=== PATIENT | male | born 1950 | race Caucasian/White ===

== ENCOUNTER → 2018-12-05 | Outpatient (CLI) | payer MEDICARE ==
--- NOTE | 2018-12-06 02:15 | MR ---
EXAMINATION TYPE: MR brain wo con DATE OF EXAM: 12/05/2018 COMPARISON: HISTORY: Memory Loss Standard multiplanar, multisequence MRI departmental protocol Multiplanar, multisequence images of the brain were acquired. Diffusion weighted imaging was performe d. FINDINGS: There is cerebral cortical atrophy. There is no mass effect nor midline shift. There is no sign of intracranial hemorrhage. Brainstem appears intact. There is no evidence of cortical infarct. There are scattered foci of abnormal increased signal in the white matter in both cerebral hemisphere s. Number is approximately 10. The largest measures 8 mm in the left posterior temporal lobe and 10 mm i n the right posterior frontal lobe. Most of the foci are less than 5 mm. There is no evidence of post erior fossa mass. There is mild mucosal thickening in the ethmoid sinus. IMPRESSION: Mild atrophy. Scattered white matter high signal foci are nonspecific and could relate to areas of mi crovascular ischemia or demyelinating disease. No evidence of cortical infarct.
== END | disposition home or self-care (01) ==
LOC: RADMRIMAIN 14:59
PROVIDERS: ATTEND Psychiatry & Neurology Neurology
DX: G31.9 Degenerative disease of nervous system, unspecified (principal); R90.89 Other abnormal findings on diagnostic imaging of central nervous system
CPT/HCPCS: 70551

== ENCOUNTER 2019-06-18 15:24 | Inpatient (IN) | payer MEDICARE ==
[2019-06-18] MEDS ORDERED: MORPHINE SULFATE 4 MG/ML SYRINGE IV STA (16:11)
[2019-06-18] MEDS ORDERED: SODIUM CHLORIDE 0.9% 1,000 ML IV STA (16:11)
[2019-06-18] MEDS ORDERED: ONDANSETRON 4 MG/2 ML VIAL IVP STA (16:11)
--- NOTE | 2019-06-18 16:20 | ED ---
General Adult HPI - General Chief complaint: Recheck/Abnormal Lab/Rx Stated complaint: Weakness Time Seen by Provider: 06/18/19 15:57 Source: patient, RN notes reviewed Mode of arrival: EMS Limitations: no limitations - History of Present Illness Initial comments: This a 68-year-old male presents emergency Department with chief complaint of inability to ambulate. Patient states around 6 PM last night he had this sensation that he describes as going from his head to his feet as a warm tingling feeling. Patient states that she was sitting in his chair when this happened. Patient states he was unable to get up out of his chair after he states from his knee to his feet have this tingling sensation in the patient's pain. Patient states that his been sitting in his recliner for the last 18 hours. Patient was visited by family who provided him Gatorade bottle see urinating. Patient states never any issues like this in the past. He states he normally can ambulate without assistance. He does admit that he cannot ambulate for long periods of time. Patient states the has had multiple back surgeries. Denies any bowel bladder incontinence or retention. He has no complaint abdominal pain, chest pain or palpitations. Patient has not seen a primary care physician in several years. He does not take any current medications. - Related Data Home Medications Medication Instructions Recorded Confirmed Hydrocodone/Acetaminophen [[place] 1 tab PO Q6H PRN 06/19/16 06/19/16 10-325] Previous Rx's Medication Instructions Recorded HYDROcodone/APAP 10-325MG [[place] 1 tab PO Q6H PRN #20 tab 06/19/16 10-325] Allergies Allergy/AdvReac Type Severity Reaction Status Date / Time No Known Allergies Allergy Verified 06/19/16 15:01 Review of Systems ROS Statement: Those systems with pertinent positive or pertinent negative responses have been documented in the HPI. ROS Other: All systems not noted in ROS Statement are negative. Past Medical History Additional Past Medical History / Comment(s): chronic back pain History of Any Multi-Drug Resistant Organisms: None Reported Past Surgical History: Back Surgery, Orthopedic Surgery Past Psychological History: No Psychological Hx Reported Smoking Status: Former smoker Past Alcohol Use History: Occasional Past Drug Use History: None Reported General Exam Limitations: no limitations General appearance: alert, in no apparent distress, obese Head exam: Present: atraumatic, normocephalic, normal inspection Eye exam: Present: normal appearance, PERRL, EOMI. Absent: scleral icterus, conjunctival injection, periorbital swelling ENT exam: Present: normal exam, normal oropharynx, mucous membranes moist Neck exam: Present: normal inspection, full ROM. Absent: tenderness, meningismus, lymphadenopathy Respiratory exam: Present: normal lung sounds bilaterally. Absent: respiratory distress, wheezes, rales, rhonchi, stridor Cardiovascular Exam: Present: regular rate, normal rhythm, normal heart sounds. Absent: systolic murmur, diastolic murmur, rubs, gallop, clicks GI/Abdominal exam: Present: soft, distended, normal bowel sounds, hernia (Reducible umbilical hernia). Absent: tenderness, guarding, rebound, rigid Extremities exam: Present: other (Lower extremities are noted have mild swelling pupils equal bilaterally, equal color equal warmth patient is able to have full range of motion strength 4/5) Neurological exam: Present: alert, oriented X3, CN II-XII intact, reflexes normal. Absent: motor sensory deficit Skin exam: Present: warm, dry, intact, normal color. Absent: rash Course Vital Signs 06/18/19 06/18/19 06/18/19 15:29 17:28 18:29 Temperature 98.3 F Pulse Rate 78 72 78 Respiratory 18 20 18 Rate Blood Pressure 162/85 162/85 158/77 O2 Sat by Pulse 97 Oximetry 06/18/19 19:25 Temperature 99.3 F Pulse Rate 82 Respiratory 17 Rate Blood Pressure 155/78 O2 Sat by Pulse 97 Oximetry Medical Decision Making - Medical Decision Making 68-year-old presented for inability family, has been sitting is sure for greater than 16 hours. After extensive workup patient decided to inform that he is a daily drinker and he stopped drinking yesterday and this is causing his uncontrolled shaking at this time. At this time patient is unsteady is unable to ambulate even with assistance. 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 Patient will be placed on seawall and Ativan along with thiamine replacement - Lab Data Result diagrams: 06/18/19 16:50 06/18/19 16:50 Lab Results 06/18/19 06/18/19 06/18/19 Range/Units 16:50 16:50 16:50 WBC 9.1 (3.8-10.6) k/uL RBC 4.04 L (4.30-5.90) m/uL Hgb 13.7 (13.0-17.5) gm/dL Hct 40.2 (39.0-53.0) % MCV 99.4 (80.0-100.0) fL MCH 33.9 (25.0-35.0) pg MCHC 34.1 (31.0-37.0) g/dL RDW 13.5 (11.5-15.5) % Plt Count (150-450) k/uL Neutrophils % 82 % Lymphocytes % 9 % Monocytes % 7 % Eosinophils % 1 % Basophils % 0 % Neutrophils # 7.4 (1.3-7.7) k/uL Lymphocytes # 0.8 L (1.0-4.8) k/uL Monocytes # 0.7 (0-1.0) k/uL Eosinophils # 0.1 (0-0.7) k/uL Basophils # 0.0 (0-0.2) k/uL PT (9.0-12.0) sec INR (<1.2) APTT (22.0-30.0) sec Sodium 138 (137-145) mmol/L Potassium 3.4 L (3.5-5.1) mmol/L Chloride 100 (98-107) mmol/L Carbon Dioxide 26 (22-30) mmol/L Anion Gap 12 mmol/L BUN 14 (9-20) mg/dL Creatinine 1.10 (0.66-1.25) mg/dL Est GFR (CKD-EPI)AfAm 81 (>60 ml/min/1.73 sqM) Est GFR (CKD-EPI)NonAf 70 (>60 ml/min/1.73 sqM) Glucose 100 H (74-99) mg/dL Plasma Lactic Acid Gerardo 1.0 (0.7-2.0) mmol/L Calcium 9.1 (8.4-10.2) mg/dL Total Bilirubin 2.2 H (0.2-1.3) mg/dL AST 75 H (17-59) U/L ALT 42 (21-72) U/L Alkaline Phosphatase 73 (38-126) U/L Creatine Kinase 616 H (55-170) U/L Total Protein 6.8 (6.3-8.2) g/dL Albumin 4.0 (3.5-5.0) g/dL Amylase 31 (30-110) U/L Lipase 163 (23-300) U/L Urine Color Urine Appearance (Clear) Urine pH (5.0-8.0) Ur Specific [place] (1.001-1.035) Urine Protein (Negative) Urine Glucose (UA) (Negative) Urine Ketones (Negative) Urine Blood (Negative) Urine Nitrite (Negative) Urine Bilirubin (Negative) Urine Urobilinogen (<2.0) mg/dL Ur Leukocyte Esterase (Negative) Urine RBC (0-5) /hpf Urine WBC (0-5) /hpf Ur Squamous Epith Cells (0-4) /hpf Amorphous Sediment (None) /hpf Urine Bacteria (None) /hpf Hyaline Casts (0-2) /lpf Urine Mucus (None) /hpf 06/18/19 06/18/19 Range/Units 16:50 19:25 WBC (3.8-10.6) k/uL RBC (4.30-5.90) m/uL Hgb (13.0-17.5) gm/dL Hct (39.0-53.0) % MCV (80.0-100.0) fL MCH (25.0-35.0) pg MCHC (31.0-37.0) g/dL RDW (11.5-15.5) % Plt Count (150-450) k/uL Neutrophils % % Lymphocytes % % Monocytes % % Eosinophils % % Basophils % % Neutrophils # (1.3-7.7) k/uL Lymphocytes # (1.0-4.8) k/uL Monocytes # (0-1.0) k/uL Eosinophils # (0-0.7) k/uL Basophils # (0-0.2) k/uL PT 10.7 (9.0-12.0) sec INR 1.0 (<1.2) APTT 24.9 (22.0-30.0) sec Sodium (137-145) mmol/L Potassium (3.5-5.1) mmol/L Chloride (98-107) mmol/L Carbon Dioxide (22-30) mmol/L Anion Gap mmol/L BUN (9-20) mg/dL Creatinine (0.66-1.25) mg/dL Est GFR (CKD-EPI)AfAm (>60 ml/min/1.73 sqM) Est GFR (CKD-EPI)NonAf (>60 ml/min/1.73 sqM) Glucose (74-99) mg/dL Plasma Lactic Acid Gerardo (0.7-2.0) mmol/L Calcium (8.4-10.2) mg/dL Total Bilirubin (0.2-1.3) mg/dL AST (17-59) U/L ALT (21-72) U/L Alkaline Phosphatase (38-126) U/L Creatine Kinase (55-170) U/L Total Protein (6.3-8.2) g/dL Albumin (3.5-5.0) g/dL Amylase (30-110) U/L Lipase (23-300) U/L Urine Color Yellow Urine Appearance Clear (Clear) Urine pH 5.5 (5.0-8.0) Ur Specific [place] 1.015 (1.001-1.035) Urine Protein 1+ H (Negative) Urine Glucose (UA) Negative (Negative) Urine Ketones 2+ H (Negative) Urine Blood Large H (Negative) Urine Nitrite Negative (Negative) Urine Bilirubin Negative (Negative) Urine Urobilinogen <2.0 (<2.0) mg/dL Ur Leukocyte Esterase Negative (Negative) Urine RBC 95 H (0-5) /hpf Urine WBC 2 (0-5) /hpf Ur Squamous Epith Cells <1 (0-4) /hpf Amorphous Sediment Occasional H (None) /hpf Urine Bacteria Occasional H (None) /hpf Hyaline Casts 4 H (0-2) /lpf Urine Mucus Rare H (None) /hpf Disposition Clinical Impression: Alcohol withdrawal, Elevated creatine kinase, Dehydration, Unable to ambulate Disposition: ADMITTED IP TO THIS [facility] Condition: Fair Referrals: None,Stated [Primary Care Provider] - 1-2 days
[2019-06-18 17:05] LABS: Basophils % (A) 0 %; Eosinophils # (A) 0.1 k/uL (0-0.7); Eosinophils % (A) 1 %; HCT 40.2 % (39.0-53.0); HGB 13.7 gm/dL (13.0-17.5); Lymphocytes # (A) 0.8 k/uL (1.0-4.8); Lymphocytes % (A) 9 %; MCH 33.9 pg (25.0-35.0); MCHC 34.1 g/dL (31.0-37.0); MCV 99.4 fL (80.0-100.0); Mean Platelet Volume 10.4; Monocytes # (A) 0.7 k/uL (0-1.0); Monocytes % (A) 7 %; Neutrophils # (A) 7.4 k/uL (1.3-7.7); Neutrophils % (A) 82 %; RBC 4.04 m/uL (4.30-5.90); RDW 13.5 % (11.5-15.5); WBC 9.1 k/uL (3.8-10.6)
[2019-06-18 17:12] LABS: Calcium 9.1 mg/dL (8.4-10.2); Potassium 3.4 mmol/L (3.5-5.1); Total Bilirubin 2.2 mg/dL (0.2-1.3); Total Protein 6.8 g/dL (6.3-8.2)
[2019-06-18 17:16] LABS: Partial Thromboplastin Time 24.9 sec (22.0-30.0); Prothrombin Time 10.7 sec (9.0-12.0)
--- NOTE | 2019-06-18 18:36 | XR ---
EXAMINATION TYPE: XR lumbar spine 2 or 3V DATE OF EXAM: 06/18/2019 COMPARISON: NONE HISTORY: Leg weakness TECHNIQUE: 3 views FINDINGS: Vertebra have normal alignment. Disc spaces are narrowed. There is degenerative spurring of the endplates. Posterior elements are intact. There is no compression fracture. Sacroiliac joints ap pear intact. IMPRESSION: Moderate multilevel spondylotic changes. No fracture seen.
[2019-06-18 19:40] LABS: Amorphous Sediment,Urine Occasional /hpf; Appearance,Urine Clear (Clear); Bacteria,Urine Occasional /hpf; Bilirubin,Urine Negative (Negative); Blood,Urine Large (Negative); Color,Urine Yellow; Glucose,Urine (UA) Negative (Negative); Hyaline Casts,Urine 4 /lpf (0-2); Ketones,Urine 2+ (Negative); Leukocyte Esterase,Urine Negative (Negative); Mucus,Urine Rare /hpf; Nitrite,Urine Negative (Negative); PH, Urine 5.5 (5.0-8.0); Protein,Urine 1+ (Negative); RBC,Urine 95 /hpf (0-5); Specific Gravity,Urine 1.015 (1.001-1.035); Squamous Epithelial Cell,Urine <1 /hpf (0-4); Urobilinogen,Urine <2.0 mg/dL (<2.0)
[2019-06-18] MEDS ORDERED: THIAMINE 100 MG/ML 2 ML VIAL IM STA (19:58)
[2019-06-18] MEDS ORDERED: LORazepam 2 MG/ML INJ IV PRN (19:58)
[2019-06-18] MEDS ORDERED: NALOXONE 0.4 MG/ML 1 ML VIAL IV PRN (20:02)
[2019-06-18] MEDS ORDERED: ONDANSETRON 4 MG/2 ML VIAL IVP PRN (20:02)
[2019-06-18] MEDS ORDERED: MORPHINE SULFATE 4 MG/ML SYRINGE IV PRN (20:02)
[2019-06-18] MEDS: LORazepam 2 MG/ML INJ IV PRN (20:20)
[2019-06-18] MEDS ORDERED: SODIUM CHLORIDE 0.9% 1,000 ML with MVI, ADULT NO.4 WITH VIT K 10 ML, THIAMINE 100 MG, F... IV ONE ×4 (20:30)
[2019-06-19] MEDS: SODIUM CHLORIDE 0.9% 1,000 ML IV SCH ×4 (00:10→20:21)
[2019-06-19] MEDS: THIAMINE 100 MG TAB PO SCH ×3 (00:17→17:25)
[2019-06-19] MEDS: LORazepam 2 MG/ML INJ IV PRN ×6 (00:18→17:26)
[2019-06-19] MEDS ORDERED: POTASSIUM CHLORIDE ER 20 MEQ TAB.ER PO STA (09:21)
[2019-06-19] MEDS: FOLIC ACID 1 MG TAB PO SCH (09:28)
[2019-06-19] MEDS: NON FORMULARY DRUG (Vitamin B Complex [Vitamin B Complex] 1 CAP) PO SCH (09:29)
[2019-06-19] MEDS: amLODIPine 5 MG TAB PO SCH ×2 (09:29→09:39)
[2019-06-19] MEDS: CHOLECALCIFEROL 1,000 UNIT TAB PO SCH (09:29)
[2019-06-19] MEDS ORDERED: RX INFO: IV CONTRAST WAS GIVEN 1 EACH MISC MISCELLANE PRN (10:29)
[2019-06-19] MEDS ORDERED: TEMAZEPAM 15 MG CAP PO PRN (12:31)
[2019-06-19] MEDS: HYDROcodone/APAP 5-325MG 1 EACH TAB PO PRN ×2 (12:37→20:20)
--- NOTE | 2019-06-19 13:46 | US ---
EXAMINATION TYPE: US carotid duplex BILAT DATE OF EXAM: 06/19/2019 COMPARISON: NONE CLINICAL HISTORY: stroke. TIA EXAM MEASUREMENTS: RIGHT: Peak Systolic Velocity (PSV) cm/sec ----- Right CCA: 41.6 ----- Right ICA: 160.8 ----- Right ECA: 70.7 ICA/CCA ratio: 3.9 RIGHT: End Diastole cm/sec ----- Right CCA: 0 ----- Right ICA: 30.7 ----- Right ECA: 11.1 LEFT: Peak Systolic Velocity (PSV) cm/sec ----- Left CCA: 64.2 ----- Left ICA: 82.3 ----- Left ECA: 78.4 ICA/CCA ratio: 1.3 LEFT: End Diastole cm/sec ----- Left CCA: 17.6 ----- Left ICA: 21.5 ----- Left ECA: 12.4 VERTEBRALS (direction of flow): Right Vertebral: Antegrade Left Vertebral: Antegrade Rhythm: Normal Right ICA vessels drive deep. No significant stenosis seen IMPRESSION: 1. There is a 50-70% stenosis involving the proximal right ICA. Abnormal waveforms noted. Recommend c orrelation with CTA or MRA of the carotid arteries. Criteria for Assigning % of Stenosis / Diameter reduction (Estimation based on the indirect measurements of the internal carotid artery velocities (ICA PSV). 1. Normal (no stenosis)=ICA PSV < 125 cm/s: ratio < 2.0: ICA EDV<40 cm/s. 2. Less than 50% stenosis=ICA PSV < 125 cm/s: ratio < 2.0: ICA EDV<40 cm/s. 3. 50 to 69% stenosis=ICA PSV of 125 to 230 cm/s: ration 2.0 ? 4.0: ICA EDV 40-100 cm/s. 4. Greater than 70% stenosis to near occlusion= ICA PSV > 230 cm/s: ratio > 4.0: ICA EDV > 100 cm/s. 5. Near occlusion= ICA PSV velocities may be low or undetectable: variable ratio and ICA EDV. 6. Total occlusion=unable to detect flow.
--- NOTE | 2019-06-19 14:42 | CT ---
EXAMINATION TYPE: CT brain w con DATE OF EXAM: 06/19/2019 COMPARISON: None HISTORY: Neuro Defects CT DLP: 1227 mGycm Automated exposure control for dose reduction was used. CONTRAST: CT scan of the head is performed with IV Contrast, patient injected with 100 mL of Isovue 300. Helica l through the brain FINDINGS: There is no abnormal enhancing mass or midline shift identified. The ventricles and sulci are within normal limits in size. The globes are intact and the visualized sinuses are clear. Mild cortical at rophy is likely age-related. Periventricular white matter low-attenuation is noted. IMPRESSION: Negative contrast enhanced head CT exam. Age-related atrophy and probable chronic small vessel ischem ia.
--- NOTE | 2019-06-19 15:22 | HP ---
HISTORY AND PHYSICAL DATE OF SERVICE: 06/19/2019. CHIEF COMPLAINTS: Weakness. HISTORY OF PRESENT ILLNESS: This is a 68-year-old gentleman with a past medical history of multiple medical problems including history of hypertension, history of EtOH abuse, back surgery, DJD, not being followed by any primary physician in the outpatient setting, was drinking heavily, but the patient stopped alcohol about 3 - 4 days ago. Patient is complaining of weak and the patient also tingling feeling in the feet, and the patient came to [facility], admitted for evaluation and treatment. Patient is slightly tremulous. There is no history of fever or rigors. There is no history of headache, loss or consciousness or seizures at this time. The initial evaluation including CAT scan of the spine is pending at this time. There is no history of fever. PAST MEDICAL HISTORY: History of EtOH, hypertension, chronic back pain, DJD. MEDICATIONS: Prior to admission home medications are: 1. Vitamin B complex 1 p.o. daily. 2. Vitamin D3 one thousand daily. ALLERGIES: None. FAMILY HISTORY: No history of heart disease or strokes in the family. SOCIAL HISTORY: No history of smoking, alcohol as mentioned. REVIEW OF SYSTEMS: ENT: Diminished hearing, diminished vision. CARDIOVASCULAR: No angina or palpitations. RESPIRATORY: As mentioned earlier. GI: No nausea. : No dysuria. NERVOUS SYSTEMS: No numbness or weakness. ALLERGY/IMMUNOLOGY: No asthma or hayfever. MUSCULOSKELETAL: As mentioned earlier. HEMATOLOGY: No history of anemia. ENDOCRINE: No history of diabetes or hypothyroidism. CONSTITUTIONAL: As mentioned earlier. DERMATOLOGY: Negative. RHEUMATOLOGY: Negative. PSYCHIATRY: As mentioned earlier. PHYSICAL EXAMINATION: Alert and oriented x3, pulse 77, blood pressure 188/78, respiration 20, temp 98.2, pulse ox 98% on room air. HEENT: Conjunctivae normal. NECK: No jugular venous distension. CARDIOVASCULAR SYSTEM: S1, S2, muffled. RESPIRATION: Breath sounds diminished on the bases, no rhonchi, no crackles. ABDOMEN: Soft, nontender. No mass palpable, obese. LEGS: No edema, no swelling. NERVOUS SYSTEM: Mild diffuse weakness. LYMPHATICS: No lymph node enlargement in the neck or axillae. SKIN: No ulcer, rash or bleeding. JOINTS: No active deforming arthropathy. LABS: WBC is 9.2, hemoglobin is 13.7 sodium 130, potassium 3.4. Bilirubin is 2.2, AST is 75. ASSESSMENT: 1. Acute delirium tremens, possibly secondary to alcohol withdrawal. 2. Weakness, rule out transient ischemic attack. 3. Alcoholic hepatitis with elevated bilirubin and as well as AST. 4. Mild rhabdomyolysis, the creatinine kinase is 16. 5. Mild hypokalemia. 6. Hypertension. 7. Obesity, body mass index 42. 8. History of chronic back pain. 9. Degenerative joint disease. 10.History of laminectomy. RECOMMENDATION: In this 68-year-old gentleman who presented with multiple complex medical issues, will monitor the patient closely. Continue with the current medications, symptomatic management and CIWA protocol. Otherwise, alcohol withdrawal precaution, DT precautions. Neurology evaluation, neurovascular workup. Prognosis guarded because of multiple complex medical issues. Further recommendations to follow. Also recommend the patient to alcohol cessation and follow with primary physician in the outpatient setting. Also further recommendations to follow. See orders for details. MMODL / IJN: [id number] /
[2019-06-19] MEDS ORDERED: cloNIDine HCL 0.1 MG TAB PO PRN (16:56)
[2019-06-19] MEDS: cloNIDine HCL 0.1 MG TAB PO SCH ×2 (17:25→22:24)
[2019-06-19] MEDS: HEPARIN SODIUM,PORCINE 5,000 UNIT/ML 1 ML VIAL SQ SCH (20:20)
--- NOTE | 2019-06-19 22:55 | P.CNNES ---
History of Present Illness Consult date: 06/19/19 Reason for Consult: Change in neurologic status Chief complaint: b/l LE weakness History of Present Illness: HISTORY OF PRESENT ILLNESS: Thank you for allowing me to evaluate Mr. Milton Navarro. Mr. Navarro is a 68-year-old male with past medical history of chronic back pain, presenting to [facility] with chief complaint of inability to ambulate and warm/tingling feeling from his head down to his feet, consulted neurology for LE weakness. Patient states that last night, he was about to sit on a chair when he suddenly had a sensation of "veil coming over me" from head down to the toes. This sensation went away within seconds, but when he tried to stand to walk it off, he realized that he couldn't stand up. Patient has never had similar symptoms in the past. Did not lose consciousness, had any urinary/bowel incontinence, headache, double/blurry vision, no abnormal movement of his extremities. Patient reports that he's been having numbness in his b/l LE, up to the mid-hanks area since about 1.5 years ago. He had looked it up online and thought maybe it was alcoholic neuropathy. PAST MEDICAL HISTORY: chronic back pain PAST SURGICAL HISTORY: Back surgery HOME MEDICATIONS: Vitamin D3, vitamin B complex ALLERGIES: NKDA SOCIAL HISTORY: Former smoker. Endorses EtOH abuse history and current EtOH abuse. Last EtOH intake about 1 week ago on 06/12/19. Drank 5 bottles of 24-oz 8% beer everyday. Denies any history of seizures or being intubated with EtOH withdrawal. Denies any drug abuse history. PHYSICAL EXAMINATION: VITAL SIGNS: T 98.6 HR 79 RR 20 BP 151/82 O2 sat 99% on RA GEN.: NAD, pleasant and cooperative but anxious HEENT: NCAT, sclera without icterus NECK: Supple SKIN AND EXTREMITIES: Warm to touch, no edema NEURO: MENTAL STATUS: Patient alert and oriented to self, place, time. Able to name the current president. Speech fluent, able to name and repeat, following all commands readily. No right and left disorientation, neglect. CRANIAL NERVES II THROUGH XII: II: Pupils are equal and reactive to light sy mmetrically. No afferent pupillary defect. Visual dooley are intact. III, IV, : No ptosis. Extraocular movements full. No nystagmus. V: Facial sensation intact from V1-3. VII. No clear facial asymmetry. VIII: Hearing intact to finger rub bilaterally. IX, X: Symmetric palate elevation. XI: Shoulder shrug intact. XII: Tongue midline without fasciculation or atrophy. MOTOR: Normal bulk/tone. No pronator drift. Tremor present in b/l UE. Able to lift b/l proximal and distal LE against gravity but difficulty standing up or taking any steps forward. SENSORY: Decreased to light touch in b/l LE below the mid hanks. REFLEXES: 1+ throughout. Toes are downgoing. COORDINATION: Finger to nose intact. No dysmetria. GAIT: Able to stand while using walker as support but still with significant difficulty. DIAGNOSTIC TESTING: LABORATORY: WBC 9.1 hemoglobin 13.7 PT 10.7 INR 1.0 sodium 138 potassium 3.4 chloride 100 bicarb 26 BUN 14 creatinine 1.10 glucose 100 AST 75 ALT 42 alk phos 73 CK 616 urinalysis large blood, 2+ ketones IMAGING: CT head with contrast 06/19/2019: Negative study. Age-related atrophy and small vessle disease. MRI brain without contrast 12/06/2018: Mild atrophy. Scattered white matter high signal foci are nonspecific and could relate areas of microvascular ischemia or demyelinating disease. No evidence of cortical infarct. ASSESSMENT: Mr. Navarro is a 68-year-old male with past medical history of chronic back pain, presenting to [facility] with chief complaint of inability to ambulate and warm/tingling feeling from his head down to his feet, consulted neurology for LE weakness. Difficult to come up with an assessment for patient's report of "veil coming down." Patient did not have any seizure-like symptoms and no LOC. Patient with more proximal than distal LE weakness. High on the differential at this time is myopathy, and differential for myopathy include inflammatory (such as polymyositis, dermatomyositis, inclusion body myositis), infection, toxic (such as steroids, statins, EtOH, amiodarone, etc) and systemic (such as thyroid disorder, autoimmune, amyloid). highest on my differential at this time is toxic myopathy from EtOH abuse. RECOMMENDATIONS: 1. Will order ESR, CRP, CK, KASIE, RF, TSH, LFT, parathyroid hormone 2. Patient will need follow up with neurology within 1-2 weeks of discharge, especially for EMG/NCS and muscle biopsy 3. Neurology will continue to follow. Past Medical History Past Medical History: Hypertension Additional Past Medical History / Comment(s): EtOH abuse, chronic back pain History of Any Multi-Drug Resistant Organisms: None Reported Past Surgical History: Back Surgery, Orthopedic Surgery, Tonsillectomy Additional Past Surgical History / Comment(s): 3 back laminectomies, hand surgery s/p trauma to reattatch tendons Past Anesthesia/Blood Transfusion Reactions: No Reported Reaction Past Psychological History: No Psychological Hx Reported Smoking Status: Never smoker Past Alcohol Use History: Occasional Past Drug Use History: None Reported Medications and Allergies Home Medications Medication Instructions Recorded Confirmed Type Cholecalciferol [Vitamin D3 (25 1,000 unit PO DAILY 06/18/19 06/18/19 History Mcg = 1000 Iu)] Vitamin B Complex 1 cap PO DAILY 06/18/19 06/18/19 History Allergies Allergy/AdvReac Type Severity Reaction Status Date / Time No Known Allergies Allergy Verified 06/18/19 21:29 Physical Examination - Vital Signs Vital Signs: Vital Signs Temp Pulse Pulse Resp BP BP Pulse Ox 06/19/19 12:46 98.6 F 79 20 151/82 99 06/19/19 05:00 98.2 F 77 20 188/78 98 06/19/19 00:10 75 16 06/18/19 23:42 98.4 F 75 16 161/93 97 06/18/19 22:49 97.6 F 83 19 167/82 98 06/18/19 21:10 80 19 156/84 97 06/18/19 20:12 77 20 140/79 97 06/18/19 19:25 99.3 F 82 17 155/78 97 06/18/19 18:29 78 18 158/77 06/18/19 17:28 72 20 162/85 06/18/19 15:29 98.3 F 78 18 162/85 97 Intake and Output 06/18/19 06/19/19 06/19/19 22:59 06:59 14:59 Intake Total 500 Balance 500 Intake: Intake, IV Titration 500 Amount Sodium Chloride 0.9% 1, 500 000 ml @ 100 mls/hr IV . Q10H7M ONE with Mvi, Adult No.4 with Vit K 10 ml with Thiamine 100 mg with Folic Acid 1 mg Rx#: [id number] Other: Voiding Method Urinal Urinal # Voids 2 Weight 140.614 kg Results - Laboratory Findings CBC and BMP: 06/18/19 16:50 06/18/19 16:50 Abnormal Lab Findings: Abnormal Labs 06/18/19 06/18/19 06/18/19 16:50 16:50 19:25 RBC 4.04 L Lymphocytes # 0.8 L Potassium 3.4 L Glucose 100 H Total Bilirubin 2.2 H AST 75 H Creatine Kinase 616 H Urine Protein 1+ H Urine Ketones 2+ H Urine Blood Large H Urine RBC 95 H Amorphous Sediment Occasional H Urine Bacteria Occasional H Hyaline Casts 4 H Urine Mucus Rare H
[2019-06-20] MEDS: HYDROcodone/APAP 5-325MG 1 EACH TAB PO PRN ×2 (05:28→11:54)
[2019-06-20 07:53] LABS: Basophils % (A) 0 %; Eosinophils # (A) 0.1 k/uL (0-0.7); Eosinophils % (A) 1 %; HGB 12.7 gm/dL (13.0-17.5); Lymphocytes # (A) 0.8 k/uL (1.0-4.8); Lymphocytes % (A) 9 %; MCH 33.6 pg (25.0-35.0); MCHC 32.6 g/dL (31.0-37.0); Macrocytosis Slight; Mean Platelet Volume 9.7; Monocytes # (A) 0.7 k/uL (0-1.0); Monocytes % (A) 8 %; Neutrophils # (A) 6.2 k/uL (1.3-7.7); Neutrophils % (A) 79 %; Platelet Count 54 k/uL (150-450); RBC 3.79 m/uL (4.30-5.90); RDW 13.8 % (11.5-15.5)
[2019-06-20 08:29] LABS: African American GFR (CKD) >90 (>60 ml/min/1.73 sqM); Anion Gap 4 mmol/L; Blood Urea Nitrogen 15 mg/dL (9-20); Calcium 8.3 mg/dL (8.4-10.2); Carbon Dioxide 29 mmol/L (22-30); Chloride 104 mmol/L (98-107); Glucose 126 mg/dL (74-99); Potassium 3.3 mmol/L (3.5-5.1); Sodium 137 mmol/L (137-145)
[2019-06-20] MEDS: amLODIPine 5 MG TAB PO SCH (08:37)
[2019-06-20] MEDS: cloNIDine HCL 0.1 MG TAB PO SCH ×3 (08:37→21:55)
[2019-06-20] MEDS: PANTOPRAZOLE 40 MG TABLET PO SCH (08:37)
[2019-06-20] MEDS: HEPARIN SODIUM,PORCINE 5,000 UNIT/ML 1 ML VIAL SQ SCH ×2 (08:38→21:56)
[2019-06-20] MEDS: FOLIC ACID 1 MG TAB PO SCH (08:38)
[2019-06-20] MEDS: SODIUM CHLORIDE 0.9% 1,000 ML IV SCH ×2 (08:38→11:54)
[2019-06-20] MEDS: THIAMINE 100 MG TAB PO SCH ×2 (08:38→16:17)
[2019-06-20] MEDS: CHOLECALCIFEROL 1,000 UNIT TAB PO SCH (08:38)
[2019-06-20] MEDS: NON FORMULARY DRUG (Vitamin B Complex [Vitamin B Complex] 1 CAP) PO SCH (08:39)
[2019-06-20 09:17] LABS: C Reactive Protein 36.6 mg/L (<10.0)
[2019-06-20 10:13] VITALS: BMI 42.0
[2019-06-20 10:53] LABS: T4, Free (Free Thyroxine) 1.01 ng/dL (0.78-2.19)
--- NOTE | 2019-06-20 12:01 | ECHOF ---
Referral Reason:Stroke MEASUREMENTS -------- HEIGHT: 180.3 cm WEIGHT: 140.6 kg BP: Ao Diam: 3.7 cm (2.0 - 3.7) AV Cusp: 2.3 cm (1.5 - 2.6) LA Diam: 3.6 cm (2.7 - 3.8) MV EXCURSION: 20.304 mm (> 18.000) MV EF SLOPE: 179 mm/s (70 - 150) EPSS: 0.9 cm MV E Malachi: 0.63 m/s MV DecT: 226 ms MV A Malachi: 0.66 m/s MV E/A Ratio: 0.95 RAP: 5.00 mmHg RVSP: 11.24 mmHg FINDINGS -------- Sinus rhythm. This was a technically difficult study with suboptimal views. Grossly normal LV size and systolic function. Unable to comment on regional wall motion. The RV was not well visualized. The left atrium was not well visualized. The right atrium was not well visualized. Lumason used The aortic valve was not well visualized. The mitral valve was not well visualized. The tricuspid valve was not well visualized. The pulmonic valve was not well visualized. CONCLUSIONS -------- 1. Sinus rhythm. 2. This was a technically difficult study with suboptimal views. 3. Grossly normal LV size and systolic function. Unable to comment on regional wall motion. 4. The RV was not well visualized. 5. The left atrium was not well visualized. 6. The right atrium was not well visualized. 7. Lumason used 8. The aortic valve was not well visualized. 9. The mitral valve was not well visualized. 10. The tricuspid valve was not well visualized. 11. The pulmonic valve was not well visualized. FLAVORING MACHINE OPERATOR: Angelita Grimaldo RDCS
[2019-06-20] MEDS ORDERED: POTASSIUM CHLORIDE ER 20 MEQ TAB.ER PO STA (12:27)
[2019-06-20] MEDS: MULTIVITAMINS, THERA 1 EACH TAB PO SCH (12:28)
[2019-06-20] MEDS: LORazepam 1 MG TAB PO PRN (13:13)
[2019-06-20] MEDS: LORazepam 2 MG/ML INJ IV PRN ×2 (13:41→16:17)
[2019-06-20] MEDS: 0.9% NACL WITH KCL 40 MEQ/L 1,000 ML IV SCH (14:58)
--- NOTE | 2019-06-20 16:52 | PN ---
PROGRESS NOTE DATE OF SERVICE: 06/20/2019 This 68-year-old gentleman who was admitted with acute alcohol withdrawal symptoms and delirium tremens is going through active DTs. Patient is confused, combative and restless. CIWA protocol has been given at this time. A 2D echo with Doppler was done which showed grossly normal LV. The details could not be estimated because of an incomplete study. Otherwise the patient is being closely monitored at this time. Hemoglobin is 12.7, potassium 3.3. UA has some hematuria. Past medical history reviewed. Review of systems could not be taken; the patient is confused at this time. CURRENT MEDICATIONS: Reviewed. They include: 1. [employer] 5 mg q.6 p.r.n. 2. Norvasc 5 mg p.o. daily. 3. Vitamin D3 1000 daily. 4. Catapres 0.1 p.r.n. and 0.1 p.o. t.i.d. 5. Folic acid 1 mg p.o. daily. 6. Heparin 5000 units subcutaneously b.i.d. 7. Ativan p.r.n. per [facility] protocols. 8. Narcan p.r.n. 9. Zofran. 10.Protonix. 11.Restoril. 12.Vitamin B1. PHYSICAL EXAMINATION: Patient is conscious but confused. The patient is hallucinating actively. Pulse 66, blood pressure 167/72, respiration 22, temperature 98.8, pulse ox 98% on room air. HEENT: Conjunctivae normal. NECK: No jugular venous distention. CARDIOVASCULAR SYSTEM: S1, S2 muffled. RESPIRATORY SYSTEM: Breath sounds diminished at the bases. No rhonchi. No crackles. ABDOMEN: Soft, non-tender. No mass palpable. LEGS: No edema. No swelling. NERVOUS SYSTEM: Higher functions as mentioned earlier. Moves all 4 limbs. No focal motor or sensory deficit. LYMPHATICS: No lymph node palpable in neck, axillae or groin. SKIN: No ulcer, rash, bleeding. JOINTS: No active deforming arthropathy. LABS: WBC 8, hemoglobin 12.7. Sodium 137, potassium 3.3. ASSESSMENT: 1. Acute delirium tremens, possibly secondary to alcohol withdrawal. 2. Weakness; possible transient ischemic attack. 3. Alcoholic hepatitis with elevated bilirubin as well as AST. 4. Mild rhabdomyolysis with creatine kinase mildly elevated. 5. Mild hypokalemia. 6. Hypertension. 7. Obesity with body mass index of 42. 8. History of chronic back pain. 9. Degenerative joint disease. 10.History of laminectomy. RECOMMENDATIONS AND DISCUSSION: In this 68-year-old gentleman who presented with multiple complex medical issues, we will monitor the patient closely, continue the current medications, continue with symptomatic treatment. Potassium supplementation. Otherwise, follow closely with Neurology. DVT prophylaxis. Supplement potassium. Otherwise, continue with CIWA protocol. Multivitamins and supplements to be continued. 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 Guarded prognosis because of multiple complex medical issues. Further recommendations to follow. MMODL / IJN: [id number] /
[2019-06-20 17:43] LABS: Rheumatoid Factor 4 IU/mL (0-15)
--- NOTE | 2019-06-20 21:13 | P.PN ---
Progress Note - Text Progress Note Date: 06/20/19 SUBJECTIVE/INTERVAL EVENTS: Patient found with blood all over his body (patient had pulled his IV). He states that he cut himself, and he was thinking that someone was trying to hurt/steal from him (patient's bed was just changed). Patient slightly confused compared to yesterday where he thought he was home tonight. Patient is still following all commands. PHYSICAL EXAMINATION: VITAL SIGNS: T 98.8 HR 66 RR 22 BP 167/72 O2 sat 98% on RA GEN.: NAD, pleasant and cooperative but anxious HEENT: NCAT, sclera without icterus NECK: Supple SKIN AND EXTREMITIES: Warm to touch, no edema NEURO: MENTAL STATUS: Patient alert and oriented to self and time. Confused about where he is. Able to name the current president. Speech fluent, able to name and repeat, following all commands readily. No right and left disorientation, neglect. CRANIAL NERVES II THROUGH XII: III, IV, : No ptosis. Extraocular movements full. VII. No clear facial asymmetry. XI: Shoulder shrug intact. XII: Tongue midline without fasciculation or atrophy. MOTOR: Normal bulk/tone. No pronator drift. Tremor present in b/l UE. Moving all 4 extremities, able to move b/l LE against gravity DIAGNOSTIC TESTING: LABORATORY: WBC 9.1 hemoglobin 13.7 PT 10.7 INR 1.0 sodium 138 potassium 3.4 chloride 100 bicarb 26 BUN 14 creatinine 1.10 glucose 100 AST 75 ALT 42 alk phos 73 CK 616 urinalysis large blood, 2+ ketones CK 616 CRP 36.6 ESR 10 TSH 5.410 fT4 1.01 PTH 39.5 KASIE negative RF 4 IMAGING: CT head with contrast 06/19/2019: Negative study. Age-related atrophy and small vessel disease. MRI brain without contrast 12/06/2018: Mild atrophy. Scattered white matter high signal foci are nonspecific and could relate areas of microvascular ischemia or demyelinating disease. No evidence of cortical infarct. ASSESSMENT: Mr. Navarro is a 68-year-old male with past medical history of chronic back pain, presenting to [facility] with chief complaint of inability to ambulate and warm/tingling feeling from his head down to his feet, consulted neurology for LE weakness. Difficult to come up with an assessment for patient's report of "veil coming down." Patient did not have any seizure-like symptoms and no LOC. Patient with more proximal than distal LE weakness. High on the differential at this time is myopathy, and differential for myopathy include inflammatory (such as polymyositis, dermatomyositis, inclusion body myositis), infection, toxic (such as steroids, statins, EtOH, amiodarone, etc) and systemic (such as thyroid disorder, autoimmune, amyloid). highest on my differential at this time is toxic myopathy from EtOH abuse. With an acute episode following a binge, the symptoms usually resolve within a week or two. Chronic myopathy, where damage is more severe, can take much longer to resolve, requiring weeks or even months for the muscles to recover function. RECOMMENDATIONS: 1. EtOH withdrawal management by primary team including seizure precaution 2. Delirium precaution with sleep hygiene, frequent orientation 3. Patient will need follow up with neurology within 1-2 weeks of discharge, for consideration of EMG/NCS and muscle biopsy 4. Neurology will sign off at this time. Please feel free to contact Neurology again if with additional questions or concerns.
[2019-06-21] MEDS: LORazepam 1 MG TAB PO PRN ×2 (02:29→08:14)
[2019-06-21] MEDS: 0.9% NACL WITH KCL 40 MEQ/L 1,000 ML IV SCH ×3 (03:47→19:41)
[2019-06-21] MEDS: LORazepam 2 MG/ML INJ IV PRN ×3 (04:00→19:40)
[2019-06-21] MEDS: PANTOPRAZOLE 40 MG TABLET PO SCH (08:14)
[2019-06-21] MEDS: THIAMINE 100 MG TAB PO SCH ×2 (08:14→17:24)
[2019-06-21] MEDS: CHOLECALCIFEROL 1,000 UNIT TAB PO SCH (08:14)
[2019-06-21] MEDS: amLODIPine 5 MG TAB PO SCH (08:14)
[2019-06-21] MEDS: cloNIDine HCL 0.1 MG TAB PO SCH ×3 (08:14→20:44)
[2019-06-21] MEDS: FOLIC ACID 1 MG TAB PO SCH (08:14)
[2019-06-21] MEDS: HEPARIN SODIUM,PORCINE 5,000 UNIT/ML 1 ML VIAL SQ SCH ×2 (08:15→20:44)
[2019-06-21] MEDS: NON FORMULARY DRUG (Vitamin B Complex [Vitamin B Complex] 1 CAP) PO SCH (08:15)
[2019-06-21 08:42] LABS: Basophils % (A) 1 %; Eosinophils # (A) 0.1 k/uL (0-0.7); Eosinophils % (A) 1 %; HCT 37.5 % (39.0-53.0); HGB 12.5 gm/dL (13.0-17.5); Lymphocytes # (A) 0.7 k/uL (1.0-4.8); Lymphocytes % (A) 10 %; MCH 34.1 pg (25.0-35.0); MCHC 33.4 g/dL (31.0-37.0); MCV 102.1 fL (80.0-100.0); Macrocytosis Slight; Mean Platelet Volume 7.3; Monocytes # (A) 0.6 k/uL (0-1.0); Monocytes % (A) 8 %; Neutrophils % (A) 78 %; RBC 3.67 m/uL (4.30-5.90); RDW 13.7 % (11.5-15.5); WBC 7.7 k/uL (3.8-10.6)
[2019-06-21 08:49] LABS: Platelet Count 102 k/uL (150-450)
[2019-06-21 08:54] LABS: African American GFR (CKD) >90 (>60 ml/min/1.73 sqM); Anion Gap 4 mmol/L; Blood Urea Nitrogen 11 mg/dL (9-20); Calcium 8.4 mg/dL (8.4-10.2); Carbon Dioxide 28 mmol/L (22-30); Chloride 105 mmol/L (98-107); Glucose 116 mg/dL (74-99); Potassium 3.2 mmol/L (3.5-5.1); Sodium 137 mmol/L (137-145)
[2019-06-21] MEDS: MULTIVITAMINS, THERA 1 EACH TAB PO SCH (12:11)
[2019-06-21] MEDS ORDERED: Potassium Replacement Protocol 1 EACH MISC MISCELLANE PRN (13:58)
[2019-06-21] MEDS: POTASSIUM CHLORIDE ER 20 MEQ TAB.ER PO SCH ×4 (14:28→21:58)
[2019-06-21] MEDS: HYDROcodone/APAP 5-325MG 1 EACH TAB PO PRN (14:30)
--- NOTE | 2019-06-21 17:27 | XR ---
EXAMINATION TYPE: XR abdomen 2V DATE OF EXAM: 06/21/2019 COMPARISON: NONE HISTORY: Abdominal pain TECHNIQUE: 2 views supine and upright FINDINGS: There are multiple dilated gas-filled loops of bowel involving large and small bowel. There is no sign of free air. Lung bases are clear of consolidation. IMPRESSION: Dilated bowel consistent with generalized ileus. There appears to be gas down to the rect um. Mechanical obstruction not entirely excluded. No free air.
--- NOTE | 2019-06-21 21:10 | P.PN ---
Subjective Progress Note Date: 06/21/19 Principal diagnosis: Acute alcohol withdrawal symptoms Delirium Patient is a 68-year-old male admitted with acute alcohol withdrawal symptoms and DTs. Patient is combative and restless. Currently being continued alcohol withdrawal protocol. Patient was seen by neurology for possible seizures likely due to withdrawal symptoms. Patient had 2-D echocardiogram and EEG was done. No antiepileptic medication recommended at this time. 06 21 2019 Patient is still confused and wants to be discharged home. Patient is not able to walk by by himself. PTOT has seen the patient. Otherwise patient is complaining of abdominal pain. Abdominal x-ray showed possible ileus and obstruction cannot be excluded. Patient does have hypokalemia with potassium level III.2 today. Denied any fever or chills. No cough or sputum production. No nausea vomiting or diarrhea. Active Medications Hydrocodone Bitart/Acetaminophen ([place] 5-325) 1 each PO Q6HR PRN PRN Reason: Pain Last Admin: 06/21/19 14:30 Dose: 1 each Documented by: Amlodipine Besylate (Norvasc) 5 mg PO DAILY [facility] Last Admin: 06/21/19 08:14 Dose: 5 mg Documented by: Chlordiazepoxide HCl (Librium) 10 mg PO QID PRN PRN Reason: Alcohol Withdrawal Last Admin: 06/21/19 20:44 Dose: 10 mg Documented by: Cholecalciferol (Vitamin D3 (25 Mcg = 1000 Iu)) 1,000 unit PO DAILY [facility] Last Admin: 06/21/19 08:14 Dose: 1,000 unit Documented by: Clonidine (Catapres) 0.1 mg PO Q4HR PRN PRN Reason: Hypertension Clonidine (Catapres) 0.1 mg PO TID [facility] Last Admin: 06/21/19 20:44 Dose: 0.1 mg Documented by: Folic Acid (Folic Acid) 1 mg PO DAILY [facility] Last Admin: 06/21/19 08:14 Dose: 1 mg Documented by: Heparin Sodium (Porcine) (Heparin) 5,000 unit SQ Q12HR [facility] Last Admin: 06/21/19 20:44 Dose: 5,000 unit Documented by: Potassium Chloride/Sodium Chloride (Ns-Kcl 40 Meq/L Iv Solution) 1,000 mls @ 75 mls/hr IV .[id number] [facility] Last Admin: 06/21/19 19:41 Dose: 75 mls/hr Documented by: Lorazepam (Ativan) 1 mg IV Q2HR PRN PRN Reason: CIWA 8 or 9 Last Admin: 06/21/19 09:56 Dose: 1 mg Documented by: Lorazepam (Ativan) 1 mg IV Q1HR PRN PRN Reason: CIWA 10 to 15 Last Admin: 06/21/19 19:40 Dose: 1 mg Documented by: Lorazepam (Ativan) 1 mg PO Q4H PRN PRN Reason: Agitation or Acute Anxiety Last Admin: 06/21/19 08:14 Dose: 1 mg Documented by: Miscellaneous Information (Potassium Per Protocol) 1 each MISCELLANE DAILY PRN; Protocol PRN Reason: Per Protocol Morphine Sulfate (Morphine Sulfate (Inj)) 4 mg IV Q4HR PRN PRN Reason: Severe Pain Multivitamins (Theragran) 1 each PO DAILY@1200 [facility] Last Admin: 06/21/19 12:11 Dose: Not Given Documented by: Naloxone HCl (Narcan) 0.2 mg IV Q2M PRN PRN Reason: Opioid Reversal Non-Formulary Medication (Vitamin B Complex [Vitamin B Complex]) 1 cap PO DAILY [facility] Last Admin: 06/21/19 08:15 Dose: Not Given Documented by: Ondansetron HCl (Zofran) 4 mg IVP Q8HR PRN PRN Reason: Nausea And Vomiting Pantoprazole Sodium (Protonix) 40 mg PO AC-BRKFST [facility] Last Admin: 06/21/19 08:14 Dose: 40 mg Documented by: Potassium Chloride (K-Dur 20) 20 meq PO Q1HR [facility] Stop: 06/21/19 22:01 Last Admin: 06/21/19 20:44 Dose: 20 meq Documented by: Temazepam (Restoril) 15 mg PO HS PRN PRN Reason: Insomnia Thiamine HCl (Vitamin B-1) 100 mg PO BID-W/MEALS [facility] Last Admin: 06/21/19 17:24 Dose: 100 mg Documented by: Objective - Vital Signs Vital signs: Vital Signs Temp 98.2 F 06/21/19 11:48 Pulse 78 06/21/19 11:48 Resp 16 06/21/19 11:48 BP 144/75 06/21/19 11:48 Pulse Ox 97 06/21/19 11:48 Intake & Output 06/21/19 06/21/19 06/22/19 06:59 18:59 06:59 Intake Total 965 Output Total 100 Balance 865 Intake: Intake, IV Titration 375 Amount 0.9% NaCl with KCl 40 Meq 375 /l 1,000 ml @ 75 mls/hr IV .[id number] [facility] Rx#: [id number] Oral 590 Output: Urine 100 Other: Voiding Method Bedside Commode Bedside Commode Urinal Urinal Diaper Diaper Incontinent Incontinent # Voids 2 3 - Exam PHYSICAL EXAMINATION: Patient is lying in the bed comfortably, no acute distress, awake alert and oriented. Confused and lethargic.. HEENT: Normocephalic. Neck is supple. Pupils reactive. Nostrils clear. Oral cavity is moist. Ears reveal no drainage. Neck reveals no JVD, carotid bruits, or thyromegaly. CHEST EXAMINATION: Trachea is central. Symmetrical expansion. Bibasilar diminished air entry. Lung dooley clear to auscultation and percussion. CARDIAC: Normal S1, S2 with no gallops. No murmurs ABDOMEN: Soft. Generalized tenderness. No guarding no rigidity. Bowel sounds normal. No organomegaly. No abdominal bruits. Extremities: reveal no edema. No clubbing or cyanosis Neurologically awake, alert, oriented x3 with well-coordinated movements. No focal deficits noted Skin: No rash or skin lesions. Psychiatric: nonCoperative. Could not be assessed completely Musculoskeletal: No joint swelling or deformity. Normal range of motion. - Labs CBC & Chem 7: 06/21/19 08:13 06/21/19 19:49 Labs: Abnormal Lab Results - Last 24 Hours (Table) 06/21/19 06/21/19 Range/Units 08:13 08:13 RBC 3.67 L (4.30-5.90) m/uL Hgb 12.5 L (13.0-17.5) gm/dL Hct 37.5 L (39.0-53.0) % MCV 102.1 H (80.0-100.0) fL Plt Count 102 L D (150-450) k/uL Lymphocytes # 0.7 L (1.0-4.8) k/uL Potassium 3.2 L (3.5-5.1) mmol/L Glucose 116 H (74-99) mg/dL Assessment and Plan Assessment: Acute DTs secondary to alcohol withdrawal symptoms Ileus Hypokalemia Mild rhabdomyolysis with elevated CK level Hypertension Obesity morbid and BMI 42.0 Chronic back pain DJD Severe alcohol abuse DVT prophylaxis Plan: Patient will be continued on IV hydration and replace potassium level. Continue to monitor for DTs. Neurology has seen the patient. Workup has been negative for seizures. Diabetes will change to liquid diet. Follow up closely. Further recommendations based on the clinical course. Social work is following for possible alcohol rehab program transferred. Prognosis is guarded with multiple medical problems and comorbid conditions. Time with Patient: Greater than 30
[2019-06-21] MEDS ORDERED: POTASSIUM CHLORIDE 2 MEQ/ML 20 ML VIAL IVPB SCH (22:02)
[2019-06-21] MEDS: POTASSIUM CHLORIDE 10 MEQ in WATER FOR INJECTION 1 100ML.BAG IVPB SCH ×2 (22:27→23:47)
[2019-06-22] MEDS: HYDROcodone/APAP 5-325MG 1 EACH TAB PO PRN ×3 (06:27→18:13)
[2019-06-22 07:21] LABS: African American GFR (CKD) >90 (>60 ml/min/1.73 sqM); Anion Gap 6 mmol/L; Blood Urea Nitrogen 15 mg/dL (9-20); Calcium 9.1 mg/dL (8.4-10.2); Carbon Dioxide 26 mmol/L (22-30); Chloride 106 mmol/L (98-107); Glucose 103 mg/dL (74-99); Sodium 138 mmol/L (137-145)
[2019-06-22] MEDS: HEPARIN SODIUM,PORCINE 5,000 UNIT/ML 1 ML VIAL SQ SCH ×2 (07:37→20:38)
[2019-06-22] MEDS: amLODIPine 5 MG TAB PO SCH (07:38)
[2019-06-22] MEDS: PANTOPRAZOLE 40 MG TABLET PO SCH (07:38)
[2019-06-22] MEDS: FOLIC ACID 1 MG TAB PO SCH (07:38)
[2019-06-22] MEDS: CHOLECALCIFEROL 1,000 UNIT TAB PO SCH (07:38)
[2019-06-22] MEDS: cloNIDine HCL 0.1 MG TAB PO SCH ×3 (07:38→21:56)
[2019-06-22 07:43] LABS: Basophils # (A) 0.1 k/uL (0-0.2); Basophils % (A) 1 %; Eosinophils # (A) 0.1 k/uL (0-0.7); Eosinophils % (A) 1 %; HCT 38.8 % (39.0-53.0); HGB 12.9 gm/dL (13.0-17.5); Lymphocytes # (A) 0.8 k/uL (1.0-4.8); Lymphocytes % (A) 13 %; MCH 33.8 pg (25.0-35.0); MCHC 33.2 g/dL (31.0-37.0); MCV 101.8 fL (80.0-100.0); Macrocytosis Slight; Mean Platelet Volume 6.7; Monocytes # (A) 0.9 k/uL (0-1.0); Monocytes % (A) 14 %; Neutrophils # (A) 4.3 k/uL (1.3-7.7); Neutrophils % (A) 68 %; RBC 3.81 m/uL (4.30-5.90); RDW 13.6 % (11.5-15.5); WBC 6.4 k/uL (3.8-10.6)
[2019-06-22] MEDS: THIAMINE 100 MG TAB PO SCH ×2 (07:43→16:07)
[2019-06-22] MEDS: NON FORMULARY DRUG (Vitamin B Complex [Vitamin B Complex] 1 CAP) PO SCH (07:43)
[2019-06-22 07:45] LABS: Platelet Count 174 k/uL (150-450)
[2019-06-22] MEDS: 0.9% NACL WITH KCL 40 MEQ/L 1,000 ML IV SCH (10:54)
[2019-06-22] MEDS: MULTIVITAMINS, THERA 1 EACH TAB PO SCH (12:10)
[2019-06-22 14:14] LABS: Appearance,Urine Clear (Clear); Bacteria,Urine Rare /hpf; Bilirubin,Urine 1+ (Negative); Blood,Urine Moderate (Negative); Budding Yeast,Urine Rare /hpf; Color,Urine Dark Yellow; Glucose,Urine (UA) Negative (Negative); Ketones,Urine 2+ (Negative); Leukocyte Esterase,Urine Negative (Negative); Mucus,Urine Moderate /hpf; Nitrite,Urine Negative (Negative); Protein,Urine 1+ (Negative); RBC,Urine 49 /hpf (0-5); Specific Gravity,Urine 1.025 (1.001-1.035); WBC,Urine 3 /hpf (0-5)
[2019-06-23] MEDS: HYDROcodone/APAP 5-325MG 1 EACH TAB PO PRN ×2 (05:08→13:35)
[2019-06-23] MEDS: THIAMINE 100 MG TAB PO SCH ×2 (07:46→15:55)
[2019-06-23] MEDS: CHOLECALCIFEROL 1,000 UNIT TAB PO SCH (07:46)
[2019-06-23] MEDS: amLODIPine 5 MG TAB PO SCH (07:46)
[2019-06-23] MEDS: cloNIDine HCL 0.1 MG TAB PO SCH ×3 (07:47→20:59)
[2019-06-23] MEDS: HEPARIN SODIUM,PORCINE 5,000 UNIT/ML 1 ML VIAL SQ SCH ×2 (07:47→20:58)
[2019-06-23] MEDS: PANTOPRAZOLE 40 MG TABLET PO SCH (07:47)
[2019-06-23] MEDS: 0.9% NACL WITH KCL 40 MEQ/L 1,000 ML IV SCH (07:47)
[2019-06-23] MEDS: FOLIC ACID 1 MG TAB PO SCH (07:47)
[2019-06-23] MEDS: MULTIVITAMINS, THERA 1 EACH TAB PO SCH (07:47)
[2019-06-23] MEDS: NON FORMULARY DRUG (Vitamin B Complex [Vitamin B Complex] 1 CAP) PO SCH (07:48)
[2019-06-23] MEDS ORDERED: DOCUSATE 100 MG CAP PO PRN (16:22)
[2019-06-23] MEDS: GABAPENTIN 100 MG CAP PO SCH ×2 (16:53→20:59)
[2019-06-23] MEDS: LORazepam 2 MG/ML INJ IV PRN (22:29)
--- NOTE | 2019-06-23 22:29 | P.PN ---
Subjective Progress Note Date: 06/22/19 Principal diagnosis: Acute alcohol withdrawal symptoms Delirium Patient is a 68-year-old male admitted with acute alcohol withdrawal symptoms and DTs. Patient is combative and restless. Currently being continued alcohol withdrawal protocol. Patient was seen by neurology for possible seizures likely due to withdrawal symptoms. Patient had 2-D echocardiogram and EEG was done. No antiepileptic medication recommended at this time. 06 21 2019 Patient is still confused and wants to be discharged home. Patient is not able to walk by by himself. PTOT has seen the patient. Otherwise patient is complaining of abdominal pain. Abdominal x-ray showed possible ileus and obstruction cannot be excluded. Patient does have hypokalemia with potassium level III.2 today. Denied any fever or chills. No cough or sputum production. No nausea vomiting or diarrhea. 06/22/2019 Patient denied any complaints of abdominal pain today. Patient is able to pass flatus. No complaints of nausea and vomiting. patient is able to sit in a chair . No complaints of chest pain. No shortness of breath. Potassium level is almost normalized. Encourage ambulation and anticipate Discharge to rehab. Does not want any IV fluids. Tolerating oral diet. Active Medications Hydrocodone Bitart/Acetaminophen ([place] 5-325) 1 each PO Q6HR PRN PRN Reason: Pain Last Admin: 06/21/19 14:30 Dose: 1 each Documented by: Amlodipine Besylate (Norvasc) 5 mg PO DAILY [facility] Last Admin: 06/21/19 08:14 Dose: 5 mg Documented by: Chlordiazepoxide HCl (Librium) 10 mg PO QID PRN PRN Reason: Alcohol Withdrawal Last Admin: 06/21/19 20:44 Dose: 10 mg Documented by: Cholecalciferol (Vitamin D3 (25 Mcg = 1000 Iu)) 1,000 unit PO DAILY [facility] Last Admin: 06/21/19 08:14 Dose: 1,000 unit Documented by: Clonidine (Catapres) 0.1 mg PO Q4HR PRN PRN Reason: Hypertension Clonidine (Catapres) 0.1 mg PO TID [facility] Last Admin: 06/21/19 20:44 Dose: 0.1 mg Documented by: Folic Acid (Folic Acid) 1 mg PO DAILY [facility] Last Admin: 06/21/19 08:14 Dose: 1 mg Documented by: Heparin Sodium (Porcine) (Heparin) 5,000 unit SQ Q12HR [facility] Last Admin: 06/21/19 20:44 Dose: 5,000 unit Documented by: Potassium Chloride/Sodium Chloride (Ns-Kcl 40 Meq/L Iv Solution) 1,000 mls @ 75 mls/hr IV .[id number] [facility] Last Admin: 06/21/19 19:41 Dose: 75 mls/hr Documented by: Lorazepam (Ativan) 1 mg IV Q2HR PRN PRN Reason: CIWA 8 or 9 Last Admin: 06/21/19 09:56 Dose: 1 mg Documented by: Lorazepam (Ativan) 1 mg IV Q1HR PRN PRN Reason: CIWA 10 to 15 Last Admin: 06/21/19 19:40 Dose: 1 mg Documented by: Lorazepam (Ativan) 1 mg PO Q4H PRN PRN Reason: Agitation or Acute Anxiety Last Admin: 06/21/19 08:14 Dose: 1 mg Documented by: Miscellaneous Information (Potassium Per Protocol) 1 each MISCELLANE DAILY PRN; Protocol PRN Reason: Per Protocol Morphine Sulfate (Morphine Sulfate (Inj)) 4 mg IV Q4HR PRN PRN Reason: Severe Pain Multivitamins (Theragran) 1 each PO DAILY@1200 [facility] Last Admin: 06/21/19 12:11 Dose: Not Given Documented by: Naloxone HCl (Narcan) 0.2 mg IV Q2M PRN PRN Reason: Opioid Reversal Non-Formulary Medication (Vitamin B Complex [Vitamin B Complex]) 1 cap PO DAILY [facility] Last Admin: 06/21/19 08:15 Dose: Not Given Documented by: Ondansetron HCl (Zofran) 4 mg IVP Q8HR PRN PRN Reason: Nausea And Vomiting Pantoprazole Sodium (Protonix) 40 mg PO AC-BRKFST [facility] Last Admin: 06/21/19 08:14 Dose: 40 mg Documented by: Potassium Chloride (K-Dur 20) 20 meq PO Q1HR [facility] Stop: 06/21/19 22:01 Last Admin: 06/21/19 20:44 Dose: 20 meq Documented by: Temazepam (Restoril) 15 mg PO HS PRN PRN Reason: Insomnia Thiamine HCl (Vitamin B-1) 100 mg PO BID-W/MEALS [facility] Last Admin: 06/21/19 17:24 Dose: 100 mg Documented by: Objective - Vital Signs Vital signs: Vital Signs Temp 99.2 F 06/22/19 05:00 Pulse 80 06/22/19 12:42 Resp 16 06/22/19 12:42 BP 151/78 06/22/19 12:42 Pulse Ox 99 06/22/19 12:42 Intake & Output 06/21/19 06/22/19 06/22/19 18:59 06:59 18:59 Intake Total 1929 Balance 1929 Intake: Intake, IV Titration 1100 Amount 0.9% NaCl with KCl 40 Meq 900 /l 1,000 ml @ 75 mls/hr IV .[id number] [facility] Rx#: [id number] Potassium Chloride 10 meq 200 In Water For Injection 1 100ml.bag @ 100 mls/hr IVPB Q1H [facility] Rx#: [id number] Oral 830 Other: Voiding Method Bedside Commode Bedside Commode Bedside Commode Urinal Urinal Urinal Diaper Diaper Diaper Incontinent Incontinent Incontinent # Voids 3 4 # Bowel Movements 3 - Exam PHYSICAL EXAMINATION: Patient is lying in the bed comfortably, no acute distress, awake alert and oriented. . HEENT: Normocephalic. Neck is supple. Pupils reactive. Nostrils clear. Oral cavity is moist. Ears reveal no drainage. Neck reveals no JVD, carotid bruits, or thyromegaly. CHEST EXAMINATION: Trachea is central. Symmetrical expansion. Bibasilar diminished air entry. Lung dooley clear to auscultation and percussion. CARDIAC: Normal S1, S2 with no gallops. No murmurs ABDOMEN: Soft. Generalized tenderness. No guarding no rigidity. Bowel sounds normal. No organomegaly. No abdominal bruits. Extremities: reveal no edema. No clubbing or cyanosis Neurologically awake, alert, oriented x3 with well-coordinated movements. No focal deficits noted Skin: No rash or skin lesions. Psychiatric: nonCoperative. Could not be assessed completely Musculoskeletal: No joint swelling or deformity. Normal range of motion. - Labs CBC & Chem 7: 06/22/19 06:27 06/22/19 06:27 Labs: Abnormal Lab Results - Last 24 Hours (Table) 06/21/19 06/22/19 06/22/19 Range/Units 19:49 06:27 06:27 RBC 3.81 L (4.30-5.90) m/uL Hgb 12.9 L (13.0-17.5) gm/dL Hct 38.8 L (39.0-53.0) % MCV 101.8 H (80.0-100.0) fL Lymphocytes # 0.8 L (1.0-4.8) k/uL Potassium 3.3 L (3.5-5.1) mmol/L Glucose 103 H (74-99) mg/dL Urine Protein (Negative) Urine Ketones (Negative) Urine Blood (Negative) Urine Bilirubin (Negative) Urine RBC (0-5) /hpf Urine Bacteria (None) /hpf Urine Mucus (None) /hpf Urine Yeast (Budding) (None) /hpf 06/22/19 Range/Units 13:55 RBC (4.30-5.90) m/uL Hgb (13.0-17.5) gm/dL Hct (39.0-53.0) % MCV (80.0-100.0) fL Lymphocytes # (1.0-4.8) k/uL Potassium (3.5-5.1) mmol/L Glucose (74-99) mg/dL Urine Protein 1+ H (Negative) Urine Ketones 2+ H (Negative) Urine Blood Moderate H (Negative) Urine Bilirubin 1+ H (Negative) Urine RBC 49 H (0-5) /hpf Urine Bacteria Rare H (None) /hpf Urine Mucus Moderate H (None) /hpf Urine Yeast (Budding) Rare H (None) /hpf Assessment and Plan Assessment: Acute DTs secondary to alcohol withdrawal symptoms Ileus. Improved Hypokalemia. Replaced Mild rhabdomyolysis with elevated CK level Hypertension Obesity morbid and BMI 42.0 Chronic back pain DJD Severe alcohol abuse DVT prophylaxis Plan: Patient was continued on IV hydration and replaced potassium level. Patient is tolerating oral diet. Continue to monitor for DTs. Neurology has seen the patient. Workup has been negative for seizures. Diabetes will change to liquid diet. Follow up closely. Further recommendations based on the clinical course. Social work is following for possible alcohol rehab program transferred. Prognosis is guarded with multiple medical problems and comorbid conditions. Time with Patient: Greater than 30
--- NOTE | 2019-06-23 22:32 | P.PN ---
Subjective Progress Note Date: 06/23/19 Principal diagnosis: Acute alcohol withdrawal symptoms Delirium Patient is a 68-year-old male admitted with acute alcohol withdrawal symptoms and DTs. Patient is combative and restless. Currently being continued alcohol withdrawal protocol. Patient was seen by neurology for possible seizures likely due to withdrawal symptoms. Patient had 2-D echocardiogram and EEG was done. No antiepileptic medication recommended at this time. 06 21 2019 Patient is still confused and wants to be discharged home. Patient is not able to walk by by himself. PTOT has seen the patient. Otherwise patient is complaining of abdominal pain. Abdominal x-ray showed possible ileus and obstruction cannot be excluded. Patient does have hypokalemia with potassium level III.2 today. Denied any fever or chills. No cough or sputum production. No nausea vomiting or diarrhea. 06/22/2019 Patient denied any complaints of abdominal pain today. Patient is able to pass flatus. No complaints of nausea and vomiting. patient is able to sit in a chair . No complaints of chest pain. No shortness of breath. Potassium level is almost normalized. Encourage ambulation and anticipate Discharge to rehab. Does not want any IV fluids. Tolerating oral diet. 06/23/2019 Patient denied any complaints of chest pain or shortness of breath. Able to pass flatus. Patient wants to have stools soft. Otherwise tolerating clear liquids and will be advanced to soft diet. No nausea vomiting or abdominal pain. Patient says that he has peripheral neuropathy and requesting pain medications. Patient was started on Neurontin 100 mg 3 times a day. No fever no chills. No other acute overnight issues. Anticipate discharged to rehab tomorrow. Active Medications Hydrocodone Bitart/Acetaminophen ([place] 5-325) 1 each PO Q6HR PRN PRN Reason: Pain Last Admin: 06/23/19 13:35 Dose: 1 each Documented by: Amlodipine Besylate (Norvasc) 5 mg PO DAILY [facility] Last Admin: 06/23/19 07:46 Dose: 5 mg Documented by: Chlordiazepoxide HCl (Librium) 10 mg PO QID PRN PRN Reason: Alcohol Withdrawal Last Admin: 06/23/19 13:36 Dose: 10 mg Documented by: Cholecalciferol (Vitamin D3 (25 Mcg = 1000 Iu)) 1,000 unit PO DAILY [facility] Last Admin: 06/23/19 07:46 Dose: 1,000 unit Documented by: Clonidine (Catapres) 0.1 mg PO Q4HR PRN PRN Reason: Hypertension Clonidine (Catapres) 0.1 mg PO TID [facility] Last Admin: 06/23/19 20:59 Dose: 0.1 mg Documented by: Docusate Sodium (Colace) 100 mg PO BID PRN PRN Reason: Constipation Folic Acid (Folic Acid) 1 mg PO DAILY [facility] Last Admin: 06/23/19 07:47 Dose: 1 mg Documented by: Gabapentin (Neurontin) 100 mg PO TID [facility] Last Admin: 06/23/19 20:59 Dose: 100 mg Documented by: Heparin Sodium (Porcine) (Heparin) 5,000 unit SQ Q12HR [facility] Last Admin: 06/23/19 20:58 Dose: 5,000 unit Documented by: Ceftriaxone Sodium 1 gm/ (Sodium Chloride) 50 mls @ 100 mls/hr IVPB Q24HR [facility] Last Admin: 06/23/19 07:48 Dose: 100 mls/hr Documented by: Lorazepam (Ativan) 1 mg IV Q2HR PRN PRN Reason: CIWA 8 or 9 Last Admin: 06/21/19 09:56 Dose: 1 mg Documented by: Lorazepam (Ativan) 1 mg IV Q1HR PRN PRN Reason: CIWA 10 to 15 Last Admin: 06/23/19 22:29 Dose: 1 mg Documented by: Lorazepam (Ativan) 1 mg PO Q4H PRN PRN Reason: Agitation or Acute Anxiety Last Admin: 06/21/19 08:14 Dose: 1 mg Documented by: Miscellaneous Information (Potassium Per Protocol) 1 each MISCELLANE DAILY PRN; Protocol PRN Reason: Per Protocol Morphine Sulfate (Morphine Sulfate (Inj)) 4 mg IV Q4HR PRN PRN Reason: Severe Pain Last Admin: 06/23/19 20:59 Dose: 4 mg Documented by: Multivitamins (Theragran) 1 each PO DAILY@1200 [facility] Last Admin: 06/23/19 07:47 Dose: 1 each Documented by: Naloxone HCl (Narcan) 0.2 mg IV Q2M PRN PRN Reason: Opioid Reversal Non-Formulary Medication (Vitamin B Complex [Vitamin B Complex]) 1 cap PO DAILY [facility] Last Admin: 06/23/19 07:48 Dose: Not Given Documented by: Ondansetron HCl (Zofran) 4 mg IVP Q8HR PRN PRN Reason: Nausea And Vomiting Pantoprazole Sodium (Protonix) 40 mg PO AC-BRKFST [facility] Last Admin: 06/23/19 07:47 Dose: 40 mg Documented by: Temazepam (Restoril) 15 mg PO HS PRN PRN Reason: Insomnia Thiamine HCl (Vitamin B-1) 100 mg PO BID-W/MEALS [facility] Last Admin: 06/23/19 15:55 Dose: 100 mg Documented by: Objective - Vital Signs Vital signs: Vital Signs Temp 97.8 F 06/23/19 21:00 Pulse 79 06/23/19 21:00 Resp 16 06/23/19 21:00 BP 125/79 06/23/19 21:00 Pulse Ox 98 06/23/19 21:00 Intake & Output 06/23/19 06/23/19 06/24/19 06:59 18:59 06:59 Intake Total 1190 2280 Output Total 100 Balance 1190 2180 Intake: Oral 1190 2280 Output: Urine 100 Other: Voiding Method Toilet Toilet Urinal Urinal # Voids 3 3 # Bowel Movements 1 - Exam PHYSICAL EXAMINATION: Patient is lying in the bed comfortably, no acute distress, awake alert and oriented. . HEENT: Normocephalic. Neck is supple. Pupils reactive. Nostrils clear. Oral cavity is moist. Ears reveal no drainage. Neck reveals no JVD, carotid bruits, or thyromegaly. CHEST EXAMINATION: Trachea is central. Symmetrical expansion. Bibasilar diminished air entry. Lung dooley clear to auscultation and percussion. CARDIAC: Normal S1, S2 with no gallops. No murmurs ABDOMEN: Soft. Generalized tenderness. No guarding no rigidity. Bowel sounds normal. No organomegaly. No abdominal bruits. Extremities: reveal no edema. No clubbing or cyanosis Neurologically awake, alert, oriented x3 with well-coordinated movements. No focal deficits noted Skin: No rash or skin lesions. Psychiatric: nonCoperative. Could not be assessed completely Musculoskeletal: No joint swelling or deformity. Normal range of motion. - Labs CBC & Chem 7: 06/22/19 06:27 06/22/19 06:27 Labs: Microbiology - Last 24 Hours (Table) 06/22/19 13:55 Urine Culture - Final Urine,Voided Assessment and Plan Assessment: Acute DTs secondary to alcohol withdrawal symptoms Ileus. Improved Hypokalemia. Replaced Mild rhabdomyolysis with elevated CK level Peripheral neuropathy. Nondiabetic. Hypertension Obesity morbid and BMI 42.0 Chronic back pain DJD Severe alcohol abuse DVT prophylaxis Plan: Patient was continued on IV hydration and replaced potassium level. Patient is tolerating oral diet. Continue to monitor for DTs. Neurology has seen the patient. Workup has been negative for seizures. Diabetes will change to liquid diet. Follow up closely. Further recommendations based on the clinical course. Social work is following for possible alcohol rehab program transferred. Prognosis is guarded with multiple medical problems and comorbid conditions. Time with Patient: Greater than 30
[2019-06-24] MEDS: cloNIDine HCL 0.1 MG TAB PO SCH ×3 (08:15→21:14)
[2019-06-24] MEDS: HEPARIN SODIUM,PORCINE 5,000 UNIT/ML 1 ML VIAL SQ SCH ×2 (08:15→21:14)
[2019-06-24] MEDS: amLODIPine 5 MG TAB PO SCH (08:16)
[2019-06-24] MEDS: FOLIC ACID 1 MG TAB PO SCH (08:16)
[2019-06-24] MEDS: PANTOPRAZOLE 40 MG TABLET PO SCH (08:16)
[2019-06-24] MEDS: THIAMINE 100 MG TAB PO SCH ×2 (08:16→15:08)
[2019-06-24] MEDS: GABAPENTIN 100 MG CAP PO SCH ×3 (08:16→21:14)
[2019-06-24] MEDS: CHOLECALCIFEROL 1,000 UNIT TAB PO SCH (08:16)
[2019-06-24] MEDS: MULTIVITAMINS, THERA 1 EACH TAB PO SCH (08:16)
[2019-06-24 08:17] LABS: Basophils % (A) 1 %; Eosinophils # (A) 0.2 k/uL (0-0.7); Eosinophils % (A) 3 %; HCT 40.2 % (39.0-53.0); HGB 13.5 gm/dL (13.0-17.5); Lymphocytes # (A) 1.1 k/uL (1.0-4.8); Lymphocytes % (A) 18 %; MCH 34.2 pg (25.0-35.0); MCHC 33.6 g/dL (31.0-37.0); MCV 101.6 fL (80.0-100.0); Macrocytosis Slight; Mean Platelet Volume 6.7; Monocytes # (A) 0.8 k/uL (0-1.0); Monocytes % (A) 13 %; Neutrophils # (A) 3.9 k/uL (1.3-7.7); Neutrophils % (A) 63 %; Platelet Count 319 k/uL (150-450); RBC 3.96 m/uL (4.30-5.90); RDW 13.6 % (11.5-15.5); WBC 6.2 k/uL (3.8-10.6)
[2019-06-24 08:24] LABS: African American GFR (CKD) >90 (>60 ml/min/1.73 sqM); Anion Gap 5 mmol/L; Blood Urea Nitrogen 7 mg/dL (9-20); Calcium 9.3 mg/dL (8.4-10.2); Carbon Dioxide 32 mmol/L (22-30); Chloride 103 mmol/L (98-107); Glucose 116 mg/dL (74-99); Potassium 3.4 mmol/L (3.5-5.1); Sodium 140 mmol/L (137-145)
[2019-06-24] MEDS: NON FORMULARY DRUG (Vitamin B Complex [Vitamin B Complex] 1 CAP) PO SCH (09:29)
[2019-06-24] MEDS ORDERED: POTASSIUM CHLORIDE ER 20 MEQ TAB.ER PO STA (14:40)
--- NOTE | 2019-06-24 14:53 | P.PN ---
Subjective Progress Note Date: 06/24/19 Principal diagnosis: Acute alcohol withdrawal symptoms Delirium Patient is a 68-year-old male admitted with acute alcohol withdrawal symptoms and DTs. Patient is combative and restless. Currently being continued alcohol withdrawal protocol. Patient was seen by neurology for possible seizures likely due to withdrawal symptoms. Patient had 2-D echocardiogram and EEG was done. No antiepileptic medication recommended at this time. 06 21 2019 Patient is still confused and wants to be discharged home. Patient is not able to walk by by himself. PTOT has seen the patient. Otherwise patient is complaining of abdominal pain. Abdominal x-ray showed possible ileus and obstruction cannot be excluded. Patient does have hypokalemia with potassium level III.2 today. Denied any fever or chills. No cough or sputum production. No nausea vomiting or diarrhea. 06/22/2019 Patient denied any complaints of abdominal pain today. Patient is able to pass flatus. No complaints of nausea and vomiting. patient is able to sit in a chair . No complaints of chest pain. No shortness of breath. Potassium level is almost normalized. Encourage ambulation and anticipate Discharge to rehab. Does not want any IV fluids. Tolerating oral diet. 06/23/2019 Patient denied any complaints of chest pain or shortness of breath. Able to pass flatus. Patient wants to have stools soft. Otherwise tolerating clear liquids and will be advanced to soft diet. No nausea vomiting or abdominal pain. Patient says that he has peripheral neuropathy and requesting pain medications. Patient was started on Neurontin 100 mg 3 times a day. No fever no chills. No other acute overnight issues. Anticipate discharged to rehab tomorrow. 06/24/2019 Patient sitting up at the side of the bed in no acute distress. PT/OT following and awaiting updated report. Per nursing staff patient was up walking with a walker and still somewhat unsteady and apprehensive about following. Patient states that he does live at home alone. Case management and social work are following and working on placement at [facility]. Discussed with the patient at length about alcohol use and about possible rehab for this upon discharge from [facility]. Patient denies any chest pain, shortness of breath, or palpitations at this time. Patient is afebrile. Patient denies any nausea or vomiting and is tolerating diet. Potassium was 3.4 today and will be replaced. Will repeat a.m. labs. No acute overnight issues. Guarded prognosis. Objective - Vital Signs Vital signs: Vital Signs Temp 98.4 F 06/24/19 11:43 Pulse 74 06/24/19 11:43 Resp 19 06/24/19 11:43 BP 125/69 06/24/19 11:43 Pulse Ox 99 06/24/19 11:43 Intake & Output 06/23/19 06/24/19 06/24/19 18:59 06:59 18:59 Intake Total 2280 590 Output Total 100 250 Balance 2180 340 Weight 140.614 kg Intake: Oral 2280 590 Output: Urine 100 250 Other: Voiding Method Toilet Toilet Urinal Urinal # Voids 3 1 # Bowel Movements 1 - Exam PHYSICAL EXAMINATION: Patient is sitting up at the side of the bed comfortably, no acute distress, awake alert and oriented. Vital signs are stable. HEENT: Normocephalic. Neck is supple. Pupils reactive. Nostrils clear. Oral cavity is moist. Ears reveal no drainage. Neck reveals no JVD, carotid bruits, or thyromegaly. CHEST EXAMINATION: Trachea is central. Symmetrical expansion. Bibasilar diminished air entry. Lung dooley clear to auscultation and percussion. CARDIAC: Normal S1, S2 with no gallops. No murmurs ABDOMEN: Soft. Obese. No tenderness noted on exam. No guarding no rigidity. Bowel sounds normal. No organomegaly. No abdominal bruits. Extremities: reveal no edema. No clubbing or cyanosis Neurologically awake, alert, oriented x3 with well-coordinated movements. No focal deficits noted Skin: No rash or skin lesions. Dry, flaking skin noted from scalp Psychiatric: Alert and oriented 3, flat affect. Musculoskeletal: No joint swelling or deformity. Normal range of motion. - Labs CBC & Chem 7: 06/24/19 08:02 06/24/19 08:02 Labs: Abnormal Lab Results - Last 24 Hours (Table) 06/24/19 06/24/19 Range/Units 08:02 08:02 RBC 3.96 L (4.30-5.90) m/uL MCV 101.6 H (80.0-100.0) fL Potassium 3.4 L (3.5-5.1) mmol/L Carbon Dioxide 32 H (22-30) mmol/L BUN 7 L (9-20) mg/dL Glucose 116 H (74-99) mg/dL Microbiology - Last 24 Hours (Table) 06/22/19 13:55 Urine Culture - Final Urine,Voided Assessment and Plan Assessment: Acute DTs secondary to alcohol withdrawal symptoms Ileus. Improved Hypokalemia. Replaced Mild rhabdomyolysis with elevated CK level Peripheral neuropathy. Nondiabetic. Hypertension Obesity morbid and BMI 42.0 Chronic back pain DJD Severe alcohol abuse DVT prophylaxis Recommendations and discussion: Recommend to continue current medications, management, and symptomatic treatm ent. Patient is tolerating oral diet. Current potassium is 3.4 and will be replaced and recheck labs in the morning. Continue to monitor for DTs. Will continue to monitor closely. Further recommendations based on the clinical course. Social work is following for subacute rehab program. Discussed with the patient at length about refraining from any alcohol use and that he may benefit from possible rehab at [place] upon discharge. Prognosis is guarded with multiple medical problems and comorbid conditions. Possible discharge in 24 hours.
[2019-06-24] MEDS: HYDROcodone/APAP 5-325MG 1 EACH TAB PO PRN ×2 (17:32→23:43)
[2019-06-25 08:01] LABS: African American GFR (CKD) >90 (>60 ml/min/1.73 sqM); Anion Gap 6 mmol/L; Blood Urea Nitrogen 7 mg/dL (9-20); Calcium 8.9 mg/dL (8.4-10.2); Carbon Dioxide 29 mmol/L (22-30); Chloride 106 mmol/L (98-107); Glucose 110 mg/dL (74-99); Potassium 3.2 mmol/L (3.5-5.1); Sodium 141 mmol/L (137-145)
[2019-06-25] MEDS: HEPARIN SODIUM,PORCINE 5,000 UNIT/ML 1 ML VIAL SQ SCH (08:52)
[2019-06-25] MEDS: amLODIPine 5 MG TAB PO SCH (08:52)
[2019-06-25] MEDS: GABAPENTIN 100 MG CAP PO SCH ×2 (08:52→17:15)
[2019-06-25] MEDS: FOLIC ACID 1 MG TAB PO SCH (08:52)
[2019-06-25] MEDS: MULTIVITAMINS, THERA 1 EACH TAB PO SCH (08:53)
[2019-06-25] MEDS: THIAMINE 100 MG TAB PO SCH ×2 (08:53→17:15)
[2019-06-25] MEDS: cloNIDine HCL 0.1 MG TAB PO SCH ×2 (08:53→17:15)
[2019-06-25] MEDS: CHOLECALCIFEROL 1,000 UNIT TAB PO SCH (08:53)
[2019-06-25] MEDS: PANTOPRAZOLE 40 MG TABLET PO SCH (08:53)
[2019-06-25] MEDS: NON FORMULARY DRUG (Vitamin B Complex [Vitamin B Complex] 1 CAP) PO SCH (08:54)
--- NOTE | 2019-06-25 09:33 | CDI ---
Documentation Clarification Form Date: 06/25/2019 9:05:13 AM From: Ann Roe RN CCDS Admit Date: 06/18/2019 7:55:00 PM Patient Name: Milton Navarro Visit Number: [id number] Discharge Date: ATTENTION: The Clinical Documentation Specialists (CDI) and [facility] Coding Staff appreciate your assistance in clarifying documentation. Please respond to the clarification below the line at the bottom and electronically sign. The CDI & [facility] Coding staff will review the response and follow-up if needed. Please note: Queries are made part of the Legal Health Record. If you have any questions, please contact the author of this message via ITS. Dr. Kaylin Muñoz Review of systems could not be taken; the patient is confused at this time Is documented in your progress note dated 06/20/2019 History/Risk Factors: 68-year-old male presented to the Ed with tingling sensation from knees to feet and was sitting in his recliner for 8 hours. The patient is admitted with acute alcohol withdrawal symptoms and delirium tremens is going through active DTs Medical history HTN, ETOH Abuse Clinical Indicators: Also documented in progress note dated 06/20/2019 Patient is confused, combative and restless. Labs: Creatinine Kinase 616; Brain CT:06/19/2019 Age related atrophy and probable chronic small vessel ischemia. Treatment: 0.9ns 1L bolus IV then at 125cchr, Ativan for CIWA protocol , seizure precautions In your professional opinion, please clarify the etiology of the confusion, if known. * Toxic Metabolic Encephalopathy due to Alcohol withdrawal * Metabolic Encephalopathy due to * Other condition (please specify) * Unable to determine (Last Revision: December 2017) Metabolic Encephalopathy due to multifactorial; MTDD
[2019-06-25 12:23] VITALS: BP 169/74; PULSE 75; RESP 17; TEMP 98.3
--- NOTE | 2019-06-25 15:42 | P.DS ---
Providers Date of admission: 06/18/19 19:55 Expected date of discharge: 06/25/19 Attending physician: Kaylin Muñoz Consults: 06/19/19 10:30 Consult Physician Routine Consulting Provider: Deedee Tomlinson Consult Reason/Comments: Change in neurologic status Do you want consulting provider notified?: Yes Primary care physician: Stated None Hospital Course: Final diagnosis Acute delirium tremens secondary to alcohol withdrawal symptoms Ileus Possible acute urinary tract infection, hematuria Possible metabolic or toxic encephalopathy due to acute alcohol withdrawal symptoms Hypokalemia Mild rhabdomyolysis with elevated CK level Peripheral neuropathy, nondiabetic Hypertension Morbid Obesity with a BMI of 42.0 Chronic back pain Degenerative joint disease Severe alcohol abuse DVT prophylaxis Discharge disposition Patient is being discharged in a stable condition with guarded prognosis to [facility] where he will continue with PT/OT therapy. Patient will follow-up with primary care provider and resources were provided for Dr. Hinojosa upon discharge. Patient will follow up with neurology in 1-2 weeks upon discharge as well. Total time taken is 35 minutes. History of present illness This is a 68-year-old male who was recently admitted for acute alcohol withdrawal symptoms and DTs and was being closely monitored. Patient was found to have mild rhabdomyolysis with an elevated CK level and was being closely monitored. During hospitalization patient was quite confused and disoriented and has had improvement. Patient continue to work with PT/OT for unsteady gait and gait dysfunction as he continues to have weakness of his bilateral lower extremities. Patient would benefit from subacute rehab for strength and mobility. Patient will need repeat labs in 2-3 days. Currently patient denies any chest pain, shortness of breath, or palpitations at this time. Patient has been afebrile. Patient denies any nausea or vomiting and is tolerating diet. During hospitalization patient had a urinalysis done which showed some hematuria and patient was treated with IV Rocephin. Patient denies any dysuria or pain with urination. Patient denies any blood in his urine. Currently patient's condition is stable and is ready for discharge today to subacute rehab. When speaking with the family they feel the patient is unsafe to return home due to his weakness in his extremities and his recent alcohol use. Discussed with patient at length about possibly looking into [place] rehab facility for alcohol abuse. Guarded prognosis. On exam vital signs are stable. Temp is 98.3F, pulse is 75, respirations are 17, blood pressure is 169/74, oxygen saturation is 98% on room air. Cardio S1 and S2 are present. Respiratory system shows diminished breath sounds at the bases otherwise clear to auscultation. Abdomen is soft, obese, non-tender. Nervous system shows no focal deficits with mild diffuse weakness. Please refer to medication reconciliation sheet for a list of medications. Patient Condition at Discharge: Fair Plan - Discharge Summary Discharge Rx Participant: No New Discharge Prescriptions: New Folic Acid 1 mg PO DAILY 30 Days #30 tab chlordiazePOXIDE HCl [Librium] 10 mg PO QID PRN 4 Days #12 cap PRN Reason: Alcohol Withdrawal Multivitamins, Thera [Multivitamin (formulary)] 1 each PO DAILY@1200 30 Days #30 tab Gabapentin [Neurontin] 100 mg PO TID #12 cap HYDROcodone/APAP 5-325MG [[place] 5-325] 1 each PO Q6HR PRN #12 tab PRN Reason: Pain amLODIPine [Norvasc] 5 mg PO DAILY 30 Days #30 tab Pantoprazole [Protonix] 40 mg PO AC-BRKFST 30 Days #30 tablet. Thiamine [Vitamin B-1] 100 mg PO BID-W/MEALS 30 Days #30 tab Continue Cholecalciferol [Vitamin D3 (25 Mcg = 1000 Iu)] 1,000 unit PO DAILY Vitamin B Complex 1 cap PO DAILY Discharge Medication List Cholecalciferol [Vitamin D3 (25 Mcg = 1000 Iu)] 1,000 unit PO DAILY 06/18/19 [History] Vitamin B Complex 1 cap PO DAILY 06/18/19 [History] Folic Acid 1 mg PO DAILY 30 Days #30 tab 06/25/19 [Rx] Gabapentin [Neurontin] 100 mg PO TID #12 cap 06/25/19 [Rx] HYDROcodone/APAP 5-325MG [[place] 5-325] 1 each PO Q6HR PRN #12 tab 06/25/19 [Rx] Multivitamins, Thera [Multivitamin (formulary)] 1 each PO DAILY@1200 30 Days #30 tab 06/25/19 [Rx] Pantoprazole [Protonix] 40 mg PO AC-BRKFST 30 Days #30 tablet. 06/25/19 [Rx] Thiamine [Vitamin B-1] 100 mg PO BID-W/MEALS 30 Days #30 tab 06/25/19 [Rx] amLODIPine [Norvasc] 5 mg PO DAILY 30 Days #30 tab 06/25/19 [Rx] chlordiazePOXIDE HCl [Librium] 10 mg PO QID PRN 4 Days #12 cap 06/25/19 [Rx] Follow up Appointment(s)/Referral(s): Johann Hinojosa MD [REFERRING] - 1-2 Days (patient will be a new patient,office would like to speak with him for information before appt is made) Lou Walden MD [Medical Doctor] - 2 Weeks (patient needs a referral from primary care doctor to be seen.patient hasnt been there since 2014) Ambulatory/Diagnostic Orders: Basic Metabolic Panel [LAB.AMB] Time Frame: 3 Days, Location: None Selected Activity/Diet/Wound Care/Special Instructions: Patient is going to [facility] Activity as tolerated follow up with primary care provider upon discharge repeat labs in 2-3 days continue current diet avoid all alcohol intake follow up with neurology in 1-2 weeks Discharge Disposition: TRANSFER TO SNF/ECF
[2019-06-25] MEDS: HYDROcodone/APAP 5-325MG 1 EACH TAB PO PRN (17:15)
== END 2019-06-25 18:40 | DRG 896 ==
LOC: EC 15:24 → 3NMEDONC 19:55
PROVIDERS: ADMIT Hospitalist; ATTEND Hospitalist
DX: F10.231 Alcohol dependence with withdrawal delirium (principal); G92 Toxic encephalopathy; K56.7 Ileus, unspecified; M62.82 Rhabdomyolysis; Z68.41 Body mass index [BMI] 40.0-44.9, adult; N39.0 Urinary tract infection, site not specified; E66.01 Morbid (severe) obesity due to excess calories; Z71.41 Alcohol abuse counseling and surveillance of alcoholic; E86.0 Dehydration; E87.6 Hypokalemia; F41.9 Anxiety disorder, unspecified; G47.00 Insomnia, unspecified; G62.9 Polyneuropathy, unspecified; G89.29 Other chronic pain; M54.9 Dorsalgia, unspecified; I10 Essential (primary) hypertension; K70.10 Alcoholic hepatitis without ascites; M19.90 Unspecified osteoarthritis, unspecified site; Z79.899 Other long term (current) drug therapy; Z87.891 Personal history of nicotine dependence; R26.81 Unsteadiness on feet; R31.9 Hematuria, unspecified
CPT/HCPCS: 36415; 70460; 72100; 74019; 80048; 80053; 81001; 82150; 82550; 82553; 83605; 83690; 83970; 84132; 84439; 84443; 85025; 85610; 85652; 85730; 86038; 86140; 86431; 87086; 93306; 93880; 96361; 96365; 96366; 96372; 96375; 99285

== ENCOUNTER 2019-11-07 14:53 | Inpatient (IN) | payer MEDICARE ==
--- NOTE | 2019-11-07 15:12 | ED ---
Weakness HPI - General Chief complaint: Weakness Stated complaint: weakness Time Seen by Provider: 11/07/19 14:55 Source: patient, RN notes reviewed Mode of arrival: wheelchair Limitations: no limitations - History of Present Illness Initial comments: Is a 69-year-old male with a history of alcoholism also peripheral neuropathy history of rhabdomyolysis dehydration in the past who states over last several days she's been falling a lot. He denies any head or neck injury but states he quit drinking beer about 3 days ago he's having chills and generalized weakness he states his neuropathy is getting worse in his ascending since shakes left hand clenching up vision decrease no focal deficits however. No overt cough he states his urine is darker than normal however. No other modifying factors at this time he states this is very similar to what he had last time he was here MD Complaint: generalized weakness, numbness, difficulty walking - Related Data Home Medications Medication Instructions Recorded Confirmed Cholecalciferol [Vitamin D3 (25 1,000 unit PO DAILY 06/18/19 06/18/19 Mcg = 1000 Iu)] Vitamin B Complex 1 cap PO DAILY 06/18/19 06/18/19 Previous Rx's Medication Instructions Recorded Folic Acid 1 mg PO DAILY 30 Days #30 tab 06/25/19 Gabapentin [Neurontin] 100 mg PO TID #12 cap 06/25/19 HYDROcodone/APAP 5-325MG [[place] 1 each PO Q6HR PRN #12 tab 06/25/19 5-325] Multivitamins, Thera [Multivitamin 1 each PO DAILY@1200 30 Days #30 06/25/19 (formulary)] tab Pantoprazole [Protonix] 40 mg PO AC-BRKFST 30 Days #30 06/25/19 tablet. Thiamine [Vitamin B-1] 100 mg PO BID-W/MEALS 30 Days #30 06/25/19 tab amLODIPine [Norvasc] 5 mg PO DAILY 30 Days #30 tab 06/25/19 chlordiazePOXIDE HCl [Librium] 10 mg PO QID PRN 4 Days #12 cap 06/25/19 Allergies Allergy/AdvReac Type Severity Reaction Status Date / Time No Known Allergies Allergy Verified 06/18/19 21:29 Review of Systems ROS Statement: Those systems with pertinent positive or pertinent negative responses have been documented in the HPI. ROS Other: All systems not noted in ROS Statement are negative. Past Medical History Past Medical History: Hypertension Additional Past Medical History / Comment(s): EtOH abuse, chronic back pain History of Any Multi-Drug Resistant Organisms: None Reported Past Surgical History: Back Surgery, Orthopedic Surgery, Tonsillectomy Additional Past Surgical History / Comment(s): 3 back laminectomies, hand surgery s/p trauma to reattatch tendons Past Anesthesia/Blood Transfusion Reactions: No Reported Reaction Past Psychological History: No Psychological Hx Reported Smoking Status: Never smoker Past Alcohol Use History: Occasional Past Drug Use History: None Reported General Exam - General Exam Comments Initial Comments: This is a well-developed well-nourished awake alert oriented 3 male Limitations: no limitations General appearance: alert Head exam: Present: atraumatic, normocephalic, normal inspection Eye exam: Present: normal appearance, PERRL, EOMI. Absent: scleral icterus, conjunctival injection, periorbital swelling ENT exam: Present: mucous membranes dry Neck exam: Present: normal inspection, full ROM, other (No stridor JVD or bruits) Respiratory exam: Present: decreased breath sounds. Absent: respiratory distress, wheezes, rales, rhonchi, stridor Cardiovascular Exam: Present: regular rate, normal rhythm, normal heart sounds. Absent: systolic murmur, diastolic murmur, rubs, gallop, clicks GI/Abdominal exam: Present: soft, normal bowel sounds. Absent: distended, tenderness, guarding, rebound, rigid Rectal exam: Present: deferred Extremities exam: Present: full ROM, normal capillary refill, other (This is changes). Absent: tenderness, joint swelling, calf tenderness Back exam: Present: normal inspection Neurological exam: Present: alert, oriented X3, CN II-XII intact, other (He does demonstrate tremors as well as diminished sensation or lower extremities) Psychiatric exam: Present: normal affect, anxious Skin exam: Present: warm, dry, intact. Absent: normal color, rash Course Vital Signs 11/07/19 14:55 Temperature 97.7 F Pulse Rate 83 Respiratory 20 Rate Blood Pressure 207/89 O2 Sat by Pulse 97 Oximetry EKG Findings - EKG Results: EKG: interpreted by ERMD, sinus rhythm (Sinus rhythm a 76 VT interval 200 QRS duration 78. QT/ QTC 386/434ms, no acute ST-T wave changes) Medical Decision Making - Medical Decision Making I did discuss findings with the patient and with Dr. Mathis. The patient will be admitted patient's presentation consistent with alcohol withdrawal as well as the peripheral neuropathy patient is demonstrated - Lab Data Result diagrams: 11/07/19 15:35 Lab Results 11/07/19 11/07/19 11/07/19 Range/Units 15:10 15:35 15:35 Sodium 128 L (137-145) mmol/L Potassium 4.2 (3.5-5.1) mmol/L Chloride 93 L (98-107) mmol/L Carbon Dioxide 27 (22-30) mmol/L Anion Gap 8 mmol/L BUN 12 (9-20) mg/dL Creatinine 0.67 (0.66-1.25) mg/dL Est GFR (CKD-EPI)AfAm >90 (>60 ml/min/1.73 sqM) Est GFR (CKD-EPI)NonAf >90 (>60 ml/min/1.73 sqM) Glucose 115 H (74-99) mg/dL POC Glucose (mg/dL) (75-99) mg/dL POC Glu [place] ID Calcium 9.4 (8.4-10.2) mg/dL Magnesium 2.0 (1.6-2.3) mg/dL Total Bilirubin 2.1 H (0.2-1.3) mg/dL AST 51 (17-59) U/L ALT 31 (4-49) U/L Alkaline Phosphatase 89 (38-126) U/L Creatine Kinase 225 H (55-170) U/L Troponin I <0.012 (0.000-0.034) ng/mL Total Protein 6.8 (6.3-8.2) g/dL Albumin 4.1 (3.5-5.0) g/dL Lipase 116 (23-300) U/L Serum Alcohol <10 mg/dL Influenza Type A RNA Not Detected (Not Detectd) Influenza Type B (PCR) Not Detected (Not Detectd) 11/07/19 Range/Units 16:16 Sodium (137-145) mmol/L Potassium (3.5-5.1) mmol/L Chloride (98-107) mmol/L Carbon Dioxide (22-30) mmol/L Anion Gap mmol/L BUN (9-20) mg/dL Creatinine (0.66-1.25) mg/dL Est GFR (CKD-EPI)AfAm (>60 ml/min/1.73 sqM) Est GFR (CKD-EPI)NonAf (>60 ml/min/1.73 sqM) Glucose (74-99) mg/dL POC Glucose (mg/dL) 111 H (75-99) mg/dL POC Glu [place] ID [place] Calcium (8.4-10.2) mg/dL Magnesium (1.6-2.3) mg/dL Total Bilirubin (0.2-1.3) mg/dL AST (17-59) U/L ALT (4-49) U/L Alkaline Phosphatase (38-126) U/L Creatine Kinase (55-170) U/L Troponin I (0.000-0.034) ng/mL Total Protein (6.3-8.2) g/dL Albumin (3.5-5.0) g/dL Lipase (23-300) U/L Serum Alcohol mg/dL Influenza Type A RNA (Not Detectd) Influenza Type B (PCR) (Not Detectd) - Radiology Data Radiology results: report reviewed (I did review the imaging and report no acute findings.), image reviewed Disposition Clinical Impression: Alcohol withdrawal, Peripheral neuropathy Disposition: ADMITTED IP TO THIS HOSP Condition: Fair Referrals: None,Stated [Primary Care Provider] - 1-2 days
[2019-11-07] MEDS ORDERED: LORazepam 2 MG/ML INJ IV PRN ×3 (15:13)
[2019-11-07] MEDS ORDERED: THIAMINE 100 MG/ML 2 ML VIAL IM STA (15:13)
[2019-11-07 15:57] LABS: ALT 31 U/L (4-49); AST 51 U/L (17-59); African American GFR (CKD) >90 (>60 ml/min/1.73 sqM); Albumin 4.1 g/dL (3.5-5.0); Alcohol <10 mg/dL; Alkaline Phosphatase 89 U/L (38-126); Anion Gap 8 mmol/L; Blood Urea Nitrogen 12 mg/dL (9-20); Calcium 9.4 mg/dL (8.4-10.2); Carbon Dioxide 27 mmol/L (22-30); Chloride 93 mmol/L (98-107); Creatine Kinase 225 U/L (55-170); Glucose 115 mg/dL (74-99); Non-African American GFR(CKD) >90 (>60 ml/min/1.73 sqM); Potassium 4.2 mmol/L (3.5-5.1); Sodium 128 mmol/L (137-145); Total Bilirubin 2.1 mg/dL (0.2-1.3); Total Protein 6.8 g/dL (6.3-8.2)
--- NOTE | 2019-11-07 15:58 | XR ---
EXAMINATION TYPE: XR chest 2V DATE OF EXAM: 11/07/2019 COMPARISON: NONE HISTORY: Chills and fever. TECHNIQUE: Frontal and lateral views of the chest are obtained. FINDINGS: There is no focal air space opacity, pleural effusion, or pneumothorax seen. The cardiac silhouette size is upper limits of normal. Multilevel spurring and disc space narrowing in the spine is present. IMPRESSION: No suspicious acute infiltrate.
[2019-11-07 16:18] LABS: Glucose,Whole Blood 111 mg/dL (75-99)
[2019-11-07 16:38] LABS: Appearance,Urine Clear (Clear); Bilirubin,Urine 1+ (Negative); Blood,Urine Moderate (Negative); Color,Urine Light Brown; Glucose,Urine (UA) Negative (Negative); Ketones,Urine 2+ (Negative); Leukocyte Esterase,Urine Negative (Negative); Mucus,Urine Few /hpf; Nitrite,Urine Negative (Negative); Protein,Urine 1+ (Negative); RBC,Urine 15 /hpf (0-5); Specific Gravity,Urine 1.037 (1.001-1.035); WBC,Urine 2 /hpf (0-5)
[2019-11-07] MEDS ORDERED: NALOXONE 0.4 MG/ML 1 ML VIAL IV PRN (16:39)
[2019-11-07] MEDS ORDERED: HYDROmorphone 1 MG/ML 1 ML SYRINGE IVP PRN (16:39)
[2019-11-07 16:46] LABS: Basophils % (A) 0 %; Eosinophils # (A) 0.1 k/uL (0-0.7); Eosinophils % (A) 2 %; HCT 43.1 % (39.0-53.0); HGB 14.4 gm/dL (13.0-17.5); Lymphocytes # (A) 0.9 k/uL (1.0-4.8); Lymphocytes % (A) 13 %; MCH 33.3 pg (25.0-35.0); MCHC 33.4 g/dL (31.0-37.0); MCV 99.8 fL (80.0-100.0); Mean Platelet Volume 7.5; Monocytes # (A) 0.5 k/uL (0-1.0); Monocytes % (A) 6 %; Neutrophils # (A) 5.6 k/uL (1.3-7.7); Neutrophils % (A) 77 %; Platelet Count 154 k/uL (150-450); RBC 4.32 m/uL (4.30-5.90); RDW 12.6 % (11.5-15.5); WBC 7.3 k/uL (3.8-10.6)
[2019-11-07] MEDS: HYDROcodone/APAP 5-325MG 1 EACH TAB PO PRN ×2 (17:08→22:47)
[2019-11-07] MEDS: SODIUM CHLORIDE 0.9% 1,000 ML IV SCH (17:10)
[2019-11-07] MEDS: GABAPENTIN 100 MG CAP PO SCH (20:16)
[2019-11-07] MEDS: HEPARIN SODIUM,PORCINE 5,000 UNIT/ML 1 ML VIAL SQ SCH (22:51)
[2019-11-08] MEDS: SODIUM CHLORIDE 0.9% 1,000 ML IV SCH ×3 (04:41→23:00)
[2019-11-08] MEDS ORDERED: THIAMINE 100 MG TAB PO SCH (07:30)
[2019-11-08] MEDS: THIAMINE 100 MG TAB PO SCH ×2 (07:47→15:51)
[2019-11-08] MEDS: HYDROcodone/APAP 5-325MG 1 EACH TAB PO PRN ×3 (07:47→20:57)
[2019-11-08] MEDS: PANTOPRAZOLE 40 MG TABLET PO SCH (07:47)
[2019-11-08] MEDS: HEPARIN SODIUM,PORCINE 5,000 UNIT/ML 1 ML VIAL SQ SCH ×2 (07:55→15:51)
[2019-11-08] MEDS: MULTIVITAMINS, THERA 1 EACH TAB PO SCH (07:56)
[2019-11-08] MEDS: amLODIPine 5 MG TAB PO SCH (07:56)
[2019-11-08] MEDS: CHOLECALCIFEROL 1,000 UNIT TAB PO SCH (07:56)
[2019-11-08] MEDS: GABAPENTIN 100 MG CAP PO SCH ×3 (07:56→20:57)
[2019-11-08] MEDS ORDERED: NON FORMULARY DRUG (Vitamin B Complex [Vitamin B Complex] 1 CAP) PO SCH (09:00)
[2019-11-08 11:06] LABS: African American GFR (CKD) >90 (>60 ml/min/1.73 sqM); Anion Gap 8 mmol/L; Blood Urea Nitrogen 15 mg/dL (9-20); Calcium 9.1 mg/dL (8.4-10.2); Carbon Dioxide 24 mmol/L (22-30); Chloride 99 mmol/L (98-107); Glucose 102 mg/dL (74-99); Non-African American GFR(CKD) >90 (>60 ml/min/1.73 sqM); Potassium 4.3 mmol/L (3.5-5.1); Sodium 131 mmol/L (137-145)
--- NOTE | 2019-11-08 12:41 | P.HPIM ---
History of Present Illness 69-year-old male with history of chronic alcoholism last drink was about 4 days ago came in with compensative generalized weakness and peripheral neuropathy. Patient has been falling and the kids multiple times. Patient is bit hypo natremic patient was started on IV fluids with improvement in sodium to 131 physical therapy evaluated the patient is recommending subacute rehabilitation patient was comparing of memory issues and he is requesting a scan as he believes he has dementia. If he has multiple complaints and the multiple questions he has questions about ventral hernia and umbilicus hernia which he wants to be fixed, patient says his are peripheral neuropathy has been worsening. Patient wants hemoglobin A1c to be ordered. Patient denied any fever chills dysuria. Patient does have bilateral lower nonpitting pedal edema Review of Systems REVIEW OF SYSTEMS: CONSTITUTIONAL: As mentioned in HPI HEENT: No recent visual problems or hearing problems. Denied any sore throat. CARDIOVASCULAR: No chest pain, orthopnea, PND, no palpitations, no syncope. PULMONARY: No shortness of breath, no cough, no hemoptysis. GASTROINTESTINAL: No diarrhea, no nausea, no vomiting, no abdominal pain. NEUROLOGICAL: No headaches, no weakness, no numbness. HEMATOLOGICAL: Denies any bleeding or petechiae. GENITOURINARY: Denies any burning micturition, frequency, or urgency. MUSCULOSKELETAL/RHEUMATOLOGICAL: Denies any joint pain, swelling, or any muscle pain. ENDOCRINE: Denies any polyuria or polydipsia. The rest of the 14-point review of systems is negative. Past Medical History Past Medical History: Hypertension Additional Past Medical History / Comment(s): ETOH abuse, chronic back pain, BLE neuropathy, lymphedema History of Any Multi-Drug Resistant Organisms: None Reported Past Surgical History: Back Surgery, Orthopedic Surgery, Tonsillectomy Additional Past Surgical History / Comment(s): 3 back laminectomies, hand surgery s/p trauma to reattatch tendons Past Anesthesia/Blood Transfusion Reactions: No Reported Reaction Past Psychological History: No Psychological Hx Reported Additional Psychological History / Comment(s): Patient has fear that he has onset dementia. Smoking Status: Never smoker Past Alcohol Use History: Occasional Additional Past Alcohol Use History / Comment(s): Patient has been clean of alcohol use for x3 days. Past Drug Use History: None Reported - Past Family History Father Family Medical History: Hypertension Mother Family Medical History: Cancer Additional Family Medical History / Comment(s): Lung cancer Medications and Allergies Home Medications Medication Instructions Recorded Confirmed Type Ginkgo Biloba 500 mg PO DAILY 11/07/19 11/07/19 History Multivit-Min/FA/Lycopen/Lutein 1 tab PO DAILY 11/07/19 11/07/19 History [Centrum Silver Men Tablet] [place]-3 Fatty Acids/Fish Oil [Fish 1 cap PO DAILY 11/07/19 11/07/19 History Oil 1,000 mg Softgel] Thiamine HCl [Vitamin B-1] 100 mg PO DAILY 11/07/19 11/07/19 History Allergies Allergy/AdvReac Type Severity Reaction Status Date / Time No Known Allergies Allergy Verified 11/07/19 18:33 Physical Exam Vitals: Vital Signs Temp Pulse Pulse Resp BP BP Pulse Ox 11/08/19 09:15 74 17 11/08/19 07:57 97.9 F 74 17 150/79 98 11/08/19 03:34 16 11/08/19 02:17 98.3 F 17 140/63 96 11/08/19 00:00 18 11/07/19 19:10 98.7 F 72 18 147/60 96 11/07/19 17:00 98.3 F 74 18 150/67 11/07/19 16:50 150/67 11/07/19 16:30 79 18 129/78 11/07/19 16:00 72 21 141/75 98 11/07/19 15:40 11 L 141/75 99 11/07/19 15:30 74 14 147/68 99 11/07/19 14:55 97.7 F 83 20 207/89 97 Intake and Output 11/07/19 11/08/19 11/08/19 22:59 06:59 14:59 Output Total 450 Balance -450 Output: Urine 450 Other: Voiding Method Urinal Bedside Commode # Voids 2 Weight 140.614 kg PHYSICAL EXAMINATION: GENERAL: The patient is alert and oriented x3, not in any acute distress. Obese HEENT: Pupils are round and equally reacting to light. EOMI. No scleral icterus. No conjunctival pallor. Normocephalic, atraumatic. No pharyngeal erythema. No thyromegaly. CARDIOVASCULAR: S1 and S2 present. No murmurs, rubs, or gallops. PULMONARY: Chest is clear to auscultation, no wheezing or crackles. ABDOMEN: Soft, nontender, nondistended, normoactive bowel sounds. No palpable organomegaly patient does have underlying hernia as well as a mechanical hernia none of them are incarcerated or strangulated. MUSCULOSKELETAL: No joint swelling or deformity. EXTREMITIES: No cyanosis, clubbing, or pedal edema. NEUROLOGICAL: Gross neurological examination did not reveal any focal deficits. SKIN: No rashes. Results CBC & Chem 7: 11/07/19 15:35 11/08/19 09:57 Labs: Abnormal Lab Results - Last 24 Hours (Table) 11/07/19 11/07/19 11/07/19 Range/Units 15:35 15:35 16:16 Lymphocytes # 0.9 L (1.0-4.8) k/uL Sodium 128 L (137-145) mmol/L Chloride 93 L (98-107) mmol/L Glucose 115 H (74-99) mg/dL POC Glucose (mg/dL) 111 H (75-99) mg/dL Total Bilirubin 2.1 H (0.2-1.3) mg/dL Creatine Kinase 225 H (55-170) U/L Ur Specific [place] (1.001-1.035) Urine Protein (Negative) Urine Ketones (Negative) Urine Blood (Negative) Urine Bilirubin (Negative) Urine RBC (0-5) /hpf Urine Mucus (None) /hpf 11/07/19 11/08/19 Range/Units 16:20 09:57 Lymphocytes # (1.0-4.8) k/uL Sodium 131 L (137-145) mmol/L Chloride (98-107) mmol/L Glucose 102 H (74-99) mg/dL POC Glucose (mg/dL) (75-99) mg/dL Total Bilirubin (0.2-1.3) mg/dL Creatine Kinase (55-170) U/L Ur Specific [place] 1.037 H (1.001-1.035) Urine Protein 1+ H (Negative) Urine Ketones 2+ H (Negative) Urine Blood Moderate H (Negative) Urine Bilirubin 1+ H (Negative) Urine RBC 15 H (0-5) /hpf Urine Mucus Few H (None) /hpf Thrombosis Risk Factor Assmnt - Choose All That Apply Any of the Below Risk Factors Present?: Yes Each Factor Represents 1 point: Medical pt on bed rest, Obesity (BMI >25) Other Risk Factors: Yes Each Risk Factor Represents 2 Points: Age 61-74 years Other congenital or acquired thrombophilia - If yes, enter type in comment: No Thrombosis Risk Factor Assessment Total Risk Factor Score: 4 Thrombosis Risk Factor Assessment Level: Moderate Risk Assessment and Plan Plan: -Hyponatremia hypovolemic hyponatremia because of poor by mouth intake and patient was started on IV fluids which will be continued for today we'll repeat basic metabolic profile tomorrow -Bilateral pedal edema secondary to chronic venous stasis without any evidence of a CHF, mildly suspicion is low for cirrhosis as well but patient does have bilirubin urea and total bilirubin is 2.1 -Generalized weakness secondary to deconditioning -Obesity and chronic venous stasis without any dermatosis -Mildly elevated CK no evidence of rhabdomyolysis -Mild hematuria urinary to be repeated in about a month Alcohol abuse and patient is trying to quit and patient last drink was 4 days ago patient doesn't have any withdrawals at this time -Peripheral neuropathy as requested by the patient hemoglobin A1c will be obtained -Chronic memory loss 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
[2019-11-08 16:47] LABS: Hemoglobin A1C 5.3 % (4.0-6.0)
[2019-11-09] MEDS: HEPARIN SODIUM,PORCINE 5,000 UNIT/ML 1 ML VIAL SQ SCH ×4 (00:44→23:23)
[2019-11-09] MEDS: THIAMINE 100 MG TAB PO SCH ×2 (07:42→15:51)
[2019-11-09] MEDS: MULTIVITAMINS, THERA 1 EACH TAB PO SCH (07:42)
[2019-11-09] MEDS: PANTOPRAZOLE 40 MG TABLET PO SCH (07:42)
[2019-11-09] MEDS: CHOLECALCIFEROL 1,000 UNIT TAB PO SCH (07:42)
[2019-11-09] MEDS: GABAPENTIN 100 MG CAP PO SCH ×3 (07:42→21:18)
[2019-11-09] MEDS: amLODIPine 5 MG TAB PO SCH (07:45)
[2019-11-09] MEDS: SODIUM CHLORIDE 0.9% 1,000 ML IV SCH ×2 (07:46→20:12)
[2019-11-09] MEDS ORDERED: POLYETHYLENE GLYCOL 3350 17 GM POWD.PACK PO PRN (11:11)
[2019-11-09 12:01] LABS: African American GFR (CKD) >90 (>60 ml/min/1.73 sqM); Anion Gap 5 mmol/L; Blood Urea Nitrogen 16 mg/dL (9-20); Calcium 9.2 mg/dL (8.4-10.2); Carbon Dioxide 29 mmol/L (22-30); Chloride 100 mmol/L (98-107); Glucose 111 mg/dL (74-99); Non-African American GFR(CKD) >90 (>60 ml/min/1.73 sqM); Potassium 4.5 mmol/L (3.5-5.1); Sodium 134 mmol/L (137-145)
--- NOTE | 2019-11-09 12:06 | P.PN ---
Subjective 69-year-old male with history of chronic alcoholism last drink was about 4 days ago came in with compensative generalized weakness and peripheral neuropathy. Patient has been falling and the kids multiple times. Patient is bit hyponatremic patient was started on IV fluids with improvement in sodium to 131 physical therapy evaluated the patient is recommending subacute rehabilitation patient was comparing of memory issues and he is requesting a scan as he believes he has dementia. If he has multiple complaints and the multiple questions he has questions about ventral hernia and umbilicus hernia which he wants to be fixed, patient says his are peripheral neuropathy has been worsening. Patient wants hemoglobin A1c to be ordered. Patient denied any fever chills dysuria. Patient does have bilateral lower nonpitting pedal edema 11/09/2019 Patient's symptoms were continued to improve patient is feeling much better today hemoglobin A1c is pending patient scored 29/30 in mini cognitive testing. They have mild dementia secondary to probably chronic alcoholism. Patient is awaiting disposition to subacute rehabilitation on Monday Constitutional: Denied any fatigue denied any fever. Cardio vascular: denied any chest pain, palpitations Gastrointestinal denied any nausea vomiting Pulmonary: Denied any shortness of breath cough Neurologic denied any new focal deficits All inpatient medications were reviewed and appropriate changes in these medications as dictated in the interval history and assessment and plan. Objective - Vital Signs Vital signs: Vital Signs Temp 98.3 F 11/09/19 07:00 Pulse 85 11/09/19 07:00 Resp 17 11/09/19 07:00 BP 136/79 11/09/19 07:00 Pulse Ox 97 11/09/19 07:00 Intake & Output 11/08/19 11/09/19 11/09/19 18:59 06:59 18:59 Output Total 100 250 Balance -100 -250 Output: Urine 100 250 Other: Voiding Method Bedside Commode # Voids 1 2 # Bowel Movements 1 - Exam PHYSICAL EXAMINATION: GENERAL: The patient is alert and oriented x3, not in any acute distress. Obese HEENT: Pupils are round and equally reacting to light. EOMI. No scleral icterus. No conjunctival pallor. Normocephalic, atraumatic. No pharyngeal erythema. No thyromegaly. CARDIOVASCULAR: S1 and S2 present. No murmurs, rubs, or gallops. PULMONARY: Chest is clear to auscultation, no wheezing or crackles. ABDOMEN: Soft, nontender, nondistended, normoactive bowel sounds. No palpable organomegaly patient does have underlying hernia as well as a mechanical hernia none of them are incarcerated or strangulated. MUSCULOSKELETAL: No joint swelling or deformity. EXTREMITIES: No cyanosis, clubbing, or pedal edema. NEUROLOGICAL: Gross neurological examination did not reveal any focal deficits. SKIN: No rashes. - Labs CBC & Chem 7: 11/07/19 15:35 11/09/19 11:32 Labs: Abnormal Lab Results - Last 24 Hours (Table) 11/09/19 Range/Units 11:32 Sodium 134 L (137-145) mmol/L Glucose 111 H (74-99) mg/dL Microbiology - Last 24 Hours (Table) 11/07/19 15:35 Blood Culture - Preliminary Blood No Growth after 24 hours Assessment and Plan Plan: -Hyponatremia hypovolemic hyponatremia because of poor by mouth intake and patient was started on IV fluids which will be continued for today we'll repeat basic metabolic profile tomorrowimproving serum sodium -Bilateral pedal edema secondary to chronic venous stasis without any evidence of a CHF, mildly suspicion is low for cirrhosis as well but patient does have bilirubin urea and total bilirubin is 2.1 -Generalized weakness secondary to deconditioning -Obesity and chronic venous stasis without any dermatosis -Mildly elevated CK no evidence of rhabdomyolysis -Mild hematuria urinary to be repeated in about a month Alcohol abuse and patient is trying to quit and patient last drink was 4 days ago patient doesn't have any withdrawals at this time -Peripheral neuropathy as requested by the patient hemoglobin A1c will be obtained -Chronic memory loss 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
[2019-11-09] MEDS: HYDROcodone/APAP 5-325MG 1 EACH TAB PO PRN ×2 (15:53→21:18)
[2019-11-09] MEDS: KETOROLAC 30 MG/ML 1 ML VIAL IVP PRN (15:54)
[2019-11-10] MEDS: SODIUM CHLORIDE 0.9% 1,000 ML IV SCH (04:27)
[2019-11-10] MEDS: amLODIPine 5 MG TAB PO SCH (08:02)
[2019-11-10] MEDS: HYDROcodone/APAP 5-325MG 1 EACH TAB PO PRN ×2 (08:03→17:01)
[2019-11-10] MEDS: CHOLECALCIFEROL 1,000 UNIT TAB PO SCH (08:03)
[2019-11-10] MEDS: GABAPENTIN 100 MG CAP PO SCH ×3 (08:03→21:59)
[2019-11-10] MEDS: PANTOPRAZOLE 40 MG TABLET PO SCH (08:03)
[2019-11-10] MEDS: THIAMINE 100 MG TAB PO SCH ×2 (08:03→17:01)
[2019-11-10] MEDS: MULTIVITAMINS, THERA 1 EACH TAB PO SCH (08:03)
[2019-11-10] MEDS: HEPARIN SODIUM,PORCINE 5,000 UNIT/ML 1 ML VIAL SQ SCH ×2 (08:03→17:01)
[2019-11-10] MEDS: KETOROLAC 30 MG/ML 1 ML VIAL IVP PRN ×2 (08:09→17:01)
--- NOTE | 2019-11-10 10:13 | P.PN ---
Subjective 69-year-old male with history of chronic alcoholism last drink was about 4 days ago came in with compensative generalized weakness and peripheral neuropathy. Patient has been falling and the kids multiple times. Patient is bit hyponatremic patient was started on IV fluids with improvement in sodium to 131 physical therapy evaluated the patient is recommending subacute rehabilitation patient was comparing of memory issues and he is requesting a scan as he believes he has dementia. If he has multiple complaints and the multiple questions he has questions about ventral hernia and umbilicus hernia which he wants to be fixed, patient says his are peripheral neuropathy has been worsening. Patient wants hemoglobin A1c to be ordered. Patient denied any fever chills dysuria. Patient does have bilateral lower nonpitting pedal edema 11/09/2019 Patient's symptoms were continued to improve patient is feeling much better today hemoglobin A1c is pending patient scored 29/30 in mini cognitive testing. They have mild dementia secondary to probably chronic alcoholism. Patient is awaiting disposition to subacute rehabilitation on Monday11/10/2019 Patient's hemoglobin A1c is 5.5 patient is not diabetic serum sodium continue to improve IV fluids and discontinued Constitutional: Denied any fatigue denied any fever. Cardio vascular: denied any chest pain, palpitations Gastrointestinal denied any nausea vomiting Pulmonary: Denied any shortness of breath cough Neurologic denied any new focal deficits All inpatient medications were reviewed and appropriate changes in these medications as dictated in the interval history and assessment and plan. Objective - Vital Signs Vital signs: Vital Signs Temp 98.4 F 11/10/19 07:00 Pulse 76 11/10/19 07:00 Resp 17 11/10/19 07:00 BP 117/71 11/10/19 07:00 Pulse Ox 96 11/10/19 07:00 Intake & Output 11/09/19 11/10/19 11/10/19 18:59 06:59 18:59 Output Total 500 200 Balance -500 -200 Output: Urine 500 200 - Exam PHYSICAL EXAMINATION: GENERAL: The patient is alert and oriented x3, not in any acute distress. Obese HEENT: Pupils are round and equally reacting to light. EOMI. No scleral icterus. No conjunctival pallor. Normocephalic, atraumatic. No pharyngeal erythema. No thyromegaly. CARDIOVASCULAR: S1 and S2 present. No murmurs, rubs, or gallops. PULMONARY: Chest is clear to auscultation, no wheezing or crackles. ABDOMEN: Soft, nontender, nondistended, normoactive bowel sounds. No palpable organomegaly patient does have underlying hernia as well as a mechanical hernia none of them are incarcerated or strangulated. MUSCULOSKELETAL: No joint swelling or deformity. EXTREMITIES: No cyanosis, clubbing, or pedal edema. NEUROLOGICAL: Gross neurological examination did not reveal any focal deficits. SKIN: No rashes. - Labs CBC & Chem 7: 11/07/19 15:35 11/09/19 11:32 Labs: Abnormal Lab Results - Last 24 Hours (Table) 11/09/19 Range/Units 11:32 Sodium 134 L (137-145) mmol/L Glucose 111 H (74-99) mg/dL Microbiology - Last 24 Hours (Table) 11/07/19 15:35 Blood Culture - Preliminary Blood No Growth after 48 hours Assessment and Plan Plan: -Hyponatremia hypovolemic hyponatremia because of poor by mouth intake, serum sodium improved patient's IV fluids were discontinued -Bilateral pedal edema secondary to chronic venous stasis without any evidence of a CHF, mildly suspicion is low for cirrhosis as well but patient does have bilirubin urea and total bilirubin is 2.1 -Generalized weakness secondary to deconditioning -Obesity and chronic venous stasis without any dermatosis -Mildly elevated CK no evidence of rhabdomyolysis -Mild hematuria urinary to be repeated in about a month Alcohol abuse and patient is trying to quit and patient last drink was 4 days ago patient doesn't have any withdrawals at this time -Peripheral neuropathy as requested by the patient hemoglobin A1c will be obtained -Chronic memory loss 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
[2019-11-11] MEDS: HEPARIN SODIUM,PORCINE 5,000 UNIT/ML 1 ML VIAL SQ SCH ×2 (00:32→07:39)
[2019-11-11 07:21] VITALS: BP 148/76; PULSE 71; RESP 18; TEMP 98.6
[2019-11-11 07:21] LABS: African American GFR (CKD) >90 (>60 ml/min/1.73 sqM); Anion Gap 5 mmol/L; Blood Urea Nitrogen 18 mg/dL (9-20); Calcium 9.2 mg/dL (8.4-10.2); Carbon Dioxide 25 mmol/L (22-30); Chloride 104 mmol/L (98-107); Glucose 105 mg/dL (74-99); Non-African American GFR(CKD) >90 (>60 ml/min/1.73 sqM); Potassium 4.2 mmol/L (3.5-5.1); Sodium 134 mmol/L (137-145)
[2019-11-11] MEDS: CHOLECALCIFEROL 1,000 UNIT TAB PO SCH (07:36)
[2019-11-11] MEDS: THIAMINE 100 MG TAB PO SCH (07:36)
[2019-11-11] MEDS: amLODIPine 5 MG TAB PO SCH (07:36)
[2019-11-11] MEDS: PANTOPRAZOLE 40 MG TABLET PO SCH (07:36)
[2019-11-11] MEDS: MULTIVITAMINS, THERA 1 EACH TAB PO SCH (07:36)
[2019-11-11] MEDS: HYDROcodone/APAP 5-325MG 1 EACH TAB PO PRN ×2 (07:36→15:12)
[2019-11-11] MEDS: GABAPENTIN 100 MG CAP PO SCH (07:36)
[2019-11-11] MEDS ORDERED: SODIUM CHLORIDE 0.9% 1,000 ML IV SCH (09:00)
--- NOTE | 2019-11-11 12:01 | P.DS ---
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 Total time taken is 35 minutes. History of present illness 69-year-old male with history of chronic alcoholism last drink was about 4 days ago came in with compensative generalized weakness and peripheral neuropathy. Patient has been falling and the kids multiple times. Patient is bit hyponatremic patient was started on IV fluids with improvement in sodium to 131 physical therapy evaluated the patient is recommending subacute rehabilitation patient was comparing of memory issues and he is requesting a scan as he believes he has dementia. If he has multiple complaints and the multiple questions he has questions about ventral hernia and umbilicus hernia which he wants to be fixed, patient says his are peripheral neuropathy has been worsening. Patient wants hemoglobin A1c to be ordered. Patient denied any fever chills dysuria. Patient does have bilateral lower nonpitting pedal edema 11/09/2019 Patient's symptoms were continued to improve patient is feeling much better today hemoglobin A1c is pending patient scored 29/30 in mini cognitive testing. They have mild dementia secondary to probably chronic alcoholism. Patient is awaiting disposition to subacute rehabilitation on Monday11/10/2019 Patient's hemoglobin A1c is 5.5 patient is not diabetic serum sodium continue to improve IV fluids and discontinued Constitutional: Denied any fatigue denied any fever. Cardio vascular: denied any chest pain, palpitations Gastrointestinal denied any nausea vomiting Pulmonary: Denied any shortness of breath cough Neurologic denied any new focal deficits 11/11/2019 Patient has received authorization to [facility] for continued PT/OT therapy. Patient has been working with physical therapy and has been walking the halls. Patient continues to have some mild weakness and will likely benefit from continued PT/OT therapy. Discussed with the patient at length about refraining from any alcohol intake. Patient verbalized understanding. Patient continues to have mild memory loss which is probably most likely due to chronic alcoholism. Patient will need to follow-up with primary care provider upon discharge. Currently no reports of chest pain, shortness of breath, or palpitations. Patient is afebrile. No reports of nausea or vomiting and patient is tolerating diet. Patient sodium slightly low at 134 although has improved since admission. On exam vital signs are stable. Temp is 98.6F, pulse is 71, respirations are 18, blood pressure is 148/76, oxygen saturation is 97% on room air. Cardio S1, S2 are present. Respiratory shows clear to auscultation. Abdomen is soft, obese, nontender. Nervous system shows mild diffuse weakness. Please refer to medication reconciliation sheet for a list of medications. Patient Condition at Discharge: Stable Plan - Discharge Summary New Discharge Prescriptions: New Gabapentin [Neurontin] 200 mg PO TID #6 cap HYDROcodone/APAP 5-325MG [[place] 5-325] 1 each PO Q6HR PRN #4 tab PRN Reason: Moderate Pain amLODIPine [Norvasc] 5 mg PO DAILY tab Polyethylene Glycol 3350 [Miralax] 17 gm PO DAILY PRN powd.pack PRN Reason: Constipation Pantoprazole [Protonix] 40 mg PO AC-BRKFST tablet. Thiamine [Vitamin B-1] 100 mg PO BID-W/MEALS tab Continue [place]-3 Fatty Acids/Fish Oil [Fish Oil 1,000 mg Softgel] 1 cap PO DAILY Ginkgo Biloba 500 mg PO DAILY Multivit-Min/FA/Lycopen/Lutein [Centrum Silver Men Tablet] 1 tab PO DAILY Discontinued Thiamine HCl [Vitamin B-1] 100 mg PO DAILY Discharge Medication List Ginkgo Biloba 500 mg PO DAILY 11/07/19 [History] Multivit-Min/FA/Lycopen/Lutein [Centrum Silver Men Tablet] 1 tab PO DAILY 11/07/19 [History] [place]-3 Fatty Acids/Fish Oil [Fish Oil 1,000 mg Softgel] 1 cap PO DAILY 11/07/19 [History] Gabapentin [Neurontin] 200 mg PO TID #6 cap 11/11/19 [Rx] HYDROcodone/APAP 5-325MG [[place] 5-325] 1 each PO Q6HR PRN #4 tab 11/11/19 [Rx] Pantoprazole [Protonix] 40 mg PO AC-BRKFST tablet. 11/11/19 [Rx] Polyethylene Glycol 3350 [Miralax] 17 gm PO DAILY PRN powd.pack 11/11/19 [Rx] Thiamine [Vitamin B-1] 100 mg PO BID-W/MEALS tab 11/11/19 [Rx] amLODIPine [Norvasc] 5 mg PO DAILY tab 11/11/19 [Rx] Follow up Appointment(s)/Referral(s): None,Stated [Primary Care Provider] - 1-2 days Activity/Diet/Wound Care/Special Instructions: Patient is going to [facility] Activity as tolerated Continue current diet Follow-up with primary care provider upon discharge Continue to refrain from any alcohol intake Discharge Disposition: TRANSFER TO SNF/ECF
== END 2019-11-11 15:25 | DRG 641 ==
LOC: EC 14:53 → 4SSUR 16:39
PROVIDERS: ADMIT Internal Medicine; ATTEND Internal Medicine
DX: E87.1 Hypo-osmolality and hyponatremia (principal); Z68.41 Body mass index [BMI] 40.0-44.9, adult; F10.27 Alcohol dependence with alcohol-induced persisting dementia; E86.1 Hypovolemia; E66.9 Obesity, unspecified; G62.9 Polyneuropathy, unspecified; I10 Essential (primary) hypertension; I87.8 Other specified disorders of veins; Z80.1 Family history of malignant neoplasm of trachea, bronchus and lung; Z82.49 Family history of ischemic heart disease and other diseases of the circulatory system; K42.9 Umbilical hernia without obstruction or gangrene; K43.9 Ventral hernia without obstruction or gangrene; G89.29 Other chronic pain; M54.9 Dorsalgia, unspecified; R79.89 Other specified abnormal findings of blood chemistry; R31.9 Hematuria, unspecified; R29.6 Repeated falls; Z91.81 History of falling
CPT/HCPCS: 36415; 71046; 80048; 80053; 80320; 81001; 82140; 82550; 83036; 83690; 83735; 84484; 85025; 87040; 87502; 93005; 96372; 96374; 99285

== ENCOUNTER 2019-12-02 14:47 | Inpatient (IN) | payer MEDICARE ==
[2019-12-02] MEDS ORDERED: SODIUM CHLORIDE 0.9% 500 ML 500 ML IV STA (15:14)
[2019-12-02 15:26] LABS: Basophils # (A) 0.1 k/uL (0-0.2); Basophils % (A) 1 %; Eosinophils # (A) 0.5 k/uL (0-0.7); Eosinophils % (A) 6 %; HCT 41.2 % (39.0-53.0); HGB 13.8 gm/dL (13.0-17.5); Lymphocytes # (A) 1.7 k/uL (1.0-4.8); Lymphocytes % (A) 22 %; MCH 33.3 pg (25.0-35.0); MCHC 33.4 g/dL (31.0-37.0); MCV 99.5 fL (80.0-100.0); Mean Platelet Volume 7.1; Monocytes # (A) 0.7 k/uL (0-1.0); Monocytes % (A) 9 %; Neutrophils # (A) 4.6 k/uL (1.3-7.7); Neutrophils % (A) 58 %; Platelet Count 307 k/uL (150-450); RBC 4.14 m/uL (4.30-5.90); RDW 11.9 % (11.5-15.5); WBC 7.8 k/uL (3.8-10.6)
--- NOTE | 2019-12-02 15:32 | ED ---
General Adult HPI - General Chief complaint: Neck Pain/Injury Stated complaint: Fever/Cough/SOB/Fall Time Seen by Provider: 12/02/19 14:50 Source: EMS, RN notes reviewed Mode of arrival: EMS Limitations: no limitations - History of Present Illness Initial comments: 69-year-old male with a past medical history of alcoholic abuse, chronic back pain, lymphedema, hypertension presents to the emergency department for a chief complaint of weakness. Patient was released from a long-term care facility 2 days ago for which she was receiving rehab for weakness. Patient has apparently fallen more than 3 times since being home. Patient again fell today. Fire rescue was called. Patient was brought in for neck pain, low back pain, and weakness. Patient unsure if he hit his head. He does not have loss of consciousness. No chest pain or shortness of breath associated with this. Patient also has apparently had a cough for the past couple days. He apparently had a fever in the ambulance. Patient is denying any abdominal pain or any other injuries.Patient has no other complaints at this time including shortness of breath, chest pain, abdominal pain, nausea or vomiting, headache, or visual changes. - Related Data Home Medications Medication Instructions Recorded Confirmed Ginkgo Biloba 500 mg PO DAILY 11/07/19 11/07/19 Multivit-Min/FA/Lycopen/Lutein 1 tab PO DAILY 11/07/19 11/07/19 [Centrum Silver Men Tablet] [place]-3 Fatty Acids/Fish Oil [Fish 1 cap PO DAILY 11/07/19 11/07/19 Oil 1,000 mg Softgel] Previous Rx's Medication Instructions Recorded Gabapentin [Neurontin] 200 mg PO TID #6 cap 11/11/19 HYDROcodone/APAP 5-325MG [[place] 1 each PO Q6HR PRN #4 tab 11/11/19 5-325] Pantoprazole [Protonix] 40 mg PO AC-BRKFST tablet. 11/11/19 Polyethylene Glycol 3350 [Miralax] 17 gm PO DAILY PRN powd.pack 11/11/19 Thiamine [Vitamin B-1] 100 mg PO BID-W/MEALS tab 11/11/19 amLODIPine [Norvasc] 5 mg PO DAILY tab 11/11/19 Allergies Allergy/AdvReac Type Severity Reaction Status Date / Time No Known Allergies Allergy Verified 12/02/19 14:54 Review of Systems ROS Statement: Those systems with pertinent positive or pertinent negative responses have been documented in the HPI. ROS Other: All systems not noted in ROS Statement are negative. Past Medical History Past Medical History: Hypertension Additional Past Medical History / Comment(s): ETOH abuse, chronic back pain, BLE neuropathy, lymphedema History of Any Multi-Drug Resistant Organisms: None Reported Past Surgical History: Back Surgery, Orthopedic Surgery, Tonsillectomy Additional Past Surgical History / Comment(s): 3 back laminectomies, hand surgery s/p trauma to reattatch tendons Past Anesthesia/Blood Transfusion Reactions: No Reported Reaction Past Psychological History: No Psychological Hx Reported Smoking Status: Never smoker Past Alcohol Use History: Occasional Past Drug Use History: None Reported - Past Family History Father Family Medical History: Hypertension Mother Family Medical History: Cancer Additional Family Medical History / Comment(s): Lung cancer General Exam Limitations: no limitations General appearance: alert, in no apparent distress Head exam: Present: atraumatic, normocephalic, normal inspection Eye exam: Present: normal appearance, PERRL, EOMI. Absent: scleral icterus, conjunctival injection, periorbital swelling ENT exam: Present: normal exam, mucous membranes moist, TM's normal bilaterally Neck exam: Present: other (C-collar in place). Absent: tenderness, meningismus, lymphadenopathy Respiratory exam: Present: normal lung sounds bilaterally. Absent: respiratory distress, wheezes, rales, rhonchi, stridor Cardiovascular Exam: Present: regular rate, normal rhythm, normal heart sounds. Absent: systolic murmur, diastolic murmur, rubs, gallop, clicks GI/Abdominal exam: Present: soft, normal bowel sounds. Absent: distended, tenderness, guarding, rebound, rigid, other (No evidence of ecchymosis or trauma) Back exam: Present: other (Patient has generalized lumbar tenderness. Sensation intact in lower extremities. No ecchymosis, skin exam normal) Neurological exam: Present: alert, oriented X3 Course Vital Signs 12/02/19 12/02/19 12/02/19 14:51 16:54 17:12 Temperature 98.1 F 97.1 F L Pulse Rate 63 61 Respiratory 18 18 Rate Blood Pressure 152/75 151/7 O2 Sat by Pulse 98 98 Oximetry EKG Findings - EKG Comments: EKG Findings:: Sinus bradycardia, ventricular rate 59, AK interval 214, QTc 435 Medical Decision Making - Medical Decision Making Vitals are stable. HPI and physical exam as documented. Of note, patient was recently discharged from an extended care facility which she was at for rehabilitation for his weakness. Over the past 2 days patient has had multiple falls. According to fire rescue physical therapist was at the house and was unable to get patient up off the floor after his fall. Fire states the house is not conducive to patient's physical ability. CBC CMP unremarkable. Urinalysis is negative. Alcohol is negative. Patient was recently admitted for alcohol intoxication and withdrawal but states he has not had a drink since that time. Trauma workup was negative. At this time patient is unable to get out of bed without significant assistance. Patient will be admitted and will likely require long-term care placement. Dr. Eckert discussed this case with Dr. Farah - Lab Data Result diagrams: 12/02/19 15:16 12/02/19 15:16 Lab Results 12/02/19 12/02/19 12/02/19 Range/Units 15:16 15:16 15:16 WBC 7.8 (3.8-10.6) k/uL RBC 4.14 L (4.30-5.90) m/uL Hgb 13.8 (13.0-17.5) gm/dL Hct 41.2 (39.0-53.0) % MCV 99.5 (80.0-100.0) fL MCH 33.3 (25.0-35.0) pg MCHC 33.4 (31.0-37.0) g/dL RDW 11.9 (11.5-15.5) % Plt Count 307 (150-450) k/uL Neutrophils % 58 % Lymphocytes % 22 % Monocytes % 9 % Eosinophils % 6 % Basophils % 1 % Neutrophils # 4.6 (1.3-7.7) k/uL Lymphocytes # 1.7 (1.0-4.8) k/uL Monocytes # 0.7 (0-1.0) k/uL Eosinophils # 0.5 (0-0.7) k/uL Basophils # 0.1 (0-0.2) k/uL PT 10.3 (9.0-12.0) sec INR 1.0 (<1.2) APTT 22.9 (22.0-30.0) sec Sodium 135 L (137-145) mmol/L Potassium 4.9 (3.5-5.1) mmol/L Chloride 99 (98-107) mmol/L Carbon Dioxide 32 H (22-30) mmol/L Anion Gap 4 mmol/L BUN 22 H (9-20) mg/dL Creatinine 0.79 (0.66-1.25) mg/dL Est GFR (CKD-EPI)AfAm >90 (>60 ml/min/1.73 sqM) Est GFR (CKD-EPI)NonAf >90 (>60 ml/min/1.73 sqM) Glucose 130 H (74-99) mg/dL Calcium 9.8 (8.4-10.2) mg/dL Magnesium 2.0 (1.6-2.3) mg/dL Total Bilirubin 0.5 (0.2-1.3) mg/dL AST 42 (17-59) U/L ALT 25 (4-49) U/L Alkaline Phosphatase 72 (38-126) U/L Total Protein 6.8 (6.3-8.2) g/dL Albumin 4.0 (3.5-5.0) g/dL Urine Color Urine Appearance (Clear) Urine pH (5.0-8.0) Ur Specific [place] (1.001-1.035) Urine Protein (Negative) Urine Glucose (UA) (Negative) Urine Ketones (Negative) Urine Blood (Negative) Urine Nitrite (Negative) Urine Bilirubin (Negative) Urine Urobilinogen (<2.0) mg/dL Ur Leukocyte Esterase (Negative) Serum Alcohol mg/dL 12/02/19 12/02/19 Range/Units 15:25 15:30 WBC (3.8-10.6) k/uL RBC (4.30-5.90) m/uL Hgb (13.0-17.5) gm/dL Hct (39.0-53.0) % MCV (80.0-100.0) fL MCH (25.0-35.0) pg MCHC (31.0-37.0) g/dL RDW (11.5-15.5) % Plt Count (150-450) k/uL Neutrophils % % Lymphocytes % % Monocytes % % Eosinophils % % Basophils % % Neutrophils # (1.3-7.7) k/uL Lymphocytes # (1.0-4.8) k/uL Monocytes # (0-1.0) k/uL Eosinophils # (0-0.7) k/uL Basophils # (0-0.2) k/uL PT (9.0-12.0) sec INR (<1.2) APTT (22.0-30.0) sec Sodium (137-145) mmol/L Potassium (3.5-5.1) mmol/L Chloride (98-107) mmol/L Carbon Dioxide (22-30) mmol/L Anion Gap mmol/L BUN (9-20) mg/dL Creatinine (0.66-1.25) mg/dL Est GFR (CKD-EPI)AfAm (>60 ml/min/1.73 sqM) Est GFR (CKD-EPI)NonAf (>60 ml/min/1.73 sqM) Glucose (74-99) mg/dL Calcium (8.4-10.2) mg/dL Magnesium (1.6-2.3) mg/dL Total Bilirubin (0.2-1.3) mg/dL AST (17-59) U/L ALT (4-49) U/L Alkaline Phosphatase (38-126) U/L Total Protein (6.3-8.2) g/dL Albumin (3.5-5.0) g/dL Urine Color Yellow Urine Appearance Clear (Clear) Urine pH 6.5 (5.0-8.0) Ur Specific [place] 1.018 (1.001-1.035) Urine Protein Trace H (Negative) Urine Glucose (UA) Negative (Negative) Urine Ketones Negative (Negative) Urine Blood Negative (Negative) Urine Nitrite Negative (Negative) Urine Bilirubin Negative (Negative) Urine Urobilinogen <2.0 (<2.0) mg/dL Ur Leukocyte Esterase Negative (Negative) Serum Alcohol <10 mg/dL Disposition Clinical Impression: Weakness, Fall, Neck pain Disposition: ADMITTED IP TO THIS [facility] Condition: Fair Is patient prescribed a controlled substance at d/c from ED?: No Referrals: None,Stated [Primary Care Provider] - 1-2 days Time of Disposition: 17:25
[2019-12-02 15:35] LABS: ALT 25 U/L (4-49); AST 42 U/L (17-59); African American GFR (CKD) >90 (>60 ml/min/1.73 sqM); Alkaline Phosphatase 72 U/L (38-126); Anion Gap 4 mmol/L; Blood Urea Nitrogen 22 mg/dL (9-20); Calcium 9.8 mg/dL (8.4-10.2); Carbon Dioxide 32 mmol/L (22-30); Chloride 99 mmol/L (98-107); Glucose 130 mg/dL (74-99); Non-African American GFR(CKD) >90 (>60 ml/min/1.73 sqM); Potassium 4.9 mmol/L (3.5-5.1); Sodium 135 mmol/L (137-145); Total Bilirubin 0.5 mg/dL (0.2-1.3); Total Protein 6.8 g/dL (6.3-8.2)
[2019-12-02 15:39] LABS: Partial Thromboplastin Time 22.9 sec (22.0-30.0); Prothrombin Time 10.3 sec (9.0-12.0)
[2019-12-02 15:58] LABS: Appearance,Urine Clear (Clear); Bilirubin,Urine Negative (Negative); Blood,Urine Negative (Negative); Color,Urine Yellow; Glucose,Urine (UA) Negative (Negative); Ketones,Urine Negative (Negative); Leukocyte Esterase,Urine Negative (Negative); Nitrite,Urine Negative (Negative); PH, Urine 6.5 (5.0-8.0); Protein,Urine Trace (Negative); Specific Gravity,Urine 1.018 (1.001-1.035); Urobilinogen,Urine <2.0 mg/dL (<2.0)
--- NOTE | 2019-12-02 16:04 | CT ---
EXAMINATION TYPE: CT brain cspine wo con DATE OF EXAM: 12/02/2019 COMPARISON: CT brain dated 06/19/2019 HISTORY: Fall injury. Head and neck pain. CT DLP: 1913.5 mGycm. Automated Exposure Control for Dose Reduction was Utilized. TECHNIQUE: CT scan of the head and cervical spine are performed without contrast. FINDINGS: Motion artifact limits the examination, particularly of the cervical spine. There is no acute intracranial hemorrhage, mass effect, or midline shift identified. Few areas of per iventricular hypoattenuation are again seen most commonly related to sequela of microangiopathy. The ventricles and sulci are within normal limits in size. The globes are intact and the visualized sinu ses are clear other than very scant mucosal thickening in the left maxillary sinus. Cervical spine is visualized in its entirety from C1 through upper thoracic levels and demonstrates s atisfactory alignment vertebral body heights without acute fracture. Minimal grade 1 anterolisthesis of C2 on C3 is likely on a degenerative basis. Overall mild to moderate degenerative changes of the c ervical spine with multilevel intervertebral disc space narrowing, anterior osteophytes, uncovertebra l hypertrophy and facet arthropathy. Reversal of the usual cervical lordosis is seen. Prevertebral so ft tissue appears within normal limits. The C1-C2 articulation is unremarkable. Incidentally noted medialization of the course of the common carotid arteries. Minimal biapical pleural thickening. IMPRESSION: 1. Slight limitation in evaluation given patient motion. There is no gross evidence of acute fracture evident in the cervical spine. Very minimal grade 1 anterolisthesis of C2 on C3 is likely on a degen erative basis. 2. No acute intracranial hemorrhage, mass effect, or midline shift is seen. Similar mild burden nonsp ecific white matter change in comparison to the prior. 3. Reversal of the usual cervical lordosis may be on the basis of muscular strain/spasm or patient p ositioning.
--- NOTE | 2019-12-02 16:13 | CT ---
EXAMINATION TYPE: CT pelvis wo con DATE OF EXAM: 12/02/2019 COMPARISON: None HISTORY: Fall injury. Pelvic pain. CT DLP: 1267.1 mGycm Automated exposure control for dose reduction was used. TECHNIQUE: Contiguous axial CT slices were obtained of the pelvis without the utilization of intraven ous or oral contrast limiting evaluation of the visualized solid and hollow viscera. FINDINGS: Probable renal sinus cysts are seen bilaterally, left greater than right. Punctate 2 mm non obstructing left lower pole renal calculus is seen. Only the most inferior aspect of the liver is marcel ged in its unenhanced, limiting evaluation. Questionable subtle hepatic lesion measures 3 mm on image 2. Visualized portions of the gallbladder are unremarkable. Periumbilical fat filled small hernia is seen. Appendix is within normal limits size and without periappendiceal fat stranding however append icoliths are noted. Urinary bladder is decompressed and suboptimally evaluated. Sigmoid colonic diver ticula are seen without pericolonic fat stranding. No greater than 1 cm short axis lymph node in the abdomen or pelvis. Moderate degenerative changes of the lumbosacral spine are seen with opposing surface endplate sclero sis, intervertebral disc phenomenon, posterior projecting osteophytes, facet arthropathy, and anterio r osteophytes. Sacroiliac joints are symmetric without widening. No acute displaced pelvic fracture i s seen. Moderate arthropathy of the hips. Few scattered punctate sclerotic foci of the pelvis, most c ommonly small bone islands. IMPRESSION: 1. NO ACUTE DISPLACED PELVIC FRACTURE SEEN. 2. MODERATE DEGENERATIVE DISC DISEASE OF THE VISUALIZED LUMBOSACRAL JUNCTION. 3. QUESTIONABLE PUNCTATE HEPATIC LESION ALTHOUGH UNENHANCED IMAGES OF THE VERY INFERIOR MARGIN THE LI JOSSY ARE ONLY OBTAINED. NONEMERGENT FOLLOW-UP CT ABDOMEN COULD FURTHER ASSESS THIS FINDING. 4. NONOBSTRUCTING PUNCTATE LEFT LOWER POLE RENAL CALCULUS AND PROBABLE BILATERAL RENAL SINUS CYSTS, L EFT GREATER THAN RIGHT. 5. SCATTERED FEW PUNCTATE SCLEROTIC FOCI IN THE PELVIS, MOST COMMONLY SMALL BONE ISLANDS.
--- NOTE | 2019-12-02 16:19 | CT ---
EXAMINATION TYPE: CT lumbar spine wo con DATE OF EXAM: 12/02/2019 3:59 PM COMPARISON: None HISTORY: Fall injury. Back pain. CT DLP: 2133 mGycm Automated exposure control for dose reduction was used. TECHNIQUE: Unenhanced CT of the lumbar spine was performed. Bone and soft tissue window settings are submitted as well as coronal and sagittal reconstructions. FINDINGS: Minimal right basilar subsegmental atelectasis is partially visualized. Probable left renal sinus cysts are seen on the limited without intravenous contrast. Vertebral body heights are maintai demetria. Multilevel Schmorl's nodes are seen with intervertebral disc space narrowing, vacuum disc phenom enon, anterior and posterior osteophytes, facet arthropathy, and endplate sclerosis. The patient is n ot centered in the gantry on coronal imaging. Punctate nonobstructing left lower pole renal calculus is partially visualized on coronal imaging. Spinal canal is limited on CT. Evaluation for disc hernia tion is also limited on CT. L1-L2: There is a left eccentric broad-based disc bulge and facet arthropathy resulting in moderate b ilateral neural foraminal narrowing. No discrete spinal canal stenosis. L2-L3: There is a broad-based disc bulge and facet arthropathy with ligamentum flavum buckling result ing in moderate bilateral neural foraminal narrowing and mild to moderate spinal canal stenosis. L3-L4: There is a questioned right paracentral disc herniation, broad-based disc bulge, ligamentum fl avum buckling and facet arthropathy resulting in moderate to severe bilateral neural foraminal narrow ing and severe spinal canal stenosis. There appears to be a right laminectomy defect at this level. L4-L5: There is a central disc herniation, broad-based disc bulge, facet arthropathy, and ligamentum flavum buckling creating moderate to severe left and severe right neural foraminal narrowing and guerda re spinal canal stenosis. L5-S1: There is a right eccentric disc bulge, facet arthropathy, and ligamentum flavum hypertrophy cr eating severe bilateral neural foraminal narrowing and mild spinal canal stenosis. Central disc herni ation is questioned. Paraspinal musculature atrophy is seen throughout. IMPRESSION: 1. No acute compression deformity or malalignment of the lumbar spine. 2. Moderate to severe multilevel degenerative disc disease of the lumbar spine with multilevel spinal canal stenosis and probable multilevel disc herniations at would be better evaluated with MRI. Spina l canal stenosis ranges from mild to severe and is detailed age level above. Variable degree neural f oraminal narrowing is also detailed age level above. Spinal canal is limited on CT.
[2019-12-02] MEDS ORDERED: MORPHINE SULFATE 4 MG/ML SYRINGE IVP STA (16:20)
--- NOTE | 2019-12-02 16:31 | XR ---
EXAMINATION TYPE: XR chest 2V DATE OF EXAM: 12/02/2019 COMPARISON: 11/07/2019 HISTORY: Weakness, fever, cough, and shortness of breath TECHNIQUE: Frontal and lateral views of the chest are obtained. FINDINGS: There is no focal air space opacity, pleural effusion, or pneumothorax seen. The cardiac silhouette size is mildly enlarged. The osseous structures are intact. Moderate multilevel degenera tive change of the spine. IMPRESSION: No acute cardiopulmonary process.
[2019-12-02] MEDS: SODIUM CHLORIDE 0.9% 1,000 ML IV SCH (17:13)
[2019-12-02] MEDS ORDERED: ONDANSETRON 4 MG/2 ML VIAL IVP PRN (17:17)
[2019-12-02] MEDS ORDERED: NALOXONE 0.4 MG/ML 1 ML VIAL IV PRN (17:17)
[2019-12-02] MEDS: HYDROcodone/APAP 5-325MG 1 EACH TAB PO PRN (19:49)
[2019-12-02] MEDS: GABAPENTIN 100 MG CAP PO SCH (22:11)
[2019-12-02] MEDS: SENNOSIDES 8.6 MG TAB PO SCH (22:11)
[2019-12-02] MEDS: THIAMINE 100 MG TAB PO SCH (22:11)
[2019-12-03] MEDS: HYDROcodone/APAP 5-325MG 1 EACH TAB PO PRN ×4 (07:19→20:19)
[2019-12-03] MEDS: SODIUM CHLORIDE 0.9% 1,000 ML IV SCH (07:19)
[2019-12-03] MEDS: THIAMINE 100 MG TAB PO SCH ×2 (07:20→20:19)
[2019-12-03] MEDS: SENNOSIDES 8.6 MG TAB PO SCH ×2 (07:20→20:19)
[2019-12-03] MEDS: GABAPENTIN 100 MG CAP PO SCH ×3 (07:20→20:20)
[2019-12-03] MEDS ORDERED: POLYETHYLENE GLYCOL 3350 17 GM POWD.PACK PO PRN (11:22)
--- NOTE | 2019-12-03 12:11 | P.HPIM ---
History of Present Illness 69-year-old male that was discharged from a subacute rehab facility 2 days ago came back with the falls and weakness denied any syncopal episode patient was comparing of generalized weakness use to drink alcohol on daily basis quit about 2 months ago. Patient was admitted for the placement in to subacute rehabilitation patient denied any fever chills. Patient does have chronic lymphedema now complaining of increased pain in both legs. Patient appears to have some redness with some local raise of temperature. Review of Systems REVIEW OF SYSTEMS: CONSTITUTIONAL: No fever, no malaise, no fatigue. HEENT: No recent visual problems or hearing problems. Denied any sore throat. CARDIOVASCULAR: No chest pain, orthopnea, PND, no palpitations, no syncope. PULMONARY: No shortness of breath, no cough, no hemoptysis. GASTROINTESTINAL: No diarrhea, no nausea, no vomiting, no abdominal pain. NEUROLOGICAL: No headaches, no weakness, no numbness. HEMATOLOGICAL: Denies any bleeding or petechiae. GENITOURINARY: Denies any burning micturition, frequency, or urgency. MUSCULOSKELETAL/RHEUMATOLOGICAL: Denies any joint pain, swelling, or any muscle pain. ENDOCRINE: Denies any polyuria or polydipsia. The rest of the 14-point review of systems is negative. Past Medical History Past Medical History: Hypertension Additional Past Medical History / Comment(s): ETOH abuse, chronic back pain, BLE neuropathy, lymphedema, multiple falls History of Any Multi-Drug Resistant Organisms: None Reported Past Surgical History: Back Surgery, Orthopedic Surgery, Tonsillectomy Additional Past Surgical History / Comment(s): 3 back laminectomies, hand surgery s/p trauma to reattatch tendons Past Anesthesia/Blood Transfusion Reactions: No Reported Reaction Past Psychological History: No Psychological Hx Reported Additional Psychological History / Comment(s): Patient has fear that he has o nset dementia. Smoking Status: Never smoker Past Alcohol Use History: None Reported Additional Past Alcohol Use History / Comment(s): Patient has been clean of alcohol use for x6 weeks. Past Drug Use History: None Reported - Past Family History Father Family Medical History: Hypertension Mother Family Medical History: Cancer Additional Family Medical History / Comment(s): Lung cancer Medications and Allergies Home Medications Medication Instructions Recorded Confirmed Type Multivit-Min/FA/Lycopen/Lutein 1 tab PO DAILY 11/07/19 12/02/19 History [Centrum Silver Men Tablet] [place]-3 Fatty Acids/Fish Oil [Fish 1 cap PO DAILY 11/07/19 12/02/19 History Oil 1,000 mg Softgel] Gabapentin [Neurontin] 200 mg PO TID #6 cap 11/11/19 12/02/19 Rx Polyethylene Glycol 3350 [Miralax] 17 gm PO DAILY PRN powd.pack 11/11/19 Rx amLODIPine [Norvasc] 5 mg PO DAILY tab 11/11/19 12/02/19 Rx Clotrimazole/Betamethasone Dip 1 applic TOPICAL BID 12/02/19 12/02/19 History [Lotrisone Cream] Cyanocobalamin (Vitamin B-12) 1,000 mcg PO DAILY 12/02/19 12/02/19 History [Vitamin B-12] DULoxetine HCL [Cymbalta] 30 mg PO DAILY 12/02/19 12/02/19 History Folic Acid 1 mg PO DAILY 12/02/19 12/02/19 History Furosemide [Lasix] 40 mg PO DAILY 12/02/19 12/02/19 History HYDROcodone/APAP 10-325MG [[place] 1 tab PO Q6H PRN 12/02/19 12/02/19 History 10-325] Hydrocortisone Cream 1 applic TOPICAL BID 12/02/19 12/02/19 History [Hydrocortisone 2.5% Cream] Losartan [Cozaar] 50 mg PO DAILY 12/02/19 12/02/19 History Omeprazole 20 mg PO DAILY 12/02/19 12/02/19 History Potassium Chloride [Klor-Con 20] 20 meq PO DAILY 12/02/19 12/02/19 History Sennosides [Senna] 8.6 mg PO BID 12/02/19 12/02/19 History Thiamine [Vitamin B-1] 100 mg PO BID 12/02/19 12/02/19 History Allergies Allergy/AdvReac Type Severity Reaction Status Date / Time No Known Allergies Allergy Verified 12/02/19 17:34 Physical Exam Vitals: Vital Signs Temp Pulse Pulse Pulse Resp BP BP 12/03/19 07:45 18 12/03/19 07:00 98.5 F 65 18 144/72 12/03/19 02:52 98.1 F 61 17 167/79 12/02/19 19:17 98.1 F 61 17 167/79 12/02/19 18:38 97.2 F L 69 18 146/75 12/02/19 17:12 97.1 F L 12/02/19 16:54 61 18 151/7 12/02/19 14:51 98.1 F 63 18 152/75 Pulse Ox 12/03/19 07:45 12/03/19 07:00 96 12/03/19 02:52 100 12/02/19 19:17 100 12/02/19 18:38 100 12/02/19 17:12 12/02/19 16:54 98 12/02/19 14:51 98 Intake and Output 12/02/19 12/03/19 12/03/19 22:59 06:59 14:59 Output Total 250 475 Balance -250 -475 Output: Urine 250 475 Other: # Voids 1 Weight 145.15 kg PHYSICAL EXAMINATION: GENERAL: The patient is alert and oriented x3, not in any acute distress. Well developed, well nourished. HEENT: Pupils are round and equally reacting to light. EOMI. No scleral icterus. No conjunctival pallor. Normocephalic, atraumatic. No pharyngeal erythema. No thyromegaly. CARDIOVASCULAR: S1 and S2 present. No murmurs, rubs, or gallops. PULMONARY: Chest is clear to auscultation, no wheezing or crackles. ABDOMEN: Soft, nontender, nondistended, normoactive bowel sounds. No palpable or ganomegaly. MUSCULOSKELETAL: No joint swelling or deformity. EXTREMITIES: No cyanosis, clubbing, patient has both the extremities that are swollen there is probably minimally increasing redness in the right leg although there is redness in both legs can be related to venous stasis. May be increased local is of temperature in the right side cannot completely rule out cellulitis NEUROLOGICAL: Gross neurological examination did not reveal any focal deficits. SKIN: No rashes. Results CBC & Chem 7: 12/02/19 15:16 12/02/19 15:16 Labs: Abnormal Lab Results - Last 24 Hours (Table) 12/02/19 12/02/19 12/02/19 Range/Units 15:16 15:16 15:30 RBC 4.14 L (4.30-5.90) m/uL Sodium 135 L (137-145) mmol/L Carbon Dioxide 32 H (22-30) mmol/L BUN 22 H (9-20) mg/dL Glucose 130 H (74-99) mg/dL Urine Protein Trace H (Negative) Thrombosis Risk Factor Assmnt - Choose All That Apply Any of the Below Risk Factors Present?: Yes Each Factor Represents 1 point: Obesity (BMI >25), Swollen legs (current) Other Risk Factors: Yes Each Risk Factor Represents 2 Points: Age 61-74 years Other congenital or acquired thrombophilia - If yes, enter type in comment: No Thrombosis Risk Factor Assessment Total Risk Factor Score: 4 Thrombosis Risk Factor Assessment Level: Moderate Risk Assessment and Plan Plan: -fall: Secondary to generalized weakness patient does have degenerative disease in the back patient may need to go back to rehabilitation again PT and OT consultation will be ordered. -Bilateral venous stasis, continue with the Lasix is no evidence of CHF IV fluids will be discontinued patient does have lymphedema I cannot completely rule out cellulitis will get the opinion of infectious disease patient will not been started on any antibiotics at this time -Obesity thechronic venous stasis without any significant dermatitis -peripheral neuropathy from chronic low back degenerative disease -hypertension -DVT prophylaxis with subcutaneous heparin
[2019-12-03] MEDS: DULoxetine HCL 30 MG CAPSULE.DR PO SCH (15:00)
[2019-12-03] MEDS ORDERED: GABAPENTIN 100 MG CAP PO SCH (16:00)
[2019-12-03] MEDS: HEPARIN SODIUM,PORCINE 5,000 UNIT/ML 1 ML VIAL SQ SCH ×2 (16:29→23:43)
[2019-12-03] MEDS: HYDROCORTISONE 1% CREAM 30 GM TUBE TOPICAL SCH (20:23)
[2019-12-03] MEDS: CLOTRIMAZOLE/BETAMETH 1-0.05% CREAM 45 GM TUBE TOPICAL SCH (20:23)
--- NOTE | 2019-12-03 21:28 | P.CONS ---
History of Present Illness - Reason for Consult Consult date: 12/03/19 leg pain ?cellulitis Requesting physician: Mary Ellen Waddell - Chief Complaint weakness , fall and leg pain x 2 days - History of Present Illness Patient is a 69-year male presenting to the ER yesterday with chief complaints of weakness and multiple falls apparently the patient just got released from a inpatient rehab physical about 2 days ago and the patient has fallen 3 times since at home patient did fell again today fire rescue was called in and the patient was brought into the ER as the patient complaining of pain in the neck low back area and weakness patient also been complaining of pain with bilateral extremity with some swelling described the pain to be more of a dull aching times to be sharp intensity good 5-6 return patient denies any recent events 5-6 out of 10 patient mentioning the legs get weak and gave out leading to the fall but no bowel or bladder problems patient did have a CT of the pelvis area which did not show any fractures CT of the lumbar sacral spine did shows severe multilevel degenerative disc disease with herniation patient has been afebrile and his white count has been normal infectious was consulted for possible lower extremity cellulitis this patient currently do have swelling in the leg but no redness and blisters or any wound. Review of Systems Positive point has been mentioned in HPI rest of the systems are negative Past Medical History Past Medical History: Hypertension Additional Past Medical History / Comment(s): ETOH abuse, chronic back pain, BLE neuropathy, lymphedema, multiple falls History of Any Multi-Drug Resistant Organisms: None Reported Past Surgical History: Back Surgery, Orthopedic Surgery, Tonsillectomy Additional Past Surgical History / Comment(s): 3 back laminectomies, hand surgery s/p trauma to reattatch tendons Past Anesthesia/Blood Transfusion Reactions: No Reported Reaction Past Psychological History: No Psychological Hx Reported Additional Psychological History / Comment(s): Patient has fear that he has onset dementia. Smoking Status: Never smoker Past Alcohol Use History: None Reported Additional Past Alcohol Use History / Comment(s): Patient has been clean of alcohol use for x6 weeks. Past Drug Use History: None Reported - Past Family History Father Family Medical History: Hypertension Mother Family Medical History: Cancer Additional Family Medical History / Comment(s): Lung cancer Medications and Allergies Home Medications Medication Instructions Recorded Confirmed Type Multivit-Min/FA/Lycopen/Lutein 1 tab PO DAILY 11/07/19 12/02/19 History [Centrum Silver Men Tablet] [place]-3 Fatty Acids/Fish Oil [Fish 1 cap PO DAILY 11/07/19 12/02/19 History Oil 1,000 mg Softgel] Gabapentin [Neurontin] 200 mg PO TID #6 cap 11/11/19 12/02/19 Rx Polyethylene Glycol 3350 [Miralax] 17 gm PO DAILY PRN powd.pack 11/11/19 12/02/19 Rx amLODIPine [Norvasc] 5 mg PO DAILY tab 11/11/19 12/02/19 Rx Clotrimazole/Betamethasone Dip 1 applic TOPICAL BID 12/02/19 12/02/19 History [Lotrisone Cream] Cyanocobalamin (Vitamin B-12) 1,000 mcg PO DAILY 12/02/19 12/02/19 History [Vitamin B-12] DULoxetine HCL [Cymbalta] 30 mg PO DAILY 12/02/19 12/02/19 History Folic Acid 1 mg PO DAILY 12/02/19 12/02/19 History Furosemide [Lasix] 40 mg PO DAILY 12/02/19 12/02/19 History HYDROcodone/APAP 10-325MG [[place] 1 tab PO Q6H PRN 12/02/19 12/02/19 History 10-325] Hydrocortisone Cream 1 applic TOPICAL BID 12/02/19 12/02/19 History [Hydrocortisone 2.5% Cream] Losartan [Cozaar] 50 mg PO DAILY 12/02/19 12/02/19 History Omeprazole 20 mg PO DAILY 12/02/19 12/02/19 History Potassium Chloride [Klor-Con 20] 20 meq PO DAILY 12/02/19 12/02/19 History Sennosides [Senna] 8.6 mg PO BID 12/02/19 12/02/19 History Thiamine [Vitamin B-1] 100 mg PO BID 12/02/19 12/02/19 History Allergies Allergy/AdvReac Type Severity Reaction Status Date / Time No Known Allergies Allergy Verified 12/02/19 17:34 Physical Exam Vitals: Vital Signs Temp Pulse Pulse Pulse Resp BP BP 12/03/19 07:45 18 12/03/19 07:00 98.5 F 65 18 144/72 12/03/19 02:52 98.1 F 61 17 167/79 12/02/19 19:17 98.1 F 61 17 167/79 12/02/19 18:38 97.2 F L 69 18 146/75 12/02/19 17:12 97.1 F L 12/02/19 16:54 61 18 151/7 12/02/19 14:51 98.1 F 63 18 152/75 Pulse Ox 12/03/19 07:45 12/03/19 07:00 96 12/03/19 02:52 100 12/02/19 19:17 100 12/02/19 18:38 100 12/02/19 17:12 12/02/19 16:54 98 12/02/19 14:51 98 Intake and Output 12/02/19 12/03/19 12/03/19 22:59 06:59 14:59 Output Total 250 475 Balance -250 -475 Output: Urine 250 475 Other: # Voids 1 Weight 145.15 kg GENERAL DESCRIPTION: Elderly male lying in bed, no distress. No tachypnea or accessory muscle of respiration use. HEENT: Shows Pallor , no scleral icterus. Oral mucous membrane is dry. NECK: Trachea central, no thyromegaly. LUNGS: Unlabored breathing. Clear to auscultation anteriorly. No wheeze or crackle. HEART: S1, S2, regular rate and rhythm. ABDOMEN: Soft, no tenderness , guarding or rigidity EXTREMITIES: Minimal swelling of the leg but there is no redness no warmth no wounds or blisters. SKIN: No rash, no masses palpable. NEUROLOGICAL: The patient is awake, alert, oriented x3, mood and affect normal Results CBC & Chem 7: 12/02/19 15:16 12/02/19 15:16 Labs: Abnormal Lab Results - Last 24 Hours (Table) 12/02/19 12/02/19 12/02/19 Range/Units 15:16 15:16 15:30 RBC 4.14 L (4.30-5.90) m/uL Sodium 135 L (137-145) mmol/L Carbon Dioxide 32 H (22-30) mmol/L BUN 22 H (9-20) mg/dL Glucose 130 H (74-99) mg/dL Urine Protein Trace H (Negative) Assessment and Plan Assessment: patient has been admitted to hospital with generalized weakness and multiple falls in this patient who did have a severe degenerative disc disease of the lumbosacral spine area all likely responsible for his pain to lower extremity currently patient with evidence of any cellulitis patient with no white count or fever (1) Leg pain Current Visit: Yes Status: Acute Code(s): M79.606 - PAIN IN LEG, UNSPECIFIED SNOMED Code(s): 23476830 Plan: 1-no need for systemic antibiotic therapy at this point 2- patient may benefit from physical therapy and pain management ID will sign off please call back if any question regarding an infectious disease question about this patient Time with Patient: Greater than 30
[2019-12-04] MEDS: HYDROcodone/APAP 5-325MG 1 EACH TAB PO PRN ×3 (07:09→15:14)
[2019-12-04] MEDS: GABAPENTIN 100 MG CAP PO SCH (07:10)
[2019-12-04] MEDS: DULoxetine HCL 30 MG CAPSULE.DR PO SCH (07:11)
[2019-12-04] MEDS: HYDROCORTISONE 1% CREAM 30 GM TUBE TOPICAL SCH (07:11)
[2019-12-04] MEDS: SENNOSIDES 8.6 MG TAB PO SCH (07:12)
[2019-12-04] MEDS: THIAMINE 100 MG TAB PO SCH (07:12)
[2019-12-04] MEDS: HEPARIN SODIUM,PORCINE 5,000 UNIT/ML 1 ML VIAL SQ SCH (07:13)
[2019-12-04] MEDS: CLOTRIMAZOLE/BETAMETH 1-0.05% CREAM 45 GM TUBE TOPICAL SCH (07:15)
[2019-12-04] MEDS ORDERED: PANTOPRAZOLE 40 MG TABLET PO SCH (07:30)
[2019-12-04] MEDS ORDERED: amLODIPine 5 MG TAB PO SCH (09:00)
[2019-12-04] MEDS ORDERED: DULoxetine HCL 30 MG CAPSULE.DR PO SCH (09:00)
[2019-12-04] MEDS ORDERED: POTASSIUM CHLORIDE ER 20 MEQ TAB.ER PO SCH (09:00)
[2019-12-04] MEDS ORDERED: LOSARTAN 50 MG TAB PO SCH (09:00)
[2019-12-04] MEDS ORDERED: FUROSEMIDE 40 MG TAB PO SCH (09:00)
[2019-12-04] MEDS ORDERED: FOLIC ACID 1 MG TAB PO SCH (09:00)
--- NOTE | 2019-12-04 12:21 | P.DS ---
Providers Date of admission: 12/03/19 13:14 Expected date of discharge: 12/04/19 Attending physician: Maggi Farah Consults: 12/03/19 11:25 Consult Physician Routine Consulting Provider: Matteo Medina Consult Reason/Comments: ? cellulitis Do you want consulting provider notified?: Yes Primary care physician: Stated None Hospital Course: Final diagnosis -fall: Secondary to generalized weakness patient does have degenerative disease in the back -Bilateral venous stasis, chronic without evidence of cellulitis -Obesity -peripheral neuropathy from chronic low back degenerative disease -hypertension -DVT prophylaxis Discharge disposition Patient is being discharged in a stable condition with guarded prognosis to [facility] for continued PT/OT therapy. Patient will follow-up with primary care provider upon discharge. Total time taken is 35 minutes. History of present illness 69-year-old male that was discharged from a subacute rehab facility 2 days ago came back with the falls and weakness denied any syncopal episode patient was comparing of generalized weakness use to drink alcohol on daily basis quit about 2 months ago. Patient was admitted for the placement in to subacute rehabilitation patient denied any fever chills. Patient does have chronic lymphedema now complaining of increased pain in both legs. Patient appears to have some redness with some local raise of temperature. 12/04/2019 Patient is seen and evaluated and follow-up continues to be weak and having significant leg discomfort. Patient was seen and evaluated by infectious disease recommending no further antibiotic coverage at this time the bilateral venous stasis is chronic and is not showing any signs of cellulitis. Patient continues to have lower extremity pain and discomfort and will add Lyrica to medication regimen. Discussed with the patient about continuing physical therapy for strength and mobility and patient will be going to [facility] for continued physical therapy at this time. Currently no reports of chest pain, shortness of breath, or palpitations. Patient is afebrile. No reports of nausea or vomiting and patient is tolerating diet. On exam vital signs are stable. Temp is 97.9F, pulse is 71, respirations are 16, blood pressure is 161/74, oxygen saturation is 94% on room air. Cardio S1, S2 are present. Respiratory system shows clear to auscultation. Abdomen is soft, obese, nontender. Nervous system shows mild diffuse weakness. Please refer to medication reconciliation sheet for a list of medications. Patient Condition at Discharge: Stable Plan - Discharge Summary Discharge Rx Participant: Yes New Discharge Prescriptions: New Pregabalin [Lyrica] 150 mg PO BID 3 Days #6 cap HYDROcodone/APAP 5-325MG [[place] 5-325] 1 each PO Q4HR PRN #4 tab PRN Reason: Moderate Pain Continue [place]-3 Fatty Acids/Fish Oil [Fish Oil 1,000 mg Softgel] 1 cap PO DAILY Multivit-Min/FA/Lycopen/Lutein [Centrum Silver Men Tablet] 1 tab PO DAILY amLODIPine [Norvasc] 5 mg PO DAILY tab Polyethylene Glycol 3350 [Miralax] 17 gm PO DAILY PRN powd.pack PRN Reason: Constipation Thiamine [Vitamin B-1] 100 mg PO BID Sennosides [Senna] 8.6 mg PO BID Omeprazole 20 mg PO DAILY Potassium Chloride [Klor-Con 20] 20 meq PO DAILY Losartan [Cozaar] 50 mg PO DAILY Clotrimazole/Betamethasone Dip [Lotrisone Cream] 1 applic TOPICAL BID Hydrocortisone Cream [Hydrocortisone 2.5% Cream] 1 applic TOPICAL BID Furosemide [Lasix] 40 mg PO DAILY Folic Acid 1 mg PO DAILY DULoxetine HCL [Cymbalta] 30 mg PO DAILY Cyanocobalamin (Vitamin B-12) [Vitamin B-12] 1,000 mcg PO DAILY Gabapentin [Neurontin] 200 mg PO TID #6 cap Discontinued HYDROcodone/APAP 10-325MG [[place] 10-325] 1 tab PO Q6H PRN PRN Reason: Pain Discharge Medication List Multivit-Min/FA/Lycopen/Lutein [Centrum Silver Men Tablet] 1 tab PO DAILY 11/07/19 [History] [place]-3 Fatty Acids/Fish Oil [Fish Oil 1,000 mg Softgel] 1 cap PO DAILY 11/07/19 [History] Polyethylene Glycol 3350 [Miralax] 17 gm PO DAILY PRN powd.pack 11/11/19 [Rx] amLODIPine [Norvasc] 5 mg PO DAILY tab 11/11/19 [Rx] Clotrimazole/Betamethasone Dip [Lotrisone Cream] 1 applic TOPICAL BID 12/02/19 [History] Cyanocobalamin (Vitamin B-12) [Vitamin B-12] 1,000 mcg PO DAILY 12/02/19 [History] DULoxetine HCL [Cymbalta] 30 mg PO DAILY 12/02/19 [History] Folic Acid 1 mg PO DAILY 12/02/19 [History] Furosemide [Lasix] 40 mg PO DAILY 12/02/19 [History] Hydrocortisone Cream [Hydrocortisone 2.5% Cream] 1 applic TOPICAL BID 12/02/19 [History] Losartan [Cozaar] 50 mg PO DAILY 12/02/19 [History] Omeprazole 20 mg PO DAILY 12/02/19 [History] Potassium Chloride [Klor-Con 20] 20 meq PO DAILY 12/02/19 [History] Sennosides [Senna] 8.6 mg PO BID 12/02/19 [History] Thiamine [Vitamin B-1] 100 mg PO BID 12/02/19 [History] Gabapentin [Neurontin] 200 mg PO TID #6 cap 12/04/19 [Rx] HYDROcodone/APAP 5-325MG [[place] 5-325] 1 each PO Q4HR PRN #4 tab 12/04/19 [Rx] Pregabalin [Lyrica] 150 mg PO BID 3 Days #6 cap 12/04/19 [Rx] Follow up Appointment(s)/Referral(s): None,Stated [Primary Care Provider] - 1-2 days Activity/Diet/Wound Care/Special Instructions: Patient is going to [facility] Activity as tolerated Continue current diet Continue working with PT/OT Discharge Disposition: TRANSFER TO SNF/ECF
[2019-12-04 15:07] VITALS: BP 151/77; PULSE 66; RESP 17; TEMP 97.6
== END 2019-12-04 15:45 | DRG 552 ==
LOC: EC 14:47 → 4SSUR 16:58 → OBSVTOIN 12-03 13:14 → 4SSUR 12-03 21:34
PROVIDERS: ADMIT Internal Medicine; ATTEND Internal Medicine
DX: M51.37 Other intervertebral disc degeneration, lumbosacral region (principal); E66.9 Obesity, unspecified; Z68.34 Body mass index [BMI] 34.0-34.9, adult; F03.90 Unspecified dementia, unspecified severity, without behavioral disturbance, psychotic disturbance, mood disturbance, and anxiety; G62.9 Polyneuropathy, unspecified; I10 Essential (primary) hypertension; I87.8 Other specified disorders of veins; I89.0 Lymphedema, not elsewhere classified; R29.6 Repeated falls; W19.XXXA Unspecified fall, initial encounter; Z79.899 Other long term (current) drug therapy; Z80.1 Family history of malignant neoplasm of trachea, bronchus and lung; Z82.49 Family history of ischemic heart disease and other diseases of the circulatory system; L30.9 Dermatitis, unspecified; F10.11 Alcohol abuse, in remission; G89.29 Other chronic pain
CPT/HCPCS: 36415; 70450; 71046; 72125; 72131; 72192; 80053; 80320; 81003; 83735; 85025; 85610; 85730; 93005; 96361; 96374; 99285

== ENCOUNTER 2020-03-06 16:49 | Inpatient (IN) | payer MEDICARE, OTHER ==
[2020-03-06] MEDS ORDERED: SODIUM CHLORIDE 0.9% 1,000 ML IV STA (17:46)
[2020-03-06] MEDS ORDERED: LORazepam 2 MG/ML INJ IV STA (17:47)
--- NOTE | 2020-03-06 17:50 | ED ---
General Adult HPI - General Chief complaint: Weakness Stated complaint: weakness Time Seen by Provider: 03/06/20 17:12 Source: patient, RN notes reviewed Mode of arrival: wheelchair Limitations: no limitations - History of Present Illness Initial comments: Patient is a pleasant 69-year-old male presenting to the emergency Department with general weakness. Symptoms have progressively the past couple of weeks. Patient feels weak all over. Patient feels lightheaded. Patient stopped drinking 3 days ago. Patient feels shaky. Patient occasionally sees the carpet move otherwise no hallucinations. Patient does have chronic leg pain. Patient is very fatigued with exertion. - Related Data Home Medications Medication Instructions Recorded Confirmed Multivit-Min/FA/Lycopen/Lutein 1 tab PO DAILY 11/07/19 12/02/19 [Centrum Silver Men Tablet] [place]-3 Fatty Acids/Fish Oil [Fish 1 cap PO DAILY 11/07/19 12/02/19 Oil 1,000 mg Softgel] Clotrimazole/Betamethasone Dip 1 applic TOPICAL BID 12/02/19 12/02/19 [Lotrisone Cream] Cyanocobalamin (Vitamin B-12) 1,000 mcg PO DAILY 12/02/19 12/02/19 [Vitamin B-12] DULoxetine HCL [Cymbalta] 30 mg PO DAILY 12/02/19 12/02/19 Folic Acid 1 mg PO DAILY 12/02/19 12/02/19 Furosemide [Lasix] 40 mg PO DAILY 12/02/19 12/02/19 Hydrocortisone Cream 1 applic TOPICAL BID 12/02/19 12/02/19 [Hydrocortisone 2.5% Cream] Losartan [Cozaar] 50 mg PO DAILY 12/02/19 12/02/19 Omeprazole 20 mg PO DAILY 12/02/19 12/02/19 Potassium Chloride [Klor-Con 20] 20 meq PO DAILY 12/02/19 12/02/19 Sennosides [Senna] 8.6 mg PO BID 12/02/19 12/02/19 Thiamine [Vitamin B-1] 100 mg PO BID 12/02/19 12/02/19 Previous Rx's Medication Instructions Recorded Polyethylene Glycol 3350 [Miralax] 17 gm PO DAILY PRN powd.pack 11/11/19 amLODIPine [Norvasc] 5 mg PO DAILY tab 11/11/19 Gabapentin [Neurontin] 200 mg PO TID #6 cap 12/04/19 HYDROcodone/APAP 5-325MG [[place] 1 each PO Q4HR PRN #4 tab 12/04/19 5-325] Pregabalin [Lyrica] 150 mg PO BID 3 Days #6 cap 12/04/19 Allergies Allergy/AdvReac Type Severity Reaction Status Date / Time No Known Allergies Allergy Verified 03/06/20 17:11 Review of Systems ROS Statement: Those systems with pertinent positive or pertinent negative responses have been documented in the HPI. ROS Other: All systems not noted in ROS Statement are negative. Constitutional: Denies: fever Eyes: Denies: eye pain ENT: Denies: ear pain Respiratory: Denies: cough Cardiovascular: Denies: chest pain, palpitations Endocrine: Reports: fatigue Gastrointestinal: Denies: abdominal pain Genitourinary: Denies: dysuria Musculoskeletal: Denies: back pain Skin: Denies: rash Neurological: Reports: weakness. Denies: headache Past Medical History Past Medical History: Hypertension Additional Past Medical History / Comment(s): ETOH abuse, chronic back pain, BLE neuropathy, lymphedema, multiple falls History of Any Multi-Drug Resistant Organisms: None Reported Past Surgical History: Back Surgery, Orthopedic Surgery, Tonsillectomy Additional Past Surgical History / Comment(s): 3 back laminectomies, hand surgery s/p trauma to reattatch tendons Past Anesthesia/Blood Transfusion Reactions: No Reported Reaction Past Psychological History: No Psychological Hx Reported Smoking Status: Never smoker Past Alcohol Use History: None Reported Past Drug Use History: None Reported - Past Family History Father Family Medical History: Hypertension Mother Family Medical History: Cancer Additional Family Medical History / Comment(s): Lung cancer General Exam Limitations: no limitations General appearance: alert, in no apparent distress Head exam: Present: normocephalic Eye exam: Present: normal appearance, PERRL, EOMI. Absent: nystagmus ENT exam: Present: normal oropharynx Neck exam: Present: normal inspection Respiratory exam: Present: normal lung sounds bilaterally Cardiovascular Exam: Present: regular rate, normal rhythm GI/Abdominal exam: Present: soft. Absent: distended, tenderness Extremities exam: Present: pedal edema (+3 bilateral which patient states is chronic and actually is doing well at this time). Absent: calf tenderness Neurological exam: Present: alert, oriented X3, CN II-XII intact Expanded Neurological exam: Present: protecting the airway Speech: Present: fluid speech Cranial nerves: EOM's Intact: Normal Motor strength exam: RUE: 5, LUE: 5, RLE: 3, LLE: 3 Eye Response: (4) open spontaneously Motor Response: (6) obeys commands Verbal Response: (5) oriented Psychiatric exam: Present: normal affect, normal mood Skin exam: Present: normal color Course Vital Signs 03/06/20 03/06/20 17:09 17:11 Temperature 98.3 F Pulse Rate 86 Respiratory 16 18 Rate Blood Pressure 135/66 O2 Sat by Pulse 98 Oximetry EKG Findings - EKG Comments: EKG Findings:: Sinus rhythm at 72. For screening AV block IA of 220. QRS 86. QT 402. QTC 440. Normal axis. Normal QRS. No acute ST change Medical Decision Making - Medical Decision Making Patient reevaluated. Case discussed in detail with Dr. Lane, who will admit his patient with [place] protocol and IV fluids. Patient updated. - Lab Data Result diagrams: 03/06/20 18:05 03/06/20 18:08 Lab Results 03/06/20 03/06/20 03/06/20 Range/Units 18:05 18:08 18:08 WBC 6.7 (3.8-10.6) k/uL RBC 4.44 (4.30-5.90) m/uL Hgb 14.1 (13.0-17.5) gm/dL Hct 43.6 (39.0-53.0) % MCV 98.3 (80.0-100.0) fL MCH 31.8 (25.0-35.0) pg MCHC 32.4 (31.0-37.0) g/dL RDW 14.8 (11.5-15.5) % Plt Count 52 L (150-450) k/uL PT 10.4 (9.0-12.0) sec INR 1.0 (<1.2) APTT 25.7 (22.0-30.0) sec Sodium (137-145) mmol/L Potassium (3.5-5.1) mmol/L Chloride (98-107) mmol/L Carbon Dioxide (22-30) mmol/L Anion Gap mmol/L BUN (9-20) mg/dL Creatinine (0.66-1.25) mg/dL Est GFR (CKD-EPI)AfAm (>60 ml/min/1.73 sqM) Est GFR (CKD-EPI)NonAf (>60 ml/min/1.73 sqM) Glucose (74-99) mg/dL Plasma Lactic Acid Gerardo (0.7-2.0) mmol/L Calcium (8.4-10.2) mg/dL Phosphorus (2.5-4.5) mg/dL Magnesium (1.6-2.3) mg/dL Total Bilirubin (0.2-1.3) mg/dL AST (17-59) U/L ALT (4-49) U/L Alkaline Phosphatase (38-126) U/L Creatine Kinase (55-170) U/L Troponin I (0.000-0.034) ng/mL Total Protein (6.3-8.2) g/dL Albumin (3.5-5.0) g/dL TSH (0.465-4.680) mIU/L Free T4 (0.78-2.19) ng/dL Free T3 pg/mL (2.8-5.3) pg/ml Urine Color Yellow Urine Appearance Cloudy (Clear) Urine pH 5.5 (5.0-8.0) Ur Specific [place] 1.020 (1.001-1.035) Urine Protein 1+ H (Negative) Urine Glucose (UA) Negative (Negative) Urine Ketones Trace H (Negative) Urine Blood Moderate H (Negative) Urine Nitrite Negative (Negative) Urine Bilirubin Negative (Negative) Urine Urobilinogen 2.0 (<2.0) mg/dL Ur Leukocyte Esterase Negative (Negative) Urine RBC 48 H (0-5) /hpf Urine WBC 3 (0-5) /hpf Ur Squamous Epith Cells <1 (0-4) /hpf Urine Bacteria Rare H (None) /hpf Hyaline Casts 40 H (0-2) /lpf Urine Mucus Rare H (None) /hpf 03/06/20 03/06/20 03/06/20 Range/Units 18:08 18:08 18:08 WBC (3.8-10.6) k/uL RBC (4.30-5.90) m/uL Hgb (13.0-17.5) gm/dL Hct (39.0-53.0) % MCV (80.0-100.0) fL MCH (25.0-35.0) pg MCHC (31.0-37.0) g/dL RDW (11.5-15.5) % Plt Count (150-450) k/uL PT (9.0-12.0) sec INR (<1.2) APTT (22.0-30.0) sec Sodium 129 L (137-145) mmol/L Potassium 4.3 (3.5-5.1) mmol/L Chloride 92 L (98-107) mmol/L Carbon Dioxide 30 (22-30) mmol/L Anion Gap 7 mmol/L BUN 17 (9-20) mg/dL Creatinine 0.73 (0.66-1.25) mg/dL Est GFR (CKD-EPI)AfAm >90 (>60 ml/min/1.73 sqM) Est GFR (CKD-EPI)NonAf >90 (>60 ml/min/1.73 sqM) Glucose 110 H (74-99) mg/dL Plasma Lactic Acid Gerardo 1.3 (0.7-2.0) mmol/L Calcium 9.4 (8.4-10.2) mg/dL Phosphorus 2.8 (2.5-4.5) mg/dL Magnesium 1.7 (1.6-2.3) mg/dL Total Bilirubin 1.6 H (0.2-1.3) mg/dL AST 48 (17-59) U/L ALT 23 (4-49) U/L Alkaline Phosphatase 84 (38-126) U/L Creatine Kinase 253 H (55-170) U/L Troponin I <0.012 (0.000-0.034) ng/mL Total Protein 7.0 (6.3-8.2) g/dL Albumin 4.2 (3.5-5.0) g/dL TSH 3.310 (0.465-4.680) mIU/L Free T4 1.05 (0.78-2.19) ng/dL Free T3 pg/mL 4.6 (2.8-5.3) pg/ml Urine Color Urine Appearance (Clear) Urine pH (5.0-8.0) Ur Specific [place] (1.001-1.035) Urine Protein (Negative) Urine Glucose (UA) (Negative) Urine Ketones (Negative) Urine Blood (Negative) Urine Nitrite (Negative) Urine Bilirubin (Negative) Urine Urobilinogen (<2.0) mg/dL Ur Leukocyte Esterase (Negative) Urine RBC (0-5) /hpf Urine WBC (0-5) /hpf Ur Squamous Epith Cells (0-4) /hpf Urine Bacteria (None) /hpf Hyaline Casts (0-2) /lpf Urine Mucus (None) /hpf - Radiology Data Radiology results: image reviewed Disposition Clinical Impression: Dehydration, Alcohol withdrawal Disposition: ADMITTED IP TO THIS HOSP Is patient prescribed a controlled substance at d/c from ED?: No Referrals: Johnny Lane MD [Primary Care Provider] - 1-2 days Decision Time: 19:27
[2020-03-06 18:27] LABS: Basophils % (A) 0 %; Eosinophils # (A) 0.1 k/uL (0-0.7); Eosinophils % (A) 2 %; HCT 43.6 % (39.0-53.0); HGB 14.1 gm/dL (13.0-17.5); Lymphocytes # (A) 0.8 k/uL (1.0-4.8); Lymphocytes % (A) 12 %; MCH 31.8 pg (25.0-35.0); MCHC 32.4 g/dL (31.0-37.0); MCV 98.3 fL (80.0-100.0); Mean Platelet Volume 9.2; Monocytes # (A) 0.6 k/uL (0-1.0); Monocytes % (A) 10 %; Neutrophils % (A) 74 %; RBC 4.44 m/uL (4.30-5.90); RDW 14.8 % (11.5-15.5); WBC 6.7 k/uL (3.8-10.6)
[2020-03-06 18:32] LABS: ALT 23 U/L (4-49); AST 48 U/L (17-59); African American GFR (CKD) >90 (>60 ml/min/1.73 sqM); Albumin 4.2 g/dL (3.5-5.0); Alkaline Phosphatase 84 U/L (38-126); Anion Gap 7 mmol/L; Blood Urea Nitrogen 17 mg/dL (9-20); Calcium 9.4 mg/dL (8.4-10.2); Carbon Dioxide 30 mmol/L (22-30); Chloride 92 mmol/L (98-107); Creatine Kinase 253 U/L (55-170); Glucose 110 mg/dL (74-99); Magnesium 1.7 mg/dL (1.6-2.3); Non-African American GFR(CKD) >90 (>60 ml/min/1.73 sqM); Phosphorus 2.8 mg/dL (2.5-4.5); Potassium 4.3 mmol/L (3.5-5.1); Sodium 129 mmol/L (137-145); Total Bilirubin 1.6 mg/dL (0.2-1.3)
[2020-03-06 18:48] LABS: T4, Free (Free Thyroxine) 1.05 ng/dL (0.78-2.19)
[2020-03-06 18:50] LABS: Platelet Count 52 k/uL (150-450)
[2020-03-06 18:56] LABS: Appearance,Urine Cloudy (Clear); Bacteria,Urine Rare /hpf; Bilirubin,Urine Negative (Negative); Blood,Urine Moderate (Negative); Color,Urine Yellow; Glucose,Urine (UA) Negative (Negative); Hyaline Casts,Urine 40 /lpf (0-2); Ketones,Urine Trace (Negative); Leukocyte Esterase,Urine Negative (Negative); Mucus,Urine Rare /hpf; Nitrite,Urine Negative (Negative); PH, Urine 5.5 (5.0-8.0); Protein,Urine 1+ (Negative); RBC,Urine 48 /hpf (0-5); Squamous Epithelial Cell,Urine <1 /hpf (0-4); WBC,Urine 3 /hpf (0-5)
[2020-03-06 18:57] LABS: Partial Thromboplastin Time 25.7 sec (22.0-30.0); Prothrombin Time 10.4 sec (9.0-12.0)
[2020-03-06] MEDS ORDERED: NALOXONE 0.4 MG/ML 1 ML VIAL IV PRN (19:28)
--- NOTE | 2020-03-06 19:28 | XR ---
EXAMINATION TYPE: XR chest 2V DATE OF EXAM: 03/06/2020 COMPARISON: 12/02/2019 HISTORY: Weakness TECHNIQUE: FINDINGS: Heart and mediastinum are normal. Lungs are clear. Diaphragm is normal. Bony thorax appears normal. IMPRESSION: Normal chest.
[2020-03-06] MEDS ORDERED: LORazepam 2 MG/ML INJ IV PRN ×2 (19:29)
[2020-03-06] MEDS: LORazepam 2 MG/ML INJ IV PRN (21:29)
[2020-03-06] MEDS: SODIUM CHLORIDE 0.9% 1,000 ML IV SCH (21:29)
[2020-03-06] MEDS: FAMOTIDINE 20 MG TAB PO SCH (21:51)
[2020-03-07] MEDS: LORazepam 2 MG/ML INJ IV PRN ×4 (00:19→21:44)
[2020-03-07] MEDS: SODIUM CHLORIDE 0.9% 1,000 ML IV SCH ×2 (04:29→15:34)
[2020-03-07] MEDS ORDERED: THIAMINE 100 MG TAB PO SCH (07:30)
--- NOTE | 2020-03-07 09:42 | P.HPIM ---
History of Present Illness H&P Date: 03/07/20 Chief Complaint: Alcohol withdrawal This is a 69-year-old male one of my patient with a previous medical history significant for hypertension and hypertensive cardio vascular disease, hyperlipidemia, obesity with obstructive sleep apnea, history of chronic alcohol use and dependence with the peripheral neuropathy, significant spondylosis of the lumbar spine with spinal stenosis and significant chronic low back pain, patient presented to the emergency department at [facility] yesterday after his brother brought him in because his DANIEL unit was not working and the patient passed out from heat he stated that he has been drinking beer on Monday and Monday and that was last time he had to drink, patient became quite obtunded and he was hallucinating, his initial evaluation in the emergency department did not show any evidence of acute of normalities except for slight elevation CPK as well as hyponatremia with the microscopic hematuria patient was started on IV fluid resuscitation he was placed on thiamine 100 mg IV push every 24 hours folic acid and B12, and he was admitted to the hospital for impending alcohol withdrawal he was started on CIWA protocol. Review of Systems Constitutional: Reports chronic pain, Reports weakness, Denies chronic headaches, Denies lethargy, Denies malaise Eyes: denies blurred vision, denies bulging eye, denies decreased vision, denies diplopia Ears: deny: decreased hearing Ears, nose, mouth and throat: Denies dysphagia, Denies neck lump, Denies sore throat Cardiovascular: Reports decreased exercise tolerance, Reports dyspnea on exertion, Denies chest pain, Denies lightheadedness, Denies shortness of breath, Denies syncope Respiratory: Reports sleep apnea, Denies congestion, Denies cough with sputum, Denies home oxygen, Denies snoring, Denies wheezing Gastrointestinal: Denies abdominal pain, Denies bloating, Denies BRBPR, Denies heartburn, Denies melena, Denies nausea, Denies vomiting Genitourinary: Reports incontinence, Reports urinary frequency, Denies dysuria Musculoskeletal: Reports frequent falls, Reports gait dysfunction, Reports muscl e weakness, Reports shooting leg pain Musculoskeletal: absent: ankle pain, ankle stiffness, ankle swelling, elbow pain, elbow stiffness, elbow swelling, foot pain, foot stiffness, foot swelling, hand pain, hand stiffness, hand swelling, hip pain, hip stiffness, hip swelling, knee pain, knee stiffness, knee swelling, shoulder pain, shoulder stiffness, shoulder swelling, wrist pain, wrist stiffness, wrist swelling Integumentary: Denies pruritus, Denies rash Neurological: Reports confusion, Reports gait dysfunction, Reports memory loss, Reports sensory deficit, Reports weakness, Denies ataxia, Denies headaches, Denies loss of vision, Denies tingling, Denies transient paralysis, Denies tremors, Denies vertigo, Denies visual changes Endocrine: Denies fatigue, Denies weight change Past Medical History Past Medical History: Hyperlipidemia, Hypertension, Osteoarthritis (OA) Additional Past Medical History / Comment(s): ETOH abuse, chronic back pain, BLE neuropathy, lymphedema, multiple falls History of Any Multi-Drug Resistant Organisms: None Reported Past Surgical History: Back Surgery, Orthopedic Surgery, Tonsillectomy Additional Past Surgical History / Comment(s): 3 back laminectomies, hand surgery s/p trauma to reattatch tendons Past Anesthesia/Blood Transfusion Reactions: No Reported Reaction Past Psychological History: No Psychological Hx Reported Additional Psychological History / Comment(s): Patient has fear that he has onset dementia. Smoking Status: Never smoker Past Alcohol Use History: None Reported Additional Past Alcohol Use History / Comment(s): Patient has been clean of alcohol use for 3 days. Past Drug Use History: None Reported - Past Family History Father Family Medical History: Hypertension (Father at age 94 from the old age had a history of hypertension.) Mother Family Medical History: Cancer (Mother at age of 84 from lung cancer) Additional Family Medical History / Comment(s): Lung cancer Brother(s) Family Medical History: No Reported History (Patient has 2 brothers one is 86-year-old male one 79-year-old no major medical problems.) Sister(s) Family Medical History: Hypertension (Patient has one sister 67-year-old with history of hypertension.) Daughter(s) Family Medical History: No Reported History (Patient has one daughter no major medical problems.) Medications and Allergies Home Medications Medication Instructions Recorded Confirmed Type Multivit-Min/FA/Lycopen/Lutein 1 tab PO DAILY 11/07/19 03/06/20 History [Centrum Silver Men Tablet] amLODIPine [Norvasc] 5 mg PO DAILY tab 11/11/19 03/06/20 Rx Cyanocobalamin (Vitamin B-12) 1,000 mcg PO DAILY 12/02/19 03/06/20 History [Vitamin B-12] DULoxetine HCL [Cymbalta] 30 mg PO DAILY 12/02/19 03/07/20 History Furosemide [Lasix] 40 mg PO DAILY 12/02/19 03/07/20 History Losartan [Cozaar] 50 mg PO DAILY 12/02/19 03/07/20 History Potassium Chloride [Klor-Con 20] 20 meq PO DAILY 12/02/19 03/06/20 History Pregabalin [Lyrica] 150 mg PO BID 3 Days #6 cap 12/04/19 03/06/20 Rx Folic Acid 0.8 mg PO DAILY 03/06/20 03/06/20 History HYDROcodone/APAP 10-325MG [[place] 1 tab PO QID PRN 03/06/20 03/06/20 History 10-325] Allergies Allergy/AdvReac Type Severity Reaction Status Date / Time No Known Allergies Allergy Verified 03/06/20 21:54 Physical Exam Vitals: Vital Signs Temp Pulse Pulse Resp BP BP Pulse Ox 03/07/20 06:19 79 18 95/61 96 03/07/20 05:00 98.2 F 67 18 171/65 96 03/06/20 22:00 88 20 03/06/20 20:59 98.1 F 88 20 107/66 95 03/06/20 20:13 98.0 F 70 17 130/79 99 03/06/20 17:11 18 03/06/20 17:09 98.3 F 86 16 135/66 98 Intake and Output 03/06/20 03/07/20 03/07/20 22:59 06:59 14:59 Intake Total 480 Balance 480 Intake: Oral 480 Other: Voiding Method Incontinent # Voids 2 2 Weight 137.892 kg HEENT: Head is atraumatic, normocephalic, pupils were equal round reactive to light and accommodation, extraocular muscle movement were intact, mucous m embranes of the mouth are moist. Neck: Supple, no JVD, decreased carotid upstroke bilaterally. Chest: Decreased breath sound at bases, few rhonchi, no expiratory wheezes, no chest wall tenderness, no intercostal retractions. Heart: First heart sound is depressed, second heart sounds normal, there is systolic ejection murmur 2/6 located in left sternal border. Abdomen: Soft, nontender, nondistended, positive bowel sounds Extremities: Trace edema, no calf tenderness, dorsalis pedis +1 bilaterally. Neurologic examination: Patient is awake alert and oriented 2. Nerves III-12 appear grossly intact. Muscle power 4 out of 5 in upper and lower extremities bilaterally. Results CBC & Chem 7: 03/06/20 18:05 03/06/20 18:08 Labs: Abnormal Lab Results - Last 24 Hours (Table) 03/06/20 03/06/20 03/06/20 Range/Units 18:05 18:08 18:08 Plt Count 52 L (150-450) k/uL Lymphocytes # 0.8 L (1.0-4.8) k/uL Sodium 129 L (137-145) mmol/L Chloride 92 L (98-107) mmol/L Glucose 110 H (74-99) mg/dL Total Bilirubin 1.6 H (0.2-1.3) mg/dL Creatine Kinase 253 H (55-170) U/L Urine Protein 1+ H (Negative) Urine Ketones Trace H (Negative) Urine Blood Moderate H (Negative) Urine RBC 48 H (0-5) /hpf Urine Bacteria Rare H (None) /hpf Hyaline Casts 40 H (0-2) /lpf Urine Mucus Rare H (None) /hpf Thrombosis Risk Factor Assmnt - DVT/VTE Prophylaxis DVT/VTE Prophylaxis: Pharmacologic Prophylaxis ordered, Mechanical Prophylaxis ordered - Choose All That Apply Each Risk Factor Represents 2 Points: Age 61-74 years Thrombosis Risk Factor Assessment Total Risk Factor Score: 2 Thrombosis Risk Factor Assessment Level: Low Risk Assessment and Plan Assessment: Assessment and plan: 1. Hypovolemic hyponatremia. Continue IV fluid resuscitation the form of normal saline at 100 mL an hour repeat CMP in the next 24 hours. 2. Chronic alcohol use and dependence with impending alcohol withdrawal. Continue patient on CIWA protocol, continue IV fluid, continue thiamine 100 mg IV push every 24 hours, continue folic acid, continue vitamin B12, we will monitor patient heart rhythm blood pressure very closely. 3. Hypertension and hypertensive cardiovascular disease. Continue losartan 50 mg orally once every day as well as amlodipine 5 mg orally once every day. 4. Peripheral neuropathy. Continue Lyrica 150 mg orally twice every day. 5. Chronic low back pain with spinal stenosis and spondylosis. We'll hold off [place] for now. 6. Depression. Continue Cymbalta 60 mg orally once every day. 7. GI prophylaxis. Continue Pepcid 20 mg orally once every day as well as Protonix 40 mg orally once every day. 8. Mild elevation of the CPK. Monitor the patient's CPK the next 24 hours, continue with IV fluid resuscitation, 9. DVT prophylaxis. Continue heparin 5000 units subcutaneous every 8 hours. 10. Generalized weakness with gait dysfunction and recurrent falls. Physical therapy evaluation. 11. child welfare caseworker consultation for discharge planning. 12. Admit to inpatient. Estimated length of stay 2 midnights. 13. Patient is full code.
[2020-03-07] MEDS: CYANOCOBALAMIN 500 MCG TAB PO SCH (11:33)
[2020-03-07] MEDS: FOLIC ACID 1 MG TAB PO SCH (11:33)
[2020-03-07] MEDS: LOSARTAN 50 MG TAB PO SCH (11:33)
[2020-03-07] MEDS: DULoxetine HCL 30 MG CAPSULE.DR PO SCH (11:33)
[2020-03-07] MEDS: amLODIPine 5 MG TAB PO SCH (11:33)
[2020-03-07] MEDS: PREGABALIN 75 MG CAP PO SCH ×2 (11:33→21:33)
[2020-03-07] MEDS: FAMOTIDINE 20 MG TAB PO SCH ×2 (11:34→21:33)
[2020-03-07] MEDS: THIAMINE 100 MG/ML 2 ML VIAL IVP SCH (11:34)
[2020-03-07] MEDS: MULTIVITAMINS, THERA 1 EACH TAB PO SCH (11:36)
[2020-03-07] MEDS: HEPARIN SODIUM,PORCINE 5,000 UNIT/ML 1 ML VIAL SQ SCH (17:17)
[2020-03-08] MEDS: HEPARIN SODIUM,PORCINE 5,000 UNIT/ML 1 ML VIAL SQ SCH ×3 (00:23→16:54)
[2020-03-08] MEDS: LORazepam 2 MG/ML INJ IV PRN (03:40)
[2020-03-08] MEDS: SODIUM CHLORIDE 0.9% 1,000 ML IV SCH ×2 (07:13→09:04)
[2020-03-08 07:28] LABS: ALT 21 U/L (4-49); AST 43 U/L (17-59); African American GFR (CKD) >90 (>60 ml/min/1.73 sqM); Albumin 3.2 g/dL (3.5-5.0); Alkaline Phosphatase 73 U/L (38-126); Anion Gap 4 mmol/L; Basophils % (A) 0 %; Blood Urea Nitrogen 13 mg/dL (9-20); Calcium 8.8 mg/dL (8.4-10.2); Carbon Dioxide 28 mmol/L (22-30); Chloride 103 mmol/L (98-107); Creatine Kinase 96 U/L (55-170); Eosinophils # (A) 0.2 k/uL (0-0.7); Eosinophils % (A) 4 %; Glucose 104 mg/dL (74-99); HCT 41.4 % (39.0-53.0); HGB 13.6 gm/dL (13.0-17.5); Lymphocytes # (A) 1.3 k/uL (1.0-4.8); Lymphocytes % (A) 25 %; MCH 33.6 pg (25.0-35.0); MCV 101.9 fL (80.0-100.0); Macrocytosis Slight; Magnesium 2.1 mg/dL (1.6-2.3); Mean Platelet Volume 7.8; Monocytes # (A) 0.4 k/uL (0-1.0); Monocytes % (A) 8 %; Neutrophils # (A) 3.1 k/uL (1.3-7.7); Neutrophils % (A) 60 %; Non-African American GFR(CKD) >90 (>60 ml/min/1.73 sqM); Potassium 4.2 mmol/L (3.5-5.1); RBC 4.06 m/uL (4.30-5.90); RDW 15.1 % (11.5-15.5); Sodium 135 mmol/L (137-145); Total Bilirubin 0.8 mg/dL (0.2-1.3); WBC 5.2 k/uL (3.8-10.6)
[2020-03-08 07:37] LABS: Platelet Count 66 k/uL (150-450)
[2020-03-08] MEDS: PREGABALIN 75 MG CAP PO SCH ×2 (08:53→19:58)
[2020-03-08] MEDS: DULoxetine HCL 30 MG CAPSULE.DR PO SCH (08:53)
[2020-03-08] MEDS: LOSARTAN 50 MG TAB PO SCH (08:53)
[2020-03-08] MEDS: THIAMINE 100 MG/ML 2 ML VIAL IVP SCH (08:54)
[2020-03-08] MEDS: MULTIVITAMINS, THERA 1 EACH TAB PO SCH (08:54)
[2020-03-08] MEDS: amLODIPine 5 MG TAB PO SCH (08:54)
[2020-03-08] MEDS: CYANOCOBALAMIN 500 MCG TAB PO SCH (08:54)
[2020-03-08] MEDS: PANTOPRAZOLE 40 MG TABLET PO SCH (08:54)
[2020-03-08] MEDS: FOLIC ACID 1 MG TAB PO SCH (08:54)
[2020-03-08] MEDS: FAMOTIDINE 20 MG TAB PO SCH ×2 (08:54→19:58)
--- NOTE | 2020-03-08 09:59 | P.PN ---
Subjective Progress Note Date: 03/08/20 This is a 69-year-old male one of my patient with a previous medical history significant for hypertension and hypertensive cardio vascular disease, hyperlipidemia, obesity with obstructive sleep apnea, history of chronic alcohol use and dependence with the peripheral neuropathy, significant spondylosis of the lumbar spine with spinal stenosis and significant chronic low back pain, patient presented to the emergency department at [facility] yesterday after his brother brought him in because his DANIEL unit was not working and the patient passed out from heat he stated that he has been drinking beer on Monday and Monday and that was last time he had to drink, patient became quite obtunded and he was hallucinating, his initial evaluation in the emergency department did not show any evidence of acute of normalities except for slight elevation CPK as well as hyponatremia with the microscopic hematuria patient was started on IV fluid resuscitation he was placed on thiamine 100 mg IV push every 24 hours folic acid and B12, and he was admitted to the hospital for impending alcohol withdrawal he was started on CIWA protocol. 03/08: Patient is sitting up in the chair his feeling better today he denies any chest pain or shortness breath. Complains of increased in the lower back, he continues to the urine incontinent, he denies any tremors, he has no headache, he has no myalgias, patient will be taken off his IV fluid, physical therapy and occupational therapy evaluation for possible subacute rehabilitation the next 24 hours. Objective - Vital Signs Vital signs: Vital Signs Temp 97.0 F L 03/08/20 05:00 Pulse 68 03/08/20 05:00 Resp 20 03/08/20 05:00 BP 144/71 03/08/20 05:00 Pulse Ox 96 03/08/20 05:00 Intake & Output 03/07/20 03/08/20 03/08/20 18:59 06:59 18:59 Intake Total 800 700 Balance 800 700 Intake: Intake, IV Titration 800 Amount Sodium Chloride 0.9% 1, 800 000 ml @ 100 mls/hr IV . Q10H [facility] Rx#:[id number] Oral 700 Other: Voiding Method Incontinent Incontinent # Voids 4 3 # Bowel Movements 0 - Exam Review of Systems Constitutional: Reports chronic pain, Reports weakness, Denies chronic headaches, Denies lethargy, Denies malaise Eyes: denies blurred vision, denies bulging eye, denies decreased vision, denies diplopia Ears: deny: decreased hearing Ears, nose, mouth and throat: Denies dysphagia, Denies neck lump, Denies sore throat Cardiovascular: Reports decreased exercise tolerance, Reports dyspnea on exertion, Denies chest pain, Denies lightheadedness, Denies shortness of breath, Denies syncope Respiratory: Reports sleep apnea, Denies congestion, Denies cough with sputum, Denies home oxygen, Denies snoring, Denies wheezing Gastrointestinal: Denies abdominal pain, Denies bloating, Denies BRBPR, Denies heartburn, Denies melena, Denies nausea, Denies vomiting Genitourinary: Reports incontinence, Reports urinary frequency, Denies dysuria Musculoskeletal: Reports frequent falls, Reports gait dysfunction, Reports muscle weakness, Reports shooting leg pain Musculoskeletal: absent: ankle pain, ankle stiffness, ankle swelling, elbow pain, elbow stiffness, elbow swelling, foot pain, foot stiffness, foot swelling, hand pain, hand stiffness, hand swelling, hip pain, hip stiffness, hip swelling, knee pain, knee stiffness, knee swelling, shoulder pain, shoulder stiffness, shoulder swelling, wrist pain, wrist stiffness, wrist swelling Integumentary: Denies pruritus, Denies rash Neurological: Reports confusion, Reports gait dysfunction, Reports memory loss, Reports sensory deficit, Reports weakness, Denies ataxia, Denies headaches, Denies loss of vision, Denies tingling, Denies transient paralysis, Denies t remors, Denies vertigo, Denies visual changes Endocrine: Denies fatigue, Denies weight change Physical examination: HEENT: Head is atraumatic, normocephalic, pupils were equal round reactive to light and accommodation, extraocular muscle movement were intact, mucous membr anes of the mouth are moist. Neck: Supple, no JVD, decreased carotid upstroke bilaterally. Chest: Decreased breath sound at bases, few rhonchi, no expiratory wheezes, no chest wall tenderness, no intercostal retractions. Heart: First heart sound is depressed, second heart sounds normal, there is systolic ejection murmur 2/6 located in left sternal border. Abdomen: Soft, nontender, nondistended, positive bowel sounds Extremities: Trace edema, no calf tenderness, dorsalis pedis +1 bilaterally. Neurologic examination: Patient is awake alert and oriented 2. Nerves III-12 appear grossly intact. Muscle power 4 out of 5 in upper and lower extremities bilaterally. - Labs CBC & Chem 7: 03/08/20 06:26 03/08/20 06:26 Labs: Abnormal Lab Results - Last 24 Hours (Table) 03/08/20 03/08/20 Range/Units 06:26 06:26 RBC 4.06 L (4.30-5.90) m/uL MCV 101.9 H (80.0-100.0) fL Plt Count 66 L (150-450) k/uL Sodium 135 L (137-145) mmol/L Creatinine 0.60 L (0.66-1.25) mg/dL Glucose 104 H (74-99) mg/dL Total Protein 6.0 L (6.3-8.2) g/dL Albumin 3.2 L (3.5-5.0) g/dL Assessment and Plan Assessment: 1. Hypovolemic hyponatremia. Resolved, increase oral intake of fluid, discontinue IV fluid. 2. Chronic alcohol use and dependence with impending alcohol withdrawal. Continue patient on CIWA protocol, continue thiamine 100 mg orally once every day, B12 1000 mg orally once every day and folic acid 1 mg orally once every day. Patient was counseled about abstinence from alcohol for 3. Hypertension and hypertensive cardiovascular disease. Continue losartan 50 mg orally once every day as well as amlodipine 5 mg orally once every day. 4. Peripheral neuropathy. Continue Lyrica 150 mg orally twice every day. 5. Chronic low back pain with spinal stenosis and spondylosis. We'll start [place] twice a day as needed. 6. Depression. Continue Cymbalta 60 mg orally once every day. 7. GI prophylaxis. Continue Pepcid 20 mg orally once every day as well as Protonix 40 mg orally once every day. 8. Mild elevation of the CPK. Monitor the patient's CPK the next 24 hours, continue with IV fluid resuscitation, 9. DVT prophylaxis. Continue heparin 5000 units subcutaneous every 8 hours. 10. Generalized weakness with gait dysfunction and recurrent falls. Physical therapy evaluation. 11. tie worker consultation for discharge planning. 12. Discharge planning is [place] tomorrow morning.
[2020-03-08] MEDS: HYDROcodone/APAP 5-325MG 1 EACH TAB PO PRN (13:03)
[2020-03-09] MEDS: LORazepam 2 MG/ML INJ IV PRN ×2 (02:45→21:53)
[2020-03-09] MEDS: HYDROcodone/APAP 5-325MG 1 EACH TAB PO PRN ×2 (05:59→18:24)
[2020-03-09] MEDS: HEPARIN SODIUM,PORCINE 5,000 UNIT/ML 1 ML VIAL SQ SCH ×4 (08:17→23:44)
[2020-03-09] MEDS: PANTOPRAZOLE 40 MG TABLET PO SCH (08:17)
[2020-03-09] MEDS: amLODIPine 5 MG TAB PO SCH (08:18)
[2020-03-09] MEDS: THIAMINE 100 MG TAB PO SCH (08:18)
[2020-03-09] MEDS: CYANOCOBALAMIN 500 MCG TAB PO SCH (08:18)
[2020-03-09] MEDS: FAMOTIDINE 20 MG TAB PO SCH (08:19)
[2020-03-09] MEDS: FOLIC ACID 1 MG TAB PO SCH (08:19)
[2020-03-09] MEDS: MULTIVITAMINS, THERA 1 EACH TAB PO SCH (08:19)
[2020-03-09] MEDS: LOSARTAN 50 MG TAB PO SCH (08:19)
[2020-03-09] MEDS: PREGABALIN 75 MG CAP PO SCH ×2 (08:19→20:08)
[2020-03-09] MEDS: DULoxetine HCL 30 MG CAPSULE.DR PO SCH (08:19)
[2020-03-10 05:52] VITALS: BP 150/71; PULSE 62; RESP 14; TEMP 98
[2020-03-10] MEDS: FOLIC ACID 1 MG TAB PO SCH (08:07)
[2020-03-10] MEDS: PANTOPRAZOLE 40 MG TABLET PO SCH (08:07)
[2020-03-10] MEDS: CYANOCOBALAMIN 500 MCG TAB PO SCH (08:08)
[2020-03-10] MEDS: PREGABALIN 75 MG CAP PO SCH (08:08)
[2020-03-10] MEDS: LOSARTAN 50 MG TAB PO SCH (08:08)
[2020-03-10] MEDS: MULTIVITAMINS, THERA 1 EACH TAB PO SCH (08:08)
[2020-03-10] MEDS: amLODIPine 5 MG TAB PO SCH (08:08)
[2020-03-10] MEDS: DULoxetine HCL 30 MG CAPSULE.DR PO SCH (08:09)
[2020-03-10] MEDS: THIAMINE 100 MG TAB PO SCH (08:09)
[2020-03-10] MEDS: HEPARIN SODIUM,PORCINE 5,000 UNIT/ML 1 ML VIAL SQ SCH (08:09)
--- NOTE | 2020-03-10 08:26 | P.PN ---
Subjective Progress Note Date: 03/09/20 This is a 69-year-old male one of my patient with a previous medical history significant for hypertension and hypertensive cardio vascular disease, hyperlipidemia, obesity with obstructive sleep apnea, history of chronic alcohol use and dependence with the peripheral neuropathy, significant spondylosis of the lumbar spine with spinal stenosis and significant chronic low back pain, patient presented to the emergency department at [facility] yesterday after his brother brought him in because his DANIEL unit was not working and the patient passed out from heat he stated that he has been drinking beer on Monday and Monday and that was last time he had to drink, patient became quite obtunded and he was hallucinating, his initial evaluation in the emergency department did not show any evidence of acute of normalities except for slight elevation CPK as well as hyponatremia with the microscopic hematuria patient was started on IV fluid resuscitation he was placed on thiamine 100 mg IV push every 24 hours folic acid and B12, and he was admitted to the hospital for impending alcohol withdrawal he was started on CIWA protocol. 03/08: Patient is sitting up in the chair his feeling better today he denies any chest pain or shortness breath. Complains of increased in the lower back, he continues to the urine incontinent, he denies any tremors, he has no headache, he has no myalgias, patient will be taken off his IV fluid, physical therapy and occupational therapy evaluation for possible subacute rehabilitation the next 24 hours. 03/09: patient sitting up in the edge of the bed he continues to be a bit weak in both lower extremity is, he is taking his medication, he is tolerating his diet very well, he will be seen again with physical therapy, we are planning to discharge the patient to extended care facility. Qualifies by physical therapy and occupational therapy at this point in time, otherwise she will need to be discharged home with home PT and OT. Objective - Vital Signs Vital signs: Vital Signs Temp 98.0 F 03/10/20 05:15 Pulse 62 03/10/20 05:15 Resp 14 03/10/20 05:15 BP 150/71 03/10/20 05:15 Pulse Ox 98 03/10/20 05:15 Intake & Output 03/09/20 03/10/20 03/10/20 18:59 06:59 18:59 Intake Total 1440 1440 Output Total 200 200 Balance 1240 1240 Intake: Oral 1440 1440 Output: Urine 200 200 Other: Voiding Method Urinal Urinal # Voids 4 2 - Exam Review of Systems Constitutional: Reports chronic pain, Reports weakness, Denies chronic headaches, Denies lethargy, Denies malaise Eyes: denies blurred vision, denies bulging eye, denies decreased vision, denies diplopia Ears: deny: decreased hearing Ears, nose, mouth and throat: Denies dysphagia, Denies neck lump, Denies sore throat Cardiovascular: Reports decreased exercise tolerance, Reports dyspnea on exertion, Denies chest pain, Denies lightheadedness, Denies shortness of breath, Denies syncope Respiratory: Reports sleep apnea, Denies congestion, Denies cough with sputum, Denies home oxygen, Denies snoring, Denies wheezing Gastrointestinal: Denies abdominal pain, Denies bloating, Denies BRBPR, Denies heartburn, Denies melena, Denies nausea, Denies vomiting Genitourinary: Reports incontinence, Reports urinary frequency, Denies dysuria Musculoskeletal: Reports frequent falls, Reports gait dysfunction, Reports muscle weakness, Reports shooting leg pain Musculoskeletal: absent: ankle pain, ankle stiffness, ankle swelling, elbow pain, elbow stiffness, elbow swelling, foot pain, foot stiffness, foot swelling, hand pain, hand stiffness, hand swelling, hip pain, hip stiffness, hip swelling, knee pain, knee stiffness, knee swelling, shoulder pain, shoulder stiffness, shoulder swelling, wrist pain, wrist stiffness, wrist swelling Integumentary: Denies pruritus, Denies rash Neurological: Reports confusion, Reports gait dysfunction, Reports memory loss, Reports sensory deficit, Reports weakness, Denies ataxia, Denies headaches, Denies loss of vision, Denies tingling, Denies transient paralysis, Denies tremors, Denies vertigo, Denies visual changes Endocrine: Denies fatigue, Denies weight change Physical examination: HEENT: Head is atraumatic, normocephalic, pupils were equal round reactive to light and accommodation, extraocular muscle movement were intact, mucous membranes of the mouth are moist. Neck: Supple, no JVD, decreased carotid upstroke bilaterally. Chest: Decreased breath sound at bases, few rhonchi, no expiratory wheezes, no chest wall tenderness, no intercostal retractions. Heart: First heart sound is depressed, second heart sounds normal, there is systolic ejection murmur 2/6 located in left sternal border. Abdomen: Soft, nontender, nondistended, positive bowel sounds Extremities: Trace edema, no calf tenderness, dorsalis pedis +1 bilaterally. Neurologic examination: Patient is awake alert and oriented 2. Nerves III-12 appear grossly intact. Muscle power 4 out of 5 in upper and lower extremities bilaterally. - Labs CBC & Chem 7: 03/08/20 06:26 03/08/20 06:26 Assessment and Plan Assessment: 1. Hypovolemic hyponatremia. Resolved, increase oral intake of fluid, discontinue IV fluid. 2. Chronic alcohol use and dependence with impending alcohol withdrawal. Continue patient on CIWA protocol, continue thiamine 100 mg orally once every day, B12 1000 mg orally once every day and folic acid 1 mg orally once every day. Patient was counseled about abstinence from alcohol for 3. Hypertension and hypertensive cardiovascular disease. Continue losartan 50 mg orally once every day as well as amlodipine 5 mg orally once every day. 4. Peripheral neuropathy. Continue Lyrica 150 mg orally twice every day. 5. Chronic low back pain with spinal stenosis and spondylosis. We'll start [place] twice a day as needed. 6. Depression. Continue Cymbalta 60 mg orally once every day. 7. GI prophylaxis. Continue Pepcid 20 mg orally once every day as well as Protonix 40 mg orally once every day. 8. Mild elevation of the CPK. Monitor the patient's CPK the next 24 hours, continue with IV fluid resuscitation, 9. DVT prophylaxis. Continue heparin 5000 units subcutaneous every 8 hours. 10. Generalized weakness with gait dysfunction and recurrent falls. Physical therapy evaluation. 11. farmworker consultation for discharge planning. 12. Discharge planning is [place] today or tomorrow and if he is not qualified he can go to home with physical therapy at home.
[2020-03-10] MEDS: HYDROcodone/APAP 5-325MG 1 EACH TAB PO PRN (08:27)
--- NOTE | 2020-03-10 08:27 | P.DS ---
Providers Date of admission: 03/06/20 19:28 Expected date of discharge: 03/10/20 Attending physician: Johnny Lane Primary care physician: Johnny Lane [facility] Hospital Course: This is a 69-year-old male one of my patient with a previous medical history significant for hypertension and hypertensive cardio vascular disease, hyperlipidemia, obesity with obstructive sleep apnea, history of chronic alcohol use and dependence with the peripheral neuropathy, significant spondylosis of the lumbar spine with spinal stenosis and significant chronic low back pain, patient presented to the emergency department at [facility] yesterday a fter his brother brought him in because his DANIEL unit was not working and the patient passed out from heat he stated that he has been drinking beer on Monday and Monday and that was last time he had to drink, patient became quite obtunded and he was hallucinating, his initial evaluation in the emergency department did not show any evidence of acute of normalities except for slight elevation CPK as well as hyponatremia with the microscopic hematuria patient was started on IV fluid resuscitation he was placed on thiamine 100 mg IV push every 24 hours folic acid and B12, and he was admitted to the hospital for impending alcohol withdrawal he was started on CIWA protocol. 03/08: Patient is sitting up in the chair his feeling better today he denies any chest pain or shortness breath. Complains of increased in the lower back, he continues to the urine incontinent, he denies any tremors, he has no headache, he has no myalgias, patient will be taken off his IV fluid, physical therapy and occupational therapy evaluation for possible subacute rehabilitation the next 24 hours. 03/09: patient was sitting up in the chair in no apparent distress he denies any chest pain, no shortness breath, he denies any abdominal pain, no nausea or vomiting or diarrhea, he would be seen later on by physical therapy as well as by the psych social worker to make a final decision on the disposition of the patient with her home with home PT for subacute rehabilitation if he qualifies for that and he wanted to go to [facility] at that point, his pain prescription was left at the desk with the unit tech, await a call back from the psych social worker and or bilingual patient support caseworker, nurse was notified about the plan of care and asked her to give me a call back when the final decision is reached. 03/10: patient is sitting up at the edge of the bed he is feeling upset because he spend all day long in the hospital, I did not get any Medication from either the psych social worker or the nursing staff taking care of the patient yesterday, despite my instruction forcing the morning, patient at this point in time I don't think he is qualified to go for extended care facility subsequently we will send him home with physical therapy patient option is to go to [facility] based on the family ability and financial situation to do so, otherwise she will be released home to follow-up with me as an outpatient in about one week from now he already has an appointment for next week. discharge diagnosis: 1. Hypovolemic hyponatremia. 2. Chronic alcohol use and dependence with impending alcohol withdrawal. 3. Hypertension and hypertensive cardiovascular disease. 4. Peripheral neuropathy. 5. Chronic low back pain with spinal stenosis and spondylosis. 6. Depression. 7. GI prophylaxis. 8. Mild elevation of the CPK, 9. DVT prophylaxis. 10. Generalized weakness with gait dysfunction and recurrent falls. Patient Condition at Discharge: Fair Plan - Discharge Summary Discharge Rx Participant: No New Discharge Prescriptions: New HYDROcodone/APAP 5-325MG [[place] 5-325] 1 each PO Q12H PRN 3 Days #6 tab PRN Reason: Pain Famotidine [Pepcid] 20 mg PO BID tab Thiamine [Vitamin B-1] 100 mg PO DAILY tab HYDROcodone/APAP 5-325MG [[place] 5-325] 1 tab PO Q12H PRN 3 Days #6 tab PRN Reason: Pain Continue Multivit-Min/FA/Lycopen/Lutein [Centrum Silver Men Tablet] 1 tab PO DAILY amLODIPine [Norvasc] 5 mg PO DAILY tab Potassium Chloride [Klor-Con 20] 20 meq PO DAILY Losartan [Cozaar] 50 mg PO DAILY Furosemide [Lasix] 40 mg PO DAILY DULoxetine HCL [Cymbalta] 30 mg PO DAILY Cyanocobalamin (Vitamin B-12) [Vitamin B-12] 1,000 mcg PO DAILY Folic Acid 0.8 mg PO DAILY Pregabalin [Lyrica] 150 mg PO BID 3 Days #6 cap Discontinued HYDROcodone/APAP 10-325MG [[place] 10-325] 1 tab PO QID PRN PRN Reason: Pain Discharge Medication List Multivit-Min/FA/Lycopen/Lutein [Centrum Silver Men Tablet] 1 tab PO DAILY 11/07/19 [History] amLODIPine [Norvasc] 5 mg PO DAILY tab 11/11/19 [Rx] Cyanocobalamin (Vitamin B-12) [Vitamin B-12] 1,000 mcg PO DAILY 12/02/19 [History] DULoxetine HCL [Cymbalta] 30 mg PO DAILY 12/02/19 [History] Furosemide [Lasix] 40 mg PO DAILY 12/02/19 [History] Losartan [Cozaar] 50 mg PO DAILY 12/02/19 [History] Potassium Chloride [Klor-Con 20] 20 meq PO DAILY 12/02/19 [History] Folic Acid 0.8 mg PO DAILY 03/06/20 [History] Famotidine [Pepcid] 20 mg PO BID tab 03/09/20 [Rx] HYDROcodone/APAP 5-325MG [[place] 5-325] 1 each PO Q12H PRN 3 Days #6 tab 03/09/20 [Rx] HYDROcodone/APAP 5-325MG [[place] 5-325] 1 tab PO Q12H PRN 3 Days #6 tab 03/09/20 [Rx] Pregabalin [Lyrica] 150 mg PO BID 3 Days #6 cap 03/09/20 [Rx] Thiamine [Vitamin B-1] 100 mg PO DAILY tab 03/09/20 [Rx] Follow up Appointment(s)/Referral(s): Johnny Lane MD [Primary Care Provider] - 03/11/20 11:30 am Patient Instructions/Handouts: Alcohol Withdrawal (DC) Discharge Disposition: TRANSFER TO SNF/ECF
== END 2020-03-10 12:41 | disposition home health service (06) | DRG 897 ==
LOC: EC 16:49 → 5NMEDONC 19:28
PROVIDERS: ADMIT Internal Medicine; ATTEND Internal Medicine
DX: F10.239 Alcohol dependence with withdrawal, unspecified (principal); E87.1 Hypo-osmolality and hyponatremia; Z68.41 Body mass index [BMI] 40.0-44.9, adult; I11.9 Hypertensive heart disease without heart failure; E78.5 Hyperlipidemia, unspecified; E86.0 Dehydration; E86.1 Hypovolemia; F32.9 Major depressive disorder, single episode, unspecified; G62.9 Polyneuropathy, unspecified; G89.29 Other chronic pain; R29.6 Repeated falls; R32 Unspecified urinary incontinence; M48.061 Spinal stenosis, lumbar region without neurogenic claudication; M47.816 Spondylosis without myelopathy or radiculopathy, lumbar region; E66.9 Obesity, unspecified; G47.33 Obstructive sleep apnea (adult) (pediatric); R26.9 Unspecified abnormalities of gait and mobility; M79.606 Pain in leg, unspecified; Z11.59 Encounter for screening for other viral diseases; Z79.899 Other long term (current) drug therapy; Z80.1 Family history of malignant neoplasm of trachea, bronchus and lung; Z82.49 Family history of ischemic heart disease and other diseases of the circulatory system
CPT/HCPCS: 36415; 71046; 80053; 81001; 82550; 83605; 83735; 84100; 84439; 84443; 84481; 84484; 85025; 85610; 85730; 93005; 96361; 96374; 99285

== ENCOUNTER 2020-07-17 12:31 | Emergency (ER) | payer MEDICARE, OTHER ==
[2020-07-17 12:47] VITALS: TEMP 99.1
[2020-07-17] MEDS ORDERED: MORPHINE SULFATE 4 MG/ML SYRINGE IM STA (14:16)
[2020-07-17] MEDS ORDERED: KETOROLAC 15 MG/ML 1 ML VIAL IM STA (14:16)
--- NOTE | 2020-07-17 14:24 | ED ---
General Adult HPI - General Chief complaint: Neck Pain/Injury Stated complaint: neck pain Time Seen by Provider: 07/17/20 13:55 Source: patient, RN notes reviewed, old records reviewed Mode of arrival: wheelchair Limitations: no limitations - History of Present Illness Initial comments: 70-year-old male presents emergency department today for evaluation chief complaint of left-sided neck pain. He reports that he's had neck pain off-and-on for the past 8 days but for the past 4 days been more severe. He reports it feels like a deep muscle spasm. Patient states that he has had some frequent falls over the past 2 weeks. patient attributes his falls to bilateral lower extremity neuropathy. Patient denies any direct trauma to the neck that he is aware. Patient reports that she has had no chest pain shortness of breath nausea or vomiting. He also complains of chronic left knee pain that he wants to be evaluated as well. Patient reports that he called his primary care doctor stating that his at home [place] and Flexeril were not helpful at this pain and he was encouraged to come to the ER for evaluation today. Patient did drive here. - Related Data Home Medications Medication Instructions Recorded Confirmed Multivit-Min/FA/Lycopen/Lutein 1 tab PO DAILY 11/07/19 03/06/20 [Centrum Silver Men Tablet] Cyanocobalamin (Vitamin B-12) 1,000 mcg PO DAILY 12/02/19 03/06/20 [Vitamin B-12] DULoxetine HCL [Cymbalta] 30 mg PO DAILY 12/02/19 03/07/20 Furosemide [Lasix] 40 mg PO DAILY 12/02/19 03/07/20 Losartan [Cozaar] 50 mg PO DAILY 12/02/19 03/07/20 Potassium Chloride [Klor-Con 20] 20 meq PO DAILY 12/02/19 03/06/20 Folic Acid 0.8 mg PO DAILY 03/06/20 03/06/20 Previous Rx's Medication Instructions Recorded amLODIPine [Norvasc] 5 mg PO DAILY tab 11/11/19 Famotidine [Pepcid] 20 mg PO BID tab 03/09/20 HYDROcodone/APAP 5-325MG [[place] 1 each PO Q12H PRN 3 Days #6 tab 03/09/20 5-325] HYDROcodone/APAP 5-325MG [[place] 1 tab PO Q12H PRN 3 Days #6 tab 03/09/20 5-325] Pregabalin [Lyrica] 150 mg PO BID 3 Days #6 cap 03/09/20 Thiamine [Vitamin B-1] 100 mg PO DAILY tab 03/09/20 Allergies Allergy/AdvReac Type Severity Reaction Status Date / Time No Known Allergies Allergy Verified 07/17/20 12:48 Review of Systems ROS Statement: Those systems with pertinent positive or pertinent negative responses have been documented in the HPI. ROS Other: All systems not noted in ROS Statement are negative. Past Medical History Past Medical History: Dementia, Hyperlipidemia, Hypertension, Osteoarthritis (OA) Additional Past Medical History / Comment(s): ETOH abuse, chronic back pain, BLE neuropathy, lymphedema, multiple falls History of Any Multi-Drug Resistant Organisms: None Reported Past Surgical History: Back Surgery, Orthopedic Surgery, Tonsillectomy Additional Past Surgical History / Comment(s): 3 back laminectomies, hand surgery s/p trauma to reattatch tendons Past Anesthesia/Blood Transfusion Reactions: No Reported Reaction Past Psychological History: No Psychological Hx Reported Smoking Status: Never smoker Past Alcohol Use History: None Reported Past Drug Use History: None Reported - Past Family History Father Family Medical History: Hypertension (Father at age 94 from the old age had a history of hypertension.) Mother Family Medical History: Cancer (Mother at age of 84 from lung cancer) Additional Family Medical History / Comment(s): Lung cancer Brother(s) Family Medical History: No Reported History (Patient has 2 brothers one is 86-year-old male one 79-year-old no major medical problems.) Sister(s) Family Medical History: Hypertension (Patient has one sister 67-year-old with history of hypertension.) Daughter(s) Family Medical History: No Reported History (Patient has one daughter no major medical problems.) General Exam - General Exam Comments Initial Comments: 70-year-old male. Alert and oriented 3. Limitations: no limitations General appearance: alert, in no apparent distress Head exam: Present: atraumatic, normocephalic, normal inspection Eye exam: Present: normal appearance ENT exam: Present: normal exam, mucous membranes moist Neck exam: Present: normal inspection, tenderness (over right paraspinal crvical muscles) Respiratory exam: Present: normal lung sounds bilaterally. Absent: respiratory distress, wheezes, rales, rhonchi, stridor Cardiovascular Exam: Present: regular rate, normal rhythm, normal heart sounds. Absent: systolic murmur, diastolic murmur, rubs, gallop, clicks Extremities exam: Present: normal inspection, full ROM, normal capillary refill. Absent: tenderness, pedal edema, joint swelling, calf tenderness Back exam: Present: normal inspection Neurological exam: Present: alert, oriented X3, CN II-XII intact Psychiatric exam: Present: normal affect, normal mood Skin exam: Present: warm, dry, intact, normal color. Absent: rash Course Vital Signs 07/17/20 07/17/20 12:42 15:02 Temperature 99.1 F Pulse Rate 76 65 Respiratory 20 18 Rate Blood Pressure 122/71 131/60 O2 Sat by Pulse 99 98 Oximetry Medical Decision Making - Medical Decision Making 70 year oldmale with neck pain for 4 days and tenderness over paraspinal muscles and complains of muscle spasm.CT is negative for fracture. He also complained of chronic L knee pain, and xray is negative for fracture. He has full ROM of knee. Discussed arthritis presents in CT and xr. PT has home medications for pain. Discussed pt to use theseand follow up with ortho and PCP. - Radiology Data Radiology results: report reviewed Knee xray is negative for acute process. CT brain and cspine show no fracture or intracranial hemorrhage. Evidence of DDD on cervical spine. Disposition Clinical Impression: Neck muscle spasm Disposition: HOME SELF-CARE Condition: Good Instructions (If sedation given, give patient instructions): Cervical Sprain (ED) Additional Instructions: Patient has a follow-up with primary care doctor and possible chiropractor for therapeutic massage. If symptoms continue to persist or any worsening signs or symptoms he can always return to the emergency department and also orthopedic follow-up as well. Patient should take at home pain medicine muscle relaxers. Return to the ED if any alarming signs or symptoms occur. Is patient prescribed a controlled substance at d/c from ED?: No Referrals: Johnny Lane MD [Primary Care Provider] - 1-2 days Radha Reyes DO [Doctor of Osteopathic Medicine] - 1-2 days Time of Disposition: 15:49
--- NOTE | 2020-07-17 15:03 | XR ---
EXAMINATION TYPE: XR knee complete LT DATE OF EXAM: 07/17/2020 COMPARISON: None HISTORY: Pain TECHNIQUE: Three-view left knee FINDINGS: There is narrowing of the medial compartment joint space. Medial tibial plateau and medial femoral condylar spurring is present. Some minimal spurring from the lateral tibial plateau may be pr esent. Tiny ossifications over the lateral tibial spine in the frontal projection. Tiny avulsion is n ot excluded. No significant joint effusion is evident. IMPRESSION: 1. Moderate degenerative changes medial compartment left knee. 2. Tiny avulsion from the lateral tibial spine is not excluded. Consider MRI if additional evaluation would be of benefit
[2020-07-17 15:06] VITALS: BP 131/60; PULSE 65; RESP 18
--- NOTE | 2020-07-17 15:24 | CT ---
EXAMINATION TYPE: CT brain cspine wo con DATE OF EXAM: 07/17/2020 COMPARISON: CT brain and cervical spine 12/02/2019 HISTORY: Fall CT DLP: 1636.8 mGycm Automated exposure control for dose reduction was used. TECHNIQUE: CT scan of the head and cervical spine are performed without contrast. FINDINGS: There is no acute intracranial hemorrhage, mass effect, or midline shift identified. No extra-axial fluid collection. The ventricles and sulci are within normal limits in size. Right matte r hypodensities likely sequela of chronic microvascular ischemic change. No calvarial depressed fract ure. The globes are grossly symmetric. The mastoid air cells and sinuses are clear. Cervical spine is visualized in its entirety from C1 through upper thoracic levels with reversal of t he cervical lordosis. No evidence of acute fracture or dislocation. Grade 1 anterolisthesis of C2 on C3. Diffuse degenerative changes with varying degrees of neural foramina narrowing and canal stenosi s. Prevertebral soft tissue appears within normal limits. The C1-C2 articulation is unremarkable. Old right rib 3 healed fracture deformity. Redemonstrated pleural thickening of the lung apices. IMPRESSION: 1. Degenerative changes of the cervical spine, with no acute fracture or dislocation. 2. No acute intracranial hemorrhage, mass effect, or midline shift is seen.
== END 2020-07-17 16:00 | disposition home or self-care (01) ==
LOC: EC 12:31
DX: M62.830 Muscle spasm of back (principal); F03.90 Unspecified dementia, unspecified severity, without behavioral disturbance, psychotic disturbance, mood disturbance, and anxiety; I10 Essential (primary) hypertension; M19.90 Unspecified osteoarthritis, unspecified site; G89.29 Other chronic pain; M54.9 Dorsalgia, unspecified; G62.9 Polyneuropathy, unspecified; Z79.899 Other long term (current) drug therapy; Z98.890 Other specified postprocedural states
CPT/HCPCS: 73562; 72125; 70450; 99284; 96372 ×2; J2270; J1885

== ENCOUNTER 2021-01-08 21:19 | Inpatient (IN) | payer MEDICARE, OTHER ==
[2021-01-08 22:07] LABS: Appearance,Urine Clear (Clear); Bacteria,Urine Rare /hpf; Bilirubin,Urine Negative (Negative); Blood,Urine Small (Negative); Color,Urine Yellow; Glucose,Urine (UA) Negative (Negative); Ketones,Urine Negative (Negative); Leukocyte Esterase,Urine Negative (Negative); Mucus,Urine Rare /hpf; Nitrite,Urine Negative (Negative); Protein,Urine Negative (Negative); RBC,Urine 1 /hpf (0-5); Specific Gravity,Urine 1.007 (1.001-1.035); Urobilinogen,Urine <2.0 mg/dL (<2.0); WBC,Urine 1 /hpf (0-5)
[2021-01-08] MEDS ORDERED: PRAMIPEXOLE 0.125 MG TAB PO STA (22:07)
[2021-01-08 22:12] LABS: Basophils # (A) 0.1 k/uL (0-0.2); Basophils % (A) 1 %; Eosinophils # (A) 0.5 k/uL (0-0.7); Eosinophils % (A) 5 %; HCT 35.2 % (39.0-53.0); HGB 11.6 gm/dL (13.0-17.5); INR 0.9 (<1.2); Lymphocytes # (A) 1.1 k/uL (1.0-4.8); Lymphocytes % (A) 11 %; MCH 32.9 pg (25.0-35.0); MCHC 32.9 g/dL (31.0-37.0); MCV 99.8 fL (80.0-100.0); Mean Platelet Volume 7.2; Monocytes # (A) 0.9 k/uL (0-1.0); Monocytes % (A) 9 %; Neutrophils # (A) 7.2 k/uL (1.3-7.7); Neutrophils % (A) 73 %; Partial Thromboplastin Time 23.3 sec (22.0-30.0); Platelet Count 193 k/uL (150-450); RBC 3.53 m/uL (4.30-5.90)
--- NOTE | 2021-01-08 22:28 | XR ---
EXAMINATION TYPE: XR chest 2V DATE OF EXAM: 01/08/2021 COMPARISON: 03/06/2020 HISTORY: Weakness TECHNIQUE: FINDINGS: There is no heart failure nor confluent pneumonic infiltrate. Heart size is normal. There a re no hilar masses. Costophrenic angles are clear. Bony thorax appears intact. IMPRESSION: No active cardiopulmonary disease. No change.
--- NOTE | 2021-01-08 23:06 | ED ---
Weakness HPI - General Chief complaint: Weakness Stated complaint: Weakness Time Seen by Provider: 01/08/21 21:22 Source: patient, EMS Mode of arrival: EMS Limitations: physical limitation - History of Present Illness MD Complaint: generalized weakness, lack of energy, difficulty walking -: days(s) Location: generalized Severity: moderate Severity scale (1-10): 0 Consistency: constant Improves with: none Worsens with: none Associated Symptoms: other (Twitching) - Related Data Home Medications Medication Instructions Recorded Confirmed Multivit-Min/FA/Lycopen/Lutein 1 tab PO DAILY 11/07/19 01/08/21 [Centrum Silver Men Tablet] Cyanocobalamin (Vitamin B-12) 1,000 mcg PO DAILY 12/02/19 01/08/21 [Vitamin B-12] DULoxetine HCL [Cymbalta] 30 mg PO DAILY 12/02/19 01/08/21 Furosemide [Lasix] 40 mg PO DAILY 12/02/19 01/08/21 Losartan [Cozaar] 50 mg PO DAILY 12/02/19 01/08/21 Potassium Chloride [Klor-Con 20] 20 meq PO DAILY 12/02/19 01/08/21 Folic Acid 0.8 mg PO DAILY 03/06/20 01/08/21 Cyclobenzaprine [Flexeril] 5 mg PO HS PRN 01/08/21 01/08/21 Memantine HCl [Namenda] 5 mg PO DAILY 01/08/21 01/08/21 Previous Rx's Medication Instructions Recorded amLODIPine [Norvasc] 5 mg PO DAILY tab 11/11/19 Pregabalin [Lyrica] 150 mg PO BID 3 Days #6 cap 03/09/20 Allergies Allergy/AdvReac Type Severity Reaction Status Date / Time No Known Allergies Allergy Verified 01/08/21 21:30 Review of Systems ROS Statement: Those systems with pertinent positive or pertinent negative responses have been documented in the HPI. ROS Other: All systems not noted in ROS Statement are negative. Constitutional: Reports: weakness. Denies: fever, chills Respiratory: Denies: cough, dyspnea Cardiovascular: Denies: chest pain, palpitations, edema Gastrointestinal: Denies: abdominal pain, nausea, vomiting, diarrhea Genitourinary: Denies: dysuria, hematuria Musculoskeletal: Denies: back pain Skin: Denies: rash Neurological: Reports: paresthesias. Denies: headache, weakness, numbness Past Medical History Past Medical History: Dementia, Hyperlipidemia, Hypertension, Osteoarthritis (OA) Additional Past Medical History / Comment(s): ETOH abuse, chronic back pain, BLE neuropathy, lymphedema, multiple falls History of Any Multi-Drug Resistant Organisms: None Reported Past Surgical History: Back Surgery, Orthopedic Surgery, Tonsillectomy Additional Past Surgical History / Comment(s): 3 back laminectomies, hand surgery s/p trauma to reattatch tendons Past Anesthesia/Blood Transfusion Reactions: No Reported Reaction Past Psychological History: No Psychological Hx Reported Smoking Status: Never smoker Past Alcohol Use History: Daily Past Drug Use History: None Reported - Past Family History Father Family Medical History: Hypertension (Father at age 94 from the old age had a history of hypertension.) Mother Family Medical History: Cancer (Mother at age of 84 from lung cancer) Additional Family Medical History / Comment(s): Lung cancer Brother(s) Family Medical History: No Reported History (Patient has 2 brothers one is 86-year-old male one 79-year-old no major medical problems.) Sister(s) Family Medical History: Hypertension (Patient has one sister 67-year-old with history of hypertension.) Daughter(s) Family Medical History: No Reported History (Patient has one daughter no major medical problems.) General Exam Limitations: physical limitation General appearance: alert, in no apparent distress, obese Head exam: Present: atraumatic, normocephalic Eye exam: Present: normal appearance. Absent: scleral icterus, conjunctival injection ENT exam: Present: normal oropharynx Neck exam: Present: normal inspection, full ROM Respiratory exam: Present: normal lung sounds bilaterally. Absent: respiratory distress, wheezes, rales, rhonchi, stridor Cardiovascular Exam: Present: regular rate, normal rhythm, normal heart sounds. Absent: systolic murmur, diastolic murmur, rubs, gallop GI/Abdominal exam: Present: soft. Absent: distended, tenderness, guarding, rebound, rigid Extremities exam: Present: normal capillary refill, pedal edema, other (Chronic venous stasis changes with a number of ulcerations and weeping). Absent: tenderness Back exam: Present: normal inspection. Absent: vertebral tenderness Neurological exam: Present: alert, oriented X3. Absent: motor sensory deficit Skin exam: Present: warm, dry, intact, other (As above). Absent: rash Course Vital Signs 01/08/21 01/08/21 01/08/21 21:24 22:00 22:42 Temperature 99.0 F Pulse Rate 85 88 Respiratory 20 20 20 Rate Blood Pressure 102/89 O2 Sat by Pulse 99 99 Oximetry 01/08/21 01/09/21 01/09/21 23:00 00:00 03:33 Temperature 97.7 F Pulse Rate 80 84 80 Respiratory 18 18 18 Rate Blood Pressure 136/81 124/54 O2 Sat by Pulse 99 99 99 Oximetry EKG Findings - EKG Results: EKG: interpreted by ERMD, sinus rhythm (Rate 75 bpm), normal axis, normal QRS, normal ST/T - Blocks, [place], Hypertrophy, ST Abn: AV and intraventricular conduction: 1 AV block Medical Decision Making - Lab Data Result diagrams: 01/10/21 05:52 01/10/21 05:52 Lab Results 01/08/21 01/08/21 01/08/21 Range/Units 21:34 21:34 21:34 WBC 10.0 (3.8-10.6) k/uL RBC 3.53 L (4.30-5.90) m/uL Hgb 11.6 L (13.0-17.5) gm/dL Hct 35.2 L (39.0-53.0) % MCV 99.8 (80.0-100.0) fL MCH 32.9 (25.0-35.0) pg MCHC 32.9 (31.0-37.0) g/dL RDW 13.0 (11.5-15.5) % Plt Count 193 (150-450) k/uL MPV 7.2 Neutrophils % 73 % Lymphocytes % 11 % Monocytes % 9 % Eosinophils % 5 % Basophils % 1 % Neutrophils # 7.2 (1.3-7.7) k/uL Lymphocytes # 1.1 (1.0-4.8) k/uL Monocytes # 0.9 (0-1.0) k/uL Eosinophils # 0.5 (0-0.7) k/uL Basophils # 0.1 (0-0.2) k/uL PT 10.0 (9.0-12.0) sec INR 0.9 (<1.2) APTT 23.3 (22.0-30.0) sec Sodium (137-145) mmol/L Potassium (3.5-5.1) mmol/L Chloride (98-107) mmol/L Carbon Dioxide (22-30) mmol/L Anion Gap mmol/L BUN (9-20) mg/dL Creatinine (0.66-1.25) mg/dL Est GFR (CKD-EPI)AfAm (>60 ml/min/1.73 sqM) Est GFR (CKD-EPI)NonAf (>60 ml/min/1.73 sqM) Glucose (74-99) mg/dL Osmolality (280-301) mosm/kg Plasma Lactic Acid Gerardo 1.2 (0.7-2.0) mmol/L Calcium (8.4-10.2) mg/dL Total Bilirubin (0.2-1.3) mg/dL AST (17-59) U/L ALT (4-49) U/L Alkaline Phosphatase (38-126) U/L Troponin I (0.000-0.034) ng/mL Total Protein (6.3-8.2) g/dL Albumin (3.5-5.0) g/dL Urine Color Urine Appearance (Clear) Urine pH (5.0-8.0) Ur Specific [place] (1.001-1.035) Urine Protein (Negative) Urine Glucose (UA) (Negative) Urine Ketones (Negative) Urine Blood (Negative) Urine Nitrite (Negative) Urine Bilirubin (Negative) Urine Urobilinogen (<2.0) mg/dL Ur Leukocyte Esterase (Negative) Urine RBC (0-5) /hpf Urine WBC (0-5) /hpf Urine Bacteria (None) /hpf Urine Mucus (None) /hpf Urine Osmolality (50-1400) mosm/kg Ur Random Creatinine mg/dL Ur Random Sodium mmol/L Ur Random Potassium mmol/L Urine Opiates Screen (NotDetected) Ur Oxycodone Screen (NotDetected) Urine Methadone Screen (NotDetected) Ur Propoxyphene Screen (NotDetected) Ur Barbiturates Screen (NotDetected) U Tricyclic Antidepress (NotDetected) Ur Phencyclidine Scrn (NotDetected) Ur Amphetamines Screen (NotDetected) U Methamphetamines Scrn (NotDetected) U Benzodiazepines Scrn (NotDetected) Urine Cocaine Screen (NotDetected) U Marijuana (THC) Screen (NotDetected) 01/08/21 01/08/21 01/08/21 Range/Units 21:34 21:34 21:34 WBC (3.8-10.6) k/uL RBC (4.30-5.90) m/uL Hgb (13.0-17.5) gm/dL Hct (39.0-53.0) % MCV (80.0-100.0) fL MCH (25.0-35.0) pg MCHC (31.0-37.0) g/dL RDW (11.5-15.5) % Plt Count (150-450) k/uL MPV Neutrophils % % Lymphocytes % % Monocytes % % Eosinophils % % Basophils % % Neutrophils # (1.3-7.7) k/uL Lymphocytes # (1.0-4.8) k/uL Monocytes # (0-1.0) k/uL Eosinophils # (0-0.7) k/uL Basophils # (0-0.2) k/uL PT (9.0-12.0) sec INR (<1.2) APTT (22.0-30.0) sec Sodium (137-145) mmol/L Potassium (3.5-5.1) mmol/L Chloride (98-107) mmol/L Carbon Dioxide (22-30) mmol/L Anion Gap mmol/L BUN (9-20) mg/dL Creatinine (0.66-1.25) mg/dL Est GFR (CKD-EPI)AfAm (>60 ml/min/1.73 sqM) Est GFR (CKD-EPI)NonAf (>60 ml/min/1.73 sqM) Glucose (74-99) mg/dL Osmolality (280-301) mosm/kg Plasma Lactic Acid Gerardo (0.7-2.0) mmol/L Calcium (8.4-10.2) mg/dL Total Bilirubin (0.2-1.3) mg/dL AST (17-59) U/L ALT (4-49) U/L Alkaline Phosphatase (38-126) U/L Troponin I <0.012 (0.000-0.034) ng/mL Total Protein (6.3-8.2) g/dL Albumin (3.5-5.0) g/dL Urine Color Yellow Urine Appearance Clear (Clear) Urine pH 5.0 (5.0-8.0) Ur Specific [place] 1.007 (1.001-1.035) Urine Protein Negative (Negative) Urine Glucose (UA) Negative (Negative) Urine Ketones Negative (Negative) Urine Blood Small H (Negative) Urine Nitrite Negative (Negative) Urine Bilirubin Negative (Negative) Urine Urobilinogen <2.0 (<2.0) mg/dL Ur Leukocyte Esterase Negative (Negative) Urine RBC 1 (0-5) /hpf Urine WBC 1 (0-5) /hpf Urine Bacteria Rare H (None) /hpf Urine Mucus Rare H (None) /hpf Urine Osmolality 217 (50-1400) mosm/kg Ur Random Creatinine 86.8 mg/dL Ur Random Sodium mmol/L Ur Random Potassium mmol/L Urine Opiates Screen (NotDetected) Ur Oxycodone Screen (NotDetected) Urine Methadone Screen (NotDetected) Ur Propoxyphene Screen (NotDetected) Ur Barbiturates Screen (NotDetected) U Tricyclic Antidepress (NotDetected) Ur Phencyclidine Scrn (NotDetected) Ur Amphetamines Screen (NotDetected) U Methamphetamines Scrn (NotDetected) U Benzodiazepines Scrn (NotDetected) Urine Cocaine Screen (NotDetected) U Marijuana (THC) Screen (NotDetected) 01/08/21 01/08/21 01/08/21 Range/Units 21:34 21:34 21:34 WBC (3.8-10.6) k/uL RBC (4.30-5.90) m/uL Hgb (13.0-17.5) gm/dL Hct (39.0-53.0) % MCV (80.0-100.0) fL MCH (25.0-35.0) pg MCHC (31.0-37.0) g/dL RDW (11.5-15.5) % Plt Count (150-450) k/uL MPV Neutrophils % % Lymphocytes % % Monocytes % % Eosinophils % % Basophils % % Neutrophils # (1.3-7.7) k/uL Lymphocytes # (1.0-4.8) k/uL Monocytes # (0-1.0) k/uL Eosinophils # (0-0.7) k/uL Basophils # (0-0.2) k/uL PT (9.0-12.0) sec INR (<1.2) APTT (22.0-30.0) sec Sodium (137-145) mmol/L Potassium (3.5-5.1) mmol/L Chloride (98-107) mmol/L Carbon Dioxide (22-30) mmol/L Anion Gap mmol/L BUN (9-20) mg/dL Creatinine (0.66-1.25) mg/dL Est GFR (CKD-EPI)AfAm (>60 ml/min/1.73 sqM) Est GFR (CKD-EPI)NonAf (>60 ml/min/1.73 sqM) Glucose (74-99) mg/dL Osmolality 261 L (280-301) mosm/kg Plasma Lactic Acid Gerardo (0.7-2.0) mmol/L Calcium (8.4-10.2) mg/dL Total Bilirubin (0.2-1.3) mg/dL AST (17-59) U/L ALT (4-49) U/L Alkaline Phosphatase (38-126) U/L Troponin I (0.000-0.034) ng/mL Total Protein (6.3-8.2) g/dL Albumin (3.5-5.0) g/dL Urine Color Urine Appearance (Clear) Urine pH (5.0-8.0) Ur Specific [place] (1.001-1.035) Urine Protein (Negative) Urine Glucose (UA) (Negative) Urine Ketones (Negative) Urine Blood (Negative) Urine Nitrite (Negative) Urine Bilirubin (Negative) Urine Urobilinogen (<2.0) mg/dL Ur Leukocyte Esterase (Negative) Urine RBC (0-5) /hpf Urine WBC (0-5) /hpf Urine Bacteria (None) /hpf Urine Mucus (None) /hpf Urine Osmolality (50-1400) mosm/kg Ur Random Creatinine mg/dL Ur Random Sodium <10 mmol/L Ur Random Potassium 28.0 mmol/L Urine Opiates Screen Detected H (NotDetected) Ur Oxycodone Screen Not Detected (NotDetected) Urine Methadone Screen Not Detected (NotDetected) Ur Propoxyphene Screen Not Detected (NotDetected) Ur Barbiturates Screen Not Detected (NotDetected) U Tricyclic Antidepress Not Detected (NotDetected) Ur Phencyclidine Scrn Not Detected (NotDetected) Ur Amphetamines Screen Not Detected (NotDetected) U Methamphetamines Scrn Not Detected (NotDetected) U Benzodiazepines Scrn Not Detected (NotDetected) Urine Cocaine Screen Not Detected (NotDetected) U Marijuana (THC) Screen Not Detected (NotDetected) 01/08/21 Range/Units 23:02 WBC (3.8-10.6) k/uL RBC (4.30-5.90) m/uL Hgb (13.0-17.5) gm/dL Hct (39.0-53.0) % MCV (80.0-100.0) fL MCH (25.0-35.0) pg MCHC (31.0-37.0) g/dL RDW (11.5-15.5) % Plt Count (150-450) k/uL MPV Neutrophils % % Lymphocytes % % Monocytes % % Eosinophils % % Basophils % % Neutrophils # (1.3-7.7) k/uL Lymphocytes # (1.0-4.8) k/uL Monocytes # (0-1.0) k/uL Eosinophils # (0-0.7) k/uL Basophils # (0-0.2) k/uL PT (9.0-12.0) sec INR (<1.2) APTT (22.0-30.0) sec Sodium 120 L (137-145) mmol/L Potassium 7.5 H* (3.5-5.1) mmol/L Chloride 90 L (98-107) mmol/L Carbon Dioxide 22 (22-30) mmol/L Anion Gap 8 mmol/L BUN 26 H (9-20) mg/dL Creatinine 2.02 H (0.66-1.25) mg/dL Est GFR (CKD-EPI)AfAm 38 (>60 ml/min/1.73 sqM) Est GFR (CKD-EPI)NonAf 33 (>60 ml/min/1.73 sqM) Glucose 109 H (74-99) mg/dL Osmolality (280-301) mosm/kg Plasma Lactic Acid Gerardo (0.7-2.0) mmol/L Calcium 9.4 (8.4-10.2) mg/dL Total Bilirubin 1.2 (0.2-1.3) mg/dL AST 69 H (17-59) U/L ALT 38 (4-49) U/L Alkaline Phosphatase 108 (38-126) U/L Troponin I (0.000-0.034) ng/mL Total Protein 7.3 (6.3-8.2) g/dL Albumin 4.3 (3.5-5.0) g/dL Urine Color Urine Appearance (Clear) Urine pH (5.0-8.0) Ur Specific [place] (1.001-1.035) Urine Protein (Negative) Urine Glucose (UA) (Negative) Urine Ketones (Negative) Urine Blood (Negative) Urine Nitrite (Negative) Urine Bilirubin (Negative) Urine Urobilinogen (<2.0) mg/dL Ur Leukocyte Esterase (Negative) Urine RBC (0-5) /hpf Urine WBC (0-5) /hpf Urine Bacteria (None) /hpf Urine Mucus (None) /hpf Urine Osmolality (50-1400) mosm/kg Ur Random Creatinine mg/dL Ur Random Sodium mmol/L Ur Random Potassium mmol/L Urine Opiates Screen (NotDetected) Ur Oxycodone Screen (NotDetected) Urine Methadone Screen (NotDetected) Ur Propoxyphene Screen (NotDetected) Ur Barbiturates Screen (NotDetected) U Tricyclic Antidepress (NotDetected) Ur Phencyclidine Scrn (NotDetected) Ur Amphetamines Screen (NotDetected) U Methamphetamines Scrn (NotDetected) U Benzodiazepines Scrn (NotDetected) Urine Cocaine Screen (NotDetected) U Marijuana (THC) Screen (NotDetected) Disposition Clinical Impression: Hyponatremia, Hyperkalemia, Dehydration, Acute kidney injury Disposition: ADMITTED IP TO THIS [facility] Condition: Undetermined Is patient prescribed a controlled substance at d/c from ED?: No
[2021-01-08 23:20] LABS: Albumin 4.3 g/dL (3.5-5.0); Calcium 9.4 mg/dL (8.4-10.2); Total Bilirubin 1.2 mg/dL (0.2-1.3); Total Protein 7.3 g/dL (6.3-8.2)
[2021-01-08 23:34] LABS: Potassium 7.5 mmol/L (3.5-5.1)
[2021-01-08] MEDS ORDERED: INSULIN REGULAR 100 UNIT/ML VIAL IV STA (23:39)
[2021-01-08] MEDS ORDERED: DEXTROSE 50% SYRINGE 50 ML IVP STA (23:39)
[2021-01-08] MEDS ORDERED: SODIUM BICARB 8.4% 50 ML SYR (1 MEQ/ML) IV STA (23:39)
[2021-01-08] MEDS ORDERED: SODIUM CHLORIDE 0.9% 1,000 ML IV ONE (23:40)
[2021-01-08] MEDS ORDERED: CALCIUM GLUCONATE 1 GM in SODIUM CHLORIDE 0.9% 100 ML IVPB ONE (23:45)
[2021-01-08] MEDS ORDERED: NALOXONE 0.4 MG/ML 1 ML VIAL IV PRN (23:59)
[2021-01-08] MEDS ORDERED: ACETAMINOPHEN TAB 325 MG TAB PO PRN (23:59)
[2021-01-09] MEDS: SODIUM CHLORIDE 0.9% 1,000 ML IV SCH ×3 (01:32→23:11)
[2021-01-09] MEDS: HEPARIN SODIUM,PORCINE/PF 5,000 UNIT/0.5 ML SYRINGE SQ SCH ×4 (01:32→23:08)
[2021-01-09 01:45] LABS: Creatinine,Urine Random 86.8 mg/dL
[2021-01-09 03:06] LABS: Calcium 10.9 mg/dL (8.4-10.2)
[2021-01-09 03:26] LABS: Glucose,Whole Blood 121 mg/dL (75-99)
[2021-01-09 07:32] LABS: Glucose 104 mg/dL (74-99)
[2021-01-09] MEDS: FOLIC ACID 1 MG TAB PO SCH (08:49)
[2021-01-09] MEDS: PREGABALIN 75 MG CAP PO SCH ×2 (08:49→19:44)
[2021-01-09] MEDS: CYANOCOBALAMIN 500 MCG TAB PO SCH (08:49)
[2021-01-09] MEDS: FAMOTIDINE 20 MG TAB PO SCH (08:49)
[2021-01-09] MEDS: MULTIVITAMINS, THERA 1 EACH TAB PO SCH (08:49)
[2021-01-09] MEDS: DULoxetine HCL 30 MG CAPSULE.DR PO SCH (08:50)
[2021-01-09] MEDS: amLODIPine 5 MG TAB PO SCH (08:50)
[2021-01-09] MEDS ORDERED: MEMANTINE 5 MG TAB PO SCH (09:00)
[2021-01-09 09:08] LABS: Basophils % (A) 0 %; Eosinophils # (A) 0.3 k/uL (0-0.7); Eosinophils % (A) 4 %; HCT 31.9 % (39.0-53.0); HGB 11.1 gm/dL (13.0-17.5); Lymphocytes # (A) 0.8 k/uL (1.0-4.8); Lymphocytes % (A) 12 %; MCH 34.9 pg (25.0-35.0); MCHC 34.9 g/dL (31.0-37.0); MCV 99.9 fL (80.0-100.0); Mean Platelet Volume 7.3; Monocytes # (A) 0.8 k/uL (0-1.0); Monocytes % (A) 11 %; Neutrophils # (A) 5.1 k/uL (1.3-7.7); Neutrophils % (A) 72 %; Platelet Count 168 k/uL (150-450); RDW 12.3 % (11.5-15.5); WBC 7.1 k/uL (3.8-10.6)
[2021-01-09] MEDS ORDERED: LORazepam 2 MG/ML INJ IV PRN ×3 (09:28)
[2021-01-09] MEDS ORDERED: THIAMINE 100 MG/ML 2 ML VIAL IM STA (09:28)
[2021-01-09 09:47] LABS: Alcohol <10 mg/dL; Magnesium 2.3 mg/dL (1.6-2.3)
[2021-01-09 09:52] LABS: Cocaine Screen,Urine Not Detected (NotDetected); Opiate Screen,Urine Detected (NotDetected); Phencyclidine Screen,Urine Not Detected (NotDetected); Urn Cannabinoid Scrn Not Detected (NotDetected)
[2021-01-09 09:53] LABS: Amphetamine Screen,Urine Not Detected (NotDetected); Barbiturate Screen,Urine Not Detected (NotDetected); Benzodiazepines Screen,Urine Not Detected (NotDetected); Methadone Screen, Urine Not Detected (NotDetected); Oxycodone Screen, Urine Not Detected (NotDetected); Tricyclic Antidepressant,Urine Not Detected (NotDetected)
[2021-01-09 10:07] LABS: ALT 30 U/L (4-49); AST 53 U/L (17-59); African American GFR (CKD) 61 (>60 ml/min/1.73 sqM); Albumin 3.3 g/dL (3.5-5.0); Albumin/Globulin Ratio 1.3; Alkaline Phosphatase 92 U/L (38-126); Anion Gap 2 mmol/L; Blood Urea Nitrogen 25 mg/dL (9-20); Carbon Dioxide 26 mmol/L (22-30); Chloride 96 mmol/L (98-107); Globulin 2.6 g/dL; Non-African American GFR(CKD) 53 (>60 ml/min/1.73 sqM); Sodium 124 mmol/L (137-145); Total Bilirubin 0.9 mg/dL (0.2-1.3); Total Protein 5.9 g/dL (6.3-8.2)
--- NOTE | 2021-01-09 10:26 | P.HPIM ---
History of Present Illness H&P Date: 01/09/21 HISTORY OF PRESENT ILLNESS: This is a 70-year-old male one of my patient with a previous medical history significant for hypertension and hypertensive cardiovascular disease, hyperlipidemia, obesity with obstructive sleep apnea, history of chronic alcohol use and dependence with the peripheral neuropathy, significant spondylosis of the lumbar spine with spinal stenosis and significant chronic low back pain, patient presented to the emergency department at [facility] yesterday after he had called 911 because he was not feeling well, he didn't know what to do, patient denies any chest pain at that time, he has no shortness breath, he had no abdominal pain, he had no previous episode of vomiting or diarrhea, patient stated that he has been drinking alcohol about 3 beer over the last 3 days, unfortunately the patient has been having a chronic issues with alcohol, with significant issue with memory loss and chronic pain syndrome, he has not been seen in the office in quite some time, patient does appear to be with very poor hygiene he has not had shower in about a week. Does appear to have a significant erythema in both lower extremities with significant venous ulce rations, patient does complain of increased pain in both lower extremities we will obtain venous Doppler of both lower extremities to rule out any DVT, we'll start the patient on IV antibiotic in the form of Kefzol 1 g IV piggyback every 8 hours, apply Silvadene cream 1% cover with Kerlix and apply Rocky wrap bilaterally, patient also was found to have a significant hyperkalemia with a potassium of 7.5 and hyponatremia with hypochloremia patient was given IV fluid, he was given D50, he was given 10 units of regular insulin he was given Paxil 8, he was given albuterol, repeated potassium at midnight was about 6 his potassium in the morning still pending, nephrology consultation, social work therapist c onsultation and physical therapy consultation as well. REVIEW OF SYSTEMS: Constitutional: No documented fever, no chills, no night sweats. No weight change. positive for weakness weakness, fatigue or lethargy. Positive for daytime sleepiness. HEENT: No headache. No blurred vision or double vision, no loss of vision. No loss of Hearing, no ringing in the ears, no dizziness. No nasal drainage or congestion. No epistaxis. No sore throat. Lungs: No shortness of breath, no cough, no sputum production. No wheezing. Reports dyspnea with activity. Cardiovascular: No chest pain, positive for lower extremity edema. No palpitations. No paroxysmal nocturnal dyspnea. No orthopnea. No lightheadedness or dizziness. No syncopal episodes.Positive for nocturia. Abdominal: No abdominal pain. No nausea, vomiting. No diarrhea. No constipation. No bloody or tarry stools . No loss of appetite. Genitourinary: No dysuria, increased frequency, urgency. No urinary retention. Musculoskeletal: positive for neck pain, positive for chronic low back pain, positive for significant pain in both lower extremities with significant neuropathy, positive for gait dysfunction. Integumentary: Positive for venous ulcerations of both lower extremities , no lesions. No rash or pruritus. No unusual bruising. Does appear to have seborrheic dermatitis Neurologic: No aphasia. No facial droop. Memory loss. No head injury. No headache, positive for paresthesia in both lower x-rays. Psychiatric: Patient does appear to be somewhat depressed, appears to be a bit anxious, no suicidal thoughts or ideation. Endocrine: No abnormal blood sugars, increased weight. PAST MEDICAL HISTORY: 1. Hypertension and hypertensive cardiovascular disease. 2. Hyperlipidemia. 3. Hypothyroidism. 4. Chronic venous stasis with stasis dermatitis. 5. Chronic alcohol use and dependence. 6. Obstructive sleep apnea. 7. Peripheral neuropathy. 8. Vascular dementia. 9. Enlarged prostate. 10. 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 11. Restless leg syndrome. PAST SURGICAL HISTORY: 1. Laminectomies in the lumbar spine 3. 2. Tonsillectomy. 3. Hand surgery with tendon repair. SOCIAL HISTORY: Patient denies a history of smoking, he drinks about 3 beers every other day, he used to drink a lot heavier than that, he denies any drug use or abuse, he denie s any marijuana use and lives along, he has a daughter who comes a check on him, only on the weekend. FAMILY HISTORY: Father at age 93 from old age. History of hypertension and myocardial in [place] emergency department, mother at age of 84 from lung cancer and she was heavy smoker, patient has 2 brothers one of them is super morbid obesity and other one is okay, patient has 2 sisters one of them is 63-year-old with history of venous stasis, the other one is fine, patient has a daughter with no major medical problems 35-year-old. PHYSICAL EXAMINATION: General: this is a 70-year-old male who is laying down in bed does not appear to be in acute distress. HEENT: Head is atraumatic, normocephalic, pupils were equal round reactive to light and recommendation, extraocular muscle movement were intact, sclera nonicteric, conjunctivae were pale, mucous membranes of the mouth are somewhat d ry. Neck: Supple, no JVP, normal carotid upstroke bilaterally, no lymphadenopathy. Chest: Decreased breath sounds at the bases, few rhonchi, no extremity wheezes, no chest wall tenderness, no intercostal retractions. Heart: First heart sound is normal, second heart sound is normal there is systolic ejection murmur 2/6 located in the left sternal border. Abdomen: Soft, nontender, nondistended, positive bowel sounds. Extremities: There is significant venous stasis of both lower extremity is with increased erythema and venous ulceration with significant tenderness to palpation, with a chronic skin changes dorsalis pedis +1 bilaterally poor foot hygiene. Neurologic examination: Patient is awake alert and oriented X 3, cranial nerves II-12 appear grossly intact, muscle power were 4 out of 5 in upper extremities and 3out of 5 in bilateral lower extremities, deep tendon reflexes were depres sed bilaterally. ASSESSMENT AND PLAN: 1. acute hyperkalemia due to acute kidney injury and poor oral intake of fluid. Status post D 50, 10 units of insulin, albuterol nebulizer, and Kayexalate, c alcium gluconate, repeated potassium still pending place the patient on telemetry, nephrology consultation, monitor the patient very closely. 2. Hyponatremia secondary to hypovolemia in view of hyperkalemia rule out adrenal insufficiency his cortisol level is appropriate, continue patient on IV fluid in the form of normal saline decrease the rate to 75 mL an hour. 3. Bilateral lower extremity venous stasis with venous ulceration and superimposed cellulitis. Check venous Doppler of both lower extremity is, start the patient on Ancef 1 g IV piggyback every 8 hours, apply Silvadene cream 1% to both lower extremities wrapped with Kerlix wrap and apply Rocky wraps daily . 4. Hypertension and hypertensive cardiovascular disease. Discontinue losartan, resume amlodipine 5 mg orally once every day. 5. Hyperlipidemia. 6. Vascular dementia. Increase Namenda to 10 mg orally once every day. 7. Chronic alcohol use and dependence. Patient was advised to be abstinent from alcohol, apply CIWA protocol. 8. 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 Continue [place] 10/325 mg 1 tablet every 6 hours as needed. 9. Bilateral lower extremity neuropathy continue patient on Lyrica 150 mg orally twice every day. 10. Depression. Continue patient on Cymbalta 30 mg orally once every day. 11. DVT prophylaxis. Continue heparin 5000 units subcutaneously every 8 hours. 12. GI prophylaxis. Continue Pepcid 20 mg orally once every day. 13. Admit to inpatient. Estimate a length of stay 2 midnights. 14. Patient is full code. Past Medical History Past Medical History: Dementia, Hyperlipidemia, Hypertension, Osteoarthritis (OA) Additional Past Medical History / Comment(s): ETOH abuse, chronic back pain, BLE neuropathy, lymphedema, multiple falls History of Any Multi-Drug Resistant Organisms: None Reported Past Surgical History: Back Surgery, Orthopedic Surgery, Tonsillectomy Additional Past Surgical History / Comment(s): 3 back laminectomies, hand surgery s/p trauma to reattatch tendons Past Anesthesia/Blood Transfusion Reactions: No Reported Reaction Smoking Status: Never smoker - Past Family History Father Family Medical History: Hypertension Mother Family Medical History: Cancer Additional Family Medical History / Comment(s): Lung cancer Brother(s) Family Medical History: No Reported History Sister(s) Family Medical History: Hypertension Daughter(s) Family Medical History: No Reported History Medications and Allergies Home Medications Medication Instructions Recorded Confirmed Type Multivit-Min/FA/Lycopen/Lutein 1 tab PO DAILY 11/07/19 01/08/21 History [Centrum Silver Men Tablet] amLODIPine [Norvasc] 5 mg PO DAILY tab 11/11/19 01/08/21 Rx Cyanocobalamin (Vitamin B-12) 1,000 mcg PO DAILY 12/02/19 01/08/21 History [Vitamin B-12] DULoxetine HCL [Cymbalta] 30 mg PO DAILY 12/02/19 01/08/21 History Furosemide [Lasix] 40 mg PO DAILY 12/02/19 01/08/21 History Losartan [Cozaar] 50 mg PO DAILY 12/02/19 01/08/21 History Potassium Chloride [Klor-Con 20] 20 meq PO DAILY 12/02/19 01/08/21 History Folic Acid 0.8 mg PO DAILY 03/06/20 01/08/21 History Pregabalin [Lyrica] 150 mg PO BID 3 Days #6 cap 03/09/20 01/08/21 Rx Cyclobenzaprine [Flexeril] 5 mg PO HS PRN 01/08/21 01/08/21 History Memantine HCl [Namenda] 5 mg PO DAILY 01/08/21 01/08/21 History Allergies Allergy/AdvReac Type Severity Reaction Status Date / Time No Known Allergies Allergy Verified 01/08/21 21:30 Physical Exam Vitals: Vital Signs Temp Pulse Pulse Resp BP BP Pulse Ox 01/09/21 04:20 98.1 F 86 20 118/54 99 01/09/21 03:33 97.7 F 80 18 124/54 99 01/09/21 00:00 84 18 136/81 99 01/08/21 23:00 80 18 99 01/08/21 22:42 20 01/08/21 22:00 88 20 99 01/08/21 21:24 99.0 F 85 20 102/89 99 Intake and Output 01/08/21 01/09/21 01/09/21 22:59 06:59 14:59 Intake Total 490 Balance 490 Intake: Intake, IV Titration 250 Amount Sodium Chloride 0.9% 1, 250 000 ml @ 125 mls/hr IV . Q8H [facility] Rx#:[id number] Oral 240 Other: # Voids 1 Weight 151.953 kg 151.953 kg Results CBC & Chem 7: 01/09/21 06:49 01/09/21 06:49 Labs: Abnormal Lab Results - Last 24 Hours (Table) 01/08/21 01/08/21 01/08/21 Range/Units 21:34 21:34 21:34 RBC 3.53 L (4.30-5.90) m/uL Hgb 11.6 L (13.0-17.5) gm/dL Hct 35.2 L (39.0-53.0) % Sodium (137-145) mmol/L Potassium (3.5-5.1) mmol/L Chloride (98-107) mmol/L BUN (9-20) mg/dL Creatinine (0.66-1.25) mg/dL Glucose (74-99) mg/dL POC Glucose (mg/dL) (75-99) mg/dL Osmolality 261 L (280-301) mosm/kg Calcium (8.4-10.2) mg/dL AST (17-59) U/L Urine Blood Small H (Negative) Urine Bacteria Rare H (None) /hpf Urine Mucus Rare H (None) /hpf 01/08/21 01/09/21 01/09/21 Range/Units 23:02 00:50 03:24 RBC (4.30-5.90) m/uL Hgb (13.0-17.5) gm/dL Hct (39.0-53.0) % Sodium 120 L 120 L (137-145) mmol/L Potassium 7.5 H* 6.0 H (3.5-5.1) mmol/L Chloride 90 L 92 L (98-107) mmol/L BUN 26 H 25 H (9-20) mg/dL Creatinine 2.02 H 1.67 H (0.66-1.25) mg/dL Glucose 109 H 39 L* (74-99) mg/dL POC Glucose (mg/dL) 121 H (75-99) mg/dL Osmolality (280-301) mosm/kg Calcium 10.9 H (8.4-10.2) mg/dL AST 69 H (17-59) U/L Urine Blood (Negative) Urine Bacteria (None) /hpf Urine Mucus (None) /hpf 01/09/21 Range/Units 06:49 RBC (4.30-5.90) m/uL Hgb (13.0-17.5) gm/dL Hct (39.0-53.0) % Sodium (137-145) mmol/L Potassium (3.5-5.1) mmol/L Chloride (98-107) mmol/L BUN (9-20) mg/dL Creatinine (0.66-1.25) mg/dL Glucose 104 H (74-99) mg/dL POC Glucose (mg/dL) (75-99) mg/dL Osmolality (280-301) mosm/kg Calcium (8.4-10.2) mg/dL AST (17-59) U/L Urine Blood (Negative) Urine Bacteria (None) /hpf Urine Mucus (None) /hpf Thrombosis Risk Factor Assmnt - Choose All That Apply Each Factor Represents 1 point: Obesity (BMI >25), Swollen legs (current) Thrombosis Risk Factor Assessment Total Risk Factor Score: 2 Thrombosis Risk Factor Assessment Level: Low Risk
[2021-01-09] MEDS ORDERED: MEMANTINE 5 MG TAB PO ONE (10:30)
[2021-01-09 10:57] LABS: Potassium 6.2 mmol/L (3.5-5.1)
--- NOTE | 2021-01-09 11:10 | US ---
EXAMINATION TYPE: US venous doppler duplex LE DATE OF EXAM: 01/09/2021 10:56 AM COMPARISON: NONE CLINICAL HISTORY: Pain and edema. Edema. Exam limitations due to body habitus. SIDE PERFORMED: Bilateral TECHNIQUE: The lower extremity deep venous system is examined utilizing real time linear array sonog swapnil with graded compression, doppler sonography and color-flow sonography. VESSELS IMAGED: Common Femoral Vein Deep Femoral Vein Greater Saphenous Vein * Femoral Vein Popliteal Vein Small Saphenous Vein * Proximal Calf Veins (* superficial vessels) Right Leg: Negative for DVT Left Leg: Negative for DVT IMPRESSION: Grayscale, color doppler, spectral doppler imaging performed of the deep veins of the lo wer extremities. There is normal flow, compressibility, vascular waveforms. No evidence of lower ex tremity DVT.
--- NOTE | 2021-01-09 14:24 | P.NPCON ---
History of Present Illness - Reason for Consult Consult date: 01/09/21 acute renal failure, hyperkalemia - Chief Complaint Weakness - History of Present Illness 70-year-old gentleman coming to the hospital with generalized weakness. He has history of peripheral neuropathy, alcohol abuse. Baseline creatinine 1.0 MG per DL. On admission serum creatinine 2.2 with a potassium of 7.5. He was treated medically serum potassium improved to 6.0. He denies any nausea vomiting diarrhea. Denies any NSAID use or recent contrast studies. He denies incomplete emptying of the bladder. He does take potassium supplements and Cozaar at home. He does have lower extremity edema. On admission blood pressures were low normal was given IV fluids. Currently making good urine. Serum creatinine improved to 1.3 MG per DL. Review of Systems Constitutional: Reports as per HPI Past Medical History Past Medical History: Dementia, Hyperlipidemia, Hypertension, Osteoarthritis (OA) Additional Past Medical History / Comment(s): ETOH abuse, chronic back pain, BLE neuropathy, lymphedema, multiple falls History of Any Multi-Drug Resistant Organisms: None Reported Past Surgical History: Back Surgery, Orthopedic Surgery, Tonsillectomy Additional Past Surgical History / Comment(s): 3 back laminectomies, hand surgery s/p trauma to reattatch tendons Past Anesthesia/Blood Transfusion Reactions: No Reported Reaction Smoking Status: Never smoker - Past Family History Father Family Medical History: Hypertension Mother Family Medical History: Cancer Additional Family Medical History / Comment(s): Lung cancer Brother(s) Family Medical History: No Reported History Sister(s) Family Medical History: Hypertension Daughter(s) Family Medical History: No Reported History Medications and Allergies Home Medications Medication Instructions Recorded Confirmed Type Multivit-Min/FA/Lycopen/Lutein 1 tab PO DAILY 11/07/19 01/08/21 History [Centrum Silver Men Tablet] amLODIPine [Norvasc] 5 mg PO DAILY tab 11/11/19 01/08/21 Rx Cyanocobalamin (Vitamin B-12) 1,000 mcg PO DAILY 12/02/19 01/08/21 History [Vitamin B-12] DULoxetine HCL [Cymbalta] 30 mg PO DAILY 12/02/19 01/08/21 History Furosemide [Lasix] 40 mg PO DAILY 12/02/19 01/08/21 History Losartan [Cozaar] 50 mg PO DAILY 12/02/19 01/08/21 History Potassium Chloride [Klor-Con 20] 20 meq PO DAILY 12/02/19 01/08/21 History Folic Acid 0.8 mg PO DAILY 03/06/20 01/08/21 History Pregabalin [Lyrica] 150 mg PO BID 3 Days #6 cap 03/09/20 01/08/21 Rx Cyclobenzaprine [Flexeril] 5 mg PO HS PRN 01/08/21 01/08/21 History Memantine HCl [Namenda] 5 mg PO DAILY 01/08/21 01/08/21 History Allergies Allergy/AdvReac Type Severity Reaction Status Date / Time No Known Allergies Allergy Verified 01/08/21 21:30 Physical Exam Vitals: Vital Signs Temp Pulse Pulse Resp BP BP Pulse Ox 01/09/21 04:20 98.1 F 86 20 118/54 99 01/09/21 03:33 97.7 F 80 18 124/54 99 01/09/21 00:00 84 18 136/81 99 01/08/21 23:00 80 18 99 01/08/21 22:42 20 01/08/21 22:00 88 20 99 01/08/21 21:24 99.0 F 85 20 102/89 99 Intake and Output 01/08/21 01/09/21 01/09/21 22:59 06:59 14:59 Intake Total 490 Balance 490 Intake: Intake, IV Titration 250 Amount Sodium Chloride 0.9% 1, 250 000 ml @ 125 mls/hr IV . Q8H [facility] Rx#:[id number] Oral 240 Other: Voiding Method Urinal # Voids 1 Weight 151.953 kg 151.953 kg No acute distress S1-S2 heard Decreased breath sounds Abdomen distended Edema with lower extremity ulcers Results - Lab Results Most recent lab results Calcium 9.0 mg/dL (8.4-10.2) 01/09/21 06:49 Magnesium 2.3 mg/dL (1.6-2.3) 01/09/21 06:49 01/09/21 06:49 01/09/21 06:49 Assessment and Plan Assessment: #1 acute kidney injury suspect hemodynamic ATN. Baseline creatinine 1.0 MG per DL #2 hyperkalemia secondary to acute kidney injury/acidosis/potassium supple ments/Cozaar. #3 lower extremity edema with ulcers #4 metabolic acidosis secondary to acute kidney injury #5 low normal blood pressures. #6 hyponatremia suspect hypovolemic. Rule out adrenal insufficiency with concomitant hyperkalemia Plan: #1 status post medical management for hyperkalemia. Agree with stopping IV fluids. #2 add Lasix 40 mg IV twice a day #3 bladder scan to rule out urinary retention #4 avoid nephrotoxic agents and hypotensive episodes #5 low potassium diet
[2021-01-09] MEDS ORDERED: FUROSEMIDE 10 MG/ML 10 ML VIAL IV SCH ×2 (14:30→15:00)
[2021-01-09] MEDS: FUROSEMIDE 10 MG/ML 4 ML VIAL IV SCH ×2 (16:09→20:47)
--- NOTE | 2021-01-09 16:34 | US ---
EXAMINATION TYPE: US renals and bladder DATE OF EXAM: 01/09/2021 COMPARISON: US 2016 CLINICAL HISTORY: obstruction. EXAM MEASUREMENTS: Right Kidney: 10.9 X 5.8 X 5.6 cm Left Kidney: 11.8 X 5.6 X 5.4 cm Left renal imaged first due to patient position. Left renal not well visualized due to bowel gas and patient body habitus. Right Kidney: No hydronephrosis or masses seen Left Kidney: No hydronephrosis or masses seen Bladder: wnl Bilateral Jets seen: No IMPRESSION: There is no evidence of renal mass or obstruction. There is bilateral renal sinus lipomatosis. There is mild bilateral renal cortical thinning. This appears increased compared to old exam.
[2021-01-10] MEDS: SODIUM CHLORIDE 0.9% 1,000 ML IV SCH ×2 (06:22→15:07)
[2021-01-10 06:35] LABS: Basophils # (A) 0.1 k/uL (0-0.2); Basophils % (A) 1 %; Eosinophils # (A) 0.2 k/uL (0-0.7); Eosinophils % (A) 3 %; HGB 11.3 gm/dL (13.0-17.5); Lymphocytes # (A) 1.1 k/uL (1.0-4.8); Lymphocytes % (A) 14 %; MCH 36.2 pg (25.0-35.0); MCHC 36.5 g/dL (31.0-37.0); MCV 99.2 fL (80.0-100.0); Monocytes # (A) 0.8 k/uL (0-1.0); Monocytes % (A) 10 %; Neutrophils # (A) 5.4 k/uL (1.3-7.7); Neutrophils % (A) 70 %; Platelet Count 170 k/uL (150-450); RBC 3.13 m/uL (4.30-5.90); RDW 12.1 % (11.5-15.5); WBC 7.7 k/uL (3.8-10.6)
[2021-01-10 06:47] LABS: ALT 26 U/L (4-49); AST 43 U/L (17-59); African American GFR (CKD) >90 (>60 ml/min/1.73 sqM); Albumin 3.5 g/dL (3.5-5.0); Albumin/Globulin Ratio 1.3; Alkaline Phosphatase 97 U/L (38-126); Anion Gap 6 mmol/L; Blood Urea Nitrogen 22 mg/dL (9-20); Calcium 9.1 mg/dL (8.4-10.2); Carbon Dioxide 30 mmol/L (22-30); Chloride 91 mmol/L (98-107); Globulin 2.7 g/dL; Glucose 113 mg/dL (74-99); Non-African American GFR(CKD) >90 (>60 ml/min/1.73 sqM); Sodium 127 mmol/L (137-145); Total Bilirubin 0.7 mg/dL (0.2-1.3); Total Protein 6.2 g/dL (6.3-8.2); Uric Acid 7.7 mg/dL (3.5-8.5)
[2021-01-10 06:52] LABS: Potassium 4.2 mmol/L (3.5-5.1)
[2021-01-10] MEDS: HEPARIN SODIUM,PORCINE/PF 5,000 UNIT/0.5 ML SYRINGE SQ SCH ×3 (08:40→23:55)
[2021-01-10] MEDS: FUROSEMIDE 10 MG/ML 4 ML VIAL IV SCH ×2 (08:40→21:43)
[2021-01-10] MEDS: CYANOCOBALAMIN 500 MCG TAB PO SCH (08:41)
[2021-01-10] MEDS: MULTIVITAMINS, THERA 1 EACH TAB PO SCH (08:41)
[2021-01-10] MEDS: PREGABALIN 75 MG CAP PO SCH ×2 (08:41→21:41)
[2021-01-10] MEDS: FAMOTIDINE 20 MG TAB PO SCH (08:41)
[2021-01-10] MEDS: FOLIC ACID 1 MG TAB PO SCH (08:41)
[2021-01-10] MEDS: DULoxetine HCL 30 MG CAPSULE.DR PO SCH (08:41)
[2021-01-10] MEDS: amLODIPine 5 MG TAB PO SCH (08:41)
[2021-01-10] MEDS ORDERED: MEMANTINE 10 MG TAB PO SCH (09:00)
--- NOTE | 2021-01-10 09:53 | P.PN ---
Subjective Progress Note Date: 01/10/21 HISTORY OF PRESENT ILLNESS: This is a 70-year-old male one of my patient with a previous medical history significant for hypertension and hypertensive cardiovascular disease, hyperlipidemia, obesity with obstructive sleep apnea, history of chronic alcohol use and dependence with the peripheral neuropathy, significant spondylosis of the lumbar spine with spinal stenosis and significant chronic low back pain, patient presented to the emergency department at [facility] yesterday after he had called 911 because he was not feeling well, he didn't know what to do, patient denies any chest pain at that time, he has no shortness breath, he had no abdominal pain, he had no previous episode of vomiting or diarrhea, patient stated that he has been drinking alcohol about 3 beer over the last 3 days, unfortunately the patient has been having a chronic issues with alcohol, with significant issue with memory loss and chronic pain syndrome, he has not been seen in the office in quite some time, patient does appear to be with very poor hygiene he has not had shower in about a week. Does appear to have a significant erythema in both lower extremities with significant venous ulcerations, patient does complain of increased pain in both lower extremities we will obtain venous Doppler of both lower extremities to rule out any DVT, we'll start the patient on IV antibiotic in the form of Kefzol 1 g IV piggyback every 8 hours, apply Silvadene cream 1% cover with Kerlix and apply Rocky wrap bilaterally, patient also was found to have a significant hyperkalemia with a potassium of 7.5 and hyponatremia with hypochloremia patient was given IV fluid, he was given D50, he was given 10 units of regular insulin he was given , he was given albuterol, repeated potassium at midnight was about 6 his potassium in the morning still pending, nephrology consultation, oncology social work consultation and physical therapy consultation as well. 01/10: Patient sitting up in bed in no apparent distress, his IV fluid was o'clock yesterday, his sodium is better today 127, his serum osmolality is 271, patient was seen in consultation by nephrology we'll continue with the current treatment plan, avoid potassium supplement, his potassium is 4.2 today, I had a long conversation with the patient and his daughter on the phone today and I told her that the patient may need to go for subacute rehabilitation however the patient wanted to go home today his daughter and I decided to give the hospital and to the oncology social work, seemed tomorrow morning as well as physical therapy he definitely need to have a structured discharge planning tomorrow morning whether he goes home with home health care or he goes to subacute rehabilitation, patient underwent venous Doppler of both lower x-rays that was negative for deep venous thrombosis, he also had ultrasound of the kidney that showed minimal thinning of the cortex that appears to be little worse from the last time no evidence of hydronephrosis, no evidence of obstruction or renal masses. REVIEW OF SYSTEMS: Constitutional: No documented fever, no chills, no night sweats. No weight change. positive for weakness weakness, fatigue or lethargy. Positive for daytime sleepiness. HEENT: No headache. No blurred vision or double vision, no loss of vision. No loss of Hearing, no ringing in the ears, no dizziness. No nasal drainage or congestion. No epistaxis. No sore throat. Lungs: No shortness of breath, no cough, no sputum production. No wheezing. Reports dyspnea with activity. Cardiovascular: No chest pain, positive for lower extremity edema. No palpitations. No paroxysmal nocturnal dyspnea. No orthopnea. No lightheadedness or dizziness. No syncopal episodes.Positive for nocturia. Abdominal: No abdominal pain. No nausea, vomiting. No diarrhea. No constipation. No bloody or tarry stools . No loss of appetite. Genitourinary: No dysuria, increased frequency, urgency. No urinary retention. Musculoskeletal: positive for neck pain, positive for chronic low back pain, positive for significant pain in both lower extremities with significant neuropathy, positive for gait dysfunction. Integumentary: Positive for venous ulcerations of both lower extremities , no lesions. No rash or pruritus. No unusual bruising. Does appear to have seborrheic dermatitis Neurologic: No aphasia. No facial droop. Memory loss. No head injury. No headache, positive for paresthesia in both lower x-rays. Psychiatric: Patient does appear to be somewhat depressed, appears to be a bit anxious, no suicidal thoughts or ideation. Endocrine: No abnormal blood sugars, increased weight. PHYSICAL EXAMINATION: General: this is a 70-year-old male who is laying down in bed does not appear to be in acute distress. HEENT: Head is atraumatic, normocephalic, pupils were equal round reactive to light and recommendation, extraocular muscle movement were intact, sclera nonicteric, conjunctivae were pale, mucous membranes of the mouth are somewhat dry. Neck: Supple, no JVP, normal carotid upstroke bilaterally, no lymphadenopathy. Chest: Decreased breath sounds at the bases, few rhonchi, no extremity wheezes, no chest wall tenderness, no intercostal retractions. Heart: First heart sound is normal, second heart sound is normal there is systolic ejection murmur 2/6 located in the left sternal border. Abdomen: Soft, nontender, nondistended, positive bowel sounds. Extremities: There is significant venous stasis of both lower extremity is with increased erythema and venous ulceration with significant tenderness to palpation, with a chronic skin changes dorsalis pedis +1 bilaterally poor foot hygiene. Neurologic examination: Patient is awake alert and oriented X 3, cranial nerves II-12 appear grossly intact, muscle power were 4 out of 5 in upper extremities and 3out of 5 in bilateral lower extremities, deep tendon reflexes were depressed bilaterally. ASSESSMENT AND PLAN: 1. acute hyperkalemia due to acute kidney injury and poor oral intake of fluid. Status post D 50, 10 units of insulin, albuterol nebulizer, and Kayexalate, calcium gluconate, repeated potassium still pending place the patient on t elemetry, nephrology consultation, monitor the patient very closely. 2. Hyponatremia secondary to hypovolemia in view of hyperkalemia rule out adrenal insufficiency his cortisol level is appropriate. I believe the patient is currently euvolemic continue Hep-Lock his IV at this time, monitor the p atient sodium on a daily basis. 3. Bilateral lower extremity venous stasis with venous ulceration and superimposed cellulitis.continue patient on Ancef 1 g IV piggyback every 8 hours, apply Silvadene cream 1% to both lower extremities wrapped with Kerlix wrap and apply Rocky wraps daily . 4. Hypertension and hypertensive cardiovascular disease. Discontinue losartan, resume amlodipine 5 mg orally once every day. 5. Hyperlipidemia.Stable at this time. 6. Vascular dementia. Increase Namenda to 10 mg orally once every day. 7. Chronic alcohol use and dependence. Patient was advised to be abstinent from alcohol, apply CIWA protocol. 8. 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 Continue Bird In [place] 10/325 mg 1 tablet every 6 hours as needed. 9. Bilateral lower extremity neuropathy continue patient on Lyrica 150 mg orally twice every day. 10. Depression. Continue patient on Cymbalta 30 mg orally once every day. 11. DVT prophylaxis. Continue heparin 5000 units subcutaneously every 8 hours. 12. GI prophylaxis. Continue Pepcid 20 mg orally once every day. 13. jordan worker consultation as well as physical therapy ventilation for pos sible subacute rehab rotation or home with home health care. Objective - Vital Signs Vital signs: Vital Signs Temp 98.3 F 01/10/21 05:00 Pulse 72 01/10/21 05:00 Resp 20 01/10/21 05:00 BP 141/57 01/10/21 05:00 Pulse Ox 97 01/10/21 05:00 Intake & Output 01/09/21 01/10/21 01/10/21 18:59 06:59 18:59 Intake Total 50 1000 Output Total 440 500 Balance -390 500 Intake: Intake, IV Titration 50 Amount ceFAZolin 1,000 mg In 50 Sodium Chloride 0.9% 50 ml @ 100 mls/hr IVPB Q8HR [facility] Rx#:[id number] Oral 1000 Output: Urine 500 Post Void Residual 440 Other: Voiding Method Urinal Urinal Urinal # Voids 5 4 # Bowel Movements 2 1 - Labs CBC & Chem 7: 01/10/21 05:52 01/10/21 05:52 Labs: Abnormal Lab Results - Last 24 Hours (Table) 01/08/21 01/09/21 01/10/21 Range/Units 21:34 06:49 05:52 RBC (4.30-5.90) m/uL Hgb (13.0-17.5) gm/dL Hct (39.0-53.0) % MCH (25.0-35.0) pg Sodium 124 L 127 L (137-145) mmol/L Potassium 6.2 H* (3.5-5.1) mmol/L Chloride 96 L 91 L (98-107) mmol/L BUN 25 H 22 H (9-20) mg/dL Creatinine 1.37 H (0.66-1.25) mg/dL Glucose 113 H (74-99) mg/dL Osmolality 270 L (280-301) mosm/kg Total Protein 5.9 L 6.2 L (6.3-8.2) g/dL Albumin 3.3 L (3.5-5.0) g/dL Urine Opiates Screen Detected H (NotDetected) 01/10/21 Range/Units 05:52 RBC 3.13 L (4.30-5.90) m/uL Hgb 11.3 L (13.0-17.5) gm/dL Hct 31.0 L (39.0-53.0) % MCH 36.2 H (25.0-35.0) pg Sodium (137-145) mmol/L Potassium (3.5-5.1) mmol/L Chloride (98-107) mmol/L BUN (9-20) mg/dL Creatinine (0.66-1.25) mg/dL Glucose (74-99) mg/dL Osmolality (280-301) mosm/kg Total Protein (6.3-8.2) g/dL Albumin (3.5-5.0) g/dL Urine Opiates Screen (NotDetected)
--- NOTE | 2021-01-10 15:12 | P.PN ---
Subjective Progress Note Date: 01/10/21 Follow-up for acute kidney injury and hyperkalemia. Objective - Vital Signs Vital signs: Vital Signs Temp 98.3 F 01/10/21 05:00 Pulse 72 01/10/21 05:00 Resp 20 01/10/21 05:00 BP 141/57 01/10/21 05:00 Pulse Ox 97 01/10/21 05:00 Intake & Output 01/09/21 01/10/21 01/10/21 18:59 06:59 18:59 Intake Total 50 1000 650 Output Total 145 729 [id number] Balance -390 500 -400 Intake: Intake, IV Titration 50 650 Amount Sodium Chloride 0.9% 1, 600 000 ml @ 75 mls/hr IV . [id number] [facility] Rx#:[id number] ceFAZolin 1,000 mg In 50 50 Sodium Chloride 0.9% 50 ml @ 100 mls/hr IVPB Q8HR [facility] Rx#:[id number] Oral 1000 Output: Urine 500 1050 Post Void Residual 440 Other: Voiding Method Urinal Urinal Urinal # Voids 5 4 # Bowel Movements 2 1 - Exam No acute distress Lying comfortable in the bed S1-S2 heard Edema - Labs CBC & Chem 7: 01/10/21 05:52 01/10/21 05:52 Labs: Abnormal Lab Results - Last 24 Hours (Table) 01/10/21 01/10/21 Range/Units 05:52 05:52 RBC 3.13 L (4.30-5.90) m/uL Hgb 11.3 L (13.0-17.5) gm/dL Hct 31.0 L (39.0-53.0) % MCH 36.2 H (25.0-35.0) pg Sodium 127 L (137-145) mmol/L Chloride 91 L (98-107) mmol/L BUN 22 H (9-20) mg/dL Glucose 113 H (74-99) mg/dL Osmolality 270 L (280-301) mosm/kg Total Protein 6.2 L (6.3-8.2) g/dL Assessment and Plan Assessment: #1 acute kidney injury suspect hemodynamic ATN. Baseline creatinine 1.0 MG per DL #2 hyperkalemia secondary to acute kidney injury/acidosis/potassium supplements/Cozaar. #3 lower extremity edema with ulcers #4 metabolic acidosis secondary to acute kidney injury #5 low normal blood pressures. #6 hyponatremia suspect hypervolemic. Rule out adrenal insufficiency with concomitant hyperkalemia Plan: #1 status post medical management for hyperkalemia. Resolved. #2 continue with Lasix 40 mg IV twice a day #3 avoid nephrotoxic agents and hypotensive episodes #4 low potassium diet
[2021-01-10 19:16] VITALS: RESP 14
[2021-01-11 04:28] VITALS: BP 170/80; PULSE 80; TEMP 98.4
--- NOTE | 2021-01-11 08:23 | P.DS ---
Providers Date of admission: 01/08/21 23:59 Expected date of discharge: 01/11/21 Attending physician: Johnny Lane Consults: 01/09/21 08:37 Consult Physician Urgent Consulting Provider: Giovana Thomas Consult Reason/Comments: HYperkalemia Do you want consulting provider notified?: Yes Primary care physician: Johnny Lane Hospital Course: HISTORY OF PRESENT ILLNESS: This is a 70-year-old male one of my patient with a previous medical history significant for hypertension and hypertensive cardiovascular disease, hyperlipidemia, obesity with obstructive sleep apnea, history of chronic alcohol use and dependence with the peripheral neuropathy, significant spondylosis of the lumbar spine with spinal stenosis and significant chronic low back pain, patient presented to the emergency department at [facility] yesterday after he had called 911 because he was not feeling well, he didn't know what to do, patient denies any chest pain at that time, he has no shortness breath, he had no abdominal pain, he had no previous episode of vomiting or diarrhea, patient stated that he has been drinking alcohol about 3 beer over the last 3 days, unfortunately the patient has been having a chronic issues with alcohol, with significant issue with memory loss and chronic pain syndrome, he has not been seen in the office in quite some time, patient does appear to be with very poor hygiene he has not had shower in about a week. Does appear to have a significant erythema in both lower extremities with significant venous ulcerations, patient does complain of increased pain in both lower extremities we will obtain venous Doppler of both lower extremities to rule out any DVT, we'll start the patient on IV antibiotic in the form of Kefzol 1 g IV piggyback every 8 hours, apply Silvadene cream 1% cover with Kerlix and apply Rocky wrap bilaterally, patient also was found to have a significant hyperkalemia with a potassium of 7.5 and hyponatremia with hypochloremia patient was given IV fluid, he was given D50, he was given 10 units of regular insulin he was given , he was given albuterol, repeated potassium at midnight was about 6 his potassium in the morning still pending, nephrology consultation, high school social studies tutor consultation and physical therapy consultation as well. 01/10: Patient sitting up in bed in no apparent distress, his IV fluid was o'clock yesterday, his sodium is better today 127, his serum osmolality is 271, patient was seen in consultation by nephrology we'll continue with the current treatment plan, avoid potassium supplement, his potassium is 4.2 today, I had a long conversation with the patient and his daughter on the phone today and I told her that the patient may need to go for subacute rehabilitation however the patient wanted to go home today his daughter and I decided to give the hospital and to the high school social studies tutor, seemed tomorrow morning as well as physical therapy he definitely need to have a structured discharge planning tomorrow morning whether he goes home with home health care or he goes to subacute rehabilitation, patient underwent venous Doppler of both lower x-rays that was negative for deep venous thrombosis, he also had ultrasound of the kidney that showed minimal thinning of the cortex that appears to be little worse from the last time no evidence of hydronephrosis, no evidence of obstruction or renal masses. 01/11: Patient left hospital AMA. ASSESSMENT AND PLAN: 1. acute hyperkalemia due to acute kidney injury and poor oral intake of fluid. 2. Hyponatremia secondary to hypovolemia in view of hyperkalemia rule out adrenal insufficiency his cortisol level is appropriate. 3. Bilateral lower extremity venous stasis with venous ulceration and superimposed cellulitis. 4. Hypertension and hypertensive cardiovascular disease. 5. Hyperlipidemia. 6. Vascular dementia. 7. Chronic alcohol use and dependence. 8. 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 9. Bilateral lower extremity neuropathy. 10. Recurrent depression. Impression and plan of care have been directed as dictated by the signing physician. Suzan Willingham nurse practitioner acting as scribe for signing physician. Patient Condition at Discharge: Undetermined Plan - Discharge Summary Discharge Rx Participant: No New Discharge Prescriptions: No Action Multivit-Min/FA/Lycopen/Lutein [Centrum Silver Men Tablet] 1 tab PO DAILY amLODIPine [Norvasc] 5 mg PO DAILY tab Potassium Chloride [Klor-Con 20] 20 meq PO DAILY Losartan [Cozaar] 50 mg PO DAILY Furosemide [Lasix] 40 mg PO DAILY DULoxetine HCL [Cymbalta] 30 mg PO DAILY Cyanocobalamin (Vitamin B-12) [Vitamin B-12] 1,000 mcg PO DAILY Folic Acid 0.8 mg PO DAILY Pregabalin [Lyrica] 150 mg PO BID 3 Days #6 cap Memantine HCl [Namenda] 5 mg PO DAILY Cyclobenzaprine [Flexeril] 5 mg PO HS PRN PRN Reason: Muscle Spasm Discharge Medication List Multivit-Min/FA/Lycopen/Lutein [Centrum Silver Men Tablet] 1 tab PO DAILY 11/07/19 [History] amLODIPine [Norvasc] 5 mg PO DAILY tab 11/11/19 [Rx] Cyanocobalamin (Vitamin B-12) [Vitamin B-12] 1,000 mcg PO DAILY 12/02/19 [History] DULoxetine HCL [Cymbalta] 30 mg PO DAILY 12/02/19 [History] Furosemide [Lasix] 40 mg PO DAILY 12/02/19 [History] Losartan [Cozaar] 50 mg PO DAILY 12/02/19 [History] Potassium Chloride [Klor-Con 20] 20 meq PO DAILY 12/02/19 [History] Folic Acid 0.8 mg PO DAILY 03/06/20 [History] Pregabalin [Lyrica] 150 mg PO BID 3 Days #6 cap 03/09/20 [Rx] Cyclobenzaprine [Flexeril] 5 mg PO HS PRN 01/08/21 [History] Memantine HCl [Namenda] 5 mg PO DAILY 01/08/21 [History] Follow up Appointment(s)/Referral(s): Johnny Lane MD [Primary Care Provider] - 1-2 days Discharge Disposition: Left Against Medical Advice
--- NOTE | 2021-01-11 14:55 | PN ---
PROGRESS NOTE The patient is seen for followup for acute kidney injury and hyperkalemia. Patient's renal function has improved. Serum creatinine was down to 0.84 yesterday. His potassium has improved as well and is down to 4.2. PHYSICAL EXAMINATION: Patient is comfortable. Blood pressure was elevated 170/80, heart rate 80 per minute. He is afebrile. EXAMINATION OF THE HEART: S1, S2. EXAMINATION OF LUNGS: Decreased breath sounds at bases. Abdomen is soft, nontender. Examination of lower extremities shows edema 1+ bilaterally. LABS: Labs show sodium 127, potassium 4.2, BUN 22, creatinine 0.84. ASSESSMENT: 1. Acute kidney injury, acute tubular necrosis, currently improved. 2. Hyperkalemia associated with acute kidney injury, acidosis, potassium supplementation, angiotensin receptor blockers, also improved. 3. Hyponatremia appears to be hypervolemic, currently improving with diuresis. PLAN: Continue with diuresis. Monitor labs as outpatient if patient is discharged. May resume Cozaar if blood pressure is elevated with close monitoring of labs. MMODL / IJN: [id number] /
== END 2021-01-11 06:09 | disposition left against medical advice (07) | DRG 683 ==
LOC: EC 21:19 → 5NMEDONC 23:59
PROVIDERS: ADMIT Internal Medicine; ATTEND Internal Medicine
DX: N17.0 Acute kidney failure with tubular necrosis (principal); E87.1 Hypo-osmolality and hyponatremia; F33.9 Major depressive disorder, recurrent, unspecified; L97.819 Non-pressure chronic ulcer of other part of right lower leg with unspecified severity; L97.829 Non-pressure chronic ulcer of other part of left lower leg with unspecified severity; Z68.42 Body mass index [BMI] 45.0-49.9, adult; I83.218 Varicose veins of right lower extremity with both ulcer of other part of lower extremity and inflammation; I83.228 Varicose veins of left lower extremity with both ulcer of other part of lower extremity and inflammation; L03.116 Cellulitis of left lower limb; L03.115 Cellulitis of right lower limb; E87.2 Acidosis; E87.8 Other disorders of electrolyte and fluid balance, not elsewhere classified; F01.50 Vascular dementia, unspecified severity, without behavioral disturbance, psychotic disturbance, mood disturbance, and anxiety; I11.9 Hypertensive heart disease without heart failure; E66.01 Morbid (severe) obesity due to excess calories; F10.20 Alcohol dependence, uncomplicated; Z20.822 Contact with and (suspected) exposure to COVID-19; E86.0 Dehydration; E87.5 Hyperkalemia; E86.1 Hypovolemia; M19.90 Unspecified osteoarthritis, unspecified site; G89.4 Chronic pain syndrome; M47.816 Spondylosis without myelopathy or radiculopathy, lumbar region; M48.061 Spinal stenosis, lumbar region without neurogenic claudication; M47.812 Spondylosis without myelopathy or radiculopathy, cervical region; E03.9 Hypothyroidism, unspecified; E78.5 Hyperlipidemia, unspecified; G47.33 Obstructive sleep apnea (adult) (pediatric); G62.9 Polyneuropathy, unspecified; N40.0 Benign prostatic hyperplasia without lower urinary tract symptoms; Y90.0 Blood alcohol level of less than 20 mg/100 ml; G25.81 Restless legs syndrome; R29.6 Repeated falls; I89.0 Lymphedema, not elsewhere classified; Z79.899 Other long term (current) drug therapy; Z87.39 Personal history of other diseases of the musculoskeletal system and connective tissue; Z98.890 Other specified postprocedural states; Z90.89 Acquired absence of other organs; Z82.49 Family history of ischemic heart disease and other diseases of the circulatory system; Z80.1 Family history of malignant neoplasm of trachea, bronchus and lung; Z81.2 Family history of tobacco abuse and dependence; Z83.49 Family history of other endocrine, nutritional and metabolic diseases
CPT/HCPCS: 36415; 71046; 76770; 80048; 80053; 80306; 80320; 81001; 82024; 82533; 82570; 83605; 83735; 83930; 83935; 84133; 84300; 84443; 84484; 84550; 85025; 85610; 85730; 87636; 93005; 93970; 96374; 96375; 99285

== ENCOUNTER 2021-05-01 18:15 | Inpatient (IN) | payer MEDICARE ==
--- NOTE | 2021-05-01 19:13 | XR ---
EXAMINATION TYPE: XR chest 2V DATE OF EXAM: 05/01/2021 COMPARISON: 03/06/2020. HISTORY: Cough. TECHNIQUE: Frontal and lateral views of the chest are obtained. FINDINGS: There is no focal air space opacity, pleural effusion, or pneumothorax seen. The cardiac silhouette size is within normal limits. The osseous structures are intact. IMPRESSION: No acute cardiopulmonary process.
[2021-05-01] MEDS ORDERED: ASPIRIN 81 MG PO STA (19:32)
[2021-05-01 20:04] LABS: Basophils # (A) 0.1 k/uL (0-0.2); Basophils % (A) 1 %; Eosinophils # (A) 0.3 k/uL (0-0.7); Eosinophils % (A) 3 %; Lymphocytes # (A) 1.1 k/uL (1.0-4.8); Lymphocytes % (A) 11 %; MCH 34.6 pg (25.0-35.0); MCHC 34.9 g/dL (31.0-37.0); MCV 99.2 fL (80.0-100.0); Mean Platelet Volume 7.4; Monocytes # (A) 0.7 k/uL (0-1.0); Monocytes % (A) 6 %; Neutrophils % (A) 78 %; Platelet Count 207 k/uL (150-450); RBC 4.33 m/uL (4.30-5.90); RDW 13.4 % (11.5-15.5); WBC 10.3 k/uL (3.8-10.6)
[2021-05-01 20:18] LABS: ALT 41 U/L (4-49); AST 74 U/L (17-59); African American GFR (CKD) >90 (>60 ml/min/1.73 sqM); Albumin 3.9 g/dL (3.5-5.0); Alkaline Phosphatase 130 U/L (38-126); Anion Gap 10 mmol/L; Blood Urea Nitrogen <2 mg/dL (9-20); Carbon Dioxide 22 mmol/L (22-30); Chloride 87 mmol/L (98-107); Glucose 121 mg/dL (74-99); Non-African American GFR(CKD) >90 (>60 ml/min/1.73 sqM); Potassium 4.3 mmol/L (3.5-5.1); Total Bilirubin 1.5 mg/dL (0.2-1.3); Total Protein 6.9 g/dL (6.3-8.2)
[2021-05-01 20:24] LABS: INR 1.1 (<1.2)
[2021-05-01 20:25] LABS: Partial Thromboplastin Time 24.8 sec (22.0-30.0); Prothrombin Time 11.3 sec (9.0-12.0)
[2021-05-01 20:30] LABS: Sodium 119 mmol/L (137-145)
--- NOTE | 2021-05-01 20:41 | US ---
EXAMINATION TYPE: US venous doppler duplex LE BI DATE OF EXAM: 05/01/2021 7:33 PM COMPARISON: US CLINICAL HISTORY: LE edema, rule out dvt. right worse than left. Swelling bilat legs SIDE PERFORMED: Bilateral TECHNIQUE: The lower extremity deep venous system is examined utilizing real time linear array sonog swapnil with graded compression, doppler sonography and color-flow sonography. VESSELS IMAGED: Common Femoral Vein Deep Femoral Vein Greater Saphenous Vein * Femoral Vein Popliteal Vein Small Saphenous Vein * Proximal Calf Veins (* superficial vessels) Right Leg: Negative for DVT Left Leg: Negative for DVT IMPRESSION: No evidence of bilateral lower extremity DVT.
[2021-05-01] MEDS: SODIUM CHLORIDE 0.9% 1,000 ML IV SCH (21:41)
[2021-05-01] MEDS ORDERED: KETOROLAC 15 MG/ML 1 ML VIAL IVP STA (21:59)
--- NOTE | 2021-05-01 22:09 | ED ---
General Adult HPI - General Chief complaint: Extremity Problem,Nontraumatic Stated complaint: leg swelling, pain Time Seen by Provider: 05/01/21 19:10 Source: patient, RN notes reviewed, old records reviewed Mode of arrival: wheelchair Limitations: no limitations - History of Present Illness Initial comments: Patient is a 70-year-old male with past medical history remarkable for dementia, hypertension, hyperlipidemia, prior hypo nature anemia was noncompliant with medications presents emergency department for any of lower extremity edema. This is chronic he states is been more irritating lately. He states this is been ongoing for multiple months. His has bilateral equal edema. Has been going on for some months. It is painful. He denies any orthopnea, paroxysmal nocturnal dyspnea, worsening exertional dyspnea. He denies any chest pain, a bdominal pain, nausea, vomiting. Denies any headaches. Patient lives by himself, and he and family are concerned regarding the edema. He has not been with any of his medications since his last stay here. His no other acute complaints at this time. He is concerned about his legs. He denies blood clots in himself or family members. States his sensation is intact in both legs. - Related Data Home Medications Medication Instructions Recorded Confirmed No Known Home Medications 05/01/21 05/01/21 Allergies Allergy/AdvReac Type Severity Reaction Status Date / Time No Known Allergies Allergy Verified 05/01/21 20:33 Review of Systems ROS Statement: Those systems with pertinent positive or pertinent negative responses have been documented in the HPI. Review of Systems: CONST: Denies fever EYES: Denies blurry vision ENT: Denies nasal congestion C/V: Denies Chest pain RESP: Denies shortness of breath GI: Denies abdominal pain : Denies dysuria SKIN: Denies rash. MSK: Endorses lower extremity edema. NEURO: Denies headache ROS Other: All systems not noted in ROS Statement are negative. Past Medical History Past Medical History: Dementia, Hyperlipidemia, Hypertension, Osteoarthritis ( OA) Additional Past Medical History / Comment(s): ETOH abuse, chronic back pain, BLE neuropathy, lymphedema, multiple falls History of Any Multi-Drug Resistant Organisms: None Reported Past Surgical History: Back Surgery, Orthopedic Surgery, Tonsillectomy Additional Past Surgical History / Comment(s): 3 back laminectomies, hand surgery s/p trauma to reattatch tendons Past Anesthesia/Blood Transfusion Reactions: No Reported Reaction Past Psychological History: No Psychological Hx Reported Smoking Status: Never smoker Past Alcohol Use History: Daily Past Drug Use History: None Reported - Past Family History Father Family Medical History: Hypertension (Father at age 94 from the old age had a history of hypertension.) Mother Family Medical History: Cancer (Mother at age of 84 from lung cancer) Additional Family Medical History / Comment(s): Lung cancer Brother(s) Family Medical History: No Reported History (Patient has 2 brothers one is 86-year-old male one 79-year-old no major medical problems.) Sister(s) Family Medical History: Hypertension (Patient has one sister 67-year-old with history of hypertension.) Daughter(s) Family Medical History: No Reported History (Patient has one daughter no major medical problems.) General Exam - General Exam Comments Initial Comments: General: Appears in no acute distress. Patient is obese. HEAD: Normal with no signs of head trauma. EYES: PERRLA, EOMI, conjunctiva normal, no discharge. ENT: Hearing grossly intact, normal oropharynx. RESPIRATORY: Clear breath sounds bilaterally. No wheezes, rales, or rhonchi. C/V: Regular rate and rhythm. S1 and S2 auscultated. Patient has 2+ pitting edema bilateral lower extremities at the level of the knees. This is chronic. Peripheral pulses are 2+ and intact throughout. ABD: Abd is soft, nontender, nondistended EXT: Normal range of motion, no obvious deformity SKIN: BL venous stasis dermatitis. NEURO: Alert and oriented 4. Limitations: no limitations Course Vital Signs 05/01/21 05/01/21 05/01/21 18:25 20:41 21:14 Temperature 99.1 F Pulse Rate 90 92 92 Respiratory 20 18 16 Rate Blood Pressure 144/75 152/67 141/67 O2 Sat by Pulse 96 97 96 Oximetry Medical Decision Making - Medical Decision Making Based on the patient's presentation and physical exam, I cannot rule out cardiac etiology for his lower extremity edema. I have Lower suspicion for possible DVT but due to the chronicity and pain, but we will obtain bilateral ultrasounds of the lower extremities to rule it out. We'll also obtain a cardiac work up included BNP, troponin, EKG, chest x-ray. Patient was in agreement this plan. He will be connected to continuous cardiac monitoring while is here in the department. He'll be given an aspirin. Patient's EKG shows no signs of ischemia. Chest x-ray reveals no acute cardiopulmonary process. Venous Doppler of bilateral lower extremity shows no signs or symptoms of DVT. Laboratory studies are remarkable for a negative troponin, normal BNP and patient is mildly elevated bilirubin of 1.5. AST is mildly elevated at 74. Patient has acute hyponatremia at 119 and hypochloremia of 87. Remainder of his labs are unremarkable. Reevaluation, I did discuss with the patient that due to his hyponatremia would like to admitted to the hospital. He has a history of hyponatremia upon e valuation of the EMR, however it has not been this low previously. Therefore patient will be started on normal saline drip, 100 mL an hour. Patient was in agreement this plan. I spoke with the admitting physician, Dr. Lane, who accepted the patient. Patient was therefore admitted in serious condition. - Lab Data Result diagrams: 05/01/21 19:45 05/01/21 19:45 Lab Results 05/01/21 05/01/21 05/01/21 Range/Units 19:45 19:45 19:45 WBC 10.3 (3.8-10.6) k/uL RBC 4.33 (4.30-5.90) m/uL Hgb 15.0 (13.0-17.5) gm/dL Hct 43.0 (39.0-53.0) % MCV 99.2 (80.0-100.0) fL MCH 34.6 (25.0-35.0) pg MCHC 34.9 (31.0-37.0) g/dL RDW 13.4 (11.5-15.5) % Plt Count 207 (150-450) k/uL MPV 7.4 Neutrophils % 78 % Lymphocytes % 11 % Monocytes % 6 % Eosinophils % 3 % Basophils % 1 % Neutrophils # 8.0 H (1.3-7.7) k/uL Lymphocytes # 1.1 (1.0-4.8) k/uL Monocytes # 0.7 (0-1.0) k/uL Eosinophils # 0.3 (0-0.7) k/uL Basophils # 0.1 (0-0.2) k/uL PT 11.3 (9.0-12.0) sec INR 1.1 (<1.2) APTT 24.8 (22.0-30.0) sec Sodium 119 L* (137-145) mmol/L Potassium 4.3 (3.5-5.1) mmol/L Chloride 87 L (98-107) mmol/L Carbon Dioxide 22 (22-30) mmol/L Anion Gap 10 mmol/L BUN <2 L (9-20) mg/dL Creatinine 0.58 L (0.66-1.25) mg/dL Est GFR (CKD-EPI)AfAm >90 (>60 ml/min/1.73 sqM) Est GFR (CKD-EPI)NonAf >90 (>60 ml/min/1.73 sqM) Glucose 121 H (74-99) mg/dL Calcium 9.0 (8.4-10.2) mg/dL Magnesium 2.0 (1.6-2.3) mg/dL Total Bilirubin 1.5 H (0.2-1.3) mg/dL AST 74 H (17-59) U/L ALT 41 (4-49) U/L Alkaline Phosphatase 130 H (38-126) U/L Troponin I (0.000-0.034) ng/mL NT-Pro-B Natriuret Pep pg/mL Total Protein 6.9 (6.3-8.2) g/dL Albumin 3.9 (3.5-5.0) g/dL 05/01/21 05/01/21 Range/Units 19:45 19:45 WBC (3.8-10.6) k/uL RBC (4.30-5.90) m/uL Hgb (13.0-17.5) gm/dL Hct (39.0-53.0) % MCV (80.0-100.0) fL MCH (25.0-35.0) pg MCHC (31.0-37.0) g/dL RDW (11.5-15.5) % Plt Count (150-450) k/uL MPV Neutrophils % % Lymphocytes % % Monocytes % % Eosinophils % % Basophils % % Neutrophils # (1.3-7.7) k/uL Lymphocytes # (1.0-4.8) k/uL Monocytes # (0-1.0) k/uL Eosinophils # (0-0.7) k/uL Basophils # (0-0.2) k/uL PT (9.0-12.0) sec INR (<1.2) APTT (22.0-30.0) sec Sodium (137-145) mmol/L Potassium (3.5-5.1) mmol/L Chloride (98-107) mmol/L Carbon Dioxide (22-30) mmol/L Anion Gap mmol/L BUN (9-20) mg/dL Creatinine (0.66-1.25) mg/dL Est GFR (CKD-EPI)AfAm (>60 ml/min/1.73 sqM) Est GFR (CKD-EPI)NonAf (>60 ml/min/1.73 sqM) Glucose (74-99) mg/dL Calcium (8.4-10.2) mg/dL Magnesium (1.6-2.3) mg/dL Total Bilirubin (0.2-1.3) mg/dL AST (17-59) U/L ALT (4-49) U/L Alkaline Phosphatase (38-126) U/L Troponin I <0.012 (0.000-0.034) ng/mL NT-Pro-B Natriuret Pep 176 pg/mL Total Protein (6.3-8.2) g/dL Albumin (3.5-5.0) g/dL - EKG Data -: EKG Interpreted by Me EKG Comments: 12-lead Electrocardiogram Interpretation Note EKG was reviewed and interpreted by myself. 12-lead ECG performed at 1927 is interpreted by me as revealing normal sinus rhythm at a rate of 85 beats per minute. [place] is normal. CO interval is 202 ms, QRS duration 78 ms, QTc is 454 ms.. There were no ST or T wave abnormalities to suggest myocardial ischemia or injury. R wave progression across the precordium was satisfactory. By my interpretation this EKG is non-diagnostic for acute ischemia. Disposition Clinical Impression: Hyponatremia, Venous hypertension of both lower extremities, Venous stasis dermatitis of both lower extremities, Hypochloremia Disposition: ADMITTED IP TO THIS [facility] Condition: Serious
[2021-05-02] MEDS: HEPARIN SODIUM,PORCINE/PF 5,000 UNIT/0.5 ML SYRINGE SQ SCH ×3 (01:25→17:41)
[2021-05-02 04:18] LABS: Basophils # (A) 0.1 k/uL (0-0.2); Basophils % (A) 1 %; Eosinophils # (A) 0.3 k/uL (0-0.7); Eosinophils % (A) 3 %; HGB 12.7 gm/dL (13.0-17.5); Lymphocytes % (A) 11 %; MCH 33.7 pg (25.0-35.0); MCHC 33.5 g/dL (31.0-37.0); MCV 100.4 fL (80.0-100.0); Mean Platelet Volume 7.4; Monocytes % (A) 10 %; Neutrophils % (A) 73 %; Platelet Count 173 k/uL (150-450); RBC 3.79 m/uL (4.30-5.90); WBC 9.5 k/uL (3.8-10.6)
[2021-05-02 04:37] LABS: African American GFR (CKD) >90 (>60 ml/min/1.73 sqM); Anion Gap 8 mmol/L; Blood Urea Nitrogen 6 mg/dL (9-20); Calcium 8.3 mg/dL (8.4-10.2); Carbon Dioxide 24 mmol/L (22-30); Chloride 86 mmol/L (98-107); Glucose 114 mg/dL (74-99); Non-African American GFR(CKD) >90 (>60 ml/min/1.73 sqM); Potassium 4.1 mmol/L (3.5-5.1)
[2021-05-02 05:13] LABS: Sodium 118 mmol/L (137-145)
[2021-05-02] MEDS: SODIUM CHLORIDE 0.9% 1,000 ML IV SCH (08:55)
--- NOTE | 2021-05-02 11:16 | P.HPIM ---
History of Present Illness H&P Date: 05/02/21 Chief Complaint: Hyponatremia. HISTORY OF PRESENT ILLNESS: This is a 70-year-old male one of my patient with a previous medical history significant for hypertension and hypertensive cardiovascular disease, hyperlipidemia, obesity with obstructive sleep apnea, history of chronic alcohol use and dependence with the peripheral neuropathy, significant spondylosis of the lumbar spine with spinal stenosis and significant chronic low back pain, patient presented to the emergency department at [facility] yesterday because of increased swelling in both lower extremities and increased pain in both of them that has been going on for quite some time, patient was hospitalized last at [facility] back in January 2021 and he signed himself AGAINST MEDICAL ADVICE at that time, he has not been following up with me in the office at this time he has not been taking his medication, he showed up to the ER with increased swelling in both lower extremities and he was found to have a significant hyponatremia initially it appears to be related to hypovolemia and patient was placed on IV fluid resuscitation but today his sodium is lower at 118 and his chloride is low as well, we will check serum osmolarity, urine osmolarity, urine sodium, cortisol level, TSH and free T4 as well as uric acid level, we'll place nephrology consultation to assist in the treatment of hyponatremia, we will start the patient on Lasix 40 mg IV push every 12 hours, and Hep-Lock his IV REVIEW OF SYSTEMS: Constitutional: No documented fever, no chills, no night sweats. No weight change. positive for weakness weakness, fatigue or lethargy. Positive for daytime sleepiness. HEENT: No headache. No blurred vision or double vision, no loss of vision. No loss of Hearing, no ringing in the ears, no dizziness. No nasal drainage or congestion. No epistaxis. No sore throat. Lungs: No shortness of breath, no cough, no sputum production. No wheezing. Reports dyspnea with activity. Cardiovascular: No chest pain, positive for lower extremity edema. No palpitations. No paroxysmal nocturnal dyspnea. No orthopnea. No lightheadedness or dizziness. No syncopal episodes.Positive for nocturia. Abdominal: No abdominal pain. No nausea, vomiting. No diarrhea. No co nstipation. No bloody or tarry stools . No loss of appetite. Genitourinary: No dysuria, increased frequency, urgency. No urinary retention. Musculoskeletal: positive for neck pain, positive for chronic low back pain, positive for significant pain in both lower extremities with significant neurop athy, positive for gait dysfunction. Integumentary: Positive for venous ulcerations of both lower extremities , no lesions. No rash or pruritus. No unusual bruising. Does appear to have seborrheic dermatitis Neurologic: No aphasia. No facial droop. Memory loss. No head injury. No headache, positive for paresthesia in both lower x-rays. Psychiatric: Patient does appear to be somewhat depressed, appears to be a bit anxious, no suicidal thoughts or ideation. Endocrine: No abnormal blood sugars, increased weight. PAST MEDICAL HISTORY: 1. Hypertension and hypertensive cardiovascular disease. 2. Hyperlipidemia. 3. Hypothyroidism. 4. Chronic venous stasis with stasis dermatitis. 5. Chronic alcohol use and dependence. 6. Obstructive sleep apnea. 7. Peripheral neuropathy. 8. Vascular dementia. 9. Enlarged prostate. 10. 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 11. Restless leg syndrome. PAST SURGICAL HISTORY: 1. Laminectomies in the lumbar spine 3. 2. Tonsillectomy. 3. Hand surgery with tendon repair. SOCIAL HISTORY: Patient denies a history of smoking, he drinks about 3 beers every other day, he used to drink a lot heavier than that, he denies any drug use or abuse, he denies any marijuana use and lives along, he has a daughter who comes a check on him, only on the weekend. FAMILY HISTORY: Father at age 93 from old age. History of hypertension and myocardial infarction, mother at age of 84 from lung cancer and she was heavy smoker, patient has 2 brothers one of them is super morbid obesity and other one is okay, patient has 2 sisters one of them is 63-year-old with history of venous stasis, the other one is fine, patient has a daughter with no major medical problems 35-year-old. PHYSICAL EXAMINATION: General: this is a 70-year-old male who is laying down in bed does not appear to be in acute distress. HEENT: Head is atraumatic, normocephalic, pupils were equal round reactive to light and recommendation, extraocular muscle movement were intact, sclera nonicteric, conjunctivae were pale, mucous membranes of the mouth are somewhat dry. Neck: Supple, no JVP, normal carotid upstroke bilaterally, no lymphadenopathy. Chest: Decreased breath sounds at the bases, few rhonchi, no expiratory wheezes, no chest wall tenderness, no intercostal retractions. Heart: First heart sound is normal, second heart sound is normal there is systolic ejection murmur 2/6 located in the left sternal border. Abdomen: Soft, nontender, nondistended, positive bowel sounds. Extremities: There is significant venous stasis of both lower extremity is with increased erythema and venous ulceration with significant tenderness to palpation, with a chronic skin changes dorsalis pedis +1 bilaterally poor foot hygiene. Neurologic examination: Patient is awake alert and oriented X 3, cranial nerves II-12 appear grossly intact, muscle power were 4 out of 5 in upper extremities and 3out of 5 in bilateral lower extremities, deep tendon reflexes were depressed bilaterally. ASSESSMENT AND PLAN: 1. Hyponatremia secondary to hypovolemia initially and now hypervolemia. Hep- Lock his IV start the patient on IV Lasix 40 mg IV push every 12 hours, monitor the patient's serum osmolality, urine as well as to, urine sodium, cortisol level, TSH with free T4, also uric acid level. Nephrology consultation with fluid resection. 2. Bilateral lower extremity venous stasis with venous ulceration . venous Do ppler was negative for DVT, continue with local care patient will need bilateral Rocky wrap to both lower extremities along with Silvadene cream 1%. 3. Hypertension and hypertensive cardiovascular disease. restart the patient on losartan 50 mg orally once every day. 4. Hyperlipidemia. with that, monitor lipid panel, keep LDL 55-70. 5. Vascular dementia. We will continue Namenda 5 mg po bid 6. Chronic alcohol use and dependence. Patient was advised to be abstinent from alcohol. 7. 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 Continue [place] 10/325 mg 1 tablet every 6 hours as needed. 8. Bilateral lower extremity neuropathy continue patient on Lyrica 150 mg orally twice every day. 9. Depression. Continue patient on Cymbalta 30 mg orally once every day. 10. DVT prophylaxis. Continue heparin 5000 units subcutaneously every 8 hours. 11. GI prophylaxis. Continue Pepcid 20 mg orally once every day. 12. Admit to inpatient. Estimate a length of stay 2 midnights. 13. Patient is full code. Past Medical History Past Medical History: Dementia, Hyperlipidemia, Hypertension, Osteoarthritis (OA) Additional Past Medical History / Comment(s): ETOH abuse, chronic back pain, BLE neuropathy, lymphedema, multiple falls History of Any Multi-Drug Resistant Organisms: None Reported Past Surgical History: Back Surgery, Orthopedic Surgery, Tonsillectomy Additional Past Surgical History / Comment(s): 3 back laminectomies, hand surgery s/p trauma to reattatch tendons Past Anesthesia/Blood Transfusion Reactions: No Reported Reaction Past Psychological History: No Psychological Hx Reported Smoking Status: Never smoker Past Alcohol Use History: Daily Past Drug Use History: None Reported - Past Family History Father Family Medical History: Hypertension (Father at age 94 from the old age had a history of hypertension.) Mother Family Medical History: Cancer (Mother at age of 84 from lung cancer) Additional Family Medical History / Comment(s): Lung cancer Brother(s) Family Medical History: No Reported History (Patient has 2 brothers one is 86-year-old male one 79-year-old no major medical problems.) Sister(s) Family Medical History: Hypertension (Patient has one sister 67-year-old with history of hypertension.) Daughter(s) Family Medical History: No Reported History (Patient has one daughter no major medical problems.) Medications and Allergies Home Medications Medication Instructions Recorded Confirmed Type No Known Home Medications 05/01/21 05/01/21 History Allergies Allergy/AdvReac Type Severity Reaction Status Date / Time No Known Allergies Allergy Verified 05/01/21 20:33 Physical Exam Vitals: Vital Signs Temp Pulse Resp BP Pulse Ox 05/02/21 09:00 18 05/02/21 08:00 16 05/02/21 06:53 92 16 134/69 98 05/02/21 03:33 77 18 150/78 99 05/01/21 22:56 88 18 130/61 96 05/01/21 21:14 92 16 141/67 96 05/01/21 20:41 92 18 152/67 97 05/01/21 18:25 99.1 F 90 20 144/75 96 Intake and Output 05/01/21 05/02/21 05/02/21 22:59 06:59 14:59 Other: Weight 154.221 kg Results CBC & Chem 7: 05/02/21 03:20 05/02/21 03:20 Labs: Abnormal Lab Results - Last 24 Hours (Table) 05/01/21 05/01/21 05/02/21 Range/Units 19:45 19:45 03:20 RBC (4.30-5.90) m/uL Hgb (13.0-17.5) gm/dL Hct (39.0-53.0) % MCV (80.0-100.0) fL Neutrophils # 8.0 H (1.3-7.7) k/uL Sodium 119 L* 118 L* (137-145) mmol/L Chloride 87 L 86 L (98-107) mmol/L BUN <2 L 6 L (9-20) mg/dL Creatinine 0.58 L 0.65 L (0.66-1.25) mg/dL Glucose 121 H 114 H (74-99) mg/dL Calcium 8.3 L (8.4-10.2) mg/dL Total Bilirubin 1.5 H (0.2-1.3) mg/dL AST 74 H (17-59) U/L Alkaline Phosphatase 130 H (38-126) U/L 05/02/21 Range/Units 03:20 RBC 3.79 L (4.30-5.90) m/uL Hgb 12.7 L (13.0-17.5) gm/dL Hct 38.0 L (39.0-53.0) % MCV 100.4 H (80.0-100.0) fL Neutrophils # (1.3-7.7) k/uL Sodium (137-145) mmol/L Chloride (98-107) mmol/L BUN (9-20) mg/dL Creatinine (0.66-1.25) mg/dL Glucose (74-99) mg/dL Calcium (8.4-10.2) mg/dL Total Bilirubin (0.2-1.3) mg/dL AST (17-59) U/L Alkaline Phosphatase (38-126) U/L
[2021-05-02 11:28] LABS: Uric Acid 4.6 mg/dL (3.5-8.5)
--- NOTE | 2021-05-02 13:10 | P.NPCON ---
History of Present Illness - Reason for Consult Consult date: 05/02/21 hyponatremia - Chief Complaint Hyponatremia - History of Present Illness This is a 70-year-old male seen in consultation because of hyponatremia. He came in with a sodium of 119. He was given IV fluids normal saline and probably within 4-5 hours a repeat sodium was 118. Urine osmolality is 243 at 9:45 AM today. This was after getting normal saline. He is a poor historian and most recently as I can't remember. He seems to be somewhat unkempt. He admits to drinking large amounts of water as well as an occasional beer or beverages otherwise. His past history significant for history of hypertension, alcohol intake, back pain with significant spinal stenosis and has had surgery in the past hypertension BPH restless leg syndrome and hypothyroidism. Although he is not on any medications medications, his TSH is normal at 3.6 this morning. Denies any nausea vomiting diarrhea. Denies any headache confusion which is new. He does have edema but is unable to recall for how long but he says this is a chronic problem and not new. Past Medical History Past Medical History: Dementia, Hyperlipidemia, Hypertension, Osteoarthritis (OA) Additional Past Medical History / Comment(s): ETOH abuse, chronic back pain, BLE neuropathy, lymphedema, multiple falls History of Any Multi-Drug Resistant Organisms: None Reported Past Surgical History: Back Surgery, Orthopedic Surgery, Tonsillectomy Additional Past Surgical History / Comment(s): 3 back laminectomies, hand surgery s/p trauma to reattatch tendons Past Anesthesia/Blood Transfusion Reactions: No Reported Reaction Past Psychological History: No Psychological Hx Reported Smoking Status: Never smoker Past Alcohol Use History: Daily Past Drug Use History: None Reported - Past Family History Father Family Medical History: Hypertension (Father at age 94 from the old age had a history of hypertension.) Mother Family Medical History: Cancer (Mother at age of 84 from lung cancer) Additional Family Medical History / Comment(s): Lung cancer Brother(s) Family Medical History: No Reported History (Patient has 2 brothers one is 86-year-old male one 79-year-old no major medical problems.) Sister(s) Family Medical History: Hypertension (Patient has one sister 67-year-old with history of hypertension.) Daughter(s) Family Medical History: No Reported History (Patient has one daughter no major medical problems.) Medications and Allergies Home Medications Medication Instructions Recorded Confirmed Type No Known Home Medications 05/01/21 05/01/21 History Allergies Allergy/AdvReac Type Severity Reaction Status Date / Time No Known Allergies Allergy Verified 05/01/21 20:33 Physical Exam Vitals: Vital Signs Temp Pulse Resp BP Pulse Ox 05/02/21 11:00 96.8 F L 85 18 139/78 95 05/02/21 10:00 18 05/02/21 09:00 18 05/02/21 08:00 16 05/02/21 06:53 92 16 134/69 98 05/02/21 03:33 77 18 150/78 99 05/01/21 22:56 88 18 130/61 96 05/01/21 21:14 92 16 141/67 96 05/01/21 20:41 92 18 152/67 97 05/01/21 18:25 99.1 F 90 20 144/75 96 Intake and Output 05/01/21 05/02/21 05/02/21 22:59 06:59 14:59 Other: Weight 154.221 kg On examination he is awake alert seems to be oriented but has poor memory off his own medical conditions and mostly sees a can't remember. HEENT exam no JVP neck is supple no facial asymmetry Lungs are clear to auscultation good air entry bilaterally Heart sounds unremarkable for any murmur rub gallop Abdomen soft nontender obese Extremity exam was mild edema Neurologically awake alert oriented but poor memory no focal motor deficit Results - Lab Results Most recent lab results Calcium 8.3 mg/dL (8.4-10.2) L 05/02/21 03:20 Magnesium 2.0 mg/dL (1.6-2.3) 05/01/21 19:45 05/02/21 03:20 05/02/21 03:20 Assessment and Plan Assessment: Impression 1. Hyponatremia sodium was 119 worsened with few hours of normal saline at 100 mL an hour for maybe 3-4 hours sodium and on 218. Urine osmolality is 243. Blood sugar is 114 TSH is 3.6. Cortisol pending. Creatinine is 0.58 and BUN is less than 2 uric acid is 4.6 The cause of this hyponatremia likely is ATN to syndrome. The presence of edema it is difficult to make a diagnosis of SIADH. The atypical features for the diagnosis of tea and toast syndrome is that with normal saline serum sodium should have gotten better 2. Abnormal liver function tests likely from alcohol use 3. History of spinal stenosis and back surgeries. 4. Edema, bilateral. Likely from pulmonary hypertension and or obstructive sleep apnea. Dopplers of the leg veins negative for DVT, albumin is 3.9. Rule out proteinuria, Recommendation 1. Restrict fluid intake to 800 mL per day 2. High protein diet, to improve slowly with diuresis of free water. 3. Pending urine sodium and creatinine. 4. Labs really done every 4 hours and 8 hours and to be called to me. 5. He is on Lasix, we will continue it and see if his response with diuresis improves his sodium. 6. Aim is to improve his sodium at about 8 mEq for the next 24 hours Thank you for this consultation and we'll continue to follow
[2021-05-02 13:21] LABS: Urine Alcohol Negative (Negative); Urine Barbiturate Negative (Negative); Urine Cocaine Negative (Negative); Urine Methadone Negative (Negative); Urine Opiates Negative (Negative); Urine Phencyclidine Negative (Negative)
[2021-05-02 17:07] LABS: African American GFR (CKD) >90 (>60 ml/min/1.73 sqM); Anion Gap 6 mmol/L; Blood Urea Nitrogen 8 mg/dL (9-20); Calcium 8.4 mg/dL (8.4-10.2); Carbon Dioxide 25 mmol/L (22-30); Chloride 87 mmol/L (98-107); Glucose 124 mg/dL (74-99); Non-African American GFR(CKD) >90 (>60 ml/min/1.73 sqM); Potassium 4.3 mmol/L (3.5-5.1)
[2021-05-02 17:14] LABS: Sodium 118 mmol/L (137-145)
[2021-05-02 19:48] LABS: Appearance,Urine Clear (Clear); Bilirubin,Urine Negative (Negative); Blood,Urine Moderate (Negative); Color,Urine Yellow; Glucose,Urine (UA) Negative (Negative); Ketones,Urine Trace (Negative); Leukocyte Esterase,Urine Negative (Negative); Nitrite,Urine Negative (Negative); Protein,Urine Negative (Negative); RBC,Urine 4 /hpf (0-5); WBC,Urine 1 /hpf (0-5)
[2021-05-02] MEDS: MEMANTINE 5 MG TAB PO SCH (20:08)
[2021-05-02] MEDS: PREGABALIN 75 MG CAP PO SCH (20:08)
[2021-05-02] MEDS: FAMOTIDINE 20 MG TAB PO SCH (20:08)
[2021-05-02] MEDS: FUROSEMIDE 10 MG/ML 4 ML VIAL IV SCH (20:08)
[2021-05-02 20:20] LABS: Creatinine,Urine Random 103.7 mg/dL; Protein/Creatinine Ratio,Urine 0.106
[2021-05-02 21:09] LABS: African American GFR (CKD) >90 (>60 ml/min/1.73 sqM); Anion Gap 7 mmol/L; Blood Urea Nitrogen 8 mg/dL (9-20); Calcium 8.5 mg/dL (8.4-10.2); Carbon Dioxide 24 mmol/L (22-30); Chloride 87 mmol/L (98-107); Glucose 115 mg/dL (74-99); Non-African American GFR(CKD) >90 (>60 ml/min/1.73 sqM); Potassium 4.2 mmol/L (3.5-5.1)
[2021-05-02 21:29] LABS: Sodium 118 mmol/L (137-145)
[2021-05-02] MEDS ORDERED: TOLVAPTAN 15 MG 1/2 TABLET PO ONE ×2 (22:00→23:30)
[2021-05-02 23:37] LABS: Hemoglobin A1C 5.8 % (4.0-6.0)
[2021-05-03] MEDS: HEPARIN SODIUM,PORCINE/PF 5,000 UNIT/0.5 ML SYRINGE SQ SCH ×3 (00:21→15:14)
[2021-05-03 07:38] LABS: Basophils # (A) 0.1 k/uL (0-0.2); Basophils % (A) 1 %; Eosinophils # (A) 0.3 k/uL (0-0.7); Eosinophils % (A) 4 %; HCT 42.8 % (39.0-53.0); HGB 14.4 gm/dL (13.0-17.5); Lymphocytes # (A) 0.8 k/uL (1.0-4.8); Lymphocytes % (A) 10 %; MCH 34.1 pg (25.0-35.0); MCHC 33.6 g/dL (31.0-37.0); MCV 101.5 fL (80.0-100.0); Macrocytosis Slight; Mean Platelet Volume 7.1; Monocytes # (A) 0.7 k/uL (0-1.0); Monocytes % (A) 9 %; Neutrophils % (A) 75 %; Platelet Count 209 k/uL (150-450); RBC 4.21 m/uL (4.30-5.90); RDW 13.3 % (11.5-15.5)
[2021-05-03 07:56] LABS: ALT 29 U/L (4-49); AST 53 U/L (17-59); African American GFR (CKD) >90 (>60 ml/min/1.73 sqM); Albumin 3.2 g/dL (3.5-5.0); Alkaline Phosphatase 94 U/L (38-126); Anion Gap 8 mmol/L; Blood Urea Nitrogen 6 mg/dL (9-20); Calcium 8.6 mg/dL (8.4-10.2); Carbon Dioxide 28 mmol/L (22-30); Chloride 93 mmol/L (98-107); Glucose 129 mg/dL (74-99); Magnesium 2.1 mg/dL (1.6-2.3); Non-African American GFR(CKD) >90 (>60 ml/min/1.73 sqM); Sodium 129 mmol/L (137-145); Total Bilirubin 1.3 mg/dL (0.2-1.3); Total Protein 5.8 g/dL (6.3-8.2)
--- NOTE | 2021-05-03 08:18 | P.PN ---
Subjective Progress Note Date: 05/03/21 HISTORY OF PRESENT ILLNESS: This is a 70-year-old male one of my patient with a previous medical history significant for hypertension and hypertensive cardiovascular disease, hyperlipidemia, obesity with obstructive sleep apnea, history of chronic alcohol use and dependence with the peripheral neuropathy, significant spondylosis of the lumbar spine with spinal stenosis and significant chronic low back pain, patient presented to the emergency department at [facility] yesterday because of increased swelling in both lower extremities and increased pain in both of them that has been going on for quite some time, patient was hospitalized last at [facility] back in January 2021 and he signed himself AGAINST MEDICAL ADVICE at that time, he has not been following up with me in the office at this time he has not been taking his medication, he showed up to the ER with increased swelling in both lower extremities and he was found to have a significant hyponatremia initially it appears to be related to hypovolemia and patient was placed on IV fluid resuscitation but today his sodium is lower at 118 and his chloride is low as well, we will check serum osmolarity, urine osmolarity, urine sodium, cortisol level, TSH and free T4 as well as uric acid level, we'll place nephrology consultation to assist in the treatment of hyponatremia, we will start the patient on Lasix 40 mg IV push every 12 hours, and Hep-Lock his IV 05/03: Patient is laying down in bed in no current distress, he was seen yesterday in consultation by nephrology, I reviewed his labs and his serum osmolarity was 250, he was placed on fluid restriction to 800 mL every 24 hours, continue Lasix 40 mg IV push every 12 hours, his sodium is much better today at 129, we'll continue current treatment plan, follow-up with the patient in the next 24 hours. Physical therapy evaluation for possible subacute rehabilitation as well as family welfare social work professor consultation REVIEW OF SYSTEMS: Constitutional: No documented fever, no chills, no night sweats. No weight change. positive for weakness weakness, fatigue or lethargy. Positive for daytime sleepiness. HEENT: No headache. No blurred vision or double vision, no loss of vision. No loss of Hearing, no ringing in the ears, no dizziness. No nasal drainage or congestion. No epistaxis. No sore throat. Lungs: No shortness of breath, no cough, no sputum production. No wheezing. Reports dyspnea with activity. Cardiovascular: No chest pain, positive for lower extremity edema. No palpitations. No paroxysmal nocturnal dyspnea. No orthopnea. No lighth eadedness or dizziness. No syncopal episodes.Positive for nocturia. Abdominal: No abdominal pain. No nausea, vomiting. No diarrhea. No constipation. No bloody or tarry stools . No loss of appetite. Genitourinary: No dysuria, increased frequency, urgency. No urinary retention. Musculoskeletal: positive for neck pain, positive for chronic low back pain, positive for significant pain in both lower extremities with significant neuropathy, positive for gait dysfunction. Integumentary: Positive for venous ulcerations of both lower extremities , no lesions. No rash or pruritus. No unusual bruising. Does appear to have seborrheic dermatitis Neurologic: No aphasia. No facial droop. Memory loss. No head injury. No headache, positive for paresthesia in both lower x-rays. Psychiatric: Patient does appear to be somewhat depressed, appears to be a bit anxious, no suicidal thoughts or ideation. Endocrine: No abnormal blood sugars, increased weight. PHYSICAL EXAMINATION: General: this is a 70-year-old male who is laying down in bed does not appear to be in acute distress. HEENT: Head is atraumatic, normocephalic, pupils were equal round reactive to light and recommendation, extraocular muscle movement were intact, sclera nonicteric, conjunctivae were pale, mucous membranes of the mouth are somewhat dry. Neck: Supple, no JVP, normal carotid upstroke bilaterally, no lymphadenopathy. Chest: Decreased breath sounds at the bases, few rhonchi, no expiratory wheezes, no chest wall tenderness, no intercostal retractions. Heart: First heart sound is normal, second heart sound is normal there is systolic ejection murmur 2/6 located in the left sternal border. Abdomen: Soft, nontender, nondistended, positive bowel sounds. Extremities: There is significant venous stasis of both lower extremity is with increased erythema and venous ulceration with significant tenderness to palpation, with a chronic skin changes dorsalis pedis +1 bilaterally poor foot hygiene. Neurologic examination: Patient is awake alert and oriented X 3, cranial nerves II-12 appear grossly intact, muscle power were 4 out of 5 in upper extremities and 3out of 5 in bilateral lower extremities, deep tendon reflexes were depressed bilaterally. ASSESSMENT AND PLAN: 1. Hyponatremia secondary to hypervolemia. Hep-Lock his IV [place] continuesix 40 mg IV push every 12 hours, monitor the patient serum sodium level continue fluid resection at 800 mL every 24 hours. 2. Bilateral lower extremity venous stasis with venous ulceration . venous Doppler was negative for DVT, continue with local care patient will need bilateral Rocky wrap to both lower extremities along with Silvadene cream 1%. 3. Hypertension and hypertensive cardiovascular disease. restart the patient on losartan 50 mg orally once every day. 4. Hyperlipidemia. with that, monitor lipid panel, keep LDL 55-70. 5. Vascular dementia. We will continue Namenda 5 mg po bid 6. Chronic alcohol use and dependence. Patient was advised to be abstinent from alcohol. 7. 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 Continue [place] 10/325 mg 1 tablet every 6 hours as needed. 8. Bilateral lower extremity neuropathy continue patient on Lyrica 150 mg orally twice every day. 9. Depression. Continue patient on Cymbalta 30 mg orally once every day. 10. DVT prophylaxis. Continue heparin 5000 units subcutaneously every 8 hours. 11. GI prophylaxis. Continue Pepcid 20 mg orally once every day. 12. Physical therapy evaluation. 13. community service worker consultation for discharge planning. Objective - Vital Signs Vital signs: Vital Signs Temp 98.9 F 05/03/21 03:57 Pulse 90 05/03/21 00:00 Resp 20 05/03/21 03:57 BP 150/70 05/03/21 03:57 Pulse Ox 95 05/03/21 03:57 Intake & Output 05/02/21 05/03/21 05/03/21 18:59 06:59 18:59 Intake Total 120 400 Output Total 4950 Balance 120 -4550 Weight 157 kg 151.7 kg Intake: Oral 120 400 Output: Urine 4950 Other: Voiding Method Urinal Toilet Urinal - Labs CBC & Chem 7: 05/03/21 07:21 05/03/21 07:21 Labs: Abnormal Lab Results - Last 24 Hours (Table) 05/02/21 05/02/21 05/02/21 Range/Units 03:20 09:45 16:00 RBC (4.30-5.90) m/uL MCV (80.0-100.0) fL Lymphocytes # (1.0-4.8) k/uL Sodium 118 L* (137-145) mmol/L Chloride 87 L (98-107) mmol/L BUN 8 L (9-20) mg/dL Creatinine 0.62 L (0.66-1.25) mg/dL Glucose 124 H (74-99) mg/dL Osmolality 250 L (280-301) mosm/kg Total Protein (6.3-8.2) g/dL Albumin (3.5-5.0) g/dL Urine Ketones Trace H (Negative) Urine Blood Moderate H (Negative) 05/02/21 05/03/21 05/03/21 Range/Units 20:07 07:21 07:21 RBC 4.21 L (4.30-5.90) m/uL MCV 101.5 H (80.0-100.0) fL Lymphocytes # 0.8 L (1.0-4.8) k/uL Sodium 118 L* 129 L (137-145) mmol/L Chloride 87 L 93 L (98-107) mmol/L BUN 8 L 6 L (9-20) mg/dL Creatinine 0.54 L 0.57 L (0.66-1.25) mg/dL Glucose 115 H 129 H (74-99) mg/dL Osmolality (280-301) mosm/kg Total Protein 5.8 L (6.3-8.2) g/dL Albumin 3.2 L (3.5-5.0) g/dL Urine Ketones (Negative) Urine Blood (Negative)
[2021-05-03] MEDS: DULoxetine HCL 30 MG CAPSULE.DR PO SCH (09:28)
[2021-05-03] MEDS: FUROSEMIDE 10 MG/ML 4 ML VIAL IV SCH (09:28)
[2021-05-03] MEDS: LOSARTAN 50 MG TAB PO SCH (09:28)
[2021-05-03] MEDS: PREGABALIN 75 MG CAP PO SCH ×2 (09:29→20:19)
[2021-05-03] MEDS: MEMANTINE 5 MG TAB PO SCH ×2 (09:29→20:19)
[2021-05-03] MEDS ORDERED: DEXTROSE 5% IN WATER 1,000 ML IV ONE (09:40)
[2021-05-03] MEDS: ACETAMINOPHEN TAB 325 MG TAB PO PRN ×2 (09:42→17:22)
--- NOTE | 2021-05-03 09:42 | P.PN ---
Subjective Patient is seen in follow-up for hyponatremia. Patient received dose of Samsca last night. Sodium level up to 129 this morning. Denies chest pain or shortness of breath. Also on IV Lasix. Edema improving. Vital signs are stable. General: The patient appeared well nourished and normally developed. HEENT: Head exam is unremarkable. Neck is without jugular venous distension. LUNGS: Breath sounds decreased. HEART: Rate and Rhythm are regular. ABDOMEN: Soft, obese. EXTREMITITES: 1+ edema. Chronic changes noted. Objective - Vital Signs Vital signs: Vital Signs Temp 98.9 F 05/03/21 03:57 Pulse 90 05/03/21 00:00 Resp 20 05/03/21 03:57 BP 150/70 05/03/21 03:57 Pulse Ox 95 05/03/21 03:57 Intake & Output 05/02/21 05/03/21 05/03/21 18:59 06:59 18:59 Intake Total 120 400 Output Total 4950 Balance 120 -4550 Weight 157 kg 151.7 kg Intake: Oral 120 400 Output: Urine 4950 Other: Voiding Method Urinal Toilet Urinal - Labs CBC & Chem 7: 05/03/21 07:21 05/03/21 07:21 Labs: Abnormal Lab Results - Last 24 Hours (Table) 05/02/21 05/02/21 05/02/21 Range/Units 03:20 09:45 16:00 RBC (4.30-5.90) m/uL MCV (80.0-100.0) fL Lymphocytes # (1.0-4.8) k/uL Sodium 118 L* (137-145) mmol/L Chloride 87 L (98-107) mmol/L BUN 8 L (9-20) mg/dL Creatinine 0.62 L (0.66-1.25) mg/dL Glucose 124 H (74-99) mg/dL Osmolality 250 L (280-301) mosm/kg Total Protein (6.3-8.2) g/dL Albumin (3.5-5.0) g/dL Urine Ketones Trace H (Negative) Urine Blood Moderate H (Negative) 05/02/21 05/03/21 05/03/21 Range/Units 20:07 07:21 07:21 RBC 4.21 L (4.30-5.90) m/uL MCV 101.5 H (80.0-100.0) fL Lymphocytes # 0.8 L (1.0-4.8) k/uL Sodium 118 L* 129 L (137-145) mmol/L Chloride 87 L 93 L (98-107) mmol/L BUN 8 L 6 L (9-20) mg/dL Creatinine 0.54 L 0.57 L (0.66-1.25) mg/dL Glucose 115 H 129 H (74-99) mg/dL Osmolality (280-301) mosm/kg Total Protein 5.8 L (6.3-8.2) g/dL Albumin 3.2 L (3.5-5.0) g/dL Urine Ketones (Negative) Urine Blood (Negative) Assessment and Plan Plan: Assessment: 1. Hypervolemic hyponatremia maintained on IV Lasix. Also received Samsca last night. Sodium level up to 129 this morning. Urine osmolality 243 and urine sodium less than 10. TSH and cortisol normal. 2. Benign hypertension. Stable. 3. Lower extremity edema. 4. Chronic alcohol abuse. Plan: Stop IV Lasix. Remove fluid restriction. Start D5W at 75 mL an hour to reverse the rapid correction. Recheck sodium level in 3 hours.
[2021-05-03 12:48] VITALS: BMI 44.1
[2021-05-03] MEDS ORDERED: DEXTROSE 5% IN WATER 1,000 ML IV SCH (17:30)
[2021-05-03] MEDS: FAMOTIDINE 20 MG TAB PO SCH (20:19)
[2021-05-04] MEDS: HEPARIN SODIUM,PORCINE/PF 5,000 UNIT/0.5 ML SYRINGE SQ SCH ×4 (01:04→23:28)
[2021-05-04 08:46] LABS: Basophils # (A) 0.1 k/uL (0-0.2); Basophils % (A) 1 %; Eosinophils # (A) 0.4 k/uL (0-0.7); Eosinophils % (A) 4 %; HCT 39.2 % (39.0-53.0); HGB 13.8 gm/dL (13.0-17.5); Lymphocytes # (A) 1.2 k/uL (1.0-4.8); Lymphocytes % (A) 13 %; MCH 35.2 pg (25.0-35.0); MCHC 35.1 g/dL (31.0-37.0); MCV 100.1 fL (80.0-100.0); Mean Platelet Volume 7.7; Monocytes % (A) 11 %; Neutrophils # (A) 6.2 k/uL (1.3-7.7); Neutrophils % (A) 68 %; Platelet Count 212 k/uL (150-450); RBC 3.92 m/uL (4.30-5.90); RDW 13.5 % (11.5-15.5)
--- NOTE | 2021-05-04 09:32 | P.PN ---
Subjective Patient is seen in follow-up for hyponatremia. He received D5W for a few hours yesterday to reverse the rapid correction of hyponatremia. Sodium level 126 as of last night. Currently off IV fluids and diuretics. Denies chest pain or shortness of breath. Also on IV Lasix. Edema improving. Vital signs are stable. General: The patient appeared well nourished and normally developed. HEENT: Head exam is unremarkable. Neck is without jugular venous distension. LUNGS: Breath sounds decreased. HEART: Rate and Rhythm are regular. ABDOMEN: Soft, obese. EXTREMITITES: 1+ edema. Chronic changes noted. Objective - Vital Signs Vital signs: Vital Signs Temp 98 F 05/03/21 19:45 Pulse 83 05/04/21 04:00 Resp 20 05/04/21 04:00 BP 126/73 05/04/21 04:00 Pulse Ox 95 05/04/21 04:00 Intake & Output 05/03/21 05/04/21 05/04/21 18:59 06:59 18:59 Intake Total 1170 Output Total 2100 1550 Balance -930 -1550 Weight 151.7 kg 150.5 kg Intake: Oral 1170 Output: Urine 2100 1550 Other: Voiding Method Toilet Toilet Urinal Urinal # Voids 1 - Labs CBC & Chem 7: 05/04/21 07:30 05/03/21 20:07 Labs: Abnormal Lab Results - Last 24 Hours (Table) 05/03/21 05/03/21 05/03/21 Range/Units 13:05 16:34 20:07 RBC (4.30-5.90) m/uL MCV (80.0-100.0) fL MCH (25.0-35.0) pg Sodium 128 L 129 L 126 L (137-145) mmol/L 05/04/21 Range/Units 07:30 RBC 3.92 L (4.30-5.90) m/uL MCV 100.1 H (80.0-100.0) fL MCH 35.2 H (25.0-35.0) pg Sodium (137-145) mmol/L Assessment and Plan Plan: Assessment: 1. Hypervolemic hyponatremia. Status post [facility] May 02. Sodium level 126 as of last night. Urine osmolality 243 and urine sodium less than 10. TSH and cortisol normal. 2. Benign hypertension. Stable. 3. Lower extremity edema. 4. Chronic alcohol abuse. Plan: Add Lasix 40 mg orally once daily starting tomorrow. Encouraged oral intake. Advised patient to maintain 40-45 ounce fluid restriction per day upon discharge. Follow-up outpatient in 1 week. Morning labs pending.
[2021-05-04 09:34] LABS: ALT 30 U/L (4-49); Alkaline Phosphatase 102 U/L (38-126)
[2021-05-04] MEDS: PREGABALIN 75 MG CAP PO SCH ×2 (10:15→20:15)
[2021-05-04] MEDS: LOSARTAN 50 MG TAB PO SCH (10:15)
[2021-05-04] MEDS: DULoxetine HCL 30 MG CAPSULE.DR PO SCH (10:15)
[2021-05-04] MEDS: MEMANTINE 5 MG TAB PO SCH ×2 (10:15→20:15)
[2021-05-04 11:51] LABS: ALT 30 U/L (4-49); AST 74 U/L (17-59); African American GFR (CKD) >90 (>60 ml/min/1.73 sqM); Alkaline Phosphatase 98 U/L (38-126); Anion Gap 5 mmol/L; Blood Urea Nitrogen 9 mg/dL (9-20); Calcium 8.8 mg/dL (8.4-10.2); Carbon Dioxide 30 mmol/L (22-30); Chloride 94 mmol/L (98-107); Glucose 130 mg/dL (74-99); Non-African American GFR(CKD) >90 (>60 ml/min/1.73 sqM); Potassium 3.8 mmol/L (3.5-5.1); Sodium 129 mmol/L (137-145); Total Bilirubin 0.6 mg/dL (0.2-1.3); Total Protein 5.7 g/dL (6.3-8.2)
[2021-05-04] MEDS: ACETAMINOPHEN TAB 325 MG TAB PO PRN (16:43)
[2021-05-04] MEDS: FAMOTIDINE 20 MG TAB PO SCH (20:15)
[2021-05-05 08:16] LABS: African American GFR (CKD) >90 (>60 ml/min/1.73 sqM); Anion Gap 8 mmol/L; Blood Urea Nitrogen 11 mg/dL (9-20); Calcium 9.2 mg/dL (8.4-10.2); Carbon Dioxide 25 mmol/L (22-30); Chloride 96 mmol/L (98-107); Glucose 137 mg/dL (74-99); Magnesium 2.1 mg/dL (1.6-2.3); Non-African American GFR(CKD) >90 (>60 ml/min/1.73 sqM); Potassium 3.9 mmol/L (3.5-5.1); Sodium 129 mmol/L (137-145)
[2021-05-05] MEDS: HEPARIN SODIUM,PORCINE/PF 5,000 UNIT/0.5 ML SYRINGE SQ SCH ×2 (09:02→17:10)
[2021-05-05] MEDS: MEMANTINE 5 MG TAB PO SCH ×2 (09:03→20:28)
[2021-05-05] MEDS: FUROSEMIDE 40 MG TAB PO SCH (09:03)
[2021-05-05] MEDS: LOSARTAN 50 MG TAB PO SCH (09:03)
[2021-05-05] MEDS: DULoxetine HCL 30 MG CAPSULE.DR PO SCH (09:03)
[2021-05-05] MEDS: PREGABALIN 75 MG CAP PO SCH ×2 (09:11→20:28)
--- NOTE | 2021-05-05 09:17 | P.PN ---
Subjective Patient is seen in follow-up for hyponatremia. Sodium level stable at 129 today. On oral Lasix. Denies chest pain or shortness of breath. Edema improving. Vital signs are stable. General: The patient appeared well nourished and normally developed. HEENT: Head exam is unremarkable. Neck is without jugular venous distension. LUNGS: Breath sounds decreased. HEART: Rate and Rhythm are regular. ABDOMEN: Soft, obese. EXTREMITITES: 1+ edema. Chronic changes noted. Objective - Vital Signs Vital signs: Vital Signs Temp 97.9 F 05/05/21 04:00 Pulse 73 05/05/21 04:00 Resp 18 05/05/21 04:00 BP 111/73 05/05/21 04:00 Pulse Ox 95 05/05/21 04:00 Intake & Output 05/04/21 05/05/21 05/05/21 18:59 06:59 18:59 Intake Total 1200 10 Output Total 1050 300 Balance 150 -290 Weight 151.1 kg Intake: IV 10 Invasive Line 2 10 Oral 1200 Output: Urine 1050 300 Other: Voiding Method Toilet Toilet # Voids 2 # Bowel Movements 1 - Labs CBC & Chem 7: 05/04/21 07:30 05/05/21 07:33 Labs: Abnormal Lab Results - Last 24 Hours (Table) 05/04/21 05/05/21 Range/Units 11:25 07:33 Sodium 129 L 129 L (137-145) mmol/L Chloride 94 L 96 L (98-107) mmol/L Glucose 130 H 137 H (74-99) mg/dL AST 74 H (17-59) U/L Total Protein 5.7 L (6.3-8.2) g/dL Albumin 3.0 L (3.5-5.0) g/dL Assessment and Plan Plan: Assessment: 1. Hypervolemic hyponatremia. Status post [facility] May 02. Sodium level 129. Urine osmolality 243 and urine sodium less than 10. TSH and cortisol normal. 2. Benign hypertension. Stable. 3. Lower extremity edema. Improving with diuresis. 4. Chronic alcohol abuse. Plan: Maintain oral Lasix. Encouraged oral intake. Advised patient to maintain 40-45 ounce fluid restriction per day upon discharge. Follow-up outpatient in 1 week.
[2021-05-05] MEDS: HYDROcodone/APAP 7.5-325MG 1 EACH TAB PO PRN ×2 (14:39→21:15)
--- NOTE | 2021-05-05 15:25 | P.PN ---
Subjective Progress Note Date: 05/04/21 HISTORY OF PRESENT ILLNESS: This is a 70-year-old male one of my patient with a previous medical history significant for hypertension and hypertensive cardiovascular disease, hyperlipidemia, obesity with obstructive sleep apnea, history of chronic alcohol use and dependence with the peripheral neuropathy, significant spondylosis of the lumbar spine with spinal stenosis and significant chronic low back pain, patient presented to the emergency department at [facility] yesterday because of increased swelling in both lower extremities and increased pain in both of them that has been going on for quite some time, patient was hospitalized last at [facility] back in January 2021 and he signed himself AGAINST MEDICAL ADVICE at that time, he has not been following up with me in the office at this time he has not been taking his medication, he showed up to the ER with increased swelling in both lower extremities and he was found to have a significant hyponatremia initially it appears to be related to hypovolemia and patient was placed on IV fluid resuscitation but today his sodium is lower at 118 and his chloride is low as well, we will check serum osmolarity, urine osmolarity, urine sodium, cortisol level, TSH and free T4 as well as uric acid level, we'll place nephrology consultation to assist in the treatment of hyponatremia, we will start the patient on Lasix 40 mg IV push every 12 hours, and Hep-Lock his IV 05/03: Patient is laying down in bed in no current distress, he was seen yesterday in consultation by nephrology, I reviewed his labs and his serum osmolarity was 250, he was placed on fluid restriction to 800 mL every 24 hours, continue Lasix 40 mg IV push every 12 hours, his sodium is much better today at 129, we'll continue current treatment plan, follow-up with the patient in the next 24 hours. Physical therapy evaluation for possible subacute rehabilitation as well as geriatric social work professor consultation 05/04: Patient is sitting up at the edge of the bed, he continues to have some headache, he continues to have a bit dizzy spell today, he did receive D5 W by nephrology because of a fast correction of his sodium and he did drop down 26, and now he is back up to 129, patient is feeling a lot better he would be started back on Lasix 40 mg orally twice every day and the next 24 hours. Continue fluid resection, continue to follow the patient very closely, physical therapy evaluation for possible subacute rehabilitation per REVIEW OF SYSTEMS: Constitutional: No documented fever, no chills, no night sweats. No weight change. positive for weakness weakness, fatigue or lethargy. Positive for daytime sleepiness. HEENT: No headache. No blurred vision or double vision, no loss of vision. No loss of Hearing, no ringing in the ears, no dizziness. No nasal drainage or congestion. No epistaxis. No sore throat. Lungs: No shortness of breath, no cough, no sputum production. No wheezing. Reports dyspnea with activity. Cardiovascular: No chest pain, positive for lower extremity edema. No palpitations. No paroxysmal nocturnal dyspnea. No orthopnea. No lightheadedness or dizziness. No syncopal episodes.Positive for nocturia. Abdominal: No abdominal pain. No nausea, vomiting. No diarrhea. No constipation. No bloody or tarry stools . No loss of appetite. Genitourinary: No dysuria, increased frequency, urgency. No urinary retention. Musculoskeletal: positive for neck pain, positive for chronic low back pain, positive for significant pain in both lower extremities with significant neuropathy, positive for gait dysfunction. Integumentary: Positive for venous ulcerations of both lower extremities , no lesions. No rash or pruritus. No unusual bruising. Does appear to have seborrheic dermatitis Neurologic: No aphasia. No facial droop. Memory loss. No head injury. No headache, positive for paresthesia in both lower x-rays. Psychiatric: Patient does appear to be somewhat depressed, appears to be a bit anxious, no suicidal thoughts or ideation. Endocrine: No abnormal blood sugars, increased weight. PHYSICAL EXAMINATION: General: this is a 70-year-old male who is laying down in bed does not appear to be in acute distress. HEENT: Head is atraumatic, normocephalic, pupils were equal round reactive to light and recommendation, extraocular muscle movement were intact, sclera nonicteric, conjunctivae were pale, mucous membranes of the mouth are somewhat dry. Neck: Supple, no JVP, normal carotid upstroke bilaterally, no lymphadenopathy. Chest: Decreased breath sounds at the bases, few rhonchi, no expiratory wheezes, no chest wall tenderness, no intercostal retractions. Heart: First heart sound is normal, second heart sound is normal there is systolic ejection murmur 2/6 located in the left sternal border. Abdomen: Soft, nontender, nondistended, positive bowel sounds. Extremities: There is significant venous stasis of both lower extremity is with increased erythema and venous ulceration with significant tenderness to palpation, with a chronic skin changes dorsalis pedis +1 bilaterally poor foot hygiene. Neurologic examination: Patient is awake alert and oriented X 3, cranial nerves II-12 appear grossly intact, muscle power were 4 out of 5 in upper extremities and 3out of 5 in bilateral lower extremities, deep tendon reflexes were depressed bilaterally. ASSESSMENT AND PLAN: 1. Hyponatremia secondary to hypervolemia. Hep-Lock his IV continue Lasix 40 mg orally every 24 hours, monitor the patient serum sodium level continue fluid resection at 800 mL every 24 hours. 2. Bilateral lower extremity venous stasis with venous ulceration . venous Doppler was negative for DVT, continue with local care patient will need bilateral Rocky wrap to both lower extremities along with Silvadene cream 1%. 3. Hypertension and hypertensive cardiovascular disease. restart the patient on losartan 50 mg orally once every day. 4. Hyperlipidemia. with that, monitor lipid panel, keep LDL 55-70. 5. Vascular dementia. We will continue Namenda 5 mg po bid 6. Chronic alcohol use and dependence. Patient was advised to be abstinent from alcohol. 7. 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 Continue [place] 10/325 mg 1 tablet every 6 hours as needed. 8. Bilateral lower extremity neuropathy continue patient on Lyrica 150 mg oral ly twice every day. 9. Depression. Continue patient on Cymbalta 30 mg orally once every day. 10. DVT prophylaxis. Continue heparin 5000 units subcutaneously every 8 hours. 11. GI prophylaxis. Continue Pepcid 20 mg orally once every day. 12. Physical therapy evaluation. For possible subacute rehabilitation. 13. painting and coating worker consultation for discharge planning. Objective - Vital Signs Vital signs: Vital Signs Temp 97.4 F L 05/04/21 11:42 Pulse 81 05/04/21 11:42 Resp 18 05/04/21 11:42 BP 131/56 05/04/21 11:42 Pulse Ox 97 05/04/21 11:42 Intake & Output 05/03/21 05/04/21 05/04/21 18:59 06:59 18:59 Intake Total 1170 480 Output Total 2100 1550 675 Balance -930 -1550 -195 Weight 151.7 kg 150.5 kg Intake: Oral 1170 480 Output: Urine 2100 1550 675 Other: Voiding Method Toilet Toilet Toilet Urinal Urinal # Voids 1 # Bowel Movements 1 - Labs CBC & Chem 7: 05/04/21 07:30 05/05/21 07:33 Labs: Abnormal Lab Results - Last 24 Hours (Table) 05/03/21 05/03/21 05/03/21 Range/Units 13:05 16:34 20:07 RBC (4.30-5.90) m/uL MCV (80.0-100.0) fL MCH (25.0-35.0) pg Sodium 128 L 129 L 126 L (137-145) mmol/L Chloride (98-107) mmol/L Glucose (74-99) mg/dL AST (17-59) U/L Total Protein (6.3-8.2) g/dL Albumin (3.5-5.0) g/dL 05/04/21 05/04/21 Range/Units 07:30 11:25 RBC 3.92 L (4.30-5.90) m/uL MCV 100.1 H (80.0-100.0) fL MCH 35.2 H (25.0-35.0) pg Sodium 129 L (137-145) mmol/L Chloride 94 L (98-107) mmol/L Glucose 130 H (74-99) mg/dL AST 74 H (17-59) U/L Total Protein 5.7 L (6.3-8.2) g/dL Albumin 3.0 L (3.5-5.0) g/dL
--- NOTE | 2021-05-05 15:27 | P.PN ---
Subjective Progress Note Date: 05/05/21 HISTORY OF PRESENT ILLNESS: This is a 70-year-old male one of my patient with a previous medical history significant for hypertension and hypertensive cardiovascular disease, hyperlipidemia, obesity with obstructive sleep apnea, history of chronic alcohol use and dependence with the peripheral neuropathy, significant spondylosis of the lumbar spine with spinal stenosis and significant chronic low back pain, patient presented to the emergency department at [facility] yesterday because of increased swelling in both lower extremities and increased pain in both of them that has been going on for quite some time, patient was hospitalized last at [facility] back in January 2021 and he signed himself AGAINST MEDICAL ADVICE at that time, he has not been following up with me in the office at this time he has not been taking his medication, he showed up to the ER with increased swelling in both lower extremities and he was found to have a significant hyponatremia initially it appears to be related to hypovolemia and patient was placed on IV fluid resuscitation but today his sodium is lower at 118 and his chloride is low as well, we will check serum osmolarity, urine osmolarity, urine sodium, cortisol level, TSH and free T4 as well as uric acid level, we'll place nephrology consultation to assist in the treatment of hyponatremia, we will start the patient on Lasix 40 mg IV push every 12 hours, and Hep-Lock his IV 05/03: Patient is laying down in bed in no current distress, he was seen yesterday in consultation by nephrology, I reviewed his labs and his serum osmolarity was 250, he was placed on fluid restriction to 800 mL every 24 hours, continue Lasix 40 mg IV push every 12 hours, his sodium is much better today at 129, we'll continue current treatment plan, follow-up with the patient in the next 24 hours. Physical therapy evaluation for possible subacute rehabilitation as well as socially responsible investment adviser consultation 05/04: Patient is sitting up at the edge of the bed, he continues to have some headache, he continues to have a bit dizzy spell today, he did receive D5 W by nephrology because of a fast correction of his sodium and he did drop down 26, and now he is back up to 129, patient is feeling a lot better he would be started back on Lasix 40 mg orally twice every day and the next 24 hours. Continue fluid resection, continue to follow the patient very closely, physical therapy evaluation for possible subacute rehabilitation per 05/05: Patient sitting on the edge of the bed, his feeling a bit better today, he slept better last night, he continues to have some pain in the lower back, Tylenol was not getting it, he would be started on [place] 7.5/325 one tablet orally every 8 hours as needed, physical therapy to reevaluate the patient today, his sodium today is 129, monitor the patient elect right for a closely, continue fluid restriction, continue Lasix 40 mg once every day, monitor the patient for another 24 hours hopefully will be discharged to subacute rehabilitation tomorrow morning. REVIEW OF SYSTEMS: Constitutional: No documented fever, no chills, no night sweats. No weight change. positive for weakness weakness, fatigue or lethargy. Positive for daytime sleepiness. HEENT: No headache. No blurred vision or double vision, no loss of vision. No loss of Hearing, no ringing in the ears, no dizziness. No nasal drainage or congestion. No epistaxis. No sore throat. Lungs: No shortness of breath, no cough, no sputum production. No wheezing. Reports dyspnea with activity. Cardiovascular: No chest pain, positive for lower extremity edema. No palpitations. No paroxysmal nocturnal dyspnea. No orthopnea. No lightheadedne ss or dizziness. No syncopal episodes.Positive for nocturia. Abdominal: No abdominal pain. No nausea, vomiting. No diarrhea. No constipation. No bloody or tarry stools . No loss of appetite. Genitourinary: No dysuria, increased frequency, urgency. No urinary retention. Musculoskeletal: positive for neck pain, positive for chronic low back pain, positive for significant pain in both lower extremities with significant neuropathy, positive for gait dysfunction. Integumentary: Positive for venous ulcerations of both lower extremities , no lesions. No rash or pruritus. No unusual bruising. Does appear to have seborrheic dermatitis Neurologic: No aphasia. No facial droop. Memory loss. No head injury. No headache, positive for paresthesia in both lower x-rays. Psychiatric: Patient does appear to be somewhat depressed, appears to be a bit anxious, no suicidal thoughts or ideation. Endocrine: No abnormal blood sugars, increased weight. PHYSICAL EXAMINATION: General: this is a 70-year-old male who is laying down in bed does not appear to be in acute distress. HEENT: Head is atraumatic, normocephalic, pupils were equal round reactive to light and recommendation, extraocular muscle movement were intact, sclera nonicteric, conjunctivae were pale, mucous membranes of the mouth are somewhat dry. Neck: Supple, no JVP, normal carotid upstroke bilaterally, no lymphadenopathy. Chest: Decreased breath sounds at the bases, few rhonchi, no expiratory wheezes, no chest wall tenderness, no intercostal retractions. Heart: First heart sound is normal, second heart sound is normal there is systolic ejection murmur 2/6 located in the left sternal border. Abdomen: Soft, nontender, nondistended, positive bowel sounds. Extremities: There is significant venous stasis of both lower extremity is with increased erythema and venous ulceration with significant tenderness to palpation, with a chronic skin changes dorsalis pedis +1 bilaterally poor foot hygiene. Neurologic examination: Patient is awake alert and oriented X 3, cranial nerves II-12 appear grossly intact, muscle power were 4 out of 5 in upper extremities and 3out of 5 in bilateral lower extremities, deep tendon reflexes were depressed bilaterally. ASSESSMENT AND PLAN: 1. Hyponatremia secondary to hypervolemia. m continue Lasix 40 mg orally once every day,onitor the patient serum sodium level continue fluid restrictions. 2 . Bilateral lower extremity venous stasis with venous ulceration . venous Doppler was negative for DVT, continue with local care patient will need bilateral Rocky wrap to both lower extremities along with Silvadene cream 1%. 3. Hypertension and hypertensive cardiovascular disease. restart the patient on losartan 50 mg orally once every day. 4. Hyperlipidemia. with that, monitor lipid panel, keep LDL 55-70. 5. Vascular dementia. We will continue Namenda 5 mg po bid 6. Chronic alcohol use and dependence. Patient was advised to be abstinent from alcohol. 7. 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 Continue Roma 10/325 mg 1 tablet every 6 hours as needed. 8. Bilateral lower extremity neuropathy continue patient on Lyrica 150 mg orally twice every day. 9. Depression. Continue patient on Cymbalta 30 mg orally once every day. 10. DVT prophylaxis. Continue heparin 5000 units subcutaneously every 8 hours. 11. GI prophylaxis. Continue Pepcid 20 mg orally once every day. 12. Physical therapy evaluation. for subacute rehabilitation 13. novelty worker consultation for discharge planning. 14. Discharge home tomorrow morning. Objective - Vital Signs Vital signs: Vital Signs Temp 97.9 F 05/05/21 04:00 Pulse 73 05/05/21 04:00 Resp 18 05/05/21 04:00 BP 111/73 05/05/21 04:00 Pulse Ox 95 05/05/21 04:00 Intake & Output 05/04/21 05/05/21 05/05/21 18:59 06:59 18:59 Intake Total 1200 10 Output Total 1050 300 Balance 150 -290 Weight 151.1 kg Intake: IV 10 Invasive Line 2 10 Oral 1200 Output: Urine 1050 300 Other: Voiding Method Toilet Toilet # Voids 2 # Bowel Movements 1 - Labs CBC & Chem 7: 05/04/21 07:30 05/05/21 07:33 Labs: Abnormal Lab Results - Last 24 Hours (Table) 05/04/21 05/04/21 Range/Units 07:30 11:25 RBC 3.92 L (4.30-5.90) m/uL MCV 100.1 H (80.0-100.0) fL MCH 35.2 H (25.0-35.0) pg Sodium 129 L (137-145) mmol/L Chloride 94 L (98-107) mmol/L Glucose 130 H (74-99) mg/dL AST 74 H (17-59) U/L Total Protein 5.7 L (6.3-8.2) g/dL Albumin 3.0 L (3.5-5.0) g/dL
[2021-05-05] MEDS: FAMOTIDINE 20 MG TAB PO SCH (20:28)
[2021-05-06] MEDS: HEPARIN SODIUM,PORCINE/PF 5,000 UNIT/0.5 ML SYRINGE SQ SCH ×4 (00:06→23:56)
[2021-05-06 07:34] LABS: Basophils # (A) 0.1 k/uL (0-0.2); Basophils % (A) 1 %; Eosinophils # (A) 0.4 k/uL (0-0.7); Eosinophils % (A) 5 %; Lymphocytes # (A) 1.7 k/uL (1.0-4.8); Lymphocytes % (A) 22 %; MCH 33.9 pg (25.0-35.0); MCHC 33.3 g/dL (31.0-37.0); MCV 101.7 fL (80.0-100.0); Macrocytosis Slight; Mean Platelet Volume 6.5; Monocytes # (A) 0.6 k/uL (0-1.0); Monocytes % (A) 7 %; Neutrophils % (A) 63 %; Platelet Count 295 k/uL (150-450); RBC 4.13 m/uL (4.30-5.90); RDW 13.8 % (11.5-15.5)
[2021-05-06 07:50] LABS: ALT 38 U/L (4-49); AST 90 U/L (17-59); African American GFR (CKD) >90 (>60 ml/min/1.73 sqM); Albumin 3.4 g/dL (3.5-5.0); Alkaline Phosphatase 107 U/L (38-126); Anion Gap 5 mmol/L; Blood Urea Nitrogen 12 mg/dL (9-20); Calcium 9.2 mg/dL (8.4-10.2); Carbon Dioxide 30 mmol/L (22-30); Chloride 94 mmol/L (98-107); Glucose 113 mg/dL (74-99); Non-African American GFR(CKD) >90 (>60 ml/min/1.73 sqM); Potassium 4.1 mmol/L (3.5-5.1); Sodium 129 mmol/L (137-145); Total Bilirubin 0.8 mg/dL (0.2-1.3); Total Protein 6.1 g/dL (6.3-8.2)
--- NOTE | 2021-05-06 08:02 | P.DS ---
Providers Date of admission: 05/01/21 21:14 Expected date of discharge: 05/07/21 Attending physician: Johnny Lane Consults: 05/02/21 10:41 Consult Physician Routine Consulting Provider: Giovana Thomas Consult Reason/Comments: Hyponatremia Do you want consulting provider notified?: Yes Primary care physician: Johnny Lane Hospital Course: HISTORY OF PRESENT ILLNESS: This is a 70-year-old male one of my patient with a previous medical history significant for hypertension and hypertensive cardiovascular disease, hyperlipidemia, obesity with obstructive sleep apnea, history of chronic alcohol use and dependence with the peripheral neuropathy, significant spondylosis of the lumbar spine with spinal stenosis and significant chronic low back pain, patient presented to the emergency department at [facility] yesterday because of increased swelling in both lower extremities and increased pain in both of them that has been going on for quite some time, patient was hospitalized last at [facility] back in January 2021 and he signed himself AGAINST MEDICAL ADVICE at that time, he has not been following up with me in the office at this time he has not been taking his medication, he showed up to the ER with increased swelling in both lower extremities and he was found to have a significant hyponatremia initially it appears to be related to hypovolemia and patient was placed on IV fluid resuscitation but today his sodium is lower at 118 and his chloride is low as well, we will check serum osmolarity, urine osmolarity, urine sodium, cortisol level, TSH and free T4 as well as uric acid level, we'll place nephrology consultation to assist in the treatment of hyponatremia, we will start the patient on Lasix 40 mg IV push every 12 hours, and Hep-Lock his IV 05/03: Patient is laying down in bed in no current distress, he was seen yesterday in consultation by nephrology, I reviewed his labs and his serum osmolarity was 250, he was placed on fluid restriction to 800 mL every 24 hours, continue Lasix 40 mg IV push every 12 hours, his sodium is much better today at 129, we'll continue current treatment plan, follow-up with the patient in the next 24 hours. Physical therapy evaluation for possible subacute rehabilitation as well as social service liaison consultation 05/04: Patient is sitting up at the edge of the bed, he continues to have some headache, he continues to have a bit dizzy spell today, he did receive D5 W by nephrology because of a fast correction of his sodium and he did drop down 26, and now he is back up to 129, patient is feeling a lot better he would be started back on Lasix 40 mg orally twice every day and the next 24 hours. Continue fluid resection, continue to follow the patient very closely, physical therapy evaluation for possible subacute rehabilitation per 05/05: Patient sitting on the edge of the bed, his feeling a bit better today, he slept better last night, he continues to have some pain in the lower back, Tyl enol was not getting it, he would be started on [place] 7.5/325 one tablet orally every 8 hours as needed, physical therapy to reevaluate the patient today, his sodium today is 129, monitor the patient elect right for a closely, continue fluid restriction, continue Lasix 40 mg once every day, monitor the patient for another 24 hours hopefully will be discharged to subacute rehabilitation tomorrow morning. Discharge diagnoses: 1. Hyponatremia secondary to hypervolemia. 2 . Bilateral lower extremity venous stasis with venous ulceration . 3. Hypertension and hypertensive cardiovascular disease. 4. Hyperlipidemia. 5. Vascular dementia. 6. Chronic alcohol use and dependence. 7. 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 8. Bilateral lower extremity neuropathy 9. Depression. Patient Condition at Discharge: Fair Plan - Discharge Summary Discharge Rx Participant: Yes New Discharge Prescriptions: No Action Pregabalin [Lyrica] 150 mg PO BID Memantine [Namenda] 5 mg PO DAILY amLODIPine [Norvasc] 5 mg PO DAILY Furosemide [Lasix] 40 mg PO DAILY No Known Home Medications Potassium Chloride [Klor-Con 20] 20 meq PO DAILY Losartan Potassium 50 mg PO DAILY Discharge Medication List No Known Home Medications 05/01/21 [History] Furosemide [Lasix] 40 mg PO DAILY 05/06/21 [History] Losartan Potassium 50 mg PO DAILY 05/06/21 [History] Memantine [Namenda] 5 mg PO DAILY 05/06/21 [History] Potassium Chloride [Klor-Con 20] 20 meq PO DAILY 05/06/21 [History] Pregabalin [Lyrica] 150 mg PO BID 05/06/21 [History] amLODIPine [Norvasc] 5 mg PO DAILY 05/06/21 [History] Follow up Appointment(s)/Referral(s): Johnny Lane MD [Primary Care Provider] - 1 Week
[2021-05-06] MEDS: HYDROcodone/APAP 7.5-325MG 1 EACH TAB PO PRN ×2 (09:10→20:38)
[2021-05-06] MEDS: PREGABALIN 75 MG CAP PO SCH ×2 (09:11→20:40)
[2021-05-06] MEDS: LOSARTAN 50 MG TAB PO SCH (09:11)
[2021-05-06] MEDS: FUROSEMIDE 40 MG TAB PO SCH (09:11)
[2021-05-06] MEDS: MEMANTINE 5 MG TAB PO SCH ×2 (09:11→20:58)
[2021-05-06] MEDS: DULoxetine HCL 30 MG CAPSULE.DR PO SCH (09:11)
--- NOTE | 2021-05-06 10:00 | P.PN ---
Subjective Patient is seen in follow-up for hyponatremia. Sodium level stable at 129 today. On oral Lasix. Denies chest pain or shortness of breath. Edema improving. Vital signs are stable. General: The patient appeared well nourished and normally developed. HEENT: Head exam is unremarkable. Neck is without jugular venous distension. LUNGS: Breath sounds decreased. HEART: Rate and Rhythm are regular. ABDOMEN: Soft, obese. EXTREMITITES: 1+ edema. Chronic changes noted. Objective - Vital Signs Vital signs: Vital Signs Temp 97.8 F 05/06/21 04:00 Pulse 70 05/06/21 08:00 Resp 16 05/06/21 08:00 BP 135/60 05/06/21 08:00 Pulse Ox 95 05/06/21 08:00 Intake & Output 05/05/21 05/06/21 05/06/21 18:59 06:59 18:59 Intake Total 720 240 Output Total 400 760 Balance 320 -760 240 Weight 156 kg Intake: Oral 720 240 Output: Urine 400 760 Other: Voiding Method Toilet Toilet # Voids 2 # Bowel Movements 1 - Labs CBC & Chem 7: 05/06/21 06:55 05/06/21 06:55 Labs: Abnormal Lab Results - Last 24 Hours (Table) 05/06/21 05/06/21 Range/Units 06:55 06:55 RBC 4.13 L (4.30-5.90) m/uL MCV 101.7 H (80.0-100.0) fL Sodium 129 L (137-145) mmol/L Chloride 94 L (98-107) mmol/L Glucose 113 H (74-99) mg/dL AST 90 H (17-59) U/L Total Protein 6.1 L (6.3-8.2) g/dL Albumin 3.4 L (3.5-5.0) g/dL Assessment and Plan Plan: Assessment: 1. Hypervolemic hyponatremia. Status post [facility] May 02. Sodium level 129. Urine osmolality 243 and urine sodium less than 10. TSH and cortisol normal. 2. Benign hypertension. Stable. 3. Lower extremity edema. Improving with diuresis. 4. Chronic alcohol abuse. Plan: Maintain oral Lasix. Encouraged oral intake. Maintain 1500 mL fluid restriction. Per the nurse, he is not abiding by this. Advised patient to maintain 40-45 ounce fluid restriction per day upon discharge. Follow-up outpatient in 1 week.
--- NOTE | 2021-05-06 17:30 | P.PN ---
Subjective Progress Note Date: 05/06/21 HISTORY OF PRESENT ILLNESS: This is a 70-year-old male one of my patient with a previous medical history significant for hypertension and hypertensive cardiovascular disease, hyperlipidemia, obesity with obstructive sleep apnea, history of chronic alcohol use and dependence with the peripheral neuropathy, significant spondylosis of the lumbar spine with spinal stenosis and significant chronic low back pain, patient presented to the emergency department at [facility] yesterday because of increased swelling in both lower extremities and increased pain in both of them that has been going on for quite some time, patient was hospitalized last at [facility] back in January 2021 and he signed himself AGAINST MEDICAL ADVICE at that time, he has not been following up with me in the office at this time he has not been taking his medication, he showed up to the ER with increased swelling in both lower extremities and he was found to have a significant hyponatremia initially it appears to be related to hypovolemia and patient was placed on IV fluid resuscitation but today his sodium is lower at 118 and his chloride is low as well, we will check serum osmolarity, urine osmolarity, urine sodium, cortisol level, TSH and free T4 as well as uric acid level, we'll place nephrology consultation to assist in the treatment of hyponatremia, we will start the patient on Lasix 40 mg IV push every 12 hours, and Hep-Lock his IV 05/03: Patient is laying down in bed in no current distress, he was seen yesterday in consultation by nephrology, I reviewed his labs and his serum osmolarity was 250, he was placed on fluid restriction to 800 mL every 24 hours, continue Lasix 40 mg IV push every 12 hours, his sodium is much better today at 129, we'll continue current treatment plan, follow-up with the patient in the next 24 hours. Physical therapy evaluation for possible subacute rehabilitation as well as social studies teacher consultation 05/04: Patient is sitting up at the edge of the bed, he continues to have some headache, he continues to have a bit dizzy spell today, he did receive D5 W by nephrology because of a fast correction of his sodium and he did drop down 26, and now he is back up to 129, patient is feeling a lot better he would be started back on Lasix 40 mg orally twice every day and the next 24 hours. Continue fluid resection, continue to follow the patient very closely, physical therapy evaluation for possible subacute rehabilitation per 05/05: Patient sitting on the edge of the bed, his feeling a bit better today, he slept better last night, he continues to have some pain in the lower back, Tylenol was not getting it, he would be started on [place] 7.5/325 one tablet orally every 8 hours as needed, physical therapy to reevaluate the patient today, his sodium today is 129, monitor the patient elect right for a closely, continue fluid restriction, continue Lasix 40 mg once every day, monitor the patient for another 24 hours hopefully will be discharged to subacute rehabilitation tomorrow morning. 05/06: patient is sitting up in bed is feeling a bit better, he denies any chest pain, shortness breath, he continues to have some swelling in both lower ex tremity is, he was seen by physical therapy recommended for the patient to go for physical therapy for 2 weeks, patient was okay to be discharged home however he stated that he could not have a ride and he would be getting out of hospital tomorrow morning REVIEW OF SYSTEMS: Constitutional: No documented fever, no chills, no night sweats. No weight change. positive for weakness weakness, fatigue or lethargy. Positive for daytime sleepiness. HEENT: No headache. No blurred vision or double vision, no loss of vision. No loss of Hearing, no ringing in the ears, no dizziness. No nasal drainage or congestion. No epistaxis. No sore throat. Lungs: No shortness of breath, no cough, no sputum production. No wheezing. Reports dyspnea with activity. Cardiovascular: No chest pain, positive for lower extremity edema. No palpitations. No paroxysmal nocturnal dyspnea. No orthopnea. No l ightheadedness or dizziness. No syncopal episodes.Positive for nocturia. Abdominal: No abdominal pain. No nausea, vomiting. No diarrhea. No constipation. No bloody or tarry stools . No loss of appetite. Genitourinary: No dysuria, increased frequency, urgency. No urinary retention. Musculoskeletal: positive for neck pain, positive for chronic low back pain, positive for significant pain in both lower extremities with significant neuropathy, positive for gait dysfunction. Integumentary: Positive for venous ulcerations of both lower extremities , no lesions. No rash or pruritus. No unusual bruising. Does appear to have seborrheic dermatitis Neurologic: No aphasia. No facial droop. Memory loss. No head injury. No headache, positive for paresthesia in both lower x-rays. Psychiatric: Patient does appear to be somewhat depressed, appears to be a bit anxious, no suicidal thoughts or ideation. Endocrine: No abnormal blood sugars, increased weight. PHYSICAL EXAMINATION: General: this is a 70-year-old male who is laying down in bed does not appear to be in acute distress. HEENT: Head is atraumatic, normocephalic, pupils were equal round reactive to light and recommendation, extraocular muscle movement were intact, sclera nonicteric, conjunctivae were pale, mucous membranes of the mouth are somewhat dry. Neck: Supple, no JVP, normal carotid upstroke bilaterally, no lymphadenopathy. Chest: Decreased breath sounds at the bases, few rhonchi, no expiratory wheezes, no chest wall tenderness, no intercostal retractions. Heart: First heart sound is normal, second heart sound is normal there is systolic ejection murmur 2/6 located in the left sternal border. Abdomen: Soft, nontender, nondistended, positive bowel sounds. Extremities: There is significant venous stasis of both lower extremity is with increased erythema and venous ulceration with significant tenderness to palpation, with a chronic skin changes dorsalis pedis +1 bilaterally poor foot hygiene. Neurologic examination: Patient is awake alert and oriented X 3, cranial nerves II-12 appear grossly intact, muscle power were 4 out of 5 in upper extremities and 3out of 5 in bilateral lower extremities, deep tendon reflexes were depressed bilaterally. ASSESSMENT AND PLAN: 1. Hyponatremia secondary to hypervolemia. m continue Lasix 40 mg orally once every day,onitor the patient serum sodium level continue fluid restrictions. 2 . Bilateral lower extremity venous stasis with venous ulceration . venous Doppler was negative for DVT, continue with local care patient will need dilip ateral Rocky wrap to both lower extremities along with Silvadene cream 1%. 3. Hypertension and hypertensive cardiovascular disease. restart the patient on losartan 50 mg orally once every day. 4. Hyperlipidemia. with that, monitor lipid panel, keep LDL 55-70. 5. Vascular dementia. We will continue Namenda 5 mg po bid 6. Chronic alcohol use and dependence. Patient was advised to be abstinent from alcohol. 7. 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 Continue [place] 10/325 mg 1 tablet every 6 hours as needed. 8. Bilateral lower extremity neuropathy continue patient on Lyrica 150 mg orally twice every day. 9. Depression. Continue patient on Cymbalta 30 mg orally once every day. 10. DVT prophylaxis. Continue heparin 5000 units subcutaneously every 8 hours. 11. GI prophylaxis. Continue Pepcid 20 mg orally once every day. 12. Physical therapy evaluation. for subacute rehabilitation 13. feed elevator worker consultation for discharge planning. 14. Discharge to [facility] tomorrow morning. Objective - Vital Signs Vital signs: Vital Signs Temp 97.8 F 05/06/21 04:00 Pulse 68 05/06/21 16:00 Resp 16 05/06/21 16:00 BP 145/68 05/06/21 16:00 Pulse Ox 97 05/06/21 16:00 Intake & Output 05/05/21 05/06/21 05/06/21 18:59 06:59 18:59 Intake Total 720 480 Output Total 400 760 Balance 320 -760 480 Weight 156 kg Intake: Oral 720 480 Output: Urine 400 760 Other: Voiding Method Toilet Toilet Toilet # Voids 2 # Bowel Movements 1 - Labs CBC & Chem 7: 05/06/21 06:55 05/06/21 06:55 Labs: Abnormal Lab Results - Last 24 Hours (Table) 05/06/21 05/06/21 Range/Units 06:55 06:55 RBC 4.13 L (4.30-5.90) m/uL MCV 101.7 H (80.0-100.0) fL Sodium 129 L (137-145) mmol/L Chloride 94 L (98-107) mmol/L Glucose 113 H (74-99) mg/dL AST 90 H (17-59) U/L Total Protein 6.1 L (6.3-8.2) g/dL Albumin 3.4 L (3.5-5.0) g/dL
[2021-05-06] MEDS: FAMOTIDINE 20 MG TAB PO SCH (20:58)
[2021-05-07 05:37] VITALS: RESP 18
[2021-05-07] MEDS: HYDROcodone/APAP 7.5-325MG 1 EACH TAB PO PRN (06:54)
[2021-05-07] MEDS: HEPARIN SODIUM,PORCINE/PF 5,000 UNIT/0.5 ML SYRINGE SQ SCH (06:55)
[2021-05-07] MEDS: MEMANTINE 5 MG TAB PO SCH (07:56)
[2021-05-07] MEDS: LOSARTAN 50 MG TAB PO SCH (07:56)
[2021-05-07] MEDS: FUROSEMIDE 40 MG TAB PO SCH (07:56)
[2021-05-07] MEDS: PREGABALIN 75 MG CAP PO SCH (07:56)
[2021-05-07] MEDS: DULoxetine HCL 30 MG CAPSULE.DR PO SCH (07:56)
--- NOTE | 2021-05-07 09:36 | P.PN ---
Subjective Patient is seen in follow-up for hyponatremia. Sodium level stable at 129 yesterday. On oral Lasix. Denies chest pain or shortness of breath. Edema improving. No changes overnight. Vital signs are stable. General: The patient appeared well nourished and normally developed. HEENT: Head exam is unremarkable. Neck is without jugular venous distension. LUNGS: Breath sounds decreased. HEART: Rate and Rhythm are regular. ABDOMEN: Soft, obese. EXTREMITITES: 1+ edema. Chronic changes noted. Objective - Vital Signs Vital signs: Vital Signs Temp 97.6 F 05/07/21 06:50 Pulse 81 05/07/21 06:50 Resp 18 05/07/21 06:50 BP 142/68 05/07/21 06:50 Pulse Ox 98 05/07/21 06:50 Intake & Output 05/06/21 05/07/21 05/07/21 18:59 06:59 18:59 Intake Total 720 360 Output Total 580 Balance 720 -580 360 Weight 152.4 kg Intake: Oral 720 360 Output: Urine 580 Other: Voiding Method Toilet Toilet Urinal # Voids 2 1 - Labs CBC & Chem 7: 05/06/21 06:55 05/06/21 06:55 Assessment and Plan Plan: Assessment: 1. Hypervolemic hyponatremia. Status post [facility] May 02. Sodium level 129. Urine osmolality 243 and urine sodium less than 10. TSH and cortisol normal. 2. Benign hypertension. Stable. 3. Lower extremity edema. Improving with diuresis. 4. Chronic alcohol abuse. Plan: Maintain oral Lasix. Encouraged oral intake. Maintain 1500 mL fluid restriction. Per the nurse, he is not abiding by this. Advised patient to maintain 40-45 ounce fluid restriction per day upon discharge. Follow-up outpatient in 1 week. No changes from nephrology standpoint today.
[2021-05-07 10:33] VITALS: BP 139/68; PULSE 80; TEMP 98
--- NOTE | 2021-05-14 09:14 | CDI ---
Documentation Clarification Form Date: 05/14/2021 08:46:44 AM From: Patricia Loyola RN, CCDS Admit Date: 05/01/2021 09:14:00 PM Patient Name: Milton Navarro Visit Number: [id number] Discharge Date: 05/07/2021 02:07:00 PM ATTENTION: The Clinical Documentation Specialists (CDI) and [facility] Coding Staff appreciate your assistance in clarifying documentation. Please respond to the clarification below the line at the bottom and electronically sign. The CDI & [facility] Coding staff will review the response and follow-up if needed. Please note: Queries are made part of the Legal Health Record. If you have any questions, please contact the author of this message via ITS. Dr. Xavi GORDON is documented in the nephrology consult on 05/02/2021 which may lack sufficient clinical evidence/support in the medical record and was not continued in your subsequent progress notes. Additional clarification is requested. History/Risk Factors: Hyponatremia, Hypertension Clinical Indicators: 70-year-old male present to ED on 05/01/21, with leg swelling, pain. Laboratory studies finding acute hyponatremia at 119 and hypochloremia of 87, BUN <2, Creatinine 0.58, GFR .90. 05/02: Sodium 118, BUN 6 Creatinine 0.65, GFR>90 Treatment: Monitor Daily CBC, Electrolytes, BUN, and CR (and per orders) .9NS IV @100 mls/hr (821-05/02) Remove fluid restrictions (05/03) D5W 1,000 ml at 75 ml/hr x 1 Please clarify if ATN is a valid diagnosis? [ ] Yes, ATN is present as evidence by (additional clinical support): [ X] No, ATN is ruled out [ ] Other (please specify diagnosis) [ ] Unable to determine (Template Last Revised: November 2020) MTDD
== END 2021-05-07 14:07 | DRG 641 ==
LOC: EC 18:15 → 3SCARD 21:14 → 3NCARDOBS 05-02 14:36 → 3SCARD 05-02 14:47
PROVIDERS: ADMIT Internal Medicine; ATTEND Internal Medicine
DX: E86.1 Hypovolemia (principal); R17 Unspecified jaundice; Z68.41 Body mass index [BMI] 40.0-44.9, adult; E03.9 Hypothyroidism, unspecified; E66.9 Obesity, unspecified; E78.5 Hyperlipidemia, unspecified; E87.70 Fluid overload, unspecified; E87.8 Other disorders of electrolyte and fluid balance, not elsewhere classified; F01.50 Vascular dementia, unspecified severity, without behavioral disturbance, psychotic disturbance, mood disturbance, and anxiety; F10.10 Alcohol abuse, uncomplicated; F32.9 Major depressive disorder, single episode, unspecified; G25.81 Restless legs syndrome; G47.33 Obstructive sleep apnea (adult) (pediatric); G57.93 Unspecified mononeuropathy of bilateral lower limbs; G89.4 Chronic pain syndrome; I27.20 Pulmonary hypertension, unspecified; I11.9 Hypertensive heart disease without heart failure; I87.2 Venous insufficiency (chronic) (peripheral); I87.8 Other specified disorders of veins; M47.812 Spondylosis without myelopathy or radiculopathy, cervical region; M47.896 Other spondylosis, lumbar region; N40.0 Benign prostatic hyperplasia without lower urinary tract symptoms; Z79.899 Other long term (current) drug therapy; Z91.14 Patient's other noncompliance with medication regimen
CPT/HCPCS: 36415; 71046; 80048; 80053; 80306; 80320; 81001; 82533; 82570; 83036; 83735; 83880; 83930; 83935; 84156; 84295; 84300; 84443; 84484; 84550; 85025; 85610; 85730; 93005; 93970; 99285

== ENCOUNTER 2021-05-22 05:59 | Emergency (ER) | payer MEDICARE ==
[2021-05-22 06:10] VITALS: RESP 20; TEMP 98.7
[2021-05-22 06:45] LABS: Basophils # (A) 0.1 k/uL (0-0.2); Basophils % (A) 1 %; Eosinophils # (A) 0.6 k/uL (0-0.7); Eosinophils % (A) 6 %; HCT 44.4 % (39.0-53.0); Lymphocytes # (A) 1.9 k/uL (1.0-4.8); Lymphocytes % (A) 18 %; MCHC 33.8 g/dL (31.0-37.0); MCV 100.7 fL (80.0-100.0); Mean Platelet Volume 7.1; Monocytes # (A) 0.6 k/uL (0-1.0); Monocytes % (A) 5 %; Neutrophils # (A) 7.3 k/uL (1.3-7.7); Neutrophils % (A) 69 %; Platelet Count 368 k/uL (150-450); RBC 4.41 m/uL (4.30-5.90); RDW 12.5 % (11.5-15.5); WBC 10.6 k/uL (3.8-10.6)
[2021-05-22 06:52] LABS: Appearance,Urine Clear (Clear); Bilirubin,Urine Negative (Negative); Blood,Urine Trace (Negative); Color,Urine Yellow; Glucose,Urine (UA) Negative (Negative); Hyaline Casts,Urine 3 /lpf (0-2); Ketones,Urine Negative (Negative); Leukocyte Esterase,Urine Negative (Negative); Mucus,Urine Occasional /hpf; Nitrite,Urine Negative (Negative); Protein,Urine Negative (Negative); RBC,Urine 5 /hpf (0-5); Specific Gravity,Urine 1.014 (1.001-1.035); Urobilinogen,Urine <2.0 mg/dL (<2.0); WBC,Urine 1 /hpf (0-5)
[2021-05-22] MEDS ORDERED: DIAZEPAM 5 MG/ML 2 ML INJ IVP STA (06:55)
[2021-05-22 06:56] LABS: ALT 32 U/L (4-49); AST 52 U/L (17-59); African American GFR (CKD) >90 (>60 ml/min/1.73 sqM); Albumin 3.8 g/dL (3.5-5.0); Alkaline Phosphatase 85 U/L (38-126); Anion Gap 10 mmol/L; Blood Urea Nitrogen 15 mg/dL (9-20); Calcium 9.6 mg/dL (8.4-10.2); Carbon Dioxide 24 mmol/L (22-30); Chloride 100 mmol/L (98-107); Glucose 100 mg/dL (74-99); Magnesium 2.1 mg/dL (1.6-2.3); Non-African American GFR(CKD) >90 (>60 ml/min/1.73 sqM); Potassium 4.1 mmol/L (3.5-5.1); Sodium 134 mmol/L (137-145); Total Bilirubin 0.5 mg/dL (0.2-1.3); Total Protein 6.9 g/dL (6.3-8.2)
--- NOTE | 2021-05-22 07:00 | ED ---
General Adult HPI - General Chief complaint: Skin/Abscess/Foreign Body Stated complaint: swelling of the legs Time Seen by Provider: 05/22/21 06:01 Source: patient, EMS, RN notes reviewed Mode of arrival: EMS Limitations: no limitations - History of Present Illness Initial comments: This a 70-year-old male presents emergency Department chief complaint of leg pain, swelling. Patient states his bilateral leg swelling in which he states he believes it started overnight. Patient denies any chest pain or shortness of breath denies any. Chills patient has no history of congestive heart failure he states he always has large her legs but states that he is having some cramping. - Related Data Home Medications Medication Instructions Recorded Confirmed Furosemide [Lasix] 40 mg PO DAILY 05/06/21 05/06/21 Losartan Potassium 50 mg PO DAILY 05/06/21 05/06/21 Memantine [Namenda] 5 mg PO DAILY 05/06/21 05/06/21 Potassium Chloride [Klor-Con 20] 20 meq PO DAILY 05/06/21 05/06/21 Pregabalin [Lyrica] 150 mg PO BID 05/06/21 05/06/21 amLODIPine [Norvasc] 5 mg PO DAILY 05/06/21 05/06/21 Previous Rx's Medication Instructions Recorded DULoxetine HCL [Cymbalta] 30 mg PO DAILY capsule 05/07/21 Famotidine [Pepcid] 20 mg PO HS tab 05/07/21 HYDROcodone/APAP 7.5-325MG [[place] 1 each PO Q8HR PRN #9 tab 05/07/21 7.5-325] Pregabalin [Lyrica] 150 mg PO BID #60 cap 05/07/21 SILVER sulfADIAZINE CREAM 1 applic TOPICAL DAILY applic 05/07/21 [Silvadene Cream] Allergies Allergy/AdvReac Type Severity Reaction Status Date / Time No Known Allergies Allergy Verified 05/01/21 20:33 Review of Systems ROS Statement: Those systems with pertinent positive or pertinent negative responses have been documented in the HPI. ROS Other: All systems not noted in ROS Statement are negative. Past Medical History Past Medical History: Hyperlipidemia, Hypertension, Osteoarthritis (OA) Additional Past Medical History / Comment(s): ETOH abuse, chronic back pain, BLE neuropathy, lymphedema, multiple falls History of Any Multi-Drug Resistant Organisms: None Reported Past Surgical History: Back Surgery, Orthopedic Surgery, Tonsillectomy Additional Past Surgical History / Comment(s): 3 back laminectomies, hand surgery s/p trauma to reattatch tendons Past Anesthesia/Blood Transfusion Reactions: No Reported Reaction Past Psychological History: No Psychological Hx Reported Smoking Status: Never smoker Past Alcohol Use History: Daily Past Drug Use History: None Reported - Past Family History Father Family Medical History: Hypertension Mother Family Medical History: Cancer Additional Family Medical History / Comment(s): Lung cancer Brother(s) Family Medical History: No Reported History Sister(s) Family Medical History: Hypertension Daughter(s) Family Medical History: No Reported History General Exam General appearance: alert, in no apparent distress, obese Head exam: Present: atraumatic, normocephalic, normal inspection Respiratory exam: Present: normal lung sounds bilaterally. Absent: respiratory distress, wheezes, rales, rhonchi, stridor Cardiovascular Exam: Present: regular rate, normal rhythm, normal heart sounds. Absent: systolic murmur, diastolic murmur, rubs, gallop, clicks GI/Abdominal exam: Present: soft, normal bowel sounds. Absent: distended, tenderness, guarding, rebound, rigid Extremities exam: Present: pedal edema Neurological exam: Present: alert Skin exam: Present: warm, dry, intact, normal color. Absent: rash Course Vital Signs 05/22/21 06:00 Temperature 98.7 F Pulse Rate 72 Respiratory 20 Rate Blood Pressure 135/73 O2 Sat by Pulse 99 Oximetry Medical Decision Making - Medical Decision Making 70-year-old male presented for her leg swelling. There is no obvious significant swelling patient's labs are unremarkable. Patient has no evidence of congestive heart failure. Patient we discharged stable condition advised to elevate, work compression wraps and return for worsening change in symptoms. - Lab Data Result diagrams: 05/22/21 06:33 05/22/21 06:33 Lab Results 05/22/21 05/22/21 05/22/21 Range/Units 06:33 06:33 06:33 WBC 10.6 (3.8-10.6) k/uL RBC 4.41 (4.30-5.90) m/uL Hgb 15.0 (13.0-17.5) gm/dL Hct 44.4 (39.0-53.0) % MCV 100.7 H (80.0-100.0) fL MCH 34.0 (25.0-35.0) pg MCHC 33.8 (31.0-37.0) g/dL RDW 12.5 (11.5-15.5) % Plt Count 368 (150-450) k/uL MPV 7.1 Neutrophils % 69 % Lymphocytes % 18 % Monocytes % 5 % Eosinophils % 6 % Basophils % 1 % Neutrophils # 7.3 (1.3-7.7) k/uL Lymphocytes # 1.9 (1.0-4.8) k/uL Monocytes # 0.6 (0-1.0) k/uL Eosinophils # 0.6 (0-0.7) k/uL Basophils # 0.1 (0-0.2) k/uL Sodium 134 L (137-145) mmol/L Potassium 4.1 (3.5-5.1) mmol/L Chloride 100 (98-107) mmol/L Carbon Dioxide 24 (22-30) mmol/L Anion Gap 10 mmol/L BUN 15 (9-20) mg/dL Creatinine 0.77 (0.66-1.25) mg/dL Est GFR (CKD-EPI)AfAm >90 (>60 ml/min/1.73 sqM) Est GFR (CKD-EPI)NonAf >90 (>60 ml/min/1.73 sqM) Glucose 100 H (74-99) mg/dL Calcium 9.6 (8.4-10.2) mg/dL Magnesium 2.1 (1.6-2.3) mg/dL Total Bilirubin 0.5 (0.2-1.3) mg/dL AST 52 (17-59) U/L ALT 32 (4-49) U/L Alkaline Phosphatase 85 (38-126) U/L NT-Pro-B Natriuret Pep pg/mL Total Protein 6.9 (6.3-8.2) g/dL Albumin 3.8 (3.5-5.0) g/dL Urine Color Yellow Urine Appearance Clear (Clear) Urine pH 5.0 (5.0-8.0) Ur Specific [place] 1.014 (1.001-1.035) Urine Protein Negative (Negative) Urine Glucose (UA) Negative (Negative) Urine Ketones Negative (Negative) Urine Blood Trace H (Negative) Urine Nitrite Negative (Negative) Urine Bilirubin Negative (Negative) Urine Urobilinogen <2.0 (<2.0) mg/dL Ur Leukocyte Esterase Negative (Negative) Urine RBC 5 (0-5) /hpf Urine WBC 1 (0-5) /hpf Hyaline Casts 3 H (0-2) /lpf Urine Mucus Occasional H (None) /hpf 05/22/21 Range/Units 06:33 WBC (3.8-10.6) k/uL RBC (4.30-5.90) m/uL Hgb (13.0-17.5) gm/dL Hct (39.0-53.0) % MCV (80.0-100.0) fL MCH (25.0-35.0) pg MCHC (31.0-37.0) g/dL RDW (11.5-15.5) % Plt Count (150-450) k/uL MPV Neutrophils % % Lymphocytes % % Monocytes % % Eosinophils % % Basophils % % Neutrophils # (1.3-7.7) k/uL Lymphocytes # (1.0-4.8) k/uL Monocytes # (0-1.0) k/uL Eosinophils # (0-0.7) k/uL Basophils # (0-0.2) k/uL Sodium (137-145) mmol/L Potassium (3.5-5.1) mmol/L Chloride (98-107) mmol/L Carbon Dioxide (22-30) mmol/L Anion Gap mmol/L BUN (9-20) mg/dL Creatinine (0.66-1.25) mg/dL Est GFR (CKD-EPI)AfAm (>60 ml/min/1.73 sqM) Est GFR (CKD-EPI)NonAf (>60 ml/min/1.73 sqM) Glucose (74-99) mg/dL Calcium (8.4-10.2) mg/dL Magnesium (1.6-2.3) mg/dL Total Bilirubin (0.2-1.3) mg/dL AST (17-59) U/L ALT (4-49) U/L Alkaline Phosphatase (38-126) U/L NT-Pro-B Natriuret Pep 56 pg/mL Total Protein (6.3-8.2) g/dL Albumin (3.5-5.0) g/dL Urine Color Urine Appearance (Clear) Urine pH (5.0-8.0) Ur Specific [place] (1.001-1.035) Urine Protein (Negative) Urine Glucose (UA) (Negative) Urine Ketones (Negative) Urine Blood (Negative) Urine Nitrite (Negative) Urine Bilirubin (Negative) Urine Urobilinogen (<2.0) mg/dL Ur Leukocyte Esterase (Negative) Urine RBC (0-5) /hpf Urine WBC (0-5) /hpf Hyaline Casts (0-2) /lpf Urine Mucus (None) /hpf Disposition Clinical Impression: Leg pain Disposition: HOME SELF-CARE Condition: Stable Instructions (If sedation given, give patient instructions): Leg Pain (ED), Leg Edema (ED) Additional Instructions: Please return to the Emergency Department if symptoms worsen or any other con cerns. Is patient prescribed a controlled substance at d/c from ED?: No Referrals: Johnny Lane MD [Primary Care Provider] - 1-2 days Time of Disposition: 07:36
[2021-05-22] MEDS ORDERED: FUROSEMIDE 10 MG/ML 4 ML VIAL IV STA (07:33)
[2021-05-22] MEDS ORDERED: ACET/COD 300 MG/30 MG STARTER PACK 6 TAB BTL PO STA (07:34)
[2021-05-22] MEDS ORDERED: HYDROcodone/APAP 7.5-325MG 1 EACH TAB PO ONE (07:39)
[2021-05-22 08:02] VITALS: BP 123/62; PULSE 73
== END 2021-05-22 08:02 | disposition home or self-care (01) ==
LOC: EC 05:59
DX: M79.604 Pain in right leg (principal); M79.605 Pain in left leg; I10 Essential (primary) hypertension; E78.5 Hyperlipidemia, unspecified; M19.90 Unspecified osteoarthritis, unspecified site; Z79.899 Other long term (current) drug therapy; Z80.1 Family history of malignant neoplasm of trachea, bronchus and lung; Z82.49 Family history of ischemic heart disease and other diseases of the circulatory system
CPT/HCPCS: 36415; 83880; 80053; 83735; 85025; 81001; 96374; 96375; 99284; J1940; J3360

== ENCOUNTER 2021-06-25 09:52 | Inpatient (IN) | payer MEDICARE ==
[2021-06-25] MEDS ORDERED: LORazepam 2 MG/ML INJ IV STA (10:34)
--- NOTE | 2021-06-25 10:38 | ED ---
General Adult HPI - General Chief complaint: Recheck/Abnormal Lab/Rx Stated complaint: Weakness Time Seen by Provider: 06/25/21 10:00 Source: patient, EMS, RN notes reviewed, old records reviewed Mode of arrival: EMS Limitations: no limitations - History of Present Illness Initial comments: This is a 70-year-old male who has a past medical history significant for high blood pressure and neuropathy. Patient comes in today because yesterday afternoon he was having a difficult time getting around in the almost fell down. Patient states he is so weak in the legs that he is having a hard time standing or walking and he doesn't want to get hurt. Patient states he also fell off the wagon recently started drinking again a few months ago patient states he only drinks beer and he typically drinks about 3-4 24 ounce beers. Patient states last time he drank was yesterday. Patient denies any recent fever chills per patient denies any recent trauma. Patient denies any areas of erythema or swelling. Patient states she has chronic back pain but that something different than normal. Patient denies abdominal pain patient is chest pain difficulty b reathing first breath. - Related Data Home Medications Medication Instructions Recorded Confirmed Furosemide [Lasix] 40 mg PO DAILY 05/06/21 05/06/21 Losartan Potassium 50 mg PO DAILY 05/06/21 05/06/21 Memantine [Namenda] 5 mg PO DAILY 05/06/21 05/06/21 Potassium Chloride [Klor-Con 20] 20 meq PO DAILY 05/06/21 05/06/21 Pregabalin [Lyrica] 150 mg PO BID 05/06/21 05/06/21 amLODIPine [Norvasc] 5 mg PO DAILY 05/06/21 05/06/21 Previous Rx's Medication Instructions Recorded DULoxetine HCL [Cymbalta] 30 mg PO DAILY capsule 05/07/21 Famotidine [Pepcid] 20 mg PO HS tab 05/07/21 HYDROcodone/APAP 7.5-325MG [[place] 1 each PO Q8HR PRN #9 tab 05/07/21 7.5-325] Pregabalin [Lyrica] 150 mg PO BID #60 cap 05/07/21 SILVER sulfADIAZINE CREAM 1 applic TOPICAL DAILY applic 05/07/21 [Silvadene Cream] Allergies Allergy/AdvReac Type Severity Reaction Status Date / Time No Known Allergies Allergy Verified 06/25/21 10:06 Review of Systems ROS Statement: Those systems with pertinent positive or pertinent negative responses have been documented in the HPI. ROS Other: All systems not noted in ROS Statement are negative. Past Medical History Past Medical History: Hyperlipidemia, Hypertension, Osteoarthritis (OA) Additional Past Medical History / Comment(s): ETOH abuse, chronic back pain, BLE neuropathy, lymphedema, multiple falls History of Any Multi-Drug Resistant Organisms: None Reported Past Surgical History: Back Surgery, Orthopedic Surgery, Tonsillectomy Additional Past Surgical History / Comment(s): 3 back laminectomies, hand surgery s/p trauma to reattatch tendons Past Anesthesia/Blood Transfusion Reactions: No Reported Reaction Past Psychological History: No Psychological Hx Reported Smoking Status: Never smoker Past Alcohol Use History: Daily Past Drug Use History: None Reported - Past Family History Father Family Medical History: Hypertension Mother Family Medical History: Cancer Additional Family Medical History / Comment(s): Lung cancer Brother(s) Family Medical History: No Reported History Sister(s) Family Medical History: Hypertension Daughter(s) Family Medical History: No Reported History General Exam - General Exam Comments Initial Comments: GENERAL: Patient is well-developed and well-nourished. Patient is nontoxic and well-hydrated and is in no acute distress. ENT: Neck is soft and supple. No significant lymphadenopathy is noted. Oropharynx is clear. Moist mucous membranes. Neck has full range of motion without eliciting any pain. EYES: The sclera were anicteric and conjunctiva were pink and moist. Extraocular movements were intact and pupils were equal round and reactive to light. Eyelids were unremarkable. PULMONARY: Unlabored respirations. Good breath sounds bilaterally. No audible rales rhonchi or wheezing was noted. CARDIOVASCULAR: There is a regular rate and rhythm without any murmurs gallops or rubs. ABDOMEN: Soft and nontender with normal bowel sounds. SKIN: Skin is clear with no lesions or rashes and otherwise unremarkable. NEUROLOGIC: Patient is alert and oriented x3. Cranial nerves II through XII are grossly intact. Motor and sensory are also intact. Normal speech, volume and content. Symmetrical smile. MUSCULOSKELETAL: Normal extremities with adequate strength and full range of motion. No lower extremity swelling or edema. No calf tenderness. LYMPHATICS: No significant lymphadenopathy is noted PSYCHIATRIC: Normal psychiatric evaluation. Limitations: no limitations Course Vital Signs 06/25/21 06/25/21 06/25/21 09:58 12:13 13:24 Temperature 97.9 F Pulse Rate 77 80 79 Respiratory 20 18 18 Rate Blood Pressure 134/77 128/59 115/71 O2 Sat by Pulse 98 96 96 Oximetry Medical Decision Making - Medical Decision Making EKG shows normal sinus rhythm at 75 bpm AL interval 206 dresses 78 QT interval 418 QTC is 466 per patient's EKG shows no ST segment elevation or depression. Patient was unable to ambulate so I spoke with Dr. Lane we admitted the patient consult to social work - Lab Data Result diagrams: 06/25/21 10:46 06/25/21 10:46 Lab Results 06/25/21 06/25/21 06/25/21 Range/Units 10:46 10:46 10:46 WBC 6.1 (3.8-10.6) k/uL RBC 4.72 (4.30-5.90) m/uL Hgb 15.7 (13.0-17.5) gm/dL Hct 45.1 (39.0-53.0) % MCV 95.6 D (80.0-100.0) fL MCH 33.2 (25.0-35.0) pg MCHC 34.8 (31.0-37.0) g/dL RDW 14.5 (11.5-15.5) % Plt Count 98 L D (150-450) k/uL MPV 7.9 Neutrophils % 76 % Lymphocytes % 12 % Monocytes % 8 % Eosinophils % 1 % Basophils % 0 % Neutrophils # 4.7 (1.3-7.7) k/uL Lymphocytes # 0.7 L (1.0-4.8) k/uL Monocytes # 0.5 (0-1.0) k/uL Eosinophils # 0.1 (0-0.7) k/uL Basophils # 0.0 (0-0.2) k/uL Manual Slide Review Performed RBC Morphology Normal Sodium 127 L (137-145) mmol/L Potassium 4.4 (3.5-5.1) mmol/L Chloride 93 L (98-107) mmol/L Carbon Dioxide 23 (22-30) mmol/L Anion Gap 11 mmol/L BUN 7 L (9-20) mg/dL Creatinine 0.69 (0.66-1.25) mg/dL Est GFR (CKD-EPI)AfAm >90 (>60 ml/min/1.73 sqM) Est GFR (CKD-EPI)NonAf >90 (>60 ml/min/1.73 sqM) Glucose 135 H (74-99) mg/dL Plasma Lactic Acid Gerardo (0.7-2.0) mmol/L Calcium 9.1 (8.4-10.2) mg/dL Magnesium 2.0 (1.6-2.3) mg/dL Total Bilirubin 2.0 H (0.2-1.3) mg/dL AST 103 H (17-59) U/L ALT 48 (4-49) U/L Alkaline Phosphatase 101 (38-126) U/L Troponin I (0.000-0.034) ng/mL Total Protein 7.0 (6.3-8.2) g/dL Albumin 3.8 (3.5-5.0) g/dL Urine Color Yellow Urine Appearance Clear (Clear) Urine pH 6.5 (5.0-8.0) Ur Specific [place] 1.008 (1.001-1.035) Urine Protein Negative (Negative) Urine Glucose (UA) Negative (Negative) Urine Ketones 1+ H (Negative) Urine Blood Small H (Negative) Urine Nitrite Negative (Negative) Urine Bilirubin Negative (Negative) Urine Urobilinogen 3.0 (<2.0) mg/dL Ur Leukocyte Esterase Negative (Negative) Urine RBC 2 (0-5) /hpf Urine WBC <1 (0-5) /hpf Hyaline Casts 1 (0-2) /lpf Urine Mucus Rare H (None) /hpf Serum Alcohol <10 mg/dL 06/25/21 06/25/21 Range/Units 10:46 10:46 WBC (3.8-10.6) k/uL RBC (4.30-5.90) m/uL Hgb (13.0-17.5) gm/dL Hct (39.0-53.0) % MCV (80.0-100.0) fL MCH (25.0-35.0) pg MCHC (31.0-37.0) g/dL RDW (11.5-15.5) % Plt Count (150-450) k/uL MPV Neutrophils % % Lymphocytes % % Monocytes % % Eosinophils % % Basophils % % Neutrophils # (1.3-7.7) k/uL Lymphocytes # (1.0-4.8) k/uL Monocytes # (0-1.0) k/uL Eosinophils # (0-0.7) k/uL Basophils # (0-0.2) k/uL Manual Slide Review RBC Morphology Sodium (137-145) mmol/L Potassium (3.5-5.1) mmol/L Chloride (98-107) mmol/L Carbon Dioxide (22-30) mmol/L Anion Gap mmol/L BUN (9-20) mg/dL Creatinine (0.66-1.25) mg/dL Est GFR (CKD-EPI)AfAm (>60 ml/min/1.73 sqM) Est GFR (CKD-EPI)NonAf (>60 ml/min/1.73 sqM) Glucose (74-99) mg/dL Plasma Lactic Acid Gerardo 1.7 (0.7-2.0) mmol/L Calcium (8.4-10.2) mg/dL Magnesium (1.6-2.3) mg/dL Total Bilirubin (0.2-1.3) mg/dL AST (17-59) U/L ALT (4-49) U/L Alkaline Phosphatase (38-126) U/L Troponin I <0.012 (0.000-0.034) ng/mL Total Protein (6.3-8.2) g/dL Albumin (3.5-5.0) g/dL Urine Color Urine Appearance (Clear) Urine pH (5.0-8.0) Ur Specific [place] (1.001-1.035) Urine Protein (Negative) Urine Glucose (UA) (Negative) Urine Ketones (Negative) Urine Blood (Negative) Urine Nitrite (Negative) Urine Bilirubin (Negative) Urine Urobilinogen (<2.0) mg/dL Ur Leukocyte Esterase (Negative) Urine RBC (0-5) /hpf Urine WBC (0-5) /hpf Hyaline Casts (0-2) /lpf Urine Mucus (None) /hpf Serum Alcohol mg/dL Disposition Clinical Impression: Hyponatremia, Inability to walk, Alcohol abuse, Noncompliance with medications Disposition: ADMITTED IP TO THIS HOSP Referrals: Johnny Lane MD [Primary Care Provider] - 1-2 days Time of Disposition: 13:31
[2021-06-25 11:35] LABS: Appearance,Urine Clear (Clear); Bilirubin,Urine Negative (Negative); Blood,Urine Small (Negative); Color,Urine Yellow; Glucose,Urine (UA) Negative (Negative); Hyaline Casts,Urine 1 /lpf (0-2); Ketones,Urine 1+ (Negative); Leukocyte Esterase,Urine Negative (Negative); Mucus,Urine Rare /hpf; Nitrite,Urine Negative (Negative); PH, Urine 6.5 (5.0-8.0); Protein,Urine Negative (Negative); RBC,Urine 2 /hpf (0-5); Specific Gravity,Urine 1.008 (1.001-1.035); WBC,Urine <1 /hpf (0-5)
--- NOTE | 2021-06-25 11:43 | XR ---
EXAMINATION TYPE: XR chest 2V DATE OF EXAM: 06/25/2021 COMPARISON: Chest x-ray May 01, 2021 HISTORY: Weakness. TECHNIQUE: Frontal and lateral views of the chest are obtained. FINDINGS: There is mild chronic parenchymal changes without suspicious focal air space opacity, pleu ral effusion, or pneumothorax seen. The cardiac silhouette size is stable and upper limits of normal . The osseous structures are intact. IMPRESSION: No acute process. No significant change from prior.
[2021-06-25 11:56] LABS: Basophils % (A) 0 %; Eosinophils # (A) 0.1 k/uL (0-0.7); Eosinophils % (A) 1 %; HCT 45.1 % (39.0-53.0); HGB 15.7 gm/dL (13.0-17.5); Lymphocytes # (A) 0.7 k/uL (1.0-4.8); Lymphocytes % (A) 12 %; MCH 33.2 pg (25.0-35.0); MCHC 34.8 g/dL (31.0-37.0); Mean Platelet Volume 7.9; Monocytes # (A) 0.5 k/uL (0-1.0); Monocytes % (A) 8 %; Neutrophils # (A) 4.7 k/uL (1.3-7.7); Neutrophils % (A) 76 %; RBC 4.72 m/uL (4.30-5.90); RDW 14.5 % (11.5-15.5); WBC 6.1 k/uL (3.8-10.6)
[2021-06-25 12:01] LABS: ALT 48 U/L (4-49); AST 103 U/L (17-59); African American GFR (CKD) >90 (>60 ml/min/1.73 sqM); Albumin 3.8 g/dL (3.5-5.0); Alcohol <10 mg/dL; Alkaline Phosphatase 101 U/L (38-126); Anion Gap 11 mmol/L; Blood Urea Nitrogen 7 mg/dL (9-20); Calcium 9.1 mg/dL (8.4-10.2); Carbon Dioxide 23 mmol/L (22-30); Chloride 93 mmol/L (98-107); Glucose 135 mg/dL (74-99); Non-African American GFR(CKD) >90 (>60 ml/min/1.73 sqM); Potassium 4.4 mmol/L (3.5-5.1); Sodium 127 mmol/L (137-145)
[2021-06-25 12:06] LABS: MCV 95.6 fL (80.0-100.0)
[2021-06-25] MEDS ORDERED: KETOROLAC 15 MG/ML 1 ML VIAL IVP STA (12:06)
[2021-06-25 12:22] LABS: Platelet Count 98 k/uL (150-450)
[2021-06-25] MEDS: HYDROcodone/APAP 10-325MG 1 EACH TAB PO PRN ×2 (15:19→21:36)
--- NOTE | 2021-06-25 15:26 | P.HPIM ---
History of Present Illness H&P Date: 06/25/21 Chief Complaint: Hyponatremia/weakness HISTORY OF PRESENT ILLNESS: This is a 70-year-old male one of my patient with a previous medical history significant for hypertension and hypertensive cardiovascular disease, hyperlipidemia, obesity with obstructive sleep apnea, history of chronic alcohol use and dependence with the peripheral neuropathy, significant spondylosis of the lumbar spine with spinal stenosis and significant chronic low back pain, patient presented to the emergency department at [facility] after he called 911 today in the morning after he had trouble walking in his trailer and he fell backward on his bed with significant weakness in both lower extremities, patient stated that he went yesterday to the [place] and he was watching the boat he drank 40 ounces of beer and after that he went back to his trailer he had the hard time getting into the trailer because of the weakness of both lower extremities and a neuropathy he was waiting for his daughter Delma to come and see him she spent some time with him and she left him and he went to bed where he fell , patient was hospitalized last at [facility] back in May 01 to 05/07/2021 after he was admitted for hyponatremia as well as generalized weakness and he ended up getting discharged to [facility] [place] where he did well with physical therapy and he was discharged home was supposed to follow-up with me as an outpatient in the office which he never did, patient ran out of his medication about 3 days ago, and he was seen in the ER and he will be hospitalized and evaluated by physical therapy as well as medical social consultant patient will require to have some sort of assisted living versus extended care facility placement and his daughter has to be assigned as a DURABLE POWER OF PARTS PROFESSIONAL for his care. REVIEW OF SYSTEMS: Constitutional: No documented fever, no chills, no night sweats. No weight change. positive for weakness weakness, fatigue or lethargy. Positive for daytime sleepiness. HEENT: No headache. No blurred vision or double vision, no loss of vision. No loss of Hearing, no ringing in the ears, no dizziness. No nasal drainage or congestion. No epistaxis. No sore throat. Lungs: No shortness of breath, no cough, no sputum production. No wheezing. Reports dyspnea with activity. Cardiovascular: No chest pain, positive for lower extremity edema. No palpitations. No paroxysmal nocturnal dyspnea. No orthopnea. No lightheadedness or dizziness. No syncopal episodes.Positive for nocturia. Abdominal: No abdominal pain. No nausea, vomiting. No diarrhea. No constipation. No bloody or tarry stools . No loss of appetite. Genitourinary: No dysuria, increased frequency, urgency. No urinary retention. Musculoskeletal: positive for neck pain, positive for chronic low back pain, positive for significant pain in both lower extremities with significant neuropathy, positive for gait dysfunction. Integumentary: Positive for venous ulcerations of right lower extremity , no lesions. No rash or pruritus. No unusual bruising. Does appear to have seborrheic dermatitis Neurologic: No aphasia. No facial droop. Memory loss. No head injury. No headache, positive for paresthesia in both lower extremities Psychiatric: Patient does appear to be somewhat depressed, appears to be a bit anxious, no suicidal thoughts or ideation. Endocrine: No abnormal blood sugars, increased weight. PAST MEDICAL HISTORY: 1. Hypertension and hypertensive cardiovascular disease. 2. Hyperlipidemia. 3. Hypothyroidism. 4. Chronic venous stasis with stasis dermatitis. 5. Chronic alcohol use and dependence. 6. Obstructive sleep apnea. 7. Peripheral neuropathy. 8. Vascular dementia. 9. Enlarged prostate. 10. 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 11. Restless leg syndrome. PAST SURGICAL HISTORY: 1. Laminectomies in the lumbar spine 3. 2. Tonsillectomy. 3. Hand surgery with tendon repair. SOCIAL HISTORY: Patient denies a history of smoking, he drinks about 3 beers every other day, he used to drink a lot heavier than that, he denies any drug use or abuse, he denies any marijuana use and lives along, he has a daughter who comes a check on him, only on the weekend. FAMILY HISTORY: Father at age 93 from old age. History of hypertension and myocardial infarction, mother at age of 84 from lung cancer and she was heavy smoker, patient has 2 brothers one of them is super morbid obesity and other one is okay, patient has 2 sisters one of them is 63-year-old with history of venous stasis, the other one is fine, patient has a daughter with no major medical problems 35-year-old. PHYSICAL EXAMINATION: General: this is a 70-year-old male who is laying down in bed does not appear to be in acute distress. HEENT: Head is atraumatic, normocephalic, pupils were equal round reactive to light and recommendation, extraocular muscle movement were intact, sclera nonicteric, conjunctivae were pale, mucous membranes of the mouth are somewhat dry. Neck: Supple, no JVP, normal carotid upstroke bilaterally, no lymphadenopathy. Chest: Decreased breath sounds at the bases, few rhonchi, no expiratory wheezes, no chest wall tenderness, no intercostal retractions. Heart: First heart sound is normal, second heart sound is normal there is systolic ejection murmur 2/6 located in the left sternal border. Abdomen: Soft, nontender, nondistended, positive bowel sounds. Extremities: There is significant venous stasis of both lower extremity with mild edema, with a chronic skin changes dorsalis pedis +1 bilaterally poor foot hygiene. Neurologic examination: Patient is awake alert and oriented X 3, cranial nerves II-12 appear grossly intact, muscle power were 4 out of 5 in upper extremities and 3out of 5 in bilateral lower extremities, deep tendon reflexes were depressed bilaterally. ASSESSMENT AND PLAN: 1. Hyponatremia secondary to to hypervolemia. Hep-Lock his IV start the patient on Lasix 40 mg orally twice every day,, monitor the patient's serum osmolality, urine osmolality urine sodium, cortisol level, TSH with free T4, also uric acid level. Fluid restriction. 2. Bilateral lower extremity venous stasis with venous ulceration . bilateral lower extremities Rocky wrap. 3. Hypertension and hypertensive cardiovascular disease. restart the patient on losartan 50 mg orally once every day. 4. Hyperlipidemia. with that, monitor lipid panel, keep LDL 55-70. 5. Vascular dementia. We will continue Namenda 5 mg po bid 6. Chronic alcohol use and dependence. Patient was advised to be abstinent from alcohol. Apply CIWA protocol. 7. 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 Continue [place] 10/325 mg 1 tablet every 6 hours as needed. 8. Bilateral lower extremity neuropathy continue patient on Lyrica 150 mg orally twice every day. 9. Depression. Continue patient on Cymbalta 30 mg orally once every day. 10. DVT prophylaxis. Continue Lovenox 40 mg subcutaneously every 24 hours. 11. GI prophylaxis. Continue Pepcid 20 mg orally once every day. 12. Admit to inpatient. Estimate a length of stay 2 midnights. 13. Patient is full code. Past Medical History Past Medical History: Hyperlipidemia, Hypertension, Osteoarthritis (OA) Additional Past Medical History / Comment(s): ETOH abuse, chronic back pain, BLE neuropathy, lymphedema, multiple falls History of Any Multi-Drug Resistant Organisms: None Reported Past Surgical History: Back Surgery, Orthopedic Surgery, Tonsillectomy Additional Past Surgical History / Comment(s): 3 back laminectomies, hand surgery s/p trauma to reattatch tendons Past Anesthesia/Blood Transfusion Reactions: No Reported Reaction Past Psychological History: No Psychological Hx Reported Smoking Status: Never smoker Past Alcohol Use History: Daily Past Drug Use History: None Reported - Past Family History Father Family Medical History: Hypertension Mother Family Medical History: Cancer Additional Family Medical History / Comment(s): Lung cancer Brother(s) Family Medical History: No Reported History Sister(s) Family Medical History: Hypertension Daughter(s) Family Medical History: No Reported History Medications and Allergies Home Medications Medication Instructions Recorded Confirmed Type Furosemide [Lasix] 40 mg PO DAILY 05/06/21 06/25/21 History Losartan Potassium 50 mg PO DAILY 05/06/21 06/25/21 History Memantine [Namenda] 5 mg PO DAILY 05/06/21 06/25/21 History Potassium Chloride [Klor-Con 20] 20 meq PO DAILY 05/06/21 06/25/21 History Pregabalin [Lyrica] 150 mg PO BID 05/06/21 06/25/21 History amLODIPine [Norvasc] 5 mg PO DAILY 05/06/21 06/25/21 History DULoxetine HCL [Cymbalta] 30 mg PO DAILY capsule 05/07/21 06/25/21 Rx Clotrimazole/Betamethasone Dip 1 applic TOPICAL BID 06/25/21 06/25/21 History [Lotrisone Cream] Cyanocobalamin (Vitamin B-12) 500 mcg PO DAILY 06/25/21 06/25/21 History [Vitamin B-12] Cyclobenzaprine [Flexeril] 10 mg PO HS PRN 06/25/21 06/25/21 History Folic Acid 1 mg PO DAILY 06/25/21 06/25/21 History HYDROcodone/APAP 10-325MG [[place] 1 tab PO QID PRN 06/25/21 06/25/21 History 10-325] Multivitamins, Thera [Multivitamin 1 tab PO DAILY 06/25/21 06/25/21 History (formulary)] Thiamine [Vitamin B-1] 100 mg PO DAILY 06/25/21 06/25/21 History Allergies Allergy/AdvReac Type Severity Reaction Status Date / Time No Known Allergies Allergy Verified 06/25/21 10:06 Physical Exam Vitals: Vital Signs Temp Pulse Resp BP Pulse Ox 06/25/21 13:52 78 18 143/95 97 06/25/21 13:24 79 18 115/71 96 06/25/21 12:13 80 18 128/59 96 06/25/21 09:58 97.9 F 77 20 134/77 98 Intake and Output 06/24/21 06/25/21 06/25/21 22:59 06:59 14:59 Other: Weight 151.953 kg Results CBC & Chem 7: 06/25/21 10:46 06/25/21 10:46 Labs: Abnormal Lab Results - Last 24 Hours (Table) 06/25/21 06/25/21 06/25/21 Range/Units 10:46 10:46 10:46 Plt Count 98 L D (150-450) k/uL Lymphocytes # 0.7 L (1.0-4.8) k/uL Sodium 127 L (137-145) mmol/L Chloride 93 L (98-107) mmol/L BUN 7 L (9-20) mg/dL Glucose 135 H (74-99) mg/dL Total Bilirubin 2.0 H (0.2-1.3) mg/dL AST 103 H (17-59) U/L Urine Ketones 1+ H (Negative) Urine Blood Small H (Negative) Urine Mucus Rare H (None) /hpf
[2021-06-25] MEDS ORDERED: THIAMINE 100 MG/ML 2 ML VIAL IM STA (15:35)
[2021-06-25] MEDS ORDERED: LORazepam 2 MG/ML INJ IV PRN (15:35)
[2021-06-25] MEDS: LORazepam 2 MG/ML INJ IV PRN ×2 (15:41→21:38)
[2021-06-25 15:46] LABS: Uric Acid 6.2 mg/dL (3.5-8.5)
[2021-06-25 15:48] LABS: Creatinine,Urine Random 85.7 mg/dL; Protein/Creatinine Ratio,Urine 0.222
[2021-06-25] MEDS: THIAMINE 100 MG TAB PO SCH (17:44)
[2021-06-25] MEDS: CYCLOBENZAPRINE 10 MG TAB PO PRN (21:36)
[2021-06-25] MEDS: PREGABALIN 75 MG CAP PO SCH (21:36)
[2021-06-25] MEDS: CLOTRIMAZOLE/BETAMETH 1-0.05% CREAM 45 GM TUBE TOPICAL SCH (21:51)
[2021-06-26 06:33] LABS: Basophils % (A) 0 %; Eosinophils # (A) 0.1 k/uL (0-0.7); Eosinophils % (A) 3 %; Lymphocytes # (A) 0.9 k/uL (1.0-4.8); Lymphocytes % (A) 19 %; MCHC 33.3 g/dL (31.0-37.0); Macrocytosis Slight; Mean Platelet Volume 8.8; Monocytes # (A) 0.6 k/uL (0-1.0); Monocytes % (A) 11 %; Neutrophils # (A) 3.2 k/uL (1.3-7.7); Neutrophils % (A) 64 %; RBC 4.24 m/uL (4.30-5.90); RDW 14.6 % (11.5-15.5); WBC 4.9 k/uL (3.8-10.6)
[2021-06-26 06:54] LABS: Platelet Count 84 k/uL (150-450)
[2021-06-26] MEDS: CYANOCOBALAMIN 500 MCG TAB PO SCH (08:01)
[2021-06-26] MEDS: CLOTRIMAZOLE/BETAMETH 1-0.05% CREAM 45 GM TUBE TOPICAL SCH ×2 (08:01→23:59)
[2021-06-26] MEDS: THIAMINE 100 MG TAB PO SCH ×2 (08:01→17:25)
[2021-06-26] MEDS: ENOXAPARIN 40 MG/0.4 ML SYRINGE SQ SCH (08:02)
[2021-06-26] MEDS: LOSARTAN 50 MG TAB PO SCH (08:02)
[2021-06-26] MEDS: MULTIVITAMINS, THERA 1 EACH TAB PO SCH (08:02)
[2021-06-26] MEDS: PREGABALIN 75 MG CAP PO SCH ×2 (08:02→20:49)
[2021-06-26] MEDS: FUROSEMIDE 40 MG TAB PO SCH (08:02)
[2021-06-26] MEDS: FOLIC ACID 1 MG TAB PO SCH (08:02)
[2021-06-26] MEDS: DULoxetine HCL 30 MG CAPSULE.DR PO SCH (08:02)
[2021-06-26] MEDS: POTASSIUM CHLORIDE ER 20 MEQ TAB.ER PO SCH (08:04)
[2021-06-26] MEDS: MEMANTINE 5 MG TAB PO SCH (08:12)
[2021-06-26] MEDS ORDERED: THIAMINE 100 MG TAB PO SCH (09:00)
[2021-06-26] MEDS ORDERED: amLODIPine 5 MG TAB PO SCH (09:00)
[2021-06-26 09:49] LABS: African American GFR (CKD) 101.4 (60.0-200.0); Albumin 3.4 g/dL (3.8-4.9); Albumin/Globulin Ratio 1.55 (1.60-3.17); Anion Gap 12.2 mmol/L (4.00-12.00); BUN/Creat Ratio 13.44 Ratio (12.00-20.00); Blood Urea Nitrogen 12.1 mg/dL (9.0-27.0); Carbon Dioxide 24.8 mmol/L (21.6-31.8); Globulin 2.2 g/dL (1.6-3.3); Non-African American GFR(CKD) 87.5 (60.0-200.0); Total Bilirubin 1.3 mg/dL (0.30-1.20); Total Protein 5.6 g/dL (6.2-8.2)
[2021-06-26] MEDS: HYDROcodone/APAP 10-325MG 1 EACH TAB PO PRN ×2 (13:52→20:48)
--- NOTE | 2021-06-26 15:03 | PN ---
PROGRESS NOTE DATE OF SERVICE: 06/26/2021 I am covering for Dr. Lane. HISTORY OF PRESENT ILLNESS: This 70-year-old gentleman who was admitted with hypovolemic hyponatremia is being closely monitored at this time. The patient continues to be mildly confused. Patient complains of generalized weakness also. The sodium is 129 from 127. The patient is off IV fluids at this time. PAST MEDICAL HISTORY: Reviewed. REVIEW OF SYSTEMS: Cardiovascular: No angina or palpitations. Respiration: As mentioned earlier. GI as mentioned earlier. : No dysuria. Nervous system: No numbness or weakness. CURRENT MEDICATIONS: Reviewed and include: [place], vitamin B12, Flexeril, Cymbalta, Lovenox, folic acid, Lasix. Doses reviewed. PHYSICAL EXAMINATION: Patient is alert, oriented times two. Pulse 78, blood pressure 130/70, respiration 20, temperature 98.8, pulse ox 94% on room air. HEENT: Conjunctivae normal. NECK: No JVD. CARDIOVASCULAR: S1, S2 muffled. RESPIRATORY: Breath sounds diminished in the bases. ABDOMEN: Soft. NERVOUS SYSTEM: Diffusely weak. LAB STUDIES: WBC 4.1, hemoglobin is 14, sodium 129, potassium 4 and anion gap is 12. Bilirubin is 1.3, albumin 3.4. UA noted. ASSESSMENT: 1. Hypovolemic hyponatremia status post IV fluids. 2. Bilateral lower extremity venous stasis edema. 3. Change in mental status, acute metabolic encephalopathy. 4. Hypertension. 5. Hyperlipidemia. 6. Vascular dementia. 7. Chronic alcohol dependence. 8. Thrombocytopenia. 9. History of back surgery, degenerative joint disease. 10.Obesity body mass of 45.4. 11.FULL CODE. RECOMMENDATIONS AND DISCUSSION: This 70-year-old gentleman who presented with multiple complex medical issues, we will monitor the patient closely, continue the current medications, management and symptomatic treatment. Otherwise, repeat labs. DVT prophylaxis. Continue rest of medications. Guarded prognosis. Further recommendations to follow. Dr. Lane will follow the patient on Monday. We will also obtain a PT/OT evaluation. MMODL / DAVIDN: [id number] / MTDD
[2021-06-26] MEDS: LORazepam 2 MG/ML INJ IV PRN (16:25)
[2021-06-26] MEDS: CYCLOBENZAPRINE 10 MG TAB PO PRN (20:48)
[2021-06-27 05:29] LABS: HCT 40.9 % (39.0-53.0); HGB 13.4 gm/dL (13.0-17.5); MCH 32.8 pg (25.0-35.0); MCHC 32.7 g/dL (31.0-37.0); MCV 100.3 fL (80.0-100.0); Macrocytosis Slight; Mean Platelet Volume 8.5; Platelet Count 101 k/uL (150-450); RBC 4.08 m/uL (4.30-5.90); RDW 14.6 % (11.5-15.5); WBC 5.1 k/uL (3.8-10.6)
[2021-06-27] MEDS: HYDROcodone/APAP 10-325MG 1 EACH TAB PO PRN ×3 (05:33→19:57)
[2021-06-27] MEDS: LORazepam 2 MG/ML INJ IV PRN ×4 (05:39→23:05)
[2021-06-27] MEDS: CLOTRIMAZOLE/BETAMETH 1-0.05% CREAM 45 GM TUBE TOPICAL SCH ×2 (07:47→20:01)
[2021-06-27] MEDS: CYANOCOBALAMIN 500 MCG TAB PO SCH (07:48)
[2021-06-27] MEDS: THIAMINE 100 MG TAB PO SCH ×2 (07:48→16:44)
[2021-06-27] MEDS: ENOXAPARIN 40 MG/0.4 ML SYRINGE SQ SCH (07:50)
[2021-06-27] MEDS: DULoxetine HCL 30 MG CAPSULE.DR PO SCH (07:50)
[2021-06-27] MEDS: LOSARTAN 50 MG TAB PO SCH (07:51)
[2021-06-27] MEDS: FUROSEMIDE 40 MG TAB PO SCH (07:51)
[2021-06-27] MEDS: MEMANTINE 5 MG TAB PO SCH (07:51)
[2021-06-27] MEDS: PREGABALIN 75 MG CAP PO SCH ×2 (07:51→20:00)
[2021-06-27] MEDS: POTASSIUM CHLORIDE ER 20 MEQ TAB.ER PO SCH (07:51)
[2021-06-27] MEDS: MULTIVITAMINS, THERA 1 EACH TAB PO SCH (07:52)
[2021-06-27 08:54] LABS: Eosinophils # (M) 0.31 k/uL (0-0.7); Lymphocytes # (M) 1.38 k/uL (1.0-4.8); Monocytes # (M) 0.87 k/uL (0-1.0); Neutrophils # (M) 2.55 k/uL (1.3-7.7); Neutrophils % (M) 50 %; Nucleated Red Blood Cells 0 /100 WBC (0-0); Total Cells Counted 100
[2021-06-27] MEDS: FOLIC ACID 1 MG TAB PO SCH (09:40)
[2021-06-27 11:00] LABS: African American GFR (CKD) 78.7 (60.0-200.0); Anion Gap 10.2 mmol/L (4.00-12.00); BUN/Creat Ratio 17.93 Ratio (12.00-20.00); Blood Urea Nitrogen 19.9 mg/dL (9.0-27.0); Calcium 8.8 mg/dL (8.7-10.3); Carbon Dioxide 26.7 mmol/L (21.6-31.8); Non-African American GFR(CKD) 67.9 (60.0-200.0); Potassium 4.2 mmol/L (3.5-5.5)
--- NOTE | 2021-06-27 19:03 | PN ---
PROGRESS NOTE DATE OF SERVICE: 06/27/2021 I am covering for Dr. Lane. HISTORY OF PRESENT ILLNESS: This 70-year-old gentleman who was admitted with weakness and hyponatremia was developed hypervolemic hyponatremia. Sodium is improving at this time. The patient also had weakness. The patient apparently had a fall also today. No chest pain. No palpitations. No fever. ECF rehab is also being planned. PHYSICAL EXAMINATION: Alert and oriented x3. Pulse 95, blood pressure 100/72, respiration 20, temperature 97.2, pulse ox 94% on room air. HEENT: Conjunctivae normal. Oral mucosa moist. NECK: No jugular venous distention. No lymph node enlargement. CARDIOVASCULAR: S1, S2, muffled. No S3, no S4, RESPIRATORY: Diminished breath sounds at the bases. ABDOMEN: Soft, obese. LEGS: No edema, no swelling. NERVOUS SYSTEM: Mild diffuse weakness. LABS: Hemoglobin 13.1, sodium 129. ASSESSMENT: 1. Hypervolemic hyponatremia. 2. Bilateral lower extremity venous statis edema. 3. Generalized weakness and gait dysfunction. 4. Change in mental status, acute metabolic encephalopathy. 5. Hypertension. 6. Hyperlipidemia. 7. Vascular dementia. 8. Chronic alcohol dependence. 9. Thrombocytopenia. 10.History of back injury, DJD. 11.Obesity with body mass index of 45.5. 12.FULL CODE. RECOMMENDATIONS AND DISCUSSION: I recommend to continue current management, continue symptomatic treatment, PT OT evaluation, possible ECF rehab. Will monitor sodium closely. Hyponatremia seems to be stabilized at this time. Dr. Lane will follow tomorrow. MMLINDSEYL / IJN: [id number] /
[2021-06-27] MEDS: CYCLOBENZAPRINE 10 MG TAB PO PRN (23:15)
[2021-06-28] MEDS: HYDROcodone/APAP 10-325MG 1 EACH TAB PO PRN (04:32)
[2021-06-28] MEDS: LORazepam 2 MG/ML INJ IV PRN ×2 (05:31→09:47)
[2021-06-28 08:15] LABS: Basophils % (A) 1 %; Eosinophils # (A) 0.1 k/uL (0-0.7); Eosinophils % (A) 3 %; HCT 40.9 % (39.0-53.0); HGB 13.2 gm/dL (13.0-17.5); Lymphocytes # (A) 0.5 k/uL (1.0-4.8); Lymphocytes % (A) 11 %; MCH 33.1 pg (25.0-35.0); MCHC 32.3 g/dL (31.0-37.0); MCV 102.5 fL (80.0-100.0); Macrocytosis Slight; Mean Platelet Volume 7.8; Monocytes # (A) 0.4 k/uL (0-1.0); Monocytes % (A) 9 %; Neutrophils # (A) 3.4 k/uL (1.3-7.7); Neutrophils % (A) 73 %; Platelet Count 123 k/uL (150-450); RBC 3.98 m/uL (4.30-5.90); RDW 14.8 % (11.5-15.5); WBC 4.6 k/uL (3.8-10.6)
--- NOTE | 2021-06-28 08:25 | P.DS ---
Providers Date of admission: 06/25/21 13:33 Expected date of discharge: 06/28/21 Attending physician: Johnny Lane Primary care physician: Johnny Lane [facility] Course: HISTORY OF PRESENT ILLNESS: This is a 70-year-old male one of my patient with a previous medical history significant for hypertension and hypertensive cardiovascular disease, hyperlipidemia, obesity with obstructive sleep apnea, history of chronic alcohol use and dependence with the peripheral neuropathy, significant spondylosis of the lumbar spine with spinal stenosis and significant chronic low back pain, patient presented to the emergency department at [facility] after he called 911 today in the morning after he had trouble walking in his trailer and he fell backward on his bed with significant weakness in both lower extremities, patient stated that he went yesterday to the [place] and he was watching the boat he drank 40 ounces of beer and after that he went back to his trailer he had the hard time getting into the trailer because of the weakness of both lower extremities and a neuropathy he was waiting for his daughter Delma to come and see him she spent some time with him and she left him and he went to bed where he fell , patient was hospitalized last at [facility] back in May 01 to 05/07/2021 after he was admitted for hyponatremia as well as generalized weakness and he ended up getting discharged to [facility] [place] where he did well with physical therapy and he was discharged home was supposed to follow-up with me as an outpatient in the office which he never did, patient ran out of his medication about 3 days ago, and he was seen in the ER and he will be hospitalized and evaluated by physical therapy as well as social secretary patient will require to have some sort of assisted living versus extended care facility placement and his daughter has to be assigned as a DURABLE POWER OF GUM MACHINE FILLER for his care. 06/28: Patient had a fall yesterday in the afternoon and patient is complaining of right hip pain for which x-rays will be ordered. Right hip x-ray reveals severe right hip arthropathy. Lab work reveals platelet count of 123, WBC 4.6, hemoglobin 13.2. Sodium 131, potassium 5.1, chloride 95, CO2 27, BUN 23 creatinine 1.0. Consult for PT, OT and social work for discharge planning to [facility]. Patient will be discharged today once arrangements are completed. DISCHARGE DIAGNOSES: 1. Hyponatremia secondary to to hypervolemia. 2. Bilateral lower extremity venous stasis with venous ulceration. bilateral lower extremities Rocky wrap. 3. Hypertension and hypertensive cardiovascular disease. 4. Hyperlipidemia. 5. Vascular dementia. 6. Chronic alcohol use and dependence. 7. 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 8. Bilateral lower extremity neuropathy. 9. Recurrent dpression. DISCHARGE PLAN: [facility] Greater than 35 minutes utilized in discharge process for this patient. Impression and plan of care have been directed as dictated by the signing physician. Suzan Willingham nurse practitioner acting as scribe for signing physician. Patient Condition at Discharge: Stable Plan - Discharge Summary Discharge Rx Participant: No New Discharge Prescriptions: New Lactulose 20 gm PO DAILY #100 ml Sennosides-Docusate Sodium [Senokot-S] 2 tab PO HS #60 tablet Continue Memantine [Namenda] 5 mg PO DAILY Furosemide [Lasix] 40 mg PO DAILY Cyanocobalamin (Vitamin B-12) [Vitamin B-12] 500 mcg PO DAILY Thiamine [Vitamin B-1] 100 mg PO DAILY Cyclobenzaprine [Flexeril] 10 mg PO HS PRN PRN Reason: Muscle Spasm HYDROcodone/APAP 10-325MG [[place] 10-325] 1 tab PO QID PRN #12 tab PRN Reason: Pain Potassium Chloride [Klor-Con 20] 20 meq PO DAILY Losartan Potassium 50 mg PO DAILY DULoxetine HCL [Cymbalta] 30 mg PO DAILY capsule Multivitamins, Thera [Multivitamin (formulary)] 1 tab PO DAILY Folic Acid 1 mg PO DAILY Clotrimazole/Betamethasone Dip [Lotrisone Cream] 1 applic TOPICAL BID Pregabalin [Lyrica] 150 mg PO BID #6 cap Discontinued amLODIPine [Norvasc] 5 mg PO DAILY Discharge Medication List Furosemide [Lasix] 40 mg PO DAILY 05/06/21 [History] Losartan Potassium 50 mg PO DAILY 05/06/21 [History] Memantine [Namenda] 5 mg PO DAILY 05/06/21 [History] Potassium Chloride [Klor-Con 20] 20 meq PO DAILY 05/06/21 [History] DULoxetine HCL [Cymbalta] 30 mg PO DAILY capsule 05/07/21 [Rx] Clotrimazole/Betamethasone Dip [Lotrisone Cream] 1 applic TOPICAL BID 06/25/21 [History] Cyanocobalamin (Vitamin B-12) [Vitamin B-12] 500 mcg PO DAILY 06/25/21 [History] Cyclobenzaprine [Flexeril] 10 mg PO HS PRN 06/25/21 [History] Folic Acid 1 mg PO DAILY 06/25/21 [History] Multivitamins, Thera [Multivitamin (formulary)] 1 tab PO DAILY 06/25/21 [History] Thiamine [Vitamin B-1] 100 mg PO DAILY 06/25/21 [History] HYDROcodone/APAP 10-325MG [[place] 10-325] 1 tab PO QID PRN #12 tab 06/28/21 [Rx] Lactulose 20 gm PO DAILY #100 ml 06/28/21 [Rx] Pregabalin [Lyrica] 150 mg PO BID #6 cap 06/28/21 [Rx] Sennosides-Docusate Sodium [Senokot-S] 2 tab PO HS #60 tablet 06/28/21 [Rx] Follow up Appointment(s)/Referral(s): Johnny Lane MD [Primary Care Provider] - 1 Week ([facility]) Discharge Disposition: TRANSFER TO SNF/[facility]
[2021-06-28] MEDS: THIAMINE 100 MG TAB PO SCH (09:03)
[2021-06-28] MEDS: CYANOCOBALAMIN 500 MCG TAB PO SCH (09:03)
[2021-06-28] MEDS: ENOXAPARIN 40 MG/0.4 ML SYRINGE SQ SCH (09:04)
[2021-06-28] MEDS: FUROSEMIDE 40 MG TAB PO SCH (09:04)
[2021-06-28] MEDS: LOSARTAN 50 MG TAB PO SCH (09:04)
[2021-06-28] MEDS: MEMANTINE 5 MG TAB PO SCH (09:04)
[2021-06-28] MEDS: FOLIC ACID 1 MG TAB PO SCH (09:04)
[2021-06-28] MEDS: DULoxetine HCL 30 MG CAPSULE.DR PO SCH (09:04)
[2021-06-28] MEDS: POTASSIUM CHLORIDE ER 20 MEQ TAB.ER PO SCH (09:05)
[2021-06-28] MEDS: MULTIVITAMINS, THERA 1 EACH TAB PO SCH (09:05)
[2021-06-28] MEDS: PREGABALIN 75 MG CAP PO SCH (09:05)
[2021-06-28] MEDS ORDERED: LACTULOSE 20 GM/30 ML CUP PO SCH (09:45)
[2021-06-28] MEDS: CLOTRIMAZOLE/BETAMETH 1-0.05% CREAM 45 GM TUBE TOPICAL SCH (09:51)
[2021-06-28 11:33] LABS: African American GFR (CKD) 89.2 (60.0-200.0); Anion Gap 8.4 mmol/L (4.00-12.00); BUN/Creat Ratio 23.5 Ratio (12.00-20.00); Blood Urea Nitrogen 23.5 mg/dL (9.0-27.0); Carbon Dioxide 27.6 mmol/L (21.6-31.8); Potassium 5.1 mmol/L (3.5-5.5)
--- NOTE | 2021-06-28 11:53 | XR ---
EXAMINATION TYPE: XR Hip Complete RT DATE OF EXAM: 06/28/2021 COMPARISON: NONE HISTORY: Pain TECHNIQUE: 2 views submitted FINDINGS: There is no evidence of erosive change or acute fracture. Severe arthropathy of the right hip. IMPRESSION: 1. Severe right hip arthropathy.
[2021-06-28 12:53] VITALS: BP 134/74; PULSE 97; RESP 20; TEMP 99
[2021-06-28] MEDS ORDERED: SENNOSIDES-DOCUSATE SODIUM 1 EACH TAB PO SCH (21:00)
== END 2021-06-28 13:19 | DRG 640 ==
LOC: EC 09:52 → 5NMEDONC 13:33
PROVIDERS: ADMIT Internal Medicine; ATTEND Internal Medicine
DX: E87.1 Hypo-osmolality and hyponatremia (principal); G93.41 Metabolic encephalopathy; Z68.42 Body mass index [BMI] 45.0-49.9, adult; F33.9 Major depressive disorder, recurrent, unspecified; F10.20 Alcohol dependence, uncomplicated; Z91.14 Patient's other noncompliance with medication regimen; R26.2 Difficulty in walking, not elsewhere classified; E86.1 Hypovolemia; D69.6 Thrombocytopenia, unspecified; M48.061 Spinal stenosis, lumbar region without neurogenic claudication; E03.9 Hypothyroidism, unspecified; E66.9 Obesity, unspecified; I11.9 Hypertensive heart disease without heart failure; G89.4 Chronic pain syndrome; M16.11 Unilateral primary osteoarthritis, right hip; Z20.822 Contact with and (suspected) exposure to COVID-19; M47.812 Spondylosis without myelopathy or radiculopathy, cervical region; M47.816 Spondylosis without myelopathy or radiculopathy, lumbar region; F01.50 Vascular dementia, unspecified severity, without behavioral disturbance, psychotic disturbance, mood disturbance, and anxiety; E78.5 Hyperlipidemia, unspecified; G62.9 Polyneuropathy, unspecified; G25.81 Restless legs syndrome; I87.8 Other specified disorders of veins; E87.70 Fluid overload, unspecified; N40.0 Benign prostatic hyperplasia without lower urinary tract symptoms; W19.XXXA Unspecified fall, initial encounter; Z79.899 Other long term (current) drug therapy; Z87.828 Personal history of other (healed) physical injury and trauma
CPT/HCPCS: 36415; 71046; 73502; 80048; 80053; 80320; 81001; 82533; 82570; 83605; 83735; 83880; 83930; 83935; 84156; 84300; 84443; 84484; 84550; 85025; 87635; 93005; 96374; 96375; 99285

== ENCOUNTER 2022-01-30 19:31 | Inpatient (IN) | payer MEDICARE, OTHER ==
[2022-01-30 20:28] LABS: Amorphous Sediment,Urine Rare /hpf; Appearance,Urine Clear (Clear); Bilirubin,Urine Negative (Negative); Blood,Urine Small (Negative); Color,Urine Yellow; Glucose,Urine (UA) Negative (Negative); Hyaline Casts,Urine 5 /lpf (0-2); Ketones,Urine 2+ (Negative); Leukocyte Esterase,Urine Negative (Negative); Mucus,Urine Rare /hpf; Nitrite,Urine Negative (Negative); PH, Urine 6.5 (5.0-8.0); Protein,Urine Negative (Negative); RBC,Urine 2 /hpf (0-5); Specific Gravity,Urine 1.007 (1.001-1.035); Squamous Epithelial Cell,Urine <1 /hpf (0-4); Urobilinogen,Urine <2.0 mg/dL (<2.0); WBC,Urine 2 /hpf (0-5)
--- NOTE | 2022-01-30 20:51 | XR ---
EXAMINATION TYPE: XR chest 2V DATE OF EXAM: 01/30/2022 COMPARISON: 06/25/2021 HISTORY: Weakness TECHNIQUE: Frontal and lateral views of the chest are obtained. FINDINGS: There is no focal air space opacity, pleural effusion, or pneumothorax seen. The cardiac silhouette size is within normal limits. The osseous structures are intact. IMPRESSION: No acute cardiopulmonary process.
[2022-01-30 20:59] LABS: Basophils # (A) 0.1 k/uL (0-0.2); Basophils % (A) 1 %; Eosinophils # (A) 0.1 k/uL (0-0.7); Eosinophils % (A) 1 %; HCT 49.4 % (39.0-53.0); HGB 16.9 gm/dL (13.0-17.5); Lymphocytes # (A) 1.3 k/uL (1.0-4.8); Lymphocytes % (A) 9 %; MCH 33.1 pg (25.0-35.0); MCHC 34.2 g/dL (31.0-37.0); MCV 96.9 fL (80.0-100.0); Mean Platelet Volume 6.7; Monocytes # (A) 0.8 k/uL (0-1.0); Monocytes % (A) 5 %; Neutrophils # (A) 12.2 k/uL (1.3-7.7); Neutrophils % (A) 83 %; Platelet Count 318 k/uL (150-450); RDW 13.8 % (11.5-15.5); WBC 14.7 k/uL (3.8-10.6)
[2022-01-30 21:03] LABS: Partial Thromboplastin Time 24.8 sec (22.0-30.0)
[2022-01-30 21:05] LABS: ALT 22 U/L (4-49); AST 36 U/L (17-59); African American GFR (CKD) >90 (>60 ml/min/1.73 sqM); Albumin 4.1 g/dL (3.5-5.0); Alkaline Phosphatase 88 U/L (38-126); Anion Gap 13 mmol/L; Blood Urea Nitrogen 7 mg/dL (9-20); Calcium 9.2 mg/dL (8.4-10.2); Carbon Dioxide 20 mmol/L (22-30); Chloride 88 mmol/L (98-107); Glucose 92 mg/dL (74-99); Non-African American GFR(CKD) >90 (>60 ml/min/1.73 sqM); Potassium 4.3 mmol/L (3.5-5.1); Sodium 121 mmol/L (137-145); Total Bilirubin 1.7 mg/dL (0.2-1.3); Total Protein 6.8 g/dL (6.3-8.2)
[2022-01-30] MEDS ORDERED: SODIUM CHLORIDE 0.9% 1,000 ML IV ONE (22:53)
--- NOTE | 2022-01-30 22:53 | ED ---
General Adult HPI - General Chief complaint: Weakness Stated complaint: Back pain Time Seen by Provider: 01/30/22 19:42 Source: patient, EMS Mode of arrival: EMS - History of Present Illness Initial comments: Milton is a 71-year-old male who presents the ER today via ambulance. Per the patient he called the ambulance because he is just too weak to get out of his chair. EMS reported to me that the patient's house condition was nearly unlivable, it was filthy, the patient does not confirm self, [employer] provides his meals during the week but there is no food for him on the weekends. Patient doesn't believe he's eaten since Monday. Patient doesn't believe his taken any medications in the past year. Uncertain of his medical history. - Related Data Home Medications Medication Instructions Recorded Confirmed Furosemide [Lasix] 40 mg PO DAILY 05/06/21 06/25/21 Losartan Potassium 50 mg PO DAILY 05/06/21 06/25/21 Memantine [Namenda] 5 mg PO DAILY 05/06/21 06/25/21 Potassium Chloride [Klor-Con 20] 20 meq PO DAILY 05/06/21 06/25/21 Clotrimazole/Betamethasone Dip 1 applic TOPICAL BID 06/25/21 06/25/21 [Lotrisone Cream] Cyanocobalamin (Vitamin B-12) 500 mcg PO DAILY 06/25/21 06/25/21 [Vitamin B-12] Cyclobenzaprine [Flexeril] 10 mg PO HS PRN 06/25/21 06/25/21 Folic Acid 1 mg PO DAILY 06/25/21 06/25/21 Multivitamins, Thera [Multivitamin 1 tab PO DAILY 06/25/21 06/25/21 (formulary)] Thiamine [Vitamin B-1] 100 mg PO DAILY 06/25/21 06/25/21 Previous Rx's Medication Instructions Recorded DULoxetine HCL [Cymbalta] 30 mg PO DAILY capsule 05/07/21 HYDROcodone/APAP 10-325MG [Pool 1 tab PO QID PRN #12 tab 06/28/21 10-325] Lactulose 20 gm PO DAILY #100 ml 06/28/21 Pregabalin [Lyrica] 150 mg PO BID #6 cap 06/28/21 Sennosides-Docusate Sodium 2 tab PO HS #60 tablet 06/28/21 [Senokot-S] Allergies Allergy/AdvReac Type Severity Reaction Status Date / Time No Known Allergies Allergy Verified 01/30/22 20:07 Review of Systems ROS Statement: Those systems with pertinent positive or pertinent negative responses have been documented in the HPI. ROS Other: All systems not noted in ROS Statement are negative. Past Medical History Past Medical History: Hypertension, Osteoarthritis (OA) Additional Past Medical History / Comment(s): ETOH abuse, chronic back pain, BLE neuropathy, lymphedema, multiple falls History of Any Multi-Drug Resistant Organisms: None Reported Past Surgical History: Back Surgery, Orthopedic Surgery, Tonsillectomy Additional Past Surgical History / Comment(s): 3 back laminectomies, hand surgery s/p trauma to reattatch tendons Past Anesthesia/Blood Transfusion Reactions: No Reported Reaction Past Psychological History: No Psychological Hx Reported Smoking Status: Never smoker Past Alcohol Use History: Daily Past Drug Use History: None Reported - Past Family History Father Family Medical History: Hypertension Mother Family Medical History: Cancer Additional Family Medical History / Comment(s): Lung cancer Brother(s) Family Medical History: No Reported History Sister(s) Family Medical History: Hypertension Daughter(s) Family Medical History: No Reported History General Exam - General Exam Comments Initial Comments: Physical Exam GENERAL: Patient is well-developed and well-nourished. Patient is nontoxic and well-hydrated and is in no distress. Obese HENT: Normocephalic, Atraumatic. EYES: PERRL, EOMI PULMONARY: Unlabored respirations. CARDIOVASCULAR: RRR ABDOMEN: Soft and nontender with normal bowel sounds. SKIN: Skin is clear with no lesions or rashes and otherwise unremarkable. : Deferred NEUROLOGIC: Patient is alert and oriented x3 but poor historian Moving all extremities spontaneously MUSCULOSKELETAL: No obvious injury PSYCHIATRIC: Normal psychiatric evaluation. Course Vital Signs 01/30/22 19:59 Temperature 98.3 F Pulse Rate 80 Respiratory 18 Rate Blood Pressure 138/73 O2 Sat by Pulse 98 Oximetry EKG Findings - EKG Comments: EKG Findings:: EKG was obtained at 2011, rate is 74 rhythm is sinus [place] prolonged at 203, QRS 97 QTC 427 acute abscess elevations or depressions no evidence of ischemia or infarction. Medical Decision Making - Medical Decision Making The patient was seen and evaluated, history was obtained from patient and EMS. EMS expressed concern about the patient's living conditions the intent on filing a 3200 or report to Adult Protective Services as they don't feel the patient is to call caring for himself or living independently. Labs are obtained patient is hyponatremic, mild leukocytosis, urine does have ketones I suspect he has a component of starvation ketosis. Patient will be admitted for hyponatremia, IV fluids were ordered patient refused the bolus was agreeable to IV fluids. Patient eating and drinking in the ER. Dr Lane accepts admission - Lab Data Result diagrams: 01/30/22 20:08 01/30/22 20:08 Lab Results 01/30/22 01/30/22 01/30/22 Range/Units 20:08 20:08 20:08 WBC 14.7 H (3.8-10.6) k/uL RBC 5.10 (4.30-5.90) m/uL Hgb 16.9 (13.0-17.5) gm/dL Hct 49.4 (39.0-53.0) % MCV 96.9 (80.0-100.0) fL MCH 33.1 (25.0-35.0) pg MCHC 34.2 (31.0-37.0) g/dL RDW 13.8 (11.5-15.5) % Plt Count 318 (150-450) k/uL MPV 6.7 Neutrophils % 83 % Lymphocytes % 9 % Monocytes % 5 % Eosinophils % 1 % Basophils % 1 % Neutrophils # 12.2 H (1.3-7.7) k/uL Lymphocytes # 1.3 (1.0-4.8) k/uL Monocytes # 0.8 (0-1.0) k/uL Eosinophils # 0.1 (0-0.7) k/uL Basophils # 0.1 (0-0.2) k/uL PT 11.0 (9.0-12.0) sec INR 1.0 (<1.2) APTT 24.8 (22.0-30.0) sec Sodium 121 L (137-145) mmol/L Potassium 4.3 (3.5-5.1) mmol/L Chloride 88 L (98-107) mmol/L Carbon Dioxide 20 L (22-30) mmol/L Anion Gap 13 mmol/L BUN 7 L (9-20) mg/dL Creatinine 0.70 (0.66-1.25) mg/dL Est GFR (CKD-EPI)AfAm >90 (>60 ml/min/1.73 sqM) Est GFR (CKD-EPI)NonAf >90 (>60 ml/min/1.73 sqM) Glucose 92 (74-99) mg/dL Lactic Ac Sepsis Rflx Plasma Lactic Acid Gerardo (0.7-2.0) mmol/L Calcium 9.2 (8.4-10.2) mg/dL Total Bilirubin 1.7 H (0.2-1.3) mg/dL AST 36 (17-59) U/L ALT 22 (4-49) U/L Alkaline Phosphatase 88 (38-126) U/L Troponin I (0.000-0.034) ng/mL Total Protein 6.8 (6.3-8.2) g/dL Albumin 4.1 (3.5-5.0) g/dL Urine Color Urine Appearance (Clear) Urine pH (5.0-8.0) Ur Specific [place] (1.001-1.035) Urine Protein (Negative) Urine Glucose (UA) (Negative) Urine Ketones (Negative) Urine Blood (Negative) Urine Nitrite (Negative) Urine Bilirubin (Negative) Urine Urobilinogen (<2.0) mg/dL Ur Leukocyte Esterase (Negative) Urine RBC (0-5) /hpf Urine WBC (0-5) /hpf Ur Squamous Epith Cells (0-4) /hpf Amorphous Sediment (None) /hpf Hyaline Casts (0-2) /lpf Urine Mucus (None) /hpf 01/30/22 01/30/22 01/30/22 Range/Units 20:08 20:10 20:26 WBC (3.8-10.6) k/uL RBC (4.30-5.90) m/uL Hgb (13.0-17.5) gm/dL Hct (39.0-53.0) % MCV (80.0-100.0) fL MCH (25.0-35.0) pg MCHC (31.0-37.0) g/dL RDW (11.5-15.5) % Plt Count (150-450) k/uL MPV Neutrophils % % Lymphocytes % % Monocytes % % Eosinophils % % Basophils % % Neutrophils # (1.3-7.7) k/uL Lymphocytes # (1.0-4.8) k/uL Monocytes # (0-1.0) k/uL Eosinophils # (0-0.7) k/uL Basophils # (0-0.2) k/uL PT (9.0-12.0) sec INR (<1.2) APTT (22.0-30.0) sec Sodium (137-145) mmol/L Potassium (3.5-5.1) mmol/L Chloride (98-107) mmol/L Carbon Dioxide (22-30) mmol/L Anion Gap mmol/L BUN (9-20) mg/dL Creatinine (0.66-1.25) mg/dL Est GFR (CKD-EPI)AfAm (>60 ml/min/1.73 sqM) Est GFR (CKD-EPI)NonAf (>60 ml/min/1.73 sqM) Glucose (74-99) mg/dL Lactic Ac Sepsis Rflx Plasma Lactic Acid Gerardo 2.4 H* (0.7-2.0) mmol/L Calcium (8.4-10.2) mg/dL Total Bilirubin (0.2-1.3) mg/dL AST (17-59) U/L ALT (4-49) U/L Alkaline Phosphatase (38-126) U/L Troponin I <0.012 (0.000-0.034) ng/mL Total Protein (6.3-8.2) g/dL Albumin (3.5-5.0) g/dL Urine Color Yellow Urine Appearance Clear (Clear) Urine pH 6.5 (5.0-8.0) Ur Specific [place] 1.007 (1.001-1.035) Urine Protein Negative (Negative) Urine Glucose (UA) Negative (Negative) Urine Ketones 2+ H (Negative) Urine Blood Small H (Negative) Urine Nitrite Negative (Negative) Urine Bilirubin Negative (Negative) Urine Urobilinogen <2.0 (<2.0) mg/dL Ur Leukocyte Esterase Negative (Negative) Urine RBC 2 (0-5) /hpf Urine WBC 2 (0-5) /hpf Ur Squamous Epith Cells <1 (0-4) /hpf Amorphous Sediment Rare H (None) /hpf Hyaline Casts 5 H (0-2) /lpf Urine Mucus Rare H (None) /hpf 01/30/22 Range/Units 21:07 WBC (3.8-10.6) k/uL RBC (4.30-5.90) m/uL Hgb (13.0-17.5) gm/dL Hct (39.0-53.0) % MCV (80.0-100.0) fL MCH (25.0-35.0) pg MCHC (31.0-37.0) g/dL RDW (11.5-15.5) % Plt Count (150-450) k/uL MPV Neutrophils % % Lymphocytes % % Monocytes % % Eosinophils % % Basophils % % Neutrophils # (1.3-7.7) k/uL Lymphocytes # (1.0-4.8) k/uL Monocytes # (0-1.0) k/uL Eosinophils # (0-0.7) k/uL Basophils # (0-0.2) k/uL PT (9.0-12.0) sec INR (<1.2) APTT (22.0-30.0) sec Sodium (137-145) mmol/L Potassium (3.5-5.1) mmol/L Chloride (98-107) mmol/L Carbon Dioxide (22-30) mmol/L Anion Gap mmol/L BUN (9-20) mg/dL Creatinine (0.66-1.25) mg/dL Est GFR (CKD-EPI)AfAm (>60 ml/min/1.73 sqM) Est GFR (CKD-EPI)NonAf (>60 ml/min/1.73 sqM) Glucose (74-99) mg/dL Lactic Ac Sepsis Rflx Y Plasma Lactic Acid Gerardo (0.7-2.0) mmol/L Calcium (8.4-10.2) mg/dL Total Bilirubin (0.2-1.3) mg/dL AST (17-59) U/L ALT (4-49) U/L Alkaline Phosphatase (38-126) U/L Troponin I (0.000-0.034) ng/mL Total Protein (6.3-8.2) g/dL Albumin (3.5-5.0) g/dL Urine Color Urine Appearance (Clear) Urine pH (5.0-8.0) Ur Specific [place] (1.001-1.035) Urine Protein (Negative) Urine Glucose (UA) (Negative) Urine Ketones (Negative) Urine Blood (Negative) Urine Nitrite (Negative) Urine Bilirubin (Negative) Urine Urobilinogen (<2.0) mg/dL Ur Leukocyte Esterase (Negative) Urine RBC (0-5) /hpf Urine WBC (0-5) /hpf Ur Squamous Epith Cells (0-4) /hpf Amorphous Sediment (None) /hpf Hyaline Casts (0-2) /lpf Urine Mucus (None) /hpf Disposition Clinical Impression: Hyponatremia Disposition: ADMITTED IP TO THIS HOSP Condition: Serious Is patient prescribed a controlled substance at d/c from ED?: No Referrals: Johnny Lane MD [Primary Care Provider] - 1-2 days
[2022-01-30] MEDS ORDERED: ONDANSETRON 4 MG/2 ML VIAL IVP PRN (23:07)
[2022-01-30] MEDS ORDERED: NALOXONE 0.4 MG/ML 1 ML VIAL IV PRN (23:07)
[2022-01-30] MEDS: SODIUM CHLORIDE 0.9% 1,000 ML IV SCH (23:11)
[2022-01-30] MEDS ORDERED: diphenhydrAMINE 50 MG/ML 1 ML VIAL IVP STA (23:11)
[2022-01-31] MEDS: KETOROLAC 15 MG/ML 1 ML VIAL IVP PRN ×3 (00:43→13:27)
[2022-01-31 05:59] LABS: Basophils # (A) 0.1 k/uL (0-0.2); Basophils % (A) 1 %; Eosinophils # (A) 0.1 k/uL (0-0.7); Eosinophils % (A) 1 %; HCT 43.8 % (39.0-53.0); HGB 14.3 gm/dL (13.0-17.5); Lymphocytes # (A) 1.6 k/uL (1.0-4.8); Lymphocytes % (A) 12 %; MCH 32.3 pg (25.0-35.0); MCHC 32.7 g/dL (31.0-37.0); MCV 98.6 fL (80.0-100.0); Monocytes # (A) 1.1 k/uL (0-1.0); Monocytes % (A) 8 %; Neutrophils % (A) 77 %; Platelet Count 245 k/uL (150-450); RBC 4.44 m/uL (4.30-5.90); RDW 13.1 % (11.5-15.5)
[2022-01-31 06:07] LABS: ALT 19 U/L (4-49); AST 34 U/L (17-59); African American GFR (CKD) >90 (>60 ml/min/1.73 sqM); Albumin 3.4 g/dL (3.5-5.0); Alkaline Phosphatase 70 U/L (38-126); Anion Gap 8 mmol/L; Blood Urea Nitrogen 16 mg/dL (9-20); Calcium 8.6 mg/dL (8.4-10.2); Carbon Dioxide 25 mmol/L (22-30); Chloride 88 mmol/L (98-107); Glucose 94 mg/dL (74-99); Non-African American GFR(CKD) 83 (>60 ml/min/1.73 sqM); Potassium 4.4 mmol/L (3.5-5.1); Sodium 121 mmol/L (137-145); Total Bilirubin 1.4 mg/dL (0.2-1.3); Total Protein 5.9 g/dL (6.3-8.2)
[2022-01-31] MEDS: SODIUM CHLORIDE 0.9% 1,000 ML IV SCH ×2 (11:18→20:58)
[2022-01-31] MEDS ORDERED: LIDOCAINE 4% TOPICAL PRN (12:15)
[2022-01-31] MEDS: ASPIRIN 81 MG PO SCH (13:27)
--- NOTE | 2022-01-31 13:54 | P.HPIM ---
History of Present Illness H&P Date: 01/31/22 HISTORY OF PRESENT ILLNESS: This is a 71-year-old male one of my patient with a previous medical history significant for hypertension and hypertensive cardiovascular disease, hyperlipidemia, obesity with obstructive sleep apnea, history of chronic alcohol use and dependence with the peripheral neuropathy, significant spondylosis of the lumbar spine with spinal stenosis and significant chronic low back pain. Patient states that 2 days ago he was sitting in a chair and he went to get up and his legs wouldn't move. He states he was unable to move for 2 days. No diarrhea. No alcohol intake. He states he has been urinating adequately. His daughter last visited him 2 days ago. Patient was brought into [facility] by EMS. Apparently was Adult Protective Services report done by EMS regarding cleanliness and safety at home. Patient was found to be afebrile, heart rate 80, blood pressure 138/73, pulse ox 90% on room air. WBC 14.7, hemoglobin 16.9, platelet count 318. Sodium 121, potassium 4.3, chloride 88, CO2 20, BUN 17 creatinine 0.7. Lactic acid 2.4 and repeat 1.8. Total bilirubin 1.7 otherwise liver function tests are normal. Troponin negative. Urinalysis 2+ ketones and small blood. Repeat sodium this morning is 121 and white count is down to 13. Chest x-ray reveals no acute cardio pulmonary process. Patient admitted to the [facility] floor, consult requested with nephrology. REVIEW OF SYSTEMS: Constitutional: No documented fever, no chills, no night sweats. No weight change. positive for weakness , reports fatigue reports lethargy. Positive for daytime sleepiness. HEENT: No headache. No blurred vision or double vision, no loss of vision. No loss of Hearing, no ringing in the ears, no dizziness. No nasal drainage or congestion. No epistaxis. No sore throat. Lungs: No shortness of breath, no cough, no sputum production. No wheezing. Reports dyspnea with activity. Cardiovascular: No chest pain, positive for lower extremity edema. No palpitations. No paroxysmal nocturnal dyspnea. No orthopnea. No lightheadedness or dizziness. No syncopal episodes.Positive for nocturia. Abdominal: No abdominal pain. No nausea, vomiting. No diarrhea. No constipation. No bloody or tarry stools . No loss of appetite. Genitourinary: No dysuria, increased frequency, urgency. No urinary retention. Musculoskeletal: positive for neck pain, positive for chronic low back pain, positive for significant pain in both lower extremities with significant neuropathy, positive for gait dysfunction, positive for lower extremity weak ness. Integumentary: Positive for venous ulcerations of right lower extremity , no lesions. No rash or pruritus. No unusual bruising. Does appear to have seborrheic dermatitis Neurologic: No aphasia. No facial droop. Memory loss. No head injury. No headache, positive for paresthesia in both lower extremities Psychiatric: Patient does appear to be somewhat depressed, appears to be a bit anxious, no suicidal thoughts or ideation. Endocrine: No abnormal blood sugars, increased weight. PAST MEDICAL HISTORY: 1. Hypertension and hypertensive cardiovascular disease. 2. Hyperlipidemia. 3. Hypothyroidism. 4. Chronic venous stasis with stasis dermatitis. 5. Chronic alcohol use and dependence. 6. Obstructive sleep apnea. 7. Peripheral neuropathy. 8. Vascular dementia. 9. Enlarged prostate. 10. 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 11. Restless leg syndrome. PAST SURGICAL HISTORY: 1. Laminectomies in the lumbar spine 3. 2. Tonsillectomy. 3. Hand surgery with tendon repair. SOCIAL HISTORY: Patient denies a history of smoking, he drinks about 3 beers every other day, he used to drink a lot heavier than that, he denies any drug use or abuse, he denies any marijuana use and lives along, he has a daughter who comes a check on him, only on the weekend. FAMILY HISTORY: Father at age 93 from old age. History of hypertension and myocardial infarction, mother at age of 84 from lung cancer and she was heavy smoker, patient has 2 brothers one of them is super morbid obesity and other one is okay, patient has 2 sisters one of them is 63-year-old with history of venous stasis, the other one is fine, patient has a daughter with no major medical problems 35-year-old. PHYSICAL EXAMINATION: General: This is a 71-year-old male who is resting in bed and does not appear to be in acute distress. HEENT: Head is atraumatic, normocephalic, pupils were equal round reactive to light and recommendation, extraocular muscle movement were intact, sclera nonicteric, conjunctivae were pale, mucous membranes of the mouth are somewhat dry. Neck: Supple, no JVP, normal carotid upstroke bilaterally, no lymphadenopathy. Chest: Decreased breath sounds at the bases, few rhonchi, no expiratory wheezes, no chest wall tenderness, no intercostal retractions. Heart: First heart sound is normal, second heart sound is normal there is systolic ejection murmur 2/6 located in the left sternal border. Abdomen: Soft, nontender, nondistended, positive bowel sounds. Extremities: There is chronic significant venous stasis of both lower extremity with a chronic skin changes dorsalis pedis +1 bilaterally poor foot hygiene. Neurologic examination: Patient is awake alert and oriented X 3, cranial nerves II-12 appear grossly intact, muscle power were 4 out of 5 in upper extremities and 3out of 5 in bilateral lower extremities, deep tendon reflexes were depressed bilaterally. ASSESSMENT AND PLAN: 1. Hyponatremia secondary to to hypervolemia. Continue IV fluids 0.9 normal saline at 75 mL per hour, monitor the patient's serum osmolality, urine osmolality, urine sodium, cortisol level, TSH with free T4, uric acid level. Nephrology consult. 2. Lactic acidosis, resolved. Continue IV fluids. 3. Hypertension and hypertensive cardiovascular disease. restart the patient on losartan 50 mg orally once every day. 4. Hyperlipidemia. Continue atorvastatin 40 mg daily. 5. Vascular dementia. We will continue Namenda 5 mg po bid 6. Chronic alcohol use and dependence. Patient states he has been abstaining from alcohol. No need for [facility] protocol. 7. 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 Continue [place] 10/325 mg 1 tablet every 6 hours as needed. 8. Bilateral lower extremity neuropathy continue patient on Lyrica 200 mg orally twice every day. 9. Depression. Continue patient on Cymbalta 60 mg orally once every day. 10. DVT prophylaxis. Continue Lovenox 40 mg subcutaneously every 24 hours. 11. GI prophylaxis. Continue Protonix 40 mg orally once every day. 12. Admit to inpatient. Estimate a length of stay 2 midnights. 13. Patient is full code. DISCHARGE PLAN TBD, possible subacute rehab. Impression and plan of care have been directed as dictated by the signing physician. Suzan Willingham nurse practitioner acting as scribe for signing physician. Past Medical History Past Medical History: Hypertension, Osteoarthritis (OA) Additional Past Medical History / Comment(s): ETOH abuse, chronic back pain, BLE neuropathy, lymphedema, multiple falls History of Any Multi-Drug Resistant Organisms: None Reported Past Surgical History: Back Surgery, Orthopedic Surgery, Tonsillectomy Additional Past Surgical History / Comment(s): 3 back laminectomies, hand surgery s/p trauma to reattatch tendons Past Anesthesia/Blood Transfusion Reactions: No Reported Reaction Past Psychological History: No Psychological Hx Reported Additional Psychological History / Comment(s): Patient has fear that he has onset dementia. Smoking Status: Never smoker Past Alcohol Use History: Daily Additional Past Alcohol Use History / Comment(s): Patient has been clean of alcohol use for 3 days. Past Drug Use History: None Reported - Past Family History Father Family Medical History: Hypertension Mother Family Medical History: Cancer Additional Family Medical History / Comment(s): Lung cancer Brother(s) Family Medical History: No Reported History Sister(s) Family Medical History: Hypertension Daughter(s) Family Medical History: No Reported History Medications and Allergies Home Medications Medication Instructions Recorded Confirmed Type Furosemide [Lasix] 40 mg PO DAILY 05/06/21 01/31/22 History Losartan Potassium 50 mg PO DAILY 05/06/21 01/31/22 History Memantine [Namenda] 5 mg PO BID 05/06/21 01/31/22 History Potassium Chloride [Klor-Con 20] 20 meq PO DAILY 05/06/21 01/31/22 History Clotrimazole/Betamethasone Dip 1 applic TOPICAL BID 06/25/21 01/31/22 History [Lotrisone Cream] Cyanocobalamin (Vitamin B-12) 500 mcg PO DAILY 06/25/21 01/31/22 History [Vitamin B-12] Cyclobenzaprine [Flexeril] 10 mg PO HS PRN 06/25/21 01/31/22 History Multivitamins, Thera [Multivitamin 1 tab PO DAILY 06/25/21 01/31/22 History (formulary)] Thiamine [Vitamin B-1] 100 mg PO DAILY 06/25/21 01/31/22 History HYDROcodone/APAP 10-325MG [[place] 1 tab PO QID PRN #12 tab 06/28/21 01/31/22 Rx 10-325] Sennosides-Docusate Sodium 2 tab PO HS #60 tablet 06/28/21 01/31/22 Rx [Senokot-S] Ammonium Lactate Lotion 1 applic TOPICAL BID 01/31/22 01/31/22 History [Lac-Hydrin 12% Lotion] Aspirin EC [Ecotrin Low Dose] 81 mg PO DAILY 01/31/22 01/31/22 History Atorvastatin [Lipitor] 40 mg PO DAILY 01/31/22 01/31/22 History DULoxetine HCL [Cymbalta] 60 mg PO DAILY 01/31/22 01/31/22 History Lactulose 10 gm PO BID 01/31/22 01/31/22 History Lidocaine 4% Patch 1 patch TOPICAL Q12H PRN 01/31/22 01/31/22 History Pregabalin [Lyrica] 200 mg PO BID 01/31/22 01/31/22 History Allergies Allergy/AdvReac Type Severity Reaction Status Date / Time No Known Allergies Allergy Verified 01/31/22 10:03 Physical Exam Vitals: Vital Signs Temp Pulse Pulse Resp BP BP Pulse Ox 01/31/22 08:41 98 01/31/22 08:00 69 18 01/31/22 07:28 97.5 F L 69 18 169/69 98 01/31/22 01:15 98.5 F 82 16 118/62 96 01/30/22 19:59 98.3 F 80 18 138/73 98 Intake and Output 01/30/22 01/31/22 01/31/22 22:59 06:59 14:59 Output Total 300 Balance -300 Output: Urine 300 Other: Weight 136.078 kg 136.078 kg Results CBC & Chem 7: 01/31/22 04:49 01/31/22 04:49 Labs: Abnormal Lab Results - Last 24 Hours (Table) 01/30/22 01/30/22 01/30/22 Range/Units 20:08 20:08 20:10 WBC 14.7 H (3.8-10.6) k/uL Neutrophils # 12.2 H (1.3-7.7) k/uL Monocytes # (0-1.0) k/uL Sodium 121 L (137-145) mmol/L Chloride 88 L (98-107) mmol/L Carbon Dioxide 20 L (22-30) mmol/L BUN 7 L (9-20) mg/dL Plasma Lactic Acid Gerardo (0.7-2.0) mmol/L Total Bilirubin 1.7 H (0.2-1.3) mg/dL Total Protein (6.3-8.2) g/dL Albumin (3.5-5.0) g/dL Urine Ketones 2+ H (Negative) Urine Blood Small H (Negative) Amorphous Sediment Rare H (None) /hpf Hyaline Casts 5 H (0-2) /lpf Urine Mucus Rare H (None) /hpf 01/30/22 01/31/22 01/31/22 Range/Units 20:26 04:49 04:49 WBC 13.0 H (3.8-10.6) k/uL Neutrophils # 10.0 H (1.3-7.7) k/uL Monocytes # 1.1 H (0-1.0) k/uL Sodium 121 L (137-145) mmol/L Chloride 88 L (98-107) mmol/L Carbon Dioxide (22-30) mmol/L BUN (9-20) mg/dL Plasma Lactic Acid Gerardo 2.4 H* (0.7-2.0) mmol/L Total Bilirubin 1.4 H (0.2-1.3) mg/dL Total Protein 5.9 L (6.3-8.2) g/dL Albumin 3.4 L (3.5-5.0) g/dL Urine Ketones (Negative) Urine Blood (Negative) Amorphous Sediment (None) /hpf Hyaline Casts (0-2) /lpf Urine Mucus (None) /hpf Thrombosis Risk Factor Assmnt - Choose All That Apply Any of the Below Risk Factors Present?: No Each Risk Factor Represents 2 Points: Age 61-74 years Other congenital or acquired thrombophilia - If yes, enter type in comment: No Thrombosis Risk Factor Assessment Total Risk Factor Score: 2 Thrombosis Risk Factor Assessment Level: Low Risk
[2022-01-31] MEDS: HEPARIN SODIUM,PORCINE/PF 5,000 UNIT/0.5 ML SYRINGE SQ SCH ×2 (15:31→23:40)
[2022-01-31] MEDS: PREGABALIN 100 MG CAP PO SCH (20:58)
[2022-01-31] MEDS: MEMANTINE 5 MG TAB PO SCH (20:58)
[2022-01-31] MEDS: LACTULOSE 20 GM/30 ML CUP PO SCH (20:59)
[2022-01-31] MEDS: AMMONIUM LACTATE 12% LOTION 225 GM BTL TOPICAL SCH (20:59)
[2022-01-31] MEDS: SENNOSIDES-DOCUSATE SODIUM 1 EACH TAB PO SCH (20:59)
[2022-02-01 05:52] LABS: African American GFR (CKD) >90 (>60 ml/min/1.73 sqM); Anion Gap 4 mmol/L; Blood Urea Nitrogen 13 mg/dL (9-20); Calcium 8.2 mg/dL (8.4-10.2); Carbon Dioxide 20 mmol/L (22-30); Chloride 102 mmol/L (98-107); Glucose 99 mg/dL (74-99); Non-African American GFR(CKD) >90 (>60 ml/min/1.73 sqM); Potassium 4.5 mmol/L (3.5-5.1); Sodium 126 mmol/L (137-145)
[2022-02-01] MEDS: ATORVASTATIN 40 MG TAB PO SCH (07:45)
[2022-02-01] MEDS: ASPIRIN 81 MG PO SCH (07:46)
[2022-02-01] MEDS: THIAMINE 100 MG TAB PO SCH (07:46)
[2022-02-01] MEDS: MULTIVITAMINS, THERA 1 EACH TAB PO SCH (07:46)
[2022-02-01] MEDS: MEMANTINE 5 MG TAB PO SCH ×2 (07:47→20:12)
[2022-02-01] MEDS: DULoxetine HCL 60 MG CAPSULE.DR PO SCH (07:47)
[2022-02-01] MEDS: LOSARTAN 50 MG TAB PO SCH (07:47)
[2022-02-01] MEDS: PANTOPRAZOLE 40 MG TABLET PO SCH (07:47)
[2022-02-01] MEDS: CYANOCOBALAMIN 500 MCG TAB PO SCH (07:47)
[2022-02-01] MEDS: PREGABALIN 100 MG CAP PO SCH ×2 (07:48→20:12)
[2022-02-01] MEDS: LACTULOSE 20 GM/30 ML CUP PO SCH ×2 (07:49→20:12)
[2022-02-01] MEDS: ENOXAPARIN 40 MG/0.4 ML SYRINGE SQ SCH (07:50)
[2022-02-01] MEDS: HYDROcodone/APAP 10-325MG 1 EACH TAB PO PRN ×2 (07:54→20:11)
[2022-02-01] MEDS: SODIUM CHLORIDE 0.9% 1,000 ML IV SCH ×2 (08:46→20:16)
[2022-02-01] MEDS: AMMONIUM LACTATE 12% LOTION 225 GM BTL TOPICAL SCH ×2 (08:47→20:12)
[2022-02-01 10:23] LABS: Magnesium 2.1 mg/dL (1.5-2.4)
--- NOTE | 2022-02-01 12:04 | P.NPCON ---
History of Present Illness - Reason for Consult hyponatremia - History of Present Illness Reason for consultation: Hyponatremia History of present illness: This time patient is a 71-year-old male seen in re nal consultation for hyponatremia. Patient presented to the hospital due to weakness. Patient states he tried to get off the bed to use the bathroom but was unable to do so. He denies any vomiting or diarrhea. Oral intake has been fair. He denies excessive fluid intake. Sodium level was 121 on admission and he is receiving normal saline. Is up to 126 today. He admits to good urine output. No hematuria or dysuria. No history of diabetes. Denies any history of kidney disease. No history of malignancy. Blood pressure stable. He was taking diuretics at home which are currently held. No edema at this time. He's currently on room air. He is ambulating and feels better. He does not wish to go to rehab facility. He is receiving Toradol for pain. Vital signs are stable. General: Awake and alert. No acute distress. HEENT: Head exam is unremarkable. LUNGS: Breath sounds decreased. HEART: Rate and Rhythm are regular. ABDOMEN: Soft, obese. EXTREMITITES: No edema. Past Medical History Past Medical History: Hypertension, Osteoarthritis (OA) Additional Past Medical History / Comment(s): ETOH abuse, chronic back pain, BLE neuropathy, lymphedema, multiple falls History of Any Multi-Drug Resistant Organisms: None Reported Past Surgical History: Back Surgery, Orthopedic Surgery, Tonsillectomy Additional Past Surgical History / Comment(s): 3 back laminectomies, hand surgery s/p trauma to reattatch tendons Past Anesthesia/Blood Transfusion Reactions: No Reported Reaction Past Psychological History: No Psychological Hx Reported Additional Psychological History / Comment(s): Patient has fear that he has onset dementia. Smoking Status: Never smoker Past Alcohol Use History: Daily Additional Past Alcohol Use History / Comment(s): Patient has been clean of alcohol use for 3 days. Past Drug Use History: None Reported - Past Family History Father Family Medical History: Hypertension Mother Family Medical History: Cancer Additional Family Medical History / Comment(s): Lung cancer Brother(s) Family Medical History: No Reported History Sister(s) Family Medical History: Hypertension Daughter(s) Family Medical History: No Reported History Medications and Allergies Home Medications Medication Instructions Recorded Confirmed Type Furosemide [Lasix] 40 mg PO DAILY 08/26/21 05/23/22 History Losartan Potassium 50 mg PO DAILY 05/06/21 01/31/22 History Memantine [Namenda] 5 mg PO BID 05/06/21 01/31/22 History Potassium Chloride [Klor-Con 20] 20 meq PO DAILY 05/06/21 01/31/22 History Clotrimazole/Betamethasone Dip 1 applic TOPICAL BID 06/25/21 01/31/22 History [Lotrisone Cream] Cyanocobalamin (Vitamin B-12) 500 mcg PO DAILY 06/25/21 01/31/22 History [Vitamin B-12] Cyclobenzaprine [Flexeril] 10 mg PO HS PRN 06/25/21 01/31/22 History Multivitamins, Thera [Multivitamin 1 tab PO DAILY 06/25/21 01/31/22 History (formulary)] Thiamine [Vitamin B-1] 100 mg PO DAILY 06/25/21 01/31/22 History HYDROcodone/APAP 10-325MG [[place] 1 tab PO QID PRN #12 tab 06/28/21 01/31/22 Rx 10-325] Sennosides-Docusate Sodium 2 tab PO HS #60 tablet 06/28/21 01/31/22 Rx [Senokot-S] Ammonium Lactate Lotion 1 applic TOPICAL BID 01/31/22 01/31/22 History [Lac-Hydrin 12% Lotion] Aspirin EC [Ecotrin Low Dose] 81 mg PO DAILY 01/31/22 01/31/22 History Atorvastatin [Lipitor] 40 mg PO DAILY 01/31/22 01/31/22 History DULoxetine HCL [Cymbalta] 60 mg PO DAILY 01/31/22 01/31/22 History Lactulose 10 gm PO BID 01/31/22 01/31/22 History Lidocaine 4% Patch 1 patch TOPICAL Q12H PRN 01/31/22 01/31/22 History Pregabalin [Lyrica] 200 mg PO BID 01/31/22 01/31/22 History Allergies Allergy/AdvReac Type Severity Reaction Status Date / Time No Known Allergies Allergy Verified 01/31/22 10:03 Physical Exam Vitals: Vital Signs Temp Pulse Resp BP Pulse Ox 02/01/22 07:49 98.9 F 76 20 143/78 97 05/24/22 07:10 68 20 02/01/22 01:42 97.7 F 68 20 125/72 97 01/31/22 19:57 98.3 F 68 17 145/78 99 01/31/22 14:00 98.2 F 69 18 162/76 99 Intake and Output 01/31/22 02/01/22 02/01/22 22:59 06:59 14:59 Intake Total 720 1540 Output Total 550 1700 Balance 170 -160 Intake: Intake, IV Titration 900 Amount Sodium Chloride 0.9% 1, 900 000 ml @ 75 mls/hr IV . [id number] [facility] Rx#:[id number] Oral 720 640 Output: Urine 550 1700 Other: Voiding Method Urinal Urinal # Voids 5 Results - Lab Results Most recent lab results Calcium 8.2 mg/dL (8.4-10.2) L 02/01/22 04:47 Magnesium 2.1 mg/dL (1.5-2.4) 02/01/22 04:47 01/31/22 04:49 02/01/22 04:47 Assessment and Plan Plan: Assessment: 1. Hypovolemic hyponatremia improved with IV hydration. Sodium level 121 on admission and is 126 today. Urine sodium 29 and urine osmolality 347. TSH and cortisol levels normal. 2. Benign hypertension. Stable. 3. Chronic alcohol abuse. Plan: Maintain IV fluids - decrease rate to 50 mL an hour. Continue to hold Lasix. 1200 mL fluid restriction. Encourage oral intake. Stop Toradol. Okay to use Tylenol for pain if needed. Repeat labs in the morning. Thank you for the consultation. I will continue to follow patient with you during his hospital stay.
--- NOTE | 2022-02-01 13:15 | P.PN ---
Subjective Progress Note Date: 02/01/22 HISTORY OF PRESENT ILLNESS: This is a 71-year-old male one of my patient with a previous medical history significant for hypertension and hypertensive cardiovascular disease, hyperlipidemia, obesity with obstructive sleep apnea, history of chronic alcohol use and dependence with the peripheral neuropathy, significant spondylosis of the lumbar spine with spinal stenosis and significant chronic low back pain. Patient states that 2 days ago he was sitting in a chair and he went to get up and his legs wouldn't move. He states he was unable to move for 2 days. No diarrhea. No alcohol intake. He states he has been urinating adequately. His daughter last visited him 2 days ago. Patient was brought into [facility] by EMS. Apparently was Adult Protective Services report done by EMS regarding cleanliness and safety at home. Patient was found to be afebrile, heart rate 80, blood pressure 138/73, pulse ox 90% on room air. WBC 14.7, hemoglobin 16.9, platelet count 318. Sodium 121, potassium 4.3, chloride 88, CO2 20, BUN 17 creatinine 0.7. Lactic acid 2.4 and repeat 1.8. Total bilirubin 1.7 otherwise liver function tests are normal. Troponin negative. Urinalysis 2+ ketones and small blood. Repeat sodium this morning is 121 and white count is down to 13. Chest x-ray reveals no acute cardio pulmonary process. Patient admitted to the MedSurg floor, consult requested with nephrology. 02/01: Patient complains of weakness in his legs, tender throat and cough. He has been seen by nephrology with recommendations for decreased IV fluids to 50 mL per hour, continue to hold Lasix, a 1200 mL fluid restriction and discontinue Toradol. Patient has been afebrile, heart rate 76, blood pressure 143/78, pulse ox 97% on room air. Cortisol level VII. ProBNP 191. TSH 2.4. Repeat sodium 126, potassium 4.5, chloride 102, CO2 20, BUN 13 and creatinine 0.71. Blood sugar 99. Patient is been seen by physical therapy with recommendations for subacute rehab but patient may be leaning towards going home instead. Social work is following. REVIEW OF SYSTEMS: Constitutional: No documented fever, no chills, no night sweats. No weight change. positive for weakness , reports fatigue reports lethargy. Positive for daytime sleepiness. HEENT: No headache. No blurred vision or double vision, no loss of vision. No loss of Hearing, no ringing in the ears, no dizziness. No nasal drainage or congestion. No epistaxis. No sore throat. Lungs: No shortness of breath, no cough, no sputum production. No wheezing. Reports dyspnea with activity. Cardiovascular: No chest pain, positive for lower extremity edema. No palpitations. No paroxysmal nocturnal dyspnea. No orthopnea. No lightheadedness or dizziness. No syncopal episodes.Positive for nocturia. Abdominal: No abdominal pain. No nausea, vomiting. No diarrhea. No constipation. No bloody or tarry stools . No loss of appetite. Genitourinary: No dysuria, increased frequency, urgency. No urinary retention. Musculoskeletal: positive for neck pain, positive for chronic low back pain, positive for significant pain in both lower extremities with significant neuropathy, positive for gait dysfunction, positive for lower extremity weakness. Integumentary: No wounds, no lesions. No rash or pruritus. No unusual bruising. Does appear to have seborrheic dermatitis Neurologic: No aphasia. No facial droop. Memory loss. No head injury. No headache, positive for paresthesia in both lower extremities Psychiatric: Patient does appear to be somewhat depressed, appears to be a bit anxious, no suicidal thoughts or ideation. Endocrine: No abnormal blood sugars. PHYSICAL EXAMINATION: General: This is a 71-year-old male who is resting in bed and does not appear to be in acute distress. HEENT: Head is atraumatic, normocephalic, pupils were equal round reactive to light and recommendation, extraocular muscle movement were intact, sclera nonicteric, conjunctivae were pale, mucous membranes of the mouth are somewhat dry. Neck: Supple, no JVP, normal carotid upstroke bilaterally, no lymphadenopathy. Chest: Decreased breath sounds at the bases, few rhonchi, no expiratory wheezes, no chest wall tenderness, no intercostal retractions. Heart: First heart sound is normal, second heart sound is normal there is systolic ejection murmur 2/6 located in the left sternal border. Abdomen: Soft, nontender, nondistended, positive bowel sounds. Extremities: There is chronic significant venous stasis of both lower extremity with a chronic skin changes dorsalis pedis +1 bilaterally poor foot hygiene. Neurologic examination: Patient is awake alert and oriented X 3, cranial nerves II-12 appear grossly intact, muscle power were 4 out of 5 in upper extremities and 3out of 5 in bilateral lower extremities, deep tendon reflexes were depressed bilaterally. ASSESSMENT AND PLAN: 1. Hyponatremia secondary to to hypervolemia. Continue IV fluids 0.9 normal saline at 50 mL per hour, monitor sodium closely, fluid restriction of 1200 mL, continue to hold Lasix, discontinue Toradol. Nephrology consult appreciated. 2. Lactic acidosis, resolved. Continue IV fluids. 3. Hypertension and hypertensive cardiovascular disease. restart the patient on losartan 50 mg orally once every day. 4. Hyperlipidemia. Continue atorvastatin 40 mg daily. 5. Vascular dementia. We will continue Namenda 5 mg po bid 6. Chronic alcohol use and dependence. Patient states he has been abstaining from alcohol. No need for CIWA protocol. 7. 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 Continue [place] 10/325 mg 1 tablet every 6 hours as needed. 8. Bilateral lower extremity neuropathy continue patient on Lyrica 200 mg orally twice every day. 9. Depression. Continue patient on Cymbalta 60 mg orally once every day. 10. DVT prophylaxis. Continue Lovenox 40 mg subcutaneously every 24 hours. 11. GI prophylaxis. Continue Protonix 40 mg orally once every day. Patient is full code. DISCHARGE PLAN TBD, possible subacute rehab. Impression and plan of care have been directed as dictated by the signing physician. Suzan Willingham nurse practitioner acting as scribe for signing physician. Objective - Vital Signs Vital signs: Vital Signs Temp 98.9 F 02/01/22 07:49 Pulse 76 02/01/22 07:49 Resp 20 02/01/22 07:49 BP 143/78 02/01/22 07:49 Pulse Ox 97 02/01/22 07:49 FiO2 Intake & Output 01/31/22 02/01/22 02/01/22 18:59 06:59 18:59 Intake Total 720 1540 Output Total 2250 Balance 720 -710 Intake: Intake, IV Titration 900 Amount Sodium Chloride 0.9% 1, 900 000 ml @ 75 mls/hr IV . [id number] [facility] Rx#:[id number] Oral 720 640 Output: Urine 2250 Other: Voiding Method Urinal Urinal # Voids 5 - Labs CBC & Chem 7: 01/31/22 04:49 02/01/22 04:47 Labs: Abnormal Lab Results - Last 24 Hours (Table) 01/31/22 01/31/22 01/31/22 Range/Units 12:35 13:15 17:03 Sodium 122 L (137-145) mmol/L Carbon Dioxide (22-30) mmol/L Osmolality 264 L (280-301) mosm/kg Calcium (8.4-10.2) mg/dL Ur Random Sodium 29 L (40-220) mmol/L 01/31/22 02/01/22 Range/Units 20:01 04:47 Sodium 122 L 126 L (137-145) mmol/L Carbon Dioxide 20 L (22-30) mmol/L Osmolality (280-301) mosm/kg Calcium 8.2 L (8.4-10.2) mg/dL Ur Random Sodium (40-220) mmol/L
[2022-02-01] MEDS: CYCLOBENZAPRINE 10 MG TAB PO PRN (20:11)
[2022-02-01] MEDS: SENNOSIDES-DOCUSATE SODIUM 1 EACH TAB PO SCH (20:13)
[2022-02-02] MEDS: MEMANTINE 5 MG TAB PO SCH ×2 (08:15→22:14)
[2022-02-02] MEDS: PREGABALIN 100 MG CAP PO SCH ×2 (08:15→22:14)
[2022-02-02] MEDS: CYANOCOBALAMIN 500 MCG TAB PO SCH (08:15)
[2022-02-02] MEDS: MULTIVITAMINS, THERA 1 EACH TAB PO SCH (08:15)
[2022-02-02] MEDS: LOSARTAN 50 MG TAB PO SCH (08:15)
[2022-02-02] MEDS: ASPIRIN 81 MG PO SCH (08:15)
[2022-02-02] MEDS: DULoxetine HCL 60 MG CAPSULE.DR PO SCH (08:15)
[2022-02-02] MEDS: PANTOPRAZOLE 40 MG TABLET PO SCH (08:16)
[2022-02-02] MEDS: THIAMINE 100 MG TAB PO SCH (08:16)
[2022-02-02] MEDS: LACTULOSE 20 GM/30 ML CUP PO SCH ×2 (08:16→22:14)
[2022-02-02] MEDS: AMMONIUM LACTATE 12% LOTION 225 GM BTL TOPICAL SCH ×2 (08:16→22:16)
[2022-02-02] MEDS: ATORVASTATIN 40 MG TAB PO SCH (08:16)
[2022-02-02] MEDS: HYDROcodone/APAP 10-325MG 1 EACH TAB PO PRN ×3 (08:18→21:59)
[2022-02-02] MEDS: ENOXAPARIN 40 MG/0.4 ML SYRINGE SQ SCH (08:23)
--- NOTE | 2022-02-02 10:37 | P.PN ---
Subjective Patient is seen in follow-up for hyponatremia. Morning labs pending. Receiving normal saline. Good urine output. No vomiting or diarrhea. Oral intake is good. Vital signs are stable. General: The patient appeared well nourished and normally developed. HEENT: Head exam is unremarkable. LUNGS: Breath sounds decreased. HEART: Rate and Rhythm are regular. ABDOMEN: Soft, no distention. EXTREMITITES: No edema. Objective - Vital Signs Vital signs: Vital Signs Temp 98.7 F 02/02/22 08:00 Pulse 86 02/02/22 08:00 Resp 18 02/02/22 08:00 BP 134/79 02/02/22 08:00 Pulse Ox 96 02/02/22 08:00 FiO2 Intake & Output 02/01/22 02/02/22 02/02/22 18:59 06:59 18:59 Intake Total 300 Output Total 1150 500 Balance 300 -1150 -500 Intake: Intake, IV Titration 300 Amount Sodium Chloride 0.9% 1, 300 000 ml @ 50 mls/hr IV . Q20H [facility] Rx#:[id number] Output: Urine 1150 500 Other: Voiding Method Urinal Urinal Urinal # Voids 4 # Bowel Movements 1 - Labs CBC & Chem 7: 01/31/22 04:49 02/01/22 04:47 Assessment and Plan Plan: Assessment: 1. Hypovolemic hyponatremia improved with IV hydration. Sodium level 121 on admission - 126 yesterday. Urine sodium 29 and urine osmolality 347. TSH and cortisol levels normal. 2. Benign hypertension. Stable. 3. Chronic alcohol abuse. Plan: Hep-Lock IV fluids. Continue to hold Lasix. 1200 mL fluid restriction. Encourage oral intake. Stop Toradol. Okay to use Tylenol for pain if needed. Morning labs pending. Repeat BMP and magnesium level 2-3 days postdischarge. Follow up outpatient in 1 week.
[2022-02-02 10:59] LABS: African American GFR (CKD) 105.6 (60.0-200.0); Anion Gap 9.9 mmol/L (10.00-18.00); BUN/Creat Ratio 13.13 Ratio (12.00-20.00); Blood Urea Nitrogen 10.5 mg/dL (9.0-27.0); Calcium 8.8 mg/dL (8.7-10.3); Carbon Dioxide 22.1 mmol/L (20.0-27.5); Magnesium 2.3 mg/dL (1.5-2.4); Non-African American GFR(CKD) 91.1 (60.0-200.0); Potassium 4.4 mmol/L (3.5-5.5)
--- NOTE | 2022-02-02 12:42 | P.PN ---
Subjective Progress Note Date: 02/02/22 HISTORY OF PRESENT ILLNESS: This is a 71-year-old male one of my patient with a previous medical history significant for hypertension and hypertensive cardiovascular disease, hyperlipidemia, obesity with obstructive sleep apnea, history of chronic alcohol use and dependence with the peripheral neuropathy, significant spondylosis of the lumbar spine with spinal stenosis and significant chronic low back pain. Patient states that 2 days ago he was sitting in a chair and he went to get up and his legs wouldn't move. He states he was unable to move for 2 days. No diarrhea. No alcohol intake. He states he has been urinating adequately. His daughter last visited him 2 days ago. Patient was brought into [facility] by EMS. Apparently was Adult Protective Services report done by EMS regarding cleanliness and safety at home. Patient was found to be afebrile, heart rate 80, blood pressure 138/73, pulse ox 90% on room air. WBC 14.7, hemoglobin 16.9, platelet count 318. Sodium 121, potassium 4.3, chloride 88, CO2 20, BUN 17 creatinine 0.7. Lactic acid 2.4 and repeat 1.8. Total bilirubin 1.7 otherwise liver function tests are normal. Troponin negative. Urinalysis 2+ ketones and small blood. Repeat sodium this morning is 121 and white count is down to 13. Chest x-ray reveals no acute cardio pulmonary process. Patient admitted to the MedSurg floor, consult requested with nephrology. 02/01: Patient complains of weakness in his legs, tender throat and cough. He has been seen by nephrology with recommendations for decreased IV fluids to 50 mL per hour, continue to hold Lasix, a 1200 mL fluid restriction and discontinue Toradol. Patient has been afebrile, heart rate 76, blood pressure 143/78, pulse ox 97% on room air. Cortisol level VII. ProBNP 191. TSH 2.4. Repeat sodium 126, potassium 4.5, chloride 102, CO2 20, BUN 13 and creatinine 0.71. Blood sugar 99. Patient is been seen by physical therapy with recommendations for subacute rehab but patient may be leaning towards going home instead. Social work is following. 02/02: Patient remains afebrile, heart rate 86, blood pressure 1 3479, pulse ox 96% on room air. Repeat blood work reveals sodium 131, potassium 4.4, chloride 99, CO2 22, BUN 10 and creatinine 0.8. Blood sugars 122. Nephrology has discontinue IV fluids, continue to hold Lasix, continue 1200 mL fluid restriction, encourage oral intake and repeat BMP and magnesium in 2-3 days post discharge and follow-up in one week. Patient has been cleared for discharge by nephrology with plan for repeat labs in 2-3 days and follow-up in one week. Patient continues to complain of cough and will be started on Claritin also states that he will not be able to go home until Monday due to the fact that he needs help set up at home. telephonic case manager has been updated. REVIEW OF SYSTEMS: Constitutional: No documented fever, no chills, no night sweats. No weight change. positive for weakness , reports fatigue reports lethargy. Positive for daytime sleepiness. HEENT: No headache. No blurred vision or double vision, no loss of vision. No loss of Hearing, no ringing in the ears, no dizziness. No nasal drainage or congestion. No epistaxis. No sore throat. Lungs: No shortness of breath, reports cough, no sputum production. No wheezing. Reports dyspnea with activity. Cardiovascular: No chest pain, positive for lower extremity edema. No palpitations. No paroxysmal nocturnal dyspnea. No orthopnea. No lightheadedn ess or dizziness. No syncopal episodes.Positive for nocturia. Abdominal: No abdominal pain. No nausea, vomiting. No diarrhea. No constipation. No bloody or tarry stools . No loss of appetite. Genitourinary: No dysuria, increased frequency, urgency. No urinary retention. Musculoskeletal: positive for neck pain, positive for chronic low back pain, positive for significant pain in both lower extremities with significant neuropathy, positive for gait dysfunction, positive for lower extremity weakness. Integumentary: No wounds, no lesions. No rash or pruritus. No unusual bruising. Does appear to have seborrheic dermatitis Neurologic: No aphasia. No facial droop. Memory loss. No head injury. No headache, positive for paresthesia in both lower extremities Psychiatric: Patient does appear to be somewhat depressed, appears to be a bit anxious, no suicidal thoughts or ideation. Endocrine: No abnormal blood sugars. PHYSICAL EXAMINATION: General: This is a 71-year-old male who is resting in bed and does not appear to be in acute distress. HEENT: Head is atraumatic, normocephalic, pupils were equal round reactive to light and recommendation, extraocular muscle movement were intact, sclera nonicteric, conjunctivae were pale, mucous membranes of the mouth are somewhat dry. Neck: Supple, no JVP, normal carotid upstroke bilaterally, no lymphadenopathy. Chest: Decreased breath sounds at the bases, few rhonchi, no expiratory wheezes, no chest wall tenderness, no intercostal retractions. Heart: First heart sound is normal, second heart sound is normal there is sy stolic ejection murmur 2/6 located in the left sternal border. Abdomen: Soft, nontender, nondistended, positive bowel sounds. Extremities: There is chronic significant venous stasis of both lower extremity with a chronic skin changes dorsalis pedis +1 bilaterally poor foot hygiene. Neurologic examination: Patient is awake alert and oriented X 3, cranial nerves II-12 appear grossly intact, muscle power were 4 out of 5 in upper extremities and 3out of 5 in bilateral lower extremities, deep tendon reflexes were depressed bilaterally. ASSESSMENT AND PLAN: 1. Hyponatremia secondary to to hypervolemia. Discontinue IV fluids, fluid restriction of 1200 mL, continue to hold Lasix, discontinue Toradol. Nephrology consult appreciated. 2. Lactic acidosis, resolved. 3. Hypertension and hypertensive cardiovascular disease. restart the patient on losartan 50 mg orally once every day. 4. Hyperlipidemia. Continue atorvastatin 40 mg daily. 5. Vascular dementia. We will continue Namenda 5 mg po bid 6. Chronic alcohol use and dependence. Patient states he has been abstaining from alcohol. No need for [facility] protocol. 7. 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 Continue [place] 10/325 mg 1 tablet every 6 hours as needed. 8. Bilateral lower extremity neuropathy continue patient on Lyrica 200 mg orally twice every day. 9. Depression. Continue patient on Cymbalta 60 mg orally once every day. 10. DVT prophylaxis. Continue Lovenox 40 mg subcutaneously every 24 hours. 11. GI prophylaxis. Continue Protonix 40 mg orally once every day. Patient is full code. DISCHARGE PLAN TBD, possible subacute rehab. Impression and plan of care have been directed as dictated by the signing physician. Suzan Willingham nurse practitioner acting as scribe for signing physician. Objective - Vital Signs Vital signs: Vital Signs Temp 98.7 F 05/25/22 08:00 Pulse 86 02/02/22 08:00 Resp 18 02/02/22 08:00 BP 134/79 02/02/22 08:00 Pulse Ox 96 02/02/22 08:00 FiO2 Intake & Output 02/01/22 02/02/22 02/02/22 18:59 06:59 18:59 Intake Total 300 Output Total 1150 500 Balance 300 -1150 -500 Intake: Intake, IV Titration 300 Amount Sodium Chloride 0.9% 1, 300 000 ml @ 50 mls/hr IV . Q20H [facility] Rx#:[id number] Output: Urine 1150 500 Other: Voiding Method Urinal Urinal Urinal # Voids 4 # Bowel Movements 1 - Labs CBC & Chem 7: 01/31/22 04:49 02/02/22 04:06
[2022-02-02] MEDS: LORATADINE 10 MG TAB PO SCH (13:50)
[2022-02-02] MEDS: FLUTICASONE 50MCG/SPRAY NASAL 16GM EA NOSTRIL SCH (17:45)
[2022-02-02] MEDS: SENNOSIDES-DOCUSATE SODIUM 1 EACH TAB PO SCH (22:14)
[2022-02-03] MEDS: HYDROcodone/APAP 10-325MG 1 EACH TAB PO PRN ×4 (02:49→20:15)
[2022-02-03] MEDS ORDERED: ACETAMINOPHEN TAB 325 MG TAB PO PRN (03:33)
--- NOTE | 2022-02-03 04:00 | XR ---
EXAMINATION TYPE: XR chest 1V portable DATE OF EXAM: 02/03/2022 COMPARISON: 01/30/2022 HISTORY: Fever and cough TECHNIQUE: FINDINGS: Heart is normal. Lungs are clear of consolidation. There are no hilar masses. Costophrenic angles are clear. IMPRESSION: No active cardiopulmonary disease. No change.
[2022-02-03 04:34] LABS: Appearance,Urine Clear (Clear); Bilirubin,Urine Negative (Negative); Blood,Urine Large (Negative); Color,Urine Yellow; Glucose,Urine (UA) Negative (Negative); Ketones,Urine Negative (Negative); Leukocyte Esterase,Urine Trace (Negative); Mucus,Urine Rare /hpf; Nitrite,Urine Negative (Negative); Protein,Urine Negative (Negative); RBC,Urine 42 /hpf (0-5); Specific Gravity,Urine 1.015 (1.001-1.035); Urobilinogen,Urine <2.0 mg/dL (<2.0); WBC,Urine 3 /hpf (0-5)
[2022-02-03] MEDS: PANTOPRAZOLE 40 MG TABLET PO SCH (07:57)
[2022-02-03] MEDS: LORATADINE 10 MG TAB PO SCH (07:57)
[2022-02-03] MEDS: THIAMINE 100 MG TAB PO SCH (07:58)
[2022-02-03] MEDS: ASPIRIN 81 MG PO SCH (07:58)
[2022-02-03] MEDS: ATORVASTATIN 40 MG TAB PO SCH (07:58)
[2022-02-03] MEDS: MULTIVITAMINS, THERA 1 EACH TAB PO SCH (07:58)
[2022-02-03] MEDS: PREGABALIN 100 MG CAP PO SCH ×2 (07:59→21:27)
[2022-02-03] MEDS: CYANOCOBALAMIN 500 MCG TAB PO SCH (08:00)
[2022-02-03] MEDS: DULoxetine HCL 60 MG CAPSULE.DR PO SCH (08:00)
[2022-02-03] MEDS: LACTULOSE 20 GM/30 ML CUP PO SCH ×2 (08:00→21:26)
[2022-02-03] MEDS: LOSARTAN 50 MG TAB PO SCH (08:00)
[2022-02-03] MEDS: MEMANTINE 5 MG TAB PO SCH ×2 (08:00→21:27)
[2022-02-03] MEDS: ENOXAPARIN 40 MG/0.4 ML SYRINGE SQ SCH (08:01)
[2022-02-03] MEDS: FLUTICASONE 50MCG/SPRAY NASAL 16GM EA NOSTRIL SCH (08:03)
[2022-02-03] MEDS: AMMONIUM LACTATE 12% LOTION 225 GM BTL TOPICAL SCH ×2 (08:03→21:28)
[2022-02-03 09:25] LABS: African American GFR (CKD) 111.6 (60.0-200.0); BUN/Creat Ratio 12.43 Ratio (12.00-20.00); Blood Urea Nitrogen 8.7 mg/dL (9.0-27.0); Calcium 8.5 mg/dL (8.7-10.3); Non-African American GFR(CKD) 96.3 (60.0-200.0); Potassium 4.2 mmol/L (3.5-5.5)
--- NOTE | 2022-02-03 10:33 | P.PN ---
Subjective Patient is seen in follow-up for hyponatremia. Sodium level 126 today. Off IV fluids. Good urine output. No vomiting or diarrhea. Oral intake is good. Vital signs are stable. General: Awake. No acute distress. HEENT: Head exam is unremarkable. LUNGS: Breath sounds decreased. HEART: Rate and Rhythm are regular. ABDOMEN: Soft, no distention. EXTREMITITES: No edema. Objective - Vital Signs Vital signs: Vital Signs Temp 99.0 F 02/03/22 08:00 Pulse 83 02/03/22 08:00 Resp 18 02/03/22 08:00 BP 123/79 02/03/22 08:00 Pulse Ox 93 L 02/03/22 08:00 FiO2 Intake & Output 02/02/22 02/03/22 02/03/22 18:59 06:59 18:59 Intake Total 500 Output Total 500 1100 Balance -500 -600 Intake: Oral 500 Output: Urine 500 1100 Other: Voiding Method Urinal Urinal Urinal # Voids 3 # Bowel Movements 1 - Labs CBC & Chem 7: 01/31/22 04:49 02/03/22 04:22 Labs: Abnormal Lab Results - Last 24 Hours (Table) 02/02/22 02/03/22 02/03/22 Range/Units 04:06 04:00 04:22 Sodium 131 L 126 L (135-145) mmol/L Chloride 92 L (96-109) mmol/L Anion Gap 9.90 L (10.00-18.00) mmol/L BUN 8.7 L (9.0-27.0) mg/dL Glucose 122 H (70-110) mg/dL Calcium 8.5 L (8.7-10.3) mg/dL Urine Blood Large H (Negative) Ur Leukocyte Esterase Trace H (Negative) Urine RBC 42 H (0-5) /hpf Urine Mucus Rare H (None) /hpf Assessment and Plan Plan: Assessment: 1. Hypovolemic hyponatremia improved with IV hydration. Sodium level 121 on admission - 131 yesterday - 126 today. Urine sodium 29 - repeat 141; and urine osmolality 347. TSH and cortisol levels normal. 2. Benign hypertension. Stable. 3. Chronic alcohol abuse. Plan: Continue to hold Lasix. 1200 mL fluid restriction. Encourage oral intake. Check PTH related peptide. [place] 7.5 mg once today. Repeat BMP and magnesium level 2-3 days postdischarge. Follow up outpatient in 1 week.
[2022-02-03] MEDS ORDERED: HYDROcodone/APAP 10-325MG 1 EACH TAB ONE (11:57)
[2022-02-03] MEDS ORDERED: LEVOFLOXACIN 750MG-D5W PMX 750 MG in DEXTROSE/WATER 1 150ML.BAG IVPB SCH (13:00)
--- NOTE | 2022-02-03 14:56 | P.PN ---
Subjective Progress Note Date: 02/03/22 HISTORY OF PRESENT ILLNESS: This is a 71-year-old male one of my patient with a previous medical history significant for hypertension and hypertensive cardiovascular disease, hyperlipidemia, obesity with obstructive sleep apnea, history of chronic alcohol use and dependence with the peripheral neuropathy, significant spondylosis of the lumbar spine with spinal stenosis and significant chronic low back pain. Patient states that 2 days ago he was sitting in a chair and he went to get up and his legs wouldn't move. He states he was unable to move for 2 days. No diarrhea. No alcohol intake. He states he has been urinating adequately. His daughter last visited him 2 days ago. Patient was brought into [facility] by EMS. Apparently was Adult Protective Services report done by EMS regarding cleanliness and safety at home. Patient was found to be afebrile, heart rate 80, blood pressure 138/73, pulse ox 90% on room air. WBC 14.7, hemoglobin 16.9, platelet count 318. Sodium 121, potassium 4.3, chloride 88, CO2 20, BUN 17 creatinine 0.7. Lactic acid 2.4 and repeat 1.8. Total bilirubin 1.7 otherwise liver function tests are normal. Troponin negative. Urinalysis 2+ ketones and small blood. Repeat sodium this morning is 121 and white count is down to 13. Chest x-ray reveals no acute cardio pulmonary process. Patient admitted to the MedSurg floor, consult requested with nephrology. 02/01: Patient complains of weakness in his legs, tender throat and cough. He has been seen by nephrology with recommendations for decreased IV fluids to 50 mL per hour, continue to hold Lasix, a 1200 mL fluid restriction and discontinue Toradol. Patient has been afebrile, heart rate 76, blood pressure 143/78, pulse ox 97% on room air. Cortisol level VII. ProBNP 191. TSH 2.4. Repeat sodium 126, potassium 4.5, chloride 102, CO2 20, BUN 13 and creatinine 0.71. Blood sugar 99. Patient is been seen by physical therapy with recommendations for subacute rehab but patient may be leaning towards going home instead. Social work is following. 02/02: Patient remains afebrile, heart rate 86, blood pressure 1 3479, pulse ox 96% on room air. Repeat blood work reveals sodium 131, potassium 4.4, chloride 99, CO2 22, BUN 10 and creatinine 0.8. Blood sugars 122. Nephrology has discontinue IV fluids, continue to hold Lasix, continue 1200 mL fluid restriction, encourage oral intake and repeat BMP and magnesium in 2-3 days post discharge and follow-up in one week. Patient has been cleared for discharge by nephrology with plan for repeat labs in 2-3 days and follow-up in one week. Patient continues to complain of cough and will be started on Claritin also states that he will not be able to go home until Monday due to the fact that he needs help set up at home. 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 02/03: Patient had temperature of 101.2 this morning at 2 AM. Heart rate 92, blood pressure 174/84, pulse ox 93% on room air. Urinalysis revealed blood large, leukoesterase trace, RBCs 42, diabetes 3. Repeat blood work today reveals sodium of 126, potassium 4.2, chloride 92, CO2 24, BUN 8.7, creatinine 0.7. Nephrology has ordered Samsca 7.5 mg once today. Chest x-ray completed but unable to open report due to system down time. Patient continues to complain of cough with sputum production. Patient started on Zosyn and Levaquin and consult added for Dr. Pete REVIEW OF SYSTEMS: Constitutional: +Documented fever, no chills, no night sweats. No weight change. positive for weakness , reports fatigue reports lethargy. Positive for daytime sleepiness. HEENT: No headache. No blurred vision or double vision, no loss of vision. No loss of Hearing, no ringing in the ears, no dizziness. No nasal drainage or congestion. No epistaxis. No sore throat. Lungs: No shortness of breath, reports cough, reports sputum production. No wheezing. Reports dyspnea with activity. Cardiovascular: No chest pain, positive for lower extremity edema. No pal pitations. No paroxysmal nocturnal dyspnea. No orthopnea. No lightheadedness or dizziness. No syncopal episodes.Positive for nocturia. Abdominal: No abdominal pain. No nausea, vomiting. No diarrhea. No constipation. No bloody or tarry stools . No loss of appetite. Genitourinary: No dysuria, increased frequency, urgency. No urinary retention. Musculoskeletal: positive for neck pain, positive for chronic low back pain, positive for significant pain in both lower extremities with significant neuropathy, positive for gait dysfunction, positive for lower extremity weakness. Integumentary: No wounds, no lesions. No rash or pruritus. No unusual bruising. Does appear to have seborrheic dermatitis Neurologic: No aphasia. No facial droop. Memory loss. No head injury. No headache, positive for paresthesia in both lower extremities Psychiatric: Patient does appear to be somewhat depressed, appears to be a bit anxious, no suicidal thoughts or ideation. Endocrine: No abnormal blood sugars. PHYSICAL EXAMINATION: General: This is a 71-year-old male who is resting in bed and does not appear to be in acute distress. Occasional cough noted. HEENT: Head is atraumatic, normocephalic, pupils were equal round reactive to light and recommendation, extraocular muscle movement were intact, sclera nonicteric, conjunctivae were pale, mucous membranes of the mouth are somewhat dry. Neck: Supple, no JVP, normal carotid upstroke bilaterally, no lymphadenopathy. Chest: Decreased breath sounds at the bases, few rhonchi, no expiratory wheezes, no chest wall tenderness, no intercostal retractions. Heart: First heart sound is normal, second heart sound is normal there is s ystolic ejection murmur 2/6 located in the left sternal border. Abdomen: Soft, nontender, nondistended, positive bowel sounds. Extremities: There is chronic significant venous stasis of both lower extremity with a chronic skin changes dorsalis pedis +1 bilaterally poor foot hygiene. Neurologic examination: Patient is awake alert and oriented X 3, cranial nerves II-12 appear grossly intact, muscle power were 4 out of 5 in upper extremities and 3out of 5 in bilateral lower extremities, deep tendon reflexes were depressed bilaterally. ASSESSMENT AND PLAN: 1. Hyponatremia secondary to to hypervolemia. Samsca 7.5 mg 1, fluid restriction of 1200 mL, continue to hold Lasix, discontinue Toradol. Nephrology consult appreciated. 2. Lactic acidosis, resolved. 3. Possible aspiration pneumonia. Chest x-ray has been completed, patient started on Zosyn 3.375 g IV piggyback every 8 hours, Levaquin 750 mg IV piggyback daily, DuoNeb treatments scheduled 4 times daily, consult with [facility] medicine. 4. Hypertension and hypertensive cardiovascular disease. restart the patient on losartan 50 mg orally once every day. 5. Hyperlipidemia. Continue atorvastatin 40 mg daily. 6. Vascular dementia. We will continue Namenda 5 mg po bid 7. Chronic alcohol use and dependence. Patient states he has been abstaining from alcohol. No need for [employer] protocol. 8. 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 Continue Convent 10/325 mg 1 tablet every 6 hours as needed. 9. Bilateral lower extremity neuropathy continue patient on Lyrica 200 mg orally twice every day. 10. Depression. Continue patient on Cymbalta 60 mg orally once every day. 11. DVT prophylaxis. Continue Lovenox 40 mg subcutaneously every 24 hours. 12. GI prophylaxis. Continue Protonix 40 mg orally once every day. Patient is full code. DISCHARGE PLAN Subacute rehab at [facility]. Impression and plan of care have been directed as dictated by the signing physician. Suzan Willingham nurse practitioner acting as scribe for signing physician. Objective - Vital Signs Vital signs: Vital Signs Temp 99.0 F 02/03/22 08:00 Pulse 83 02/03/22 08:00 Resp 18 02/03/22 08:00 BP 123/79 02/03/22 08:00 Pulse Ox 93 L 02/03/22 08:00 FiO2 Intake & Output 02/02/22 02/03/22 02/03/22 18:59 06:59 18:59 Intake Total 500 Output Total 500 1100 Balance -500 -600 Intake: Oral 500 Output: Urine 500 1100 Other: Voiding Method Urinal Urinal Urinal # Voids 3 # Bowel Movements 1 - Labs CBC & Chem 7: 01/31/22 04:49 02/03/22 04:22 Labs: Abnormal Lab Results - Last 24 Hours (Table) 02/02/22 02/03/22 02/03/22 Range/Units 04:06 04:00 04:22 Sodium 131 L 126 L (135-145) mmol/L Chloride 92 L (96-109) mmol/L Anion Gap 9.90 L (10.00-18.00) mmol/L BUN 8.7 L (9.0-27.0) mg/dL Glucose 122 H (70-110) mg/dL Calcium 8.5 L (8.7-10.3) mg/dL Urine Blood Large H (Negative) Ur Leukocyte Esterase Trace H (Negative) Urine RBC 42 H (0-5) /hpf Urine Mucus Rare H (None) /hpf
[2022-02-03] MEDS ORDERED: TOLVAPTAN 15 MG 1/2 TABLET PO ONE (16:00)
[2022-02-03] MEDS: IPRATROPIUM-ALBUTEROL 3 ML NEB INHALATION SCH ×2 (16:31→19:59)
[2022-02-03] MEDS: PIPERACILLIN-TAZOBACTAM 3.375 GM in SODIUM CHLORIDE 0.9% 100 ML IVPB SCH ×2 (17:35→21:28)
[2022-02-03] MEDS: SENNOSIDES-DOCUSATE SODIUM 1 EACH TAB PO SCH (21:27)
[2022-02-03] MEDS: CYCLOBENZAPRINE 10 MG TAB PO PRN (21:44)
[2022-02-04] MEDS: HYDROcodone/APAP 10-325MG 1 EACH TAB PO PRN ×6 (00:23→23:33)
[2022-02-04] MEDS: MEMANTINE 5 MG TAB PO SCH ×2 (07:30→20:08)
[2022-02-04] MEDS: MULTIVITAMINS, THERA 1 EACH TAB PO SCH (07:30)
[2022-02-04] MEDS: PANTOPRAZOLE 40 MG TABLET PO SCH (07:30)
[2022-02-04] MEDS: ASPIRIN 81 MG PO SCH (07:31)
[2022-02-04] MEDS: PREGABALIN 100 MG CAP PO SCH ×2 (07:31→20:08)
[2022-02-04] MEDS: ATORVASTATIN 40 MG TAB PO SCH (07:31)
[2022-02-04] MEDS: CYANOCOBALAMIN 500 MCG TAB PO SCH (07:31)
[2022-02-04] MEDS: DULoxetine HCL 60 MG CAPSULE.DR PO SCH (07:31)
[2022-02-04] MEDS: LORATADINE 10 MG TAB PO SCH (07:31)
[2022-02-04] MEDS: THIAMINE 100 MG TAB PO SCH (07:31)
[2022-02-04] MEDS: LOSARTAN 50 MG TAB PO SCH (07:31)
[2022-02-04] MEDS: LEVOFLOXACIN 750 MG TAB PO SCH (07:32)
[2022-02-04] MEDS: AMMONIUM LACTATE 12% LOTION 225 GM BTL TOPICAL SCH ×2 (07:33→20:08)
[2022-02-04] MEDS: LACTULOSE 20 GM/30 ML CUP PO SCH ×2 (07:33→20:08)
[2022-02-04] MEDS: ENOXAPARIN 40 MG/0.4 ML SYRINGE SQ SCH (07:33)
[2022-02-04] MEDS: FLUTICASONE 50MCG/SPRAY NASAL 16GM EA NOSTRIL SCH (07:34)
[2022-02-04] MEDS: IPRATROPIUM-ALBUTEROL 3 ML NEB INHALATION SCH ×4 (08:45→21:12)
[2022-02-04 08:53] LABS: African American GFR (CKD) >90 (>60 ml/min/1.73 sqM); Anion Gap 7 mmol/L; Blood Urea Nitrogen 14 mg/dL (9-20); Calcium 8.4 mg/dL (8.4-10.2); Carbon Dioxide 29 mmol/L (22-30); Chloride 95 mmol/L (98-107); Glucose 124 mg/dL (74-99); Non-African American GFR(CKD) >90 (>60 ml/min/1.73 sqM); Potassium 4.5 mmol/L (3.5-5.1); Sodium 131 mmol/L (137-145)
--- NOTE | 2022-02-04 10:41 | P.PN ---
Subjective Patient is seen in follow-up for hyponatremia. Sodium level 131 today. Off IV fluids. Good urine output. No vomiting or diarrhea. Oral intake is good. No changes overnight. Vital signs are stable. General: Awake. No acute distress. HEENT: Head exam is unremarkable. LUNGS: Breath sounds decreased. HEART: Rate and Rhythm are regular. ABDOMEN: Soft, no distention. EXTREMITITES: No edema. Objective - Vital Signs Vital signs: Vital Signs Temp 99.3 F 02/04/22 07:26 Pulse 82 02/04/22 07:26 Resp 16 02/04/22 07:30 BP 154/78 02/04/22 07:26 Pulse Ox 93 L 02/04/22 07:26 FiO2 Intake & Output 02/03/22 02/04/22 02/04/22 18:59 06:59 18:59 Intake Total 1220 2140 296 Output Total 1900 Balance -680 2140 296 Intake: Intake, IV Titration 1900 Amount Levofloxacin 750Mg-D5w 1800 Pmx 750 mg In Dextrose/ Water 1 150ml.bag @ 100 mls/hr IVPB Q24H [facility] Rx#: [id number] Piperacillin-Tazobactam 3 100 .375 gm In Sodium Chloride 0.9% 100 ml @ 25 mls/hr IVPB Q8H [facility] Rx#: [id number] Oral 1220 240 296 Output: Urine 1900 Other: Voiding Method Urinal Urinal Urinal # Voids 3 # Bowel Movements 1 - Labs CBC & Chem 7: 01/31/22 04:49 02/04/22 08:14 Labs: Abnormal Lab Results - Last 24 Hours (Table) 02/04/22 Range/Units 08:14 Sodium 131 L (137-145) mmol/L Chloride 95 L (98-107) mmol/L Glucose 124 H (74-99) mg/dL Microbiology - Last 24 Hours (Table) 02/03/22 04:22 Blood Culture - Preliminary Blood No Growth after 24 hours 02/03/22 04:00 Blood Culture - Preliminary Blood No Growth after 24 hours Assessment and Plan Plan: Assessment: 1. Hypovolemic hyponatremia improved with IV hydration. Sodium level 131 today. Urine sodium 29 - repeat 141; and urine osmolality 347. TSH and cortisol levels normal. 2. Benign hypertension. Stable. 3. Chronic alcohol abuse. Plan: Continue to hold Lasix. 1200 mL fluid restriction. Encourage oral intake. Follow-up PTH related peptide. Status post Samsca 7.5 mg 02/03/2022. Repeat BMP and magnesium level 2-3 days postdischarge. Follow up outpatient in 1 week.
--- NOTE | 2022-02-04 11:08 | P.PN ---
Subjective Progress Note Date: 02/04/22 HISTORY OF PRESENT ILLNESS: This is a 71-year-old male one of my patient with a previous medical history significant for hypertension and hypertensive cardiovascular disease, hyperlipidemia, obesity with obstructive sleep apnea, history of chronic alcohol use and dependence with the peripheral neuropathy, significant spondylosis of the lumbar spine with spinal stenosis and significant chronic low back pain. Patient states that 2 days ago he was sitting in a chair and he went to get up and his legs wouldn't move. He states he was unable to move for 2 days. No diarrhea. No alcohol intake. He states he has been urinating adequately. His daughter last visited him 2 days ago. Patient was brought into [facility] by EMS. Apparently was Adult Protective Services report done by EMS regarding cleanliness and safety at home. Patient was found to be afebrile, heart rate 80, blood pressure 138/73, pulse ox 90% on room air. WBC 14.7, hemoglobin 16.9, platelet count 318. Sodium 121, potassium 4.3, chloride 88, CO2 20, BUN 17 creatinine 0.7. Lactic acid 2.4 and repeat 1.8. Total bilirubin 1.7 otherwise liver function tests are normal. Troponin negative. Urinalysis 2+ ketones and small blood. Repeat sodium this morning is 121 and white count is down to 13. Chest x-ray reveals no acute cardio pulmonary process. Patient admitted to the MedSurg floor, consult requested with nephrology. 02/01: Patient complains of weakness in his legs, tender throat and cough. He has been seen by nephrology with recommendations for decreased IV fluids to 50 mL per hour, continue to hold Lasix, a 1200 mL fluid restriction and discontinue Toradol. Patient has been afebrile, heart rate 76, blood pressure 143/78, pulse ox 97% on room air. Cortisol level VII. ProBNP 191. TSH 2.4. Repeat sodium 126, potassium 4.5, chloride 102, CO2 20, BUN 13 and creatinine 0.71. Blood sugar 99. Patient is been seen by physical therapy with recommendations for subacute rehab but patient may be leaning towards going home instead. Social work is following. 02/02: Patient remains afebrile, heart rate 86, blood pressure 1 3479, pulse ox 96% on room air. Repeat blood work reveals sodium 131, potassium 4.4, chloride 99, CO2 22, BUN 10 and creatinine 0.8. Blood sugars 122. Nephrology has discontinue IV fluids, continue to hold Lasix, continue 1200 mL fluid restriction, encourage oral intake and repeat BMP and magnesium in 2-3 days post discharge and follow-up in one week. Patient has been cleared for discharge by nephrology with plan for repeat labs in 2-3 days and follow-up in one week. Patient continues to complain of cough and will be started on Claritin also states that he will not be able to go home until Monday due to the fact that he needs help set up at home. 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 02/03: Patient had temperature of 101.2 this morning at 2 AM. Heart rate 92, blood pressure 174/84, pulse ox 93% on room air. Urinalysis revealed blood large, leukoesterase trace, RBCs 42, diabetes 3. Repeat blood work today reveals sodium of 126, potassium 4.2, chloride 92, CO2 24, BUN 8.7, creatinine 0.7. Nephrology has ordered Samsca 7.5 mg once today. Chest x-ray completed but unable to open report due to system down time. Patient continues to complain of cough with sputum production. Patient started on Zosyn and Levaquin and consult added for Dr. Pete 02/04: patient is laying down in bed in no apparent distress, he continues to have some coughing, minimal from production, he denies any chest pain and some he continues to be little bit short of breath, he has no abdominal pain, nausea or vomiting, he continues to complain of pain in both lower extremities, he does not want to go to the extended care facility today, he would be seen in co nsultation by pulmonary medicine, his chest x-ray did not show any evidence of acute pneumonia, he was started on Levaquin 750 mg orally once every day, discontinue Zosyn, continue oral antibiotic for 5 days for possible acute bronchitis REVIEW OF SYSTEMS: Constitutional: +Documented fever, no chills, no night sweats. No weight change. positive for weakness , reports fatigue reports lethargy. Positive for daytime sleepiness. HEENT: No headache. No blurred vision or double vision, no loss of vision. No loss of Hearing, no ringing in the ears, no dizziness. No nasal drainage or congestion. No epistaxis. No sore throat. Lungs: No shortness of breath, reports cough, reports sputum production. No wheezing. Reports dyspnea with activity. Cardiovascular: No chest pain, positive for lower extremity edema. No palpitations. No paroxysmal nocturnal dyspnea. No orthopnea. No lighth eadedness or dizziness. No syncopal episodes.Positive for nocturia. Abdominal: No abdominal pain. No nausea, vomiting. No diarrhea. No constipation. No bloody or tarry stools . No loss of appetite. Genitourinary: No dysuria, increased frequency, urgency. No urinary retention. Musculoskeletal: positive for neck pain, positive for chronic low back pain, positive for significant pain in both lower extremities with significant neuropathy, positive for gait dysfunction, positive for lower extremity weakness. Integumentary: No wounds, no lesions. No rash or pruritus. No unusual bruisin g. Does appear to have seborrheic dermatitis Neurologic: No aphasia. No facial droop. Memory loss. No head injury. No headache, positive for paresthesia in both lower extremities Psychiatric: Patient does appear to be somewhat depressed, appears to be a bit anxious, no suicidal thoughts or ideation. Endocrine: No abnormal blood sugars. PHYSICAL EXAMINATION: General: This is a 71-year-old male who is resting in bed and does not appear to be in acute distress. Occasional cough noted. HEENT: Head is atraumatic, normocephalic, pupils were equal round reactive to light and recommendation, extraocular muscle movement were intact, sclera nonicteric, conjunctivae were pale, mucous membranes of the mouth are somewhat dry. Neck: Supple, no JVP, normal carotid upstroke bilaterally, no lymphadenopathy. Chest: Decreased breath sounds at the bases, few rhonchi, no expiratory wheezes, no chest wall tenderness, no intercostal retractions. Heart: First heart sound is normal, second heart sound is normal there is systolic ejection murmur 2/6 located in the left sternal border. Abdomen: Soft, nontender, nondistended, positive bowel sounds. Extremities: There is chronic significant venous stasis of both lower extremity with a chronic skin changes dorsalis pedis +1 bilaterally poor foot hygiene. Neurologic examination: Patient is awake alert and oriented X 3, cranial nerves II-12 appear grossly intact, muscle power were 4 out of 5 in upper extremities and 3out of 5 in bilateral lower extremities, deep tendon reflexes were depressed bilaterally. ASSESSMENT AND PLAN: 1. Hyponatremia secondary to to hypovolemia . Samsca 7.5 mg 1, fluid restriction of 1200 mL, continue to hold Lasix, discontinue Toradol. Nephrology consult appreciated. sodium level was 131 today. 2. Lactic acidosis, resolved. 3. Possible acute bronchitis. Chest x-ray has been completed,no evidence of pulmonary infiltrate, continue Levaquin 750 mg orally once every day, discontinue Zosyn. 4. Hypertension and hypertensive cardiovascular disease. restart the patient on losartan 50 mg orally once every day. 5. Hyperlipidemia. Continue atorvastatin 40 mg daily. 6. Vascular dementia. We will continue Namenda 5 mg po bid 7. Chronic alcohol use and dependence. Patient states he has been abstaining from alcohol. No need for [employer] protocol. 8. 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 Continue [place] 10/325 mg 1 tablet every 6 hours as needed. 9. Bilateral lower extremity neuropathy continue patient on Lyrica 200 mg orally twice every day. 10. Depression. Continue patient on Cymbalta 60 mg orally once every day. 11. DVT prophylaxis. Continue Lovenox 40 mg subcutaneously every 24 hours. 12. GI prophylaxis. Continue Protonix 40 mg orally once every day. Patient is full code. DISCHARGE PLAN Subacute rehab at [facility] tomorrow morning. Objective - Vital Signs Vital signs: Vital Signs Temp 99.3 F 02/04/22 07:26 Pulse 82 02/04/22 07:26 Resp 16 02/04/22 07:30 BP 154/78 02/04/22 07:26 Pulse Ox 93 L 02/04/22 07:26 FiO2 Intake & Output 02/03/22 02/04/22 02/04/22 18:59 06:59 18:59 Intake Total 1220 2140 296 Output Total 1900 Balance -680 2140 296 Intake: Intake, IV Titration 1900 Amount Levofloxacin 750Mg-D5w 1800 Pmx 750 mg In Dextrose/ Water 1 150ml.bag @ 100 mls/hr IVPB Q24H [facility] Rx#: [id number] Piperacillin-Tazobactam 3 100 .375 gm In Sodium Chloride 0.9% 100 ml @ 25 mls/hr IVPB Q8H [facility] Rx#: [id number] Oral 1220 240 296 Output: Urine 1900 Other: Voiding Method Urinal Urinal Urinal # Voids 3 # Bowel Movements 1 - Labs CBC & Chem 7: 01/31/22 04:49 02/04/22 08:14 Labs: Abnormal Lab Results - Last 24 Hours (Table) 02/04/22 Range/Units 08:14 Sodium 131 L (137-145) mmol/L Chloride 95 L (98-107) mmol/L Glucose 124 H (74-99) mg/dL Microbiology - Last 24 Hours (Table) 02/03/22 04:22 Blood Culture - Preliminary Blood No Growth after 24 hours 02/03/22 04:00 Blood Culture - Preliminary Blood No Growth after 24 hours
[2022-02-04 11:51] VITALS: BMI 39.5
[2022-02-04] MEDS: SENNOSIDES-DOCUSATE SODIUM 1 EACH TAB PO SCH (20:08)
[2022-02-04] MEDS: CYCLOBENZAPRINE 10 MG TAB PO PRN (20:08)
[2022-02-05] MEDS: HYDROcodone/APAP 10-325MG 1 EACH TAB PO PRN ×3 (03:33→19:41)
[2022-02-05] MEDS: AMMONIUM LACTATE 12% LOTION 225 GM BTL TOPICAL SCH ×2 (07:43→20:07)
[2022-02-05] MEDS: IPRATROPIUM-ALBUTEROL 3 ML NEB INHALATION SCH ×4 (07:51→19:26)
[2022-02-05] MEDS: LACTULOSE 20 GM/30 ML CUP PO SCH ×2 (08:13→19:42)
[2022-02-05] MEDS: CYANOCOBALAMIN 500 MCG TAB PO SCH (08:13)
[2022-02-05] MEDS: DULoxetine HCL 60 MG CAPSULE.DR PO SCH (08:13)
[2022-02-05] MEDS: PANTOPRAZOLE 40 MG TABLET PO SCH (08:13)
[2022-02-05] MEDS: LOSARTAN 50 MG TAB PO SCH (08:13)
[2022-02-05] MEDS: PREGABALIN 100 MG CAP PO SCH ×2 (08:13→19:41)
[2022-02-05] MEDS: LORATADINE 10 MG TAB PO SCH (08:13)
[2022-02-05] MEDS: MULTIVITAMINS, THERA 1 EACH TAB PO SCH (08:13)
[2022-02-05] MEDS: LEVOFLOXACIN 750 MG TAB PO SCH (08:13)
[2022-02-05] MEDS: THIAMINE 100 MG TAB PO SCH (08:13)
[2022-02-05] MEDS: ENOXAPARIN 40 MG/0.4 ML SYRINGE SQ SCH (08:13)
[2022-02-05] MEDS: ATORVASTATIN 40 MG TAB PO SCH (08:13)
[2022-02-05] MEDS: ASPIRIN 81 MG PO SCH (08:13)
[2022-02-05] MEDS: MEMANTINE 5 MG TAB PO SCH ×2 (08:13→19:41)
[2022-02-05] MEDS: FLUTICASONE 50MCG/SPRAY NASAL 16GM EA NOSTRIL SCH (08:18)
[2022-02-05 09:03] LABS: Basophils # (A) 0.04 X 10*3/uL (0.00-0.10); Basophils % (A) 0.9 %; Eosinophils # (A) 0.23 X 10*3/uL (0.04-0.35); Eosinophils % (A) 5.1 %; HCT 45.3 % (39.6-50.0); HGB 14.5 g/dL (13.0-17.0); Immature Grans, Automated 0.7 %; Lymphocytes # (A) 1.11 X 10*3/uL (0.90-5.00); Lymphocytes % (A) 24.6 %; MCH 31.9 pg (27.0-32.0); MCV 99.6 fL (80.0-97.0); Mean Platelet Volume 10.5 fL (9.5-12.2); Monocytes # (A) 1.03 X 10*3/uL (0.20-1.00); Monocytes % (A) 22.8 %; NRBC Per 100 WBC 0 /100 WBCS (0.0-0.0); Neutrophils # (A) 2.08 X 10*3/uL (1.80-7.70); Neutrophils % (A) 45.9 %; Platelet Count 126 X 10*3/uL (140-440); RBC 4.55 X 10*6/uL (4.40-5.60); RDW 13.3 % (11.5-14.5); WBC 4.52 X 10*3/uL (4.50-10.00)
[2022-02-05 09:10] LABS: African American GFR (CKD) 100.6 (60.0-200.0); Albumin 3.4 g/dL (3.8-4.9); Albumin/Globulin Ratio 1.55 (1.60-3.17); Anion Gap 8.1 mmol/L (10.00-18.00); BUN/Creat Ratio 14.67 Ratio (12.00-20.00); Blood Urea Nitrogen 13.2 mg/dL (9.0-27.0); Calcium 8.6 mg/dL (8.7-10.3); Carbon Dioxide 30.9 mmol/L (20.0-27.5); Globulin 2.2 g/dL (1.6-3.3); Magnesium 2.1 mg/dL (1.5-2.4); Non-African American GFR(CKD) 86.8 (60.0-200.0); Potassium 4.8 mmol/L (3.5-5.5); Total Bilirubin 0.3 mg/dL (0.30-1.20); Total Protein 5.6 g/dL (6.2-8.2)
--- NOTE | 2022-02-05 09:56 | P.PN ---
Subjective Patient is seen for follow-up for hyponatremia which is hypovolemic initially. Status post IV fluids initially but he did receive her dose of Samsca on 02/03/2022. Serum sodium was 134 yesterday. Labs are pending from today. TSH and cortisol levels were within normal range No significant complaints today. Diuretics currently on hold. Patient did receive a dose of Samsca on 02/03/2022 Objective - Vital Signs Vital signs: Vital Signs Temp 98.1 F 02/05/22 07:33 Pulse 76 02/05/22 07:33 Resp 18 02/05/22 07:33 BP 106/45 02/05/22 07:33 Pulse Ox 96 02/05/22 07:33 FiO2 Intake & Output 02/04/22 02/05/22 02/05/22 18:59 06:59 18:59 Intake Total 828 Balance 828 Weight 136.078 kg Intake: Oral 828 Other: Voiding Method Urinal Toilet # Voids 2 5 - Exam Awake, comfortable, not in any acute distress Examination of the heart S1 and S2 Examination lungs bilateral breath sounds are heard Abdomen is soft obese nontender Examination of lower extremity shows chronic skin changes. No significant edema noted. COLLISION REPAIR TECHNICIAN exam grossly intact - Labs CBC & Chem 7: 02/05/22 06:30 02/05/22 06:30 Labs: Abnormal Lab Results - Last 24 Hours (Table) 02/05/22 02/05/22 Range/Units 06:30 06:30 MCV 99.6 H (80.0-97.0) fL Plt Count 126 L (140-440) X 10*3/uL Monocytes # 1.03 H (0.20-1.00) X 10*3/uL Sodium 134 L (135-145) mmol/L Chloride 95 L (96-109) mmol/L Carbon Dioxide 30.9 H (20.0-27.5) mmol/L Anion Gap 8.10 L (10.00-18.00) mmol/L Calcium 8.6 L (8.7-10.3) mg/dL AST 46 H (14-35) U/L Total Protein 5.6 L (6.2-8.2) g/dL Albumin 3.4 L (3.8-4.9) g/dL Albumin/Globulin Ratio 1.55 L (1.60-3.17) g/dL Microbiology - Last 24 Hours (Table) 02/03/22 04:00 Blood Culture - Preliminary Blood No Growth after 48 hours 02/03/22 04:22 Blood Culture - Preliminary Blood No Growth after 48 hours Assessment and Plan Assessment: 1. Hyponatremia initially hypovolemic however it appears that patient did receive a dose of Samsca on 02/03/2022. He is maintained on fluid restriction Labs are pending from today Diuretics currently on hold 2. Benign hypertension currently stable 3. History of EtOH abuse Plan: Follow-up on labs from today. Continue with some degree of free water restriction Encourage increased oral intake particularly protein.
--- NOTE | 2022-02-05 11:51 | P.DS ---
Providers Date of admission: 01/30/22 23:24 Expected date of discharge: 02/05/22 Attending physician: Johnny Lane Consults: 01/31/22 12:13 Consult Physician Routine Consulting Provider: Giovana Thomas Consult Reason/Comments: hyponatremia Do you want consulting provider notified?: Yes Primary care physician: Johnny Lane [facility] Course: HISTORY OF PRESENT ILLNESS: This is a 71-year-old male one of my patient with a previous medical history significant for hypertension and hypertensive cardiovascular disease, hyperlipidemia, obesity with obstructive sleep apnea, history of chronic alcohol use and dependence with the peripheral neuropathy, significant spondylosis of the lumbar spine with spinal stenosis and significant chronic low back pain. Patient states that 2 days ago he was sitting in a chair and he went to get up and his legs wouldn't move. He states he was unable to move for 2 days. No diarrhea. No alcohol intake. He states he has been urinating adequately. His daughter last visited him 2 days ago. Patient was brought into [facility] by EMS. Apparently was Adult Protective Services report done by EMS regarding cleanliness and safety at home. Patient was found to be afebrile, heart rate 80, blood pressure 138/73, pulse ox 90% on room air. WBC 14.7, hemoglobin 16.9, platelet count 318. Sodium 121, potassium 4.3, chloride 88, CO2 20, BUN 17 creatinine 0.7. Lactic acid 2.4 and repeat 1.8. Total bilirubin 1.7 otherwise liver function tests are normal. Troponin negative. Urinalysis 2+ ketones and small blood. Repeat sodium this morning is 121 and white count is down to 13. Chest x-ray reveals no acute cardio pulmonary process. Patient admitted to the MedSur floor, consult requested with nephrology. 02/01: Patient complains of weakness in his legs, tender throat and cough. He has been seen by nephrology with recommendations for decreased IV fluids to 50 mL per hour, continue to hold Lasix, a 1200 mL fluid restriction and discontinue Toradol. Patient has been afebrile, heart rate 76, blood pressure 143/78, pulse ox 97% on room air. Cortisol level VII. ProBNP 191. TSH 2.4. Repeat sodium 126, potassium 4.5, chloride 102, CO2 20, BUN 13 and creatinine 0.71. Blood sugar 99. Patient is been seen by physical therapy with recommendations for subacute rehab but patient may be leaning towards going home instead. Social work is following. 02/02: Patient remains afebrile, heart rate 86, blood pressure 1 3479, pulse ox 96% on room air. Repeat blood work reveals sodium 131, potassium 4.4, chloride 99, CO2 22, BUN 10 and creatinine 0.8. Blood sugars 122. Nephrology has discontinue IV fluids, continue to hold Lasix, continue 1200 mL fluid restriction, encourage oral intake and repeat BMP and magnesium in 2-3 days post discharge and follow-up in one week. Patient has been cleared for discharge by nephrology with plan for repeat labs in 2-3 days and follow-up in one week. Patient continues to complain of cough and will be started on Claritin also states that he will not be able to go home until Monday due to the fact that he needs help set up at home. rehabilitation center manager has been updated. 02/03: Patient had temperature of 101.2 this morning at 2 AM. Heart rate 92, blood pressure 174/84, pulse ox 93% on room air. Urinalysis revealed blood large, leukoesterase trace, RBCs 42, diabetes 3. Repeat blood work today reveals sodium of 126, potassium 4.2, chloride 92, CO2 24, BUN 8.7, creatinine 0.7. Nephrology has ordered Samsca 7.5 mg once today. Chest x-ray completed but unable to open report due to system down time. Patient continues to complain of cough with sputum production. Patient started on Zosyn and Levaquin and consult added for Dr. Pete 02/04: patient is laying down in bed in no apparent distress, he continues to have some coughing, minimal from production, he denies any chest pain and some he continues to be little bit short of breath, he has no abdominal pain, nausea or vomiting, he continues to complain of pain in both lower extremities, he does not want to go to the extended care facility today, he would be seen in consultation by pulmonary medicine, his chest x-ray did not show any evidence of acute pneumonia, he was started on Levaquin 750 mg orally once every day, discontinue Zosyn, continue oral antibiotic for 5 days for possible acute bronchitis discharge Diagnoses: 1. Hyponatremia secondary to to hypovolemia . 2. Lactic acidosis, resolved. 3. Possible acute bronchitis. 4. Hypertension and hypertensive cardiovascular disease. 5. Hyperlipidemia. 6. Vascular dementia. 7. Chronic alcohol use and dependence. 8. 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 9. Bilateral lower extremity neuropathy 10. Depression Patient Condition at Discharge: Fair Plan - Discharge Summary Discharge Rx Participant: No New Discharge Prescriptions: No Action Memantine [Namenda] 5 mg PO BID Furosemide [Lasix] 40 mg PO DAILY Cyanocobalamin (Vitamin B-12) [Vitamin B-12] 500 mcg PO DAILY Thiamine [Vitamin B-1] 100 mg PO DAILY Cyclobenzaprine [Flexeril] 10 mg PO HS PRN PRN Reason: Muscle Spasm HYDROcodone/APAP 10-325MG [[place] 10-325] 1 tab PO QID PRN #12 tab PRN Reason: Pain Lidocaine 4% Patch 1 patch TOPICAL Q12H PRN PRN Reason: pain Ammonium Lactate Lotion [Lac-Hydrin 12% Lotion] 1 applic TOPICAL BID Lactulose 10 gm PO BID Potassium Chloride [Klor-Con 20] 20 meq PO DAILY Losartan Potassium 50 mg PO DAILY Multivitamins, Thera [Multivitamin (formulary)] 1 tab PO DAILY Clotrimazole/Betamethasone Dip [Lotrisone Cream] 1 applic TOPICAL BID Sennosides-Docusate Sodium [Senokot-S] 2 tab PO HS #60 tablet Aspirin EC [Ecotrin Low Dose] 81 mg PO DAILY Atorvastatin [Lipitor] 40 mg PO DAILY DULoxetine HCL [Cymbalta] 60 mg PO DAILY Pregabalin [Lyrica] 200 mg PO BID Discharge Medication List Furosemide [Lasix] 40 mg PO DAILY 05/06/21 [History] Losartan Potassium 50 mg PO DAILY 05/06/21 [History] Memantine [Namenda] 5 mg PO BID 05/06/21 [History] Potassium Chloride [Klor-Con 20] 20 meq PO DAILY 05/06/21 [History] Clotrimazole/Betamethasone Dip [Lotrisone Cream] 1 applic TOPICAL BID 06/25/21 [History] Cyanocobalamin (Vitamin B-12) [Vitamin B-12] 500 mcg PO DAILY 06/25/21 [History] Cyclobenzaprine [Flexeril] 10 mg PO HS PRN 06/25/21 [History] Multivitamins, Thera [Multivitamin (formulary)] 1 tab PO DAILY 06/25/21 [History] Thiamine [Vitamin B-1] 100 mg PO DAILY 06/25/21 [History] HYDROcodone/APAP 10-325MG [[place] 10-325] 1 tab PO QID PRN #12 tab 06/28/21 [Rx] Sennosides-Docusate Sodium [Senokot-S] 2 tab PO HS #60 tablet 06/28/21 [Rx] Ammonium Lactate Lotion [Lac-Hydrin 12% Lotion] 1 applic TOPICAL BID 01/31/22 [History] Aspirin EC [Ecotrin Low Dose] 81 mg PO DAILY 01/31/22 [History] Atorvastatin [Lipitor] 40 mg PO DAILY 01/31/22 [History] DULoxetine HCL [Cymbalta] 60 mg PO DAILY 01/31/22 [History] Lactulose 10 gm PO BID 01/31/22 [History] Lidocaine 4% Patch 1 patch TOPICAL Q12H PRN 01/31/22 [History] Pregabalin [Lyrica] 200 mg PO BID 01/31/22 [History] Follow up Appointment(s)/Referral(s): Johnny Lane MD [Primary Care Provider] - 02/11/22 10:30 am [facility], [NON-STAFF] - 1 Week Discharge Disposition: HOME WITH HOME HEALTH SERVICES
--- NOTE | 2022-02-05 13:34 | P.PN ---
Subjective Progress Note Date: 02/05/22 HISTORY OF PRESENT ILLNESS: This is a 71-year-old male one of my patient with a previous medical history significant for hypertension and hypertensive cardiovascular disease, hyperlipidemia, obesity with obstructive sleep apnea, history of chronic alcohol use and dependence with the peripheral neuropathy, significant spondylosis of the lumbar spine with spinal stenosis and significant chronic low back pain. Patient states that 2 days ago he was sitting in a chair and he went to get up and his legs wouldn't move. He states he was unable to move for 2 days. No diarrhea. No alcohol intake. He states he has been urinating adequately. His daughter last visited him 2 days ago. Patient was brought into [facility] by EMS. Apparently was Adult Protective Services report done by EMS regarding cleanliness and safety at home. Patient was found to be afebrile, heart rate 80, blood pressure 138/73, pulse ox 90% on room air. WBC 14.7, hemoglobin 16.9, platelet count 318. Sodium 121, potassium 4.3, chloride 88, CO2 20, BUN 17 creatinine 0.7. Lactic acid 2.4 and repeat 1.8. Total bilirubin 1.7 otherwise liver function tests are normal. Troponin negative. Urinalysis 2+ ketones and small blood. Repeat sodium this morning is 121 and white count is down to 13. Chest x-ray reveals no acute cardio pulmonary process. Patient admitted to the MedSurg floor, consult requested with nephrology. 02/01: Patient complains of weakness in his legs, tender throat and cough. He has been seen by nephrology with recommendations for decreased IV fluids to 50 mL per hour, continue to hold Lasix, a 1200 mL fluid restriction and discontinue Toradol. Patient has been afebrile, heart rate 76, blood pressure 143/78, pulse ox 97% on room air. Cortisol level VII. ProBNP 191. TSH 2.4. Repeat sodium 126, potassium 4.5, chloride 102, CO2 20, BUN 13 and creatinine 0.71. Blood sugar 99. Patient is been seen by physical therapy with recommendations for subacute rehab but patient may be leaning towards going home instead. Social work is following. 02/02: Patient remains afebrile, heart rate 86, blood pressure 1 3479, pulse ox 96% on room air. Repeat blood work reveals sodium 131, potassium 4.4, chloride 99, CO2 22, BUN 10 and creatinine 0.8. Blood sugars 122. Nephrology has discontinue IV fluids, continue to hold Lasix, continue 1200 mL fluid restriction, encourage oral intake and repeat BMP and magnesium in 2-3 days post discharge and follow-up in one week. Patient has been cleared for discharge by nephrology with plan for repeat labs in 2-3 days and follow-up in one week. Patient continues to complain of cough and will be started on Claritin also states that he will not be able to go home until Monday due to the fact that he needs help set up at home. manager pathology has been updated. 02/03: Patient had temperature of 101.2 this morning at 2 AM. Heart rate 92, blood pressure 174/84, pulse ox 93% on room air. Urinalysis revealed blood large, leukoesterase trace, RBCs 42, diabetes 3. Repeat blood work today reveals sodium of 126, potassium 4.2, chloride 92, CO2 24, BUN 8.7, creatinine 0.7. Nephrology has ordered Samsca 7.5 mg once today. Chest x-ray completed but unable to open report due to system down time. Patient continues to complain of cough with sputum production. Patient started on Zosyn and Levaquin and consult added for Dr. Pete 02/04: patient is laying down in bed in no apparent distress, he continues to have some coughing, minimal from production, he denies any chest pain and some he continues to be little bit short of breath, he has no abdominal pain, nausea or vomiting, he continues to complain of pain in both lower extremities, he does not want to go to the extended care facility today, he would be seen in co nsultation by pulmonary medicine, his chest x-ray did not show any evidence of acute pneumonia, he was started on Levaquin 750 mg orally once every day, discontinue Zosyn, continue oral antibiotic for 5 days for possible acute bronchitis 02/05: Patient is laying down in bed in no apparent distress at this time, there is no prior authorization for the patient to be transferred to [facility], therefore patient will have to see over the weekend I spoke with project safety manager the orders that the patient can get out of the hospital is on Monday, maintain the patient on oral Levaquin 750 mg once every day, monitor the patient vital signs very closely, his sodium is up to 134, patient did receive only 1 dose of Samsca, nephrology is following continue the patient fluid restriction 1200 mL in 24 hours, continue and increase oral intake of protein discussed with the nurse to provide him with ensure Vanilla- flavored twice every day. REVIEW OF SYSTEMS: Constitutional: +Documented fever, no chills, no night sweats. No weight change. positive for weakness , reports fatigue reports lethargy. Positive for daytime sleepiness. HEENT: No headache. No blurred vision or double vision, no loss of vision. No loss of Hearing, no ringing in the ears, no dizziness. No nasal drainage or congestion. No epistaxis. No sore throat. Lungs: No shortness of breath, reports cough, reports sputum production. No wheezing. Reports dyspnea with activity. Cardiovascular: No chest pain, positive for lower extremity edema. No palpitations. No paroxysmal nocturnal dyspnea. No orthopnea. No lightheadedness or dizziness. No syncopal episodes.Positive for nocturia. Abdominal: No abdominal pain. No nausea, vomiting. No diarrhea. No constipation. No bloody or tarry stools . No loss of appetite. Genitourinary: No dysuria, increased frequency, urgency. No urinary retention. Musculoskeletal: positive for neck pain, positive for chronic low back pain, positive for significant pain in both lower extremities with significant neuropathy, positive for gait dysfunction, positive for lower extremity weakness. Integumentary: No wounds, no lesions. No rash or pruritus. No unusual bruising. Does appear to have seborrheic dermatitis Neurologic: No aphasia. No facial droop. Memory loss. No head injury. No headache, positive for paresthesia in both lower extremities Psychiatric: Patient does appear to be somewhat depressed, appears to be a bit anxious, no suicidal thoughts or ideation. Endocrine: No abnormal blood sugars. PHYSICAL EXAMINATION: General: This is a 71-year-old male who is resting in bed and does not appear to be in acute distress. Occasional cough noted. HEENT: Head is atraumatic, normocephalic, pupils were equal round reactive to light and recommendation, extraocular muscle movement were intact, sclera nonicteric, conjunctivae were pale, mucous membranes of the mouth are somewhat dry. Neck: Supple, no JVP, normal carotid upstroke bilaterally, no lymphadenopathy. Chest: Decreased breath sounds at the bases, few rhonchi, no expiratory wheezes, no chest wall tenderness, no intercostal retractions. Heart: First heart sound is normal, second heart sound is normal there is systolic ejection murmur 2/6 located in the left sternal border. Abdomen: Soft, nontender, nondistended, positive bowel sounds. Extremities: There is chronic significant venous stasis of both lower extremity with a chronic skin changes dorsalis pedis +1 bilaterally poor foot hygiene. Neurologic examination: Patient is awake alert and oriented X 3, cranial nerves II-12 appear grossly intact, muscle power were 4 out of 5 in upper extremities and 3out of 5 in bilateral lower extremities, deep tendon reflexes were depressed bilaterally. ASSESSMENT AND PLAN: 1. Hyponatremia secondary to to hypovolemia . Samsca 7.5 mg 1, fluid restriction of 1200 mL, continue to hold Lasix, discontinue Toradol. Nephrology consult appreciated. sodium level was 134, increase protein intake 2. Lactic acidosis, resolved. 3. acute bronchitis. Chest x-ray has been completed,no evidence of pulmonary infiltrate, continue Levaquin 750 mg orally once every day. 4. Hypertension and hypertensive cardiovascular disease. restart the patient on losartan 50 mg orally once every day. 5. Hyperlipidemia. Continue atorvastatin 40 mg daily. 6. Vascular dementia. We will continue Namenda 5 mg po bid 7. Chronic alcohol use and dependence. Patient states he has been abstaining from alcohol. No need for [facility] protocol. 8. 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 Continue [place] 10/325 mg 1 tablet every 6 hours as needed. 9. Bilateral lower extremity neuropathy continue patient on Lyrica 200 mg orally twice every day. 10. Depression. Continue patient on Cymbalta 60 mg orally once every day. 11. DVT prophylaxis. Continue Lovenox 40 mg subcutaneously every 24 hours. 12. GI prophylaxis. Continue Protonix 40 mg orally once every day. Patient is full code. DISCHARGE PLAN Subacute rehab at [facility] on Monday. Objective - Vital Signs Vital signs: Vital Signs Temp 98.1 F 02/05/22 07:33 Pulse 76 02/05/22 07:33 Resp 18 02/05/22 07:33 BP 106/45 02/05/22 07:33 Pulse Ox 96 02/05/22 07:33 FiO2 Intake & Output 02/04/22 02/05/22 02/05/22 18:59 06:59 18:59 Intake Total 828 Balance 828 Weight 136.078 kg Intake: Oral 828 Other: Voiding Method Urinal Toilet # Voids 2 5 - Labs CBC & Chem 7: 02/05/22 06:30 02/05/22 06:30 Labs: Abnormal Lab Results - Last 24 Hours (Table) 02/05/22 02/05/22 Range/Units 06:30 06:30 MCV 99.6 H (80.0-97.0) fL Plt Count 126 L (140-440) X 10*3/uL Monocytes # 1.03 H (0.20-1.00) X 10*3/uL Sodium 134 L (135-145) mmol/L Chloride 95 L (96-109) mmol/L Carbon Dioxide 30.9 H (20.0-27.5) mmol/L Anion Gap 8.10 L (10.00-18.00) mmol/L Calcium 8.6 L (8.7-10.3) mg/dL AST 46 H (14-35) U/L Total Protein 5.6 L (6.2-8.2) g/dL Albumin 3.4 L (3.8-4.9) g/dL Albumin/Globulin Ratio 1.55 L (1.60-3.17) g/dL Microbiology - Last 24 Hours (Table) 02/03/22 04:00 Blood Culture - Preliminary Blood No Growth after 48 hours 02/03/22 04:22 Blood Culture - Preliminary Blood No Growth after 48 hours
[2022-02-05] MEDS: CYCLOBENZAPRINE 10 MG TAB PO PRN (19:41)
[2022-02-05] MEDS: SENNOSIDES-DOCUSATE SODIUM 1 EACH TAB PO SCH (19:42)
[2022-02-06] MEDS: CYANOCOBALAMIN 500 MCG TAB PO SCH (07:41)
[2022-02-06] MEDS: THIAMINE 100 MG TAB PO SCH (07:41)
[2022-02-06] MEDS: MEMANTINE 5 MG TAB PO SCH ×2 (07:41→20:12)
[2022-02-06] MEDS: PREGABALIN 100 MG CAP PO SCH ×2 (07:41→20:12)
[2022-02-06] MEDS: LOSARTAN 50 MG TAB PO SCH (07:42)
[2022-02-06] MEDS: PANTOPRAZOLE 40 MG TABLET PO SCH (07:42)
[2022-02-06] MEDS: ENOXAPARIN 40 MG/0.4 ML SYRINGE SQ SCH (07:42)
[2022-02-06] MEDS: MULTIVITAMINS, THERA 1 EACH TAB PO SCH (07:42)
[2022-02-06] MEDS: ASPIRIN 81 MG PO SCH (07:42)
[2022-02-06] MEDS: LORATADINE 10 MG TAB PO SCH (07:42)
[2022-02-06] MEDS: DULoxetine HCL 60 MG CAPSULE.DR PO SCH (07:42)
[2022-02-06] MEDS: ATORVASTATIN 40 MG TAB PO SCH (07:42)
[2022-02-06] MEDS: HYDROcodone/APAP 10-325MG 1 EACH TAB PO PRN ×3 (07:42→20:13)
[2022-02-06] MEDS: LACTULOSE 20 GM/30 ML CUP PO SCH ×2 (07:43→20:13)
[2022-02-06] MEDS: LEVOFLOXACIN 750 MG TAB PO SCH (07:44)
[2022-02-06] MEDS: AMMONIUM LACTATE 12% LOTION 225 GM BTL TOPICAL SCH ×2 (07:45→20:13)
[2022-02-06] MEDS: FLUTICASONE 50MCG/SPRAY NASAL 16GM EA NOSTRIL SCH (07:45)
[2022-02-06] MEDS: IPRATROPIUM-ALBUTEROL 3 ML NEB INHALATION SCH ×4 (08:39→19:36)
--- NOTE | 2022-02-06 11:22 | P.PN ---
Subjective Patient is seen for follow-up for hyponatremia which is hypovolemic initially. Status post IV fluids initially but he did receive her dose of Samsca on 02/03/2022. Serum sodium was 134 yesterday. TSH and cortisol levels were within normal range No significant complaints today. Diuretics currently on hold. Patient did receive a dose of Samsca on 02/03/2022 Patient is sleeping comfortably. Objective - Vital Signs Vital signs: Vital Signs Temp 98.4 F 02/06/22 07:48 Pulse 71 02/06/22 07:48 Resp 16 02/06/22 07:48 BP 120/68 02/06/22 07:48 Pulse Ox 95 02/06/22 02:00 FiO2 Intake & Output 02/05/22 02/06/22 02/06/22 18:59 06:59 18:59 Intake Total 800 240 Output Total 800 1500 Balance 0 -1500 240 Intake: Oral 800 240 Output: Urine 800 1500 Other: Voiding Method Urinal - Exam Patient is sleeping. Arousable Appears euvolemic - Labs CBC & Chem 7: 02/05/22 06:30 02/05/22 06:30 Labs: Microbiology - Last 24 Hours (Table) 02/03/22 04:00 Blood Culture - Preliminary Blood No Growth after 72 hours 02/03/22 04:22 Blood Culture - Preliminary Blood No Growth after 72 hours Assessment and Plan Assessment: 1. Hyponatremia initially hypovolemic however it appears that patient did receive a dose of Samsca on 02/03/2022. He is maintained on fluid restriction. Sodium 134 yesterday Diuretics currently on hold 2. Benign hypertension currently stable 3. History of EtOH abuse Plan: Recheck labs in a.m.
--- NOTE | 2022-02-06 14:30 | P.PN ---
Subjective Progress Note Date: 02/06/22 HISTORY OF PRESENT ILLNESS: This is a 71-year-old male one of my patient with a previous medical history significant for hypertension and hypertensive cardiovascular disease, hyperlipidemia, obesity with obstructive sleep apnea, history of chronic alcohol use and dependence with the peripheral neuropathy, significant spondylosis of the lumbar spine with spinal stenosis and significant chronic low back pain. Patient states that 2 days ago he was sitting in a chair and he went to get up and his legs wouldn't move. He states he was unable to move for 2 days. No diarrhea. No alcohol intake. He states he has been urinating adequately. His daughter last visited him 2 days ago. Patient was brought into [facility] by EMS. Apparently was Adult Protective Services report done by EMS regarding cleanliness and safety at home. Patient was found to be afebrile, heart rate 80, blood pressure 138/73, pulse ox 90% on room air. WBC 14.7, hemoglobin 16.9, platelet count 318. Sodium 121, potassium 4.3, chloride 88, CO2 20, BUN 17 creatinine 0.7. Lactic acid 2.4 and repeat 1.8. Total bilirubin 1.7 otherwise liver function tests are normal. Troponin negative. Urinalysis 2+ ketones and small blood. Repeat sodium this morning is 121 and white count is down to 13. Chest x-ray reveals no acute cardio pulmonary process. Patient admitted to the MedSurg floor, consult requested with nephrology. 02/01: Patient complains of weakness in his legs, tender throat and cough. He has been seen by nephrology with recommendations for decreased IV fluids to 50 mL per hour, continue to hold Lasix, a 1200 mL fluid restriction and discontinue Toradol. Patient has been afebrile, heart rate 76, blood pressure 143/78, pulse ox 97% on room air. Cortisol level VII. ProBNP 191. TSH 2.4. Repeat sodium 126, potassium 4.5, chloride 102, CO2 20, BUN 13 and creatinine 0.71. Blood sugar 99. Patient is been seen by physical therapy with recommendations for subacute rehab but patient may be leaning towards going home instead. Social work is following. 02/02: Patient remains afebrile, heart rate 86, blood pressure 1 3479, pulse ox 96% on room air. Repeat blood work reveals sodium 131, potassium 4.4, chloride 99, CO2 22, BUN 10 and creatinine 0.8. Blood sugars 122. Nephrology has discontinue IV fluids, continue to hold Lasix, continue 1200 mL fluid restriction, encourage oral intake and repeat BMP and magnesium in 2-3 days post discharge and follow-up in one week. Patient has been cleared for discharge by nephrology with plan for repeat labs in 2-3 days and follow-up in one week. Patient continues to complain of cough and will be started on Claritin also states that he will not be able to go home until Monday due to the fact that he needs help set up at home. manager marketing communication has been updated. 02/03: Patient had temperature of 101.2 this morning at 2 AM. Heart rate 92, blood pressure 174/84, pulse ox 93% on room air. Urinalysis revealed blood large, leukoesterase trace, RBCs 42, diabetes 3. Repeat blood work today reveals sodium of 126, potassium 4.2, chloride 92, CO2 24, BUN 8.7, creatinine 0.7. Nephrology has ordered Samsca 7.5 mg once today. Chest x-ray completed but unable to open report due to system down time. Patient continues to complain of cough with sputum production. Patient started on Zosyn and Levaquin and consult added for Dr. Pete 02/04: patient is laying down in bed in no apparent distress, he continues to have some coughing, minimal from production, he denies any chest pain and some he continues to be little bit short of breath, he has no abdominal pain, nausea or vomiting, he continues to complain of pain in both lower extremities, he does not want to go to the extended care facility today, he would be seen in co nsultation by pulmonary medicine, his chest x-ray did not show any evidence of acute pneumonia, he was started on Levaquin 750 mg orally once every day, discontinue Zosyn, continue oral antibiotic for 5 days for possible acute bronchitis 02/05: Patient is laying down in bed in no apparent distress at this time, there is no prior authorization for the patient to be transferred to [facility], therefore patient will have to see over the weekend I spoke with case operator the orders that the patient can get out of the hospital is on Monday, maintain the patient on oral Levaquin 750 mg once every day, monitor the patient vital signs very closely, his sodium is up to 134, patient did receive only 1 dose of Samsca, nephrology is following continue the patient fluid restriction 1200 mL in 24 hours, continue and increase oral intake of protein discussed with the nurse to provide him with ensure Vanilla- flavored twice every day. 02/06: Patient is laying down in bed he continues to complain of increased dry cough, minimal from production, he continues to be on fluid restriction 1200 mL per 24 hours, he has been getting antibiotic, we'll start him on Tessalon Perles 100 mg orally 3 times every day, chest x-ray was clear, patient has been maintained on loratadine 10 mg orally once every day as well as Flonase as a spray for postnasal drip, we will add montelukast 10 mg at bedtime. Still awaiting prior authorization from [facility] [place] [facility] [place] REVIEW OF SYSTEMS: Constitutional: +Documented fever, no chills, no night sweats. No weight c hange. positive for weakness , reports fatigue reports lethargy. Positive for daytime sleepiness. HEENT: No headache. No blurred vision or double vision, no loss of vision. No loss of Hearing, no ringing in the ears, no dizziness. No nasal drainage or congestion. No epistaxis. No sore throat. Lungs: No shortness of breath, reports cough, reports sputum production. No wheezing. Reports dyspnea with activity. Cardiovascular: No chest pain, positive for lower extremity edema. No palpita tions. No paroxysmal nocturnal dyspnea. No orthopnea. No lightheadedness or dizziness. No syncopal episodes.Positive for nocturia. Abdominal: No abdominal pain. No nausea, vomiting. No diarrhea. No constipation. No bloody or tarry stools . No loss of appetite. Genitourinary: No dysuria, increased frequency, urgency. No urinary retention. Musculoskeletal: positive for neck pain, positive for chronic low back pain, positive for significant pain in both lower extremities with significant neuropathy, positive for gait dysfunction, positive for lower extremity weakness. Integumentary: No wounds, no lesions. No rash or pruritus. No unusual bruising. Does appear to have seborrheic dermatitis Neurologic: No aphasia. No facial droop. Memory loss. No head injury. No headache, positive for paresthesia in both lower extremities Psychiatric: Patient does appear to be somewhat depressed, appears to be a bit anxious, no suicidal thoughts or ideation. Endocrine: No abnormal blood sugars. PHYSICAL EXAMINATION: General: This is a 71-year-old male who is resting in bed and does not appear to be in acute distress. Occasional cough noted. HEENT: Head is atraumatic, normocephalic, pupils were equal round reactive to light and recommendation, extraocular muscle movement were intact, sclera nonicteric, conjunctivae were pale, mucous membranes of the mouth are somewhat dry. Neck: Supple, no JVP, normal carotid upstroke bilaterally, no lymphadenopathy. Chest: Decreased breath sounds at the bases, few rhonchi, no expiratory wheezes, no chest wall tenderness, no intercostal retractions. Heart: First heart sound is normal, second heart sound is normal there is systo lic ejection murmur 2/6 located in the left sternal border. Abdomen: Soft, nontender, nondistended, positive bowel sounds. Extremities: There is chronic significant venous stasis of both lower extremity with a chronic skin changes dorsalis pedis +1 bilaterally poor foot hygiene. Neurologic examination: Patient is awake alert and oriented X 3, cranial nerves II-12 appear grossly intact, muscle power were 4 out of 5 in upper extremities and 3out of 5 in bilateral lower extremities, deep tendon reflexes were depressed bilaterally. ASSESSMENT AND PLAN: 1. Hyponatremia secondary to to hypovolemia . Samsca 7.5 mg 1, fluid restriction of 1200 mL, continue to hold Lasix, Nephrology consult appreciated. sodium level was 134, increase protein intake 2. Lactic acidosis, resolved. 3. acute bronchitis. Chest x-ray has been completed,no evidence of pulmonary infiltrate, continue Levaquin 750 mg orally once every day, add Tessalon Perles 100 mg orally 2 times every day and montelukast 10 mg of the time. 4. Hypertension and hypertensive cardiovascular disease. on losartan 50 mg orally once every day. 5. Hyperlipidemia. Continue atorvastatin 40 mg daily. 6. Vascular dementia. We will continue Namenda 5 mg po bid 7. Chronic alcohol use and dependence. Patient states he has been abstaining from alcohol. No need for CIWA protocol. 8. 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 Continue [place] 10/325 mg 1 tablet every 6 hours as needed. 9. Bilateral lower extremity neuropathy continue patient on Lyrica 200 mg orally twice every day. 10. Depression. Continue patient on Cymbalta 60 mg orally once every day. 11. DVT prophylaxis. Continue Lovenox 40 mg subcutaneously every 24 hours. 12. GI prophylaxis. Continue Protonix 40 mg orally once every day. Patient is full code. DISCHARGE PLAN Subacute rehab at [facility] on Monday. Objective - Vital Signs Vital signs: Vital Signs Temp 98.4 F 02/06/22 07:48 Pulse 71 02/06/22 07:48 Resp 16 02/06/22 07:48 BP 120/68 02/06/22 07:48 Pulse Ox 95 02/06/22 02:00 FiO2 Intake & Output 02/05/22 02/06/22 02/06/22 18:59 06:59 18:59 Intake Total 800 240 Output Total 800 1500 Balance 0 -1500 240 Intake: Oral 800 240 Output: Urine 800 1500 Other: Voiding Method Urinal - Labs CBC & Chem 7: 02/05/22 06:30 02/05/22 06:30 Labs: Microbiology - Last 24 Hours (Table) 02/03/22 04:00 Blood Culture - Preliminary Blood No Growth after 72 hours 02/03/22 04:22 Blood Culture - Preliminary Blood No Growth after 72 hours
[2022-02-06] MEDS: BENZONATATE 100 MG CAP PO SCH ×2 (15:36→20:12)
[2022-02-06] MEDS: MONTELUKAST 10 MG TAB PO SCH (20:12)
[2022-02-06] MEDS: SENNOSIDES-DOCUSATE SODIUM 1 EACH TAB PO SCH (20:12)
[2022-02-06] MEDS: CYCLOBENZAPRINE 10 MG TAB PO PRN (20:13)
[2022-02-07] MEDS: HYDROcodone/APAP 10-325MG 1 EACH TAB PO PRN ×5 (00:43→19:53)
[2022-02-07] MEDS: IPRATROPIUM-ALBUTEROL 3 ML NEB INHALATION SCH ×4 (07:37→19:21)
[2022-02-07] MEDS: ENOXAPARIN 40 MG/0.4 ML SYRINGE SQ SCH (07:45)
[2022-02-07] MEDS: MULTIVITAMINS, THERA 1 EACH TAB PO SCH (07:46)
[2022-02-07] MEDS: LOSARTAN 50 MG TAB PO SCH (07:46)
[2022-02-07] MEDS: BENZONATATE 100 MG CAP PO SCH ×3 (07:46→19:53)
[2022-02-07] MEDS: PREGABALIN 100 MG CAP PO SCH ×2 (07:46→19:53)
[2022-02-07] MEDS: DULoxetine HCL 60 MG CAPSULE.DR PO SCH (07:46)
[2022-02-07] MEDS: LORATADINE 10 MG TAB PO SCH (07:46)
[2022-02-07] MEDS: ASPIRIN 81 MG PO SCH (07:47)
[2022-02-07] MEDS: ATORVASTATIN 40 MG TAB PO SCH (07:47)
[2022-02-07] MEDS: MEMANTINE 5 MG TAB PO SCH ×2 (07:47→19:53)
[2022-02-07] MEDS: LEVOFLOXACIN 750 MG TAB PO SCH (07:47)
[2022-02-07] MEDS: PANTOPRAZOLE 40 MG TABLET PO SCH (07:47)
[2022-02-07] MEDS: THIAMINE 100 MG TAB PO SCH (07:47)
[2022-02-07] MEDS: LACTULOSE 20 GM/30 ML CUP PO SCH ×2 (07:47→19:54)
[2022-02-07] MEDS: CYANOCOBALAMIN 500 MCG TAB PO SCH (07:47)
[2022-02-07] MEDS: AMMONIUM LACTATE 12% LOTION 225 GM BTL TOPICAL SCH ×2 (07:52→19:59)
[2022-02-07] MEDS: FLUTICASONE 50MCG/SPRAY NASAL 16GM EA NOSTRIL SCH (07:53)
--- NOTE | 2022-02-07 09:58 | P.PN ---
Subjective Progress Note Date: 02/07/22 HISTORY OF PRESENT ILLNESS: This is a 71-year-old male one of my patient with a previous medical history significant for hypertension and hypertensive cardiovascular disease, hyperlipidemia, obesity with obstructive sleep apnea, history of chronic alcohol use and dependence with the peripheral neuropathy, significant spondylosis of the lumbar spine with spinal stenosis and significant chronic low back pain. Patient states that 2 days ago he was sitting in a chair and he went to get up and his legs wouldn't move. He states he was unable to move for 2 days. No diarrhea. No alcohol intake. He states he has been urinating adequately. His daughter last visited him 2 days ago. Patient was brought into [facility] by EMS. Apparently was Adult Protective Services report done by EMS regarding cleanliness and safety at home. Patient was found to be afebrile, heart rate 80, blood pressure 138/73, pulse ox 90% on room air. WBC 14.7, hemoglobin 16.9, platelet count 318. Sodium 121, potassium 4.3, chloride 88, CO2 20, BUN 17 creatinine 0.7. Lactic acid 2.4 and repeat 1.8. Total bilirubin 1.7 otherwise liver function tests are normal. Troponin negative. Urinalysis 2+ ketones and small blood. Repeat sodium this morning is 121 and white count is down to 13. Chest x-ray reveals no acute cardio pulmonary process. Patient admitted to the MedSurg floor, consult requested with nephrology. 02/01: Patient complains of weakness in his legs, tender throat and cough. He has been seen by nephrology with recommendations for decreased IV fluids to 50 mL per hour, continue to hold Lasix, a 1200 mL fluid restriction and discontinue Toradol. Patient has been afebrile, heart rate 76, blood pressure 143/78, pulse ox 97% on room air. Cortisol level VII. ProBNP 191. TSH 2.4. Repeat sodium 126, potassium 4.5, chloride 102, CO2 20, BUN 13 and creatinine 0.71. Blood sugar 99. Patient is been seen by physical therapy with recommendations for subacute rehab but patient may be leaning towards going home instead. Social work is following. 02/02: Patient remains afebrile, heart rate 86, blood pressure 1 3479, pulse ox 96% on room air. Repeat blood work reveals sodium 131, potassium 4.4, chloride 99, CO2 22, BUN 10 and creatinine 0.8. Blood sugars 122. Nephrology has discontinue IV fluids, continue to hold Lasix, continue 1200 mL fluid restriction, encourage oral intake and repeat BMP and magnesium in 2-3 days post discharge and follow-up in one week. Patient has been cleared for discharge by nephrology with plan for repeat labs in 2-3 days and follow-up in one week. Patient continues to complain of cough and will be started on Claritin also states that he will not be able to go home until Monday due to the fact that he needs help set up at home. oracle manager has been updated. 02/03: Patient had temperature of 101.2 this morning at 2 AM. Heart rate 92, blood pressure 174/84, pulse ox 93% on room air. Urinalysis revealed blood large, leukoesterase trace, RBCs 42, diabetes 3. Repeat blood work today reveals sodium of 126, potassium 4.2, chloride 92, CO2 24, BUN 8.7, creatinine 0.7. Nephrology has ordered Samsca 7.5 mg once today. Chest x-ray completed but unable to open report due to system down time. Patient continues to complain of cough with sputum production. Patient started on Zosyn and Levaquin and consult added for Dr. Pete 02/04: patient is laying down in bed in no apparent distress, he continues to have some coughing, minimal from production, he denies any chest pain and some he continues to be little bit short of breath, he has no abdominal pain, nausea or vomiting, he continues to complain of pain in both lower extremities, he does not want to go to the extended care facility today, he would be seen in co nsultation by pulmonary medicine, his chest x-ray did not show any evidence of acute pneumonia, he was started on Levaquin 750 mg orally once every day, discontinue Zosyn, continue oral antibiotic for 5 days for possible acute bronchitis 02/05: Patient is laying down in bed in no apparent distress at this time, there is no prior authorization for the patient to be transferred to [facility], therefore patient will have to see over the weekend I spoke with nurse case manager the orders that the patient can get out of the hospital is on Monday, maintain the patient on oral Levaquin 750 mg once every day, monitor the patient vital signs very closely, his sodium is up to 134, patient did receive only 1 dose of Samsca, nephrology is following continue the patient fluid restriction 1200 mL in 24 hours, continue and increase oral intake of protein discussed with the nurse to provide him with ensure Vanilla- flavored twice every day. 02/06: Patient is laying down in bed he continues to complain of increased dry cough, minimal from production, he continues to be on fluid restriction 1200 mL per 24 hours, he has been getting antibiotic, we'll start him on Tessalon Perles 100 mg orally 3 times every day, chest x-ray was clear, patient has been maintained on loratadine 10 mg orally once every day as well as Flonase as a spray for postnasal drip, we will add montelukast 10 mg at bedtime. Still [facility] [place] 02/07: Patient is laying down in bed in no apparent distress, he continues to have a minimal dry cough but he stated that it's better than yesterday, he was started yesterday on Tessalon Perles 100 mg orally 3 times every day, also started him on montelukast 10 mg at bedtime, follow-up with the patient in the next 24 hours, patient had refused fluid restriction I explained to the patient the importance of fluid restriction at this time otherwise his sodium will continue to drift down and that we'll delay his discharge. REVIEW OF SYSTEMS: Constitutional: +Documented fever, no chills, no night sweats. No weight change. positive for weakness , reports fatigue reports lethargy. Positive for daytime sleepiness. HEENT: No headache. No blurred vision or double vision, no loss of vision. No loss of Hearing, no ringing in the ears, no dizziness. No nasal drainage or congestion. No epistaxis. No sore throat. Lungs: No shortness of breath, reports cough, reports sputum production. No wheezing. Reports dyspnea with activity. Cardiovascular: No chest pain, positive for lower extremity edema. No palpitations. No paroxysmal nocturnal dyspnea. No orthopnea. No lightheadedness or dizziness. No syncopal episodes.Positive for nocturia. Abdominal: No abdominal pain. No nausea, vomiting. No diarrhea. No constipation. No bloody or tarry stools . No loss of appetite. Genitourinary: No dysuria, increased frequency, urgency. No urinary retention. Musculoskeletal: positive for neck pain, positive for chronic low back pain, positive for significant pain in both lower extremities with significant neuropathy, positive for gait dysfunction, positive for lower extremity weakness. Integumentary: No wounds, no lesions. No rash or pruritus. No unusual bruising. Does appear to have seborrheic dermatitis Neurologic: No aphasia. No facial droop. Memory loss. No head injury. No headache, positive for paresthesia in both lower extremities Psychiatric: Patient does appear to be somewhat depressed, appears to be a bit anxious, no suicidal thoughts or ideation. Endocrine: No abnormal blood sugars. PHYSICAL EXAMINATION: General: This is a 71-year-old male who is resting in bed and does not appear to be in acute distress. Occasional cough noted. HEENT: Head is atraumatic, normocephalic, pupils were equal round reactive to light and recommendation, extraocular muscle movement were intact, sclera nonicteric, conjunctivae were pale, mucous membranes of the mouth are somewhat dry. Neck: Supple, no JVP, normal carotid upstroke bilaterally, no lymphadenopathy. Chest: Decreased breath sounds at the bases, few rhonchi, no expiratory wheezes, no chest wall tenderness, no intercostal retractions. Heart: First heart sound is normal, second heart sound is normal there is systolic ejection murmur 2/6 located in the left sternal border. Abdomen: Soft, nontender, nondistended, positive bowel sounds. Extremities: There is chronic significant venous stasis of both lower extremity with a chronic skin changes dorsalis pedis +1 bilaterally poor foot hygiene. Neurologic examination: Patient is awake alert and oriented X 3, cranial nerves II-12 appear grossly intact, muscle power were 4 out of 5 in upper extremities and 3out of 5 in bilateral lower extremities, deep tendon reflexes were depressed bilaterally. ASSESSMENT AND PLAN: 1. Hyponatremia secondary to to hypovolemia . Samsca 7.5 mg 1, fluid restriction of 1200 mL, continue to hold Lasix, Nephrology consult appreciated. sodium level was 134, increase protein intake 2. Lactic acidosis, resolved. 3. acute bronchitis. Chest x-ray has been completed,no evidence of pulmonary infiltrate, continue Levaquin 750 mg orally once every day, add Tessalon Perles 100 mg orally 2 times every day and montelukast 10 mg of the time. 4. Hypertension and hypertensive cardiovascular disease. on losartan 50 mg orally once every day. 5. Hyperlipidemia. Continue atorvastatin 40 mg daily. 6. Vascular dementia. We will continue Namenda 5 mg po bid 7. Chronic alcohol use and dependence. Patient states he has been abstaining from alcohol. No need for CINC protocol. 8. 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 Continue [place] 10/325 mg 1 tablet every 6 hours as needed. 9. Bilateral lower extremity neuropathy continue patient on Lyrica 200 mg orally twice every day. 10. Depression. Continue patient on Cymbalta 60 mg orally once every day. 11. DVT prophylaxis. Continue Lovenox 40 mg subcutaneously every 24 hours. 12. GI prophylaxis. Continue Protonix 40 mg orally once every day. Patient is full code. DISCHARGE PLAN Subacute rehab at [facility] on Monday. Objective - Vital Signs Vital signs: Vital Signs Temp 98.4 F 02/07/22 07:33 Pulse 76 02/07/22 07:33 Resp 20 02/07/22 07:33 BP 115/65 02/07/22 07:33 Pulse Ox 96 02/07/22 07:33 FiO2 Intake & Output 02/06/22 02/07/22 02/07/22 18:59 06:59 18:59 Intake Total 1920 Output Total 400 1900 Balance 1520 -1900 Intake: Oral 1920 Output: Urine 400 1900 Other: Voiding Method Urinal Urinal # Voids 4 - Labs CBC & Chem 7: 02/05/22 06:30 02/05/22 06:30 Labs: Microbiology - Last 24 Hours (Table) 02/03/22 04:00 Blood Culture - Preliminary Blood No Growth after 96 hours 02/03/22 04:22 Blood Culture - Preliminary Blood No Growth after 96 hours
[2022-02-07 10:52] LABS: Basophils # (A) 0.02 X 10*3/uL (0.00-0.10); Basophils % (A) 0.4 %; Eosinophils # (A) 0.24 X 10*3/uL (0.04-0.35); Eosinophils % (A) 4.8 %; HCT 44.3 % (39.6-50.0); HGB 14.2 g/dL (13.0-17.0); Immature Grans, Automated 0.6 %; Lymphocytes # (A) 1.78 X 10*3/uL (0.90-5.00); Lymphocytes % (A) 35.2 %; MCH 32.1 pg (27.0-32.0); MCHC 32.1 g/dL (32.0-37.0); MCV 100.2 fL (80.0-97.0); Mean Platelet Volume 10.5 fL (9.5-12.2); Monocytes % (A) 15.8 %; NRBC Per 100 WBC 0 /100 WBCS (0.0-0.0); Neutrophils # (A) 2.18 X 10*3/uL (1.80-7.70); Neutrophils % (A) 43.2 %; Platelet Count 159 X 10*3/uL (140-440); RBC 4.42 X 10*6/uL (4.40-5.60); RDW 13.2 % (11.5-14.5); WBC 5.05 X 10*3/uL (4.50-10.00)
[2022-02-07 11:06] LABS: African American GFR (CKD) 100.6 (60.0-200.0); Albumin 3.3 g/dL (3.8-4.9); Albumin/Globulin Ratio 1.57 (1.60-3.17); BUN/Creat Ratio 22.33 Ratio (12.00-20.00); Blood Urea Nitrogen 20.1 mg/dL (9.0-27.0); Calcium 8.6 mg/dL (8.7-10.3); Globulin 2.1 g/dL (1.6-3.3); Magnesium 2.3 mg/dL (1.5-2.4); Non-African American GFR(CKD) 86.8 (60.0-200.0); Potassium 4.4 mmol/L (3.5-5.5); Total Bilirubin 0.3 mg/dL (0.30-1.20); Total Protein 5.4 g/dL (6.2-8.2)
[2022-02-07] MEDS: SENNOSIDES-DOCUSATE SODIUM 1 EACH TAB PO SCH (19:53)
[2022-02-07] MEDS: MONTELUKAST 10 MG TAB PO SCH (19:53)
[2022-02-07] MEDS: CYCLOBENZAPRINE 10 MG TAB PO PRN (19:54)
[2022-02-08] MEDS: HYDROcodone/APAP 10-325MG 1 EACH TAB PO PRN ×4 (05:26→19:26)
[2022-02-08] MEDS: ENOXAPARIN 40 MG/0.4 ML SYRINGE SQ SCH (07:47)
[2022-02-08] MEDS: DULoxetine HCL 60 MG CAPSULE.DR PO SCH (07:47)
[2022-02-08] MEDS: LEVOFLOXACIN 750 MG TAB PO SCH (07:47)
[2022-02-08] MEDS: MEMANTINE 5 MG TAB PO SCH ×2 (07:47→20:24)
[2022-02-08] MEDS: CYANOCOBALAMIN 500 MCG TAB PO SCH (07:47)
[2022-02-08] MEDS: LORATADINE 10 MG TAB PO SCH (07:47)
[2022-02-08] MEDS: ATORVASTATIN 40 MG TAB PO SCH (07:48)
[2022-02-08] MEDS: PREGABALIN 100 MG CAP PO SCH ×2 (07:48→20:24)
[2022-02-08] MEDS: LOSARTAN 50 MG TAB PO SCH (07:48)
[2022-02-08] MEDS: BENZONATATE 100 MG CAP PO SCH ×3 (07:48→20:24)
[2022-02-08] MEDS: ASPIRIN 81 MG PO SCH (07:48)
[2022-02-08] MEDS: PANTOPRAZOLE 40 MG TABLET PO SCH (07:48)
[2022-02-08] MEDS: MULTIVITAMINS, THERA 1 EACH TAB PO SCH (07:48)
[2022-02-08] MEDS: THIAMINE 100 MG TAB PO SCH (07:48)
[2022-02-08] MEDS: LACTULOSE 20 GM/30 ML CUP PO SCH ×2 (07:48→20:24)
[2022-02-08] MEDS: FLUTICASONE 50MCG/SPRAY NASAL 16GM EA NOSTRIL SCH (07:53)
[2022-02-08] MEDS: IPRATROPIUM-ALBUTEROL 3 ML NEB INHALATION SCH ×4 (08:03→19:39)
[2022-02-08 08:58] LABS: Basophils # (A) 0.02 X 10*3/uL (0.00-0.10); Basophils % (A) 0.4 %; Eosinophils # (A) 0.22 X 10*3/uL (0.04-0.35); Eosinophils % (A) 4.6 %; HCT 44.1 % (39.6-50.0); HGB 14.6 g/dL (13.0-17.0); Immature Grans, Automated 0.4 %; Lymphocytes # (A) 2.04 X 10*3/uL (0.90-5.00); Lymphocytes % (A) 42.8 %; MCH 32.4 pg (27.0-32.0); MCHC 33.1 g/dL (32.0-37.0); Mean Platelet Volume 10.2 fL (9.5-12.2); Monocytes # (A) 0.69 X 10*3/uL (0.20-1.00); Monocytes % (A) 14.5 %; NRBC Per 100 WBC 0 /100 WBCS (0.0-0.0); Neutrophils # (A) 1.78 X 10*3/uL (1.80-7.70); Neutrophils % (A) 37.3 %; Platelet Count 169 X 10*3/uL (140-440); RDW 13.1 % (11.5-14.5); WBC 4.77 X 10*3/uL (4.50-10.00)
[2022-02-08 09:31] LABS: African American GFR (CKD) 105.7 (60.0-200.0); Anion Gap 7.4 mmol/L (10.00-18.00); BUN/Creat Ratio 23.53 Ratio (12.00-20.00); Blood Urea Nitrogen 18.8 mg/dL (9.0-27.0); Calcium 8.6 mg/dL (8.7-10.3); Carbon Dioxide 26.3 mmol/L (20.0-27.5); Magnesium 2.1 mg/dL (1.5-2.4); Non-African American GFR(CKD) 91.2 (60.0-200.0); Potassium 4.6 mmol/L (3.5-5.5)
[2022-02-08] MEDS: AMMONIUM LACTATE 12% LOTION 225 GM BTL TOPICAL SCH ×2 (09:57→20:25)
--- NOTE | 2022-02-08 12:06 | P.PN ---
Subjective Patient is seen for follow-up for hyponatremia which is hypovolemic initially. Status post IV fluids initially but he did receive her dose of Samsca on 02/03/2022. Serum sodium was 134 yesterday. TSH and cortisol levels were within normal range No significant complaints today. Diuretics currently on hold. Patient did receive a dose of Samsca on 02/03/2022 Patient is sleeping comfortably. Arousable. Complaining of pain in the legs Serum sodium has been staying at 134. Objective - Vital Signs Vital signs: Vital Signs Temp 97.8 F 02/08/22 07:19 Pulse 76 02/08/22 07:19 Resp 18 02/08/22 07:19 BP 113/79 02/08/22 07:19 Pulse Ox 96 02/08/22 07:19 FiO2 Intake & Output 02/07/22 02/08/22 02/08/22 18:59 06:59 18:59 Intake Total 600 Output Total 500 350 Balance 600 -500 -350 Weight 136.078 kg Intake: Oral 600 Output: Urine 500 350 Other: Voiding Method Urinal Urinal Urinal - Exam Patient is sleeping. Arousable Appears euvolemic Chronic skin changes lower extremities - Labs CBC & Chem 7: 02/08/22 05:41 02/08/22 05:41 Labs: Abnormal Lab Results - Last 24 Hours (Table) 02/08/22 02/08/22 Range/Units 05:41 05:41 MCV 98.0 H (80.0-97.0) fL MCH 32.4 H (27.0-32.0) pg Neutrophils # 1.78 L (1.80-7.70) X 10*3/uL Sodium 134 L (135-145) mmol/L Anion Gap 7.40 L (10.00-18.00) mmol/L BUN/Creatinine Ratio 23.53 H (12.00-20.00) Ratio Calcium 8.6 L (8.7-10.3) mg/dL Microbiology - Last 24 Hours (Table) 02/03/22 04:00 Blood Culture - Preliminary Blood No Growth after 120 hours 02/03/22 04:22 Blood Culture - Preliminary Blood No Growth after 120 hours Assessment and Plan Assessment: 1. Hyponatremia initially hypovolemic however it appears that patient did receive a dose of Samsca on 02/03/2022. He is maintained on fluid restriction. Sodium staying at 134. Diuretics currently on hold 2. Benign hypertension currently stable 3. History of EtOH abuse Plan: Will sign off
--- NOTE | 2022-02-08 12:56 | P.DS ---
Providers Date of admission: 01/30/22 23:24 Expected date of discharge: 02/09/22 Attending physician: Johnny Lane Consults: 01/31/22 12:13 Consult Physician Routine Consulting Provider: Giovana Thomas Consult Reason/Comments: hyponatremia Do you want consulting provider notified?: Yes Primary care physician: Johnny Lane [facility] Course: HISTORY OF PRESENT ILLNESS: This is a 71-year-old male one of my patient with a previous medical history significant for hypertension and hypertensive cardiovascular disease, hyperlipidemia, obesity with obstructive sleep apnea, history of chronic alcohol use and dependence with the peripheral neuropathy, significant spondylosis of the lumbar spine with spinal stenosis and significant chronic low back pain. Patient states that 2 days ago he was sitting in a chair and he went to get up and his legs wouldn't move. He states he was unable to move for 2 days. No diarrhea. No alcohol intake. He states he has been urinating adequately. His daughter last visited him 2 days ago. Patient was brought into [facility] by EMS. Apparently was Adult Protective Services report done by EMS regarding cleanliness and safety at home. Patient was found to be afebrile, heart rate 80, blood pressure 138/73, pulse ox 90% on room air. WBC 14.7, hemoglobin 16.9, platelet count 318. Sodium 121, potassium 4.3, chloride 88, CO2 20, BUN 17 creatinine 0.7. Lactic acid 2.4 and repeat 1.8. Total bilirubin 1.7 otherwise liver function tests are normal. Troponin negative. Urinalysis 2+ ketones and small blood. Repeat sodium this morning is 121 and white count is down to 13. Chest x-ray reveals no acute cardio pulmonary process. Patient admitted to the MedSur floor, consult requested with nephrology. 02/01: Patient complains of weakness in his legs, tender throat and cough. He has been seen by nephrology with recommendations for decreased IV fluids to 50 mL per hour, continue to hold Lasix, a 1200 mL fluid restriction and discontinue Toradol. Patient has been afebrile, heart rate 76, blood pressure 143/78, pulse ox 97% on room air. Cortisol level VII. ProBNP 191. TSH 2.4. Repeat sodium 126, potassium 4.5, chloride 102, CO2 20, BUN 13 and creatinine 0.71. Blood sugar 99. Patient is been seen by physical therapy with recommendations for subacute rehab but patient may be leaning towards going home instead. Social work is following. 02/02: Patient remains afebrile, heart rate 86, blood pressure 1 3479, pulse ox 96% on room air. Repeat blood work reveals sodium 131, potassium 4.4, chloride 99, CO2 22, BUN 10 and creatinine 0.8. Blood sugars 122. Nephrology has discontinue IV fluids, continue to hold Lasix, continue 1200 mL fluid restriction, encourage oral intake and repeat BMP and magnesium in 2-3 days post discharge and follow-up in one week. Patient has been cleared for discharge by nephrology with plan for repeat labs in 2-3 days and follow-up in one week. Patient continues to complain of cough and will be started on Claritin also states that he will not be able to go home until Monday due to the fact that he needs help set up at home. 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 02/03: Patient had temperature of 101.2 this morning at 2 AM. Heart rate 92, blood pressure 174/84, pulse ox 93% on room air. Urinalysis revealed blood large, leukoesterase trace, RBCs 42, diabetes 3. Repeat blood work today reveals sodium of 126, potassium 4.2, chloride 92, CO2 24, BUN 8.7, creatinine 0.7. Nephrology has ordered Samsca 7.5 mg once today. Chest x-ray completed but unable to open report due to system down time. Patient continues to complain of cough with sputum production. Patient started on Zosyn and Levaquin and consult added for Dr. Pete 02/04: patient is laying down in bed in no apparent distress, he continues to have some coughing, minimal from production, he denies any chest pain and some he continues to be little bit short of breath, he has no abdominal pain, nausea or vomiting, he continues to complain of pain in both lower extremities, he does not want to go to the extended care facility today, he would be seen in consultation by pulmonary medicine, his chest x-ray did not show any evidence of acute pneumonia, he was started on Levaquin 750 mg orally once every day, discontinue Zosyn, continue oral antibiotic for 5 days for possible acute bronchitis 02/05: Patient is laying down in bed in no apparent distress at this time, there is no prior authorization for the patient to be transferred to [facility], therefore patient will have to see over the weekend I spoke with case operator the orders that the patient can get out of the hospital is on Monday, maintain the patient on oral Levaquin 750 mg once every day, monitor the patient vital signs very closely, his sodium is up to 134, patient did receive only 1 dose of Samsca, nephrology is following continue the patient fluid restriction 1200 mL in 24 hours, continue and increase oral intake of protein discussed with the nurse to provide him with ensure Vanilla- flavored twice every day. 02/06: Patient is laying down in bed he continues to complain of increased dry cough, minimal from production, he continues to be on fluid restriction 1200 mL per 24 hours, he has been getting antibiotic, we'll start him on Tessalon Perles 100 mg orally 3 times every day, chest x-ray was clear, patient has been maintained on loratadine 10 mg orally once every day as well as Flonase as a spray for postnasal drip, we will add montelukast 10 mg at bedtime. Still awaiting [facility] 02[facility]07: Patient is laying down in bed in no apparent distress, he continues to have a minimal dry cough but he stated that it's better than yesterday, he was started yesterday on Tessalon Perles 100 mg orally 3 times every day, also started him on montelukast 10 mg at bedtime, follow-up with the patient in the next 24 hours, patient had refused fluid restriction I explained to the patient the importance of fluid restriction at this time otherwise his sodium will continue to drift down and that we'll delay his discharge. 02/08: Patient complains of pain in his legs which is chronic. He continues to have cough that seems to be improving. Patient has been afebrile, heart rate 76, blood pressure 113/79, pulse ox 96% on room air. Repeat CBC is unremarkable. Sodium is 134. Patient is waiting for insurance authorization for subacute rehab and discharge plan is to go to medical [facility] [place]. Patient will be discharged once all arrangements are completed. 02/09: Insurance company denied patient's authorization for subacute rehab and this includes a peer to peer eval with Dr. Darryl Rucker. Social work has arranged for home care. No new concerns from the patient. Patient will be discharged home today in stable condition. DISCHARGE DIAGNOSES: 1. Hyponatremia secondary to to hypovolemia . 2. Lactic acidosis, resolved. 3. Possible acute bronchitis. 4. Hypertension and hypertensive cardiovascular disease. 5. Hyperlipidemia. 6. Vascular dementia. 7. Chronic alcohol use and dependence. 8. 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 9. Bilateral lower extremity neuropathy 10. Depression DISCHARGE PLAN Home with [facility] Greater than 35 minutes was utilized and coordinating patient's discharge. Impression and plan of care have been directed as dictated by the signing physician. Suzan Willingham nurse practitioner acting as scribe for signing physician. Patient Condition at Discharge: Stable Plan - Discharge Summary Discharge Rx Participant: No New Discharge Prescriptions: New Ipratropium-Albuterol Nebulize [Duoneb 0.5 mg-3 mg/3 ml Soln] 3 ml INHALATION RT-QID each Fluticasone Nasal [place] [Flonase Nasal [place]] 2 spray EA NOSTRIL DAILY ml Loratadine [Claritin] 10 mg PO DAILY tab Pantoprazole [Protonix] 40 mg PO DAILY #30 tab Montelukast [Singulair] 10 mg PO HS #30 tab Benzonatate [Tessalon Perles] 100 mg PO TID PRN #15 capsule PRN Reason: Cough Continue Memantine [Namenda] 5 mg PO BID Cyanocobalamin (Vitamin B-12) [Vitamin B-12] 500 mcg PO DAILY Thiamine [Vitamin B-1] 100 mg PO DAILY Cyclobenzaprine [Flexeril] 10 mg PO HS PRN PRN Reason: Muscle Spasm Lidocaine 4% Patch 1 patch TOPICAL Q12H PRN PRN Reason: pain Ammonium Lactate Lotion [Lac-Hydrin 12% Lotion] 1 applic TOPICAL BID Lactulose 10 gm PO BID Pregabalin [Lyrica] 200 mg PO BID #6 cap HYDROcodone/APAP 10-325MG [[place] 10-325] 1 tab PO QID PRN #12 tab PRN Reason: Pain Losartan Potassium 50 mg PO DAILY Multivitamins, Thera [Multivitamin (formulary)] 1 tab PO DAILY Clotrimazole/Betamethasone Dip [Lotrisone Cream] 1 applic TOPICAL BID Sennosides-Docusate Sodium [Senokot-S] 2 tab PO HS #60 tablet Aspirin EC [Ecotrin Low Dose] 81 mg PO DAILY Atorvastatin [Lipitor] 40 mg PO DAILY DULoxetine HCL [Cymbalta] 60 mg PO DAILY Discontinued Furosemide [Lasix] 40 mg PO DAILY Potassium Chloride [Klor-Con 20] 20 meq PO DAILY Discharge Medication List Losartan Potassium 50 mg PO DAILY 05/06/21 [History] Memantine [Namenda] 5 mg PO BID 05/06/21 [History] Clotrimazole/Betamethasone Dip [Lotrisone Cream] 1 applic TOPICAL BID 06/25/21 [History] Cyanocobalamin (Vitamin B-12) [Vitamin B-12] 500 mcg PO DAILY 06/25/21 [History] Cyclobenzaprine [Flexeril] 10 mg PO HS PRN 06/25/21 [History] Multivitamins, Thera [Multivitamin (formulary)] 1 tab PO DAILY 06/25/21 [History] Thiamine [Vitamin B-1] 100 mg PO DAILY 06/25/21 [History] Sennosides-Docusate Sodium [Senokot-S] 2 tab PO HS #60 tablet 06/28/21 [Rx] Ammonium Lactate Lotion [Lac-Hydrin 12% Lotion] 1 applic TOPICAL BID 01/31/22 [History] Aspirin EC [Ecotrin Low Dose] 81 mg PO DAILY 01/31/22 [History] Atorvastatin [Lipitor] 40 mg PO DAILY 01/31/22 [History] DULoxetine HCL [Cymbalta] 60 mg PO DAILY 01/31/22 [History] Lactulose 10 gm PO BID 01/31/22 [History] Lidocaine 4% Patch 1 patch TOPICAL Q12H PRN 01/31/22 [History] Fluticasone Nasal [place] [Flonase Nasal [place]] 2 spray EA NOSTRIL DAILY ml 02/05/22 [Rx] HYDROcodone/APAP 10-325MG [[place] 10-325] 1 tab PO QID PRN #12 tab 02/05/22 [Rx] Ipratropium-Albuterol Nebulize [Duoneb 0.5 mg-3 mg/3 ml Soln] 3 ml INHALATION RT-QID each 02/05/22 [Rx] Loratadine [Claritin] 10 mg PO DAILY tab 02/05/22 [Rx] Pregabalin [Lyrica] 200 mg PO BID #6 cap 02/05/22 [Rx] Benzonatate [Tessalon Perles] 100 mg PO TID PRN #15 capsule 02/09/22 [Rx] Montelukast [Singulair] 10 mg PO HS #30 tab 02/09/22 [Rx] Pantoprazole [Protonix] 40 mg PO DAILY #30 tab 02/09/22 [Rx] Follow up Appointment(s)/Referral(s): Johnny Lane MD [Primary Care Provider] - 02/11/22 10:30 am (at [facility]) [facility], [NON-STAFF] - As Needed Patient Instructions/Handouts: Hyponatremia (DC) Discharge Disposition: HOME WITH HOME HEALTH SERVICES
[2022-02-08] MEDS: SENNOSIDES-DOCUSATE SODIUM 1 EACH TAB PO SCH (20:24)
[2022-02-08] MEDS: MONTELUKAST 10 MG TAB PO SCH (20:24)
[2022-02-09] MEDS: HYDROcodone/APAP 10-325MG 1 EACH TAB PO PRN ×2 (01:00→08:35)
[2022-02-09 07:44] VITALS: RESP 18
[2022-02-09] MEDS: IPRATROPIUM-ALBUTEROL 3 ML NEB INHALATION SCH ×2 (08:23→11:22)
[2022-02-09] MEDS: MEMANTINE 5 MG TAB PO SCH (08:35)
[2022-02-09] MEDS: THIAMINE 100 MG TAB PO SCH (08:35)
[2022-02-09] MEDS: PREGABALIN 100 MG CAP PO SCH (08:35)
[2022-02-09] MEDS: LOSARTAN 50 MG TAB PO SCH (08:35)
[2022-02-09] MEDS: ASPIRIN 81 MG PO SCH (08:35)
[2022-02-09] MEDS: ATORVASTATIN 40 MG TAB PO SCH (08:35)
[2022-02-09] MEDS: LEVOFLOXACIN 750 MG TAB PO SCH (08:35)
[2022-02-09] MEDS: CYANOCOBALAMIN 500 MCG TAB PO SCH (08:35)
[2022-02-09] MEDS: DULoxetine HCL 60 MG CAPSULE.DR PO SCH (08:35)
[2022-02-09] MEDS: LORATADINE 10 MG TAB PO SCH (08:35)
[2022-02-09] MEDS: MULTIVITAMINS, THERA 1 EACH TAB PO SCH (08:35)
[2022-02-09] MEDS: BENZONATATE 100 MG CAP PO SCH (08:36)
[2022-02-09] MEDS: LACTULOSE 20 GM/30 ML CUP PO SCH (08:36)
[2022-02-09] MEDS: ENOXAPARIN 40 MG/0.4 ML SYRINGE SQ SCH (08:36)
[2022-02-09] MEDS: AMMONIUM LACTATE 12% LOTION 225 GM BTL TOPICAL SCH (08:40)
[2022-02-09] MEDS: FLUTICASONE 50MCG/SPRAY NASAL 16GM EA NOSTRIL SCH (08:40)
[2022-02-09] MEDS: PANTOPRAZOLE 40 MG TABLET PO SCH (09:04)
--- NOTE | 2022-02-09 11:27 | P.PN ---
Subjective Progress Note Date: 02/08/22 HISTORY OF PRESENT ILLNESS: This is a 71-year-old male one of my patient with a previous medical history significant for hypertension and hypertensive cardiovascular disease, hyperlipidemia, obesity with obstructive sleep apnea, history of chronic alcohol use and dependence with the peripheral neuropathy, significant spondylosis of the lumbar spine with spinal stenosis and significant chronic low back pain. Patient states that 2 days ago he was sitting in a chair and he went to get up and his legs wouldn't move. He states he was unable to move for 2 days. No diarrhea. No alcohol intake. He states he has been urinating adequately. His daughter last visited him 2 days ago. Patient was brought into [facility] by EMS. Apparently was Adult Protective Services report done by EMS regarding cleanliness and safety at home. Patient was found to be afebrile, heart rate 80, blood pressure 138/73, pulse ox 90% on room air. WBC 14.7, hemoglobin 16.9, platelet count 318. Sodium 121, potassium 4.3, chloride 88, CO2 20, BUN 17 creatinine 0.7. Lactic acid 2.4 and repeat 1.8. Total bilirubin 1.7 otherwise liver function tests are normal. Troponin negative. Urinalysis 2+ ketones and small blood. Repeat sodium this morning is 121 and white count is down to 13. Chest x-ray reveals no acute cardio pulmonary process. Patient admitted to the MedSurg floor, consult requested with nephrology. 02/01: Patient complains of weakness in his legs, tender throat and cough. He has been seen by nephrology with recommendations for decreased IV fluids to 50 mL per hour, continue to hold Lasix, a 1200 mL fluid restriction and discontinue Toradol. Patient has been afebrile, heart rate 76, blood pressure 143/78, pulse ox 97% on room air. Cortisol level VII. ProBNP 191. TSH 2.4. Repeat sodium 126, potassium 4.5, chloride 102, CO2 20, BUN 13 and creatinine 0.71. Blood sugar 99. Patient is been seen by physical therapy with recommendations for subacute rehab but patient may be leaning towards going home instead. Social work is following. 02/02: Patient remains afebrile, heart rate 86, blood pressure 1 3479, pulse ox 96% on room air. Repeat blood work reveals sodium 131, potassium 4.4, chloride 99, CO2 22, BUN 10 and creatinine 0.8. Blood sugars 122. Nephrology has discontinue IV fluids, continue to hold Lasix, continue 1200 mL fluid restriction, encourage oral intake and repeat BMP and magnesium in 2-3 days post discharge and follow-up in one week. Patient has been cleared for discharge by nephrology with plan for repeat labs in 2-3 days and follow-up in one week. Patient continues to complain of cough and will be started on Claritin also states that he will not be able to go home until Monday due to the fact that he needs help set up at home. 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 02/03: Patient had temperature of 101.2 this morning at 2 AM. Heart rate 92, blood pressure 174/84, pulse ox 93% on room air. Urinalysis revealed blood large, leukoesterase trace, RBCs 42, diabetes 3. Repeat blood work today reveals sodium of 126, potassium 4.2, chloride 92, CO2 24, BUN 8.7, creatinine 0.7. Nephrology has ordered Samsca 7.5 mg once today. Chest x-ray completed but unable to open report due to system down time. Patient continues to complain of cough with sputum production. Patient started on Zosyn and Levaquin and consult added for Dr. Pete 02/04: patient is laying down in bed in no apparent distress, he continues to have some coughing, minimal from production, he denies any chest pain and some he continues to be little bit short of breath, he has no abdominal pain, nausea or vomiting, he continues to complain of pain in both lower extremities, he does not want to go to the extended care facility today, he would be seen in co nsultation by pulmonary medicine, his chest x-ray did not show any evidence of acute pneumonia, he was started on Levaquin 750 mg orally once every day, discontinue Zosyn, continue oral antibiotic for 5 days for possible acute bronchitis 02/05: Patient is laying down in bed in no apparent distress at this time, there is no prior authorization for the patient to be transferred to [facility], therefore patient will have to see over the weekend I spoke with porter sample case the orders that the patient can get out of the hospital is on Monday, maintain the patient on oral Levaquin 750 mg once every day, monitor the patient vital signs very closely, his sodium is up to 134, patient did receive only 1 dose of Samsca, nephrology is following continue the patient fluid restriction 1200 mL in 24 hours, continue and increase oral intake of protein discussed with the nurse to provide him with ensure Vanilla- flavored twice every day. 02/06: Patient is laying down in bed he continues to complain of increased dry cough, minimal from production, he continues to be on fluid restriction 1200 mL per 24 hours, he has been getting antibiotic, we'll start him on Tessalon Perles 100 mg orally 3 times every day, chest x-ray was clear, patient has been maintained on loratadine 10 mg orally once every day as well as Flonase as a spray for postnasal drip, we will add montelukast 10 mg at bedtime. Still awaiting [facility] 02[facility]07: Patient is laying down in bed in no apparent distress, he continues to have a minimal dry cough but he stated that it's better than yesterday, he was started yesterday on Tessalon Perles 100 mg orally 3 times every day, also started him on montelukast 10 mg at bedtime, follow-up with the patient in the next 24 hours, patient had refused fluid restriction I explained to the patient the importance of fluid restriction at this time otherwise his sodium will continue to drift down and that we'll delay his discharge. 02/08: Patient complains of pain in his legs which is chronic. He continues to have cough that seems to be improving. Patient has been afebrile, heart rate 76, blood pressure 113/79, pulse ox 96% on room air. Repeat CBC is unremarkable. Sodium is 134. Patient is waiting for insurance authorization for subacute rehab and discharge plan is to go to medical [facility] [place]. Patient will be discharged once all arrangements are completed. REVIEW OF SYSTEMS: Constitutional: +Documented fever, no chills, no night sweats. No weight change. positive for weakness , reports fatigue reports lethargy. Positive for daytime sleepiness. HEENT: No headache. No blurred vision or double vision, no loss of vision. No loss of Hearing, no ringing in the ears, no dizziness. No nasal drainage or congestion. No epistaxis. No sore throat. Lungs: No shortness of breath, reports cough, reports sputum production. No wheezing. Reports dyspnea with activity. Cardiovascular: No chest pain, positive for lower extremity edema. No palpitations. No paroxysmal nocturnal dyspnea. No orthopnea. No lightheadedness or dizziness. No syncopal episodes.Positive for nocturia. Abdominal: No abdominal pain. No nausea, vomiting. No diarrhea. No constipation. No bloody or tarry stools . No loss of appetite. Genitourinary: No dysuria, increased frequency, urgency. No urinary retention. Musculoskeletal: positive for neck pain, positive for chronic low back pain, positive for significant pain in both lower extremities with significant neuropathy, positive for gait dysfunction, positive for lower extremity weakness. Integumentary: No wounds, no lesions. No rash or pruritus. No unusual bruising. Does appear to have seborrheic dermatitis Neurologic: No aphasia. No facial droop. Memory loss. No head injury. No headache, positive for paresthesia in both lower extremities Psychiatric: Patient does appear to be somewhat depressed, appears to be a bit anxious, no suicidal thoughts or ideation. Endocrine: No abnormal blood sugars. PHYSICAL EXAMINATION: General: This is a 71-year-old male who is resting in bed and does not appear to be in acute distress. Occasional cough noted. HEENT: Head is atraumatic, normocephalic, pupils were equal round reactive to light and recommendation, extraocular muscle movement were intact, sclera non icteric, conjunctivae were pale, mucous membranes of the mouth are somewhat dry. Neck: Supple, no JVP, normal carotid upstroke bilaterally, no lymphadenopathy. Chest: Decreased breath sounds at the bases, few rhonchi, no expiratory wheezes, no chest wall tenderness, no intercostal retractions. Heart: First heart sound is normal, second heart sound is normal there is systolic ejection murmur 2/6 located in the left sternal border. Abdomen: Soft, nontender, nondistended, positive bowel sounds. Extremities: There is chronic significant venous stasis of both lower extremity with a chronic skin changes dorsalis pedis +1 bilaterally poor foot hygiene. Neurologic examination: Patient is awake alert and oriented X 3, cranial nerves II-12 appear grossly intact, muscle power were 4 out of 5 in upper extremities and 3out of 5 in bilateral lower extremities. ASSESSMENT AND PLAN: 1. Hyponatremia secondary to to hypovolemia . Samsca 7.5 mg 1, fluid restriction of 1200 mL, continue to hold Lasix, Nephrology consult appreciated. sodium level 134, increase protein intake 2. Lactic acidosis, resolved. 3. acute bronchitis. Chest x-ray has been completed,no evidence of pulmonary infiltrate, continue Levaquin 750 mg orally once every day, add Tessalon Perles 100 mg orally 2 times every day and montelukast 10 mg of the time. 4. Hypertension and hypertensive cardiovascular disease. on losartan 50 mg orally once every day. 5. Hyperlipidemia. Continue atorvastatin 40 mg daily. 6. Vascular dementia. We will continue Namenda 5 mg po bid 7. Chronic alcohol use and dependence. Patient states he has been abstaining from alcohol. No need for CIWA protocol. 8. 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 Continue [place] 10/325 mg 1 tablet every 6 hours as needed. 9. Bilateral lower extremity neuropathy continue patient on Lyrica 200 mg orally twice every day. 10. Depression. Continue patient on Cymbalta 60 mg orally once every day. 11. DVT prophylaxis. Continue Lovenox 40 mg subcutaneously every 24 hours. 12. GI prophylaxis. Continue Protonix 40 mg orally once every day. Patient is full code. DISCHARGE PLAN Subacute rehab at [facility] on Monday. Impression and plan of care have been directed as dictated by the signing physician. Suzan Willingham nurse practitioner acting as scribe for signing physician. Objective - Vital Signs Vital signs: Vital Signs Temp 98.1 F 02/09/22 07:44 Pulse 74 02/09/22 07:44 Resp 18 02/09/22 07:44 BP 138/89 02/09/22 07:44 Pulse Ox 96 02/09/22 07:44 FiO2 Intake & Output 02/08/22 02/09/22 02/09/22 18:59 06:59 18:59 Intake Total 615 Output Total 350 Balance 265 Weight 136.078 kg Intake: Oral 615 Output: Urine 350 Other: Voiding Method Urinal Urinal Urinal # Voids 3 1 - Labs CBC & Chem 7: 02/08/22 05:41 02/08/22 05:41 Labs: Microbiology - Last 24 Hours (Table) 02/03/22 04:22 Blood Culture - Final Blood No Growth after 144 hours 02/03/22 04:00 Blood Culture - Final Blood No Growth after 144 hours
[2022-02-09 13:58] VITALS: BP 161/82; PULSE 68; TEMP 98.4
== END 2022-02-09 16:21 | disposition home health service (06) | DRG 641 ==
LOC: EC 19:31 → 4SSUR 23:24
PROVIDERS: ADMIT Internal Medicine; ATTEND Internal Medicine
DX: E87.1 Hypo-osmolality and hyponatremia (principal); E86.1 Hypovolemia; E03.9 Hypothyroidism, unspecified; E78.5 Hyperlipidemia, unspecified; E87.2 Acidosis; E87.70 Fluid overload, unspecified; F01.50 Vascular dementia, unspecified severity, without behavioral disturbance, psychotic disturbance, mood disturbance, and anxiety; F10.20 Alcohol dependence, uncomplicated; F32.A Depression, unspecified; E66.9 Obesity, unspecified; Z68.39 Body mass index [BMI] 39.0-39.9, adult; M48.02 Spinal stenosis, cervical region; G47.33 Obstructive sleep apnea (adult) (pediatric); M47.816 Spondylosis without myelopathy or radiculopathy, lumbar region; G25.81 Restless legs syndrome; G62.9 Polyneuropathy, unspecified; G89.4 Chronic pain syndrome; I89.0 Lymphedema, not elsewhere classified; I11.9 Hypertensive heart disease without heart failure; I87.8 Other specified disorders of veins; J20.9 Acute bronchitis, unspecified; M47.812 Spondylosis without myelopathy or radiculopathy, cervical region; N40.0 Benign prostatic hyperplasia without lower urinary tract symptoms; T73.0XXA Starvation, initial encounter; Z79.82 Long term (current) use of aspirin; Z79.899 Other long term (current) drug therapy; Z80.1 Family history of malignant neoplasm of trachea, bronchus and lung; Z82.49 Family history of ischemic heart disease and other diseases of the circulatory system; Z90.89 Acquired absence of other organs; Z98.890 Other specified postprocedural states; Z91.81 History of falling; Z87.828 Personal history of other (healed) physical injury and trauma; Z84.89 Family history of other specified conditions; Z83.49 Family history of other endocrine, nutritional and metabolic diseases; Z60.2 Problems related to living alone; Z79.891 Long term (current) use of opiate analgesic
CPT/HCPCS: 36415; 71045; 71046; 80048; 80053; 81001; 82533; 83519; 83605; 83735; 83880; 83930; 83935; 84295; 84300; 84443; 84484; 84550; 85025; 85610; 85730; 87040; 93005

== ENCOUNTER 2023-04-24 18:13 | Inpatient (IN) | payer MEDICARE, OTHER ==
--- NOTE | 2023-04-24 19:15 | ED ---
Lower Extremity Injury HPI - General Chief Complaint: Extremity Injury, Lower Stated Complaint: Fall, Wound on R Leg,Pain in Both Legs Time Seen by Provider: 04/24/23 18:56 Source: patient, RN notes reviewed, old records reviewed Mode of arrival: ambulatory Limitations: no limitations - History of Present Illness Initial Comments: This is a 72-year-old male here today. Presents today for evaluation of injury injury to lower extremity right lower extremity with recent vomitus surrounding redness and erythema swelling and cellulitis, recent developing a fever. Patient currently does not feel well, weak lightheaded and dizzy at times with significant pain in the legs. Increased cough and congestion wound on right hanks from significant fall MD Complaint: leg injury -: days(s) Type of Injury: blunt Place: home Severity: moderate Severity scale (1-10): 4 Worsens With: nothing Context: direct blow Associated Symptoms: swelling Treatments Prior to Arrival: other (0) - Related Data Home Medications Medication Instructions Recorded Confirmed Losartan Potassium 50 mg PO DAILY 05/06/21 04/24/23 Atorvastatin [Lipitor] 40 mg PO DAILY 01/31/22 04/24/23 DULoxetine HCL [Cymbalta] 60 mg PO DAILY 01/31/22 04/24/23 Baclofen 10 mg PO BID PRN 04/24/23 04/24/23 Cholecalciferol [Vitamin D3 (25 50 mcg PO DAILY 04/24/23 04/24/23 Mcg = 1000 Iu)] Furosemide [Lasix] 40 mg PO DAILY 04/24/23 04/24/23 Memantine [Namenda] 10 mg PO BID 04/24/23 04/24/23 amLODIPine [Norvasc] 5 mg PO DAILY 04/24/23 04/24/23 Previous Rx's Medication Instructions Recorded HYDROcodone/APAP 10-325MG [[place] 1 tab PO Q4H PRN #18 tab 04/28/23 10-325] Nystatin 100,000 Unit/gm Oint 1 applic TOPICAL BID each 04/28/23 [Mycostatin Oint] Nystatin 100,000 Unit/gm Powd 1 applic TOPICAL BID each 04/28/23 [Mycostatin Powder] Pantoprazole [Protonix] 40 mg PO AC-BRKFST tab 04/28/23 Pregabalin [Lyrica] 200 mg PO BID #6 cap 04/28/23 Thiamine [Vitamin B-1] 100 mg PO DAILY tab 04/28/23 Triamcinolone 0.1% Ointment 1 applic TOPICAL BID each 04/28/23 [Kenalog 0.1% Ointment] fentaNYL 12MCG/HR PATCH [Duragesic 1 patch TRANSDERM Q72H #1 patch 04/28/23 12MCG/HR] Allergies Allergy/AdvReac Type Severity Reaction Status Date / Time No Known Allergies Allergy Verified 04/24/23 22:18 Review of Systems ROS Statement: Those systems with pertinent positive or pertinent negative responses have been documented in the HPI. ROS Other: All systems not noted in ROS Statement are negative. Past Medical History Past Medical History: Hypertension, Osteoarthritis (OA) Additional Past Medical History / Comment(s): ETOH abuse, chronic back pain, BLE neuropathy, lymphedema, multiple falls History of Any Multi-Drug Resistant Organisms: None Reported Past Surgical History: Back Surgery, Orthopedic Surgery, Tonsillectomy Additional Past Surgical History / Comment(s): 3 back laminectomies, hand surgery s/p trauma to reattatch tendons Past Anesthesia/Blood Transfusion Reactions: No Reported Reaction Past Psychological History: No Psychological Hx Reported Smoking Status: Never smoker Past Alcohol Use History: Daily Past Drug Use History: None Reported - Past Family History Father Family Medical History: Hypertension Mother Family Medical History: Cancer Additional Family Medical History / Comment(s): Lung cancer Brother(s) Family Medical History: No Reported History Sister(s) Family Medical History: Hypertension Daughter(s) Family Medical History: No Reported History General Exam Limitations: no limitations General appearance: alert, in no apparent distress Head exam: Present: atraumatic, normocephalic, normal inspection Eye exam: Present: normal appearance, PERRL, EOMI. Absent: scleral icterus, conjunctival injection, periorbital swelling ENT exam: Present: normal exam, mucous membranes moist Neck exam: Present: normal inspection. Absent: tenderness, meningismus, lymphad enopathy Respiratory exam: Present: normal lung sounds bilaterally. Absent: respiratory distress, wheezes, rales, rhonchi, stridor Cardiovascular Exam: Present: regular rate, normal rhythm, normal heart sounds. Absent: systolic murmur, diastolic murmur, rubs, gallop, clicks GI/Abdominal exam: Present: soft, normal bowel sounds. Absent: distended, tenderness, guarding, rebound, rigid Extremities exam: Present: normal inspection, full ROM, tenderness, normal capillary refill, other (Lower Extremity swelling redness and erythema). Absent: pedal edema, joint swelling, calf tenderness Back exam: Present: normal inspection Neurological exam: Present: alert, oriented X3, CN II-XII intact Psychiatric exam: Present: normal affect, normal mood Skin exam: Present: warm, dry, intact, normal color. Absent: rash Course Vital Signs 04/24/23 04/24/23 04/24/23 18:33 22:00 22:01 Temperature 98.8 F Pulse Rate 93 80 Pulse Rate [ Pulse Oximetery ] Respiratory 18 20 22 Rate Blood Pressure 137/76 129/73 129/73 Blood Pressure [Right Arm] O2 Sat by Pulse 100 97 93 L Oximetry 04/24/23 04/25/23 04/25/23 23:00 00:00 01:00 Temperature Pulse Rate 94 91 87 Pulse Rate [ Pulse Oximetery ] Respiratory 16 14 22 Rate Blood Pressure 137/106 126/56 127/73 Blood Pressure [Right Arm] O2 Sat by Pulse Oximetry 04/25/23 04/25/23 04/25/23 02:00 03:00 04:00 Temperature Pulse Rate 83 114 H 99 Pulse Rate [ Pulse Oximetery ] Respiratory 18 18 18 Rate Blood Pressure 121/66 124/73 101/82 Blood Pressure [Right Arm] O2 Sat by Pulse 95 94 L 95 Oximetry 04/25/23 04/25/23 04/25/23 06:00 09:04 13:32 Temperature Pulse Rate 98 77 85 Pulse Rate [ Pulse Oximetery ] Respiratory 18 20 20 Rate Blood Pressure 155/70 145/69 116/85 Blood Pressure [Right Arm] O2 Sat by Pulse 94 L 100 99 Oximetry 04/25/23 04/25/23 15:06 15:13 Temperature 98.0 F 98.8 F Pulse Rate 66 Pulse Rate [ 83 Pulse Oximetery ] Respiratory 17 20 Rate Blood Pressure 111/67 Blood Pressure 112/62 [Right Arm] O2 Sat by Pulse 99 99 Oximetry - Reevaluation(s) Reevaluation #1: 04/24/23 19:14 Medical record is reviewed Reevaluation #2: 04/24/23 22:11 Patient symptoms unchanged here in the ER Reevaluation #3: 04/24/23 22:11 Patient informed of results questions answered Reevaluation #4: 04/24/23 19:14 Was pt. sent in by a medical professional or institution ([facility], [facility], urgent care, hospital, or snf...) When possible be specific @ -no Did you speak to anyone other than the patient for history (EMS, parent, family, police, friend...)? What history was obtained from this source @ -no Did you review nursing and triage notes (agree or disagree)? Why? @ -agree Are old charts reviewed (outside hosp., previous admission, EMS record, old EKG, old radiological studies, urgent care reports/EKG's, snf records)? Report findings @ -yes Differential Diagnosis (chest pain, altered mental status, abdominal pain women, abdominal pain men, vaginal bleeding, weakness, fever, dyspnea, syncope, headache, dizziness, GI bleed, back pain, seizure, CVA, palpatations, mental health, musculoskeletal)? @ -prior EKG interpreted by me (3pts min.). @ -yes X-rays interpreted by me (1pt min.). @ -yes CT interpreted by me (1pt min.). @ -no U/S interpreted by me (1pt. min.). @ -no What testing was considered but not performed or refused? (CT, X-rays, U/S, labs)? Why? @ -none What meds were considered but not given or refused? Why? @ -none Did you discuss the management of the patient with other professionals (professionals i.e. [facility], [employer], lab, RT, psych nurse, social worker aide, data coder operator, teacher, chief quality officer, insurance case manager)? Give summary @ -no Was smoking cessation discussed for >3mins.? @ -no Was critical care preformed (if so, how long)? @ -no Were there social determinants of health that impacted care today? How? (Homelessness, low income, unemployed, alcoholism, drug addiction, transportation, low edu. Level, literacy, decrease access to med. care, care home, rehab)? @ -none Was there de-escalation of care discussed even if they declined (Discuss DNR or withdrawal of care, Hospice)? DNR status @ -no What co-morbidities impacted this encounter? (DM, HTN, Smoking, COPD, CAD, Cancer, CVA, ARF, Chemo, Hep., AIDS, mental health diagnosis, sleep apnea, morbid obesity)? @ -none Was patient admitted / discharged? Hospital course, mention meds given and route, prescriptions, significant lab abnormalities, going to OR and other pertinent info. @ - 72 male to the emergency department today for evaluation of some shortness of breath, patient is a shaking in the ER not complaining of pain back pain bilateral lower extremity pain severe some mild cellulitis the right lower extremity. Elevated white count patient be admitted for IV antibiotics and pain control Discharged Undiagnosed new problem with uncertain prognosis? @ -no Drug Therapy requiring intensive monitoring for toxicity (Heparin, Nitro, Insulin, Cardizem)? @ -no Were any procedures done? @ -no Diagnosis/symptom? @ -Bilateral lower extremity cellulitis, weakness Acute, or Chronic, or Acute on Chronic? @ -Acute Uncomplicated (without systemic symptoms) or Complicated (systemic symptoms)? @ -Complicated Side effects of treatment? @ -no Exacerbation, Progression, or Severe Exacerbation? @ -exacerbation Poses a threat to life or bodily function? How? (Chest pain, [place], [place], pneumonia, PE, COPD, DKA, ARF, appy, cholecystitis, CVA, Diverticulitis, Homicidal, Suicidal, threat to staff... and all critical care pts) @ -yes if progression to sepsis Reevaluation #5: 04/24/23 19:15 Differential Fever: Pneumonia, viral URI, endocarditis, myocarditis, pericarditis, otitis, sinusitis, peritonsillar Abscess, retropharyngeal Abscess, epiglottitis, peritonitis, appendicitis, Leslie cystitis, diverticulitis, hepatitis, colitis, UTI, PID, TOA, pyelonephritis, prostatitis, epididymitis, meningitis, encephalitis, pulmonary embolism, CVA, thyroid storm, pancreatitis, adrenal crisis, cavernous sinus thrombosis, this is not meant to be an all-inclusive list. - Consultations Consultation #1: Spoke with Dr. Lane who agrees to admit the patient Medical Decision Making - Medical Decision Making 72 male to the emergency department today for evaluation of some shortness of breath, patient is a shaking in the ER not complaining of pain back pain bilateral lower extremity pain severe some mild cellulitis the right lower extremity. Elevated white count patient be admitted for IV antibiotics and pain control - Lab Data Result diagrams: 04/29/23 04:25 04/28/23 14:15 Lab Results 04/24/23 04/24/23 04/24/23 Range/Units 20:41 20:41 20:41 WBC 14.2 H (3.8-10.6) k/uL RBC 4.30 (4.30-5.90) m/uL Hgb 13.8 (13.0-17.5) gm/dL Hct 40.3 (39.0-53.0) % MCV 93.6 (80.0-100.0) fL MCH 32.2 (25.0-35.0) pg MCHC 34.4 (31.0-37.0) g/dL RDW 14.9 (11.5-15.5) % Plt Count 244 (150-450) k/uL MPV 7.4 Neutrophils % 84 % Lymphocytes % 9 % Monocytes % 5 % Eosinophils % 0 % Basophils % 1 % Neutrophils # 11.9 H (1.3-7.7) k/uL Lymphocytes # 1.3 (1.0-4.8) k/uL Monocytes # 0.8 (0-1.0) k/uL Eosinophils # 0.0 (0-0.7) k/uL Basophils # 0.1 (0-0.2) k/uL PT 10.1 (9.0-12.0) sec INR 1.0 (<1.2) APTT 23.0 (22.0-30.0) sec Sodium 127 L (137-145) mmol/L Potassium 3.7 (3.5-5.1) mmol/L Chloride 95 L (98-107) mmol/L Carbon Dioxide 23 (22-30) mmol/L Anion Gap 9 mmol/L BUN 8 L (9-20) mg/dL Creatinine 0.59 L (0.66-1.25) mg/dL Est GFR (CKD-EPI)AfAm >90 (>60 ml/min/1.73 sqM) Est GFR (CKD-EPI)NonAf >90 (>60 ml/min/1.73 sqM) Glucose 133 H (74-99) mg/dL Lactic Ac Sepsis Rflx Plasma Lactic Acid Gerardo (0.7-2.0) mmol/L Calcium 8.6 (8.4-10.2) mg/dL Phosphorus 2.2 L (2.5-4.5) mg/dL Magnesium 1.9 (1.6-2.3) mg/dL Total Bilirubin 0.9 (0.2-1.3) mg/dL AST 29 (17-59) U/L ALT 18 (4-49) U/L Alkaline Phosphatase 70 (38-126) U/L Troponin I (0.000-0.034) ng/mL Total Protein 5.9 L (6.3-8.2) g/dL Albumin 3.2 L (3.5-5.0) g/dL Urine Color Urine Appearance (Clear) Urine pH (5.0-8.0) Ur Specific [place] (1.001-1.035) Urine Protein (Negative) Urine Glucose (UA) (Negative) Urine Ketones (Negative) Urine Blood (Negative) Urine Nitrite (Negative) Urine Bilirubin (Negative) Urine Urobilinogen (<2.0) mg/dL Ur Leukocyte Esterase (Negative) 04/24/23 04/24/23 04/24/23 Range/Units 20:41 20:41 21:32 WBC (3.8-10.6) k/uL RBC (4.30-5.90) m/uL Hgb (13.0-17.5) gm/dL Hct (39.0-53.0) % MCV (80.0-100.0) fL MCH (25.0-35.0) pg MCHC (31.0-37.0) g/dL RDW (11.5-15.5) % Plt Count (150-450) k/uL MPV Neutrophils % % Lymphocytes % % Monocytes % % Eosinophils % % Basophils % % Neutrophils # (1.3-7.7) k/uL Lymphocytes # (1.0-4.8) k/uL Monocytes # (0-1.0) k/uL Eosinophils # (0-0.7) k/uL Basophils # (0-0.2) k/uL PT (9.0-12.0) sec INR (<1.2) APTT (22.0-30.0) sec Sodium (137-145) mmol/L Potassium (3.5-5.1) mmol/L Chloride (98-107) mmol/L Carbon Dioxide (22-30) mmol/L Anion Gap mmol/L BUN (9-20) mg/dL Creatinine (0.66-1.25) mg/dL Est GFR (CKD-EPI)AfAm (>60 ml/min/1.73 sqM) Est GFR (CKD-EPI)NonAf (>60 ml/min/1.73 sqM) Glucose (74-99) mg/dL Lactic Ac Sepsis Rflx Plasma Lactic Acid Gerardo 3.2 H* (0.7-2.0) mmol/L Calcium (8.4-10.2) mg/dL Phosphorus (2.5-4.5) mg/dL Magnesium (1.6-2.3) mg/dL Total Bilirubin (0.2-1.3) mg/dL AST (17-59) U/L ALT (4-49) U/L Alkaline Phosphatase (38-126) U/L Troponin I 0.024 (0.000-0.034) ng/mL Total Protein (6.3-8.2) g/dL Albumin (3.5-5.0) g/dL Urine Color Yellow Urine Appearance Clear (Clear) Urine pH 6.5 (5.0-8.0) Ur Specific [place] 1.010 (1.001-1.035) Urine Protein Negative (Negative) Urine Glucose (UA) Negative (Negative) Urine Ketones Negative (Negative) Urine Blood Negative (Negative) Urine Nitrite Negative (Negative) Urine Bilirubin Negative (Negative) Urine Urobilinogen 2.0 (<2.0) mg/dL Ur Leukocyte Esterase Negative (Negative) 04/24/23 Range/Units 21:33 WBC (3.8-10.6) k/uL RBC (4.30-5.90) m/uL Hgb (13.0-17.5) gm/dL Hct (39.0-53.0) % MCV (80.0-100.0) fL MCH (25.0-35.0) pg MCHC (31.0-37.0) g/dL RDW (11.5-15.5) % Plt Count (150-450) k/uL MPV Neutrophils % % Lymphocytes % % Monocytes % % Eosinophils % % Basophils % % Neutrophils # (1.3-7.7) k/uL Lymphocytes # (1.0-4.8) k/uL Monocytes # (0-1.0) k/uL Eosinophils # (0-0.7) k/uL Basophils # (0-0.2) k/uL PT (9.0-12.0) sec INR (<1.2) APTT (22.0-30.0) sec Sodium (137-145) mmol/L Potassium (3.5-5.1) mmol/L Chloride (98-107) mmol/L Carbon Dioxide (22-30) mmol/L Anion Gap mmol/L BUN (9-20) mg/dL Creatinine (0.66-1.25) mg/dL Est GFR (CKD-EPI)AfAm (>60 ml/min/1.73 sqM) Est GFR (CKD-EPI)NonAf (>60 ml/min/1.73 sqM) Glucose (74-99) mg/dL Lactic Ac Sepsis Rflx Y Plasma Lactic Acid Ger[place] (0.7-2.0) mmol/L Calcium (8.4-10.2) mg/dL Phosphorus (2.5-4.5) mg/dL Magnesium (1.6-2.3) mg/dL Total Bilirubin (0.2-1.3) mg/dL AST (17-59) U/L ALT (4-49) U/L Alkaline Phosphatase (38-126) U/L Troponin I (0.000-0.034) ng/mL Total Protein (6.3-8.2) g/dL Albumin (3.5-5.0) g/dL Urine Color Urine Appearance (Clear) Urine pH (5.0-8.0) Ur Specific [place] (1.001-1.035) Urine Protein (Negative) Urine Glucose (UA) (Negative) Urine Ketones (Negative) Urine Blood (Negative) Urine Nitrite (Negative) Urine Bilirubin (Negative) Urine Urobilinogen (<2.0) mg/dL Ur Leukocyte Esterase (Negative) - EKG Data -: EKG Interpreted by Me (EKG is sinus 84 PA 188 QRS 95 QTc 413) - Radiology Data Radiology results: report reviewed (Chest x-ray), image reviewed Disposition Clinical Impression: Hyponatremia, Acute kidney injury, Venous stasis dermatitis of both lower extremities, Weakness, Venous hypertension of both lower extremities, Leg pain, Cellulitis of right leg Disposition: ADMITTED IP TO THIS HOSP Condition: Fair Is patient prescribed a controlled substance at d/c from ED?: No Time of Disposition: 22:10
[2023-04-24] MEDS ORDERED: HYDROmorphone 1 MG/ML 1 ML SYRINGE IVP STA (20:21)
[2023-04-24] MEDS ORDERED: SODIUM CHLORIDE 0.9% 1,000 ML IV STA (20:21)
[2023-04-24 21:02] LABS: Basophils # (A) 0.1 k/uL (0-0.2); Basophils % (A) 1 %; Eosinophils % (A) 0 %; HCT 40.3 % (39.0-53.0); HGB 13.8 gm/dL (13.0-17.5); Lymphocytes # (A) 1.3 k/uL (1.0-4.8); Lymphocytes % (A) 9 %; MCH 32.2 pg (25.0-35.0); MCHC 34.4 g/dL (31.0-37.0); MCV 93.6 fL (80.0-100.0); Mean Platelet Volume 7.4; Monocytes # (A) 0.8 k/uL (0-1.0); Monocytes % (A) 5 %; Neutrophils # (A) 11.9 k/uL (1.3-7.7); Neutrophils % (A) 84 %; Platelet Count 244 k/uL (150-450); RDW 14.9 % (11.5-15.5); WBC 14.2 k/uL (3.8-10.6)
[2023-04-24 21:12] LABS: Prothrombin Time 10.1 sec (9.0-12.0)
[2023-04-24 21:21] LABS: ALT 18 U/L (4-49); AST 29 U/L (17-59); African American GFR (CKD) >90 (>60 ml/min/1.73 sqM); Albumin 3.2 g/dL (3.5-5.0); Alkaline Phosphatase 70 U/L (38-126); Anion Gap 9 mmol/L; Blood Urea Nitrogen 8 mg/dL (9-20); Calcium 8.6 mg/dL (8.4-10.2); Carbon Dioxide 23 mmol/L (22-30); Chloride 95 mmol/L (98-107); Glucose 133 mg/dL (74-99); Magnesium 1.9 mg/dL (1.6-2.3); Non-African American GFR(CKD) >90 (>60 ml/min/1.73 sqM); Phosphorus 2.2 mg/dL (2.5-4.5); Potassium 3.7 mmol/L (3.5-5.1); Sodium 127 mmol/L (137-145); Total Bilirubin 0.9 mg/dL (0.2-1.3); Total Protein 5.9 g/dL (6.3-8.2)
[2023-04-24 21:58] LABS: Appearance,Urine Clear (Clear); Bilirubin,Urine Negative (Negative); Blood,Urine Negative (Negative); Color,Urine Yellow; Glucose,Urine (UA) Negative (Negative); Ketones,Urine Negative (Negative); Leukocyte Esterase,Urine Negative (Negative); Nitrite,Urine Negative (Negative); PH, Urine 6.5 (5.0-8.0); Protein,Urine Negative (Negative)
[2023-04-24] MEDS ORDERED: ONDANSETRON 4 MG/2 ML VIAL IVP PRN (22:10)
[2023-04-24] MEDS ORDERED: NALOXONE 0.4 MG/ML 1 ML VIAL IV PRN (22:10)
[2023-04-24] MEDS ORDERED: LORazepam 2 MG/ML INJ IV PRN ×3 (22:14)
[2023-04-24] MEDS ORDERED: THIAMINE 100 MG/ML 2 ML VIAL IM STA (22:14)
[2023-04-24] MEDS: HYDROmorphone 1 MG/ML 1 ML SYRINGE IVP PRN (22:23)
--- NOTE | 2023-04-24 23:11 | XR ---
EXAM: XR Chest, 1 View CLINICAL HISTORY: ITS.REASON XR Reason: sob TECHNIQUE: Frontal view of the chest. COMPARISON: 02/03/2022. FINDINGS: Lungs: Unremarkable. No consolidative changes. Pleural space: Unremarkable. No pneumothorax. No pleural effusions. Heart: Unremarkable. No cardiomegaly. Mediastinum: Cardiomediastinal silhouette unremarkable. 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 IMPRESSION: No active disease.
[2023-04-25] MEDS ORDERED: HYDROmorphone 1 MG/ML 1 ML SYRINGE IVP STA (00:49)
[2023-04-25] MEDS ORDERED: diphenhydrAMINE 50 MG/ML 1 ML VIAL IVP STA (00:50)
[2023-04-25] MEDS ORDERED: HYDROcodone/APAP 10-325MG 1 EACH TAB PO ONE (01:17)
[2023-04-25] MEDS: NYSTATIN 100,000 UNIT/GM POWD 15 GM TOPICAL SCH ×3 (02:27→21:05)
[2023-04-25 03:46] LABS: Basophils % (A) 0 %; Eosinophils # (A) 0.1 k/uL (0-0.7); Eosinophils % (A) 1 %; HCT 40.3 % (39.0-53.0); HGB 13.6 gm/dL (13.0-17.5); Lymphocytes # (A) 1.5 k/uL (1.0-4.8); Lymphocytes % (A) 11 %; MCH 31.9 pg (25.0-35.0); MCHC 33.8 g/dL (31.0-37.0); MCV 94.2 fL (80.0-100.0); Monocytes # (A) 0.8 k/uL (0-1.0); Monocytes % (A) 6 %; Neutrophils # (A) 10.5 k/uL (1.3-7.7); Neutrophils % (A) 81 %; Platelet Count 244 k/uL (150-450); RBC 4.28 m/uL (4.30-5.90); RDW 14.9 % (11.5-15.5); WBC 13.1 k/uL (3.8-10.6)
[2023-04-25 04:09] LABS: ALT 17 U/L (4-49); AST 27 U/L (17-59); African American GFR (CKD) >90 (>60 ml/min/1.73 sqM); Albumin 3.3 g/dL (3.5-5.0); Alkaline Phosphatase 91 U/L (38-126); Anion Gap 7 mmol/L; Blood Urea Nitrogen 11 mg/dL (9-20); Calcium 8.7 mg/dL (8.4-10.2); Carbon Dioxide 24 mmol/L (22-30); Chloride 96 mmol/L (98-107); Glucose 143 mg/dL (74-99); Magnesium 1.9 mg/dL (1.6-2.3); Non-African American GFR(CKD) >90 (>60 ml/min/1.73 sqM); Potassium 3.8 mmol/L (3.5-5.1); Sodium 127 mmol/L (137-145); Total Bilirubin 1.1 mg/dL (0.2-1.3)
[2023-04-25] MEDS: HYDROcodone/APAP 10-325MG 1 EACH TAB PO PRN ×4 (05:09→20:03)
[2023-04-25] MEDS ORDERED: BACLOFEN 10 MG TAB PO PRN (09:00)
[2023-04-25] MEDS ORDERED: NYSTATIN 100,000 UNIT/GM POWD 15 GM TOPICAL SCH (09:00)
[2023-04-25] MEDS: THIAMINE 100 MG TAB PO SCH (09:05)
[2023-04-25] MEDS: amLODIPine 5 MG TAB PO SCH (09:05)
[2023-04-25] MEDS: MEMANTINE 10 MG TAB PO SCH ×2 (09:06→20:04)
[2023-04-25] MEDS: LOSARTAN 50 MG TAB PO SCH (09:06)
[2023-04-25] MEDS: DULoxetine HCL 60 MG CAPSULE.DR PO SCH (09:06)
[2023-04-25] MEDS: PREGABALIN 100 MG CAP PO SCH ×2 (09:06→20:03)
[2023-04-25] MEDS: CHOLECALCIFEROL 25 MCG (1000 IU) TABLET PO SCH (09:06)
[2023-04-25] MEDS: ATORVASTATIN 40 MG TAB PO SCH (09:06)
[2023-04-25] MEDS: ENOXAPARIN 40 MG/0.4 ML SYRINGE SQ SCH (13:34)
[2023-04-25] MEDS ORDERED: SODIUM CHLORIDE 0.9% 1,000 ML IV SCH (14:30)
--- NOTE | 2023-04-25 14:32 | P.HPIM ---
History of Present Illness H&P Date: 04/25/23 HISTORY OF PRESENT ILLNESS: This is a 72-year-old male one of my patient with a previous medical history significant for hypertension and hypertensive cardiovascular disease, hyperlipidemia, obesity with obstructive sleep apnea, history of chronic alcohol use and dependence with the peripheral neuropathy, significant spondylosis of the lumbar spine with spinal stenosis and significant chronic low back pain. Patient's last hospitalization was for hyponatremia, lactic acidosis, bronchi tis. Patient was discharged home with home care. Patient presented to the emergency center due to right lower extremity wound with redness, swelling, fever and concern for cellulitis. Patient was found to be afebrile with stable vital signs. WBC was 14.2. Sodium 127, BUN 8 and creatinine 0.59. Blood sugar was 133. Troponin was negative 1 urinalysis was negative for infection. BUN was 8 and creatinine 0.59. Magnesium 1.9. Phosphorus 2.2. Chest x-ray reveals no active disease. Patient admitted to the [facility] floor, consult requested withinfectious disease, wound center, started on IV ceftriaxone. Blood cultures are status received.. REVIEW OF SYSTEMS: Constitutional: No documented fever, no chills, no night sweats. No weight change. positive for weakness , reports fatigue reports lethargy. Positive for daytime sleepiness. HEENT: No headache. No blurred vision or double vision, no loss of vision. No loss of Hearing, no ringing in the ears, no dizziness. No nasal drainage or congestion. No epistaxis. No sore throat. Lungs: No shortness of breath, no cough, no sputum production. No wheezing. Reports dyspnea with activity. Cardiovascular: No chest pain, positive for lower extremity edema. No palpitations. No paroxysmal nocturnal dyspnea. No orthopnea. No lightheadedness or dizziness. No syncopal episodes.Positive for nocturia. Abdominal: No abdominal pain. No nausea, vomiting. No diarrhea. No constipation. No bloody or tarry stools . No loss of appetite. Genitourinary: No dysuria, increased frequency, urgency. No urinary retention. Musculoskeletal: positive for neck pain, positive for chronic low back pain, positive for significant pain in both lower extremities with significant neuropathy, positive for gait dysfunction, positive for lower extremity weakness. Integumentary: Positive for venous ulcerations of right lower extremity , no lesions. No rash or pruritus. No unusual bruising. Does appear to have seborrheic dermatitis Neurologic: No aphasia. No facial droop. Memory loss. No head injury. No headache, positive for paresthesia in both lower extremities Psychiatric: Patient does appear to be somewhat depressed, appears to be a bit anxious, no suicidal thoughts or ideation. Endocrine: No abnormal blood sugars, increased weight. PAST MEDICAL HISTORY: 1. Hypertension and hypertensive cardiovascular disease. 2. Hyperlipidemia. 3. Hypothyroidism. 4. Chronic venous stasis with stasis dermatitis. 5. Chronic alcohol use and dependence. 6. Obstructive sleep apnea. 7. Peripheral neuropathy. 8. Vascular dementia. 9. Enlarged prostate. 10. 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 11. Restless leg syndrome. PAST SURGICAL HISTORY: 1. Laminectomies in the lumbar spine 3. 2. Tonsillectomy. 3. Hand surgery with tendon repair. SOCIAL HISTORY: Patient denies a history of smoking, he drinks about 3 beers every other day, he used to drink a lot heavier than that, he denies any drug use or abuse, he denies any marijuana use and lives along, he has a daughter who comes a check on him, only on the weekend. FAMILY HISTORY: Father at age 93 from old age. History of hypertension and myocardial infarction, mother at age of 84 from lung cancer and she was heavy smoker, patient has 2 brothers one of them is super morbid obesity and other one is oka y, patient has 2 sisters one of them is 63-year-old with history of venous stasis, the other one is fine, patient has a daughter with no major medical problems 35-year-old. PHYSICAL EXAMINATION: General: This is a 72-year-old male who is resting in bed and does not appear to be in acute distress. HEENT: Head is atraumatic, normocephalic, pupils were equal round reactive to light and recommendation, extraocular muscle movement were intact, sclera nonicteric, conjunctivae were pale, mucous membranes of the mouth are somewhat dry. Neck: Supple, no JVP, normal carotid upstroke bilaterally, no lymphadenopathy. Chest: Decreased breath sounds at the bases, few rhonchi, no expiratory wheezes, no chest wall tenderness, no intercostal retractions. Heart: First heart sound is normal, second heart sound is normal there is systolic ejection murmur 2/6 located in the left sternal border. Abdomen: Soft, nontender, nondistended, positive bowel sounds. Extremities: There is chronic significant venous stasis of both lower extremity with a chronic skin changes dorsalis pedis +1 bilaterally, right lower extremity with open wound and fat exposure with cellulitis Neurologic examination: Patient is awake alert and oriented X 3, cranial nerves II-12 appear grossly intact, muscle power were 4 out of 5 in upper extremities and 3out of 5 in bilateral lower extremities, deep tendon reflexes were depressed bilaterally. ASSESSMENT AND PLAN: 1. 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 Nephrology consult. 2. Right lower extremity wound with fat exposure and Cellulitis. we will start Vancomycin Pharmacy to dose and we will continue with Ceftriaxone 1 gr IVPB daily. 3. Hypertension and hypertensive cardiovascular disease. Continue patient on amlodipine 5 mg daily, losartan 50 mg orally once every day. 4. Hyperlipidemia. Continue atorvastatin 40 mg daily. 5. Vascular dementia. We will continue Namenda 10 mg po bid 6. Chronic alcohol use and dependence. we will continue with thiamine 100 mg po daily 7. 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 Continue [place] 10/325 mg 1 tablet every 4 hours as needed, Baclofen 10 mg twice daily as needed. 8. Bilateral lower extremity neuropathy continue patient on Lyrica 200 mg orally twice every day. 9. Depression. Continue patient on Cymbalta 60 mg orally once every day. 10. DVT prophylaxis. Continue Lovenox 40 mg subcutaneously every 24 hours. 11. GI prophylaxis. Continue Protonix 40 mg orally once every day. 12. Admit to inpatient. Estimate a length of stay 2 midnights. 13. Patient is full code. DISCHARGE PLAN TBD, possible subacute rehab. Impression and plan of care have been directed as dictated by the signing physician. Suzan Willingham nurse practitioner acting as scribe for signing physician. Past Medical History Past Medical History: Hypertension, Osteoarthritis (OA) Additional Past Medical History / Comment(s): ETOH abuse, chronic back pain, BLE neuropathy, lymphedema, multiple falls History of Any Multi-Drug Resistant Organisms: None Reported Past Surgical History: Back Surgery, Orthopedic Surgery, Tonsillectomy Additional Past Surgical History / Comment(s): 3 back laminectomies, hand surgery s/p trauma to reattatch tendons Past Anesthesia/Blood Transfusion Reactions: No Reported Reaction Past Psychological History: No Psychological Hx Reported Smoking Status: Never smoker Past Alcohol Use History: Daily Past Drug Use History: None Reported - Past Family History Father Family Medical History: Hypertension Mother Family Medical History: Cancer Additional Family Medical History / Comment(s): Lung cancer Brother(s) Family Medical History: No Reported History Sister(s) Family Medical History: Hypertension Daughter(s) Family Medical History: No Reported History Medications and Allergies Home Medications Medication Instructions Recorded Confirmed Type Losartan Potassium 50 mg PO DAILY 05/06/21 04/24/23 History Atorvastatin [Lipitor] 40 mg PO DAILY 01/31/22 04/24/23 History DULoxetine HCL [Cymbalta] 60 mg PO DAILY 01/31/22 04/24/23 History Pregabalin [Lyrica] 200 mg PO BID #6 cap 02/05/22 04/24/23 Rx Baclofen 10 mg PO BID PRN 04/24/23 04/24/23 History Cholecalciferol [Vitamin D3 (25 50 mcg PO DAILY 04/24/23 04/24/23 History Mcg = 1000 Iu)] Furosemide [Lasix] 40 mg PO DAILY 04/24/23 04/24/23 History HYDROcodone/APAP 10-325MG [[place] 1 tab PO Q4H PRN 04/24/23 04/24/23 History 10-325] Memantine [Namenda] 10 mg PO BID 04/24/23 04/24/23 History amLODIPine [Norvasc] 5 mg PO DAILY 04/24/23 04/24/23 History fentaNYL 12MCG/HR PATCH [Duragesic 1 patch TRANSDERM Q72H 04/24/23 04/24/23 History 12MCG/HR] Allergies Allergy/AdvReac Type Severity Reaction Status Date / Time No Known Allergies Allergy Verified 04/24/23 22:18 Physical Exam Vitals: Vital Signs Temp Pulse Resp BP Pulse Ox 04/25/23 09:04 77 20 145/69 100 04/25/23 06:00 98 18 155/70 94 L 04/25/23 04:00 99 18 101/82 95 04/25/23 03:00 114 H 18 124/73 94 L 04/25/23 02:00 83 18 121/66 95 04/25/23 01:00 87 22 127/73 04/25/23 00:00 91 14 126/56 04/24/23 23:00 94 16 137/106 04/24/23 22:01 22 129/73 93 L 04/24/23 22:00 80 20 129/73 97 04/24/23 18:33 98.8 F 93 18 137/76 100 Intake and Output 04/24/23 04/25/23 04/25/23 22:59 06:59 14:59 Other: Weight 140.614 kg Results CBC & Chem 7: 04/25/23 03:19 04/25/23 03:19 Labs: Abnormal Lab Results - Last 24 Hours (Table) 04/24/23 04/24/23 04/24/23 Range/Units 20:41 20:41 20:41 WBC 14.2 H (3.8-10.6) k/uL RBC (4.30-5.90) m/uL Neutrophils # 11.9 H (1.3-7.7) k/uL Sodium 127 L (137-145) mmol/L Chloride 95 L (98-107) mmol/L BUN 8 L (9-20) mg/dL Creatinine 0.59 L (0.66-1.25) mg/dL Glucose 133 H (74-99) mg/dL Plasma Lactic Acid Gerardo 3.2 H* (0.7-2.0) mmol/L Phosphorus 2.2 L (2.5-4.5) mg/dL Total Protein 5.9 L (6.3-8.2) g/dL Albumin 3.2 L (3.5-5.0) g/dL 04/24/23 04/25/23 04/25/23 Range/Units 23:59 03:19 03:19 WBC 13.1 H (3.8-10.6) k/uL RBC 4.28 L (4.30-5.90) m/uL Neutrophils # 10.5 H (1.3-7.7) k/uL Sodium 127 L (137-145) mmol/L Chloride 96 L (98-107) mmol/L BUN (9-20) mg/dL Creatinine (0.66-1.25) mg/dL Glucose 143 H (74-99) mg/dL Plasma Lactic Acid Gerardo 4.0 H* (0.7-2.0) mmol/L Phosphorus (2.5-4.5) mg/dL Total Protein 6.0 L (6.3-8.2) g/dL Albumin 3.3 L (3.5-5.0) g/dL
--- NOTE | 2023-04-25 15:20 | P.GSCN ---
History of Present Illness Consult date: 04/25/23 Reason for Consult: Traumatic ulcer right lower leg Requesting physician: Suzan Willingham History of present illness: About a week ago the patient fell and injured his right leg. He developed more swelling and redness in the area. He states he's had a fever. Past Medical History Past Medical History: Hypertension, Osteoarthritis (OA) Additional Past Medical History / Comment(s): ETOH abuse, chronic back pain, BLE neuropathy, lymphedema, multiple falls History of Any Multi-Drug Resistant Organisms: None Reported Past Surgical History: Back Surgery, Orthopedic Surgery, Tonsillectomy Additional Past Surgical History / Comment(s): 3 back laminectomies, hand surgery s/p trauma to reattatch tendons Past Anesthesia/Blood Transfusion Reactions: No Reported Reaction Past Psychological History: No Psychological Hx Reported Smoking Status: Never smoker Past Alcohol Use History: Daily Past Drug Use History: None Reported - Past Family History Father Family Medical History: Hypertension Mother Family Medical History: Cancer Additional Family Medical History / Comment(s): Lung cancer Brother(s) Family Medical History: No Reported History Sister(s) Family Medical History: Hypertension Daughter(s) Family Medical History: No Reported History Medications and Allergies Home Medications Medication Instructions Recorded Confirmed Type Losartan Potassium 50 mg PO DAILY 05/06/21 04/24/23 History Atorvastatin [Lipitor] 40 mg PO DAILY 01/31/22 04/24/23 History DULoxetine HCL [Cymbalta] 60 mg PO DAILY 01/31/22 04/24/23 History Pregabalin [Lyrica] 200 mg PO BID #6 cap 02/05/22 04/24/23 Rx Baclofen 10 mg PO BID PRN 04/24/23 04/24/23 History Cholecalciferol [Vitamin D3 (25 50 mcg PO DAILY 04/24/23 04/24/23 History Mcg = 1000 Iu)] Furosemide [Lasix] 40 mg PO DAILY 04/24/23 04/24/23 History HYDROcodone/APAP 10-325MG [[place] 1 tab PO Q4H PRN 04/24/23 04/24/23 History 10-325] Memantine [Namenda] 10 mg PO BID 04/24/23 04/24/23 History amLODIPine [Norvasc] 5 mg PO DAILY 04/24/23 04/24/23 History fentaNYL 12MCG/HR PATCH [Duragesic 1 patch TRANSDERM Q72H 04/24/23 04/24/23 History 12MCG/HR] Allergies Allergy/AdvReac Type Severity Reaction Status Date / Time No Known Allergies Allergy Verified 04/24/23 22:18 Surgical - Exam Osteopathic Statement: *. No significant issues noted on an osteopathic structural exam other than those noted in the History and Physical/Consult. Vital Signs Temp Pulse Resp BP Pulse Ox 98.8 F 93 18 137/76 100 04/24/23 18:33 04/24/23 18:33 04/24/23 18:33 04/24/23 18:33 04/24/23 18:33 - General well developed, well nourished, no distress - Eyes normal ocular movement, no icteric - ENT no hearing loss, no congestion - Neck no masses, trachea midline - Respiratory normal respiratory effort, clear to auscultation - Abdomen Abdomen: soft, non tender, no guarding, no rigid, no rebound - Integumentary no rash, no abnormal pigmentation - Neurologic no disoriented, no combative - Musculoskeletal Gait limitations secondary to issues - Psychiatric oriented to time, oriented to person, oriented to place, speech is normal, memory intact There is a irregular 5 x 5 cm ulceration with some necrosis skin at the edges. There is a mild amount of slough on its surface. It is quite tender. Results - Labs 04/25/23 03:19 04/25/23 03:19 Abnormal Lab Results - Last 24 Hours (Table) 04/24/23 04/24/23 04/24/23 Range/Units 20:41 20:41 20:41 WBC 14.2 H (3.8-10.6) k/uL RBC (4.30-5.90) m/uL Neutrophils # 11.9 H (1.3-7.7) k/uL Sodium 127 L (137-145) mmol/L Chloride 95 L (98-107) mmol/L BUN 8 L (9-20) mg/dL Creatinine 0.59 L (0.66-1.25) mg/dL Glucose 133 H (74-99) mg/dL Plasma Lactic Acid Gerardo 3.2 H* (0.7-2.0) mmol/L Phosphorus 2.2 L (2.5-4.5) mg/dL Total Protein 5.9 L (6.3-8.2) g/dL Albumin 3.2 L (3.5-5.0) g/dL 04/24/23 04/25/23 04/25/23 Range/Units 23:59 03:19 03:19 WBC 13.1 H (3.8-10.6) k/uL RBC 4.28 L (4.30-5.90) m/uL Neutrophils # 10.5 H (1.3-7.7) k/uL Sodium 127 L (137-145) mmol/L Chloride 96 L (98-107) mmol/L BUN (9-20) mg/dL Creatinine (0.66-1.25) mg/dL Glucose 143 H (74-99) mg/dL Plasma Lactic Acid Gerardo 4.0 H* (0.7-2.0) mmol/L Phosphorus (2.5-4.5) mg/dL Total Protein 6.0 L (6.3-8.2) g/dL Albumin 3.3 L (3.5-5.0) g/dL Diabetes panel 04/24/23 04/25/23 Range/Units 20:41 03:19 Sodium 127 L 127 L (137-145) mmol/L Potassium 3.7 3.8 (3.5-5.1) mmol/L Chloride 95 L 96 L (98-107) mmol/L Carbon Dioxide 23 24 (22-30) mmol/L BUN 8 L 11 (9-20) mg/dL Creatinine 0.59 L 0.73 (0.66-1.25) mg/dL Glucose 133 H 143 H (74-99) mg/dL Calcium 8.6 8.7 (8.4-10.2) mg/dL AST 29 27 (17-59) U/L ALT 18 17 (4-49) U/L Alkaline Phosphatase 70 91 (38-126) U/L Total Protein 5.9 L 6.0 L (6.3-8.2) g/dL Albumin 3.2 L 3.3 L (3.5-5.0) g/dL Calcium panel 04/24/23 04/25/23 Range/Units 20:41 03:19 Calcium 8.6 8.7 (8.4-10.2) mg/dL Phosphorus 2.2 L 3.0 (2.5-4.5) mg/dL Albumin 3.2 L 3.3 L (3.5-5.0) g/dL Pituitary panel 04/24/23 04/25/23 Range/Units 20:41 03:19 Sodium 127 L 127 L (137-145) mmol/L Potassium 3.7 3.8 (3.5-5.1) mmol/L Chloride 95 L 96 L (98-107) mmol/L Carbon Dioxide 23 24 (22-30) mmol/L BUN 8 L 11 (9-20) mg/dL Creatinine 0.59 L 0.73 (0.66-1.25) mg/dL Glucose 133 H 143 H (74-99) mg/dL Calcium 8.6 8.7 (8.4-10.2) mg/dL Adrenal panel 04/24/23 04/25/23 Range/Units 20:41 03:19 Sodium 127 L 127 L (137-145) mmol/L Potassium 3.7 3.8 (3.5-5.1) mmol/L Chloride 95 L 96 L (98-107) mmol/L Carbon Dioxide 23 24 (22-30) mmol/L BUN 8 L 11 (9-20) mg/dL Creatinine 0.59 L 0.73 (0.66-1.25) mg/dL Glucose 133 H 143 H (74-99) mg/dL Calcium 8.6 8.7 (8.4-10.2) mg/dL Total Bilirubin 0.9 1.1 (0.2-1.3) mg/dL AST 29 27 (17-59) U/L ALT 18 17 (4-49) U/L Alkaline Phosphatase 70 91 (38-126) U/L Total Protein 5.9 L 6.0 L (6.3-8.2) g/dL Albumin 3.2 L 3.3 L (3.5-5.0) g/dL Assessment and Plan (1) Laceration of right lower leg without complication Current Visit: Yes Status: Acute Code(s): S81.811A - LACERATION W/O FOREIGN BODY, RIGHT LOWER LEG, INIT ENCNTR SNOMED Code(s): 69221926125933806 (2) Ulcer of right lower extremity with fat layer exposed Current Visit: Yes Status: Acute Code(s): L97.912 - NON-PRS CHR UL UNSP PRT OF R LOW LEG W FAT LAYER EXPOSED SNOMED Code(s): 28130214 Plan: I would recommend at this time to simply use Opticel silver as a topical with standard cover dressings. I would also use Rocky wraps to maintain diminished swelling in the right lower extremity. Patient has concerns about his ability to care for his wounds at home. Consider social service consult for possible rehab referral. I would recommend he be followed in the wound care center weekly following his discharge
[2023-04-25] MEDS: HYDROmorphone 1 MG/ML 1 ML SYRINGE IVP PRN ×2 (16:32→22:43)
[2023-04-25] MEDS ORDERED: VANCOMYCIN 1,000 MG in SODIUM CHLORIDE 0.9% 250 ML IVPB ONE (21:30)
--- NOTE | 2023-04-25 21:53 | XR ---
EXAMINATION TYPE: XR tibia fibula RT DATE OF EXAM: 04/25/2023 9:47 PM INDICATION: Patient age:Male; 72 years old; Reason for study: wound R/O Osteomyelitis; PHH. COMPARISON: None TECHNIQUE: The right tibia/fibula was examined in AP and lateral projections. FINDINGS: No evidence of any acute osseous pathology, joint dislocation, or soft tissue swelling is n oted. No fracture of the distal fibula. No osseous erosions. There is joint space narrowing with shima inal spurring of the lateral tibiofemoral joint space. Vascular sclerosis. IMPRESSION: 1. No evidence of acute fracture. No osseous erosions. 2. Osteoarthritic changes of the lateral tibiofemoral joint space. 3. Remote distal fibular fracture.
--- NOTE | 2023-04-25 22:54 | P.CONS ---
History of Present Illness - Reason for Consult Consult date: 04/25/23 - History of Present Illness Patient is a 72-year-old male with a past medical history pertinent for hypertension osteoarthritis history of alcohol abuse chronic back pain bilateral lower extremity neuropathy presenting to the hospital secondary to right lower extremity wound patient apparently did have a fall with laceration to the right lower extremity patient mention over the last day or 2 noticed having increasing swelling and redness and fever to the right lower extremity concerning for cellulitis, patient was complaining of pain to the right leg wound area to be more of a throbbing 6-7 out of 10 no radiation, did have some associated swelling redness but no foul-smelling drainage, the patient prese nted to hospital on arrival to the ER patient was afebrile and no fever has been recorded subsequently patient did have a white count of 14.2 with a left shift creatinine has been normal lactic acid was elevated liver exams are normal urine has been negative chest x-ray no active disease patient was started on Rocephin and vancomycin infectious disease was consulted for further management of antib iotic therapy Past Medical History Past Medical History: Hypertension, Osteoarthritis (OA) Additional Past Medical History / Comment(s): ETOH abuse, chronic back pain, BLE neuropathy, lymphedema, multiple falls History of Any Multi-Drug Resistant Organisms: None Reported Past Surgical History: Back Surgery, Orthopedic Surgery, Tonsillectomy Additional Past Surgical History / Comment(s): 3 back laminectomies, hand surgery s/p trauma to reattatch tendons Past Anesthesia/Blood Transfusion Reactions: No Reported Reaction Past Psychological History: No Psychological Hx Reported Smoking Status: Never smoker Past Alcohol Use History: Daily Past Drug Use History: None Reported - Past Family History Father Family Medical History: Hypertension Mother Family Medical History: Cancer Additional Family Medical History / Comment(s): Lung cancer Brother(s) Family Medical History: No Reported History Sister(s) Family Medical History: Hypertension Daughter(s) Family Medical History: No Reported History Medications and Allergies Home Medications Medication Instructions Recorded Confirmed Type Losartan Potassium 50 mg PO DAILY 05/06/21 04/24/23 History Atorvastatin [Lipitor] 40 mg PO DAILY 01/31/22 04/24/23 History DULoxetine HCL [Cymbalta] 60 mg PO DAILY 01/31/22 04/24/23 History Pregabalin [Lyrica] 200 mg PO BID #6 cap 02/05/22 04/24/23 Rx Baclofen 10 mg PO BID PRN 04/24/23 04/24/23 History Cholecalciferol [Vitamin D3 (25 50 mcg PO DAILY 04/24/23 04/24/23 History Mcg = 1000 Iu)] Furosemide [Lasix] 40 mg PO DAILY 04/24/23 04/24/23 History HYDROcodone/APAP 10-325MG [[place] 1 tab PO Q4H PRN 04/24/23 04/24/23 History 10-325] Memantine [Namenda] 10 mg PO BID 04/24/23 04/24/23 History amLODIPine [Norvasc] 5 mg PO DAILY 04/24/23 04/24/23 History fentaNYL 12MCG/HR PATCH [Duragesic 1 patch TRANSDERM Q72H 04/24/23 04/24/23 History 12MCG/HR] Allergies Allergy/AdvReac Type Severity Reaction Status Date / Time No Known Allergies Allergy Verified 04/24/23 22:18 Physical Exam Vitals: Vital Signs Temp Pulse Resp BP Pulse Ox 04/25/23 13:32 85 20 116/85 99 04/25/23 09:04 77 20 145/69 100 04/25/23 06:00 98 18 155/70 94 L 04/25/23 04:00 99 18 101/82 95 04/25/23 03:00 114 H 18 124/73 94 L 04/25/23 02:00 83 18 121/66 95 04/25/23 01:00 87 22 127/73 04/25/23 00:00 91 14 126/56 04/24/23 23:00 94 16 137/106 04/24/23 22:01 22 129/73 93 L 04/24/23 22:00 80 20 129/73 97 04/24/23 18:33 98.8 F 93 18 137/76 100 Intake and Output 04/24/23 04/25/23 04/25/23 22:59 06:59 14:59 Other: Weight 140.614 kg Results CBC & Chem 7: 04/25/23 03:19 04/25/23 03:19 Labs: Abnormal Lab Results - Last 24 Hours (Table) 04/24/23 04/24/23 04/24/23 Range/Units 20:41 20:41 20:41 WBC 14.2 H (3.8-10.6) k/uL RBC (4.30-5.90) m/uL Neutrophils # 11.9 H (1.3-7.7) k/uL Sodium 127 L (137-145) mmol/L Chloride 95 L (98-107) mmol/L BUN 8 L (9-20) mg/dL Creatinine 0.59 L (0.66-1.25) mg/dL Glucose 133 H (74-99) mg/dL Plasma Lactic Acid Gerardo 3.2 H* (0.7-2.0) mmol/L Phosphorus 2.2 L (2.5-4.5) mg/dL Total Protein 5.9 L (6.3-8.2) g/dL Albumin 3.2 L (3.5-5.0) g/dL 04/24/23 04/25/23 04/25/23 Range/Units 23:59 03:19 03:19 WBC 13.1 H (3.8-10.6) k/uL RBC 4.28 L (4.30-5.90) m/uL Neutrophils # 10.5 H (1.3-7.7) k/uL Sodium 127 L (137-145) mmol/L Chloride 96 L (98-107) mmol/L BUN (9-20) mg/dL Creatinine (0.66-1.25) mg/dL Glucose 143 H (74-99) mg/dL Plasma Lactic Acid Gerardo 4.0 H* (0.7-2.0) mmol/L Phosphorus (2.5-4.5) mg/dL Total Protein 6.0 L (6.3-8.2) g/dL Albumin 3.3 L (3.5-5.0) g/dL Assessment and Plan Plan: 1patient with right lower extremity traumatic wound and now concerning for secondary cellulitis likely from gram-positive skin rupali gram-negative infection less likely but not entirely excluded 2-we will wait for the local and the blood cultures to be finalized 3-local wound care per the wound care team 4-vancomycin pharmacy to dose with a target trough of 15 while watching kidney function and Vanco trough closely. Should provide adequate antibiotic coverage while waiting for the culture to finalize We will follow on clinical condition and cultures to further adjust medication if needed Thank you for this consultation we will follow the patient along with you Dictation was produced using [employer] dictation software. please excuse any grammatical, word or spelling errors. Time with Patient: Greater than 30
[2023-04-26] MEDS: HYDROcodone/APAP 10-325MG 1 EACH TAB PO PRN ×5 (00:26→20:42)
[2023-04-26] MEDS ORDERED: VANCOMYCIN IV PER PHARMACY 1 EACH MISC MISCELLANE PRN (01:47)
[2023-04-26] MEDS: VANCOMYCIN 2,000 MG in SODIUM CHLORIDE 0.9% 500 ML 500 ML IVPB SCH ×2 (04:25→16:17)
[2023-04-26] MEDS: HYDROmorphone 1 MG/ML 1 ML SYRINGE IVP PRN (07:02)
[2023-04-26] MEDS: PANTOPRAZOLE 40 MG TABLET PO SCH (07:03)
[2023-04-26 07:36] LABS: HCT 39.9 % (39.0-53.0); HGB 13.2 gm/dL (13.0-17.5); MCH 32.2 pg (25.0-35.0); MCHC 33.1 g/dL (31.0-37.0); MCV 97.1 fL (80.0-100.0); Mean Platelet Volume 6.8; Platelet Count 222 k/uL (150-450); RBC 4.11 m/uL (4.30-5.90); RDW 15.2 % (11.5-15.5); WBC 7.5 k/uL (3.8-10.6)
[2023-04-26 07:50] LABS: ALT 16 U/L (4-49); AST 27 U/L (17-59); African American GFR (CKD) >90 (>60 ml/min/1.73 sqM); Alkaline Phosphatase 78 U/L (38-126); Anion Gap 5 mmol/L; Blood Urea Nitrogen 8 mg/dL (9-20); Calcium 8.4 mg/dL (8.4-10.2); Carbon Dioxide 30 mmol/L (22-30); Chloride 98 mmol/L (98-107); Glucose 104 mg/dL (74-99); Non-African American GFR(CKD) >90 (>60 ml/min/1.73 sqM); Sodium 133 mmol/L (137-145); Total Bilirubin 0.4 mg/dL (0.2-1.3); Total Protein 5.5 g/dL (6.3-8.2)
[2023-04-26] MEDS: ENOXAPARIN 40 MG/0.4 ML SYRINGE SQ SCH (10:30)
[2023-04-26] MEDS: amLODIPine 5 MG TAB PO SCH (10:31)
[2023-04-26] MEDS: ATORVASTATIN 40 MG TAB PO SCH (10:31)
[2023-04-26] MEDS: CHOLECALCIFEROL 25 MCG (1000 IU) TABLET PO SCH (10:31)
[2023-04-26] MEDS: THIAMINE 100 MG TAB PO SCH (10:31)
[2023-04-26] MEDS: MEMANTINE 10 MG TAB PO SCH ×2 (10:36→20:42)
[2023-04-26] MEDS: DULoxetine HCL 60 MG CAPSULE.DR PO SCH (10:36)
[2023-04-26] MEDS: PREGABALIN 100 MG CAP PO SCH ×2 (10:36→20:42)
[2023-04-26] MEDS: LOSARTAN 50 MG TAB PO SCH (10:36)
[2023-04-26] MEDS: NYSTATIN 100,000 UNIT/GM POWD 15 GM TOPICAL SCH ×2 (10:44→21:21)
[2023-04-26] MEDS ORDERED: MAG HYDROX/AL HYDROX/SIMETH 30 ML CUP PO PRN (12:22)
--- NOTE | 2023-04-26 15:44 | P.PN ---
Subjective Progress Note Date: 04/26/23 HISTORY OF PRESENT ILLNESS: This is a 72-year-old male one of my patient with a previous medical history significant for hypertension and hypertensive cardiovascular disease, hyperlipidemia, obesity with obstructive sleep apnea, history of chronic alcohol use and dependence with the peripheral neuropathy, significant spondylosis of the lumbar spine with spinal stenosis and significant chronic low back pain. Patient's last hospitalization was for hyponatremia, lactic acidosis, bronchitis. Patient was discharged home with home care. Patient presented to the emergency center due to right lower extremity wound with redness, swelling, fever and concern for cellulitis. Patient was found to be afebrile with stable vital signs. WBC was 14.2. Sodium 127, BUN 8 and creatinine 0.59. Blood sugar was 133. Troponin was negative 1 urinalysis was negative for infection. BUN was 8 and creatinine 0.59. Magnesium 1.9. Phosphorus 2.2. Chest x-ray reveals no active disease. Patient admitted to the [facility] floor, consult requested withinfectious disease, wound center, started on IV ceftriaxone. Blood cultures are status received. 04/26: Patient is seen today on the observation unit. Patient has been seen by infectious disease and vancomycin has been added. Wound care team as added local wound care with Opticel Ag, dressing material followed by Rocky wrap. Tib- fib x-ray showed no acute fracture, osteoarthritis. Remote distal to reveal a fracture. Patient is worked with therapies with recommendations for subacute rehab. Social work is following for discharge to subacute rehab for [facility], [facility] or [facility]. REVIEW OF SYSTEMS: Constitutional: No documented fever, no chills, no night sweats. No weight change. positive for weakness , reports fatigue reports lethargy. Positive for daytime sleepiness. HEENT: No headache. No blurred vision or double vision, no loss of vision. No loss of Hearing, no ringing in the ears, no dizziness. No nasal drainage or congestion. No epistaxis. No sore throat. Lungs: No shortness of breath, no cough, no sputum production. No wheezing. Reports dyspnea with activity. Cardiovascular: No chest pain, positive for lower extremity edema. No palpitations. No paroxysmal nocturnal dyspnea. No orthopnea. No lightheadedness or dizziness. No syncopal episodes.Positive for nocturia. Abdominal: No abdominal pain. No nausea, vomiting. No diarrhea. No constipation. No bloody or tarry stools . No loss of appetite. Genitourinary: No dysuria, increased frequency, urgency. No urinary retention. Musculoskeletal: positive for neck pain, positive for chronic low back pain, positive for significant pain in both lower extremities with significant neuropathy, positive for gait dysfunction, positive for lower extremity weakness. Integumentary: Positive for venous ulcerations of right lower extremity , no lesions. No rash or pruritus. No unusual bruising. Does appear to have seborrheic dermatitis Neurologic: No aphasia. No facial droop. Memory loss. No head injury. No headache, positive for paresthesia in both lower extremities Psychiatric: Patient does appear to be somewhat depressed, appears to be a bit anxious, no suicidal thoughts or ideation. Endocrine: No abnormal blood sugars, increased weight. PHYSICAL EXAMINATION: General: This is a 72-year-old male who is resting in bed and does not appear to be in acute distress. HEENT: Head is atraumatic, normocephalic, pupils were equal round reactive to light and recommendation, extraocular muscle movement were intact, sclera nonicteric, conjunctivae were pale, mucous membranes of the mouth are somewhat dry. Neck: Supple, no JVP, normal carotid upstroke bilaterally, no lymphadenopathy. Chest: Decreased breath sounds at the bases, few rhonchi, no expiratory wheezes, no chest wall tenderness, no intercostal retractions. Heart: First heart sound is normal, second heart sound is normal there is systolic ejection murmur 2/6 located in the left sternal border. Abdomen: Soft, nontender, nondistended, positive bowel sounds. Extremities: There is chronic significant venous stasis of both lower extremity with a chronic skin changes dorsalis pedis +1 bilaterally, right lower extremity with open wound and fat exposure with cellulitis Neurologic examination: Patient is awake alert and oriented X 3, cranial nerves II-12 appear grossly intact, muscle power were 4 out of 5 in upper extremities and 3out of 5 in bilateral lower extremities, deep tendon reflexes were depressed bilaterally. ASSESSMENT AND PLAN: 1. 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 Nephrology consult. 2. Right lower extremity wound with fat exposure and Cellulitis. we will start Vancomycin Pharmacy to dose and we will continue with Ceftriaxone 1 gr IVPB daily. ID consult appreciated. 3. Hypertension and hypertensive cardiovascular disease. Continue patient on amlodipine 5 mg daily, losartan 50 mg orally once every day. 4. Hyperlipidemia. Continue atorvastatin 40 mg daily. 5. Vascular dementia. We will continue Namenda 10 mg po bid 6. Chronic alcohol use and dependence. we will continue with thiamine 100 mg po daily 7. 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 Continue [place] 10/325 mg 1 tablet every 4 hours as needed, Baclofen 10 mg twice daily as needed. 8. Bilateral lower extremity neuropathy continue patient on Lyrica 200 mg orally twice every day. 9. Depression. Continue patient on Cymbalta 60 mg orally once every day. 10. DVT prophylaxis. Continue Lovenox 40 mg subcutaneously every 24 hours. 11. GI prophylaxis. Continue Protonix 40 mg orally once every day. 12. Patient is full code. DISCHARGE PLAN Subacute rehab. Impression and plan of care have been directed as dictated by the signing physician. Suzan Willingham nurse practitioner acting as scribe for signing physician. Objective - Vital Signs Vital signs: Vital Signs Temp 97.7 F 04/26/23 01:18 Pulse 73 04/26/23 10:30 Resp 18 04/26/23 10:30 BP 120/73 04/26/23 01:18 Pulse Ox 96 04/26/23 01:18 FiO2 Intake & Output 04/25/23 04/26/23 04/26/23 18:59 06:59 18:59 Intake Total 10 20 Output Total 200 1200 400 Balance -200 -1190 -380 Weight 140.614 kg Intake: IV 10 20 Invasive Line 1 10 Invasive Line 2 20 Output: Urine 200 1200 400 Other: Voiding Method Urinal Urinal # Voids 1 - Labs CBC & Chem 7: 04/26/23 06:30 04/26/23 06:30 Labs: Abnormal Lab Results - Last 24 Hours (Table) 04/25/23 04/25/23 04/26/23 Range/Units 14:24 14:52 06:30 RBC 4.11 L (4.30-5.90) m/uL Sodium (137-145) mmol/L BUN (9-20) mg/dL Creatinine (0.66-1.25) mg/dL Glucose (74-99) mg/dL Osmolality 275 L (280-301) mosm/kg Total Protein (6.3-8.2) g/dL Albumin (3.5-5.0) g/dL Ur Random Sodium <20 L (40-220) mmol/L 04/26/23 Range/Units 06:30 RBC (4.30-5.90) m/uL Sodium 133 L (137-145) mmol/L BUN 8 L (9-20) mg/dL Creatinine 0.65 L (0.66-1.25) mg/dL Glucose 104 H (74-99) mg/dL Osmolality (280-301) mosm/kg Total Protein 5.5 L (6.3-8.2) g/dL Albumin 3.0 L (3.5-5.0) g/dL Ur Random Sodium (40-220) mmol/L Microbiology - Last 24 Hours (Table) 04/24/23 20:45 Blood Culture - Preliminary Blood 04/24/23 20:41 Blood Culture - Preliminary Blood
[2023-04-26] MEDS: NYSTATIN 100,000 UNIT/GM OINT 30 GM TUBE TOPICAL SCH (21:21)
[2023-04-26] MEDS: TRIAMCINOLONE ACET 0.1% OINTMENT 80 GM TUBE TOPICAL SCH (21:21)
[2023-04-27] MEDS: HYDROcodone/APAP 10-325MG 1 EACH TAB PO PRN ×6 (00:41→20:38)
[2023-04-27 04:49] LABS: African American GFR (CKD) >90 (>60 ml/min/1.73 sqM); Non-African American GFR(CKD) >90 (>60 ml/min/1.73 sqM)
[2023-04-27] MEDS: VANCOMYCIN 2,000 MG in SODIUM CHLORIDE 0.9% 500 ML 500 ML IVPB SCH (05:18)
[2023-04-27] MEDS: PANTOPRAZOLE 40 MG TABLET PO SCH (06:31)
[2023-04-27] MEDS: DULoxetine HCL 60 MG CAPSULE.DR PO SCH (07:46)
[2023-04-27] MEDS: PREGABALIN 100 MG CAP PO SCH ×2 (07:46→20:38)
[2023-04-27] MEDS: MEMANTINE 10 MG TAB PO SCH ×2 (07:46→20:38)
[2023-04-27] MEDS: amLODIPine 5 MG TAB PO SCH (07:46)
[2023-04-27] MEDS: ATORVASTATIN 40 MG TAB PO SCH (07:46)
[2023-04-27] MEDS: THIAMINE 100 MG TAB PO SCH (07:46)
[2023-04-27] MEDS: CHOLECALCIFEROL 25 MCG (1000 IU) TABLET PO SCH (07:46)
[2023-04-27] MEDS: LOSARTAN 50 MG TAB PO SCH (07:46)
[2023-04-27] MEDS: ENOXAPARIN 40 MG/0.4 ML SYRINGE SQ SCH (07:47)
--- NOTE | 2023-04-27 09:13 | P.PN ---
Subjective Progress Note Date: 04/27/23 HISTORY OF PRESENT ILLNESS: This is a 72-year-old male one of my patient with a previous medical history significant for hypertension and hypertensive cardiovascular disease, hyperlipidemia, obesity with obstructive sleep apnea, history of chronic alcohol use and dependence with the peripheral neuropathy, significant spondylosis of the lumbar spine with spinal stenosis and significant chronic low back pain. Patient's last hospitalization was for hyponatremia, lactic acidosis, bronchitis. Patient was discharged home with home care. Patient presented to the emergency center due to right lower extremity wound with redness, swelling, fever and concern for cellulitis. Patient was found to be afebrile with stable vital signs. WBC was 14.2. Sodium 127, BUN 8 and creatinine 0.59. Blood sugar was 133. Troponin was negative 1 urinalysis was negative for infection. BUN was 8 and creatinine 0.59. Magnesium 1.9. Phosphorus 2.2. Chest x-ray reveals no active disease. Patient admitted to the [facility] floor, consult requested withinfectious disease, wound center, started on IV ceftriaxone. Blood cultures are status received. 04/26: Patient is seen today on the observation unit. Patient has been seen by infectious disease and vancomycin has been added. Wound care team as added local wound care with Opticel Ag, dressing material followed by Rocky wrap. Tib- fib x-ray showed no acute fracture, osteoarthritis. Remote distal to reveal a fracture. Patient is worked with therapies with recommendations for subacute rehab. Social work is following for discharge to subacute rehab for [facility] or [facility]. 04/27: Patient is seen today on the [facility] floor. He has been afebrile, heart rate in the 70s, blood pressure 117/69, pulse ox 97% on room air. Repeat creatinine 0.61. Patient is continued on vancomycin and Rocephin. Local wound care is in place. Patient is on a fluid restriction of 1000 ML's. Blood work for this morning is not available at the time of this dictation. REVIEW OF SYSTEMS: Constitutional: No documented fever, no chills, no night sweats. No weight change. positive for weakness , reports fatigue reports lethargy. Positive for daytime sleepiness. HEENT: No headache. No blurred vision or double vision, no loss of vision. No loss of Hearing, no ringing in the ears, no dizziness. No nasal drainage or congestion. No epistaxis. No sore throat. Lungs: No shortness of breath, no cough, no sputum production. No wheezing. Reports dyspnea with activity. Cardiovascular: No chest pain, positive for lower extremity edema. No palpitations. No paroxysmal nocturnal dyspnea. No orthopnea. No lightheadedness or dizziness. No syncopal episodes.Positive for nocturia. Abdominal: No abdominal pain. No nausea, vomiting. No diarrhea. No constipation. No bloody or tarry stools . No loss of appetite. Genitourinary: No dysuria, increased frequency, urgency. No urinary retention. Musculoskeletal: positive for neck pain, positive for chronic low back pain, positive for significant pain in both lower extremities with significant neuropathy, positive for gait dysfunction, positive for lower extremity weak ness. Integumentary: Positive for venous ulcerations of right lower extremity , no lesions. No rash or pruritus. No unusual bruising. Does appear to have seborrheic dermatitis Neurologic: No aphasia. No facial droop. Memory loss. No head injury. No headache, positive for paresthesia in both lower extremities Psychiatric: Patient does appear to be somewhat depressed, appears to be a bit anxious, no suicidal thoughts or ideation. Endocrine: No abnormal blood sugars, increased weight. PHYSICAL EXAMINATION: General: This is a 72-year-old male who is resting in bed and does not appear to be in acute distress. HEENT: Head is atraumatic, normocephalic, pupils were equal round reactive to light and recommendation, extraocular muscle movement were intact, sclera nonicteric, conjunctivae were pale, mucous membranes of the mouth are somewhat dry. Neck: Supple, no JVP, normal carotid upstroke bilaterally, no lymphadenopathy. Chest: Decreased breath sounds at the bases, few rhonchi, no expiratory wheezes, no chest wall tenderness, no intercostal retractions. Heart: First heart sound is normal, second heart sound is normal there is systolic ejection murmur 2/6 located in the left sternal border. Abdomen: Soft, nontender, nondistended, positive bowel sounds. Extremities: There is chronic significant venous stasis of both lower extremity with a chronic skin changes dorsalis pedis +1 bilaterally, right lower extremity with open wound and fat exposure with cellulitis Neurologic examination: Patient is awake alert and oriented X 3, cranial nerves II-12 appear grossly intact, muscle power were 4 out of 5 in upper extremities and 3out of 5 in bilateral lower extremities, deep tendon reflexes were depressed bilaterally. ASSESSMENT AND PLAN: 1. 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 2. Right lower extremity wound with fat exposure and Cellulitis. we will start Vancomycin Pharmacy to dose and we will continue with Ceftriaxone 1 gr IVPB daily. ID consult appreciated. 3. Hypertension and hypertensive cardiovascular disease. Continue patient on amlodipine 5 mg daily, losartan 50 mg orally once every day. 4. Hyperlipidemia. Continue atorvastatin 40 mg daily. 5. Vascular dementia. We will continue Namenda 10 mg po bid 6. Chronic alcohol use and dependence. we will continue with thiamine 100 mg po daily 7. 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 Continue [place] 10/325 mg 1 tablet every 4 hours as needed, Baclofen 10 mg twice daily as needed. 8. Bilateral lower extremity neuropathy continue patient on Lyrica 200 mg orally twice every day. 9. Depression. Continue patient on Cymbalta 60 mg orally once every day. 10. DVT prophylaxis. Continue Lovenox 40 mg subcutaneously every 24 hours. 11. GI prophylaxis. Continue Protonix 40 mg orally once every day. 12. Patient is full code. DISCHARGE PLAN Subacute rehab on Monday. Impression and plan of care have been directed as dictated by the signing physician. Suzan Willingham nurse practitioner acting as scribe for signing physician. Objective - Vital Signs Vital signs: Vital Signs Temp 98.4 F 04/27/23 07:00 Pulse 71 04/27/23 07:00 Resp 18 04/27/23 07:00 BP 117/69 04/27/23 07:00 Pulse Ox 97 04/27/23 07:00 FiO2 Intake & Output 04/26/23 04/27/23 04/27/23 18:59 06:59 18:59 Intake Total 480 236 Output Total 400 400 Balance 80 -164 Intake: IV 30 Invasive Line 2 30 Oral 450 236 Output: Urine 400 400 Other: Voiding Method Urinal # Voids 1 - Labs CBC & Chem 7: 04/26/23 06:30 04/27/23 04:13 Labs: Abnormal Lab Results - Last 24 Hours (Table) 04/27/23 Range/Units 04:13 Creatinine 0.61 L (0.66-1.25) mg/dL Microbiology - Last 24 Hours (Table) 04/24/23 20:45 Blood Culture - Preliminary Blood 04/24/23 20:41 Blood Culture - Preliminary Blood 04/26/23 06:00 Gram Stain - Preliminary Leg - Right
[2023-04-27 11:23] LABS: Glucose,Whole Blood 120 mg/dL (70-110)
[2023-04-27] MEDS: TRIAMCINOLONE ACET 0.1% OINTMENT 80 GM TUBE TOPICAL SCH ×2 (11:53→20:38)
[2023-04-27] MEDS: NYSTATIN 100,000 UNIT/GM OINT 30 GM TUBE TOPICAL SCH ×2 (11:53→20:38)
[2023-04-27] MEDS: NYSTATIN 100,000 UNIT/GM POWD 15 GM TOPICAL SCH ×2 (11:53→20:38)
[2023-04-27] MEDS: CEFEPIME 2 GM in SODIUM CHLORIDE 0.9% 100 ML IVPB SCH ×2 (15:58→23:14)
[2023-04-27] MEDS ORDERED: VANCOMYCIN TROUGH DUE 1 EACH MISC MISCELLANE ONE (16:00)
[2023-04-27] MEDS: DOCUSATE 100 MG CAP PO SCH (23:14)
[2023-04-28] MEDS: HYDROcodone/APAP 10-325MG 1 EACH TAB PO PRN ×5 (04:30→22:59)
[2023-04-28] MEDS: PANTOPRAZOLE 40 MG TABLET PO SCH ×2 (06:35)
--- NOTE | 2023-04-28 07:59 | P.PN ---
Subjective Progress Note Date: 04/26/23 Principal diagnosis: Right leg wound and cellulitis Patient is a 72-year-old male with a past medical history pertinent for hypertension osteoarthritis history of alcohol abuse chronic back pain bilateral lower extremity neuropathy presenting to the hospital secondary to right lower extremity wound patient apparently did have a fall with laceration to the right lower extremity and concerning for cellulitis. On today's evaluation that is 04/26/2023 the patient is afebrile the patient is breathing comfortably on room air denies any chest pain shortness of breath or c ough no abdominal pain still complaining of pain to the right lower extremity wound area but no foul-smelling drainage. Patient white count is 7.5 creatinine 0.65 local cultures currently pending Objective - Vital Signs Vital signs: Vital Signs Temp 97.7 F 04/26/23 01:18 Pulse 73 04/26/23 10:30 Resp 18 04/26/23 10:30 BP 120/73 04/26/23 01:18 Pulse Ox 96 04/26/23 01:18 FiO2 Intake & Output 04/25/23 04/26/23 04/26/23 18:59 06:59 18:59 Intake Total 10 20 Output Total 200 1200 250 Balance -200 -1190 -230 Weight 140.614 kg Intake: IV 10 20 Invasive Line 1 10 Invasive Line 2 20 Output: Urine 200 1200 250 Other: Voiding Method Urinal Urinal # Voids 1 - Exam GENERAL DESCRIPTION: Elderly male lying in bed in no distress RESPIRATORY SYSTEM: Unlabored breathing , decreased breath sounds at bases HEART: S1 S2 regular rate and rhythm ,no loud murmurs ABDOMEN: Soft , no tenderness EXTREMITIES: Right leg wound is currently dressed no drainage on the dressing - Labs CBC & Chem 7: 04/26/23 06:30 04/27/23 04:13 Labs: Abnormal Lab Results - Last 24 Hours (Table) 04/25/23 04/25/23 04/26/23 Range/Units 14:24 14:52 06:30 RBC 4.11 L (4.30-5.90) m/uL Sodium (137-145) mmol/L BUN (9-20) mg/dL Creatinine (0.66-1.25) mg/dL Glucose (74-99) mg/dL Osmolality 275 L (280-301) mosm/kg Total Protein (6.3-8.2) g/dL Albumin (3.5-5.0) g/dL Ur Random Sodium <20 L (40-220) mmol/L 04/26/23 Range/Units 06:30 RBC (4.30-5.90) m/uL Sodium 133 L (137-145) mmol/L BUN 8 L (9-20) mg/dL Creatinine 0.65 L (0.66-1.25) mg/dL Glucose 104 H (74-99) mg/dL Osmolality (280-301) mosm/kg Total Protein 5.5 L (6.3-8.2) g/dL Albumin 3.0 L (3.5-5.0) g/dL Ur Random Sodium (40-220) mmol/L Microbiology - Last 24 Hours (Table) 04/24/23 20:45 Blood Culture - Preliminary Blood 04/24/23 20:41 Blood Culture - Preliminary Blood Assessment and Plan (1) Cellulitis of right leg Current Visit: Yes Status: Acute Code(s): L03.115 - CELLULITIS OF RIGHT LOWER LIMB SNOMED Code(s): 698311618 (2) Ulcer of right lower extremity with fat layer exposed Current Visit: Yes Status: Acute Code(s): L97.912 - NON-PRS CHR ULC UNSP PRT OF R LOW LEG W FAT LAYER EXPOSED SNOMED Code(s): 38469391 Plan: 1patient with right lower extremity traumatic wound and now concerning for secondary cellulitis likely from gram-positive skin rupali gram-negative infection less likely but not entirely excluded 2-we will wait for the local and the blood cultures to be finalized 3-local wound care per the wound care team 4-Pt to continue with vancomycin pharmacy to dose with a target trough of 15 and rocephin while waiting for the culture to finalize Dictation was produced using [employer] dictation software. please excuse any gramma tical, word or spelling errors. Time with Patient: Less than 30
--- NOTE | 2023-04-28 08:01 | P.PN ---
Subjective Progress Note Date: 04/27/23 Principal diagnosis: Right leg wound and cellulitis Patient is a 72-year-old male with a past medical history pertinent for hypertension osteoarthritis history of alcohol abuse chronic back pain bilateral lower extremity neuropathy presenting to the hospital secondary to right lower extremity wound patient apparently did have a fall with laceration to the right lower extremity and concerning for cellulitis. On today's evaluation that is 04/27/2023 the patient remains to be afebrile the patient is breathing comfortably on room air denies any chest pain shortness of the cough no abdominal pain or worsening pain to the right lower extremity wound area. Patient did have a creatinine 0.61 and no CBC was done today local cultures growing gram-negative bacilli blood culture has been negative Objective - Vital Signs Vital signs: Vital Signs Temp 98.4 F 04/27/23 07:00 Pulse 71 04/27/23 07:00 Resp 18 04/27/23 07:00 BP 117/69 04/27/23 07:00 Pulse Ox 97 04/27/23 09:05 FiO2 21 04/27/23 09:05 Intake & Output 04/26/23 04/27/23 04/27/23 18:59 06:59 18:59 Intake Total 480 236 Output Total 400 400 Balance 80 -164 Intake: IV 30 Invasive Line 2 30 Oral 450 236 Output: Urine 400 400 Other: Voiding Method Urinal # Voids 1 - Exam GENERAL DESCRIPTION: Elderly male lying in bed in no distress RESPIRATORY SYSTEM: Unlabored breathing , decreased breath sounds at bases HEART: S1 S2 regular rate and rhythm ,no loud murmurs ABDOMEN: Soft , no tenderness EXTREMITIES: This is right lower extremity wound base with minimal slough tissue minimal surrounding redness no foul-smelling drainage - Labs CBC & Chem 7: 04/26/23 06:30 04/27/23 04:13 Labs: Abnormal Lab Results - Last 24 Hours (Table) 04/27/23 04/27/23 Range/Units 04:13 11:22 Creatinine 0.61 L (0.66-1.25) mg/dL POC Glucose (mg/dL) 120 H (70-110) mg/dL Microbiology - Last 24 Hours (Table) 04/26/23 06:00 Gram Stain - Preliminary Leg - Right Wound Culture - Preliminary Gram Neg Bacilli 04/24/23 20:45 Blood Culture - Preliminary Blood 04/24/23 20:41 Blood Culture - Preliminary Blood Assessment and Plan (1) Cellulitis of right leg Current Visit: Yes Status: Acute Code(s): L03.115 - CELLULITIS OF RIGHT LOWER LIMB SNOMED Code(s): 461346197 (2) Ulcer of right lower extremity with fat layer exposed Current Visit: Yes Status: Acute Code(s): L97.912 - NON-PRS CHR ULC UNSP PRT OF R LOW LEG W FAT LAYER EXPOSED SNOMED Code(s): 14569650 Plan: 1patient with right lower extremity traumatic wound and now concerning for secondary cellulitis likely from gram-positive skin rupali gram-negative infection less likely but not entirely excluded 2-Blood culture has been negative so far local culture growing gram-negative bacilli. 3we will discontinue vancomycin Rocephin start the patient on cefepime while waiting for the culture to finalize to determine his discharge antibiotics Dictation was produced using [employer] dictation software. please excuse any grammatical, word or spelling errors. Time with Patient: Less than 30
[2023-04-28 08:24] LABS: African American GFR (CKD) >90 (>60 ml/min/1.73 sqM); Non-African American GFR(CKD) >90 (>60 ml/min/1.73 sqM)
[2023-04-28] MEDS: PREGABALIN 100 MG CAP PO SCH ×2 (08:56→20:27)
[2023-04-28] MEDS: CHOLECALCIFEROL 25 MCG (1000 IU) TABLET PO SCH (08:56)
[2023-04-28] MEDS: ATORVASTATIN 40 MG TAB PO SCH (08:56)
[2023-04-28] MEDS: THIAMINE 100 MG TAB PO SCH (08:56)
[2023-04-28] MEDS: MEMANTINE 10 MG TAB PO SCH ×2 (08:56→20:27)
[2023-04-28] MEDS: amLODIPine 5 MG TAB PO SCH (08:56)
[2023-04-28] MEDS: DOCUSATE 100 MG CAP PO SCH ×2 (08:56→20:27)
[2023-04-28] MEDS: LOSARTAN 50 MG TAB PO SCH (08:56)
[2023-04-28] MEDS: CEFEPIME 2 GM in SODIUM CHLORIDE 0.9% 100 ML IVPB SCH (08:57)
[2023-04-28] MEDS: ENOXAPARIN 40 MG/0.4 ML SYRINGE SQ SCH (08:57)
[2023-04-28 09:19] LABS: Basophils % (A) 0 %; Eosinophils # (A) 0.3 k/uL (0-0.7); Eosinophils % (A) 4 %; HCT 39.1 % (39.0-53.0); HGB 12.9 gm/dL (13.0-17.5); Lymphocytes # (A) 1.4 k/uL (1.0-4.8); Lymphocytes % (A) 15 %; MCH 32.4 pg (25.0-35.0); MCHC 32.9 g/dL (31.0-37.0); MCV 98.6 fL (80.0-100.0); Macrocytosis Slight; Mean Platelet Volume 8.8; Monocytes # (A) 0.6 k/uL (0-1.0); Monocytes % (A) 6 %; Neutrophils # (A) 7.1 k/uL (1.3-7.7); Neutrophils % (A) 74 %; Platelet Count 194 k/uL (150-450); RBC 3.96 m/uL (4.30-5.90); RDW 15.3 % (11.5-15.5); WBC 9.6 k/uL (3.8-10.6)
[2023-04-28] MEDS: DULoxetine HCL 60 MG CAPSULE.DR PO SCH (13:31)
[2023-04-28] MEDS: AMPICILLIN-SULBACTAM 3 GM in SODIUM CHLORIDE 0.9% 100 ML IVPB SCH ×3 (13:31→23:00)
[2023-04-28] MEDS: NYSTATIN 100,000 UNIT/GM POWD 15 GM TOPICAL SCH ×2 (13:37→20:27)
[2023-04-28] MEDS: NYSTATIN 100,000 UNIT/GM OINT 30 GM TUBE TOPICAL SCH ×2 (13:38→20:27)
[2023-04-28] MEDS: TRIAMCINOLONE ACET 0.1% OINTMENT 80 GM TUBE TOPICAL SCH ×2 (13:39→20:27)
[2023-04-28 14:53] LABS: African American GFR (CKD) >90 (>60 ml/min/1.73 sqM); Anion Gap 3 mmol/L; Blood Urea Nitrogen 17 mg/dL (9-20); Calcium 8.5 mg/dL (8.4-10.2); Carbon Dioxide 30 mmol/L (22-30); Chloride 99 mmol/L (98-107); Glucose 92 mg/dL (74-99); Non-African American GFR(CKD) >90 (>60 ml/min/1.73 sqM); Potassium 4.2 mmol/L (3.5-5.1); Sodium 132 mmol/L (137-145)
--- NOTE | 2023-04-28 15:16 | P.PN ---
Subjective Progress Note Date: 04/28/23 HISTORY OF PRESENT ILLNESS: This is a 72-year-old male one of my patient with a previous medical history significant for hypertension and hypertensive cardiovascular disease, hyperlipidemia, obesity with obstructive sleep apnea, history of chronic alcohol use and dependence with the peripheral neuropathy, significant spondylosis of the lumbar spine with spinal stenosis and significant chronic low back pain. Patient's last hospitalization was for hyponatremia, lactic acidosis, bronchitis. Patient was discharged home with home care. Patient presented to the emergency center due to right lower extremity wound with redness, swelling, fever and concern for cellulitis. Patient was found to be afebrile with stable vital signs. WBC was 14.2. Sodium 127, BUN 8 and creatinine 0.59. Blood sugar was 133. Troponin was negative 1 urinalysis was negative for infection. BUN was 8 and creatinine 0.59. Magnesium 1.9. Phosphorus 2.2. Chest x-ray reveals no active disease. Patient admitted to the [facility] floor, consult requested withinfectious disease, wound center, started on IV ceftriaxone. Blood cultures are status received. 04/26: Patient is seen today on the observation unit. Patient has been seen by infectious disease and vancomycin has been added. Wound care team as added local wound care with Opticel Ag, dressing material followed by Rocky wrap. Tib- fib x-ray showed no acute fracture, osteoarthritis. Remote distal to reveal a fracture. Patient is worked with therapies with recommendations for subacute rehab. Social work is following for discharge to subacute rehab for [facility] or [facility]. 04/27: Patient is seen today on the MedSur floor. He has been afebrile, heart rate in the 70s, blood pressure 117/69, pulse ox 97% on room air. Repeat creatinine 0.61. Patient is continued on vancomycin and Rocephin. Local wound care is in place. Patient is on a fluid restriction of 1000 ML's. Blood work for this morning is not available at the time of this dictation. 04/28: Patient remains afebrile, heart rate in the 60s and 70s, blood pressure 111/68, pulse ox 96% on room air. Wound culture is gram-negative bacilli. CBG running between 120 and an 150. A1c in December was 6.1. Patient is currently on cefepime and vancomycin per Dr. Medina. Repeat sodium is 132 and patient is requesting that fluid restriction be discontinued which we will do today. Patient states he still has pain in the legs and he is taking Artie one every 4 hours. Adnexa pain down a little bit but is having difficulty sleeping due to pain. Discharge plan is for medical [place] [facility] [place]. REVIEW OF SYSTEMS: Constitutional: No documented fever, no chills, no night sweats. No weight change. positive for weakness , reports fatigue reports lethargy. Positive for daytime sleepiness. HEENT: No headache. No blurred vision or double vision, no loss of vision. No loss of Hearing, no ringing in the ears, no dizziness. No nasal drainage or congestion. No epistaxis. No sore throat. Lungs: No shortness of breath, no cough, no sputum production. No wheezing. Reports dyspnea with activity. Cardiovascular: No chest pain, positive for lower extremity edema. No palpitations. No paroxysmal nocturnal dyspnea. No orthopnea. No lightheadedness or dizziness. No syncopal episodes.Positive for nocturia. Abdominal: No abdominal pain. No nausea, vomiting. No diarrhea. No constipation. No bloody or tarry stools . No loss of appetite. Genitourinary: No dysuria, increased frequency, urgency. No urinary retention. Musculoskeletal: positive for neck pain, positive for chronic low back pain, positive for significant pain in both lower extremities with significant neuropathy, positive for gait dysfunction, positive for lower extremity weakness. Integumentary: Positive for venous ulcerations of right lower extremity , no lesions. No rash or pruritus. No unusual bruising. Does appear to have seborrheic dermatitis Neurologic: No aphasia. No facial droop. Memory loss. No head injury. No headache, positive for paresthesia in both lower extremities Psychiatric: Patient does appear to be somewhat depressed, appears to be a bit a nxious, no suicidal thoughts or ideation. Endocrine: No abnormal blood sugars, increased weight. PHYSICAL EXAMINATION: General: This is a 72-year-old male who is resting in bed and does not appear to be in acute distress. HEENT: Head is atraumatic, normocephalic, pupils were equal round reactive to light and recommendation, extraocular muscle movement were intact, sclera nonicteric, conjunctivae were pale, mucous membranes of the mouth are somewhat dry. Neck: Supple, no JVP, normal carotid upstroke bilaterally, no lymphadenopathy. Chest: Decreased breath sounds at the bases, few rhonchi, no expiratory wheezes, no chest wall tenderness, no intercostal retractions. Heart: First heart sound is normal, second heart sound is normal there is systolic ejection murmur 2/6 located in the left sternal border. Abdomen: Soft, nontender, nondistended, positive bowel sounds. Extremities: There is chronic significant venous stasis of both lower extremity with a chronic skin changes dorsalis pedis +1 bilaterally, right lower extremity with open wound and fat exposure with cellulitis Neurologic examination: Patient is awake alert and oriented X 3, cranial nerves II-12 appear grossly intact, muscle power were 4 out of 5 in upper extremities and 3out of 5 in bilateral lower extremities, deep tendon reflexes were depressed bilaterally. ASSESSMENT AND PLAN: 1. 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 2. Right lower extremity wound with fat exposure and Cellulitis. we will start Vancomycin Pharmacy to dose and we will continue with Ceftriaxone 1 gr IVPB daily. ID consult appreciated. 3. Hypertension and hypertensive cardiovascular disease. Continue patient on amlodipine 5 mg daily, losartan 50 mg orally once every day. 4. Hyperlipidemia. Continue atorvastatin 40 mg daily. 5. Vascular dementia. We will continue Namenda 10 mg po bid 6. Chronic alcohol use and dependence. we will continue with thiamine 100 mg po daily 7. 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 Continue Artie 10/325 mg 1 tablet every 4 hours as needed, Baclofen 10 mg twice daily as needed. 8. Bilateral lower extremity neuropathy continue patient on Lyrica 200 mg orally twice every day. 9. Depression. Continue patient on Cymbalta 60 mg orally once every day. 10. DVT prophylaxis. Continue Lovenox 40 mg subcutaneously every 24 hours. 11. GI prophylaxis. Continue Protonix 40 mg orally once every day. 12. Patient is full code. DISCHARGE PLAN Subacute rehab on Monday to [facility]. Impression and plan of care have been directed as dictated by the signing physician. Suzan Willingham nurse practitioner acting as scribe for signing physician. Objective - Vital Signs Vital signs: Vital Signs Temp 97.6 F 04/28/23 06:50 Pulse 61 04/28/23 06:50 Resp 18 04/28/23 06:50 BP 111/68 04/28/23 06:50 Pulse Ox 96 04/28/23 06:50 FiO2 21 04/27/23 09:05 Intake & Output 04/27/23 04/28/23 04/28/23 18:59 06:59 18:59 Intake Total 720 420 Output Total 3100 Balance 720 -2680 Intake: Oral 720 420 Output: Urine 3100 Other: # Voids 3 - Labs CBC & Chem 7: 04/28/23 07:51 04/28/23 14:15 Labs: Abnormal Lab Results - Last 24 Hours (Table) 04/27/23 Range/Units 11:22 POC Glucose (mg/dL) 120 H (70-110) mg/dL Microbiology - Last 24 Hours (Table) 04/24/23 20:45 Blood Culture - Preliminary Blood 04/24/23 20:41 Blood Culture - Preliminary Blood 04/26/23 06:00 Gram Stain - Preliminary Leg - Right Wound Culture - Preliminary Gram Neg Bacilli
--- NOTE | 2023-04-28 15:23 | P.DS ---
Providers Date of admission: 04/24/23 22:11 Expected date of discharge: 05/01/23 Attending physician: Johnny Lane Consults: 04/25/23 12:34 Consult Physician Routine Consulting Provider: Matteo Medina Consult Reason/Comments: cellulitis Do you want consulting provider notified?: Yes Primary care physician: Johnny Lane Hospital Course: HISTORY OF PRESENT ILLNESS: This is a 72-year-old male one of my patient with a previous medical history significant for hypertension and hypertensive cardiovascular disease, hyperlipidemia, obesity with obstructive sleep apnea, history of chronic alcohol use and dependence with the peripheral neuropathy, significant spondylosis of the lumbar spine with spinal stenosis and significant chronic low back pain. Patient's last hospitalization was for hyponatremia, lactic acidosis, bronchitis. Patient was discharged home with home care. Patient presented to the emergency center due to right lower extremity wound with redness, swelling, fever and concern for cellulitis. Patient was found to be afebrile with stable vital signs. WBC was 14.2. Sodium 127, BUN 8 and creatinine 0.59. Blood sugar was 133. Troponin was negative 1 urinalysis was negative for infection. BUN was 8 and creatinine 0.59. Magnesium 1.9. Phosphorus 2.2. Chest x-ray reveals no active disease. Patient admitted to the MedSurg floor, consult requested withinfectious disease, wound center, started on IV ceftriaxone. Blood cultures are status received. 04/26: Patient is seen today on the observation unit. Patient has been seen by infectious disease and vancomycin has been added. Wound care team as added local wound care with Opticel Ag, dressing material followed by Rocky wrap. Tib- fib x-ray showed no acute fracture, osteoarthritis. Remote distal to reveal a fracture. Patient is worked with therapies with recommendations for subacute rehab. Social work is following for discharge to subacute rehab for [facility], [facility] or [facility]. 04/27: Patient is seen today on the MedSurg floor. He has been afebrile, heart rate in the 70s, blood pressure 117/69, pulse ox 97% on room air. Repeat creatinine 0.61. Patient is continued on vancomycin and Rocephin. Local wound care is in place. Patient is on a fluid restriction of 1000 ML's. Blood work for this morning is not available at the time of this dictation. 04/28: Patient remains afebrile, heart rate in the 60s and 70s, blood pressure 111/68, pulse ox 96% on room air. Wound culture is gram-negative bacilli. CBG running between 120 and an 150. A1c in December was 6.1. Patient is currently on cefepime and vancomycin per Dr. Medina. Repeat sodium is 132 and patient is requesting that fluid restriction be discontinued which we will do today. Patient states he still has pain in the legs and he is taking Pers[place] one every 4 hours. Adnexa pain down a little bit but is having difficulty sleeping due to pain. Discharge plan is for [facility]. 04/29: Patient is sitting up in a chair distress, he denies any chest ache, shortness breath, he has no abdominal pain, he continues to have some pain in the right lower extremity, with culture showed e. coli that is sensitive to penicillin, but enterococcus d organism still pending at the time of dictation, therefore the patient was in the hospital and unasyn until monday and then he can be discharged to [facility] on monday morning 05/01: Wound cultures have finalized with E. coli Enterococcus faecalis sensitive to penicillin. Dr. Medina has recommended Augmentin along with local wound care with Aquacel Ag dressing and Rocky wrap. Patient remains afebrile, heart rate controlled in the 60s and 70s, blood pressure 116/63, pulse ox 97% on room air. Patient will be discharged today in stable condition. DISCHARGE DIAGNOSES: 1. Euvolemic Hyponatremia likely SIADH 2. Right lower extremity wound with fat exposure and Cellulitis. 3. Hypertension and hypertensive cardiovascular disease. 4. Hyperlipidemia. 5. Vascular dementia. 6. Chronic alcohol use and dependence. 7. 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 8. Bilateral lower extremity neuropathy 9. Depression. DISCHARGE PLAN Acute rehab at [facility] Greater than 35 minutes was utilized and coordinating patient's discharge. Impression and plan of care have been directed as dictated by the signing physician. Suzan Willingham nurse practitioner acting as scribe for signing physician. Patient Condition at Discharge: Fair Plan - Discharge Summary Discharge Rx Participant: No New Discharge Prescriptions: New Nystatin 100,000 Unit/gm Oint [Mycostatin Oint] 1 applic TOPICAL BID each Pantoprazole [Protonix] 40 mg PO AC-BRKFST tab Thiamine [Vitamin B-1] 100 mg PO DAILY tab polyethylene glycoL 3350 [Miralax] 17 gm PO DAILY packet Triamcinolone 0.1% Ointment [Kenalog 0.1% Ointment] 1 applic TOPICAL BID each Nystatin 100,000 Unit/gm Powd [Mycostatin Powder] 1 applic TOPICAL BID each Amoxic-Pot Clav 875-125Mg [Augmentin 875-125] 1 tab PO BID 7 Days #14 tab Continue Cholecalciferol [Vitamin D3 (25 Mcg = 1000 Iu)] 50 mcg PO DAILY Furosemide [Lasix] 40 mg PO DAILY Losartan Potassium 50 mg PO DAILY Atorvastatin [Lipitor] 40 mg PO DAILY DULoxetine HCL [Cymbalta] 60 mg PO DAILY amLODIPine [Norvasc] 5 mg PO DAILY Baclofen 10 mg PO BID PRN PRN Reason: Muscle Spasm Memantine [Namenda] 10 mg PO BID fentaNYL 12MCG/HR PATCH [Duragesic 12MCG/HR] 1 patch TRANSDERM Q72H #1 patch Pregabalin [Lyrica] 200 mg PO BID #6 cap Changed HYDROcodone/APAP 10-325MG [Persia 10-325] 1 tab PO Q4H PRN #18 tab PRN Reason: Pain Discharge Medication List Losartan Potassium 50 mg PO DAILY 05/06/21 [History] Atorvastatin [Lipitor] 40 mg PO DAILY 01/31/22 [History] DULoxetine HCL [Cymbalta] 60 mg PO DAILY 01/31/22 [History] Baclofen 10 mg PO BID PRN 04/24/23 [History] Cholecalciferol [Vitamin D3 (25 Mcg = 1000 Iu)] 50 mcg PO DAILY 04/24/23 [History] Furosemide [Lasix] 40 mg PO DAILY 04/24/23 [History] Memantine [Namenda] 10 mg PO BID 04/24/23 [History] amLODIPine [Norvasc] 5 mg PO DAILY 04/24/23 [History] HYDROcodone/APAP 10-325MG [Persia 10-325] 1 tab PO Q4H PRN #18 tab 04/28/23 [Rx] Nystatin 100,000 Unit/gm Oint [Mycostatin Oint] 1 applic TOPICAL BID each 04/28/23 [Rx] Nystatin 100,000 Unit/gm Powd [Mycostatin Powder] 1 applic TOPICAL BID each 04/28/23 [Rx] Pantoprazole [Protonix] 40 mg PO AC-BRKFST tab 04/28/23 [Rx] Pregabalin [Lyrica] 200 mg PO BID #6 cap 04/28/23 [Rx] Thiamine [Vitamin B-1] 100 mg PO DAILY tab 04/28/23 [Rx] Triamcinolone 0.1% Ointment [Kenalog 0.1% Ointment] 1 applic TOPICAL BID each 04/28/23 [Rx] fentaNYL 12MCG/HR PATCH [Duragesic 12MCG/HR] 1 patch TRANSDERM Q72H #1 patch 04/28/23 [Rx] Amoxic-Pot Clav 875-125Mg [Augmentin 875-125] 1 tab PO BID 7 Days #14 tab 05/01/23 [Rx] polyethylene glycoL 3350 [Miralax] 17 gm PO DAILY packet 05/01/23 [Rx] Follow up Appointment(s)/Referral(s): Johnny Lane MD [Primary Care Provider] - 1 Week (after discharge from [facility]) Discharge Disposition: TRANSFER TO SNF/ECF
--- NOTE | 2023-04-28 16:02 | XR ---
EXAMINATION TYPE: XR elbow complete LT DATE OF EXAM: 04/28/2023 COMPARISON: NONE HISTORY: Pain FINDINGS: Three views of the elbow demonstrate pathologic joint effusion. The osseous structures are intact. There is no acute fracture or dislocation. There is adjacent soft tissue ossifications are seen francisca g the lateral compartment of the elbow joint. IMPRESSION: 1. Pathologic joint effusion. Correlate for occult fracture. Otherwise consider inflammatory arthropa thy or infectious etiology.
--- NOTE | 2023-04-28 16:11 | P.PN ---
Subjective Progress Note Date: 04/28/23 Principal diagnosis: Right leg wound and cellulitis Patient is a 72-year-old male with a past medical history pertinent for hypertension osteoarthritis history of alcohol abuse chronic back pain bilateral lower extremity neuropathy presenting to the hospital secondary to right lower extremity wound patient apparently did have a fall with laceration to the right lower extremity and concerning for cellulitis. On today's evaluation that is 04/28/2023, the patient denies having any fever or any chills, the patient is breathing comfortably on room air no chest pain or shortness of occasional cough no abdominal pain and no worsening pain to the right lower extremity. The patient white count is 9.6 creatinine 0.68 local cultures growing E. coli and enterococcus Objective - Vital Signs Vital signs: Vital Signs Temp 97.6 F 04/28/23 06:50 Pulse 61 04/28/23 06:50 Resp 18 04/28/23 06:50 BP 111/68 04/28/23 06:50 Pulse Ox 96 04/28/23 06:50 FiO2 21 04/27/23 09:05 Intake & Output 04/27/23 04/28/23 04/28/23 18:59 06:59 18:59 Intake Total 720 420 Output Total 3100 Balance 720 -2680 Intake: Oral 720 420 Output: Urine 3100 Other: # Voids 3 - Exam GENERAL DESCRIPTION: Elderly male lying in bed in no distress RESPIRATORY SYSTEM: Unlabored breathing , decreased breath sounds at bases HEART: S1 S2 regular rate and rhythm ,no loud murmurs ABDOMEN: Soft , no tenderness EXTREMITIES: This is right lower extremity wound base with minimal slough tissue minimal surrounding redness no foul-smelling drainage - Labs CBC & Chem 7: 04/28/23 07:51 04/28/23 14:15 Labs: Abnormal Lab Results - Last 24 Hours (Table) 04/28/23 Range/Units 07:51 RBC 3.96 L (4.30-5.90) m/uL Hgb 12.9 L (13.0-17.5) gm/dL Microbiology - Last 24 Hours (Table) 04/26/23 06:00 Gram Stain - Preliminary Leg - Right Wound Culture - Preliminary Escherichia coli Group D Enterococcus 04/24/23 20:45 Blood Culture - Preliminary Blood 04/24/23 20:41 Blood Culture - Preliminary Blood Assessment and Plan (1) Cellulitis of right leg Current Visit: Yes Status: Acute Code(s): L03.115 - CELLULITIS OF RIGHT LOWER LIMB SNOMED Code(s): 778954750 (2) Ulcer of right lower extremity with fat layer exposed Current Visit: Yes Status: Acute Code(s): L97.912 - NON-PRS CHR ULC UNSP PRT OF R LOW LEG W FAT LAYER EXPOSED SNOMED Code(s): 44298706 Plan: 1patient with right lower extremity traumatic wound and now concerning for secondary cellulitis likely from gram-positive skin rupali gram-negative infect ion less likely but not entirely excluded 2-Blood culture has been negative so far local culture growing gram-negative bacilli which has been finalized as E. coli that is a sensitive pathogen also growing enterococcus sensitivities pending 3we will discontinue cefepime . Start The patient on Unasyn while waiting for sensitivity on enterococcus to finalize to determine his discharge antibiotics Dictation was produced using [employer] dictation software. please excuse any grammatical, word or spelling errors. Time with Patient: Less than 30
[2023-04-29] MEDS: AMPICILLIN-SULBACTAM 3 GM in SODIUM CHLORIDE 0.9% 100 ML IVPB SCH ×3 (06:09→17:17)
[2023-04-29] MEDS: HYDROcodone/APAP 10-325MG 1 EACH TAB PO PRN ×4 (06:09→19:23)
[2023-04-29] MEDS: PANTOPRAZOLE 40 MG TABLET PO SCH (06:10)
[2023-04-29] MEDS: DULoxetine HCL 60 MG CAPSULE.DR PO SCH (09:07)
[2023-04-29] MEDS: PREGABALIN 100 MG CAP PO SCH ×2 (09:07→20:33)
[2023-04-29] MEDS: LOSARTAN 50 MG TAB PO SCH (09:07)
[2023-04-29] MEDS: THIAMINE 100 MG TAB PO SCH (09:07)
[2023-04-29] MEDS: MEMANTINE 10 MG TAB PO SCH ×2 (09:07→20:33)
[2023-04-29] MEDS: ATORVASTATIN 40 MG TAB PO SCH (09:08)
[2023-04-29] MEDS: amLODIPine 5 MG TAB PO SCH (09:08)
[2023-04-29] MEDS: ENOXAPARIN 40 MG/0.4 ML SYRINGE SQ SCH (09:08)
[2023-04-29] MEDS: DOCUSATE 100 MG CAP PO SCH ×2 (09:08→20:33)
[2023-04-29] MEDS: NYSTATIN 100,000 UNIT/GM POWD 15 GM TOPICAL SCH ×2 (09:08→20:33)
[2023-04-29] MEDS: CHOLECALCIFEROL 25 MCG (1000 IU) TABLET PO SCH (09:08)
[2023-04-29 09:23] LABS: Basophils # (A) 0.06 X 10*3/uL (0.00-0.10); Basophils % (A) 0.6 %; Eosinophils % (A) 3.1 %; HCT 36.5 % (39.6-50.0); HGB 11.7 d/dL (13.0-17.0); Lymphocytes # (A) 1.81 X 10*3/uL (0.90-5.00); Lymphocytes % (A) 18.9 %; MCH 31.4 pg (27.0-32.0); MCHC 32.1 d/dL (32.0-37.0); MCV 97.9 FL (80.0-97.0); Monocytes % (A) 10.4 %; NRBC Per 100 WBC 0 X 10*3/uL (0.00-0.01); Neutrophils # (A) 6.38 X 10*3/uL (1.80-7.70); Neutrophils % (A) 66.5 %; Platelet Count 122 X 10*3/uL (140-440); RBC 3.73 X 10*6/uL (4.40-5.60); RDW 15.8 % (11.5-14.5)
[2023-04-29] MEDS: NYSTATIN 100,000 UNIT/GM OINT 30 GM TUBE TOPICAL SCH ×2 (10:52→20:33)
[2023-04-29] MEDS: TRIAMCINOLONE ACET 0.1% OINTMENT 80 GM TUBE TOPICAL SCH ×2 (10:52→20:33)
--- NOTE | 2023-04-29 13:12 | P.PN ---
Subjective Progress Note Date: 04/29/23 HISTORY OF PRESENT ILLNESS: This is a 72-year-old male one of my patient with a previous medical history significant for hypertension and hypertensive cardiovascular disease, hyperlipidemia, obesity with obstructive sleep apnea, history of chronic alcohol use and dependence with the peripheral neuropathy, significant spondylosis of the lumbar spine with spinal stenosis and significant chronic low back pain. Patient's last hospitalization was for hyponatremia, lactic acidosis, bronchitis. Patient was discharged home with home care. Patient presented to the emergency center due to right lower extremity wound with redness, swelling, fever and concern for cellulitis. Patient was found to be afebrile with stable vital signs. WBC was 14.2. Sodium 127, BUN 8 and creatinine 0.59. Blood sugar was 133. Troponin was negative 1 urinalysis was negative for infection. BUN was 8 and creatinine 0.59. Magnesium 1.9. Phosphorus 2.2. Chest x-ray reveals no active disease. Patient admitted to the [facility] floor, consult requested withinfectious disease, wound center, started on IV ceftriaxone. Blood cultures are status received. 04/26: Patient is seen today on the observation unit. Patient has been seen by infectious disease and vancomycin has been added. Wound care team as added local wound care with Opticel Ag, dressing material followed by Rocky wrap. Tib- fib x-ray showed no acute fracture, osteoarthritis. Remote distal to reveal a fracture. Patient is worked with therapies with recommendations for subacute rehab. Social work is following for discharge to subacute rehab for [facility] or [facility]. 04/27: Patient is seen today on the [facility] floor. He has been afebrile, heart rate in the 70s, blood pressure 117/69, pulse ox 97% on room air. Repeat creatinine 0.61. Patient is continued on vancomycin and Rocephin. Local wound care is in place. Patient is on a fluid restriction of 1000 ML's. Blood work for this morning is not available at the time of this dictation. 04/28: Patient remains afebrile, heart rate in the 60s and 70s, blood pressure 111/68, pulse ox 96% on room air. Wound culture is gram-negative bacilli. CBG running between 120 and an 150. A1c in December was 6.1. Patient is currently on cefepime and vancomycin per Dr. Medina. Repeat sodium is 132 and patient is requesting that fluid restriction be discontinued which we will do today. Patient states he still has pain in the legs and he is taking Denver one every 4 hours. Adnexa pain down a little bit but is having difficulty sleeping due to pain. Discharge plan is for [facility]. 04/29: Patient is sitting up in a chair distress, he denies any chest ache, shortness breath, he has no abdominal pain, he continues to have some pain in the right lower extremity, with culture showed e. coli that is sensitive to penicillin, but enterococcus d organism still pending at the time of dictation, therefore the patient was in the hospital and unasyn until monday and then he can be discharged to [facility] on monday morning REVIEW OF SYSTEMS: Constitutional: No documented fever, no chills, no night sweats. No weight change. positive for weakness , reports fatigue reports lethargy. Positive for daytime sleepiness. HEENT: No headache. No blurred vision or double vision, no loss of vision. No loss of Hearing, no ringing in the ears, no dizziness. No nasal drainage or congestion. No epistaxis. No sore throat. Lungs: No shortness of breath, no cough, no sputum production. No wheezing. Reports dyspnea with activity. Cardiovascular: No chest pain, positive for lower extremity edema. No palpitations. No paroxysmal nocturnal dyspnea. No orthopnea. No lightheadedness or dizziness. No syncopal episodes.Positive for nocturia. Abdominal: No abdominal pain. No nausea, vomiting. No diarrhea. No constipation. No bloody or tarry stools . No loss of appetite. Genitourinary: No dysuria, increased frequency, urgency. No urinary retention. Musculoskeletal: positive for neck pain, positive for chronic low back pain, positive for significant pain in both lower extremities with significant neuropathy, positive for gait dysfunction, positive for lower extremity weakness. Integumentary: Positive for venous ulcerations of right lower extremity , no lesions. No rash or pruritus. No unusual bruising. Does appear to have seborrheic dermatitis Neurologic: No aphasia. No facial droop. Memory loss. No head injury. No headache, positive for paresthesia in both lower extremities Psychiatric: Patient does appear to be somewhat depressed, appears to be a bit anxious, no suicidal thoughts or ideation. Endocrine: No abnormal blood sugars, increased weight. PHYSICAL EXAMINATION: General: This is a 72-year-old male who is resting in bed and does not appear to be in acute distress. HEENT: Head is atraumatic, normocephalic, pupils were equal round reactive to light and recommendation, extraocular muscle movement were intact, sclera nonicteric, conjunctivae were pale, mucous membranes of the mouth are somewhat dry. Neck: Supple, no JVP, normal carotid upstroke bilaterally, no lymphadenopathy. Chest: Decreased breath sounds at the bases, few rhonchi, no expiratory wheezes, no chest wall tenderness, no intercostal retractions. Heart: First heart sound is normal, second heart sound is normal there is systolic ejection murmur 2/6 located in the left sternal border. Abdomen: Soft, nontender, nondistended, positive bowel sounds. Extremities: There is chronic significant venous stasis of both lower extremity with a chronic skin changes dorsalis pedis +1 bilaterally, right lower extremity with open wound and fat exposure with cellulitis Neurologic examination: Patient is awake alert and oriented X 3, cranial nerves II-12 appear grossly intact, muscle power were 4 out of 5 in upper extremities and 3out of 5 in bilateral lower extremities, deep tendon reflexes were depressed bilaterally. ASSESSMENT AND PLAN: 1. 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 2. Right lower extremity wound with fat exposure and Cellulitis. we will continue patient on Unasyn infectious disease is following. 3. Hypertension and hypertensive cardiovascular disease. Continue patient on amlodipine 5 mg daily, losartan 50 mg orally once every day. 4. Hyperlipidemia. Continue atorvastatin 40 mg daily. 5. Vascular dementia. We will continue Namenda 10 mg po bid 6. Chronic alcohol use and dependence. we will continue with thiamine 100 mg po daily 7. 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 Continue Denver 10/325 mg 1 tablet every 4 hours as needed, Baclofen 10 mg twice daily as needed.Continue fentanyl patch 12 g every 72 hours 8. Bilateral lower extremity neuropathy continue patient on Lyrica 200 mg o rally twice every day. 9. Depression. Continue patient on Cymbalta 60 mg orally once every day. 10. DVT prophylaxis. Continue Lovenox 40 mg subcutaneously every 24 hours. 11. GI prophylaxis. Continue Protonix 40 mg orally once every day. 12. Patient is full code. 13. Await the result of the cultures 14. Likely ECF on Monday Objective - Vital Signs Vital signs: Vital Signs Temp 97.8 F 04/29/23 07:26 Pulse 70 04/29/23 07:26 Resp 17 04/29/23 07:26 BP 124/65 04/29/23 07:26 Pulse Ox 95 04/29/23 08:37 FiO2 21 04/27/23 09:05 Intake & Output 04/28/23 04/29/23 04/29/23 18:59 06:59 18:59 Intake Total 100 Output Total 650 900 Balance -550 -900 Intake: Intake, IV Titration 100 Amount Ampicillin-Sulbactam 3 gm 100 In Sodium Chloride 0.9% 100 ml @ 200 mls/hr IVPB Q6HR [facility] Rx#:[id number] Output: Urine 650 900 Other: Voiding Method Urinal # Voids 3 - Labs CBC & Chem 7: 04/29/23 04:25 04/28/23 14:15 Labs: Abnormal Lab Results - Last 24 Hours (Table) 04/28/23 04/29/23 Range/Units 14:15 04:25 RBC 3.73 L (4.40-5.60) X 10*6/uL Hgb 11.7 L (13.0-17.0) d/dL Hct 36.5 L (39.6-50.0) % MCV 97.9 H (80.0-97.0) FL RDW 15.8 H (11.5-14.5) % Plt Count 122 L (140-440) X 10*3/uL Sodium 132 L (137-145) mmol/L Microbiology - Last 24 Hours (Table) 04/26/23 06:00 Anaerobic Culture - Preliminary Leg - Right 04/26/23 06:00 Gram Stain - Preliminary Leg - Right Wound Culture - Preliminary Escherichia coli Group D Enterococcus
[2023-04-29 13:28] VITALS: BMI 42.0
--- NOTE | 2023-04-29 15:00 | P.PN ---
Subjective Progress Note Date: 04/29/23 Principal diagnosis: Right leg wound and cellulitis Patient is a 72-year-old male with a past medical history pertinent for hypertension osteoarthritis history of alcohol abuse chronic back pain bilateral lower extremity neuropathy presenting to the hospital secondary to right lower extremity wound patient apparently did have a fall with laceration to the right lower extremity and concerning for cellulitis. On today's evaluation that is 04/29/2023, patient remains to be afebrile, the patient is breathing comfortably on room air denies any chest pain shortness with cough no abdominal pain swelling or pain to the right lower extremity wound area however no foul-smelling drainage. Patient did have vitamin of 9.60 creatinine 0.60 leg wound culture growing E. coli and Enterococcus faecalis that is sensitive to penicillin. Objective - Vital Signs Vital signs: Vital Signs Temp 97.8 F 04/29/23 07:26 Pulse 70 04/29/23 07:26 Resp 17 04/29/23 07:26 BP 124/65 04/29/23 07:26 Pulse Ox 95 04/29/23 08:37 FiO2 21 04/27/23 09:05 Intake & Output 04/28/23 04/29/23 04/29/23 18:59 06:59 18:59 Intake Total 100 Output Total 650 900 Balance -550 -900 Intake: Intake, IV Titration 100 Amount Ampicillin-Sulbactam 3 gm 100 In Sodium Chloride 0.9% 100 ml @ 200 mls/hr IVPB Q6HR [facility] Rx#:[id number] Output: Urine 650 900 Other: Voiding Method Urinal # Voids 3 - Exam GENERAL DESCRIPTION: Elderly male lying in bed in no distress RESPIRATORY SYSTEM: Unlabored breathing , decreased breath sounds at bases HEART: S1 S2 regular rate and rhythm ,no loud murmurs ABDOMEN: Soft , no tenderness EXTREMITIES: Patient right lower extremity wound base with left slough tissue in the surrounding redness and no foul-smelling drainage. - Labs CBC & Chem 7: 04/29/23 04:25 04/28/23 14:15 Labs: Abnormal Lab Results - Last 24 Hours (Table) 04/28/23 04/29/23 Range/Units 14:15 04:25 RBC 3.73 L (4.40-5.60) X 10*6/uL Hgb 11.7 L (13.0-17.0) d/dL Hct 36.5 L (39.6-50.0) % MCV 97.9 H (80.0-97.0) FL RDW 15.8 H (11.5-14.5) % Plt Count 122 L (140-440) X 10*3/uL Sodium 132 L (137-145) mmol/L Microbiology - Last 24 Hours (Table) 04/26/23 06:00 Anaerobic Culture - Preliminary Leg - Right 04/26/23 06:00 Gram Stain - Preliminary Leg - Right Wound Culture - Preliminary Escherichia coli Group D Enterococcus Assessment and Plan (1) Cellulitis of right leg Current Visit: Yes Status: Acute Code(s): L03.115 - CELLULITIS OF RIGHT LOWER LIMB SNOMED Code(s): 986130884 (2) Ulcer of right lower extremity with fat layer exposed Current Visit: Yes Status: Acute Code(s): L97.912 - NON-PRS CHR ULC UNSP PRT OF R LOW LEG W FAT LAYER EXPOSED SNOMED Code(s): 11680360 Plan: 1patient with right lower extremity traumatic wound and now concerning for secondary cellulitis likely from gram-positive skin rupali gram-negative inf ection less likely but not entirely excluded 2-Blood culture has been negative so far local culture growing gram-negative bacilli which has been finalized as E. coli that is a sensitive pathogen also growing enterococcus sensitivities Has been finalized Enterococcus sensitive to penicillin. 3patient to continue with the Unasyn however the patient will be due for therapy with oral Augmentin local wound care to continue with Aquacel silver dressing followed by Rocky wrap discussed with the nursing staff Dictation was produced using [email or web address] dictation software. please excuse any grammatical, word or spelling errors.
[2023-04-30] MEDS: AMPICILLIN-SULBACTAM 3 GM in SODIUM CHLORIDE 0.9% 100 ML IVPB SCH ×4 (00:57→17:43)
[2023-04-30] MEDS: PANTOPRAZOLE 40 MG TABLET PO SCH (06:30)
[2023-04-30] MEDS: DOCUSATE 100 MG CAP PO SCH ×2 (08:31→20:54)
[2023-04-30] MEDS: CHOLECALCIFEROL 25 MCG (1000 IU) TABLET PO SCH (08:31)
[2023-04-30] MEDS: amLODIPine 5 MG TAB PO SCH (08:32)
[2023-04-30] MEDS: ATORVASTATIN 40 MG TAB PO SCH (08:32)
[2023-04-30] MEDS: THIAMINE 100 MG TAB PO SCH (08:32)
[2023-04-30] MEDS: LOSARTAN 50 MG TAB PO SCH (08:32)
[2023-04-30] MEDS: HYDROcodone/APAP 10-325MG 1 EACH TAB PO PRN ×4 (08:32→20:54)
[2023-04-30] MEDS: PREGABALIN 100 MG CAP PO SCH ×2 (08:32→20:50)
[2023-04-30] MEDS: DULoxetine HCL 60 MG CAPSULE.DR PO SCH (08:32)
[2023-04-30] MEDS: MEMANTINE 10 MG TAB PO SCH ×2 (08:32→20:54)
[2023-04-30] MEDS: ENOXAPARIN 40 MG/0.4 ML SYRINGE SQ SCH (08:32)
[2023-04-30] MEDS: NYSTATIN 100,000 UNIT/GM POWD 15 GM TOPICAL SCH ×2 (08:42→20:57)
[2023-04-30] MEDS: NYSTATIN 100,000 UNIT/GM OINT 30 GM TUBE TOPICAL SCH (08:42)
[2023-04-30] MEDS: TRIAMCINOLONE ACET 0.1% OINTMENT 80 GM TUBE TOPICAL SCH ×2 (08:42→20:57)
[2023-04-30] MEDS: polyethylene glycoL 3350 17 GM POWD.PACK PO SCH (10:24)
[2023-04-30 20:42] VITALS: RESP 17
[2023-05-01] MEDS: AMPICILLIN-SULBACTAM 3 GM in SODIUM CHLORIDE 0.9% 100 ML IVPB SCH ×2 (00:04→06:15)
[2023-05-01] MEDS: HYDROcodone/APAP 10-325MG 1 EACH TAB PO PRN ×3 (00:04→10:19)
[2023-05-01 07:27] VITALS: BP 115/66; PULSE 64; TEMP 98
[2023-05-01] MEDS ORDERED: PANTOPRAZOLE 40 MG TABLET PO SCH (07:30)
--- NOTE | 2023-05-01 08:02 | P.PN ---
Subjective Progress Note Date: 04/30/23 Principal diagnosis: Right leg wound and cellulitis Patient is a 72-year-old male with a past medical history pertinent for hypertension osteoarthritis history of alcohol abuse chronic back pain bilateral lower extremity neuropathy presenting to the hospital secondary to right lower extremity wound patient apparently did have a fall with laceration to the right lower extremity and concerning for cellulitis. On today's evaluation that is 04/30/2023, patient remains to be afebrile, the patient is breathing comfortably on room air no chest pain no shortness of breath or cough no abdominal pain still complaining some pain to the right lower extremity wound area but no worsening. No blood work was done today patient right leg wound finalized with Enterococcus and E. coli sensitive to Unasyn anaerobe culture were negative Objective - Vital Signs Vital signs: Vital Signs Temp 98.4 F 04/30/23 07:09 Pulse 68 04/30/23 07:09 Resp 16 04/30/23 07:09 BP 123/67 04/30/23 07:09 Pulse Ox 100 04/30/23 07:09 FiO2 21 04/27/23 09:05 Intake & Output 04/29/23 04/30/23 04/30/23 18:59 06:59 18:59 Intake Total 1620 Output Total 1390 Balance 1620 -1390 Weight 140.614 kg Intake: Oral 1620 Output: Urine 1390 Other: Voiding Method Urinal - Exam GENERAL DESCRIPTION: Elderly male lying in bed in no distress RESPIRATORY SYSTEM: Unlabored breathing , decreased breath sounds at bases HEART: S1 S2 regular rate and rhythm ,no loud murmurs ABDOMEN: Soft , no tenderness EXTREMITIES: Patient right lower extremity wound base with left slough tissue in the surrounding redness and no foul-smelling drainage. - Labs CBC & Chem 7: 04/29/23 04:25 04/28/23 14:15 Labs: Microbiology - Last 24 Hours (Table) 04/24/23 20:45 Blood Culture - Final Blood 04/24/23 20:41 Blood Culture - Final Blood 04/26/23 06:00 Anaerobic Culture - Final Leg - Right 04/26/23 06:00 Gram Stain - Final Leg - Right Wound Culture - Final Enterococcus faecalis Escherichia coli Assessment and Plan (1) Cellulitis of right leg Current Visit: Yes Status: Acute Code(s): L03.115 - CELLULITIS OF RIGHT LOWER LIMB SNOMED Code(s): 150811342 (2) Ulcer of right lower extremity with fat layer exposed Current Visit: Yes Status: Acute Code(s): L97.912 - NON-PRS CHR ULC UNSP PRT OF R LOW LEG W FAT LAYER EXPOSED SNOMED Code(s): 61558395 Plan: 1patient with right lower extremity traumatic wound and now concerning for secondary cellulitis likely from gram-positive skin rupali gram-negative infection less likely but not entirely excluded 2-Blood culture has been negative so far local culture growing gram-negative bacilli which has been finalized as E. coli that is a sensitive pathogen also growing enterococcus sensitivities Has been finalized Enterococcus sensitive to penicillin. 3patient has shown some clinical improvement as far as cellulitis of the right lower extremity currently being treated with Unasyn, plan to finish therapy with Augmentin x7 days local wound care with Aquacel silver dressing and Rocky wrap Dictation was produced using [employer] dictation software. please excuse any grammatical, word or spelling errors.
[2023-05-01] MEDS: THIAMINE 100 MG TAB PO SCH (09:48)
[2023-05-01] MEDS: amLODIPine 5 MG TAB PO SCH (09:48)
[2023-05-01] MEDS: DOCUSATE 100 MG CAP PO SCH (09:48)
[2023-05-01] MEDS: ATORVASTATIN 40 MG TAB PO SCH (09:48)
[2023-05-01] MEDS: ENOXAPARIN 40 MG/0.4 ML SYRINGE SQ SCH (09:48)
[2023-05-01] MEDS: PREGABALIN 100 MG CAP PO SCH (09:48)
[2023-05-01] MEDS: DULoxetine HCL 60 MG CAPSULE.DR PO SCH (09:48)
[2023-05-01] MEDS: LOSARTAN 50 MG TAB PO SCH (09:48)
[2023-05-01] MEDS: MEMANTINE 10 MG TAB PO SCH (09:48)
[2023-05-01] MEDS: polyethylene glycoL 3350 17 GM POWD.PACK PO SCH (09:48)
[2023-05-01] MEDS: CHOLECALCIFEROL 25 MCG (1000 IU) TABLET PO SCH (09:48)
--- NOTE | 2023-05-01 12:21 | P.PN ---
Subjective Progress Note Date: 05/01/23 Principal diagnosis: Right leg wound and cellulitis Patient is a 72-year-old male with a past medical history pertinent for hypertension osteoarthritis history of alcohol abuse chronic back pain bilateral lower extremity neuropathy presenting to the hospital secondary to right lower extremity wound patient apparently did have a fall with laceration to the right lower extremity and concerning for cellulitis. On today's evaluation that is 05/01/2023, the patient remains to be afebrile, breathing comfortable improvement no chest pain or shortness of breath or cough no abdominal pains, no pain in the right lower leg wound. However has decreased in intensity also complain of pain to the left knee no nausea no vomiting and abdominal pain no diarrhea. No blood work was done today like culture finalized with E. coli and enterococcus sensitive to Augmentin Objective - Vital Signs Vital signs: Vital Signs Temp 98.0 F 05/01/23 07:00 Pulse 64 05/01/23 07:00 Resp 17 05/01/23 07:00 BP 115/66 05/01/23 07:00 Pulse Ox 96 05/01/23 07:00 FiO2 04/27/23 09:05 Intake & Output 04/30/23 05/01/23 05/01/23 18:59 06:59 18:59 Output Total 1190 400 Balance -1190 -400 Output: Urine 1190 400 Other: Voiding Method Urinal # Voids 300 - Exam GENERAL DESCRIPTION: Elderly male lying in bed in no distress RESPIRATORY SYSTEM: Unlabored breathing , decreased breath sounds at bases HEART: S1 S2 regular rate and rhythm ,no loud murmurs ABDOMEN: Soft , no tenderness EXTREMITIES: Patient right lower extremity wound base with left slough tissue in the surrounding redness and no foul-smelling drainage. - Labs CBC & Chem 7: 04/29/23 04:25 04/28/23 14:15 Assessment and Plan (1) Cellulitis of right leg Status: Acute Code(s): L03.115 - CELLULITIS OF RIGHT LOWER LIMB SNOMED Code(s): 324281448 (2) Ulcer of right lower extremity with fat layer exposed Status: Acute Code(s): L97.912 - NON-PRS CHR ULC UNSP PRT OF R LOW LEG W FAT LAYER EXPOSED SNOMED Code(s): 17707846 Plan: 1patient with right lower extremity traumatic wound and now concerning for secondary cellulitis likely from gram-positive skin rupali gram-negative infection less likely but not entirely excluded 2-Blood culture has been negative so far local culture growing gram-negative bacilli which has been finalized as E. coli that is a sensitive pathogen also growing enterococcus sensitivities Has been finalized Enterococcus sensitive to penicillin. 3patient has shown clinical improvement as far as cellulitis of the right lower extremity patient will finish therapy with Augmentin x7 days on discharge local wound care with Aquacel silver dressing and Rocky wrap changed every 48 hour and a close outpatient follow-up Dictation was produced using [employer] software. please excuse any grammatical, word or spelling errors. Time with Patient: Less than 30
== END 2023-05-01 12:10 | DRG 644 ==
LOC: EC 18:13 → OBSVTOIN 22:11 → 6NMEDSUR 22:11 → 1SOBS 04-25 14:49 → 4SSUR 04-26 18:05
PROVIDERS: ADMIT Internal Medicine; ATTEND Internal Medicine
DX: E22.2 Syndrome of inappropriate secretion of antidiuretic hormone (principal); E87.20 Acidosis, unspecified; L03.115 Cellulitis of right lower limb; F01.53 Vascular dementia, unspecified severity, with mood disturbance; L97.912 Non-pressure chronic ulcer of unspecified part of right lower leg with fat layer exposed; N17.9 Acute kidney failure, unspecified; Z68.41 Body mass index [BMI] 40.0-44.9, adult; G89.4 Chronic pain syndrome; F10.20 Alcohol dependence, uncomplicated; E03.9 Hypothyroidism, unspecified; R29.6 Repeated falls; E66.9 Obesity, unspecified; I11.9 Hypertensive heart disease without heart failure; B96.20 Unspecified Escherichia coli [E. coli] as the cause of diseases classified elsewhere; E78.5 Hyperlipidemia, unspecified; G25.81 Restless legs syndrome; S81.811A Laceration without foreign body, right lower leg, initial encounter; B95.2 Enterococcus as the cause of diseases classified elsewhere; G57.93 Unspecified mononeuropathy of bilateral lower limbs; I87.2 Venous insufficiency (chronic) (peripheral); M47.812 Spondylosis without myelopathy or radiculopathy, cervical region; M47.816 Spondylosis without myelopathy or radiculopathy, lumbar region; M48.061 Spinal stenosis, lumbar region without neurogenic claudication; I87.8 Other specified disorders of veins; N40.0 Benign prostatic hyperplasia without lower urinary tract symptoms; Z79.899 Other long term (current) drug therapy; Z82.49 Family history of ischemic heart disease and other diseases of the circulatory system; Z71.3 Dietary counseling and surveillance
CPT/HCPCS: 36415; 71045; 80048; 80053; 81003; 82565; 83605; 83735; 83930; 83935; 84100; 84300; 84484; 85025; 85027; 85610; 85730; 87040; 87070; 87075; 87077; 87186; 87205; 93005; 94760; 96361; 96365; 96375; 96376; 99284

== ENCOUNTER 2023-07-10 13:38 | Emergency (ER) | payer MEDICARE, OTHER ==
--- NOTE | 2023-07-10 14:07 | ED ---
Extremity Problem HPI - General Source: patient, RN notes reviewed Mode of arrival: wheelchair Limitations: no limitations <John Jauregui - Last Filed: 07/10/23 14:06> <Hien Epstein - Last Filed: 07/10/23 19:03> - General Chief complaint: Extremity Problem,Nontraumatic Stated complaint: [id number] Time Seen by Provider: 07/10/23 14:06 - History of Present Illness Initial comments: 73-year-old male presents emergency from via EMS with chief complaint of leg pain. He is a chronic pain condition. He states that he does not have his current pain meds. He was at another ER facility in which she received Dilaudid for. He states he is normally on OxyContin but does not have any currently Patient denies any trauma. (John Jauregui) The patient is a 73-year-old child with a history of chronic neuropathy and chronic leg pain presents emergency room requesting for pain medication. The patient has been to multiple hospitals looking for chronic pain medication. He was at a facility last received dilaudid but did not get a prescription. He was given referrals for pain management but could not get an appointment set up this morning. Patient denies any pain. Denies any falls or injuries. The patient states he was seen at rn pain management however she discharged him from her services because he was being nasty to her. the patinet has not followed up to retain another pain management physician. he comes in to the ER looking for a specific physician wrote him the " correct medication" at the end of May. patient stats he is not doctor shopping and that we are required to treat his chronic pain and that it is not illegal to doctor shop and try to get pain me dication from different places. (Hein Epstein) - Related Data Home Medications Medication Instructions Recorded Confirmed Losartan Potassium 50 mg PO DAILY 05/06/21 04/24/23 Atorvastatin [Lipitor] 40 mg PO DAILY 01/31/22 04/24/23 DULoxetine HCL [Cymbalta] 60 mg PO DAILY 01/31/22 04/24/23 Baclofen 10 mg PO BID PRN 04/24/23 04/24/23 Cholecalciferol [Vitamin D3 (25 50 mcg PO DAILY 04/24/23 04/24/23 Mcg = 1000 Iu)] Furosemide [Lasix] 40 mg PO DAILY 04/24/23 04/24/23 Memantine [Namenda] 10 mg PO BID 04/24/23 04/24/23 amLODIPine [Norvasc] 5 mg PO DAILY 04/24/23 04/24/23 Previous Rx's Medication Instructions Recorded HYDROcodone/APAP 10-325MG [[place] 1 tab PO Q4H PRN #18 tab 04/28/23 10-325] Nystatin 100,000 Unit/gm Oint 1 applic TOPICAL BID each 04/28/23 [Mycostatin Oint] Nystatin 100,000 Unit/gm Powd 1 applic TOPICAL BID each 04/28/23 [Mycostatin Powder] Pantoprazole [Protonix] 40 mg PO AC-BRKFST tab 04/28/23 Pregabalin [Lyrica] 200 mg PO BID #6 cap 04/28/23 Thiamine [Vitamin B-1] 100 mg PO DAILY tab 04/28/23 Triamcinolone 0.1% Ointment 1 applic TOPICAL BID each 04/28/23 [Kenalog 0.1% Ointment] fentaNYL 12MCG/HR PATCH [Duragesic 1 patch TRANSDERM Q72H #1 patch 04/28/23 12MCG/HR] Amoxic-Pot Clav 875-125Mg 1 tab PO BID 7 Days #14 tab 05/01/23 [Augmentin 875-125] polyethylene glycoL 3350 [Miralax] 17 gm PO DAILY packet 05/01/23 Ketorolac [Toradol] 10 mg PO Q8HR #15 tab 07/10/23 Lidocaine 5% Patch [Lidoderm] 1 patch TOPICAL DAILY #20 patch 07/10/23 Allergies Allergy/AdvReac Type Severity Reaction Status Date / Time No Known Allergies Allergy Verified 07/10/23 14:05 Review of Systems ROS Other: All systems not noted in ROS Statement are negative. <John Jauregui - Last Filed: 07/10/23 14:06> ROS Other: All systems not noted in ROS Statement are negative. <Hien Epstein - Last Filed: 07/10/23 19:03> ROS Statement: Those systems with pertinent positive or pertinent negative responses have been documented in the HPI. Past Medical History Past Medical History: Hypertension, Osteoarthritis (OA) Additional Past Medical History / Comment(s): ETOH abuse, chronic back pain, BLE neuropathy, lymphedema, multiple falls History of Any Multi-Drug Resistant Organisms: None Reported Past Surgical History: Back Surgery, Orthopedic Surgery, Tonsillectomy Additional Past Surgical History / Comment(s): 3 back laminectomies, hand surgery s/p trauma to reattatch tendons Past Anesthesia/Blood Transfusion Reactions: No Reported Reaction Past Psychological History: No Psychological Hx Reported Smoking Status: Never smoker Past Alcohol Use History: Daily, Heavy Past Drug Use History: None Reported - Past Family History Father Family Medical History: Hypertension Mother Family Medical History: Cancer Additional Family Medical History / Comment(s): Lung cancer Brother(s) Family Medical History: No Reported History Sister(s) Family Medical History: Hypertension Daughter(s) Family Medical History: No Reported History <John Jauregui - Last Filed: 07/10/23 14:06> General Exam Limitations: no limitations <John Jauregui - Last Filed: 07/10/23 14:06> General appearance: alert, in no apparent distress Head exam: Present: atraumatic Eye exam: Present: PERRL Neck exam: Present: normal inspection Respiratory exam: Present: normal lung sounds bilaterally Cardiovascular Exam: Present: regular rate Extremities exam: Present: full ROM Back exam: Present: full ROM Neurological exam: Present: alert, oriented X3, CN II-XII intact Psychiatric exam: Present: normal affect, normal mood Skin exam: Present: warm <Hien Epstein - Last Filed: 07/10/23 19:03> - General Exam Comments Initial Comments: Visual Physical Exam Vital signs reviewed General: Well-appearing, nontoxic, no acute distress. Head: Normocephalic, atraumatic Eyes: PERRLA, EOMI ENT: Airway patent Chest: Nonlabored breathing Skin: No visual rash, normal skin tone Neuro: Alert and oriented 3 Musculoskeletal: No gross abnormalities (John Jauregui) Course <Hien Epstein - Last Filed: 07/10/23 19:03> Vital Signs 07/10/23 07/10/23 14:02 17:18 Temperature 97.8 F 98.7 F Pulse Rate 70 72 Respiratory 18 18 Rate Blood Pressure 128/66 150/71 O2 Sat by Pulse 99 97 Oximetry - Reevaluation(s) Reevaluation #1: 07/10/23 18:57 1545 I discussed patient's management and pain request with Dr. Eckert, attending ED physician today. He said to discharge the patient and not write any further pain medication. I gave the patient a dose of Percocet prior to discharge. Again we got into an argument regarding chronic pain medication and having a rn pain management write the prescriptions. He told me that it was not illegal for him to Dr. engel and tried to get pain medication. He told me I had to treat his pain and it became to get upset and aggressive with me. (Hien Epstein) Medical Decision Making <John Jauregui - Last Filed: 07/10/23 14:06> <Hien Epstein - Last Filed: 07/10/23 19:03> - Medical Decision Making I performed a quick note portion of this chart signed John Jauregui PA-C (John Jauregui) Was pt. sent in by a medical professional or institution (, PA, SENIOR COPYWRITER, urgent care, hospital, or residential...) When possible be specific @ -[No] Did you speak to anyone other than the patient for history (EMS, parent, family, police, friend...)? What history was obtained from this source @ -[No] Did you review nursing and triage notes (agree or disagree)? Why? @ -[I reviewed and agree with nursing and triage notes] Were old charts reviewed (outside hosp., previous admission, EMS record, old EKG, old radiological studies, urgent care reports/EKG's, residential records)? Report findings @ -yes old charts were reviewed] Differential Diagnosis (chest pain, altered mental status, abdominal pain women, abdominal pain men, vaginal bleeding, weakness, fever, dyspnea, syncope, headache, dizziness, GI bleed, back pain, seizure, CVA, palpatations, mental health, musculoskeletal)? @ -[Chronic pain EKG interpreted by me (3pts min.). @ -[As above] X-rays interpreted by me (1pt min.). @ -[None done] CT interpreted by me (1pt min.). @ -[None done] U/S interpreted by me (1pt. min.). @ -[None done] What testing was considered but not performed or refused? (CT, X-rays, U/S, labs)? Why? @ -[None] What meds were considered but not given or refused? Why? @ -Counter pain medication. We will not be writing for chronic pain medication as patient is going around to different facilities looking for prescriptions. He understands he needs to follow up with pain management for further prescriptions. Did you discuss the management of the patient with other professionals (professionals i.e. DrAmerico, PA, SENIOR COPYWRITER, lab, RT, psych nurse, social work lecturer, telephonic rn, teacher, giving officer, pillowcase cutter)? Give summary @ -[No] Was smoking cessation discussed for >3mins.? @ -[No] Was critical care preformed (if so, how long)? @ -[No] Were there social determinants of health that impacted care today? How? (Homelessness, low income, unemployed, alcoholism, drug addiction, transportation, low edu. Level, literacy, decrease access to med. care, long-term, rehab)? @ -[No] Was there de-escalation of care discussed even if they declined (Discuss DNR or withdrawal of care, Hospice)? DNR status @ -[No] What co-morbidities impacted this encounter? (DM, HTN, Smoking, COPD, CAD, Cancer, CVA, ARF, Chemo, Hep., AIDS, mental health diagnosis, sleep apnea, morbid obesity)? @ -[None] Was patient admitted / discharged? Hospital course, mention meds given and route, prescriptions, significant lab abnormalities, going to OR and other pertinent info. @ -[This is a chronic pain issue and pain will have to follow up as an outpatient. he does not meet requirement for hospitalization as this is an ongoing issue. Undiagnosed new problem with uncertain prognosis? @ -[No] Drug Therapy requiring intensive monitoring for toxicity (Heparin, Nitro, Insulin, Cardizem)? @ -[No] Were any procedures done? @ -[No] Diagnosis/symptom? @ -Chronic Pain Acute, or Chronic, or Acute on Chronic? @ -[chronic pain Uncomplicated (without systemic symptoms) or Complicated (systemic symptoms)? @ -[default] Side effects of treatment? @ -[No] Exacerbation, Progression, or Severe Exacerbation? @ -[No] Poses a threat to life or bodily function? How? (Chest pain, [place], [place], pneumonia, PE, COPD, DKA, ARF, appy, cholecystitis, CVA, Diverticulitis, Homicidal, Suicidal, threat to staff... and all critical care pts) @ -[No] (Hien Epstein) Disposition <John Jauregui - Last Filed: 07/10/23 14:06> Is patient prescribed a controlled substance at d/c from ED?: No If prescribed controlled substance>3 days was MAPS reviewed?: No Time of Disposition: 16:16 <Hien Epstein - Last Filed: 07/10/23 19:03> Clinical Impression: Chronic pain Disposition: HOME SELF-CARE Condition: Fair Prescriptions: Lidocaine 5% Patch [Lidoderm] 1 patch TOPICAL DAILY #20 patch Ketorolac [Toradol] 10 mg PO Q8HR #15 tab Referrals: None,Stated [REFERRING] - 1-2 days [facility] [NON-STAFF] - 1-2 days
[2023-07-10 14:24] VITALS: RESP 18
[2023-07-10] MEDS ORDERED: oxyCODONE-APAP 10-325MG 1 EACH TAB PO STA (15:22)
[2023-07-10 17:22] VITALS: BP 150/71; PULSE 72; TEMP 98.7
== END 2023-07-10 17:19 | disposition home or self-care (01) ==
LOC: EC 13:38
DX: G89.29 Other chronic pain (principal); M79.606 Pain in leg, unspecified; I10 Essential (primary) hypertension; M19.90 Unspecified osteoarthritis, unspecified site; Z79.899 Other long term (current) drug therapy
CPT/HCPCS: 99284

== ENCOUNTER 2023-07-13 12:20 | Emergency (ER) | payer MEDICARE, OTHER ==
[2023-07-13] MEDS ORDERED: KETOROLAC 15 MG/ML 1 ML VIAL IM STA (15:47)
--- NOTE | 2023-07-13 15:47 | ED ---
General Adult HPI - General Chief complaint: Extremity Problem,Nontraumatic Stated complaint: leg pain Time Seen by Provider: 07/13/23 14:42 Source: patient, RN notes reviewed Mode of arrival: ambulatory Limitations: no limitations - History of Present Illness Initial comments: 73-year-old male presents to the emergency department with chief complaint of bilateral leg pain. He states that he was here the other day for the same symptoms. He does report a history of chronic pain and states that this is the same in nature as it typically is. He recently ran out of his pain medications and has not followed up with his doctor for refills. He does state that he is supposed to be on gabapentin and [place] 10 he does not have these medications. He does not follow with the pain clinic. He denies fever, chills, nausea, vomiting, chest pain, shortness of breath. - Related Data Home Medications Medication Instructions Recorded Confirmed Losartan Potassium 50 mg PO DAILY 05/06/21 04/24/23 Atorvastatin [Lipitor] 40 mg PO DAILY 01/31/22 04/24/23 DULoxetine HCL [Cymbalta] 60 mg PO DAILY 01/31/22 04/24/23 Baclofen 10 mg PO BID PRN 04/24/23 04/24/23 Cholecalciferol [Vitamin D3 (25 50 mcg PO DAILY 04/24/23 04/24/23 Mcg = 1000 Iu)] Furosemide [Lasix] 40 mg PO DAILY 04/24/23 04/24/23 Memantine [Namenda] 10 mg PO BID 04/24/23 04/24/23 amLODIPine [Norvasc] 5 mg PO DAILY 04/24/23 04/24/23 Previous Rx's Medication Instructions Recorded HYDROcodone/APAP 10-325MG [[place] 1 tab PO Q4H PRN #18 tab 04/28/23 10-325] Nystatin 100,000 Unit/gm Oint 1 applic TOPICAL BID each 04/28/23 [Mycostatin Oint] Nystatin 100,000 Unit/gm Powd 1 applic TOPICAL BID each 04/28/23 [Mycostatin Powder] Pantoprazole [Protonix] 40 mg PO AC-BRKFST tab 04/28/23 Pregabalin [Lyrica] 200 mg PO BID #6 cap 04/28/23 Thiamine [Vitamin B-1] 100 mg PO DAILY tab 04/28/23 Triamcinolone 0.1% Ointment 1 applic TOPICAL BID each 04/28/23 [Kenalog 0.1% Ointment] fentaNYL 12MCG/HR PATCH [Duragesic 1 patch TRANSDERM Q72H #1 patch 04/28/23 12MCG/HR] Amoxic-Pot Clav 875-125Mg 1 tab PO BID 7 Days #14 tab 05/01/23 [Augmentin 875-125] polyethylene glycoL 3350 [Miralax] 17 gm PO DAILY packet 05/01/23 Ketorolac [Toradol] 10 mg PO Q8HR #15 tab 07/10/23 Lidocaine 5% Patch [Lidoderm] 1 patch TOPICAL DAILY #20 patch 07/10/23 Allergies Allergy/AdvReac Type Severity Reaction Status Date / Time No Known Allergies Allergy Verified 07/13/23 12:50 Review of Systems ROS Statement: Those systems with pertinent positive or pertinent negative responses have been documented in the HPI. ROS Other: All systems not noted in ROS Statement are negative. Past Medical History Past Medical History: Hypertension, Osteoarthritis (OA) Additional Past Medical History / Comment(s): ETOH abuse, chronic back pain, BLE neuropathy, lymphedema, multiple falls History of Any Multi-Drug Resistant Organisms: None Reported Past Surgical History: Back Surgery, Orthopedic Surgery, Tonsillectomy Additional Past Surgical History / Comment(s): 3 back laminectomies, hand surgery s/p trauma to reattatch tendons Past Anesthesia/Blood Transfusion Reactions: No Reported Reaction Past Psychological History: No Psychological Hx Reported Smoking Status: Never smoker Past Alcohol Use History: Daily, Heavy Past Drug Use History: None Reported - Past Family History Father Family Medical History: Hypertension Mother Family Medical History: Cancer Additional Family Medical History / Comment(s): Lung cancer Brother(s) Family Medical History: No Reported History Sister(s) Family Medical History: Hypertension Daughter(s) Family Medical History: No Reported History General Exam Limitations: no limitations General appearance: alert, in no apparent distress Head exam: Present: atraumatic, normocephalic, normal inspection Eye exam: Present: normal appearance, PERRL, EOMI. Absent: scleral icterus, conjunctival injection, periorbital swelling ENT exam: Present: normal exam, mucous membranes moist Neck exam: Present: normal inspection. Absent: tenderness, meningismus, lymphadenopathy Respiratory exam: Present: normal lung sounds bilaterally. Absent: respiratory distress, wheezes, rales, rhonchi, stridor Cardiovascular Exam: Present: regular rate, normal rhythm, normal heart sounds. Absent: systolic murmur, diastolic murmur, rubs, gallop, clicks Extremities exam: Present: normal inspection, full ROM, normal capillary refill, other (DP, PT pulses 2+, nonerythematous, no warmth). Absent: pedal edema, joint swelling, calf tenderness Neurological exam: Present: alert, oriented X3 Psychiatric exam: Present: normal affect, normal mood Skin exam: Present: warm, dry, intact, normal color. Absent: rash Course Vital Signs 07/13/23 07/13/23 07/13/23 12:47 15:50 17:03 Temperature 98.5 F 98.4 F 98.1 F Pulse Rate 70 75 72 Respiratory 18 16 18 Rate Blood Pressure 146/64 147/80 140/78 O2 Sat by Pulse 99 98 98 Oximetry Medical Decision Making - Medical Decision Making Was pt. sent in by a medical professional or institution (, PA, VALVE AND REGULATOR REPAIRER, urgent c are, hospital, or custodial...) When possible be specific @ -No Did you speak to anyone other than the patient for history (EMS, parent, family, police, friend...)? What history was obtained from this source @ -No Did you review nursing and triage notes (agree or disagree)? Why? @ -I reviewed and agree with nursing and triage notes Were old charts reviewed (outside hosp., previous admission, EMS record, old EKG, old radiological studies, urgent care reports/EKG's, custodial records)? Report findings @ -No old charts were reviewed Differential Diagnosis (chest pain, altered mental status, abdominal pain women, abdominal pain men, vaginal bleeding, weakness, fever, dyspnea, syncope, headache, dizziness, GI bleed, back pain, seizure, CVA, palpatations, mental health, musculoskeletal)? @ -Differential Musculoskeletal Muscular strain, contusion, ligament sprain, fracture, arthritis, septic arthritis, bursitis, cellulitis, muscle spasm, nerve compression, DVT, arterial occlusion, herpes zoster, electrolyte abnormality, tumor.... This is not meant to be in all inclusive list EKG interpreted by me (3pts min.). @ -None X-rays interpreted by me (1pt min.). @ -None done CT interpreted by me (1pt min.). @ -None done U/S interpreted by me (1pt. min.). @ -None done What testing was considered but not performed or refused? (CT, X-rays, U/S, labs)? Why? @ -Imaging considered this is a chronic ongoing issue and he has not had any change in the character of this pain. What meds were considered but not given or refused? Why? @ -None Did you discuss the management of the patient with other professionals (professionals i.e. DrAmerico, PA, VALVE AND REGULATOR REPAIRER, lab, RT, psych nurse, social studies department chair, pump installation and servicer, teacher, engineering officer, case checker)? Give summary @ -No Was smoking cessation discussed for >3mins.? @ -No Was critical care preformed (if so, how long)? @ -No Were there social determinants of health that impacted care today? How? (Homelessness, low income, unemployed, alcoholism, drug addiction, transportation, low edu. Level, literacy, decrease access to med. care, retirement, rehab)? @ -No Was there de-escalation of care discussed even if they declined (Discuss DNR or withdrawal of care, Hospice)? DNR status @ -No What co-morbidities impacted this encounter? (DM, HTN, Smoking, COPD, CAD, Cancer, CVA, ARF, Chemo, Hep., AIDS, mental health diagnosis, sleep apnea, morbid obesity)? @ -None Was patient admitted / discharged? Hospital course, mention meds given and route, prescriptions, significant lab abnormalities, going to OR and other pertinent info. @ -Discharged. Patient presented emergency department chief complaint of bilateral leg pain which is chronic for him. He states that this is not having any change but he has ran out of his pain medications. Patient given medication for pain control in the ED. Patient given information for pain clinic. Advised to follow-up with his PCP in the pain clinic. Patient stable at time of discharge. Case discussed with Dr. Floyd. Undiagnosed new problem with uncertain prognosis? @ -No Drug Therapy requiring intensive monitoring for toxicity (Heparin, Nitro, Insulin, Cardizem)? @ -No Were any procedures done? @ -No Diagnosis/symptom? @ -Chronic leg pain Acute, or Chronic, or Acute on Chronic? @ -Acute Uncomplicated (without systemic symptoms) or Complicated (systemic symptoms)? @ -uncomplicated Side effects of treatment? @ -No Exacerbation, Progression, or Severe Exacerbation? @ -No Poses a threat to life or bodily function? How? (Chest pain, [place], [place], pneumonia, PE, COPD, DKA, ARF, appy, cholecystitis, CVA, Diverticulitis, Homicidal, [place], threat to staff... and all critical care pts) @ -No Disposition Clinical Impression: Chronic leg pain Disposition: HOME SELF-CARE Condition: Stable Instructions (If sedation given, give patient instructions): Pain Management (ED) Additional Instructions: Please follow up with the pain management clinic and your primary care provider. Return to the emergency department for new or worsening symptoms. Is patient prescribed a controlled substance at d/c from ED?: No Referrals: Johnny Lane MD [Primary Care Provider] - 1-2 days [facility] [NON-STAFF] - 1-2 days
[2023-07-13] MEDS ORDERED: LIDOCAINE 5% PATCH TOPICAL STA (15:48)
[2023-07-13] MEDS ORDERED: HYDROmorphone 1 MG/ML 1 ML SYRINGE IM STA (15:48)
[2023-07-13 17:09] VITALS: BP 140/78; PULSE 72; RESP 18; TEMP 98.1
== END 2023-07-13 17:06 | disposition home or self-care (01) ==
LOC: EC 12:20
DX: G89.29 Other chronic pain (principal); M79.605 Pain in left leg; M79.604 Pain in right leg; I10 Essential (primary) hypertension; M19.90 Unspecified osteoarthritis, unspecified site; Z79.899 Other long term (current) drug therapy
CPT/HCPCS: 99283; 96372 ×2; J1170; J1885

== ENCOUNTER 2023-07-14 02:02 | Emergency (ER) | payer MEDICARE, OTHER ==
[2023-07-14 02:16] VITALS: TEMP 97.8
[2023-07-14] MEDS ORDERED: ASPIRIN 81 MG PO STA (02:37)
[2023-07-14 03:28] LABS: Basophils % (A) 0 %; Eosinophils # (A) 0.3 k/uL (0-0.7); Eosinophils % (A) 2 %; HCT 37.8 % (39.0-53.0); HGB 12.4 gm/dL (13.0-17.5); Lymphocytes # (A) 1.9 k/uL (1.0-4.8); Lymphocytes % (A) 16 %; MCH 31.3 pg (25.0-35.0); MCHC 32.8 g/dL (31.0-37.0); MCV 95.6 fL (80.0-100.0); Mean Platelet Volume 8.1; Monocytes # (A) 0.8 k/uL (0-1.0); Monocytes % (A) 6 %; Neutrophils # (A) 8.5 k/uL (1.3-7.7); Neutrophils % (A) 72 %; Platelet Count 291 k/uL (150-450); RBC 3.95 m/uL (4.30-5.90); RDW 13.4 % (11.5-15.5); WBC 11.8 k/uL (3.8-10.6)
[2023-07-14 03:39] LABS: ALT 17 U/L (4-49); AST 23 U/L (17-59); African American GFR (CKD) >90 (>60 ml/min/1.73 sqM); Albumin 3.7 g/dL (3.5-5.0); Alkaline Phosphatase 65 U/L (38-126); Anion Gap 8 mmol/L; Blood Urea Nitrogen 19 mg/dL (9-20); Calcium 9.4 mg/dL (8.4-10.2); Carbon Dioxide 25 mmol/L (22-30); Chloride 106 mmol/L (98-107); Glucose 112 mg/dL (74-99); Non-African American GFR(CKD) >90 (>60 ml/min/1.73 sqM); Potassium 4.1 mmol/L (3.5-5.1); Sodium 139 mmol/L (137-145); Total Bilirubin 0.5 mg/dL (0.2-1.3); Total Protein 6.1 g/dL (6.3-8.2)
[2023-07-14] MEDS ORDERED: KETOROLAC 15 MG/ML 1 ML VIAL IM STA (04:52)
--- NOTE | 2023-07-14 04:59 | ED ---
Extremity Problem HPI - General Chief complaint: Extremity Problem,Nontraumatic Stated complaint: Left Arm Pain Time Seen by Provider: 07/14/23 02:17 Source: patient, EMS Mode of arrival: EMS - History of Present Illness Initial comments: 73-year-old male history of chronic pain and drug-seeking behavior presenting with chief complaint of left arm pain. Patient states that he has had this pain in the left arm before. Located primarily in the upper arm. No injury or tr auma. No radiculopathy. No neck pain. No numbness or tingling. No weakness. Patient was seen at [facility] earlier today for his bilateral chronic leg pain and states that he forgot to mention his arm. He denies chest pain, difficulty breathing, palpitations, nausea, vomiting, abdominal pain, dizziness. - Related Data Home Medications Medication Instructions Recorded Confirmed Losartan Potassium 50 mg PO DAILY 05/06/21 04/24/23 Atorvastatin [Lipitor] 40 mg PO DAILY 01/31/22 04/24/23 DULoxetine HCL [Cymbalta] 60 mg PO DAILY 01/31/22 04/24/23 Baclofen 10 mg PO BID PRN 04/24/23 04/24/23 Cholecalciferol [Vitamin D3 (25 50 mcg PO DAILY 04/24/23 04/24/23 Mcg = 1000 Iu)] Furosemide [Lasix] 40 mg PO DAILY 04/24/23 04/24/23 Memantine [Namenda] 10 mg PO BID 04/24/23 04/24/23 amLODIPine [Norvasc] 5 mg PO DAILY 04/24/23 04/24/23 Previous Rx's Medication Instructions Recorded HYDROcodone/APAP 10-325MG [[place] 1 tab PO Q4H PRN #18 tab 04/28/23 10-325] Nystatin 100,000 Unit/gm Oint 1 applic TOPICAL BID each 04/28/23 [Mycostatin Oint] Nystatin 100,000 Unit/gm Powd 1 applic TOPICAL BID each 04/28/23 [Mycostatin Powder] Pantoprazole [Protonix] 40 mg PO AC-BRKFST tab 04/28/23 Pregabalin [Lyrica] 200 mg PO BID #6 cap 04/28/23 Thiamine [Vitamin B-1] 100 mg PO DAILY tab 04/28/23 Triamcinolone 0.1% Ointment 1 applic TOPICAL BID each 04/28/23 [Kenalog 0.1% Ointment] fentaNYL 12MCG/HR PATCH [Duragesic 1 patch TRANSDERM Q72H #1 patch 04/28/23 12MCG/HR] Amoxic-Pot Clav 875-125Mg 1 tab PO BID 7 Days #14 tab 05/01/23 [Augmentin 875-125] polyethylene glycoL 3350 [Miralax] 17 gm PO DAILY packet 05/01/23 Ketorolac [Toradol] 10 mg PO Q8HR #15 tab 07/10/23 Lidocaine 5% Patch [Lidoderm] 1 patch TOPICAL DAILY #20 patch 07/10/23 oxyCODONE-APAP 10-325MG [Percocet 1 tab PO Q6HR PRN 3 Days #12 tab 07/14/23 10-325 mg] Allergies Allergy/AdvReac Type Severity Reaction Status Date / Time No Known Allergies Allergy Verified 07/14/23 18:33 Review of Systems ROS Statement: Those systems with pertinent positive or pertinent negative responses have been documented in the HPI. ROS Other: All systems not noted in ROS Statement are negative. Past Medical History Past Medical History: Hypertension, Osteoarthritis (OA) Additional Past Medical History / Comment(s): ETOH abuse, chronic back pain, BLE neuropathy, lymphedema, multiple falls History of Any Multi-Drug Resistant Organisms: None Reported Past Surgical History: Back Surgery, Orthopedic Surgery, Tonsillectomy Additional Past Surgical History / Comment(s): 3 back laminectomies, hand surgery s/p trauma to reattatch tendons Past Anesthesia/Blood Transfusion Reactions: No Reported Reaction Past Psychological History: No Psychological Hx Reported Smoking Status: Never smoker Past Alcohol Use History: Daily, Heavy Past Drug Use History: None Reported - Past Family History Father Family Medical History: Hypertension Mother Family Medical History: Cancer Additional Family Medical History / Comment(s): Lung cancer Brother(s) Family Medical History: No Reported History Sister(s) Family Medical History: Hypertension Daughter(s) Family Medical History: No Reported History General Exam Limitations: no limitations General appearance: alert, in no apparent distress Head exam: Present: atraumatic, normocephalic, normal inspection Eye exam: Present: normal appearance, EOMI Neck exam: Present: normal inspection, full ROM Respiratory exam: Present: normal lung sounds bilaterally. Absent: respiratory distress, wheezes, rales, rhonchi, stridor Cardiovascular Exam: Present: regular rate, normal rhythm, normal heart sounds. Absent: systolic murmur, diastolic murmur, rubs, gallop, clicks Left Shoulder Exam: Present: normal inspection, full ROM. Absent: tenderness, swelling, ecchymosis, deformity, erythema Upper Arm exam: Present: normal inspection, full ROM, tenderness. Absent: swelling, ecchymosis, deformity, erythema Elbow exam: Present: normal inspection, full ROM. Absent: tenderness, swelling, ecchymosis, deformity, erythema Forearm Wrist exam: Present: normal inspection, full ROM. Absent: tenderness, swelling, ecchymosis, deformity, erythema Vascular: Absent: vascular compromise Neurological exam: Present: alert, oriented X3 Psychiatric exam: Present: normal affect, normal mood Skin exam: Present: warm, dry, intact, normal color. Absent: rash Course Vital Signs 07/14/23 07/14/23 07/14/23 02:06 04:00 05:13 Temperature 97.8 F Pulse Rate 74 71 69 Respiratory 19 18 17 Rate Blood Pressure 150/60 164/69 155/77 O2 Sat by Pulse 98 100 100 Oximetry Medical Decision Making - Medical Decision Making Was pt. sent in by a medical professional or institution (NICHOLE Lange, PRINCIPAL SECRETARY, urgent care, hospital, or detention...) When possible be specific @ -No Did you speak to anyone other than the patient for history (EMS, parent, family, police, friend...)? What history was obtained from this source @ -No Did you review nursing and triage notes (agree or disagree)? Why? @ -I reviewed and agree with nursing and triage notes Were old charts reviewed (outside hosp., previous admission, EMS record, old EKG, old radiological studies, urgent care reports/EKG's, detention records)? Report findings @ -No old charts were reviewed Differential Diagnosis (chest pain, altered mental status, abdominal pain women, abdominal pain men, vaginal bleeding, weakness, fever, dyspnea, syncope, headache, dizziness, GI bleed, back pain, seizure, CVA, palpatations, mental health, musculoskeletal)? @ -Differential Musculoskeletal Muscular strain, contusion, ligament sprain, fracture, arthritis, septic arth ritis, bursitis, cellulitis, muscle spasm, nerve compression, DVT, arterial occlusion, herpes zoster, electrolyte abnormality, tumor.... This is not meant to be in all inclusive list EKG interpreted by me (3pts min.). @ -As above X-rays interpreted by me (1pt min.). @ -Negative humerus x-ray CT interpreted by me (1pt min.). @ -None done U/S interpreted by me (1pt. min.). @ -None done What testing was considered but not performed or refused? (CT, X-rays, U/S, labs)? Why? @ -None What meds were considered but not given or refused? Why? @ -None Did you discuss the management of the patient with other professionals (professionals i.e. , PA, PRINCIPAL SECRETARY, lab, RT, psych nurse, social work instructor, pocket operator, teacher, patrol community service officer, manager case)? Give summary @ -No Was smoking cessation discussed for >3mins.? @ -No Was critical care preformed (if so, how long)? @ -No Were there social determinants of health that impacted care today? How? (Homeles sness, low income, unemployed, alcoholism, drug addiction, transportation, low edu. Level, literacy, decrease access to med. care, retirement, rehab)? @ -No Was there de-escalation of care discussed even if they declined (Discuss DNR or withdrawal of care, Hospice)? DNR status @ -No What co-morbidities impacted this encounter? (DM, HTN, Smoking, COPD, CAD, Cancer, CVA, ARF, Chemo, Hep., AIDS, mental health diagnosis, sleep apnea, morbid obesity)? @ -None Was patient admitted / discharged? Hospital course, mention meds given and route, prescriptions, significant lab abnormalities, going to OR and other pertinent info. @ -73-year-old male presenting with chief complaint of left arm pain. Patient has history of chronic pain and states that he has had this pain before. No chest pain or difficulty breathing. No injury or trauma. Physical exam was conducted, he is neurovascularly intact. EKG shows no ischemic changes and lab work is essentially unremarkable. Negative x-ray. Patient states "I'm going to need a couple of [place] 10's" I declined his request. He is given Toradol instructed to follow-up with his PCP. Follow-up with PCP. Report back to ER with any new or worsening symptoms. Discussed return parameters and answered all questions. Patient conveyed verbal understanding and agreed to the plan. I discussed this case in detail with my attending Dr. Eckert Undiagnosed new problem with uncertain prognosis? @ -No Drug Therapy requiring intensive monitoring for toxicity (Heparin, Nitro, Insulin, Cardizem)? @ -No Were any procedures done? @ -No Diagnosis/symptom? @ -Chronic pain Acute, or Chronic, or Acute on Chronic? @ -Acute Uncomplicated (without systemic symptoms) or Complicated (systemic symptoms)? @ -Uncomplicated Side effects of treatment? @ -No Exacerbation, Progression, or Severe Exacerbation? @ -No Poses a threat to life or bodily function? How? (Chest pain, [place], [place], pneumonia, PE, COPD, DKA, ARF, appy, cholecystitis, CVA, Diverticulitis, Homicidal, Suicidal, threat to staff... and all critical care pts) @ -No - Lab Data Result diagrams: 07/14/23 02:50 07/14/23 02:50 Lab Results 07/14/23 07/14/23 07/14/23 Range/Units 02:50 02:50 02:50 WBC 11.8 H (3.8-10.6) k/uL RBC 3.95 L (4.30-5.90) m/uL Hgb 12.4 L (13.0-17.5) gm/dL Hct 37.8 L (39.0-53.0) % MCV 95.6 (80.0-100.0) fL MCH 31.3 (25.0-35.0) pg MCHC 32.8 (31.0-37.0) g/dL RDW 13.4 (11.5-15.5) % Plt Count 291 (150-450) k/uL MPV 8.1 Neutrophils % 72 % Lymphocytes % 16 % Monocytes % 6 % Eosinophils % 2 % Basophils % 0 % Neutrophils # 8.5 H (1.3-7.7) k/uL Lymphocytes # 1.9 (1.0-4.8) k/uL Monocytes # 0.8 (0-1.0) k/uL Eosinophils # 0.3 (0-0.7) k/uL Basophils # 0.0 (0-0.2) k/uL Sodium 139 (137-145) mmol/L Potassium 4.1 (3.5-5.1) mmol/L Chloride 106 (98-107) mmol/L Carbon Dioxide 25 (22-30) mmol/L Anion Gap 8 mmol/L BUN 19 (9-20) mg/dL Creatinine 0.62 L (0.66-1.25) mg/dL Est GFR (CKD-EPI)AfAm >90 (>60 ml/min/1.73 sqM) Est GFR (CKD-EPI)NonAf >90 (>60 ml/min/1.73 sqM) Glucose 112 H (74-99) mg/dL Calcium 9.4 (8.4-10.2) mg/dL Total Bilirubin 0.5 (0.2-1.3) mg/dL AST 23 (17-59) U/L ALT 17 (4-49) U/L Alkaline Phosphatase 65 (38-126) U/L Troponin I <0.012 (0.000-0.034) ng/mL Total Protein 6.1 L (6.3-8.2) g/dL Albumin 3.7 (3.5-5.0) g/dL Disposition Clinical Impression: Arm pain, Chronic pain Disposition: HOME SELF-CARE Condition: Good Instructions (If sedation given, give patient instructions): Pain Management in Older Adults (DC), Arm Pain (ED) Additional Instructions: Follow-up with PCP. Report back to ER with any new or worsening symptoms. Is patient prescribed a controlled substance at d/c from ED?: No Referrals: Johnny Lane MD [Primary Care Provider] - 1-2 days Time of Disposition: 04:59
[2023-07-14 05:23] VITALS: BP 155/77; PULSE 69; RESP 17
--- NOTE | 2023-07-14 06:34 | XR ---
EXAM: XR Left Humerus, 2 or More Views CLINICAL HISTORY: ITS.REASON XR Reason: pain, atraumatic TECHNIQUE: Frontal and lateral views of the left humerus. COMPARISON: No relevant prior studies available. FINDINGS: Bones/joints: Unremarkable. No acute fracture. No dislocation. Soft tissues: Unremarkable. IMPRESSION: Normal left humerus x-rays.
== END 2023-07-14 05:14 | disposition home or self-care (01) ==
LOC: EC 02:02
DX: G89.29 Other chronic pain (principal); M79.602 Pain in left arm; I10 Essential (primary) hypertension; M19.90 Unspecified osteoarthritis, unspecified site; Z79.1 Long term (current) use of non-steroidal anti-inflammatories (NSAID); Z79.899 Other long term (current) drug therapy
CPT/HCPCS: 36415; 93005; 80053; 84484; 85025; 73060; 99285; 96372; J1885

== ENCOUNTER 2023-07-14 17:24 | Emergency (ER) | payer MEDICARE, OTHER ==
[2023-07-14 18:44] VITALS: TEMP 98.5
[2023-07-14] MEDS ORDERED: KETOROLAC 15 MG/ML 1 ML VIAL IM STA (19:35)
--- NOTE | 2023-07-14 19:57 | ED ---
Extremity Problem HPI - General Chief complaint: Extremity Problem,Nontraumatic Stated complaint: pain Time Seen by Provider: 07/14/23 19:02 Source: patient Mode of arrival: ambulatory Limitations: no limitations - History of Present Illness Initial comments: A 73-year-old male presenting to the ED with a chief complaint of bilateral leg pain. Patient states that he has a history of neuropathy and has been unable to follow with his primary care provider to get refills on his medications. States he is normally prescribed oxycodone and gabapentin. Records reviewed show patient was here 2 days ago and yesterday for the same complaint. At these times, patient was not provided any medications at discharge. Review of MAPS shows 120 oxycodone 10 prescribed on 06/10/23 and 9 oxycodone 10 prescribed on 07/10/23. Denies leg swelling. Denies chest pain or shortness of breath. No other complaints. - Related Data Home Medications Medication Instructions Recorded Confirmed Losartan Potassium 50 mg PO DAILY 05/06/21 04/24/23 Atorvastatin [Lipitor] 40 mg PO DAILY 01/31/22 04/24/23 DULoxetine HCL [Cymbalta] 60 mg PO DAILY 01/31/22 04/24/23 Baclofen 10 mg PO BID PRN 04/24/23 04/24/23 Cholecalciferol [Vitamin D3 (25 50 mcg PO DAILY 04/24/23 04/24/23 Mcg = 1000 Iu)] Furosemide [Lasix] 40 mg PO DAILY 04/24/23 04/24/23 Memantine [Namenda] 10 mg PO BID 04/24/23 04/24/23 amLODIPine [Norvasc] 5 mg PO DAILY 04/24/23 04/24/23 Previous Rx's Medication Instructions Recorded HYDROcodone/APAP 10-325MG [[place] 1 tab PO Q4H PRN #18 tab 04/28/23 10-325] Nystatin 100,000 Unit/gm Oint 1 applic TOPICAL BID each 04/28/23 [Mycostatin Oint] Nystatin 100,000 Unit/gm Powd 1 applic TOPICAL BID each 04/28/23 [Mycostatin Powder] Pantoprazole [Protonix] 40 mg PO AC-BRKFST tab 04/28/23 Pregabalin [Lyrica] 200 mg PO BID #6 cap 04/28/23 Thiamine [Vitamin B-1] 100 mg PO DAILY tab 04/28/23 Triamcinolone 0.1% Ointment 1 applic TOPICAL BID each 04/28/23 [Kenalog 0.1% Ointment] fentaNYL 12MCG/HR PATCH [Duragesic 1 patch TRANSDERM Q72H #1 patch 04/28/23 12MCG/HR] Amoxic-Pot Clav 875-125Mg 1 tab PO BID 7 Days #14 tab 05/01/23 [Augmentin 875-125] polyethylene glycoL 3350 [Miralax] 17 gm PO DAILY packet 05/01/23 Ketorolac [Toradol] 10 mg PO Q8HR #15 tab 07/10/23 Lidocaine 5% Patch [Lidoderm] 1 patch TOPICAL DAILY #20 patch 07/10/23 oxyCODONE-APAP 10-325MG [Percocet 1 tab PO Q6HR PRN 3 Days #12 tab 07/14/23 10-325 mg] Allergies Allergy/AdvReac Type Severity Reaction Status Date / Time No Known Allergies Allergy Verified 07/14/23 18:33 Review of Systems ROS Statement: Those systems with pertinent positive or pertinent negative responses have been documented in the HPI. ROS Other: All systems not noted in ROS Statement are negative. Past Medical History Past Medical History: Hypertension, Osteoarthritis (OA) Additional Past Medical History / Comment(s): ETOH abuse, chronic back pain, BLE neuropathy, lymphedema, multiple falls History of Any Multi-Drug Resistant Organisms: None Reported Past Surgical History: Back Surgery, Orthopedic Surgery, Tonsillectomy Additional Past Surgical History / Comment(s): 3 back laminectomies, hand surgery s/p trauma to reattatch tendons Past Anesthesia/Blood Transfusion Reactions: No Reported Reaction Past Psychological History: No Psychological Hx Reported Smoking Status: Never smoker Past Alcohol Use History: Daily, Heavy Past Drug Use History: None Reported - Past Family History Father Family Medical History: Hypertension Mother Family Medical History: Cancer Additional Family Medical History / Comment(s): Lung cancer Brother(s) Family Medical History: No Reported History Sister(s) Family Medical History: Hypertension Daughter(s) Family Medical History: No Reported History General Exam Limitations: no limitations General appearance: alert, in no apparent distress Neck exam: Present: normal inspection Respiratory exam: Present: normal lung sounds bilaterally Cardiovascular Exam: Present: regular rate, normal rhythm GI/Abdominal exam: Present: soft Extremities exam: Present: other (Strength and sensation equal and intact in bilateral lower extremities. DP/PT pulses 2+.) Neurological exam: Present: alert, oriented X3 Skin exam: Present: warm, dry Course Vital Signs 07/14/23 18:30 Temperature 98.5 F Pulse Rate 88 Respiratory 18 Rate Blood Pressure 125/65 O2 Sat by Pulse 99 Oximetry Medical Decision Making - Medical Decision Making Was pt. sent in by a medical professional or institution (, PA, [employer]SE [employer], urgent care, hospital, or snf...) When possible be specific @ -No Did you speak to anyone other than the patient for history (EMS, parent, family, police, friend...)? What history was obtained from this source @ -No Did you review nursing and triage notes (agree or disagree)? Why? @ -I reviewed and agree with nursing and triage notes Were old charts reviewed (outside hosp., previous admission, EMS record, old EKG, old radiological studies, urgent care reports/EKG's, snf records)? Report findings @ -Prior records reviewed. For further details please see HPI. Differential Diagnosis (chest pain, altered mental status, abdominal pain women, abdominal pain men, vaginal bleeding, weakness, fever, dyspnea, syncope, headache, dizziness, GI bleed, back pain, seizure, CVA, palpatations, mental health, musculoskeletal)? @ -Differential Musculoskeletal Muscular strain, contusion, ligament sprain, fracture, arthritis, septic arthritis, bursitis, cellulitis, muscle spasm, nerve compression, DVT, arterial occlusion, herpes zoster, electrolyte abnormality, tumor.... This is not meant to be in all inclusive list EKG interpreted by me (3pts min.). @ -As above X-rays interpreted by me (1pt min.). @ -None done CT interpreted by me (1pt min.). @ -None done U/S interpreted by me (1pt. min.). @ -None done What testing was considered but not performed or refused? (CT, X-rays, U/S, labs)? Why? @ -None What meds were considered but not given or refused? Why? @ -None Did you discuss the management of the patient with other professionals (professionals i.e. , PA, [employer], lab, RT, psych nurse, social science teacher, prototype model maker, teacher, medical officer psychiatry, correctional counselor/case manager)? Give summary @ -No Was smoking cessation discussed for >3mins.? @ -No Was critical care preformed (if so, how long)? @ -No Were there social determinants of health that impacted care today? How? (Homeles sness, low income, unemployed, alcoholism, drug addiction, transportation, low edu. Level, literacy, decrease access to med. care, half-way, rehab)? @ -No Was there de-escalation of care discussed even if they declined (Discuss DNR or withdrawal of care, Hospice)? DNR status @ -No What co-morbidities impacted this encounter? (DM, HTN, Smoking, COPD, CAD, Cancer, CVA, ARF, Chemo, Hep., AIDS, mental health diagnosis, sleep apnea, morbid obesity)? @ -None Was patient admitted / discharged? Hospital course, mention meds given and route, prescriptions, significant lab abnormalities, going to OR and other pertinent info. @ -Discharged A 73-year-old male presenting the ED with chief complaint of bilateral lower leg pain. Review shows patient here for the last 2 days with the same complaints. Patient ports no new symptoms and reports pain is consistent with history of neuropathy. Exam shows no pitting edema with good DP/PT pulses and good strength and sensation bilaterally. Provided short course of oxycodone and referral to see Dr. Milligan of pain management. Discharged home in stable condition. Discussed return precautions patient verbalizes agreement. Undiagnosed new problem with uncertain prognosis? @ -No Drug Therapy requiring intensive monitoring for toxicity (Heparin, Nitro, Insulin, Cardizem)? @ -No Were any procedures done? @ -No Diagnosis/symptom? @ -Bilateral lower extremity pain Acute, or Chronic, or Acute on Chronic? @ -Acute On chronic Uncomplicated (without systemic symptoms) or Complicated (systemic symptoms)? @ -Uncomplicated Side effects of treatment? @ -No Exacerbation, Progression, or Severe Exacerbation? @ -No Poses a threat to life or bodily function? How? (Chest pain, [place], [place], pneumonia, PE, COPD, DKA, ARF, appy, cholecystitis, CVA, Diverticulitis, Homicidal, Suicidal, threat to staff... and all critical care pts) @ -No Disposition Clinical Impression: Bilateral lower extremity pain Disposition: HOME SELF-CARE Condition: Good Additional Instructions: Please return to the Emergency Department if symptoms worsen or any other concerns. Please follow up with your primary care provider/pain management. Prescriptions: oxyCODONE-APAP 10-325MG [Percocet 10-325 mg] 1 tab PO Q6HR PRN 3 Days #12 tab PRN Reason: Pain Is patient prescribed a controlled substance at d/c from ED?: Yes When asked, does pt state using other controlled substances?: Yes If prescribed controlled substance>3 days was MAPS reviewed?: Prescribed <3 Days If opioid is for acute pain is fill amount 7 days or less?: Yes If Rx opioid, was Start Talking consent form obtained?: Yes Referrals: None,Stated [Primary Care Provider] - 1-2 days Bryan Milligan MD [STAFF PHYSICIAN] - 1-2 days Time of Disposition: 20:00
[2023-07-14 20:43] VITALS: BP 118/73; PULSE 76; RESP 20
== END 2023-07-14 20:32 | disposition home or self-care (01) ==
LOC: EC 17:24
DX: M79.605 Pain in left leg (principal); M79.604 Pain in right leg; I10 Essential (primary) hypertension; M19.90 Unspecified osteoarthritis, unspecified site; Z79.1 Long term (current) use of non-steroidal anti-inflammatories (NSAID); Z79.899 Other long term (current) drug therapy
CPT/HCPCS: 99284; 96372; J1885

== ENCOUNTER 2024-01-05 11:43 | Observation (INO) | payer MEDICARE, OTHER ==
--- NOTE | 2024-01-05 12:04 | ED ---
Extremity Problem HPI - General Source: patient, family, RN notes reviewed Mode of arrival: wheelchair Limitations: no limitations <Tasha Meade - Last Filed: 01/05/24 12:02> - General Source: patient, family, RN notes reviewed Limitations: no limitations <Evin Fischer - Last Filed: 01/05/24 14:35> - General Chief complaint: Recheck/Abnormal Lab/Rx Stated complaint: wounds Time Seen by Provider: 01/05/24 12:02 - History of Present Illness Initial comments: Quick Note: This is a 73-year-old male who presents to the emergency department for wounds to the right leg. States that these have been there for several weeks. The wounds are getting increasingly painful. Not currently taking any antibiotics. He followed up with Dr. Lane, who advised he come to the emergency department due to concern for infection. Additionally, patient has been dealing with right sided jaw pain since yesterday. Also has pain in the ri ght shoulder and neck. His daughter does note problems with dental infections, which she believes to be contributing to the jaw pain. Denies any chest pain or shortness of breath. (Tasha Meade) Patient is a 73-year-old male presenting to the emergency department for wounds to the right leg. Daughter is present and provides majority of history. Wounds have been present for several months now. Patient did see his doctor today and was advised to come to the emergency department for admission. Patient has had some right arm weakness waxing and waning over the past 2 weeks. Symptoms seem somewhat improved today per daughter. Patient denies confusion or speech p roblems. No chest pain. Patient does have some discomfort of his right jaw that extends to the left forehead. (Evin Fischer) - Related Data Home Medications Medication Instructions Recorded Confirmed Baclofen 10 mg PO BID PRN 04/24/23 01/05/24 Furosemide [Lasix] 40 mg PO DAILY 04/24/23 01/05/24 amLODIPine [Norvasc] 5 mg PO DAILY 04/24/23 01/05/24 Previous Rx's Medication Instructions Recorded oxyCODONE-APAP 10-325MG [Percocet 1 tab PO Q6HR PRN 3 Days #12 tab 07/14/23 10-325 mg] Allergies Allergy/AdvReac Type Severity Reaction Status Date / Time No Known Allergies Allergy Verified 01/05/24 11:54 Review of Systems ROS Other: All systems not noted in ROS Statement are negative. <Tasha Meade - Last Filed: 01/05/24 12:02> ROS Other: All systems not noted in ROS Statement are negative. Constitutional: Denies: fever Eyes: Denies: eye pain ENT: Reports: as per HPI. Denies: ear pain Respiratory: Denies: cough, dyspnea Cardiovascular: Denies: chest pain Endocrine: Denies: fatigue Gastrointestinal: Denies: abdominal pain Musculoskeletal: Denies: back pain Skin: Reports: as per HPI, lesions <Evin Fischer - Last Filed: 01/05/24 14:35> ROS Statement: Those systems with pertinent positive or pertinent negative responses have been documented in the HPI. Past Medical History Past Medical History: Hypertension, Osteoarthritis (OA) Additional Past Medical History / Comment(s): ETOH abuse, chronic back pain, BLE neuropathy, lymphedema, multiple falls History of Any Multi-Drug Resistant Organisms: None Reported Past Surgical History: Back Surgery, Orthopedic Surgery, Tonsillectomy Additional Past Surgical History / Comment(s): 3 back laminectomies, hand surgery s/p trauma to reattatch tendons Past Anesthesia/Blood Transfusion Reactions: No Reported Reaction Past Psychological History: No Psychological Hx Reported Smoking Status: Never smoker Past Alcohol Use History: Daily, Heavy Past Drug Use History: None Reported - Past Family History Father Family Medical History: Hypertension Mother Family Medical History: Cancer Additional Family Medical History / Comment(s): Lung cancer Brother(s) Family Medical History: No Reported History Sister(s) Family Medical History: Hypertension Daughter(s) Family Medical History: No Reported History <Tasha Meade - Last Filed: 01/05/24 12:02> General Exam Limitations: no limitations <Tasha Meade - Last Filed: 01/05/24 12:02> Limitations: no limitations General appearance: alert, in no apparent distress Head exam: Present: atraumatic, normocephalic, other (No temporal artery tenderness) Eye exam: Present: normal appearance, PERRL, EOMI ENT exam: Present: normal oropharynx Neck exam: Present: normal inspection. Absent: tenderness Respiratory exam: Present: normal lung sounds bilaterally Cardiovascular Exam: Present: regular rate, normal rhythm Expanded Peripheral pulses: 2+: Radial (R), Radial (L), Dorsalis Pedis (R) GI/Abdominal exam: Present: soft. Absent: tenderness Extremities exam: Present: normal inspection Neurological exam: Present: alert, oriented X3, CN II-XII intact. Absent: motor sensory deficit Expanded Neurological exam: Present: protecting the airway Patient oriented to: Present: person, place, time Speech: Present: fluid speech Cranial nerves: EOM's Intact: Normal, Facial Sensation: Normal Sensory exam: Lower Extremity Light Touch: Abnormal Right, Abnormal Left (States chronic from neuropathy) Motor strength exam: RUE: 5, LUE: 5, RLE: 5, LLE: 5 Eye Response: (4) open spontaneously Motor Response: (6) obeys commands Verbal Response: (5) oriented Psychiatric exam: Present: normal affect, normal mood Skin exam: Present: other (Several stage II/III ulcers right lower leg) <Evin Fischer - Last Filed: 01/05/24 14:35> - General Exam Comments Initial Comments: Visual Physical Exam Vital signs reviewed General: Well-appearing, nontoxic, no acute distress. Head: Normocephalic, atraumatic Eyes: PERRLA, EOMI ENT: Airway patent Chest: Nonlabored breathing Skin: No visual rash, normal skin tone Neuro: Alert and oriented 3 Musculoskeletal: No gross abnormalities (Tasha Meade) Course Vital Signs 01/05/24 01/05/24 11:50 14:32 Temperature 97.8 F Pulse Rate 72 71 Respiratory 18 18 Rate Blood Pressure 149/76 121/63 O2 Sat by Pulse 98 98 Oximetry Medical Decision Making <Tasha Meade - Last Filed: 01/05/24 12:02> - Lab Data Result diagrams: 01/05/24 11:55 01/05/24 11:55 <Evin Fischer - Last Filed: 01/05/24 14:35> - Medical Decision Making I performed the QuickNote portion of this chart. Signed Tasha Meade PA-C. (Tasha Meade) EKG interpreted by myself shows sinus rhythm with a rate of 76. First-degree AV block CO 221. Normal axis. Normal QRS. Borderline ST change in lead II. Previous EKG reviewed dated 07/14/2023 with somewhat similar less pronounced changes in lead II Was pt. sent in by a medical professional or institution (NICHOLE Lange, [employer], urgent care, hospital, or senior care...) When possible be specific @ -Patient was sent in by Dr. Calvert's office Did you speak to anyone other than the patient for history (EMS, parent, family, police, friend...)? What history was obtained from this source @ -Family helps provide history in its entirety as patient is somewhat a poor historian Did you review nursing and triage notes (agree or disagree)? Why? @ -I reviewed and agree with nursing and triage notes Were old charts reviewed (outside hosp., previous admission, EMS record, old EKG, old radiological studies, urgent care reports/EKG's, senior care records)? Report findings @ -No old charts were reviewed Differential Diagnosis (chest pain, altered mental status, abdominal pain women, abdominal pain men, vaginal bleeding, weakness, fever, dyspnea, syncope, headache, dizziness, GI bleed, back pain, seizure, CVA, palpatations, mental health, musculoskeletal)? @ -Differential Weakness: Hypoglycemia, shock, sepsis, hyponatremia, anemia, infection, WI, ETOH, adverse medicine reaction, overdose, stroke, this is not meant to be an all-inclusive list. EKG interpreted by me (3pts min.). @ -As above X-rays interpreted by me (1pt min.). @ -Right shoulder and right tib-fib without acute osseous abnormality CT interpreted by me (1pt min.). @ -CT brain without acute abnormality U/S interpreted by me (1pt. min.). @ -None done What testing was considered but not performed or refused? (CT, X-rays, U/S, labs)? Why? @ -None What meds were considered but not given or refused? Why? @ -Patient not felt to be a candidate for tPA secondary to risks outweighing the benefit. Patient has questionable TIA symptoms and currently symptom-free with NIH of 0. Did you discuss the management of the patient with other professionals (professionals i.e. NICHOLE Lange, [employer], lab, RT, psych nurse, high school social science teacher, personal banking assistant, teacher, protective services officer, complex case manager)? Give summary @ -Case was discussed in detail with Dr. Lane who is familiar with this patient and will admit. He does request consult with Dr. Medina as well as cefepime and vancomycin. Was smoking cessation discussed for >3mins.? @ -No Was critical care preformed (if so, how long)? @ -No Were there social determinants of health that impacted care today? How? (Homele ssness, low income, unemployed, alcoholism, drug addiction, transportation, low edu. Level, literacy, decrease access to med. care, fpc, rehab)? @ -No Was there de-escalation of care discussed even if they declined (Discuss DNR or withdrawal of care, Hospice)? DNR status @ -No What co-morbidities impacted this encounter? (DM, HTN, Smoking, COPD, CAD, Cancer, CVA, ARF, Chemo, Hep., AIDS, mental health diagnosis, sleep apnea, morbid obesity)? @ -None Was patient admitted / discharged? Hospital course, mention meds given and route, prescriptions, significant lab abnormalities, going to OR and other pertinent info. @ -Patient and family are made aware of diagnosis and plan. Patient will be admitted with consultations. Admission orders written. Undiagnosed new problem with uncertain prognosis? @ -No Drug Therapy requiring intensive monitoring for toxicity (Heparin, Nitro, Insulin, Cardizem)? @ -No Were any procedures done? @ -No Diagnosis/symptom? @ -TIA. Right leg ulcers Acute, or Chronic, or Acute on Chronic? @ -Acute, acute Uncomplicated (without systemic symptoms) or Complicated (systemic symptoms)? @ -Default Side effects of treatment? @ -No Exacerbation, Progression, or Severe Exacerbation? @ -No Poses a threat to life or bodily function? How? (Chest pain, [place], WI, pneumonia, PE, COPD, DKA, ARF, appy, cholecystitis, CVA, Diverticulitis, Homicidal, Suicidal, threat to staff... and all critical care pts) @ -Potential threat to neurological function (Evin Fischer) - Lab Data Lab Results 01/05/24 01/05/24 01/05/24 Range/Units 11:55 11:55 13:21 WBC 8.1 (3.8-10.6) k/uL RBC 3.95 L (4.30-5.90) m/uL Hgb 11.6 L (13.0-17.5) gm/dL Hct 36.7 L (39.0-53.0) % MCV 92.9 (80.0-100.0) fL MCH 29.3 (25.0-35.0) pg MCHC 31.6 (31.0-37.0) g/dL RDW 15.3 (11.5-15.5) % Plt Count 392 (150-450) k/uL MPV 7.7 Neutrophils % 61 % Lymphocytes % 27 % Monocytes % 6 % Eosinophils % 4 % Basophils % 1 % Neutrophils # 5.0 (1.3-7.7) k/uL Lymphocytes # 2.2 (1.0-4.8) k/uL Monocytes # 0.5 (0-1.0) k/uL Eosinophils # 0.3 (0-0.7) k/uL Basophils # 0.1 (0-0.2) k/uL Hypochromasia Slight Sodium 138 (137-145) mmol/L Potassium 4.0 (3.5-5.1) mmol/L Chloride 107 (98-107) mmol/L Carbon Dioxide 27 (22-30) mmol/L Anion Gap 4 mmol/L BUN 19 (9-20) mg/dL Creatinine 0.62 L (0.66-1.25) mg/dL Est GFR (CKD-EPI)AfAm >90 (>60 ml/min/1.73 sqM) Est GFR (CKD-EPI)NonAf >90 (>60 ml/min/1.73 sqM) Glucose 107 H (74-99) mg/dL Plasma Lactic Acid Gerardo 0.7 (0.7-2.0) mmol/L Calcium 9.0 (8.4-10.2) mg/dL Total Bilirubin 0.3 (0.2-1.3) mg/dL AST 17 (17-59) U/L ALT 9 (4-49) U/L Alkaline Phosphatase 75 (38-126) U/L C-Reactive Protein <0.5 (<1.0) mg/dL Total Protein 6.1 L (6.3-8.2) g/dL Albumin 3.5 (3.5-5.0) g/dL Disposition <Tasha Meade - Last Filed: 01/05/24 12:02> Is patient prescribed a controlled substance at d/c from ED?: No Time of Disposition: 14:10 <Evin Fischer - Last Filed: 01/05/24 14:35> Clinical Impression: TIA (transient ischemic attack), Leg ulcer Disposition: ADMITTED IP TO THIS HOSP Referrals: Johnny Lane MD [Primary Care Provider] - 1-2 days
[2024-01-05 13:01] LABS: Basophils # (A) 0.1 k/uL (0-0.2); Basophils % (A) 1 %; Eosinophils # (A) 0.3 k/uL (0-0.7); Eosinophils % (A) 4 %; HCT 36.7 % (39.0-53.0); HGB 11.6 gm/dL (13.0-17.5); Hypochromasia Slight; Lymphocytes # (A) 2.2 k/uL (1.0-4.8); Lymphocytes % (A) 27 %; MCH 29.3 pg (25.0-35.0); MCHC 31.6 g/dL (31.0-37.0); MCV 92.9 fL (80.0-100.0); Mean Platelet Volume 7.7; Monocytes # (A) 0.5 k/uL (0-1.0); Monocytes % (A) 6 %; Neutrophils % (A) 61 %; Platelet Count 392 k/uL (150-450); RBC 3.95 m/uL (4.30-5.90); RDW 15.3 % (11.5-15.5); WBC 8.1 k/uL (3.8-10.6)
[2024-01-05 13:08] LABS: ALT 9 U/L (4-49); AST 17 U/L (17-59); African American GFR (CKD) >90 (>60 ml/min/1.73 sqM); Albumin 3.5 g/dL (3.5-5.0); Alkaline Phosphatase 75 U/L (38-126); Anion Gap 4 mmol/L; Blood Urea Nitrogen 19 mg/dL (9-20); Carbon Dioxide 27 mmol/L (22-30); Chloride 107 mmol/L (98-107); Glucose 107 mg/dL (74-99); Non-African American GFR(CKD) >90 (>60 ml/min/1.73 sqM); Sodium 138 mmol/L (137-145); Total Bilirubin 0.3 mg/dL (0.2-1.3); Total Protein 6.1 g/dL (6.3-8.2)
[2024-01-05 13:20] LABS: C Reactive Protein <0.5 mg/dL (<1.0)
--- NOTE | 2024-01-05 13:26 | XR ---
EXAMINATION TYPE: XR shoulder complete 3 views RT, XR tibia fibula 2 views RT DATE OF EXAM: 01/05/2024 Comparison: None Clinical History: 73-year-old male Pain Findings: Right shoulder: There is some irregularity and sclerosis of the greater tuberosity. Osteopenia. Mild capsular hypertr ophy AC joint with mild degenerative spurring. No acute fracture, subluxation, dislocation. Right tibia/fibula: Vascular calcifications. Old healed fracture deformity distal fibular shaft. There is degenerative ch jyoti of the knee with small joint effusion. Subchondral sclerosis at the lateral compartment may refl ect significant joint space loss. No acute fracture seen. Impression: 1. Right shoulder: Mild AC joint OA. Bony changes suggesting chronic rotator cuff tendinopathy. No ac sophia osseous abnormality seen. 2. Right tibia/fibula: Moderate degenerative change at the knee, greatest in the lateral compartment. Moderate joint effusion probably reactive. Old healed fracture deformity distal fibular shaft. Osteo penia without acute osseous abnormality seen.
--- NOTE | 2024-01-05 14:01 | CT ---
EXAMINATION TYPE: CT brain wo con CT DLP: 1168.4 mGycm, Automated exposure control for dose reduction was used. DATE OF EXAM: 01/05/2024 1:56 PM COMPARISON: 07/17/2020. 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 TECHNIQUE: Brain: Axial CT images of the brain were obtained with coronal and sagittal reformats created and rev iewed. Contrast used: None. Oral contrast used: None. FINDINGS: Brain: Extra-axial spaces: No abnormal extra-axial fluid collections. Ventricular system: Within normal limits Cerebral parenchyma: No acute intraparenchymal hemorrhage or mass effect. The dubon-white junction is well differentiated. Cerebellum: Unremarkable. Mass effect: No evidence of midline shift. Intracranial vasculature: unremarkable Soft tissues: Normal. Calvarium/osseous structures: No depressed skull fracture. Paranasal sinuses and mastoid air cells: Mild scattered paranasal sinus disease. Visualized orbits: Orbital contents are intact. IMPRESSION: No acute intracranial process.
[2024-01-05] MEDS ORDERED: traMADol 50 MG TAB PO PRN (14:10)
[2024-01-05] MEDS ORDERED: NALOXONE 0.4 MG/ML 1 ML VIAL IV PRN (14:10)
[2024-01-05] MEDS: SODIUM CHLORIDE 0.9% 1,000 ML IV SCH (14:30)
[2024-01-05] MEDS: ASPIRIN 325 MG TAB PO STA (14:32)
[2024-01-05] MEDS ORDERED: VANCOMYCIN IV PER PHARMACY 1 EACH MISC MISCELLANE PRN (14:34)
[2024-01-05] MEDS: oxyCODONE-APAP 10-325MG 1 EACH TAB PO PRN (14:54)
[2024-01-05 15:16] LABS: Appearance,Urine Clear (Clear); Bilirubin,Urine Negative (Negative); Blood,Urine Negative (Negative); Color,Urine Colorless; Glucose,Urine (UA) Negative (Negative); Ketones,Urine Negative (Negative); Leukocyte Esterase,Urine Negative (Negative); Nitrite,Urine Negative (Negative); Protein,Urine Negative (Negative); Specific Gravity,Urine 1.018 (1.001-1.035); Urobilinogen,Urine <2.0 mg/dL (<2.0)
--- NOTE | 2024-01-05 15:20 | US ---
EXAMINATION TYPE: US carotid duplex BILAT DATE OF EXAM: 01/05/2024 COMPARISON: US 2019 CLINICAL INDICATION: Male, 73 years old with history of Stenosis; TECHNIQUE: Carotid duplex ultrasound examination. Indirect Doppler criteria was utilized. FINDINGS: EXAM MEASUREMENTS: RIGHT: Peak Systolic Velocity (PSV) cm/sec ----- Right CCA: 66.7 ----- Right ICA: 137.0 ----- Right ECA: 45.3 ICA/CCA ratio: 2.1 RIGHT: End Diastole cm/sec ----- Right CCA: 12.6 ----- Right ICA: 33.6 ----- Right ECA: 0.0 LEFT: Peak Systolic Velocity (PSV) cm/sec ----- Left CCA: 65.0 ----- Left ICA: 95.2 ----- Left ECA: 87.0 ICA/CCA ratio: 1.5 LEFT: End Diastole cm/sec ----- Left CCA: 11.7 ----- Left ICA: 16.7 ----- Left ECA: 8.2 VERTEBRALS (direction of flow): Right Vertebral: Antegrade Left Vertebral: Antegrade Rhythm: Normal Ramp Service Agent notes: Right ICA/CCA ratio 2.1 IMPRESSION: Mildly elevated velocities within the right ICA may reflect a mild (50-69%) ICA stenosis. Criteria for Assigning % of Stenosis / Diameter reduction (Estimation based on the indirect measurements of the internal carotid artery velocities (ICA PSV). 1. Normal (no stenosis)=ICA PSV < 125 cm/s: ratio < 2.0: ICA EDV<40 cm/s. 2. Less than 50% stenosis=ICA PSV < 125 cm/s: ratio < 2.0: ICA EDV<40 cm/s. 3. 50 to 69% stenosis=ICA PSV of 125 to 230 cm/s: ration 2.0 ? 4.0: ICA EDV 40-100 cm/s. 4. Greater than 70% stenosis to near occlusion= ICA PSV > 230 cm/s: ratio > 4.0: ICA EDV > 100 cm/s. 5. Near occlusion= ICA PSV velocities may be low or undetectable: variable ratio and ICA EDV. 6. Total occlusion=unable to detect flow.
[2024-01-05] MEDS: CEFEPIME 1 GM in SODIUM CHLORIDE 0.9% 50 ML IVPB SCH (15:23)
[2024-01-05] MEDS: VANCOMYCIN 2,000 MG in SODIUM CHLORIDE 0.9% 500 ML 500 ML IVPB STA (15:47)
--- NOTE | 2024-01-05 16:28 | P.HPIM ---
History of Present Illness H&P Date: 01/05/24 Chief Complaint: Bilateral lower extremity venous ulceration with cellulitis. HISTORY OF PRESENT ILLNESS: This is a 73-year-old male one of my patient with a previous medical history significant for hypertension and hypertensive cardiovascular disease, hyperlipidemia, obesity with obstructive sleep apnea, history of chronic alcohol use and dependence with the peripheral neuropathy, significant spondylosis of the lumbar spine with spinal stenosis and significant chronic low back pain. Patient was seen in my office about a month ago and he was complaining of significant venous ulcerations of the right lower extremity that he was treated for by cephalexin 500 mg orally 3 times every day for 10 days this was followed by another course of oral antibiotic as well as Silvadene to be applied to both lower extremities with Rocky wrap's, I have received a call from his daughter few days ago and stated that his wound ulcers are getting worse and the patient has not followed up with me in the office as he was supposed to I asked her to take him to the emergency department for evaluation, there was some concern about the patient not able to take care of himself at this point in time, he does appear to have a significant venous ulcerations of right leg , he also continues to have significant issues with venous stasis, he does have significant neuropathy as well, patient was seen in the emergency department, there was concern of minimal weakness in the right upper extremity, had a CT scan of the brain did not show evidence of acute abnormalities, but because of the presentation and because of the venous wounds that he has in the right lower extremity he was admitted to the hospital he was started on IV antibiotic in the form of vancomycin and cefepime, infectious disease consultation was obtained from Dr. Medina, blood cultures and wound cultures will be obtained as well. boat worker consultation for discharge planning along with physical therapy evaluation. REVIEW OF SYSTEMS: Constitutional: No documented fever, no chills, no night sweats. No weight change. positive for weakness , reports fatigue reports lethargy. Positive for daytime sleepiness. HEENT: No headache. No blurred vision or double vision, no loss of vision. No loss of Hearing, no ringing in the ears, no dizziness. No nasal drainage or congestion. No epistaxis. No sore throat. Lungs: No shortness of breath, no cough, no sputum production. No wheezing. Reports dyspnea with activity. Cardiovascular: No chest pain, positive for lower extremity edema. No pal pitations. No paroxysmal nocturnal dyspnea. No orthopnea. No lightheadedness or dizziness. No syncopal episodes.Positive for nocturia. Abdominal: No abdominal pain. No nausea, vomiting. No diarrhea. No constipation. No bloody or tarry stools . No loss of appetite. Genitourinary: No dysuria, increased frequency, urgency. No urinary retention. Musculoskeletal: positive for neck pain, positive for chronic low back pain, positive for significant pain in both lower extremities with significant neuropathy, positive for gait dysfunction, positive for lower extremity weakness. Integumentary: Positive for venous ulcerations of right lower extremity with cellulitis, no lesions. No rash or pruritus. No unusual bruising. Does appear to have seborrheic dermatitis Neurologic: No aphasia. No facial droop. Memory loss. No head injury. No headache, positive for paresthesia in both lower extremities Psychiatric: Patient does appear to be somewhat depressed, appears to be a bit anxious, no suicidal thoughts or ideation. Endocrine: No abnormal blood sugars, increased weight. PAST MEDICAL HISTORY: 1. Hypertension and hypertensive cardiovascular disease. 2. Hyperlipidemia. 3. Hypothyroidism. 4. Chronic venous stasis with stasis dermatitis. 5. Chronic alcohol use and dependence. 6. Obstructive sleep apnea. 7. Peripheral neuropathy. 8. Vascular dementia. 9. Enlarged prostate. 10. 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 11. Restless leg syndrome. PAST SURGICAL HISTORY: 1. Laminectomies in the lumbar spine 3. 2. Tonsillectomy. 3. Hand surgery with tendon repair. SOCIAL HISTORY: Patient denies a history of smoking, he drinks about 3 beers every other day, he used to drink a lot heavier than that, he denies any drug use or abuse, he denies any marijuana use and lives along, he has a daughter who comes a check on him, only on the weekend. FAMILY HISTORY: Father at age 93 from old age. History of hypertension and myocardial infarction, mother at age of 84 from lung cancer and she was heavy smoker, patient has 2 brothers one of them is super morbid obesity and other one is okay, patient has 2 sisters one of them is 63-year-old with history of venous stasis, the other one is fine, patient has a daughter with no major medical problems 35-year-old. PHYSICAL EXAMINATION: General: This is a 73-year-old male who is resting in bed and does not appear to be in acute distress. HEENT: Head is atraumatic, normocephalic, pupils were equal round reactive to light and recommendation, extraocular muscle movement were intact, sclera nonicteric, conjunctivae were pale, mucous membranes of the mouth are somewhat dry. Neck: Supple, no JVP, normal carotid upstroke bilaterally, no lymphadenopathy. Chest: Decreased breath sounds at the bases, few rhonchi, no expiratory wheezes, no chest wall tenderness, no intercostal retractions. Heart: First heart sound is normal, second heart sound is normal there is systolic ejection murmur 2/6 located in the left sternal border. Abdomen: Soft, nontender, nondistended, positive bowel sounds. Extremities: There is chronic significant venous stasis of right lower extremity with a chronic skin changes dorsalis pedis +1 bilaterally, right lower extremity with open wound and fat exposure with cellulitis Neurologic examination: Patient is awake alert and oriented X 3, cranial nerves II-12 appear grossly intact, muscle power were 4 out of 5 in upper extremities and 3out of 5 in bilateral lower extremities, deep tendon reflexes were depressed bilaterally. ASSESSMENT AND PLAN: 1. Subjective weakness of the right upper extremity, patient does not have any neurological deficit on physical examination, CT scan of the brain did not show evidence of acute abnormalities, will continue to monitor the patient very closely. 2. Right lower extremity cellulitis with wounds due to venous ulceration continue patient on vancomycin pharmacy to dose its peak and trough, continue cefepime 2 g IV piggyback every 12 hours, wound cultures aerobic and anaerobic, blood cultures as well, apply Silvadene cream 1% once a day keep the leg elevated with an Rocky wrap, infectious disease consultation. 3. Hypertension and hypertensive cardiovascular disease. Continue patient on amlodipine 5 mg daily, losartan 50 mg orally once every day. Will continue to monitor the patient very closely. 4. Hyperlipidemia. Continue atorvastatin 40 mg daily. Keep LDL 55-70. 5. Vascular dementia. We will continue Namenda 10 mg po bid 6. Chronic alcohol use and dependence. patient has quit 7. 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 Patient on oxycodone 10/325 mg 1 tablet every 6 hours as needed, continue baclofen 10 mg orally twice every day as needed. 8. Bilateral lower extremity neuropathy continue patient on Lyrica 200 mg orally twice every day. 9. Depression. Continue patient on Cymbalta 60 mg orally once every day. 10. DVT prophylaxis. Continue Lovenox 40 mg subcutaneously every 24 hours. 11. GI prophylaxis. Continue Protonix 40 mg orally once every day. 12. Admit to inpatient. Estimate a length of stay 2 midnights. 13. Patient is full code. Past Medical History Past Medical History: Hypertension, Osteoarthritis (OA) Additional Past Medical History / Comment(s): ETOH abuse, chronic back pain, BLE neuropathy, lymphedema, multiple falls History of Any Multi-Drug Resistant Organisms: None Reported Past Surgical History: Back Surgery, Orthopedic Surgery, Tonsillectomy Additional Past Surgical History / Comment(s): 3 back laminectomies, hand surgery s/p trauma to reattatch tendons Past Anesthesia/Blood Transfusion Reactions: No Reported Reaction Past Psychological History: No Psychological Hx Reported Smoking Status: Never smoker Past Alcohol Use History: Daily, Heavy Past Drug Use History: None Reported - Past Family History Father Family Medical History: Hypertension Mother Family Medical History: Cancer Additional Family Medical History / Comment(s): Lung cancer Brother(s) Family Medical History: No Reported History Sister(s) Family Medical History: Hypertension Daughter(s) Family Medical History: No Reported History Medications and Allergies Home Medications Medication Instructions Recorded Confirmed Type Baclofen 10 mg PO BID PRN 04/24/23 01/05/24 History Furosemide [Lasix] 40 mg PO DAILY 04/24/23 01/05/24 History amLODIPine [Norvasc] 5 mg PO DAILY 04/24/23 01/05/24 History oxyCODONE-APAP 10-325MG [Percocet 1 tab PO Q6HR PRN 3 Days #12 tab 07/14/23 01/05/24 Rx 10-325 mg] Allergies Allergy/AdvReac Type Severity Reaction Status Date / Time No Known Allergies Allergy Verified 01/05/24 11:54 Physical Exam Vitals: Vital Signs Temp Pulse Resp BP Pulse Ox 01/05/24 14:32 71 18 121/63 98 01/05/24 11:50 97.8 F 72 18 149/76 98 Intake and Output 01/05/24 01/05/24 01/05/24 06:59 14:59 22:59 Other: Weight 136.078 kg Results CBC & Chem 7: 01/05/24 11:55 01/05/24 11:55 Labs: Abnormal Lab Results - Last 24 Hours (Table) 01/05/24 01/05/24 Range/Units 11:55 11:55 RBC 3.95 L (4.30-5.90) m/uL Hgb 11.6 L (13.0-17.5) gm/dL Hct 36.7 L (39.0-53.0) % Creatinine 0.62 L (0.66-1.25) mg/dL Glucose 107 H (74-99) mg/dL Total Protein 6.1 L (6.3-8.2) g/dL
[2024-01-05 19:30] LABS: Erythrocyte Sedimentation Rate 39 mm/Hr (0-20)
[2024-01-05] MEDS: PREGABALIN 100 MG CAP PO SCH (23:13)
[2024-01-05] MEDS: MEMANTINE 10 MG TAB PO SCH (23:16)
[2024-01-06] MEDS ORDERED: VANCOMYCIN 2,000 MG in SODIUM CHLORIDE 0.9% 500 ML 500 ML IVPB SCH (05:00)
[2024-01-06] MEDS: PANTOPRAZOLE 40 MG TABLET PO SCH (06:51)
--- NOTE | 2024-01-06 07:46 | P.CONS ---
History of Present Illness - Reason for Consult Consult date: 01/05/24 - History of Present Illness Patient is a 73-year-old male with a past medical history significant for hypertension osteoarthritis chronic back pain bilateral lower extremity neuropathy and lymphedema presenting to the hospital for evaluation of right lower extremity swelling and wounds that apparently has been going on for about the last few weeks. Did have increasing swelling to the leg with some blisters that have ruptured leading to superficial ulceration that has become more painful patient describes the pain to be sharp moderate intensity without radiation with associated swelling redness but no foul-smelling drainage patient denies high-grade fever and no fever have recorded on presentation to the hospital patient was not tachycardic hypotensive or hypoxic did have a white count of 8.1 creatinine 0.62 electrolytes are normal liver enzymes are normal urine has been negative x-ray of the tibia-fibula did not show any bony changes patient was started on vancomycin and cefepime infectious disease was consulted for further management of antibiotic therapy Past Medical History Past Medical History: Hypertension, Osteoarthritis (OA) Additional Past Medical History / Comment(s): ETOH abuse, chronic back pain, BLE neuropathy, lymphedema, multiple falls History of Any Multi-Drug Resistant Organisms: None Reported Past Surgical History: Back Surgery, Orthopedic Surgery, Tonsillectomy Additional Past Surgical History / Comment(s): 3 back laminectomies, hand surgery s/p trauma to reattatch tendons Past Anesthesia/Blood Transfusion Reactions: No Reported Reaction Past Psychological History: No Psychological Hx Reported Smoking Status: Never smoker Past Alcohol Use History: Daily, Heavy Past Drug Use History: None Reported - Past Family History Father Family Medical History: Hypertension Mother Family Medical History: Cancer Additional Family Medical History / Comment(s): Lung cancer Brother(s) Family Medical History: No Reported History Sister(s) Family Medical History: Hypertension Daughter(s) Family Medical History: No Reported History Medications and Allergies Home Medications Medication Instructions Recorded Confirmed Type Baclofen 10 mg PO BID PRN 04/24/23 01/05/24 History Furosemide [Lasix] 40 mg PO DAILY 04/24/23 01/05/24 History amLODIPine [Norvasc] 5 mg PO DAILY 04/24/23 01/05/24 History oxyCODONE-APAP 10-325MG [Percocet 1 tab PO Q6HR PRN 3 Days #12 tab 07/14/23 01/05/24 Rx 10-325 mg] Allergies Allergy/AdvReac Type Severity Reaction Status Date / Time No Known Allergies Allergy Verified 01/05/24 11:54 Physical Exam Vitals: Vital Signs Temp Pulse Resp BP Pulse Ox 01/05/24 14:32 71 18 121/63 98 01/05/24 11:50 97.8 F 72 18 149/76 98 Intake and Output 01/05/24 01/05/24 01/05/24 06:59 14:59 22:59 Other: Weight 136.078 kg Results CBC & Chem 7: 01/05/24 11:55 01/05/24 11:55 Labs: Abnormal Lab Results - Last 24 Hours (Table) 01/05/24 01/05/24 Range/Units 11:55 11:55 RBC 3.95 L (4.30-5.90) m/uL Hgb 11.6 L (13.0-17.5) gm/dL Hct 36.7 L (39.0-53.0) % Creatinine 0.62 L (0.66-1.25) mg/dL Glucose 107 H (74-99) mg/dL Total Protein 6.1 L (6.3-8.2) g/dL Assessment and Plan Plan: 1patient presented to hospital with right lower extremity pain swelling redness and some superficial ulceration likely venous stasis ulcer with secondary cellulitis likely from gram-positive skin rupali. 2discontinue vancomycin and cefepime. 3start the patient cefazolin 2 g every 8 hours. 3local wound care with a dry Aquacel silver dressing and Rocky wrap to keep the swelling down. We will follow on clinical condition and cultures to further adjust medication if needed Thank you for this consultation we will follow the patient along with you Dictation was produced using [employer] dictation software. please excuse any grammatical, word or spelling errors. Time with Patient: Greater than 30
[2024-01-06 09:21] LABS: Basophils # (A) 0.06 X 10*3/uL (0.00-0.10); Basophils % (A) 0.7 %; Eosinophils # (A) 0.32 X 10*3/uL (0.04-0.35); Eosinophils % (A) 3.6 %; HGB 10.1 g/dL (13.0-17.0); Lymphocytes # (A) 2.72 X 10*3/uL (0.90-5.00); Lymphocytes % (A) 30.8 %; MCH 29.1 pg (27.0-32.0); MCHC 31.6 g/dL (32.0-37.0); MCV 92.2 FL (80.0-97.0); Mean Platelet Volume 11.5 FL (9.5-12.2); Monocytes # (A) 0.86 X 10*3/uL (0.20-1.00); Monocytes % (A) 9.7 %; NRBC Per 100 WBC 0 X 10*3/uL (0.00-0.01); Neutrophils % (A) 54.3 %; Platelet Count 228 X 10*3/uL (140-440); RBC 3.47 X 10*6/uL (4.40-5.60); RDW 16.1 % (11.5-14.5); WBC 8.84 X 10*3/uL (4.50-10.00)
[2024-01-06 10:21] LABS: ALT 7 U/L (10-49); AST 14 U/L (14-35); Albumin 3.4 g/dL (3.8-4.9); Alkaline Phosphatase 76 U/L (41-126); BUN/Creat Ratio 28.11 Ratio (12.00-20.00); Blood Urea Nitrogen 25.3 mg/dL (9.0-27.0); Calcium 8.7 mg/dL (8.7-10.3); Carbon Dioxide 26.5 mmol/L (21.6-31.8); Chloride 105 mmol/L (96-109); Chol/HDL Ratio 3.08 Ratio; Globulin 1.7 g/dL (1.6-3.3); Glucose 106 mg/dL (70-110); LDL Cholesterol,Calculated 68.6 mg/dL (0.0-131.0); Potassium 4.6 mmol/L (3.5-5.5); Sodium 140 mmol/L (135-145); Total Bilirubin <0.2 mg/dL (0.3-1.2); Total Protein 5.1 g/dL (6.2-8.2); VLDL Calculation 16.52 mg/dL (5.00-40.00)
[2024-01-06] MEDS: FUROSEMIDE 40 MG TAB PO SCH (10:49)
[2024-01-06] MEDS: ATORVASTATIN 40 MG TAB PO SCH (10:49)
[2024-01-06] MEDS: FOLIC ACID 1 MG TAB PO SCH (10:49)
[2024-01-06] MEDS: LOSARTAN 50 MG TAB PO SCH (10:49)
[2024-01-06] MEDS: ASPIRIN 325 MG TAB PO SCH (10:49)
[2024-01-06] MEDS: amLODIPine 5 MG TAB PO SCH (10:49)
[2024-01-06] MEDS: ENOXAPARIN 40 MG/0.4 ML SYRINGE SQ SCH (10:50)
[2024-01-06] MEDS: oxyCODONE-APAP 10-325MG 1 EACH TAB PO PRN (10:53)
--- NOTE | 2024-01-06 12:29 | P.PN ---
Subjective Progress Note Date: 01/06/24 HISTORY OF PRESENT ILLNESS: This is a 73-year-old male one of my patient with a previous medical history significant for hypertension and hypertensive cardiovascular disease, hyperlipidemia, obesity with obstructive sleep apnea, history of chronic alcohol use and dependence with the peripheral neuropathy, significant spondylosis of the lumbar spine with spinal stenosis and significant chronic low back pain. Patient was seen in my office about a month ago and he was complaining of significant venous ulcerations of the right lower extremity that he was treated for by cephalexin 500 mg orally 3 times every day for 10 days this was followed by another course of oral antibiotic as well as Silvadene to be applied to both lower extremities with Rocky wrap's, I have received a call from his daughter few days ago and stated that his wound ulcers are getting worse and the patient has not followed up with me in the office as he was supposed to I asked her to take him to the emergency department for evaluation, there was some concern about the patient not able to take care of himself at this point in time, he does appear to have a significant venous ulcerations of right leg , he also continues to have significant issues with venous stasis, he does have significant neuropathy as well, patient was seen in the emergency department, there was concern of minimal weakness in the right upper extremity, had a CT scan of the brain did not show evidence of acute abnormalities, but because of the presentation and because of the venous wounds that he has in the right lower extremity he was ad mitted to the hospital he was started on IV antibiotic in the form of vancomycin and cefepime, infectious disease consultation was obtained from Dr. Medina, blood cultures and wound cultures will be obtained as well. relief worker consultation for discharge planning along with physical therapy evaluation. 01/05: Patient is sitting at the edge of the bed he is feeling better today, he denies any fever or chills, he has not had a bowel movement yet, he will be started on MiraLAX 17 g orally once every day, Senokot 1 tablet orally twice every day, he will be seen in consultation by physical therapy, social science analyst consultation, patient was seen already by infectious disease, he was switched to cefazolin 2 g IV piggyback every 8 hours, Aquacel silver to the ulceration in the leg, keep the Rocky wrap, keep the leg elevated, continue diuretics for the venous stasis, we will continue to follow the patient very closely, reviewed laboratory evaluation, and will recheck the patient again tomorrow morning. REVIEW OF SYSTEMS: Constitutional: No documented fever, no chills, no night sweats. No weight change. positive for weakness , reports fatigue reports lethargy. Positive for daytime sleepiness. HEENT: No headache. No blurred vision or double vision, no loss of vision. No loss of Hearing, no ringing in the ears, no dizziness. No nasal drainage or congestion. No epistaxis. No sore throat. Lungs: No shortness of breath, no cough, no sputum production. No wheezing. Reports dyspnea with activity. Cardiovascular: No chest pain, positive for lower extremity edema. No palpitations. No paroxysmal nocturnal dyspnea. No orthopnea. No lightheadedness or dizziness. No syncopal episodes.Positive for nocturia. Abdominal: No abdominal pain. No nausea, vomiting. No diarrhea. No constipation. No bloody or tarry stools . No loss of appetite. Genitourinary: No dysuria, increased frequency, urgency. No urinary retention. Musculoskeletal: positive for neck pain, positive for chronic low back pain, positive for significant pain in both lower extremities with significant neuropathy, positive for gait dysfunction, positive for lower extremity weakness. Integumentary: Positive for venous ulcerations of right lower extremity with cellulitis, no lesions. No rash or pruritus. No unusual bruising. Does appear to have seborrheic dermatitis Neurologic: No aphasia. No facial droop. Memory loss. No head injury. No headache, positive for paresthesia in both lower extremities Psychiatric: Patient does appear to be somewhat depressed, appears to be a bit anxious, no suicidal thoughts or ideation. Endocrine: No abnormal blood sugars, increased weight. PHYSICAL EXAMINATION: General: This is a 73-year-old male who is resting in bed and does not appear to be in acute distress. HEENT: Head is atraumatic, normocephalic, pupils were equal round reactive to light and recommendation, extraocular muscle movement were intact, sclera nonicteric, conjunctivae were pale, mucous membranes of the mouth are somewhat dry. Neck: Supple, no JVP, normal carotid upstroke bilaterally, no lymphadenopathy. Chest: Decreased breath sounds at the bases, few rhonchi, no expiratory wheezes, no chest wall tenderness, no intercostal retractions. Heart: First heart sound is normal, second heart sound is normal there is systolic ejection murmur 2/6 located in the left sternal border. Abdomen: Soft, nontender, nondistended, positive bowel sounds. Extremities: There is chronic significant venous stasis of right lower extremity with a chronic skin changes dorsalis pedis +1 bilaterally, right lower extremity with open wound and fat exposure with cellulitis Neurologic examination: Patient is awake alert and oriented X 3, cranial nerves II-12 appear grossly intact, muscle power were 4 out of 5 in upper extremities and 3out of 5 in bilateral lower extremities, deep tendon reflexes were depressed bilaterally. ASSESSMENT AND PLAN: 1. Subjective weakness of the right upper extremity, patient does not have any neurological deficit on physical examination, CT scan of the brain did not show evidence of acute abnormalities, will continue to monitor the patient very closely. 2. Right lower extremity cellulitis with wounds due to venous ulceration continue patient on cefazolin 2 g IV piggyback every 8 hours, continue with Aquacel silver, continue with Rocky wrap to the right lower extremity. Keep the leg elevated, continue diuretics. Infectious disease consultation appreciated. 3. Hypertension and hypertensive cardiovascular disease. Continue patient on amlodipine 5 mg daily, losartan 50 mg orally once every day. Will continue to monitor the patient very closely. 4. Hyperlipidemia. Continue atorvastatin 40 mg daily. Keep LDL 55-70. 5. Vascular dementia. We will continue Namenda 10 mg po bid 6. Chronic alcohol use and dependence. patient has quit 7. 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 Patient on oxycodone 10/325 mg 1 tablet every 6 hours as needed, continue baclofen 10 mg orally twice every day as needed. 8. Bilateral lower extremity neuropathy continue patient on Lyrica 200 mg o rally twice every day. 9. Depression. Continue patient on Cymbalta 60 mg orally once every day. 10. DVT prophylaxis. Continue Lovenox 40 mg subcutaneously every 24 hours. 11. GI prophylaxis. Continue Protonix 40 mg orally once every day. 12. Hopefully on Monday. Objective - Vital Signs Vital signs: Vital Signs Temp 97.7 F 01/06/24 07:00 Pulse 69 01/06/24 07:00 Resp 14 01/06/24 07:00 BP 114/63 01/06/24 07:00 Pulse Ox 99 01/06/24 07:00 FiO2 Intake & Output 01/05/24 01/06/24 01/06/24 18:59 06:59 18:59 Output Total 600 Balance -600 Weight 136.078 kg 136.078 kg Output: Urine 600 Other: Voiding Method Urinal - Labs CBC & Chem 7: 01/06/24 04:48 01/06/24 04:48 Labs: Abnormal Lab Results - Last 24 Hours (Table) 01/05/24 01/05/24 01/06/24 Range/Units 11:55 11:55 04:48 RBC 3.95 L 3.47 L (4.30-5.90) m/uL Hgb 11.6 L 10.1 L (13.0-17.5) gm/dL Hct 36.7 L 32.0 L (39.0-53.0) % MCHC 31.6 L (32.0-37.0) g/dL RDW 16.1 H (11.5-14.5) % Immature Gran # 0.08 H (0.00-0.04) X 10*3/uL ESR 39 H (0-20) mm/Hr Creatinine 0.62 L (0.66-1.25) mg/dL BUN/Creatinine Ratio (12.00-20.00) Ratio Glucose 107 H (74-99) mg/dL Total Bilirubin (0.3-1.2) mg/dL ALT (10-49) U/L Total Protein 6.1 L (6.3-8.2) g/dL Albumin (3.8-4.9) g/dL 01/06/24 Range/Units 04:48 RBC (4.30-5.90) m/uL Hgb (13.0-17.5) gm/dL Hct (39.0-53.0) % MCHC (32.0-37.0) g/dL RDW (11.5-14.5) % Immature Gran # (0.00-0.04) X 10*3/uL ESR (0-20) mm/Hr Creatinine (0.66-1.25) mg/dL BUN/Creatinine Ratio 28.11 H (12.00-20.00) Ratio Glucose (74-99) mg/dL Total Bilirubin <0.2 L (0.3-1.2) mg/dL ALT 7 L (10-49) U/L Total Protein 5.1 L (6.3-8.2) g/dL Albumin 3.4 L (3.8-4.9) g/dL
--- NOTE | 2024-01-06 13:41 | P.CNNES ---
History of Present Illness Consult date: 01/06/24 Requesting physician: Evin Fischer Reason for Consult: evaluate for TIA, right arm weakness History of Present Illness: this is a 73-year-old gentleman who presents because of leg wound. Neurology is consulted for right upper extremity weakness. Patient states that he's been having right upper extremity weakness for the last 1 month. He also feels the right upper extremity is numb. Denies any visual disturbance, difficulty getting his words out. He does have neck pain for the last 1 month but denies any radiation to the pain. He has chronic lower back pain and had 3 surgeries. He denies any history of stroke or any A. fib. He states he has borderline hypertension. Seems the patient has right lower extremity cellulitis. As well as has vascular dementia. He has history of chronic alcohol use and has lower extremity neuropathy. I personally reviewed the primary team's note and he reported that the right upper extremity seems subjective and on his examination there is no deficits of the upper extremity. Some of the workup during his hospital visit consisted of: lipid panel is a triglyceride of 82, cholesterol is 126, LDL 68 and HDL is 40 CT of the head is reported as no acute intracranial process. I personally reviewed the CT and I agree with the report. carotid duplex is reported as mildly elevated velocity within the right ICA may reflect mild 50-69 ICA stenosis. Review of Systems The positive and negative as per HPI. Past Medical History Past Medical History: Hypertension, Osteoarthritis (OA) Additional Past Medical History / Comment(s): ETOH abuse, chronic back pain, BLE neuropathy, lymphedema, multiple falls History of Any Multi-Drug Resistant Organisms: None Reported Past Surgical History: Back Surgery, Orthopedic Surgery, Tonsillectomy Additional Past Surgical History / Comment(s): 3 back laminectomies, hand surgery s/p trauma to reattatch tendons Past Anesthesia/Blood Transfusion Reactions: No Reported Reaction Past Psychological History: No Psychological Hx Reported Smoking Status: Never smoker Past Alcohol Use History: Daily, Heavy Past Drug Use History: None Reported - Past Family History Father Family Medical History: Hypertension Mother Family Medical History: Cancer Additional Family Medical History / Comment(s): Lung cancer Brother(s) Family Medical History: No Reported History Sister(s) Family Medical History: Hypertension Daughter(s) Family Medical History: No Reported History Medications and Allergies Home Medications Medication Instructions Recorded Confirmed Type Baclofen 10 mg PO BID PRN 04/24/23 01/05/24 History Furosemide [Lasix] 40 mg PO DAILY 04/24/23 01/05/24 History amLODIPine [Norvasc] 5 mg PO DAILY 04/24/23 01/05/24 History oxyCODONE-APAP 10-325MG [Percocet 1 tab PO Q6HR PRN 3 Days #12 tab 07/14/23 01/05/24 Rx 10-325 mg] Allergies Allergy/AdvReac Type Severity Reaction Status Date / Time No Known Allergies Allergy Verified 01/05/24 11:54 Physical Examination - Vital Signs Vital Signs: Vital Signs Temp Pulse Pulse Resp BP BP Pulse Ox 01/06/24 07:00 97.7 F 69 14 114/63 99 01/06/24 02:00 73 01/06/24 00:38 97.5 F L 73 18 105/50 98 01/05/24 23:28 98.8 F 77 16 118/49 99 01/05/24 18:01 71 18 122/88 97 01/05/24 15:49 72 18 129/96 100 01/05/24 14:32 71 18 121/63 98 Intake and Output 01/05/24 01/06/24 01/06/24 22:59 06:59 14:59 Output Total 600 620 Balance -600 -620 Output: Urine 600 620 Other: Voiding Method Urinal Weight 136.078 kg GENERAL: The patient is lying in bed and is not in acute distress. Extremities: Has erythema, edema in right lower in calf and below. NEUROLOGICAL: Higher mental function: The patient is awake, alert, oriented to self, place and time. Patient is following commands. No aphasia and no neglect. Cranial nerves: The pupils are round, equal and reactive to light. Visual dooley are full to confrontation throughout. Extraocular movement is intact no nystagmus is noted. Facial sensation is normal to touch throughout. The facial strength is normal throughout. Hearing is normal bilaterally to hand rub. Tongue is midline and moved [id number] without any difficulty. No dysarthria is noted. Shoulder shrug is normal bilaterally. Motor: The strength is right lower is limited because of pain (has cellulitis). Uppers are 5/5 bilaterally. Left lower lift above gravity. Cerebellum: Normal finger to nose bilaterally. Sensation: Sensation is normal to touch uppers but decreased in right lower and stated old. Reflexes (right/left): 1+. Results - Laboratory Findings CBC and BMP: 01/06/24 04:48 01/06/24 04:48 Abnormal Lab Findings: Abnormal Labs 01/05/24 01/05/24 01/06/24 11:55 11:55 04:48 RBC 3.95 L 3.47 L Hgb 11.6 L 10.1 L Hct 36.7 L 32.0 L MCHC 31.6 L RDW 16.1 H Immature Gran # 0.08 H ESR 39 H Creatinine 0.62 L BUN/Creatinine Ratio Glucose 107 H Total Bilirubin ALT Total Protein 6.1 L Albumin 01/06/24 04:48 RBC Hgb Hct MCHC RDW Immature Gran # ESR Creatinine BUN/Creatinine Ratio 28.11 H Glucose Total Bilirubin <0.2 L ALT 7 L Total Protein 5.1 L Albumin 3.4 L Assessment and Plan Assessment: this is a 73-year-old gentleman who presents because of right lower extremity wound. He states that he is having right upper extremity weakness and numbness for the last 1 month. On my examination as well as the primary there is no focal deficit in the upper. She states she's been having also neck pain but denies any radiation. Subjective right upper extremity weakness and numbness. CT of the head is unremarkable Right lower extremity cellulitis hypertension History of underlying vascular dementia chronic lower back pain and had 3 surgeries with residual numbness in the right lower bilateral lower extremity neuropathy Hyperlipidemia Chronic alcohol use Plan: I ordered MRI of the brain and cervical spine. The meantime I ordered the CT cervical spine since unlikely patient will obtain the MRI today. If patient does have a stroke we'll get the rest of the stroke workup carotid duplex was reported as mildly elevated velocity within the right ICA may reflect mild 50-69 ICA stenosis. Recommend follow-up with vascular surgery team as an outpatient. patient is on aspirin 325 daily and Lipitor 40 mg daily IDs on board PT, OT and MANAGER DIESEL are consulted We'll defer the rest of the medical measure the primary team and other specialist upon discharge recommend the patient to follow-up with a neurologist as an outpatient within 2 weeks. the plan was discussed with the patient and the his nurse Thank for the consultation Time with Patient: Greater than 30
[2024-01-06] MEDS: polyethylene glycoL 3350 17 GM POWD.PACK PO SCH (14:18)
--- NOTE | 2024-01-06 16:09 | CT ---
EXAMINATION TYPE: CT cervical spine wo con DATE OF EXAM: 01/06/2024 COMPARISON: 07/17/2020 HISTORY: 73-year-old male right arm weakness with neck pain TECHNIQUE: Contiguous axial scanning of the cervical spine without IV contrast. Coronal and sagittal reconstructions performed. CT DLP: 801.2 mGycm Automated exposure control for dose reduction was used. FINDINGS: No craniocervical junction abnormality, predental space widening, or prevertebral soft tissue swellin g. There is moderate to severe distention plate degenerative change throughout the cervical spine. Multilevel facet and uncovertebral joint arthropathy is also present. Straightening of the normal cervical lordosis. Trace grade 1 anterolisthesis C2-C3. Remaining alignment is maintained. Disc ossified complexes contribute to mild spinal canal stenosis throughout the cervical spine but mo re moderate at C3-C4 and C4-C5 with AP canal dimensions of 6 mm. MRI could provide more accurate asse ssment. No acute fracture seen of the cervical spine. At C2-C3, mild left neuroforaminal stenosis. At C3-C4, there is severe right and moderate to severe left neuroforaminal stenosis. At C4-C5, there is severe left and moderate right neural foraminal stenosis. At C5-C6, moderate to severe right and moderate left neuroforaminal stenosis. At C6-C7, mild to moderate left and mild right neuroforaminal stenosis. At C7-T1, mild right neural foraminal stenosis. IMPRESSION: 1. MODERATE TO ADVANCED SPONDYLOTIC CHANGE THROUGHOUT THE CERVICAL SPINE. DEGENERATIVE GRADE 1 CORRIE LISTHESIS C2-C3. 2. SUSPECT AT LEAST MODERATE SPINAL CANAL STENOSES AT C3-C4 AND C4-C5 WITH THE AP CANAL DIMENSION MAITE ROWED DOWN TO 6 MM OR LESS. MRI COULD PROVIDE MORE ACCURATE ASSESSMENT. 3. VARIABLE NEURAL FORAMINAL STENOSIS OUTLINED ABOVE.
[2024-01-06] MEDS: SENNOSIDES-DOCUSATE SODIUM 1 EACH TAB PO SCH (20:22)
[2024-01-07 04:34] LABS: ALT 8 U/L (4-49); AST 17 U/L (17-59); African American GFR (CKD) >90 (>60 ml/min/1.73 sqM); Albumin/Globulin Ratio 1.3; Alkaline Phosphatase 82 U/L (38-126); Anion Gap 2 mmol/L; Blood Urea Nitrogen 31 mg/dL (9-20); Calcium 8.6 mg/dL (8.4-10.2); Carbon Dioxide 30 mmol/L (22-30); Chloride 105 mmol/L (98-107); Globulin 2.4 g/dL; Glucose 91 mg/dL (74-99); Non-African American GFR(CKD) >90 (>60 ml/min/1.73 sqM); Potassium 4.4 mmol/L (3.5-5.1); Sodium 137 mmol/L (137-145); Total Bilirubin 0.3 mg/dL (0.2-1.3); Total Protein 5.4 g/dL (6.3-8.2)
[2024-01-07 09:54] LABS: Basophils # (A) 0.05 X 10*3/uL (0.00-0.10); Basophils % (A) 0.7 %; Eosinophils # (A) 0.34 X 10*3/uL (0.04-0.35); Eosinophils % (A) 4.6 %; HCT 32.4 % (39.6-50.0); HGB 10.2 g/dL (13.0-17.0); Lymphocytes # (A) 2.77 X 10*3/uL (0.90-5.00); Lymphocytes % (A) 37.2 %; MCH 28.6 pg (27.0-32.0); MCHC 31.5 g/dL (32.0-37.0); MCV 90.8 FL (80.0-97.0); Mean Platelet Volume 11.4 FL (9.5-12.2); Monocytes # (A) 0.98 X 10*3/uL (0.20-1.00); Monocytes % (A) 13.2 %; NRBC Per 100 WBC 0 X 10*3/uL (0.00-0.01); Neutrophils # (A) 3.26 X 10*3/uL (1.80-7.70); Neutrophils % (A) 43.8 %; Platelet Count 218 X 10*3/uL (140-440); RBC 3.57 X 10*6/uL (4.40-5.60); RDW 16.2 % (11.5-14.5); WBC 7.44 X 10*3/uL (4.50-10.00)
--- NOTE | 2024-01-07 09:54 | CA ---
Transthoracic Echo Report Name: Milton Navarro Age: 73 Gender: M : 1950 Exam Date: 01/06/2024 19:18 Exam Location: [facility] Ht (in): 72 Wt (lb): 300 Ordering Physician: Evin Fischer DO Attending/Referring Phys: Tele Grout Sewer Line Repairer Tresa Hawkins RDCS Procedure CPT: Indications: Thrombus Cardiac Hx: Technical Quality: Technically difficult study Contrast 1: Definity Total Dose (mL): 2 Contrast 2: Total Dose (mL): MEASUREMENTS (Male / Female) Normal Values 2D ECHO LV Diastolic Diameter PLAX 4.3 cm 4.2 - 5.9 / 3.9 - 5.3 cm LV Systolic Diameter PLAX 3.2 cm IVS Diastolic Thickness 1.1 cm 0.6 - 1.0 / 0.6 - 0.9 cm LVPW Diastolic Thickness 1.7 cm 0.6 - 1.0 / 0.6 - 0.9 cm LV Relative Wall Thickness 0.6 M-MODE Aortic Root Diameter MM 3.4 cm LA Systolic Diameter MM 3.1 cm LA Ao Ratio MM 0.9 AV Cusp Separation MM 1.8 cm DOPPLER AV Peak Velocity 102.7 cm/s AV Peak Gradient 4.2 mmHg LVOT Peak Velocity 90.3 cm/s LVOT Peak Gradient 3.3 mmHg Mitral E Point Velocity 64.2 cm/s Mitral A Point Velocity 47.3 cm/s Mitral E to A Ratio 1.4 MV Deceleration Time 199.1 ms MV E' Velocity 8.1 cm/s Mitral E to MV E' Ratio 8.0 TR Peak Velocity 124.4 cm/s TR Peak Gradient 6.2 mmHg Right Ventricular Systolic Press 11.2 mmHg FINDINGS Left Ventricle Mildly increased left ventricular wall thickness. Left ventricular cavity size normal. No obvious regional wall motion abnormalities. Left ventricular ejection fraction is estimated at 50-55 %. Right Ventricle Right ventricle not well visualized. Right ventricular systolic pressure within normal limits. Right Atrium Right atrium not well visualized. Left Atrium Normal left atrial size. Mitral Valve No mitral stenosis, regurgitation or prolapse. Aortic Valve No aortic valve stenosis or regurgitation. Tricuspid Valve Structurally normal tricuspid valve. Mild tricuspid regurgitation. Pulmonic Valve Pulmonic valve not well visualized. Pericardium Small pericardial effusion. Aorta Normal size aortic root and proximal ascending aorta. CONCLUSIONS Normal LV function Small pericardial effusion Previewed by: Dr. Panchito Devine MD (Electronically Signed) Final Date: 07 January 2024 09:53
--- NOTE | 2024-01-07 10:41 | P.PN ---
Subjective Progress Note Date: 01/06/24 Principal diagnosis: Reason for follow-up is a right lower extremity ulcer and cellulitis Patient is a 73-year-old male with a past medical history significant for hypertension osteoarthritis chronic back pain bilateral lower extremity neuropathy and lymphedema presenting to the hospital for evaluation of right lower extremity swelling and wounds, patient be diagnosed with a likely venous stasis ulcer and secondary cellulitis and admit to the hospital. On today's evaluation that is 01/06/2024, Patient is afebrile patient is currently on room air and denies having any shortness of breath, the patient denies any chest pain or cough, the patient denies any nausea vomiting did not have any abdominal pain and no diarrhea, pain and swelling to the right leg slightly decreased in intensity. Patient white count is 8.84 creatinine 0.9 blood cultures pending Objective - Vital Signs Vital signs: Vital Signs Temp 97.7 F 01/06/24 07:00 Pulse 69 01/06/24 07:00 Resp 14 01/06/24 07:00 BP 114/63 01/06/24 07:00 Pulse Ox 99 01/06/24 07:00 FiO2 Intake & Output 01/05/24 01/06/24 01/06/24 18:59 06:59 18:59 Output Total 600 620 Balance -600 -620 Weight 136.078 kg 136.078 kg Output: Urine 600 620 Other: Voiding Method Urinal # Voids 5 - Exam GENERAL DESCRIPTION: An elderly male lying in bed in no distress RESPIRATORY SYSTEM: Unlabored breathing , decreased breath sounds at bases HEART: S1 S2 regular rate and rhythm , ABDOMEN: Soft , no tenderness EXTREMITIES: Right lower extremity swelling redness slightly decreased - Labs CBC & Chem 7: 01/07/24 03:55 01/07/24 03:55 Labs: Abnormal Lab Results - Last 24 Hours (Table) 01/05/24 01/06/24 01/06/24 Range/Units 11:55 04:48 04:48 RBC 3.47 L (4.40-5.60) X 10*6/uL Hgb 10.1 L (13.0-17.0) g/dL Hct 32.0 L (39.6-50.0) % MCHC 31.6 L (32.0-37.0) g/dL RDW 16.1 H (11.5-14.5) % Immature Gran # 0.08 H (0.00-0.04) X 10*3/uL ESR 39 H (0-20) mm/Hr BUN/Creatinine Ratio 28.11 H (12.00-20.00) Ratio Total Bilirubin <0.2 L (0.3-1.2) mg/dL ALT 7 L (10-49) U/L Total Protein 5.1 L (6.2-8.2) g/dL Albumin 3.4 L (3.8-4.9) g/dL Assessment and Plan (1) Leg ulcer Current Visit: Yes Status: Acute Code(s): L97.909 - NON-PRS CHRONIC ULC UNSP PRT OF UNSP LOW LEG W UNSP SEVERITY SNOMED Code(s): 83655641 (2) Cellulitis of right leg Current Visit: No Status: Acute Code(s): L03.115 - CELLULITIS OF RIGHT LOWER LIMB SNOMED Code(s): 29437490008528418 Plan: 1patient presented to hospital with right lower extremity pain swelling redness and some superficial ulceration likely venous stasis ulcer with secondary cellulitis likely from gram-positive skin rupali. 2patient currently being treated with cefazolin 2 g every 8 hours. 3local wound care with a dry Aquacel silver dressing and Rocky wrap to keep the swelling down. Care discussed with admitting physician Dictation was produced using [employer] dictation software. please excuse any grammatical, word or spelling errors. Time with Patient: Less than 30
--- NOTE | 2024-01-07 11:58 | P.PN ---
Subjective Progress Note Date: 01/07/24 I am following-up with patient and states he has been having ongoing neck pain and Knee pain. Objective - Vital Signs Vital signs: Vital Signs Temp 97.8 F 01/07/24 07:00 Pulse 75 01/07/24 07:00 Resp 15 01/07/24 07:00 BP 137/74 01/07/24 07:00 Pulse Ox 99 01/07/24 07:00 FiO2 Intake & Output 01/06/24 01/07/24 01/07/24 18:59 06:59 18:59 Output Total 620 2225 Balance -620 -2225 Output: Urine 620 2225 Other: # Voids 5 # Bowel Movements 1 - Exam GENERAL: The patient is sitting in a recliner chair and is not in acute distress. Extremities: Has erythema, edema in right lower in calf and below. NEUROLOGICAL: Higher mental function: The patient is awake, alert, oriented to self, place and time. Patient is following commands. No aphasia and no neglect. Cranial nerves: The pupils are round, equal and reactive to light. Visual dooley are full to confrontation throughout. Extraocular movement is intact no nystagmus is noted. Facial sensation is normal to touch throughout. The facial strength is normal throughout. Hearing is normal bilaterally to hand rub. Tongue is midline and moved [id number] without any difficulty. No dysarthria is noted. Shoulder shrug is normal bilaterally. Motor: The strength is right lower is limited because of pain (has cellulitis). Uppers are 5/5 bilaterally. Left lower lift above gravity. Cerebellum: Normal finger to nose bilaterally. Sensation: Sensation is normal to touch uppers but decreased in right lower and stated old. Reflexes (right/left): 1+. Some of the workup during his hospital visit consisted of: lipid panel is a triglyceride of 82, cholesterol is 126, LDL 68 and HDL is 40 CT of the head is reported as no acute intracranial process. I personally reviewed the CT and I agree with the report. carotid duplex is reported as mildly elevated velocity within the right ICA may reflect mild 50-69 ICA stenosis. 2D echo: it is reported as normal left ventricle function. Small pericardial effusion. CT cervical spine was reported as moderate to advanced spondylitic changes throughout the cervical spine. Degenerative grade 1 anterolisthesis C2-C3. Suspected at least moderate spinal canal stenosis at C3-C4 and C4-C5 with the AP canal diminished narrowed down to 6 mm or less. - Labs CBC & Chem 7: 01/07/24 03:55 01/07/24 03:55 Labs: Abnormal Lab Results - Last 24 Hours (Table) 01/07/24 01/07/24 Range/Units 03:55 03:55 RBC 3.57 L (4.40-5.60) X 10*6/uL Hgb 10.2 L (13.0-17.0) g/dL Hct 32.4 L (39.6-50.0) % MCHC 31.5 L (32.0-37.0) g/dL RDW 16.2 H (11.5-14.5) % BUN 31 H (9-20) mg/dL Total Protein 5.4 L (6.3-8.2) g/dL Albumin 3.0 L (3.5-5.0) g/dL Microbiology - Last 24 Hours (Table) 01/05/24 14:17 Blood Culture - Preliminary Blood 01/05/24 14:07 Blood Culture - Preliminary Blood Assessment and Plan Assessment: this is a 73-year-old gentleman who presents because of right lower extremity wound. He states that he is having right upper extremity weakness and numbness for the last 1 month. On my examination as well as the primary there is no focal deficit in the upper. She states she's been having also neck pain but denies any radiation. Subjective right upper extremity weakness and numbness. CT of the head is unremarkable. Has cervical stenosis/spodylosis on CT. Right lower extremity cellulitis hypertension History of underlying vascular dementia chronic lower back pain and had 3 surgeries with residual numbness in the right lower bilateral lower extremity neuropathy Hyperlipidemia Chronic alcohol use Plan: I ordered MRI of the brain and cervical spine. I spoke with primary team and recommend patient having him seen orthopedic surgery team as outpatient especially with acute wound infection and his neck pain and knee pain is no acute. If patient does have a stroke we'll get the rest of the stroke workup carotid duplex was reported as mildly elevated velocity within the right ICA may reflect mild 50-69 ICA stenosis. Recommend follow-up with vascular surgery team as an outpatient. patient is on aspirin 325 daily and Lipitor 40 mg daily IDs on board PT, OT and BIZTALK CONSULTANT are consulted We'll defer the rest of the medical measure the primary team and other specialist upon discharge recommend the patient to follow-up with a neurologist as an outpatient within 2 weeks. The plan was discussed with the patient and the his nurse Dr. Hughes will resume neurology service tomorrow A.M. Time with Patient: Less than 30
--- NOTE | 2024-01-07 12:18 | P.PN ---
Subjective Progress Note Date: 01/07/24 HISTORY OF PRESENT ILLNESS: This is a 73-year-old male one of my patient with a previous medical history significant for hypertension and hypertensive cardiovascular disease, hyperlipidemia, obesity with obstructive sleep apnea, history of chronic alcohol use and dependence with the peripheral neuropathy, significant spondylosis of the lumbar spine with spinal stenosis and significant chronic low back pain. Patient was seen in my office about a month ago and he was complaining of significant venous ulcerations of the right lower extremity that he was treated for by cephalexin 500 mg orally 3 times every day for 10 days this was followed by another course of oral antibiotic as well as Silvadene to be applied to both lower extremities with Rocky wrap's, I have received a call from his daughter few days ago and stated that his wound ulcers are getting worse and the patient has not followed up with me in the office as he was supposed to I asked her to take him to the emergency department for evaluation, there was some concern about the patient not able to take care of himself at this point in time, he does appear to have a significant venous ulcerations of right leg , he also continues to have significant issues with venous stasis, he does have significant neuropathy as well, patient was seen in the emergency department, there was concern of minimal weakness in the right upper extremity, had a CT scan of the brain did not show evidence of acute abnormalities, but because of the presentation and because of the venous wounds that he has in the right lower extremity he was ad mitted to the hospital he was started on IV antibiotic in the form of vancomycin and cefepime, infectious disease consultation was obtained from Dr. Medina, blood cultures and wound cultures will be obtained as well. plant and equipment worker consultation for discharge planning along with physical therapy evaluation. 01/05: Patient is sitting at the edge of the bed he is feeling better today, he denies any fever or chills, he has not had a bowel movement yet, he will be started on MiraLAX 17 g orally once every day, Senokot 1 tablet orally twice every day, he will be seen in consultation by physical therapy, licensed social worker consultation, patient was seen already by infectious disease, he was switched to cefazolin 2 g IV piggyback every 8 hours, Aquacel silver to the ulceration in the leg, keep the Rocky wrap, keep the leg elevated, continue diuretics for the venous stasis, we will continue to follow the patient very closely, reviewed laboratory evaluation, and will recheck the patient again tomorrow morning. 01/06: Patient was seen by neurology, had CT scan of the cervical spine that showed significant spondylosis with spinal stenosis, continue current treatment plan, his right lower extremity appears better, no fever no chills, he has been tolerating treatment very well, continue Ancef 2 g IV piggyback every 8 hours, continue Aquacel silver for the venous ulcers, patient will likely be transf erred to [facility] tomorrow morning. Patient was seen earlier by neurology and they ordered MRI of the cervical spine as well as the brain patient does not appear to have any acute stroke at this time, his CT scan of the brain is negative, I reviewed his ultrasound of the carotid that showed moderate stenosis of the right internal carotid artery for which the patient has been on aspirin as well as Lipitor 40 mg once every day, patient also does appear to have a significant spondylosis of the cervical spine with spinal stenosis that at this point in time were negative be able to deal with because of his infected venous ulceration in the right lower extremity therefore we are going to cancel or thopedic/spine surgery consult for now. Definitely can be revisited as an outpatient. REVIEW OF SYSTEMS: Constitutional: No documented fever, no chills, no night sweats. No weight change. positive for weakness , reports fatigue reports lethargy. Positive for daytime sleepiness. HEENT: No headache. No blurred vision or double vision, no loss of vision. No loss of Hearing, no ringing in the ears, no dizziness. No nasal drainage or congestion. No epistaxis. No sore throat. Lungs: No shortness of breath, no cough, no sputum production. No wheezing. Reports dyspnea with activity. Cardiovascular: No chest pain, positive for lower extremity edema. No palpitations. No paroxysmal nocturnal dyspnea. No orthopnea. No lightheadedness or dizziness. No syncopal episodes.Positive for nocturia. Abdominal: No abdominal pain. No nausea, vomiting. No diarrhea. No constipation. No bloody or tarry stools . No loss of appetite. Genitourinary: No dysuria, increased frequency, urgency. No urinary retention. Musculoskeletal: positive for neck pain, positive for chronic low back pain, positive for significant pain in both lower extremities with significant neuropathy, positive for gait dysfunction, positive for lower extremity weakness. Integumentary: Positive for venous ulcerations of right lower extremity with cellulitis, no lesions. No rash or pruritus. No unusual bruising. Does appear to have seborrheic dermatitis Neurologic: No aphasia. No facial droop. Memory loss. No head injury. No headache, positive for paresthesia in both lower extremities Psychiatric: Patient does appear to be somewhat depressed, appears to be a bit anxious, no suicidal thoughts or ideation. Endocrine: No abnormal blood sugars, increased weight. PHYSICAL EXAMINATION: General: This is a 73-year-old male who is resting in bed and does not appear to be in acute distress. HEENT: Head is atraumatic, normocephalic, pupils were equal round reactive to light and recommendation, extraocular muscle movement were intact, sclera nonicteric, conjunctivae were pale, mucous membranes of the mouth are somewhat dry. Neck: Supple, no JVP, normal carotid upstroke bilaterally, no lymphadenopathy. Chest: Decreased breath sounds at the bases, few rhonchi, no expiratory wheezes, no chest wall tenderness, no intercostal retractions. Heart: First heart sound is normal, second heart sound is normal there is systolic ejection murmur 2/6 located in the left sternal border. Abdomen: Soft, nontender, nondistended, positive bowel sounds. Extremities: There is chronic significant venous stasis of right lower extremity with a chronic skin changes dorsalis pedis +1 bilaterally, right lower extremity with open wound and fat exposure with cellulitis Neurologic examination: Patient is awake alert and oriented X 3, cranial nerves II-12 appear grossly intact, muscle power were 4 out of 5 in upper extremities and 3out of 5 in bilateral lower extremities, deep tendon reflexes were depressed bilaterally. ASSESSMENT AND PLAN: 1. Subjective weakness of the right upper extremity, patient does not have any neurological deficit on physical examination, CT scan of the brain did not show evidence of acute abnormalities, CT scan of the cervical spine did show evidence of spondylosis with spinal stenosis likely the reason for the right upper extremity symptoms. Cancel spine surgery/orthopedic consult for now as the patient does have an infection with infected venous ulcer. This can be revisited as an outpatient I spoke with the patient about that 2. Right lower extremity cellulitis with wounds due to venous ulceration continue patient on cefazolin 2 g IV piggyback every 8 hours, continue with Aquacel silver, continue with Rocky wrap to the right lower extremity. Keep the leg elevated, continue diuretics. Infectious disease consultation appreciated. 3. Hypertension and hypertensive cardiovascular disease. Continue patient on amlodipine 5 mg daily, losartan 50 mg orally once every day. Will continue to monitor the patient very closely. 4. Hyperlipidemia. Continue atorvastatin 40 mg daily. Keep LDL 55-70. 5. Vascular dementia. We will continue Namenda 10 mg po bid 6. Chronic alcohol use and dependence. patient has quit 7. 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 Patient on oxycodone 10/325 mg 1 tablet every 6 hours as needed, continue baclofen 10 mg orally twice every day as needed. MRI of the cervical spine was ordered by neurology. 8. Bilateral lower extremity neuropathy continue patient on Lyrica 200 mg orally twice every day. MRI of the cervical spine was ordered by neurology to healthcare receptionist the amount of cervical spine stenosis 9. Depression. Continue patient on Cymbalta 60 mg orally once every day. 10. DVT prophylaxis. Continue Lovenox 40 mg subcutaneously every 24 hours. 11. GI prophylaxis. Continue Protonix 40 mg orally once every day. 12. Seborrheic dermatitis start the patient on hydrocortisone cream 2.5% to be applied twice every day 13. plan for the patient to be discharged to [facility] tomorrow afternoon. Objective - Vital Signs Vital signs: Vital Signs Temp 97.8 F 01/07/24 07:00 Pulse 75 01/07/24 07:00 Resp 15 01/07/24 07:00 BP 137/74 01/07/24 07:00 Pulse Ox 99 01/07/24 07:00 FiO2 Intake & Output 01/06/24 01/07/24 01/07/24 18:59 06:59 18:59 Output Total 620 2225 Balance -620 -2225 Output: Urine 620 2225 Other: # Voids 5 # Bowel Movements 1 - Labs CBC & Chem 7: 01/07/24 03:55 01/07/24 03:55 Labs: Abnormal Lab Results - Last 24 Hours (Table) 01/07/24 01/07/24 Range/Units 03:55 03:55 RBC 3.57 L (4.40-5.60) X 10*6/uL Hgb 10.2 L (13.0-17.0) g/dL Hct 32.4 L (39.6-50.0) % MCHC 31.5 L (32.0-37.0) g/dL RDW 16.2 H (11.5-14.5) % BUN 31 H (9-20) mg/dL Total Protein 5.4 L (6.3-8.2) g/dL Albumin 3.0 L (3.5-5.0) g/dL Microbiology - Last 24 Hours (Table) 01/05/24 14:17 Blood Culture - Preliminary Blood 01/05/24 14:07 Blood Culture - Preliminary Blood
--- NOTE | 2024-01-07 17:00 | P.PN ---
Subjective Progress Note Date: 01/07/24 Principal diagnosis: Reason for follow-up is a right lower extremity ulcer and cellulitis Patient is a 73-year-old male with a past medical history significant for hypertension osteoarthritis chronic back pain bilateral lower extremity neuropathy and lymphedema presenting to the hospital for evaluation of right lower extremity swelling and wounds, patient be diagnosed with a likely venous stasis ulcer and secondary cellulitis and admit to the hospital. On today's evaluation that is 01/07/2024, patient has been afebrile, patient is breathing comfortably and is currently on room air, patient denies having any significant cough no chest pain shortness of breath, patient denies nausea vomiting or diarrhea and no abdominal pain, still complaining of swelling to lo wer extremity but denies any worsening pain or drainage. Patient white count is 7.44, creatinine 0.71 Objective - Vital Signs Vital signs: Vital Signs Temp 98.1 F 01/07/24 14:45 Pulse 72 01/07/24 14:45 Resp 15 01/07/24 14:45 BP 135/57 01/07/24 14:45 Pulse Ox 100 01/07/24 14:45 FiO2 Intake & Output 01/06/24 01/07/24 01/07/24 18:59 06:59 18:59 Output Total 620 2225 500 Balance -620 -2225 -500 Output: Urine 620 2225 500 Other: # Voids 5 # Bowel Movements 1 - Exam GENERAL DESCRIPTION: An elderly male lying in bed in no distress RESPIRATORY SYSTEM: Unlabored breathing , decreased breath sounds at bases HEART: S1 S2 regular rate and rhythm , ABDOMEN: Soft , no tenderness EXTREMITIES: Right lower extremity currently covered with a Rocky wrap - Labs CBC & Chem 7: 01/07/24 03:55 01/07/24 03:55 Labs: Abnormal Lab Results - Last 24 Hours (Table) 01/07/24 01/07/24 Range/Units 03:55 03:55 RBC 3.57 L (4.40-5.60) X 10*6/uL Hgb 10.2 L (13.0-17.0) g/dL Hct 32.4 L (39.6-50.0) % MCHC 31.5 L (32.0-37.0) g/dL RDW 16.2 H (11.5-14.5) % BUN 31 H (9-20) mg/dL Total Protein 5.4 L (6.3-8.2) g/dL Albumin 3.0 L (3.5-5.0) g/dL Microbiology - Last 24 Hours (Table) 01/05/24 14:17 Blood Culture - Preliminary Blood 01/05/24 14:07 Blood Culture - Preliminary Blood Assessment and Plan (1) Leg ulcer Current Visit: Yes Status: Acute Code(s): L97.909 - NON-PRS CHRONIC ULC UNSP PRT OF UNSP LOW LEG W UNSP SEVERITY SNOMED Code(s): 78999030 (2) Cellulitis of right leg Current Visit: No Status: Acute Code(s): L03.115 - CELLULITIS OF RIGHT LOWER LIMB SNOMED Code(s): 37310933862312504 Plan: 1patient presented to hospital with right lower extremity pain swelling redness and some superficial ulceration likely venous stasis ulcer with secondary cellulitis likely from gram-positive skin rupali. 2patient currently being treated with cefazolin 2 g every 8 hours with a plan to finish therapy with oral Keflex x 7 days on discharge. 3local wound care with a dry Aquacel silver dressing and Rocky wrap to keep the swelling down, nursing staff has been advised to apply compression stocking to the left leg. Dictation was produced using [employer] dictation software. please excuse any grammatical, word or spelling errors. Time with Patient: Less than 30
[2024-01-07] MEDS: HYDROCORTISONE 1% CREAM 30 GM TUBE TOPICAL SCH (20:54)
[2024-01-07] MEDS: SENNOSIDES-DOCUSATE SODIUM 1 EACH TAB PO STA (22:30)
[2024-01-08 10:49] LABS: ALT 7 U/L (10-49); AST 21 U/L (14-35); Albumin/Globulin Ratio 1.74 Ratio (1.60-3.17); Alkaline Phosphatase 100 U/L (41-126); BUN/Creat Ratio 34.62 Ratio (12.00-20.00); Blood Urea Nitrogen 27.7 mg/dL (9.0-27.0); Calcium 9.4 mg/dL (8.7-10.3); Carbon Dioxide 27.8 mmol/L (21.6-31.8); Chloride 102 mmol/L (96-109); Globulin 2.3 g/dL (1.6-3.3); Glucose 107 mg/dL (70-110); Potassium 4.5 mmol/L (3.5-5.5); Sodium 140 mmol/L (135-145); Total Bilirubin 0.2 mg/dL (0.3-1.2); Total Protein 6.3 g/dL (6.2-8.2)
[2024-01-08 11:13] LABS: Basophils # (A) 0.07 X 10*3/uL (0.00-0.10); Basophils % (A) 0.8 %; Eosinophils # (A) 0.36 X 10*3/uL (0.04-0.35); Eosinophils % (A) 4.3 %; HCT 35.1 % (39.6-50.0); Lymphocytes # (A) 2.83 X 10*3/uL (0.90-5.00); Lymphocytes % (A) 33.6 %; MCH 29.3 pg (27.0-32.0); MCHC 31.3 g/dL (32.0-37.0); MCV 93.4 FL (80.0-97.0); Mean Platelet Volume 10.1 FL (9.5-12.2); Monocytes # (A) 0.95 X 10*3/uL (0.20-1.00); Monocytes % (A) 11.3 %; NRBC Per 100 WBC 0 X 10*3/uL (0.00-0.01); Neutrophils # (A) 4.16 X 10*3/uL (1.80-7.70); Neutrophils % (A) 49.3 %; Platelet Count 324 X 10*3/uL (140-440); RBC 3.76 X 10*6/uL (4.40-5.60); RBC Morphology Normal (Normal); RDW 16.1 % (11.5-14.5); WBC 8.43 X 10*3/uL (4.50-10.00)
--- NOTE | 2024-01-08 12:51 | P.PN ---
Subjective Progress Note Date: 01/08/24 Principal diagnosis: Reason for follow-up is a right lower extremity ulcer and cellulitis Patient is a 73-year-old male with a past medical history significant for hypertension osteoarthritis chronic back pain bilateral lower extremity neuropathy and lymphedema presenting to the hospital for evaluation of right lower extremity swelling and wounds, patient be diagnosed with a likely venous stasis ulcer and secondary cellulitis and admit to the hospital. On today's evaluation that is 01/08/2024,the patient denies any fever or any chills, patient is breathing comfortably on room air, the patient denies chest pain shortness of breath and no significant cough, patient denies abdominal pain, no nausea vomiting or diarrhea overall swelling and discomfort to the leg has decreased in intensity no new symptoms. Patient white count is 8.43, creatinine 0.8 culture has been negative so far Objective - Vital Signs Vital signs: Vital Signs Temp 97.6 F 01/08/24 07:00 Pulse 76 01/08/24 07:00 Resp 16 01/08/24 07:00 BP 131/76 01/08/24 07:00 Pulse Ox 99 01/08/24 07:00 FiO2 Intake & Output 01/07/24 01/08/24 01/08/24 18:59 06:59 18:59 Intake Total 118 Output Total 500 500 Balance -500 -382 Intake: Oral 118 Output: Urine 500 500 Other: Voiding Method Urinal # Voids 3 - Exam GENERAL DESCRIPTION: An elderly male lying in bed in no distress RESPIRATORY SYSTEM: Unlabored breathing , decreased breath sounds at bases HEART: S1 S2 regular rate and rhythm , ABDOMEN: Soft , no tenderness EXTREMITIES: Right lower extremity currently covered with a Rocky wrap - Labs CBC & Chem 7: 01/08/24 06:54 01/08/24 06:54 Labs: Microbiology - Last 24 Hours (Table) 01/05/24 14:17 Blood Culture - Preliminary Blood 01/05/24 14:07 Blood Culture - Preliminary Blood Assessment and Plan (1) Leg ulcer Current Visit: Yes Status: Acute Code(s): L97.909 - NON-PRS CHRONIC ULC UNSP PRT OF UNSP LOW LEG W UNSP SEVERITY SNOMED Code(s): 71312131 (2) Cellulitis of right leg Current Visit: No Status: Acute Code(s): L03.115 - CELLULITIS OF RIGHT LOWER LIMB SNOMED Code(s): 50247168438210281 Plan: 1patient presented to hospital with right lower extremity pain swelling redness and some superficial ulceration likely venous stasis ulcer with secondary cellulitis likely from gram-positive skin rupali. 2local wound care with a dry Aquacel silver dressing and Rocky wrap to keep the swelling down, nursing staff was advised to apply compression stocking to the left leg however that has not been done. 3-patient currently being treated with cefazolin 2 g every 8 hours with a plan to finish therapy with oral Keflex x 7 days on discharge. Questions and concerns answered Dictation was produced using [employer] dictation software. please excuse any grammatical, word or spelling errors. Time with Patient: Less than 30
--- NOTE | 2024-01-08 16:01 | MR ---
EXAMINATION TYPE: MR brain/cspine wo DATE OF EXAM: 01/08/2024 COMPARISON: None HISTORY: Right arm weakness CONTRAST: Performed utilizing 0 mL intravenous Gadavist gadolinium contrast. TECHNIQUE: Multiplanar, multiecho imaging on a 3.0 Stacey magnet is performed through the brain. Stud y is performed within 24 hours of arrival to the hospital. The craniovertebral junction is normal. The pituitary is normal. Diffusion-weighted imaging is performed. No abnormal hyperintensity is present to suggest an acute i ntracranial infarct or acute ischemic change. There are scattered punctate areas of hyperintensity on T2 and Inversion Recovery weighted sequences which are non-specific but can be related to microvascular ischemic changes. Ventricles and sulci are appropriate for the patient age. IMPRESSION: 1. No acute intracranial process. 2. Chronic appearing periventricular and deep white matter ischemic-type changes. EXAMINATION TYPE: MR brain/cspine wo DATE OF EXAM: 01/08/2024 COMPARISON: None HISTORY: Right arm weakness CONTRAST: Performed utilizing 0 mL intravenous Gadavist gadolinium contrast. TECHNIQUE: Multiplanar multiecho imaging on a 3.0 Stacey magnet is performed through the cervical spin e. Motion artifact causes limitation. FINDINGS: The craniovertebral junction is normal. Vertebral body alignment is straightened. Spinal cord maintains normal signal through its visualized course. There is some right paracentral changes at C5-6 with moderate anterior thecal sac compression. This c omes in close approximation with the spinal cord. Some cord flattening may be present through this le silvia. Bilateral foraminal stenosis is present. At C4-5 there is some central focal bulging with moderate anterior thecal sac compression is comes in close approximation of the spinal cord without deformity or compression. IMPRESSION: 1. Right paracentral disc bulging C5-6 with moderate anterior thecal sac compression and cord evelyn chaitanya. 2. Central moderate ascites disc bulge C4-5 without cord contact or cord deformity
--- NOTE | 2024-01-08 19:04 | P.PN ---
Subjective Progress Note Date: 01/08/24 HISTORY OF PRESENT ILLNESS: This is a 73-year-old male one of my patient with a previous medical history significant for hypertension and hypertensive cardiovascular disease, hyperlipidemia, obesity with obstructive sleep apnea, history of chronic alcohol use and dependence with the peripheral neuropathy, significant spondylosis of the lumbar spine with spinal stenosis and significant chronic low back pain. Patient was seen in my office about a month ago and he was complaining of significant venous ulcerations of the right lower extremity that he was treated for by cephalexin 500 mg orally 3 times every day for 10 days this was followed by another course of oral antibiotic as well as Silvadene to be applied to both lower extremities with Rocky wrap's, I have received a call from his daughter few days ago and stated that his wound ulcers are getting worse and the patient has not followed up with me in the office as he was supposed to I asked her to take him to the emergency department for evaluation, there was some concern about the patient not able to take care of himself at this point in time, he does appear to have a significant venous ulcerations of right leg , he also continues to have significant issues with venous stasis, he does have significant neuropathy as well, patient was seen in the emergency department, there was concern of minimal weakness in the right upper extremity, had a CT scan of the brain did not show evidence of acute abnormalities, but because of the presentation and because of the venous wounds that he has in the right lower extremity he was ad mitted to the hospital he was started on IV antibiotic in the form of vancomycin and cefepime, infectious disease consultation was obtained from Dr. Medina, blood cultures and wound cultures will be obtained as well. fish hatchery worker consultation for discharge planning along with physical therapy evaluation. 01/05: Patient is sitting at the edge of the bed he is feeling better today, he denies any fever or chills, he has not had a bowel movement yet, he will be started on MiraLAX 17 g orally once every day, Senokot 1 tablet orally twice every day, he will be seen in consultation by physical therapy, medical social consultant consultation, patient was seen already by infectious disease, he was switched to cefazolin 2 g IV piggyback every 8 hours, Aquacel silver to the ulceration in the leg, keep the Rocky wrap, keep the leg elevated, continue diuretics for the venous stasis, we will continue to follow the patient very closely, reviewed laboratory evaluation, and will recheck the patient again tomorrow morning. 01/06: Patient was seen by neurology, had CT scan of the cervical spine that showed significant spondylosis with spinal stenosis, continue current treatment plan, his right lower extremity appears better, no fever no chills, he has been tolerating treatment very well, continue Ancef 2 g IV piggyback every 8 hours, continue Aquacel silver for the venous ulcers, patient will likely be transf erred to [facility] tomorrow morning. Patient was seen earlier by neurology and they ordered MRI of the cervical spine as well as the brain patient does not appear to have any acute stroke at this time, his CT scan of the brain is negative, I reviewed his ultrasound of the carotid that showed moderate stenosis of the right internal carotid artery for which the patient has been on aspirin as well as Lipitor 40 mg once every day, patient also does appear to have a significant spondylosis of the cervical spine with spinal stenosis that at this point in time were negative be able to deal with because of his infected venous ulceration in the right lower extremity therefore we are going to cancel or thopedic/spine surgery consult for now. Definitely can be revisited as an outpatient. 01/07: Patient is sitting up in his wheelchair, he continues to have some pain in both lower extremities, he is not moving around much, he ambulated with a walker to the desk, patient feels exhausted at this point in time, he continues to be on IV antibiotic, he continues to have local treatment for the right venous ulcer, patient was also scheduled to go for MRI of the brain as well as cervical spine for further evaluation of the spondylosis of the cervical spine, patient will likely be transferred to [facility] hopefully in the next 24 hours, REVIEW OF SYSTEMS: Constitutional: No documented fever, no chills, no night sweats. No weight change. positive for weakness , reports fatigue reports lethargy. Positive for daytime sleepiness. HEENT: No headache. No blurred vision or double vision, no loss of vision. No loss of Hearing, no ringing in the ears, no dizziness. No nasal drainage or congestion. No epistaxis. No sore throat. Lungs: No shortness of breath, no cough, no sputum production. No wheezing. Reports dyspnea with activity. Cardiovascular: No chest pain, positive for lower extremity edema. No palpitations. No paroxysmal nocturnal dyspnea. No orthopnea. No lightheadedness or dizziness. No syncopal episodes.Positive for nocturia. Abdominal: No abdominal pain. No nausea, vomiting. No diarrhea. No constipation. No bloody or tarry stools . No loss of appetite. Genitourinary: No dysuria, increased frequency, urgency. No urinary retention. Musculoskeletal: positive for neck pain, positive for chronic low back pain, positive for significant pain in both lower extremities with significant neuropathy, positive for gait dysfunction, positive for lower extremity w eakness. Integumentary: Positive for venous ulcerations of right lower extremity with cellulitis, no lesions. No rash or pruritus. No unusual bruising. Does appear to have seborrheic dermatitis Neurologic: No aphasia. No facial droop. Memory loss. No head injury. No headache, positive for paresthesia in both lower extremities Psychiatric: Patient does appear to be somewhat depressed, appears to be a bit anxious, no suicidal thoughts or ideation. Endocrine: No abnormal blood sugars, increased weight. PHYSICAL EXAMINATION: General: This is a 73-year-old male who is resting in bed and does not appear to be in acute distress. HEENT: Head is atraumatic, normocephalic, pupils were equal round reactive to light and recommendation, extraocular muscle movement were intact, sclera nonicteric, conjunctivae were pale, mucous membranes of the mouth are somewhat dry. Neck: Supple, no JVP, normal carotid upstroke bilaterally, no lymphadenopathy. Chest: Decreased breath sounds at the bases, few rhonchi, no expiratory wheezes, no chest wall tenderness, no intercostal retractions. Heart: First heart sound is normal, second heart sound is normal there is systolic ejection murmur 2/6 located in the left sternal border. Abdomen: Soft, nontender, nondistended, positive bowel sounds. Extremities: There is chronic significant venous stasis of right lower extremity with a chronic skin changes dorsalis pedis +1 bilaterally, right lower extremity with open wound and fat exposure with cellulitis Neurologic examination: Patient is awake alert and oriented X 3, cranial nerves II-12 appear grossly intact, muscle power were 4 out of 5 in upper extremities and 3out of 5 in bilateral lower extremities, deep tendon reflexes were depressed bilaterally. ASSESSMENT AND PLAN: 1. Subjective weakness of the right upper extremity, patient does not have any neurological deficit on physical examination, CT scan of the brain did not show evidence of acute abnormalities, CT scan of the cervical spine did show evidence of spondylosis with spinal stenosis likely the reason for the right upper extremity symptoms. Cancel spine surgery/orthopedic consult for now as the patient does have an infection with infected venous ulcer. This can be revisited as an outpatient I spoke with the patient about that 2. Right lower extremity cellulitis with wounds due to venous ulceration co ntinue patient on cefazolin 2 g IV piggyback every 8 hours, continue with Aquacel silver, continue with Rocky wrap to the right lower extremity. Keep the leg elevated, continue diuretics. Infectious disease consultation appreciated. 3. Hypertension and hypertensive cardiovascular disease. Continue patient on amlodipine 5 mg daily, losartan 50 mg orally once every day. Will continue to monitor the patient very closely. 4. Hyperlipidemia. Continue atorvastatin 40 mg daily. Keep LDL 55-70. 5. Vascular dementia. We will continue Namenda 10 mg po bid 6. Chronic alcohol use and dependence. patient has quit 7. 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 Patient on oxycodone 10/325 mg 1 tablet every 6 hours as needed, continue baclofen 10 mg orally twice every day as needed. MRI of the cervical spine was ordered by neurology. 8. Bilateral lower extremity neuropathy continue patient on Lyrica 200 mg orally twice every day. MRI of the cervical spine was ordered by neurology to regulator inspector the amount of cervical spine stenosis 9. Depression. Continue patient on Cymbalta 60 mg orally once every day. 10. DVT prophylaxis. Continue Lovenox 40 mg subcutaneously every 24 hours. 11. GI prophylaxis. Continue Protonix 40 mg orally once every day. 12. Seborrheic dermatitis start the patient on hydrocortisone cream 2.5% to be applied twice every day 13. plan for the patient to be discharged to [facility] hopefully tomorrow morning. Objective - Vital Signs Vital signs: Vital Signs Temp 98 F 01/08/24 14:12 Pulse 80 01/08/24 14:12 Resp 18 01/08/24 14:12 BP 145/63 01/08/24 14:12 Pulse Ox 96 01/08/24 14:12 FiO2 Intake & Output 01/08/24 01/08/24 01/09/24 06:59 18:59 06:59 Intake Total 354 Output Total 1075 Balance -721 Intake: Oral 354 Output: Urine 1075 Other: Voiding Method Urinal # Voids 3 - Labs CBC & Chem 7: 01/08/24 06:54 01/08/24 06:54 Labs: Abnormal Lab Results - Last 24 Hours (Table) 01/08/24 01/08/24 Range/Units 06:54 06:54 RBC 3.76 L (4.40-5.60) X 10*6/uL Hgb 11.0 L (13.0-17.0) g/dL Hct 35.1 L (39.6-50.0) % MCHC 31.3 L (32.0-37.0) g/dL RDW 16.1 H (11.5-14.5) % Immature Gran # 0.06 H (0.00-0.04) X 10*3/uL Eosinophils # 0.36 H (0.04-0.35) X 10*3/uL BUN 27.7 H (9.0-27.0) mg/dL BUN/Creatinine Ratio 34.62 H (12.00-20.00) Ratio Total Bilirubin 0.2 L (0.3-1.2) mg/dL ALT 7 L (10-49) U/L Microbiology - Last 24 Hours (Table) 01/05/24 14:17 Blood Culture - Preliminary Blood 01/05/24 14:07 Blood Culture - Preliminary Blood
[2024-01-08] MEDS ORDERED: oxyCODONE-APAP 10-325MG 1 EACH TAB PO SCH (20:00)
[2024-01-08] MEDS: oxyCODONE-APAP 10-325MG 1 EACH TAB PO SCH ×2 (23:29→23:45)
[2024-01-09 11:25] LABS: Basophils # (A) 0.06 X 10*3/uL (0.00-0.10); Basophils % (A) 0.7 %; Eosinophils # (A) 0.37 X 10*3/uL (0.04-0.35); Eosinophils % (A) 4.1 %; HCT 30.8 % (39.6-50.0); HGB 9.6 g/dL (13.0-17.0); Lymphocytes # (A) 2.58 X 10*3/uL (0.90-5.00); Lymphocytes % (A) 28.3 %; MCH 28.4 pg (27.0-32.0); MCHC 31.2 g/dL (32.0-37.0); MCV 91.1 FL (80.0-97.0); Mean Platelet Volume 11.5 FL (9.5-12.2); Monocytes # (A) 1.24 X 10*3/uL (0.20-1.00); Monocytes % (A) 13.6 %; NRBC Per 100 WBC 0 X 10*3/uL (0.00-0.01); Neutrophils # (A) 4.81 X 10*3/uL (1.80-7.70); Neutrophils % (A) 52.8 %; Platelet Count 180 X 10*3/uL (140-440); RBC 3.38 X 10*6/uL (4.40-5.60); RBC Morphology Normal (Normal); RDW 16.1 % (11.5-14.5); WBC 9.11 X 10*3/uL (4.50-10.00)
[2024-01-09 11:26] LABS: ALT 5 U/L (10-49); AST 15 U/L (14-35); Albumin 3.5 g/dL (3.8-4.9); Albumin/Globulin Ratio 1.94 Ratio (1.60-3.17); Alkaline Phosphatase 86 U/L (41-126); BUN/Creat Ratio 37.75 Ratio (12.00-20.00); Blood Urea Nitrogen 30.2 mg/dL (9.0-27.0); Calcium 8.5 mg/dL (8.7-10.3); Carbon Dioxide 26.4 mmol/L (21.6-31.8); Chloride 104 mmol/L (96-109); Globulin 1.8 g/dL (1.6-3.3); Glucose 106 mg/dL (70-110); Potassium 4.4 mmol/L (3.5-5.5); Sodium 137 mmol/L (135-145); Total Bilirubin <0.2 mg/dL (0.3-1.2); Total Protein 5.3 g/dL (6.2-8.2)
--- NOTE | 2024-01-09 15:42 | P.PN ---
Subjective Progress Note Date: 01/09/24 HISTORY OF PRESENT ILLNESS: This is a 73-year-old male one of my patient with a previous medical history significant for hypertension and hypertensive cardiovascular disease, hyperlipidemia, obesity with obstructive sleep apnea, history of chronic alcohol use and dependence with the peripheral neuropathy, significant spondylosis of the lumbar spine with spinal stenosis and significant chronic low back pain. Patient was seen in my office about a month ago and he was complaining of significant venous ulcerations of the right lower extremity that he was treated for by cephalexin 500 mg orally 3 times every day for 10 days this was followed by another course of oral antibiotic as well as Silvadene to be applied to both lower extremities with Rocky wrap's, I have received a call from his daughter few days ago and stated that his wound ulcers are getting worse and the patient has not followed up with me in the office as he was supposed to I asked her to take him to the emergency department for evaluation, there was some concern about the patient not able to take care of himself at this point in time, he does appear to have a significant venous ulcerations of right leg , he also continues to have significant issues with venous stasis, he does have significant neuropathy as well, patient was seen in the emergency department, there was concern of minimal weakness in the right upper extremity, had a CT scan of the brain did not show evidence of acute abnormalities, but because of the presentation and because of the venous wounds that he has in the right lower extremity he was ad mitted to the hospital he was started on IV antibiotic in the form of vancomycin and cefepime, infectious disease consultation was obtained from Dr. Medina, blood cultures and wound cultures will be obtained as well. hops farmworker consultation for discharge planning along with physical therapy evaluation. 01/05: Patient is sitting at the edge of the bed he is feeling better today, he denies any fever or chills, he has not had a bowel movement yet, he will be started on MiraLAX 17 g orally once every day, Senokot 1 tablet orally twice every day, he will be seen in consultation by physical therapy, secondary social studies teacher consultation, patient was seen already by infectious disease, he was switched to cefazolin 2 g IV piggyback every 8 hours, Aquacel silver to the ulceration in the leg, keep the Rocky wrap, keep the leg elevated, continue diuretics for the venous stasis, we will continue to follow the patient very closely, reviewed laboratory evaluation, and will recheck the patient again tomorrow morning. 01/06: Patient was seen by neurology, had CT scan of the cervical spine that showed significant spondylosis with spinal stenosis, continue current treatment plan, his right lower extremity appears better, no fever no chills, he has been tolerating treatment very well, continue Ancef 2 g IV piggyback every 8 hours, continue Aquacel silver for the venous ulcers, patient will likely be transf erred to [facility] tomorrow morning. Patient was seen earlier by neurology and they ordered MRI of the cervical spine as well as the brain patient does not appear to have any acute stroke at this time, his CT scan of the brain is negative, I reviewed his ultrasound of the carotid that showed moderate stenosis of the right internal carotid artery for which the patient has been on aspirin as well as Lipitor 40 mg once every day, patient also does appear to have a significant spondylosis of the cervical spine with spinal stenosis that at this point in time were negative be able to deal with because of his infected venous ulceration in the right lower extremity therefore we are going to cancel or thopedic/spine surgery consult for now. Definitely can be revisited as an outpatient. 01/07: Patient is sitting up in his wheelchair, he continues to have some pain in both lower extremities, he is not moving around much, he ambulated with a walker to the desk, patient feels exhausted at this point in time, he continues to be on IV antibiotic, he continues to have local treatment for the right venous ulcer, patient was also scheduled to go for MRI of the brain as well as cervical spine for further evaluation of the spondylosis of the cervical spine, patient will likely be transferred to [facility] hopefully in the next 24 hours. 01/08: Patient is currently sitting in his wheelchair. Pain seems to be better controlled today however patient complains of constipation. Start lactulose 20 g 3 times a day until constipation is resolved. Continue antibiotic and wound care as ordered for right lower extremity venous ulcer. MRI of the brain and cervical spine was ordered by neurology. MRI of the cervical spine shows right paracentral disc bulging C5-C6 with moderate anterior thecal sac compression and cord compression. Plan was for patient to go to [facility] today; however, he was denied. Social work to explore and discuss alternate placement options with patient. REVIEW OF SYSTEMS: Constitutional: No documented fever, no chills, no night sweats. No weight change. positive for weakness , reports fatigue reports lethargy. Positive for daytime sleepiness. HEENT: No headache. No blurred vision or double vision, no loss of vision. No loss of Hearing, no ringing in the ears, no dizziness. No nasal drainage or congestion. No epistaxis. No sore throat. Lungs: No shortness of breath, no cough, no sputum production. No wheezing. Reports dyspnea with activity. Cardiovascular: No chest pain, positive for lower extremity edema. No palpitations. No paroxysmal nocturnal dyspnea. No orthopnea. No lightheadedness or dizziness. No syncopal episodes.Positive for nocturia. Abdominal: No abdominal pain. No nausea, vomiting. No diarrhea. Positive constipation. No bloody or tarry stools . No loss of appetite. Genitourinary: No dysuria, increased frequency, urgency. No urinary retention. Musculoskeletal: positive for neck pain, positive for chronic low back pain, positive for significant pain in both lower extremities with significant neuropathy, positive for gait dysfunction, positive for lower extremity weakness. Integumentary: Positive for venous ulcerations of right lower extremity with cellulitis, no lesions. No rash or pruritus. No unusual bruising. Does appear to have seborrheic dermatitis Neurologic: No aphasia. No facial droop. Memory loss. No head injury. No headache, positive for paresthesia in both lower extremities Psychiatric: Patient does appear to be somewhat depressed, appears to be a bit anxious, no suicidal thoughts or ideation. Endocrine: No abnormal blood sugars, increased weight. PHYSICAL EXAMINATION: General: This is a 73-year-old male who is resting in bed and does not appear to be in acute distress. HEENT: Head is atraumatic, normocephalic, pupils were equal round reactive to light and recommendation, extraocular muscle movement were intact, sclera nonicteric, conjunctivae were pale, mucous membranes of the mouth are somewhat dry. Neck: Supple, no JVP, normal carotid upstroke bilaterally, no lymphadenopathy. Chest: Decreased breath sounds at the bases, few rhonchi, no expiratory wheezes, no chest wall tenderness, no intercostal retractions. Heart: First heart sound is normal, second heart sound is normal there is systolic ejection murmur 2/6 located in the left sternal border. Abdomen: Soft, nontender, nondistended, positive bowel sounds. Extremities: There is chronic significant venous stasis of right lower extremity with a chronic skin changes dorsalis pedis +1 bilaterally, right lower extremity with open wound and fat exposure with cellulitis. Neurologic examination: Patient is awake alert and oriented X 3, cranial nerves II-12 appear grossly intact, muscle power were 4 out of 5 in upper extremities and 3 out of 5 in bilateral lower extremities, deep tendon reflexes were depres sed bilaterally. ASSESSMENT AND PLAN: 1. Subjective weakness of the right upper extremity, patient does not have any neurological deficit on physical examination, CT scan of the brain did not show evidence of acute abnormalities, CT scan of the cervical spine did show evidence of spondylosis with spinal stenosis likely the reason for the right upper extremity symptoms. Cancel spine surgery/orthopedic consult for now as the patient does have an infection with infected venous ulcer. This can be revisited as an outpatient I spoke with the patient about that. 2. Right lower extremity cellulitis with wounds due to venous ulceration continue patient on cefazolin 2 g IV piggyback every 8 hours, continue with Aquacel silver, continue with Rocky wrap to the right lower extremity. Keep the leg elevated, continue diuretics. Infectious disease consultation appreciated. 3. Hypertension and hypertensive cardiovascular disease. Continue patient on amlodipine 5 mg daily, losartan 50 mg orally once every day. Will continue to monitor the patient very closely. 4. Hyperlipidemia. Continue atorvastatin 40 mg daily. Keep LDL 55-70. 5. Vascular dementia. We will continue Namenda 10 mg po bid. 6. Chronic alcohol use and dependence. Patient has quit. 7. 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 Patient on oxycodone 10/325 mg 1 tablet every 6 hours as needed, continue baclofen 10 mg orally twice every day as needed. MRI of the cervical spine shows right paracentral disc bulging C5-C6 with moderate anterior thecal sac compression and cord compression. We will revisit orthopedic consult and spine surgeon referral for outpatient. 8. Bilateral lower extremity neuropathy continue patient on Lyrica 200 mg orally twice every day. MRI of the cervical spine was ordered by neurology to specialty therapist the amount of cervical spine stenosis. MRI of the cervical spine shows right paracentral disc bulging C5-C6 with moderate anterior thecal sac compression and cord compression. 9. Depression. Continue patient on Cymbalta 60 mg orally once every day. 10. DVT prophylaxis. Continue Lovenox 40 mg subcutaneously every 24 hours. 11. GI prophylaxis. Continue Protonix 40 mg orally once every day. 12. Seborrheic dermatitis. Start the patient on hydrocortisone cream 2.5% to be applied twice every day. 13. Constipation. Start Lactulose 20 g TID. 14. Patient was denied by [facility], social work looking at alternative placement. Impression and plan of care have been directed as dictated by the signing physician. Jazlyn Cee, nurse practitioner acting as scribe for signing physician. Objective - Vital Signs Vital signs: Vital Signs Temp 97.7 F 01/09/24 07:00 Pulse 77 01/09/24 08:00 Resp 16 01/09/24 08:00 BP 102/60 01/09/24 07:00 Pulse Ox 98 01/09/24 07:00 FiO2 Intake & Output 01/08/24 01/09/24 01/09/24 18:59 06:59 18:59 Intake Total 354 118 Output Total 1075 400 Balance -721 -282 Intake: Oral 354 118 Output: Urine 1075 400 Other: Voiding Method Urinal # Voids 3 - Labs CBC & Chem 7: 01/09/24 07:31 01/09/24 07:31 Labs: Abnormal Lab Results - Last 24 Hours (Table) 01/09/24 01/09/24 Range/Units 07:31 07:31 RBC 3.38 L (4.40-5.60) X 10*6/uL Hgb 9.6 L (13.0-17.0) g/dL Hct 30.8 L (39.6-50.0) % MCHC 31.2 L (32.0-37.0) g/dL RDW 16.1 H (11.5-14.5) % Immature Gran # 0.05 H (0.00-0.04) X 10*3/uL Monocytes # 1.24 H (0.20-1.00) X 10*3/uL Eosinophils # 0.37 H (0.04-0.35) X 10*3/uL BUN 30.2 H (9.0-27.0) mg/dL BUN/Creatinine Ratio 37.75 H (12.00-20.00) Ratio Calcium 8.5 L (8.7-10.3) mg/dL Total Bilirubin <0.2 L (0.3-1.2) mg/dL ALT 5 L (10-49) U/L Total Protein 5.3 L (6.2-8.2) g/dL Albumin 3.5 L (3.8-4.9) g/dL Microbiology - Last 24 Hours (Table) 01/05/24 14:17 Blood Culture - Preliminary Blood 01/05/24 14:07 Blood Culture - Preliminary Blood
[2024-01-09] MEDS: LACTULOSE 20 GM/30 ML CUP PO SCH (16:43)
[2024-01-10 08:34] LABS: Basophils # (A) 0.1 k/uL (0-0.2); Basophils % (A) 1 %; Eosinophils # (A) 0.4 k/uL (0-0.7); Eosinophils % (A) 5 %; HCT 31.2 % (39.0-53.0); Lymphocytes # (A) 2.4 k/uL (1.0-4.8); Lymphocytes % (A) 32 %; MCH 29.2 pg (25.0-35.0); MCHC 31.4 g/dL (31.0-37.0); Monocytes # (A) 0.7 k/uL (0-1.0); Monocytes % (A) 10 %; Neutrophils # (A) 3.7 k/uL (1.3-7.7); Neutrophils % (A) 50 %; Platelet Count 341 k/uL (150-450); RBC 3.36 m/uL (4.30-5.90); RDW 15.3 % (11.5-15.5); WBC 7.3 k/uL (3.8-10.6)
[2024-01-10 08:36] LABS: HGB 9.8 gm/dL (13.0-17.5)
[2024-01-10 08:39] LABS: ALT 7 U/L (4-49); AST 18 U/L (17-59); African American GFR (CKD) >90 (>60 ml/min/1.73 sqM); Albumin 3.1 g/dL (3.5-5.0); Albumin/Globulin Ratio 1.3; Alkaline Phosphatase 82 U/L (38-126); Anion Gap 4 mmol/L; Blood Urea Nitrogen 30 mg/dL (9-20); Calcium 8.6 mg/dL (8.4-10.2); Carbon Dioxide 28 mmol/L (22-30); Chloride 103 mmol/L (98-107); Globulin 2.3 g/dL; Glucose 114 mg/dL (74-99); Non-African American GFR(CKD) >90 (>60 ml/min/1.73 sqM); Potassium 4.1 mmol/L (3.5-5.1); Sodium 135 mmol/L (137-145); Total Bilirubin 0.2 mg/dL (0.2-1.3); Total Protein 5.4 g/dL (6.3-8.2)
--- NOTE | 2024-01-10 16:21 | P.PN ---
Subjective Progress Note Date: 01/10/24 HISTORY OF PRESENT ILLNESS: This is a 73-year-old male one of my patient with a previous medical history significant for hypertension and hypertensive cardiovascular disease, hyperlipidemia, obesity with obstructive sleep apnea, history of chronic alcohol use and dependence with the peripheral neuropathy, significant spondylosis of the lumbar spine with spinal stenosis and significant chronic low back pain. Patient was seen in my office about a month ago and he was complaining of significant venous ulcerations of the right lower extremity that he was treated for by cephalexin 500 mg orally 3 times every day for 10 days this was followed by another course of oral antibiotic as well as Silvadene to be applied to both lower extremities with Rocky wrap's, I have received a call from his daughter few days ago and stated that his wound ulcers are getting worse and the patient has not followed up with me in the office as he was supposed to I asked her to take him to the emergency department for evaluation, there was some concern about the patient not able to take care of himself at this point in time, he does appear to have a significant venous ulcerations of right leg , he also continues to have significant issues with venous stasis, he does have significant neuropathy as well, patient was seen in the emergency department, there was concern of minimal weakness in the right upper extremity, had a CT scan of the brain did not show evidence of acute abnormalities, but because of the presentation and because of the venous wounds that he has in the right lower extremity he was ad mitted to the hospital he was started on IV antibiotic in the form of vancomycin and cefepime, infectious disease consultation was obtained from Dr. Medina, blood cultures and wound cultures will be obtained as well. sawmill relief worker consultation for discharge planning along with physical therapy evaluation. 01/05: Patient is sitting at the edge of the bed he is feeling better today, he denies any fever or chills, he has not had a bowel movement yet, he will be started on MiraLAX 17 g orally once every day, Senokot 1 tablet orally twice every day, he will be seen in consultation by physical therapy, social media campaign manager consultation, patient was seen already by infectious disease, he was switched to cefazolin 2 g IV piggyback every 8 hours, Aquacel silver to the ulceration in the leg, keep the Rocky wrap, keep the leg elevated, continue diuretics for the venous stasis, we will continue to follow the patient very closely, reviewed laboratory evaluation, and will recheck the patient again tomorrow morning. 01/06: Patient was seen by neurology, had CT scan of the cervical spine that showed significant spondylosis with spinal stenosis, continue current treatment plan, his right lower extremity appears better, no fever no chills, he has been tolerating treatment very well, continue Ancef 2 g IV piggyback every 8 hours, continue Aquacel silver for the venous ulcers, patient will likely be transf erred to [facility] tomorrow morning. Patient was seen earlier by neurology and they ordered MRI of the cervical spine as well as the brain patient does not appear to have any acute stroke at this time, his CT scan of the brain is negative, I reviewed his ultrasound of the carotid that showed moderate stenosis of the right internal carotid artery for which the patient has been on aspirin as well as Lipitor 40 mg once every day, patient also does appear to have a significant spondylosis of the cervical spine with spinal stenosis that at this point in time were negative be able to deal with because of his infected venous ulceration in the right lower extremity therefore we are going to cancel or thopedic/spine surgery consult for now. Definitely can be revisited as an outpatient. 01/07: Patient is sitting up in his wheelchair, he continues to have some pain in both lower extremities, he is not moving around much, he ambulated with a walker to the desk, patient feels exhausted at this point in time, he continues to be on IV antibiotic, he continues to have local treatment for the right venous ulcer, patient was also scheduled to go for MRI of the brain as well as cervical spine for further evaluation of the spondylosis of the cervical spine, patient will likely be transferred to [facility] hopefully in the next 24 hours. 01/08: Patient is currently sitting in his wheelchair. Pain seems to be better controlled today however patient complains of constipation. Start lactulose 20 g 3 times a day until constipation is resolved. Continue antibiotic and wound care as ordered for right lower extremity venous ulcer. MRI of the brain and cervical spine was ordered by neurology. MRI of the cervical spine shows right paracentral disc bulging C5-C6 with moderate anterior thecal sac compression and cord compression. Plan was for patient to go to [facility] today; however, he was denied. Social work to explore and discuss alternate placement options with patient. 01/09: Patient is currently sitting up in his wheelchair stating that his pain is 8 out of 10; however, seems to be quite comfortable. Continue current pain control regimen. Continue cefazolin 2 g every 8 hours. Continue Aquacel to right lower extremity venous ulcer every 48 hours. Per social work, Adult Protective Services is now involved due to prior living conditions and patient recently being evicted from his home. Social work is working on placement in a assisted facility however the current barrier is that patient does not have a home to return to upon discharge from the facility. Social work is also recommending guardianship and psychiatric evaluation and daughter is on board. Patient states that he feels one of his brothers would be willing to temporarily house him but that confirmation needs to be made prior to placement. Discharge pending until arrangements for both rehabilitation and permanent housing can be made. REVIEW OF SYSTEMS: Constitutional: No documented fever, no chills, no night sweats. No weight change. positive for weakness , reports fatigue reports lethargy. Positive for daytime sleepiness. HEENT: No headache. No blurred vision or double vision, no loss of vision. No loss of Hearing, no ringing in the ears, no dizziness. No nasal drainage or congestion. No epistaxis. No sore throat. Lungs: No shortness of breath, no cough, no sputum production. No wheezing. Reports dyspnea with activity. Cardiovascular: No chest pain, positive for lower extremity edema. No palpitations. No paroxysmal nocturnal dyspnea. No orthopnea. No lightheadedness or dizziness. No syncopal episodes.Positive for nocturia. Abdominal: No abdominal pain. No nausea, vomiting. No diarrhea. Positive constipation. No bloody or tarry stools . No loss of appetite. Genitourinary: No dysuria, increased frequency, urgency. No urinary retention. Musculoskeletal: positive for neck pain, positive for chronic low back pain, positive for significant pain in both lower extremities with significant neuropathy, positive for gait dysfunction, positive for lower extremity weak ness. Integumentary: Positive for venous ulcerations of right lower extremity with cellulitis, no lesions. No rash or pruritus. No unusual bruising. Does appear to have seborrheic dermatitis Neurologic: No aphasia. No facial droop. Memory loss. No head injury. No headache, positive for paresthesia in both lower extremities Psychiatric: Patient does appear to be somewhat depressed, appears to be a bit anxious, no suicidal thoughts or ideation. Endocrine: No abnormal blood sugars, increased weight. PHYSICAL EXAMINATION: General: This is a 73-year-old male who is resting in bed and does not appear to be in acute distress. HEENT: Head is atraumatic, normocephalic, pupils were equal round reactive to light and recommendation, extraocular muscle movement were intact, sclera n onicteric, conjunctivae were pale, mucous membranes of the mouth are somewhat dry. Neck: Supple, no JVP, normal carotid upstroke bilaterally, no lymphadenopathy. Chest: Decreased breath sounds at the bases, few rhonchi, no expiratory wheezes, no chest wall tenderness, no intercostal retractions. Heart: First heart sound is normal, second heart sound is normal there is systolic ejection murmur 2/6 located in the left sternal border. Abdomen: Soft, nontender, nondistended, positive bowel sounds. Extremities: There is chronic significant venous stasis of right lower extremity with a chronic skin changes dorsalis pedis +1 bilaterally, right lower extremity with open wound and fat exposure with cellulitis. Neurologic examination: Patient is awake alert and oriented X 3, cranial nerves II-12 appear grossly intact, muscle power were 4 out of 5 in upper extremities and 3 out of 5 in bilateral lower extremities, deep tendon reflexes were depressed bilaterally. ASSESSMENT AND PLAN: 1. Subjective weakness of the right upper extremity, patient does not have any neurological deficit on physical examination, CT scan of the brain did not show evidence of acute abnormalities, CT scan of the cervical spine did show evidence of spondylosis with spinal stenosis likely the reason for the right upper extremity symptoms. Cancel spine surgery/orthopedic consult for now as the patient does have an infection with infected venous ulcer. This can be revisited as an outpatient I spoke with the patient about that. 2. Right lower extremity cellulitis with wounds due to venous ulceration cont inue patient on cefazolin 2 g IV piggyback every 8 hours, continue with Aquacel silver, continue with Rocky wrap to the right lower extremity. Keep the leg elevated, continue diuretics. Infectious disease consultation appreciated. 3. Hypertension and hypertensive cardiovascular disease. Continue patient on amlodipine 5 mg daily, losartan 50 mg orally once every day. Will continue to monitor the patient very closely. 4. Hyperlipidemia. Continue atorvastatin 40 mg daily. Keep LDL 55-70. 5. Vascular dementia. We will continue Namenda 10 mg po bid. 6. Chronic alcohol use and dependence. Patient has quit. 7. Spondylosis of the cervical spine and lumbar spine with a chronic pain synd alistair. Patient on oxycodone 10/325 mg 1 tablet every 6 hours as needed, continue baclofen 10 mg orally twice every day as needed. MRI of the cervical spine shows right paracentral disc bulging C5-C6 with moderate anterior thecal sac compression and cord compression. We will revisit orthopedic consult and spine surgeon referral for outpatient. 8. Bilateral lower extremity neuropathy continue patient on Lyrica 200 mg orally twice every day. MRI of the cervical spine was ordered by neurology to call center coordinator the amount of cervical spine stenosis. MRI of the cervical spine shows right paracentral disc bulging C5-C6 with moderate anterior thecal sac compression and cord compression. 9. Depression. Continue patient on Cymbalta 60 mg orally once every day. 10. DVT prophylaxis. Continue Lovenox 40 mg subcutaneously every 24 hours. 11. GI prophylaxis. Continue Protonix 40 mg orally once every day. 12. Seborrheic dermatitis. Start the patient on hydrocortisone cream 2.5% to be applied twice every day. 13. Constipation. Start Lactulose 20 g TID. 14. Social work is working on both permanent housing and assisted facility placement. Adult Protective Services are involved. Discharge pending. Impression and plan of care have been directed as dictated by the signing physician. Jazlyn Cee, nurse practitioner acting as scribe for signing physician. Objective - Vital Signs Vital signs: Vital Signs Temp 98.1 F 01/10/24 14:22 Pulse 78 01/10/24 14:22 Resp 16 01/10/24 14:22 BP 139/67 01/10/24 14:22 Pulse Ox 98 01/10/24 14:22 FiO2 Intake & Output 01/09/24 01/10/24 01/10/24 18:59 06:59 18:59 Intake Total 236 476 Output Total 400 Balance -164 476 Weight 136.078 kg 129.546 kg Intake: Oral 236 476 Output: Urine 400 Other: Voiding Method Urinal Urinal Urinal # Voids 2 3 - Labs CBC & Chem 7: 01/10/24 07:28 01/10/24 07:28 Labs: Abnormal Lab Results - Last 24 Hours (Table) 01/10/24 01/10/24 Range/Units 07:28 07:28 RBC 3.36 L (4.30-5.90) m/uL Hgb 9.8 L D (13.0-17.5) gm/dL Hct 31.2 L (39.0-53.0) % Sodium 135 L (137-145) mmol/L BUN 30 H (9-20) mg/dL Glucose 114 H (74-99) mg/dL Total Protein 5.4 L (6.3-8.2) g/dL Albumin 3.1 L (3.5-5.0) g/dL
[2024-01-10] MEDS: BACLOFEN 10 MG TAB PO PRN (20:12)
[2024-01-11 06:28] LABS: Basophils % (A) 1 %; Eosinophils # (A) 0.4 k/uL (0-0.7); Eosinophils % (A) 5 %; HGB 10.2 gm/dL (13.0-17.5); Lymphocytes # (A) 1.7 k/uL (1.0-4.8); Lymphocytes % (A) 20 %; MCHC 30.8 g/dL (31.0-37.0); MCV 94.1 fL (80.0-100.0); Mean Platelet Volume 7.6; Monocytes # (A) 0.8 k/uL (0-1.0); Monocytes % (A) 9 %; Neutrophils # (A) 5.5 k/uL (1.3-7.7); Neutrophils % (A) 64 %; Platelet Count 338 k/uL (150-450); RDW 15.5 % (11.5-15.5); WBC 8.6 k/uL (3.8-10.6)
[2024-01-11 06:48] LABS: ALT 7 U/L (4-49); AST 19 U/L (17-59); African American GFR (CKD) >90 (>60 ml/min/1.73 sqM); Albumin 3.3 g/dL (3.5-5.0); Albumin/Globulin Ratio 1.3; Alkaline Phosphatase 96 U/L (38-126); Anion Gap 4 mmol/L; Blood Urea Nitrogen 26 mg/dL (9-20); Calcium 8.7 mg/dL (8.4-10.2); Carbon Dioxide 29 mmol/L (22-30); Chloride 103 mmol/L (98-107); Globulin 2.5 g/dL; Glucose 100 mg/dL (74-99); Non-African American GFR(CKD) >90 (>60 ml/min/1.73 sqM); Potassium 4.3 mmol/L (3.5-5.1); Sodium 136 mmol/L (137-145); Total Bilirubin 0.2 mg/dL (0.2-1.3); Total Protein 5.8 g/dL (6.3-8.2)
--- NOTE | 2024-01-11 12:37 | P.PN ---
Subjective Progress Note Date: 01/10/24 Patient was seen for a follow-up. Patient initially seen by Dr. Garrick Sales. Please refer to his note for details. 73-year-old male with wound infection. Patient has subjective right-sided weakness and neck pain. MRI of the brain and cervical spine were ordered by Dr. Sales. Patient was seen for follow-up. Patient is sitting in the wheelchair, very pleasant in no distress. Patient is having multiple issues going on. He has bad knees, and requires both knee replacement. He has open wound x 2 in the right leg. He has lymphedema in both legs. Patient has chronic low back pain, with previous history of 3 back surgeries. Patient admits to having right-sided neck pain which she rates 9/10. Also notices right hand weakness. It has affected his handwriting, cannot unscrew Bottle of pop. This has been going on for about 1 to 2 months. He states that he cannot sleep more than 2 hours/day due to pain. Patient states that Lyrica and Percocet brings down pain to 4-5/10 but only for 2 hours and then it comes right back. He complains of 8-9 pain in bilateral legs from neuropathy. Patient denies any history of neck injury. Some of the workup during his hospital visit consisted of: lipid panel is a triglyceride of 82, cholesterol is 126, LDL 68 and HDL is [address] of the head is reported as no acute intracranial process. I personally reviewed the CT and I agree with the report. carotid duplex is reported as mildly elevated velocity within the right ICA may reflect mild 50-69 ICA stenosis. 2D echo: it is reported as normal left ventricle function. Small pericardial effusion. CT cervical spine was reported as moderate to advanced spondylitic changes th roughout the cervical spine. Degenerative grade 1 anterolisthesis C2-C3. Suspected at least moderate spinal canal stenosis at C3-C4 and C4-C5 with the AP canal diminished narrowed down to 6 mm or less. Objective - Vital Signs Vital signs: Vital Signs Temp 97.7 F 01/10/24 07:00 Pulse 74 01/10/24 08:00 Resp 18 01/10/24 08:00 BP 122/71 01/10/24 07:00 Pulse Ox 99 01/10/24 07:00 FiO2 Intake & Output 01/09/24 01/10/24 01/10/24 18:59 06:59 18:59 Intake Total 236 240 Output Total 400 Balance -164 240 Weight 136.078 kg 129.546 kg Intake: Oral 236 240 Output: Urine 400 Other: Voiding Method Urinal Urinal Urinal # Voids 2 - Exam Patient's mental status, cranial nerves are normal. Speech and language functio ns are normal. On muscle strength testing (right/left) biceps 4+5-/5, triceps 5/5, traffic court magistrate 4+5-/5 Patient is in a wheelchair. He has significant lymphedema. - Labs CBC & Chem 7: 01/11/24 06:04 01/11/24 06:04 Labs: Abnormal Lab Results - Last 24 Hours (Table) 01/09/24 01/09/24 01/10/24 Range/Units 07:31 07:31 07:28 RBC 3.38 L 3.36 L (4.40-5.60) X 10*6/uL Hgb 9.6 L 9.8 L D (13.0-17.0) g/dL Hct 30.8 L 31.2 L (39.6-50.0) % MCHC 31.2 L (32.0-37.0) g/dL RDW 16.1 H (11.5-14.5) % Immature Gran # 0.05 H (0.00-0.04) X 10*3/uL Monocytes # 1.24 H (0.20-1.00) X 10*3/uL Eosinophils # 0.37 H (0.04-0.35) X 10*3/uL Sodium (137-145) mmol/L BUN 30.2 H (9.0-27.0) mg/dL BUN/Creatinine Ratio 37.75 H (12.00-20.00) Ratio Glucose (74-99) mg/dL Calcium 8.5 L (8.7-10.3) mg/dL Total Bilirubin <0.2 L (0.3-1.2) mg/dL ALT 5 L (10-49) U/L Total Protein 5.3 L (6.2-8.2) g/dL Albumin 3.5 L (3.8-4.9) g/dL 01/10/24 Range/Units 07:28 RBC (4.40-5.60) X 10*6/uL Hgb (13.0-17.0) g/dL Hct (39.6-50.0) % MCHC (32.0-37.0) g/dL RDW (11.5-14.5) % Immature Gran # (0.00-0.04) X 10*3/uL Monocytes # (0.20-1.00) X 10*3/uL Eosinophils # (0.04-0.35) X 10*3/uL Sodium 135 L (137-145) mmol/L BUN 30 H (9.0-27.0) mg/dL BUN/Creatinine Ratio (12.00-20.00) Ratio Glucose 114 H (74-99) mg/dL Calcium (8.7-10.3) mg/dL Total Bilirubin (0.3-1.2) mg/dL ALT (10-49) U/L Total Protein 5.4 L (6.2-8.2) g/dL Albumin 3.1 L (3.8-4.9) g/dL Assessment and Plan Assessment: this is a 73-year-old gentleman who presents because of right lower extremity wound. He states that he is having right upper extremity weakness and numbness for the last 1 month. Subjective right upper extremity weakness and numbness. CT of the head is unremarkable. Has cervical stenosis/spodylosis on CT. Right lower extremity cellulitis hypertension History of underlying vascular dementia chronic lower back pain and had 3 surgeries with residual numbness in the right lower bilateral lower extremity neuropathy Hyperlipidemia Chronic alcohol use Plan: MRI of the brain revealed no acute intracranial process. Chronic appearing periventricular and deep white matter ischemic type changes. I personally r rituiewed MRI agree with the findings. MRI of the cervical spine revealed right paracentral disc bulging C5-6 with moderate anterior thecal sac compression and cord compression. Central moderate anterior thecal sac compression without cord deformity or cord contact. I spoke with primary team and recommend patient having him seen orthopedic surgery team as outpatient especially with acute wound infection and his neck pain and knee pain is no acute. carotid duplex was reported as mildly elevated velocity within the right ICA may reflect mild 50-69 ICA stenosis. Recommend follow-up with vascular surgery team as an outpatient. patient is on aspirin 325 daily and Lipitor 40 mg daily IDs on board Vitamin B12 786 on 12/30/2022, folate 33.7 which is normal. Hemoglobin A1c 5.8 on 08/15/2023. PT, OT and HEAD INSPECTOR AND CENTER MARKER are consulted We'll defer the rest of the medical measure the primary team and other specialist upon discharge recommend the patient to follow-up with a neurologist as an outpatient within 2 weeks.
--- NOTE | 2024-01-11 13:52 | P.PN ---
Subjective Progress Note Date: 01/09/24 Principal diagnosis: Reason for follow-up is a right lower extremity ulcer and cellulitis Patient is a 73-year-old male with a past medical history significant for hypertension osteoarthritis chronic back pain bilateral lower extremity neuropathy and lymphedema presenting to the hospital for evaluation of right lower extremity swelling and wounds, patient be diagnosed with a likely venous stasis ulcer and secondary cellulitis and admit to the hospital. On today's evaluation that is 01/09/2024,the patient remains to be afebrile, patient is on room air not requiring supplemental oxygen and denies any shortness of breath no chest pain or cough.Patient denies having any nausea or vomiting, no abdominal pain and no diarrhea has been reported, patient complaining of swelling to the lower extremity but no drainage Patient white count is 9.11, creatinine 0.8 Objective - Vital Signs Vital signs: Vital Signs Temp 97.7 F 01/09/24 07:00 Pulse 77 01/09/24 14:00 Resp 16 01/09/24 14:00 BP 102/60 01/09/24 07:00 Pulse Ox 98 01/09/24 07:00 FiO2 Intake & Output 01/08/24 01/09/24 01/09/24 18:59 06:59 18:59 Intake Total 354 118 Output Total 1075 400 Balance -721 282 Intake: Oral 354 118 Output: Urine 1075 400 Other: Voiding Method Urinal # Voids 3 - Exam GENERAL DESCRIPTION: An elderly male lying in bed in no distress RESPIRATORY SYSTEM: Unlabored breathing , decreased breath sounds at bases HEART: S1 S2 regular rate and rhythm , ABDOMEN: Soft , no tenderness EXTREMITIES: Right lower extremity currently covered with a Rcoky wrap - Labs CBC & Chem 7: 01/11/24 06:04 01/11/24 06:04 Labs: Abnormal Lab Results - Last 24 Hours (Table) 01/09/24 01/09/24 Range/Units 07:31 07:31 RBC 3.38 L (4.40-5.60) X 10*6/uL Hgb 9.6 L (13.0-17.0) g/dL Hct 30.8 L (39.6-50.0) % MCHC 31.2 L (32.0-37.0) g/dL RDW 16.1 H (11.5-14.5) % Immature Gran # 0.05 H (0.00-0.04) X 10*3/uL Monocytes # 1.24 H (0.20-1.00) X 10*3/uL Eosinophils # 0.37 H (0.04-0.35) X 10*3/uL BUN 30.2 H (9.0-27.0) mg/dL BUN/Creatinine Ratio 37.75 H (12.00-20.00) Ratio Calcium 8.5 L (8.7-10.3) mg/dL Total Bilirubin <0.2 L (0.3-1.2) mg/dL ALT 5 L (10-49) U/L Total Protein 5.3 L (6.2-8.2) g/dL Albumin 3.5 L (3.8-4.9) g/dL Microbiology - Last 24 Hours (Table) 01/05/24 14:17 Blood Culture - Preliminary Blood 01/05/24 14:07 Blood Culture - Preliminary Blood Assessment and Plan (1) Leg ulcer Current Visit: Yes Status: Acute Code(s): L97.909 - NON-PRS CHRONIC ULC UNSP PRT OF UNSP LOW LEG W UNSP SEVERITY SNOMED Code(s): 13155563 (2) Cellulitis of right leg Current Visit: No Status: Acute Code(s): L03.115 - CELLULITIS OF RIGHT LOWER LIMB SNOMED Code(s): 15161598977413427 Plan: 1patient presented to hospital with right lower extremity pain swelling redness and some superficial ulceration likely venous stasis ulcer with secondary cellulitis likely from gram-positive skin rupali. 2local wound care with a dry Aquacel silver dressing and Rocky wrap to keep the swelling down, nursing staff was advised to apply compression stocking to the left leg however that has not been done. 3-patient to continue with cefazolin 2 g every 8 hours and monitor clinical course closely Dictation was produced using [employer] dictation software. please excuse any grammatical, word or spelling errors. Time with Patient: Less than 30
--- NOTE | 2024-01-11 13:53 | P.PN ---
Subjective Progress Note Date: 01/10/24 Principal diagnosis: Reason for follow-up is a right lower extremity ulcer and cellulitis Patient is a 73-year-old male with a past medical history significant for hypertension osteoarthritis chronic back pain bilateral lower extremity neuropathy and lymphedema presenting to the hospital for evaluation of right lower extremity swelling and wounds, patient be diagnosed with a likely venous stasis ulcer and secondary cellulitis and admit to the hospital. On today's evaluation that is 01/10/2024, the patient continues to be afebrile, the patient is on room air and breathing comfortably, the Pt denies having any chest pain or cough, the patient denies having any abdominal pain no vomiting or any diarrhea has been reported by the nursing staff. Patient mention did have good luck with the dressing and is staying in place and no drainage Patient white count is 7.3, creatinine 0.72 Objective - Vital Signs Vital signs: Vital Signs Temp 97.7 F 01/10/24 07:00 Pulse 74 01/10/24 08:00 Resp 18 01/10/24 08:00 BP 122/71 01/10/24 07:00 Pulse Ox 99 01/10/24 07:00 FiO2 Intake & Output 01/09/24 01/10/24 01/10/24 18:59 06:59 18:59 Intake Total 236 240 Output Total 400 Balance -164 240 Weight 136.078 kg 129.546 kg Intake: Oral 236 240 Output: Urine 400 Other: Voiding Method Urinal Urinal Urinal # Voids 2 - Exam GENERAL DESCRIPTION: An elderly male lying in bed in no distress RESPIRATORY SYSTEM: Unlabored breathing , decreased breath sounds at bases HEART: S1 S2 regular rate and rhythm , ABDOMEN: Soft , no tenderness EXTREMITIES: Right lower extremity currently covered with a Rocky wrap - Labs CBC & Chem 7: 01/11/24 06:04 01/11/24 06:04 Labs: Abnormal Lab Results - Last 24 Hours (Table) 01/10/24 01/10/24 Range/Units 07:28 07:28 RBC 3.36 L (4.30-5.90) m/uL Hgb 9.8 L D (13.0-17.5) gm/dL Hct 31.2 L (39.0-53.0) % Sodium 135 L (137-145) mmol/L BUN 30 H (9-20) mg/dL Glucose 114 H (74-99) mg/dL Total Protein 5.4 L (6.3-8.2) g/dL Albumin 3.1 L (3.5-5.0) g/dL Assessment and Plan (1) Leg ulcer Current Visit: Yes Status: Acute Code(s): L97.909 - NON-PRS CHRONIC ULC UNSP PRT OF UNSP LOW LEG W UNSP SEVERITY SNOMED Code(s): 03612629 (2) Cellulitis of right leg Current Visit: No Status: Acute Code(s): L03.115 - CELLULITIS OF RIGHT LOWER LIMB SNOMED Code(s): 06791933145654922 Plan: 1patient presented to hospital with right lower extremity pain swelling redness and some superficial ulceration likely venous stasis ulcer with secondary cellulitis likely from gram-positive skin rupali. 2local wound care with a dry Aquacel silver dressing and Rocky wrap to keep the swelling down, nursing staff has been instructed again to apply compression stocking to the left leg however that has not been done. 3-patient seem to be slowly clinical improvement and will continue with cefazolin 2 g every 8 hours and monitor clinical course closely Dictation was produced using [employer] dictation software. please excuse any grammatical, word or spelling errors. Time with Patient: Less than 30
--- NOTE | 2024-01-11 13:54 | P.PN ---
Subjective Progress Note Date: 01/11/24 Principal diagnosis: Reason for follow-up is a right lower extremity ulcer and cellulitis Patient is a 73-year-old male with a past medical history significant for hypertension osteoarthritis chronic back pain bilateral lower extremity neuropathy and lymphedema presenting to the hospital for evaluation of right lower extremity swelling and wounds, patient be diagnosed with a likely venous stasis ulcer and secondary cellulitis and admit to the hospital. On today's evaluation that is 01/11/2024, Patient is afebrile patient is currently on room air and denies having any shortness of breath, the patient denies any chest pain or cough, the patient denies any nausea vomiting did not have any abdominal pain and no diarrhea, still complaining of swelling and nonhealing wound but did mention overall improvement since he has been in the hospital. The patient white count is 8.6, creatinine 0.68 blood culture has been negative Objective - Vital Signs Vital signs: Vital Signs Temp 97.6 F 01/11/24 07:00 Pulse 76 01/11/24 07:00 Resp 16 01/11/24 07:00 BP 149/66 01/11/24 07:00 Pulse Ox 99 01/11/24 07:00 FiO2 Intake & Output 01/10/24 01/11/24 01/11/24 18:59 06:59 18:59 Intake Total 476 436 Output Total 400 Balance 476 -400 436 Weight 129.546 kg Intake: Oral 476 436 Output: Urine 400 Other: Voiding Method Urinal Urinal # Voids 3 - Exam GENERAL DESCRIPTION: An elderly male lying in bed in no distress RESPIRATORY SYSTEM: Unlabored breathing , decreased breath sounds at bases HEART: S1 S2 regular rate and rhythm , ABDOMEN: Soft , no tenderness EXTREMITIES: Right lower extremity with 3 wounds wound base with clean surrounding redness improved still have swelling - Labs CBC & Chem 7: 01/11/24 06:04 01/11/24 06:04 Labs: Abnormal Lab Results - Last 24 Hours (Table) 01/11/24 01/11/24 Range/Units 06:04 06:04 RBC 3.50 L (4.30-5.90) m/uL Hgb 10.2 L (13.0-17.5) gm/dL Hct 33.0 L (39.0-53.0) % MCHC 30.8 L (31.0-37.0) g/dL Sodium 136 L (137-145) mmol/L BUN 26 H (9-20) mg/dL Glucose 100 H (74-99) mg/dL Total Protein 5.8 L (6.3-8.2) g/dL Albumin 3.3 L (3.5-5.0) g/dL Microbiology - Last 24 Hours (Table) 01/05/24 14:17 Blood Culture - Final Blood 01/05/24 14:07 Blood Culture - Final Blood Assessment and Plan (1) Leg ulcer Current Visit: Yes Status: Acute Code(s): L97.909 - NON-PRS CHRONIC ULC UNSP PRT OF UNSP LOW LEG W UNSP SEVERITY SNOMED Code(s): 03209415 (2) Cellulitis of right leg Current Visit: No Status: Acute Code(s): L03.115 - CELLULITIS OF RIGHT LOWER LIMB SNOMED Code(s): 04589730080574162 Plan: 1patient presented to hospital with right lower extremity pain swelling redness and some superficial ulceration likely venous stasis ulcer with secondary cellulitis likely from gram-positive skin rupali. 2local wound care with a dry Aquacel silver dressing and Rocky wrap to keep the swelling down, nursing staff has been instructed again to apply compression stocking to the left leg along with the correct way of applying Aquacel silver and Rocky wrap to the right leg 3-patient mention improvement in his right lower extremity and will continue with cefazolin 2 g every 8 hours and plan to finish therapy with oral Keflex x 7 days on discharge Dictation was produced using [employer] dictation software. please excuse any grammatical, word or spelling errors. Time with Patient: Less than 30
[2024-01-11 14:35] VITALS: BMI 38.7
[2024-01-11] MEDS ORDERED: MIRTAZAPINE 15 MG TAB PO PRN (15:04)
--- NOTE | 2024-01-11 15:11 | P.CN ---
Psychiatric Consult - . Consult date: 01/11/24 Consult:: 01/11/24 15:04 IDENTIFYING DATA: This patient is a 73-year-old male, was previously living alone in apartment, he is , he has 1 kid. REASON FOR REFERRAL: Psychiatry was consulted for "guardianship/APS involvement" HISTORY OF PRESENT ILLNESS: The patient presented to the hospital initially on 01/04 for wounds on his right knee and increased pain. Patient apparently also had dental infections. He was admitted to the medical floors for a transient ischemic attack and leg ulcers and cellulitis. Patient apparently had APS referral and for poor living conditions and was recently evicted from his home. Patient was agreeable to seen today at the bedside by travel writer. Patient was fairly talkative, he was fairly pleasant with travel writer and directable during conversation. He spoke about having troubles with the infection on his leg and also having "bowel troubles" he states that he was not able to control his diarrhea in his apartment for 4 days. Claims that he was trying to get the medications right. He is claiming that he is taking medications at his home. States that he was also having neuropathy and weakness as well and unable to clean himself. He claims that that is most likely why there was a complaint against him. He claims that his food usually gets delivered and his daughter checks on him. States that is combination of medications for his bowel is better at this time and is not having that same problem. Also states that he is taking opiates for pain which is helping. States that his daughter comes and helps him at home about twice a week. States that his sleep has been sometimes on and off, appetite has been fair. He was alert and oriented x 3, good attention span and following commands, appropriate. At this time patient denies any suicidal or homical ideations, intent or plan. Patient denies any auditory, visual hallucinations and denies any paranoia or delusions. Patients admits to using no recreational drugs or cigarettes. He claims that he trusts his family doctor and the staff on the unit and believes that he needs to go to [facility] for rehabilitation, insight appears to be fair. He states that he was feeling a bit depressed before coming to the hospital due to his medical conditions and his living environment however feels that he is a bit better now. PAST PSYCHIATRIC HISTORY: Patient has no known psychiatric history. Patient denies being on any psychiatric medications. Patient denies any previous psychiatric hospitalizations. Patient denies any psychiatric outpatient follow- up. Patient denies any history of suicide attempts in the past. PAST MEDICAL HISTORY: As per medical H&P. ALLERGIES: as per EMR. CHEMICAL DEPENDENCY HISTORY: as per HPI. FAMILY PSYCHIATRIC/SUBSTANCE USE HISTORY: Denies SOCIAL HISTORY: Patient was born and raised in [place] [facility]. He states that he completed high school and did some college. 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 Claims that he had 1 kid, he is , he lives alone in an apartment.. No legal history. MENTAL STATUS EXAM: General Appearance: Patient appears to be overweight, in a wheelchair, stated age is alert, pleasant, and cooperative. Patient appears to have fair hygiene and grooming wearing hospital gown with fair eye contact. Behavior: Patient is calmly lying in bed without any agitated behavior. Talkative. Speech: Patient's speech is fluent and nonpressured. Mood/Affect: Patient reports their mood is "ok now", affect is congruent Suicidality/Homicidality: Patient denies having any suicidal or homicidal ideation intent or plan. Perceptions: Patient denies any visual hallucinations and denies any auditory hallucinations Though content/process: There is no evidence of any delusional thought content and thought process is linear and goal-directed. Rambles at times. Memory and concentration: AOX3, grossly intact for the purposes of this session. Can spell "WORLD" backwards Judgment and insight: fair IMPRESSIONS: Depressive disorder unspecified PLAN: -At this time patient DOES NOT meet criteria for inpatient psychiatric admission. -Patient DOES have decision making capacity at this time and is able to reason through and communicate/appreciate the risks, benefits and alternatives to treatment. Patient is also able to express the concern about his medical conditions and his limitations and expresses desire to go to [facility] for rehabilitation. -Delirium precautions recommended with patient including - avoiding use of narcotics and MALE INFERTILITY SPECIALIST sedatives, limit anticholinergic medications when possible, frequent re-orientation, minimize use of restraints, open window shades during the day and close them at night -Would recommend the following medication changes/additions: Spoke with patient about the possibility of starting a SSRI/SNRI however patient is opposed to it at this time and would rather do outpatient therapy. He is agreeable to try Remeron 15 mg nightly as needed for insomnia -post tensioning ironworker to provide patient with outpatient mental health/psychiatry resources for appropriate follow up upon discharge -Communicated plan to patient's nurse -Psychiatry will sign off at this time -Please contact with any questions.
--- NOTE | 2024-01-11 19:19 | P.PN ---
Subjective Progress Note Date: 01/11/24 HISTORY OF PRESENT ILLNESS: This is a 73-year-old male one of my patient with a previous medical history significant for hypertension and hypertensive cardiovascular disease, hyperlipidemia, obesity with obstructive sleep apnea, history of chronic alcohol use and dependence with the peripheral neuropathy, significant spondylosis of the lumbar spine with spinal stenosis and significant chronic low back pain. Patient was seen in my office about a month ago and he was complaining of significant venous ulcerations of the right lower extremity that he was treated for by cephalexin 500 mg orally 3 times every day for 10 days this was followed by another course of oral antibiotic as well as Silvadene to be applied to both lower extremities with Rocky wrap's, I have received a call from his daughter few days ago and stated that his wound ulcers are getting worse and the patient has not followed up with me in the office as he was supposed to I asked her to take him to the emergency department for evaluation, there was some concern about the patient not able to take care of himself at this point in time, he does appear to have a significant venous ulcerations of right leg , he also continues to have significant issues with venous stasis, he does have significant neuropathy as well, patient was seen in the emergency department, there was concern of minimal weakness in the right upper extremity, had a CT scan of the brain did not show evidence of acute abnormalities, but because of the presentation and because of the venous wounds that he has in the right lower extremity he was ad mitted to the hospital he was started on IV antibiotic in the form of vancomycin and cefepime, infectious disease consultation was obtained from Dr. Medina, blood cultures and wound cultures will be obtained as well. laundry worker consultation for discharge planning along with physical therapy evaluation. 01/05: Patient is sitting at the edge of the bed he is feeling better today, he denies any fever or chills, he has not had a bowel movement yet, he will be started on MiraLAX 17 g orally once every day, Senokot 1 tablet orally twice every day, he will be seen in consultation by physical therapy, social services specialist consultation, patient was seen already by infectious disease, he was switched to cefazolin 2 g IV piggyback every 8 hours, Aquacel silver to the ulceration in the leg, keep the Rocky wrap, keep the leg elevated, continue diuretics for the venous stasis, we will continue to follow the patient very closely, reviewed laboratory evaluation, and will recheck the patient again tomorrow morning. 01/06: Patient was seen by neurology, had CT scan of the cervical spine that showed significant spondylosis with spinal stenosis, continue current treatment plan, his right lower extremity appears better, no fever no chills, he has been tolerating treatment very well, continue Ancef 2 g IV piggyback every 8 hours, continue Aquacel silver for the venous ulcers, patient will likely be transf erred to [facility] tomorrow morning. Patient was seen earlier by neurology and they ordered MRI of the cervical spine as well as the brain patient does not appear to have any acute stroke at this time, his CT scan of the brain is negative, I reviewed his ultrasound of the carotid that showed moderate stenosis of the right internal carotid artery for which the patient has been on aspirin as well as Lipitor 40 mg once every day, patient also does appear to have a significant spondylosis of the cervical spine with spinal stenosis that at this point in time were negative be able to deal with because of his infected venous ulceration in the right lower extremity therefore we are going to cancel or thopedic/spine surgery consult for now. Definitely can be revisited as an outpatient. 01/07: Patient is sitting up in his wheelchair, he continues to have some pain in both lower extremities, he is not moving around much, he ambulated with a walker to the desk, patient feels exhausted at this point in time, he continues to be on IV antibiotic, he continues to have local treatment for the right venous ulcer, patient was also scheduled to go for MRI of the brain as well as cervical spine for further evaluation of the spondylosis of the cervical spine, patient will likely be transferred to [facility] hopefully in the next 24 hours. 01/08: Patient is currently sitting in his wheelchair. Pain seems to be better controlled today however patient complains of constipation. Start lactulose 20 g 3 times a day until constipation is resolved. Continue antibiotic and wound care as ordered for right lower extremity venous ulcer. MRI of the brain and cervical spine was ordered by neurology. MRI of the cervical spine shows right paracentral disc bulging C5-C6 with moderate anterior thecal sac compression and cord compression. Plan was for patient to go to [facility] today; however, he was denied. Social work to explore and discuss alternate placement options with patient. 01/09: Patient is currently sitting up in his wheelchair stating that his pain is 8 out of 10; however, seems to be quite comfortable. Continue current pain control regimen. Continue cefazolin 2 g every 8 hours. Continue Aquacel to right lower extremity venous ulcer every 48 hours. Per social work, Adult Protective Services is now involved due to prior living conditions and patient recently being evicted from his home. Social work is working on placement in a shelter facility however the current barrier is that patient does not have a home to return to upon discharge from the facility. Social work is also recommending guardianship and psychiatric evaluation and daughter is on board. Patient states that he feels one of his brothers would be willing to temporarily house him but that confirmation needs to be made prior to placement. Discharge pending until arrangements for both rehabilitation and permanent housing can be made. 01/10: Patient is feeling well today. Per infectious disease recommendation, we will continue with cefazolin 2 g every 8 hours and switch to oral Keflex for 7 days upon discharge. Continue Aquacel with Rocky bandage wrap per orders. Patient was evaluated by psychiatry and patient does not meet criteria for inpatient psychiatric evaluation and he does have decision-making capability. Patient was accepted at [facility]; however, we are awaiting possible acceptance at [facility] for continuity of care purposes. Patient will likely be discharged tomorrow to either facility. REVIEW OF SYSTEMS: Constitutional: No documented fever, no chills, no night sweats. No weight change. positive for weakness , reports fatigue reports lethargy. Positive for daytime sleepiness. HEENT: No headache. No blurred vision or double vision, no loss of vision. No loss of Hearing, no ringing in the ears, no dizziness. No nasal drainage or congestion. No epistaxis. No sore throat. Lungs: No shortness of breath, no cough, no sputum production. No wheezing. Reports dyspnea with activity. Cardiovascular: No chest pain, positive for lower extremity edema. No palpitations. No paroxysmal nocturnal dyspnea. No orthopnea. No lightheadedness or dizziness. No syncopal episodes.Positive for nocturia. Abdominal: No abdominal pain. No nausea, vomiting. No diarrhea. Positive constipation. No bloody or tarry stools . No loss of appetite. Genitourinary: No dysuria, increased frequency, urgency. No urinary retention. Musculoskeletal: positive for neck pain, positive for chronic low back pain, positive for significant pain in both lower extremities with significant neuropathy, positive for gait dysfunction, positive for lower extremity weakness. Integumentary: Positive for venous ulcerations of right lower extremity with cellulitis, no lesions. No rash or pruritus. No unusual bruising. Does appear to have seborrheic dermatitis Neurologic: No aphasia. No facial droop. Memory loss. No head injury. No headache, positive for paresthesia in both lower extremities Psychiatric: Patient does appear to be somewhat depressed, appears to be a bit anxious, no suicidal thoughts or ideation. Endocrine: No abnormal blood sugars, increased weight. PHYSICAL EXAMINATION: General: This is a 73-year-old male who is resting in bed and does not appear to be in acute distress. HEENT: Head is atraumatic, normocephalic, pupils were equal round reactive to light and recommendation, extraocular muscle movement were intact, sclera nonicteric, conjunctivae were pale, mucous membranes of the mouth are somewhat dry. Neck: Supple, no JVP, normal carotid upstroke bilaterally, no lymphadenopathy. Chest: Decreased breath sounds at the bases, few rhonchi, no expiratory wheezes, no chest wall tenderness, no intercostal retractions. Heart: First heart sound is normal, second heart sound is normal there is systolic ejection murmur 2/6 located in the left sternal border. Abdomen: Soft, nontender, nondistended, positive bowel sounds. Extremities: There is chronic significant venous stasis of right lower extremity with a chronic skin changes dorsalis pedis +1 bilaterally, right lower extremity with improving venous stasis ulcer Neurologic examination: Patient is awake alert and oriented X 3, cranial nerves II-12 appear grossly intact, muscle power were 4 out of 5 in upper extremities and 3 out of 5 in bilateral lower extremities, deep tendon reflexes were depressed bilaterally. ASSESSMENT AND PLAN: 1. Subjective weakness of the right upper extremity, patient does not have any neurological deficit on physical examination, CT scan of the brain did not show evidence of acute abnormalities, CT scan of the cervical spine did show evidence of spondylosis with spinal stenosis likely the reason for the right upper extremity symptoms. Cancel spine surgery/orthopedic consult for now as the patient does have an infection with infected venous ulcer. This can be revisited as an outpatient I spoke with the patient about that. 2. Right lower extremity cellulitis with wounds due to venous ulceration continue patient on cefazolin 2 g IV piggyback every 8 hours, continue with Aquacel silver, continue with Rocky wrap to the right lower extremity. Keep the leg elevated, continue diuretics. Infectious disease consultation appreciated. 3. Hypertension and hypertensive cardiovascular disease. Continue patient on amlodipine 5 mg daily, losartan 50 mg orally once every day. Will continue to monitor the patient very closely. 4. Hyperlipidemia. Continue atorvastatin 40 mg daily. Keep LDL 55-70. 5. Vascular dementia. We will continue Namenda 10 mg po bid. 6. Chronic alcohol use and dependence. Patient has quit. 7. 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 Patient on oxycodone 10/325 mg 1 tablet every 6 hours as needed, continue baclofen 10 mg orally twice every day as needed. MRI of the cervical spine shows right paracentral disc bulging C5-C6 with moderate anterior thecal sac compression and cord compression. We will revisit orthopedic consult and spine surgeon referral for outpatient. 8. Bilateral lower extremity neuropathy continue patient on Lyrica 200 mg orally twice every day. MRI of the cervical spine was ordered by neurology to appraiser real estate the amount of cervical spine stenosis. MRI of the cervical spine shows right paracentral disc bulging C5-C6 with moderate anterior thecal sac compression and cord compression. 9. Depression. Continue patient on Cymbalta 60 mg orally once every day. 10. DVT prophylaxis. Continue Lovenox 40 mg subcutaneously every 24 hours. 11. GI prophylaxis. Continue Protonix 40 mg orally once every day. 12. Seborrheic dermatitis. Start the patient on hydrocortisone cream 2.5% to be applied twice every day. 13. Constipation. Start Lactulose 20 g TID. 14. Plan is for discharge tomorrow to either [facility] or [facility] pending authorization. Impression and plan of care have been directed as dictated by the signing physician. Jazlyn Cee, nurse practitioner acting as scribe for signing physician. Objective - Vital Signs Vital signs: Vital Signs Temp 98.2 F 01/11/24 14:08 Pulse 81 01/11/24 14:08 Resp 16 01/11/24 14:08 BP 139/69 01/11/24 14:08 Pulse Ox 97 01/11/24 14:08 FiO2 Intake & Output 01/10/24 01/11/24 01/11/24 18:59 06:59 18:59 Intake Total 476 872 Output Total 400 1660 Balance 476 400 -788 Weight 129.546 kg 129.546 kg Intake: Oral 476 872 Output: Urine 400 1660 Other: Voiding Method Urinal Urinal # Voids 3 # Bowel Movements 1 - Labs CBC & Chem 7: 01/11/24 06:04 01/11/24 06:04 Labs: Abnormal Lab Results - Last 24 Hours (Table) 01/11/24 01/11/24 Range/Units 06:04 06:04 RBC 3.50 L (4.30-5.90) m/uL Hgb 10.2 L (13.0-17.5) gm/dL Hct 33.0 L (39.0-53.0) % MCHC 30.8 L (31.0-37.0) g/dL Sodium 136 L (137-145) mmol/L BUN 26 H (9-20) mg/dL Glucose 100 H (74-99) mg/dL Total Protein 5.8 L (6.3-8.2) g/dL Albumin 3.3 L (3.5-5.0) g/dL Microbiology - Last 24 Hours (Table) 01/05/24 14:17 Blood Culture - Final Blood 01/05/24 14:07 Blood Culture - Final Blood
[2024-01-12] MEDS: ACETAMINOPHEN TAB 325 MG TAB PO PRN (09:17)
[2024-01-12 14:45] VITALS: BP 117/56; PULSE 82; RESP 22; TEMP 98.1
--- NOTE | 2024-01-12 14:47 | P.DS ---
Providers Date of admission: 01/05/24 14:10 Expected date of discharge: 01/12/24 Attending physician: Johnny Lane Consults: 01/05/24 14:10 Consult Physician Routine Consulting Provider: Garrick Sales Consult Reason/Comments: eval for tia, r arm weak Do you want consulting provider notified?: Yes Consult Physician Routine Consulting Provider: Matteo Medina Consult Reason/Comments: leg wounds Do you want consulting provider notified?: Yes 01/11/24 12:37 Consult Physician Routine Consulting Provider: Dario Negron Consult Reason/Comments: guardianship, APS involvement Do you want consulting provider notified?: Yes Primary care physician: Johnny Lane [facility] Course: HISTORY OF PRESENT ILLNESS: This is a 73-year-old male one of my patient with a previous medical history significant for hypertension and hypertensive cardiovascular disease, hyperlipidemia, obesity with obstructive sleep apnea, history of chronic alcohol use and dependence with the peripheral neuropathy, significant spondylosis of the lumbar spine with spinal stenosis and significant chronic low back pain. Patient was seen in my office about a month ago and he was complaining of significant venous ulcerations of the right lower extremity that he was treated for by cephalexin 500 mg orally 3 times every day for 10 days this was followed by another course of oral antibiotic as well as Silvadene to be applied to both lower extremities with Rocky wrap's, I have received a call from his daughter few days ago and stated that his wound ulcers are getting worse and the patient has not followed up with me in the office as he was supposed to I asked her to take him to the emergency department for evaluation, there was some concern about the patient not able to take care of himself at this point in time, he does appear to have a significant venous ulcerations of right leg , he also continues to have significant issues with venous stasis, he does have significant neuropathy as well, patient was seen in the emergency department, there was concern of minimal weakness in the right upper extremity, had a CT scan of the brain did not show evidence of acute abnormalities, but because of the presentation and because of the venous wounds that he has in the right lower extremity he was admitted to the hospital he was started on IV antibiotic in the form of vancomycin and cefepime, infectious disease consultation was obtained from Dr. Medina, blood cultures and wound cultures will be obtained as well. decontamination worker consultation for discharge planning along with physical therapy corrina dimas. 01/05: Patient is sitting at the edge of the bed he is feeling better today, he denies any fever or chills, he has not had a bowel movement yet, he will be started on MiraLAX 17 g orally once every day, Senokot 1 tablet orally twice every day, he will be seen in consultation by physical therapy, social media content specialist consultation, patient was seen already by infectious disease, he was switched to cefazolin 2 g IV piggyback every 8 hours, Aquacel silver to the ulceration in the leg, keep the Rocky wrap, keep the leg elevated, continue diuretics for the venous stasis, we will continue to follow the patient very closely, reviewed laboratory evaluation, and will recheck the patient again tomorrow morning. 01/06: Patient was seen by neurology, had CT scan of the cervical spine that showed significant spondylosis with spinal stenosis, continue current treatment plan, his right lower extremity appears better, no fever no chills, he has been tolerating treatment very well, continue Ancef 2 g IV piggyback every 8 hours, continue Aquacel silver for the venous ulcers, patient will likely be transferred to [facility] tomorrow morning. Patient was seen earlier by neurology and they ordered MRI of the cervical spine as well as the brain patient does not appear to have any acute stroke at this time, his CT scan of the brain is negative, I reviewed his ultrasound of the carotid that showed moderate stenosis of the right internal carotid artery for which the patient has been on aspirin as well as Lipitor 40 mg once every day, patient also does appear to have a significant spondylosis of the cervical spine with spinal stenosis that at this point in time were negative be able to deal with because of his infected venous ulceration in the right lower extremity therefore we are going to cancel orthopedic/spine surgery consult for now. Definitely can be revisited as an outpatient. 01/07: Patient is sitting up in his wheelchair, he continues to have some pain in both lower extremities, he is not moving around much, he ambulated with a walker to the desk, patient feels exhausted at this point in time, he continues to be on IV antibiotic, he continues to have local treatment for the right venous ulcer, patient was also scheduled to go for MRI of the brain as well as cervical spine for further evaluation of the spondylosis of the cervical spine, patient will likely be transferred to [facility] hopefully in the next 24 hours. 01/08: Patient is currently sitting in his wheelchair. Pain seems to be better controlled today however patient complains of constipation. Start lactulose 20 g 3 times a day until constipation is resolved. Continue antibiotic and wound care as ordered for right lower extremity venous ulcer. MRI of the brain and cervical spine was ordered by neurology. MRI of the cervical spine shows right paracentral disc bulging C5-C6 with moderate anterior thecal sac compression and cord compression. Plan was for patient to go to [facility] today; however, he was denied. Social work to explore and discuss alternate placement options with patient. 01/09: Patient is currently sitting up in his wheelchair stating that his pain is 8 out of 10; however, seems to be quite comfortable. Continue current pain control regimen. Continue cefazolin 2 g every 8 hours. Continue Aquacel to right lower extremity venous ulcer every 48 hours. Per social work, Adult Protective Services is now involved due to prior living conditions and patient recently being evicted from his home. Social work is working on placement in a intermediate facility however the current barrier is that patient does not have a home to return to upon discharge from the facility. Social work is also recommending guardianship and psychiatric evaluation and daughter is on board. Patient states that he feels one of his brothers would be willing to temporarily house him but that confirmation needs to be made prior to placement. Discharge pending until arrangements for both rehabilitation and permanent housing can be made. 01/10: Patient is feeling well today. Per infectious disease recommendation, we will continue with cefazolin 2 g every 8 hours and switch to oral Keflex for 7 days upon discharge. Continue Aquacel with Rocky bandage wrap per orders. Patient was evaluated by psychiatry and patient does not meet criteria for inpatient psychiatric evaluation and he does have decision-making capability. Patient was accepted at [facility]; however, we are awaiting possible acceptance at [facility] for continuity of care purposes. Patient will likely be discharged tomorrow to either facility. 5/E: Patient has had no issues overnight. He is scheduled to go to [facility] today. Patient has been seen by psychiatry with recommendations for delirium precautions, would recommend changes in medication however the patient was not agreeable. He was agreeable to try Remeron 15 mg nightly as needed for insomnia. Blood pressure 142/83, heart rate 78, afebrile and pulse ox 97% on room air. Patient will be discharged to [facility] once all arrangements are completed. DISCHARGE DIAGNOSES 1. Subjective weakness of the right upper extremity, patient does not have any neurological deficit on physical examination, CT scan of the brain did not show evidence of acute abnormalities, CT scan of the cervical spine did show evidence of spondylosis with spinal stenosis likely the reason for the right upper extremity symptoms. 2. Right lower extremity cellulitis with wounds due to venous ulceration 3. Hypertension and hypertensive cardiovascular disease. 4. Hyperlipidemia. 5. Vascular dementia. 6. Chronic alcohol use and dependence. Patient has quit. 7. 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 MRI of the cervical spine shows right paracentral disc bulging C5-C6 with moderate anterior thecal sac compression and cord compression. We will revisit orthopedic consult and spine surgeon referral for outpatient. 8. Bilateral lower extremity neuropathy 9. Depression. 10. Seborrheic dermatitis. 11. Constipation. Greater than 35 minutes was utilized and coordinating patient's discharge. GENETIC COORDINATOR statement Plan - Discharge Summary Discharge Rx Participant: No New Discharge Prescriptions: New Losartan [Cozaar] 50 mg PO DAILY tab Atorvastatin [Lipitor] 40 mg PO DAILY tab Pregabalin [Lyrica] 200 mg PO BID #6 cap polyethylene glycoL 3350 [Miralax] 17 gm PO DAILY packet Memantine [Namenda] 10 mg PO BID tab Mirtazapine [Remeron] 15 mg PO HS PRN tab PRN Reason: Insomnia Acetaminophen Tab [Tylenol] 650 mg PO Q6HR PRN tab PRN Reason: Mild Pain Or Fever > 100.5 Lactulose [Cephulac] 20 gm PO TID ml Folic Acid 1 mg PO DAILY tab Hydrocortisone Cream [Hydrocortisone 1% Cream] 1 applic TOPICAL BID each Cephalexin [Keflex] 500 mg PO Q8HR 7 Days #21 cap Sennosides-Docusate Sodium [Senokot-S] 1 each PO BID tab Continue Furosemide [Lasix] 40 mg PO DAILY oxyCODONE-APAP 10-325MG [Percocet 10-325 mg] 1 tab PO Q6HR PRN 3 Days #12 tab PRN Reason: Pain amLODIPine [Norvasc] 5 mg PO DAILY Baclofen 10 mg PO BID PRN PRN Reason: Muscle Spasm Discharge Medication List Baclofen 10 mg PO BID PRN 04/24/23 [History] Furosemide [Lasix] 40 mg PO DAILY 04/24/23 [History] amLODIPine [Norvasc] 5 mg PO DAILY 04/24/23 [History] Acetaminophen Tab [Tylenol] 650 mg PO Q6HR PRN tab 01/12/24 [Rx] Atorvastatin [Lipitor] 40 mg PO DAILY tab 01/12/24 [Rx] Cephalexin [Keflex] 500 mg PO Q8HR 7 Days #21 cap 01/12/24 [Rx] Folic Acid 1 mg PO DAILY tab 01/12/24 [Rx] Hydrocortisone Cream [Hydrocortisone 1% Cream] 1 applic TOPICAL BID each 01/12/24 [Rx] Lactulose [Cephulac] 20 gm PO TID ml 01/12/24 [Rx] Losartan [Cozaar] 50 mg PO DAILY tab 01/12/24 [Rx] Memantine [Namenda] 10 mg PO BID tab 01/12/24 [Rx] Mirtazapine [Remeron] 15 mg PO HS PRN tab 01/12/24 [Rx] Pregabalin [Lyrica] 200 mg PO BID #6 cap 01/12/24 [Rx] Sennosides-Docusate Sodium [Senokot-S] 1 each PO BID tab 01/12/24 [Rx] oxyCODONE-APAP 10-325MG [Percocet 10-325 mg] 1 tab PO Q6HR PRN 3 Days #12 tab 01/12/24 [Rx] polyethylene glycoL 3350 [Miralax] 17 gm PO DAILY packet 01/12/24 [Rx] Follow up Appointment(s)/Referral(s): Johnny Lane MD [Primary Care Provider] - 1 Week (After discharge from [facility]) Activity/Diet/Wound Care/Special Instructions: Mazin Neumann [facility] P: [phone] Discharge/Stand Alone Forms: [facility], Who Do I Call?, Community Resources
--- NOTE | 2024-01-12 21:22 | P.PN ---
Subjective Progress Note Date: 01/12/24 Principal diagnosis: Reason for follow-up is a right lower extremity ulcer and cellulitis Patient is a 73-year-old male with a past medical history significant for hypertension osteoarthritis chronic back pain bilateral lower extremity neuropathy and lymphedema presenting to the hospital for evaluation of right lower extremity swelling and wounds, patient be diagnosed with a likely venous stasis ulcer and secondary cellulitis and admit to the hospital. On today's evaluation that is 01/12/2024, patient has been afebrile, patient is breathing comfortably and is currently on room air, patient denies having any significant cough no chest pain shortness of breath, patient denies nausea vomiting or diarrhea and no abdominal pain, overall swelling and discomfort to the right leg is slightly decreased in intensity. No new labs has been obtained today Objective - Vital Signs Vital signs: Vital Signs Temp 98.1 F 01/12/24 14:43 Pulse 82 01/12/24 14:43 Resp 22 01/12/24 14:43 BP 117/56 01/12/24 14:43 Pulse Ox 97 01/12/24 14:43 FiO2 Intake & Output 01/11/24 01/12/24 01/12/24 18:59 06:59 18:59 Intake Total 1108 236 Output Total 1660 1570 750 Balance -696 -2965 -514 Weight 129.546 kg Intake: Oral 1108 236 Output: Urine 1660 1570 750 Other: Voiding Method Urinal Urinal # Bowel Movements 1 0 - Exam GENERAL DESCRIPTION: An elderly male lying in bed in no distress RESPIRATORY SYSTEM: Unlabored breathing , decreased breath sounds at bases HEART: S1 S2 regular rate and rhythm , ABDOMEN: Soft , no tenderness EXTREMITIES: Right lower extremity with 3 wounds wound base with clean surrounding redness improved still have swelling - Labs CBC & Chem 7: 01/11/24 06:04 01/11/24 06:04 Assessment and Plan (1) Leg ulcer Status: Acute Code(s): L97.909 - NON-PRS CHRONIC ULC UNSP PRT OF UNSP LOW LEG W UNSP SEVERITY SNOMED Code(s): 79132853 (2) Cellulitis of right leg Status: Acute Code(s): L03.115 - CELLULITIS OF RIGHT LOWER LIMB SNOMED Code(s): 49537280833037108 Plan: 1patient presented to hospital with right lower extremity pain swelling redness and some superficial ulceration likely venous stasis ulcer with secondary cellulitis likely from gram-positive skin rupali. 2local wound care with a dry Aquacel silver dressing and Rocky wrap to keep the swelling down, that will help healing and prevent recurrent ulceration formation 3-patient to finish therapy with oral Keflex x 7 days on discharge, multiple question concern answered in layman terms Dictation was produced using [employer] dictation software. please excuse any grammatical, word or spelling errors. Time with Patient: Less than 30
== END 2024-01-12 18:00 ==
LOC: EC 11:43 → 6NMEDSUR 14:10
PROVIDERS: ADMIT Internal Medicine; ATTEND Internal Medicine
DX: L03.115 Cellulitis of right lower limb (principal); I10 Essential (primary) hypertension; E78.5 Hyperlipidemia, unspecified; F01.50 Vascular dementia, unspecified severity, without behavioral disturbance, psychotic disturbance, mood disturbance, and anxiety; F10.10 Alcohol abuse, uncomplicated; M47.812 Spondylosis without myelopathy or radiculopathy, cervical region; M47.816 Spondylosis without myelopathy or radiculopathy, lumbar region; G89.4 Chronic pain syndrome; G62.9 Polyneuropathy, unspecified; F32.A Depression, unspecified; E03.9 Hypothyroidism, unspecified; G47.33 Obstructive sleep apnea (adult) (pediatric); N40.0 Benign prostatic hyperplasia without lower urinary tract symptoms; G25.81 Restless legs syndrome
CPT/HCPCS: 96365; 96366 ×8; 96372 ×8; 96367; 99285; 36415; 93005; 93306; 97116; 97530 ×3; 97163; 97167; 92523; 80061; 80053 ×7; 85652; 83605; 85025 ×7; 86140; 81003; 87040; 73030; 73590; 93880; 72125; 70450; 70551; 72141; G0378 ×8; J3370; J0690 ×7; J0692; J1650 ×7; Q9957

== ENCOUNTER 2024-04-03 00:14 | Emergency (ER) | payer MEDICARE ==
[2024-04-03 00:29] VITALS: TEMP 98.4
--- NOTE | 2024-04-03 00:30 | ED ---
Psych HPI - General Chief Complaint: Extremity Problem,Nontraumatic Stated Complaint: petition Time Seen by Provider: 04/03/24 00:28 Source: patient, EMS, RN notes reviewed, old records reviewed Mode of arrival: EMS Limitations: no limitations - History of Present Illness Initial Comments: This is a 73-year-old male coming in for psychiatric illness petition for suicidal and psychiatric evaluation regards to uncontrolled pain MD Complaint: suicidal ideation, feels depressed -: days(s) Associated Psychiatric Symptoms: depression, suicidal ideation History of same: Yes Quality: constant Improves With: none Worsens With: none Associated Symptoms: denies other symptoms Treatments Prior to Arrival: placed on mental health hold If Self Harm: admits thoughts of self harm - Related Data Home Medications Medication Instructions Recorded Confirmed Baclofen 10 mg PO BID PRN 04/24/23 01/05/24 Furosemide [Lasix] 40 mg PO DAILY 04/24/23 01/05/24 amLODIPine [Norvasc] 5 mg PO DAILY 04/24/23 01/05/24 Previous Rx's Medication Instructions Recorded Acetaminophen Tab [Tylenol] 650 mg PO Q6HR PRN tab 01/12/24 Atorvastatin [Lipitor] 40 mg PO DAILY tab 01/12/24 Cephalexin [Keflex] 500 mg PO Q8HR 7 Days #21 cap 01/12/24 Folic Acid 1 mg PO DAILY tab 01/12/24 Hydrocortisone Cream 1 applic TOPICAL BID each 01/12/24 [Hydrocortisone 1% Cream] Lactulose [Cephulac] 20 gm PO TID ml 01/12/24 Losartan [Cozaar] 50 mg PO DAILY tab 01/12/24 Memantine [Namenda] 10 mg PO BID tab 01/12/24 Mirtazapine [Remeron] 15 mg PO HS PRN tab 01/12/24 Pregabalin [Lyrica] 200 mg PO BID #6 cap 01/12/24 Sennosides-Docusate Sodium 1 each PO BID tab 01/12/24 [Senokot-S] oxyCODONE-APAP 10-325MG [Percocet 1 tab PO Q6HR PRN 3 Days #12 tab 01/12/24 10-325 mg] polyethylene glycoL 3350 [Miralax] 17 gm PO DAILY packet 01/12/24 Allergies Allergy/AdvReac Type Severity Reaction Status Date / Time No Known Allergies Allergy Verified 01/05/24 11:54 Review of Systems ROS Statement: Those systems with pertinent positive or pertinent negative responses have been documented in the HPI. ROS Other: All systems not noted in ROS Statement are negative. Past Medical History Past Medical History: Hypertension, Osteoarthritis (OA) Additional Past Medical History / Comment(s): ETOH abuse, chronic back pain, BLE neuropathy, lymphedema, multiple falls History of Any Multi-Drug Resistant Organisms: None Reported Past Surgical History: Back Surgery, Orthopedic Surgery, Tonsillectomy Additional Past Surgical History / Comment(s): 3 back laminectomies, hand surgery s/p trauma to reattatch tendons Past Anesthesia/Blood Transfusion Reactions: No Reported Reaction Past Psychological History: No Psychological Hx Reported Smoking Status: Never smoker Past Alcohol Use History: Daily, Heavy Past Drug Use History: None Reported - Past Family History Father Family Medical History: Hypertension Mother Family Medical History: Cancer Additional Family Medical History / Comment(s): Lung cancer Brother(s) Family Medical History: No Reported History Sister(s) Family Medical History: Hypertension Daughter(s) Family Medical History: No Reported History General Exam Limitations: physical limitation General appearance: alert, in no apparent distress Head exam: Present: atraumatic, normocephalic, normal inspection Eye exam: Present: normal appearance, PERRL, EOMI. Absent: scleral icterus, conjunctival injection, periorbital swelling ENT exam: Present: normal exam, mucous membranes moist Neck exam: Present: normal inspection. Absent: tenderness, meningismus, lymphadenopathy Respiratory exam: Present: normal lung sounds bilaterally. Absent: respiratory distress, wheezes, rales, rhonchi, stridor Cardiovascular Exam: Present: regular rate, normal rhythm, normal heart sounds. Absent: systolic murmur, diastolic murmur, rubs, gallop, clicks GI/Abdominal exam: Present: soft, normal bowel sounds. Absent: distended, tenderness, guarding, rebound, rigid Extremities exam: Present: normal inspection, full ROM, normal capillary refill. Absent: tenderness, pedal edema, joint swelling, calf tenderness Back exam: Present: normal inspection Neurological exam: Present: alert, oriented X3, CN II-XII intact Psychiatric exam: Present: normal affect, normal mood Skin exam: Present: warm, dry, intact, normal color. Absent: rash Course Vital Signs 04/03/24 04/03/24 00:25 03:21 Temperature 98.4 F Pulse Rate 61 74 Respiratory 18 22 Rate Blood Pressure 141/69 170/68 O2 Sat by Pulse 100 98 Oximetry - Reevaluation(s) Reevaluation #1: 04/03/24 00:29 Records reviewed Reevaluation #2: Patient medically cleared for psychiatric evaluation Reevaluation #3: Was pt. sent in by a medical professional or institution (NICHOLE Lange, ENTERTAINMENT DANCER, urgent care, hospital, or [facility]...) When possible be specific @ -no Did you speak to anyone other than the patient for history (EMS, parent, family, police, friend...)? What history was obtained from this source @ -no Did you review nursing and triage notes (agree or disagree)? Why? @ -agree Are old charts reviewed (outside hosp., previous admission, EMS record, old EKG, old radiological studies, urgent care reports/EKG's, [facility] records)? Report findings @ -yes Differential Diagnosis (chest pain, altered mental status, abdominal pain women, abdominal pain men, vaginal bleeding, weakness, fever, dyspnea, syncope, headache, dizziness, GI bleed, back pain, seizure, CVA, palpatations, mental health, musculoskeletal)? @ -prior EKG interpreted by me (3pts min.). @ -no X-rays interpreted by me (1pt min.). @ -no CT interpreted by me (1pt min.). @ -no U/S interpreted by me (1pt. min.). @ -no What testing was considered but not performed or refused? (CT, X-rays, U/S, labs)? Why? @ -none What meds were considered but not given or refused? Why? @ -none Did you discuss the management of the patient with other professionals (professionals i.e. NICHOLE Lange, ENTERTAINMENT DANCER, lab, RT, psych nurse, child protective services social worker, marklogic developer, teacher, environmental health officer, manager rn case)? Give summary @ -no Was smoking cessation discussed for >3mins.? @ -no Was critical care preformed (if so, how long)? @ -no Were there social determinants of health that impacted care today? How? (Homelessness, low income, unemployed, alcoholism, drug addiction, transportation, low edu. Level, literacy, decrease access to med. care, chcf, rehab)? @ -none Was there de-escalation of care discussed even if they declined (Discuss DNR or withdrawal of care, Hospice)? DNR status @ -no What co-morbidities impacted this encounter? (DM, HTN, Smoking, COPD, CAD, Cancer, CVA, ARF, Chemo, Hep., AIDS, mental health diagnosis, sleep apnea, morbid obesity)? @ -none Was patient admitted / discharged? Hospital course, mention meds given and route, prescriptions, significant lab abnormalities, going to OR and other pe rtinent info. @ - 73 male to ER for evaluation today. Patient was seen for psychiatric illness with no acute suicidal or homicidal thoughts. Patient does not make inpatient psychiatric criteria and will be discharged back to facility Charge psychiatric illness Undiagnosed new problem with uncertain prognosis? @ -no Drug Therapy requiring intensive monitoring for toxicity (Heparin, Nitro, Insulin, Cardizem)? @ -no Were any procedures done? @ -no Diagnosis/symptom? @ - Acute, or Chronic, or Acute on Chronic? @ -Acute Uncomplicated (without systemic symptoms) or Complicated (systemic symptoms)? @ -Complicated Side effects of treatment? @ -no Exacerbation, Progression, or Severe Exacerbation? @ -exacerbation Poses a threat to life or bodily function? How? (Chest pain, [place], [place], pneumonia, PE, COPD, DKA, ARF, appy, cholecystitis, CVA, Diverticulitis, Homicidal, Suicidal, threat to staff... and all critical care pts) @ -yes extremes of age Reevaluation #4: Differential Mental Health Depression, anxiety, bipolar, psychosis, schizophrenia, borderline personality, situational depression, adjustment disorder, behavioral disorder, brain tumor, malingering, substance abuse, encephalopathy, medication reaction, dementia, hypothyroidism, degenerative neurologic disorder, lupus.... This is not meant to be all-inclusive list Medical Decision Making - Medical Decision Making 73 male to ER for evaluation today. Patient was seen for psychiatric illness with no acute suicidal or homicidal thoughts. Patient does not make inpatient psychiatric criteria and will be discharged back to facility - Lab Data Result diagrams: 04/03/24 01:07 04/03/24 01:07 Lab Results 04/03/24 04/03/24 04/03/24 Range/Units 01:07 01:07 02:40 WBC 10.1 (3.8-10.6) k/uL RBC 3.99 L (4.30-5.90) m/uL Hgb 10.8 L (13.0-17.5) gm/dL Hct 34.1 L (39.0-53.0) % MCV 85.6 (80.0-100.0) fL MCH 27.1 (25.0-35.0) pg MCHC 31.6 (31.0-37.0) g/dL RDW 14.5 (11.5-15.5) % Plt Count 225 (150-450) k/uL MPV 10.4 Neutrophils % 68 % Lymphocytes % 19 % Monocytes % 8 % Eosinophils % 4 % Basophils % 1 % Neutrophils # 6.9 (1.3-7.7) k/uL Lymphocytes # 1.9 (1.0-4.8) k/uL Monocytes # 0.8 (0-1.0) k/uL Eosinophils # 0.4 (0-0.7) k/uL Basophils # 0.1 (0-0.2) k/uL Hypochromasia Slight Sodium 137 (137-145) mmol/L Potassium 4.3 (3.5-5.1) mmol/L Chloride 104 (98-107) mmol/L Carbon Dioxide 26 (22-30) mmol/L Anion Gap 7 mmol/L BUN 34 H (9-20) mg/dL Creatinine 0.97 (0.66-1.25) mg/dL Est GFR (CKD-EPI)AfAm >90 (>60 ml/min/1.73 sqM) Est GFR (CKD-EPI)NonAf 79 (>60 ml/min/1.73 sqM) Glucose 95 (74-99) mg/dL Calcium 8.9 (8.4-10.2) mg/dL Total Bilirubin 0.6 (0.2-1.3) mg/dL AST 28 (17-59) U/L ALT 16 (4-49) U/L Alkaline Phosphatase 92 (38-126) U/L Total Protein 6.6 (6.3-8.2) g/dL Albumin 3.9 (3.5-5.0) g/dL Urine Color Colorless Urine Appearance Clear (Clear) Urine pH 5.5 (5.0-8.0) Ur Specific [place] 1.009 (1.001-1.035) Urine Protein Negative (Negative) Urine Glucose (UA) Negative (Negative) Urine Ketones Negative (Negative) Urine Blood Negative (Negative) Urine Nitrite Negative (Negative) Urine Bilirubin Negative (Negative) Urine Urobilinogen <2.0 (<2.0) mg/dL Ur Leukocyte Esterase Negative (Negative) Salicylates <1.0 mg/dL Urine Opiates Screen Not Detected (NotDetected) Ur Oxycodone Screen Detected H (NotDetected) Urine Methadone Screen Not Detected (NotDetected) Acetaminophen <10.0 ug/mL Ur Barbiturates Screen Not Detected (NotDetected) U Tricyclic Antidepress Not Detected (NotDetected) Ur Phencyclidine Scrn Not Detected (NotDetected) Ur Amphetamines Screen Not Detected (NotDetected) U Methamphetamines Scrn Not Detected (NotDetected) U Benzodiazepines Scrn Not Detected (NotDetected) Urine Cocaine Screen Not Detected (NotDetected) U Marijuana (THC) Screen Not Detected (NotDetected) Serum Alcohol <10 mg/dL Disposition Clinical Impression: Chronic pain Disposition: HOME SELF-CARE Condition: Good Instructions (If sedation given, give patient instructions): Chronic Pain (ED) Is patient prescribed a controlled substance at d/c from ED?: No Referrals: None,Stated [Primary Care Provider] - 1-2 days
[2024-04-03 01:15] LABS: Basophils # (A) 0.1 k/uL (0-0.2); Basophils % (A) 1 %; Eosinophils # (A) 0.4 k/uL (0-0.7); Eosinophils % (A) 4 %; HCT 34.1 % (39.0-53.0); HGB 10.8 gm/dL (13.0-17.5); Hypochromasia Slight; Lymphocytes # (A) 1.9 k/uL (1.0-4.8); Lymphocytes % (A) 19 %; MCH 27.1 pg (25.0-35.0); MCHC 31.6 g/dL (31.0-37.0); MCV 85.6 fL (80.0-100.0); Mean Platelet Volume 10.4; Monocytes # (A) 0.8 k/uL (0-1.0); Monocytes % (A) 8 %; Neutrophils # (A) 6.9 k/uL (1.3-7.7); Neutrophils % (A) 68 %; Platelet Count 225 k/uL (150-450); RBC 3.99 m/uL (4.30-5.90); RDW 14.5 % (11.5-15.5); WBC 10.1 k/uL (3.8-10.6)
[2024-04-03] MEDS: HYDROmorphone 0.5 MG/0.5 ML SYRINGE IVP STA (01:35)
[2024-04-03] MEDS: SODIUM CHLORIDE 0.9% 500 ML 500 ML IV STA (01:36)
[2024-04-03 01:55] LABS: ALT 16 U/L (4-49); AST 28 U/L (17-59); Acetaminophen <10.0 ug/mL; African American GFR (CKD) >90 (>60 ml/min/1.73 sqM); Albumin 3.9 g/dL (3.5-5.0); Alcohol <10 mg/dL; Alkaline Phosphatase 92 U/L (38-126); Anion Gap 7 mmol/L; Blood Urea Nitrogen 34 mg/dL (9-20); Calcium 8.9 mg/dL (8.4-10.2); Carbon Dioxide 26 mmol/L (22-30); Chloride 104 mmol/L (98-107); Glucose 95 mg/dL (74-99); Non-African American GFR(CKD) 79 (>60 ml/min/1.73 sqM); Potassium 4.3 mmol/L (3.5-5.1); Salicylate <1.0 mg/dL; Sodium 137 mmol/L (137-145); Total Bilirubin 0.6 mg/dL (0.2-1.3); Total Protein 6.6 g/dL (6.3-8.2)
[2024-04-03 03:24] LABS: Appearance,Urine Clear (Clear); Bilirubin,Urine Negative (Negative); Blood,Urine Negative (Negative); Color,Urine Colorless; Glucose,Urine (UA) Negative (Negative); Ketones,Urine Negative (Negative); Leukocyte Esterase,Urine Negative (Negative); Nitrite,Urine Negative (Negative); PH, Urine 5.5 (5.0-8.0); Protein,Urine Negative (Negative); Specific Gravity,Urine 1.009 (1.001-1.035); Urobilinogen,Urine <2.0 mg/dL (<2.0)
[2024-04-03 03:30] VITALS: BP 170/68; PULSE 74; RESP 22
[2024-04-03 03:54] LABS: Amphetamine Screen,Urine Not Detected (NotDetected); Barbiturate Screen,Urine Not Detected (NotDetected); Benzodiazepines Screen,Urine Not Detected (NotDetected); Cocaine Screen,Urine Not Detected (NotDetected); Methadone Screen, Urine Not Detected (NotDetected); Opiate Screen,Urine Not Detected (NotDetected); Oxycodone Screen, Urine Detected (NotDetected); Phencyclidine Screen,Urine Not Detected (NotDetected); Tricyclic Antidepressant,Urine Not Detected (NotDetected); Urn Cannabinoid Scrn Not Detected (NotDetected)
[2024-04-03] MEDS: oxyCODONE-APAP 10-325MG 1 EACH TAB PO PRN (06:31)
== END 2024-04-03 08:49 | disposition home or self-care (01) ==
LOC: EC 00:14
DX: G89.29 Other chronic pain (principal)
CPT/HCPCS: 82075; 36415; 80053; 85025; 81003; 80306; 80143; 80179; 99285; 96374; G0480; J1170; 80320

== ENCOUNTER → 2024-04-05 | Outpatient (CLI) | payer MEDICARE ==
--- NOTE | 2024-04-05 09:44 | CT ---
EXAMINATION TYPE: CT left knee - [facility] Protocol DATE OF EXAM: 04/05/2024 COMPARISON: HISTORY: pre op CT DLP: [address] left knee - [facility] Protocol FINDINGS: Advanced osteoarthritis of the left knee. Left hip and left ankle are grossly unremarkable. IMPRESSION: 1. Osteoarthritis
== END | disposition home or self-care (01) ==
LOC: RADCTMAIN 07:43
PROVIDERS: ATTEND Orthopaedic Surgery
DX: M17.12 Unilateral primary osteoarthritis, left knee (principal)

== ENCOUNTER 2024-04-19 10:36 | Emergency (ER) | payer MEDICARE ==
[2024-04-19] MEDS ORDERED: MORPHINE SULFATE 4 MG/ML SYRINGE ONE (11:39)
[2024-04-19] MEDS ORDERED: CLINDAMYCIN 150 MG CAP ONE (14:26)
== END 2024-04-19 14:40 | disposition home or self-care (01) ==
LOC: EC 10:36
CPT/HCPCS: 96374; 99283

== ENCOUNTER 2024-04-19 19:21 | Inpatient (IN) | payer MEDICARE ==
[2024-04-19] MEDS ORDERED: HYDROmorphone 1 MG/ML 1 ML SYRINGE ONE (22:19)
[2024-04-19] MEDS ORDERED: ceFAZolin 1 GM/50 ML BAG (PMX) ONE (22:55)
[2024-04-20] MEDS ORDERED: HYDROmorphone 1 MG/ML 1 ML SYRINGE ONE ×3 (02:40→14:42)
[2024-04-20] MEDS ORDERED: SODIUM CHLORIDE 0.9% 1,000 ML BAG ONE (02:40)
[2024-04-20] MEDS ORDERED: ACETAMINOPHEN TAB 325 MG TAB ONE (16:27)
[2024-04-20] MEDS ORDERED: PREGABALIN 100 MG CAP ONE ×2 (16:28→23:18)
[2024-04-20] MEDS ORDERED: MIRTAZAPINE 15 MG TAB ONE (20:29)
[2024-04-20] MEDS ORDERED: MEMANTINE 10 MG TAB ONE (20:29)
[2024-04-21] MEDS ORDERED: HYDROmorphone 1 MG/ML 1 ML SYRINGE ONE (00:42)
[2024-04-21] MEDS ORDERED: amLODIPine 5 MG TAB ONE (08:26)
[2024-04-21] MEDS ORDERED: PANTOPRAZOLE 40 MG TABLET PO ONE (08:26)
[2024-04-21] MEDS ORDERED: ATORVASTATIN 40 MG TAB ONE (08:26)
[2024-04-21] MEDS ORDERED: ESCITALOPRAM 20 MG TAB ONE ×2 (08:26→08:28)
[2024-04-21] MEDS ORDERED: LOSARTAN 50 MG TAB ONE ×2 (08:27→22:11)
[2024-04-21] MEDS ORDERED: MEMANTINE 10 MG TAB ONE ×2 (08:27→22:10)
[2024-04-21] MEDS ORDERED: ENOXAPARIN 40 MG/0.4 ML SYRINGE SQ ONE (08:27)
[2024-04-21] MEDS ORDERED: PREGABALIN 100 MG CAP ONE ×2 (08:43→16:05)
[2024-04-21] MEDS ORDERED: ZINC SULFATE 220 MG CAP ONE (16:05)
[2024-04-21] MEDS ORDERED: oxyCODONE-APAP 10-325MG 1 EACH TAB ONE (16:05)
[2024-04-21] MEDS ORDERED: DEXAMETHASONE SOD PHOSPHATE 10 MG/ML 1 ML VIAL ONE (16:05)
[2024-04-21] MEDS ORDERED: PREGABALIN 50 MG CAP ONE (22:10)
[2024-04-21] MEDS ORDERED: MIRTAZAPINE 15 MG TAB ONE (22:30)
[2024-04-22] MEDS ORDERED: CHOLECALCIFEROL 125 MCG (5000 IU) TABLET ONE (09:39)
[2024-04-22] MEDS ORDERED: amLODIPine 5 MG TAB ONE (09:39)
[2024-04-22] MEDS ORDERED: ASCORBIC ACID 500 MG TAB ONE (09:39)
[2024-04-22] MEDS ORDERED: ZINC SULFATE 220 MG CAP ONE (09:39)
[2024-04-22] MEDS ORDERED: ATORVASTATIN 40 MG TAB ONE (09:39)
[2024-04-22] MEDS ORDERED: DEXAMETHASONE SOD PHOSPHATE 10 MG/ML 1 ML VIAL ONE (09:40)
[2024-04-22] MEDS ORDERED: PANTOPRAZOLE 40 MG TABLET PO ONE (09:40)
[2024-04-22] MEDS ORDERED: LOSARTAN 50 MG TAB ONE (09:40)
[2024-04-22] MEDS ORDERED: ESCITALOPRAM 20 MG TAB ONE (09:40)
[2024-04-22] MEDS ORDERED: PREGABALIN 100 MG CAP ONE ×3 (09:40→21:01)
[2024-04-22] MEDS ORDERED: ENOXAPARIN 40 MG/0.4 ML SYRINGE SQ ONE (09:40)
[2024-04-22] MEDS ORDERED: MEMANTINE 10 MG TAB ONE ×2 (09:41→21:00)
[2024-04-22] MEDS ORDERED: oxyCODONE-APAP 10-325MG 1 EACH TAB ONE ×4 (09:58→21:26)
[2024-04-22] MEDS ORDERED: cefTRIAXone 2 GM VIAL ONE (13:58)
[2024-04-22] MEDS ORDERED: MIRTAZAPINE 15 MG TAB ONE (21:01)
[2024-04-22] MEDS ORDERED: MELATONIN 5 MG TABLET ONE (21:02)
[2024-04-23] MEDS ORDERED: amLODIPine 5 MG TAB ONE (09:14)
[2024-04-23] MEDS ORDERED: ASCORBIC ACID 500 MG TAB ONE (09:14)
[2024-04-23] MEDS ORDERED: CHOLECALCIFEROL 125 MCG (5000 IU) TABLET ONE (09:14)
[2024-04-23] MEDS ORDERED: ATORVASTATIN 40 MG TAB ONE (09:14)
[2024-04-23] MEDS ORDERED: PANTOPRAZOLE 40 MG TABLET PO ONE (09:14)
[2024-04-23] MEDS ORDERED: ZINC SULFATE 220 MG CAP ONE (09:14)
[2024-04-23] MEDS ORDERED: DEXAMETHASONE SOD PHOSPHATE 4 MG/ML 1 ML VIAL ONE (09:15)
[2024-04-23] MEDS ORDERED: oxyCODONE-APAP 10-325MG 1 EACH TAB ONE ×4 (09:15→21:01)
[2024-04-23] MEDS ORDERED: PREGABALIN 100 MG CAP ONE ×3 (09:15→21:04)
[2024-04-23] MEDS ORDERED: MEMANTINE 10 MG TAB ONE ×2 (09:15→21:01)
[2024-04-23] MEDS ORDERED: LOSARTAN 50 MG TAB ONE ×2 (09:16→20:57)
[2024-04-23] MEDS ORDERED: ENOXAPARIN 40 MG/0.4 ML SYRINGE SQ ONE (09:16)
[2024-04-23] MEDS ORDERED: ESCITALOPRAM 20 MG TAB ONE (09:23)
[2024-04-23] MEDS ORDERED: MIRTAZAPINE 15 MG TAB ONE (21:00)
[2024-04-23] MEDS ORDERED: MELATONIN 5 MG TABLET ONE (21:05)
[2024-04-23] MEDS ORDERED: ceFAZolin 1,000 MG VIAL ONE (23:59)
[2024-04-23] MEDS ORDERED: SODIUM CHLORIDE 0.9% 50 ML BAG ONE (23:59)
[2024-04-24] MEDS ORDERED: oxyCODONE-APAP 10-325MG 1 EACH TAB ONE ×5 (01:46→21:47)
[2024-04-24] MEDS ORDERED: ZINC SULFATE 220 MG CAP ONE (09:18)
[2024-04-24] MEDS ORDERED: CHOLECALCIFEROL 125 MCG (5000 IU) TABLET ONE (09:18)
[2024-04-24] MEDS ORDERED: amLODIPine 5 MG TAB ONE (09:18)
[2024-04-24] MEDS ORDERED: ASCORBIC ACID 500 MG TAB ONE (09:18)
[2024-04-24] MEDS ORDERED: ATORVASTATIN 40 MG TAB ONE (09:18)
[2024-04-24] MEDS ORDERED: dexAMETHasone 2 MG TAB ONE (09:19)
[2024-04-24] MEDS ORDERED: PANTOPRAZOLE 40 MG TABLET PO ONE (09:19)
[2024-04-24] MEDS ORDERED: ESCITALOPRAM 20 MG TAB ONE (09:19)
[2024-04-24] MEDS ORDERED: PREGABALIN 100 MG CAP ONE ×3 (09:19→21:47)
[2024-04-24] MEDS ORDERED: LOSARTAN 50 MG TAB ONE ×2 (09:20→21:49)
[2024-04-24] MEDS ORDERED: ENOXAPARIN 40 MG/0.4 ML SYRINGE SQ ONE (09:20)
[2024-04-24] MEDS ORDERED: MEMANTINE 10 MG TAB ONE ×2 (09:21→21:48)
[2024-04-24] MEDS ORDERED: MIRTAZAPINE 15 MG TAB ONE (21:46)
[2024-04-24] MEDS ORDERED: MELATONIN 5 MG TABLET ONE (21:46)
[2024-04-25] MEDS ORDERED: oxyCODONE-APAP 10-325MG 1 EACH TAB ONE ×5 (04:36→21:17)
[2024-04-25] MEDS ORDERED: CHOLECALCIFEROL 125 MCG (5000 IU) TABLET ONE (09:59)
[2024-04-25] MEDS ORDERED: amLODIPine 5 MG TAB ONE (09:59)
[2024-04-25] MEDS ORDERED: PANTOPRAZOLE 40 MG TABLET PO ONE (10:00)
[2024-04-25] MEDS ORDERED: ATORVASTATIN 40 MG TAB ONE (10:00)
[2024-04-25] MEDS ORDERED: dexAMETHasone 2 MG TAB ONE (10:00)
[2024-04-25] MEDS ORDERED: ASCORBIC ACID 500 MG TAB ONE (10:00)
[2024-04-25] MEDS ORDERED: ESCITALOPRAM 20 MG TAB ONE (10:00)
[2024-04-25] MEDS ORDERED: ENOXAPARIN 40 MG/0.4 ML SYRINGE SQ ONE (10:01)
[2024-04-25] MEDS ORDERED: MEMANTINE 10 MG TAB ONE ×2 (10:01→21:17)
[2024-04-25] MEDS ORDERED: LOSARTAN 50 MG TAB ONE ×2 (10:01→21:17)
[2024-04-25] MEDS ORDERED: PREGABALIN 100 MG CAP ONE ×3 (10:01→21:16)
[2024-04-25] MEDS ORDERED: polyethylene glycoL 3350 17 GM POWD.PACK ONE (21:16)
[2024-04-25] MEDS ORDERED: MELATONIN 5 MG TABLET ONE (21:16)
[2024-04-25] MEDS ORDERED: SENNOSIDES-DOCUSATE SODIUM 1 EACH TAB PO ONE (21:16)
[2024-04-25] MEDS ORDERED: LACTULOSE 20 GM/30 ML CUP ONE (21:16)
[2024-04-25] MEDS ORDERED: MIRTAZAPINE 15 MG TAB ONE (21:16)
[2024-04-26] MEDS ORDERED: oxyCODONE-APAP 10-325MG 1 EACH TAB ONE ×6 (02:19→20:32)
[2024-04-26] MEDS ORDERED: amLODIPine 5 MG TAB ONE (08:47)
[2024-04-26] MEDS ORDERED: CHOLECALCIFEROL 125 MCG (5000 IU) TABLET ONE (08:47)
[2024-04-26] MEDS ORDERED: ASCORBIC ACID 500 MG TAB ONE (08:47)
[2024-04-26] MEDS ORDERED: ATORVASTATIN 40 MG TAB ONE (08:47)
[2024-04-26] MEDS ORDERED: ZINC SULFATE 220 MG CAP ONE (08:47)
[2024-04-26] MEDS ORDERED: PANTOPRAZOLE 40 MG TABLET PO ONE (08:48)
[2024-04-26] MEDS ORDERED: ESCITALOPRAM 20 MG TAB ONE (08:48)
[2024-04-26] MEDS ORDERED: dexAMETHasone 2 MG TAB ONE (08:48)
[2024-04-26] MEDS ORDERED: LACTULOSE 20 GM/30 ML CUP ONE (08:48)
[2024-04-26] MEDS ORDERED: ENOXAPARIN 40 MG/0.4 ML SYRINGE SQ ONE (08:49)
[2024-04-26] MEDS ORDERED: PREGABALIN 100 MG CAP ONE ×3 (08:49→20:32)
[2024-04-26] MEDS ORDERED: MEMANTINE 10 MG TAB ONE ×2 (08:49→20:32)
[2024-04-26] MEDS ORDERED: LOSARTAN 50 MG TAB ONE ×2 (08:49→20:33)
[2024-04-26] MEDS ORDERED: SENNOSIDES-DOCUSATE SODIUM 1 EACH TAB PO ONE (20:31)
[2024-04-26] MEDS ORDERED: MELATONIN 5 MG TABLET ONE (20:32)
[2024-04-26] MEDS ORDERED: MIRTAZAPINE 15 MG TAB ONE (20:32)
[2024-04-26] MEDS ORDERED: polyethylene glycoL 3350 17 GM POWD.PACK ONE (20:33)
[2024-04-27] MEDS ORDERED: oxyCODONE-APAP 10-325MG 1 EACH TAB ONE ×6 (00:15→22:40)
[2024-04-27] MEDS ORDERED: amLODIPine 5 MG TAB ONE (10:05)
[2024-04-27] MEDS ORDERED: CHOLECALCIFEROL 125 MCG (5000 IU) TABLET ONE (10:05)
[2024-04-27] MEDS ORDERED: ATORVASTATIN 40 MG TAB ONE (10:05)
[2024-04-27] MEDS ORDERED: ASCORBIC ACID 500 MG TAB ONE (10:05)
[2024-04-27] MEDS ORDERED: dexAMETHasone 2 MG TAB ONE (10:06)
[2024-04-27] MEDS ORDERED: ESCITALOPRAM 20 MG TAB ONE (10:06)
[2024-04-27] MEDS ORDERED: PANTOPRAZOLE 40 MG TABLET PO ONE (10:06)
[2024-04-27] MEDS ORDERED: ZINC SULFATE 220 MG CAP ONE (10:06)
[2024-04-27] MEDS ORDERED: LACTULOSE 20 GM/30 ML CUP ONE ×2 (10:06→22:41)
[2024-04-27] MEDS ORDERED: LOSARTAN 50 MG TAB ONE ×2 (10:07→22:37)
[2024-04-27] MEDS ORDERED: ENOXAPARIN 40 MG/0.4 ML SYRINGE SQ ONE (10:07)
[2024-04-27] MEDS ORDERED: MEMANTINE 10 MG TAB ONE ×2 (10:07→22:39)
[2024-04-27] MEDS ORDERED: PREGABALIN 100 MG CAP ONE ×3 (10:07→22:39)
[2024-04-27] MEDS ORDERED: MIRTAZAPINE 15 MG TAB ONE (22:40)
[2024-04-27] MEDS ORDERED: MELATONIN 5 MG TABLET ONE (22:41)
[2024-04-28] MEDS ORDERED: oxyCODONE-APAP 10-325MG 1 EACH TAB ONE ×2 (06:07→21:36)
[2024-04-28] MEDS ORDERED: PREGABALIN 100 MG CAP ONE ×3 (06:08→21:36)
[2024-04-28] MEDS ORDERED: CHOLECALCIFEROL 125 MCG (5000 IU) TABLET ONE (09:34)
[2024-04-28] MEDS ORDERED: ASCORBIC ACID 500 MG TAB ONE (09:35)
[2024-04-28] MEDS ORDERED: dexAMETHasone 2 MG TAB ONE (09:35)
[2024-04-28] MEDS ORDERED: HYDROcodone/APAP 10-325MG 1 EACH TAB ONE ×3 (09:35→17:52)
[2024-04-28] MEDS ORDERED: LACTULOSE 20 GM/30 ML CUP ONE ×2 (09:35→21:35)
[2024-04-28] MEDS ORDERED: ZINC SULFATE 220 MG CAP ONE (09:35)
[2024-04-28] MEDS ORDERED: ENOXAPARIN 40 MG/0.4 ML SYRINGE SQ ONE (16:29)
[2024-04-28] MEDS ORDERED: ESCITALOPRAM 20 MG TAB ONE (16:31)
[2024-04-28] MEDS ORDERED: PANTOPRAZOLE 40 MG TABLET PO ONE (16:31)
[2024-04-28] MEDS ORDERED: MELATONIN 5 MG TABLET ONE (21:35)
[2024-04-28] MEDS ORDERED: MIRTAZAPINE 15 MG TAB ONE ×2 (21:36→21:57)
[2024-04-28] MEDS ORDERED: MEMANTINE 10 MG TAB ONE (21:37)
[2024-04-28] MEDS ORDERED: SENNOSIDES 8.6 MG TAB ONE (21:37)
[2024-04-28] MEDS ORDERED: LOSARTAN 50 MG TAB ONE (21:37)
[2024-04-29] MEDS ORDERED: oxyCODONE-APAP 10-325MG 1 EACH TAB ONE ×6 (01:26→21:40)
[2024-04-29] MEDS ORDERED: ATORVASTATIN 40 MG TAB ONE (09:27)
[2024-04-29] MEDS ORDERED: amLODIPine 5 MG TAB ONE (09:27)
[2024-04-29] MEDS ORDERED: ZINC SULFATE 220 MG CAP ONE (09:27)
[2024-04-29] MEDS ORDERED: CHOLECALCIFEROL 125 MCG (5000 IU) TABLET ONE (09:27)
[2024-04-29] MEDS ORDERED: PANTOPRAZOLE 40 MG TABLET PO ONE (09:28)
[2024-04-29] MEDS ORDERED: dexAMETHasone 2 MG TAB ONE (09:28)
[2024-04-29] MEDS ORDERED: LACTULOSE 20 GM/30 ML CUP ONE ×2 (09:28→21:39)
[2024-04-29] MEDS ORDERED: ESCITALOPRAM 20 MG TAB ONE (09:28)
[2024-04-29] MEDS ORDERED: MEMANTINE 10 MG TAB ONE ×2 (09:29→21:40)
[2024-04-29] MEDS ORDERED: PREGABALIN 100 MG CAP ONE (09:29)
[2024-04-29] MEDS ORDERED: ENOXAPARIN 40 MG/0.4 ML SYRINGE SQ ONE (09:29)
[2024-04-29] MEDS ORDERED: LOSARTAN 50 MG TAB ONE ×2 (09:29→21:40)
[2024-04-29] MEDS ORDERED: ASCORBIC ACID 500 MG TAB ONE (09:35)
[2024-04-29] MEDS ORDERED: SENNOSIDES-DOCUSATE SODIUM 1 EACH TAB PO ONE (21:39)
[2024-04-29] MEDS ORDERED: MELATONIN 5 MG TABLET ONE (21:40)
[2024-04-29] MEDS ORDERED: MIRTAZAPINE 15 MG TAB ONE ×2 (21:40→21:48)
[2024-04-29] MEDS ORDERED: polyethylene glycoL 3350 17 GM POWD.PACK ONE (21:59)
[2024-04-29] MEDS ORDERED: VANCOMYCIN 1,000 MG VIAL ONE (23:59)
[2024-04-29] MEDS ORDERED: SODIUM CHLORIDE 0.9% 250 ML BAG ONE (23:59)
[2024-04-30] MEDS ORDERED: oxyCODONE-APAP 10-325MG 1 EACH TAB ONE ×4 (02:04→22:35)
[2024-04-30] MEDS ORDERED: ATORVASTATIN 40 MG TAB ONE (09:25)
[2024-04-30] MEDS ORDERED: PANTOPRAZOLE 40 MG TABLET PO ONE (09:25)
[2024-04-30] MEDS ORDERED: ESCITALOPRAM 20 MG TAB ONE (09:25)
[2024-04-30] MEDS ORDERED: amLODIPine 5 MG TAB ONE (09:25)
[2024-04-30] MEDS ORDERED: MEMANTINE 10 MG TAB ONE ×2 (09:26→22:34)
[2024-04-30] MEDS ORDERED: PREGABALIN 100 MG CAP ONE ×3 (09:26→22:34)
[2024-04-30] MEDS ORDERED: ENOXAPARIN 40 MG/0.4 ML SYRINGE SQ ONE (09:26)
[2024-04-30] MEDS ORDERED: LOSARTAN 50 MG TAB ONE ×2 (09:26→22:34)
[2024-04-30] MEDS ORDERED: CHOLECALCIFEROL 125 MCG (5000 IU) TABLET ONE (09:28)
[2024-04-30] MEDS ORDERED: LACTULOSE 20 GM/30 ML CUP ONE ×2 (09:29→22:33)
[2024-04-30] MEDS ORDERED: ASCORBIC ACID 500 MG TAB ONE (09:29)
[2024-04-30] MEDS ORDERED: ZINC SULFATE 220 MG CAP ONE (09:32)
[2024-04-30] MEDS ORDERED: diphenhydrAMINE 25 MG CAP ONE (14:56)
[2024-04-30] MEDS ORDERED: POTASSIUM CHLORIDE ER 20 MEQ TAB.ER PO ONE (14:58)
[2024-04-30] MEDS ORDERED: FUROSEMIDE 10 MG/ML 4 ML VIAL ONE (14:59)
[2024-04-30] MEDS ORDERED: MIRTAZAPINE 15 MG TAB ONE (22:33)
[2024-04-30] MEDS ORDERED: MELATONIN 5 MG TABLET ONE (22:33)
[2024-04-30] MEDS ORDERED: polyethylene glycoL 3350 17 GM POWD.PACK ONE (22:33)
[2024-04-30] MEDS ORDERED: SENNOSIDES 8.6 MG TAB ONE (22:34)
[2024-04-30] MEDS ORDERED: SODIUM CHLORIDE 0.9% 250 ML BAG ONE (23:59)
[2024-04-30] MEDS ORDERED: TRIAMCINOLONE ACET 0.5% CREAM 15 GM TUBE TOPICAL ONE (23:59)
[2024-04-30] MEDS ORDERED: VANCOMYCIN 1,000 MG VIAL ONE (23:59)
[2024-05-01] MEDS ORDERED: diphenhydrAMINE 25 MG CAP ONE (02:25)
[2024-05-01] MEDS ORDERED: oxyCODONE-APAP 10-325MG 1 EACH TAB ONE ×2 (02:52→08:35)
[2024-05-01] MEDS ORDERED: ASCORBIC ACID 500 MG TAB ONE (08:33)
[2024-05-01] MEDS ORDERED: amLODIPine 5 MG TAB ONE (08:33)
[2024-05-01] MEDS ORDERED: CHOLECALCIFEROL 125 MCG (5000 IU) TABLET ONE (08:33)
[2024-05-01] MEDS ORDERED: ZINC SULFATE 220 MG CAP ONE (08:34)
[2024-05-01] MEDS ORDERED: LACTULOSE 20 GM/30 ML CUP ONE (08:34)
[2024-05-01] MEDS ORDERED: PREGABALIN 100 MG CAP ONE (08:34)
[2024-05-01] MEDS ORDERED: PANTOPRAZOLE 40 MG TABLET PO ONE (08:34)
[2024-05-01] MEDS ORDERED: ESCITALOPRAM 20 MG TAB ONE (08:34)
[2024-05-01] MEDS ORDERED: FUROSEMIDE 40 MG TAB ONE (08:35)
[2024-05-01] MEDS ORDERED: LOSARTAN 50 MG TAB ONE ×2 (08:35→20:13)
[2024-05-01] MEDS ORDERED: MEMANTINE 10 MG TAB ONE (08:35)
[2024-05-01] MEDS ORDERED: ENOXAPARIN 40 MG/0.4 ML SYRINGE SQ ONE (08:35)
[2024-05-01] MEDS ORDERED: POTASSIUM CHLORIDE ER 20 MEQ TAB.ER PO ONE (08:42)
[2024-05-01] MEDS ORDERED: SENNOSIDES 8.6 MG TAB ONE (20:13)
[2024-05-01] MEDS ORDERED: MIRTAZAPINE 15 MG TAB ONE (20:13)
--- NOTE | 2024-05-23 14:43 | PN ---
Date of service 04/23/2024 PROGRESS NOTE LOCATION: [facility]. REASON FOR FOLLOWUP: Right lower extremity wound and cellulitis. INTERVAL HISTORY: The patient is afebrile. He is breathing comfortably, complaining of some shortness of breath and did have a cough, occasional sputum. No chest pain, no abdominal pain, or any worsening pain in the right lower extremity. PHYSICAL EXAMINATION: VITAL SIGNS: Blood pressure 124/64, pulse of 72, temperature 98.5. He is 96% on room air. GENERAL: The patient is an elderly male, lying in bed, in no distress. RESPIRATORY SYSTEM: Unlabored breathing. Decreased breath sounds in the bases. No wheeze. HEART: S1, S2, regular rate. ABDOMEN: Soft, no tenderness. EXTREMITIES: Right leg wound is currently dressed. Nursing staff will change the dressing mentioned. Overall, the wound is looking clean. LABORATORY DATA: Cultures are still pending. DIAGNOSTIC IMPRESSION AND PLAN: The patient has right lower extremity venous stasis ulcer with secondary cellulitis. Cultures currently pending. Continue cefazolin, local wound care with Aquacel Silver dressing, and monitor clinical course closely. MMODL / IJN: [id number] / IVANNA
--- NOTE | 2024-05-28 11:38 | XR ---
Site ID [facility] Milton Weathers ID [id number] Order # Procedure CXR 1V EXAMINATION TYPE: XR chest 1V DATE OF EXAM: 04/25/2024 8:26 AM CLINICAL INDICATION: Cough COMPARISON: THIS EXAM WAS READ DURING PACS DOWNTIME, NO PRIORS AVAILABLE. TECHNIQUE: XR chest 1V Frontal view of the chest. FINDINGS: Lungs/Pleura: There is no evidence of pleural effusion, focal consolidation, or pneumothorax. Pulmonary vascularity: Unremarkable. Heart/mediastinum: Cardiomediastinal silhouette is unremarkable. Musculoskeletal: No acute osseous pathology. IMPRESSION: No acute cardiopulmonary disease/process.
--- NOTE | 2024-05-28 18:13 | US ---
MelanieMilton ID: [id number] : 1950 EXAMINATION TYPE: US venous doppler duplex UE LT DATE OF EXAM: 05/02/2024 COMPARISON: NONE CLINICAL INDICATION: 73 year-old male left arm edema SIDE PERFORMED: Left Grayscale, color doppler, spectral doppler imaging performed of the deep veins of the left upper cavi ty. There is normal flow, compressibility and vascular waveforms. Left Arm: Negative for DVT IMPRESSION: No evidence for DVT within the left upper extremity.
--- NOTE | 2024-06-06 14:38 | HP ---
HISTORY AND PHYSICAL HISTORY OF PRESENT ILLNESS: This is a 73-year-old male with a previous medical history significant for hypertension and hypertensive cardiovascular disease, hyperlipidemia, obesity with obstructive sleep apnea, history of remote chronic alcohol use and dependence with significant peripheral neuropathy, history of venous stasis with stasis dermatitis and venous ulceration, spondylosis of the lumbar spine and the cervical spine with a chronic pain syndrome. The patient was recently discharged from [facility] after he stayed there for about 6 weeks for physical therapy and rehabilitation as a matter of fact he was evicted to go to the [facility]. The patient was admitted initially because of generalized weakness and significant venous ulceration that required treatment and physical therapy and rehabilitation, however, because of behavioral issues, the patient was sent to [facility]. The patient apparently was seen by the visiting nurse, who gave me a call about 48 hours ago stating that the patient is not able to care for himself, he has wounds on his right lower extremity. At that time, because of the safety, I told the nursing staff to send the patient to the ER. Apparently, the patient showed up to the ER last night after his daughter came and checked on him and he has not had a shower in a while, he has not been taking care of himself, he has not been taking his medications, he was sent to the ER at [facility], he was found to have a significant venous ulceration of the right lower extremity, though one in the front of the leg was small about 1.5 x 2.5 x 0.2 cm and the other one in the back of the right leg about 7 x 3.5 x 0.4 cm. It has minimal fibrinous scab on both of them, minimal cellulitis around the both lower extremities, there were other scabs on both legs. The patient was admitted to the hospital. He was started on IV antibiotics in the form of Ancef, 2 g IV piggyback every 8 hours. He would be treated with Aquacel Silver for the wound. Infectious Disease consultation was obtained. Of course, we asked the patient to have blood cultures x2 and anaerobic and aerobic cultures for the wound. PAST MEDICAL HISTORY: 1. Hypertension and hypertensive cardiovascular disease. 2. Hyperlipidemia. 3. Hypothyroidism. 4. Chronic venous statis with stasis dermatitis. 5. Chronic alcohol use and dependence. 6. Obstructive sleep apnea. 7. Peripheral neuropathy. 8. Vascular dementia. 9. Enlarged prostate. 10.Osteoarthritis of both knees. PAST SURGICAL HISTORY: 1. Laminectomies in the lumbar spine. 2. Tonsillectomy. 3. Hand surgery with tendon repair. SOCIAL HISTORY: The patient denies any history of smoking. He used to drink about 3 beers on a daily basis. He has not had any drug according to the patient a long period of time. He denies any marijuana use. He lives at [facility] and he has weak support system. FAMILY HISTORY: Father at the age of 93 from old age, he had a history of hypertension and myocardial infarction. Mother at the age of 84 from lung cancer, she was heavy smoker with a history of COPD. The patient has 2 brothers, one is super-morbidly obese and the other one is okay. The patient has 2 sisters, one of them is 63-year-old with a history of venous stasis and the other one is fine. The patient has a daughter with no major medical problems, she is about 36-year-old. REVIEW OF SYSTEMS: GENERAL: The patient appears to be disheveled. He is lying down the bed, appears to be generally weak, in no apparent respiratory distress. HEENT: The patient denies any headache. He has no blurry vision or double vision. He has no sore throat. He has no difficulty swallowing. He has no epistaxis. LUNGS: No shortness of breath. No coughing. No sputum production. No wheezing. He does complain of dyspnea on exertion. CARDIOVASCULAR: The patient denies any chest pain. He does complain of minimal lower extremity edema with venous stasis. He denies any palpitations. He has no PND. He has no orthopnea. He has no dizziness or lightheadedness. He has no syncope. ABDOMEN: No abdominal pain. No nausea or vomiting. He did have constipation. He hematemesis or hematochezia. No black tarry stool. GENITOURINARY: No dysuria. Positive for urinary frequency. No urinary obstruction. No hematuria. MUSCULOSKELETAL: Positive for neck pain and back pain. Positive for bilateral knee pain. INTEGUMENTARY: The patient does appear to have a venous ulceration on the right lower extremity as described above. There is a papular rash in the chest, back, and both upper extremities with scratch mathieu. NEUROLOGIC: No aphasia. No facial droop. Positive for memory loss. No head injury. No headache. Positive for paresthesia in the both lower extremities. PSYCHIATRY: The patient does appear to be somewhat depressed. Appears to be a bit anxious. He has no suicidal thoughts or ideation. ENDOCRINE: The patient appears to be obese without abnormal blood sugar. PHYSICAL EXAMINATION: GENERAL: This is a 73-year-old male, lying down in bed, in no respiratory distress. VITAL SIGNS: His vital signs are as follows; temperature is 98.7, blood pressure is 138/75, heart rate is 75, respirations 18, and oxygen saturation 97% on room air. HEAD, EYES, EARS, NOSE AND THROAT: Head is atraumatic and normocephalic. Pupils are equal, round, and reactive to light and accommodation. Extraocular muscle movements are intact. Sclerae are nonicteric. Conjunctivae are pale. Mucous membranes are somewhat dry. NECK: Supple. No JVP. No carotid bruits. No lymphadenopathy. CHEST: Decreased breath sounds at the basis. Few rhonchi. No expiratory wheezes. No chest wall tenderness. No intercostal retractions. HEART: First heart sound is depressed. Second heart sound is normal. There is systolic ejection murmur, 2/6 located in the left sternal border. ABDOMEN: Soft. Nontender. Nondistended. Positive bowel sounds. No hepatosplenomegaly. EXTREMITIES: There is a chronic stasis dermatitis with a chronic skin changes. There is 2 venous ulceration of the right lower extremity, one in the front of the leg as described above and one in the back of the leg as described above with a fibrinous scab. Dorsalis pedis 2+ bilaterally. NEUROLOGIC: The patient is awake, alert, and oriented x3. Cranial nerves 3 through 12 appeared to be grossly intact. Muscle power 4/5 in the upper lower and extremities bilaterally. Deep tendon reflexes are normal. Babinski's are flexor bilaterally. LABORATORY EVALUATION: Reviewed. ASSESSMENT AND PLAN: 1. Right lower extremity cellulitis with venous ulcerations, not appears to be infected. Obtain aerobic and anaerobic, blood cultures x2. Started the patient on Ancef 2 IV piggyback every 8 hours. Obtain Infectious Disease consultation. Started the patient on Aquacel Silver; covered with wet-to-dry dressing; change every Monday, Monday, and Monday. Keep the leg elevated. 2. Hypertension and hypertensive cardiovascular disease. Continue the patient on amlodipine 5 mg once every day, losartan 50 mg orally twice every day. Monitor the patient's blood pressure very closely. 3. Hyperlipidemia. Continue atorvastatin 40 mg once every day. Monitor lipid panel. Keep LDL 55 to 70. 4. Vascular dementia. Continue the patient on Namenda 10 mg orally twice every day. 5. Spondylosis of the cervical spine as well as lumbar spine. He was evaluated by Spine Surgery, Dr. Manuel, as an outpatient. He was recommended for the patient to continue with a conservative management for now. Continue the patient on current pain management. Discontinue Eleva. Started the patient on Percocet 10/325 mg one tablet every 4 hours as needed. The patient does have Dilaudid 0.5 mg IV push every 3 hours as needed for severe pain. 6. Depressive disorder. Continue the patient on Remeron 15 mg at bedtime as well as Lexapro 10 mg once every day. 7. Osteoarthritis of the both knees. The patient was supposed to have left total knee arthroplasty that was scheduled by Dr. Haile last week, however, the patient did not keep his appointment. He did have a CT scan to be done prior to his surgery, but the patient was not able to go for surgery. We will continue current pain management for now. 8. Deep vein thrombosis prophylaxis. Lovenox 40 mg subcutaneously every 24 hours. 9. Gastrointestinal prophylaxis. Protonix 40 mg orally once every day. 10.Medical debility. Physical Therapy and Occupational Therapy evaluation. 11.piggery worker consultation for discharge planning. 12.Admit to inpatient. Estimated length of stay 2 midnights. 13.The patient is full code. MMODL / IJN: [id number] /
--- NOTE | 2024-06-06 14:39 | PN ---
Date of service is 04/21/2024 PROGRESS NOTE REASON FOR FOLLOWUP: Lower extremity wound and cellulitis. HISTORY OF PRESENT ILLNESS: The patient denies having any fever or any chills today. The patient is breathing comfortably. Denies any chest pain, shortness of breath, or cough. The patient denies any worsening pain to the right lower extremity. No nausea, no vomiting and no diarrhea. PHYSICAL EXAMINATION: VITAL SIGNS: Temperature is 99.6, blood pressure is 132/50, pulse of 78. GENERAL DESCRIPTION: This is an elderly male, lying in bed, in no distress. RESPIRATORY SYSTEM: Unlabored breathing. Clear to auscultation anteriorly. HEART: S1, S2. Regular rhythm. ABDOMEN: Soft. No tenderness. EXTREMITIES: Right lower extremity wound is currently dressed with no drainage on the dressing. LABORATORY DATA: Cultures are currently pending. DIAGNOSTIC IMPRESSION AND PLAN: The patient with right lower extremity venous stasis ulcer with secondary cellulitis. Cultures currently pending. Did have a low-grade fever last night. However, overall fever pattern is improving. We are waiting for the cultures. Continue with cefazolin and monitor clinical course closely. MMODL / IJN: [id number] / IVANNA
--- NOTE | 2024-06-06 14:39 | PN ---
Date of service 04/22/2024 PROGRESS NOTE LOCATION: [facility]. REASON FOR FOLLOWUP: Right lower extremity wound and cellulitis. INTERVAL HISTORY: The patient is afebrile, has been asking for more pain medication. The patient denies having any chest pain. Complaining of some shortness of breath and wheezing, cough, bringing up some sputum. No vomiting or diarrhea has been reported. PHYSICAL EXAMINATION: VITAL SIGNS: Blood pressure 118/69, pulse of 72, temperature 97.7. GENERAL DESCRIPTION: This is an elderly male, up in the chair, in no distress. RESPIRATORY SYSTEM: Unlabored breathing. Decreased breath sounds in the bases. No wheeze. HEART: S1, S2. Regular rate and rhythm. ABDOMEN: Soft. No tenderness. EXTREMITIES: Right leg wound is currently dressed. No drainage on the dressing. LABS: Cultures are pending. DIAGNOSTIC IMPRESSION AND PLAN: The patient with right lower extremity ulcer and cellulitis. Cultures are currently pending. The patient is covered with cefazolin. Consider short course of oral Ceftin on discharge. MMODL / IJN: [id number] / IVANNA
--- NOTE | 2024-06-06 14:40 | PN ---
PROGRESS NOTE LOCATION: 482. REASON FOR FOLLOWUP: Right lower extremity wound cellulitis. INTERVAL HISTORY: The patient is afebrile. The patient has been complaining that he did not have good night's sleep, slightly groggy this morning. Denies any chest pain. Complaining of shortness of breath. Did have a cough. No vomiting. No abdominal pain. No worsening pain to the right lower extremity. PHYSICAL EXAMINATION: VITAL SIGNS: Blood pressure 111/58, pulse of 53, temperature 98.1, he is 95% on room air. GENERAL DESCRIPTION: This is an elderly male lying in bed, in no distress. RESPIRATORY: Unlabored breathing, decreased intensity of breath sounds. No wheeze. HEART: S1, S2. Regular rate and rhythm. ABDOMEN: Soft, no tenderness. EXTREMITIES: Right leg wound is currently dressed. No drainage on the dressing. LABORATORY DATA: Culture is still pending. DIAGNOSTIC IMPRESSION AND PLAN: The patient with chronic right lower extremity wound, likely venous stasis ulcer and secondary cellulitis, covered with cefazolin. Try to obtain a culture final culture and monitor clinical course closely. MMODL / IJN: [id number] /
--- NOTE | 2024-06-06 14:40 | PN ---
PROGRESS NOTE LOCATION: 482. REASON FOR FOLLOWUP: Right lower extremity wound cellulitis and COVID-19. INTERVAL HISTORY: The patient is afebrile. Still complaining of shortness of breath. He did have a cough with occasional sputum production. Denies any nausea, vomiting. No abdominal pain. No worsening pain to the right lower extremity. PHYSICAL EXAMINATION: VITAL SIGNS: Blood pressure 141/60 with a pulse of 40, temperature 97.6. She is 95% on room air. GENERAL DESCRIPTION: This is an elderly male, lying in bed, in no distress. RESPIRATORY SYSTEM: Unlabored breathing. Coarse breath sounds bilaterally. No wheeze. HEART: S1, S2. Regular. ABDOMEN: Soft. No tenderness. EXTREMITIES: Right leg wound is currently dressed. LABORATORY DATA: White count 6.32, creatinine 0.77. DIAGNOSTIC IMPRESSION AND PLAN: 1. Patient with admission to hospital with right lower extremity wound cellulitis, covered with cefazolin. We will transition to oral Keflex on discharge. 2. Patient with COVID-19. Continue with symptomatic treatment as the patient is not requiring any supplemental oxygen along with . Continue supportive care. MMODL / IJN: [id number] /
--- NOTE | 2024-06-06 14:41 | PN ---
PROGRESS NOTE DATE OF SERVICE: 04/26/2024 REASON FOR FOLLOWUP: 1. Right leg wound cellulitis. 2. COVID-19. INTERVAL HISTORY: The patient is afebrile. He is breathing slightly comfortably. Still complaining of shortness of breath and cough with some sputum. No nausea, vomiting. No abdominal pain. No worsening pain to the right leg wound. PHYSICAL EXAMINATION: VITAL SIGNS: Blood pressure 128/63, pulse of 60, temperature is 97.8. GENERAL DESCRIPTION: This is an elderly male, lying in bed, in no distress. RESPIRATORY SYSTEM: Unlabored breathing, decreased intensity of breath sounds. No wheeze. HEART: S1, S2. Regular rate and rhythm. ABDOMEN: Soft. No tenderness. EXTREMITIES: Right leg wound is currently dressed. No drainage on the dressing. LABORATORY DATA: Wound culture has been finalized with MRSA. DIAGNOSTIC IMPRESSION AND PLAN: 1. Patient with right leg wound with secondary cellulitis culture finalized with MRSA. We will switch to vancomycin. Discontinue cefazolin. Local care to continue with Aquacel Silver dressing. 2. Patient with COVID-19 pneumonia. Continue current supportive treatment. MMODL / IJN: [id number] /
--- NOTE | 2024-06-06 14:42 | PN ---
PROGRESS NOTE DATE OF SERVICE: 04/27/2024 LOCATION: 482. REASON FOR FOLLOWUP: 1. Right leg wound cellulitis. 2. COVID-19. INTERVAL HISTORY: The patient is afebrile. He seems to be breathing comfortably and is currently on room air. No vomiting, diarrhea, any other changes reported by the nursing staff. PHYSICAL EXAMINATION: VITAL SIGNS: Blood pressure 167/85, pulse of 52, temperature 98.1. GENERAL DESCRIPTION: This is elderly male lying in bed, in no distress. RESPIRATORY SYSTEM: Unlabored breathing, decreased intensity of breath sounds. ABDOMEN: Soft. No tenderness. EXTREMITIES: Right leg wound is currently dressed. LABORATORY DATA: Creatinine 0.67. White count 6.49. DIAGNOSTIC IMPRESSION AND PLAN: 1. The patient with right leg wound with secondary cellulitis. Culture positive for MRSA. The patient is currently on vancomycin. We will continue while inpatient. Transition to oral Bactrim DS on discharge. Local wound care with Aquacel Silver dressing. 2. The patient with COVID-19. Continue with current supportive treatment. MMODL / IJN: [id number] /
--- NOTE | 2024-06-06 14:43 | PN ---
PROGRESS NOTE DATE OF SERVICE: 04/28/2024 LOCATION: 2. REASON FOR FOLLOWUP: 1. Right leg wound infection with MRSA. 2. COVID-19. INTERVAL HISTORY: The patient is afebrile complaining of some shortness of breath and cough, but not requiring any supplemental oxygen. No nausea, no vomiting. No abdominal pain or any worsening pain to the right leg wound. PHYSICAL EXAMINATION: VITAL SIGNS: Blood pressure 148/72 with a pulse of 64, temperature 98. He is 98% on room air. GENERAL DESCRIPTION: Elderly male, lying in bed, in no distress. RESPIRATORY SYSTEM: Unlabored breathing. Decreased intensity of breath sounds. No wheeze. HEART: S1, S2. Regular rate and rhythm. ABDOMEN: Soft. Right leg wound is currently dressed. DIAGNOSTIC IMPRESSION AND PLAN: 1. The patient with right leg wound with secondary cellulitis, culture positive for MRSA. The patient is covered with vancomycin. He will finish therapy with oral Bactrim DS for 7 days . 2. COVID-19, slowly improving. Continue with current supportive treatment and monitor clinical course closely. MMODL / IJN: [id number] /
--- NOTE | 2024-06-06 14:44 | PN ---
PROGRESS NOTE REASON FOR FOLLOWUP: Right lower extremity wound cellulitis, MRSA, and COVID-19. HISTORY OF PRESENT ILLNESS: The patient is afebrile, has been breathing comfortably on room air. Still complaining of shortness of breath and cough. No nausea or vomiting. No abdominal pain. No pain to the right lower extremity. Apparently, the patient has developed some itching after vancomycin infusion. Denies refusing further vancomycin at this point as reported by the nursing staff. OBJECTIVE: VITAL SIGNS: Stable. He is afebrile. GENERAL DESCRIPTION: This is an elderly male, lying in bed, in no distress. RESPIRATORY SYSTEM: Unlabored breathing, decreased intensity of breath sounds. No wheeze. HEART: S1, S2 regular. ABDOMEN: Soft, nontender. EXTREMITIES: Right leg wound is currently dressed. DIAGNOSTIC IMPRESSION AND PLAN: 1. The patient with right lower extremity wound with cellulitis. Culture positive for MRSA. He is refusing vancomycin, will consider Bactrim DS 1 b.i.d. for 10 days. Local wound care with Aquacel dressing. 2. COVID-19, respiratory status stable. Continue with current supportive treatment. MMODL / IJN: [id number] /
--- NOTE | 2024-06-06 14:44 | PN ---
PROGRESS NOTE LOCATION: 482. REASON FOR FOLLOWUP: 1. Right leg wound infection with MRSA. 2. COVID-19. INTERVAL HISTORY: The patient is afebrile. He is currently on room air. Still complaining of some shortness of breath. No chest pain or any worsening cough. No abdominal pain or worsening pain to the right leg wound. PHYSICAL EXAMINATION: VITAL SIGNS: Blood pressure 117/56, pulse of 85, temperature 98.2. GENERAL DESCRIPTION: This is an elderly male, up in the chair, in no distress. RESPIRATORY SYSTEM: Unlabored breathing. Right leg wound is currently dressed. No drainage on the dressing. LABS: White count 8.61, creatinine 0.63. DIAGNOSTIC IMPRESSION AND PLAN: The patient with right leg wound with secondary cellulitis. Culture positive for MRSA. Covered with vancomycin. May need discussed with nursing staff. Local wound care to continue with Aquacel Silver dressing. MMODL / IJN: [id number] /
--- NOTE | 2024-06-06 14:45 | PN ---
PROGRESS NOTE DATE OF SERVICE: 05/01/2024 LOCATION: [facility]. REASON FOR FOLLOWUP: Right lower extremity wound and MRSA infection. INTERVAL HISTORY: The patient is afebrile. He is breathing comfortably. No chest pain, shortness of breath, or any worsening abdominal pain. No pain to the right leg wound. PHYSICAL EXAMINATION: VITAL SIGNS: Blood pressure 118/67, pulse of 55, temperature of 98, he is 96% on room air. GENERAL DESCRIPTION: The patient is an elderly male with distress. Right leg wound is dressed, no drainage on the dressing. DIAGNOSTIC IMPRESSION AND PLAN: The patient with right leg wound with secondary cellulitis. Culture positive for MRSA. The patient to continue with vancomycin, finishing therapy with Bactrim DS. Local care with dry Aquacel Silver dressing. Continue supportive care. MMODL / IJN: [id number] /
== END 2024-05-01 20:25 | disposition home or self-care (01) | DRG 602 ==
LOC: EC 19:21 → DISRECOVER 21:06 → UNDOADMIN 04-20 03:24 → DISRECOVER 04-20 03:24 → UNDODISIN 05-01 20:25
PROVIDERS: ADMIT Internal Medicine; ATTEND Internal Medicine
PROC: HZ2ZZZZ Detoxification Services for Substance Abuse Treatment (ICD-10-PCS; principal; 2024-04-20)
DX: L03.115 Cellulitis of right lower limb (principal); U07.1 COVID-19; L97.919 Non-pressure chronic ulcer of unspecified part of right lower leg with unspecified severity; I83.019 Varicose veins of right lower extremity with ulcer of unspecified site; I10 Essential (primary) hypertension; F32.A Depression, unspecified; A49.02 Methicillin resistant Staphylococcus aureus infection, unspecified site; E78.2 Mixed hyperlipidemia; N40.0 Benign prostatic hyperplasia without lower urinary tract symptoms; E66.9 Obesity, unspecified; G47.33 Obstructive sleep apnea (adult) (pediatric); M47.896 Other spondylosis, lumbar region; M47.892 Other spondylosis, cervical region; G89.4 Chronic pain syndrome; M17.0 Bilateral primary osteoarthritis of knee; F10.20 Alcohol dependence, uncomplicated; F01.50 Vascular dementia, unspecified severity, without behavioral disturbance, psychotic disturbance, mood disturbance, and anxiety; G62.9 Polyneuropathy, unspecified; E03.9 Hypothyroidism, unspecified; Z79.890 Hormone replacement therapy
CPT/HCPCS: 71045; 85652; 87040; 96361; 96374; 99285

== ENCOUNTER 2024-05-20 16:44 | Inpatient (IN) | payer MEDICARE ==
--- NOTE | 2024-05-20 18:45 | ED ---
General Adult HPI - General Chief complaint: Recheck/Abnormal Lab/Rx Stated complaint: Leg pain, possible allergic reaction Time Seen by Provider: 05/20/24 17:01 Source: patient, RN notes reviewed Mode of arrival: EMS Limitations: no limitations, physical limitation - History of Present Illness Initial comments: 73-year-old male presents emergency department via EMS for chief complaint of diffuse scattered pruritic wounds. Patient was advised by primary care provider who was alerted by at home nurse for the nonhealing wounds. Patient states that these have been present over the past few weeks, however admits that he has poor memory is unaware of exact timeline. Denies recent antibiotics or medication changes. Denies fevers, chills, nausea, vomiting, abdominal pain, chest pain, shortness of breath. Patient states that he has neuropathy of bilateral lower extremities and his legs have been in worsening pain - Related Data Home Medications Medication Instructions Recorded Confirmed Furosemide [Lasix] 40 mg PO DAILY 04/24/23 05/21/24 amLODIPine [Norvasc] 5 mg PO DAILY 04/24/23 05/21/24 Cetirizine HCl 10 mg PO DAILY 05/21/24 05/21/24 Famotidine [Pepcid] 20 mg PO HS PRN 05/21/24 05/21/24 Folic Acid 0.8 mg PO DAILY 05/21/24 05/21/24 Hydrocortisone Cream 1 applic TOPICAL BID 05/21/24 05/21/24 [Hydrocortisone 2.5% Cream] Losartan [Cozaar] 50 mg PO DAILY 05/21/24 05/21/24 Pantoprazole [Protonix] 40 mg PO DAILY 05/21/24 05/21/24 Pregabalin [Lyrica] 200 mg PO BID 05/21/24 05/21/24 hydrOXYzine HCL [Atarax] 10 mg PO BID 05/21/24 05/21/24 methylPREDNISolone Dose Pack See Taper PO DIRECTED 05/21/24 05/21/24 [Medrol Dose Pack] oxyCODONE-APAP 10-325MG [Percocet 1 tab PO Q4H PRN 05/21/24 05/21/24 10-325 mg] Previous Rx's Medication Instructions Recorded Atorvastatin [Lipitor] 40 mg PO DAILY tab 01/12/24 Memantine [Namenda] 10 mg PO BID tab 01/12/24 Allergies Allergy/AdvReac Type Severity Reaction Status Date / Time No Known Allergies Allergy Verified 05/21/24 14:30 Review of Systems ROS Statement: Those systems with pertinent positive or pertinent negative responses have been documented in the HPI. ROS Other: All systems not noted in ROS Statement are negative. Past Medical History Past Medical History: Hypertension, Osteoarthritis (OA) Additional Past Medical History / Comment(s): ETOH abuse, chronic back pain, BLE neuropathy, lymphedema, multiple falls History of Any Multi-Drug Resistant Organisms: MRSA Date of last positivie culture/infection: 04/23/24 MDRO Source:: RT LEG Past Surgical History: Back Surgery, Orthopedic Surgery, Tonsillectomy Additional Past Surgical History / Comment(s): 3 back laminectomies, hand surgery s/p trauma to reattatch tendons Past Anesthesia/Blood Transfusion Reactions: No Reported Reaction Past Psychological History: No Psychological Hx Reported Smoking Status: Never smoker Past Alcohol Use History: Daily, Heavy Past Drug Use History: None Reported - Past Family History Father Family Medical History: Hypertension Mother Family Medical History: Cancer Additional Family Medical History / Comment(s): Lung cancer Brother(s) Family Medical History: No Reported History Sister(s) Family Medical History: Hypertension Daughter(s) Family Medical History: No Reported History General Exam Limitations: no limitations, physical limitation General appearance: alert, in no apparent distress, obese Head exam: Present: atraumatic, normocephalic, normal inspection ENT exam: Present: normal exam, mucous membranes moist Neck exam: Present: normal inspection. Absent: tenderness, meningismus, lymphadenopathy Respiratory exam: Present: normal lung sounds bilaterally. Absent: respiratory distress, wheezes, rales, rhonchi, stridor Cardiovascular Exam: Present: regular rate, normal rhythm, normal heart sounds. Absent: systolic murmur, diastolic murmur, rubs, gallop, clicks GI/Abdominal exam: Present: soft, normal bowel sounds. Absent: distended, tenderness, guarding, rebound, rigid Extremities exam: Present: normal inspection, full ROM, normal capillary refill, other (bilateral LE non-pitting edema). Absent: tenderness, pedal edema, joint swelling, calf tenderness Back exam: Present: normal inspection Skin exam: Present: rash (widespread urticarial rash with multiple stages of healing over the abdomen, back, bilateral upper and lower extremities) Course Vital Signs 05/20/24 05/20/24 05/21/24 16:45 21:48 05:31 Temperature 98.3 F Pulse Rate 88 84 Pulse Rate [ 82 Pulse Oximetery ] Respiratory 16 20 18 Rate Blood Pressure 104/56 146/72 Blood Pressure 92/58 [Left Arm] O2 Sat by Pulse 96 98 98 Oximetry 05/21/24 05/21/24 07:59 11:05 Temperature 98.1 F 98.5 F Pulse Rate 84 69 Pulse Rate [ Pulse Oximetery ] Respiratory 18 16 Rate Blood Pressure 143/57 148/61 Blood Pressure [Left Arm] O2 Sat by Pulse 95 95 Oximetry Medical Decision Making - Medical Decision Making Was pt. sent in by a medical professional or institution (, PA, PIN FEATHER MACHINE OPERATOR, urgent care, hospital, or snf...) When possible be specific @ -Patient was advised by at home nurse who contacted patient's primary care provider in regard to skin manifestations to report to the emergency department for further evaluation. Did you speak to anyone other than the patient for history (EMS, parent, family, police, friend...)? What history was obtained from this source @ -No Did you review nursing and triage notes (agree or disagree)? Why? @ -I reviewed and agree with nursing and triage notes Were old charts reviewed (outside hosp., previous admission, EMS record, old EKG, old radiological studies, urgent care reports/EKG's, snf records)? Report findings @ -Reviewed patient's previous admission from May 04 where he was being treated for lower extremity cellulitis positive for MRSA with vancomycin Differential Diagnosis (chest pain, altered mental status, abdominal pain women, abdominal pain men, vaginal bleeding, weakness, fever, dyspnea, syncope, headache, dizziness, GI bleed, back pain, seizure, CVA, palpatations, mental health, musculoskeletal)? @ -Cellulitis, allergic reaction, contact dermatitis, this is not all inclusive EKG interpreted by me (3pts min.). @ -None X-rays interpreted by me (1pt min.). @ -None done CT interpreted by me (1pt min.). @ -None done U/S interpreted by me (1pt. min.). @ -None done What testing was considered but not performed or refused? (CT, X-rays, U/S, labs)? Why? @ -None What meds were considered but not given or refused? Why? @ -None Did you discuss the management of the patient with other professionals (professionals i.e. , NICHOLE, PIN FEATHER MACHINE OPERATOR, lab, RT, psych nurse, licensed master social worker, lubrication worker, teacher, food safety officer, high risk case manager)? Give summary @ -I spoke with the patient's primary care provider, Dr. Calvert, in regard to the patient's presentation with widespread pruritic rash with multiple stages of healing concerning for MRSA infection. Patient is excepted for admission and will be started on IV vancomycin with infectious disease on consult. Was smoking cessation discussed for >3mins.? @ -No Was critical care preformed (if so, how long)? @ -No Were there social determinants of health that impacted care today? How? (Homelessness, low income, unemployed, alcoholism, drug addiction, transportation, low edu. Level, literacy, decrease access to med. care, [place] [facility], rehab)? @ -No Was there de-escalation of care discussed even if they declined (Discuss DNR or withdrawal of care, Hospice)? DNR status @ -No What co-morbidities impacted this encounter? (DM, HTN, Smoking, COPD, CAD, Cancer, CVA, ARF, Chemo, Hep., AIDS, mental health diagnosis, sleep apnea, morbid obesity)? @ -None Was patient admitted / discharged? Hospital course, mention meds given and route, prescriptions, significant lab abnormalities, going to OR and other pertinent info. @ -Bedded. 73-year-old male with widespread pruritic rash. There are multiple abscesses and scabs over the patient's body and stages of healing. Vitals are stable upon arrival. Patient is provided with Benadryl for symptomatic relief pending results of labs. CBC reveals no signs of leukocytosis, stable anemia, CMP remarkable for hyponatremia of 134, potassium 5.8, lactic acid non-elevated. Patient will be admitted to internal medicine with infectious disease on consult for MRSA infection and started on vancomycin. Case discussed with Dr. Fischer Undiagnosed new problem with uncertain prognosis? @ -No Drug Therapy requiring intensive monitoring for toxicity (Heparin, Nitro, Insulin, Cardizem)? @ -No Were any procedures done? @ -No Diagnosis/symptom? @ -MRSA cellulitis Acute, or Chronic, or Acute on Chronic? @ -Acute Uncomplicated (without systemic symptoms) or Complicated (systemic symptoms)? @ -Uncomplicated Side effects of treatment? @ -No Exacerbation, Progression, or Severe Exacerbation? @ -No Poses a threat to life or bodily function? How? (Chest pain, [place], [place], pneumonia, PE, COPD, DKA, ARF, appy, cholecystitis, CVA, Diverticulitis, Homicidal, Suicidal, threat to staff... and all critical care pts) @ -No - Lab Data Result diagrams: 05/21/24 05:29 05/21/24 05:29 Lab Results 05/20/24 05/20/24 05/20/24 Range/Units 18:42 18:42 18:42 WBC 8.3 (3.8-10.6) k/uL RBC 4.04 L (4.30-5.90) m/uL Hgb 11.4 L (13.0-17.5) gm/dL Hct 34.4 L (39.0-53.0) % MCV 85.0 (80.0-100.0) fL MCH 28.2 (25.0-35.0) pg MCHC 33.2 (31.0-37.0) g/dL RDW 16.9 H (11.5-15.5) % Plt Count 247 (150-450) k/uL MPV 8.0 Neutrophils % 58 % Lymphocytes % 18 % Monocytes % 6 % Eosinophils % 17 % Basophils % 0 % Neutrophils # 4.8 (1.3-7.7) k/uL Lymphocytes # 1.5 (1.0-4.8) k/uL Monocytes # 0.5 (0-1.0) k/uL Eosinophils # 1.4 H (0-0.7) k/uL Basophils # 0.0 (0-0.2) k/uL Hypochromasia Slight Anisocytosis Slight Sodium 134 L (137-145) mmol/L Potassium 5.8 H (3.5-5.1) mmol/L Chloride 101 (98-107) mmol/L Carbon Dioxide 27 (22-30) mmol/L Anion Gap 6 mmol/L BUN 17 (9-20) mg/dL Creatinine 0.86 (0.66-1.25) mg/dL Est GFR (CKD-EPI)AfAm >90 (>60 ml/min/1.73 sqM) Est GFR (CKD-EPI)NonAf 87 (>60 ml/min/1.73 sqM) Glucose 108 H (74-99) mg/dL Plasma Lactic Acid Gerardo 1.3 (0.7-2.0) mmol/L Calcium 8.8 (8.4-10.2) mg/dL Total Bilirubin 1.0 (0.2-1.3) mg/dL AST 70 H (17-59) U/L ALT 17 (4-49) U/L Alkaline Phosphatase 79 (38-126) U/L C-Reactive Protein 4.5 H (<1.0) mg/dL Total Protein 6.5 (6.3-8.2) g/dL Albumin 3.7 (3.5-5.0) g/dL 05/20/24 Range/Units 20:23 WBC (3.8-10.6) k/uL RBC (4.30-5.90) m/uL Hgb (13.0-17.5) gm/dL Hct (39.0-53.0) % MCV (80.0-100.0) fL MCH (25.0-35.0) pg MCHC (31.0-37.0) g/dL RDW (11.5-15.5) % Plt Count (150-450) k/uL MPV Neutrophils % % Lymphocytes % % Monocytes % % Eosinophils % % Basophils % % Neutrophils # (1.3-7.7) k/uL Lymphocytes # (1.0-4.8) k/uL Monocytes # (0-1.0) k/uL Eosinophils # (0-0.7) k/uL Basophils # (0-0.2) k/uL Hypochromasia Anisocytosis Sodium 139 (137-145) mmol/L Potassium 3.9 (3.5-5.1) mmol/L Chloride 105 (98-107) mmol/L Carbon Dioxide 29 (22-30) mmol/L Anion Gap 5 mmol/L BUN 16 (9-20) mg/dL Creatinine 0.90 (0.66-1.25) mg/dL Est GFR (CKD-EPI)AfAm >90 (>60 ml/min/1.73 sqM) Est GFR (CKD-EPI)NonAf 86 (>60 ml/min/1.73 sqM) Glucose 86 (74-99) mg/dL Plasma Lactic Acid Gerardo (0.7-2.0) mmol/L Calcium 8.5 (8.4-10.2) mg/dL Total Bilirubin 0.7 (0.2-1.3) mg/dL AST 59 (17-59) U/L ALT 16 (4-49) U/L Alkaline Phosphatase 69 (38-126) U/L C-Reactive Protein (<1.0) mg/dL Total Protein 6.0 L (6.3-8.2) g/dL Albumin 3.4 L (3.5-5.0) g/dL Disposition Clinical Impression: MRSA cellulitis Disposition: ADMITTED IP TO THIS [facility] Condition: Poor Is patient prescribed a controlled substance at d/c from ED?: No Decision to Admit Reason: Admit from [facility] Decision Date: 05/20/24 Decision Time: 20:34
[2024-05-20 20:00] LABS: Anisocytosis Slight; Basophils % (A) 0 %; Eosinophils # (A) 1.4 k/uL (0-0.7); Eosinophils % (A) 17 %; HCT 34.4 % (39.0-53.0); HGB 11.4 gm/dL (13.0-17.5); Hypochromasia Slight; Lymphocytes # (A) 1.5 k/uL (1.0-4.8); Lymphocytes % (A) 18 %; MCH 28.2 pg (25.0-35.0); MCHC 33.2 g/dL (31.0-37.0); Monocytes # (A) 0.5 k/uL (0-1.0); Monocytes % (A) 6 %; Neutrophils # (A) 4.8 k/uL (1.3-7.7); Neutrophils % (A) 58 %; Platelet Count 247 k/uL (150-450); RBC 4.04 m/uL (4.30-5.90); RDW 16.9 % (11.5-15.5); WBC 8.3 k/uL (3.8-10.6)
[2024-05-20 20:12] LABS: ALT 17 U/L (4-49); African American GFR (CKD) >90 (>60 ml/min/1.73 sqM); Anion Gap 6 mmol/L; Blood Urea Nitrogen 17 mg/dL (9-20); C Reactive Protein 4.5 mg/dL (<1.0); Calcium 8.8 mg/dL (8.4-10.2); Carbon Dioxide 27 mmol/L (22-30); Chloride 101 mmol/L (98-107); Glucose 108 mg/dL (74-99); Non-African American GFR(CKD) 87 (>60 ml/min/1.73 sqM); Sodium 134 mmol/L (137-145)
[2024-05-20 20:17] LABS: AST 70 U/L (17-59); Albumin 3.7 g/dL (3.5-5.0); Alkaline Phosphatase 79 U/L (38-126); Total Protein 6.5 g/dL (6.3-8.2)
[2024-05-20 20:18] LABS: Potassium 5.8 mmol/L (3.5-5.1)
[2024-05-20] MEDS ORDERED: IBUPROFEN 400 MG TAB PO PRN (20:35)
[2024-05-20] MEDS ORDERED: NALOXONE 0.4 MG/ML 1 ML VIAL IV PRN (20:35)
[2024-05-20] MEDS ORDERED: ACETAMINOPHEN TAB 325 MG TAB PO PRN (20:35)
[2024-05-20] MEDS ORDERED: VANCOMYCIN IV PER PHARMACY 1 EACH MISC MISCELLANE PRN (20:36)
[2024-05-20] MEDS: diphenhydrAMINE 50 MG/ML 1 ML VIAL IVP STA (22:00)
[2024-05-20] MEDS: VANCOMYCIN 2,250 MG in SODIUM CHLORIDE 0.9% 500 ML 500 ML IVPB ONE (22:00)
[2024-05-20 22:53] LABS: ALT 16 U/L (4-49); African American GFR (CKD) >90 (>60 ml/min/1.73 sqM); Albumin 3.4 g/dL (3.5-5.0); Anion Gap 5 mmol/L; Blood Urea Nitrogen 16 mg/dL (9-20); Calcium 8.5 mg/dL (8.4-10.2); Carbon Dioxide 29 mmol/L (22-30); Chloride 105 mmol/L (98-107); Glucose 86 mg/dL (74-99); Non-African American GFR(CKD) 86 (>60 ml/min/1.73 sqM); Sodium 139 mmol/L (137-145); Total Bilirubin 0.7 mg/dL (0.2-1.3)
[2024-05-20 22:54] LABS: AST 59 U/L (17-59); Alkaline Phosphatase 69 U/L (38-126); Potassium 3.9 mmol/L (3.5-5.1)
[2024-05-21 04:15] LABS: Amorphous Sediment,Urine Rare /hpf; Appearance,Urine Clear (Clear); Bacteria,Urine Occasional /hpf; Bilirubin,Urine Negative (Negative); Blood,Urine Small (Negative); Color,Urine Yellow; Glucose,Urine (UA) Negative (Negative); Hyaline Casts,Urine 17 /lpf (0-2); Ketones,Urine Negative (Negative); Leukocyte Esterase,Urine Negative (Negative); Mucus,Urine Occasional /hpf; Nitrite,Urine Negative (Negative); Protein,Urine Trace (Negative); RBC,Urine 2 /hpf (0-5); WBC,Urine 2 /hpf (0-5)
[2024-05-21] MEDS: polyethylene glycoL 3350 17 GM POWD.PACK PO SCH (07:52)
[2024-05-21 08:36] LABS: ALT 17 U/L (10-49); AST 52 U/L (14-35); Albumin 3.7 g/dL (3.8-4.9); Albumin/Globulin Ratio 1.61 Ratio (1.60-3.17); Alkaline Phosphatase 101 U/L (41-126); Basophils # (A) 0.05 X 10*3/uL (0.00-0.10); Basophils % (A) 0.6 %; Blood Urea Nitrogen 16.1 mg/dL (9.0-27.0); Calcium 8.8 mg/dL (8.7-10.3); Carbon Dioxide 26.5 mmol/L (21.6-31.8); Chloride 100 mmol/L (96-109); Eosinophils # (A) 1.75 X 10*3/uL (0.04-0.35); Eosinophils % (A) 21.6 %; Globulin 2.3 g/dL (1.6-3.3); Glucose 118 mg/dL (70-110); HCT 34.8 % (39.6-50.0); Lymphocytes # (A) 1.53 X 10*3/uL (0.90-5.00); Lymphocytes % (A) 18.9 %; MCH 27.1 pg (27.0-32.0); MCHC 31.6 g/dL (32.0-37.0); MCV 85.7 FL (80.0-97.0); Mean Platelet Volume 12.1 FL (9.5-12.2); Monocytes # (A) 1.02 X 10*3/uL (0.20-1.00); Monocytes % (A) 12.6 %; NRBC Per 100 WBC 0 X 10*3/uL (0.00-0.01); Neutrophils # (A) 3.72 X 10*3/uL (1.80-7.70); Neutrophils % (A) 45.9 %; Platelet Count 127 X 10*3/uL (140-440); Potassium 3.8 mmol/L (3.5-5.5); RBC 4.06 X 10*6/uL (4.40-5.60); RDW 17.6 % (11.5-14.5); Sodium 138 mmol/L (135-145); Total Bilirubin 0.3 mg/dL (0.3-1.2)
[2024-05-21] MEDS ORDERED: TRIAMCINOLONE 0.1% CREAM 80 GM TUBE TOPICAL SCH (09:00)
[2024-05-21] MEDS: VANCOMYCIN 2,250 MG in SODIUM CHLORIDE 0.9% 500 ML 500 ML IVPB SCH (09:13)
[2024-05-21] MEDS: TRIAMCINOLONE 0.1% CREAM 80 GM TUBE TOPICAL SCH (12:28)
[2024-05-21] MEDS ORDERED: diphenhydrAMINE 25 MG CAP PO PRN (12:47)
[2024-05-21] MEDS ORDERED: methylPREDNISolone SOD SUCCI 125 MG/2 ML VIAL IV SCH (13:00)
[2024-05-21] MEDS: diphenhydrAMINE 50 MG/ML 1 ML VIAL IVP SCH (13:40)
[2024-05-21] MEDS: FAMOTIDINE 20 MG/2 ML VIAL IV SCH (13:40)
[2024-05-21] MEDS: methylPREDNISolone SOD SUCCI 40 MG/ML 1 ML VIAL IV SCH (13:40)
--- NOTE | 2024-05-21 17:54 | P.HPIM ---
History of Present Illness H&P Date: 05/21/24 Chief Complaint: Recurrent MRSA infection HISTORY OF PRESENT ILLNESS: This is a 73-year-old male one of my patient with a previous medical history significant for hypertension and hypertensive cardiovascular disease, hyperlipidemia, obesity with obstructive sleep apnea, history of chronic alcohol use and dependence with the peripheral neuropathy, significant spondylosis of the lumbar spine with spinal stenosis and significant chronic low back pain, patient was recently hospitalized at [facility] about a month ago for MRSA cellulitis of the left lower extremity along with multiple wounds secondary to him being picking on his skin along with significant rash that he was seen dermatology for and he was diagnosed with allergic dermatitis and he was s upposed to be on steroid cream as well as oral medications patient done well however patient also was diagnosed with COVID-19 in the last hospital admission he was treated with IV steroid and he was sent back to his assisted living at [facility], patient was supposed to come to the office for follow-up, he never made the post hospital follow-up, however the patient's visiting nurse called the office yesterday stated the patient is complaining of significant rash all over his body and is continues to pick at his skin, and he has multiple scabbed wounds all over his body 1 in the right shoulder, and multiple ones in the abdomen and both lower extremities, at that time we had contacted the pharmacy and called a steroid along with hydroxyzine 10 mg orally twice every day as well as a Medrol Dosepak, however the patient never picked up the prescription he ended up showing up to the ER for evaluation, I received a phone call from the emergency room physician yesterday stating the patient has significant rash all over his body associated with increased wound on the right shoulder as well as abdomen as well as lower extremity with different stages of healing because of the prior history of MRSA infection he was started on IV antibiotic in the form of vancomycin, I started the patient on Solu-Medrol 40 mg IV push every 8 hours, will place the patient on Benadryl 25 mg IV push every 6 hours, montelukast 10 mg once every day, and also placed the patient on famotidine 20 mg once every day, we will apply triamcinolone cream 0.1% to be applied twice every day to the affected area, infectious disease consultation was obtained I believe the patient will need to follow-up with dermatology for further evaluation recommendation. REVIEW OF SYSTEMS: Constitutional: No documented fever, no chills, no night sweats. No weight change. positive for weakness , reports fatigue reports lethargy. Positive for daytime sleepiness. HEENT: No headache. No blurred vision or double vision, no loss of vision. No loss of Hearing, no ringing in the ears, no dizziness. No nasal drainage or congestion. No epistaxis. No sore throat. Lungs: No shortness of breath, no cough, no sputum production. No wheezing. Reports dyspnea with activity. Cardiovascular: No chest pain, positive for lower extremity edema. No palpitations. No paroxysmal nocturnal dyspnea. No orthopnea. No lighth eadedness or dizziness. No syncopal episodes.Positive for nocturia. Abdominal: No abdominal pain. No nausea, vomiting. No diarrhea. No constipation. No bloody or tarry stools . No loss of appetite. Genitourinary: No dysuria, increased frequency, urgency. No urinary retention. Musculoskeletal: positive for neck pain, positive for chronic low back pain, positive for significant pain in both lower extremities with significant neuropathy, positive for gait dysfunction, positive for lower extremity weakness. Integumentary: Positive for multiple skin lesions at different stages of healin g associated with wound to the right shoulder, abdomen, left lower extremity, with some scab on top of it, with significant erythema to the right side of the torso, appears to be red with significant scratch boucher all over his body. Neurologic: No aphasia. No facial droop. Memory loss. No head injury. No headache, positive for paresthesia in both lower extremities Psychiatric: Patient does appear to be somewhat depressed, appears to be a bit anxious, no suicidal thoughts or ideation. Endocrine: No abnormal blood sugars, increased weight. PAST MEDICAL HISTORY: 1. Hypertension and hypertensive cardiovascular disease. 2. Hyperlipidemia. 3. Hypothyroidism. 4. Chronic venous stasis with stasis dermatitis. 5. Chronic alcohol use and dependence. 6. Obstructive sleep apnea. 7. Peripheral neuropathy. 8. Vascular dementia. 9. Enlarged prostate. 10. 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 11. Restless leg syndrome. PAST SURGICAL HISTORY: 1. Laminectomies in the lumbar spine 3. 2. Tonsillectomy. 3. Hand surgery with tendon repair. SOCIAL HISTORY: Patient denies a history of smoking, he drinks about 3 beers every other day, he used to drink a lot heavier than that, he denies any drug use or abuse, he denies any marijuana use and lives along, he has a daughter who comes a check on him, only on the weekend. FAMILY HISTORY: Father at age 93 from old age. History of hypertension and myocardial infarction, mother at age of 84 from lung cancer and she was heavy smoker, patient has 2 brothers one of them is super morbid obesity and other one is okay, patient has 2 sisters one of them is 63-year-old with history of venous stasis, the other one is fine, patient has a daughter with no major medical problems 35-year-old. PHYSICAL EXAMINATION: General: This is a 73-year-old male who is resting in bed and does not appear to be in acute distress. HEENT: Head is atraumatic, normocephalic, pupils were equal round reactive to light and recommendation, extraocular muscle movement were intact, sclera nonicteric, conjunctivae were pale, mucous membranes of the mouth are somewhat dry. Neck: Supple, no JVP, normal carotid upstroke bilaterally, no lymphadenopathy. Chest: Decreased breath sounds at the bases, few rhonchi, no expiratory wheezes, no chest wall tenderness, no intercostal retractions. Heart: First heart sound is normal, second heart sound is normal there is systolic ejection murmur 2/6 located in the left sternal border. Abdomen: Soft, nontender, nondistended, positive bowel sounds. Extremities: There is chronic significant venous stasis of right lower extremity with a chronic skin changes dorsalis pedis +1 bilaterally, right lower extremity with open wound and fat exposure with cellulitis Neurologic examination: Patient is awake alert and oriented X 3, cranial nerves II-12 appear grossly intact, muscle power were 4 out of 5 in upper extremities and 3out of 5 in bilateral lower extremities, deep tendon reflexes were depressed bilaterally. Skin examination: Significant eruption with maculopapular rash with significant scabs all over his abdomen torso upper and lower extremities as well as a wound to the right shoulder that measures about 2.5 x 2.5 x 0.1 cm and other scabs to the lower extremities and abdomen, with erythema to the right torso. ASSESSMENT AND PLAN: 1. Significant eruption likely related to allergic dermatitis with possible MRSA infection due to recurrent inoculation and scratching. Start the patient on vancomycin pharmacy to dose his peak and trough, infectious disease consultation, I will start the patient on Benadryl 25 mg IV push every 6 hours, Solu-Medrol 40 mg IV push every 8 hours, famotidine 20 mg orally once every day, start the patient also on montelukast 10 mg orally once every day, we will start the patient on triamcinolone 0.1% cream to be applied twice every day we will follow-up with the patient very closely patient will need to have follow-up with dermatology as an outpatient for further recommendation. 2. Right lower extremity stasis dermatitis with multiple scabbed lesions continue patient on vancomycin pharmacy to dose its peak and trough, infectious disease consultation, continue current treatment as in previous paragraph. 3. Hypertension and hypertensive cardiovascular disease. Continue patient on amlodipine 5 mg daily, losartan 100 mg orally once every day. Will continue to monitor the patient very closely. 4. Hyperlipidemia. Continue atorvastatin 40 mg daily. Keep LDL 55-70. 5. Vascular dementia. We will continue Namenda 10 mg po bid 6. History of chronic alcohol use and dependence. patient has quit 7. 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 Patient on oxycodone 10/325 mg 1 tablet every 4 hours as needed, monitor the patient very closely. 8. Bilateral lower extremity neuropathy continue patient on Lyrica 200 mg orally twice every day. 9. Depression. Continue patient on Lexapro 10 mg once every day as well as mirtazapine 30 mg orally once every day. 10. DVT prophylaxis. Continue Lovenox 40 mg subcutaneously every 24 hours. 11. GI prophylaxis. Continue Protonix 40 mg orally once every day and famotidine 20 mg orally once every day. 12. Admit to inpatient. Estimate a length of stay 2 midnights. 13. Patient is full code. Past Medical History Past Medical History: Hypertension, Osteoarthritis (OA) Additional Past Medical History / Comment(s): ETOH abuse, chronic back pain, BLE neuropathy, lymphedema, multiple falls History of Any Multi-Drug Resistant Organisms: MRSA Date of last positivie culture/infection: 04/23/24 MDRO Source:: RT LEG Past Surgical History: Back Surgery, Orthopedic Surgery, Tonsillectomy Additional Past Surgical History / Comment(s): 3 back laminectomies, hand surgery s/p trauma to reattatch tendons Past Anesthesia/Blood Transfusion Reactions: No Reported Reaction Past Psychological History: No Psychological Hx Reported Smoking Status: Never smoker Past Alcohol Use History: Daily, Heavy Past Drug Use History: None Reported - Past Family History Father Family Medical History: Hypertension Mother Family Medical History: Cancer Additional Family Medical History / Comment(s): Lung cancer Brother(s) Family Medical History: No Reported History Sister(s) Family Medical History: Hypertension Daughter(s) Family Medical History: No Reported History Medications and Allergies Home Medications Medication Instructions Recorded Confirmed Type Furosemide [Lasix] 40 mg PO DAILY 04/24/23 05/21/24 History amLODIPine [Norvasc] 5 mg PO DAILY 04/24/23 05/21/24 History Atorvastatin [Lipitor] 40 mg PO DAILY tab 01/12/24 05/21/24 Rx Memantine [Namenda] 10 mg PO BID tab 01/12/24 05/21/24 Rx Cetirizine HCl 10 mg PO DAILY 05/21/24 05/21/24 History Famotidine [Pepcid] 20 mg PO HS PRN 05/21/24 05/21/24 History Folic Acid 0.8 mg PO DAILY 05/21/24 05/21/24 History Hydrocortisone Cream 1 applic TOPICAL BID 05/21/24 05/21/24 History [Hydrocortisone 2.5% Cream] Losartan [Cozaar] 50 mg PO DAILY 05/21/24 05/21/24 History Pantoprazole [Protonix] 40 mg PO DAILY 05/21/24 05/21/24 History Pregabalin [Lyrica] 200 mg PO BID 05/21/24 05/21/24 History hydrOXYzine HCL [Atarax] 10 mg PO BID 05/21/24 05/21/24 History methylPREDNISolone Dose Pack See Taper PO DIRECTED 05/21/24 05/21/24 History [Medrol Dose Pack] oxyCODONE-APAP 10-325MG [Percocet 1 tab PO Q4H PRN 05/21/24 05/21/24 History 10-325 mg] Allergies Allergy/AdvReac Type Severity Reaction Status Date / Time No Known Allergies Allergy Verified 05/21/24 14:30 Physical Exam Vitals: Vital Signs Temp Pulse Pulse Resp BP BP Pulse Ox 05/21/24 11:05 98.5 F 69 16 148/61 95 05/21/24 07:59 98.1 F 84 18 143/57 95 05/21/24 05:31 82 18 92/58 98 05/20/24 21:48 84 20 146/72 98 05/20/24 16:45 98.3 F 88 16 104/56 96 Intake and Output 05/20/24 05/21/24 05/21/24 22:59 06:59 14:59 Other: # Voids 2 Weight 145.15 kg Results CBC & Chem 7: 05/21/24 05:29 05/21/24 05:29 Labs: Abnormal Lab Results - Last 24 Hours (Table) 05/20/24 05/20/24 05/20/24 Range/Units 18:42 18:42 20:23 RBC 4.04 L (4.30-5.90) m/uL Hgb 11.4 L (13.0-17.5) gm/dL Hct 34.4 L (39.0-53.0) % MCHC (32.0-37.0) g/dL RDW 16.9 H (11.5-15.5) % Plt Count (140-440) X 10*3/uL Monocytes # (0.20-1.00) X 10*3/uL Eosinophils # 1.4 H (0-0.7) k/uL Sodium 134 L (137-145) mmol/L Potassium 5.8 H (3.5-5.1) mmol/L Glucose 108 H (74-99) mg/dL AST 70 H (17-59) U/L C-Reactive Protein 4.5 H (<1.0) mg/dL Total Protein 6.0 L (6.3-8.2) g/dL Albumin 3.4 L (3.5-5.0) g/dL Urine Protein (Negative) Urine Blood (Negative) Amorphous Sediment (None) /hpf Urine Bacteria (None) /hpf Hyaline Casts (0-2) /lpf Urine Mucus (None) /hpf 05/21/24 05/21/24 05/21/24 Range/Units 03:18 05:29 05:29 RBC 4.06 L (4.30-5.90) m/uL Hgb 11.0 L (13.0-17.5) gm/dL Hct 34.8 L (39.0-53.0) % MCHC 31.6 L (32.0-37.0) g/dL RDW 17.6 H (11.5-15.5) % Plt Count 127 L (140-440) X 10*3/uL Monocytes # 1.02 H (0.20-1.00) X 10*3/uL Eosinophils # 1.75 H (0-0.7) k/uL Sodium (137-145) mmol/L Potassium (3.5-5.1) mmol/L Glucose 118 H (74-99) mg/dL AST 52 H (17-59) U/L C-Reactive Protein (<1.0) mg/dL Total Protein 6.0 L (6.3-8.2) g/dL Albumin 3.7 L (3.5-5.0) g/dL Urine Protein Trace H (Negative) Urine Blood Small H (Negative) Amorphous Sediment Rare H (None) /hpf Urine Bacteria Occasional H (None) /hpf Hyaline Casts 17 H (0-2) /lpf Urine Mucus Occasional H (None) /hpf
[2024-05-21] MEDS: oxyCODONE-APAP 10-325MG 1 EACH TAB PO PRN (18:13)
[2024-05-21] MEDS: amLODIPine 5 MG TAB PO SCH (18:16)
[2024-05-21] MEDS: LOSARTAN 50 MG TAB PO SCH (18:16)
[2024-05-21] MEDS: ATORVASTATIN 40 MG TAB PO SCH (18:16)
[2024-05-21] MEDS: MIRTAZAPINE 15 MG TAB PO SCH (22:11)
[2024-05-21] MEDS: PREGABALIN 100 MG CAP PO SCH (22:11)
[2024-05-21] MEDS: SENNOSIDES-DOCUSATE SODIUM 1 EACH TAB PO PRN (22:11)
[2024-05-21] MEDS: MEMANTINE 10 MG TAB PO SCH (22:11)
[2024-05-21] MEDS: MONTELUKAST 10 MG TAB PO SCH (22:12)
[2024-05-22] MEDS ORDERED: hydrALAZINE HCL 20 MG/ML 1 ML VIAL IVP PRN (01:20)
[2024-05-22 08:06] LABS: Anisocytosis Slight; Basophils % (A) 0 %; Eosinophils % (A) 0 %; HCT 37.6 % (39.0-53.0); HGB 11.6 gm/dL (13.0-17.5); Hypochromasia Marked; Lymphocytes # (A) 0.9 k/uL (1.0-4.8); Lymphocytes % (A) 12 %; MCH 27.4 pg (25.0-35.0); MCHC 30.7 g/dL (31.0-37.0); MCV 89.4 fL (80.0-100.0); Mean Platelet Volume 7.3; Monocytes # (A) 0.3 k/uL (0-1.0); Monocytes % (A) 4 %; Neutrophils # (A) 6.5 k/uL (1.3-7.7); Neutrophils % (A) 83 %; Platelet Count 334 k/uL (150-450); RBC 4.21 m/uL (4.30-5.90); RDW 16.8 % (11.5-15.5); WBC 7.8 k/uL (3.8-10.6)
--- NOTE | 2024-05-22 08:15 | P.CONS ---
History of Present Illness - Reason for Consult Consult date: 05/21/24 MRSA infection Requesting physician: Jaimee Peterson - Chief Complaint Generalized itching rash x days - History of Present Illness Patient is a 73-year-old male with multiple comorbidities including hypertension osteoarthritis recent admission to the hospital with COVID-19 and the patient also have a right lower extremity wound with second cellulitis culture positive for MRSA, patient now presenting to the hospital with generalized itchy rash that has involve most of his body apparently the patient has been picking on it as some of them has scabbed over has been complaining of mostly significant itching as well as pain which is sharp moderate intensity wi thout any radiation denies having any tongue swelling chest pain shortness of breath or cough no nausea vomiting abdominal pain or diarrhea, the patient right lower extremity wound seem to have almost healed up denies any worsening pain to the right lower extremity wound or any drainage from 8 no urinary symptoms or diarrhea on presentation to the hospital patient is afebrile and no fever have been recorded subsequently patient was not tachycardic hypotensive or hypoxic and no need for supplemental oxygen he did have a white count of 8.10 did have elevated eosinophils creatinine has been normal electrolytes are normal UA has been negative patient was started on vancomycin infectious disease was consulted for further management of antibiotic therapy Review of Systems Positive point and negatives has been mentioned in the HPI, complete review of systems was performed and all other systems are negative Past Medical History Past Medical History: Hypertension, Osteoarthritis (OA) Additional Past Medical History / Comment(s): ETOH abuse, chronic back pain, BLE neuropathy, lymphedema, multiple falls History of Any Multi-Drug Resistant Organisms: MRSA Year Discovered:: 04/23/24 MDRO Source:: RT LEG Past Surgical History: Back Surgery, Orthopedic Surgery, Tonsillectomy Additional Past Surgical History / Comment(s): 3 back laminectomies, hand surgery s/p trauma to reattatch tendons Past Anesthesia/Blood Transfusion Reactions: No Reported Reaction Past Psychological History: No Psychological Hx Reported Smoking Status: Never smoker Past Alcohol Use History: Daily, Heavy Past Drug Use History: None Reported - Past Family History Father Family Medical History: Hypertension Mother Family Medical History: Cancer Additional Family Medical History / Comment(s): Lung cancer Brother(s) Family Medical History: No Reported History Sister(s) Family Medical History: Hypertension Daughter(s) Family Medical History: No Reported History Medications and Allergies Home Medications Medication Instructions Recorded Confirmed Type Furosemide [Lasix] 40 mg PO DAILY 04/24/23 05/21/24 History amLODIPine [Norvasc] 5 mg PO DAILY 04/24/23 05/21/24 History Atorvastatin [Lipitor] 40 mg PO DAILY tab 01/12/24 05/21/24 Rx Memantine [Namenda] 10 mg PO BID tab 01/12/24 05/21/24 Rx Cetirizine HCl 10 mg PO DAILY 05/21/24 05/21/24 History Famotidine [Pepcid] 20 mg PO HS PRN 05/21/24 05/21/24 History Folic Acid 0.8 mg PO DAILY 05/21/24 05/21/24 History Hydrocortisone Cream 1 applic TOPICAL BID 05/21/24 05/21/24 History [Hydrocortisone 2.5% Cream] Losartan [Cozaar] 50 mg PO DAILY 05/21/24 05/21/24 History Pantoprazole [Protonix] 40 mg PO DAILY 05/21/24 05/21/24 History Pregabalin [Lyrica] 200 mg PO BID 05/21/24 05/21/24 History hydrOXYzine HCL [Atarax] 10 mg PO BID 05/21/24 05/21/24 History methylPREDNISolone Dose Pack See Taper PO DIRECTED 05/21/24 05/21/24 History [Medrol Dose Pack] oxyCODONE-APAP 10-325MG [Percocet 1 tab PO Q4H PRN 05/21/24 05/21/24 History 10-325 mg] Allergies Allergy/AdvReac Type Severity Reaction Status Date / Time No Known Allergies Allergy Verified 05/21/24 14:30 Physical Exam Vitals: Vital Signs Temp Pulse Pulse Resp BP BP Pulse Ox 05/21/24 11:05 98.5 F 69 16 148/61 95 05/21/24 07:59 98.1 F 84 18 143/57 95 05/21/24 05:31 82 18 92/58 98 05/20/24 21:48 84 20 146/72 98 05/20/24 16:45 98.3 F 88 16 104/56 96 Intake and Output 05/20/24 05/21/24 05/21/24 22:59 06:59 14:59 Other: # Voids 2 Weight 145.15 kg GENERAL DESCRIPTION: Elderly male up in the chair, no distress. No tachypnea or accessory muscle of respiration use. HEENT: Shows Pallor , no scleral icterus. Oral mucous membrane is dry. No pharyngeal erythema or thrush NECK: Trachea central, no thyromegaly. LUNGS: Unlabored breathing. Decreased breath sound the base HEART: S1, S2, regular rate and rhythm. No loud murmur ABDOMEN: Soft, no tenderness , guarding or rigidity, no organomegaly EXTREMITIES: Right lower extremity wound has decreased in size with no slough tissue. SKIN: Diffuse rash throughout his body mostly to the torso NEUROLOGICAL: The patient is awake, alert, oriented x3, mood and affect normal. Results CBC & Chem 7: 05/22/24 07:41 05/21/24 05:29 Labs: Abnormal Lab Results - Last 24 Hours (Table) 05/20/24 05/20/24 05/20/24 Range/Units 18:42 18:42 20:23 RBC 4.04 L (4.30-5.90) m/uL Hgb 11.4 L (13.0-17.5) gm/dL Hct 34.4 L (39.0-53.0) % MCHC (32.0-37.0) g/dL RDW 16.9 H (11.5-15.5) % Plt Count (140-440) X 10*3/uL Monocytes # (0.20-1.00) X 10*3/uL Eosinophils # 1.4 H (0-0.7) k/uL Sodium 134 L (137-145) mmol/L Potassium 5.8 H (3.5-5.1) mmol/L Glucose 108 H (74-99) mg/dL AST 70 H (17-59) U/L C-Reactive Protein 4.5 H (<1.0) mg/dL Total Protein 6.0 L (6.3-8.2) g/dL Albumin 3.4 L (3.5-5.0) g/dL Urine Protein (Negative) Urine Blood (Negative) Amorphous Sediment (None) /hpf Urine Bacteria (None) /hpf Hyaline Casts (0-2) /lpf Urine Mucus (None) /hpf 05/21/24 05/21/24 05/21/24 Range/Units 03:18 05:29 05:29 RBC 4.06 L (4.30-5.90) m/uL Hgb 11.0 L (13.0-17.5) gm/dL Hct 34.8 L (39.0-53.0) % MCHC 31.6 L (32.0-37.0) g/dL RDW 17.6 H (11.5-15.5) % Plt Count 127 L (140-440) X 10*3/uL Monocytes # 1.02 H (0.20-1.00) X 10*3/uL Eosinophils # 1.75 H (0-0.7) k/uL Sodium (137-145) mmol/L Potassium (3.5-5.1) mmol/L Glucose 118 H (74-99) mg/dL AST 52 H (17-59) U/L C-Reactive Protein (<1.0) mg/dL Total Protein 6.0 L (6.3-8.2) g/dL Albumin 3.7 L (3.5-5.0) g/dL Urine Protein Trace H (Negative) Urine Blood Small H (Negative) Amorphous Sediment Rare H (None) /hpf Urine Bacteria Occasional H (None) /hpf Hyaline Casts 17 H (0-2) /lpf Urine Mucus Occasional H (None) /hpf Assessment and Plan (1) Leg wound, right Current Visit: Yes Status: Acute Code(s): S81.801A - UNSPECIFIED OPEN WOUND, RIGHT LOWER LEG, INITIAL ENCOUNTER SNOMED Code(s): 42155577869004073 (2) Drug rash Current Visit: Yes Status: Acute Code(s): L27.0 - GEN SKIN ERUPTION DUE TO DRUGS AND MEDS TAKEN INTERNALLY SNOMED Code(s): 19140614 (3) Cellulitis of right leg Current Visit: No Status: Acute Code(s): L03.115 - CELLULITIS OF RIGHT LOWER LIMB SNOMED Code(s): 17463589683833152 Plan: 1patient with generalized itching rash more likely allergic possible drug- related and also could be related to patient picking on his wound has been scratching around and will benefit from systemic steroids and Benadryl 2-patient wound to the right lower extremity previous culture positive for MRSA seems to be healing well culture has been obtained 3-vancomycin pharmacy to dose target trough of 15 while watching kidney function and Vanco trough closely We will follow on clinical condition and cultures to further adjust medication if needed Thank you for this consultation we will follow the patient along with you Dictation was produced using iMove dictation software. please excuse any gramma tical, word or spelling errors. Time with Patient: Greater than 30
[2024-05-22 08:21] LABS: ALT 19 U/L (4-49); AST 40 U/L (17-59); African American GFR (CKD) >90 (>60 ml/min/1.73 sqM); Albumin 3.9 g/dL (3.5-5.0); Alkaline Phosphatase 105 U/L (38-126); Anion Gap 10 mmol/L; Blood Urea Nitrogen 17 mg/dL (9-20); Calcium 9.3 mg/dL (8.4-10.2); Carbon Dioxide 27 mmol/L (22-30); Chloride 102 mmol/L (98-107); Glucose 106 mg/dL (74-99); Non-African American GFR(CKD) 88 (>60 ml/min/1.73 sqM); Sodium 139 mmol/L (137-145); Total Bilirubin 0.4 mg/dL (0.2-1.3); Total Protein 6.6 g/dL (6.3-8.2)
[2024-05-22] MEDS: PANTOPRAZOLE 40 MG TABLET PO SCH (08:41)
[2024-05-22] MEDS: FAMOTIDINE 20 MG TAB PO SCH (08:41)
[2024-05-22] MEDS: ENOXAPARIN 40 MG/0.4 ML SYRINGE SQ SCH (08:42)
[2024-05-22] MEDS: ESCITALOPRAM 10 MG TAB PO SCH (08:57)
--- NOTE | 2024-05-22 12:49 | P.PN ---
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 Patient white count is 7.8, creatinine 0.84 culture currently growing presented Staph aureus Objective - Vital Signs Vital signs: Vital Signs Temp 97.6 F 05/22/24 08:00 Pulse 81 05/22/24 08:00 Resp 17 05/22/24 08:00 BP 146/78 05/22/24 08:00 Pulse Ox 97 05/22/24 08:00 FiO2 Intake & Output 05/21/24 05/22/24 05/22/24 18:59 06:59 18:59 Intake Total 520 Output Total 225 1200 Balance 295 -1200 Weight 145.15 kg Intake: Oral 520 Output: Urine 225 1200 Other: Voiding Method Toilet Toilet # Voids 1 4 # Bowel Movements 1 - Exam GENERAL DESCRIPTION: An elderly male up in the chair in no distress RESPIRATORY SYSTEM: Unlabored breathing , decreased breath sounds at bases HEART: S1 S2 regular rate and rhythm , ABDOMEN: Soft , no tenderness Skin examination did shows diffuse rash slightly decreased in intensity no vesicles - Labs CBC & Chem 7: 05/22/24 07:41 05/22/24 07:41 Labs: Abnormal Lab Results - Last 24 Hours (Table) 05/22/24 05/22/24 Range/Units 07:41 07:41 RBC 4.21 L (4.30-5.90) m/uL Hgb 11.6 L (13.0-17.5) gm/dL Hct 37.6 L (39.0-53.0) % MCHC 30.7 L (31.0-37.0) g/dL RDW 16.8 H (11.5-15.5) % Lymphocytes # 0.9 L (1.0-4.8) k/uL Glucose 106 H (74-99) mg/dL Microbiology - Last 24 Hours (Table) 05/21/24 05:31 Gram Stain - Preliminary Leg - Left Wound Culture - Preliminary Presumptive Staph aureus Assessment and Plan (1) Leg wound, right Current Visit: Yes Status: Acute Code(s): S81.801A - UNSPECIFIED OPEN WOUND, RIGHT LOWER LEG, INITIAL ENCOUNTER SNOMED Code(s): 65090033039971230 (2) Drug rash Current Visit: Yes Status: Acute Code(s): L27.0 - GEN SKIN ERUPTION DUE TO DRUGS AND MEDS TAKEN INTERNALLY SNOMED Code(s): 12447166 (3) Cellulitis of right leg Current Visit: No Status: Acute Code(s): L03.115 - CELLULITIS OF RIGHT LOWER LIMB SNOMED Code(s): 04123628026202681 Plan: 1patient with generalized itching rash more likely allergic possible drug- related and also could be related to patient picking on his wound has been scratching around and will benefit from systemic steroids and Benadryl 2-patient wound to the right lower extremity previous culture positive for MRSA seems to be healing, local culture has been obtained 3-local culture currently growing Staph aureus with sensitivities pending, will continue vancomycin pharmacy to dose target trough of 15 while watching kidney function and Vanco trough closely Multiple question concern answered Dictation was produced using [employer] dictation software. please excuse any grammatical, word or spelling errors. Time with Patient: Less than 30
[2024-05-23] MEDS: VANCOMYCIN TROUGH DUE 1 EACH MISC MISCELLANE ONE (09:06)
--- NOTE | 2024-05-23 11:49 | P.CONS ---
History of Present Illness - Reason for Consult Consult date: 05/23/24 wound care - History of Present Illness This is a 73-year-old gentleman with history of MRSA being seen for nonhealing ulceration to the right posterior shoulder. Patient states that the ulceration comes and goes. He does have a tendency to reopen it by scratching. Patient has history of MRSA. Patient states that he is not able to utilize any creams that are oil-based because they bother his skin. He has utilized silver to the site previously. Ulceration measures approximately 2 x 2 x 0.1 cm with epithelialized skin noted. Small area of open ulceration that is limited to skin breakdown. Review Of Systems: Constitutional: No fever, no chills, no night sweats. No weight change. No weakness, fatigue or lethargy. No daytime sleepiness. Integumentary:reports wounds, no lesions. No rash or pruritus. No unusual bruising. No change in hair or nails. Physical exam: General Appearance: Alert, cooperative, no distress, appears stated age. Skin: See HPI all other Skin color, texture, tugor normal, no rashes or lesions. Neurologic: Alert oriented x3 Assessment: 1. Nonhealing ulceration limited to skin breakdown to the back Plan: 1. Apply zinc barrier cream to the site daily. May wash with warm soapy water. Instructed patient to avoid scratching the area to reopen. Patient verbalized understanding. Thank you for the consultation any questions please contact the wound care center DNP note has been reviewed and discussed with Dr. Segura and the impression and plan of care has been directed as dictated. Past Medical History Past Medical History: Hypertension, Osteoarthritis (OA) Additional Past Medical History / Comment(s): ETOH abuse, chronic back pain, BLE neuropathy, lymphedema, multiple falls History of Any Multi-Drug Resistant Organisms: MRSA Year Discovered:: 04/23/24 MDRO Source:: RT LEG Past Surgical History: Back Surgery, Orthopedic Surgery, Tonsillectomy Additional Past Surgical History / Comment(s): 3 back laminectomies, hand surgery s/p trauma to reattatch tendons Past Anesthesia/Blood Transfusion Reactions: No Reported Reaction Past Psychological History: No Psychological Hx Reported Smoking Status: Never smoker Past Alcohol Use History: Daily, Heavy Past Drug Use History: None Reported - Past Family History Father Family Medical History: Hypertension Mother Family Medical History: Cancer Additional Family Medical History / Comment(s): Lung cancer Brother(s) Family Medical History: No Reported History Sister(s) Family Medical History: Hypertension Daughter(s) Family Medical History: No Reported History Medications and Allergies Home Medications Medication Instructions Recorded Confirmed Type Furosemide [Lasix] 40 mg PO DAILY 04/24/23 05/21/24 History amLODIPine [Norvasc] 5 mg PO DAILY 04/24/23 05/21/24 History Atorvastatin [Lipitor] 40 mg PO DAILY tab 01/12/24 05/21/24 Rx Memantine [Namenda] 10 mg PO BID tab 01/12/24 05/21/24 Rx Cetirizine HCl 10 mg PO DAILY 05/21/24 05/21/24 History Famotidine [Pepcid] 20 mg PO HS PRN 05/21/24 05/21/24 History Folic Acid 0.8 mg PO DAILY 05/21/24 05/21/24 History Hydrocortisone Cream 1 applic TOPICAL BID 05/21/24 05/21/24 History [Hydrocortisone 2.5% Cream] Losartan [Cozaar] 50 mg PO DAILY 05/21/24 05/21/24 History Pantoprazole [Protonix] 40 mg PO DAILY 05/21/24 05/21/24 History Pregabalin [Lyrica] 200 mg PO BID 05/21/24 05/21/24 History hydrOXYzine HCL [Atarax] 10 mg PO BID 05/21/24 05/21/24 History methylPREDNISolone Dose Pack See Taper PO DIRECTED 05/21/24 05/21/24 History [Medrol Dose Pack] oxyCODONE-APAP 10-325MG [Percocet 1 tab PO Q4H PRN 05/21/24 05/21/24 History 10-325 mg] Allergies Allergy/AdvReac Type Severity Reaction Status Date / Time No Known Allergies Allergy Verified 05/21/24 14:30 Physical Exam Vitals: Vital Signs Temp Pulse Resp BP Pulse Ox 05/23/24 08:21 97.5 F L 77 18 119/77 98 05/23/24 01:32 65 16 135/65 99 05/22/24 20:00 98.0 F 81 17 134/66 97 05/22/24 14:00 98.6 F 96 16 120/55 95 Intake and Output 05/22/24 05/23/24 05/23/24 22:59 06:59 14:59 Output Total 700 Balance -700 Output: Urine 700 Other: Voiding Method Toilet Results CBC & Chem 7: 05/22/24 07:41 05/22/24 07:41 Labs: Microbiology - Last 24 Hours (Table) 05/21/24 05:31 Gram Stain - Final Leg - Left Wound Culture - Final Methicillin resist S. 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
[2024-05-23] MEDS: ZINC OXIDE PASTE (Z-GUARD) 1 APPLIC TOPICAL SCH (12:36)
[2024-05-23] MEDS: FUROSEMIDE 40 MG TAB PO SCH (16:57)
[2024-05-23] MEDS: POTASSIUM CHLORIDE ER 20 MEQ TAB.ER PO SCH (16:57)
--- NOTE | 2024-05-23 17:39 | P.PN ---
Subjective Progress Note Date: 05/22/24 Chief Complaint: Recurrent MRSA infection HISTORY OF PRESENT ILLNESS: This is a 73-year-old male one of my patient with a previous medical history significant for hypertension and hypertensive cardiovascular disease, hyperlipidemia, obesity with obstructive sleep apnea, history of chronic alcohol use and dependence with the peripheral neuropathy, significant spondylosis of the lumbar spine with spinal stenosis and significant chronic low back pain, patient was recently hospitalized at [facility] about a month ago for MRSA cellulitis of the left lower extremity along with multiple wounds secondary to him being picking on his skin along with significant rash that he was seen dermatology for and he was diagnosed with allergic dermatitis and he was suppos ed to be on steroid cream as well as oral medications patient done well however patient also was diagnosed with COVID-19 in the last hospital admission he was treated with IV steroid and he was sent back to his assisted living at [facility], patient was supposed to come to the office for follow-up, he never made the post hospital follow-up, however the patient's visiting nurse called the office yesterday stated the patient is complaining of significant rash all over his body and is continues to pick at his skin, and he has multiple scabbed wounds all over his body 1 in the right shoulder, and multiple ones in the abdomen and both lower extremities, at that time we had contacted the pharmacy and called a steroid along with hydroxyzine 10 mg orally twice every day as well as a Medrol Dosepak, however the patient never picked up the prescription he ended up showing up to the ER for evaluation, I received a phone call from the emergency room physician yesterday stating the patient has significant rash all over his body associated with increased wound on the right shoulder as well as abdomen as well as lower extremity with different stages of healing because of the prior history of MRSA infection he was started on IV antibiotic in the form of vancomycin, I started the patient on Solu-Medrol 40 mg IV push every 8 hours, will place the patient on Benadryl 25 mg IV push every 6 hours, montelukast 10 mg once every day, and also placed the patient on famotidine 20 mg once every d ay, we will apply triamcinolone cream 0.1% to be applied twice every day to the affected area, infectious disease consultation was obtained I believe the patient will need to follow-up with dermatology for further evaluation recommendation. 05/22: Patient is sitting up in a chair in no apparent distress, he continues to have significant scratching all over his body, he continues to have a wound to the right shoulder, he has been getting IV antibiotic in the form of vancomycin, infectious disease following, he will be seen in consultation by wound care for wound care management, we will continue to follow-up with the patient very closely continue famotidine, continue Solu-Medrol, continue montelukast, continue with Benadryl, patient will need to follow-up with his recooperer Dr. Knapp as an outpatient. REVIEW OF SYSTEMS: Constitutional: No documented fever, no chills, no night sweats. No weight change. positive for weakness , reports fatigue reports lethargy. Positive for daytime sleepiness. HEENT: No headache. No blurred vision or double vision, no loss of vision. No loss of Hearing, no ringing in the ears, no dizziness. No nasal drainage or congestion. No epistaxis. No sore throat. Lungs: No shortness of breath, no cough, no sputum production. No wheezing. Re ports dyspnea with activity. Cardiovascular: No chest pain, positive for lower extremity edema. No palpitations. No paroxysmal nocturnal dyspnea. No orthopnea. No lightheadedness or dizziness. No syncopal episodes.Positive for nocturia. Abdominal: No abdominal pain. No nausea, vomiting. No diarrhea. No constipation. No bloody or tarry stools . No loss of appetite. Genitourinary: No dysuria, increased frequency, urgency. No urinary retention. Musculoskeletal: positive for neck pain, positive for chronic low back pain, positive for significant pain in both lower extremities with significant neuropathy, positive for gait dysfunction, positive for lower extremity weakness. Integumentary: Positive for multiple skin lesions at different stages of healing associated with wound to the right shoulder, abdomen, left lower extremity, with some scab on top of it, with significant erythema to the right side of the torso, appears to be red with significant scratch boucher all over his body. Neurologic: No aphasia. No facial droop. Memory loss. No head injury. No headache, positive for paresthesia in both lower extremities Psychiatric: Patient does appear to be somewhat depressed, appears to be a bit anxious, no suicidal thoughts or ideation. Endocrine: No abnormal blood sugars, increased weight. PHYSICAL EXAMINATION: General: This is a 73-year-old male who is resting in bed and does not appear to be in acute distress. HEENT: Head is atraumatic, normocephalic, pupils were equal round reactive to light and recommendation, extraocular muscle movement were intact, sclera nonicteric, conjunctivae were pale, mucous membranes of the mouth are somewhat dry. Neck: Supple, no JVP, normal carotid upstroke bilaterally, no lymphadenopathy. Chest: Decreased breath sounds at the bases, few rhonchi, no expiratory wheezes, no chest wall tenderness, no intercostal retractions. Heart: First heart sound is normal, second heart sound is normal there is systolic ejection murmur 2/6 located in the left sternal border. Abdomen: Soft, nontender, nondistended, positive bowel sounds. Extremities: There is chronic significant venous stasis of right lower extremity with a chronic skin changes dorsalis pedis +1 bilaterally, right lower extremity with open wound and fat exposure with cellulitis Neurologic examination: Patient is awake alert and oriented X 3, cranial nerves II-12 appear grossly intact, muscle power were 4 out of 5 in upper extremities and 3out of 5 in bilateral lower extremities, deep tendon reflexes were depressed bilaterally. Skin examination: Significant eruption with maculopapular rash with significant scabs all over his abdomen torso upper and lower extremities as well as a wound to the right shoulder that measures about 2.5 x 2.5 x 0.1 cm and other scabs to the lower extremities and abdomen, with erythema to the right torso. ASSESSMENT AND PLAN: 1. Significant eruption likely related to allergic dermatitis with possible MRSA infection due to recurrent inoculation and scratching. Start the patient on vancomycin pharmacy to dose his peak and trough, infectious disease consultation, I will continue the patient on Benadryl 25 mg IV push every 6 hours, Solu-Medrol 40 mg IV push every 8 hours, famotidine 20 mg orally once every day, start the patient also on montelukast 10 mg orally once every day, we will start the patient on triamcinolone 0.1% cream to be applied twice every day we will follow-up with the patient very closely patient will need to have follow-up with dermatology as an outpatient for further recommendation. 2. Right lower extremity stasis dermatitis with multiple scabbed lesions continue patient on vancomycin pharmacy to dose its peak and trough, infectious disease consultation, continue current treatment as in previous paragraph. 3. Hypertension and hypertensive cardiovascular disease. Continue patient on amlodipine 5 mg daily, losartan 100 mg orally once every day. Will continue to monitor the patient very closely. 4. Hyperlipidemia. Continue atorvastatin 40 mg daily. Keep LDL 55-70. 5. Vascular dementia. We will continue Namenda 10 mg po bid 6. History of chronic alcohol use and dependence. patient has quit 7. 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 Patient on oxycodone 10/325 mg 1 tablet every 4 hours as needed, monitor the patient very closely. 8. Bilateral lower extremity neuropathy continue patient on Lyrica 200 mg orall y twice every day. 9. Depression. Continue patient on Lexapro 10 mg once every day as well as sasha tazapine 30 mg orally once every day. 10. DVT prophylaxis. Continue Lovenox 40 mg subcutaneously every 24 hours. 11. GI prophylaxis. Continue Protonix 40 mg orally once every day and famotidine 20 mg orally once every day. Objective - Vital Signs Vital signs: Vital Signs Temp 97.6 F 05/22/24 08:00 Pulse 81 05/22/24 08:00 Resp 17 05/22/24 08:00 BP 146/78 05/22/24 08:00 Pulse Ox 97 05/22/24 08:00 FiO2 Intake & Output 05/21/24 05/22/24 05/22/24 18:59 06:59 18:59 Intake Total 520 Output Total 225 1200 Balance 295 -1200 Weight 145.15 kg Intake: Oral 520 Output: Urine 225 1200 Other: Voiding Method Toilet Toilet # Voids 1 4 # Bowel Movements 1 - Labs CBC & Chem 7: 05/22/24 07:41 05/22/24 07:41 Labs: Abnormal Lab Results - Last 24 Hours (Table) 05/22/24 05/22/24 Range/Units 07:41 07:41 RBC 4.21 L (4.30-5.90) m/uL Hgb 11.6 L (13.0-17.5) gm/dL Hct 37.6 L (39.0-53.0) % MCHC 30.7 L (31.0-37.0) g/dL RDW 16.8 H (11.5-15.5) % Lymphocytes # 0.9 L (1.0-4.8) k/uL Glucose 106 H (74-99) mg/dL Microbiology - Last 24 Hours (Table) 05/21/24 05:31 Gram Stain - Preliminary Leg - Left Wound Culture - Preliminary Presumptive Staph aureus
--- NOTE | 2024-05-23 17:55 | P.PN ---
Subjective Progress Note Date: 05/23/24 Chief Complaint: Recurrent MRSA infection HISTORY OF PRESENT ILLNESS: This is a 73-year-old male one of my patient with a previous medical history significant for hypertension and hypertensive cardiovascular disease, hyperlipidemia, obesity with obstructive sleep apnea, history of chronic alcohol use and dependence with the peripheral neuropathy, significant spondylosis of the lumbar spine with spinal stenosis and significant chronic low back pain, patient was recently hospitalized at [facility] about a month ago for MRSA cellulitis of the left lower extremity along with multiple wounds secondary to him being picking on his skin along with significant rash that he was seen dermatology for and he was diagnosed with allergic dermatitis and he was suppos ed to be on steroid cream as well as oral medications patient done well however patient also was diagnosed with COVID-19 in the last hospital admission he was treated with IV steroid and he was sent back to his assisted living at [facility], patient was supposed to come to the office for follow-up, he never made the post hospital follow-up, however the patient's visiting nurse called the office yesterday stated the patient is complaining of significant rash all over his body and is continues to pick at his skin, and he has multiple scabbed wounds all over his body 1 in the right shoulder, and multiple ones in the abdomen and both lower extremities, at that time we had contacted the pharmacy and called a steroid along with hydroxyzine 10 mg orally twice every day as well as a Medrol Dosepak, however the patient never picked up the prescription he ended up showing up to the ER for evaluation, I received a phone call from the emergency room physician yesterday stating the patient has significant rash all over his body associated with increased wound on the right shoulder as well as abdomen as well as lower extremity with different stages of healing because of the prior history of MRSA infection he was started on IV antibiotic in the form of vancomycin, I started the patient on Solu-Medrol 40 mg IV push every 8 hours, will place the patient on Benadryl 25 mg IV push every 6 hours, montelukast 10 mg once every day, and also placed the patient on famotidine 20 mg once every d ay, we will apply triamcinolone cream 0.1% to be applied twice every day to the affected area, infectious disease consultation was obtained I believe the patient will need to follow-up with dermatology for further evaluation recommendation. 05/22: Patient is sitting up in a chair in no apparent distress, he continues to have significant scratching all over his body, he continues to have a wound to the right shoulder, he has been getting IV antibiotic in the form of vancomycin, infectious disease following, he will be seen in consultation by wound care for wound care management, we will continue to follow-up with the patient very closely continue famotidine, continue Solu-Medrol, continue montelukast, continue with Benadryl, patient will need to follow-up with his car oiler Dr. Knapp as an outpatient. 05/23: Patient is sitting up in a chair he continues to be scratching all over his body, he continues to have issues with significant skin eruptions especially on his back the chest torso both lower extremities, continue Solu-Medrol 40 mg IV push every 8 hours, continue famotidine 20 mg once every day, continue Benadryl [id number], continue triamcinolone cream, we will follow-up with the patient very closely. Patient was seen by wound care team and will continue current treatment plan. REVIEW OF SYSTEMS: Constitutional: No documented fever, no chills, no night sweats. No weight change. positive for weakness , reports fatigue reports lethargy. Positive for daytime sleepiness. HEENT: No headache. No blurred vision or double vision, no loss of vision. No loss of Hearing, no ringing in the ears, no dizziness. No nasal drainage or congestion. No epistaxis. No sore throat. Lungs: No shortness of breath, no cough, no sputum production. No wheezing. Reports dyspnea with activity. Cardiovascular: No chest pain, positive for lower extremity edema. No p alpitations. No paroxysmal nocturnal dyspnea. No orthopnea. No lightheadedness or dizziness. No syncopal episodes.Positive for nocturia. Abdominal: No abdominal pain. No nausea, vomiting. No diarrhea. No constipation. No bloody or tarry stools . No loss of appetite. Genitourinary: No dysuria, increased frequency, urgency. No urinary retention. Musculoskeletal: positive for neck pain, positive for chronic low back pain, positive for significant pain in both lower extremities with significant neuropathy, positive for gait dysfunction, positive for lower extremity weakness. Integumentary: Positive for multiple skin lesions at different stages of healing associated with wound to the right shoulder, abdomen, left lower extremity, with some scab on top of it, with significant erythema to the right side of the torso, appears to be red with significant scratch boucher all over his body. Neurologic: No aphasia. No facial droop. Memory loss. No head injury. No headache, positive for paresthesia in both lower extremities Psychiatric: Patient does appear to be somewhat depressed, appears to be a bit anxious, no suicidal thoughts or ideation. Endocrine: No abnormal blood sugars, increased weight. PHYSICAL EXAMINATION: General: This is a 73-year-old male who is resting in bed and does not appear to be in acute distress. HEENT: Head is atraumatic, normocephalic, pupils were equal round reactive to light and recommendation, extraocular muscle movement were intact, sclera nonicteric, conjunctivae were pale, mucous membranes of the mouth are somewhat dry. Neck: Supple, no JVP, normal carotid upstroke bilaterally, no lymphadenopathy. Chest: Decreased breath sounds at the bases, few rhonchi, no expiratory wheezes, no chest wall tenderness, no intercostal retractions. Heart: First heart sound is normal, second heart sound is normal there is systolic ejection murmur 2/6 located in the left sternal border. Abdomen: Soft, nontender, nondistended, positive bowel sounds. Extremities: There is chronic significant venous stasis of right lower extremity with a chronic skin changes dorsalis pedis +1 bilaterally, right lower extremity with open wound and fat exposure with cellulitis Neurologic examination: Patient is awake alert and oriented X 3, cranial nerves II-12 appear grossly intact, muscle power were 4 out of 5 in upper extremities and 3out of 5 in bilateral lower extremities, deep tendon reflexes were depressed bilaterally. Skin examination: Significant eruption with maculopapular rash with significant scabs all over his abdomen torso upper and lower extremities as well as a wound to the right shoulder that measures about 2.5 x 2.5 x 0.1 cm and other scabs to the lower extremities and abdomen, with erythema to the right torso. ASSESSMENT AND PLAN: 1. Significant eruption likely related to allergic dermatitis with possible MRSA infection due to recurrent inoculation and scratching. Start the patient on vancomycin pharmacy to dose his peak and trough, infectious disease consultation, I will continue the patient on Benadryl 25 mg IV push every 6 hours, Solu-Medrol 40 mg IV push every 8 hours, famotidine 20 mg orally once every day, start the patient also on montelukast 10 mg orally once every day, we will start the patient on triamcinolone 0.1% cream to be applied twice every day we will follow-up with the patient very closely patient will need to have follow-up with dermatology as an outpatient for further recommendation. 2. Right lower extremity stasis dermatitis with multiple scabbed lesions continue patient on vancomycin pharmacy to dose its peak and trough, infectious disease consultation, continue current treatment as in previous paragraph. 3. Hypertension and hypertensive cardiovascular disease. Continue patient on amlodipine 5 mg daily, losartan 100 mg orally once every day. Will continue to monitor the patient very closely. 4. Hyperlipidemia. Continue atorvastatin 40 mg daily. Keep LDL 55-70. 5. Vascular dementia. We will continue Namenda 10 mg po bid 6. History of chronic alcohol use and dependence. patient has quit 7. 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 Patient on oxycodone 10/325 mg 1 tablet every 4 hours as needed, monitor the patient very closely. 8. Bilateral lower extremity neuropathy continue patient on Lyrica 200 mg orally twice every day. 9. Depression. Continue patient on Lexapro 10 mg once every day as well as mirtazapine 30 mg orally once every day. 10. DVT prophylaxis. Continue Lovenox 40 mg subcutaneously every 24 hours. 11. GI prophylaxis. Continue Protonix 40 mg orally once every day and famotidine 20 mg orally once every day. 12. Increase activity. 13. Physical therapy evaluation 14. Social work consultation for discharge planning. Objective - Vital Signs Vital signs: Vital Signs Temp 97.3 F L 05/23/24 13:23 Pulse 82 05/23/24 13:23 Resp 20 05/23/24 13:23 BP 140/69 05/23/24 13:23 Pulse Ox 97 05/23/24 13:23 FiO2 Intake & Output 05/22/24 05/23/24 05/23/24 18:59 06:59 18:59 Output Total 1200 700 Balance -1200 -700 Output: Urine 1200 700 Other: Voiding Method Toilet Toilet # Voids 1 # Bowel Movements 1 - Labs CBC & Chem 7: 05/22/24 07:41 05/22/24 07:41 Labs: Microbiology - Last 24 Hours (Table) 05/21/24 05:31 Anaerobic Culture - Preliminary Leg - Left 05/21/24 05:31 Gram Stain - Final Leg - Left Wound Culture - Final Methicillin resist S. aureus
[2024-05-23] MEDS ORDERED: oxyCODONE-APAP 10-325MG 1 EACH TAB PO SCH (21:00)
[2024-05-23] MEDS: LACTULOSE 20 GM/30 ML CUP PO SCH (21:02)
[2024-05-23] MEDS: oxyCODONE-APAP 10-325MG 1 EACH TAB PO SCH (21:03)
[2024-05-24] MEDS: oxyCODONE-APAP 10-325MG 1 EACH TAB PO SCH (03:26)
[2024-05-24 05:21] LABS: ALT 21 U/L (4-49); AST 33 U/L (17-59); African American GFR (CKD) 84 (>60 ml/min/1.73 sqM); Albumin 3.4 g/dL (3.5-5.0); Albumin/Globulin Ratio 1.4; Alkaline Phosphatase 83 U/L (38-126); Anion Gap 8 mmol/L; Blood Urea Nitrogen 29 mg/dL (9-20); Calcium 8.7 mg/dL (8.4-10.2); Carbon Dioxide 25 mmol/L (22-30); Chloride 105 mmol/L (98-107); Globulin 2.5 g/dL; Glucose 165 mg/dL (74-99); Non-African American GFR(CKD) 72 (>60 ml/min/1.73 sqM); Potassium 4.6 mmol/L (3.5-5.1); Sodium 138 mmol/L (137-145); Total Bilirubin 0.3 mg/dL (0.2-1.3); Total Protein 5.9 g/dL (6.3-8.2)
[2024-05-24] MEDS: VANCOMYCIN 2,250 MG in SODIUM CHLORIDE 0.9% 500 ML 500 ML IVPB SCH (06:28)
[2024-05-24 08:43] LABS: Basophils # (A) 0.02 X 10*3/uL (0.00-0.10); Basophils % (A) 0.1 %; Eosinophils # (A) 0 X 10*3/uL (0.04-0.35); Eosinophils % (A) 0 %; HCT 32.4 % (39.6-50.0); HGB 10.2 g/dL (13.0-17.0); Lymphocytes % (A) 7.4 %; MCH 27.6 pg (27.0-32.0); MCHC 31.5 g/dL (32.0-37.0); MCV 87.6 FL (80.0-97.0); Mean Platelet Volume 11.1 FL (9.5-12.2); Monocytes # (A) 0.64 X 10*3/uL (0.20-1.00); Monocytes % (A) 4.8 %; NRBC Per 100 WBC 0 X 10*3/uL (0.00-0.01); Neutrophils # (A) 11.55 X 10*3/uL (1.80-7.70); Neutrophils % (A) 86.1 %; Platelet Count 256 X 10*3/uL (140-440); WBC 13.43 X 10*3/uL (4.50-10.00)
[2024-05-24] MEDS: methylPREDNISolone SOD SUCCI 125 MG/2 ML VIAL IV STA (14:01)
--- NOTE | 2024-05-24 14:49 | P.PN ---
Subjective Progress Note Date: 05/23/24 Principal diagnosis: Reason for follow-up is right leg wound cellulitis and rash Patient is a 73-year-old male with multiple comorbidities including hypertension osteoarthritis recent admission to the hospital with COVID-19 and the patient also have a right lower extremity wound with second cellulitis culture positive for MRSA, patient now presenting to the hospital with generalized itchy rash and apparently patient has been diagnosed with allergic dermatitis in the outpatient setting by rollway man On today's evaluation that is 05/23/2024,the patient denies any fever or any chills, patient is breathing comfortably on room air, the patient denies chest pain shortness of breath and no significant cough, patient denies abdominal pain, no nausea vomiting or diarrhea. Patient continued complaining of significant itching especially to the trunk area no difficulty swallowing or tongue swelling. Patient did not have any lab draw today Objective - Vital Signs Vital signs: Vital Signs Temp 97.5 F L 05/23/24 08:21 Pulse 77 05/23/24 08:21 Resp 18 05/23/24 08:21 BP 119/77 05/23/24 08:21 Pulse Ox 98 05/23/24 08:21 FiO2 Intake & Output 05/22/24 05/23/24 05/23/24 18:59 06:59 18:59 Output Total 1200 700 Balance -1200 -700 Output: Urine 1200 700 Other: Voiding Method Toilet Toilet - Exam GENERAL DESCRIPTION: An elderly male up in the chair in no distress RESPIRATORY SYSTEM: Unlabored breathing , decreased breath sounds at bases HEART: S1 S2 regular rate and rhythm , ABDOMEN: Soft , no tenderness Skin examination did shows diffuse rash slightly decreased in intensity no vesicles - Labs CBC & Chem 7: 05/24/24 04:30 05/24/24 04:30 Labs: Microbiology - Last 24 Hours (Table) 05/21/24 05:31 Gram Stain - Final Leg - Left Wound Culture - Final Methicillin resist S. aureus Assessment and Plan (1) Leg wound, right Current Visit: Yes Status: Acute Code(s): S81.801A - UNSPECIFIED OPEN WOUND, RIGHT LOWER LEG, INITIAL ENCOUNTER SNOMED Code(s): 65898708784725444 (2) Drug rash Current Visit: Yes Status: Acute Code(s): L27.0 - GEN SKIN ERUPTION DUE TO DRUGS AND MEDS TAKEN INTERNALLY SNOMED Code(s): 23222709 (3) Cellulitis of right leg Current Visit: No Status: Acute Code(s): L03.115 - CELLULITIS OF RIGHT LOWER LIMB SNOMED Code(s): 81421776990986447 Plan: 1patient with generalized itching rash more likely allergic possible drug- related and also could be related to patient picking on his wound has been scratching around patient IV started on systemic steroids and Benadryl 2-patient wound to the right lower extremity previous culture positive for MRSA seems to be healing, local culture has been obtained 3-local culture currently growing MRSA and the patient is covered with the vancomycin pharmacy to dose will watch his kidney function closely Dictation was produced using [employer] dictation software. please excuse any grammatical, word or spelling errors. Time with Patient: Less than 30
--- NOTE | 2024-05-24 14:51 | P.PN ---
Subjective Progress Note Date: 05/24/24 Principal diagnosis: Reason for follow-up is right leg wound cellulitis and rash Patient is a 73-year-old male with multiple comorbidities including hypertension osteoarthritis recent admission to the hospital with COVID-19 and the patient also have a right lower extremity wound with second cellulitis culture positive for MRSA, patient now presenting to the hospital with generalized itchy rash and apparently patient has been diagnosed with allergic dermatitis in the outpatient setting by hand compositor On today's evaluation that is 05/24/2024,the patient remains to be afebrile, patient is on room air not requiring supplemental oxygen and denies any shortness of breath no chest pain or cough.Patient denies having any nausea or vomiting, no abdominal pain and no diarrhea has been reported patient is complaining of rash especially reaching that driving him crazy to the trunk area did not have any open wound or drainage. Patient white count is 13.43, creatinine 1.04 Objective - Vital Signs Vital signs: Vital Signs Temp 98.0 F 05/24/24 08:00 Pulse 66 05/24/24 08:00 Resp 18 05/24/24 08:00 BP 153/77 05/24/24 08:00 Pulse Ox 97 05/24/24 08:00 FiO2 Intake & Output 05/23/24 05/24/24 05/24/24 18:59 06:59 18:59 Intake Total 1250 Balance 1250 Intake: Intake, IV Titration 500 Amount Vancomycin 2,250 mg In 500 Sodium Chloride 0.9% 500 ml 500 ml @ 167 mls/hr IVPB Q24H COUNTS INCLUDE 234 BEDS AT THE [facility] Rx#: [id number] Oral 750 Other: Voiding Method Toilet # Voids 2 3 # Bowel Movements 0 - Exam GENERAL DESCRIPTION: An elderly male up in the chair in no distress RESPIRATORY SYSTEM: Unlabored breathing , decreased breath sounds at bases HEART: S1 S2 regular rate and rhythm , ABDOMEN: Soft , no tenderness Skin examination did shows diffuse rash especially to the trunk a rash to the upper lower extremity has decreased in intensity - Labs CBC & Chem 7: 05/24/24 04:30 05/24/24 04:30 Labs: Abnormal Lab Results - Last 24 Hours (Table) 05/24/24 05/24/24 Range/Units 04:30 04:30 WBC 13.43 H (4.50-10.00) X 10*3/uL RBC 3.70 L (4.40-5.60) X 10*6/uL Hgb 10.2 L (13.0-17.0) g/dL Hct 32.4 L (39.6-50.0) % MCHC 31.5 L (32.0-37.0) g/dL RDW 18.0 H (11.5-14.5) % Immature Gran # 0.22 H (0.00-0.04) X 10*3/uL Neutrophils # 11.55 H (1.80-7.70) X 10*3/uL Eosinophils # 0 L (0.04-0.35) X 10*3/uL BUN 29 H (9-20) mg/dL Glucose 165 H (74-99) mg/dL Total Protein 5.9 L (6.3-8.2) g/dL Albumin 3.4 L (3.5-5.0) g/dL Microbiology - Last 24 Hours (Table) 05/21/24 05:31 Anaerobic Culture - Preliminary Leg - Left 05/21/24 05:31 Gram Stain - Final Leg - Left Wound Culture - Final Methicillin resist S. aureus Assessment and Plan (1) Leg wound, right Current Visit: Yes Status: Acute Code(s): S81.801A - UNSPECIFIED OPEN WOUND, RIGHT LOWER LEG, INITIAL ENCOUNTER SNOMED Code(s): 28418036534644103 (2) Drug rash Current Visit: Yes Status: Acute Code(s): L27.0 - GEN SKIN ERUPTION DUE TO DRUGS AND MEDS TAKEN INTERNALLY SNOMED Code(s): 99066579 (3) Cellulitis of right leg Current Visit: No Status: Acute Code(s): L03.115 - CELLULITIS OF RIGHT LOWER LIMB SNOMED Code(s): 55190689595648782 Plan: 1-patient wound to the right lower extremity previous culture positive for MRSA seems to be healing, local culture currently growing MRSA and the patient is covered with the vancomycin pharmacy to dose will watch his kidney function closely. 2patient with diffuse rash likely drug related his medication has been reviewed and likely offender could be losartan which will be discontinued as well as Pepcid will increase the dose of Solu-Medrol to 60 every 6 will also give him a 125 mg dose x 1 will add calamine lotion to the skin and see response, patient to have multiple question concern answered care was also discussed with admitting physician on the phone Dictation was produced using [employer] dictation software. please excuse any grammatical, word or spelling errors. Time with Patient: Greater than 30
[2024-05-24] MEDS: methylPREDNISolone SOD SUCCI 125 MG/2 ML VIAL IV SCH (16:12)
--- NOTE | 2024-05-24 16:41 | P.PN ---
Subjective Progress Note Date: 05/24/24 Chief Complaint: Recurrent MRSA infection HISTORY OF PRESENT ILLNESS: This is a 73-year-old male one of my patient with a previous medical history significant for hypertension and hypertensive cardiovascular disease, hyperlipidemia, obesity with obstructive sleep apnea, history of chronic alcohol use and dependence with the peripheral neuropathy, significant spondylosis of the lumbar spine with spinal stenosis and significant chronic low back pain, patient was recently hospitalized at [facility] about a month ago for MRSA cellulitis of the left lower extremity along with multiple wounds secondary to him being picking on his skin along with significant rash that he was seen dermatology for and he was diagnosed with allergic dermatitis and he was suppos ed to be on steroid cream as well as oral medications patient done well however patient also was diagnosed with COVID-19 in the last hospital admission he was treated with IV steroid and he was sent back to his assisted living at [facility], patient was supposed to come to the office for follow-up, he never made the post hospital follow-up, however the patient's visiting nurse called the office yesterday stated the patient is complaining of significant rash all over his body and is continues to pick at his skin, and he has multiple scabbed wounds all over his body 1 in the right shoulder, and multiple ones in the abdomen and both lower extremities, at that time we had contacted the pharmacy and called a steroid along with hydroxyzine 10 mg orally twice every day as well as a Medrol Dosepak, however the patient never picked up the prescription he ended up showing up to the ER for evaluation, I received a phone call from the emergency room physician yesterday stating the patient has significant rash all over his body associated with increased wound on the right shoulder as well as abdomen as well as lower extremity with different stages of healing because of the prior history of MRSA infection he was started on IV antibiotic in the form of vancomycin, I started the patient on Solu-Medrol 40 mg IV push every 8 hours, will place the patient on Benadryl 25 mg IV push every 6 hours, montelukast 10 mg once every day, and also placed the patient on famotidine 20 mg once every d ay, we will apply triamcinolone cream 0.1% to be applied twice every day to the affected area, infectious disease consultation was obtained I believe the patient will need to follow-up with dermatology for further evaluation recommendation. 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 Knapp as an outpatient. 05/23: Patient is sitting up in a chair he continues to be scratching all over his body, he continues to have issues with significant skin eruptions especially on his back the chest torso both lower extremities, continue Solu-Medrol 40 mg IV push every 8 hours, continue famotidine 20 mg once every day, continue Benadryl [id number], continue triamcinolone cream, we will follow-up with the patient very closely. Patient was seen by wound care team and will continue current treatment plan. 05/24: Patient is laying down in bed he continues to have significant itching in upper torso abdomen lower extremities better today, his Solu-Medrol was increased to 60 mg a push every 6 hours, discontinue losartan as it might be the culprit because of the reaction I will discontinue Lexapro as well, continue patient on mirtazapine 30 mg orally once every day, monitor the patient very closely, I will discontinue Benadryl start the patient on hydroxyzine 10 mg orally 3 times every day, continue famotidine 20 mg once every day, continue other treatment plan, monitor the patient very closely. Continue to apply triamcinolone cream twice every day, follow-up with dermatology as an outpatient. REVIEW OF SYSTEMS: Constitutional: No documented fever, no chills, no night sweats. No weight change. positive for weakness , reports fatigue reports lethargy. Positive for daytime sleepiness. HEENT: No headache. No blurred vision or double vision, no loss of vision. No loss of Hearing, no ringing in the ears, no dizziness. No nasal drainage or congestion. No epistaxis. No sore throat. Lungs: No shortness of breath, no cough, no sputum production. No wheezing. Reports dyspnea with activity. Cardiovascular: No chest pain, positive for lower extremity edema. No pal pitations. No paroxysmal nocturnal dyspnea. No orthopnea. No lightheadedness or dizziness. No syncopal episodes.Positive for nocturia. Abdominal: No abdominal pain. No nausea, vomiting. No diarrhea. No constipation. No bloody or tarry stools . No loss of appetite. Genitourinary: No dysuria, increased frequency, urgency. No urinary retention. Musculoskeletal: positive for neck pain, positive for chronic low back pain, positive for significant pain in both lower extremities with significant neuropathy, positive for gait dysfunction, positive for lower extremity weakness. Integumentary: Positive for multiple skin lesions at different stages of healing associated with wound to the right shoulder, abdomen, left lower extremity, with some scab on top of it, with significant erythema to the right side of the torso, appears to be red with significant scratch boucher all over his body. Neurologic: No aphasia. No facial droop. Memory loss. No head injury. No headache, positive for paresthesia in both lower extremities Psychiatric: Patient does appear to be somewhat depressed, appears to be a bit anxious, no suicidal thoughts or ideation. Endocrine: No abnormal blood sugars, increased weight. PHYSICAL EXAMINATION: General: This is a 73-year-old male who is resting in bed and does not appear to be in acute distress. HEENT: Head is atraumatic, normocephalic, pupils were equal round reactive to light and recommendation, extraocular muscle movement were intact, sclera nonicteric, conjunctivae were pale, mucous membranes of the mouth are somewhat dry. Neck: Supple, no JVP, normal carotid upstroke bilaterally, no lymphadenopathy. Chest: Decreased breath sounds at the bases, few rhonchi, no expiratory wheezes, no chest wall tenderness, no intercostal retractions. Heart: First heart sound is normal, second heart sound is normal there is systolic ejection murmur 2/6 located in the left sternal border. Abdomen: Soft, nontender, nondistended, positive bowel sounds. Extremities: There is chronic significant venous stasis of right lower extremity with a chronic skin changes dorsalis pedis +1 bilaterally, right lower extremity with open wound and fat exposure with cellulitis Neurologic examination: Patient is awake alert and oriented X 3, cranial nerves II-12 appear grossly intact, muscle power were 4 out of 5 in upper extremities and 3out of 5 in bilateral lower extremities, deep tendon reflexes were depressed bilaterally. Skin examination: Significant eruption with maculopapular rash with significant scabs all over his abdomen torso upper and lower extremities as well as a wound to the right shoulder that measures about 2.5 x 2.5 x 0.1 cm and other scabs to the lower extremities and abdomen, with erythema to the right torso. ASSESSMENT AND PLAN: 1. Significant eruption likely related to allergic dermatitis with possible MRSA infection due to recurrent inoculation and scratching. Start the patient on vancomycin pharmacy to dose his peak and trough, infectious disease consultation, I will discontinue Benadryl start the patient on hydroxyzine 10 mg orally 3 times every day, increase Solu-Medrol to 60 mg IV push every 8 hours, famotidine 20 mg orally once every day, start the patient also on montelukast 10 mg orally once every day, continue patient on triamcinolone 0.1% cream to be applied twice every day we will follow-up with the patient very closely patient will need to have follow-up with dermatology as an outpatient for further recommendation. 2. Right lower extremity stasis dermatitis with multiple scabbed lesions c ontinue patient on vancomycin pharmacy to dose its peak and trough, infectious disease consultation, continue current treatment as in previous paragraph. 3. Hypertension and hypertensive cardiovascular disease. Continue patient on amlodipine and increased to 10 mg orally once every day discontinue losartan as it may be the culprit for the eruption, monitor the patient blood pressure very closely. 4. Hyperlipidemia. Continue atorvastatin 40 mg daily. Keep LDL 55-70. 5. Vascular dementia. We will continue Namenda 10 mg po bid 6. History of chronic alcohol use and dependence. patient has quit 7. 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 Patient on oxycodone 10/325 mg 1 tablet every 4 hours as needed, monitor the patient very closely. 8. Bilateral lower extremity neuropathy continue patient on Lyrica 200 mg orally twice every day. 9. Depression. Discontinue Lexapro and continue mirtazapine 30 mg orally once every day. 10. DVT prophylaxis. Continue Lovenox 40 mg subcutaneously every 24 hours. 11. GI prophylaxis. Continue Protonix 40 mg orally once every day and famotidine 20 mg orally once every day. 12. Increase activity. 13. Physical therapy evaluation 14. Social work consultation for discharge planning. Objective - Vital Signs Vital signs: Vital Signs Temp 98.2 F 05/24/24 15:02 Pulse 65 05/24/24 15:02 Resp 16 05/24/24 15:02 BP 134/68 05/24/24 15:02 Pulse Ox 97 05/24/24 15:02 FiO2 Intake & Output 05/23/24 05/24/24 05/24/24 18:59 06:59 18:59 Intake Total 1250 Balance 1250 Intake: Intake, IV Titration 500 Amount Vancomycin 2,250 mg In 500 Sodium Chloride 0.9% 500 ml 500 ml @ 167 mls/hr IVPB Q24H [facility] Rx#: [id number] Oral 750 Other: Voiding Method Toilet # Voids 2 3 # Bowel Movements 0 - Labs CBC & Chem 7: 05/24/24 04:30 05/24/24 04:30 Labs: Abnormal Lab Results - Last 24 Hours (Table) 05/24/24 05/24/24 Range/Units 04:30 04:30 WBC 13.43 H (4.50-10.00) X 10*3/uL RBC 3.70 L (4.40-5.60) X 10*6/uL Hgb 10.2 L (13.0-17.0) g/dL Hct 32.4 L (39.6-50.0) % MCHC 31.5 L (32.0-37.0) g/dL RDW 18.0 H (11.5-14.5) % Immature Gran # 0.22 H (0.00-0.04) X 10*3/uL Neutrophils # 11.55 H (1.80-7.70) X 10*3/uL Eosinophils # 0 L (0.04-0.35) X 10*3/uL BUN 29 H (9-20) mg/dL Glucose 165 H (74-99) mg/dL Total Protein 5.9 L (6.3-8.2) g/dL Albumin 3.4 L (3.5-5.0) g/dL Microbiology - Last 24 Hours (Table) 05/21/24 05:31 Anaerobic Culture - Preliminary Leg - Left
[2024-05-24] MEDS: hydrOXYzine HCL 10 MG TAB PO SCH (18:42)
[2024-05-25] MEDS: amLODIPine 10 MG TAB PO SCH (09:23)
[2024-05-25 09:39] LABS: Basophils # (A) 0.02 X 10*3/uL (0.00-0.10); Basophils % (A) 0.2 %; Eosinophils # (A) 0 X 10*3/uL (0.04-0.35); Eosinophils % (A) 0 %; HCT 33.2 % (39.6-50.0); HGB 10.5 g/dL (13.0-17.0); Lymphocytes # (A) 1.11 X 10*3/uL (0.90-5.00); Lymphocytes % (A) 9.4 %; MCH 27.6 pg (27.0-32.0); MCHC 31.6 g/dL (32.0-37.0); MCV 87.1 FL (80.0-97.0); Mean Platelet Volume 10.7 FL (9.5-12.2); Monocytes # (A) 0.88 X 10*3/uL (0.20-1.00); Monocytes % (A) 7.4 %; NRBC Per 100 WBC 0 X 10*3/uL (0.00-0.01); Neutrophils # (A) 9.52 X 10*3/uL (1.80-7.70); Neutrophils % (A) 80.5 %; Platelet Count 264 X 10*3/uL (140-440); RBC 3.81 X 10*6/uL (4.40-5.60); RDW 18.2 % (11.5-14.5); WBC 11.82 X 10*3/uL (4.50-10.00)
[2024-05-25 10:53] LABS: ALT 28 U/L (10-49); AST 35 U/L (14-35); Albumin 3.7 g/dL (3.8-4.9); Albumin/Globulin Ratio 1.76 Ratio (1.60-3.17); Alkaline Phosphatase 80 U/L (41-126); BUN/Creat Ratio 30.44 Ratio (12.00-20.00); Blood Urea Nitrogen 27.4 mg/dL (9.0-27.0); Calcium 8.6 mg/dL (8.7-10.3); Carbon Dioxide 25.6 mmol/L (21.6-31.8); Chloride 103 mmol/L (96-109); Globulin 2.1 g/dL (1.6-3.3); Glucose 115 mg/dL (70-110); Potassium 4.7 mmol/L (3.5-5.5); Sodium 139 mmol/L (135-145); Total Bilirubin <0.2 mg/dL (0.3-1.2); Total Protein 5.8 g/dL (6.2-8.2)
--- NOTE | 2024-05-25 12:38 | P.PN ---
Subjective Progress Note Date: 05/25/24 Chief Complaint: Recurrent MRSA infection HISTORY OF PRESENT ILLNESS: This is a 73-year-old male one of my patient with a previous medical history significant for hypertension and hypertensive cardiovascular disease, hyperlipidemia, obesity with obstructive sleep apnea, history of chronic alcohol use and dependence with the peripheral neuropathy, significant spondylosis of the lumbar spine with spinal stenosis and significant chronic low back pain, patient was recently hospitalized at [facility] about a month ago for MRSA cellulitis of the left lower extremity along with multiple wounds secondary to him being picking on his skin along with significant rash that he was seen dermatology for and he was diagnosed with allergic dermatitis and he was suppos ed to be on steroid cream as well as oral medications patient done well however patient also was diagnosed with COVID-19 in the last hospital admission he was treated with IV steroid and he was sent back to his assisted living at [facility], patient was supposed to come to the office for follow-up, he never made the post hospital follow-up, however the patient's visiting nurse called the office yesterday stated the patient is complaining of significant rash all over his body and is continues to pick at his skin, and he has multiple scabbed wounds all over his body 1 in the right shoulder, and multiple ones in the abdomen and both lower extremities, at that time we had contacted the pharmacy and called a steroid along with hydroxyzine 10 mg orally twice every day as well as a Medrol Dosepak, however the patient never picked up the prescription he ended up showing up to the ER for evaluation, I received a phone call from the emergency room physician yesterday stating the patient has significant rash all over his body associated with increased wound on the right shoulder as well as abdomen as well as lower extremity with different stages of healing because of the prior history of MRSA infection he was started on IV antibiotic in the form of vancomycin, I started the patient on Solu-Medrol 40 mg IV push every 8 hours, will place the patient on Benadryl 25 mg IV push every 6 hours, montelukast 10 mg once every day, and also placed the patient on famotidine 20 mg once every d ay, we will apply triamcinolone cream 0.1% to be applied twice every day to the affected area, infectious disease consultation was obtained I believe the patient will need to follow-up with dermatology for further evaluation recommendation. 05/22: Patient is sitting up in a chair in no apparent distress, he continues to have significant scratching all over his body, he continues to have a wound to the right shoulder, he has been getting IV antibiotic in the form of vancomycin, infectious disease following, he will be seen in consultation by wound care for wound care management, we will continue to follow-up with the patient very closely continue famotidine, continue Solu-Medrol, continue montelukast, continue with Benadryl, patient will need to follow-up with his volunteer manager Dr. Knapp as an outpatient. 05/23: Patient is sitting up in a chair he continues to be scratching all over his body, he continues to have issues with significant skin eruptions especially on his back the chest torso both lower extremities, continue Solu-Medrol 40 mg IV push every 8 hours, continue famotidine 20 mg once every day, continue Benadryl [id number], continue triamcinolone cream, we will follow-up with the patient very closely. Patient was seen by wound care team and will continue current treatment plan. 05/24: Patient is laying down in bed he continues to have significant itching in upper torso abdomen lower extremities better today, his Solu-Medrol was increased to 60 mg a push every 6 hours, discontinue losartan as it might be the culprit because of the reaction I will discontinue Lexapro as well, continue patient on mirtazapine 30 mg orally once every day, monitor the patient very closely, I will discontinue Benadryl start the patient on hydroxyzine 10 mg orally 3 times every day, continue famotidine 20 mg once every day, continue other treatment plan, monitor the patient very closely. Continue to apply triamcinolone cream twice every day, follow-up with dermatology as an outpatient. 05/25: Patient is sitting up in a chair feeling a bit better, he continues to have significant scabs in upper and lower extremities torso and abdomen, better than yesterday, I made sure the patient got his triamcinolone myself today and he is going to continue to take it twice every day, continue hydroxyzine 10 mg orally 3 times every day continue Solu-Medrol 60 mg IV push every 6 hours, continue montelukast 10 mg once every day continue famotidine 20 mg once every day continue to monitor the patient very closely, patient has an appointment to go see his volunteer manager next week, will continue current treatment plan, discontinued losartan yesterday increase amlodipine discontinue Namenda, discontinue mirtazapine, try to minimize the medication that he is taking to see if the patient is having allergic reaction to certain medication that he was started on. REVIEW OF SYSTEMS: Constitutional: No documented fever, no chills, no night sweats. No weight change. positive for weakness , reports fatigue reports lethargy. Positive for daytime sleepiness. HEENT: No headache. No blurred vision or double vision, no loss of vision. No loss of Hearing, no ringing in the ears, no dizziness. No nasal drainage or congestion. No epistaxis. No sore throat. Lungs: No shortness of breath, no cough, no sputum production. No wheezing. Reports dyspnea with activity. Cardiovascular: No chest pain, positive for lower extremity edema. No palpitations. No paroxysmal nocturnal dyspnea. No orthopnea. No lightheadedness or dizziness. No syncopal episodes.Positive for nocturia. Abdominal: No abdominal pain. No nausea, vomiting. No diarrhea. No constipation. No bloody or tarry stools . No loss of appetite. Genitourinary: No dysuria, increased frequency, urgency. No urinary retention. Musculoskeletal: positive for neck pain, positive for chronic low back pain, positive for significant pain in both lower extremities with significant neuropathy, positive for gait dysfunction, positive for lower extremity weakness. Integumentary: Positive for multiple skin lesions at different stages of healing associated with wound to the right shoulder, abdomen, left lower extremity, with some scab on top of it, with significant erythema to the right side of the torso, appears to be red with significant scratch boucher all over his body. Neurologic: No aphasia. No facial droop. Memory loss. No head injury. No headache, positive for paresthesia in both lower extremities Psychiatric: Patient does appear to be somewhat depressed, appears to be a bit anxious, no suicidal thoughts or ideation. Endocrine: No abnormal blood sugars, increased weight. PHYSICAL EXAMINATION: General: This is a 73-year-old male who is resting in bed and does not appear to be in acute distress. HEENT: Head is atraumatic, normocephalic, pupils were equal round reactive to l ight and recommendation, extraocular muscle movement were intact, sclera nonicteric, conjunctivae were pale, mucous membranes of the mouth are somewhat dry. Neck: Supple, no JVP, normal carotid upstroke bilaterally, no lymphadenopathy. Chest: Decreased breath sounds at the bases, few rhonchi, no expiratory wheezes, no chest wall tenderness, no intercostal retractions. Heart: First heart sound is normal, second heart sound is normal there is systolic ejection murmur 2/6 located in the left sternal border. Abdomen: Soft, nontender, nondistended, positive bowel sounds. Extremities: There is chronic significant venous stasis of right lower extremity with a chronic skin changes dorsalis pedis +1 bilaterally, right lower extremity with open wound and fat exposure with cellulitis Neurologic examination: Patient is awake alert and oriented X 3, cranial nerves II-12 appear grossly intact, muscle power were 4 out of 5 in upper extremities and 3out of 5 in bilateral lower extremities, deep tendon reflexes were depressed bilaterally. Skin examination: Significant eruption with maculopapular rash with significant scabs all over his abdomen torso upper and lower extremities as well as a wound to the right shoulder that measures about 2.5 x 2.5 x 0.1 cm and other scabs to the lower extremities and abdomen, with erythema to the right torso. ASSESSMENT AND PLAN: 1. Significant eruption likely related to allergic dermatitis with MRSA infection due to recurrent inoculation and scratching. Continue patient on current vancomycin dose, patient eventually may be switched to oral Bactrim double strength twice every day, monitor the patient very closely, continue Solu-Medrol 60 mg IV push every 6 hours, continue famotidine 20 mg once every day, continue hydroxyzine 10 mg orally 3 times every day, continue triamcinolone cream 0.1% to be applied twice every day, follow-up with the patient very closely continue moisturizer, avoid scratching as much as possible. Follow-up with dermatology next week on Monday 2. Right lower extremity stasis dermatitis with multiple scabbed lesions. Continue treatment as in the previous Continue vancomycin with pharmacy dosing. 3. Hypertension and hypertensive cardiovascular disease. Continue patient on amlodipine 10 mg once every day, monitor the patient blood pressure very closely.. 4. Hyperlipidemia. Continue atorvastatin 40 mg daily. Keep LDL 55-70. 5. Vascular dementia. Discontinue Namenda. 6. History of chronic alcohol use and dependence. patient has quit 7. 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 Patient on oxycodone 10/325 mg 1 tablet every 4 hours as needed, monitor the patient very closely. 8. Bilateral lower extremity neuropathy continue patient on Lyrica 200 mg o rally twice every day. 9. Depression. Feels better, discontinue mirtazapine, and the patient has been off Lexapro as well. 10. DVT prophylaxis. Continue Lovenox 40 mg subcutaneously every 24 hours. 11. GI prophylaxis. Continue Protonix 40 mg orally once every day and famotidine 20 mg orally once every day. 12. Increase activity. 13. Physical therapy evaluation 14. Social work consultation for discharge planning. Objective - Vital Signs Vital signs: Vital Signs Temp 97.8 F 05/25/24 08:10 Pulse 55 L 05/25/24 08:10 Resp 18 05/25/24 08:10 BP 151/68 05/25/24 08:10 Pulse Ox 98 05/25/24 08:10 FiO2 Intake & Output 05/24/24 05/25/24 05/25/24 18:59 06:59 18:59 Intake Total 500 Balance 500 Intake: Intake, IV Titration 500 Amount Vancomycin 2,250 mg In 500 Sodium Chloride 0.9% 500 ml 500 ml @ 167 mls/hr IVPB Q24H [facility] Rx#: [id number] Other: # Voids 3 - Labs CBC & Chem 7: 05/25/24 05:47 05/25/24 05:47 Labs: Abnormal Lab Results - Last 24 Hours (Table) 05/25/24 05/25/24 Range/Units 05:47 05:47 WBC 11.82 H (4.50-10.00) X 10*3/uL RBC 3.81 L (4.40-5.60) X 10*6/uL Hgb 10.5 L (13.0-17.0) g/dL Hct 33.2 L (39.6-50.0) % MCHC 31.6 L (32.0-37.0) g/dL RDW 18.2 H (11.5-14.5) % Immature Gran # 0.29 H (0.00-0.04) X 10*3/uL Neutrophils # 9.52 H (1.80-7.70) X 10*3/uL Eosinophils # 0 L (0.04-0.35) X 10*3/uL BUN 27.4 H (9.0-27.0) mg/dL BUN/Creatinine Ratio 30.44 H (12.00-20.00) Ratio Glucose 115 H (70-110) mg/dL Calcium 8.6 L (8.7-10.3) mg/dL Total Bilirubin <0.2 L (0.3-1.2) mg/dL Total Protein 5.8 L (6.2-8.2) g/dL Albumin 3.7 L (3.8-4.9) g/dL
--- NOTE | 2024-05-25 14:40 | P.PN ---
Subjective Progress Note Date: 05/25/24 Principal diagnosis: Reason for follow-up is right leg wound cellulitis and rash Patient is a 73-year-old male with multiple comorbidities including hypertension osteoarthritis recent admission to the hospital with COVID-19 and the patient also have a right lower extremity wound with second cellulitis culture positive for MRSA, patient now presenting to the hospital with generalized itchy rash and apparently patient has been diagnosed with allergic dermatitis in the outpatient setting by accounting manager controller On today's evaluation that is 05/25/2024, the patient continues to be afebrile, the patient is on room air and breathing comfortably, the Pt denies having any chest pain or cough, the patient denies having any abdominal pain no vomiting or any diarrhea, itching slightly decreased in intensity. Patient white count is 11.82, creatinine 0.9 Objective - Vital Signs Vital signs: Vital Signs Temp 97.8 F 05/25/24 08:10 Pulse 55 L 05/25/24 08:10 Resp 18 05/25/24 08:10 BP 151/68 05/25/24 08:10 Pulse Ox 98 05/25/24 08:10 FiO2 Intake & Output 05/24/24 05/25/24 05/25/24 18:59 06:59 18:59 Intake Total 500 Balance 500 Intake: Intake, IV Titration 500 Amount Vancomycin 2,250 mg In 500 Sodium Chloride 0.9% 500 ml 500 ml @ 167 mls/hr IVPB Q24H [facility] Rx#: [id number] Other: # Voids 3 - Exam GENERAL DESCRIPTION: An elderly male up in the chair in no distress RESPIRATORY SYSTEM: Unlabored breathing , decreased breath sounds at bases HEART: S1 S2 regular rate and rhythm , ABDOMEN: Soft , no tenderness Skin examination did shows diffuse rash especially to the trunk a rash to the upper lower extremity has decreased in intensity - Labs CBC & Chem 7: 05/25/24 05:47 05/25/24 05:47 Labs: Abnormal Lab Results - Last 24 Hours (Table) 05/25/24 05/25/24 Range/Units 05:47 05:47 WBC 11.82 H (4.50-10.00) X 10*3/uL RBC 3.81 L (4.40-5.60) X 10*6/uL Hgb 10.5 L (13.0-17.0) g/dL Hct 33.2 L (39.6-50.0) % MCHC 31.6 L (32.0-37.0) g/dL RDW 18.2 H (11.5-14.5) % Immature Gran # 0.29 H (0.00-0.04) X 10*3/uL Neutrophils # 9.52 H (1.80-7.70) X 10*3/uL Eosinophils # 0 L (0.04-0.35) X 10*3/uL BUN 27.4 H (9.0-27.0) mg/dL BUN/Creatinine Ratio 30.44 H (12.00-20.00) Ratio Glucose 115 H (70-110) mg/dL Calcium 8.6 L (8.7-10.3) mg/dL Total Bilirubin <0.2 L (0.3-1.2) mg/dL Total Protein 5.8 L (6.2-8.2) g/dL Albumin 3.7 L (3.8-4.9) g/dL Microbiology - Last 24 Hours (Table) 05/21/24 05:31 Anaerobic Culture - Final Leg - Left Assessment and Plan (1) Leg wound, right Current Visit: Yes Status: Acute Code(s): S81.801A - UNSPECIFIED OPEN WOUND, RIGHT LOWER LEG, INITIAL ENCOUNTER SNOMED Code(s): 13304739343895659 (2) Drug rash Current Visit: Yes Status: Acute Code(s): L27.0 - GEN SKIN ERUPTION DUE TO DRUGS AND MEDS TAKEN INTERNALLY SNOMED Code(s): 55458332 (3) Cellulitis of right leg Current Visit: No Status: Acute Code(s): L03.115 - CELLULITIS OF RIGHT LOWER LIMB SNOMED Code(s): 06619282553964878 Plan: 1-patient wound to the right lower extremity previous culture positive for MRSA seems to be healing, local culture currently growing MRSA and the patient is covered with the vancomycin pharmacy to dose will watch his kidney function leidy sely. 2patient with diffuse rash likely drug related his medication and possible losartan which has been discontinued, patient to continue with Solu-Medrol to 60 every 6 along with calamine lotion to the skin and monitor clinical course closely Dictation was produced using [employer] software. please excuse any grammatical, word or spelling errors. Time with Patient: Less than 30
[2024-05-26] MEDS: VANCOMYCIN TROUGH DUE 1 EACH MISC MISCELLANE ONE (06:29)
[2024-05-26 07:24] LABS: African American GFR (CKD) >90 (>60 ml/min/1.73 sqM); Non-African American GFR(CKD) 89 (>60 ml/min/1.73 sqM)
--- NOTE | 2024-05-26 11:33 | P.PN ---
Subjective Progress Note Date: 05/26/24 Chief Complaint: Recurrent MRSA infection HISTORY OF PRESENT ILLNESS: This is a 73-year-old male one of my patient with a previous medical history significant for hypertension and hypertensive cardiovascular disease, hyperlipidemia, obesity with obstructive sleep apnea, history of chronic alcohol use and dependence with the peripheral neuropathy, significant spondylosis of the lumbar spine with spinal stenosis and significant chronic low back pain, patient was recently hospitalized at [facility] about a month ago for MRSA cellulitis of the left lower extremity along with multiple wounds secondary to him being picking on his skin along with significant rash that he was seen dermatology for and he was diagnosed with allergic dermatitis and he was suppos ed to be on steroid cream as well as oral medications patient done well however patient also was diagnosed with COVID-19 in the last hospital admission he was treated with IV steroid and he was sent back to his assisted living at [facility], patient was supposed to come to the office for follow-up, he never made the post hospital follow-up, however the patient's visiting nurse called the office yesterday stated the patient is complaining of significant rash all over his body and is continues to pick at his skin, and he has multiple scabbed wounds all over his body 1 in the right shoulder, and multiple ones in the abdomen and both lower extremities, at that time we had contacted the pharmacy and called a steroid along with hydroxyzine 10 mg orally twice every day as well as a Medrol Dosepak, however the patient never picked up the prescription he ended up showing up to the ER for evaluation, I received a phone call from the emergency room physician yesterday stating the patient has significant rash all over his body associated with increased wound on the right shoulder as well as abdomen as well as lower extremity with different stages of healing because of the prior history of MRSA infection he was started on IV antibiotic in the form of vancomycin, I started the patient on Solu-Medrol 40 mg IV push every 8 hours, will place the patient on Benadryl 25 mg IV push every 6 hours, montelukast 10 mg once every day, and also placed the patient on famotidine 20 mg once every d ay, we will apply triamcinolone cream 0.1% to be applied twice every day to the affected area, infectious disease consultation was obtained I believe the patient will need to follow-up with dermatology for further evaluation recommendation. 05/22: Patient is sitting up in a chair in no apparent distress, he continues to have significant scratching all over his body, he continues to have a wound to the right shoulder, he has been getting IV antibiotic in the form of vancomycin, infectious disease following, he will be seen in consultation by wound care for wound care management, we will continue to follow-up with the patient very closely continue famotidine, continue Solu-Medrol, continue montelukast, continue with Benadryl, patient will need to follow-up with his health information director Dr. Knapp as an outpatient. 05/23: Patient is sitting up in a chair he continues to be scratching all over his body, he continues to have issues with significant skin eruptions especially on his back the chest torso both lower extremities, continue Solu-Medrol 40 mg IV push every 8 hours, continue famotidine 20 mg once every day, continue Benadryl [id number], continue triamcinolone cream, we will follow-up with the patient very closely. Patient was seen by wound care team and will continue current treatment plan. 05/24: Patient is laying down in bed he continues to have significant itching in upper torso abdomen lower extremities better today, his Solu-Medrol was increased to 60 mg a push every 6 hours, discontinue losartan as it might be the culprit because of the reaction I will discontinue Lexapro as well, continue patient on mirtazapine 30 mg orally once every day, monitor the patient very closely, I will discontinue Benadryl start the patient on hydroxyzine 10 mg orally 3 times every day, continue famotidine 20 mg once every day, continue other treatment plan, monitor the patient very closely. Continue to apply triamcinolone cream twice every day, follow-up with dermatology as an outpatient. 05/25: Patient is sitting up in a chair feeling a bit better, he continues to have significant scabs in upper and lower extremities torso and abdomen, better than yesterday, I made sure the patient got his triamcinolone myself today and he is going to continue to take it twice every day, continue hydroxyzine 10 mg orally 3 times every day continue Solu-Medrol 60 mg IV push every 6 hours, continue montelukast 10 mg once every day continue famotidine 20 mg once every day continue to monitor the patient very closely, patient has an appointment to go see his health information director next week, will continue current treatment plan, discontinued losartan yesterday increase amlodipine discontinue Namenda, discontinue mirtazapine, try to minimize the medication that he is taking to see if the patient is having allergic reaction to certain medication that he was started on. 05/26: Patient sitting up in the chair is feeling a bit better today, he continues to have significant rash on the torso and abdomen but is better than yesterday, I recommended for the patient to continue seeing the triamcinolone cream to be applied twice every day, I will continue Solu-Medrol 60 mg IV push every 6 hours, continue Singulair, continue famotidine, give the patient off losartan Namenda and mirtazapine patient has an appointment with dermatology next Monday at 10:45 in the morning, patient did have a biopsy to the skin before, rule out excoriation normal disorder or picking disease disorder that this patient may have beside allergic dermatitis and if that is the case patient need to be followed by psychiatry for behavioral therapy and cognitive behavioral therapy along with restarting back selective serotonin reuptake inhibitor such as fluoxetine versus escitalopram. Meanwhile as the patient progresses we will order a battery of laboratory evaluation including immunoglobulin IgG, IgM, IgE, IgD, and IgA, check thyroid function test with reflex to free T4, check hemoglobin A1c, check iron with ferritin level, check serum protein electrophoresis, check kappa and lambda light chain in the serum, check sed rate, and check vitamin D level, we will follow-up with the patient very closely. REVIEW OF SYSTEMS: Constitutional: No documented fever, no chills, no night sweats. No weight jose antonio nge. positive for weakness , reports fatigue reports lethargy. Positive for daytime sleepiness. HEENT: No headache. No blurred vision or double vision, no loss of vision. No loss of Hearing, no ringing in the ears, no dizziness. No nasal drainage or congestion. No epistaxis. No sore throat. Lungs: No shortness of breath, no cough, no sputum production. No wheezing. Reports dyspnea with activity. Cardiovascular: No chest pain, positive for lower extremity edema. No palpitations. No paroxysmal nocturnal dyspnea. No orthopnea. No lightheadedness or dizziness. No syncopal episodes.Positive for nocturia. Abdominal: No abdominal pain. No nausea, vomiting. No diarrhea. No cons tipation. No bloody or tarry stools . No loss of appetite. Genitourinary: No dysuria, increased frequency, urgency. No urinary retention. Musculoskeletal: positive for neck pain, positive for chronic low back pain, positive for significant pain in both lower extremities with significant neuropathy, positive for gait dysfunction, positive for lower extremity weakness. Integumentary: Positive for multiple skin lesions at different stages of healing associated with wound to the right shoulder, abdomen, left lower extremity, with some scab on top of it, with significant erythema to the right side of the torso, appears to be red with significant scratch boucher all over his body. Neurologic: No aphasia. No facial droop. Memory loss. No head injury. No headache, positive for paresthesia in both lower extremities Psychiatric: Patient does appear to be somewhat depressed, appears to be a bit anxious, no suicidal thoughts or ideation. Endocrine: No abnormal blood sugars, increased weight. PHYSICAL EXAMINATION: General: This is a 73-year-old male who is resting in bed and does not appear to be in acute distress. HEENT: Head is atraumatic, normocephalic, pupils were equal round reactive to light and recommendation, extraocular muscle movement were intact, sclera nonicteric, conjunctivae were pale, mucous membranes of the mouth are somewhat dry. Neck: Supple, no JVP, normal carotid upstroke bilaterally, no lymphadenopathy. Chest: Decreased breath sounds at the bases, few rhonchi, no expiratory wheezes, no chest wall tenderness, no intercostal retractions. Heart: First heart sound is normal, second heart sound is normal there is systolic ejection murmur 2/6 located in the left sternal border. Abdomen: Soft, nontender, nondistended, positive bowel sounds. Extremities: There is chronic significant venous stasis of right lower extremity with a chronic skin changes dorsalis pedis +1 bilaterally, right lower extremity with open wound and fat exposure with cellulitis Neurologic examination: Patient is awake alert and oriented X 3, cranial nerves II-12 appear grossly intact, muscle power were 4 out of 5 in upper extremities and 3out of 5 in bilateral lower extremities, deep tendon reflexes were depressed bilaterally. Skin examination: Significant eruption with maculopapular rash with significant scabs all over his abdomen torso upper and lower extremities as well as a wound to the right shoulder that measures about 2.5 x 2.5 x 0.1 cm and other scabs to the lower extremities and abdomen, with erythema to the right torso. ASSESSMENT AND PLAN: 1. Significant eruption likely related to allergic dermatitis with MRSA infection due to recurrent inoculation and scratching. Continue patient on current vancomycin to 225 mg IV piggyback every 6 hours, patient eventually may be switched to oral Bactrim double strength twice every day, monitor the patient very closely, continue Solu-Medrol 60 mg IV push every 6 hours, continue famotidine 20 mg once every day, continue hydroxyzine 10 mg orally 3 times every day, continue triamcinolone cream 0.1% to be applied twice every day, follow-up with the patient very closely continue moisturizer, avoid scratching as much as possible. Follow-up with dermatology next week on Monday rule out excoriation disorder or pick disease disorder versus allergic dermatitis, and if that is the case patient may benefit from Dupixent injection meanwhile we will go ahead and check a battery of laboratory evaluation to rule out any underlying conditions 2. Right lower extremity stasis dermatitis with multiple venous ulcers that is positive for MRSA continue with vancomycin 2225 mg IV piggyback every 16 hours, continue local care. 3. Hypertension and hypertensive cardiovascular disease. Continue patient on a mlodipine 10 mg once every day, add metoprolol ER 25 mg orally once every day, monitor the patient blood pressure very closely. 4. Hyperlipidemia. Continue atorvastatin 40 mg daily. Keep LDL 55-70. 5. Vascular dementia. appears to be better, on the last Mini-Mental status examination patient scored about 28 out of 30. 6. History of chronic alcohol use and dependence. patient has quit 7. 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 Patient on oxycodone 10/325 mg 1 tablet every 4 hours as needed, monitor the patient very closely, Continue Lyrica 200 mg orally twice every day, discontinue Tylenol. 8. Bilateral lower extremity neuropathy continue patient on Lyrica 200 mg orally twice every day. 9. Depression. Feels better, discontinue mirtazapine, and the patient has been off Lexapro as well. Eventually patient may need to be seen by psychiatry for further evaluation of possible excoriation will disorder that is triggered by posttraumatic stress disorder depression or anxiety. 10. DVT prophylaxis. Continue Lovenox 40 mg subcutaneously every 24 hours. 11. GI prophylaxis. Continue Protonix 40 mg orally once every day and fa motidine 20 mg orally once every day. 12. Increase activity. 13. Physical therapy evaluation 14. Social work consultation for discharge planning the plan is to go back to [facility]. Objective - Vital Signs Vital signs: Vital Signs Temp 97.4 F L 05/26/24 07:51 Pulse 72 05/26/24 07:51 Resp 20 05/26/24 07:51 BP 158/69 05/26/24 07:51 Pulse Ox 97 05/26/24 07:51 FiO2 Intake & Output 05/25/24 05/26/24 05/26/24 18:59 06:59 18:59 Other: # Voids 2 3 - Labs CBC & Chem 7: 05/25/24 05:47 05/26/24 06:23 Labs: Microbiology - Last 24 Hours (Table) 05/21/24 05:31 Anaerobic Culture - Final Leg - Left
[2024-05-26] MEDS: METOPROLOL SUCCINATE (ER) 25 MG TAB.ER.24H PO SCH (11:47)
--- NOTE | 2024-05-26 14:45 | P.PN ---
Subjective Progress Note Date: 05/26/24 Principal diagnosis: Reason for follow-up is right leg wound cellulitis and rash Patient is a 73-year-old male with multiple comorbidities including hypertension osteoarthritis recent admission to the hospital with COVID-19 and the patient also have a right lower extremity wound with second cellulitis culture positive for MRSA, patient now presenting to the hospital with generalized itchy rash and apparently patient has been diagnosed with allergic dermatitis in the outpatient setting by emt b On today's evaluation that is 05/26/2024, Patient is afebrile patient is currently on room air and denies having any shortness of breath, the patient denies any chest pain or cough, the patient denies any nausea vomiting did not have any abdominal pain and no diarrhea, overall itching and rash has decreased in intensity slightly. Patient did have a creatinine 0.8- vancomycin trough 13.9 Objective - Vital Signs Vital signs: Vital Signs Temp 97.4 F L 05/26/24 07:51 Pulse 72 05/26/24 07:51 Resp 20 05/26/24 07:51 BP 158/69 05/26/24 07:51 Pulse Ox 97 05/26/24 07:51 FiO2 Intake & Output 05/25/24 05/26/24 05/26/24 18:59 06:59 18:59 Other: # Voids 2 3 - Exam GENERAL DESCRIPTION: An elderly male up in the chair in no distress RESPIRATORY SYSTEM: Unlabored breathing , decreased breath sounds at bases HEART: S1 S2 regular rate and rhythm , ABDOMEN: Soft , no tenderness Skin examination did shows diffuse rash especially to the trunk a rash to the upper lower extremity has decreased in intensity - Labs CBC & Chem 7: 05/25/24 05:47 05/26/24 06:23 Labs: Microbiology - Last 24 Hours (Table) 05/21/24 05:31 Anaerobic Culture - Final Leg - Left Assessment and Plan (1) Leg wound, right Current Visit: Yes Status: Acute Code(s): S81.801A - UNSPECIFIED OPEN WOUND, RIGHT LOWER LEG, INITIAL ENCOUNTER SNOMED Code(s): 98239988106098339 (2) Drug rash Current Visit: Yes Status: Acute Code(s): L27.0 - GEN SKIN ERUPTION DUE TO DRUGS AND MEDS TAKEN INTERNALLY SNOMED Code(s): 79861135 (3) Cellulitis of right leg Current Visit: No Status: Acute Code(s): L03.115 - CELLULITIS OF RIGHT LOWER LIMB SNOMED Code(s): 95219796768278793 Plan: 1-patient wound to the right lower extremity previous culture positive for MRSA seems to be healing, local culture currently growing MRSA and the patient is covered with the vancomycin pharmacy to dose will watch his kidney function closely. Will apply Aquacel dressing to the right lower extremity wound changed q. 48-hour 2patient with diffuse rash likely drug related his medication and possible losartan which has been discontinued, 3-patient mention slight improvement and will continue with Solu-Medrol to 60 every 6 along with calamine lotion to the skin and monitor clinical course closely Dictation was produced using [employer] dictation software. please excuse any grammatical, word or spelling errors. Time with Patient: Less than 30
[2024-05-26] MEDS: VANCOMYCIN 2,250 MG in SODIUM CHLORIDE 0.9% 500 ML 500 ML IVPB SCH (22:38)
[2024-05-26 23:04] LABS: % Iron Saturation 16.97 (15.00-50.00)
[2024-05-26 23:15] LABS: Protein, Total 5.7 g/dL (6.2-8.2)
[2024-05-27 09:32] LABS: ALT 36 U/L (10-49); AST 26 U/L (14-35); Albumin 3.3 g/dL (3.8-4.9); Albumin/Globulin Ratio 1.94 Ratio (1.60-3.17); Alkaline Phosphatase 73 U/L (41-126); BUN/Creat Ratio 33.25 Ratio (12.00-20.00); Blood Urea Nitrogen 26.6 mg/dL (9.0-27.0); Calcium 8.2 mg/dL (8.7-10.3); Carbon Dioxide 27.6 mmol/L (21.6-31.8); Chloride 103 mmol/L (96-109); Globulin 1.7 g/dL (1.6-3.3); Glucose 198 mg/dL (70-110); Potassium 4.1 mmol/L (3.5-5.5); Sodium 139 mmol/L (135-145); Total Bilirubin <0.2 mg/dL (0.3-1.2)
[2024-05-27 10:58] LABS: Free Kappa Lt Chain Qnt, Serum 1.22 mg/dL (0.33-1.94); Free Lambda Lt Chain Qnt, Seru 0.65 mg/dL (0.57-2.63)
--- NOTE | 2024-05-27 12:48 | P.PN ---
Subjective Progress Note Date: 05/27/24 Principal diagnosis: Reason for follow-up is right leg wound cellulitis and rash Patient is a 73-year-old male with multiple comorbidities including hypertension osteoarthritis recent admission to the hospital with COVID-19 and the patient also have a right lower extremity wound with second cellulitis culture positive for MRSA, patient now presenting to the hospital with generalized itchy rash and apparently patient has been diagnosed with allergic dermatitis in the outpatient setting by fruit grader On today's evaluation that is 05/27/2024, patient has been afebrile, patient is breathing comfortably and is currently on room air, patient denies having any significant cough no chest pain shortness of breath, patient denies nausea vomiting or diarrhea and no abdominal pain, overall itching and rash has slightly decreased in intensity. Patient did have a creatinine 0.8 no CBC was done today Objective - Vital Signs Vital signs: Vital Signs Temp 97.2 F L 05/27/24 08:35 Pulse 65 05/27/24 08:35 Resp 17 05/27/24 08:35 BP 156/56 05/27/24 08:35 Pulse Ox 99 05/27/24 08:35 FiO2 Intake & Output 05/26/24 05/27/24 05/27/24 18:59 06:59 18:59 Other: # Voids 2 3 - Exam GENERAL DESCRIPTION: An elderly male up in the chair in no distress RESPIRATORY SYSTEM: Unlabored breathing , decreased breath sounds at bases HEART: S1 S2 regular rate and rhythm , ABDOMEN: Soft , no tenderness Skin examination did shows diffuse rash especially to the trunk a rash to the upper lower extremity has decreased in intensity - Labs CBC & Chem 7: 05/25/24 05:47 05/27/24 05:40 Labs: Abnormal Lab Results - Last 24 Hours (Table) 05/26/24 05/26/24 05/26/24 Range/Units 12:59 12:59 12:59 BUN/Creatinine Ratio (12.00-20.00) Ratio Glucose (70-110) mg/dL Hemoglobin A1c 6.4 H (<=6.0) % Calcium (8.7-10.3) mg/dL Iron 47 L (65-175) UG/DL Transferrin 198.0 L (204.0-354.0) mg/dL Total Bilirubin (0.3-1.2) mg/dL Total Protein (6.2-8.2) g/dL Total Protein (PEP) (6.2-8.2) g/dL Albumin (3.8-4.9) g/dL Vitamin D 25-Hydroxy (30.0-100.0) ng/mL TSH 0.279 L (0.350-5.500) UIU/ML IgE 2022.00 H (0.00-114.00) IU/mL 05/26/24 05/27/24 Range/Units 12:59 05:40 BUN/Creatinine Ratio 33.25 H (12.00-20.00) Ratio Glucose 198 H (70-110) mg/dL Hemoglobin A1c (<=6.0) % Calcium 8.2 L (8.7-10.3) mg/dL Iron (65-175) UG/DL Transferrin (204.0-354.0) mg/dL Total Bilirubin <0.2 L (0.3-1.2) mg/dL Total Protein 5.0 L (6.2-8.2) g/dL Total Protein (PEP) 5.7 L (6.2-8.2) g/dL Albumin 3.3 L (3.8-4.9) g/dL Vitamin D 25-Hydroxy 14.7 L (30.0-100.0) ng/mL TSH (0.350-5.500) UIU/ML IgE (0.00-114.00) IU/mL Assessment and Plan (1) Leg wound, right Current Visit: Yes Status: Acute Code(s): S81.801A - UNSPECIFIED OPEN WOUND, RIGHT LOWER LEG, INITIAL ENCOUNTER SNOMED Code(s): 48156626351813177 (2) Drug rash Current Visit: Yes Status: Acute Code(s): L27.0 - GEN SKIN ERUPTION DUE TO DRUGS AND MEDS TAKEN INTERNALLY SNOMED Code(s): 65797435 (3) Cellulitis of right leg Current Visit: No Status: Acute Code(s): L03.115 - CELLULITIS OF RIGHT LOWER LIMB SNOMED Code(s): 34866221715141639 Plan: 1-patient wound to the right lower extremity previous culture positive for MRSA seems to be healing, local culture currently growing MRSA and the patient is covered with the vancomycin pharmacy to dose will watch his kidney function closely. Will apply Aquacel dressing to the right lower extremity wound changed q. 48-hour 2patient with diffuse rash likely drug related his medication and possible losartan which has been discontinued, 3-patient is slowly clinically improving, continue with Solu-Medrol along with calamine lotion to the skin and monitor clinical course closely Dictation was produced using [employer] dictation software. please excuse any grammatical, word or spelling errors. Time with Patient: Less than 30
[2024-05-27 12:59] LABS: Basophils # (A) 0.01 X 10*3/uL (0.00-0.10); Basophils % (A) 0.1 %; Eosinophils # (A) 0 X 10*3/uL (0.04-0.35); Eosinophils % (A) 0 %; HCT 31.7 % (39.6-50.0); HGB 10.4 g/dL (13.0-17.0); Lymphocytes # (A) 0.91 X 10*3/uL (0.90-5.00); Lymphocytes % (A) 9.5 %; MCH 28.2 pg (27.0-32.0); MCHC 32.8 g/dL (32.0-37.0); MCV 85.9 FL (80.0-97.0); Mean Platelet Volume 10.1 FL (9.5-12.2); Monocytes % (A) 6.3 %; NRBC Per 100 WBC 0 X 10*3/uL (0.00-0.01); Neutrophils # (A) 7.82 X 10*3/uL (1.80-7.70); Neutrophils % (A) 81.9 %; Platelet Count 269 X 10*3/uL (140-440); RBC 3.69 X 10*6/uL (4.40-5.60); RDW 18.2 % (11.5-14.5); WBC 9.55 X 10*3/uL (4.50-10.00)
[2024-05-27 14:34] VITALS: BMI 43.4
[2024-05-28] MEDS ORDERED: VANCOMYCIN TROUGH DUE 1 EACH MISC MISCELLANE ONE (05:00)
[2024-05-28] MEDS: METOPROLOL SUCCINATE (ER) 50 MG TAB.ER.24H PO SCH (08:16)
[2024-05-28 11:05] LABS: African American GFR (CKD) >90 (>60 ml/min/1.73 sqM); Non-African American GFR(CKD) 89 (>60 ml/min/1.73 sqM)
[2024-05-28] MEDS: VANCOMYCIN TROUGH DUE 1 EACH MISC MISCELLANE ONE (11:14)
[2024-05-28] MEDS: VANCOMYCIN 2,250 MG in SODIUM CHLORIDE 0.9% 500 ML 500 ML IVPB SCH (11:15)
--- NOTE | 2024-05-28 12:44 | P.PN ---
Subjective Progress Note Date: 05/27/24 Chief Complaint: Recurrent MRSA infection HISTORY OF PRESENT ILLNESS: This is a 73-year-old male one of my patient with a previous medical history significant for hypertension and hypertensive cardiovascular disease, hyperlipidemia, obesity with obstructive sleep apnea, history of chronic alcohol use and dependence with the peripheral neuropathy, significant spondylosis of the lumbar spine with spinal stenosis and significant chronic low back pain, patient was recently hospitalized at [facility] about a month ago for MRSA cellulitis of the left lower extremity along with multiple wounds secondary to him being picking on his skin along with significant rash that he was seen dermatology for and he was diagnosed with allergic dermatitis and he was suppos ed to be on steroid cream as well as oral medications patient done well however patient also was diagnosed with COVID-19 in the last hospital admission he was treated with IV steroid and he was sent back to his assisted living at [facility], patient was supposed to come to the office for follow-up, he never made the post hospital follow-up, however the patient's visiting nurse called the office yesterday stated the patient is complaining of significant rash all over his body and is continues to pick at his skin, and he has multiple scabbed wounds all over his body 1 in the right shoulder, and multiple ones in the abdomen and both lower extremities, at that time we had contacted the pharmacy and called a steroid along with hydroxyzine 10 mg orally twice every day as well as a Medrol Dosepak, however the patient never picked up the prescription he ended up showing up to the ER for evaluation, I received a phone call from the emergency room physician yesterday stating the patient has significant rash all over his body associated with increased wound on the right shoulder as well as abdomen as well as lower extremity with different stages of healing because of the prior history of MRSA infection he was started on IV antibiotic in the form of vancomycin, I started the patient on Solu-Medrol 40 mg IV push every 8 hours, will place the patient on Benadryl 25 mg IV push every 6 hours, montelukast 10 mg once every day, and also placed the patient on famotidine 20 mg once every d ay, we will apply triamcinolone cream 0.1% to be applied twice every day to the affected area, infectious disease consultation was obtained I believe the patient will need to follow-up with dermatology for further evaluation recommendation. 05/22: Patient is sitting up in a chair in no apparent distress, he continues to have significant scratching all over his body, he continues to have a wound to the right shoulder, he has been getting IV antibiotic in the form of vancomycin, infectious disease following, he will be seen in consultation by wound care for wound care management, we will continue to follow-up with the patient very closely continue famotidine, continue Solu-Medrol, continue montelukast, continue with Benadryl, patient will need to follow-up with his tail edger Dr. Knapp as an outpatient. 05/23: Patient is sitting up in a chair he continues to be scratching all over his body, he continues to have issues with significant skin eruptions especially on his back the chest torso both lower extremities, continue Solu-Medrol 40 mg IV push every 8 hours, continue famotidine 20 mg once every day, continue Benadryl [id number], continue triamcinolone cream, we will follow-up with the patient very closely. Patient was seen by wound care team and will continue current treatment plan. 05/24: Patient is laying down in bed he continues to have significant itching in upper torso abdomen lower extremities better today, his Solu-Medrol was increased to 60 mg a push every 6 hours, discontinue losartan as it might be the culprit because of the reaction I will discontinue Lexapro as well, continue patient on mirtazapine 30 mg orally once every day, monitor the patient very closely, I will discontinue Benadryl start the patient on hydroxyzine 10 mg orally 3 times every day, continue famotidine 20 mg once every day, continue other treatment plan, monitor the patient very closely. Continue to apply triamcinolone cream twice every day, follow-up with dermatology as an outpatient. 05/25: Patient is sitting up in a chair feeling a bit better, he continues to have significant scabs in upper and lower extremities torso and abdomen, better than yesterday, I made sure the patient got his triamcinolone myself today and he is going to continue to take it twice every day, continue hydroxyzine 10 mg orally 3 times every day continue Solu-Medrol 60 mg IV push every 6 hours, continue montelukast 10 mg once every day continue famotidine 20 mg once every day continue to monitor the patient very closely, patient has an appointment to go see his tail edger next week, will continue current treatment plan, discontinued losartan yesterday increase amlodipine discontinue Namenda, discontinue mirtazapine, try to minimize the medication that he is taking to see if the patient is having allergic reaction to certain medication that he was started on. 05/26: Patient sitting up in the chair is feeling a bit better today, he continues to have significant rash on the torso and abdomen but is better than yesterday, I recommended for the patient to continue seeing the triamcinolone cream to be applied twice every day, I will continue Solu-Medrol 60 mg IV push every 6 hours, continue Singulair, continue famotidine, give the patient off losartan Namenda and mirtazapine patient has an appointment with dermatology next Monday at 10:45 in the morning, patient did have a biopsy to the skin before, rule out excoriation normal disorder or picking disease disorder that this patient may have beside allergic dermatitis and if that is the case patient need to be followed by psychiatry for behavioral therapy and cognitive behavioral therapy along with restarting back selective serotonin reuptake inhibitor such as fluoxetine versus escitalopram. Meanwhile as the patient progresses we will order a battery of laboratory evaluation including immunoglobulin IgG, IgM, IgE, IgD, and IgA, check thyroid function test with reflex to free T4, check hemoglobin A1c, check iron with ferritin level, check serum protein electrophoresis, check kappa and lambda light chain in the serum, check sed rate, and check vitamin D level, we will follow-up with the patient very closely. 05/27: Patient is sitting up in the chair he continues to have a significant rash in the upper and lower abdomen upper and lower extremities, better he continues to be on steroid, he denies any abdominal pain, nausea vomiting or diarrhea he continues to be somewhat hypertensive, we will decrease his Solu-Medrol to 40 mg IV push every 8 hours will discuss with dermatology other options of treatment. REVIEW OF SYSTEMS: Constitutional: No documented fever, no chills, no night sweats. No weight c hange. positive for weakness , reports fatigue reports lethargy. Positive for daytime sleepiness. HEENT: No headache. No blurred vision or double vision, no loss of vision. No loss of Hearing, no ringing in the ears, no dizziness. No nasal drainage or congestion. No epistaxis. No sore throat. Lungs: No shortness of breath, no cough, no sputum production. No wheezing. Reports dyspnea with activity. Cardiovascular: No chest pain, positive for lower extremity edema. No palpitations. No paroxysmal nocturnal dyspnea. No orthopnea. No lightheadedness or dizziness. No syncopal episodes.Positive for nocturia. Abdominal: No abdominal pain. No nausea, vomiting. No diarrhea. No co nstipation. No bloody or tarry stools . No loss of appetite. Genitourinary: No dysuria, increased frequency, urgency. No urinary retention. Musculoskeletal: positive for neck pain, positive for chronic low back pain, positive for significant pain in both lower extremities with significant neurop athy, positive for gait dysfunction, positive for lower extremity weakness. Integumentary: Positive for multiple skin lesions at different stages of healing associated with wound to the right shoulder, abdomen, left lower extremity, with some scab on top of it, with significant erythema to the right side of the torso, appears to be red with significant scratch boucher all over his body. Neurologic: No aphasia. No facial droop. Memory loss. No head injury. No headache, positive for paresthesia in both lower extremities Psychiatric: Patient does appear to be somewhat depressed, appears to be a bit anxious, no suicidal thoughts or ideation. Endocrine: No abnormal blood sugars, increased weight. PHYSICAL EXAMINATION: General: This is a 73-year-old male who is resting in bed and does not appear to be in acute distress. HEENT: Head is atraumatic, normocephalic, pupils were equal round reactive to light and recommendation, extraocular muscle movement were intact, sclera nonicteric, conjunctivae were pale, mucous membranes of the mouth are somewhat dry. Neck: Supple, no JVP, normal carotid upstroke bilaterally, no lymphadenopathy. Chest: Decreased breath sounds at the bases, few rhonchi, no expiratory wheezes, no chest wall tenderness, no intercostal retractions. Heart: First heart sound is normal, second heart sound is normal there is systolic ejection murmur 2/6 located in the left sternal border. Abdomen: Soft, nontender, nondistended, positive bowel sounds. Extremities: There is chronic significant venous stasis of right lower extremity with a chronic skin changes dorsalis pedis +1 bilaterally, right lower extremity with open wound and fat exposure with cellulitis Neurologic examination: Patient is awake alert and oriented X 3, cranial nerves II-12 appear grossly intact, muscle power were 4 out of 5 in upper extremities and 3out of 5 in bilateral lower extremities, deep tendon reflexes were depressed bilaterally. Skin examination: Significant eruption with maculopapular rash with significant scabs all over his abdomen torso upper and lower extremities as well as a wound to the right shoulder that measures about 2.5 x 2.5 x 0.1 cm and other scabs to the lower extremities and abdomen, with erythema to the right torso. ASSESSMENT AND PLAN: 1. Significant eruption likely related to allergic dermatitis with MRSA infection due to recurrent inoculation and scratching. Continue patient on current vancomycin to 225 mg IV piggyback every 6 hours, patient eventually may be switched to oral Bactrim double strength twice every day, monitor the patient very closely, continue Solu-Medrol 60 mg IV push every 6 hours, continue famotidine 20 mg once every day, continue hydroxyzine 10 mg orally 3 times every day, continue triamcinolone cream 0.1% to be applied twice every day, follow-up with the patient very closely continue moisturizer, avoid scratching as much as possible. Follow-up with dermatology next week on Monday rule out excoriation disorder or pick disease disorder versus allergic dermatitis, and if that is the case patient may benefit from Dupixent injection meanwhile we will go ahead and check a battery of laboratory evaluation to rule out any underlying conditions 2. Right lower extremity stasis dermatitis with multiple venous ulcers that is positive for MRSA continue with vancomycin 2225 mg IV piggyback every 16 hours, continue local care. 3. Hypertension and hypertensive cardiovascular disease. Continue patient on amlodipine 10 mg once every day, add metoprolol ER 25 mg orally once every day, monitor the patient blood pressure very closely. 4. Hyperlipidemia. Continue atorvastatin 40 mg daily. Keep LDL 55-70. 5. Vascular dementia. appears to be better, on the last Mini-Mental status examination patient scored about 28 out of 30. 6. History of chronic alcohol use and dependence. patient has quit 7. 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 Patient on oxycodone 10/325 mg 1 tablet every 4 hours as needed, monitor the patient very closely, Continue Lyrica 200 mg orally twice every day, discontinue Tylenol. 8. Bilateral lower extremity neuropathy continue patient on Lyrica 200 mg orally twice every day. 9. Depression. Feels better, discontinue mirtazapine, and the patient has been off Lexapro as well. Eventually patient may need to be seen by psychiatry for further evaluation of possible excoriation will disorder that is triggered by posttraumatic stress disorder depression or anxiety. 10. DVT prophylaxis. Continue Lovenox 40 mg subcutaneously every 24 hours. 11. GI prophylaxis. Continue Protonix 40 mg orally once every day and famotidine 20 mg orally once every day. 12. Increase activity. 13. Physical therapy evaluation 14. Social work consultation for discharge planning the plan is to go back to [facility]. Objective - Vital Signs Vital signs: Vital Signs Temp 97.2 F L 05/27/24 08:35 Pulse 65 05/27/24 08:35 Resp 17 05/27/24 08:35 BP 156/56 05/27/24 08:35 Pulse Ox 99 05/27/24 08:35 FiO2 Intake & Output 05/26/24 05/27/24 05/27/24 18:59 06:59 18:59 Other: # Voids 2 3 - Labs CBC & Chem 7: 05/27/24 05:40 05/28/24 09:40 Labs: Abnormal Lab Results - Last 24 Hours (Table) 05/26/24 05/26/24 05/26/24 Range/Units 12:59 12:59 12:59 BUN/Creatinine Ratio (12.00-20.00) Ratio Glucose (70-110) mg/dL Hemoglobin A1c 6.4 H (<=6.0) % Calcium (8.7-10.3) mg/dL Iron 47 L (65-175) UG/DL Transferrin 198.0 L (204.0-354.0) mg/dL Total Bilirubin (0.3-1.2) mg/dL Total Protein (6.2-8.2) g/dL Total Protein (PEP) (6.2-8.2) g/dL Albumin (3.8-4.9) g/dL Vitamin D 25-Hydroxy (30.0-100.0) ng/mL TSH 0.279 L (0.350-5.500) UIU/ML IgE 2022.00 H (0.00-114.00) IU/mL 05/26/24 05/27/24 Range/Units 12:59 05:40 BUN/Creatinine Ratio 33.25 H (12.00-20.00) Ratio Glucose 198 H (70-110) mg/dL Hemoglobin A1c (<=6.0) % Calcium 8.2 L (8.7-10.3) mg/dL Iron (65-175) UG/DL Transferrin (204.0-354.0) mg/dL Total Bilirubin <0.2 L (0.3-1.2) mg/dL Total Protein 5.0 L (6.2-8.2) g/dL Total Protein (PEP) 5.7 L (6.2-8.2) g/dL Albumin 3.3 L (3.8-4.9) g/dL Vitamin D 25-Hydroxy 14.7 L (30.0-100.0) ng/mL TSH (0.350-5.500) UIU/ML IgE (0.00-114.00) IU/mL
--- NOTE | 2024-05-28 12:47 | P.PN ---
Subjective Progress Note Date: 05/28/24 Principal diagnosis: Reason for follow-up is right leg wound cellulitis and rash Patient is a 73-year-old male with multiple comorbidities including hypertension osteoarthritis recent admission to the hospital with COVID-19 and the patient also have a right lower extremity wound with second cellulitis culture positive for MRSA, patient now presenting to the hospital with generalized itchy rash and apparently patient has been diagnosed with allergic dermatitis in the outpatient setting by signal maintenance technician On today's evaluation that is 05/28/2024, Patient is afebrile this morning patient denies having any chest pain shortness of breath or cough, the patient is breathing comfortably on room air, patient denies any abdominal pain no diarrhea no nausea no vomiting, still complaining of itching and rash and seem to be slightly upset as the report just came back from the dermatology office regarding scabies. Patient did have a creatinine 0.82 Objective - Vital Signs Vital signs: Vital Signs Temp 98.6 F 05/28/24 07:43 Pulse 69 05/28/24 07:43 Resp 17 05/28/24 07:43 BP 181/81 05/28/24 07:43 Pulse Ox 97 05/28/24 07:43 FiO2 Intake & Output 05/27/24 05/28/24 05/28/24 18:59 06:59 18:59 Weight 145.15 kg Other: # Voids 3 3 - Exam GENERAL DESCRIPTION: An elderly male up in the chair in no distress RESPIRATORY SYSTEM: Unlabored breathing , decreased breath sounds at bases HEART: S1 S2 regular rate and rhythm , ABDOMEN: Soft , no tenderness Skin examination did shows diffuse rash especially to the trunk a rash to the upper lower extremity has decreased in intensity - Labs CBC & Chem 7: 05/27/24 05:40 05/28/24 09:40 Labs: Abnormal Lab Results - Last 24 Hours (Table) 05/27/24 Range/Units 05:40 RBC 3.69 L (4.40-5.60) X 10*6/uL Hgb 10.4 L (13.0-17.0) g/dL Hct 31.7 L (39.6-50.0) % RDW 18.2 H (11.5-14.5) % Immature Gran # 0.21 H (0.00-0.04) X 10*3/uL Neutrophils # 7.82 H (1.80-7.70) X 10*3/uL Eosinophils # 0 L (0.04-0.35) X 10*3/uL Assessment and Plan (1) Leg wound, right Current Visit: Yes Status: Acute Code(s): S81.801A - UNSPECIFIED OPEN WOUND, RIGHT LOWER LEG, INITIAL ENCOUNTER SNOMED Code(s): 51689543072080180 (2) Drug rash Current Visit: Yes Status: Acute Code(s): L27.0 - GEN SKIN ERUPTION DUE TO DRUGS AND MEDS TAKEN INTERNALLY SNOMED Code(s): 49348356 (3) Cellulitis of right leg Current Visit: No Status: Acute Code(s): L03.115 - CELLULITIS OF RIGHT LOWER LIMB SNOMED Code(s): 06409032999744032 Plan: 1-patient wound to the right lower extremity previous culture positive for MRSA seems to be healing, local culture currently growing MRSA and the patient is covered with the vancomycin pharmacy to dose will watch his kidney function closely. Will apply Aquacel dressing to the right lower extremity wound changed q. 48-hour 2patient with diffuse rash with initial report of possible allergic dermatitis consideration was for possible related to losartan which has been discontinued however now report from the dermatology with a diagnosis of scabies we will try to obtain records from the dermatology office ivermectin has been added will see clinical response 3-patient has received adequate IV vancomycin for cellulitis that can be discontinued on discharge Dictation was produced using [employer] software. please excuse any grammatical, word or spelling errors.
[2024-05-28] MEDS: IVERMECTIN 3 MG TABLET PO SCH (14:42)
[2024-05-28 20:06] LABS: Albumin 3.23 g/dL (3.80-4.90); Gamma Globulin 0.74 g/dL (0.70-1.50)
[2024-05-28] MEDS: methylPREDNISolone SOD SUCCI 40 MG/ML 1 ML VIAL IV SCH (20:27)
--- NOTE | 2024-05-29 13:23 | P.PN ---
Subjective Progress Note Date: 05/28/24 Chief Complaint: Recurrent MRSA infection HISTORY OF PRESENT ILLNESS: This is a 73-year-old male one of my patient with a previous medical history significant for hypertension and hypertensive cardiovascular disease, hyperlipidemia, obesity with obstructive sleep apnea, history of chronic alcohol use and dependence with the peripheral neuropathy, significant spondylosis of the lumbar spine with spinal stenosis and significant chronic low back pain, patient was recently hospitalized at [facility] about a month ago for MRSA cellulitis of the left lower extremity along with multiple wounds secondary to him being picking on his skin along with significant rash that he was seen dermatology for and he was diagnosed with allergic dermatitis and he was suppos ed to be on steroid cream as well as oral medications patient done well however patient also was diagnosed with COVID-19 in the last hospital admission he was treated with IV steroid and he was sent back to his assisted living at [facility], patient was supposed to come to the office for follow-up, he never made the post hospital follow-up, however the patient's visiting nurse called the office yesterday stated the patient is complaining of significant rash all over his body and is continues to pick at his skin, and he has multiple scabbed wounds all over his body 1 in the right shoulder, and multiple ones in the abdomen and both lower extremities, at that time we had contacted the pharmacy and called a steroid along with hydroxyzine 10 mg orally twice every day as well as a Medrol Dosepak, however the patient never picked up the prescription he ended up showing up to the ER for evaluation, I received a phone call from the emergency room physician yesterday stating the patient has significant rash all over his body associated with increased wound on the right shoulder as well as abdomen as well as lower extremity with different stages of healing because of the prior history of MRSA infection he was started on IV antibiotic in the form of vancomycin, I started the patient on Solu-Medrol 40 mg IV push every 8 hours, will place the patient on Benadryl 25 mg IV push every 6 hours, montelukast 10 mg once every day, and also placed the patient on famotidine 20 mg once every d ay, we will apply triamcinolone cream 0.1% to be applied twice every day to the affected area, infectious disease consultation was obtained I believe the patient will need to follow-up with dermatology for further evaluation recommendation. 05/22: Patient is sitting up in a chair in no apparent distress, he continues to have significant scratching all over his body, he continues to have a wound to the right shoulder, he has been getting IV antibiotic in the form of vancomycin, infectious disease following, he will be seen in consultation by wound care for wound care management, we will continue to follow-up with the patient very closely continue famotidine, continue Solu-Medrol, continue montelukast, continue with Benadryl, patient will need to follow-up with his cash applications manager Dr. Knapp as an outpatient. 05/23: Patient is sitting up in a chair he continues to be scratching all over his body, he continues to have issues with significant skin eruptions especially on his back the chest torso both lower extremities, continue Solu-Medrol 40 mg IV push every 8 hours, continue famotidine 20 mg once every day, continue Benadryl [id number], continue triamcinolone cream, we will follow-up with the patient very closely. Patient was seen by wound care team and will continue current treatment plan. 05/24: Patient is laying down in bed he continues to have significant itching in upper torso abdomen lower extremities better today, his Solu-Medrol was increased to 60 mg a push every 6 hours, discontinue losartan as it might be the culprit because of the reaction I will discontinue Lexapro as well, continue patient on mirtazapine 30 mg orally once every day, monitor the patient very closely, I will discontinue Benadryl start the patient on hydroxyzine 10 mg orally 3 times every day, continue famotidine 20 mg once every day, continue other treatment plan, monitor the patient very closely. Continue to apply triamcinolone cream twice every day, follow-up with dermatology as an outpatient. 05/25: Patient is sitting up in a chair feeling a bit better, he continues to have significant scabs in upper and lower extremities torso and abdomen, better than yesterday, I made sure the patient got his triamcinolone myself today and he is going to continue to take it twice every day, continue hydroxyzine 10 mg orally 3 times every day continue Solu-Medrol 60 mg IV push every 6 hours, continue montelukast 10 mg once every day continue famotidine 20 mg once every day continue to monitor the patient very closely, patient has an appointment to go see his cash applications manager next week, will continue current treatment plan, discontinued losartan yesterday increase amlodipine discontinue Namenda, discontinue mirtazapine, try to minimize the medication that he is taking to see if the patient is having allergic reaction to certain medication that he was started on. 05/26: Patient sitting up in the chair is feeling a bit better today, he continues to have significant rash on the torso and abdomen but is better than yesterday, I recommended for the patient to continue seeing the triamcinolone cream to be applied twice every day, I will continue Solu-Medrol 60 mg IV push every 6 hours, continue Singulair, continue famotidine, give the patient off losartan Namenda and mirtazapine patient has an appointment with dermatology next Monday at 10:45 in the morning, patient did have a biopsy to the skin before, rule out excoriation normal disorder or picking disease disorder that this patient may have beside allergic dermatitis and if that is the case patient need to be followed by psychiatry for behavioral therapy and cognitive behavioral therapy along with restarting back selective serotonin reuptake inhibitor such as fluoxetine versus escitalopram. Meanwhile as the patient progresses we will order a battery of laboratory evaluation including immunoglobulin IgG, IgM, IgE, IgD, and IgA, check thyroid function test with reflex to free T4, check hemoglobin A1c, check iron with ferritin level, check serum protein electrophoresis, check kappa and lambda light chain in the serum, check sed rate, and check vitamin D level, we will follow-up with the patient very closely. 05/27: Patient is sitting up in the chair he continues to have a significant rash in the upper and lower abdomen upper and lower extremities, better he continues to be on steroid, he denies any abdominal pain, nausea vomiting or diarrhea he continues to be somewhat hypertensive, we will decrease his Solu-Medrol to 40 mg IV push every 8 hours will discuss with dermatology other options of treatment. 05/28: Patient is sitting up in chair no apparent distress, I received a call from his cash applications manager today stating that the patient has scabies, she recommended for the patient to go on ivermectin 0.2 mg/kg per dose x 2 doses every 14 days, patient will be getting 29 mg now and into the 2 weeks again based on his body weight, I will decrease his Solu-Medrol to 40 mg IV push every 8 hours, will try to wean him off the steroid, will continue to monitor the patient very closely, his blood pressure continue to be elevated at this time, we will continue to monitor the patient blood pressure very closely, currently on metoprolol ER 50 mg once every day and amlodipine 10 mg once every day, may need to restarted back on losartan 100 mg once every day. REVIEW OF SYSTEMS: Constitutional: No documented fever, no chills, no night sweats. No weight change. positive for weakness , reports fatigue reports lethargy. Positive for daytime sleepiness. HEENT: No headache. No blurred vision or double vision, no loss of vision. No loss of Hearing, no ringing in the ears, no dizziness. No nasal drainage or congestion. No epistaxis. No sore throat. Lungs: No shortness of breath, no cough, no sputum production. No wheezing. Reports dyspnea with activity. Cardiovascular: No chest pain, positive for lower extremity edema. No palpitations. No paroxysmal nocturnal dyspnea. No orthopnea. No lightheadedness or dizziness. No syncopal episodes.Positive for nocturia. Abdominal: No abdominal pain. No nausea, vomiting. No diarrhea. No constipation. No bloody or tarry stools . No loss of appetite. Genitourinary: No dysuria, increased frequency, urgency. No urinary retention. Musculoskeletal: positive for neck pain, positive for chronic low back pain, positive for significant pain in both lower extremities with significant neuropathy, positive for gait dysfunction, positive for lower extremity weakness. Integumentary: Positive for multiple skin lesions at different stages of healing associated with wound to the right shoulder, abdomen, left lower extremity, with some scab on top of it, with significant erythema to the right side of the torso, appears to be red with significant scratch boucher all over his body. Neurologic: No aphasia. No facial droop. Memory loss. No head injury. No headache, positive for paresthesia in both lower extremities Psychiatric: Patient does appear to be somewhat depressed, appears to be a bit anxious, no suicidal thoughts or ideation. Endocrine: No abnormal blood sugars, increased weight. PHYSICAL EXAMINATION: General: This is a 73-year-old male who is resting in bed and does not appear to be in acute distress. HEENT: Head is atraumatic, normocephalic, pupils were equal round reactive to light and recommendation, extraocular muscle movement were intact, sclera nonicteric, conjunctivae were pale, mucous membranes of the mouth are somewhat dry. Neck: Supple, no JVP, normal carotid upstroke bilaterally, no lymphadenopathy. Chest: Decreased breath sounds at the bases, few rhonchi, no expiratory wheezes, no chest wall tenderness, no intercostal retractions. Heart: First heart sound is normal, second heart sound is normal there is systolic ejection murmur 2/6 located in the left sternal border. Abdomen: Soft, nontender, nondistended, positive bowel sounds. Extremities: There is chronic significant venous stasis of right lower extremity with a chronic skin changes dorsalis pedis +1 bilaterally, right lower extremity with open wound and fat exposure with cellulitis Neurologic examination: Patient is awake alert and oriented X 3, cranial nerves II-12 appear grossly intact, muscle power were 4 out of 5 in upper extremities and 3out of 5 in bilateral lower extremities, deep tendon reflexes were depressed bilaterally. Skin examination: Significant eruption with maculopapular rash with significant scabs all over his abdomen torso upper and lower extremities as well as a wound to the right shoulder that measures about 2.5 x 2.5 x 0.1 cm and other scabs to the lower extremities and abdomen, with erythema to the right torso. ASSESSMENT AND PLAN: 1. And crusted scabies with MRSA infection. Start the patient on ivermectin 29 mg x 1 now and another dose in 14 days, continue to decrease his Solu-Medrol to 40 mg IV push every 8 hours, continue vancomycin per pharmacy dose, continue triamcinolone as needed, we will follow-up with the patient very closely. 2. Right lower extremity stasis dermatitis with multiple venous ulcers that is positive for MRSA continue with vancomycin 2225 mg IV piggyback every 16 hours, continue local care. 3. Hypertension and hypertensive cardiovascular disease. Continue patient on amlodipine 10 mg once every day, add metoprolol ER 25 mg orally once every day, monitor the patient blood pressure very closely. 4. Hyperlipidemia. Continue atorvastatin 40 mg daily. Keep LDL 55-70. 5. Vascular dementia. appears to be better, on the last Mini-Mental status examination patient scored about 28 out of 30. 6. History of chronic alcohol use and dependence. patient has quit 7. Spondylosis of the cervical spine and lumbar spine with a chronic pain sy ndrome. Patient on oxycodone 10/325 mg 1 tablet every 4 hours as needed, monitor the patient very closely, Continue Lyrica 200 mg orally twice every day, discontinue Tylenol. 8. Bilateral lower extremity neuropathy continue patient on Lyrica 200 mg orally twice every day. 9. Depression. Feels better, discontinue mirtazapine, and the patient has been off Lexapro as well. Eventually patient may need to be seen by psychiatry for further evaluation of possible excoriation will disorder that is triggered by posttraumatic stress disorder depression or anxiety. 10. DVT prophylaxis. Continue Lovenox 40 mg subcutaneously every 24 hours. 11. GI prophylaxis. Continue Protonix 40 mg orally once every day and famotidine 20 mg orally once every day. 12. Increase activity. 13. Physical therapy evaluation 14. Social work consultation for discharge planning the plan is to go back to [facility]. Objective - Vital Signs Vital signs: Vital Signs Temp 98.6 F 05/28/24 07:43 Pulse 69 05/28/24 07:43 Resp 17 05/28/24 07:43 BP 181/81 05/28/24 07:43 Pulse Ox 97 05/28/24 07:43 FiO2 Intake & Output 05/27/24 05/28/24 05/28/24 18:59 06:59 18:59 Weight 145.15 kg Other: # Voids 3 3 - Labs CBC & Chem 7: 05/27/24 05:40 05/28/24 09:40 Labs: Abnormal Lab Results - Last 24 Hours (Table) 05/27/24 Range/Units 05:40 RBC 3.69 L (4.40-5.60) X 10*6/uL Hgb 10.4 L (13.0-17.0) g/dL Hct 31.7 L (39.6-50.0) % RDW 18.2 H (11.5-14.5) % Immature Gran # 0.21 H (0.00-0.04) X 10*3/uL Neutrophils # 7.82 H (1.80-7.70) X 10*3/uL Eosinophils # 0 L (0.04-0.35) X 10*3/uL
--- NOTE | 2024-05-29 13:25 | P.PN ---
Subjective Progress Note Date: 05/29/24 Chief Complaint: Recurrent MRSA infection HISTORY OF PRESENT ILLNESS: This is a 73-year-old male one of my patient with a previous medical history significant for hypertension and hypertensive cardiovascular disease, hyperlipidemia, obesity with obstructive sleep apnea, history of chronic alcohol use and dependence with the peripheral neuropathy, significant spondylosis of the lumbar spine with spinal stenosis and significant chronic low back pain, patient was recently hospitalized at [facility] about a month ago for MRSA cellulitis of the left lower extremity along with multiple wounds secondary to him being picking on his skin along with significant rash that he was seen dermatology for and he was diagnosed with allergic dermatitis and he was suppos ed to be on steroid cream as well as oral medications patient done well however patient also was diagnosed with COVID-19 in the last hospital admission he was treated with IV steroid and he was sent back to his assisted living at [facility], patient was supposed to come to the office for follow-up, he never made the post hospital follow-up, however the patient's visiting nurse called the office yesterday stated the patient is complaining of significant rash all over his body and is continues to pick at his skin, and he has multiple scabbed wounds all over his body 1 in the right shoulder, and multiple ones in the abdomen and both lower extremities, at that time we had contacted the pharmacy and called a steroid along with hydroxyzine 10 mg orally twice every day as well as a Medrol Dosepak, however the patient never picked up the prescription he ended up showing up to the ER for evaluation, I received a phone call from the emergency room physician yesterday stating the patient has significant rash all over his body associated with increased wound on the right shoulder as well as abdomen as well as lower extremity with different stages of healing because of the prior history of MRSA infection he was started on IV antibiotic in the form of vancomycin, I started the patient on Solu-Medrol 40 mg IV push every 8 hours, will place the patient on Benadryl 25 mg IV push every 6 hours, montelukast 10 mg once every day, and also placed the patient on famotidine 20 mg once every d ay, we will apply triamcinolone cream 0.1% to be applied twice every day to the affected area, infectious disease consultation was obtained I believe the patient will need to follow-up with dermatology for further evaluation recommendation. 05/22: Patient is sitting up in a chair in no apparent distress, he continues to have significant scratching all over his body, he continues to have a wound to the right shoulder, he has been getting IV antibiotic in the form of vancomycin, infectious disease following, he will be seen in consultation by wound care for wound care management, we will continue to follow-up with the patient very closely continue famotidine, continue Solu-Medrol, continue montelukast, continue with Benadryl, patient will need to follow-up with his gut carrier Dr. Knapp as an outpatient. 05/23: Patient is sitting up in a chair he continues to be scratching all over his body, he continues to have issues with significant skin eruptions especially on his back the chest torso both lower extremities, continue Solu-Medrol 40 mg IV push every 8 hours, continue famotidine 20 mg once every day, continue Benadryl [id number], continue triamcinolone cream, we will follow-up with the patient very closely. Patient was seen by wound care team and will continue current treatment plan. 05/24: Patient is laying down in bed he continues to have significant itching in upper torso abdomen lower extremities better today, his Solu-Medrol was increased to 60 mg a push every 6 hours, discontinue losartan as it might be the culprit because of the reaction I will discontinue Lexapro as well, continue patient on mirtazapine 30 mg orally once every day, monitor the patient very closely, I will discontinue Benadryl start the patient on hydroxyzine 10 mg orally 3 times every day, continue famotidine 20 mg once every day, continue other treatment plan, monitor the patient very closely. Continue to apply triamcinolone cream twice every day, follow-up with dermatology as an outpatient. 05/25: Patient is sitting up in a chair feeling a bit better, he continues to have significant scabs in upper and lower extremities torso and abdomen, better than yesterday, I made sure the patient got his triamcinolone myself today and he is going to continue to take it twice every day, continue hydroxyzine 10 mg orally 3 times every day continue Solu-Medrol 60 mg IV push every 6 hours, continue montelukast 10 mg once every day continue famotidine 20 mg once every day continue to monitor the patient very closely, patient has an appointment to go see his gut carrier next week, will continue current treatment plan, discontinued losartan yesterday increase amlodipine discontinue Namenda, discontinue mirtazapine, try to minimize the medication that he is taking to see if the patient is having allergic reaction to certain medication that he was started on. 05/26: Patient sitting up in the chair is feeling a bit better today, he continues to have significant rash on the torso and abdomen but is better than yesterday, I recommended for the patient to continue seeing the triamcinolone cream to be applied twice every day, I will continue Solu-Medrol 60 mg IV push every 6 hours, continue Singulair, continue famotidine, give the patient off losartan Namenda and mirtazapine patient has an appointment with dermatology next Monday at 10:45 in the morning, patient did have a biopsy to the skin before, rule out excoriation normal disorder or picking disease disorder that this patient may have beside allergic dermatitis and if that is the case patient need to be followed by psychiatry for behavioral therapy and cognitive behavioral therapy along with restarting back selective serotonin reuptake inhibitor such as fluoxetine versus escitalopram. Meanwhile as the patient progresses we will order a battery of laboratory evaluation including immunoglobulin IgG, IgM, IgE, IgD, and IgA, check thyroid function test with reflex to free T4, check hemoglobin A1c, check iron with ferritin level, check serum protein electrophoresis, check kappa and lambda light chain in the serum, check sed rate, and check vitamin D level, we will follow-up with the patient very closely. 05/27: Patient is sitting up in the chair he continues to have a significant rash in the upper and lower abdomen upper and lower extremities, better he continues to be on steroid, he denies any abdominal pain, nausea vomiting or diarrhea he continues to be somewhat hypertensive, we will decrease his Solu-Medrol to 40 mg IV push every 8 hours will discuss with dermatology other options of treatment. 05/28: Patient is sitting up in chair no apparent distress, I received a call from his gut carrier today stating that the patient has scabies, she recommended for the patient to go on ivermectin 0.2 mg/kg per dose x 2 doses every 14 days, patient will be getting 29 mg now and into the 2 weeks again based on his body weight, I will decrease his Solu-Medrol to 40 mg IV push every 8 hours, will try to wean him off the steroid, will continue to monitor the patient very closely, his blood pressure continue to be elevated at this time, we will continue to monitor the patient blood pressure very closely, currently on metoprolol ER 50 mg once every day and amlodipine 10 mg once every day, may need to restarted back on losartan 100 mg once every day. 05/29: Patient is sitting up in the chair he continues to itch all over his body, continue to have scabs all over his body as well, he has been receiving vancomycin due to his MRSA, we will decrease his Solu-Medrol to 40 mg IV push every 12 hours, he did receive ivermectin 30 mg p.o. x 1 yesterday, will repeat this in the next 2 weeks, patient will continue to be treated for MRSA infection as well as his scabies, we will continue to follow the patient very closely, likely will discharge the patient in the next 1 or 2 days per REVIEW OF SYSTEMS: Constitutional: No documented fever, no chills, no night sweats. No weight change. positive for weakness , reports fatigue reports lethargy. Positive for daytime sleepiness. HEENT: No headache. No blurred vision or double vision, no loss of vision. No loss of Hearing, no ringing in the ears, no dizziness. No nasal drainage or congestion. No epistaxis. No sore throat. Lungs: No shortness of breath, no cough, no sputum production. No wheezing. Reports dyspnea with activity. Cardiovascular: No chest pain, positive for lower extremity edema. No palpitations. No paroxysmal nocturnal dyspnea. No orthopnea. No lightheadedness or dizziness. No syncopal episodes.Positive for nocturia. Abdominal: No abdominal pain. No nausea, vomiting. No diarrhea. No constipation. No bloody or tarry stools . No loss of appetite. Genitourinary: No dysuria, increased frequency, urgency. No urinary retention. Musculoskeletal: positive for neck pain, positive for chronic low back pain, positive for significant pain in both lower extremities with significant neuropathy, positive for gait dysfunction, positive for lower extremity weakness. Integumentary: Positive for multiple skin lesions at different stages of healing associated with wound to the right shoulder, abdomen, left lower extremity, with some scab on top of it, with significant erythema to the right side of the torso, appears to be red with significant scratch boucher all over his body. Neurologic: No aphasia. No facial droop. Memory loss. No head injury. No headache, positive for paresthesia in both lower extremities Psychiatric: Patient does appear to be somewhat depressed, appears to be a bit anxious, no suicidal thoughts or ideation. Endocrine: No abnormal blood sugars, increased weight. PHYSICAL EXAMINATION: General: This is a 73-year-old male who is resting in bed and does not appear to be in acute distress. HEENT: Head is atraumatic, normocephalic, pupils were equal round reactive to light and recommendation, extraocular muscle movement were intact, sclera nonicteric, conjunctivae were pale, mucous membranes of the mouth are somewhat dry. Neck: Supple, no JVP, normal carotid upstroke bilaterally, no lymphadenopathy. Chest: Decreased breath sounds at the bases, few rhonchi, no expiratory wheezes, no chest wall tenderness, no intercostal retractions. Heart: First heart sound is normal, second heart sound is normal there is systolic ejection murmur 2/6 located in the left sternal border. Abdomen: Soft, nontender, nondistended, positive bowel sounds. Extremities: There is chronic significant venous stasis of right lower extremity with a chronic skin changes dorsalis pedis +1 bilaterally, right lower extremity with open wound and fat exposure with cellulitis Neurologic examination: Patient is awake alert and oriented X 3, cranial nerves II-12 appear grossly intact, muscle power were 4 out of 5 in upper extremities and 3out of 5 in bilateral lower extremities, deep tendon reflexes were depressed bilaterally. Skin examination: Significant eruption with maculopapular rash with significant scabs all over his abdomen torso upper and lower extremities as well as a wound to the right shoulder that measures about 2.5 x 2.5 x 0.1 cm and other scabs to the lower extremities and abdomen, with erythema to the right torso. ASSESSMENT AND PLAN: 1. And crusted scabies with MRSA infection. Started the patient on ivermectin 29 mg x 1 now and another dose in 14 days, continue to decrease his Solu-Medrol to 40 mg IV push every 8 hours, continue vancomycin per pharmacy dose, continue triamcinolone as needed, we will follow-up with the patient very closely. 2. Right lower extremity stasis dermatitis with multiple venous ulcers that is positive for MRSA continue with vancomycin 2225 mg IV piggyback every 16 hours, continue local care. 3. Hypertension and hypertensive cardiovascular disease. Continue patient on amlodipine 10 mg once every day, add metoprolol ER 25 mg orally once every day, monitor the patient blood pressure very closely. 4. Hyperlipidemia. Continue atorvastatin 40 mg daily. Keep LDL 55-70. 5. Vascular dementia. appears to be better, on the last Mini-Mental status examination patient scored about 28 out of 30. 6. History of chronic alcohol use and dependence. patient has quit 7. 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 Patient on oxycodone 10/325 mg 1 tablet every 4 hours as needed, monitor the patient very closely, Continue Lyrica 200 mg orally twice every day, discontinue Tylenol. 8. Bilateral lower extremity neuropathy continue patient on Lyrica 200 mg orally twice every day. 9. Depression. Feels better, discontinue mirtazapine, and the patient has been off Lexapro as well. Eventually patient may need to be seen by psychiatry for further evaluation of possible excoriation will disorder that is triggered by posttraumatic stress disorder depression or anxiety. 10. DVT prophylaxis. Continue Lovenox 40 mg subcutaneously every 24 hours. 11. GI prophylaxis. Continue Protonix 40 mg orally once every day and famotidine 20 mg orally once every day. 12. Increase activity. 13. Physical therapy evaluation 14. Social work consultation for discharge planning the plan is to go back to [facility] hopefully in the next 24 to 48 hours. Objective - Vital Signs Vital signs: Vital Signs Temp 98.1 F 05/29/24 07:50 Pulse 59 L 05/29/24 07:50 Resp 17 05/29/24 07:50 BP 181/84 05/29/24 07:50 Pulse Ox 96 05/29/24 07:50 FiO2 Intake & Output 05/28/24 05/29/24 05/29/24 18:59 06:59 18:59 Other: Voiding Method Toilet Toilet Urinal Urinal # Voids 6 2 # Bowel Movements 1 - Labs CBC & Chem 7: 05/27/24 05:40 05/28/24 09:40 Labs: Abnormal Lab Results - Last 24 Hours (Table) 05/26/24 Range/Units 12:59 Albumin (PEP) 3.23 L (3.80-4.90) g/dL Beta Globulins 0.58 L (0.60-1.30) g/dL
[2024-05-29] MEDS ORDERED: methylPREDNISolone SOD SUCCI 40 MG/ML 1 ML VIAL IV SCH (14:00)
[2024-05-29] MEDS: LOSARTAN 50 MG TAB PO SCH (14:58)
[2024-05-29] MEDS: methylPREDNISolone SOD SUCCI 40 MG/ML 1 ML VIAL IV SCH (21:15)
[2024-05-30 09:49] LABS: African American GFR (CKD) >90 (>60 ml/min/1.73 sqM); Anion Gap 3 mmol/L; Blood Urea Nitrogen 34 mg/dL (9-20); Calcium 8.9 mg/dL (8.4-10.2); Carbon Dioxide 34 mmol/L (22-30); Chloride 100 mmol/L (98-107); Glucose 136 mg/dL (74-99); Non-African American GFR(CKD) 89 (>60 ml/min/1.73 sqM); Potassium 4.8 mmol/L (3.5-5.1); Sodium 137 mmol/L (137-145)
[2024-05-30] MEDS: VANCOMYCIN TROUGH DUE 1 EACH MISC MISCELLANE ONE (10:23)
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
--- NOTE | 2024-05-30 15:21 | P.PN ---
Subjective Progress Note Date: 05/29/24 Principal diagnosis: Reason for follow-up is right leg wound cellulitis and rash Patient is a 73-year-old male with multiple comorbidities including hypertension osteoarthritis recent admission to the hospital with COVID-19 and the patient also have a right lower extremity wound with second cellulitis culture positive for MRSA, patient now presenting to the hospital with generalized itchy rash and apparently patient has been diagnosed with allergic dermatitis in the outpatient setting by sales inspector On today's evaluation that is 05/29/2024,the patient denies any fever or any chills, patient is breathing comfortably on room air, the patient denies chest pain shortness of breath and no significant cough, patient denies abdominal pain, no nausea vomiting or diarrhea. Still complaining of itching though slightly decreased in intensity No new labs were obtained today Objective - Vital Signs Vital signs: Vital Signs Temp 98.1 F 05/29/24 07:50 Pulse 59 L 05/29/24 07:50 Resp 17 05/29/24 07:50 BP 181/84 05/29/24 07:50 Pulse Ox 96 05/29/24 07:50 FiO2 Intake & Output 05/28/24 05/29/24 05/29/24 18:59 06:59 18:59 Other: Voiding Method Toilet Toilet Urinal Urinal # Voids 6 2 # Bowel Movements 1 - Exam GENERAL DESCRIPTION: An elderly male up in the chair in no distress RESPIRATORY SYSTEM: Unlabored breathing , decreased breath sounds at bases HEART: S1 S2 regular rate and rhythm , ABDOMEN: Soft , no tenderness Skin examination did shows diffuse rash especially to the trunk a rash to the upper lower extremity has decreased in intensity - Labs CBC & Chem 7: 05/27/24 05:40 05/30/24 09:16 Labs: Abnormal Lab Results - Last 24 Hours (Table) 05/26/24 Range/Units 12:59 Albumin (PEP) 3.23 L (3.80-4.90) g/dL Beta Globulins 0.58 L (0.60-1.30) g/dL Assessment and Plan (1) Leg wound, right Current Visit: Yes Status: Acute Code(s): S81.801A - UNSPECIFIED OPEN WOUND, RIGHT LOWER LEG, INITIAL ENCOUNTER SNOMED Code(s): 87490899104218604 (2) Drug rash Current Visit: Yes Status: Acute Code(s): L27.0 - GEN SKIN ERUPTION DUE TO DRUGS AND MEDS TAKEN INTERNALLY SNOMED Code(s): 47056708 (3) Cellulitis of right leg Current Visit: No Status: Acute Code(s): L03.115 - CELLULITIS OF RIGHT LOWER LIMB SNOMED Code(s): 40420001262518700 Plan: 1-patient wound to the right lower extremity previous culture positive for MRSA seems to be healing, local culture currently growing MRSA and the patient is covered with the vancomycin pharmacy to dose will watch his kidney function closely. Will apply Aquacel dressing to the right lower extremity wound changed q. 48-hour 2patient with diffuse rash with initial report of possible allergic dermatitis consideration was for possible related to losartan which has been discontinued however now report from the dermatology with a diagnosis of scabies patient has been started on ivermectin, will see clinical response 3-patient has received adequate IV vancomycin for cellulitis/wound infection which are healing Dictation was produced using [employer] dictation software. please excuse any grammatical, word or spelling errors. Time with Patient: Less than 30
--- NOTE | 2024-05-30 15:22 | P.PN ---
Subjective Progress Note Date: 05/30/24 Principal diagnosis: Reason for follow-up is right leg wound cellulitis and rash Patient is a 73-year-old male with multiple comorbidities including hypertension osteoarthritis recent admission to the hospital with COVID-19 and the patient also have a right lower extremity wound with second cellulitis culture positive for MRSA, patient now presenting to the hospital with generalized itchy rash and apparently patient has been diagnosed with allergic dermatitis in the outpatient setting by coat finisher On today's evaluation that is 05/30/2024,the patient remains to be afebrile, patient is on room air not requiring supplemental oxygen and denies any shortness of breath no chest pain or cough.Patient denies having any nausea or vomiting, no abdominal pain and no diarrhea has been reported, the patient itching has decreased in intensity and the wound to the right lower extremity almost healed. Patient did have a creatinine 0.83 Objective - Vital Signs Vital signs: Vital Signs Temp 98.2 F 05/30/24 07:11 Pulse 51 L 05/30/24 12:09 Resp 18 05/30/24 12:09 BP 148/67 05/30/24 07:11 Pulse Ox 95 05/30/24 07:11 FiO2 Intake & Output 05/29/24 05/30/24 05/30/24 18:59 06:59 18:59 Intake Total 400 960 200 Balance 400 960 200 Intake: Oral 400 960 200 Other: Voiding Method Toilet Toilet Toilet Urinal Urinal Urinal # Voids 4 - Exam GENERAL DESCRIPTION: An elderly male up in the chair in no distress RESPIRATORY SYSTEM: Unlabored breathing , decreased breath sounds at bases HEART: S1 S2 regular rate and rhythm , ABDOMEN: Soft , no tenderness Skin examination did shows diffuse rash especially to the trunk a rash to the upper lower extremity has decreased in intensity - Labs CBC & Chem 7: 05/27/24 05:40 05/30/24 09:16 Labs: Abnormal Lab Results - Last 24 Hours (Table) 05/30/24 Range/Units 09:16 Carbon Dioxide 34 H (22-30) mmol/L BUN 34 H (9-20) mg/dL Glucose 136 H (74-99) mg/dL Assessment and Plan (1) Leg wound, right Current Visit: Yes Status: Acute Code(s): S81.801A - UNSPECIFIED OPEN WOUND, RIGHT LOWER LEG, INITIAL ENCOUNTER SNOMED Code(s): 16476304061419961 (2) Drug rash Current Visit: Yes Status: Acute Code(s): L27.0 - GEN SKIN ERUPTION DUE TO DRUGS AND MEDS TAKEN INTERNALLY SNOMED Code(s): 84863881 (3) Cellulitis of right leg Current Visit: No Status: Acute Code(s): L03.115 - CELLULITIS OF RIGHT LOWER LIMB SNOMED Code(s): 60828969284942613 Plan: 1-patient wound to the right lower extremity previous culture positive for MRSA seems to be healing, local culture currently growing MRSA and the patient is covered with the vancomycin pharmacy to dose will watch his kidney function closely. Will apply Aquacel dressing to the right lower extremity wound changed q. 48-hour 2patient with diffuse rash with initial report of possible allergic dermatitis consideration was for possible related to losartan which has been discontinued however now report from the dermatology with a diagnosis of scabies patient has been started on ivermectin, patient seem to have some clinical response will need a repeat dose in 2 weeks 3-patient right leg wound is almost healed and the wound to the right posterior shoulder is healing as well local care switched over to Aquacel silver dressing continue vancomycin however no plan for IV or oral antibiotic on discharge Dictation was produced using [employer] dictation software. please excuse any grammatical, word or spelling errors. Time with Patient: Less than 30
[2024-05-31] MEDS: oxyCODONE-APAP 10-325MG 1 EACH TAB PO SCH (03:10)
[2024-05-31 08:56] LABS: HCT 36.9 % (39.6-50.0); HGB 11.8 g/dL (13.0-17.0); MCH 27.5 pg (27.0-32.0); Mean Platelet Volume 10.8 FL (9.5-12.2); NRBC Per 100 WBC 0 X 10*3/uL (0.00-0.01); Platelet Count 269 X 10*3/uL (140-440); RBC 4.29 X 10*6/uL (4.40-5.60); WBC 20.03 X 10*3/uL (4.50-10.00)
[2024-05-31] MEDS: predniSONE 20 MG TAB PO SCH (09:12)
[2024-05-31 09:34] LABS: ALT 36 U/L (10-49); AST 23 U/L (14-35); Albumin 3.5 g/dL (3.8-4.9); Albumin/Globulin Ratio 1.94 Ratio (1.60-3.17); Alkaline Phosphatase 79 U/L (41-126); BUN/Creat Ratio 29.54 Ratio (12.00-20.00); Blood Urea Nitrogen 38.4 mg/dL (9.0-27.0); Calcium 8.6 mg/dL (8.7-10.3); Chloride 99 mmol/L (96-109); Globulin 1.8 g/dL (1.6-3.3); Glucose 87 mg/dL (70-110); Potassium 4.9 mmol/L (3.5-5.5); Sodium 137 mmol/L (135-145); Total Bilirubin 0.2 mg/dL (0.3-1.2); Total Protein 5.3 g/dL (6.2-8.2)
[2024-05-31 09:59] LABS: Basophils # (A) 0.02 X 10*3/uL (0.00-0.10); Basophils % (A) 0.1 %; Eosinophils # (A) 0.02 X 10*3/uL (0.04-0.35); Eosinophils % (A) 0.1 %; Lymphocytes # (A) 3.08 X 10*3/uL (0.90-5.00); Lymphocytes % (A) 15.4 %; Monocytes # (A) 2.05 X 10*3/uL (0.20-1.00); Monocytes % (A) 10.2 %; Neutrophils # (A) 14.52 X 10*3/uL (1.80-7.70); Neutrophils % (A) 72.5 %
[2024-05-31] MEDS: CALAMINE/ZINC OXIDE LOTION 177 ML BTL TOPICAL PRN (10:33)
--- NOTE | 2024-05-31 13:23 | P.PN ---
Subjective Progress Note Date: 05/31/24 Principal diagnosis: Reason for follow-up is right leg wound cellulitis and rash Patient is a 73-year-old male with multiple comorbidities including hypertension osteoarthritis recent admission to the hospital with COVID-19 and the patient also have a right lower extremity wound with second cellulitis culture positive for MRSA, patient now presenting to the hospital with generalized itchy rash and apparently patient has been diagnosed with allergic dermatitis in the outpatient setting by narcotics and/or vice detective On today's evaluation that is 05/31/2024, the patient continues to be afebrile, the patient is on room air and breathing comfortably, the Pt denies having any chest pain or cough, the patient continued complaining of significant itching and apparently has not seen improvement with the ivermectin no vomiting or diarrhea. Patient white count is 20.03, creatinine is 1.3 Objective - Vital Signs Vital signs: Vital Signs Temp 98.1 F 05/31/24 06:55 Pulse 61 05/31/24 06:55 Resp 18 05/31/24 11:25 BP 137/65 05/31/24 06:55 Pulse Ox 96 05/31/24 06:55 FiO2 Intake & Output 05/30/24 05/31/24 05/31/24 18:59 06:59 18:59 Intake Total 500 1460 Balance 500 1460 Intake: Intake, IV Titration 500 Amount Vancomycin 2,250 mg In 500 Sodium Chloride 0.9% 500 ml 500 ml @ 167 mls/hr IVPB Q16H [facility] Rx#: [id number] Oral 500 960 Other: Voiding Method Toilet Toilet Toilet Urinal Urinal Urinal # Voids 3 1 - Labs CBC & Chem 7: 05/31/24 05:55 05/31/24 05:55 Labs: Abnormal Lab Results - Last 24 Hours (Table) 05/31/24 05/31/24 Range/Units 05:55 05:55 WBC 20.03 H (4.50-10.00) X 10*3/uL RBC 4.29 L (4.40-5.60) X 10*6/uL Hgb 11.8 L (13.0-17.0) g/dL Hct 36.9 L (39.6-50.0) % RDW 20.0 H (11.5-14.5) % Immature Gran # 0.34 H (0.00-0.04) X 10*3/uL Neutrophils # 14.52 H (1.80-7.70) X 10*3/uL Monocytes # 2.05 H (0.20-1.00) X 10*3/uL Eosinophils # 0.02 L (0.04-0.35) X 10*3/uL BUN 38.4 H (9.0-27.0) mg/dL Est GFR (CKD-EPI) 59 L (>=60) BUN/Creatinine Ratio 29.54 H (12.00-20.00) Ratio Calcium 8.6 L (8.7-10.3) mg/dL Total Bilirubin 0.2 L (0.3-1.2) mg/dL Total Protein 5.3 L (6.2-8.2) g/dL Albumin 3.5 L (3.8-4.9) g/dL Assessment and Plan (1) Leg wound, right Current Visit: Yes Status: Acute Code(s): S81.801A - UNSPECIFIED OPEN WOUND, RIGHT LOWER LEG, INITIAL ENCOUNTER SNOMED Code(s): 29025979677271171 (2) Drug rash Current Visit: Yes Status: Acute Code(s): L27.0 - GEN SKIN ERUPTION DUE TO DRUGS AND MEDS TAKEN INTERNALLY SNOMED Code(s): 66091766 (3) Cellulitis of right leg Current Visit: No Status: Acute Code(s): L03.115 - CELLULITIS OF RIGHT LOWER LIMB SNOMED Code(s): 52266354060123104 Plan: 1-patient wound to the right lower extremity previous culture positive for MRSA seems to be healing, local culture currently growing MRSA and the patient is covered with the vancomycin pharmacy to dose will watch his kidney function closely. Will apply Aquacel dressing to the right lower extremity wound changed q. 48-hour 2patient with diffuse rash with initial report of possible allergic dermatitis consideration was for possible related to losartan which has been discontinued however now report from the dermatology with a diagnosis of scabies patient has received a dose of ivermectin, still complaining of significant itching has been advised permethrin cream which he has refused 3-patient right leg wound is almost healed and the wound to the right posterior shoulder is healing we will continue local wound care with Aquacel silver dressing discontinue vancomycin and the patient received adequate antibiotic therapy for second infection Dictation was produced using [employer] dictation software. please excuse any grammatical, word or spelling errors. Time with Patient: Less than 30
--- NOTE | 2024-05-31 14:49 | P.DS ---
Providers Date of admission: 05/20/24 20:30 Expected date of discharge: 06/03/24 Attending physician: Johnny Lane Consults: 05/20/24 20:35 Consult Physician Routine Consulting Provider: Matteo Medina Consult Reason/Comments: MRSA infection Do you want consulting provider notified?: Yes, Notify in am Primary care physician: Johnny Lane Hospital Course: HISTORY OF PRESENT ILLNESS: This is a 73-year-old male one of my patient with a previous medical history significant for hypertension and hypertensive cardiovascular disease, hyperlipidemia, obesity with obstructive sleep apnea, history of chronic alcohol use and dependence with the peripheral neuropathy, significant spondylosis of the lumbar spine with spinal stenosis and significant chronic low back pain, patient was recently hospitalized at [facility] about a month ago for MRSA cellulitis of the left lower extremity along with multiple wounds secondary to him being picking on his skin along with significant rash that he was seen dermatology for and he was diagnosed with allergic dermatitis and he was supposed to be on steroid cream as well as oral medications patient done well however patient also was diagnosed with COVID-19 in the last hospital admission he was treated with IV steroid and he was sent back to his assisted living at [facility], patient was supposed to come to the office for follow-up, he never made the post hospital follow-up, however the patient's visiting nurse called the office yesterday stated the patient is complaining of significant rash all over his body and is continues to pick at his skin, and he has multiple scabbed wounds all over his body 1 in the right shoulder, and multiple ones in the abdomen and both lower extremities, at that time we had contacted the pharmacy and called a steroid along with hydroxyzine 10 mg orally twice every day as well as a Medrol Dosepak, however the patient never picked up the prescription he ended up showing up to the ER for evaluation, I received a phone call from the emergency room physician yesterday stating the patient has significant rash all over his body associated with increased wound on the right shoulder as well as abdomen as well as lower extremity with different stages of healing because of the prior history of MRSA infection he was started on IV antibiotic in the form of vancomycin, I started the patient on Solu-Medrol 40 mg IV push every 8 hours, will place the patient on Benadryl 25 mg IV push every 6 hours, montelukast 10 mg once every day, and also placed the patient on famotidine 20 mg once every day, we will apply triamcinolone cream 0.1% to be applied twice every day to the affected area, infectious disease consultation was obtained I believe the patient will need to follow-up with dermatology for further evaluation recommendation. 05/22: Patient is sitting up in a chair in no apparent distress, he continues to have significant scratching all over his body, he continues to have a wound to the right shoulder, he has been getting IV antibiotic in the form of vancomycin, infectious disease following, he will be seen in consultation by wound care for wound care management, we will continue to follow-up with the patient very closely continue famotidine, continue Solu-Medrol, continue montelukast, continue with Benadryl, patient will need to follow-up with his director of pupil personnel program Dr. Knapp as an outpatient. 05/23: Patient is sitting up in a chair he continues to be scratching all over his body, he continues to have issues with significant skin eruptions especially on his back the chest torso both lower extremities, continue Solu-Medrol 40 mg IV push every 8 hours, continue famotidine 20 mg once every day, continue Benadryl [id number], continue triamcinolone cream, we will follow-up with the patient very closely. Patient was seen by wound care team and will continue current treatment plan. 05/24: Patient is laying down in bed he continues to have significant itching in upper torso abdomen lower extremities better today, his Solu-Medrol was increased to 60 mg a push every 6 hours, discontinue losartan as it might be the culprit because of the reaction I will discontinue Lexapro as well, continue patient on mirtazapine 30 mg orally once every day, monitor the patient very closely, I will discontinue Benadryl start the patient on hydroxyzine 10 mg orally 3 times every day, continue famotidine 20 mg once every day, continue other treatment plan, monitor the patient very closely. Continue to apply triamcinolone cream twice every day, follow-up with dermatology as an outpatient. 05/25: Patient is sitting up in a chair feeling a bit better, he continues to have significant scabs in upper and lower extremities torso and abdomen, better than yesterday, I made sure the patient got his triamcinolone myself today and he is going to continue to take it twice every day, continue hydroxyzine 10 mg orally 3 times every day continue Solu-Medrol 60 mg IV push every 6 hours, continue montelukast 10 mg once every day continue famotidine 20 mg once every day continue to monitor the patient very closely, patient has an appointment to go see his director of pupil personnel program next week, will continue current treatment plan, discontinued losartan yesterday increase amlodipine discontinue Namenda, discontinue mirtazapine, try to minimize the medication that he is taking to see if the patient is having allergic reaction to certain medication that he was started on. 05/26: Patient sitting up in the chair is feeling a bit better today, he continues to have significant rash on the torso and abdomen but is better than yesterday, I recommended for the patient to continue seeing the triamcinolone cream to be applied twice every day, I will continue Solu-Medrol 60 mg IV push every 6 hours, continue Singulair, continue famotidine, give the patient off losartan Namenda and mirtazapine patient has an appointment with dermatology next Monday at 10:45 in the morning, patient did have a biopsy to the skin before, rule out excoriation normal disorder or picking disease disorder that this patient may have beside allergic dermatitis and if that is the case patient need to be followed by psychiatry for behavioral therapy and cognitive behavioral therapy along with restarting back selective serotonin reuptake inhibitor such as fluoxetine versus escitalopram. Meanwhile as the patient progresses we will order a battery of laboratory evaluation including immunoglobulin IgG, IgM, IgE, IgD, and IgA, check thyroid function test with reflex to free T4, check hemoglobin A1c, check iron with ferritin level, check serum protein electrophoresis, check kappa and lambda light chain in the serum, check sed rate, and check vitamin D level, we will follow-up with the patient very closely. 05/27: Patient is sitting up in the chair he continues to have a significant rash in the upper and lower abdomen upper and lower extremities, better he continues to be on steroid, he denies any abdominal pain, nausea vomiting or diarrhea he continues to be somewhat hypertensive, we will decrease his Solu-Medrol to 40 mg IV push every 8 hours will discuss with dermatology other options of treatment. 05/28: Patient is sitting up in chair no apparent distress, I received a call from his director of pupil personnel program today stating that the patient has scabies, she recommended for the patient to go on ivermectin 0.2 mg/kg per dose x 2 doses every 14 days, patient will be getting 29 mg now and into the 2 weeks again based on his body weight, I will decrease his Solu-Medrol to 40 mg IV push every 8 hours, will try to wean him off the steroid, will continue to monitor the patient very closely, his blood pressure continue to be elevated at this time, we will continue to monitor the patient blood pressure very closely, currently on metoprolol ER 50 mg once every day and amlodipine 10 mg once every day, may need to restarted back on losartan 100 mg once every day. 05/29: Patient is sitting up in the chair he continues to itch all over his body, continue to have scabs all over his body as well, he has been receiving vancomycin due to his MRSA, we will decrease his Solu-Medrol to 40 mg IV push ev amy 12 hours, he did receive ivermectin 30 mg p.o. x 1 yesterday, will repeat this in the next 2 weeks, patient will continue to be treated for MRSA infection as well as his scabies, we will continue to follow the patient very closely, likely will discharge the patient in the next 1 or 2 days 05/30: Patient is sitting up in a chair sitting on better today, he is having less itching, continue to have minimal scratching in the back only his legs are much better are much better, he did receive 30 mg of ivermectin, he is doing a lot better continue with IV vancomycin for the MRSA infection, 1 more day and the patient can be discharged home in the next 24 hours if okay with infectious disease. 05/31: Patient is doing better, continue current treatment plan, discontinue prednisone, discontinue vancomycin as per infectious's recommendation and discharge the patient home with follow-up with me as an outpatient in the next week. Patient wanted to dispute the discharge patient is medically stable to get out of the hospital at this time I am proceeding with a discharge as the patient does not have any medical need to be in the hospital at this point he already has a place at [facility] [place] we are going to provide him with a cab in the hospital before it therefore the patient is discharged and I called all his prescription to his pharmacy I gave him instructions about it I will make cuenca re I follow-up with the patient in my office early next week 06/01: Patient is complaining of significant itching today, he had contacted his director of pupil personnel program Dr. Perez office will give me a call and stated that the patient need to go on prednisone 60 mg daily for 3 days then 50 mg daily for 3 days then 40 mg daily for a week then 30 mg daily for a week then 20 mg daily for a week then 10 mg for a week after that, and she will try to see the patient in the office upon discharge hopefully sometimes next week, patient refused to discharge at this point in time, patient continued to have significant itching all over his body, I will apply permethrin cream to be applied from the neck down for 8 hours and then wash his skin down in the shower. 06/02: Patient did receive permethrin 5% cream yesterday did receive prednisone 60 mg orally once every day, he continues to have some itching last night, started on clobetasol cream 0.05% to be applied twice every day, continue with famotidine, continue with montelukast, continue with other treatment plan, likely the patient will be discharged home in the next 24 hours, he will take his next dose of ivermectin June 11, he will follow-up with his director of pupil personnel program as an outpatient this coming week. I will try to see the patient my office on Monday. 06/03: Patient is doing a lot better today, he denies any chest pain, shortness of breath, his itching is a lot better than he was, he did receive permethrin cream 5% over the weekend, he is due to receive 30 mg of ivermectin on June 11, 2024 as a second dose 14 days apart from the previous dose he will follow-up with his director of pupil personnel program as an outpatient next he will follow-up with me in the office on Monday afternoon. Discharge diagnoses: 1. Uncrusted scabies with MRSA infection. 2. Right lower extremity stasis dermatitis with multiple venous ulcers that scabbed off positive for MRSA with sepsis. 3. Hypertension and hypertensive cardiovascular disease. 4. Hyperlipidemia. 5. Vascular dementia. 6. Allergic rhinitis. 7. 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 8. Bilateral lower extremity neuropathy 9. Depression patient declines this. 10. Leukocytosis likely reactive due to combination of scabies and steroid use. 11. Prerenal azotemia due to prolonged steroid use and the use of diuretics. 12. Obesity. 13. Severe pruritus due to scabies. Patient Condition at Discharge: Stable Plan - Discharge Summary New Discharge Prescriptions: New Lactulose [Cephulac] 20 gm PO BID #1800 ml Losartan [Cozaar] 100 mg PO DAILY #90 tab Potassium Chloride ER [K-Dur 20] 20 meq PO DAILY #90 tab Triamcinolone 0.1% Cream [Kenalog 0.1% Cream] 1 applic TOPICAL BID #60 each amLODIPine [Norvasc] 10 mg PO DAILY #90 tab Sennosides-Docusate Sodium [Senokot-S] 1 each PO BID PRN tab PRN Reason: Constipation Montelukast [Singulair] 10 mg PO HS #90 tab Ivermectin [Stromectol] 30 mg PO [id number] #[id number] tab Metoprolol Succinate (ER) [Toprol XL] 50 mg PO DAILY #90 tab predniSONE 0 mg PO DIRECTED #85 tab Calamine/Zinc Oxide Lotion [Calamine Lotion] 1 applic TOPICAL BID PRN each PRN Reason: Skin Irritation Furosemide [Lasix] 40 mg PO DAILY #90 tab hydrOXYzine HCL [Atarax] 25 mg PO TID PRN #90 tab PRN Reason: Itching polyethylene glycoL 3350 [Miralax] 17 gm PO DAILY #30 packet Continue Furosemide [Lasix] 40 mg PO DAILY Atorvastatin [Lipitor] 40 mg PO DAILY tab oxyCODONE-APAP 10-325MG [Percocet 10-325 mg] 1 tab PO Q4H PRN PRN Reason: Pain Famotidine [Pepcid] 20 mg PO HS PRN PRN Reason: acid reflux Pantoprazole [Protonix] 40 mg PO DAILY Pregabalin [Lyrica] 200 mg PO BID Folic Acid 0.8 mg PO DAILY Cetirizine HCl 10 mg PO DAILY Discontinued Memantine [Namenda] 10 mg PO BID tab hydrOXYzine HCL [Atarax] 10 mg PO BID amLODIPine [Norvasc] 5 mg PO DAILY Hydrocortisone Cream [Hydrocortisone 2.5% Cream] 1 applic TOPICAL BID Losartan [Cozaar] 50 mg PO DAILY methylPREDNISolone Dose Pack [Medrol Dose Pack] See Taper PO DIRECTED Discharge Medication List Furosemide [Lasix] 40 mg PO DAILY 04/24/23 [History] Atorvastatin [Lipitor] 40 mg PO DAILY tab 01/12/24 [Rx] Cetirizine HCl 10 mg PO DAILY 05/21/24 [History] Famotidine [Pepcid] 20 mg PO HS PRN 05/21/24 [History] Folic Acid 0.8 mg PO DAILY 05/21/24 [History] Pantoprazole [Protonix] 40 mg PO DAILY 05/21/24 [History] Pregabalin [Lyrica] 200 mg PO BID 05/21/24 [History] oxyCODONE-APAP 10-325MG [Percocet 10-325 mg] 1 tab PO Q4H PRN 05/21/24 [History] Calamine/Zinc Oxide Lotion [Calamine Lotion] 1 applic TOPICAL BID PRN each 05/31/24 [Rx] Furosemide [Lasix] 40 mg PO DAILY #90 tab 05/31/24 [Rx] Ivermectin [Stromectol] 30 mg PO [id number] #10 tab 05/31/24 [Rx] Lactulose [Cephulac] 20 gm PO BID #1800 ml 05/31/24 [Rx] Losartan [Cozaar] 100 mg PO DAILY #90 tab 05/31/24 [Rx] Metoprolol Succinate (ER) [Toprol XL] 50 mg PO DAILY #90 tab 05/31/24 [Rx] Montelukast [Singulair] 10 mg PO HS #90 tab 05/31/24 [Rx] Potassium Chloride ER [K-Dur 20] 20 meq PO DAILY #90 tab 05/31/24 [Rx] Sennosides-Docusate Sodium [Senokot-S] 1 each PO BID PRN tab 05/31/24 [Rx] Triamcinolone 0.1% Cream [Kenalog 0.1% Cream] 1 applic TOPICAL BID #60 each 05/31/24 [Rx] amLODIPine [Norvasc] 10 mg PO DAILY #90 tab 05/31/24 [Rx] hydrOXYzine HCL [Atarax] 25 mg PO TID PRN #90 tab 06/03/24 [Rx] polyethylene glycoL 3350 [Miralax] 17 gm PO DAILY #30 packet 06/03/24 [Rx] predniSONE 0 mg PO DIRECTED #85 tab 06/03/24 [Rx] Follow up Appointment(s)/Referral(s): Johnny Lane MD [Primary Care Provider] - 1 Week (office not answering please call to schedule appointment ) Francia Rueda,Home Care [NON-STAFF] - As Needed (Francia Rueda will call you to schedule your in home visits for nursing, physical therapy, occupational therapy, and aide services. ) Patient Instructions/Handouts: MRSA (Methicillin-Resistant Staphylococcus Aureus) (DC), Scabies (DC), Scabies (GEN) Discharge Disposition: HOME WITH HOME HEALTH SERVICES
[2024-06-01 05:33] LABS: African American GFR (CKD) >90 (>60 ml/min/1.73 sqM); Non-African American GFR(CKD) 79 (>60 ml/min/1.73 sqM)
[2024-06-01] MEDS: predniSONE 20 MG TAB PO STA (10:45)
--- NOTE | 2024-06-01 11:08 | P.PN ---
Subjective Progress Note Date: 05/31/24 Chief Complaint: Recurrent MRSA infection HISTORY OF PRESENT ILLNESS: This is a 73-year-old male one of my patient with a previous medical history significant for hypertension and hypertensive cardiovascular disease, hyperlipidemia, obesity with obstructive sleep apnea, history of chronic alcohol use and dependence with the peripheral neuropathy, significant spondylosis of the lumbar spine with spinal stenosis and significant chronic low back pain, patient was recently hospitalized at [facility] about a month ago for MRSA cellulitis of the left lower extremity along with multiple wounds secondary to him being picking on his skin along with significant rash that he was seen dermatology for and he was diagnosed with allergic dermatitis and he was suppos ed to be on steroid cream as well as oral medications patient done well however patient also was diagnosed with COVID-19 in the last hospital admission he was treated with IV steroid and he was sent back to his assisted living at [facility], patient was supposed to come to the office for follow-up, he never made the post hospital follow-up, however the patient's visiting nurse called the office yesterday stated the patient is complaining of significant rash all over his body and is continues to pick at his skin, and he has multiple scabbed wounds all over his body 1 in the right shoulder, and multiple ones in the abdomen and both lower extremities, at that time we had contacted the pharmacy and called a steroid along with hydroxyzine 10 mg orally twice every day as well as a Medrol Dosepak, however the patient never picked up the prescription he ended up showing up to the ER for evaluation, I received a phone call from the emergency room physician yesterday stating the patient has significant rash all over his body associated with increased wound on the right shoulder as well as abdomen as well as lower extremity with different stages of healing because of the prior history of MRSA infection he was started on IV antibiotic in the form of vancomycin, I started the patient on Solu-Medrol 40 mg IV push every 8 hours, will place the patient on Benadryl 25 mg IV push every 6 hours, montelukast 10 mg once every day, and also placed the patient on famotidine 20 mg once every d ay, we will apply triamcinolone cream 0.1% to be applied twice every day to the affected area, infectious disease consultation was obtained I believe the patient will need to follow-up with dermatology for further evaluation recommendation. 05/22: Patient is sitting up in a chair in no apparent distress, he continues to have significant scratching all over his body, he continues to have a wound to the right shoulder, he has been getting IV antibiotic in the form of vancomycin, infectious disease following, he will be seen in consultation by wound care for wound care management, we will continue to follow-up with the patient very closely continue famotidine, continue Solu-Medrol, continue montelukast, continue with Benadryl, patient will need to follow-up with his mechanism assembler Dr. Knapp as an outpatient. 05/23: Patient is sitting up in a chair he continues to be scratching all over his body, he continues to have issues with significant skin eruptions especially on his back the chest torso both lower extremities, continue Solu-Medrol 40 mg IV push every 8 hours, continue famotidine 20 mg once every day, continue Benadryl [id number], continue triamcinolone cream, we will follow-up with the patient very closely. Patient was seen by wound care team and will continue current treatment plan. 05/24: Patient is laying down in bed he continues to have significant itching in upper torso abdomen lower extremities better today, his Solu-Medrol was increased to 60 mg a push every 6 hours, discontinue losartan as it might be the culprit because of the reaction I will discontinue Lexapro as well, continue patient on mirtazapine 30 mg orally once every day, monitor the patient very closely, I will discontinue Benadryl start the patient on hydroxyzine 10 mg orally 3 times every day, continue famotidine 20 mg once every day, continue other treatment plan, monitor the patient very closely. Continue to apply triamcinolone cream twice every day, follow-up with dermatology as an outpatient. 05/25: Patient is sitting up in a chair feeling a bit better, he continues to have significant scabs in upper and lower extremities torso and abdomen, better than yesterday, I made sure the patient got his triamcinolone myself today and he is going to continue to take it twice every day, continue hydroxyzine 10 mg orally 3 times every day continue Solu-Medrol 60 mg IV push every 6 hours, continue montelukast 10 mg once every day continue famotidine 20 mg once every day continue to monitor the patient very closely, patient has an appointment to go see his mechanism assembler next week, will continue current treatment plan, discontinued losartan yesterday increase amlodipine discontinue Namenda, discontinue mirtazapine, try to minimize the medication that he is taking to see if the patient is having allergic reaction to certain medication that he was started on. 05/26: Patient sitting up in the chair is feeling a bit better today, he continues to have significant rash on the torso and abdomen but is better than yesterday, I recommended for the patient to continue seeing the triamcinolone cream to be applied twice every day, I will continue Solu-Medrol 60 mg IV push every 6 hours, continue Singulair, continue famotidine, give the patient off losartan Namenda and mirtazapine patient has an appointment with dermatology next Monday at 10:45 in the morning, patient did have a biopsy to the skin before, rule out excoriation normal disorder or picking disease disorder that this patient may have beside allergic dermatitis and if that is the case patient need to be followed by psychiatry for behavioral therapy and cognitive behavioral therapy along with restarting back selective serotonin reuptake inhibitor such as fluoxetine versus escitalopram. Meanwhile as the patient progresses we will order a battery of laboratory evaluation including immunoglobulin IgG, IgM, IgE, IgD, and IgA, check thyroid function test with reflex to free T4, check hemoglobin A1c, check iron with ferritin level, check serum protein electrophoresis, check kappa and lambda light chain in the serum, check sed rate, and check vitamin D level, we will follow-up with the patient very closely. 05/27: Patient is sitting up in the chair he continues to have a significant rash in the upper and lower abdomen upper and lower extremities, better he continues to be on steroid, he denies any abdominal pain, nausea vomiting or diarrhea he continues to be somewhat hypertensive, we will decrease his Solu-Medrol to 40 mg IV push every 8 hours will discuss with dermatology other options of treatment. 05/28: Patient is sitting up in chair no apparent distress, I received a call from his mechanism assembler today stating that the patient has scabies, she recommended for the patient to go on ivermectin 0.2 mg/kg per dose x 2 doses every 14 days, patient will be getting 29 mg now and into the 2 weeks again based on his body weight, I will decrease his Solu-Medrol to 40 mg IV push every 8 hours, will try to wean him off the steroid, will continue to monitor the patient very closely, his blood pressure continue to be elevated at this time, we will continue to monitor the patient blood pressure very closely, currently on metoprolol ER 50 mg once every day and amlodipine 10 mg once every day, may need to restarted back on losartan 100 mg once every day. 05/29: Patient is sitting up in the chair he continues to itch all over his body, continue to have scabs all over his body as well, he has been receiving vancomycin due to his MRSA, we will decrease his Solu-Medrol to 40 mg IV push every 12 hours, he did receive ivermectin 30 mg p.o. x 1 yesterday, will repeat this in the next 2 weeks, patient will continue to be treated for MRSA infection as well as his scabies, we will continue to follow the patient very closely, likely will discharge the patient in the next 1 or 2 days 05/30: Patient is sitting up in a chair sitting on better today, he is having less itching, continue to have minimal scratching in the back only his legs are much better are much better, he did receive 30 mg of ivermectin, he is doing a lot better continue with IV vancomycin for the MRSA infection, 1 more day and patient can be discharged home in the next 24 hours if okay with infectious disease. 05/31: I had a long conversation with the patient about he is ready to be discharged from the hospital unfortunately the inside phone sales walked into the office with the paper stating that he can dispute his discharge if he does not feel his ready to get out of the hospital and that exactly what was done the seamus chloe refused to go to the hospital even though the discharge was put in his prescription was sent to [facility] in the [facility], and the patient did not want to leave the hospital and therefore he stayed. REVIEW OF SYSTEMS: Constitutional: No documented fever, no chills, no night sweats. No weight change, no weakness HEENT: No headache. No blurred vision or double vision, no loss of vision. No loss of Hearing, no ringing in the ears, no dizziness. No nasal drainage or congestion. No epistaxis. No sore throat. Lungs: No shortness of breath, no cough, no sputum production. No wheezing. Reports dyspnea with activity. Cardiovascular: No chest pain, no lower extremity edema. No palpitations. No paroxysmal nocturnal dyspnea. No orthopnea. No lightheadedness or dizziness. No syncopal episodes.Positive for nocturia. Abdominal: No abdominal pain. No nausea, vomiting. No diarrhea. No constipation. No bloody or tarry stools . No loss of appetite. Genitourinary: No dysuria, increased frequency, urgency. No urinary retention. Musculoskeletal: positive for neck pain, positive for chronic low back pain, positive for significant pain in both lower extremities with significant neuropathy Integumentary: positive for scabs in both lower extremities due to scabbed venous ulceration that was treated for MRSA infection and right upper shoulder wound that appears to be dry and minimal maculopapular rash on the torso and abdomen less in the upper and lower extremities. Scratch boucher. Neurologic: No aphasia. No facial droop. Memory loss. No head injury. No headache, positive for paresthesia in both lower extremities Psychiatric: Patient denies any depression, he denies any anxiety, he denies any suicidal thoughts or ideation. Endocrine: No abnormal blood sugars, increased weight. PHYSICAL EXAMINATION: General: This is a 73-year-old male who is sitting up in chair in no apparent distress HEENT: Head is atraumatic, normocephalic, pupils were equal round reactive to light and recommendation, extraocular muscle movement were intact, sclera nonicteric, conjunctivae were pale, mucous membranes of the mouth are somewhat dry. Neck: Supple, no JVP, normal carotid upstroke bilaterally, no lymphadenopathy. Chest: Decreased breath sounds at the bases, few rhonchi, no expiratory wheezes, no chest wall tenderness, no intercostal retractions. Heart: First heart sound is normal, second heart sound is normal there is systolic ejection murmur 2/6 located in the left sternal border. Abdomen: Soft, nontender, nondistended, positive bowel sounds, there is no hepatosplenomegaly. Extremities: There is chronic significant venous stasis of right lower extremity with a chronic skin changes dorsalis pedis +1 bilaterally, right lower extremity with open wound and fat exposure with cellulitis Neurologic examination: Patient is awake alert and oriented X 3, cranial nerves II-12 appear grossly intact, muscle power were 4 out of 5 in upper extremities and 3out of 5 in bilateral lower extremities, deep tendon reflexes were depressed bilaterally. Skin examination: Improvement of the maculopapular rash of the torso abdomen upper and lower extremities with wound on the right shoulder and scabs in both lower extremities.. ASSESSMENT AND PLAN: 1. And crusted scabies with MRSA infection. Started the patient on ivermectin 29 mg x 1 now and another dose in 14 days, discontinue Solu-Medrol start the patient on prednisone 40 mg orally once every day, continue vancomycin per pharmacy dose, continue triamcinolone as needed, we will follow-up with the patient very closely. 2. Right lower extremity stasis dermatitis with multiple venous ulcers that is positive for MRSA continue with vancomycin 2225 mg IV piggyback every 16 hours, continue local care. 3. Hypertension and hypertensive cardiovascular disease. Continue patient on amlodipine 10 mg once every day, add metoprolol ER 50 mg orally once every day, continue losartan 100 mg once every day monitor the patient blood pressure very closely. 4. Hyperlipidemia. Continue atorvastatin 40 mg daily. Keep LDL 55-70. 5. Vascular dementia. appears to be better, on the last Mini-Mental status examination patient scored about 28 out of 30. 6. History of chronic alcohol use and dependence. patient has quit 7. 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 Patient on oxycodone 10/325 mg 1 tablet every 4 hours as needed, monitor the patient very closely, Continue Lyrica 200 mg orally twice every day, discontinue Tylenol. 8. Bilateral lower extremity neuropathy continue patient on Lyrica 200 mg orally twice every day. 9. Depression. Feels better, discontinue mirtazapine, and the patient has been off Lexapro as well. Eventually patient may need to be seen by psychiatry for further evaluation of possible excoriation will disorder that is triggered by posttraumatic stress disorder depression or anxiety. 10. DVT prophylaxis. Continue Lovenox 40 mg subcutaneously every 24 hours. 11. GI prophylaxis. Continue Protonix 40 mg orally once every day and famotidine 20 mg orally once every day. 12. Increase activity. 13. Patient is medically stable for discharge. Objective - Vital Signs Vital signs: Vital Signs Temp 98.0 F 06/01/24 08:27 Pulse 67 06/01/24 08:27 Resp 17 06/01/24 08:27 BP 120/66 06/01/24 08:27 Pulse Ox 98 06/01/24 08:27 FiO2 Intake & Output 05/31/24 06/01/24 06/01/24 18:59 06:59 18:59 Intake Total 200 Balance 200 Intake: Oral 200 Other: Voiding Method Toilet Toilet Urinal Urinal # Voids 1 1 - Labs CBC & Chem 7: 05/31/24 05:55 06/01/24 04:30
--- NOTE | 2024-06-01 11:52 | P.PN ---
Subjective Progress Note Date: 06/01/24 Chief Complaint: Recurrent MRSA infection HISTORY OF PRESENT ILLNESS: This is a 73-year-old male one of my patient with a previous medical history significant for hypertension and hypertensive cardiovascular disease, hyperlipidemia, obesity with obstructive sleep apnea, history of chronic alcohol use and dependence with the peripheral neuropathy, significant spondylosis of the lumbar spine with spinal stenosis and significant chronic low back pain, patient was recently hospitalized at [facility] about a month ago for MRSA cellulitis of the left lower extremity along with multiple wounds secondary to him being picking on his skin along with significant rash that he was seen dermatology for and he was diagnosed with allergic dermatitis and he was suppos ed to be on steroid cream as well as oral medications patient done well however patient also was diagnosed with COVID-19 in the last hospital admission he was treated with IV steroid and he was sent back to his assisted living at [facility], patient was supposed to come to the office for follow-up, he never made the post hospital follow-up, however the patient's visiting nurse called the office yesterday stated the patient is complaining of significant rash all over his body and is continues to pick at his skin, and he has multiple scabbed wounds all over his body 1 in the right shoulder, and multiple ones in the abdomen and both lower extremities, at that time we had contacted the pharmacy and called a steroid along with hydroxyzine 10 mg orally twice every day as well as a Medrol Dosepak, however the patient never picked up the prescription he ended up showing up to the ER for evaluation, I received a phone call from the emergency room physician yesterday stating the patient has significant rash all over his body associated with increased wound on the right shoulder as well as abdomen as well as lower extremity with different stages of healing because of the prior history of MRSA infection he was started on IV antibiotic in the form of vancomycin, I started the patient on Solu-Medrol 40 mg IV push every 8 hours, will place the patient on Benadryl 25 mg IV push every 6 hours, montelukast 10 mg once every day, and also placed the patient on famotidine 20 mg once every d ay, we will apply triamcinolone cream 0.1% to be applied twice every day to the affected area, infectious disease consultation was obtained I believe the patient will need to follow-up with dermatology for further evaluation recommendation. 05/22: Patient is sitting up in a chair in no apparent distress, he continues to have significant scratching all over his body, he continues to have a wound to the right shoulder, he has been getting IV antibiotic in the form of vancomycin, infectious disease following, he will be seen in consultation by wound care for wound care management, we will continue to follow-up with the patient very closely continue famotidine, continue Solu-Medrol, continue montelukast, continue with Benadryl, patient will need to follow-up with his tree inspector Dr. Knapp as an outpatient. 05/23: Patient is sitting up in a chair he continues to be scratching all over his body, he continues to have issues with significant skin eruptions especially on his back the chest torso both lower extremities, continue Solu-Medrol 40 mg IV push every 8 hours, continue famotidine 20 mg once every day, continue Benadryl [id number], continue triamcinolone cream, we will follow-up with the patient very closely. Patient was seen by wound care team and will continue current treatment plan. 05/24: Patient is laying down in bed he continues to have significant itching in upper torso abdomen lower extremities better today, his Solu-Medrol was increased to 60 mg a push every 6 hours, discontinue losartan as it might be the culprit because of the reaction I will discontinue Lexapro as well, continue patient on mirtazapine 30 mg orally once every day, monitor the patient very closely, I will discontinue Benadryl start the patient on hydroxyzine 10 mg orally 3 times every day, continue famotidine 20 mg once every day, continue other treatment plan, monitor the patient very closely. Continue to apply triamcinolone cream twice every day, follow-up with dermatology as an outpatient. 05/25: Patient is sitting up in a chair feeling a bit better, he continues to have significant scabs in upper and lower extremities torso and abdomen, better than yesterday, I made sure the patient got his triamcinolone myself today and he is going to continue to take it twice every day, continue hydroxyzine 10 mg orally 3 times every day continue Solu-Medrol 60 mg IV push every 6 hours, continue montelukast 10 mg once every day continue famotidine 20 mg once every day continue to monitor the patient very closely, patient has an appointment to go see his tree inspector next week, will continue current treatment plan, discontinued losartan yesterday increase amlodipine discontinue Namenda, discontinue mirtazapine, try to minimize the medication that he is taking to see if the patient is having allergic reaction to certain medication that he was started on. 05/26: Patient sitting up in the chair is feeling a bit better today, he continues to have significant rash on the torso and abdomen but is better than yesterday, I recommended for the patient to continue seeing the triamcinolone cream to be applied twice every day, I will continue Solu-Medrol 60 mg IV push every 6 hours, continue Singulair, continue famotidine, give the patient off losartan Namenda and mirtazapine patient has an appointment with dermatology next Monday at 10:45 in the morning, patient did have a biopsy to the skin before, rule out excoriation normal disorder or picking disease disorder that this patient may have beside allergic dermatitis and if that is the case patient need to be followed by psychiatry for behavioral therapy and cognitive behavioral therapy along with restarting back selective serotonin reuptake inhibitor such as fluoxetine versus escitalopram. Meanwhile as the patient progresses we will order a battery of laboratory evaluation including immunoglobulin IgG, IgM, IgE, IgD, and IgA, check thyroid function test with reflex to free T4, check hemoglobin A1c, check iron with ferritin level, check serum protein electrophoresis, check kappa and lambda light chain in the serum, check sed rate, and check vitamin D level, we will follow-up with the patient very closely. 05/27: Patient is sitting up in the chair he continues to have a significant rash in the upper and lower abdomen upper and lower extremities, better he continues to be on steroid, he denies any abdominal pain, nausea vomiting or diarrhea he continues to be somewhat hypertensive, we will decrease his Solu-Medrol to 40 mg IV push every 8 hours will discuss with dermatology other options of treatment. 05/28: Patient is sitting up in chair no apparent distress, I received a call from his tree inspector today stating that the patient has scabies, she recommended for the patient to go on ivermectin 0.2 mg/kg per dose x 2 doses every 14 days, patient will be getting 29 mg now and into the 2 weeks again based on his body weight, I will decrease his Solu-Medrol to 40 mg IV push every 8 hours, will try to wean him off the steroid, will continue to monitor the patient very closely, his blood pressure continue to be elevated at this time, we will continue to monitor the patient blood pressure very closely, currently on metoprolol ER 50 mg once every day and amlodipine 10 mg once every day, may need to restarted back on losartan 100 mg once every day. 05/29: Patient is sitting up in the chair he continues to itch all over his body, continue to have scabs all over his body as well, he has been receiving vancomycin due to his MRSA, we will decrease his Solu-Medrol to 40 mg IV push every 12 hours, he did receive ivermectin 30 mg p.o. x 1 yesterday, will repeat this in the next 2 weeks, patient will continue to be treated for MRSA infection as well as his scabies, we will continue to follow the patient very closely, likely will discharge the patient in the next 1 or 2 days 05/30: Patient is sitting up in a chair sitting on better today, he is having less itching, continue to have minimal scratching in the back only his legs are much better are much better, he did receive 30 mg of ivermectin, he is doing a lot better continue with IV vancomycin for the MRSA infection, 1 more day and patient can be discharged home in the next 24 hours if okay with infectious disease. 05/31: I had a long conversation with the patient about he is ready to be discharged from the hospital unfortunately the financial planner walked into the office with the paper stating that he can dispute his discharge if he does not feel his ready to get out of the hospital and that exactly what was done the seamus chloe refused to go to the hospital even though the discharge was put in his prescription was sent to [place] [facility] in the [facility], and the patient did not want to leave the hospital and therefore he stayed. 06/01: Patient is complaining of significant itching today, he had contacted his tree inspector Dr. Perez office will give me a call and stated that the patient need to go on prednisone 60 mg daily for 3 days then 50 mg daily for 3 days then 40 mg daily for a week then 30 mg daily for a week then 20 mg daily for a week then 10 mg for a week after that, and she will try to see the patient in the office upon discharge hopefully sometimes next week, patient refused to discharge at this point in time, patient continued to have significant itching all over his body, I will apply permethrin cream to be applied from the neck down for 8 hours and then wash his skin down in the shower. REVIEW OF SYSTEMS: Constitutional: No documented fever, no chills, no night sweats. No weight change, no weakness HEENT: No headache. No blurred vision or double vision, no loss of vision. No loss of Hearing, no ringing in the ears, no dizziness. No nasal drainage or congestion. No epistaxis. No sore throat. Lungs: No shortness of breath, no cough, no sputum production. No wheezing. Reports dyspnea with activity. Cardiovascular: No chest pain, no lower extremity edema. No palpitations. No paroxysmal nocturnal dyspnea. No orthopnea. No lightheadedness or dizziness. No syncopal episodes.Positive for nocturia. Abdominal: No abdominal pain. No nausea, vomiting. No diarrhea. No constipation. No bloody or tarry stools . No loss of appetite. Genitourinary: No dysuria, increased frequency, urgency. No urinary retention. Musculoskeletal: positive for neck pain, positive for chronic low back pain, positive for significant pain in both lower extremities with significant neuropathy Integumentary: positive for scabs in both lower extremities due to scabbed venous ulceration that was treated for MRSA infection and right upper shoulder wound that appears to be dry and minimal maculopapular rash on the torso and abdomen less in the upper and lower extremities. Scratch boucher. Neurologic: No aphasia. No facial droop. Memory loss. No head injury. No headache, positive for paresthesia in both lower extremities Psychiatric: Patient denies any depression, he denies any anxiety, he denies any suicidal thoughts or ideation. Endocrine: No abnormal blood sugars, increased weight. PHYSICAL EXAMINATION: General: This is a 73-year-old male who is sitting up in chair in no apparent distress HEENT: Head is atraumatic, normocephalic, pupils were equal round reactive to light and recommendation, extraocular muscle movement were intact, sclera nonicteric, conjunctivae were pale, mucous membranes of the mouth are somewhat dry. Neck: Supple, no JVP, normal carotid upstroke bilaterally, no lymphadenopathy. Chest: Decreased breath sounds at the bases, few rhonchi, no expiratory wheezes, no chest wall tenderness, no intercostal retractions. Heart: First heart sound is normal, second heart sound is normal there is systolic ejection murmur 2/6 located in the left sternal border. Abdomen: Soft, nontender, nondistended, positive bowel sounds, there is no hepatosplenomegaly. Extremities: There is chronic significant venous stasis of right lower extremity with a chronic skin changes dorsalis pedis +1 bilaterally, right lower extremity with open wound and fat exposure with cellulitis Neurologic examination: Patient is awake alert and oriented X 3, cranial nerves II-12 appear grossly intact, muscle power were 4 out of 5 in upper extremities and 3out of 5 in bilateral lower extremities, deep tendon reflexes were depressed bilaterally. Skin examination: Improvement of the maculopapular rash of the torso abdomen upper and lower extremities with wound on the right shoulder and scabs in both lower extremities.. ASSESSMENT AND PLAN: 1. Uncrusted scabies with MRSA infection. patient did receive 30 mg of ivermectin and he is scheduled for the next dose in June 11, 2024 patient is to be continued on hydroxyzine 10 mg orally twice every day, con discontinue triamcinolone cream, start the patient on permethrin cream 5% to be applied from the neck down for 8 hours and rinse after that. tinue prednisone 60 mg once every day for 3 days 50 mg once every day for 3 days then 40 mg with a week taper after that follow-up with the dermatology as an outpatient. 2. Right lower extremity stasis dermatitis with multiple venous ulcers that is positive for MRSA patient did receive 10-day course of vancomycin and he was discontinued by infectious disease. 3. Hypertension and hypertensive cardiovascular disease. Continue patient on amlodipine 10 mg once every day, add metoprolol ER 50 mg orally once every day, continue losartan 100 mg once every day monitor the patient blood pressure very closely. 4. Hyperlipidemia. Continue atorvastatin 40 mg daily. Keep LDL 55-70. 5. Vascular dementia. appears to be better, on the last Mini-Mental status examination patient scored about 28 out of 30. 6. History of chronic alcohol use and dependence. patient has quit 7. 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 Patient on oxycodone 10/325 mg 1 tablet every 4 hours as needed, monitor the patient very closely, Continue Lyrica 200 mg orally twice every day. 8. Bilateral lower extremity neuropathy continue patient on Lyrica 200 mg orally twice every day. 9. Depression. Feels better, patient asked to be taken off all his medication including mirtazapine and Lexapro that was recommended by psychiatry last hospital admission about a month ago. 10. DVT prophylaxis. Continue Lovenox 40 mg subcutaneously every 24 hours. 11. GI prophylaxis. Continue Protonix 40 mg orally once every day and famotidine 20 mg orally once every day. 12. Severe pruritus due to scabies. Continue prednisone 60 mg orally once every day, patient will be given permethrin cream 5% to be applied from the neck down for 8 hours and rinse after that. 13. We will continue to follow-up with the patient. Objective - Vital Signs Vital signs: Vital Signs Temp 98.0 F 06/01/24 08:27 Pulse 67 06/01/24 08:27 Resp 17 06/01/24 08:27 BP 120/66 06/01/24 08:27 Pulse Ox 98 06/01/24 08:27 FiO2 Intake & Output 05/31/24 06/01/24 06/01/24 18:59 06:59 18:59 Intake Total 200 Balance 200 Intake: Oral 200 Other: Voiding Method Toilet Toilet Urinal Urinal # Voids 1 1 - Labs CBC & Chem 7: 05/31/24 05:55 06/01/24 04:30
[2024-06-01] MEDS: PERMETHRIN 5% CREAM 60 GM TUBE TOPICAL ONE (12:34)
--- NOTE | 2024-06-01 15:43 | P.PN ---
Subjective Progress Note Date: 06/01/24 Principal diagnosis: Reason for follow-up is right leg wound cellulitis and rash Patient is a 73-year-old male with multiple comorbidities including hypertension osteoarthritis recent admission to the hospital with COVID-19 and the patient also have a right lower extremity wound with second cellulitis culture positive for MRSA, patient now presenting to the hospital with generalized itchy rash and apparently patient has been diagnosed with allergic dermatitis in the outpatient setting by agricultural purchasing agent On today's evaluation that is 06/01/2024, Patient is afebrile patient is currently on room air and denies having any shortness of breath, the patient denies any chest pain or cough, the patient denies any nausea vomiting did not have any abdominal pain and no diarrhea still complaining of significant itch patient finally agreed for the permethrin application this morning. Patient did have a creatinine 0.97 Objective - Vital Signs Vital signs: Vital Signs Temp 97.5 F L 06/01/24 12:37 Pulse 71 06/01/24 12:37 Resp 16 06/01/24 12:37 BP 102/59 06/01/24 12:37 Pulse Ox 95 06/01/24 12:37 FiO2 Intake & Output 05/31/24 06/01/24 06/01/24 18:59 06:59 18:59 Intake Total 200 Balance 200 Intake: Oral 200 Other: Voiding Method Toilet Toilet Urinal Urinal # Voids 1 1 - Exam GENERAL DESCRIPTION: An elderly male up in the chair in no distress RESPIRATORY SYSTEM: Unlabored breathing , decreased breath sounds at bases HEART: S1 S2 regular rate and rhythm , ABDOMEN: Soft , no tenderness Skin examination did shows diffuse rash especially to the trunk a rash to the upper lower extremity has decreased in intensity - Labs CBC & Chem 7: 05/31/24 05:55 06/01/24 04:30 Assessment and Plan (1) Leg wound, right Current Visit: Yes Status: Acute Code(s): S81.801A - UNSPECIFIED OPEN WOUND, RIGHT LOWER LEG, INITIAL ENCOUNTER SNOMED Code(s): 40174112048391989 (2) Drug rash Current Visit: Yes Status: Acute Code(s): L27.0 - GEN SKIN ERUPTION DUE TO DRUGS AND MEDS TAKEN INTERNALLY SNOMED Code(s): 30119678 (3) Cellulitis of right leg Current Visit: No Status: Acute Code(s): L03.115 - CELLULITIS OF RIGHT LOWER LIMB SNOMED Code(s): 93540778513650069 Plan: 1-patient wound to the right lower extremity previous culture positive for MRSA seems to be healing, local culture currently growing MRSA and the patient is covered with the vancomycin pharmacy to dose will watch his kidney function closely. Will apply Aquacel dressing to the right lower extremity wound changed q. 48-hour 2patient with diffuse rash with initial report of possible allergic dermatitis consideration was for possible related to losartan which has been discontinued however now report from the dermatology with a diagnosis of scabies patient has received a dose of ivermectin, still complaining of significant itching, patient was advised permethrin cream yesterday which he initially refused however did agree to wait this morning and has been applied we will see response 3-patient right leg wound is almost healed and the wound to the right posterior shoulder is healing we will continue local wound care with Aquacel silver dressing and no need for further antibiotic therapy at this point Dictation was produced using [employer] dictation software. please excuse any grammatical, word or spelling errors. Time with Patient: Less than 30
[2024-06-02] MEDS: CLOBETASOL PROP 0.05% OINT 15GM TOPICAL SCH (04:51)
[2024-06-02 10:03] LABS: Basophils # (A) 0.04 X 10*3/uL (0.00-0.10); Basophils % (A) 0.2 %; Eosinophils # (A) 0.01 X 10*3/uL (0.04-0.35); Eosinophils % (A) 0.1 %; HCT 34.7 % (39.6-50.0); Lymphocytes # (A) 1.91 X 10*3/uL (0.90-5.00); MCH 28.1 pg (27.0-32.0); MCHC 31.7 g/dL (32.0-37.0); MCV 88.7 FL (80.0-97.0); Mean Platelet Volume 10.3 FL (9.5-12.2); Monocytes # (A) 2.11 X 10*3/uL (0.20-1.00); NRBC Per 100 WBC 0 X 10*3/uL (0.00-0.01); Neutrophils # (A) 14.82 X 10*3/uL (1.80-7.70); Neutrophils % (A) 77.5 %; Platelet Count 257 X 10*3/uL (140-440); RBC 3.91 X 10*6/uL (4.40-5.60); RDW 20.3 % (11.5-14.5); WBC 19.12 X 10*3/uL (4.50-10.00)
[2024-06-02 10:08] LABS: ALT 27 U/L (10-49); AST 22 U/L (14-35); Albumin 3.6 g/dL (3.8-4.9); Albumin/Globulin Ratio 1.89 Ratio (1.60-3.17); Alkaline Phosphatase 72 U/L (41-126); BUN/Creat Ratio 38.09 Ratio (12.00-20.00); Blood Urea Nitrogen 41.9 mg/dL (9.0-27.0); Calcium 8.5 mg/dL (8.7-10.3); Carbon Dioxide 27.8 mmol/L (21.6-31.8); Chloride 100 mmol/L (96-109); Globulin 1.9 g/dL (1.6-3.3); Glucose 92 mg/dL (70-110); Potassium 4.8 mmol/L (3.5-5.5); Sodium 137 mmol/L (135-145); Total Bilirubin 0.3 mg/dL (0.3-1.2); Total Protein 5.5 g/dL (6.2-8.2)
--- NOTE | 2024-06-02 11:26 | P.PN ---
Subjective Progress Note Date: 06/02/24 Chief Complaint: Recurrent MRSA infection HISTORY OF PRESENT ILLNESS: This is a 73-year-old male one of my patient with a previous medical history significant for hypertension and hypertensive cardiovascular disease, hyperlipidemia, obesity with obstructive sleep apnea, history of chronic alcohol use and dependence with the peripheral neuropathy, significant spondylosis of the lumbar spine with spinal stenosis and significant chronic low back pain, patient was recently hospitalized at [facility] about a month ago for MRSA cellulitis of the left lower extremity along with multiple wounds secondary to him being picking on his skin along with significant rash that he was seen dermatology for and he was diagnosed with allergic dermatitis and he was suppos ed to be on steroid cream as well as oral medications patient done well however patient also was diagnosed with COVID-19 in the last hospital admission he was treated with IV steroid and he was sent back to his assisted living at [facility], patient was supposed to come to the office for follow-up, he never made the post hospital follow-up, however the patient's visiting nurse called the office yesterday stated the patient is complaining of significant rash all over his body and is continues to pick at his skin, and he has multiple scabbed wounds all over his body 1 in the right shoulder, and multiple ones in the abdomen and both lower extremities, at that time we had contacted the pharmacy and called a steroid along with hydroxyzine 10 mg orally twice every day as well as a Medrol Dosepak, however the patient never picked up the prescription he ended up showing up to the ER for evaluation, I received a phone call from the emergency room physician yesterday stating the patient has significant rash all over his body associated with increased wound on the right shoulder as well as abdomen as well as lower extremity with different stages of healing because of the prior history of MRSA infection he was started on IV antibiotic in the form of vancomycin, I started the patient on Solu-Medrol 40 mg IV push every 8 hours, will place the patient on Benadryl 25 mg IV push every 6 hours, montelukast 10 mg once every day, and also placed the patient on famotidine 20 mg once every d ay, we will apply triamcinolone cream 0.1% to be applied twice every day to the affected area, infectious disease consultation was obtained I believe the patient will need to follow-up with dermatology for further evaluation recommendation. 05/22: Patient is sitting up in a chair in no apparent distress, he continues to have significant scratching all over his body, he continues to have a wound to the right shoulder, he has been getting IV antibiotic in the form of vancomycin, infectious disease following, he will be seen in consultation by wound care for wound care management, we will continue to follow-up with the patient very closely continue famotidine, continue Solu-Medrol, continue montelukast, continue with Benadryl, patient will need to follow-up with his staging technician Dr. Knapp as an outpatient. 05/23: Patient is sitting up in a chair he continues to be scratching all over his body, he continues to have issues with significant skin eruptions especially on his back the chest torso both lower extremities, continue Solu-Medrol 40 mg IV push every 8 hours, continue famotidine 20 mg once every day, continue Benadryl [id number], continue triamcinolone cream, we will follow-up with the patient very closely. Patient was seen by wound care team and will continue current treatment plan. 05/24: Patient is laying down in bed he continues to have significant itching in upper torso abdomen lower extremities better today, his Solu-Medrol was increased to 60 mg a push every 6 hours, discontinue losartan as it might be the culprit because of the reaction I will discontinue Lexapro as well, continue patient on mirtazapine 30 mg orally once every day, monitor the patient very closely, I will discontinue Benadryl start the patient on hydroxyzine 10 mg orally 3 times every day, continue famotidine 20 mg once every day, continue other treatment plan, monitor the patient very closely. Continue to apply triamcinolone cream twice every day, follow-up with dermatology as an outpatient. 05/25: Patient is sitting up in a chair feeling a bit better, he continues to have significant scabs in upper and lower extremities torso and abdomen, better than yesterday, I made sure the patient got his triamcinolone myself today and he is going to continue to take it twice every day, continue hydroxyzine 10 mg orally 3 times every day continue Solu-Medrol 60 mg IV push every 6 hours, continue montelukast 10 mg once every day continue famotidine 20 mg once every day continue to monitor the patient very closely, patient has an appointment to go see his staging technician next week, will continue current treatment plan, discontinued losartan yesterday increase amlodipine discontinue Namenda, discontinue mirtazapine, try to minimize the medication that he is taking to see if the patient is having allergic reaction to certain medication that he was started on. 05/26: Patient sitting up in the chair is feeling a bit better today, he continues to have significant rash on the torso and abdomen but is better than yesterday, I recommended for the patient to continue seeing the triamcinolone cream to be applied twice every day, I will continue Solu-Medrol 60 mg IV push every 6 hours, continue Singulair, continue famotidine, give the patient off losartan Namenda and mirtazapine patient has an appointment with dermatology next Monday at 10:45 in the morning, patient did have a biopsy to the skin before, rule out excoriation normal disorder or picking disease disorder that this patient may have beside allergic dermatitis and if that is the case patient need to be followed by psychiatry for behavioral therapy and cognitive behavioral therapy along with restarting back selective serotonin reuptake inhibitor such as fluoxetine versus escitalopram. Meanwhile as the patient progresses we will order a battery of laboratory evaluation including immunoglobulin IgG, IgM, IgE, IgD, and IgA, check thyroid function test with reflex to free T4, check hemoglobin A1c, check iron with ferritin level, check serum protein electrophoresis, check kappa and lambda light chain in the serum, check sed rate, and check vitamin D level, we will follow-up with the patient very closely. 05/27: Patient is sitting up in the chair he continues to have a significant rash in the upper and lower abdomen upper and lower extremities, better he continues to be on steroid, he denies any abdominal pain, nausea vomiting or diarrhea he continues to be somewhat hypertensive, we will decrease his Solu-Medrol to 40 mg IV push every 8 hours will discuss with dermatology other options of treatment. 05/28: Patient is sitting up in chair no apparent distress, I received a call from his staging technician today stating that the patient has scabies, she recommended for the patient to go on ivermectin 0.2 mg/kg per dose x 2 doses every 14 days, patient will be getting 29 mg now and into the 2 weeks again based on his body weight, I will decrease his Solu-Medrol to 40 mg IV push every 8 hours, will try to wean him off the steroid, will continue to monitor the patient very closely, his blood pressure continue to be elevated at this time, we will continue to monitor the patient blood pressure very closely, currently on metoprolol ER 50 mg once every day and amlodipine 10 mg once every day, may need to restarted back on losartan 100 mg once every day. 05/29: Patient is sitting up in the chair he continues to itch all over his body, continue to have scabs all over his body as well, he has been receiving vancomycin due to his MRSA, we will decrease his Solu-Medrol to 40 mg IV push every 12 hours, he did receive ivermectin 30 mg p.o. x 1 yesterday, will repeat this in the next 2 weeks, patient will continue to be treated for MRSA infection as well as his scabies, we will continue to follow the patient very closely, likely will discharge the patient in the next 1 or 2 days 05/30: Patient is sitting up in a chair sitting on better today, he is having less itching, continue to have minimal scratching in the back only his legs are much better are much better, he did receive 30 mg of ivermectin, he is doing a lot better continue with IV vancomycin for the MRSA infection, 1 more day and patient can be discharged home in the next 24 hours if okay with infectious disease. 05/31: I had a long conversation with the patient about he is ready to be discharged from the hospital unfortunately the urban and regional planner walked into the office with the paper stating that he can dispute his discharge if he does not feel his ready to get out of the hospital and that exactly what was done the seamus chloe refused to go to the hospital even though the discharge was put in his prescription was sent to [facility] in the [facility], and the patient did not want to leave the hospital and therefore he stayed. 06/01: Patient is complaining of significant itching today, he had contacted his staging technician Dr. Perez office will give me a call and stated that the patient need to go on prednisone 60 mg daily for 3 days then 50 mg daily for 3 days then 40 mg daily for a week then 30 mg daily for a week then 20 mg daily for a week then 10 mg for a week after that, and she will try to see the patient in the office upon discharge hopefully sometimes next week, patient refused to discharge at this point in time, patient continued to have significant itching all over his body, I will apply permethrin cream to be applied from the neck down for 8 hours and then wash his skin down in the shower. 06/02: Patient did receive permethrin 5% cream yesterday did receive prednisone 60 mg orally once every day, he continues to have some itching last night, started on clobetasol cream 0.05% to be applied twice every day, continue with famotidine, continue with montelukast, continue with other treatment plan, likely the patient will be discharged home in the next 24 hours, he will take his next dose of ivermectin June 11, he will follow-up with his staging technician as an outpatient this coming week. I will try to see the patient my office on Monday. REVIEW OF SYSTEMS: Constitutional: No documented fever, no chills, no night sweats. No weight change, no weakness HEENT: No headache. No blurred vision or double vision, no loss of vision. No loss of Hearing, no ringing in the ears, no dizziness. No nasal drainage or congestion. No epistaxis. No sore throat. Lungs: No shortness of breath, no cough, no sputum production. No wheezing. Reports dyspnea with activity. Cardiovascular: No chest pain, no lower extremity edema. No palpitations. No paroxysmal nocturnal dyspnea. No orthopnea. No lightheadedness or dizziness. No syncopal episodes.Positive for nocturia. Abdominal: No abdominal pain. No nausea, vomiting. No diarrhea. No constipation. No bloody or tarry stools . No loss of appetite. Genitourinary: No dysuria, increased frequency, urgency. No urinary retention. Musculoskeletal: positive for neck pain, positive for chronic low back pain, positive for significant pain in both lower extremities with significant neuropathy Integumentary: positive for scabs in both lower extremities due to scabbed venous ulceration that was treated for MRSA infection and right upper shoulder wound that appears to be dry and minimal maculopapular rash on the torso and abdomen less in the upper and lower extremities. Scratch boucher. Neurologic: No aphasia. No facial droop. Memory loss. No head injury. No headache, positive for paresthesia in both lower extremities Psychiatric: Patient denies any depression, he denies any anxiety, he denies any suicidal thoughts or ideation. Endocrine: No abnormal blood sugars, increased weight. PHYSICAL EXAMINATION: General: This is a 73-year-old male who is sitting up in chair in no apparent distress HEENT: Head is atraumatic, normocephalic, pupils were equal round reactive to light and recommendation, extraocular muscle movement were intact, sclera nonicteric, conjunctivae were pale, mucous membranes of the mouth are somewhat dry. Neck: Supple, no JVP, normal carotid upstroke bilaterally, no lymphadenopathy. Chest: Decreased breath sounds at the bases, few rhonchi, no expiratory wheezes, no chest wall tenderness, no intercostal retractions. Heart: First heart sound is normal, second heart sound is normal there is systolic ejection murmur 2/6 located in the left sternal border. Abdomen: Soft, nontender, nondistended, positive bowel sounds, there is no hepatosplenomegaly. Extremities: There is chronic significant venous stasis of right lower extremity with a chronic skin changes dorsalis pedis +1 bilaterally, right lower extremity with open wound and fat exposure with cellulitis Neurologic examination: Patient is awake alert and oriented X 3, cranial nerves II-12 appear grossly intact, muscle power were 4 out of 5 in upper extremities and 3out of 5 in bilateral lower extremities, deep tendon reflexes were depressed bilaterally. Skin examination: Improvement of the maculopapular rash of the torso abdomen upper and lower extremities with wound on the right shoulder and scabs in both lower extremities.. ASSESSMENT AND PLAN: 1. Uncrusted scabies with MRSA infection. patient did receive 30 mg of ivermectin and he is scheduled for the next dose in June 11, 2024 patient is t o be continued on hydroxyzine 10 mg orally twice every day, con discontinue triamcinolone cream, start the patient on permethrin cream 5% to be applied from the neck down for 8 hours and rinse after that. tinue prednisone 60 mg once every day for 3 days 50 mg once every day for 3 days then 40 mg with a week taper after that follow-up with the dermatology as an outpatient. 2. Right lower extremity stasis dermatitis with multiple venous ulcers that is positive for MRSA patient did receive 10-day course of vancomycin and he was discontinued by infectious disease. 3. Hypertension and hypertensive cardiovascular disease. Continue patient on amlodipine 10 mg once every day, add metoprolol ER 50 mg orally once every day, continue losartan 100 mg once every day monitor the patient blood pressure very closely. 4. Hyperlipidemia. Continue atorvastatin 40 mg daily. Keep LDL 55-70. 5. Vascular dementia. appears to be better, on the last Mini-Mental status examination patient scored about 28 out of 30. 6. History of chronic alcohol use and dependence. patient has quit 7. 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 Patient on oxycodone 10/325 mg 1 tablet every 4 hours as needed, monitor the patient very closely, Continue Lyrica 200 mg orally twice every day. 8. Bilateral lower extremity neuropathy continue patient on Lyrica 200 mg o rally twice every day. 9. Depression. Feels better, patient asked to be taken off all his medication including mirtazapine and Lexapro that was recommended by psychiatry last hospital admission about a month ago. 10. DVT prophylaxis. Continue Lovenox 40 mg subcutaneously every 24 hours. 11. GI prophylaxis. Continue Protonix 40 mg orally once every day and famotidine 20 mg orally once every day. 12. Severe pruritus due to scabies. Continue prednisone 60 mg orally once every day, patient will be given permethrin cream 5% to be applied from the neck down for 8 hours and rinse after that. 13. leukocytosis likely reactive due to scabies as well as steroid use we will continue to repeat CBC in the next 24 hours and monitored as an outpatient. 14. Likely discharge home tomorrow morning. Objective - Vital Signs Vital signs: Vital Signs Temp 97.6 F 06/02/24 07:26 Pulse 73 06/02/24 07:26 Resp 16 06/02/24 07:26 BP 159/68 06/02/24 07:26 Pulse Ox 100 06/02/24 07:26 FiO2 Intake & Output 06/01/24 06/02/24 06/02/24 18:59 06:59 18:59 Other: Voiding Method Toilet # Voids 3 2 - Labs CBC & Chem 7: 06/02/24 05:28 06/02/24 05:28 Labs: Abnormal Lab Results - Last 24 Hours (Table) 06/02/24 06/02/24 Range/Units 05:28 05:28 WBC 19.12 H (4.50-10.00) X 10*3/uL RBC 3.91 L (4.40-5.60) X 10*6/uL Hgb 11.0 L (13.0-17.0) g/dL Hct 34.7 L (39.6-50.0) % MCHC 31.7 L (32.0-37.0) g/dL RDW 20.3 H (11.5-14.5) % Immature Gran # 0.23 H (0.00-0.04) X 10*3/uL Neutrophils # 14.82 H (1.80-7.70) X 10*3/uL Monocytes # 2.11 H (0.20-1.00) X 10*3/uL Eosinophils # 0.01 L (0.04-0.35) X 10*3/uL BUN 41.9 H (9.0-27.0) mg/dL BUN/Creatinine Ratio 38.09 H (12.00-20.00) Ratio Calcium 8.5 L (8.7-10.3) mg/dL Total Protein 5.5 L (6.2-8.2) g/dL Albumin 3.6 L (3.8-4.9) g/dL
--- NOTE | 2024-06-02 16:16 | P.PN ---
Subjective Progress Note Date: 06/02/24 Principal diagnosis: Reason for follow-up is right leg wound cellulitis and rash Patient is a 73-year-old male with multiple comorbidities including hypertension osteoarthritis recent admission to the hospital with COVID-19 and the patient also have a right lower extremity wound with second cellulitis culture positive for MRSA, patient now presenting to the hospital with generalized itchy rash and apparently patient has been diagnosed with allergic dermatitis in the outpatient setting by log chipper On today's evaluation that is 06/02/2024, patient has been afebrile, patient is breathing comfortably and is currently on room air, patient denies having any significant cough no chest pain shortness of breath, patient denies nausea vomiting or diarrhea and no abdominal pain patient did mention improvement today reaching. Patient white count is 19.12, creatinine is 1.1 Objective - Vital Signs Vital signs: Vital Signs Temp 98.6 F 06/02/24 13:32 Pulse 71 06/02/24 13:32 Resp 18 06/02/24 13:32 BP 99/53 06/02/24 13:32 Pulse Ox 98 06/02/24 13:32 FiO2 Intake & Output 06/01/24 06/02/24 06/02/24 18:59 06:59 18:59 Other: Voiding Method Toilet # Voids 3 2 - Exam GENERAL DESCRIPTION: An elderly male up in the chair in no distress RESPIRATORY SYSTEM: Unlabored breathing , decreased breath sounds at bases HEART: S1 S2 regular rate and rhythm , ABDOMEN: Soft , no tenderness Skin examination did shows diffuse rash especially to the trunk a rash to the upper lower extremity has decreased in intensity - Labs CBC & Chem 7: 06/02/24 05:28 06/02/24 05:28 Labs: Abnormal Lab Results - Last 24 Hours (Table) 06/02/24 06/02/24 Range/Units 05:28 05:28 WBC 19.12 H (4.50-10.00) X 10*3/uL RBC 3.91 L (4.40-5.60) X 10*6/uL Hgb 11.0 L (13.0-17.0) g/dL Hct 34.7 L (39.6-50.0) % MCHC 31.7 L (32.0-37.0) g/dL RDW 20.3 H (11.5-14.5) % Immature Gran # 0.23 H (0.00-0.04) X 10*3/uL Neutrophils # 14.82 H (1.80-7.70) X 10*3/uL Monocytes # 2.11 H (0.20-1.00) X 10*3/uL Eosinophils # 0.01 L (0.04-0.35) X 10*3/uL BUN 41.9 H (9.0-27.0) mg/dL BUN/Creatinine Ratio 38.09 H (12.00-20.00) Ratio Calcium 8.5 L (8.7-10.3) mg/dL Total Protein 5.5 L (6.2-8.2) g/dL Albumin 3.6 L (3.8-4.9) g/dL Assessment and Plan (1) Leg wound, right Current Visit: Yes Status: Acute Code(s): S81.801A - UNSPECIFIED OPEN WOUND, RIGHT LOWER LEG, INITIAL ENCOUNTER SNOMED Code(s): 56601721003195928 (2) Drug rash Current Visit: Yes Status: Acute Code(s): L27.0 - GEN SKIN ERUPTION DUE TO DRUGS AND MEDS TAKEN INTERNALLY SNOMED Code(s): 04397483 (3) Cellulitis of right leg Current Visit: No Status: Acute Code(s): L03.115 - CELLULITIS OF RIGHT LOWER LIMB SNOMED Code(s): 43234920561044776 Plan: 1-patient wound to the right lower extremity previous culture positive for MRSA seems to be healing, local culture currently growing MRSA and the patient is covered with the vancomycin pharmacy to dose will watch his kidney function closely. Will apply Aquacel dressing to the right lower extremity wound changed q. 48-hour 2patient with diffuse rash with initial report of possible allergic dermatitis consideration was for possible related to losartan which has been discontinued however now report from the dermatology with a diagnosis of scabies patient has received a dose of ivermectin, patient also have treatment with permethrin cream and seem to be improving will benefit from repeat treatment in 2 weeks 3-patient right leg wound is almost healed and the wound to the right posterior shoulder is healing we will continue local wound care with Aquacel silver dressing change q. 48-hour 4leukocytosis possibly steroid related and is trending down Dictation was produced using dragon dictation software. please excuse any grammatical, word or spelling errors. Time with Patient: Less than 30
[2024-06-03 08:14] VITALS: BP 144/73; PULSE 63; RESP 18; TEMP 97.3
[2024-06-03 10:26] LABS: ALT 26 U/L (10-49); AST 21 U/L (14-35); Albumin 3.7 g/dL (3.8-4.9); Albumin/Globulin Ratio 2.06 Ratio (1.60-3.17); Alkaline Phosphatase 71 U/L (41-126); BUN/Creat Ratio 41.78 Ratio (12.00-20.00); Blood Urea Nitrogen 37.6 mg/dL (9.0-27.0); Calcium 8.6 mg/dL (8.7-10.3); Carbon Dioxide 30.4 mmol/L (21.6-31.8); Chloride 100 mmol/L (96-109); Globulin 1.8 g/dL (1.6-3.3); Glucose 100 mg/dL (70-110); Potassium 4.5 mmol/L (3.5-5.5); Sodium 138 mmol/L (135-145); Total Bilirubin 0.3 mg/dL (0.3-1.2); Total Protein 5.5 g/dL (6.2-8.2)
[2024-06-03 11:49] LABS: Basophils # (A) 0.01 X 10*3/uL (0.00-0.10); Basophils % (A) 0.1 %; Eosinophils # (A) 0.21 X 10*3/uL (0.04-0.35); Eosinophils % (A) 1.4 %; HCT 36.3 % (39.6-50.0); HGB 11.4 g/dL (13.0-17.0); Lymphocytes # (A) 2.27 X 10*3/uL (0.90-5.00); Lymphocytes % (A) 15.3 %; MCH 27.4 pg (27.0-32.0); MCHC 31.4 g/dL (32.0-37.0); MCV 87.3 FL (80.0-97.0); Mean Platelet Volume 10.3 FL (9.5-12.2); Monocytes # (A) 1.53 X 10*3/uL (0.20-1.00); Monocytes % (A) 10.3 %; NRBC Per 100 WBC 0 X 10*3/uL (0.00-0.01); Neutrophils % (A) 71.7 %; Platelet Count 242 X 10*3/uL (140-440); RBC 4.16 X 10*6/uL (4.40-5.60); RDW 20.3 % (11.5-14.5)
--- NOTE | 2024-06-07 14:43 | P.PN ---
Subjective Progress Note Date: 06/03/24 Principal diagnosis: Reason for follow-up is right leg wound cellulitis and rash Patient is a 73-year-old male with multiple comorbidities including hypertension osteoarthritis recent admission to the hospital with COVID-19 and the patient also have a right lower extremity wound with second cellulitis culture positive for MRSA, patient now presenting to the hospital with generalized itchy rash and apparently patient has been diagnosed with allergic dermatitis in the outpatient setting by breastfeeding program coordinator On today's evaluation that is 06/03/2024, patient continues to be afebrile, patient is breathing comfortably on room air, patient denies having any significant cough no chest pain shortness of breath, patient denies nausea vomiting or diarrhea and no abdominal pain or diarrhea overall itching and rash has decreased in intensity Patient white count is down to 14.80 creatinine is normal Objective - Vital Signs Vital signs: Vital Signs Temp 97.3 F L 06/03/24 08:00 Pulse 63 06/03/24 08:00 Resp 18 06/03/24 08:00 BP 144/73 06/03/24 08:00 Pulse Ox 98 06/03/24 08:00 FiO2 Intake & Output 06/02/24 06/03/24 06/03/24 18:59 06:59 18:59 Other: Voiding Method Toilet Toilet # Voids 3 2 - Exam GENERAL DESCRIPTION: An elderly male up in the chair in no distress RESPIRATORY SYSTEM: Unlabored breathing , decreased breath sounds at bases HEART: S1 S2 regular rate and rhythm , ABDOMEN: Soft , no tenderness Skin examination did shows diffuse rash especially to the trunk a rash to the upper lower extremity has decreased in intensity - Labs CBC & Chem 7: 06/03/24 08:16 06/03/24 08:16 Labs: Abnormal Lab Results - Last 24 Hours (Table) 06/03/24 06/03/24 Range/Units 08:16 08:16 WBC 14.80 H (4.50-10.00) X 10*3/uL RBC 4.16 L (4.40-5.60) X 10*6/uL Hgb 11.4 L (13.0-17.0) g/dL Hct 36.3 L (39.6-50.0) % MCHC 31.4 L (32.0-37.0) g/dL RDW 20.3 H (11.5-14.5) % Immature Gran # 0.18 H (0.00-0.04) X 10*3/uL Neutrophils # 10.60 H (1.80-7.70) X 10*3/uL Monocytes # 1.53 H (0.20-1.00) X 10*3/uL BUN 37.6 H (9.0-27.0) mg/dL BUN/Creatinine Ratio 41.78 H (12.00-20.00) Ratio Calcium 8.6 L (8.7-10.3) mg/dL Total Protein 5.5 L (6.2-8.2) g/dL Albumin 3.7 L (3.8-4.9) g/dL Assessment and Plan (1) Leg wound, right Status: Acute Code(s): S81.801A - UNSPECIFIED OPEN WOUND, RIGHT LOWER LEG, INITIAL ENCOUNTER SNOMED Code(s): 55083253823424163 (2) Drug rash Status: Acute Code(s): L27.0 - GEN SKIN ERUPTION DUE TO DRUGS AND MEDS TAKEN INTERNALLY SNOMED Code(s): 61972542 (3) Cellulitis of right leg Status: Acute Code(s): L03.115 - CELLULITIS OF RIGHT LOWER LIMB SNOMED Code(s): 25750549301309232 Plan: 1-patient wound to the right lower extremity previous culture positive for MRSA seems to be healing, local culture currently growing MRSA and the patient is covered with the vancomycin pharmacy to dose will watch his kidney function closely. Will apply Aquacel dressing to the right lower extremity wound changed q. 48-hour 2patient with diffuse rash with initial report of possible allergic dermatitis consideration was for possible related to losartan which has been discontinued however now report from the dermatology with a diagnosis of scabies patient has received a dose of ivermectin, patient also have treatment with permethrin cream and seem to be improving will benefit from repeat treatment in 2 weeks 3-patient right leg wound is almost healed and the wound to the right posterior shoulder is healing we will continue local wound care with Aquacel silver dressing change q. 48-hour 4leukocytosis possibly steroid related and is trending down to 14.8 today can have a CBC in the outpatient setting, no need for antibiotics on discharge Dictation was produced using [employer] dictation software. please excuse any gra mmatical, word or spelling errors. Time with Patient: Less than 30
== END 2024-06-03 15:59 | disposition home health service (06) | DRG 300 ==
LOC: EC 16:44 → 4SSUR 20:30 → OBSVTOIN 20:30 → 4SSUR 05-21 04:04 → 1SOBS 05-21 11:08 → 4SSUR 05-23 19:07
PROVIDERS: ADMIT Internal Medicine; ATTEND Internal Medicine
DX: I83.019 Varicose veins of right lower extremity with ulcer of unspecified site (principal); F01.53 Vascular dementia, unspecified severity, with mood disturbance; L03.115 Cellulitis of right lower limb; Z68.41 Body mass index [BMI] 40.0-44.9, adult; L97.919 Non-pressure chronic ulcer of unspecified part of right lower leg with unspecified severity; L98.421 Non-pressure chronic ulcer of back limited to breakdown of skin; I11.9 Hypertensive heart disease without heart failure; E03.9 Hypothyroidism, unspecified; E66.9 Obesity, unspecified; G25.81 Restless legs syndrome; B86 Scabies; B95.62 Methicillin resistant Staphylococcus aureus infection as the cause of diseases classified elsewhere; L23.9 Allergic contact dermatitis, unspecified cause; E78.5 Hyperlipidemia, unspecified; G57.93 Unspecified mononeuropathy of bilateral lower limbs; G89.4 Chronic pain syndrome; M47.812 Spondylosis without myelopathy or radiculopathy, cervical region; L27.0 Generalized skin eruption due to drugs and medicaments taken internally; M47.816 Spondylosis without myelopathy or radiculopathy, lumbar region; R29.6 Repeated falls; J30.9 Allergic rhinitis, unspecified; N40.0 Benign prostatic hyperplasia without lower urinary tract symptoms; T38.0X5A Adverse effect of glucocorticoids and synthetic analogues, initial encounter; R79.89 Other specified abnormal findings of blood chemistry; G47.33 Obstructive sleep apnea (adult) (pediatric); Z79.899 Other long term (current) drug therapy; Z86.16 Personal history of COVID-19; Z82.49 Family history of ischemic heart disease and other diseases of the circulatory system
CPT/HCPCS: 36410; 36415; 76937; 80048; 80053; 80202; 81001; 82306; 82565; 82728; 82784; 82785; 83036; 83540; 83550; 83605; 83883; 84165; 84439; 84443; 85025; 85652; 86140; 86334; 86335; 87070; 87075; 87077; 87186; 87205; 96365; 96366; 96375; 99285

== ENCOUNTER 2024-08-17 15:08 | Inpatient (IN) | payer MEDICARE ==
--- NOTE | 2024-08-17 15:40 | ED ---
Extremity Problem HPI - General Chief complaint: Extremity Problem,Nontraumatic Stated complaint: R leg swelling Time Seen by Provider: 08/17/24 15:15 Source: patient, RN notes reviewed, old records reviewed Mode of arrival: wheelchair Limitations: no limitations - History of Present Illness Initial comments: This is a 74-year-old male to the ER for evaluation today. Patient presents today for evaluation of lower extremity edema swelling weakness and redness. Patient has significant decrease in mobility and activity levels with ulcers of the lower extremities and right lower thigh. Patient is not on blood thinners denies history of DVT having no current chest pain or shortness of breath. Patient states he does do his own leg care and he noticed that the pain is getting increased in both lower extremities MD Complaint: extremity pain, extremity swelling -: days(s) Location: left, right, bilateral lower extremity History of Same: Yes Radiation: proximal Severity scale (1-10): 7 Quality: aching, sharp Consistency: constant Improves with: nothing Worsens with: weight bearing, walking Associated Symptoms: denies other symptoms - Related Data Home Medications Medication Instructions Recorded Confirmed Furosemide [Lasix] 40 mg PO DAILY 04/24/23 05/21/24 Cetirizine HCl 10 mg PO DAILY 05/21/24 05/21/24 Famotidine [Pepcid] 20 mg PO HS PRN 05/21/24 05/21/24 Folic Acid 0.8 mg PO DAILY 05/21/24 05/21/24 Pantoprazole [Protonix] 40 mg PO DAILY 05/21/24 05/21/24 Pregabalin [Lyrica] 200 mg PO BID 05/21/24 05/21/24 oxyCODONE-APAP 10-325MG [Percocet 1 tab PO Q4H PRN 05/21/24 05/21/24 10-325 mg] Previous Rx's Medication Instructions Recorded Atorvastatin [Lipitor] 40 mg PO DAILY tab 01/12/24 Calamine/Zinc Oxide Lotion 1 applic TOPICAL BID PRN each 05/31/24 [Calamine Lotion] Furosemide [Lasix] 40 mg PO DAILY #90 tab 05/31/24 Ivermectin [Stromectol] 30 mg PO [id number] #10 tab 05/31/24 Lactulose [Cephulac] 20 gm PO BID #1800 ml 05/31/24 Losartan [Cozaar] 100 mg PO DAILY #90 tab 05/31/24 Metoprolol Succinate (ER) [Toprol 50 mg PO DAILY #90 tab 05/31/24 XL] Montelukast [Singulair] 10 mg PO HS #90 tab 05/31/24 Potassium Chloride ER [K-Dur 20] 20 meq PO DAILY #90 tab 05/31/24 Sennosides-Docusate Sodium 1 each PO BID PRN tab 05/31/24 [Senokot-S] Triamcinolone 0.1% Cream [Kenalog 1 applic TOPICAL BID #60 each 05/31/24 0.1% Cream] amLODIPine [Norvasc] 10 mg PO DAILY #90 tab 05/31/24 hydrOXYzine HCL [Atarax] 25 mg PO TID PRN #90 tab 06/03/24 polyethylene glycoL 3350 [Miralax] 17 gm PO DAILY #30 packet 06/03/24 predniSONE 0 mg PO DIRECTED #85 tab 06/03/24 Allergies Allergy/AdvReac Type Severity Reaction Status Date / Time No Known Allergies Allergy Verified 08/17/24 15:10 Review of Systems ROS Statement: Those systems with pertinent positive or pertinent negative responses have been documented in the HPI. ROS Other: All systems not noted in ROS Statement are negative. Past Medical History Past Medical History: Hypertension, Osteoarthritis (OA) Additional Past Medical History / Comment(s): ETOH abuse, chronic back pain, BLE neuropathy, lymphedema, multiple falls History of Any Multi-Drug Resistant Organisms: MRSA Date of last positivie culture/infection: 04/23/24 MDRO Source:: RT LEG Past Surgical History: Back Surgery, Orthopedic Surgery, Tonsillectomy Additional Past Surgical History / Comment(s): 3 back laminectomies, hand surgery s/p trauma to reattatch tendons Past Anesthesia/Blood Transfusion Reactions: No Reported Reaction Past Psychological History: No Psychological Hx Reported Smoking Status: Never smoker Past Alcohol Use History: Daily, Heavy Past Drug Use History: None Reported - Past Family History Father Family Medical History: Hypertension Mother Family Medical History: Cancer Additional Family Medical History / Comment(s): Lung cancer Brother(s) Family Medical History: No Reported History Sister(s) Family Medical History: Hypertension Daughter(s) Family Medical History: No Reported History General Exam Limitations: no limitations General appearance: alert, in no apparent distress Head exam: Present: atraumatic, normocephalic, normal inspection Eye exam: Present: normal appearance, PERRL, EOMI. Absent: scleral icterus, conjunctival injection, periorbital swelling ENT exam: Present: normal exam, mucous membranes moist Neck exam: Present: normal inspection. Absent: tenderness, meningismus, ly mphadenopathy Respiratory exam: Present: normal lung sounds bilaterally. Absent: respiratory distress, wheezes, rales, rhonchi, stridor Cardiovascular Exam: Present: regular rate, normal rhythm, normal heart sounds. Absent: systolic murmur, diastolic murmur, rubs, gallop, clicks GI/Abdominal exam: Present: soft, normal bowel sounds. Absent: distended, tenderness, guarding, rebound, rigid Extremities exam: Present: normal inspection, full ROM, normal capillary refill. Absent: tenderness, pedal edema, joint swelling, calf tenderness Back exam: Present: normal inspection Neurological exam: Present: alert, oriented X3, CN II-XII intact Psychiatric exam: Present: normal affect, normal mood Skin exam: Present: warm, dry, intact, normal color. Absent: rash Course Vital Signs 08/17/24 15:10 Temperature 97.9 F Pulse Rate 80 Respiratory 20 Rate Blood Pressure 134/59 O2 Sat by Pulse 98 Oximetry - Reevaluation(s) Reevaluation #1: 08/17/24 15:50 Medical records reviewed Reevaluation #2: 08/17/24 18:17 Patient symptoms unchanged Reevaluation #3: 08/17/24 18:17 Patient informed of results questions answered Reevaluation #4: Was pt. sent in by a medical professional or institution (, PA, [employer], urgent ca re, hospital, or skilled nursing...) When possible be specific @ -no Did you speak to anyone other than the patient for history (EMS, parent, family, police, friend...)? What history was obtained from this source @ -no Did you review nursing and triage notes (agree or disagree)? Why? @ -agree Are old charts reviewed (outside hosp., previous admission, EMS record, old EKG, old radiological studies, urgent care reports/EKG's, skilled nursing records)? Report findings @ -yes Differential Diagnosis (chest pain, altered mental status, abdominal pain women, abdominal pain men, vaginal bleeding, weakness, fever, dyspnea, syncope, headache, dizziness, GI bleed, back pain, seizure, CVA, palpatations, mental health, musculoskeletal)? @ -prior EKG interpreted by me (3pts min.). @ -yes X-rays interpreted by me (1pt min.). @ -yes negative for acute disease CT interpreted by me (1pt min.). @ -no U/S interpreted by me (1pt. min.). @ -no What testing was considered but not performed or refused? (CT, X-rays, U/S, labs)? Why? @ -none What meds were considered but not given or refused? Why? @ -none Did you discuss the management of the patient with other professionals (professionals i.e. , PA, [employer], lab, RT, psych nurse, social work job titles, biofuels production manager, teacher, conservation officer, onsite case manager)? Give summary @ -no Was smoking cessation discussed for >3mins.? @ -no Was critical care preformed (if so, how long)? @ -no Were there social determinants of health that impacted care today? How? (Homel essness, low income, unemployed, alcoholism, drug addiction, transportation, low edu. Level, literacy, decrease access to med. care, alf, rehab)? @ -none Was there de-escalation of care discussed even if they declined (Discuss DNR or withdrawal of care, Hospice)? DNR status @ -no What co-morbidities impacted this encounter? (DM, HTN, Smoking, COPD, CAD, Cancer, CVA, ARF, Chemo, Hep., AIDS, mental health diagnosis, sleep apnea, morbid obesity)? @ -none Was patient admitted / discharged? Hospital course, mention meds given and route, prescriptions, significant lab abnormalities, going to OR and other pertinent info. @ - Undiagnosed new problem with uncertain prognosis? @ -no Drug Therapy requiring intensive monitoring for toxicity (Heparin, Nitro, Insulin, Cardizem)? @ -no Were any procedures done? @ -no Diagnosis/symptom? @ - Acute, or Chronic, or Acute on Chronic? @ -Acute Uncomplicated (without systemic symptoms) or Complicated (systemic symptoms)? @ -Complicated Side effects of treatment? @ -no Exacerbation, Progression, or Severe Exacerbation? @ -exacerbation Poses a threat to life or bodily function? How? (Chest pain, [place], [place], pneumonia, PE, COPD, DKA, ARF, appy, cholecystitis, CVA, Diverticulitis, Homicidal, Suicidal, threat to staff... and all critical care pts) @ -yes Reevaluation #5: Differential Weakness: Hypoglycemia, shock, sepsis, hyponatremia, anemia, infection, [place], ETOH, adverse medicine reaction, overdose, stroke, this is not meant to be an all-inclusive list. - Consultations Consultation #1: Spoke with To her who agrees to admit this patient Medical Decision Making - Medical Decision Making 74 male to the ED co bl le edema cellulitis and venous ulcers. Patient will be admitted for IV antibiotics - Lab Data Result diagrams: 08/17/24 16:45 08/17/24 16:45 Lab Results 08/17/24 08/17/24 08/17/24 Range/Units 16:45 16:45 16:45 WBC 9.8 (3.8-10.6) k/uL RBC 3.47 L (4.30-5.90) m/uL Hgb 9.9 L (13.0-17.5) gm/dL Hct 30.8 L (39.0-53.0) % MCV 88.8 (80.0-100.0) fL MCH 28.5 (25.0-35.0) pg MCHC 32.2 (31.0-37.0) g/dL RDW 14.6 (11.5-15.5) % Plt Count 435 (150-450) k/uL MPV 6.8 Neutrophils % 75 % Lymphocytes % 13 % Monocytes % 6 % Eosinophils % 4 % Basophils % 0 % Neutrophils # 7.3 (1.3-7.7) k/uL Lymphocytes # 1.2 (1.0-4.8) k/uL Monocytes # 0.6 (0-1.0) k/uL Eosinophils # 0.4 (0-0.7) k/uL Basophils # 0.0 (0-0.2) k/uL Hypochromasia Slight PT 10.3 (10.0-12.5) sec INR 0.9 (<1.2) APTT 24.4 (22.0-30.0) sec D-Dimer 1.49 H (<0.60) mg/L FEU Sodium (137-145) mmol/L Potassium (3.5-5.1) mmol/L Chloride (98-107) mmol/L Carbon Dioxide (22-30) mmol/L Anion Gap mmol/L BUN (9-20) mg/dL Creatinine (0.66-1.25) mg/dL Est GFR (CKD-EPI)AfAm (>60 ml/min/1.73 sqM) Est GFR (CKD-EPI)NonAf (>60 ml/min/1.73 sqM) Glucose (74-99) mg/dL Plasma Lactic Acid Gerardo (0.7-2.0) mmol/L Calcium (8.4-10.2) mg/dL Phosphorus (2.5-4.5) mg/dL Magnesium (1.6-2.3) mg/dL Total Bilirubin (0.2-1.3) mg/dL AST (17-59) U/L ALT (4-49) U/L Alkaline Phosphatase (38-126) U/L Troponin I (0.000-0.034) ng/mL NT-Pro-B Natriuret Pep pg/mL Total Protein (6.3-8.2) g/dL Albumin (3.5-5.0) g/dL Urine Color Yellow Urine Appearance Clear (Clear) Urine pH 5.5 (5.0-8.0) Ur Specific Jay 1.026 (1.001-1.035) Urine Protein Trace H (Negative) Urine Glucose (UA) Negative (Negative) Urine Ketones Negative (Negative) Urine Blood Negative (Negative) Urine Nitrite Negative (Negative) Urine Bilirubin Negative (Negative) Urine Urobilinogen 2.0 (<2.0) mg/dL Ur Leukocyte Esterase Negative (Negative) 08/17/24 08/17/24 08/17/24 Range/Units 16:45 16:45 16:45 WBC (3.8-10.6) k/uL RBC (4.30-5.90) m/uL Hgb (13.0-17.5) gm/dL Hct (39.0-53.0) % MCV (80.0-100.0) fL MCH (25.0-35.0) pg MCHC (31.0-37.0) g/dL RDW (11.5-15.5) % Plt Count (150-450) k/uL MPV Neutrophils % % Lymphocytes % % Monocytes % % Eosinophils % % Basophils % % Neutrophils # (1.3-7.7) k/uL Lymphocytes # (1.0-4.8) k/uL Monocytes # (0-1.0) k/uL Eosinophils # (0-0.7) k/uL Basophils # (0-0.2) k/uL Hypochromasia PT (10.0-12.5) sec INR (<1.2) APTT (22.0-30.0) sec D-Dimer (<0.60) mg/L FEU Sodium 136 L (137-145) mmol/L Potassium 4.8 (3.5-5.1) mmol/L Chloride 104 (98-107) mmol/L Carbon Dioxide 29 (22-30) mmol/L Anion Gap 3 mmol/L BUN 18 (9-20) mg/dL Creatinine 0.87 (0.66-1.25) mg/dL Est GFR (CKD-EPI)AfAm >90 (>60 ml/min/1.73 sqM) Est GFR (CKD-EPI)NonAf 86 (>60 ml/min/1.73 sqM) Glucose 110 H (74-99) mg/dL Plasma Lactic Acid Gerardo 0.9 (0.7-2.0) mmol/L Calcium 9.2 (8.4-10.2) mg/dL Phosphorus 4.3 (2.5-4.5) mg/dL Magnesium 2.4 H (1.6-2.3) mg/dL Total Bilirubin 0.4 (0.2-1.3) mg/dL AST 22 (17-59) U/L ALT 13 (4-49) U/L Alkaline Phosphatase 72 (38-126) U/L Troponin I <0.012 (0.000-0.034) ng/mL NT-Pro-B Natriuret Pep 89 pg/mL Total Protein 6.5 (6.3-8.2) g/dL Albumin 3.5 (3.5-5.0) g/dL Urine Color Urine Appearance (Clear) Urine pH (5.0-8.0) Ur Specific Jay (1.001-1.035) Urine Protein (Negative) Urine Glucose (UA) (Negative) Urine Ketones (Negative) Urine Blood (Negative) Urine Nitrite (Negative) Urine Bilirubin (Negative) Urine Urobilinogen (<2.0) mg/dL Ur Leukocyte Esterase (Negative) - EKG Data -: EKG Interpreted by Me (EKG is sinus 65 TX 217 QRS 93 QTc 420) - Radiology Data Radiology results: report reviewed (Ultrasound lower extremity negative for DVT x-ray negative for acute disease), image reviewed Disposition Clinical Impression: Leg pain, Cellulitis of right leg, Leg wound, right, Leg ulcer, Weakness, Fall, Acute kidney injury Disposition: ADMITTED IP TO THIS [facility] Condition: Fair Is patient prescribed a controlled substance at d/c from ED?: No Referrals: Johnny Lane MD [Primary Care Provider] - 1-2 days Time of Disposition: 18:00
[2024-08-17] MEDS ORDERED: VANCOMYCIN IV PER PHARMACY 1 EACH MISC MISCELLANE PRN (15:50)
--- NOTE | 2024-08-17 16:23 | XR ---
EXAMINATION TYPE: XR tibia fibula bilateral DATE OF EXAM: 08/17/2024 4:14 PM COMPARISON: Previous radiograph 426 and 24. CLINICAL INDICATION: Male, 74 years old with history of pain; [facility] TECHNIQUE: XR tibia fibula bilateral; examined in AP and lateral projections. FINDINGS: Old fracture deformity of the distal right fibula again noted. Vascular calcifications. No acute frac ture or dislocation. Partially visualized are mental left knee degenerative arthritis with moderate t o severe joint space loss in the medial compartment. Moderate to severe right knee tricompartment tot al degenerative osteoarthritis also noted. No unexpected radiopaque foreign body. IMPRESSION: 1. No acute fracture or dislocation. 2. Tricompartment total degenerative arthritis of the partially visualized bilateral knees as above. 3. Old fracture deformity of the distal right fibula. [facility], , 08/17/2024 4:21 PM
[2024-08-17] MEDS: MORPHINE SULFATE 4 MG/ML SYRINGE IV STA (16:47)
[2024-08-17] MEDS: ONDANSETRON 4 MG/2 ML VIAL IVP STA (16:48)
[2024-08-17] MEDS: SODIUM CHLORIDE 0.9% 1,000 ML IV STA (16:48)
[2024-08-17 17:14] LABS: Basophils % (A) 0 %; Eosinophils # (A) 0.4 k/uL (0-0.7); Eosinophils % (A) 4 %; HCT 30.8 % (39.0-53.0); HGB 9.9 gm/dL (13.0-17.5); Hypochromasia Slight; Lymphocytes # (A) 1.2 k/uL (1.0-4.8); Lymphocytes % (A) 13 %; MCH 28.5 pg (25.0-35.0); MCHC 32.2 g/dL (31.0-37.0); MCV 88.8 fL (80.0-100.0); Mean Platelet Volume 6.8; Monocytes # (A) 0.6 k/uL (0-1.0); Monocytes % (A) 6 %; Neutrophils # (A) 7.3 k/uL (1.3-7.7); Neutrophils % (A) 75 %; Platelet Count 435 k/uL (150-450); RBC 3.47 m/uL (4.30-5.90); RDW 14.6 % (11.5-15.5); WBC 9.8 k/uL (3.8-10.6)
[2024-08-17] MEDS: VANCOMYCIN 2,000 MG in SODIUM CHLORIDE 0.9% 500 ML 500 ML IVPB ONE (17:22)
[2024-08-17 17:28] LABS: ALT 13 U/L (4-49); AST 22 U/L (17-59); African American GFR (CKD) >90 (>60 ml/min/1.73 sqM); Albumin 3.5 g/dL (3.5-5.0); Alkaline Phosphatase 72 U/L (38-126); Anion Gap 3 mmol/L; Blood Urea Nitrogen 18 mg/dL (9-20); Calcium 9.2 mg/dL (8.4-10.2); Carbon Dioxide 29 mmol/L (22-30); Chloride 104 mmol/L (98-107); Glucose 110 mg/dL (74-99); Magnesium 2.4 mg/dL (1.6-2.3); Non-African American GFR(CKD) 86 (>60 ml/min/1.73 sqM); Phosphorus 4.3 mg/dL (2.5-4.5); Potassium 4.8 mmol/L (3.5-5.1); Sodium 136 mmol/L (137-145); Total Bilirubin 0.4 mg/dL (0.2-1.3); Total Protein 6.5 g/dL (6.3-8.2)
[2024-08-17 17:33] LABS: Appearance,Urine Clear (Clear); Bilirubin,Urine Negative (Negative); Blood,Urine Negative (Negative); Color,Urine Yellow; Glucose,Urine (UA) Negative (Negative); Ketones,Urine Negative (Negative); Leukocyte Esterase,Urine Negative (Negative); Nitrite,Urine Negative (Negative); PH, Urine 5.5 (5.0-8.0); Protein,Urine Trace (Negative); Specific Gravity,Urine 1.026 (1.001-1.035)
[2024-08-17 17:36] LABS: NT-Pro-B-Type Natriuretic Pept 89 pg/mL
[2024-08-17 17:39] LABS: INR 0.9 (<1.2); Partial Thromboplastin Time 24.4 sec (22.0-30.0); Prothrombin Time 10.3 sec (10.0-12.5)
--- NOTE | 2024-08-17 17:51 | US ---
EXAMINATION TYPE: US venous doppler duplex LE DATE OF EXAM: 08/17/2024 3:40 PM COMPARISON: NONE CLINICAL INDICATION: Male, 74 years old with history of pain; pain and swelling in rt leg. Bilateral wounds, Pain TECHNIQUE: The lower extremity deep venous system is examined utilizing real time linear array sonog swapnil with graded compression, color doppler sonography, and spectral doppler. SIDE PERFORMED: Bilateral FINDINGS: VESSELS IMAGED: Common Femoral Vein Deep Femoral Vein Greater Saphenous Vein * Femoral Vein Popliteal Vein Small Saphenous Vein * Proximal Calf Veins (* superficial vessels) Product Safety Associate reports limited evaluation of the distal femoral vein due to patient body habitus. Right Leg: Negative for DVT, Color Doppler imaging shows patency of the vessels. Spectral waveforms are within normal limits. Left Leg: Negative for DVT, Color Doppler imaging shows patency of the vessels. Spectral waveforms a re within normal limits. IMPRESSION: No ultrasound evidence for deep venous thrombosis. [facility], , 08/17/2024 5:49 PM
[2024-08-17] MEDS ORDERED: NALOXONE 0.4 MG/ML 1 ML VIAL IV PRN (18:13)
[2024-08-17] MEDS ORDERED: ONDANSETRON 4 MG/2 ML VIAL IVP PRN (18:13)
[2024-08-17] MEDS: SODIUM CHLORIDE 0.9% 1,000 ML IV SCH (18:53)
[2024-08-18] MEDS: VANCOMYCIN 2,000 MG in SODIUM CHLORIDE 0.9% 500 ML 500 ML IVPB SCH (05:19)
[2024-08-18] MEDS: MORPHINE SULFATE 4 MG/ML SYRINGE IV PRN (07:50)
[2024-08-18] MEDS ORDERED: hydrOXYzine HCL 25 MG TAB PO PRN (09:28)
[2024-08-18 10:54] LABS: ALT 10 U/L (10-49); AST 14 U/L (14-35); Albumin 3.2 g/dL (3.8-4.9); Albumin/Globulin Ratio 1.28 Ratio (1.60-3.17); Alkaline Phosphatase 60 U/L (41-126); BUN/Creat Ratio 19.25 Ratio (12.00-20.00); Blood Urea Nitrogen 15.4 mg/dL (9.0-27.0); Calcium 8.9 mg/dL (8.7-10.3); Carbon Dioxide 26.8 mmol/L (21.6-31.8); Chloride 104 mmol/L (96-109); Globulin 2.5 g/dL (1.6-3.3); Glucose 103 mg/dL (70-110); Potassium 4.6 mmol/L (3.5-5.5); Sodium 141 mmol/L (135-145); Total Bilirubin <0.2 mg/dL (0.3-1.2); Total Protein 5.7 g/dL (6.2-8.2)
[2024-08-18] MEDS: LOSARTAN 50 MG TAB PO SCH (12:08)
[2024-08-18] MEDS: ATORVASTATIN 40 MG TAB PO SCH (12:08)
[2024-08-18] MEDS: LORATADINE 10 MG TAB PO SCH (12:08)
[2024-08-18] MEDS: amLODIPine 10 MG TAB PO SCH (12:08)
[2024-08-18] MEDS: POTASSIUM CHLORIDE ER 20 MEQ TAB.ER PO SCH (12:09)
[2024-08-18] MEDS: METOPROLOL SUCCINATE (ER) 50 MG TAB.ER.24H PO SCH (12:09)
[2024-08-18] MEDS: FAMOTIDINE 20 MG TAB PO SCH (12:09)
[2024-08-18] MEDS: polyethylene glycoL 3350 17 GM POWD.PACK PO SCH (12:09)
[2024-08-18] MEDS: FOLIC ACID 1 MG TAB PO SCH (12:09)
[2024-08-18] MEDS: FUROSEMIDE 40 MG TAB PO SCH (12:09)
--- NOTE | 2024-08-18 13:06 | P.HPIM ---
History of Present Illness H&P Date: 08/18/24 Chief Complaint: Bilateral lower extremity cellulitis with venous ulcers HISTORY OF PRESENT ILLNESS: This is a 74-year-old male one of my patient with a previous medical history significant for hypertension and hypertensive cardiovascular disease, hyperlipidemia, obesity with obstructive sleep apnea, history of chronic alcohol use and dependence with the peripheral neuropathy, significant spondylosis of the lumbar spine with spinal stenosis and significant chronic low back pain, patient was recently hospitalized at [facility] about a month ago for MR STOVALL cellulitis of the left lower extremity along with multiple wounds secondary to him being picking on his skin along with significant rash that he was seen dermatology for and he was diagnosed with allergic dermatitis and scabies and he was admitted to the hospital last in May 2024 and he was treated with ivermectin as well as permethrin twice patient had recovered completely from this, he followed up with me as an outpatient in the office, however the patient has been living at the [facility], and he has not been coming to the office for quite some times, apparently he showed up to the emergency department yesterday with increased redness and increased swelling both lower extremities with venous ulcers that he has not been taking care of, patient apparently was admitted to the hospital for evaluation and treatment of bilateral lower extremity cellulitis and venous ulceration and he had a history of MRSA in the past that he was treated with vancomycin patient will be admitted to the hospital will be started on vancomycin IV and pharmacy to dose his peak and trough, infectious disease consultation with Dr. Medina REVIEW OF SYSTEMS: Constitutional: No documented fever, no chills, no night sweats. No weight change. positive for weakness , reports fatigue reports lethargy. Positive for daytime sleepiness. HEENT: No headache. No blurred vision or double vision, no loss of vision. No loss of Hearing, no ringing in the ears, no dizziness. No nasal drainage or co ngestion. No epistaxis. No sore throat. Lungs: No shortness of breath, no cough, no sputum production. No wheezing. Reports dyspnea with activity. Cardiovascular: No chest pain, positive for lower extremity edema. No palpitations. No paroxysmal nocturnal dyspnea. No orthopnea. No lightheade dness or dizziness. No syncopal episodes.Positive for nocturia. Abdominal: No abdominal pain. No nausea, vomiting. No diarrhea. No constipation. No bloody or tarry stools . No loss of appetite. Genitourinary: No dysuria, increased frequency, urgency. No urinary retention. Musculoskeletal: positive for neck pain, positive for chronic low back pain, positive for pain in both lower extremities with significant neuropathy, positive for gait dysfunction, positive for lower extremity weakness. Integumentary: Positive for cellulitis with venous stasis and stasis dermatitis and venous ulcers Neurologic: No aphasia. No facial droop. Memory loss. No head injury. No headache, positive for paresthesia in both lower extremities Psychiatric: Patient does appear to be somewhat depressed, appears to be a bit anxious, no suicidal thoughts or ideation. Endocrine: No abnormal blood sugars, increased weight. PAST MEDICAL HISTORY: 1. Hypertension and hypertensive cardiovascular disease. 2. Hyperlipidemia. 3. Hypothyroidism. 4. Chronic venous stasis with stasis dermatitis. 5. Chronic alcohol use and dependence. 6. Obstructive sleep apnea. 7. Peripheral neuropathy. 8. Vascular dementia. 9. Enlarged prostate. 10. 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 11. Restless leg syndrome. PAST SURGICAL HISTORY: 1. Laminectomies in the lumbar spine 3. 2. Tonsillectomy. 3. Hand surgery with tendon repair. SOCIAL HISTORY: Patient denies a history of smoking, he drinks about 3 beers every other day, he used to drink a lot heavier than that, he denies any drug use or abuse, he denies any marijuana use and lives along, he has a daughter who comes a check on him, only on the weekend. FAMILY HISTORY: Father at age 93 from old age. History of hypertension and myocardial infarction, mother at age of 84 from lung cancer and she was heavy smoker, patient has 2 brothers one of them is super morbid obesity and other one is ok ay, patient has 2 sisters one of them is 63-year-old with history of venous stasis, the other one is fine, patient has a daughter with no major medical problems 35-year-old. PHYSICAL EXAMINATION: General: This is a 73-year-old male who is resting in bed and does not appear to be in acute distress. HEENT: Head is atraumatic, normocephalic, pupils were equal round reactive to light and recommendation, extraocular muscle movement were intact, sclera nonicteric, conjunctivae were pale, mucous membranes of the mouth are somewhat dry. Neck: Supple, no JVP, normal carotid upstroke bilaterally, no lymphadenopathy. Chest: Decreased breath sounds at the bases, few rhonchi, no expiratory wheezes, no chest wall tenderness, no intercostal retractions. Heart: First heart sound is normal, second heart sound is normal there is systolic ejection murmur 2/6 located in the left sternal border. Abdomen: Soft, nontender, nondistended, positive bowel sounds. Extremities: There is chronic significant venous stasis of right lower extremity with a chronic skin changes dorsalis pedis +1 bilaterally, cellulitis in both lower extremities. Neurologic examination: Patient is awake alert and oriented X 3, cranial nerves II-12 appear grossly intact, muscle power were 4 out of 5 in upper extremities and 3out of 5 in bilateral lower extremities, deep tendon reflexes were depressed bilaterally. Skin examination: Bilateral lower extremity venous stasis with stasis dermatitis and venous ulcers x 2 in the right lower extremity and x 1 on the left lower extremity, cellulitis mainly in the right lower extremity. ASSESSMENT AND PLAN: 1. Bilateral lower extremity cellulitis with venous ulceration with a prior history of MRSA start the patient on vancomycin pharmacy to dose peak and trough, continue ceftriaxone 1 g of piggyback every 24 hours try to obtain cultures and blood culture, infectious is consultation with Dr. Medina , patient will be started on Medihoney for the venous ulcerations especially on the right lower extremity 2. Recent history of scabies that was treated with ivermectin and permethrin resolved. 3. Hypertension and hypertensive cardiovascular disease. Continue patient on amlodipine 5 mg daily, losartan 100 mg orally once every day. Will continue to monitor the patient very closely. 4. Hyperlipidemia. Continue atorvastatin 40 mg daily. Keep LDL 55-70. 5. Vascular dementia. We will continue Namenda 10 mg po bid 6. History of chronic alcohol use and dependence. patient has quit 7. 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 Patient on oxycodone 10/325 mg 1 tablet every 4 hours as needed, monitor the patient very closely. 8. Bilateral lower extremity neuropathy continue patient on Lyrica 200 mg orally twice every day. 9. Peripheral neuropathy. Continue patient on pregabalin 150 mg orally 2 times every day. 10. DVT prophylaxis. Continue Lovenox 40 mg subcutaneously every 24 hours. 11. GI prophylaxis. Continue Protonix 40 mg orally once every day and famotidine 20 mg orally once every day. 12. Admit to inpatient. Estimate a length of stay 2 midnights. 13. Patient is full code. Past Medical History Past Medical History: Hypertension, Osteoarthritis (OA) Additional Past Medical History / Comment(s): ETOH abuse (has not drank in over 2 years), chronic back pain, BLE neuropathy, lymphedema, falls History of Any Multi-Drug Resistant Organisms: MRSA Date of last positivie culture/infection: 04/23/24 MDRO Source:: RT LEG Past Surgical History: Back Surgery, Orthopedic Surgery, Tonsillectomy Additional Past Surgical History / Comment(s): 3 back laminectomies, hand surgery s/p trauma to reattatch tendons Past Anesthesia/Blood Transfusion Reactions: No Reported Reaction Past Psychological History: No Psychological Hx Reported Smoking Status: Never smoker Past Alcohol Use History: None Reported Past Drug Use History: None Reported Additional Drug Use History / Comment(s): Patient states that he hasn't drank alcohol in over 2 years. - Past Family History Father Family Medical History: Hypertension Mother Family Medical History: Cancer Additional Family Medical History / Comment(s): Lung cancer Brother(s) Family Medical History: No Reported History Sister(s) Family Medical History: Hypertension Daughter(s) Family Medical History: No Reported History Medications and Allergies Home Medications Medication Instructions Recorded Confirmed Type Furosemide [Lasix] 40 mg PO DAILY 04/24/23 08/17/24 History Atorvastatin [Lipitor] 40 mg PO DAILY tab 01/12/24 08/17/24 Rx Cetirizine HCl 10 mg PO DAILY 05/21/24 08/17/24 History Folic Acid 0.8 mg PO DAILY 05/21/24 08/17/24 History oxyCODONE-APAP 10-325MG [Percocet 1 tab PO Q4H PRN 05/21/24 08/17/24 History 10-325 mg] Lactulose [Cephulac] 20 gm PO BID #1800 ml 05/31/24 08/17/24 Rx Metoprolol Succinate (ER) [Toprol 50 mg PO DAILY #90 tab 05/31/24 08/17/24 Rx XL] Montelukast [Singulair] 10 mg PO HS #90 tab 05/31/24 08/17/24 Rx Potassium Chloride ER [K-Dur 20] 20 meq PO DAILY #90 tab 05/31/24 08/17/24 Rx Triamcinolone 0.1% Cream [Kenalog 1 applic TOPICAL BID #60 each 05/31/24 08/17/24 Rx 0.1% Cream] amLODIPine [Norvasc] 10 mg PO DAILY #90 tab 05/31/24 08/17/24 Rx hydrOXYzine HCL [Atarax] 25 mg PO TID PRN #90 tab 06/03/24 08/17/24 Rx polyethylene glycoL 3350 [Miralax] 17 gm PO DAILY #30 packet 06/03/24 08/17/24 Rx Baclofen 10 mg PO BID PRN 08/17/24 08/17/24 History Famotidine [Pepcid] 40 mg PO DAILY 08/17/24 08/17/24 History Losartan Potassium [Cozaar] 100 mg PO DAILY 08/17/24 08/17/24 History Pregabalin [Lyrica] 150 mg PO BID 08/17/24 08/17/24 History Sennosides-Docusate Sodium 1 tab PO BID PRN 08/17/24 08/17/24 History [Senokot-S] Allergies Allergy/AdvReac Type Severity Reaction Status Date / Time No Known Allergies Allergy Verified 08/17/24 19:12 Physical Exam Vitals: Vital Signs Temp Pulse Pulse Resp BP BP Pulse Ox 08/18/24 07:45 98 F 77 18 178/66 96 08/18/24 05:17 74 18 132/52 96 08/18/24 00:32 72 18 136/57 97 08/17/24 19:49 70 18 134/63 98 08/17/24 15:10 97.9 F 80 20 134/59 98 Intake and Output 08/17/24 08/18/24 08/18/24 22:59 06:59 14:59 Output Total 300 Balance -300 Output: Urine 300 Other: Voiding Method Urinal Weight 136.078 kg 136.078 kg Results CBC & Chem 7: 08/17/24 16:45 08/18/24 05:43 Labs: Abnormal Lab Results - Last 24 Hours (Table) 08/17/24 08/17/24 08/17/24 Range/Units 16:45 16:45 16:45 RBC 3.47 L (4.30-5.90) m/uL Hgb 9.9 L (13.0-17.5) gm/dL Hct 30.8 L (39.0-53.0) % D-Dimer 1.49 H (<0.60) mg/L FEU Sodium (137-145) mmol/L Glucose (74-99) mg/dL Magnesium (1.6-2.3) mg/dL Urine Protein Trace H (Negative) 08/17/24 Range/Units 16:45 RBC (4.30-5.90) m/uL Hgb (13.0-17.5) gm/dL Hct (39.0-53.0) % D-Dimer (<0.60) mg/L FEU Sodium 136 L (137-145) mmol/L Glucose 110 H (74-99) mg/dL Magnesium 2.4 H (1.6-2.3) mg/dL Urine Protein (Negative) Thrombosis Risk Factor Assmnt - Choose All That Apply Any of the Below Risk Factors Present?: Yes Each Factor Represents 1 point: Obesity (BMI >25), Swollen legs (current) Each Risk Factor Represents 2 Points: Age 61-74 years Other congenital or acquired thrombophilia - If yes, enter type in comment: No Thrombosis Risk Factor Assessment Total Risk Factor Score: 4 Thrombosis Risk Factor Assessment Level: Moderate Risk
[2024-08-18 16:01] LABS: Basophils # (A) 0.05 X 10*3/uL (0.00-0.10); Basophils % (A) 0.6 %; Eosinophils # (A) 0.46 X 10*3/uL (0.04-0.35); Eosinophils % (A) 5.6 %; HCT 30.5 % (39.6-50.0); HGB 9.3 g/dL (13.0-17.0); Lymphocytes # (A) 1.85 X 10*3/uL (0.90-5.00); Lymphocytes % (A) 22.6 %; MCH 27.7 pg (27.0-32.0); MCHC 30.5 g/dL (32.0-37.0); MCV 90.8 FL (80.0-97.0); Mean Platelet Volume 11.2 FL (9.5-12.2); Monocytes # (A) 0.97 X 10*3/uL (0.20-1.00); Monocytes % (A) 11.8 %; NRBC Per 100 WBC 0 X 10*3/uL (0.00-0.01); Neutrophils % (A) 58.7 %; Platelet Count 232 X 10*3/uL (140-440); RBC 3.36 X 10*6/uL (4.40-5.60); WBC 8.19 X 10*3/uL (4.50-10.00)
[2024-08-18] MEDS: LACTULOSE 20 GM/30 ML CUP PO SCH (18:12)
[2024-08-18] MEDS: SENNOSIDES-DOCUSATE SODIUM 1 EACH TAB PO PRN (18:12)
[2024-08-18] MEDS ORDERED: SENNOSIDES 8.6 MG TAB PO PRN (18:21)
[2024-08-18] MEDS: oxyCODONE-APAP 10-325MG 1 EACH TAB PO PRN (18:31)
[2024-08-18] MEDS: DOCUSATE 100 MG CAP PO SCH (18:31)
[2024-08-18] MEDS: BACLOFEN 10 MG TAB PO PRN (18:32)
[2024-08-18] MEDS: IBUPROFEN 600 MG TAB PO SCH (21:03)
[2024-08-18] MEDS: MONTELUKAST 10 MG TAB PO SCH (21:04)
[2024-08-18] MEDS: PREGABALIN 75 MG CAP PO SCH (21:04)
[2024-08-18] MEDS: TRIAMCINOLONE 0.1% CREAM 80 GM TUBE TOPICAL SCH (22:27)
--- NOTE | 2024-08-18 23:49 | P.CONS ---
History of Present Illness - Reason for Consult Consult date: 08/18/24 Cellulitis lower extremity Requesting physician: Johnny Lane - Chief Complaint Increasing swelling redness to lower extremity x days - History of Present Illness Patient is a 74-year-old male with a past medical history significant for hypertension osteoarthritis patient did have a history of bilateral lower extremity venous stasis ulcer right greater than the left and did have a right leg wound infection with MRSA and cellulitis for the patient was treated with antibiotic therapy patient now presenting back to the hospital for evaluation of bilateral lower extremity worsening swelling redness that apparently has been getting worse over the last few days patient been complaining of pain in the lower extremity especially right leg possibly leaking moderate intensity without radiation patient denies high-grade fever or any chills on presentation to the hospital patient was afebrile no fever have recorded subsequently patient was not tachycardic hypotensive or hypoxic he did have white count of 9.8 creatinine has been normal electrolytes are normal liver enzymes are normal urine was negative patient did have lower extremity Doppler has been negative for DVT patient started on ceftriaxone and vancomycin infectious disease was consulted for further management of antibiotic therapy Review of Systems Positive point and negatives has been mentioned in the HPI, complete review of systems was performed and all other systems are negative Past Medical History Past Medical History: Hypertension, Osteoarthritis (OA) Additional Past Medical History / Comment(s): ETOH abuse (has not drank in over 2 years), chronic back pain, BLE neuropathy, lymphedema, falls History of Any Multi-Drug Resistant Organisms: MRSA Year Discovered:: 04/23/24 MDRO Source:: RT LEG Past Surgical History: Back Surgery, Orthopedic Surgery, Tonsillectomy Additional Past Surgical History / Comment(s): 3 back laminectomies, hand surgery s/p trauma to reattatch tendons Past Anesthesia/Blood Transfusion Reactions: No Reported Reaction Past Psychological History: No Psychological Hx Reported Smoking Status: Never smoker Past Alcohol Use History: None Reported Past Drug Use History: None Reported Additional Drug Use History / Comment(s): Patient states that he hasn't drank alcohol in over 2 years. - Past Family History Father Family Medical History: Hypertension Mother Family Medical History: Cancer Additional Family Medical History / Comment(s): Lung cancer Brother(s) Family Medical History: No Reported History Sister(s) Family Medical History: Hypertension Daughter(s) Family Medical History: No Reported History Medications and Allergies Home Medications Medication Instructions Recorded Confirmed Type Furosemide [Lasix] 40 mg PO DAILY 04/24/23 08/17/24 History Atorvastatin [Lipitor] 40 mg PO DAILY tab 01/12/24 08/17/24 Rx Cetirizine HCl 10 mg PO DAILY 05/21/24 08/17/24 History Folic Acid 0.8 mg PO DAILY 05/21/24 08/17/24 History oxyCODONE-APAP 10-325MG [Percocet 1 tab PO Q4H PRN 05/21/24 08/17/24 History 10-325 mg] Lactulose [Cephulac] 20 gm PO BID #1800 ml 05/31/24 08/17/24 Rx Metoprolol Succinate (ER) [Toprol 50 mg PO DAILY #90 tab 05/31/24 08/17/24 Rx XL] Montelukast [Singulair] 10 mg PO HS #90 tab 05/31/24 08/17/24 Rx Potassium Chloride ER [K-Dur 20] 20 meq PO DAILY #90 tab 05/31/24 08/17/24 Rx Triamcinolone 0.1% Cream [Kenalog 1 applic TOPICAL BID #60 each 05/31/24 08/17/24 Rx 0.1% Cream] amLODIPine [Norvasc] 10 mg PO DAILY #90 tab 05/31/24 08/17/24 Rx hydrOXYzine HCL [Atarax] 25 mg PO TID PRN #90 tab 06/03/24 08/17/24 Rx polyethylene glycoL 3350 [Miralax] 17 gm PO DAILY #30 packet 06/03/24 08/17/24 Rx Baclofen 10 mg PO BID PRN 08/17/24 08/17/24 History Famotidine [Pepcid] 40 mg PO DAILY 08/17/24 08/17/24 History Losartan Potassium [Cozaar] 100 mg PO DAILY 08/17/24 08/17/24 History Pregabalin [Lyrica] 150 mg PO BID 08/17/24 08/17/24 History Sennosides-Docusate Sodium 1 tab PO BID PRN 08/17/24 08/17/24 History [Senokot-S] Allergies Allergy/AdvReac Type Severity Reaction Status Date / Time No Known Allergies Allergy Verified 08/17/24 19:12 Physical Exam Vitals: Vital Signs Temp Pulse Pulse Resp BP BP Pulse Ox 08/18/24 07:45 98 F 77 18 178/66 96 08/18/24 05:17 74 18 132/52 96 08/18/24 00:32 72 18 136/57 97 08/17/24 19:49 70 18 134/63 98 08/17/24 15:10 97.9 F 80 20 134/59 98 Intake and Output 08/17/24 08/18/24 08/18/24 22:59 06:59 14:59 Output Total 300 Balance -300 Output: Urine 300 Other: Voiding Method Urinal Weight 136.078 kg 136.078 kg GENERAL DESCRIPTION: Elderly male lying in bed, no distress. No tachypnea or accessory muscle of respiration use. HEENT: Shows Pallor , no scleral icterus. Oral mucous membrane is dry. NECK: Trachea central, no thyromegaly. LUNGS: Unlabored breathing. Clear to auscultation anteriorly. No wheeze or c rackle. HEART: S1, S2, regular rate and rhythm. No loud murmur ABDOMEN: Soft, no tenderness , guarding or rigidity, no organomegaly EXTREMITIES: Diffuse swelling to bilateral lower extremity some superficial ulceration with minimal slough tissue there is some redness and warm to touch SKIN: No rash, no masses palpable. NEUROLOGICAL: The patient is awake, alert, oriented x3, mood and affect normal. Results CBC & Chem 7: 08/19/24 02:38 08/20/24 03:22 Labs: Abnormal Lab Results - Last 24 Hours (Table) 08/17/24 08/17/24 08/17/24 Range/Units 16:45 16:45 16:45 RBC 3.47 L (4.30-5.90) m/uL Hgb 9.9 L (13.0-17.5) gm/dL Hct 30.8 L (39.0-53.0) % D-Dimer 1.49 H (<0.60) mg/L FEU Sodium (137-145) mmol/L Glucose (74-99) mg/dL Magnesium (1.6-2.3) mg/dL Urine Protein Trace H (Negative) 08/17/24 Range/Units 16:45 RBC (4.30-5.90) m/uL Hgb (13.0-17.5) gm/dL Hct (39.0-53.0) % D-Dimer (<0.60) mg/L FEU Sodium 136 L (137-145) mmol/L Glucose 110 H (74-99) mg/dL Magnesium 2.4 H (1.6-2.3) mg/dL Urine Protein (Negative) Assessment and Plan (1) Cellulitis of right leg Current Visit: Yes Status: Acute Code(s): L03.115 - CELLULITIS OF RIGHT LOWER LIMB SNOMED Code(s): 92748287327300917 (2) Leg wound, right Current Visit: Yes Status: Acute Code(s): S81.801A - UNSPECIFIED OPEN WOUND, RIGHT LOWER LEG, INITIAL ENCOUNTER SNOMED Code(s): 18266242087034584 Plan: 1patient presented to hospital with increasing swelling redness to bilateral lower extremities more extensive in right leg in this patient who did have some superficial ulceration concerning for venous stasis ulcer with secondary cellulitis and likely from gram-positive skin rupali in this patient who did have a previous history of MRSA infection 2-local wound care with the Medihoney followed by moist dressing and Rocky wrap from just above the dose to below the knee 3-vancomycin pharmacy to dose target trough of 15 while watching kidney function and Vanco trough closely We will follow on clinical condition and cultures to further adjust medication if needed Thank you for this consultation we will follow the patient along with you Dictation was produced using [employer] dictation software. please excuse any grammatical, word or spelling errors. Time with Patient: Greater than 30
[2024-08-19 03:47] LABS: ALT 11 U/L (4-49); AST 17 U/L (17-59); African American GFR (CKD) >90 (>60 ml/min/1.73 sqM); Albumin 3.1 g/dL (3.5-5.0); Albumin/Globulin Ratio 1.1; Alkaline Phosphatase 59 U/L (38-126); Anion Gap 2 mmol/L; Blood Urea Nitrogen 13 mg/dL (9-20); Calcium 8.5 mg/dL (8.4-10.2); Carbon Dioxide 28 mmol/L (22-30); Chloride 107 mmol/L (98-107); Globulin 2.7 g/dL; Glucose 90 mg/dL (74-99); Non-African American GFR(CKD) 88 (>60 ml/min/1.73 sqM); Sodium 137 mmol/L (137-145); Total Bilirubin 0.2 mg/dL (0.2-1.3); Total Protein 5.8 g/dL (6.3-8.2)
[2024-08-19] MEDS: IBUPROFEN 600 MG TAB PO PRN (04:40)
[2024-08-19] MEDS: ENOXAPARIN 40 MG/0.4 ML SYRINGE SQ SCH (09:21)
[2024-08-19 09:44] LABS: HCT 28.9 % (39.6-50.0); HGB 8.8 g/dL (13.0-17.0); MCH 27.6 pg (27.0-32.0); MCHC 30.4 g/dL (32.0-37.0); MCV 90.6 FL (80.0-97.0); Mean Platelet Volume 10.2 FL (9.5-12.2); NRBC Per 100 WBC 0 X 10*3/uL (0.00-0.01); Platelet Count 334 X 10*3/uL (140-440); RBC 3.19 X 10*6/uL (4.40-5.60); RDW 14.6 % (11.5-14.5); WBC 7.76 X 10*3/uL (4.50-10.00)
[2024-08-19 09:45] LABS: Basophils # (A) 0.04 X 10*3/uL (0.00-0.10); Basophils % (A) 0.5 %; Eosinophils # (A) 0.56 X 10*3/uL (0.04-0.35); Eosinophils % (A) 7.2 %; Lymphocytes # (A) 2.08 X 10*3/uL (0.90-5.00); Lymphocytes % (A) 26.8 %; Monocytes # (A) 0.79 X 10*3/uL (0.20-1.00); Monocytes % (A) 10.2 %; Neutrophils # (A) 4.24 X 10*3/uL (1.80-7.70); Neutrophils % (A) 54.7 %
[2024-08-19] MEDS: MAGNESIUM HYDROXIDE 2,400 MG/30 ML CUP PO PRN (12:44)
[2024-08-19 14:27] VITALS: BMI 40.6
--- NOTE | 2024-08-19 18:56 | P.PN ---
Subjective Progress Note Date: 08/19/24 HISTORY OF PRESENT ILLNESS: This is a 74-year-old male one of my patient with a previous medical history significant for hypertension and hypertensive cardiovascular disease, hyperlipidemia, obesity with obstructive sleep apnea, history of chronic alcohol use and dependence with the peripheral neuropathy, significant spondylosis of the lumbar spine with spinal stenosis and significant chronic low back pain, patient was recently hospitalized at [facility] about a month ago for MRSA cellulitis of the left lower extremity along with multiple wounds secondary to him being picking on his skin along with significant rash that he was seen dermatology for and he was diagnosed with allergic dermatitis and scabies and he was admitted to the hospital last in May 2024 and he was treated with ivermectin as well as permethrin twice patient had recovered completely from this, he followed up with me as an outpatient in the office, however the patient has been living at the [facility], and he has not been coming to the office for quite some times, apparently he showed up to the emergency department yesterday with increased redness and increased swelling both lower extremities with venous ulcers that he has not been taking care of, patient apparently was admitted to the hospital for evaluation and treatment of bilateral lower extremity cellulitis and venous ulceration and he had a history of MRSA in the past that he was treated with vancomycin patient will be admitted to the hospital will be started on vancomycin IV and pharmacy to dose his peak and trough, infectious disease consultation with Dr. Medina 08/19: Patient is sitting up at the edge of the bed, he is eating his breakfast, he denies any chest pain, shortness of breath, he has no abdominal pain, he has not had a bowel movement yet, he is asking for milk magnesia as well as prune juice, he has been on lactulose along with MiraLAX along with a stool softener, I will continue to follow-up with the patient very closely, has been tolerating treatment plan he is currently on vancomycin with pharmacy to dose its peak and trough, he is also on ceftriaxone, infectious diseases following for his venous ulceration continue with local care with [facility], continue to increase protein intake, continue tiffany wraps, continue elevate the legs, follow-up with the patient very closely. REVIEW OF SYSTEMS: Constitutional: No documented fever, no chills, no night sweats. No weight change. positive for weakness , reports fatigue reports lethargy. Positive for daytime sleepiness. HEENT: No headache. No blurred vision or double vision, no loss of vision. No loss of Hearing, no ringing in the ears, no dizziness. No nasal drainage or congestion. No epistaxis. No sore throat. Lungs: No shortness of breath, no cough, no sputum production. No wheezing. Reports dyspnea with activity. Cardiovascular: No chest pain, positive for lower extremity edema. No palpitations. No paroxysmal nocturnal dyspnea. No orthopnea. No lightheadedness or dizziness. No syncopal episodes.Positive for nocturia. Abdominal: No abdominal pain. No nausea, vomiting. No diarrhea. No constipation. No bloody or tarry stools . No loss of appetite. Genitourinary: No dysuria, increased frequency, urgency. No urinary retention. Musculoskeletal: positive for neck pain, positive for chronic low back pain, positive for pain in both lower extremities with significant neuropathy, positive for gait dysfunction, positive for lower extremity weakness. Integumentary: Positive for cellulitis with venous stasis and stasis dermatitis and venous ulcers Neurologic: No aphasia. No facial droop. Memory loss. No head injury. No headache, positive for paresthesia in both lower extremities Psychiatric: Patient does appear to be somewhat depressed, appears to be a bit anxious, no suicidal thoughts or ideation. Endocrine: No abnormal blood sugars, increased weight. PHYSICAL EXAMINATION: General: This is a 73-year-old male who is resting in bed and does not appear to be in acute distress. HEENT: Head is atraumatic, normocephalic, pupils were equal round reactive to light and recommendation, extraocular muscle movement were intact, sclera nonicteric, conjunctivae were pale, mucous membranes of the mouth are somewhat dry. Neck: Supple, no JVP, normal carotid upstroke bilaterally, no lymphadenopathy. Chest: Decreased breath sounds at the bases, few rhonchi, no expiratory wheezes, no chest wall tenderness, no intercostal retractions. Heart: First heart sound is normal, second heart sound is normal there is systolic ejection murmur 2/6 located in the left sternal border. Abdomen: Soft, nontender, nondistended, positive bowel sounds. Extremities: There is chronic significant venous stasis of right lower extremity with a chronic skin changes dorsalis pedis +1 bilaterally, cellulitis in both lower extremities. Neurologic examination: Patient is awake alert and oriented X 3, cranial nerves II-12 appear grossly intact, muscle power were 4 out of 5 in upper extremities and 3out of 5 in bilateral lower extremities, deep tendon reflexes were depressed bilaterally. Skin examination: Bilateral lower extremity venous stasis with stasis dermatitis and venous ulcers x 2 in the right lower extremity and x 1 on the left lower extremity, cellulitis mainly in the right lower extremity. ASSESSMENT AND PLAN: 1. Bilateral lower extremity cellulitis with venous ulceration with a prior history of MRSA start the patient on vancomycin pharmacy to dose peak and trough, continue ceftriaxone 2 g of piggyback every 24 hours try to obtain cultures and blood culture, infectious is consultation with Dr. Medina , patient will be started on Medihoney for the venous ulcerations especially on the right lower extremity 2. Recent history of scabies that was treated with ivermectin and permethrin resolved. 3. Hypertension and hypertensive cardiovascular disease. Continue patient on amlodipine 5 mg daily, losartan 100 mg orally once every day. Will continue to monitor the patient very closely. 4. Hyperlipidemia. Continue atorvastatin 40 mg daily. Keep LDL 55-70. 5. Vascular dementia. We will continue Namenda 10 mg po bid 6. History of chronic alcohol use and dependence. patient has quit 7. 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 Patient on oxycodone 10/325 mg 1 tablet every 4 hours as needed, monitor the patient very closely. 8. Bilateral lower extremity neuropathy continue patient on Lyrica 200 mg orally twice every day. 9. Peripheral neuropathy. Continue patient on pregabalin 150 mg orally 2 times every day. 10. DVT prophylaxis. Continue Lovenox 40 mg subcutaneously every 24 hours. 11. GI prophylaxis. Continue Protonix 40 mg orally once every day and famotidine 20 mg orally once every day. 12. Constipation. Continue patient on MiraLAX 17 g in 8 ounce of water, lactulose 20 g orally twice every day, continue with Senokot, may add milk magnesia with prune juice as needed. 13. Increase activity. Objective - Vital Signs Vital signs: Vital Signs Temp 97.5 F L 08/19/24 13:20 Pulse 66 08/19/24 13:20 Resp 20 08/19/24 13:20 BP 129/65 08/19/24 13:20 Pulse Ox 99 08/19/24 13:20 FiO2 Intake & Output 08/18/24 08/19/24 08/19/24 18:59 06:59 18:59 Output Total 300 550 Balance -300 -550 Weight 136.078 kg 136.078 kg Output: Urine 300 550 Other: Voiding Method Urinal Urinal # Voids 3 3 1 # Bowel Movements 0 1 - Labs CBC & Chem 7: 08/19/24 02:38 08/19/24 02:38 Labs: Abnormal Lab Results - Last 24 Hours (Table) 08/19/24 08/19/24 Range/Units 02:38 02:38 RBC 3.19 L (4.40-5.60) X 10*6/uL Hgb 8.8 L (13.0-17.0) g/dL Hct 28.9 L (39.6-50.0) % MCHC 30.4 L (32.0-37.0) g/dL RDW 14.6 H (11.5-14.5) % Immature Gran # 0.05 H (0.00-0.04) X 10*3/uL Eosinophils # 0.56 H (0.04-0.35) X 10*3/uL Total Protein 5.8 L (6.3-8.2) g/dL Albumin 3.1 L (3.5-5.0) g/dL Microbiology - Last 24 Hours (Table) 08/17/24 16:45 Blood Culture - Preliminary Blood
[2024-08-20 04:31] LABS: African American GFR (CKD) >90 (>60 ml/min/1.73 sqM); Non-African American GFR(CKD) >90 (>60 ml/min/1.73 sqM)
[2024-08-20] MEDS: VANCOMYCIN TROUGH DUE 1 EACH MISC MISCELLANE ONE (05:50)
--- NOTE | 2024-08-20 07:37 | P.PN ---
Subjective Progress Note Date: 08/19/24 Principal diagnosis: Reason for follow-up is bilateral lower extremity ulcer and cellulitis Patient is a 74-year-old male with a past medical history significant for hypertension osteoarthritis patient did have a history of bilateral lower extremity venous stasis ulcer right greater than the left and did have a right leg wound infection with MRSA presented to the hospital increasing swelling redness to all extremities patient right leg Dopplers were negative for DVT. On today's evaluation that is 08/19/2024, patient has been afebrile, patient is breathing comfortably and is currently on room air, patient denies having any significant cough no chest pain, patient denies nausea vomiting or diarrhea and no abdominal pain still complaining of pain to lower extremity and asking for more pain medication. The patient white count is 7.76 creatinine 0.82 blood cultures are pending Objective - Vital Signs Vital signs: Vital Signs Temp 99.4 F 08/19/24 07:16 Pulse 57 L 08/19/24 09:20 Resp 20 08/19/24 09:20 BP 117/57 08/19/24 09:43 Pulse Ox 95 08/19/24 07:16 FiO2 Intake & Output 08/18/24 08/19/24 08/19/24 18:59 06:59 18:59 Output Total 300 550 Balance -300 -550 Weight 136.078 kg Output: Urine 300 550 Other: Voiding Method Urinal Urinal # Voids 3 3 1 # Bowel Movements 0 1 - Exam GENERAL DESCRIPTION: An elderly male up in bed in no distress RESPIRATORY SYSTEM: Unlabored breathing , decreased breath sounds at bases HEART: S1 S2 regular rate and rhythm , ABDOMEN: Soft , no tenderness EXTREMITIES: Bilateral legs are currently wrapped in Rocky wrap - Labs CBC & Chem 7: 08/19/24 02:38 08/20/24 03:22 Labs: Abnormal Lab Results - Last 24 Hours (Table) 08/18/24 08/19/24 08/19/24 Range/Units 05:43 02:38 02:38 RBC 3.36 L 3.19 L (4.40-5.60) X 10*6/uL Hgb 9.3 L 8.8 L (13.0-17.0) g/dL Hct 30.5 L 28.9 L (39.6-50.0) % MCHC 30.5 L 30.4 L (32.0-37.0) g/dL RDW 15.0 H 14.6 H (11.5-14.5) % Immature Gran # 0.06 H 0.05 H (0.00-0.04) X 10*3/uL Eosinophils # 0.46 H 0.56 H (0.04-0.35) X 10*3/uL Total Protein 5.8 L (6.3-8.2) g/dL Albumin 3.1 L (3.5-5.0) g/dL Microbiology - Last 24 Hours (Table) 08/17/24 16:45 Blood Culture - Preliminary Blood Assessment and Plan (1) Cellulitis of right leg Current Visit: Yes Status: Acute Code(s): L03.115 - CELLULITIS OF RIGHT LOWER LIMB SNOMED Code(s): 44192873487542055 (2) Leg wound, right Current Visit: Yes Status: Acute Code(s): S81.801A - UNSPECIFIED OPEN WOUND, RIGHT LOWER LEG, INITIAL ENCOUNTER SNOMED Code(s): 44830269298146136 Plan: 1patient presented to hospital with increasing swelling redness to bilateral lower extremities, more in the right leg than the left leg, in this patient who did have some superficial ulceration concerning for venous stasis ulcer with secondary cellulitis and likely from gram-positive skin rupali in this patient who did have a previous history of MRSA infection 2-local wound care with the Medihoney followed by moist dressing and Rocky wrap from just above the dose to below the knee 3-vancomycin pharmacy to dose target trough of 15 while watching kidney function and Vanco trough closely we will reevaluate the lower extremity at the time of dressing changes tomorrow Dictation was produced using [employer] software. please excuse any grammatical, word or spelling errors.
[2024-08-20 08:49] LABS: Basophils # (A) 0.05 X 10*3/uL (0.00-0.10); Basophils % (A) 0.7 %; Eosinophils # (A) 0.54 X 10*3/uL (0.04-0.35); Eosinophils % (A) 7.9 %; HCT 29.7 % (39.6-50.0); HGB 9.1 g/dL (13.0-17.0); Lymphocytes # (A) 1.91 X 10*3/uL (0.90-5.00); Lymphocytes % (A) 28.1 %; MCH 28.2 pg (27.0-32.0); MCHC 30.6 g/dL (32.0-37.0); Monocytes # (A) 0.72 X 10*3/uL (0.20-1.00); Monocytes % (A) 10.6 %; NRBC Per 100 WBC 0 X 10*3/uL (0.00-0.01); Neutrophils # (A) 3.54 X 10*3/uL (1.80-7.70); Neutrophils % (A) 52.1 %; Platelet Count 361 X 10*3/uL (140-440); RBC 3.23 X 10*6/uL (4.40-5.60); RDW 14.8 % (11.5-14.5)
[2024-08-20 08:53] LABS: ALT 10 U/L (10-49); AST 16 U/L (14-35); Albumin 3.3 g/dL (3.8-4.9); Albumin/Globulin Ratio 1.32 Ratio (1.60-3.17); Alkaline Phosphatase 59 U/L (41-126); BUN/Creat Ratio 11.38 Ratio (12.00-20.00); Blood Urea Nitrogen 9.1 mg/dL (9.0-27.0); Calcium 8.9 mg/dL (8.7-10.3); Carbon Dioxide 28.9 mmol/L (21.6-31.8); Chloride 106 mmol/L (96-109); Globulin 2.5 g/dL (1.6-3.3); Glucose 105 mg/dL (70-110); Potassium 4.4 mmol/L (3.5-5.5); Sodium 143 mmol/L (135-145); Total Bilirubin <0.2 mg/dL (0.3-1.2); Total Protein 5.8 g/dL (6.2-8.2)
--- NOTE | 2024-08-20 13:13 | P.PN ---
Subjective Progress Note Date: 08/20/24 Principal diagnosis: Reason for follow-up is bilateral lower extremity ulcer and cellulitis Patient is a 74-year-old male with a past medical history significant for hypertension osteoarthritis patient did have a history of bilateral lower extremity venous stasis ulcer right greater than the left and did have a right leg wound infection with MRSA presented to the hospital increasing swelling redness to all extremities patient right leg Dopplers were negative for DVT. On today's evaluation that is 08/20/2024, Patient is afebrile this morning patient denies having any chest pain shortness of breath or cough, the patient is currently on room air, patient denies any abdominal pain no diarrhea no nausea no vomiting still complaining of pain to the lower extremity. Patient white count is 6.80, creatinine 0.78 Objective - Vital Signs Vital signs: Vital Signs Temp 98.5 F 08/20/24 08:00 Pulse 69 08/20/24 08:00 Resp 17 08/20/24 08:00 BP 142/62 08/20/24 08:00 Pulse Ox 96 08/20/24 08:00 FiO2 Intake & Output 08/19/24 08/20/24 08/20/24 18:59 06:59 18:59 Intake Total 200 Output Total 2650 Balance -2650 200 Weight 136.078 kg Intake: Oral 200 Output: Urine 2650 Other: Voiding Method Urinal Urinal # Voids 4 3 # Bowel Movements 4 - Exam GENERAL DESCRIPTION: An elderly male up in bed in no distress RESPIRATORY SYSTEM: Unlabored breathing , decreased breath sounds at bases HEART: S1 S2 regular rate and rhythm , ABDOMEN: Soft , no tenderness EXTREMITIES: Right lower extremity dressing was removed redness has significant decreased intensity no slough tissue on the wounds - Labs CBC & Chem 7: 08/20/24 03:22 08/20/24 03:22 Labs: Abnormal Lab Results - Last 24 Hours (Table) 08/20/24 08/20/24 Range/Units 03:22 03:22 RBC 3.23 L (4.40-5.60) X 10*6/uL Hgb 9.1 L (13.0-17.0) g/dL Hct 29.7 L (39.6-50.0) % MCHC 30.6 L (32.0-37.0) g/dL RDW 14.8 H (11.5-14.5) % Eosinophils # 0.54 H (0.04-0.35) X 10*3/uL BUN/Creatinine Ratio 11.38 L (12.00-20.00) Ratio Total Bilirubin <0.2 L (0.3-1.2) mg/dL Total Protein 5.8 L (6.2-8.2) g/dL Albumin 3.3 L (3.8-4.9) g/dL Albumin/Globulin Ratio 1.32 L (1.60-3.17) Ratio Microbiology - Last 24 Hours (Table) 08/17/24 16:45 Blood Culture - Preliminary Blood Assessment and Plan (1) Cellulitis of right leg Current Visit: Yes Status: Acute Code(s): L03.115 - CELLULITIS OF RIGHT LOWER LIMB SNOMED Code(s): 34657819738432653 (2) Leg wound, right Current Visit: Yes Status: Acute Code(s): S81.801A - UNSPECIFIED OPEN WOUND, RIGHT LOWER LEG, INITIAL ENCOUNTER SNOMED Code(s): 23888044221340805 Plan: 1patient presented to hospital with increasing swelling redness to bilateral lower extremities, more in the right leg than the left leg, in this patient who did have some superficial ulceration concerning for venous stasis ulcer with secondary cellulitis and likely from gram-positive skin rupali in this patient who did have a previous history of MRSA infection 2-local wound care will be changed with dry Aquacel silver dressing to the open area followed by Rocky wrap from just above the dose to below the knee change q. 48-hour 3-patient is currently being treated with vancomycin pharmacy to dose target trough of 15 we will plan on oral Bactrim DS for 7 days on discharge Dictation was produced using [employer] software. please excuse any grammatical, word or spelling errors. Time with Patient: Less than 30
--- NOTE | 2024-08-20 19:46 | P.PN ---
Subjective Progress Note Date: 08/20/24 HISTORY OF PRESENT ILLNESS: This is a 74-year-old male one of my patient with a previous medical history significant for hypertension and hypertensive cardiovascular disease, hyperlipidemia, obesity with obstructive sleep apnea, history of chronic alcohol use and dependence with the peripheral neuropathy, significant spondylosis of the lumbar spine with spinal stenosis and significant chronic low back pain, patient was recently hospitalized at [facility] about a month ago for MRSA cellulitis of the left lower extremity along with multiple wounds secondary to him being picking on his skin along with significant rash that he was seen dermatology for and he was diagnosed with allergic dermatitis and scabies and he was admitted to the hospital last in May 2024 and he was treated with ivermectin as well as permethrin twice patient had recovered completely from this, he followed up with me as an outpatient in the office, however the patient has been living at the [facility], and he has not been coming to the office for quite some times, apparently he showed up to the emergency department yesterday with increased redness and increased swelling both lower extremities with venous ulcers that he has not been taking care of, patient apparently was admitted to the hospital for evaluation and treatment of bilateral lower extremity cellulitis and venous ulceration and he had a history of MRSA in the past that he was treated with vancomycin patient will be admitted to the hospital will be started on vancomycin IV and pharmacy to dose his peak and trough, infectious disease consultation with Dr. Medina 08/19: Patient is sitting up at the edge of the bed, he is eating his breakfast, he denies any chest pain, shortness of breath, he has no abdominal pain, he has not had a bowel movement yet, he is asking for milk magnesia as well as prune juice, he has been on lactulose along with MiraLAX along with a stool softener, I will continue to follow-up with the patient very closely, has been tolerating treatment plan he is currently on vancomycin with pharmacy to dose its peak and trough, he is also on ceftriaxone, infectious diseases following for his venous ulceration [facility], continue to increase protein intake, continue rocky wraps, continue elevate the legs, follow-up with the patient very closely. 08/20: Patient is laying down in bed in no apparent distress, he is complaining of increased pain in the left lower extremity, his venous Doppler was negative for DVT, he continues to have venous ulceration of both lower extremities, continue IV antibiotic, will continue with that, continue with Medihoney, continue with wrapping, continue current treatment plan, physical therapy evaluation, patient will likely be going back to [facility] with home health care. REVIEW OF SYSTEMS: Constitutional: No documented fever, no chills, no night sweats. No weight change. positive for weakness , reports fatigue reports lethargy. Positive for daytime sleepiness. HEENT: No headache. No blurred vision or double vision, no loss of vision. No loss of Hearing, no ringing in the ears, no dizziness. No nasal drainage or congestion. No epistaxis. No sore throat. Lungs: No shortness of breath, no cough, no sputum production. No wheezing. Reports dyspnea with activity. Cardiovascular: No chest pain, positive for lower extremity edema. No palpitations. No paroxysmal nocturnal dyspnea. No orthopnea. No lighth eadedness or dizziness. No syncopal episodes.Positive for nocturia. Abdominal: No abdominal pain. No nausea, vomiting. No diarrhea. No constipation. No bloody or tarry stools . No loss of appetite. Genitourinary: No dysuria, increased frequency, urgency. No urinary retention. Musculoskeletal: positive for neck pain, positive for chronic low back pain, positive for pain in both lower extremities with significant neuropathy, positive for gait dysfunction, positive for lower extremity weakness. Integumentary: Positive for cellulitis with venous stasis and stasis dermatitis and venous ulcers Neurologic: No aphasia. No facial droop. Memory loss. No head injury. No headache, positive for paresthesia in both lower extremities Psychiatric: Patient does appear to be somewhat depressed, appears to be a bit anxious, no suicidal thoughts or ideation. Endocrine: No abnormal blood sugars, increased weight. PHYSICAL EXAMINATION: General: This is a 73-year-old male who is resting in bed and does not appear to be in acute distress. HEENT: Head is atraumatic, normocephalic, pupils were equal round reactive to light and recommendation, extraocular muscle movement were intact, sclera nonicteric, conjunctivae were pale, mucous membranes of the mouth are somewhat dry. Neck: Supple, no JVP, normal carotid upstroke bilaterally, no lymphadenopathy. Chest: Decreased breath sounds at the bases, few rhonchi, no expiratory wheezes, no chest wall tenderness, no intercostal retractions. Heart: First heart sound is normal, second heart sound is normal there is systolic ejection murmur 2/6 located in the left sternal border. Abdomen: Soft, nontender, nondistended, positive bowel sounds. Extremities: There is chronic significant venous stasis of right lower extremity with a chronic skin changes dorsalis pedis +1 bilaterally, cellulitis in both lower extremities. Neurologic examination: Patient is awake alert and oriented X 3, cranial nerves II-12 appear grossly intact, muscle power were 4 out of 5 in upper extremities and 3out of 5 in bilateral lower extremities, deep tendon reflexes were depressed bilaterally. Skin examination: Bilateral lower extremity venous stasis with stasis dermatitis and venous ulcers x 2 in the right lower extremity and x 1 on the left lower extremity, cellulitis mainly in the right lower extremity. ASSESSMENT AND PLAN: 1. Bilateral lower extremity cellulitis with venous ulceration with a prior history of MRSA start the patient on vancomycin pharmacy to dose peak and trough, continue ceftriaxone 2 g of piggyback every 24 hours try to obtain cultures and blood culture, infectious is consultation with Dr. Adam eden, continue Medihoney for the venous ulcerations, continue with Rocky wrap continue leg elevation. 2. Recent history of scabies that was treated with ivermectin and permethrin resolved. 3. Hypertension and hypertensive cardiovascular disease. Continue patient on amlodipine 5 mg daily, losartan 100 mg orally once every day. Will continue to monitor the patient very closely. 4. Hyperlipidemia. Continue atorvastatin 40 mg daily. Keep LDL 55-70. 5. Vascular dementia. We will continue Namenda 10 mg po bid 6. History of chronic alcohol use and dependence. patient has quit 7. 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 Patient on oxycodone 10/325 mg 1 tablet every 4 hours as needed, monitor the patient very closely. 8. Bilateral lower extremity neuropathy continue patient on Lyrica 200 mg orally twice every day. 9. Peripheral neuropathy. Continue patient on pregabalin 150 mg orally 2 times every day. 10. DVT prophylaxis. Continue Lovenox 40 mg subcutaneously every 24 hours. 11. GI prophylaxis. Continue Protonix 40 mg orally once every day and famotidine 20 mg orally once every day. 12. Constipation. Continue patient on MiraLAX 17 g in 8 ounce of water, lactulose 20 g orally twice every day, continue with Senokot, may add milk magnesia with prune juice as needed. 13. Increase activity. Objective - Vital Signs Vital signs: Vital Signs Temp 98.2 F 08/20/24 14:05 Pulse 82 08/20/24 14:05 Resp 18 08/20/24 14:05 BP 107/65 08/20/24 14:05 Pulse Ox 96 08/20/24 14:05 FiO2 Intake & Output 08/20/24 08/20/24 08/21/24 06:59 18:59 06:59 Intake Total 440 Output Total 2650 1200 Balance -2650 -760 Intake: Oral 440 Output: Urine 2650 1200 Other: Voiding Method Urinal # Voids 3 # Bowel Movements 1 - Labs CBC & Chem 7: 08/20/24 03:22 08/20/24 03:22 Labs: Abnormal Lab Results - Last 24 Hours (Table) 08/20/24 08/20/24 Range/Units 03:22 03:22 RBC 3.23 L (4.40-5.60) X 10*6/uL Hgb 9.1 L (13.0-17.0) g/dL Hct 29.7 L (39.6-50.0) % MCHC 30.6 L (32.0-37.0) g/dL RDW 14.8 H (11.5-14.5) % Eosinophils # 0.54 H (0.04-0.35) X 10*3/uL BUN/Creatinine Ratio 11.38 L (12.00-20.00) Ratio Total Bilirubin <0.2 L (0.3-1.2) mg/dL Total Protein 5.8 L (6.2-8.2) g/dL Albumin 3.3 L (3.8-4.9) g/dL Albumin/Globulin Ratio 1.32 L (1.60-3.17) Ratio Microbiology - Last 24 Hours (Table) 08/17/24 16:45 Blood Culture - Preliminary Blood
[2024-08-21 04:01] LABS: African American GFR (CKD) >90 (>60 ml/min/1.73 sqM); Non-African American GFR(CKD) 90 (>60 ml/min/1.73 sqM)
--- NOTE | 2024-08-21 12:24 | P.PN ---
Subjective Progress Note Date: 08/21/24 Principal diagnosis: Reason for follow-up is bilateral lower extremity ulcer and cellulitis Patient is a 74-year-old male with a past medical history significant for hypertension osteoarthritis patient did have a history of bilateral lower extremity venous stasis ulcer right greater than the left and did have a right leg wound infection with MRSA presented to the hospital increasing swelling redness to all extremities patient right leg Dopplers were negative for DVT. On today's evaluation that is 08/21/2024,the patient denies any fever or any chills, patient is breathing comfortably on room air, the patient denies chest pain shortness of breath and no significant cough, patient denies abdominal pain, no nausea vomiting or diarrhea. Still complaining of pain to the lower extremity no drainage. Patient did have creatinine 0.80 Objective - Vital Signs Vital signs: Vital Signs Temp 98.1 F 08/21/24 08:00 Pulse 63 08/21/24 08:00 Resp 16 08/21/24 08:00 BP 117/54 08/21/24 08:00 Pulse Ox 93 L 08/21/24 08:00 FiO2 Intake & Output 08/20/24 08/21/24 08/21/24 18:59 06:59 18:59 Intake Total 440 200 Output Total 1200 1450 600 Balance -760 -1450 -400 Intake: Oral 440 200 Output: Urine 1200 1450 600 Other: Voiding Method Urinal # Bowel Movements 1 - Exam GENERAL DESCRIPTION: An elderly male up in bed in no distress RESPIRATORY SYSTEM: Unlabored breathing , decreased breath sounds at bases HEART: S1 S2 regular rate and rhythm , ABDOMEN: Soft , no tenderness EXTREMITIES: Bilateral lower extremity with a swelling more marked on the right leg with superficial ulceration with slough tissue redness almost resolved - Labs CBC & Chem 7: 08/20/24 03:22 08/21/24 03:00 Labs: Microbiology - Last 24 Hours (Table) 08/17/24 16:45 Blood Culture - Preliminary Blood Assessment and Plan (1) Cellulitis of right leg Current Visit: Yes Status: Acute Code(s): L03.115 - CELLULITIS OF RIGHT LOWER LIMB SNOMED Code(s): 80485836263331099 (2) Leg wound, right Current Visit: Yes Status: Acute Code(s): S81.801A - UNSPECIFIED OPEN WOUND, RIGHT LOWER LEG, INITIAL ENCOUNTER SNOMED Code(s): 11128086703593008 Plan: 1patient presented to hospital with increasing swelling redness to bilateral lower extremities, more in the right leg than the left leg, in this patient who did have some superficial ulceration concerning for venous stasis ulcer with secondary cellulitis and likely from gram-positive skin rupali in this patient who did have a previous history of MRSA infection 2-local wound care to continue with dry Aquacel silver dressing to the open area followed by Rocky wrap from just above the dose to below the knee change q. 48- hour 3-patient will be continued with vancomycin pharmacy to dose target trough of 15 however plan on oral Bactrim DS for 7 days on discharge to finish his course of therapy Dictation was produced using [employer] dictation software. please excuse any grammatical, word or spelling errors. Time with Patient: Less than 30
--- NOTE | 2024-08-21 14:17 | P.PN ---
Subjective Progress Note Date: 08/21/24 HISTORY OF PRESENT ILLNESS: This is a 74-year-old male one of my patient with a previous medical history significant for hypertension and hypertensive cardiovascular disease, hyperlipidemia, obesity with obstructive sleep apnea, history of chronic alcohol use and dependence with the peripheral neuropathy, significant spondylosis of the lumbar spine with spinal stenosis and significant chronic low back pain, patient was recently hospitalized at [facility] about a month ago for MRSA cellulitis of the left lower extremity along with multiple wounds secondary to him being picking on his skin along with significant rash that he was seen dermatology for and he was diagnosed with allergic dermatitis and scabies and he was admitted to the hospital last in May 2024 and he was treated with ivermectin as well as permethrin twice patient had recovered completely from this, he followed up with me as an outpatient in the office, however the patient has been living at the [facility], and he has not been coming to the office for quite some times, apparently he showed up to the emergency department yesterday with increased redness and increased swelling both lower extremities with venous ulcers that he has not been taking care of, patient apparently was admitted to the hospital for evaluation and treatment of bilateral lower extremity cellulitis and venous ulceration and he had a history of MRSA in the past that he was treated with vancomycin patient will be admitted to the hospital will be started on vancomycin IV and pharmacy to dose his peak and trough, infectious disease consultation with Dr. Medina 08/19: Patient is sitting up at the edge of the bed, he is eating his breakfast, he denies any chest pain, shortness of breath, he has no abdominal pain, he has not had a bowel movement yet, he is asking for milk magnesia as well as prune juice, he has been on lactulose along with MiraLAX along with a stool softener, I will continue to follow-up with the patient very closely, has been tolerating treatment plan he is currently on vancomycin with pharmacy to dose its peak and trough, he is also on ceftriaxone, infectious diseases following for his venous ulceration [facility], continue to increase protein intake, continue rocky wraps, continue elevate the legs, follow-up with the patient very closely. 08/20: Patient is laying down in bed in no apparent distress, he is complaining of increased pain in the left lower extremity, his venous Doppler was negative for DVT, he continues to have venous ulceration of both lower extremities, continue IV antibiotic, will continue with that, continue with Medihoney, continue with wrapping, continue current treatment plan, physical therapy evaluation, patient will likely be going back to [facility] with home health care. 08/21: Patient is sitting up in bed in no apparent distress, he denies any chest pain, shortness of breath, he feels better than yesterday, he has a good bowel movement yesterday, he has no abdominal pain, nausea vomiting or diarrhea, he continues to have the venous ulceration in both lower extremities, the cellulitis looks a lot better, he continues vancomycin, he will continue with local skin care, the plan for the patient to be discharged home to [facility] and home health care [facility] to follow-up with the patient as an outpatient hopefully in the next 1 or 2 days. REVIEW OF SYSTEMS: Constitutional: No documented fever, no chills, no night sweats. No weight change. positive for weakness , reports fatigue reports lethargy. Positive for daytime sleepiness. HEENT: No headache. No blurred vision or double vision, no loss of vision. No loss of Hearing, no ringing in the ears, no dizziness. No nasal drainage or congestion. No epistaxis. No sore throat. Lungs: No shortness of breath, no cough, no sputum production. No wheezing. Reports dyspnea with activity. Cardiovascular: No chest pain, positive for lower extremity edema. No palpitations. No paroxysmal nocturnal dyspnea. No orthopnea. No lighthea dedness or dizziness. No syncopal episodes.Positive for nocturia. Abdominal: No abdominal pain. No nausea, vomiting. No diarrhea. No constipation. No bloody or tarry stools . No loss of appetite. Genitourinary: No dysuria, increased frequency, urgency. No urinary retention. Musculoskeletal: positive for neck pain, positive for chronic low back pain, positive for pain in both lower extremities with significant neuropathy, positive for gait dysfunction, positive for lower extremity weakness. Integumentary: Positive for cellulitis with venous stasis and stasis dermatitis and venous ulcers Neurologic: No aphasia. No facial droop. Memory loss. No head injury. No headache, positive for paresthesia in both lower extremities Psychiatric: Patient does appear to be somewhat depressed, appears to be a bit anxious, no suicidal thoughts or ideation. Endocrine: No abnormal blood sugars, increased weight. PHYSICAL EXAMINATION: General: This is a 73-year-old male who is resting in bed and does not appear to be in acute distress. HEENT: Head is atraumatic, normocephalic, pupils were equal round reactive to light and recommendation, extraocular muscle movement were intact, sclera nonicteric, conjunctivae were pale, mucous membranes of the mouth are somewhat dry. Neck: Supple, no JVP, normal carotid upstroke bilaterally, no lymphadenopathy. Chest: Decreased breath sounds at the bases, few rhonchi, no expiratory wheezes, no chest wall tenderness, no intercostal retractions. Heart: First heart sound is normal, second heart sound is normal there is systolic ejection murmur 2/6 located in the left sternal border. Abdomen: Soft, nontender, nondistended, positive bowel sounds. Extremities: There is chronic significant venous stasis of right lower extremity with a chronic skin changes dorsalis pedis +1 bilaterally, cellulitis in both lower extremities. Neurologic examination: Patient is awake alert and oriented X 3, cranial nerves II-12 appear grossly intact, muscle power were 4 out of 5 in upper extremities and 3out of 5 in bilateral lower extremities, deep tendon reflexes were depressed bilaterally. Skin examination: Bilateral lower extremity venous stasis with stasis dermatitis and venous ulcers x 2 in the right lower extremity and x 1 on the left lower extremity, cellulitis mainly in the right lower extremity. ASSESSMENT AND PLAN: 1. Bilateral lower extremity cellulitis with venous ulceration with a prior history of MRSA start the patient on vancomycin pharmacy to dose peak and trough, continue ceftriaxone 2 g of piggyback every 24 hours try to obtain cultures and blood culture, infectious is consultation with Dr. Adam eden, continue Medihoney for the venous ulcerations, continue with Rocky wrap continue leg elevation. 2. Recent history of scabies that was treated with ivermectin and permethrin resolved. 3. Hypertension and hypertensive cardiovascular disease. Continue patient on amlodipine 5 mg daily, losartan 100 mg orally once every day. Will continue to monitor the patient very closely. 4. Hyperlipidemia. Continue atorvastatin 40 mg daily. Keep LDL 55-70. 5. Vascular dementia. We will continue Namenda 10 mg po bid 6. History of chronic alcohol use and dependence. patient has quit 7. 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 Patient on oxycodone 10/325 mg 1 tablet every 4 hours as needed, monitor the patient very closely. 8. Bilateral lower extremity neuropathy continue patient on Lyrica 200 mg orally twice every day. 9. Peripheral neuropathy. Continue patient on pregabalin 150 mg orally 2 times every day. 10. DVT prophylaxis. Continue Lovenox 40 mg subcutaneously every 24 hours. 11. GI prophylaxis. Continue Protonix 40 mg orally once every day and famotidine 20 mg orally once every day. 12. Constipation. Continue patient on MiraLAX 17 g in 8 ounce of water, lactulose 20 g orally twice every day, continue with Senokot, may add milk magnesia with prune juice as needed. 13. Increase activity. Objective - Vital Signs Vital signs: Vital Signs Temp 98.1 F 08/21/24 08:00 Pulse 63 08/21/24 08:00 Resp 16 08/21/24 08:00 BP 117/54 08/21/24 08:00 Pulse Ox 93 L 08/21/24 08:00 FiO2 Intake & Output 08/20/24 08/21/24 08/21/24 18:59 06:59 18:59 Intake Total 440 200 Output Total 1200 1450 600 Balance -760 -1450 -400 Intake: Oral 440 200 Output: Urine 1200 1450 600 Other: Voiding Method Urinal # Bowel Movements 1 - Labs CBC & Chem 7: 08/20/24 03:22 08/21/24 03:00 Labs: Microbiology - Last 24 Hours (Table) 08/17/24 16:45 Blood Culture - Preliminary Blood
[2024-08-21] MEDS: oxyCODONE-APAP 10-325MG 1 EACH TAB PO SCH (20:04)
[2024-08-22 08:15] VITALS: RESP 16
--- NOTE | 2024-08-22 10:36 | P.DS ---
Providers Date of admission: 08/17/24 18:15 Expected date of discharge: 08/22/24 Attending physician: Johnny Lane Consults: 08/18/24 09:31 Consult Physician Routine Consulting Provider: Matteo Medina Consult Reason/Comments: Cellulitis lower extremities Do you want consulting provider notified?: Yes Primary care physician: Johnny Lane Hospital Course: HISTORY OF PRESENT ILLNESS: This is a 74-year-old male one of my patient with a previous medical history significant for hypertension and hypertensive cardiovascular disease, hyperlipidemia, obesity with obstructive sleep apnea, history of chronic alcohol use and dependence with the peripheral neuropathy, significant spondylosis of the lumbar spine with spinal stenosis and significant chronic low back pain, patient was recently hospitalized at [facility] about a month ago for MRSA cellulitis of the left lower extremity along with multiple wounds secondary to him being picking on his skin along with significant rash that he was seen dermatology for and he was diagnosed with allergic dermatitis and scabies and he was admitted to the hospital last in May 2024 and he was treated with ivermectin as well as permethrin twice patient had recovered completely from this, he followed up with me as an outpatient in the office, however the patient has been living at the [facility], and he has not been coming to the office for quite some times, apparently he showed up to the emergency department yesterday with increased redness and increased swelling both lower extremities with venous ulcers that he has not been taking care of, patient apparently was admitted to the hospital for evaluation and treatment of bilateral lower extremity cellulitis and venous ulceration and he had a history of MRSA in the past that he was treated with vancomycin patient will be admitted to the hospital will be started on vancomycin IV and pharmacy to dose his peak and trough, infectious disease consultation with Dr. Medina 08/19: Patient is sitting up at the edge of the bed, he is eating his breakfast, he denies any chest pain, shortness of breath, he has no abdominal pain, he has not had a bowel movement yet, he is asking for milk magnesia as well as prune juice, he has been on lactulose along with MiraLAX along with a stool softener, I will continue to follow-up with the patient very closely, has been tolerating treatment plan he is currently on vancomycin with pharmacy to dose its peak and trough, he is also on ceftriaxone, infectious diseases following for his venous ulceration continue with local care with Medihoney, continue to increase protein intake, continue rocky wraps, continue elevate the legs, follow-up with the patient very closely. 08/20: Patient is laying down in bed in no apparent distress, he is complaining of increased pain in the left lower extremity, his venous Doppler was negative for DVT, he continues to have venous ulceration of both lower extremities, continue IV antibiotic, will continue with that, continue with Medihoney, continue with wrapping, continue current treatment plan, physical therapy evaluation, patient will likely be going back to [facility] with home health care. 08/21: Patient is sitting up in bed in no apparent distress, he denies any chest pain, shortness of breath, he feels better than yesterday, he has a good bowel movement yesterday, he has no abdominal pain, nausea vomiting or diarrhea, he continues to have the venous ulceration in both lower extremities, the cellulitis looks a lot better, he continues vancomycin, he will continue with local skin care, the plan for the patient to be discharged home to [facility] and home health care [facility] to follow-up with the patient as an outpatient hopefully in the next 1 or 2 days. 08/22: No new concerns overnight. Patient has been seen and followed by infectious disease with recommendations to transition IV antibiotics to oral Bactrim for 7-day course. Patient has been afebrile, heart rate in the 60s and 70s, blood pressure 129/65, pulse ox 98% on room air. Blood culture showing no growth at 72 hours. Patient is currently receiving local wound care with Aquacel silver dressing and Rocky wrap change every 48 hours[address] plan is in place for patient to go to [facility]. Patient will be discharged today once all arrangements are completed. DISCHARGE DIAGNOSES: 1. Bilateral lower extremity cellulitis with venous ulceration with a prior history of MRSA 2. Recent history of scabies that was treated with ivermectin and permethrin resolved. 3. Hypertension and hypertensive cardiovascular disease. 4. Hyperlipidemia. 5. Vascular dementia. 6. History of chronic alcohol use and dependence. patient has quit 7. 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 8. Bilateral lower extremity neuropathy 9. Constipation. DISCHARGE PLAN: [facility] Greater than 35 minutes was utilized and coordinating patient's discharge. Impression and plan of care have been directed as dictated by the signing physician. Suzan Willingham nurse practitioner acting as scribe for signing physician. Patient Condition at Discharge: Fair Plan - Discharge Summary New Discharge Prescriptions: New Docusate [Colace] 100 mg PO BID cap Magnesium Hydroxide [Milk of Magnesia] 2,400 mg PO BID PRN ml PRN Reason: Constipation Ibuprofen [Motrin] 600 mg PO TID PRN tab PRN Reason: Moderate Pain (Scale 4 To 6) Sulfamethox-Tmp 800-160Mg [Bactrim DS 800-160 mg] 1 tab PO Q12HR #14 tab Continue Furosemide [Lasix] 40 mg PO DAILY Atorvastatin [Lipitor] 40 mg PO DAILY tab Folic Acid 0.8 mg PO DAILY Lactulose [Cephulac] 20 gm PO BID #1800 ml Potassium Chloride ER [K-Dur 20] 20 meq PO DAILY #90 tab Triamcinolone 0.1% Cream [Kenalog 0.1% Cream] 1 applic TOPICAL BID #60 each amLODIPine [Norvasc] 10 mg PO DAILY #90 tab Montelukast [Singulair] 10 mg PO HS #90 tab Metoprolol Succinate (ER) [Toprol XL] 50 mg PO DAILY #90 tab Famotidine [Pepcid] 40 mg PO DAILY Baclofen 10 mg PO BID PRN PRN Reason: Muscle Pain Cetirizine HCl 10 mg PO DAILY hydrOXYzine HCL [Atarax] 25 mg PO TID PRN #90 tab PRN Reason: Itching polyethylene glycoL 3350 [Miralax] 17 gm PO DAILY #30 packet Losartan Potassium [Cozaar] 100 mg PO DAILY Pregabalin [Lyrica] 150 mg PO BID #6 cap oxyCODONE-APAP 10-325MG [Percocet 10-325 mg] 1 tab PO Q4H PRN #18 tab PRN Reason: Pain Discontinued Sennosides-Docusate Sodium [Senokot-S] 1 tab PO BID PRN PRN Reason: Constipation Discharge Medication List Furosemide [Lasix] 40 mg PO DAILY 04/24/23 [History] Atorvastatin [Lipitor] 40 mg PO DAILY tab 01/12/24 [Rx] Cetirizine HCl 10 mg PO DAILY 05/21/24 [History] Folic Acid 0.8 mg PO DAILY 05/21/24 [History] Lactulose [Cephulac] 20 gm PO BID #1800 ml 05/31/24 [Rx] Metoprolol Succinate (ER) [Toprol XL] 50 mg PO DAILY #90 tab 05/31/24 [Rx] Montelukast [Singulair] 10 mg PO HS #90 tab 05/31/24 [Rx] Potassium Chloride ER [K-Dur 20] 20 meq PO DAILY #90 tab 05/31/24 [Rx] Triamcinolone 0.1% Cream [Kenalog 0.1% Cream] 1 applic TOPICAL BID #60 each 05/31/24 [Rx] amLODIPine [Norvasc] 10 mg PO DAILY #90 tab 05/31/24 [Rx] hydrOXYzine HCL [Atarax] 25 mg PO TID PRN #90 tab 06/03/24 [Rx] polyethylene glycoL 3350 [Miralax] 17 gm PO DAILY #30 packet 06/03/24 [Rx] Baclofen 10 mg PO BID PRN 08/17/24 [History] Famotidine [Pepcid] 40 mg PO DAILY 08/17/24 [History] Losartan Potassium [Cozaar] 100 mg PO DAILY 08/17/24 [History] Docusate [Colace] 100 mg PO BID cap 08/22/24 [Rx] Ibuprofen [Motrin] 600 mg PO TID PRN tab 08/22/24 [Rx] Magnesium Hydroxide [Milk of Magnesia] 2,400 mg PO BID PRN ml 08/22/24 [Rx] Pregabalin [Lyrica] 150 mg PO BID #6 cap 08/22/24 [Rx] Sulfamethox-Tmp 800-160Mg [Bactrim DS 800-160 mg] 1 tab PO Q12HR #14 tab 08/22/24 [Rx] oxyCODONE-APAP 10-325MG [Percocet 10-325 mg] 1 tab PO Q4H PRN #18 tab 08/22/24 [Rx] Follow up Appointment(s)/Referral(s): Johnny Lane MD [Primary Care Provider] - As Needed (Following discharge from longterm) Ambulatory/Diagnostic Orders: Complete Blood Count w/diff [LAB.AMB] Location: None Selected Comprehensive Metabolic Panel [LAB.AMB] Location: None Selected Discharge Disposition: TRANSFER TO SNF/F
--- NOTE | 2024-08-22 12:20 | P.PN ---
Subjective Progress Note Date: 08/22/24 Principal diagnosis: Reason for follow-up is bilateral lower extremity ulcer and cellulitis Patient is a 74-year-old male with a past medical history significant for hypertension osteoarthritis patient did have a history of bilateral lower extremity venous stasis ulcer right greater than the left and did have a right leg wound infection with MRSA presented to the hospital increasing swelling redness to all extremities patient right leg Dopplers were negative for DVT. On today's evaluation that is 08/22/2024,the patient remains to be afebrile, patient is on room air not requiring supplemental oxygen and denies any shortness of breath no chest pain or cough.Patient denies having any nausea or vomiting, no abdominal pain and no diarrhea still complain of some discomfort to the lower extremity but no worsening. No lab draw today cultures has been negative Objective - Vital Signs Vital signs: Vital Signs Temp 98.1 F 08/22/24 07:27 Pulse 62 08/22/24 07:27 Resp 16 08/22/24 07:27 BP 129/65 08/22/24 07:27 Pulse Ox 98 08/22/24 07:27 FiO2 Intake & Output 08/21/24 08/22/24 08/22/24 18:59 06:59 18:59 Intake Total 320 500 Output Total 1025 250 Balance -705 250 Intake: Oral 320 500 Output: Urine 1025 250 Other: Voiding Method Urinal Urinal Toilet Urinal # Voids 2 - Exam GENERAL DESCRIPTION: An elderly male up in bed in no distress RESPIRATORY SYSTEM: Unlabored breathing , decreased breath sounds at bases HEART: S1 S2 regular rate and rhythm , ABDOMEN: Soft , no tenderness EXTREMITIES: Bilateral lower extremity currently dressed no drainage - Labs CBC & Chem 7: 08/20/24 03:22 08/21/24 03:00 Assessment and Plan (1) Cellulitis of right leg Current Visit: Yes Status: Acute Code(s): L03.115 - CELLULITIS OF RIGHT LOWE R LIMB SNOMED Code(s): 10876243514685908 (2) Leg wound, right Current Visit: Yes Status: Acute Code(s): S81.801A - UNSPECIFIED OPEN WOUND, RIGHT LOWER LEG, INITIAL ENCOUNTER SNOMED Code(s): 13632266828201823 Plan: 1patient presented to hospital with increasing swelling redness to bilateral lower extremities, more in the right leg than the left leg, in this patient who did have some superficial ulceration concerning for venous stasis ulcer with secondary cellulitis and likely from gram-positive skin rupali in this patient who did have a previous history of MRSA infection 2-local wound care to continue with dry Aquacel silver dressing to the open area followed by Rocky wrap from just above the dose to below the knee change q. 48- hour 3-patient has shown clinical movement of the vancomycin plan to finish therapy with oral Bactrim DS for 7 days on discharge and close outpatient follow-up Dictation was produced using [employer] dictation software. please excuse any grammatical, word or spelling errors. Time with Patient: Less than 30
[2024-08-22 14:15] VITALS: BP 105/63; PULSE 68; TEMP 97
[2024-08-22] MEDS ORDERED: VANCOMYCIN TROUGH DUE 1 EACH MISC MISCELLANE ONE (21:00)
== END 2024-08-22 15:42 | DRG 603 ==
LOC: EC 15:08 → 6NMEDSUR 18:14 → OBSVTOIN 18:15 → 4SSUR 08-18 04:41
PROVIDERS: ADMIT Internal Medicine; ATTEND Internal Medicine
DX: L03.115 Cellulitis of right lower limb (principal); N17.9 Acute kidney failure, unspecified; L97.821 Non-pressure chronic ulcer of other part of left lower leg limited to breakdown of skin; L97.811 Non-pressure chronic ulcer of other part of right lower leg limited to breakdown of skin; L03.116 Cellulitis of left lower limb; M47.812 Spondylosis without myelopathy or radiculopathy, cervical region; N40.0 Benign prostatic hyperplasia without lower urinary tract symptoms; K59.00 Constipation, unspecified; E03.9 Hypothyroidism, unspecified; E66.9 Obesity, unspecified; E78.5 Hyperlipidemia, unspecified; F01.50 Vascular dementia, unspecified severity, without behavioral disturbance, psychotic disturbance, mood disturbance, and anxiety; G25.81 Restless legs syndrome; G89.4 Chronic pain syndrome; I10 Essential (primary) hypertension; I87.8 Other specified disorders of veins; G57.93 Unspecified mononeuropathy of bilateral lower limbs; I87.2 Venous insufficiency (chronic) (peripheral); Z86.14 Personal history of Methicillin resistant Staphylococcus aureus infection; Z82.49 Family history of ischemic heart disease and other diseases of the circulatory system; Z80.1 Family history of malignant neoplasm of trachea, bronchus and lung
CPT/HCPCS: 36415; 80053; 80202; 81003; 82565; 83605; 83735; 83880; 84100; 84484; 85025; 85379; 85610; 85730; 87040; 93005; 93970; 96361; 96365; 96366; 96375; 99285

== ENCOUNTER 2024-09-23 17:41 | Inpatient (IN) | payer MEDICARE ==
[2024-09-23 18:03] LABS: Glucose,Whole Blood 119 mg/dL (70-110)
[2024-09-23] MEDS: NALOXONE 0.4 MG/ML 1 ML VIAL IVP STA (18:05)
[2024-09-23 18:25] LABS: VBG PH 7.42 (7.31-7.41)
[2024-09-23 18:34] LABS: Partial Thromboplastin Time 22.5 sec (22.0-30.0); Prothrombin Time 10.8 sec (10.0-12.5)
[2024-09-23 18:40] LABS: ALT 12 U/L (4-49); AST 28 U/L (17-59); African American GFR (CKD) 62 (>60 ml/min/1.73 sqM); Alcohol <10 mg/dL; Alkaline Phosphatase 89 U/L (38-126); Anion Gap 8 mmol/L; Blood Urea Nitrogen 42 mg/dL (9-20); Calcium 9.5 mg/dL (8.4-10.2); Carbon Dioxide 30 mmol/L (22-30); Chloride 102 mmol/L (98-107); Glucose 115 mg/dL (74-99); Non-African American GFR(CKD) 53 (>60 ml/min/1.73 sqM); Potassium 4.7 mmol/L (3.5-5.1); Sodium 140 mmol/L (137-145); Total Bilirubin 0.7 mg/dL (0.2-1.3)
--- NOTE | 2024-09-23 18:40 | ED ---
General Adult HPI - General Chief complaint: Fall Stated complaint: AMS Time Seen by Provider: 09/23/24 17:50 Source: patient, EMS, RN notes reviewed, old records reviewed Mode of arrival: EMS Limitations: altered mental status - History of Present Illness Initial comments: This is a 74-year-old male who was sent in because he was found down on the floo r confused more than normal. Patient was not answering any questions initially and then when the nurse poked him in the arm he was able to answer most questions normally but still could not tell us why he was on the ground and denied any pain at this time. Patient was still confused he was alert and oriented x 2 only. No family members or any other caregivers are with the patient to give further history - Related Data Home Medications Medication Instructions Recorded Confirmed Furosemide [Lasix] 40 mg PO DAILY 04/24/23 09/23/24 Cetirizine HCl 10 mg PO DAILY 05/21/24 09/23/24 Folic Acid 0.8 mg PO DAILY 05/21/24 09/23/24 Baclofen 10 mg PO BID PRN 08/17/24 09/23/24 Famotidine [Pepcid] 40 mg PO DAILY 08/17/24 09/23/24 Losartan Potassium [Cozaar] 100 mg PO DAILY 08/17/24 09/23/24 Ipratropium-Albuterol Nebulize 3 ml INHALATION RT-Q6H PRN 09/23/24 09/23/24 [Duoneb 0.5 mg-3 mg/3 ml Soln] Torsemide [Demadex] 20 mg PO DAILY 09/23/24 09/23/24 Previous Rx's Medication Instructions Recorded Atorvastatin [Lipitor] 40 mg PO DAILY tab 01/12/24 Lactulose [Cephulac] 20 gm PO BID #1800 ml 05/31/24 Metoprolol Succinate (ER) [Toprol 50 mg PO DAILY #90 tab 05/31/24 XL] Montelukast [Singulair] 10 mg PO HS #90 tab 05/31/24 Potassium Chloride ER [K-Dur 20] 20 meq PO DAILY #90 tab 05/31/24 Triamcinolone 0.1% Cream [Kenalog 1 applic TOPICAL BID #60 each 05/31/24 0.1% Cream] amLODIPine [Norvasc] 10 mg PO DAILY #90 tab 05/31/24 hydrOXYzine HCL [Atarax] 25 mg PO TID PRN #90 tab 06/03/24 polyethylene glycoL 3350 [Miralax] 17 gm PO DAILY #30 packet 06/03/24 Docusate [Colace] 100 mg PO BID cap 08/22/24 Ibuprofen [Motrin] 600 mg PO TID PRN tab 08/22/24 Magnesium Hydroxide [Milk of 2,400 mg PO BID PRN ml 08/22/24 Magnesia] Pregabalin [Lyrica] 150 mg PO BID #6 cap 08/22/24 oxyCODONE-APAP 10-325MG [Percocet 1 tab PO Q4H PRN #18 tab 08/22/24 10-325 mg] Allergies Allergy/AdvReac Type Severity Reaction Status Date / Time No Known Allergies Allergy Verified 09/23/24 19:51 Review of Systems ROS Statement: Those systems with pertinent positive or pertinent negative responses have been documented in the HPI. ROS Other: All systems not noted in ROS Statement are negative. Past Medical History Past Medical History: Hypertension, Osteoarthritis (OA) Additional Past Medical History / Comment(s): ETOH abuse, chronic back pain, BLE neuropathy, lymphedema, multiple falls History of Any Multi-Drug Resistant Organisms: MRSA Date of last positivie culture/infection: 04/23/24 MDRO Source:: RT LEG Past Surgical History: Back Surgery, Orthopedic Surgery, Tonsillectomy Additional Past Surgical History / Comment(s): 3 back laminectomies, hand surgery s/p trauma to reattatch tendons Past Anesthesia/Blood Transfusion Reactions: No Reported Reaction Past Psychological History: No Psychological Hx Reported Smoking Status: Never smoker Past Alcohol Use History: Daily, Heavy Past Drug Use History: None Reported - Past Family History Father Family Medical History: Hypertension Mother Family Medical History: Cancer Additional Family Medical History / Comment(s): Lung cancer Brother(s) Family Medical History: No Reported History Sister(s) Family Medical History: Hypertension Daughter(s) Family Medical History: No Reported History General Exam - General Exam Comments Initial Comments: GENERAL: Patient is well-developed and well-nourished. Patient is nontoxic and well- hydrated and is in mild distress. ENT: Neck is soft and supple. No significant lymphadenopathy is noted. Oropharynx is clear. Moist mucous membranes. Neck has full range of motion without eliciting any pain. EYES: The sclera were anicteric and conjunctiva were pink and moist. Extraocular movements were intact and pupils were equal round and reactive to light. Eyelids were unremarkable. PULMONARY: Unlabored respirations. Good breath sounds bilaterally. No audible rales rhonchi or wheezing was noted. CARDIOVASCULAR: There is a regular rate and rhythm without any murmurs gallops or rubs. ABDOMEN: Soft and nontender with normal bowel sounds. SKIN: Skin is clear with no lesions or rashes and otherwise unremarkable. NEUROLOGIC: Patient is alert and oriented x 2. Cranial nerves II through XII are grossly intact. Motor and sensory are also intact. Normal speech, volume and content. Symmetrical smile. MUSCULOSKELETAL: Normal extremities with adequate strength and full range of motion. LYMPHATICS: No significant lymphadenopathy is noted PSYCHIATRIC: Normal psychiatric evaluation. Limitations: altered mental status Course Vital Signs 09/23/24 09/23/24 09/23/24 17:44 18:05 20:01 Temperature 98.7 F 98.8 F Pulse Rate 82 81 Respiratory 18 16 16 Rate Blood Pressure 136/44 142/61 O2 Sat by Pulse 92 L 98 Oximetry Medical Decision Making - Medical Decision Making EKG was interpreted by myself EKG shows sinus rhythm at 90 bpm [place] interval 137 QRS is 81 QT interval is 356 QTc is 404. Patient's EKG shows no ST segment elev ation or depression Was pt. sent in by a medical professional or institution (, [facility], GUEST RELATIONS RECEPTIONIST, urgent c are, hospital, or custodial...) When possible be specific @ -No Did you speak to anyone other than the patient for history (EMS, parent, family, police, friend...)? What history was obtained from this source @ -No Did you review nursing and triage notes (agree or disagree)? Why? @ -I reviewed and agree with nursing and triage notes Were old charts reviewed (outside hosp., previous admission, EMS record, old EKG, old radiological studies, urgent care reports/EKG's, custodial records)? Report findings @ -No old charts were reviewed Differential Diagnosis? @ -Differential Altered Mental Status: Hypoglycemia, DKA, hypercapnia, ETOH, overdose, CO poisoning, trauma, myxedema coma, HTN encephalopathy, infection, encephalitis, psychosis, intercranial hemorrhage, hepatic encephalopathy, meningitis, CVA, this is not meant to be an all-inclusive list EKG interpreted by me (3pts min.). @ -As above X-rays interpreted by me (1pt min.). @ -Chest x-ray shows no acute abnormality CT interpreted by me (1pt min.). @ -CTA of the brain and C-spine is of poor quality there is no soft tissue swe lling or signs of trauma however because of the significant movement in the subdural cannot be on a percent ruled out but is considered to be more likely to be artifactual C-spine shows no obvious signs of trauma however it is of poor quality. U/S interpreted by me (1pt. min.). @ -None done What testing was considered but not performed or refused? (CT, X-rays, U/S, labs)? Why? @ -None What meds were considered but not given or refused? Why? @ -None Did you discuss the management of the patient with other professionals (professionals i.e. , PA, GUEST RELATIONS RECEPTIONIST, lab, RT, psych nurse, social media content specialist, methods examiner, teacher, annual giving officer, housing case manager)? Give summary @ -Spoke with Dr. Lane he agreed admit the patient admit the patient wrote admitting orders Was smoking cessation discussed for >3mins.? @ -No Was critical care preformed (if so, how long)? @ -No Were there social determinants of health that impacted care today? How? (Homelessness, low income, unemployed, alcoholism, drug addiction, transport ation, low edu. Level, literacy, decrease access to med. care, group home, rehab)? @ -No Was there de-escalation of care discussed even if they declined (Discuss DNR or withdrawal of care, Hospice)? DNR status @ -No What co-morbidities impacted this encounter? (DM, HTN, Smoking, COPD, CAD, Cancer, CVA, ARF, Chemo, Hep., AIDS, mental health diagnosis, sleep apnea, morbid obesity)? @ -None Was patient admitted / discharged? Hospital course, mention meds given and route, prescriptions, significant lab abnormalities, going to OR and other pertinent info. @ -Patient arrived with pinpoint pupils and somewhat lethargic. Patient was given 0.4 of Narcan patient's was given a second dose when he did respond to the first dose and he became very agitated more confused and would not settle down he was very fidgety and would not sit still for CAT scans he was given 2 of Ativan at which point in time he became less agitated but difficult to arouse. Undiagnosed new problem with uncertain prognosis? @ -No Drug Therapy requiring intensive monitoring for toxicity (Heparin, Nitro, Insulin, Cardizem)? @ -No Were any procedures done? @ -No Diagnosis/symptom? @ -Altered mental status Acute, or Chronic, or Acute on Chronic? @ -Acute Uncomplicated (without systemic symptoms) or Complicated (systemic symptoms)? @ -Complicated Side effects of treatment? @ -No Exacerbation, Progression, or Severe Exacerbation? @ -No Poses a threat to life or bodily function? How? (Chest pain, [place], CA, pneumonia, PE, COPD, DKA, ARF, appy, cholecystitis, CVA, Diverticulitis, Homicidal, Suicidal, threat to staff... and all critical care pts) @ -Yes this could be secondary to infectious or overdose or CVA - Lab Data Result diagrams: 09/23/24 18:10 09/23/24 18:10 Lab Results 09/23/24 09/23/24 09/23/24 Range/Units 18:01 18:10 18:10 WBC 9.5 (3.8-10.6) k/uL RBC 3.60 L (4.30-5.90) m/uL Hgb 10.1 L (13.0-17.5) gm/dL Hct 31.2 L (39.0-53.0) % MCV 86.5 (80.0-100.0) fL MCH 27.9 (25.0-35.0) pg MCHC 32.3 (31.0-37.0) g/dL RDW 14.6 (11.5-15.5) % Plt Count 232 (150-450) k/uL MPV 8.3 Neutrophils % 80 % Lymphocytes % 11 % Monocytes % 6 % Eosinophils % 2 % Basophils % 0 % Neutrophils # 7.6 (1.3-7.7) k/uL Lymphocytes # 1.0 (1.0-4.8) k/uL Monocytes # 0.6 (0-1.0) k/uL Eosinophils # 0.2 (0-0.7) k/uL Basophils # 0.0 (0-0.2) k/uL PT 10.8 (10.0-12.5) sec INR 1.0 (<1.2) APTT 22.5 (22.0-30.0) sec VBG pH (7.31-7.41) VBG pCO2 (37-51) mmHg VBG HCO3 (24-28) mmol/L Sodium (137-145) mmol/L Potassium (3.5-5.1) mmol/L Chloride (98-107) mmol/L Carbon Dioxide (22-30) mmol/L Anion Gap mmol/L BUN (9-20) mg/dL Creatinine (0.66-1.25) mg/dL Est GFR (CKD-EPI)AfAm (>60 ml/min/1.73 sqM) Est GFR (CKD-EPI)NonAf (>60 ml/min/1.73 sqM) Glucose (74-99) mg/dL POC Glucose (mg/dL) 119 H (70-110) mg/dL POC Glu Medical Screener ID Belval Teodora Calcium (8.4-10.2) mg/dL Magnesium (1.6-2.3) mg/dL Total Bilirubin (0.2-1.3) mg/dL AST (17-59) U/L ALT (4-49) U/L Alkaline Phosphatase (38-126) U/L Troponin I (0.000-0.034) ng/mL Total Protein (6.3-8.2) g/dL Albumin (3.5-5.0) g/dL Urine Opiates Screen (NotDetected) Ur Oxycodone Screen (NotDetected) Urine Methadone Screen (NotDetected) Ur Barbiturates Screen (NotDetected) U Tricyclic Antidepress (NotDetected) Ur Phencyclidine Scrn (NotDetected) Ur Amphetamines Screen (NotDetected) U Methamphetamines Scrn (NotDetected) U Benzodiazepines Scrn (NotDetected) Urine Cocaine Screen (NotDetected) U Marijuana (THC) Screen (NotDetected) Serum Alcohol mg/dL 09/23/24 09/23/24 09/23/24 Range/Units 18:10 18:10 18:10 WBC (3.8-10.6) k/uL RBC (4.30-5.90) m/uL Hgb (13.0-17.5) gm/dL Hct (39.0-53.0) % MCV (80.0-100.0) fL MCH (25.0-35.0) pg MCHC (31.0-37.0) g/dL RDW (11.5-15.5) % Plt Count (150-450) k/uL MPV Neutrophils % % Lymphocytes % % Monocytes % % Eosinophils % % Basophils % % Neutrophils # (1.3-7.7) k/uL Lymphocytes # (1.0-4.8) k/uL Monocytes # (0-1.0) k/uL Eosinophils # (0-0.7) k/uL Basophils # (0-0.2) k/uL PT (10.0-12.5) sec INR (<1.2) APTT (22.0-30.0) sec VBG pH 7.42 H (7.31-7.41) VBG pCO2 44 (37-51) mmHg VBG HCO3 29 H (24-28) mmol/L Sodium 140 (137-145) mmol/L Potassium 4.7 (3.5-5.1) mmol/L Chloride 102 (98-107) mmol/L Carbon Dioxide 30 (22-30) mmol/L Anion Gap 8 mmol/L BUN 42 H (9-20) mg/dL Creatinine 1.33 H (0.66-1.25) mg/dL Est GFR (CKD-EPI)AfAm 62 (>60 ml/min/1.73 sqM) Est GFR (CKD-EPI)NonAf 53 (>60 ml/min/1.73 sqM) Glucose 115 H (74-99) mg/dL POC Glucose (mg/dL) (70-110) mg/dL POC Glu Medical Screener ID Calcium 9.5 (8.4-10.2) mg/dL Magnesium (1.6-2.3) mg/dL Total Bilirubin 0.7 (0.2-1.3) mg/dL AST 28 (17-59) U/L ALT 12 (4-49) U/L Alkaline Phosphatase 89 (38-126) U/L Troponin I <0.012 (0.000-0.034) ng/mL Total Protein 7.0 (6.3-8.2) g/dL Albumin 4.0 (3.5-5.0) g/dL Urine Opiates Screen (NotDetected) Ur Oxycodone Screen (NotDetected) Urine Methadone Screen (NotDetected) Ur Barbiturates Screen (NotDetected) U Tricyclic Antidepress (NotDetected) Ur Phencyclidine Scrn (NotDetected) Ur Amphetamines Screen (NotDetected) U Methamphetamines Scrn (NotDetected) U Benzodiazepines Scrn (NotDetected) Urine Cocaine Screen (NotDetected) U Marijuana (THC) Screen (NotDetected) Serum Alcohol <10 mg/dL 09/23/24 09/23/24 Range/Units 18:10 18:33 WBC (3.8-10.6) k/uL RBC (4.30-5.90) m/uL Hgb (13.0-17.5) gm/dL Hct (39.0-53.0) % MCV (80.0-100.0) fL MCH (25.0-35.0) pg MCHC (31.0-37.0) g/dL RDW (11.5-15.5) % Plt Count (150-450) k/uL MPV Neutrophils % % Lymphocytes % % Monocytes % % Eosinophils % % Basophils % % Neutrophils # (1.3-7.7) k/uL Lymphocytes # (1.0-4.8) k/uL Monocytes # (0-1.0) k/uL Eosinophils # (0-0.7) k/uL Basophils # (0-0.2) k/uL PT (10.0-12.5) sec INR (<1.2) APTT (22.0-30.0) sec VBG pH (7.31-7.41) VBG pCO2 (37-51) mmHg VBG HCO3 (24-28) mmol/L Sodium (137-145) mmol/L Potassium (3.5-5.1) mmol/L Chloride (98-107) mmol/L Carbon Dioxide (22-30) mmol/L Anion Gap mmol/L BUN (9-20) mg/dL Creatinine (0.66-1.25) mg/dL Est GFR (CKD-EPI)AfAm (>60 ml/min/1.73 sqM) Est GFR (CKD-EPI)NonAf (>60 ml/min/1.73 sqM) Glucose (74-99) mg/dL POC Glucose (mg/dL) (70-110) mg/dL POC Glu Medical Screener ID Calcium (8.4-10.2) mg/dL Magnesium 2.8 H (1.6-2.3) mg/dL Total Bilirubin (0.2-1.3) mg/dL AST (17-59) U/L ALT (4-49) U/L Alkaline Phosphatase (38-126) U/L Troponin I (0.000-0.034) ng/mL Total Protein (6.3-8.2) g/dL Albumin (3.5-5.0) g/dL Urine Opiates Screen Not Detected (NotDetected) Ur Oxycodone Screen Detected H (NotDetected) Urine Methadone Screen Not Detected (NotDetected) Ur Barbiturates Screen Not Detected (NotDetected) U Tricyclic Antidepress Not Detected (NotDetected) Ur Phencyclidine Scrn Not Detected (NotDetected) Ur Amphetamines Screen Not Detected (NotDetected) U Methamphetamines Scrn Not Detected (NotDetected) U Benzodiazepines Scrn Not Detected (NotDetected) Urine Cocaine Screen Not Detected (NotDetected) U Marijuana (THC) Screen Not Detected (NotDetected) Serum Alcohol mg/dL Disposition Clinical Impression: Altered mental status, Opioid withdrawal Disposition: ADMITTED IP TO THIS HOSP Referrals: Johnny Lane MD [Primary Care Provider] - 1-2 days Time of Disposition: 21:12
[2024-09-23 18:54] LABS: Basophils % (A) 0 %; Eosinophils # (A) 0.2 k/uL (0-0.7); Eosinophils % (A) 2 %; HCT 31.2 % (39.0-53.0); HGB 10.1 gm/dL (13.0-17.5); Lymphocytes % (A) 11 %; MCH 27.9 pg (25.0-35.0); MCHC 32.3 g/dL (31.0-37.0); MCV 86.5 fL (80.0-100.0); Mean Platelet Volume 8.3; Monocytes # (A) 0.6 k/uL (0-1.0); Monocytes % (A) 6 %; Neutrophils # (A) 7.6 k/uL (1.3-7.7); Neutrophils % (A) 80 %; Platelet Count 232 k/uL (150-450); RDW 14.6 % (11.5-15.5); WBC 9.5 k/uL (3.8-10.6)
[2024-09-23 19:06] LABS: Amphetamine Screen,Urine Not Detected (NotDetected); Barbiturate Screen,Urine Not Detected (NotDetected); Benzodiazepines Screen,Urine Not Detected (NotDetected); Cocaine Screen,Urine Not Detected (NotDetected); Methadone Screen, Urine Not Detected (NotDetected); Opiate Screen,Urine Not Detected (NotDetected); Oxycodone Screen, Urine Detected (NotDetected); Phencyclidine Screen,Urine Not Detected (NotDetected); Tricyclic Antidepressant,Urine Not Detected (NotDetected); Urn Cannabinoid Scrn Not Detected (NotDetected)
[2024-09-23] MEDS: LORazepam 2 MG/ML INJ IV STA ×2 (19:37→19:53)
--- NOTE | 2024-09-23 20:35 | XR ---
EXAMINATION TYPE: XR chest 2V DATE OF EXAM: 09/23/2024 8:02 PM CLINICAL INDICATION:Male, 74 years old with history of altered mental status; [facility] COMPARISON: Chest radiograph 04/24/2024 TECHNIQUE: XR chest 2V Frontal view of the chest. FINDINGS: Poor penetration exam limits evaluation. Hazy opacity seen in the left lower lung zone effacing the costophrenic sulcus. No pneumothorax. Mild prominence of interstitial markings. The cardiac silhouette is partially obscured but enlarged. No acute osseous abnormalities. Other findings: None IMPRESSION: Mild cardiomegaly with a suggested left trace pleural effusion and mild pulmonary edema. [facility], , 09/23/2024 8:32 PM
--- NOTE | 2024-09-23 20:54 | CT ---
EXAMINATION TYPE: CT brain cspine wo con CT DLP: 1704.5 mGycm, Automated exposure control for dose reduction was used. DATE OF EXAM: 09/23/2024 8:07 PM COMPARISON: None. CLINICAL INDICATION:Male, 74 years old with history of Trauma; Pt c/o fall with AMS, unresponsive to directions and would not stop moving during the exam, even after being given meds to calm him, best p ossible images. TECHNIQUE: Brain: Multiple axial CT images of the brain were obtained without IV contrast. Cspine: Axial CT images from the skull base to the inferior aspect of T2 we obtained without intraven ous contrast. Coronal and sagittal reformatted images were also reviewed. . FINDINGS: Significant motion artifact on exam degrades quality of images limiting evaluation. Brain: Extra-axial spaces: There is hyperattenuation involving the bilateral subdural space adjacent to the calvarium which may be related to significant motion artifact and beam hardening present on exam. Ventricular system: Dilatation in proportion to cerebral atrophy. Cerebral parenchyma: Cerebral atrophy. No gross acute intraparenchymal hemorrhage or mass effect. Th e dubon-white junction is grossly well differentiated. Cerebellum: Grossly unremarkable. Mass effect: No gross evidence of midline shift. Intracranial vasculature: Grossly unremarkable Soft tissues: Grossly unremarkable. Calvarium/osseous structures: No gross acute depressed skull fracture. Paranasal sinuses and mastoid air cells: Grossly clear. Visualized orbits: Orbital contents are grossly intact. Cervical spine: Fracture: Limited evaluation but no gross evidence for acute fracture. Osseous structures: Limited evaluation however there is multilevel degenerative disease suggested. Vertebral alignment: Limited evaluation with alignment appearing in normal limits. Spinal canal/Neural Foramina: There is difficulty in evaluation of the spinal canal secondary to sign ificant motion artifact. The spinal canal appears grossly patent. Neck soft tissues: Prevertebral soft tissues are grossly within normal limits. Other: The airway grossly appears patent. The lung apices appear clear. IMPRESSION: Exam is severely limited and essentially nondiagnostic. There is circumferential hyperattenuation see n along the bilateral subdural spaces adjacent to the calvarium which may represent artifact from brad m hardening and significant motion versus bilateral subdural hematomas. Short-term follow-up should b e repeated as clinically indicated when patient can better tolerate the exam. Severe limitations in evaluating the cervical spine secondary to significant motion artifact. Short-t erm follow-up should be repeated as clinically indicated when patient can better tolerate the exam. Findings of the case were discussed with Dr. Islas by Dr. Maldonado over the phone at 8:49 PM on 09/23/2024 [facility], , 09/23/2024 8:52 PM
[2024-09-23] MEDS: SODIUM CHLORIDE 0.9% 1,000 ML IV ONE (22:30)
[2024-09-24 04:03] LABS: Glucose,Whole Blood 107 mg/dL (70-110)
[2024-09-24] MEDS ORDERED: IPRATROPIUM-ALBUTEROL 3 ML NEB INHALATION PRN (10:52)
[2024-09-24] MEDS: FAMOTIDINE 20 MG TAB PO SCH (11:50)
[2024-09-24] MEDS: oxyCODONE-APAP 10-325MG 1 EACH TAB PO PRN ×2 (14:15→21:15)
--- NOTE | 2024-09-24 14:32 | CT ---
EXAMINATION TYPE: CT brain wo con DATE OF EXAM: 09/24/2024 COMPARISON: 01/05/2024 CLINICAL INDICATION: Male, 74 years old with history of ams; [facility], AMS CT DLP: 1227.4 mGycm Automated exposure control for dose reduction was used. Findings: The exam is limited by involuntary patient motion. The ventricles, basal cisterns and sulci over the convexities are within normal limits for the patient's age and there is no mass effect or shift of mi dline structures. No abnormal density is seen throughout the brain parenchyma and there is no acute intra or extra-axia l hemorrhage. The posterior fossa including the brainstem, fourth ventricle and cerebellar pontine angles appear no rmal. Intraorbital contents appear normal and symmetric. Visualized paranasal sinuses and mastoid air cells are well aerated. The calvarium is intact. IMPRESSION: 1. Limited by involuntary patient motion. 2. No acute bleed or mass effect. 3. No significant interval change. [facility], , 09/24/2024 2:30 PM
--- NOTE | 2024-09-24 15:46 | P.CNNES ---
History of Present Illness Consult date: 09/24/24 Requesting physician: Geovanny Islas Reason for Consult: altered mental status History of Present Illness: This is a 74-year-old gentleman who presented emergency department because of he was found down on the floor confused more than normal. Prior to going in the room the patient nurse notified me that the patient is very argumentative. And upon walking in the room patient as a nurse stated correctly was very argu mentative and was asking me what what I do for his pain. He stated that he has nerve pain and that he tried gabapentin, Lyrica and Cymbalta in the past and he did not think they are effective. He could not tell me he followed up with a neurologist or not. States he has chronic low back pain. Could not elaborate more about his episode of confusion that he had. According to the nurse she stated that she received some information from the ED team that the patient possibly overdosed on oxycodone. And I did see the information in the ED team that the patient presents with a pinpoint pupils somewhat lethargic and he was given Narcan x 2 and he did response and was very agitated more confused and was fidgety. He was given 2 mg Ativan for the CAT scan. During this hospital visit initially his oxycodone was stopped and now it is resumed but not as frequent and the patient is upset about that. Some of the workup during this hospital visit consisted of: Pulse ox during this hospital visit of 87 L Urine drug screen is positive for oxycodone. Reviewed the rest of the lab workup CT brain cervical spine is reported as exam is severely limited and essentially nondiagnostic. There is circumstantial hyperattenuation seen along the bilateral subdural space adjacent to the calvarium which may represent artifact from the beam hardening and significant motion versus bilateral subdural jose carolynn. Short-term follow-up should be repeated as clinically indicated 1 the patient can better tolerate exam. Severe limitation in evaluating the cervical spine secondary due to significant motion artifact. Short-term follow-up should be repeated as clinically indicated 1 the patient can better tolerate exam. Patient reviewed the CT of the head and I personally agree that there is severe motion artifact but I do not appreciate any bleeding or subdural. Review of Systems Limited Past Medical History Past Medical History: Hypertension, Osteoarthritis (OA) Additional Past Medical History / Comment(s): ETOH abuse, chronic back pain, BLE neuropathy, lymphedema, multiple falls, cellulitis History of Any Multi-Drug Resistant Organisms: MRSA Date of last positivie culture/infection: 04/23/24 MDRO Source:: RT LEG Past Surgical History: Back Surgery, Orthopedic Surgery, Tonsillectomy Additional Past Surgical History / Comment(s): 3 back laminectomies, hand surgery s/p trauma to reattatch tendons Past Anesthesia/Blood Transfusion Reactions: No Reported Reaction Past Psychological History: No Psychological Hx Reported Additional Psychological History / Comment(s): Patient has fear that he has ons et dementia. Smoking Status: Never smoker, Unknown if ever smoked Past Alcohol Use History: Daily, Heavy Additional Past Alcohol Use History / Comment(s): Patient has been clean of alcohol use for 3 days. Past Drug Use History: None Reported Additional Drug Use History / Comment(s): Patient states that he hasn't drank alcohol in over 2 years. - Past Family History Father Family Medical History: Hypertension Mother Family Medical History: Cancer Additional Family Medical History / Comment(s): Lung cancer Brother(s) Family Medical History: No Reported History Sister(s) Family Medical History: Hypertension Daughter(s) Family Medical History: No Reported History Medications and Allergies Home Medications Medication Instructions Recorded Confirmed Type Furosemide [Lasix] 40 mg PO DAILY 04/24/23 09/23/24 History Atorvastatin [Lipitor] 40 mg PO DAILY tab 01/12/24 09/23/24 Rx Cetirizine HCl 10 mg PO DAILY 05/21/24 09/23/24 History Folic Acid 0.8 mg PO DAILY 05/21/24 09/23/24 History Lactulose [Cephulac] 20 gm PO BID #1800 ml 05/31/24 09/23/24 Rx Metoprolol Succinate (ER) [Toprol 50 mg PO DAILY #90 tab 05/31/24 09/23/24 Rx XL] Montelukast [Singulair] 10 mg PO HS #90 tab 05/31/24 09/23/24 Rx Potassium Chloride ER [K-Dur 20] 20 meq PO DAILY #90 tab 05/31/24 09/23/24 Rx Triamcinolone 0.1% Cream [Kenalog 1 applic TOPICAL BID #60 each 05/31/24 09/23/24 Rx 0.1% Cream] amLODIPine [Norvasc] 10 mg PO DAILY #90 tab 05/31/24 09/23/24 Rx hydrOXYzine HCL [Atarax] 25 mg PO TID PRN #90 tab 06/03/24 09/23/24 Rx polyethylene glycoL 3350 [Miralax] 17 gm PO DAILY #30 packet 06/03/24 09/23/24 Rx Baclofen 10 mg PO BID PRN 08/17/24 09/23/24 History Famotidine [Pepcid] 40 mg PO DAILY 08/17/24 09/23/24 History Losartan Potassium [Cozaar] 100 mg PO DAILY 08/17/24 09/23/24 History Docusate [Colace] 100 mg PO BID cap 08/22/24 09/23/24 Rx Ibuprofen [Motrin] 600 mg PO TID PRN tab 08/22/24 09/23/24 Rx Magnesium Hydroxide [Milk of 2,400 mg PO BID PRN ml 08/22/24 09/23/24 Rx Magnesia] Pregabalin [Lyrica] 150 mg PO BID #6 cap 08/22/24 09/23/24 Rx oxyCODONE-APAP 10-325MG [Percocet 1 tab PO Q4H PRN #18 tab 08/22/24 09/23/24 Rx 10-325 mg] Ipratropium-Albuterol Nebulize 3 ml INHALATION RT-Q6H PRN 09/23/24 09/23/24 History [Duoneb 0.5 mg-3 mg/3 ml Soln] Torsemide [Demadex] 20 mg PO DAILY 09/23/24 09/23/24 History Allergies Allergy/AdvReac Type Severity Reaction Status Date / Time No Known Allergies Allergy Verified 09/23/24 19:51 Physical Examination - Vital Signs Vital Signs: Vital Signs Temp Pulse Resp BP Pulse Ox 09/24/24 08:00 97.3 F L 84 18 106/40 92 L 09/24/24 07:00 86 18 95 09/24/24 06:50 87 39 H 79 L 09/24/24 06:40 89 11 L 96 09/24/24 06:30 85 20 94 L 09/24/24 06:20 92 22 93 L 09/24/24 06:10 87 15 92 L 09/24/24 06:00 90 8 L 92 L 09/24/24 05:50 89 16 87 L 09/24/24 05:40 78 15 94 L 09/24/24 05:30 82 23 87 L 09/24/24 05:20 85 26 H 93 L 09/24/24 05:10 84 21 85 L 09/24/24 05:00 76 16 91 L 09/24/24 04:50 79 16 92 L 09/24/24 04:40 81 16 93 L 09/24/24 04:30 75 15 91 L 09/24/24 04:24 75 17 87 L 09/24/24 04:00 97.4 F L 152/90 09/24/24 03:50 69 12 96 09/24/24 03:40 72 13 94 L 09/24/24 03:30 82 13 97 09/24/24 03:20 87 18 90 L 09/24/24 03:13 88 17 152/90 92 L 09/24/24 03:10 22 152/90 99 09/24/24 03:00 87 17 99 09/24/24 02:50 70 14 100 09/24/24 02:40 73 16 100 09/24/24 02:30 73 14 100 09/24/24 02:20 72 12 100 09/24/24 02:10 75 14 133/66 100 09/24/24 02:00 74 13 99 09/24/24 01:50 92 22 99 09/24/24 01:40 74 21 99 09/24/24 01:30 73 16 09/24/24 01:20 70 13 09/24/24 01:10 76 12 117/103 09/24/24 01:00 23 09/24/24 00:50 22 09/24/24 00:40 75 17 09/24/24 00:30 92 16 09/24/24 00:20 75 18 09/24/24 00:10 75 15 150/59 09/24/24 00:02 76 18 150/59 09/24/24 00:00 76 14 156/134 09/23/24 23:50 77 16 09/23/24 23:40 76 14 09/23/24 23:30 89 14 96 09/23/24 23:20 76 19 96 09/23/24 23:10 76 14 100 09/23/24 23:00 75 15 100 09/23/24 22:50 77 17 100 09/23/24 22:40 16 100 09/23/24 22:30 77 14 142/60 100 09/23/24 22:22 75 12 100 09/23/24 20:01 98.8 F 81 16 142/61 98 09/23/24 18:05 16 09/23/24 17:44 98.7 F 82 18 136/44 92 L Intake and Output 09/24/24 09/24/24 09/24/24 06:59 14:59 22:59 Intake Total 225 Output Total 2800 Balance -2575 Intake: Intake, IV Titration 225 Amount Sodium Chloride 0.9% 1, 225 000 ml @ 75 mls/hr IV . [id number] ONE Rx#:[id number] Output: Urine 2800 Other: Voiding Method Indwelling Catheter General: Lying in bed and is not in acute distress. Is very frustrated and agitated regarding his care Neuro: Limited. Is awake alert oriented to self place and time. He is following some simple commands. No aphasia from limited language No facial weakness. No dysarthria Motor: Strength is hard to assess individual muscle strength because of his cooperation but was able to lift up upper extremities above gravity. Regarding lower extremity movement he refuses Results - Laboratory Findings CBC and BMP: 09/23/24 18:10 09/23/24 18:10 Abnormal Lab Findings: Abnormal Labs 09/23/24 09/23/24 09/23/24 18:01 18:10 18:10 RBC 3.60 L Hgb 10.1 L Hct 31.2 L VBG pH VBG HCO3 BUN 42 H Creatinine 1.33 H Glucose 115 H POC Glucose (mg/dL) 119 H Magnesium Ur Oxycodone Screen 09/23/24 09/23/24 09/23/24 18:10 18:10 18:33 RBC Hgb Hct VBG pH 7.42 H VBG HCO3 29 H BUN Creatinine Glucose POC Glucose (mg/dL) Magnesium 2.8 H Ur Oxycodone Screen Detected H Assessment and Plan Assessment: This is a 74-year-old gentleman with history of chronic pain, neuropathy, chronic back on oxycodone in the emergency department because of altered mental status. Possibly the patient overdosed on the oxycodone. His pulse ox was 87 during this hospital admission. He is very agitated frustrated about his condition and why the oxycodone was held. Altered mental status seems due to multifactorial of toxic encephalopathy from overdose of oxycodone as well as hypoxic encephalopathy. Examination is limited because of his cooperation but oriented x 3. Chronic pain and is on oxycodone History of neuropathy Chronic low back pain Plan: Repeat CT of the head since the initial 1 there is a lot of limitation motion artifact. Recommend patient to be evaluated by a pain specialist regarding his chronic pain syndrome. He stated that he tried gabapentin, Lyrica and Cymbalta and he did not feel it was effective. Will defer the rest of the medical management to primary and other specialist Recommend the patient to follow-up with neurologist as well as an outpatient within 3 to 4 weeks. The plan discussed with the ICU nurse. Time with Patient: Greater than 30
[2024-09-24] MEDS: LACTULOSE 20 GM/30 ML CUP PO SCH (21:08)
[2024-09-24] MEDS: PREGABALIN 75 MG CAP PO SCH (21:17)
[2024-09-24] MEDS: DOCUSATE 100 MG CAP PO SCH (21:18)
[2024-09-24] MEDS: MONTELUKAST 10 MG TAB PO SCH (21:18)
[2024-09-25 05:36] LABS: Basophils % (A) 0 %; Eosinophils # (A) 0.8 k/uL (0-0.7); Eosinophils % (A) 11 %; HCT 28.2 % (39.0-53.0); HGB 8.8 gm/dL (13.0-17.5); Hypochromasia Slight; Lymphocytes # (A) 1.9 k/uL (1.0-4.8); Lymphocytes % (A) 25 %; MCH 27.8 pg (25.0-35.0); MCHC 31.4 g/dL (31.0-37.0); MCV 88.7 fL (80.0-100.0); Mean Platelet Volume 7.5; Monocytes # (A) 0.6 k/uL (0-1.0); Monocytes % (A) 8 %; Neutrophils % (A) 53 %; Platelet Count 205 k/uL (150-450); RBC 3.18 m/uL (4.30-5.90); RDW 14.6 % (11.5-15.5); WBC 7.6 k/uL (3.8-10.6)
[2024-09-25 05:53] LABS: ALT 12 U/L (4-49); AST 41 U/L (17-59); African American GFR (CKD) >90 (>60 ml/min/1.73 sqM); Albumin 3.2 g/dL (3.5-5.0); Alkaline Phosphatase 63 U/L (38-126); Anion Gap 3 mmol/L; Blood Urea Nitrogen 16 mg/dL (9-20); Calcium 8.9 mg/dL (8.4-10.2); Carbon Dioxide 28 mmol/L (22-30); Chloride 109 mmol/L (98-107); Glucose 91 mg/dL (74-99); Non-African American GFR(CKD) >90 (>60 ml/min/1.73 sqM); Potassium 3.9 mmol/L (3.5-5.1); Sodium 140 mmol/L (137-145); Total Bilirubin 0.6 mg/dL (0.2-1.3); Total Protein 5.9 g/dL (6.3-8.2)
[2024-09-25] MEDS: polyethylene glycoL 3350 17 GM POWD.PACK PO SCH (08:41)
[2024-09-25] MEDS: ATORVASTATIN 40 MG TAB PO SCH (08:47)
[2024-09-25] MEDS: FUROSEMIDE 40 MG TAB PO SCH (08:47)
[2024-09-25] MEDS: POTASSIUM CHLORIDE ER 20 MEQ TAB.ER PO SCH (08:47)
[2024-09-25] MEDS: METOPROLOL SUCCINATE (ER) 50 MG TAB.ER.24H PO SCH (08:47)
[2024-09-25] MEDS: LORATADINE 10 MG TAB PO SCH (08:47)
[2024-09-25] MEDS: ENOXAPARIN 40 MG/0.4 ML SYRINGE SQ SCH (08:47)
--- NOTE | 2024-09-25 13:53 | P.PN ---
Subjective Progress Note Date: 09/25/24 I am following up with the patient and he feels he is doing about the same. He did state that he is having left knee pain but otherwise denied any significant pain like yesterday. Objective - Vital Signs Vital signs: Vital Signs Temp 98.7 F 09/25/24 08:00 Pulse 75 09/25/24 08:00 Resp 12 09/25/24 08:00 BP 132/63 09/25/24 08:00 Pulse Ox 97 09/25/24 08:00 FiO2 Intake & Output 09/24/24 09/25/24 09/25/24 18:59 06:59 18:59 Intake Total 450 Output Total 1100 550 500 Balance -650 -550 -500 Weight 134 kg Intake: Intake, IV Titration 450 Amount Sodium Chloride 0.9% 1, 450 000 ml @ 75 mls/hr IV . [id number] ONE Rx#:[id number] Output: Urine 1100 550 500 Other: Voiding Method Indwelling Catheter Indwelling Catheter Indwelling Catheter - Exam General: Sitting in a recliner chair and is not in acute distress. Neuro: Patient is awake alert oriented to self place and time. Is following simple commands. No facial weakness. No dysarthria Motor the strength he is lifted bilateral upper extremity above gravity and appears symmetrical. In the lower extremity is somewhat limited in the left lower extremity because of pain but otherwise left in bilateral lower above gravity. Some of the workup during this hospital visit consisted of: Pulse ox during this hospital visit of 87 L Urine drug screen is positive for oxycodone. Reviewed the rest of the lab workup CT brain cervical spine is reported as exam is severely limited and essentially nondiagnostic. There is circumstantial hyperattenuation seen along the bilateral subdural space adjacent to the calvarium which may represent artifact from the beam hardening and significant motion versus bilateral subdural hematoma. Short-term follow-up should be repeated as clinically indicated 1 the patient can better tolerate exam. Severe limitation in evaluating the cervical spine secondary due to significant motion artifact. Short-term follow-up should be repeated as clinically indicated 1 the patient can better tolerate exam. Patient reviewed the CT of the head and I personally agree that there is severe motion artifact but I do not appreciate any bleeding or subdural. Repeat CT head: Noted by involuntary patient motion. No acute bleed or mass effect. No significant interval change. I personally reviewed the CT and I agree there is motion artifact and no bleed noted - Labs CBC & Chem 7: 09/25/24 05:19 09/25/24 05:19 Labs: Abnormal Lab Results - Last 24 Hours (Table) 09/25/24 09/25/24 Range/Units 05:19 05:19 RBC 3.18 L (4.30-5.90) m/uL Hgb 8.8 L (13.0-17.5) gm/dL Hct 28.2 L (39.0-53.0) % Eosinophils # 0.8 H (0-0.7) k/uL Chloride 109 H (98-107) mmol/L Total Protein 5.9 L (6.3-8.2) g/dL Albumin 3.2 L (3.5-5.0) g/dL Assessment and Plan Assessment: This is a 74-year-old gentleman with history of chronic pain, neuropathy, chronic back on oxycodone in the emergency department because of altered mental status. Possibly the patient overdosed on the oxycodone. His pulse ox was 87 during this hospital admission. He is very agitated frustrated about his condition and why the oxycodone was held. Altered mental status seems due to multifactorial of toxic encephalopathy from overdose of oxycodone as well as hypoxic encephalopathy--mentation improved Chronic pain and is on oxycodone History of neuropathy Chronic low back pain Plan: Repeat CT of the head is no acute process and no bleed. Recommend patient to be evaluated by a pain specialist regarding his chronic pain syndrome. He stated that he tried gabapentin, Lyrica and Cymbalta and he did not feel it was effective. Will defer the rest of the medical management to primary and other specialist Recommend the patient to follow-up with neurologist as well as an outpatient w ithin 3 to 4 weeks. There is no further neurological workup. Will sign off. Please reconsult if n eeded. Time with Patient: Less than 30
--- NOTE | 2024-09-25 14:47 | P.HPIM ---
History of Present Illness H&P Date: 09/24/24 Chief Complaint: Metabolic encephalopathy. HISTORY OF PRESENT ILLNESS: This is a 74-year-old male one of my patient with a previous medical history significant for hypertension and hypertensive cardiovascular disease, hyperlipidemia, obesity with obstructive sleep apnea, history of chronic alcohol use and dependence with the peripheral neuropathy, significant spondylosis of the lumbar spine with spinal stenosis and significant chronic low back pain, patient was recently hospitalized at [facility] about a month ago for MRSA cellulitis of the left lower extremity along with multiple wounds secondary to him being picking on his skin he ended up getting discharged to [facility] in [facility] and he was just recently discharged from the facility back to his assisted living facility [facility], apparently the patient was brought into the emergency department at [facility] after he was found on the floor with altered level of consciousness, he was seen in the emergency department, by the emergency room physician Dr. Islas, underwent CT scan of the brain did not show evidence of acute abnormalities, he did have a lot of moving artifact, patient did receive Narcan in the emergency department, with minimal response, he ended up getting admitted to the intensive care unit as a stepdown overflow, patient appears to be back to his baseline at this time. REVIEW OF SYSTEMS: Constitutional: No documented fever, no chills, no night sweats. No weight change. positive for weakness , reports fatigue reports lethargy. Positive for daytime sleepiness. HEENT: No headache. No blurred vision or double vision, no loss of vision. No loss of Hearing, no ringing in the ears, no dizziness. No nasal drainage or congestion. No epistaxis. No sore throat. Lungs: No shortness of breath, no cough, no sputum production. No wheezing. Reports dyspnea with activity. Cardiovascular: No chest pain, positive for lower extremity edema. No palpitations. No paroxysmal nocturnal dyspnea. No orthopnea. No lightheadedn ess or dizziness. No syncopal episodes.Positive for nocturia. Abdominal: No abdominal pain. No nausea, vomiting. No diarrhea. No constipation. No bloody or tarry stools . No loss of appetite. Genitourinary: No dysuria, increased frequency, urgency. No urinary retention. Musculoskeletal: positive for neck pain, positive for chronic low back pain, positive for pain in both lower extremities with significant neuropathy, positive for gait dysfunction, positive for lower extremity weakness. Integumentary: venous stasis and stasis dermatitis and venous ulcers Neurologic: No aphasia. No facial droop. Positive for memory loss. No head injury. No headache, positive for paresthesia in both lower extremities, back to baseline. Psychiatric: Patient does appear to be somewhat depressed, appears to be a bit anxious, no suicidal thoughts or ideation. Endocrine: No abnormal blood sugars, increased weight. PAST MEDICAL HISTORY: 1. Hypertension and hypertensive cardiovascular disease. 2. Hyperlipidemia. 3. Hypothyroidism. 4. Chronic venous stasis with stasis dermatitis. 5. Chronic alcohol use and dependence. 6. Obstructive sleep apnea. 7. Peripheral neuropathy. 8. Vascular dementia. 9. Enlarged prostate. 10. 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 11. Restless leg syndrome. PAST SURGICAL HISTORY: 1. Laminectomies in the lumbar spine 3. 2. Tonsillectomy. 3. Hand surgery with tendon repair. SOCIAL HISTORY: Patient denies a history of smoking, he drinks about 3 beers every other day, he used to drink a lot heavier than that, he denies any drug use or abuse, he denies any marijuana use and lives along, he has a daughter who comes a check on him, only on the weekend. FAMILY HISTORY: Father at age 93 from old age. History of hypertension and myocardial infarction, mother at age of 84 from lung cancer and she was heavy smoker, patient has 2 brothers one of them is super morbid obesity and other one is o manuel, patient has 2 sisters one of them is 63-year-old with history of venous stasis, the other one is fine, patient has a daughter with no major medical problems 35-year-old. PHYSICAL EXAMINATION: General: This is a 73-year-old male who is resting in bed and does not appear to be in acute distress. HEENT: Head is atraumatic, normocephalic, pupils were equal round reactive to light and recommendation, extraocular muscle movement were intact, sclera nonicteric, conjunctivae were pale, mucous membranes of the mouth are somewhat dry. Neck: Supple, no JVP, normal carotid upstroke bilaterally, no lymphadenopathy. Chest: Decreased breath sounds at the bases, few rhonchi, no expiratory wheezes, no chest wall tenderness, no intercostal retractions. Heart: First heart sound is normal, second heart sound is normal there is systolic ejection murmur 2/6 located in the left sternal border. Abdomen: Soft, nontender, nondistended, positive bowel sounds. Extremities: There is chronic significant venous stasis of right lower extremity with a chronic skin changes dorsalis pedis +1 bilaterally Neurologic examination: Patient is awake alert and oriented X 3, cranial nerves II-12 appear grossly intact, muscle power were 4 out of 5 in upper extremities and 3out of 5 in bilateral lower extremities, deep tendon reflexes were depressed bilaterally. ASSESSMENT AND PLAN: 1. Altered level of consciousness likely related to metabolic encephalopathy due to pain treatment. Not sure the patient is taking his prescription as recommended, we will hold off oxycodone for now, patient did receive 1 dose of Narcan in the emergency department, we will try to avoid using that since the patient may go to seizure activity as the patient is doing opioid for the long period of time. Patient will be seen in consultation by neurology for further evaluation recommendation, I will follow-up with the patient very closely. 2. Left-sided pleural effusion with chronic diastolic heart failure. Metoprolol 50 mg orally twice every day, continue frusemide 40 mg once every day, monitor the patient's symptoms very closely. 3. Hypertension and hypertensive cardiovascular disease. Continue patient on metoprolol 50 mg orally twice every day, monitor the patient blood pressure very closely. 4. Hyperlipidemia. Continue atorvastatin 40 mg daily. Keep LDL 55-70. 5. Vascular dementia. Appears to be stable at this time. 6. History of chronic alcohol use and dependence. patient has quit 7. 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 Discontinue oxycodone continue patient on pregabalin 150 mg orally twice every day. 8. Bilateral lower extremity neuropathy continue patient on Lyrica 150 mg orally twice every day. 9. Peripheral neuropathy. Continue patient on pregabalin 150 mg orally 2 times every day. 10. DVT prophylaxis. Continue Lovenox 40 mg subcutaneously every 24 hours. 11. GI prophylaxis. Continue Protonix 40 mg orally once every day and famotidine 20 mg orally once every day. 12. Admit to inpatient. Estimate a length of stay 2 midnights. 13. Patient is full code. Past Medical History Past Medical History: Hypertension, Osteoarthritis (OA) Additional Past Medical History / Comment(s): ETOH abuse, chronic back pain, BLE neuropathy, lymphedema, multiple falls, cellulitis History of Any Multi-Drug Resistant Organisms: MRSA Date of last positivie culture/infection: 04/23/24 MDRO Source:: RT LEG Past Surgical History: Back Surgery, Orthopedic Surgery, Tonsillectomy Additional Past Surgical History / Comment(s): 3 back laminectomies, hand surgery s/p trauma to reattatch tendons Past Anesthesia/Blood Transfusion Reactions: No Reported Reaction Past Psychological History: No Psychological Hx Reported Additional Psychological History / Comment(s): Patient has fear that he has onset dementia. Smoking Status: Never smoker, Unknown if ever smoked Past Alcohol Use History: Daily, Heavy Additional Past Alcohol Use History / Comment(s): Patient has been clean of alcohol use for 3 days. Past Drug Use History: None Reported Additional Drug Use History / Comment(s): Patient states that he hasn't drank alcohol in over 2 years. - Past Family History Father Family Medical History: Hypertension Mother Family Medical History: Cancer Additional Family Medical History / Comment(s): Lung cancer Brother(s) Family Medical History: No Reported History Sister(s) Family Medical History: Hypertension Daughter(s) Family Medical History: No Reported History Medications and Allergies Home Medications Medication Instructions Recorded Confirmed Type Furosemide [Lasix] 40 mg PO DAILY 04/24/23 09/23/24 History Atorvastatin [Lipitor] 40 mg PO DAILY tab 01/12/24 09/23/24 Rx Cetirizine HCl 10 mg PO DAILY 05/21/24 09/23/24 History Folic Acid 0.8 mg PO DAILY 05/21/24 09/23/24 History Lactulose [Cephulac] 20 gm PO BID #1800 ml 05/31/24 09/23/24 Rx Metoprolol Succinate (ER) [Toprol 50 mg PO DAILY #90 tab 05/31/24 09/23/24 Rx XL] Montelukast [Singulair] 10 mg PO HS #90 tab 05/31/24 09/23/24 Rx Potassium Chloride ER [K-Dur 20] 20 meq PO DAILY #90 tab 05/31/24 09/23/24 Rx Triamcinolone 0.1% Cream [Kenalog 1 applic TOPICAL BID #60 each 05/31/24 09/23/24 Rx 0.1% Cream] amLODIPine [Norvasc] 10 mg PO DAILY #90 tab 05/31/24 09/23/24 Rx hydrOXYzine HCL [Atarax] 25 mg PO TID PRN #90 tab 06/03/24 09/23/24 Rx polyethylene glycoL 3350 [Miralax] 17 gm PO DAILY #30 packet 06/03/24 09/23/24 Rx Baclofen 10 mg PO BID PRN 08/17/24 09/23/24 History Famotidine [Pepcid] 40 mg PO DAILY 08/17/24 09/23/24 History Losartan Potassium [Cozaar] 100 mg PO DAILY 08/17/24 09/23/24 History Docusate [Colace] 100 mg PO BID cap 08/22/24 09/23/24 Rx Ibuprofen [Motrin] 600 mg PO TID PRN tab 08/22/24 09/23/24 Rx Magnesium Hydroxide [Milk of 2,400 mg PO BID PRN ml 08/22/24 09/23/24 Rx Magnesia] Pregabalin [Lyrica] 150 mg PO BID #6 cap 08/22/24 09/23/24 Rx oxyCODONE-APAP 10-325MG [Percocet 1 tab PO Q4H PRN #18 tab 08/22/24 09/23/24 Rx 10-325 mg] Ipratropium-Albuterol Nebulize 3 ml INHALATION RT-Q6H PRN 09/23/24 09/23/24 History [Duoneb 0.5 mg-3 mg/3 ml Soln] Torsemide [Demadex] 20 mg PO DAILY 09/23/24 09/23/24 History Allergies Allergy/AdvReac Type Severity Reaction Status Date / Time No Known Allergies Allergy Verified 09/23/24 19:51 Physical Exam Vitals: Vital Signs Temp Pulse Resp BP Pulse Ox 09/24/24 08:00 97.3 F L 84 18 106/40 92 L 09/24/24 07:00 86 18 95 09/24/24 06:50 87 39 H 79 L 09/24/24 06:40 89 11 L 96 09/24/24 06:30 85 20 94 L 09/24/24 06:20 92 22 93 L 09/24/24 06:10 87 15 92 L 09/24/24 06:00 90 8 L 92 L 01/14/25 05:50 89 16 87 L 09/24/24 05:40 78 15 94 L 09/24/24 05:30 82 23 87 L 09/24/24 05:20 85 26 H 93 L 09/24/24 05:10 84 21 85 L 09/24/24 05:00 76 16 91 L 09/24/24 04:50 79 16 92 L 09/24/24 04:40 81 16 93 L 09/24/24 04:30 75 15 91 L 09/24/24 04:24 75 17 87 L 09/24/24 04:00 97.4 F L 152/90 09/24/24 03:50 69 12 96 09/24/24 03:40 72 13 94 L 09/24/24 03:30 82 13 97 09/24/24 03:20 87 18 90 L 09/24/24 03:13 88 17 152/90 92 L 09/24/24 03:10 22 152/90 99 09/24/24 03:00 87 17 99 09/24/24 02:50 70 14 100 09/24/24 02:40 73 16 100 09/24/24 02:30 73 14 100 09/24/24 02:20 72 12 100 09/24/24 02:10 75 14 133/66 100 09/24/24 02:00 74 13 99 09/24/24 01:50 92 22 99 09/24/24 01:40 74 21 99 09/24/24 01:30 73 16 09/24/24 01:20 70 13 09/24/24 01:10 76 12 117/103 09/24/24 01:00 23 09/24/24 00:50 22 09/24/24 00:40 75 17 09/24/24 00:30 92 16 09/24/24 00:20 75 18 09/24/24 00:10 75 15 150/59 09/24/24 00:02 76 18 150/59 09/24/24 00:00 76 14 156/134 09/23/24 23:50 77 16 09/23/24 23:40 76 14 09/23/24 23:30 89 14 96 09/23/24 23:20 76 19 96 09/23/24 23:10 76 14 100 09/23/24 23:00 75 15 100 09/23/24 22:50 77 17 100 09/23/24 22:40 16 100 09/23/24 22:30 77 14 142/60 100 09/23/24 22:22 75 12 100 09/23/24 20:01 98.8 F 81 16 142/61 98 09/23/24 18:05 16 09/23/24 17:44 98.7 F 82 18 136/44 92 L Intake and Output 09/23/24 09/24/24 09/24/24 22:59 06:59 14:59 Intake Total 225 Output Total 2800 Balance -2575 Intake: Intake, IV Titration 225 Amount Sodium Chloride 0.9% 1, 225 000 ml @ 75 mls/hr IV . [id number] Rx#:[id number] Output: Urine 2800 Other: Voiding Method Indwelling Catheter Weight 131.9 kg Results CBC & Chem 7: 09/23/24 18:10 09/23/24 18:10 Labs: Abnormal Lab Results - Last 24 Hours (Table) 09/23/24 09/23/24 09/23/24 Range/Units 18:01 18:10 18:10 RBC 3.60 L (4.30-5.90) m/uL Hgb 10.1 L (13.0-17.5) gm/dL Hct 31.2 L (39.0-53.0) % VBG pH (7.31-7.41) VBG HCO3 (24-28) mmol/L BUN 42 H (9-20) mg/dL Creatinine 1.33 H (0.66-1.25) mg/dL Glucose 115 H (74-99) mg/dL POC Glucose (mg/dL) 119 H (70-110) mg/dL Magnesium (1.6-2.3) mg/dL Ur Oxycodone Screen (NotDetected) 09/23/24 09/23/24 09/23/24 Range/Units 18:10 18:10 18:33 RBC (4.30-5.90) m/uL Hgb (13.0-17.5) gm/dL Hct (39.0-53.0) % VBG pH 7.42 H (7.31-7.41) VBG HCO3 29 H (24-28) mmol/L BUN (9-20) mg/dL Creatinine (0.66-1.25) mg/dL Glucose (74-99) mg/dL POC Glucose (mg/dL) (70-110) mg/dL Magnesium 2.8 H (1.6-2.3) mg/dL Ur Oxycodone Screen Detected H (NotDetected)
[2024-09-25] MEDS ORDERED: VANCOMYCIN IV PER PHARMACY 1 EACH MISC MISCELLANE PRN (15:29)
[2024-09-25] MEDS: oxyCODONE-APAP 10-325MG 1 EACH TAB PO SCH (17:08)
[2024-09-25] MEDS: VANCOMYCIN 2,000 MG in SODIUM CHLORIDE 0.9% 500 ML 500 ML IVPB SCH (17:18)
[2024-09-26 03:59] LABS: African American GFR (CKD) >90 (>60 ml/min/1.73 sqM); Non-African American GFR(CKD) 87 (>60 ml/min/1.73 sqM)
--- NOTE | 2024-09-26 09:16 | P.CONS ---
History of Present Illness - Reason for Consult Consult date: 09/25/24 Cellulitis right lower extremity Requesting physician: Suzan Willingham - Chief Complaint Increasing swelling redness of the right leg x days - History of Present Illness Patient is a 74-year-old male with a past medical history significant for hypertension osteoarthritis chronic back pain chronic swelling to bilateral extremity did have venous stasis ulcers and history of cellulitis secondary to MRSA presenting to the hospital 2 days ago after pending the patient was found down on the floor confused more than normal patient was not answering question initially he denied any pain subsequently has been admitted to the ICU for neurowork-up patient also noticed to have increasing swelling redness of right lower extremity vancomycin was added infectious disease was consulted for further management of her by therapy patient currently denies having any fever or any chills no fever have been recorded during this hospital stay patient denies having any headache no chest pain shortness of breath or significant cough no nausea vomiting abdominal pain has been complaining of increasing swelling to the lower extremity specially the right leg which has been his itching and has been scratching it has developed more redness describing pain to be mostly sharp moderate intensity without radiation patient did have a white count of 7.6 creatinine 0.74 electrolyte has been normal urine testing was positive for oxycodone patient did have a chest x-ray mild clinically with suggested left trace of pleural effusion and mild pulmonary edema CT of the brain was no acute bleed or mass effect Review of Systems Positive point and negatives has been mentioned in the HPI, complete review of systems was performed and all other systems are negative Past Medical History Past Medical History: Hypertension, Osteoarthritis (OA) Additional Past Medical History / Comment(s): ETOH abuse, chronic back pain, BLE neuropathy, lymphedema, multiple falls, cellulitis History of Any Multi-Drug Resistant Organisms: MRSA Year Discovered:: 04/23/24 MDRO Source:: RT LEG Past Surgical History: Back Surgery, Orthopedic Surgery, Tonsillectomy Additional Past Surgical History / Comment(s): 3 back laminectomies, hand surgery s/p trauma to reattatch tendons Past Anesthesia/Blood Transfusion Reactions: No Reported Reaction Past Psychological History: No Psychological Hx Reported Additional Psychological History / Comment(s): Patient has fear that he has onset dementia. Smoking Status: Never smoker, Unknown if ever smoked Past Alcohol Use History: Daily, Heavy Additional Past Alcohol Use History / Comment(s): Patient has been clean of alcohol use for 3 days. Past Drug Use History: None Reported Additional Drug Use History / Comment(s): Patient states that he hasn't drank alcohol in over 2 years. - Past Family History Father Family Medical History: Hypertension Mother Family Medical History: Cancer Additional Family Medical History / Comment(s): Lung cancer Brother(s) Family Medical History: No Reported History Sister(s) Family Medical History: Hypertension Daughter(s) Family Medical History: No Reported History Medications and Allergies Home Medications Medication Instructions Recorded Confirmed Type Furosemide [Lasix] 40 mg PO DAILY 04/24/23 09/23/24 History Atorvastatin [Lipitor] 40 mg PO DAILY tab 01/12/24 09/23/24 Rx Cetirizine HCl 10 mg PO DAILY 05/21/24 09/23/24 History Folic Acid 0.8 mg PO DAILY 05/21/24 09/23/24 History Lactulose [Cephulac] 20 gm PO BID #1800 ml 05/31/24 09/23/24 Rx Metoprolol Succinate (ER) [Toprol 50 mg PO DAILY #90 tab 05/31/24 09/23/24 Rx XL] Montelukast [Singulair] 10 mg PO HS #90 tab 05/31/24 09/23/24 Rx Potassium Chloride ER [K-Dur 20] 20 meq PO DAILY #90 tab 05/31/24 09/23/24 Rx Triamcinolone 0.1% Cream [Kenalog 1 applic TOPICAL BID #60 each 05/31/24 09/23/24 Rx 0.1% Cream] amLODIPine [Norvasc] 10 mg PO DAILY #90 tab 05/31/24 09/23/24 Rx hydrOXYzine HCL [Atarax] 25 mg PO TID PRN #90 tab 06/03/24 09/23/24 Rx polyethylene glycoL 3350 [Miralax] 17 gm PO DAILY #30 packet 06/03/24 09/23/24 Rx Baclofen 10 mg PO BID PRN 08/17/24 09/23/24 History Famotidine [Pepcid] 40 mg PO DAILY 08/17/24 09/23/24 History Losartan Potassium [Cozaar] 100 mg PO DAILY 08/17/24 09/23/24 History Docusate [Colace] 100 mg PO BID cap 08/22/24 09/23/24 Rx Ibuprofen [Motrin] 600 mg PO TID PRN tab 08/22/24 09/23/24 Rx Magnesium Hydroxide [Milk of 2,400 mg PO BID PRN ml 08/22/24 09/23/24 Rx Magnesia] Pregabalin [Lyrica] 150 mg PO BID #6 cap 08/22/24 09/23/24 Rx oxyCODONE-APAP 10-325MG [Percocet 1 tab PO Q4H PRN #18 tab 08/22/24 09/23/24 Rx 10-325 mg] Ipratropium-Albuterol Nebulize 3 ml INHALATION RT-Q6H PRN 09/23/24 09/23/24 History [Duoneb 0.5 mg-3 mg/3 ml Soln] Torsemide [Demadex] 20 mg PO DAILY 09/23/24 09/23/24 History Allergies Allergy/AdvReac Type Severity Reaction Status Date / Time No Known Allergies Allergy Verified 09/23/24 19:51 Physical Exam Vitals: Vital Signs Temp Pulse Pulse Pulse Resp BP Pulse Ox 09/25/24 12:00 97.8 F 74 12 138/62 97 09/25/24 08:00 98.7 F 75 12 132/63 97 09/25/24 04:00 97.4 F L 64 12 126/52 95 09/25/24 00:00 97.8 F 75 18 136/54 98 09/24/24 20:00 97.4 F L 80 21 125/51 98 09/24/24 18:00 73 09/24/24 17:00 74 09/24/24 16:22 96 Intake and Output 09/25/24 09/25/24 09/25/24 06:59 14:59 22:59 Output Total 550 500 Balance -550 -500 Output: Urine 550 500 Other: Voiding Method Indwelling Catheter Indwelling Catheter Weight 134 kg GENERAL DESCRIPTION: Elderly male up in the chair, no distress. No tachypnea or accessory muscle of respiration use. HEENT: Shows Pallor , no scleral icterus. Oral mucous membrane is dry. NECK: Trachea central, no thyromegaly. LUNGS: Unlabored breathing. Decreased breath sound at the base HEART: S1, S2, regular rate and rhythm. No loud murmur ABDOMEN: Soft, no tenderness , guarding or rigidity, no organomegaly EXTREMITIES: Diffuse swelling to bilateral extremity especially the right leg which is swollen warm to touch did have redness and some scratch boucher SKIN: No rash, no masses palpable. NEUROLOGICAL: The patient is awake, alert, oriented x3, mood and affect normal. Results CBC & Chem 7: 09/25/24 05:19 09/26/24 03:12 Labs: Abnormal Lab Results - Last 24 Hours (Table) 09/25/24 09/25/24 Range/Units 05:19 05:19 RBC 3.18 L (4.30-5.90) m/uL Hgb 8.8 L (13.0-17.5) gm/dL Hct 28.2 L (39.0-53.0) % Eosinophils # 0.8 H (0-0.7) k/uL Chloride 109 H (98-107) mmol/L Total Protein 5.9 L (6.3-8.2) g/dL Albumin 3.2 L (3.5-5.0) g/dL Assessment and Plan (1) Cellulitis of right leg Current Visit: No Status: Acute Code(s): L03.115 - CELLULITIS OF RIGHT LOWER LIMB SNOMED Code(s): 98337354669331122 (2) Venous ulcer of right leg Current Visit: Yes Status: Acute Code(s): I83.019 - VARICOSE VEINS OF RIGHT LOWER EXTREMITY W ULCER OF UNSP SITE; L97.919 - NON-PRS CHRONIC ULC UNSP PRT OF R LOW LEG W UNSP SEVERITY SNOMED Code(s): 4687778896 Plan: 1patient presented hospital after he was found on the floor mental status changes also noted to have increasing swelling and redness to the right lower extremity which is warm to touch did have some superficial ulceration concerning for cellulitis in this patient who did have a previous history of MRSA infection 2vancomycin pharmacy to dose target trough of 15 while watching kidney function and Vanco trough closely 3we will apply dry Aquacel silver dressing to the open area followed by Orcky wrap from just above the toe to below the knee change q. 48-hour We will follow on clinical condition and cultures to further adjust medication if needed Thank you for this consultation we will follow the patient along with you Dictation was produced using dragon dictation software. please excuse any grammatical, word or spelling errors. Time with Patient: Greater than 30
--- NOTE | 2024-09-26 10:44 | P.PN ---
Subjective Progress Note Date: 09/25/24 HISTORY OF PRESENT ILLNESS: This is a 74-year-old male one of my patient with a previous medical history significant for hypertension and hypertensive cardiovascular disease, hyperlipidemia, obesity with obstructive sleep apnea, history of chronic alcohol use and dependence with the peripheral neuropathy, significant spondylosis of the lumbar spine with spinal stenosis and significant chronic low back pain, patient was recently hospitalized at [facility] about a month ago for MRSA cellulitis of the left lower extremity along with multiple wounds secondary to him being picking on his skin he ended up getting discharged to [facility] in [facility] and he was just recently discharged from the facility back to his assisted living facility [facility], apparently the patient was brought into the emergency department at [facility] after he was found on the floor with altered level of consciousness, he was seen in the emergency department, by the emergency room physician Dr. Islas, underwent CT scan of the brain did not show evidence of acute abnormalities, he did have a lot of moving artifact, patient did receive Narcan in the emergency department, with minimal response, he ended up getting admitted to the intensive care unit as a stepdown overflow, patient appears to be back to his baseline at this time. 09/25: Patient is having increased redness to the right lower extremity with increased weeping from the venous ulcer mostly of the right lower extremity more than the left lower extremity, in view of this and because of the prior history of MRSA I will start the patient on vancomycin along with Aquacel silver with Kerlix wrap for both lower extremities and keep the leg elevated at this time, infectious ease consultation will be obtained as well, patient is asking to schedule his pain medication as he is not tremendous amount of pain at this point in time, we will schedule his Percocet to every 4 hours [id number], monitor the patient for sedation, and hold for sedation as well. Patient will be seen in consultation by physical therapy as well as by aids social worker for discharge planning. REVIEW OF SYSTEMS: Constitutional: No documented fever, no chills, no night sweats. No weight change. positive for weakness , reports fatigue reports lethargy. Positive for daytime sleepiness. HEENT: No headache. No blurred vision or double vision, no loss of vision. No loss of Hearing, no ringing in the ears, no dizziness. No nasal drainage or congestion. No epistaxis. No sore throat. Lungs: No shortness of breath, no cough, no sputum production. No wheezing. Reports dyspnea with activity. Cardiovascular: No chest pain, positive for lower extremity edema. No palpitations. No paroxysmal nocturnal dyspnea. No orthopnea. No lightheadedness or dizziness. No syncopal episodes.Positive for nocturia. Abdominal: No abdominal pain. No nausea, vomiting. No diarrhea. No constipation. No bloody or tarry stools . No loss of appetite. Genitourinary: No dysuria, increased frequency, urgency. No urinary retention. Musculoskeletal: positive for neck pain, positive for chronic low back pain, positive for pain in both lower extremities with significant neuropathy, positive for gait dysfunction, positive for lower extremity weakness. Integumentary: venous stasis and stasis dermatitis and venous ulcers and increased erythema to the right lower extremity suggestive of cellulitis. Neurologic: No aphasia. No facial droop. Positive for memory loss. No head injury. No headache, positive for paresthesia in both lower extremities, back to baseline. Psychiatric: Patient does appear to be somewhat depressed, appears to be a bit anxious, no suicidal thoughts or ideation. Endocrine: No abnormal blood sugars, increased weight. PHYSICAL EXAMINATION: General: This is a 73-year-old male who is resting in bed and does not appear to be in acute distress. HEENT: Head is atraumatic, normocephalic, pupils were equal round reactive to light and recommendation, extraocular muscle movement were intact, sclera nonicteric, conjunctivae were pale, mucous membranes of the mouth are somewhat dry. Neck: Supple, no JVP, normal carotid upstroke bilaterally, no lymphadenopathy. Chest: Decreased breath sounds at the bases, few rhonchi, no expiratory wheezes, no chest wall tenderness, no intercostal retractions. Heart: First heart sound is normal, second heart sound is normal there is systolic ejection murmur 2/6 located in the left sternal border. Abdomen: Soft, nontender, nondistended, positive bowel sounds. Extremities: There is chronic significant venous stasis of right lower extremity with a chronic skin changes dorsalis pedis +1 bilaterally, there is redness to the right lower extremity suggestive of cellulitis with weeping venous ulcer mostly in the right lower extremity more in the left lower extremity Neurologic examination: Patient is awake alert and oriented X 3, cranial nerves II-12 appear grossly intact, muscle power were 4 out of 5 in upper extremities and 3out of 5 in bilateral lower extremities, deep tendon reflexes were depressed bilaterally. ASSESSMENT AND PLAN: 1. Altered level of consciousness likely related to metabolic encephalopathy due to pain treatment. patient is back to baseline at this time continue current treatment plan, monitor the patient very closely, neurology consultation appreciated. 2. Right lower extremity cellulitis with venous ulcerations bilaterally associated with SIRS.. Started the patient on vancomycin since the patient had a history of MRSA in the past, Aquacel silver to both lower extremities wrapped with Kerlix wrap keep the leg elevated, decrease IV fluid to KVO. Infectious disease consultation from Dr. Medina 3. Left-sided pleural effusion with chronic diastolic heart failure. Metoprolol 50 mg orally twice every day, continue frusemide 40 mg once every day, monitor the patient's symptoms very closely. 4. Hypertension and hypertensive cardiovascular disease. Continue patient on metoprolol 50 mg orally twice every day, monitor the patient blood pressure very closely. 5. Hyperlipidemia. Continue atorvastatin 40 mg daily. Keep LDL 55-70. 6. Vascular dementia. Appears to be stable at this time. 7. History of chronic alcohol use and dependence. patient has quit 8. 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 Discontinue oxycodone continue patient on pregabalin 150 mg orally twice every day. 9. Bilateral lower extremity neuropathy continue patient on Lyrica 150 mg orally twice every day. 10. Peripheral neuropathy. Continue patient on pregabalin 150 mg orally 2 times every day. 11. DVT prophylaxis. Continue Lovenox 40 mg subcutaneously every 24 hours. 12. GI prophylaxis. Continue Protonix 40 mg orally once every day and famotidine 20 mg orally once every day. 13. Physical therapy evaluation for generalized weakness and bilateral lower extremity weakness. 14. used building materials yard worker consultation for discharge planning. Objective - Vital Signs Vital signs: Vital Signs Temp 97.8 F 09/25/24 12:00 Pulse 74 09/25/24 12:00 Resp 12 09/25/24 12:00 BP 138/62 09/25/24 12:00 Pulse Ox 97 09/25/24 12:00 FiO2 Intake & Output 09/24/24 09/25/24 09/25/24 18:59 06:59 18:59 Intake Total 450 Output Total 1100 550 500 Balance -650 -550 -500 Weight 134 kg Intake: Intake, IV Titration 450 Amount Sodium Chloride 0.9% 1, 450 000 ml @ 75 mls/hr IV . [id number] ONE Rx#:[id number] Output: Urine 1100 550 500 Other: Voiding Method Indwelling Catheter Indwelling Catheter Indwelling Catheter - Labs CBC & Chem 7: 09/25/24 05:19 09/26/24 03:12 Labs: Abnormal Lab Results - Last 24 Hours (Table) 09/25/24 09/25/24 Range/Units 05:19 05:19 RBC 3.18 L (4.30-5.90) m/uL Hgb 8.8 L (13.0-17.5) gm/dL Hct 28.2 L (39.0-53.0) % Eosinophils # 0.8 H (0-0.7) k/uL Chloride 109 H (98-107) mmol/L Total Protein 5.9 L (6.3-8.2) g/dL Albumin 3.2 L (3.5-5.0) g/dL
--- NOTE | 2024-09-26 10:45 | P.PN ---
Subjective Progress Note Date: 09/26/24 HISTORY OF PRESENT ILLNESS: This is a 74-year-old male one of my patient with a previous medical history significant for hypertension and hypertensive cardiovascular disease, hyperlipidemia, obesity with obstructive sleep apnea, history of chronic alcohol use and dependence with the peripheral neuropathy, significant spondylosis of the lumbar spine with spinal stenosis and significant chronic low back pain, patient was recently hospitalized at [facility] about a month ago for MRSA cellulitis of the left lower extremity along with multiple wounds secondary to him being picking on his skin he ended up getting discharged to [facility] in [facility] and he was just recently discharged from the facility back to his assisted living facility [facility], apparently the patient was brought into the emergency department at [facility] after he was found on the floor with altered level of consciousness, he was seen in the emergency department, by the emergency room physician Dr. Islas, underwent CT scan of the brain did not show evidence of acute abnormalities, he did have a lot of moving artifact, patient did receive Narcan in the emergency department, with minimal response, he ended up getting admitted to the intensive care unit as a stepdown overflow, patient appears to be back to his baseline at this time. 09/25: Patient is having increased redness to the right lower extremity with increased weeping from the venous ulcer mostly of the right lower extremity more than the left lower extremity, in view of this and because of the prior history of MRSA I will start the patient on vancomycin along with Aquacel silver with Kerlix wrap for both lower extremities and keep the leg elevated at this time, infectious ease consultation will be obtained as well, patient is asking to schedule his pain medication as he is not tremendous amount of pain at this point in time, we will schedule his Percocet to every 4 hours [id number], monitor the patient for sedation, and hold for sedation as well. Patient will be seen in consultation by physical therapy as well as by neonatal social worker for discharge planning. 09/26: Patient is laying down in bed in no apparent distress at this time, he continued to have significant mount of pain in the left knee, he denies any chest pain at this time, shortness of breath, he did have a bowel movement today he denies any abdominal pain, nausea vomiting or diarrhea he has no dysphagia at this time, he was seen yesterday by infectious disease, who recommended for the patient to continue vancomycin for now along with local care for the right lower extremity and the left lower extremity with Rocky wrap keep the leg elevated, patient will be seen in consultation by physical therapy for discharge planning as well as neonatal social worker. Continue current treatment as ordered. REVIEW OF SYSTEMS: Constitutional: No documented fever, no chills, no night sweats. No weight change. positive for weakness , reports fatigue reports lethargy. Positive for daytime sleepiness. HEENT: No headache. No blurred vision or double vision, no loss of vision. No loss of Hearing, no ringing in the ears, no dizziness. No nasal drainage or congestion. No epistaxis. No sore throat. Lungs: No shortness of breath, no cough, no sputum production. No wheezing. Reports dyspnea with activity. Cardiovascular: No chest pain, positive for lower extremity edema. No palpitations. No paroxysmal nocturnal dyspnea. No orthopnea. No lightheadedness or dizziness. No syncopal episodes.Positive for nocturia. Abdominal: No abdominal pain. No nausea, vomiting. No diarrhea. No constipation. No bloody or tarry stools . No loss of appetite. Genitourinary: No dysuria, increased frequency, urgency. No urinary retention. Musculoskeletal: positive for neck pain, positive for chronic low back pain, positive for pain in both lower extremities with significant neuropathy, positive for gait dysfunction, positive for lower extremity weakness. Integumentary: venous stasis and stasis dermatitis and venous ulcers and increased erythema to the right lower extremity suggestive of cellulitis. Neurologic: No aphasia. No facial droop. Positive for memory loss. No head injury. No headache, positive for paresthesia in both lower extremities, back to baseline. Psychiatric: Patient does appear to be somewhat depressed, appears to be a bit anxious, no suicidal thoughts or ideation. Endocrine: No abnormal blood sugars, increased weight. PHYSICAL EXAMINATION: General: This is a 73-year-old male who is resting in bed and does not appear to be in acute distress. HEENT: Head is atraumatic, normocephalic, pupils were equal round reactive to light and recommendation, extraocular muscle movement were intact, sclera nonicteric, conjunctivae were pale, mucous membranes of the mouth are somewhat dry. Neck: Supple, no JVP, normal carotid upstroke bilaterally, no lymphadenopathy. Chest: Decreased breath sounds at the bases, few rhonchi, no expiratory wheezes, no chest wall tenderness, no intercostal retractions. Heart: First heart sound is normal, second heart sound is normal there is systolic ejection murmur 2/6 located in the left sternal border. Abdomen: Soft, nontender, nondistended, positive bowel sounds. Extremities: There is chronic significant venous stasis of right lower extremity with a chronic skin changes dorsalis pedis +1 bilaterally, there is redness to the right lower extremity suggestive of cellulitis with weeping venous ulcer mostly in the right lower extremity more in the left lower extremity Neurologic examination: Patient is awake alert and oriented X 3, cranial nerves II-12 appear grossly intact, muscle power were 4 out of 5 in upper extremities and 3out of 5 in bilateral lower extremities, deep tendon reflexes were depressed bilaterally. ASSESSMENT AND PLAN: 1. Altered level of consciousness likely related to metabolic encephalopathy due to pain treatment. patient is back to baseline at this time continue current treatment plan, monitor the patient very closely, neurology consultation appreciated. 2. Right lower extremity cellulitis with venous ulcerations bilaterally associated with SIRS.. Continue the patient on vancomycin since the patient had a history of MRSA in the past, Aquacel silver to both lower extremities wrapped with Kerlix wrap keep the leg elevated, decrease IV fluid to KVO. Infectious disease consultation from Dr. Medina 3. Left-sided pleural effusion with chronic diastolic heart failure. Metoprolol 50 mg orally twice every day, continue frusemide 40 mg once every day, monitor the patient's symptoms very closely. 4. Hypertension and hypertensive cardiovascular disease. Continue patient on metoprolol 50 mg orally twice every day, monitor the patient blood pressure very closely. 5. Hyperlipidemia. Continue atorvastatin 40 mg daily. Keep LDL 55-70. 6. Vascular dementia. Appears to be stable at this time. 7. History of chronic alcohol use and dependence. patient has quit 8. 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 Discontinue oxycodone continue patient on pregabalin 150 mg orally twice every day. 9. Bilateral lower extremity neuropathy continue patient on Lyrica 150 mg orally twice every day. 10. Peripheral neuropathy. Continue patient on pregabalin 150 mg orally 2 times every day. 11. DVT prophylaxis. Continue Lovenox 40 mg subcutaneously every 24 hours. 12. GI prophylaxis. Continue Protonix 40 mg orally once every day and famotidine 20 mg orally once every day. 13. Physical therapy evaluation for generalized weakness and bilateral lower extremity weakness. 14. insulation worker furnace installer consultation for discharge planning. Objective - Vital Signs Vital signs: Vital Signs Temp 97.3 F L 09/26/24 08:00 Pulse 74 09/26/24 08:00 Resp 12 09/26/24 08:00 BP 115/58 09/26/24 08:00 Pulse Ox 96 09/26/24 08:00 FiO2 Intake & Output 09/25/24 09/26/24 09/26/24 18:59 06:59 18:59 Output Total 1450 300 Balance -1450 -300 Weight 130.8 kg Output: Urine 1450 300 Other: Voiding Method Indwelling Catheter # Voids 5 1 # Bowel Movements 1 - Labs CBC & Chem 7: 09/25/24 05:19 09/26/24 03:12
--- NOTE | 2024-09-26 14:15 | P.CN ---
Psychiatric Consult - . Consult date: 09/26/24 Consult:: 09/26/24 13:55 IDENTIFYING DATA: This patient is a 74 year old male, living independently, retired REASON FOR REFERRAL: Psychiatry was consulted for AMS, family suspects intentional overdose HISTORY OF PRESENT ILLNESS: The patient presented to the hospital on 09/23 via EMS for AMS. Patient at that time was A&O x 2 and received Narcan and Ativan. CT head was limited due to artifact. Patient is prescribed Percocet as needed for chronic back pain and neuropathy. He was admitted to the ICU for monitoring and ended up being started on antibiotics given lower extremity erythema. Patient seen and examined in his room and was agreeable to speak to policy writer sales. He states pain level at baseline is an 8/10 and that with the Percocet this decreases to a 6 out of 10. He states because of this he sometimes takes 2 Percocets which brings his pain level down to a 4 however he states being distracted ended up taking more too close together. Patient does have a history of vascular dementia he reports being confused intermittently. Patient is adamant that this was not a suicide attempt and he states although he experiences high pain levels, he does not suffer from depression and is otherwise a jovial individual. He denied any past psych history. At this time patient denies any suicidal or homicidal ideations, intent or plan. Patient denies any auditory, visual hallucinations and denies any paranoia or delusions. Patients admits to using no substances but does have a history of alcohol use disorder. Spoke to daughter who states she does not feel like this was an intentional overdose and states she feels like he has been struggling with adjusting to old age and has been more depressed after the divorce from his . She requests resources for therapy even though she feels as though patient is resistant to this. PAST PSYCHIATRIC HISTORY: Patient denies any past psych history. Patient has trialed Cymbalta previously for pain. Patient denies any previous psychiatric hospitalizations. Patient denies any psychiatric outpatient follow-up. Patient denies any history of suicide attempts in the past. PAST MEDICAL HISTORY: Hypertension, Osteoarthritis (OA), neuropathy. ALLERGIES: as per EMR. CHEMICAL DEPENDENCY HISTORY: as per HPI. FAMILY PSYCHIATRIC/SUBSTANCE USE HISTORY: Denies SOCIAL HISTORY: Patient has 1 daughter and lives independently. He is retired. MENTAL STATUS EXAM: General Appearance: Patient appears to be stated age is alert, pleasant, and cooperative. Patient appears to have fair hygiene and grooming wearing hospital gown with fair eye contact. Behavior: Patient is calmly lying in bed without any agitated behavior. Speech: Patient's speech is fluent and nonpressured. Mood/Affect: Patient reports their mood is "okay", affect is congruent, reactive Suicidality/Homicidality: Patient denies having any suicidal or homicidal ideation intent or plan. Perceptions: Patient denies any visual hallucinations and denies any auditory hallucinations Though content/process: There is no evidence of any delusional thought content and thought process is linear and goal-directed. Memory and concentration: AOX3, grossly intact for the purposes of this session. Can spell "WORLD" backwards Judgment and insight: Mildly improving IMPRESSIONS: History of dementia Alcohol use disorder, in remission PLAN: -At this time patient DOES NOT meet criteria for inpatient psychiatric admission. -Would recommend the following medication changes/additions: Patient not agreeable with medications at this time. Discussed with daughter who states therapy is more appropriate for patient as they both corroborated they did not feel as though this was an intentional OD -field ironworker to provide patient with outpatient mental health/psychiatry resources for appropriate follow up upon discharge -Communicated plan to patient's nurse -Psychiatry will sign off at this time -Please contact with any questions.
[2024-09-26] MEDS ORDERED: ZINC OXIDE PASTE (Z-GUARD) 1 APPLIC TOPICAL PRN (22:34)
[2024-09-27 04:07] LABS: Basophils % (A) 1 %; Eosinophils # (A) 0.7 k/uL (0-0.7); Eosinophils % (A) 12 %; HCT 30.5 % (39.0-53.0); HGB 9.5 gm/dL (13.0-17.5); Hypochromasia Marked; Lymphocytes # (A) 1.1 k/uL (1.0-4.8); Lymphocytes % (A) 19 %; MCH 28.1 pg (25.0-35.0); MCHC 31.2 g/dL (31.0-37.0); Mean Platelet Volume 7.3; Monocytes # (A) 0.5 k/uL (0-1.0); Monocytes % (A) 9 %; Neutrophils # (A) 3.4 k/uL (1.3-7.7); Neutrophils % (A) 57 %; Platelet Count 202 k/uL (150-450); RBC 3.39 m/uL (4.30-5.90); RDW 14.6 % (11.5-15.5); WBC 5.9 k/uL (3.8-10.6)
[2024-09-27 04:10] LABS: ALT 13 U/L (4-49); AST 30 U/L (17-59); African American GFR (CKD) >90 (>60 ml/min/1.73 sqM); Albumin 3.3 g/dL (3.5-5.0); Alkaline Phosphatase 57 U/L (38-126); Anion Gap 7 mmol/L; Blood Urea Nitrogen 12 mg/dL (9-20); Calcium 8.4 mg/dL (8.4-10.2); Carbon Dioxide 26 mmol/L (22-30); Chloride 103 mmol/L (98-107); Glucose 140 mg/dL (74-99); Non-African American GFR(CKD) 88 (>60 ml/min/1.73 sqM); Potassium 3.8 mmol/L (3.5-5.1); Sodium 136 mmol/L (137-145); Total Bilirubin 0.3 mg/dL (0.2-1.3); Total Protein 6.2 g/dL (6.3-8.2)
--- NOTE | 2024-09-27 12:58 | P.PN ---
Subjective Progress Note Date: 09/26/24 Principal diagnosis: Reason for follow-up with right lower extremity cellulitis and ulcer Patient is a 74-year-old male with a past medical history significant for hypertension osteoarthritis chronic back pain chronic swelling to bilateral extremity did have venous stasis ulcers and history of cellulitis secondary to MRSA brought to the hospital of the patient was found to be on the floor noticed to have increasing redness to the right leg concerning for cellulitis prompting this consultation. On today's evaluation that is 09/26/2024,the patient remains to be afebrile, patient is on room air not requiring supplemental oxygen and denies any shortness of breath no chest pain or significant cough.Patient denies having any nausea or vomiting, no abdominal pain and no diarrhea has been reported pain to the lower extremities currently controlled. Patient did have creatinine 0.86 no CBC was done today Objective - Vital Signs Vital signs: Vital Signs Temp 97.3 F L 09/26/24 08:00 Pulse 74 09/26/24 08:00 Resp 12 09/26/24 08:00 BP 115/58 09/26/24 08:00 Pulse Ox 96 09/26/24 08:00 FiO2 Intake & Output 09/25/24 09/26/24 09/26/24 18:59 06:59 18:59 Intake Total 1250 Output Total 2035 143 9017 Balance -1450 -300 -25 Weight 130.8 kg Intake: IV 500 Vancomycin 2,000 mg In 500 Sodium Chloride 0.9% 500 ml 500 ml @ 167 mls/hr IVPB Q16H [facility] Rx#: [id number] Oral 750 Output: Urine 4438 344 1609 Other: Voiding Method Indwelling Catheter # Voids 5 1 4 # Bowel Movements 1 - Exam GENERAL DESCRIPTION: An elderly male up in the chair In no distress RESPIRATORY SYSTEM: Unlabored breathing , decreased breath sounds at bases HEART: S1 S2 regular rate and rhythm , ABDOMEN: Soft , no tenderness EXTREMITIES: Bilateral extremity currently wrapped in Rocky wrap no drainage - Labs CBC & Chem 7: 09/27/24 03:40 09/27/24 03:40 Assessment and Plan (1) Cellulitis of right leg Current Visit: No Status: Acute Code(s): L03.115 - CELLULITIS OF RIGHT LOWER LIMB SNOMED Code(s): 84067360207824155 (2) Venous ulcer of right leg Current Visit: Yes Status: Acute Code(s): I83.019 - VARICOSE VEINS OF RIGHT LOWER EXTREMITY W ULCER OF UNSP SITE; L97.919 - NON-PRS CHRONIC ULC UNSP PRT OF R LOW LEG W UNSP SEVERITY SNOMED Code(s): 6703331622 Plan: 1patient presented hospital after he was found on the floor mental status changes also noted to have increasing swelling and redness to the right lower extremity which is warm to touch did have some superficial ulceration concerning for cellulitis in this patient who did have a previous history of MRSA infection 2patient to continue with vancomycin pharmacy to dose target trough of 15 along with dry Aquacel silver dressing to the open area followed by Rocky wrap from just above the toe to below the knee change q. 48-hour, will reevaluate legs tomorrow the time for dressing changes Dictation was produced using [email or web address] dictation software. please excuse any grammatical, word or spelling errors. Time with Patient: Less than 30
--- NOTE | 2024-09-27 12:59 | P.PN ---
Subjective Progress Note Date: 09/27/24 Principal diagnosis: Reason for follow-up with right lower extremity cellulitis and ulcer Patient is a 74-year-old male with a past medical history significant for hypertension osteoarthritis chronic back pain chronic swelling to bilateral extremity did have venous stasis ulcers and history of cellulitis secondary to MRSA brought to the hospital of the patient was found to be on the floor noticed to have increasing redness to the right leg concerning for cellulitis prompting this consultation. On today's evaluation that is 09/27/2024, the patient continues to be afebrile, the patient is on room air and breathing comfortably, the Pt denies having any chest pain or cough, the patient denies having any abdominal pain no vomiting or any diarrhea has been reported by the nursing staff, pain to the lower extremity has decreased in intensity. Patient white count is 5.9, creatinine 0.82 Objective - Vital Signs Vital signs: Vital Signs Temp 97.6 F 09/27/24 07:45 Pulse 75 09/27/24 03:50 Resp 18 09/27/24 07:45 BP 129/66 09/27/24 07:45 Pulse Ox 96 09/27/24 07:45 FiO2 Intake & Output 09/26/24 09/27/24 09/27/24 18:59 06:59 18:59 Intake Total 1250 1580 Output Total 1275 0 -25 1580 Weight 131 kg Intake: IV 500 500 Vancomycin 2,000 mg In 500 500 Sodium Chloride 0.9% 500 ml 500 ml @ 167 mls/hr IVPB Q16H [facility] Rx#: [id number] Oral 750 1080 Output: Urine 1275 0 Other: Voiding Method Indwelling Catheter Urinal # Voids 4 - Exam GENERAL DESCRIPTION: An elderly male up in the chair In no distress RESPIRATORY SYSTEM: Unlabored breathing , decreased breath sounds at bases HEART: S1 S2 regular rate and rhythm , ABDOMEN: Soft , no tenderness EXTREMITIES: Bilateral lower extremity swelling has decreased right leg redness has decreased - Labs CBC & Chem 7: 09/27/24 03:40 09/27/24 03:40 Labs: Abnormal Lab Results - Last 24 Hours (Table) 09/27/24 09/27/24 Range/Units 03:40 03:40 RBC 3.39 L (4.30-5.90) m/uL Hgb 9.5 L (13.0-17.5) gm/dL Hct 30.5 L (39.0-53.0) % Sodium 136 L (137-145) mmol/L Glucose 140 H (74-99) mg/dL Total Protein 6.2 L (6.3-8.2) g/dL Albumin 3.3 L (3.5-5.0) g/dL Assessment and Plan (1) Cellulitis of right leg Current Visit: No Status: Acute Code(s): L03.115 - CELLULITIS OF RIGHT LOWER LIMB SNOMED Code(s): 55279970335581375 (2) Venous ulcer of right leg Current Visit: Yes Status: Acute Code(s): I83.019 - VARICOSE VEINS OF RIGHT LOWER EXTREMITY W ULCER OF UNSP SITE; L97.919 - NON-PRS CHRONIC ULC UNSP PRT OF R LOW LEG W UNSP SEVERITY SNOMED Code(s): 2454961488 Plan: 1patient presented hospital after he was found on the floor mental status changes also noted to have increasing swelling and redness to the right lower extremity which is warm to touch did have some superficial ulceration concerning for cellulitis in this patient who did have a previous history of MRSA infection 2patient did have improvement to the lower extremity redness continue with vancomycin pharmacy to dose watching his kidney function closely and local wound care with the Aquacel dressing and Rocky wrap discussed with the nursing staff Dictation was produced using [employer] dictation software. please excuse any grammatical, word or spelling errors.
--- NOTE | 2024-09-27 19:06 | P.PN ---
Subjective Progress Note Date: 09/27/24 HISTORY OF PRESENT ILLNESS: This is a 74-year-old male one of my patient with a previous medical history significant for hypertension and hypertensive cardiovascular disease, hyperlipidemia, obesity with obstructive sleep apnea, history of chronic alcohol use and dependence with the peripheral neuropathy, significant spondylosis of the lumbar spine with spinal stenosis and significant chronic low back pain, patient was recently hospitalized at [facility] about a month ago for MRSA cellulitis of the left lower extremity along with multiple wounds secondary to him being picking on his skin he ended up getting discharged to [facility] in [facility] and he was just recently discharged from the facility back to his assisted living facility [facility], apparently the patient was brought into the emergency department at [facility] after he was found on the floor with altered level of consciousness, he was seen in the emergency department, by the emergency room physician Dr. Islas, underwent CT scan of the brain did not show evidence of acute abnormalities, he did have a lot of moving artifact, patient did receive Narcan in the emergency department, with minimal response, he ended up getting admitted to the intensive care unit as a stepdown overflow, patient appears to be back to his baseline at this time. 09/25: Patient is having increased redness to the right lower extremity with increased weeping from the venous ulcer mostly of the right lower extremity more than the left lower extremity, in view of this and because of the prior history of MRSA I will start the patient on vancomycin along with Aquacel silver with Kerlix wrap for both lower extremities and keep the leg elevated at this time, infectious ease consultation will be obtained as well, patient is asking to schedule his pain medication as he is not tremendous amount of pain at this point in time, we will schedule his Percocet to every 4 hours [id number], monitor the patient for sedation, and hold for sedation as well. Patient will be seen in consultation by physical therapy as well as by social service assistant for discharge planning. 09/26: Patient is laying down in bed in no apparent distress at this time, he continued to have significant mount of pain in the left knee, he denies any chest pain at this time, shortness of breath, he did have a bowel movement today he denies any abdominal pain, nausea vomiting or diarrhea he has no dysphagia at this time, he was seen yesterday by infectious disease, who recommended for the patient to continue vancomycin for now along with local care for the right lower extremity and the left lower extremity with Rocky wrap keep the leg elevated, patient will be seen in consultation by physical therapy for discharge planning as well as social service assistant. Continue current treatment as ordered. 09/27: Patient is laying down in bed in no apparent distress, he denies any chest pain, shortness of breath, he has no abdominal pain, nausea vomiting or diarrhea, he has significant improvement of the right lower extremity celluliti s, he continues to have venous ulceration that has been treated with Aquacel silver, with Rocky wrap and leg elevation, patient was seen and evaluated by physical therapy as well as social service assistant, we will plan to send the patient to subacute rehabilitation at the patient will need some help at this point in time. REVIEW OF SYSTEMS: Constitutional: No documented fever, no chills, no night sweats. No weight change. positive for weakness , reports fatigue reports lethargy. Positive for daytime sleepiness. HEENT: No headache. No blurred vision or double vision, no loss of vision. No loss of Hearing, no ringing in the ears, no dizziness. No nasal drainage or congestion. No epistaxis. No sore throat. Lungs: No shortness of breath, no cough, no sputum production. No wheezing. Reports dyspnea with activity. Cardiovascular: No chest pain, positive for lower extremity edema. No palpit ations. No paroxysmal nocturnal dyspnea. No orthopnea. No lightheadedness or dizziness. No syncopal episodes.Positive for nocturia. Abdominal: No abdominal pain. No nausea, vomiting. No diarrhea. No constipation. No bloody or tarry stools . No loss of appetite. Genitourinary: No dysuria, increased frequency, urgency. No urinary retention. Musculoskeletal: positive for neck pain, positive for chronic low back pain, positive for pain in both lower extremities with significant neuropathy, positive for gait dysfunction, positive for lower extremity weakness. Integumentary: venous stasis and stasis dermatitis and venous ulcers and increased erythema to the right lower extremity suggestive of cellulitis. Neurologic: No aphasia. No facial droop. Positive for memory loss. No head injury. No headache, positive for paresthesia in both lower extremities, back to baseline. Psychiatric: Patient does appear to be somewhat depressed, appears to be a bit anxious, no suicidal thoughts or ideation. Endocrine: No abnormal blood sugars, increased weight. PHYSICAL EXAMINATION: General: This is a 73-year-old male who is resting in bed and does not appear to be in acute distress. HEENT: Head is atraumatic, normocephalic, pupils were equal round reactive to light and recommendation, extraocular muscle movement were intact, sclera nonicteric, conjunctivae were pale, mucous membranes of the mouth are somewhat dry. Neck: Supple, no JVP, normal carotid upstroke bilaterally, no lymphadenopathy. Chest: Decreased breath sounds at the bases, few rhonchi, no expiratory wheezes, no chest wall tenderness, no intercostal retractions. Heart: First heart sound is normal, second heart sound is normal there is systolic ejection murmur 2/6 located in the left sternal border. Abdomen: Soft, nontender, nondistended, positive bowel sounds. Extremities: There is chronic significant venous stasis of right lower extremity with a chronic skin changes dorsalis pedis +1 bilaterally, there is redness to the right lower extremity suggestive of cellulitis with weeping venous ulcer m ostly in the right lower extremity more in the left lower extremity Neurologic examination: Patient is awake alert and oriented X 3, cranial nerves II-12 appear grossly intact, muscle power were 4 out of 5 in upper extremities and 3out of 5 in bilateral lower extremities, deep tendon reflexes were d epressed bilaterally. ASSESSMENT AND PLAN: 1. Altered level of consciousness likely related to metabolic encephalopathy due to pain treatment. patient is back to baseline at this time continue current treatment plan, monitor the patient very closely, neurology consultation appreciated. 2. Right lower extremity cellulitis with venous ulcerations bilaterally associated with SIRS.. Continue the patient on vancomycin since the patient had a history of MRSA in the past, Aquacel silver to both lower extremities wrapped with Kerlix wrap keep the leg elevated, decrease IV fluid to KVO. Infectious disease consultation from Dr. Medina 3. Left-sided pleural effusion with chronic diastolic heart failure. Metoprolol 50 mg orally twice every day, continue furosemide 40 mg once every day, monitor the patient's symptoms very closely. 4. Hypertension and hypertensive cardiovascular disease. Continue patient on metoprolol 50 mg orally twice every day, monitor the patient blood pressure very closely. 5. Hyperlipidemia. Continue atorvastatin 40 mg daily. Keep LDL 55-70. 6. Vascular dementia. Appears to be stable at this time. 7. History of chronic alcohol use and dependence. patient has quit 8. 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 continue patient on pregabalin 150 mg orally twice every day. 9. Bilateral lower extremity neuropathy continue patient on pregabalin 150 mg orally twice every day. 10. Peripheral neuropathy. Continue patient on pregabalin 150 mg orally 2 times every day. 11. DVT prophylaxis. Continue Lovenox 40 mg subcutaneously every 24 hours. 12. GI prophylaxis. Continue Protonix 40 mg orally once every day and famotidine 20 mg orally once every day. 13. Physical therapy evaluation for generalized weakness and bilateral lower extremity weakness. 14. 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 Objective - Vital Signs Vital signs: Vital Signs Temp 97.4 F L 09/27/24 14:00 Pulse 69 09/27/24 14:00 Resp 16 09/27/24 14:00 BP 118/84 09/27/24 14:00 Pulse Ox 94 L 09/27/24 14:00 FiO2 Intake & Output 09/26/24 09/27/24 09/27/24 18:59 06:59 18:59 Intake Total 1250 1580 Output Total 1275 0 150 Balance -25 1580 -150 Weight 131 kg Intake: IV 500 500 Vancomycin 2,000 mg In 500 500 Sodium Chloride 0.9% 500 ml 500 ml @ 167 mls/hr IVPB Q16H [facility] Rx#: [id number] Oral 750 1080 Output: Urine 1275 0 150 Other: Voiding Method Indwelling Catheter Urinal # Voids 4 1 # Bowel Movements 1 - Labs CBC & Chem 7: 09/28/24 06:13 09/29/24 05:45 Labs: Abnormal Lab Results - Last 24 Hours (Table) 09/27/24 09/27/24 Range/Units 03:40 03:40 RBC 3.39 L (4.30-5.90) m/uL Hgb 9.5 L (13.0-17.5) gm/dL Hct 30.5 L (39.0-53.0) % Sodium 136 L (137-145) mmol/L Glucose 140 H (74-99) mg/dL Total Protein 6.2 L (6.3-8.2) g/dL Albumin 3.3 L (3.5-5.0) g/dL
[2024-09-28] MEDS: hydrOXYzine HCL 25 MG TAB PO PRN (00:15)
[2024-09-28] MEDS: VANCOMYCIN TROUGH DUE 1 EACH MISC MISCELLANE ONE (07:02)
[2024-09-28 07:04] LABS: ALT 14 U/L (4-49); AST 28 U/L (17-59); African American GFR (CKD) >90 (>60 ml/min/1.73 sqM); Albumin 3.3 g/dL (3.5-5.0); Albumin/Globulin Ratio 1.2; Alkaline Phosphatase 69 U/L (38-126); Anion Gap 4 mmol/L; Blood Urea Nitrogen 13 mg/dL (9-20); Calcium 8.7 mg/dL (8.4-10.2); Carbon Dioxide 29 mmol/L (22-30); Chloride 101 mmol/L (98-107); Globulin 2.8 g/dL; Glucose 106 mg/dL (74-99); Non-African American GFR(CKD) >90 (>60 ml/min/1.73 sqM); Sodium 134 mmol/L (137-145); Total Bilirubin 0.3 mg/dL (0.2-1.3); Total Protein 6.1 g/dL (6.3-8.2)
[2024-09-28 09:56] LABS: Basophils # (A) 0.02 X 10*3/uL (0.00-0.10); Basophils % (A) 0.3 %; Eosinophils # (A) 1.13 X 10*3/uL (0.04-0.35); Eosinophils % (A) 18.1 %; HCT 30.6 % (39.6-50.0); HGB 9.5 g/dL (13.0-17.0); Lymphocytes # (A) 1.58 X 10*3/uL (0.90-5.00); Lymphocytes % (A) 25.3 %; MCH 27.5 pg (27.0-32.0); MCV 88.7 FL (80.0-97.0); Mean Platelet Volume 11.7 FL (9.5-12.2); Monocytes # (A) 1.26 X 10*3/uL (0.20-1.00); Monocytes % (A) 20.2 %; NRBC Per 100 WBC 0 X 10*3/uL (0.00-0.01); Neutrophils # (A) 2.24 X 10*3/uL (1.80-7.70); Neutrophils % (A) 35.9 %; Platelet Count 174 X 10*3/uL (140-440); RBC 3.45 X 10*6/uL (4.40-5.60); RDW 14.2 % (11.5-14.5); WBC 6.24 X 10*3/uL (4.50-10.00)
[2024-09-28] MEDS: BACLOFEN 10 MG TAB PO PRN (10:12)
--- NOTE | 2024-09-28 16:42 | P.PN ---
Subjective Progress Note Date: 09/28/24 HISTORY OF PRESENT ILLNESS: This is a 74-year-old male one of my patient with a previous medical history significant for hypertension and hypertensive cardiovascular disease, hyperlipidemia, obesity with obstructive sleep apnea, history of chronic alcohol use and dependence with the peripheral neuropathy, significant spondylosis of the lumbar spine with spinal stenosis and significant chronic low back pain, patient was recently hospitalized at [facility] about a month ago for MRSA cellulitis of the left lower extremity along with multiple wounds secondary to him being picking on his skin he ended up getting discharged to [facility] in [facility] and he was just recently discharged from the facility back to his assisted living facility [facility], apparently the patient was brought into the emergency department at [facility] after he was found on the floor with altered level of consciousness, he was seen in the emergency department, by the emergency room physician Dr. Islas, underwent CT scan of the brain did not show evidence of acute abnormalities, he did have a lot of moving artifact, patient did receive Narcan in the emergency department, with minimal response, he ended up getting admitted to the intensive care unit as a stepdown overflow, patient appears to be back to his baseline at this time. 09/25: Patient is having increased redness to the right lower extremity with increased weeping from the venous ulcer mostly of the right lower extremity more than the left lower extremity, in view of this and because of the prior history of MRSA I will start the patient on vancomycin along with Aquacel silver with Kerlix wrap for both lower extremities and keep the leg elevated at this time, infectious ease consultation will be obtained as well, patient is asking to schedule his pain medication as he is not tremendous amount of pain at this point in time, we will schedule his Percocet to every 4 hours [id number], monitor the patient for sedation, and hold for sedation as well. Patient will be seen in consultation by physical therapy as well as by sr. social media & mobile manager for discharge planning. 09/26: Patient is laying down in bed in no apparent distress at this time, he continued to have significant mount of pain in the left knee, he denies any chest pain at this time, shortness of breath, he did have a bowel movement today he denies any abdominal pain, nausea vomiting or diarrhea he has no dysphagia at this time, he was seen yesterday by infectious disease, who recommended for the patient to continue vancomycin for now along with local care for the right lower extremity and the left lower extremity with Rocky wrap keep the leg elevated, patient will be seen in consultation by physical therapy for discharge planning as well as sr. social media & mobile manager. Continue current treatment as ordered. 09/27: Patient is laying down in bed in no apparent distress, he denies any chest pain, shortness of breath, he has no abdominal pain, nausea vomiting or diarrhea, he has significant improvement of the right lower extremity celluliti s, he continues to have venous ulceration that has been treated with Aquacel silver, with Rocky wrap and leg elevation, patient was seen and evaluated by physical therapy as well as sr. social media & mobile manager, we will plan to send the patient to subacute rehabilitation at the patient will need some help at this point in time. 09/28: Patient sitting up in the chair is complaining of significant pain in the neck area, he is not able to ambulate because he is not able to keep his neck up, patient will be started on baclofen, 10 mg orally 3 times every day, continue current pain management, patient will need to follow-up with the spine surgeon as an outpatient, he was seen as an outpatient by Dr. Manuel, however he was discharged from the practice for what ever reason, patient stated that he is jose be starting with advanced orthopedics for further evaluation, physical therapy evaluation, continue current treatment plan, will follow-up with the patient very closely. REVIEW OF SYSTEMS: Constitutional: No documented fever, no chills, no night sweats. No weight change. positive for weakness , reports fatigue reports lethargy. Positive for daytime sleepiness. HEENT: No headache. No blurred vision or double vision, no loss of vision. No loss of Hearing, no ringing in the ears, no dizziness. No nasal drainage or congestion. No epistaxis. No sore throat. Lungs: No shortness of breath, no cough, no sputum production. No wheezing. Reports dyspnea with activity. Cardiovascular: No chest pain, positive for lower extremity edema. No palpitations. No paroxysmal nocturnal dyspnea. No orthopnea. No lightheadedness or dizziness. No syncopal episodes.Positive for nocturia. Abdominal: No abdominal pain. No nausea, vomiting. No diarrhea. No constipation. No bloody or tarry stools . No loss of appetite. Genitourinary: No dysuria, increased frequency, urgency. No urinary retention. Musculoskeletal: positive for neck pain, positive for chronic low back pain, positive for pain in both lower extremities with significant neuropathy, positive for gait dysfunction, positive for lower extremity weakness. Integumentary: venous stasis and stasis dermatitis and venous ulcers and in creased erythema to the right lower extremity suggestive of cellulitis. Neurologic: No aphasia. No facial droop. Positive for memory loss. No head injury. No headache, positive for paresthesia in both lower extremities, back to baseline. Psychiatric: Patient does appear to be somewhat depressed, appears to be a bit anxious, no suicidal thoughts or ideation. Endocrine: No abnormal blood sugars, increased weight. PHYSICAL EXAMINATION: General: This is a 74-year-old male who is resting in bed and does not appear to be in acute distress. HEENT: Head is atraumatic, normocephalic, pupils were equal round reactive to light and recommendation, extraocular muscle movement were intact, sclera nonicteric, conjunctivae were pale, mucous membranes of the mouth are somewhat dry. Neck: Supple, no JVP, normal carotid upstroke bilaterally, no lymphadenopathy. Chest: Decreased breath sounds at the bases, few rhonchi, no expiratory wheezes, no chest wall tenderness, no intercostal retractions. Heart: First heart sound is normal, second heart sound is normal there is systolic ejection murmur 2/6 located in the left sternal border. Abdomen: Soft, nontender, nondistended, positive bowel sounds. Extremities: There is chronic significant venous stasis of right lower extremity with a chronic skin changes dorsalis pedis +1 bilaterally, there is redness to the right lower extremity suggestive of cellulitis with weeping venous ulcer mostly in the right lower extremity more in the left lower extremity Neurologic examination: Patient is awake alert and oriented X 3, cranial nerves II-12 appear grossly intact, muscle power were 4 out of 5 in upper extremities and 3out of 5 in bilateral lower extremities, deep tendon reflexes were depressed bilaterally. ASSESSMENT AND PLAN: 1. Altered level of consciousness likely related to metabolic encephalopathy due to pain treatment. patient is back to baseline at this time continue current treatment plan, monitor the patient very closely, neurology consultation appreciated. 2. Right lower extremity cellulitis with venous ulcerations bilaterally associated with SIRS.. Continue the patient on vancomycin since the patient had a history of MRSA in the past, Aquacel silver to both lower extremities wrapped with Kerlix wrap keep the leg elevated, decrease IV fluid to KVO. Infectious disease consultation from Dr. Medina 3. Left-sided pleural effusion with chronic diastolic heart failure. Metoprolol 50 mg orally twice every day, continue frusemide 40 mg once every day, monitor the patient's symptoms very closely. 4. Hypertension and hypertensive cardiovascular disease. Continue patient on metoprolol 50 mg orally twice every day, monitor the patient blood pressure very closely. 5. Hyperlipidemia. Continue atorvastatin 40 mg daily. Keep LDL 55-70. 6. Vascular dementia. Appears to be stable at this time. 7. History of chronic alcohol use and dependence. patient has quit 8. 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 Continue oxycodone 10/325 mg orally every 4 hours [id number], continue patient on pregabalin 150 mg orally twice every day. 9. Bilateral lower extremity neuropathy continue patient on pregabalin 150 mg orally twice every day. 10. Peripheral neuropathy. Continue patient on pregabalin 150 mg orally 2 times every day. 11. DVT prophylaxis. Continue Lovenox 40 mg subcutaneously every 24 hours. 12. GI prophylaxis. Continue Protonix 40 mg orally once every day and famotidine 20 mg orally once every day. 13. Physical therapy evaluation for generalized weakness and bilateral lower extremity weakness. 14. 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 Objective - Vital Signs Vital signs: Vital Signs Temp 98.3 F 09/28/24 07:12 Pulse 63 09/28/24 07:12 Resp 16 09/28/24 07:12 BP 137/68 09/28/24 07:12 Pulse Ox 98 09/28/24 07:12 FiO2 Intake & Output 09/27/24 09/28/24 09/28/24 18:59 06:59 18:59 Intake Total 500 Output Total 150 500 Balance 350 -500 Intake: IV 500 Vancomycin 2,000 mg In 500 Sodium Chloride 0.9% 500 ml 500 ml @ 167 mls/hr IVPB Q16H [facility] Rx#: [id number] Output: Urine 150 500 Other: Voiding Method Urinal # Voids 1 4 # Bowel Movements 1 - Labs CBC & Chem 7: 09/28/24 06:13 09/29/24 05:45 Labs: Abnormal Lab Results - Last 24 Hours (Table) 09/28/24 Range/Units 06:13 Sodium 134 L (137-145) mmol/L Glucose 106 H (74-99) mg/dL Total Protein 6.1 L (6.3-8.2) g/dL Albumin 3.3 L (3.5-5.0) g/dL
--- NOTE | 2024-09-28 22:04 | P.PN ---
Subjective Progress Note Date: 09/28/24 Principal diagnosis: Reason for follow-up with right lower extremity cellulitis and ulcer Patient is a 74-year-old male with a past medical history significant for hypertension osteoarthritis chronic back pain chronic swelling to bilateral extremity did have venous stasis ulcers and history of cellulitis secondary to MRSA brought to the hospital of the patient was found to be on the floor noticed to have increasing redness to the right leg concerning for cellulitis prompting this consultation. On today's evaluation that is 09/28/2024, patient did not have any fever and denies any chills, patient is currently on room air complaining of some shortness of breath, patient with no chest pain or cough patient did not have any abdominal pain nausea vomiting or any loose stools has been complaining of mostly been to the neck area no pain to the low to 70. Patient white count 6.24 creatinine 0.79 Objective - Vital Signs Vital signs: Vital Signs Temp 98.4 F 09/28/24 13:32 Pulse 71 09/28/24 13:32 Resp 16 09/28/24 13:32 BP 137/65 09/28/24 13:32 Pulse Ox 96 09/28/24 13:32 FiO2 Intake & Output 09/27/24 09/28/24 09/28/24 18:59 06:59 18:59 Intake Total 500 Output Total 150 500 Balance 350 -500 Intake: IV 500 Vancomycin 2,000 mg In 500 Sodium Chloride 0.9% 500 ml 500 ml @ 167 mls/hr IVPB Q16H [facility] Rx#: [id number] Output: Urine 150 500 Other: Voiding Method Urinal Urinal # Voids 1 4 # Bowel Movements 1 - Exam GENERAL DESCRIPTION: An elderly male up in the chair In no distress RESPIRATORY SYSTEM: Unlabored breathing , decreased breath sounds at bases HEART: S1 S2 regular rate and rhythm , ABDOMEN: Soft , no tenderness EXTREMITIES: Bilateral lower extremity currently wrapped with Rocky wrap - Labs CBC & Chem 7: 09/28/24 06:13 09/28/24 06:13 Labs: Abnormal Lab Results - Last 24 Hours (Table) 09/28/24 09/28/24 Range/Units 06:13 06:13 RBC 3.45 L (4.40-5.60) X 10*6/uL Hgb 9.5 L (13.0-17.0) g/dL Hct 30.6 L (39.6-50.0) % MCHC 31.0 L (32.0-37.0) g/dL Monocytes # 1.26 H (0.20-1.00) X 10*3/uL Eosinophils # 1.13 H (0.04-0.35) X 10*3/uL Sodium 134 L (137-145) mmol/L Glucose 106 H (74-99) mg/dL Total Protein 6.1 L (6.3-8.2) g/dL Albumin 3.3 L (3.5-5.0) g/dL Assessment and Plan (1) Cellulitis of right leg Current Visit: No Status: Acute Code(s): L03.115 - CELLULITIS OF RIGHT LOWER LIMB SNOMED Code(s): 38679706071027844 (2) Venous ulcer of right leg Current Visit: Yes Status: Acute Code(s): I83.019 - VARICOSE VEINS OF RIGHT LOWER EXTREMITY W ULCER OF UNSP SITE; L97.919 - NON-PRS CHRONIC ULC UNSP PRT OF R LOW LEG W UNSP SEVERITY SNOMED Code(s): 3272826197 Plan: 1patient presented hospital after he was found on the floor mental status changes also noted to have increasing swelling and redness to the right lower extremity which is warm to touch did have some superficial ulceration concerning for cellulitis in this patient who did have a previous history of MRSA infection 2patient is afebrile vitals normal, patient will be treated with vancomycin pharmacy to dose watching his kidney function closely and local wound care with the Aquacel dressing and Rocky wrap discussed with the nursing staff Dictation was produced using [employer] dictation software. please excuse any grammatical, word or spelling errors. Time with Patient: Less than 30
[2024-09-29 06:28] LABS: African American GFR (CKD) >90 (>60 ml/min/1.73 sqM); Non-African American GFR(CKD) 84 (>60 ml/min/1.73 sqM)
--- NOTE | 2024-09-29 11:40 | P.PN ---
Subjective Progress Note Date: 09/29/24 HISTORY OF PRESENT ILLNESS: This is a 74-year-old male one of my patient with a previous medical history significant for hypertension and hypertensive cardiovascular disease, hyperlipidemia, obesity with obstructive sleep apnea, history of chronic alcohol use and dependence with the peripheral neuropathy, significant spondylosis of the lumbar spine with spinal stenosis and significant chronic low back pain, patient was recently hospitalized at [facility] about a month ago for MRSA cellulitis of the left lower extremity along with multiple wounds secondary to him being picking on his skin he ended up getting discharged to [facility] in [facility] and he was just recently discharged from the facility back to his assisted living facility [facility], apparently the patient was brought into the emergency department at [facility] after he was found on the floor with altered level of consciousness, he was seen in the emergency department, by the emergency room physician Dr. Islas, underwent CT scan of the brain did not show evidence of acute abnormalities, he did have a lot of moving artifact, patient did receive Narcan in the emergency department, with minimal response, he ended up getting admitted to the intensive care unit as a stepdown overflow, patient appears to be back to his baseline at this time. 09/25: Patient is having increased redness to the right lower extremity with increased weeping from the venous ulcer mostly of the right lower extremity more than the left lower extremity, in view of this and because of the prior history of MRSA I will start the patient on vancomycin along with Aquacel silver with Kerlix wrap for both lower extremities and keep the leg elevated at this time, infectious ease consultation will be obtained as well, patient is asking to schedule his pain medication as he is not tremendous amount of pain at this point in time, we will schedule his Percocet to every 4 hours [id number], monitor the patient for sedation, and hold for sedation as well. Patient will be seen in consultation by physical therapy as well as by social work nurse for discharge planning. 09/26: Patient is laying down in bed in no apparent distress at this time, he continued to have significant mount of pain in the left knee, he denies any chest pain at this time, shortness of breath, he did have a bowel movement today he denies any abdominal pain, nausea vomiting or diarrhea he has no dysphagia at this time, he was seen yesterday by infectious disease, who recommended for the patient to continue vancomycin for now along with local care for the right lower extremity and the left lower extremity with Rocky wrap keep the leg elevated, patient will be seen in consultation by physical therapy for discharge planning as well as social work nurse. Continue current treatment as ordered. 09/27: Patient is laying down in bed in no apparent distress, he denies any chest pain, shortness of breath, he has no abdominal pain, nausea vomiting or diarrhea, he has significant improvement of the right lower extremity celluliti s, he continues to have venous ulceration that has been treated with Aquacel silver, with Rocky wrap and leg elevation, patient was seen and evaluated by physical therapy as well as social work nurse, we will plan to send the patient to subacute rehabilitation at the patient will need some help at this point in time. 09/28: Patient sitting up in the chair is complaining of significant pain in the neck area, he is not able to ambulate because he is not able to keep his neck up, patient will be started on baclofen, 10 mg orally 3 times every day, continue current pain management, patient will need to follow-up with the spine surgeon as an outpatient, he was seen as an outpatient by Dr. Reyes, however he was discharged from the practice for what ever reason, patient stated that he is jose be starting with advanced orthopedics for further evaluation, physical therapy evaluation, continue current treatment plan, will follow-up with the patient very closely. 09/29: Patient sitting up in the chair he is complaining of increased pain in the neck area, down the shoulder, he has been getting baclofen 10 mg orally 3 times every day along with Percocet every 4 hours [id number], patient denies any chest pain, he does have occasional cough, minimal phlegm production, he has no abdominal pain, he did not have bowel movement today, he appears to be more comfortable at this point in time, we will continue to follow-up with the patient very closely continue vancomycin, continue local care for the lower extremities, will plan for the patient to go for subacute rehabilitation in the next few days. REVIEW OF SYSTEMS: Constitutional: No documented fever, no chills, no night sweats. No weight change. positive for weakness , reports fatigue reports lethargy. Positive for daytime sleepiness. HEENT: No headache. No blurred vision or double vision, no loss of vision. No loss of Hearing, no ringing in the ears, no dizziness. No nasal drainage or congestion. No epistaxis. No sore throat. Lungs: No shortness of breath, occasional cough, no sputum production. No wheezing. Reports dyspnea with activity. Cardiovascular: No chest pain, positive for lower extremity edema. No palpit ations. No paroxysmal nocturnal dyspnea. No orthopnea. No lightheadedness or dizziness. No syncopal episodes.Positive for nocturia. Abdominal: No abdominal pain. No nausea, vomiting. No diarrhea. No constipation. No bloody or tarry stools . No loss of appetite. Genitourinary: No dysuria, increased frequency, urgency. No urinary retention. Musculoskeletal: positive for neck pain, positive for chronic low back pain, positive for pain in both lower extremities with significant neuropathy, positive for gait dysfunction, positive for lower extremity weakness. Integumentary: venous stasis and stasis dermatitis and venous ulcers and increased erythema to the right lower extremity suggestive of cellulitis. Neurologic: No aphasia. No facial droop. Positive for memory loss. No head injury. No headache, positive for paresthesia in both lower extremities, back to baseline. Psychiatric: Patient does appear to be somewhat depressed, appears to be a bit anxious, no suicidal thoughts or ideation. Endocrine: No abnormal blood sugars, increased weight. PHYSICAL EXAMINATION: General: This is a 74-year-old male who is sitting up in chair in no apparent distress. HEENT: Head is atraumatic, normocephalic, pupils were equal round reactive to light and recommendation, extraocular muscle movement were intact, sclera nonicteric, conjunctivae were pale, mucous membranes of the mouth are somewhat dry. Neck: Supple, no JVP, normal carotid upstroke bilaterally, no lymphadenopathy. Chest: Decreased breath sounds at the bases, few rhonchi, no expiratory wheezes, no chest wall tenderness, no intercostal retractions. Heart: First heart sound is normal, second heart sound is normal there is systolic ejection murmur 2/6 located in the left sternal border. Abdomen: Soft, nontender, nondistended, positive bowel sounds. Extremities: There is chronic significant venous stasis of right lower extremity with a chronic skin changes dorsalis pedis +1 bilaterally, there is redness to the right lower extremity suggestive of cellulitis with weeping venous ulcer mostly in the right lower extremity more in the left lower extremity Neurologic examination: Patient is awake alert and oriented X 3, cranial nerves II-12 appear grossly intact, muscle power were 4 out of 5 in upper extremities and 3out of 5 in bilateral lower extremities, deep tendon reflexes were depressed bilaterally. ASSESSMENT AND PLAN: 1. Altered level of consciousness likely related to metabolic encephalopathy due to pain treatment. Patient is back to baseline at this point in time, continue current treatment plan, avoid Narcan as the patient has been on chronic opioid use. To avoid seizure. Repeated CT scan did not show evidence of any subdural hematoma. 2. Right lower extremity cellulitis with venous ulcerations bilaterally associated with SIRS.. Continue IV antibiotic in the form of vancomycin, continue Aquacel silver, continue rocky wraps, elevate legs follow-up with the patient. 3. Left-sided pleural effusion with chronic diastolic heart failure. Metoprolol 50 mg orally twice every day, continue frusemide 40 mg once every day, monitor the patient's symptoms very closely. 4. Hypertension and hypertensive cardiovascular disease. Continue patient on metoprolol 50 mg orally twice every day, monitor the patient blood pressure very closely. 5. Hyperlipidemia. Continue atorvastatin 40 mg daily. Keep LDL 55-70. 6. Vascular dementia. Appears to be stable at this time. 7. History of chronic alcohol use and dependence. patient has quit 8. 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 Continue patient on Percocet 10/325 mg 1 tablet orally every 4 hours as needed [id number], continue baclofen 10 mg orally 3 times every day, continue pregabalin 150 mg orally twice every day. 9. Bilateral lower extremity neuropathy continue patient on Lyrica 150 mg orally twice every day. 10. DVT prophylaxis. Continue Lovenox 40 mg subcutaneously every 24 hours. 11. GI prophylaxis. Continue Protonix 40 mg orally once every day and famotidine 20 mg orally once every day. 12. Physical therapy evaluation for generalized weakness and bilateral lower extremity weakness. 13. nursery worker consultation for discharge planning. Objective - Vital Signs Vital signs: Vital Signs Temp 98.9 F 09/29/24 07:00 Pulse 62 09/29/24 07:00 Resp 16 09/29/24 07:00 BP 147/77 09/29/24 07:00 Pulse Ox 95 09/29/24 07:00 FiO2 Intake & Output 09/28/24 09/29/24 09/29/24 18:59 06:59 18:59 Output Total 1999 -1999 Output: Urine 1999 Other: Voiding Method Urinal Urinal Urinal # Voids 1 - Labs CBC & Chem 7: 09/28/24 06:13 09/29/24 05:45
--- NOTE | 2024-09-29 15:14 | P.PN ---
Subjective Progress Note Date: 09/29/24 Principal diagnosis: Reason for follow-up with right lower extremity cellulitis and ulcer Patient is a 74-year-old male with a past medical history significant for hypertension osteoarthritis chronic back pain chronic swelling to bilateral extremity did have venous stasis ulcers and history of cellulitis secondary to MRSA brought to the hospital of the patient was found to be on the floor noticed to have increasing redness to the right leg concerning for cellulitis prompting this consultation. On today's evaluation that is 09/29/2024, Patient is afebrile patient is currently on room air and denies having any shortness of breath, the patient denies any chest pain or cough, the patient denies any nausea vomiting did not have any abdominal pain and no diarrhea has been complaining of mostly pain to the neck area and some discomfort to the legs. Patient did have a creatinine 0.91 vancomycin trough is 17.3 Objective - Vital Signs Vital signs: Vital Signs Temp 98.9 F 09/29/24 07:00 Pulse 62 09/29/24 07:00 Resp 16 09/29/24 07:00 BP 147/77 09/29/24 07:00 Pulse Ox 95 09/29/24 07:00 FiO2 Intake & Output 09/28/24 09/29/24 09/29/24 18:59 06:59 18:59 Output Total 1999 -1999 Output: Urine 1999 Other: Voiding Method Urinal Urinal Urinal # Voids 1 - Exam GENERAL DESCRIPTION: An elderly male up in the chair In no distress RESPIRATORY SYSTEM: Unlabored breathing , decreased breath sounds at bases HEART: S1 S2 regular rate and rhythm , ABDOMEN: Soft , no tenderness EXTREMITIES: Bilateral lower extremity currently wrapped with Rocky wrap - Labs CBC & Chem 7: 09/28/24 06:13 09/29/24 05:45 Assessment and Plan (1) Cellulitis of right leg Current Visit: No Status: Acute Code(s): L03.115 - CELLULITIS OF RIGHT LOWER LIMB SNOMED Code(s): 54001727091358462 (2) Venous ulcer of right leg Current Visit: Yes Status: Acute Code(s): I83.019 - VARICOSE VEINS OF RIGHT LOWER EXTREMITY W ULCER OF UNSP SITE; L97.919 - NON-PRS CHRONIC ULC UNSP PRT OF R LOW LEG W UNSP SEVERITY SNOMED Code(s): 4024144561 Plan: 1patient presented hospital after he was found on the floor mental status changes also noted to have increasing swelling and redness to the right lower extremity which is warm to touch did have some superficial ulceration concerning for cellulitis in this patient who did have a previous history of MRSA infection 2patient is afebrile and the patient white count has been normal Vanco levels therapeutic, 3-patient will be treated with vancomycin pharmacy to dose watching his kidney function closely and local wound care with the Aquacel dressing and Rocky wrap, oral antibiotics on discharge Dictation was produced using [employer] dictation software. please excuse any grammatical, word or spelling errors. Time with Patient: Less than 30
[2024-09-30 04:11] LABS: ALT 13 U/L (4-49); AST 23 U/L (17-59); African American GFR (CKD) >90 (>60 ml/min/1.73 sqM); Albumin 3.5 g/dL (3.5-5.0); Albumin/Globulin Ratio 1.2; Alkaline Phosphatase 67 U/L (38-126); Anion Gap 7 mmol/L; Blood Urea Nitrogen 20 mg/dL (9-20); Calcium 8.7 mg/dL (8.4-10.2); Carbon Dioxide 30 mmol/L (22-30); Chloride 98 mmol/L (98-107); Globulin 2.9 g/dL; Glucose 96 mg/dL (74-99); Non-African American GFR(CKD) 81 (>60 ml/min/1.73 sqM); Potassium 4.4 mmol/L (3.5-5.1); Sodium 135 mmol/L (137-145); Total Bilirubin 0.2 mg/dL (0.2-1.3); Total Protein 6.4 g/dL (6.3-8.2)
[2024-09-30 09:06] LABS: Basophils # (A) 0.04 X 10*3/uL (0.00-0.10); Basophils % (A) 0.6 %; Eosinophils # (A) 0.91 X 10*3/uL (0.04-0.35); Eosinophils % (A) 13.6 %; HGB 9.3 g/dL (13.0-17.0); Lymphocytes # (A) 2.32 X 10*3/uL (0.90-5.00); Lymphocytes % (A) 34.7 %; MCH 27.8 pg (27.0-32.0); MCV 89.8 FL (80.0-97.0); Mean Platelet Volume 11.2 FL (9.5-12.2); Monocytes # (A) 0.88 X 10*3/uL (0.20-1.00); Monocytes % (A) 13.2 %; NRBC Per 100 WBC 0 X 10*3/uL (0.00-0.01); Neutrophils # (A) 2.51 X 10*3/uL (1.80-7.70); Neutrophils % (A) 37.6 %; Platelet Count 231 X 10*3/uL (140-440); RBC 3.34 X 10*6/uL (4.40-5.60); RDW 14.1 % (11.5-14.5); WBC 6.68 X 10*3/uL (4.50-10.00)
--- NOTE | 2024-09-30 11:59 | P.PN ---
Subjective Progress Note Date: 09/30/24 Principal diagnosis: Reason for follow-up with right lower extremity cellulitis and ulcer Patient is a 74-year-old male with a past medical history significant for hypertension osteoarthritis chronic back pain chronic swelling to bilateral extremity did have venous stasis ulcers and history of cellulitis secondary to MRSA brought to the hospital of the patient was found to be on the floor noticed to have increasing redness to the right leg concerning for cellulitis prompting this consultation. On today's evaluation that is 09/30/2023, patient has been afebrile, patient is breathing comfortably and is currently on room air, patient denies having any significant cough no chest pain, patient denies nausea vomiting or diarrhea and no abdominal pain denies any worsening pain to bilateral lower extremity wound overall swelling redness has decreased. Patient white count 6.8, creatinine 0.94 blood culture this admission last lower extremity culture were MRSA there was resistant to tetracycline Objective - Vital Signs Vital signs: Vital Signs Temp 97.7 F 09/30/24 07:42 Pulse 58 L 09/30/24 07:42 Resp 18 09/30/24 07:42 BP 147/75 09/30/24 07:42 Pulse Ox 98 09/30/24 07:42 FiO2 Intake & Output 09/29/24 09/30/24 09/30/24 18:59 06:59 18:59 Output Total 500 500 Balance -500 -500 Output: Urine 500 500 Other: Voiding Method Urinal Urinal Urinal # Voids 4 4 # Bowel Movements 1 - Exam GENERAL DESCRIPTION: An elderly male up in the chair In no distress RESPIRATORY SYSTEM: Unlabored breathing , decreased breath sounds at bases HEART: S1 S2 regular rate and rhythm , ABDOMEN: Soft , no tenderness EXTREMITIES: Bilateral lower extremity swelling and redness has decreased no drainage - Labs CBC & Chem 7: 09/30/24 03:11 09/30/24 03:11 Labs: Abnormal Lab Results - Last 24 Hours (Table) 09/30/24 09/30/24 Range/Units 03:11 03:11 RBC 3.34 L (4.40-5.60) X 10*6/uL Hgb 9.3 L (13.0-17.0) g/dL Hct 30.0 L (39.6-50.0) % MCHC 31.0 L (32.0-37.0) g/dL Eosinophils # 0.91 H (0.04-0.35) X 10*3/uL Sodium 135 L (137-145) mmol/L Assessment and Plan (1) Cellulitis of right leg Current Visit: No Status: Acute Code(s): L03.115 - CELLULITIS OF RIGHT LOWER LIMB SNOMED Code(s): 57350296993003665 (2) Venous ulcer of right leg Current Visit: Yes Status: Acute Code(s): I83.019 - VARICOSE VEINS OF RIGHT LOWER EXTREMITY W ULCER OF UNSP SITE; L97.919 - NON-PRS CHRONIC ULC UNSP PRT OF R LOW LEG W UNSP SEVERITY SNOMED Code(s): 0741328721 Plan: 1patient presented hospital after he was found on the floor mental status changes also noted to have increasing swelling and redness to the right lower extremity which is warm to touch did have some superficial ulceration concerning for cellulitis in this patient who did have a previous history of MRSA infection 2patient is afebrile and the patient white count has been normal Vanco levels therapeutic, 3-patient has shown improvement with vancomycin pharmacy to dose along with local wound care with the Aquacel dressing and Rocky wrap, 4-plan to finish therapy with a 5-day course of Bactrim DS on discharge Dictation was produced using [employer] dictation software. please excuse any grammatical, word or spelling errors. Time with Patient: Less than 30
--- NOTE | 2024-09-30 13:10 | P.PN ---
Subjective Progress Note Date: 09/30/24 HISTORY OF PRESENT ILLNESS: This is a 74-year-old male one of my patient with a previous medical history significant for hypertension and hypertensive cardiovascular disease, hyperlipidemia, obesity with obstructive sleep apnea, history of chronic alcohol use and dependence with the peripheral neuropathy, significant spondylosis of the lumbar spine with spinal stenosis and significant chronic low back pain, patient was recently hospitalized at [facility] about a month ago for MRSA cellulitis of the left lower extremity along with multiple wounds secondary to him being picking on his skin he ended up getting discharged to [facility] in [facility] and he was just recently discharged from the facility back to his assisted living facility [facility], apparently the patient was brought into the emergency department at [facility] after he was found on the floor with altered level of consciousness, he was seen in the emergency department, by the emergency room physician Dr. Islas, underwent CT scan of the brain did not show evidence of acute abnormalities, he did have a lot of moving artifact, patient did receive Narcan in the emergency department, with minimal response, he ended up getting admitted to the intensive care unit as a stepdown overflow, patient appears to be back to his baseline at this time. 09/25: Patient is having increased redness to the right lower extremity with increased weeping from the venous ulcer mostly of the right lower extremity more than the left lower extremity, in view of this and because of the prior history of MRSA I will start the patient on vancomycin along with Aquacel silver with Kerlix wrap for both lower extremities and keep the leg elevated at this time, infectious ease consultation will be obtained as well, patient is asking to schedule his pain medication as he is not tremendous amount of pain at this point in time, we will schedule his Percocet to every 4 hours [id number], monitor the patient for sedation, and hold for sedation as well. Patient will be seen in consultation by physical therapy as well as by social services counselor for discharge planning. 09/26: Patient is laying down in bed in no apparent distress at this time, he continued to have significant mount of pain in the left knee, he denies any chest pain at this time, shortness of breath, he did have a bowel movement today he denies any abdominal pain, nausea vomiting or diarrhea he has no dysphagia at this time, he was seen yesterday by infectious disease, who recommended for the patient to continue vancomycin for now along with local care for the right lower extremity and the left lower extremity with Rocky wrap keep the leg elevated, patient will be seen in consultation by physical therapy for discharge planning as well as social services counselor. Continue current treatment as ordered. 09/27: Patient is laying down in bed in no apparent distress, he denies any chest pain, shortness of breath, he has no abdominal pain, nausea vomiting or diarrhea, he has significant improvement of the right lower extremity celluliti s, he continues to have venous ulceration that has been treated with Aquacel silver, with Rocky wrap and leg elevation, patient was seen and evaluated by physical therapy as well as social services counselor, we will plan to send the patient to subacute rehabilitation at the patient will need some help at this point in time. 09/28: Patient sitting up in the chair is complaining of significant pain in the neck area, he is not able to ambulate because he is not able to keep his neck up, patient will be started on baclofen, 10 mg orally 3 times every day, continue current pain management, patient will need to follow-up with the spine surgeon as an outpatient, he was seen as an outpatient by Dr. Reyes, however he was discharged from the practice for what ever reason, patient stated that he is jose be starting with advanced orthopedics for further evaluation, physical therapy evaluation, continue current treatment plan, will follow-up with the patient very closely. 09/29: Patient sitting up in the chair he is complaining of increased pain in the neck area, down the shoulder, he has been getting baclofen 10 mg orally 3 times every day along with Percocet every 4 hours [id number], patient denies any chest pain, he does have occasional cough, minimal phlegm production, he has no abdominal pain, he did not have bowel movement today, he appears to be more comfortable at this point in time, we will continue to follow-up with the patient very closely continue vancomycin, continue local care for the lower extremities, will plan for the patient to go for subacute rehabilitation in the next few days. 09/30: Patient is sitting up in the recliner chair no apparent distress, he denies any chest pain, shortness of breath, his neck feels better than yesterday, he continues to be on baclofen 10 mg orally 3 times every day as well as Percocet, he has no abdominal pain, he did have a bowel movement yesterday, he has no hematemesis or hematochezia, he continued to have some venous ulcer mostly in the right lower extremity more than the left lower extremity that is being treated with Aquacel silver, we will continue with vancomycin for another 24 hours, then the patient can be switched to oral Bactrim double strength 1 tablet orally twice every day for the next 7 days. set up worker for discharge planning. REVIEW OF SYSTEMS: Constitutional: No documented fever, no chills, no night sweats. No weight change. positive for weakness , reports fatigue reports lethargy. Positive for daytime sleepiness. HEENT: No headache. No blurred vision or double vision, no loss of vision. No loss of Hearing, no ringing in the ears, no dizziness. No nasal drainage or congestion. No epistaxis. No sore throat. Lungs: No shortness of breath, occasional cough, no sputum production. No wheezing. Reports dyspnea with activity. Cardiovascular: No chest pain, positive for lower extremity edema. No palpitations. No paroxysmal nocturnal dyspnea. No orthopnea. No lightheadedness or dizziness. No syncopal episodes.Positive for nocturia. Abdominal: No abdominal pain. No nausea, vomiting. No diarrhea. No constipation. No bloody or tarry stools . No loss of appetite. Genitourinary: No dysuria, increased frequency, urgency. No urinary retention. Musculoskeletal: positive for neck pain, positive for chronic low back pain, positive for pain in both lower extremities with significant neuropathy, positive for gait dysfunction, positive for lower extremity weakness. Integumentary: venous stasis and stasis dermatitis and venous ulcers and increased erythema to the right lower extremity suggestive of cellulitis. Neurologic: No aphasia. No facial droop. Positive for memory loss. No head injury. No headache, positive for paresthesia in both lower extremities, back to baseline. Psychiatric: Patient does appear to be somewhat depressed, appears to be a bit anxious, no suicidal thoughts or ideation. Endocrine: No abnormal blood sugars, increased weight. PHYSICAL EXAMINATION: General: This is a 74-year-old male who is sitting up in chair in no apparent distress. HEENT: Head is atraumatic, normocephalic, pupils were equal round reactive to light and recommendation, extraocular muscle movement were intact, sclera nonicteric, conjunctivae were pale, mucous membranes of the mouth are somewhat dry. Neck: Supple, no JVP, normal carotid upstroke bilaterally, no lymphadenopathy. Chest: Decreased breath sounds at the bases, few rhonchi, no expiratory wheezes, no chest wall tenderness, no intercostal retractions. Heart: First heart sound is normal, second heart sound is normal there is systolic ejection murmur 2/6 located in the left sternal border. Abdomen: Soft, nontender, nondistended, positive bowel sounds. Extremities: There is chronic significant venous stasis of right lower extremity with a chronic skin changes dorsalis pedis +1 bilaterally, there is redness to the right lower extremity suggestive of cellulitis with weeping venous ulcer mostly in the right lower extremity more in the left lower extremity Neurologic examination: Patient is awake alert and oriented X 3, cranial nerves II-12 appear grossly intact, muscle power were 4 out of 5 in upper extremities and 3out of 5 in bilateral lower extremities, deep tendon reflexes were depre ssed bilaterally. ASSESSMENT AND PLAN: 1. Altered level of consciousness likely related to metabolic encephalopathy due to pain treatment. Patient is back to baseline at this point in time, ion berg current treatment plan, avoid Narcan as the patient has been on chronic opioid use. To avoid seizure. Repeated CT scan did not show evidence of any subdural hematoma. 2. Right lower extremity cellulitis with venous ulcerations bilaterally associated with SIRS.. Continue IV antibiotic in the form of vancomycin, continue Aquacel silver, continue rocky wraps, elevate legs follow-up with the patient. Patient will be switched to Bactrim double strength tomorrow morning for the next 7 days. 3. Left-sided pleural effusion with chronic diastolic heart failure. Metoprolol 50 mg orally twice every day, continue frusemide 40 mg once every day, monitor the patient's symptoms very closely. 4. Hypertension and hypertensive cardiovascular disease. Continue patient on metoprolol 50 mg orally twice every day, monitor the patient blood pressure very closely. 5. Hyperlipidemia. Continue atorvastatin 40 mg daily. Keep LDL 55-70. 6. Vascular dementia. Appears to be stable at this time. 7. History of chronic alcohol use and dependence. patient has quit 8. 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 Continue patient on Percocet 10/325 mg 1 tablet orally every 4 hours as needed [id number], continue baclofen 10 mg orally 3 times every day, continue pregabalin 150 mg orally twice every day. 9. Bilateral lower extremity neuropathy continue patient on Lyrica 150 mg orally twice every day. 10. DVT prophylaxis. Continue Lovenox 40 mg subcutaneously every 24 hours. 11. GI prophylaxis. Continue Protonix 40 mg orally once every day and famotidine 20 mg orally once every day. 12. Physical therapy evaluation for generalized weakness and bilateral lower extremity weakness. 13. set up worker consultation for discharge planning. Tomorrow morning. Objective - Vital Signs Vital signs: Vital Signs Temp 97.7 F 09/30/24 07:42 Pulse 58 L 09/30/24 07:42 Resp 18 09/30/24 07:42 BP 147/75 09/30/24 07:42 Pulse Ox 98 09/30/24 07:42 FiO2 Intake & Output 09/29/24 09/30/24 09/30/24 18:59 06:59 18:59 Output Total 500 500 Balance -500 -500 Output: Urine 500 500 Other: Voiding Method Urinal Urinal Urinal # Voids 4 4 # Bowel Movements 1 - Labs CBC & Chem 7: 09/30/24 03:11 09/30/24 03:11 Labs: Abnormal Lab Results - Last 24 Hours (Table) 09/30/24 09/30/24 Range/Units 03:11 03:11 RBC 3.34 L (4.40-5.60) X 10*6/uL Hgb 9.3 L (13.0-17.0) g/dL Hct 30.0 L (39.6-50.0) % MCHC 31.0 L (32.0-37.0) g/dL Eosinophils # 0.91 H (0.04-0.35) X 10*3/uL Sodium 135 L (137-145) mmol/L
[2024-10-01 04:39] LABS: ALT 13 U/L (4-49); AST 24 U/L (17-59); African American GFR (CKD) >90 (>60 ml/min/1.73 sqM); Albumin 3.5 g/dL (3.5-5.0); Albumin/Globulin Ratio 1.2; Alkaline Phosphatase 71 U/L (38-126); Anion Gap 9 mmol/L; Blood Urea Nitrogen 20 mg/dL (9-20); Calcium 8.7 mg/dL (8.4-10.2); Carbon Dioxide 26 mmol/L (22-30); Chloride 101 mmol/L (98-107); Globulin 2.9 g/dL; Glucose 97 mg/dL (74-99); Non-African American GFR(CKD) 89 (>60 ml/min/1.73 sqM); Potassium 4.2 mmol/L (3.5-5.1); Sodium 136 mmol/L (137-145); Total Bilirubin 0.3 mg/dL (0.2-1.3); Total Protein 6.4 g/dL (6.3-8.2)
[2024-10-01 04:56] VITALS: RESP 17
[2024-10-01 07:25] LABS: Basophils % (A) 1 %; Eosinophils # (A) 0.6 k/uL (0-0.7); Eosinophils % (A) 7 %; HCT 32.1 % (39.0-53.0); HGB 10.2 gm/dL (13.0-17.5); Hypochromasia Moderate; Lymphocytes # (A) 2.2 k/uL (1.0-4.8); Lymphocytes % (A) 29 %; MCH 28.3 pg (25.0-35.0); MCHC 31.8 g/dL (31.0-37.0); MCV 89.1 fL (80.0-100.0); Mean Platelet Volume 8.1; Monocytes # (A) 0.9 k/uL (0-1.0); Monocytes % (A) 11 %; Neutrophils # (A) 3.8 k/uL (1.3-7.7); Neutrophils % (A) 50 %; Platelet Count 286 k/uL (150-450); RBC 3.61 m/uL (4.30-5.90); RDW 14.3 % (11.5-15.5); WBC 7.7 k/uL (3.8-10.6)
[2024-10-01 07:30] VITALS: BP 164/74; PULSE 52; TEMP 98
--- NOTE | 2024-10-01 10:38 | P.DS ---
Providers Date of admission: 09/23/24 21:12 Expected date of discharge: 10/01/24 Attending physician: Johnny Lane Consults: 09/23/24 21:12 Consult Physician Urgent Consulting Provider: Garrick Sales Consult Reason/Comments: Altered mental status Do you want consulting provider notified?: Yes 09/25/24 13:57 Consult Physician Routine Consulting Provider: Mayelin Fischer Consult Reason/Comments: ams, family suspects intentional overdose Do you want consulting provider notified?: Yes 09/25/24 15:30 Consult Physician Routine Consulting Provider: Matteo Medina Consult Reason/Comments: cellulitis RLE Do you want consulting provider notified?: Yes Primary care physician: Johnny Lane Hospital Course: HISTORY OF PRESENT ILLNESS: This is a 74-year-old male one of my patient with a previous medical history significant for hypertension and hypertensive cardiovascular disease, hyperlipidemia, obesity with obstructive sleep apnea, history of chronic alcohol use and dependence with the peripheral neuropathy, significant spondylosis of the lumbar spine with spinal stenosis and significant chronic low back pain, patient was recently hospitalized at [facility] about a month ago for MRSA cellulitis of the left lower extremity along with multiple wounds secondary to him being picking on his skin he ended up getting discharged to [facility] in [facility] and he was just recently discharged from the facility back to his assisted living facility [facility], apparently the patient was brought into the emergency department at [facility] after he was found on the floor with altered level of consciousness, he was seen in the emergency department, by the emergency room physician Dr. Islas, underwent CT scan of the brain did not show evidence of acute abnormalities, he did have a lot of moving artifact, patient did receive Narcan in the emergency department, with minimal response, he ended up getting admitted to the intensive care unit as a stepdown overflow, patient appears to be back to his baseline at this time. 09/25: Patient is having increased redness to the right lower extremity with increased weeping from the venous ulcer mostly of the right lower extremity more than the left lower extremity, in view of this and because of the prior history of MRSA I will start the patient on vancomycin along with Aquacel silver with Kerlix wrap for both lower extremities and keep the leg elevated at this time, infectious ease consultation will be obtained as well, patient is asking to schedule his pain medication as he is not tremendous amount of pain at this point in time, we will schedule his Percocet to every 4 hours [id number], monitor the patient for sedation, and hold for sedation as well. Patient will be seen in consultation by physical therapy as well as by social secretary for discharge planning. 09/26: Patient is laying down in bed in no apparent distress at this time, he continued to have significant mount of pain in the left knee, he denies any chest pain at this time, shortness of breath, he did have a bowel movement today he denies any abdominal pain, nausea vomiting or diarrhea he has no dysphagia at this time, he was seen yesterday by infectious disease, who recommended for the patient to continue vancomycin for now along with local care for the right lower extremity and the left lower extremity with Rocky wrap keep the leg elevated, patient will be seen in consultation by physical therapy for discharge planning as well as social secretary. Continue current treatment as ordered. 09/27: Patient is laying down in bed in no apparent distress, he denies any chest pain, shortness of breath, he has no abdominal pain, nausea vomiting or diarrhea, he has significant improvement of the right lower extremity cellulitis, he continues to have venous ulceration that has been treated with Aquacel silver, with Rocky wrap and leg elevation, patient was seen and evaluated by physical therapy as well as social secretary, we will plan to send the patient to subacute rehabilitation at the patient will need some help at this point in time. 09/28: Patient sitting up in the chair is complaining of significant pain in the neck area, he is not able to ambulate because he is not able to keep his neck up, patient will be started on baclofen, 10 mg orally 3 times every day, continue current pain management, patient will need to follow-up with the spine surgeon as an outpatient, he was seen as an outpatient by Dr. Reyes, however he was discharged from the practice for what ever reason, patient stated that he is jose be starting with advanced orthopedics for further evaluation, physical therapy evaluation, continue current treatment plan, will follow-up with the patient very closely. 09/29: Patient sitting up in the chair he is complaining of increased pain in the neck area, down the shoulder, he has been getting baclofen 10 mg orally 3 times every day along with Percocet every 4 hours [id number], patient denies any chest pain, he does have occasional cough, minimal phlegm production, he has no abdominal pain, he did not have bowel movement today, he appears to be more comfortable at this point in time, we will continue to follow-up with the patient very closely continue vancomycin, continue local care for the lower extremities, will plan for the patient to go for subacute rehabilitation in the next few days. 09/30: Patient is sitting up in the recliner chair no apparent distress, he denies any chest pain, shortness of breath, his neck feels better than yesterday, he continues to be on baclofen 10 mg orally 3 times every day as well as Percocet, he has no abdominal pain, he did have a bowel movement yesterday, he has no hematemesis or hematochezia, he continued to have some venous ulcer mostly in the right lower extremity more than the left lower extremity that is being treated with Aquacel silver, we will continue with vancomycin for another 24 hours, then the patient can be switched to oral Bactrim double strength 1 tablet orally twice every day for the next 7 days. cooler room worker for discharge planning. 10/01: Patient sitting up in recliner chair no apparent distress, patient has not decided whether or not he wants to go to subacute rehabilitation, he wanted to go back home we will discuss with the registered nurse hh case manager if the patient is going to a private room or a shared room, because if that is the case he wants to go home at [facility], I awaiting the final decision from the patient and the social secretary or the patient is coming so he can be discharged home today on Bactrim double strength 1 tablet orally twice every day for 7 days. Discharge diagnoses: 1. Altered level of consciousness likely related to metabolic encephalopathy due to pain treatment. 2. Right lower extremity cellulitis with venous ulcerations bilaterally associated with SIRS due to MRSA. 3. Left-sided pleural effusion with chronic diastolic heart failure. 4. Hypertension and hypertensive cardiovascular disease. 5. Hyperlipidemia. 6. Vascular dementia. 7. History of chronic alcohol use and dependence. 8. 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 9. Bilateral lower extremity neuropathy Patient Condition at Discharge: Fair Plan - Discharge Summary Discharge Rx Participant: Yes New Discharge Prescriptions: No Action Furosemide [Lasix] 40 mg PO DAILY Atorvastatin [Lipitor] 40 mg PO DAILY tab Folic Acid 0.8 mg PO DAILY Lactulose [Cephulac] 20 gm PO BID #1800 ml Potassium Chloride ER [K-Dur 20] 20 meq PO DAILY #90 tab Triamcinolone 0.1% Cream [Kenalog 0.1% Cream] 1 applic TOPICAL BID #60 each amLODIPine [Norvasc] 10 mg PO DAILY #90 tab Montelukast [Singulair] 10 mg PO HS #90 tab Metoprolol Succinate (ER) [Toprol XL] 50 mg PO DAILY #90 tab Famotidine [Pepcid] 40 mg PO DAILY Baclofen 10 mg PO BID PRN PRN Reason: Muscle Pain Docusate [Colace] 100 mg PO BID cap Magnesium Hydroxide [Milk of Magnesia] 2,400 mg PO BID PRN ml PRN Reason: Constipation Ibuprofen [Motrin] 600 mg PO TID PRN tab PRN Reason: Moderate Pain (Scale 4 To 6) Cetirizine HCl 10 mg PO DAILY hydrOXYzine HCL [Atarax] 25 mg PO TID PRN #90 tab PRN Reason: Itching polyethylene glycoL 3350 [Miralax] 17 gm PO DAILY #30 packet Losartan Potassium [Cozaar] 100 mg PO DAILY Pregabalin [Lyrica] 150 mg PO BID #6 cap oxyCODONE-APAP 10-325MG [Percocet 10-325 mg] 1 tab PO Q4H PRN #18 tab PRN Reason: Pain Ipratropium-Albuterol Nebulize [Duoneb 0.5 mg-3 mg/3 ml Soln] 3 ml INHALATION RT-Q6H PRN PRN Reason: Shortness Of Breath Or Wheezing Torsemide [Demadex] 20 mg PO DAILY Discharge Medication List Furosemide [Lasix] 40 mg PO DAILY 04/24/23 [History] Atorvastatin [Lipitor] 40 mg PO DAILY tab 01/12/24 [Rx] Cetirizine HCl 10 mg PO DAILY 05/21/24 [History] Folic Acid 0.8 mg PO DAILY 05/21/24 [History] Lactulose [Cephulac] 20 gm PO BID #1800 ml 05/31/24 [Rx] Metoprolol Succinate (ER) [Toprol XL] 50 mg PO DAILY #90 tab 05/31/24 [Rx] Montelukast [Singulair] 10 mg PO HS #90 tab 05/31/24 [Rx] Potassium Chloride ER [K-Dur 20] 20 meq PO DAILY #90 tab 05/31/24 [Rx] Triamcinolone 0.1% Cream [Kenalog 0.1% Cream] 1 applic TOPICAL BID #60 each 05/31/24 [Rx] amLODIPine [Norvasc] 10 mg PO DAILY #90 tab 05/31/24 [Rx] hydrOXYzine HCL [Atarax] 25 mg PO TID PRN #90 tab 06/03/24 [Rx] polyethylene glycoL 3350 [Miralax] 17 gm PO DAILY #30 packet 06/03/24 [Rx] Baclofen 10 mg PO BID PRN 08/17/24 [History] Famotidine [Pepcid] 40 mg PO DAILY 08/17/24 [History] Losartan Potassium [Cozaar] 100 mg PO DAILY 08/17/24 [History] Docusate [Colace] 100 mg PO BID cap 08/22/24 [Rx] Ibuprofen [Motrin] 600 mg PO TID PRN tab 08/22/24 [Rx] Magnesium Hydroxide [Milk of Magnesia] 2,400 mg PO BID PRN ml 08/22/24 [Rx] Pregabalin [Lyrica] 150 mg PO BID #6 cap 08/22/24 [Rx] oxyCODONE-APAP 10-325MG [Percocet 10-325 mg] 1 tab PO Q4H PRN #18 tab 08/22/24 [Rx] Ipratropium-Albuterol Nebulize [Duoneb 0.5 mg-3 mg/3 ml Soln] 3 ml INHALATION RT-Q6H PRN 09/23/24 [History] Torsemide [Demadex] 20 mg PO DAILY 09/23/24 [History] Follow up Appointment(s)/Referral(s): Johnny Lane MD [Primary Care Provider] - 1-2 days
[2024-10-01 11:00] VITALS: BMI 40.2
[2024-10-01 11:17] LABS: Poikilocytosis (M) Present
[2024-10-01] MEDS ORDERED: ACETAMINOPHEN TAB 325 MG TAB PO PRN (12:09)
[2024-10-01 13:14] LABS: Influenza A Not Detected (Not Detectd); Influenza B Not Detected (Not Detectd); RSV Not Detected (Not Detectd)
[2024-10-01] MEDS ORDERED: VANCOMYCIN TROUGH DUE 1 EACH MISC MISCELLANE ONE (15:00)
--- NOTE | 2024-10-01 15:08 | P.PN ---
Subjective Progress Note Date: 10/01/24 Principal diagnosis: Reason for follow-up with right lower extremity cellulitis and ulcer Patient is a 74-year-old male with a past medical history significant for hypertension osteoarthritis chronic back pain chronic swelling to bilateral extremity did have venous stasis ulcers and history of cellulitis secondary to MRSA brought to the hospital of the patient was found to be on the floor noticed to have increasing redness to the right leg concerning for cellulitis prompting this consultation. On today's evaluation that is 10/01/2024, Patient is afebrile this morning patient has been complaining of some congestion denies having any chest pain shortness of breath or cough, the patient is currently on room air, patient denies any abdominal pain no diarrhea no nausea no vomiting or any worsening pain to lower extremity. Patient white count 7.7, creatinine 0.81 Objective - Vital Signs Vital signs: Vital Signs Temp 98.0 F 10/01/24 07:30 Pulse 52 L 10/01/24 08:00 Resp 17 10/01/24 08:00 BP 164/74 10/01/24 07:30 Pulse Ox 95 10/01/24 07:30 FiO2 Intake & Output 09/30/24 10/01/24 10/01/24 18:59 06:59 18:59 Intake Total 3342 Output Total 1900 950 Balance -1900 2392 Weight 131 kg Intake: Oral 3342 Output: Urine 1900 950 Other: Voiding Method Urinal Urinal Urinal # Voids 4 # Bowel Movements 1 1 - Exam GENERAL DESCRIPTION: An elderly male up in the chair In no distress RESPIRATORY SYSTEM: Unlabored breathing , decreased breath sounds at bases HEART: S1 S2 regular rate and rhythm , ABDOMEN: Soft , no tenderness EXTREMITIES: Bilateral lower extremity swelling and redness has decreased no drainage - Labs CBC & Chem 7: 10/01/24 03:27 10/01/24 03:27 Labs: Abnormal Lab Results - Last 24 Hours (Table) 10/01/24 10/01/24 Range/Units 03:27 03:27 RBC 3.61 L (4.30-5.90) m/uL Hgb 10.2 L (13.0-17.5) gm/dL Hct 32.1 L (39.0-53.0) % Sodium 136 L (137-145) mmol/L Assessment and Plan (1) Cellulitis of right leg Current Visit: No Status: Acute Code(s): L03.115 - CELLULITIS OF RIGHT LOWER LIMB SNOMED Code(s): 60508876857020424 (2) Venous ulcer of right leg Current Visit: Yes Status: Acute Code(s): I83.019 - VARICOSE VEINS OF RIGHT LOWER EXTREMITY W ULCER OF UNSP SITE; L97.919 - NON-PRS CHRONIC ULC UNSP PRT OF R LOW LEG W UNSP SEVERITY SNOMED Code(s): 3295686026 Plan: 1patient presented hospital after he was found on the floor mental status changes also noted to have increasing swelling and redness to the right lower extremity which is warm to touch did have some superficial ulceration concerning for cellulitis in this patient who did have a previous history of MRSA infection 2patient is afebrile and the patient white count has been normal Vanco levels therapeutic, 3-patient has shown improvement as well as lower extremity wound and cellulitis advised to continue local wound care with the Aquacel dressing and Rocky wrap and a short course of oral Bactrim DS on discharge, 4-patient was complaining of some URI symptoms he did have nasopharyngeal swab for COVID RSV and influenza came back negative Dictation was produced using [employer] dictation software. please excuse any grammatical, word or spelling errors. Time with Patient: Less than 30
[2024-10-01] MEDS: LOSARTAN 50 MG TAB PO SCH (16:02)
== END 2024-10-01 16:11 | disposition home health service (06) | DRG 917 ==
LOC: EC 17:41 → 2SICU 21:12 → 4SSUR 09-27 18:07
PROVIDERS: ADMIT Internal Medicine; ATTEND Internal Medicine
DX: T40.2X1A Poisoning by other opioids, accidental (unintentional), initial encounter (principal); G92.8 Other toxic encephalopathy; G93.1 Anoxic brain damage, not elsewhere classified; L03.115 Cellulitis of right lower limb; I83.019 Varicose veins of right lower extremity with ulcer of unspecified site; I11.0 Hypertensive heart disease with heart failure; F11.23 Opioid dependence with withdrawal; F10.11 Alcohol abuse, in remission; F01.50 Vascular dementia, unspecified severity, without behavioral disturbance, psychotic disturbance, mood disturbance, and anxiety; E03.9 Hypothyroidism, unspecified; E66.9 Obesity, unspecified; G25.81 Restless legs syndrome; R65.10 Systemic inflammatory response syndrome (SIRS) of non-infectious origin without acute organ dysfunction; I50.32 Chronic diastolic (congestive) heart failure; L97.919 Non-pressure chronic ulcer of unspecified part of right lower leg with unspecified severity; Z16.29 Resistance to other single specified antibiotic; G62.9 Polyneuropathy, unspecified; M54.50 Low back pain, unspecified; E78.5 Hyperlipidemia, unspecified; G89.4 Chronic pain syndrome; M47.812 Spondylosis without myelopathy or radiculopathy, cervical region; M48.061 Spinal stenosis, lumbar region without neurogenic claudication; Z79.890 Hormone replacement therapy; G57.93 Unspecified mononeuropathy of bilateral lower limbs; I87.8 Other specified disorders of veins; M47.896 Other spondylosis, lumbar region; N40.0 Benign prostatic hyperplasia without lower urinary tract symptoms; Z79.899 Other long term (current) drug therapy; Z82.49 Family history of ischemic heart disease and other diseases of the circulatory system; B95.62 Methicillin resistant Staphylococcus aureus infection as the cause of diseases classified elsewhere; Z71.41 Alcohol abuse counseling and surveillance of alcoholic; Z71.51 Drug abuse counseling and surveillance of drug abuser
CPT/HCPCS: 36415; 70450; 71046; 72125; 80053; 80202; 80306; 80320; 82565; 82803; 83735; 84484; 85025; 85610; 85730; 87636; 93005; 96361; 96374; 96375; 99285

== ENCOUNTER 2024-11-05 09:12 | Observation (INO) | payer MEDICARE ==
[2024-11-05] MEDS: oxyCODONE-APAP 10-325MG 1 EACH TAB PO ONE (10:06)
[2024-11-05] MEDS: SODIUM CHLORIDE 0.9% 500 ML 500 ML IV STA (10:07)
[2024-11-05 10:20] LABS: Anisocytosis Slight; HCT 39.4 % (39.0-53.0); MCH 26.4 pg (25.0-35.0); MCHC 30.6 g/dL (31.0-37.0); MCV 86.4 fL (80.0-100.0); Mean Platelet Volume 11.7; RBC 4.56 m/uL (4.30-5.90); RDW 17.1 % (11.5-15.5); WBC 9.3 k/uL (3.8-10.6)
[2024-11-05 10:33] LABS: ALT 14 U/L (4-49); AST 35 U/L (17-59); African American GFR (CKD) >90 (>60 ml/min/1.73 sqM); Albumin 3.6 g/dL (3.5-5.0); Alkaline Phosphatase 67 U/L (38-126); Anion Gap 9 mmol/L; Blood Urea Nitrogen 14 mg/dL (9-20); Calcium 8.8 mg/dL (8.4-10.2); Carbon Dioxide 26 mmol/L (22-30); Chloride 103 mmol/L (98-107); Glucose 94 mg/dL (74-99); Magnesium 2.2 mg/dL (1.6-2.3); Non-African American GFR(CKD) >90 (>60 ml/min/1.73 sqM); Phosphorus 4.1 mg/dL (2.5-4.5); Potassium 3.9 mmol/L (3.5-5.1); Sodium 138 mmol/L (137-145); Total Bilirubin 0.9 mg/dL (0.2-1.3); Total Protein 6.3 g/dL (6.3-8.2)
[2024-11-05 10:41] LABS: NT-Pro-B-Type Natriuretic Pept 216 pg/mL; Partial Thromboplastin Time 22.9 sec (22.0-30.0); Prothrombin Time 11.4 sec (10.0-12.5)
[2024-11-05 10:45] LABS: Appearance,Urine Clear (Clear); Bilirubin,Urine Negative (Negative); Blood,Urine Negative (Negative); Color,Urine Yellow; Glucose,Urine (UA) Negative (Negative); Ketones,Urine 1+ (Negative); Leukocyte Esterase,Urine Negative (Negative); Nitrite,Urine Negative (Negative); PH, Urine 5.5 (5.0-8.0); Protein,Urine Trace (Negative); Specific Gravity,Urine 1.025 (1.001-1.035); Urobilinogen,Urine <2.0 mg/dL (<2.0)
--- NOTE | 2024-11-05 10:57 | XR ---
EXAMINATION TYPE: XR chest 2V DATE OF EXAM: 11/05/2024 10:44 AM COMPARISON: 09/23/2024 CLINICAL INDICATION: Male, 74 years old with history of Weakness, TECHNIQUE: XR chest 2V view(s) obtained. FINDINGS: The heart size is normal. The pulmonary vasculature is normal. The lungs are clear. IMPRESSION: 1. No acute pulmonary process. [facility], , 11/05/2024 10:54 AM
[2024-11-05 11:15] LABS: Influenza A Not Detected (Not Detectd); Influenza B Not Detected (Not Detectd); RSV Not Detected (Not Detectd)
--- NOTE | 2024-11-05 11:21 | ED ---
General Adult HPI - General Chief complaint: Recheck/Abnormal Lab/Rx Stated complaint: failure to thrive Time Seen by Provider: 11/05/24 09:21 Source: patient, EMS, RN notes reviewed Mode of arrival: EMS Limitations: no limitations - History of Present Illness Initial comments: 74-year-old male presents emergency department via EMS from [facility] for evaluation of failure to thrive. Patient states he has been essentially bedridden for days EMS reports that his living space was not well. Patient states he does have a wheelchair and walker at home but states he is unable to get out of bed at this point he does have multiple sores of his lower extremity he states he just feels extremely weak and year and possible move his lower extremities. Patient denies any chest pain shortness of breath no reports of fever patient reports he has been soiling on himself. - Related Data Home Medications Medication Instructions Recorded Confirmed oxyCODONE-APAP 10-325MG [Percocet 1 tab PO Q4H 11/05/24 11/05/24 10-325 mg] Allergies Allergy/AdvReac Type Severity Reaction Status Date / Time No Known Allergies Allergy Verified 11/05/24 12:03 Review of Systems ROS Statement: Those systems with pertinent positive or pertinent negative responses have been documented in the HPI. ROS Other: All systems not noted in ROS Statement are negative. Past Medical History Past Medical History: Hypertension, Osteoarthritis (OA) Additional Past Medical History / Comment(s): ETOH abuse, chronic back pain, BLE neuropathy, lymphedema, multiple falls, cellulitis History of Any Multi-Drug Resistant Organisms: MRSA Date of last positivie culture/infection: 04/23/24 MDRO Source:: RT LEG Past Surgical History: Back Surgery, Orthopedic Surgery, Tonsillectomy Additional Past Surgical History / Comment(s): 3 back laminectomies, hand surgery s/p trauma to reattatch tendons Past Anesthesia/Blood Transfusion Reactions: No Reported Reaction Past Psychological History: No Psychological Hx Reported Smoking Status: Never smoker, Unknown if ever smoked Past Alcohol Use History: Daily, Heavy Past Drug Use History: None Reported - Past Family History Father Family Medical History: Hypertension Mother Family Medical History: Cancer Additional Family Medical History / Comment(s): Lung cancer Brother(s) Family Medical History: No Reported History Sister(s) Family Medical History: Hypertension Daughter(s) Family Medical History: No Reported History General Exam Limitations: no limitations General appearance: alert, in no apparent distress Head exam: Present: atraumatic, normocephalic, normal inspection Eye exam: Present: normal appearance, PERRL, EOMI. Absent: scleral icterus, con junctival injection, periorbital swelling ENT exam: Present: normal exam, mucous membranes moist Neck exam: Present: normal inspection, full ROM. Absent: tenderness, meningismus, lymphadenopathy Respiratory exam: Present: normal lung sounds bilaterally. Absent: respiratory distress, wheezes, rales, rhonchi, stridor Cardiovascular Exam: Present: regular rate, normal rhythm, normal heart sounds. Absent: systolic murmur, diastolic murmur, rubs, gallop, clicks GI/Abdominal exam: Present: soft, normal bowel sounds. Absent: distended, tenderness, guarding, rebound, rigid Extremities exam: Present: other (Lower extremities ulcerations, sores noted pedal pulses are palpable there is moderate swelling erythema strength is 2 out of 5) Neurological exam: Present: alert, oriented X3, CN II-XII intact Course Vital Signs 11/05/24 11/05/24 11/05/24 09:15 10:00 11:00 Temperature 98.2 F Pulse Rate 78 75 73 Respiratory 18 20 18 Rate Blood Pressure 126/80 141/77 133/101 O2 Sat by Pulse 98 98 97 Oximetry EKG Findings - EKG Comments: EKG Findings:: EKG performed at 9: 30 sinus rhythm rate of 76 MD 170 QRS 90 QT/QTc 385/415 - EKG Results: EKG: interpreted by JAVIER Medical Decision Making - Medical Decision Making Was pt. sent in by a medical professional or institution (, PA, ANNUAL GREENHOUSE MANAGER, urgent care, hospital, or penitentiary...) When possible be specific @ -No Did you speak to anyone other than the patient for history (EMS, parent, family, police, friend...)? What history was obtained from this source @ -No Did you review nursing and triage notes (agree or disagree)? Why? @ -I reviewed and agree with nursing and triage notes Were old charts reviewed (outside hosp., previous admission, EMS record, old EKG, old radiological studies, urgent care reports/EKG's, penitentiary records)? Report findings @ -No old charts were reviewed Differential Diagnosis (chest pain, altered mental status, abdominal pain women, abdominal pain men, vaginal bleeding, weakness, fever, dyspnea, syncope, hea dache, dizziness, GI bleed, back pain, seizure, CVA, palpatations, mental health, musculoskeletal)? @ -Differential Weakness: Hypoglycemia, shock, sepsis, hyponatremia, anemia, infection, DC, ETOH, adverse medicine reaction, overdose, stroke, this is not meant to be an all-inclusive list. EKG interpreted by me (3pts min.). @ -As above X-rays interpreted by me (1pt min.). @ -Chest x-ray shows no acute cardiopulmonary process. CT interpreted by me (1pt min.). @ -None done U/S interpreted by me (1pt. min.). @ -None done What testing was considered but not performed or refused? (CT, X-rays, U/S, labs)? Why? @ -None What meds were considered but not given or refused? Why? @ -None Did you discuss the management of the patient with other professionals (professionals i.e. , PA, ANNUAL GREENHOUSE MANAGER, lab, RT, psych nurse, social media content specialist, music publisher, teacher, intelligence officer basic, hospice case manager)? Give summary @ -Dr. Lane for admission recommends physical therapy, social work, infectious disease patient has a history of MRSA Was smoking cessation discussed for >3mins.? @ -No Was critical care preformed (if so, how long)? @ -No Were there social determinants of health that impacted care today? How? (Homelessness, low income, unemployed, alcoholism, drug addiction, transportation, low edu. Level, literacy, decrease access to med. care, nursing home, rehab)? @ -No Was there de-escalation of care discussed even if they declined (Discuss DNR or withdrawal of care, Hospice)? DNR status @ -No What co-morbidities impacted this encounter? (DM, HTN, Smoking, COPD, CAD, Cancer, CVA, ARF, Chemo, Hep., AIDS, mental health diagnosis, sleep apnea, morbid obesity)? @ -None Was patient admitted / discharged? Hospital course, mention meds given and route, prescriptions, significant lab abnormalities, going to OR and other pertinent info. @ -Admitted patient presented for failure to thrive difficulty ambulating. Patient's laboratory studies reveal any significant findings patient does have some ulcerations and cellulitic changes of the lower extremity was started on vancomycin history of MRSA consult to social work physical therapy and ID. Undiagnosed new problem with uncertain prognosis? @ -No Drug Therapy requiring intensive monitoring for toxicity (Heparin, Nitro, Insulin, Cardizem)? @ -No Were any procedures done? @ -No Diagnosis/symptom? @ -Venous stasis ulcers, cellulitis, failure to thrive, difficulty ambulating Acute, or Chronic, or Acute on Chronic? @ -Acute Uncomplicated (without systemic symptoms) or Complicated (systemic symptoms)? @ -Complicated Side effects of treatment? @ -No Exacerbation, Progression, or Severe Exacerbation? @ -No Poses a threat to life or bodily function? How? (Chest pain, USA, DC, pneumonia, PE, COPD, DKA, ARF, appy, cholecystitis, CVA, Diverticulitis, Homicidal, Suicidal, threat to staff... and all critical care pts) @ -No - Lab Data Result diagrams: 11/05/24 10:01 11/05/24 10:01 Lab Results 11/05/24 11/05/24 11/05/24 Range/Units 10:01 10:01 10:01 WBC 9.3 (3.8-10.6) k/uL RBC 4.56 (4.30-5.90) m/uL Hgb 12.0 L (13.0-17.5) gm/dL Hct 39.4 (39.0-53.0) % MCV 86.4 (80.0-100.0) fL MCH 26.4 (25.0-35.0) pg MCHC 30.6 L (31.0-37.0) g/dL RDW 17.1 H (11.5-15.5) % Plt Count (150-450) k/uL MPV 11.7 Neutrophils % (Manual) 77 % Lymphocytes % (Manual) 11 % Monocytes % (Manual) 9 % Eosinophils % (Manual) 3 % Neutrophils # (Manual) 7.16 (1.3-7.7) k/uL Lymphocytes # (Manual) 1.02 (1.0-4.8) k/uL Monocytes # (Manual) 0.84 (0-1.0) k/uL Eosinophils # (Manual) 0.28 (0-0.7) k/uL Nucleated RBCs 0 (0-0) /100 WBC Manual Slide Review Performed Poikilocytosis (manual Present Anisocytosis Slight Anisocytosis (manual) Present PT 11.4 (10.0-12.5) sec INR 1.0 (<1.2) APTT 22.9 (22.0-30.0) sec Sodium 138 (137-145) mmol/L Potassium 3.9 (3.5-5.1) mmol/L Chloride 103 (98-107) mmol/L Carbon Dioxide 26 (22-30) mmol/L Anion Gap 9 mmol/L BUN 14 (9-20) mg/dL Creatinine 0.66 (0.66-1.25) mg/dL Est GFR (CKD-EPI)AfAm >90 (>60 ml/min/1.73 sqM) Est GFR (CKD-EPI)NonAf >90 (>60 ml/min/1.73 sqM) Glucose 94 (74-99) mg/dL Plasma Lactic Acid Gerardo (0.7-2.0) mmol/L Calcium 8.8 (8.4-10.2) mg/dL Phosphorus 4.1 (2.5-4.5) mg/dL Magnesium 2.2 (1.6-2.3) mg/dL Total Bilirubin 0.9 (0.2-1.3) mg/dL AST 35 (17-59) U/L ALT 14 (4-49) U/L Alkaline Phosphatase 67 (38-126) U/L Troponin I (0.000-0.034) ng/mL NT-Pro-B Natriuret Pep 216 pg/mL Total Protein 6.3 (6.3-8.2) g/dL Albumin 3.6 (3.5-5.0) g/dL Urine Color Urine Appearance (Clear) Urine pH (5.0-8.0) Ur Specific [place] (1.001-1.035) Urine Protein (Negative) Urine Glucose (UA) (Negative) Urine Ketones (Negative) Urine Blood (Negative) Urine Nitrite (Negative) Urine Bilirubin (Negative) Urine Urobilinogen (<2.0) mg/dL Ur Leukocyte Esterase (Negative) Influenza Type A (PCR) (Not Detectd) Influenza Type B (PCR) (Not Detectd) RSV (PCR) (Not Detectd) SARS-CoV-2 (PCR) (Not Detectd) 11/05/24 11/05/24 11/05/24 Range/Units 10:01 10:01 10:01 WBC (3.8-10.6) k/uL RBC (4.30-5.90) m/uL Hgb (13.0-17.5) gm/dL Hct (39.0-53.0) % MCV (80.0-100.0) fL MCH (25.0-35.0) pg MCHC (31.0-37.0) g/dL RDW (11.5-15.5) % Plt Count (150-450) k/uL MPV Neutrophils % (Manual) % Lymphocytes % (Manual) % Monocytes % (Manual) % Eosinophils % (Manual) % Neutrophils # (Manual) (1.3-7.7) k/uL Lymphocytes # (Manual) (1.0-4.8) k/uL Monocytes # (Manual) (0-1.0) k/uL Eosinophils # (Manual) (0-0.7) k/uL Nucleated RBCs (0-0) /100 WBC Manual Slide Review Poikilocytosis (manual Anisocytosis Anisocytosis (manual) PT (10.0-12.5) sec INR (<1.2) APTT (22.0-30.0) sec Sodium (137-145) mmol/L Potassium (3.5-5.1) mmol/L Chloride (98-107) mmol/L Carbon Dioxide (22-30) mmol/L Anion Gap mmol/L BUN (9-20) mg/dL Creatinine (0.66-1.25) mg/dL Est GFR (CKD-EPI)AfAm (>60 ml/min/1.73 sqM) Est GFR (CKD-EPI)NonAf (>60 ml/min/1.73 sqM) Glucose (74-99) mg/dL Plasma Lactic Acid Gerardo 1.2 (0.7-2.0) mmol/L Calcium (8.4-10.2) mg/dL Phosphorus (2.5-4.5) mg/dL Magnesium (1.6-2.3) mg/dL Total Bilirubin (0.2-1.3) mg/dL AST (17-59) U/L ALT (4-49) U/L Alkaline Phosphatase (38-126) U/L Troponin I <0.012 (0.000-0.034) ng/mL NT-Pro-B Natriuret Pep pg/mL Total Protein (6.3-8.2) g/dL Albumin (3.5-5.0) g/dL Urine Color Yellow Urine Appearance Clear (Clear) Urine pH 5.5 (5.0-8.0) Ur Specific [place] 1.025 (1.001-1.035) Urine Protein Trace H (Negative) Urine Glucose (UA) Negative (Negative) Urine Ketones 1+ H (Negative) Urine Blood Negative (Negative) Urine Nitrite Negative (Negative) Urine Bilirubin Negative (Negative) Urine Urobilinogen <2.0 (<2.0) mg/dL Ur Leukocyte Esterase Negative (Negative) Influenza Type A (PCR) (Not Detectd) Influenza Type B (PCR) (Not Detectd) RSV (PCR) (Not Detectd) SARS-CoV-2 (PCR) (Not Detectd) 11/05/24 Range/Units 10:36 WBC (3.8-10.6) k/uL RBC (4.30-5.90) m/uL Hgb (13.0-17.5) gm/dL Hct (39.0-53.0) % MCV (80.0-100.0) fL MCH (25.0-35.0) pg MCHC (31.0-37.0) g/dL RDW (11.5-15.5) % Plt Count (150-450) k/uL MPV Neutrophils % (Manual) % Lymphocytes % (Manual) % Monocytes % (Manual) % Eosinophils % (Manual) % Neutrophils # (Manual) (1.3-7.7) k/uL Lymphocytes # (Manual) (1.0-4.8) k/uL Monocytes # (Manual) (0-1.0) k/uL Eosinophils # (Manual) (0-0.7) k/uL Nucleated RBCs (0-0) /100 WBC Manual Slide Review Poikilocytosis (manual Anisocytosis Anisocytosis (manual) PT (10.0-12.5) sec INR (<1.2) APTT (22.0-30.0) sec Sodium (137-145) mmol/L Potassium (3.5-5.1) mmol/L Chloride (98-107) mmol/L Carbon Dioxide (22-30) mmol/L Anion Gap mmol/L BUN (9-20) mg/dL Creatinine (0.66-1.25) mg/dL Est GFR (CKD-EPI)AfAm (>60 ml/min/1.73 sqM) Est GFR (CKD-EPI)NonAf (>60 ml/min/1.73 sqM) Glucose (74-99) mg/dL Plasma Lactic Acid Gerardo (0.7-2.0) mmol/L Calcium (8.4-10.2) mg/dL Phosphorus (2.5-4.5) mg/dL Magnesium (1.6-2.3) mg/dL Total Bilirubin (0.2-1.3) mg/dL AST (17-59) U/L ALT (4-49) U/L Alkaline Phosphatase (38-126) U/L Troponin I (0.000-0.034) ng/mL NT-Pro-B Natriuret Pep pg/mL Total Protein (6.3-8.2) g/dL Albumin (3.5-5.0) g/dL Urine Color Urine Appearance (Clear) Urine pH (5.0-8.0) Ur Specific [place] (1.001-1.035) Urine Protein (Negative) Urine Glucose (UA) (Negative) Urine Ketones (Negative) Urine Blood (Negative) Urine Nitrite (Negative) Urine Bilirubin (Negative) Urine Urobilinogen (<2.0) mg/dL Ur Leukocyte Esterase (Negative) Influenza Type A (PCR) Not Detected (Not Detectd) Influenza Type B (PCR) Not Detected (Not Detectd) RSV (PCR) Not Detected (Not Detectd) SARS-CoV-2 (PCR) Not Detected (Not Detectd) Disposition Clinical Impression: Cellulitis of right leg, Venous stasis ulcer, Failure to thrive, Difficulty in walking Disposition: ADMITTED IP TO THIS HOSP Condition: Fair Referrals: Johnny Lane MD [Primary Care Provider] - 1-2 days Time of Disposition: 13:17
[2024-11-05 11:55] LABS: Anisocytosis (M) Present; Eosinophils # (M) 0.28 k/uL (0-0.7); Lymphocytes # (M) 1.02 k/uL (1.0-4.8); Monocytes # (M) 0.84 k/uL (0-1.0); Neutrophils # (M) 7.16 k/uL (1.3-7.7); Neutrophils % (M) 77 %; Nucleated Red Blood Cells 0 /100 WBC (0-0); Poikilocytosis (M) Present; Total Cells Counted 100
[2024-11-05] MEDS ORDERED: ONDANSETRON 4 MG/2 ML VIAL IVP PRN (13:09)
[2024-11-05] MEDS ORDERED: NALOXONE 0.4 MG/ML 1 ML VIAL IV PRN (13:09)
[2024-11-05] MEDS ORDERED: VANCOMYCIN IV PER PHARMACY 1 EACH MISC MISCELLANE PRN (13:11)
[2024-11-05] MEDS: VANCOMYCIN 2,250 MG in SODIUM CHLORIDE 0.9% 500 ML 500 ML IVPB ONE (13:47)
[2024-11-05] MEDS: oxyCODONE-APAP 10-325MG 1 EACH TAB PO SCH (15:17)
[2024-11-05] MEDS: SODIUM CHLORIDE 0.9% 1,000 ML IV SCH (21:32)
--- NOTE | 2024-11-05 22:10 | P.CONS ---
History of Present Illness - Reason for Consult Consult date: 11/05/24 Venous stasis ulcer, cellulitis Requesting physician: John Jauregui - Chief Complaint pain to the lower extremity x days - History of Present Illness Patient is a 74-year-old male with a past medical history of hypertension osteoarthritis bilateral lower extremity venous stasis ulcer more marked on the right leg and history of recurrent cellulitis patient has been brought into the hospital for evaluation of not feeling well patient mention he has been unable to get out of the bed has been complaining of pain to the lower back as well as bilateral lower extremity patient describing the pain to be sharp moderate to severe intensity denies any focal weakness in the leg for any bowel or bladder problem patient did have ulcer of the right lower extremity has been complaining of more pain to the area but denies having any foul-smelling drainage or any significant redness patient on presentation to hospital was afebrile and no fever have been recorded subsequently patient was not tachycardic hypotensive or hypoxic no need for supplemental oxygen white count is 9.3 creatinine 0.66 electrolyte has been normal liver enzymes are normal urine has been negative influenza RSV COVID testing has been negative patient did have a chest x-ray no acute pulmonary process patient has been admitted to the hospital infectious was consulted concerning for pneumonia stress ulcer and possible cellulitis Review of Systems Positive point and negatives has been mentioned in the HPI, complete review of systems was performed and all other systems are negative Past Medical History Past Medical History: Hypertension, Osteoarthritis (OA) Additional Past Medical History / Comment(s): ETOH abuse, chronic back pain, BLE neuropathy, lymphedema, multiple falls, cellulitis History of Any Multi-Drug Resistant Organisms: MRSA Year Discovered:: 04/23/24 MDRO Source:: RT LEG Past Surgical History: Back Surgery, Orthopedic Surgery, Tonsillectomy Additional Past Surgical History / Comment(s): 3 back laminectomies, hand surgery s/p trauma to reattatch tendons Past Anesthesia/Blood Transfusion Reactions: No Reported Reaction Past Psychological History: No Psychological Hx Reported Smoking Status: Never smoker, Unknown if ever smoked Past Alcohol Use History: Daily, Heavy Past Drug Use History: None Reported - Past Family History Father Family Medical History: Hypertension Mother Family Medical History: Cancer Additional Family Medical History / Comment(s): Lung cancer Brother(s) Family Medical History: No Reported History Sister(s) Family Medical History: Hypertension Daughter(s) Family Medical History: No Reported History Medications and Allergies Home Medications Medication Instructions Recorded Confirmed Type oxyCODONE-APAP 10-325MG [Percocet 1 tab PO Q4H 11/05/24 11/05/24 History 10-325 mg] Allergies Allergy/AdvReac Type Severity Reaction Status Date / Time No Known Allergies Allergy Verified 11/05/24 12:03 Physical Exam Vitals: Vital Signs Temp Pulse Resp BP Pulse Ox 11/05/24 11:00 73 18 133/101 97 11/05/24 10:00 75 20 141/77 98 11/05/24 09:15 98.2 F 78 18 126/80 98 Intake and Output 11/04/24 11/05/24 11/05/24 22:59 06:59 14:59 Other: Weight 113.398 kg GENERAL DESCRIPTION: An elderly male lying in bed, no distress. No tachypnea or accessory muscle of respiration use. HEENT: Shows Pallor , no scleral icterus. Oral mucous membrane is dry. NECK: Trachea central, no thyromegaly. LUNGS: Unlabored breathing. Clear to auscultation anteriorly. No wheeze or crackle. HEART: S1, S2, regular rate and rhythm. No loud murmur ABDOMEN: Soft, no tenderness , guarding or rigidity, no organomegaly EXTREMITIES: Swelling to bilateral lower extremity right lower leg has superficial ulceration no significant slough tissue or foul-smelling drainage SKIN: No rash, no masses palpable. NEUROLOGICAL: The patient is awake, alert, oriented x3, mood and affect normal. Results CBC & Chem 7: 11/06/24 05:07 11/06/24 05:07 Labs: Abnormal Lab Results - Last 24 Hours (Table) 11/05/24 11/05/24 Range/Units 10:01 10:01 Hgb 12.0 L (13.0-17.5) gm/dL MCHC 30.6 L (31.0-37.0) g/dL RDW 17.1 H (11.5-15.5) % Urine Protein Trace H (Negative) Urine Ketones 1+ H (Negative) Assessment and Plan (1) Cellulitis of right leg Current Visit: Yes Status: Acute Code(s): L03.115 - CELLULITIS OF RIGHT LOWER LIMB SNOMED Code(s): 56757724073522111 (2) Venous stasis ulcer Current Visit: Yes Status: Acute Code(s): I83.009 - VARICOSE VEINS OF UNSP LOWER EXTREMITY W ULCER OF UNSP SITE; L97.909 - NON-PRS CHRONIC ULC UNSP PRT OF UNSP LOW LEG W UNSP SEVERITY SNOMED Code(s): 16882742 Plan: 1patient presented to hospital with weakness increasing pain to bilateral lower extremity also complaining of pain to the lower back and also have a chronic venous stasis of right lower extremity and a previous episode of cellulitis however currently the wound looks clean without any slough. Patient not running any fever and his white count has been normal 2-recommend local wound care with dry Aquacel silver dressing followed by Rocky wrap from just above the toe to below the knee change q. 48-hour 3-May continue short course of vancomycin while waiting for the workup to be completed We will follow on clinical condition and cultures to further adjust medication if needed Thank you for this consultation we will follow the patient along with you Dictation was produced using [employer] dictation software. please excuse any gram matical, word or spelling errors. Time with Patient: Greater than 30
[2024-11-06] MEDS: VANCOMYCIN 2,000 MG in SODIUM CHLORIDE 0.9% 500 ML 500 ML IVPB SCH (05:10)
[2024-11-06 06:02] LABS: ALT 14 U/L (4-49); AST 27 U/L (17-59); African American GFR (CKD) >90 (>60 ml/min/1.73 sqM); Albumin 3.1 g/dL (3.5-5.0); Albumin/Globulin Ratio 1.2; Alkaline Phosphatase 65 U/L (38-126); Anion Gap 6 mmol/L; Blood Urea Nitrogen 18 mg/dL (9-20); Calcium 8.5 mg/dL (8.4-10.2); Carbon Dioxide 26 mmol/L (22-30); Chloride 104 mmol/L (98-107); Globulin 2.5 g/dL; Glucose 95 mg/dL (74-99); Non-African American GFR(CKD) >90 (>60 ml/min/1.73 sqM); Potassium 3.5 mmol/L (3.5-5.1); Sodium 136 mmol/L (137-145); Total Bilirubin 0.6 mg/dL (0.2-1.3); Total Protein 5.6 g/dL (6.3-8.2)
[2024-11-06] MEDS: PANTOPRAZOLE 40 MG TABLET PO SCH (08:23)
[2024-11-06] MEDS: ENOXAPARIN 40 MG/0.4 ML SYRINGE SQ SCH (08:25)
[2024-11-06 08:36] LABS: HCT 33.7 % (39.6-50.0); HGB 10.7 g/dL (13.0-17.0); MCH 27.4 pg (27.0-32.0); MCHC 31.8 g/dL (32.0-37.0); MCV 86.4 FL (80.0-97.0); Mean Platelet Volume 11.7 FL (9.5-12.2); NRBC Per 100 WBC 0 X 10*3/uL (0.00-0.01); Platelet Count 163 X 10*3/uL (140-440); RDW 17.1 % (11.5-14.5); WBC 7.93 X 10*3/uL (4.50-10.00)
[2024-11-06 08:37] LABS: Basophils # (A) 0.03 X 10*3/uL (0.00-0.10); Basophils % (A) 0.4 %; Eosinophils # (A) 0.45 X 10*3/uL (0.04-0.35); Eosinophils % (A) 5.7 %; Lymphocytes # (A) 1.68 X 10*3/uL (0.90-5.00); Lymphocytes % (A) 21.2 %; Monocytes # (A) 0.92 X 10*3/uL (0.20-1.00); Monocytes % (A) 11.6 %; Neutrophils # (A) 4.81 X 10*3/uL (1.80-7.70); Neutrophils % (A) 60.6 %
--- NOTE | 2024-11-06 13:35 | P.HPIM ---
History of Present Illness H&P Date: 11/05/24 Chief Complaint: Bilateral lower extremity cellulitis with venous ulceration HISTORY OF PRESENT ILLNESS: This is a 74-year-old male one of my patient with a previous medical history significant for hypertension and hypertensive cardiovascular disease, hyperlipidemia, obesity with obstructive sleep apnea, history of chronic alcohol use and dependence with the peripheral neuropathy, significant spondylosis of the lumbar spine with spinal stenosis and significant chronic low back pain, patient was recently hospitalized at [facility] about a month ago for MRSA cellulitis of the left lower extremity along with multiple wounds September 24 till October 01, 2024 he was found to have MRSA cellulitis and he has done well after that, he was following up with us as an outpatient in a week from the discharge, he was doing fine, apparently the patient was brought into the emergency department at [facility] today because the patient was not able to care for himself, and he lives currently in [facility], but he has not been taking care of his son at this time, whether or not he is taking his medications yet to be determined, patient was found to have a significant venous ulceration of the back of the right leg that appears to be clean at this time with minimal cellulitis, patient is not able to care for himself at this time, because of safety issues patient was admitted to hospital he was started on vancomycin due to his prior history of MRSA, and he was admitted to the hospital physical therapy/Occupational Therapy plus social organization professor consultation for discharge planning likely the patient will need to be placed in extended-care facility at this time REVIEW OF SYSTEMS: Constitutional: No documented fever, no chills, no night sweats. No weight change. positive for weakness , reports fatigue reports lethargy. Positive for daytime sleepiness. HEENT: No headache. No blurred vision or double vision, no loss of vision. No loss of Hearing, no ringing in the ears, no dizziness. No nasal drainage or congestion. No epistaxis. No sore throat. Lungs: No shortness of breath, no cough, no sputum production. No wheezing. Reports dyspnea with activity. Cardiovascular: No chest pain, positive for lower extremity edema. No palpitations. No paroxysmal nocturnal dyspnea. No orthopnea. No lightheadedness or dizziness. No syncopal episodes.Positive for nocturia. Abdominal: No abdominal pain. No nausea, vomiting. No diarrhea. No constipation. No bloody or tarry stools . No loss of appetite. Genitourinary: No dysuria, increased frequency, urgency. No urinary retention. Musculoskeletal: positive for neck pain, positive for chronic low back pain, positive for pain in both lower extremities with significant neuropathy, positive for gait dysfunction, positive for lower extremity weakness. Integumentary: venous stasis and stasis dermatitis and venous ulcer to the back of the right leg with a clean base. Neurologic: No aphasia. No facial droop. Positive for memory loss. No head injury. No headache, positive for paresthesia in both lower extremities, back to baseline. Psychiatric: Patient does appear to be somewhat depressed, appears to be a bit anxious, no suicidal thoughts or ideation. Endocrine: No abnormal blood sugars, increased weight. PAST MEDICAL HISTORY: 1. Hypertension and hypertensive cardiovascular disease. 2. Hyperlipidemia. 3. Hypothyroidism. 4. Chronic venous stasis with stasis dermatitis. 5. Chronic alcohol use and dependence. 6. Obstructive sleep apnea. 7. Peripheral neuropathy. 8. Vascular dementia. 9. Enlarged prostate. 10. 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 11. Restless leg syndrome. PAST SURGICAL HISTORY: 1. Laminectomies in the lumbar spine 3. 2. Tonsillectomy. 3. Hand surgery with tendon repair. SOCIAL HISTORY: Patient denies a history of smoking, he drinks about 3 beers every other day, he used to drink a lot heavier than that, he denies any drug use or abuse, he denies any marijuana use and lives along, he has a daughter who comes a check on him, only on the weekend. FAMILY HISTORY: Father at age 93 from old age. History of hypertension and myocardial infarction, mother at age of 84 from lung cancer and she was heavy smoker, patient has 2 brothers one of them is super morbid obesity and other one is okay, patient has 2 sisters one of them is 63-year-old with history of venous stasis, the other one is fine, patient has a daughter with no major medical problems 35-year-old. PHYSICAL EXAMINATION: General: This is a 73-year-old male who is resting in bed and does not appear to be in acute distress. HEENT: Head is atraumatic, normocephalic, pupils were equal round reactive to light and recommendation, extraocular muscle movement were intact, sclera nonicteric, conjunctivae were pale, mucous membranes of the mouth are somewhat dry. Neck: Supple, no JVP, normal carotid upstroke bilaterally, no lymphadenopathy. Chest: Decreased breath sounds at the bases, few rhonchi, no expiratory wheezes, no chest wall tenderness, no intercostal retractions. Heart: First heart sound is normal, second heart sound is normal there is systolic ejection murmur 2/6 located in the left sternal border. Abdomen: Soft, nontender, nondistended, positive bowel sounds. Extremities: There is chronic significant venous stasis of right lower extremity with a chronic skin changes dorsalis pedis +1 bilaterally Neurologic examination: Patient is awake alert and oriented X 3, cranial nerves II-12 appear grossly intact, muscle power were 4 out of 5 in upper extremities and 3out of 5 in bilateral lower extremities, deep tendon reflexes were depressed bilaterally. ASSESSMENT AND PLAN: 1. Right lower extremity venous ulcer with minimal cellulitis. Patient was started on Aquacel silver, continue to wrap the right lower extremity with Rocky wrap, change every other day, continue vancomycin with pharmacy to dose its peak and trough, infectious ease consultation appreciated. 2. Mild anemia monitor the patient CBC over the next 24 hours. Multifactorial 3. Hypertension and hypertensive cardiovascular disease. Continue patient on metoprolol ER 50 mg once every day, losartan 100 mg orally once every day, monitor the patient blood pressure very closely. 4. Hyperlipidemia. Continue atorvastatin 40 mg daily. Keep LDL 55-70. 5. Vascular dementia. Appears to be stable at this time. 6. History of chronic alcohol use and dependence. patient has quit 7. 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 Discontinue oxycodone continue patient on pregabalin 150 mg orally twice every day. 8. Bilateral lower extremity neuropathy continue patient on Lyrica 150 mg orally twice every day. 9. Peripheral neuropathy. Continue patient on pregabalin 150 mg orally 2 times every day. 10. DVT prophylaxis. Continue Lovenox 40 mg subcutaneously every 24 hours. 11. GI prophylaxis. Continue Protonix 40 mg orally once every day and famotidine 20 mg orally once every day. 12. Admit to inpatient. Estimate a length of stay 2 midnights. 13. Patient is full code. Past Medical History Past Medical History: Hypertension, Osteoarthritis (OA) Additional Past Medical History / Comment(s): chronic back pain, BLE neuropathy, lymphedema, multiple falls, cellulitis History of Any Multi-Drug Resistant Organisms: MRSA Date of last positivie culture/infection: 04/23/24 MDRO Source:: RT LEG Past Surgical History: Back Surgery, Orthopedic Surgery, Tonsillectomy Additional Past Surgical History / Comment(s): 3 back laminectomies, hand s urgery s/p trauma to reattatch tendons Past Anesthesia/Blood Transfusion Reactions: No Reported Reaction Past Psychological History: No Psychological Hx Reported Additional Psychological History / Comment(s): Patient has fear that he has onset dementia. Smoking Status: Never smoker Past Alcohol Use History: Occasional, Rare Additional Past Alcohol Use History / Comment(s): lucy states he was never a heavy drinker- patient stated he has not drink in years. Past Drug Use History: None Reported - Past Family History Father Family Medical History: Hypertension Mother Family Medical History: Cancer Additional Family Medical History / Comment(s): Lung cancer Brother(s) Family Medical History: No Reported History Sister(s) Family Medical History: Hypertension Daughter(s) Family Medical History: No Reported History Medications and Allergies Home Medications Medication Instructions Recorded Confirmed Type oxyCODONE-APAP 10-325MG [Percocet 1 tab PO Q4H 11/05/24 11/05/24 History 10-325 mg] Allergies Allergy/AdvReac Type Severity Reaction Status Date / Time No Known Allergies Allergy Verified 11/05/24 12:03 Physical Exam Vitals: Vital Signs Temp Pulse Pulse Resp BP BP Pulse Ox 11/05/24 18:55 98.3 F 77 18 116/71 98 11/05/24 16:53 98.4 F 76 18 124/68 98 11/05/24 15:14 98 F 81 18 106/69 98 11/05/24 11:00 73 18 133/101 97 11/05/24 10:00 75 20 141/77 98 11/05/24 09:15 98.2 F 78 18 126/80 98 Intake and Output 11/05/24 11/05/24 11/05/24 06:59 14:59 22:59 Other: # Voids 0 Weight 113.398 kg 113.398 kg Results CBC & Chem 7: 11/06/24 05:07 11/06/24 05:07 Labs: Abnormal Lab Results - Last 24 Hours (Table) 11/05/24 11/05/24 Range/Units 10:01 10:01 Hgb 12.0 L (13.0-17.5) gm/dL MCHC 30.6 L (31.0-37.0) g/dL RDW 17.1 H (11.5-15.5) % Urine Protein Trace H (Negative) Urine Ketones 1+ H (Negative) Thrombosis Risk Factor Assmnt - Choose All That Apply Each Factor Represents 1 point: Obesity (BMI >25), Swollen legs (current) Each Risk Factor Represents 2 Points: Age 61-74 years Thrombosis Risk Factor Assessment Total Risk Factor Score: 4 Thrombosis Risk Factor Assessment Level: Moderate Risk
[2024-11-06] MEDS: METOPROLOL SUCCINATE (ER) 50 MG TAB.ER.24H PO SCH (15:14)
--- NOTE | 2024-11-06 15:43 | P.PN ---
Subjective Progress Note Date: 11/06/24 Principal diagnosis: Reason for follow-up is right lower extremity venous ulcer and question of cellulitis Patient is a 74-year-old male with a past medical history of h ypertension osteoarthritis bilateral lower extremity venous stasis ulcer more marked on the right leg and history of recurrent cellulitis has been brought to the hospital for evaluation of weakness and pain to the lower extremity did have right leg ulcer and concern for possible cellulitis prompted this consultation.. On today's evaluation that is 11/06/2024,the patient denies any fever or any chi lls, patient is breathing comfortably on room air, the patient denies chest pain shortness of breath and no significant cough, patient denies abdominal pain, no nausea vomiting or diarrhea. Still complaining of pain to the lower extremity but no worsening some improvement with the labs. Patient white count 7.93, creatinine 0.73 local cultures are pending Objective - Vital Signs Vital signs: Vital Signs Temp 97.8 F 11/06/24 08:00 Pulse 71 11/06/24 08:00 Resp 18 11/06/24 08:00 BP 144/83 11/06/24 08:00 Pulse Ox 99 11/06/24 08:00 FiO2 Intake & Output 11/05/24 11/06/24 11/06/24 18:59 06:59 18:59 Intake Total 500 Balance 500 Weight 113.398 kg Intake: Oral 500 Other: Voiding Method Urinal Urinal # Voids 0 1 - Exam Elderly male lying in bed in no distress Unlabored breathing Bilateral extremity currently wrapped no drainage on the dressing Awake alert oriented x 3 - Labs CBC & Chem 7: 11/06/24 05:07 11/06/24 05:07 Labs: Abnormal Lab Results - Last 24 Hours (Table) 11/06/24 11/06/24 Range/Units 05:07 05:07 RBC 3.90 L (4.40-5.60) X 10*6/uL Hgb 10.7 L (13.0-17.0) g/dL Hct 33.7 L (39.6-50.0) % MCHC 31.8 L (32.0-37.0) g/dL RDW 17.1 H (11.5-14.5) % Eosinophils # 0.45 H (0.04-0.35) X 10*3/uL Sodium 136 L (137-145) mmol/L Total Protein 5.6 L (6.3-8.2) g/dL Albumin 3.1 L (3.5-5.0) g/dL Microbiology - Last 24 Hours (Table) 11/05/24 21:40 Gram Stain - Preliminary Ankle - Right Assessment and Plan (1) Cellulitis of right leg Current Visit: Yes Status: Acute Code(s): L03.115 - CELLULITIS OF RIGHT LOWER LIMB SNOMED Code(s): 32624077471738998 (2) Venous stasis ulcer Current Visit: Yes Status: Acute Code(s): I83.009 - VARICOSE VEINS OF UNSP LOWER EXTREMITY W ULCER OF UNSP SITE; L97.909 - NON-PRS CHRONIC ULC UNSP PRT OF UNSP LOW LEG W UNSP SEVERITY SNOMED Code(s): 62269835 Plan: 1patient presented to hospital with weakness increasing pain to bilateral lower extremity also complaining of pain to the lower back and also have a chronic venous stasis of right lower extremity and more pain concern for possible cellulitis local cultures obtained in the ER which are currently pending 2-recommend local wound care with dry Aquacel silver dressing followed by Rocky wrap from just above the toe to below the knee change q. 48-hour 3-patient to continue vancomycin while waiting for the culture to finalize Dictation was produced using [employer] dictation software. please excuse any grammatical, word or spelling errors.
[2024-11-06] MEDS: ATORVASTATIN 40 MG TAB PO SCH (20:24)
[2024-11-06] MEDS: DOCUSATE 100 MG CAP PO SCH (20:25)
[2024-11-06] MEDS: LACTULOSE 20 GM/30 ML CUP PO SCH (20:25)
[2024-11-07 07:29] LABS: ALT 14 U/L (4-49); AST 24 U/L (17-59); African American GFR (CKD) >90 (>60 ml/min/1.73 sqM); Albumin 2.9 g/dL (3.5-5.0); Albumin/Globulin Ratio 1.1; Alkaline Phosphatase 58 U/L (38-126); Anion Gap 4 mmol/L; Blood Urea Nitrogen 13 mg/dL (9-20); Calcium 8.4 mg/dL (8.4-10.2); Carbon Dioxide 28 mmol/L (22-30); Chloride 106 mmol/L (98-107); Globulin 2.6 g/dL; Glucose 91 mg/dL (74-99); Non-African American GFR(CKD) >90 (>60 ml/min/1.73 sqM); Potassium 3.8 mmol/L (3.5-5.1); Sodium 138 mmol/L (137-145); Total Bilirubin 0.5 mg/dL (0.2-1.3); Total Protein 5.5 g/dL (6.3-8.2)
[2024-11-07] MEDS: LOSARTAN 50 MG TAB PO SCH (08:56)
[2024-11-07] MEDS: ASPIRIN 81 MG PO SCH (08:56)
--- NOTE | 2024-11-07 10:30 | P.PN ---
Subjective Progress Note Date: 11/06/24 HISTORY OF PRESENT ILLNESS: This is a 74-year-old male one of my patient with a previous medical history significant for hypertension and hypertensive cardiovascular disease, hyperlipidemia, obesity with obstructive sleep apnea, history of chronic alcohol use and dependence with the peripheral neuropathy, significant spondylosis of the lumbar spine with spinal stenosis and significant chronic low back pain, patient was recently hospitalized at [facility] about a month ago for MRSA cellulitis of the left lower extremity along with multiple wounds September 24 till October 01, 2024 he was found to have MRSA cellulitis and he has done well after that, he was following up with us as an outpatient in a week from the discharge, he was doing fine, apparently the patient was brought into the emergency department at [facility] today because the patient was not able to care for himself, and he lives currently in [facility], but he has not been taking care of his son at this time, whether or not he is taking his medications yet to be determined, patient was found to have a significant venous ulceration of the back of the right leg that appears to be clean at this time with minimal cellulitis, patient is not able to care for himself at this time, because of safety issues patient was admitted to hospital he was started on vancomycin due to his prior history of MRSA, and he was admitted to the hospital physical therapy/Occupational Therapy plus social work nurse consultation for discharge planning likely the patient will need to be placed in extended-care facility at this time 11/06: Patient is laying down in bed in no apparent distress, he denies any chest pain, shortness of breath, at this time, he was seen in consultation by infectious ease who recommended Aquacel silver to the right venous ulcer, continue short course of vancomycin, await the final result of the blood culture and wound culture, physical therapy evaluation, social work nurse consultation for d ischarge planning. REVIEW OF SYSTEMS: Constitutional: No documented fever, no chills, no night sweats. No weight change. positive for weakness , reports fatigue reports lethargy. Positive for daytime sleepiness. HEENT: No headache. No blurred vision or double vision, no loss of vision. No loss of Hearing, no ringing in the ears, no dizziness. No nasal drainage or congestion. No epistaxis. No sore throat. Lungs: No shortness of breath, no cough, no sputum production. No wheezing. Reports dyspnea with activity. Cardiovascular: No chest pain, positive for lower extremity edema. No palpitations. No paroxysmal nocturnal dyspnea. No orthopnea. No lightheadedness or dizziness. No syncopal episodes.Positive for nocturia. Abdominal: No abdominal pain. No nausea, vomiting. No diarrhea. No constipation. No bloody or tarry stools . No loss of appetite. Genitourinary: No dysuria, increased frequency, urgency. No urinary retention. Musculoskeletal: positive for neck pain, positive for chronic low back pain, positive for pain in both lower extremities with significant neuropathy, positive for gait dysfunction, positive for lower extremity weakness. Integumentary: venous stasis and stasis dermatitis and venous ulcer to the back of the right leg with a clean base. Neurologic: No aphasia. No facial droop. Positive for memory loss. No head injury. No headache, positive for paresthesia in both lower extremities, back to baseline. Psychiatric: Patient does appear to be somewhat depressed, appears to be a bit anxious, no suicidal thoughts or ideation. Endocrine: No abnormal blood sugars, increased weight. PHYSICAL EXAMINATION: General: This is a 74-year-old male who is resting in bed and does not appear to be in acute distress. HEENT: Head is atraumatic, normocephalic, pupils were equal round reactive to light and recommendation, extraocular muscle movement were intact, sclera nonicteric, conjunctivae were pale, mucous membranes of the mouth are somewhat dry. Neck: Supple, no JVP, normal carotid upstroke bilaterally, no lymphadenopathy. Chest: Decreased breath sounds at the bases, few rhonchi, no expiratory wheezes, no chest wall tenderness, no intercostal retractions. Heart: First heart sound is normal, second heart sound is normal there is systolic ejection murmur 2/6 located in the left sternal border. Abdomen: Soft, nontender, nondistended, positive bowel sounds. Extremities: There is chronic significant venous stasis of right lower extremity with a chronic skin changes dorsalis pedis +1 bilaterally Neurologic examination: Patient is awake alert and oriented X 3, cranial nerves II-12 appear grossly intact, muscle power were 4 out of 5 in upper extremities and 3out of 5 in bilateral lower extremities, deep tendon reflexes were depressed bilaterally. ASSESSMENT AND PLAN: 1. Right lower extremity venous ulcer with minimal cellulitis. Patient was started on Aquacel silver, continue to wrap the right lower extremity with Rocky wrap, change every other day, continue vancomycin with pharmacy to dose its peak and trough, infectious ease consultation appreciated. 2. Mild anemia monitor the patient CBC over the next 24 hours. Multifactorial 3. Hypertension and hypertensive cardiovascular disease. Continue patient on metoprolol ER 50 mg once every day, losartan 100 mg orally once every day, monitor the patient blood pressure very closely. 4. Hyperlipidemia. Continue atorvastatin 40 mg daily. Keep LDL 55-70. 5. Vascular dementia. Appears to be stable at this time. 6. History of chronic alcohol use and dependence. patient has quit 7. 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 Discontinue oxycodone continue patient on pregabalin 150 mg orally twice every day. 8. Bilateral lower extremity neuropathy continue patient on Lyrica 150 mg orally twice every day. 9. Peripheral neuropathy. Continue patient on pregabalin 150 mg orally 2 times every day. 10. DVT prophylaxis. Continue Lovenox 40 mg subcutaneously every 24 hours. 11. GI prophylaxis. Continue Protonix 40 mg orally once every day and famotidine 20 mg orally once every day. 12. Physical therapy evaluation for possible subacute rehabilitation. 13. before and after school daycare worker consultation for discharge planning Objective - Vital Signs Vital signs: Vital Signs Temp 97.8 F 11/06/24 08:00 Pulse 71 11/06/24 08:00 Resp 18 11/06/24 08:00 BP 144/83 11/06/24 08:00 Pulse Ox 99 11/06/24 08:00 FiO2 Intake & Output 11/05/24 11/06/24 11/06/24 18:59 06:59 18:59 Intake Total 500 Balance 500 Weight 113.398 kg Intake: Oral 500 Other: Voiding Method Urinal Urinal # Voids 0 1 - Labs CBC & Chem 7: 11/06/24 05:07 11/06/24 05:07 Labs: Abnormal Lab Results - Last 24 Hours (Table) 11/06/24 11/06/24 Range/Units 05:07 05:07 RBC 3.90 L (4.40-5.60) X 10*6/uL Hgb 10.7 L (13.0-17.0) g/dL Hct 33.7 L (39.6-50.0) % MCHC 31.8 L (32.0-37.0) g/dL RDW 17.1 H (11.5-14.5) % Eosinophils # 0.45 H (0.04-0.35) X 10*3/uL Sodium 136 L (137-145) mmol/L Total Protein 5.6 L (6.3-8.2) g/dL Albumin 3.1 L (3.5-5.0) g/dL Microbiology - Last 24 Hours (Table) 11/05/24 21:40 Gram Stain - Preliminary Ankle - Right
[2024-11-07 10:33] LABS: Basophils # (A) 0.06 X 10*3/uL (0.00-0.10); Eosinophils # (A) 0.47 X 10*3/uL (0.04-0.35); Eosinophils % (A) 7.5 %; HCT 35.4 % (39.6-50.0); HGB 10.8 g/dL (13.0-17.0); Lymphocytes # (A) 2.28 X 10*3/uL (0.90-5.00); Lymphocytes % (A) 36.5 %; MCH 27.1 pg (27.0-32.0); MCHC 30.5 g/dL (32.0-37.0); MCV 88.7 FL (80.0-97.0); Mean Platelet Volume 11.9 FL (9.5-12.2); Monocytes # (A) 0.67 X 10*3/uL (0.20-1.00); Monocytes % (A) 10.7 %; NRBC Per 100 WBC 0 X 10*3/uL (0.00-0.01); Neutrophils # (A) 2.76 X 10*3/uL (1.80-7.70); Neutrophils % (A) 44.1 %; Platelet Count 141 X 10*3/uL (140-440); RBC 3.99 X 10*6/uL (4.40-5.60); RDW 16.8 % (11.5-14.5); WBC 6.25 X 10*3/uL (4.50-10.00)
[2024-11-07] MEDS: FUROSEMIDE 40 MG TAB PO SCH (11:08)
[2024-11-07] MEDS: POTASSIUM CHLORIDE ER 20 MEQ TAB.ER PO SCH (11:09)
[2024-11-07] MEDS: PREGABALIN 75 MG CAP PO SCH (12:05)
[2024-11-07] MEDS: IPRATROPIUM-ALBUTEROL 3 ML NEB INHALATION PRN (15:18)
[2024-11-07] MEDS ORDERED: ZINC OXIDE PASTE (Z-GUARD) 1 APPLIC TOPICAL PRN (16:57)
--- NOTE | 2024-11-07 18:45 | P.PN ---
Subjective Progress Note Date: 11/07/24 HISTORY OF PRESENT ILLNESS: This is a 74-year-old male one of my patient with a previous medical history significant for hypertension and hypertensive cardiovascular disease, hyperlipidemia, obesity with obstructive sleep apnea, history of chronic alcohol use and dependence with the peripheral neuropathy, significant spondylosis of the lumbar spine with spinal stenosis and significant chronic low back pain, patient was recently hospitalized at [facility] about a month ago for MRSA cellulitis of the left lower extremity along with multiple wounds September 24 till October 01, 2024 he was found to have MRSA cellulitis and he has done well after that, he was following up with us as an outpatient in a week from the discharge, he was doing fine, apparently the patient was brought into the emergency department at [facility] today because the patient was not able to care for himself, and he lives currently in [facility], but he has not been taking care of his son at this time, whether or not he is taking his medications yet to be determined, patient was found to have a significant venous ulceration of the back of the right leg that appears to be clean at this time with minimal cellulitis, patient is not able to care for himself at this time, because of safety issues patient was admitted to hospital he was started on vancomycin due to his prior history of MRSA, and he was admitted to the hospital physical therapy/Occupational Therapy plus criminal justice social worker consultation for discharge planning likely the patient will need to be placed in extended-care facility at this time 11/06: Patient is laying down in bed in no apparent distress, he denies any chest pain, shortness of breath, at this time, he was seen in consultation by infectious ease who recommended Aquacel silver to the right venous ulcer, continue short course of vancomycin, await the final result of the blood culture and wound culture, physical therapy evaluation, criminal justice social worker consultation for d ischarge planning. 11/07: Patient appears to be a bit short of breath today, he is having some expir atory wheezes, discontinue IV fluid, discussed with the nursing staff, start the patient on Lasix 40 mg once every day potassium 20 mill equivalent once every day, start the patient on DuoNeb 3 mL nebulization 4 times every day, monitor the patient very closely, continue current treatment plan with vancomycin, continue local care, physical therapy and Occupational Therapy evaluation, discussed with the criminal justice social worker the need for subacute rehabilitation she is trying to try to get the patient to one of the facility outside of [place] REVIEW OF SYSTEMS: Constitutional: No documented fever, no chills, no night sweats. No weight change. positive for weakness , reports fatigue reports lethargy. Positive for daytime sleepiness. HEENT: No headache. No blurred vision or double vision, no loss of vision. No loss of Hearing, no ringing in the ears, no dizziness. No nasal drainage or c ongestion. No epistaxis. No sore throat. Lungs: No shortness of breath, no cough, no sputum production. No wheezing. Reports dyspnea with activity. Cardiovascular: No chest pain, positive for lower extremity edema. No palpitations. No paroxysmal nocturnal dyspnea. No orthopnea. No lighthead edness or dizziness. No syncopal episodes.Positive for nocturia. Abdominal: No abdominal pain. No nausea, vomiting. No diarrhea. No constipation. No bloody or tarry stools . No loss of appetite. Genitourinary: No dysuria, increased frequency, urgency. No urinary retention. Musculoskeletal: positive for neck pain, positive for chronic low back pain, positive for pain in both lower extremities with significant neuropathy, positive for gait dysfunction, positive for lower extremity weakness. Integumentary: venous stasis and stasis dermatitis and venous ulcer to the back of the right leg with a clean base. Neurologic: No aphasia. No facial droop. Positive for memory loss. No head i njury. No headache, positive for paresthesia in both lower extremities, back to baseline. Psychiatric: Patient does appear to be somewhat depressed, appears to be a bit anxious, no suicidal thoughts or ideation. Endocrine: No abnormal blood sugars, increased weight. PHYSICAL EXAMINATION: General: This is a 74-year-old male who is resting in bed and does not appear to be in acute distress. HEENT: Head is atraumatic, normocephalic, pupils were equal round reactive to light and recommendation, extraocular muscle movement were intact, sclera nonicteric, conjunctivae were pale, mucous membranes of the mouth are somewhat dry. Neck: Supple, no JVP, normal carotid upstroke bilaterally, no lymphadenopathy. Chest: Decreased breath sounds at the bases, few rhonchi, no expiratory wheezes, no chest wall tenderness, no intercostal retractions. Heart: First heart sound is normal, second heart sound is normal there is systolic ejection murmur 2/6 located in the left sternal border. Abdomen: Soft, nontender, nondistended, positive bowel sounds. Extremities: There is chronic significant venous stasis of right lower extremity with a chronic skin changes dorsalis pedis +1 bilaterally Neurologic examination: Patient is awake alert and oriented X 3, cranial nerves II-12 appear grossly intact, muscle power were 4 out of 5 in upper extremities and 3out of 5 in bilateral lower extremities, deep tendon reflexes were depressed bilaterally. ASSESSMENT AND PLAN: 1. Right lower extremity venous ulcer with minimal cellulitis. Patient was started on Aquacel silver, continue to wrap the right lower extremity with Rocky wrap, change every other day, continue vancomycin with pharmacy to dose its peak and trough, infectious ease consultation appreciated. 2. Mild anemia monitor the patient CBC over the next 24 hours. Multifactorial continue to monitor CBC. 3. Hypertension and hypertensive cardiovascular disease. Continue patient on metoprolol ER 50 mg once every day, losartan 100 mg orally once every day, monitor the patient blood pressure very closely. 4. Hyperlipidemia. Continue atorvastatin 40 mg daily. Keep LDL 55-70. 5. Vascular dementia. Appears to be stable at this time. 6. History of chronic alcohol use and dependence. patient has quit 7. 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 Continue patient on Percocet 10/325 mg 1 tablet every 4 hours as needed, continue Lyrica 150 mg orally twice every day. 8. Peripheral neuropathy. Continue patient on pregabalin 150 mg orally 2 times every day. 9. DVT prophylaxis. Continue Lovenox 40 mg subcutaneously every 24 hours. 10. GI prophylaxis. Continue Protonix 40 mg orally once every day . 11. Physical therapy evaluation for possible subacute rehabilitation. 12. grocery worker consultation for discharge planning Objective - Vital Signs Vital signs: Vital Signs Temp 98.1 F 11/07/24 07:10 Pulse 62 11/07/24 07:10 Resp 17 11/07/24 07:10 BP 147/70 11/07/24 07:10 Pulse Ox 99 11/07/24 07:10 FiO2 Intake & Output 11/06/24 11/07/24 11/07/24 18:59 06:59 18:59 Intake Total 1377 Output Total 150 200 400 Balance 1227 -200 -400 Intake: Oral 1377 Output: Urine 150 200 400 Other: Voiding Method Urinal Urinal - Labs CBC & Chem 7: 11/07/24 06:36 11/07/24 06:36 Labs: Abnormal Lab Results - Last 24 Hours (Table) 11/07/24 Range/Units 06:36 Creatinine 0.63 L (0.66-1.25) mg/dL Total Protein 5.5 L (6.3-8.2) g/dL Albumin 2.9 L (3.5-5.0) g/dL Microbiology - Last 24 Hours (Table) 11/05/24 21:40 Gram Stain - Preliminary Ankle - Right Wound Culture - Preliminary Presumptive MRSA 11/05/24 13:46 Blood Culture - Preliminary Blood
[2024-11-07] MEDS ORDERED: PREGABALIN 75 MG CAP PO SCH (21:00)
[2024-11-08 05:39] LABS: African American GFR (CKD) >90 (>60 ml/min/1.73 sqM); Non-African American GFR(CKD) >90 (>60 ml/min/1.73 sqM)
[2024-11-08] MEDS: VANCOMYCIN TROUGH DUE 1 EACH MISC MISCELLANE ONE (06:25)
--- NOTE | 2024-11-08 15:00 | P.PN ---
Subjective Progress Note Date: 11/07/24 Principal diagnosis: Reason for follow-up is right lower extremity venous ulcer and question of cellulitis Patient is a 74-year-old male with a past medical history of h ypertension osteoarthritis bilateral lower extremity venous stasis ulcer more marked on the right leg and history of recurrent cellulitis has been brought to the hospital for evaluation of weakness and pain to the lower extremity did have right leg ulcer and concern for possible cellulitis prompted this consultation.. On today's evaluation that is 11/07/2024,the patient remains to be afebrile, pat ient is on room air not requiring supplemental oxygen and denies any shortness of breath no chest pain or cough.Patient denies having any nausea or vomiting, no abdominal pain and no diarrhea still complaining of pain to the back and lower extremity but no worsening. Patient white count 6.25, creatinine 0.63 culture with MRSA Objective - Vital Signs Vital signs: Vital Signs Temp 98.1 F 11/07/24 07:10 Pulse 62 11/07/24 07:10 Resp 17 11/07/24 07:10 BP 147/70 11/07/24 07:10 Pulse Ox 99 11/07/24 07:10 FiO2 Intake & Output 11/06/24 11/07/24 11/07/24 18:59 06:59 18:59 Intake Total 1377 Output Total 150 200 400 Balance 1227 -200 -400 Intake: Oral 1377 Output: Urine 150 200 400 Other: Voiding Method Urinal Urinal Urinal - Exam GENERAL DESCRIPTION: An elderly male lying in bed in no distress RESPIRATORY SYSTEM: Unlabored breathing , decreased breath sounds at bases HEART: S1 S2 regular rate and rhythm , ABDOMEN: Soft , no tenderness EXTREMITIES: Bilateral lower extremity overall swelling redness has decreased wound base with no slough tissue - Labs CBC & Chem 7: 11/07/24 06:36 11/08/24 04:51 Labs: Abnormal Lab Results - Last 24 Hours (Table) 11/07/24 11/07/24 Range/Units 06:36 06:36 RBC 3.99 L (4.40-5.60) X 10*6/uL Hgb 10.8 L (13.0-17.0) g/dL Hct 35.4 L (39.6-50.0) % MCHC 30.5 L (32.0-37.0) g/dL RDW 16.8 H (11.5-14.5) % Eosinophils # 0.47 H (0.04-0.35) X 10*3/uL Creatinine 0.63 L (0.66-1.25) mg/dL Total Protein 5.5 L (6.3-8.2) g/dL Albumin 2.9 L (3.5-5.0) g/dL Microbiology - Last 24 Hours (Table) 11/05/24 21:40 Gram Stain - Preliminary Ankle - Right Wound Culture - Preliminary Presumptive MRSA 11/05/24 13:46 Blood Culture - Preliminary Blood Assessment and Plan (1) Cellulitis of right leg Current Visit: Yes Status: Acute Code(s): L03.115 - CELLULITIS OF RIGHT LOWER LIMB SNOMED Code(s): 82460545660289321 (2) Venous stasis ulcer Current Visit: Yes Status: Acute Code(s): I83.009 - VARICOSE VEINS OF UNSP LOWER EXTREMITY W ULCER OF UNSP SITE; L97.909 - NON-PRS CHRONIC ULC UNSP PRT OF UNSP LOW LEG W UNSP SEVERITY SNOMED Code(s): 35198458 Plan: 1patient presented to hospital with weakness increasing pain to bilateral lower extremity also complaining of pain to the lower back and also have a chronic venous stasis of right lower extremity and more pain concern for possible cellulitis local cultures obtained in the ER which are currently pending 2-r patient to continue local wound care with dry Aquacel silver dressing f ollowed by Rocky wrap from just above the toe to below the knee change q. 48-hour 3-local culture current growing MRSA patient is covered with the vancomycin to continue while inpatient Dictation was produced using [employer] dictation software. please excuse any grammatical, word or spelling errors. Time with Patient: Less than 30
--- NOTE | 2024-11-08 15:01 | P.PN ---
Subjective Progress Note Date: 11/08/24 Principal diagnosis: Reason for follow-up is right lower extremity venous ulcer and question of cellulitis Patient is a 74-year-old male with a past medical history of h ypertension osteoarthritis bilateral lower extremity venous stasis ulcer more marked on the right leg and history of recurrent cellulitis has been brought to the hospital for evaluation of weakness and pain to the lower extremity did have right leg ulcer and concern for possible cellulitis prompted this consultation.. On today's evaluation that is 11/08/2024, the patient continues to be afebrile, the patient is on 3 L nasal oxygen and breathing comfortably, the Pt denies having any chest pain or cough, the patient denies having any abdominal pain no vomiting did not have any bowel movement today however he did have few loose stool last night as reported by the nursing staff. Patient white count is 18.08 creatinine is 2.8 Objective - Vital Signs Vital signs: Vital Signs Temp 98.5 F 11/08/24 14:00 Pulse 78 11/08/24 14:00 Resp 18 11/08/24 14:00 BP 118/77 11/08/24 14:00 Pulse Ox 98 11/08/24 14:00 FiO2 Intake & Output 11/07/24 11/08/24 11/08/24 18:59 06:59 18:59 Intake Total 1326 480 Output Total 975 980 200 Balance 351 -500 -200 Intake: Oral 1326 480 Output: Urine 975 980 200 Other: Voiding Method Urinal Toilet Urinal # Voids 1 # Bowel Movements 1 - Exam GENERAL DESCRIPTION: An elderly male up in the chair RESPIRATORY SYSTEM: Unlabored breathing EXTREMITIES: Bilateral lower extremity currently wrapped no drainage on the dressing - Labs CBC & Chem 7: 11/07/24 06:36 11/08/24 04:51 Labs: Microbiology - Last 24 Hours (Table) 11/05/24 21:40 Anaerobic Culture - Preliminary Ankle - Right 11/05/24 21:40 Gram Stain - Preliminary Ankle - Right Wound Culture - Preliminary Methicillin resist S. aureus Strep A 11/05/24 13:46 Blood Culture - Preliminary Blood Assessment and Plan (1) Cellulitis of right leg Current Visit: Yes Status: Acute Code(s): L03.115 - CELLULITIS OF RIGHT LOWER LIMB SNOMED Code(s): 83830629686134575 (2) Venous stasis ulcer Current Visit: Yes Status: Acute Code(s): I83.009 - VARICOSE VEINS OF UNSP LOWER EXTREMITY W ULCER OF UNSP SITE; L97.909 - NON-PRS CHRONIC ULC UNSP PRT OF UNSP LOW LEG W UNSP SEVERITY SNOMED Code(s): 74398095 Plan: 1patient presented to hospital with weakness increasing pain to bilateral lower extremity also complaining of pain to the lower back and also have a chronic venous stasis of right lower extremity and more pain concern for possible cellulitis local cultures obtained in the ER which are currently pending 2-r patient to continue local wound care with dry Aquacel silver dressing followed by Rocky wrap from just above the toe to below the knee change q. 48-hour 3-local culture current growing MRSA patient is covered with the vancomycin to c ontinue while inpatient, patient be able to finish therapy with the Bactrim DS 1 twice daily for 7 days on discharge Dictation was produced using [employer] dictation software. please excuse any grammatical, word or spelling errors. Time with Patient: Less than 30
--- NOTE | 2024-11-08 15:36 | P.PN ---
Subjective Progress Note Date: 11/08/24 HISTORY OF PRESENT ILLNESS: This is a 74-year-old male one of my patient with a previous medical history significant for hypertension and hypertensive cardiovascular disease, hyperlipidemia, obesity with obstructive sleep apnea, history of chronic alcohol use and dependence with the peripheral neuropathy, significant spondylosis of the lumbar spine with spinal stenosis and significant chronic low back pain, patient was recently hospitalized at [facility] about a month ago for MRSA cellulitis of the left lower extremity along with multiple wounds September 24 till October 01, 2024 he was found to have MRSA cellulitis and he has done well after that, he was following up with us as an outpatient in a week from the discharge, he was doing fine, apparently the patient was brought into the emergency department at [facility] today because the patient was not able to care for himself, and he lives currently in [facility], but he has not been taking care of his son at this time, whether or not he is taking his medications yet to be determined, patient was found to have a significant venous ulceration of the back of the right leg that appears to be clean at this time with minimal cellulitis, patient is not able to care for himself at this time, because of safety issues patient was admitted to hospital he was started on vancomycin due to his prior history of MRSA, and he was admitted to the hospital physical therapy/Occupational Therapy plus child protective services social worker consultation for discharge planning likely the patient will need to be placed in extended-care facility at this time 11/06: Patient is laying down in bed in no apparent distress, he denies any chest pain, shortness of breath, at this time, he was seen in consultation by infectious ease who recommended Aquacel silver to the right venous ulcer, continue short course of vancomycin, await the final result of the blood culture and wound culture, physical therapy evaluation, child protective services social worker consultation for d ischarge planning. 11/07: Patient appears to be a bit short of breath today, he is having some expir atory wheezes, discontinue IV fluid, discussed with the nursing staff, start the patient on Lasix 40 mg once every day potassium 20 mill equivalent once every day, start the patient on DuoNeb 3 mL nebulization 4 times every day, monitor the patient very closely, continue current treatment plan with vancomycin, continue local care, physical therapy and Occupational Therapy evaluation, discussed with the child protective services social worker the need for subacute rehabilitation she is trying to try to get the patient to one of the facility outside of [place] 11/08: Patient is feeling better today, his pain is in better control, he continues to get his Percocet every 4 hours, added pregabalin 150 mg orally twice every day yesterday, has been getting vancomycin and local care for his right venous ulcer, has been seen by physical therapy occupational therapy as well as child protective services social worker, patient's will likely be discharged hopefully on Monday, wound culture finalized to be MRSA that is sensitive to vancomycin. Continue current treatment plan, infectious disease following. REVIEW OF SYSTEMS: Constitutional: No documented fever, no chills, no night sweats. No weight change. positive for weakness , reports fatigue reports lethargy. Positive for daytime sleepiness. HEENT: No headache. No blurred vision or double vision, no loss of vision. No loss of Hearing, no ringing in the ears, no dizziness. No nasal drainage or congestion. No epistaxis. No sore throat. Lungs: No shortness of breath, no cough, no sputum production. No wheezing. Reports dyspnea with activity. Cardiovascular: No chest pain, positive for lower extremity edema. No palpitations. No paroxysmal nocturnal dyspnea. No orthopnea. No lightheadedness or dizziness. No syncopal episodes.Positive for nocturia. Abdominal: No abdominal pain. No nausea, vomiting. No diarrhea. No constipation. No bloody or tarry stools . No loss of appetite. Genitourinary: No dysuria, increased frequency, urgency. No urinary retention. Musculoskeletal: positive for neck pain, positive for chronic low back pain, positive for pain in both lower extremities with significant neuropathy, positive for gait dysfunction, positive for lower extremity weakness. Integumentary: venous stasis and stasis dermatitis and venous ulcer to the back of the right leg with a clean base. Neurologic: No aphasia. No facial droop. Positive for memory loss. No head injury. No headache, positive for paresthesia in both lower extremities, back to baseline. Psychiatric: Patient does appear to be somewhat depressed, appears to be a bit anxious, no suicidal thoughts or ideation. Endocrine: No abnormal blood sugars, increased weight. PHYSICAL EXAMINATION: General: This is a 74-year-old male who is resting in bed and does not appear to be in acute distress. HEENT: Head is atraumatic, normocephalic, pupils were equal round reactive to light and recommendation, extraocular muscle movement were intact, sclera nonicteric, conjunctivae were pale, mucous membranes of the mouth are somewhat dry. Neck: Supple, no JVP, normal carotid upstroke bilaterally, no lymphadenopathy. Chest: Decreased breath sounds at the bases, few rhonchi, no expiratory wheezes, no chest wall tenderness, no intercostal retractions. Heart: First heart sound is normal, second heart sound is normal there is systolic ejection murmur 2/6 located in the left sternal border. Abdomen: Soft, nontender, nondistended, positive bowel sounds. Extremities: There is chronic significant venous stasis of right lower extremity with a chronic skin changes dorsalis pedis +1 bilaterally Neurologic examination: Patient is awake alert and oriented X 3, cranial nerves II-12 appear grossly intact, muscle power were 4 out of 5 in upper extremities and 3out of 5 in bilateral lower extremities, deep tendon reflexes were depressed bilaterally. ASSESSMENT AND PLAN: 1. Right lower extremity venous ulcer with MRSA cellulitis.. Patient was started on Aquacel silver, continue to wrap the right lower extremity with Rocky wrap, change every other day, continue vancomycin with pharmacy to dose its peak and trough, infectious ease consultation appreciated. 2. Mild anemia monitor the patient CBC over the next 24 hours. Multifactorial continue to monitor CBC. 3. Hypertension and hypertensive cardiovascular disease. Continue patient on metoprolol ER 50 mg once every day, losartan 100 mg orally once every day, monitor the patient blood pressure very closely. 4. Hyperlipidemia. Continue atorvastatin 40 mg daily. Keep LDL 55-70. 5. Vascular dementia. Appears to be stable at this time. 6. History of chronic alcohol use and dependence. patient has quit 7. 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 Continue patient on Percocet 10/325 mg 1 tablet every 4 hours as needed, continue Lyrica 150 mg orally twice every day. 8. Peripheral neuropathy. Continue patient on pregabalin and increase the dose to 150 mg orally 3 times every day. 9. DVT prophylaxis. Continue Lovenox 40 mg subcutaneously every 24 hours. 10. GI prophylaxis. Continue Protonix 40 mg orally once every day . 11. Insomnia start the patient on melatonin 6 mg at bedtime. 12. Spondylosis of the cervical spine without myelopathy patient is requesting to see a spine surgeon we will consult Dr. Watts 13. Physical therapy evaluation for possible subacute rehabilitation. 14. marshmallow machine worker consultation for discharge planning 15. Likely discharge on Monday. Objective - Vital Signs Vital signs: Vital Signs Temp 98.5 F 11/08/24 14:00 Pulse 78 11/08/24 14:00 Resp 18 11/08/24 14:00 BP 118/77 11/08/24 14:00 Pulse Ox 98 11/08/24 14:00 FiO2 Intake & Output 11/07/24 11/08/24 11/08/24 18:59 06:59 18:59 Intake Total 1326 480 Output Total 975 980 200 Balance 351 -500 -200 Intake: Oral 1326 480 Output: Urine 975 980 200 Other: Voiding Method Urinal Toilet Urinal # Voids 1 # Bowel Movements 1 - Labs CBC & Chem 7: 11/07/24 06:36 11/08/24 04:51 Labs: Microbiology - Last 24 Hours (Table) 11/05/24 21:40 Anaerobic Culture - Preliminary Ankle - Right 11/05/24 21:40 Gram Stain - Preliminary Ankle - Right Wound Culture - Preliminary Methicillin resist S. aureus Strep A 11/05/24 13:46 Blood Culture - Preliminary Blood
[2024-11-08] MEDS: PREGABALIN 75 MG CAP PO SCH (16:20)
[2024-11-08] MEDS: MELATONIN 3 MG TABLET PO SCH (20:21)
--- NOTE | 2024-11-09 09:52 | P.CNOR ---
History of Present Illness - [facility] Consult date: 11/09/24 Consult reason: neck pain History of present illness: Patient is a 74-year-old male who has been at [facility] being treated for bilateral lower extremity ulcers/cellulitis. Patient is being foll owed by internal medicine along with infectious disease at this time. Our orthopedic team was consulted for neck pain/cervical spondylosis. Patient was evaluated today at bedside, he is resting comfortably in his hospital bed, he appears to be in no acute distress. Patient has a relatively detailed orthopedic history. Apparently has been following with orthopedic [facility] for many years, he has been evaluated by multiple physicians there including Dr. Reyes of the orthopedic spine surgeon. Apparently the patient's had an MRI of both the cervical, thoracic and lumbar spine. Sounds like the patient wanted a second opinion, he was actually scheduled to see our orthopedic spine service back in July but had to cancel that appointment and has not been evaluated by our service at this time. Patient admits to bilateral knee osteoarthritis the left being worse than the right. He was actually scheduled with one of the other orthopedic doctors at [facility] for a total knee replacement in August, this was also canceled and not rescheduled. Patient has known severe degenerative disc disease to the cervical and lumbar spine. Patient lives at [facility] and is normally independent, he states over the last few months his health in general has declined. Patient has had a very difficult time with ambulation, he states he has very poor balance. He has a known history of neuropathy that affects the bilateral lower extremities, he does have a history of alcohol abuse. Patient admits to significant discomfort to the posterior neck, he admits to weakness along with paresthesias to the bilateral upper extremities, the right being worse than the left. At this time patient takes a narcotic pain medication to help for pain control, he was also recently put on Lyrica by his primary care doctor for the neuropathy type symptoms affecting the bilateral lower extremities. Patient denies any loss of bowel or bladder function. He admits to numbness and tingling along with weakness to the bilateral lower extremities. Review of Systems Constitutional: Reports as per HPI Past Medical History Past Medical History: Hypertension, Osteoarthritis (OA) Additional Past Medical History / Comment(s): ETOH abuse, chronic back pain, BLE neuropathy, lymphedema, multiple falls, cellulitis History of Any Multi-Drug Resistant Organisms: MRSA Year Discovered:: 04/23/24 MDRO Source:: RT LEG Past Surgical History: Back Surgery, Orthopedic Surgery, Tonsillectomy Additional Past Surgical History / Comment(s): 3 back laminectomies, hand cuenca rgery s/p trauma to reattatch tendons Past Anesthesia/Blood Transfusion Reactions: No Reported Reaction Past Psychological History: No Psychological Hx Reported Smoking Status: Never smoker, Unknown if ever smoked Past Alcohol Use History: Daily, Heavy Past Drug Use History: None Reported - Past Family History Father Family Medical History: Hypertension Mother Family Medical History: Cancer Additional Family Medical History / Comment(s): Lung cancer Brother(s) Family Medical History: No Reported History Sister(s) Family Medical History: Hypertension Daughter(s) Family Medical History: No Reported History Medications and Allergies Home Medications Medication Instructions Recorded Confirmed Type oxyCODONE-APAP 10-325MG [Percocet 1 tab PO Q4H 11/05/24 11/05/24 History 10-325 mg] Allergies Allergy/AdvReac Type Severity Reaction Status Date / Time No Known Allergies Allergy Verified 11/05/24 12:03 Physical Examination Gen: AOx3, NAD VSS stable at this time Integument: No open lesions or sores are visualized throughout the cervical, thoracic or lumbar spine. Patient has bilateral Rocky wraps to the lower extremities for the ulcers present Palpation: Patient demonstrates tenderness with palpation midline and paraspinal posterior cervical region ROM: Patient has very limited range of motion with cervical extension along with lateral rotation Limited range of motion with shoulder elevation, right being worse than the left, he admits to a chronic shoulder problem is dealt with for many years. Abduction is also limited on the right compared to the left. 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 aureus Strep A 11/05/24 13:46 Blood Culture - Preliminary Blood 11/05/24 21:40 Anaerobic Culture - Preliminary Ankle - Right H & H 11/05/24 11/06/24 11/07/24 Range/Units 10:01 05:07 06:36 Hgb 12.0 L 10.7 L 10.8 L (13.0-17.5) gm/dL Hct 39.4 33.7 L 35.4 L (39.0-53.0) % Coagulation 11/05/24 Range/Units 10:01 INR 1.0 (<1.2) Result Diagrams: 11/07/24 06:36 11/08/24 04:51 Assessment and Plan Assessment: Neck pain Multilevel cervical spondylosis Multilevel cervical degenerative disc disease Bilateral upper extremity radiculopathy Bilateral upper extremity weakness Gait disturbance Chronic low back pain Multiple medical comorbidities Plan: Imaging: Patient stated that he had all his reports and MRI disc sent to our office. I was able to review a cervical MRI that was done in December 2023 at [facility]. Patient has very significant degenerative disc disease throughout the cervical spine, this is causing multilevel neuroforaminal and central canal stenosis Plan: I was able to discuss the case, this to include both physical exam findings and imaging studies and my attending Dr. Watts. No emergent orthopedic spine surgery recommended at this time I had a long conversation today with the patient at bedside regarding his cervical spine pathology and options for treatment, this to include surgical intervention. I explained him that the surgery that this patient would likely need is very extensive and there are many risk involved with this. With his current medical state and wounds to the bilateral lower extremities, he is a very poor candidate for surgical intervention. Discussed the importance of following the current treatment plan with the hope of healing the infections to the lower extremities and bettering his overall health Recommending that patient follow-up in our office in the next 2 to 4 weeks to hopefully review his spinal imaging to discuss options for treatment Pain control, continue with current medications DVT prophylaxis per primary medical service Weight-bear as tolerated, recommend walker PT/OT recommendations appreciated Other medical specialty recommendations appreciated Discharge planning: Our follow-up information will be placed in chart, please c ontact our service with any acute other questions regarding this patient Time with Patient: Greater than 30
--- NOTE | 2024-11-09 12:35 | P.PN ---
Subjective Progress Note Date: 11/09/24 HISTORY OF PRESENT ILLNESS: This is a 74-year-old male one of my patient with a previous medical history significant for hypertension and hypertensive cardiovascular disease, hyperlipidemia, obesity with obstructive sleep apnea, history of chronic alcohol use and dependence with the peripheral neuropathy, significant spondylosis of the lumbar spine with spinal stenosis and significant chronic low back pain, patient was recently hospitalized at [facility] about a month ago for MRSA cellulitis of the left lower extremity along with multiple wounds September 24 till October 01, 2024 he was found to have MRSA cellulitis and he has done well after that, he was following up with us as an outpatient in a week from the discharge, he was doing fine, apparently the patient was brought into the emergency department at [facility] today because the patient was not able to care for himself, and he lives currently in [facility], but he has not been taking care of his son at this time, whether or not he is taking his medications yet to be determined, patient was found to have a significant venous ulceration of the back of the right leg that appears to be clean at this time with minimal cellulitis, patient is not able to care for himself at this time, because of safety issues patient was admitted to hospital he was started on vancomycin due to his prior history of MRSA, and he was admitted to the hospital physical therapy/Occupational Therapy plus social psychologist consultation for discharge planning likely the patient will need to be placed in extended-care facility at this time 11/06: Patient is laying down in bed in no apparent distress, he denies any chest pain, shortness of breath, at this time, he was seen in consultation by infectious ease who recommended Aquacel silver to the right venous ulcer, continue short course of vancomycin, await the final result of the blood culture and wound culture, physical therapy evaluation, social psychologist consultation for d ischarge planning. 11/07: Patient appears to be a bit short of breath today, he is having some expir atory wheezes, discontinue IV fluid, discussed with the nursing staff, start the patient on Lasix 40 mg once every day potassium 20 mill equivalent once every day, start the patient on DuoNeb 3 mL nebulization 4 times every day, monitor the patient very closely, continue current treatment plan with vancomycin, continue local care, physical therapy and Occupational Therapy evaluation, discussed with the social psychologist the need for subacute rehabilitation she is trying to try to get the patient to one of the facility outside of [place] 11/08: Patient is feeling better today, his pain is in better control, he continues to get his Percocet every 4 hours, added pregabalin 150 mg orally twice every day yesterday, has been getting vancomycin and local care for his right venous ulcer, has been seen by physical therapy occupational therapy as well as social psychologist, patient's will likely be discharged hopefully on Monday, wound culture finalized to be MRSA that is sensitive to vancomycin. Continue current treatment plan, infectious disease following. 11/09: Patient sitting up in bed in no apparent distress, is feeling much better today, he was seen in consultation by spine surgery, who recommended continue current treatment plan, follow-up with Dr. Watts as an outpatient in 2 to 4 weeks due to significant spondylosis of the cervical spine as well as spinal stenosis with minimal upper extremity weakness. And recurrent falls. No evidence of myelopathy at this point in time. Will follow-up with the patient very closely, patient has been on vancomycin, infectious disease recommended for the patient to be switched to Bactrim double strength 1 tablet twice every day for 7 days on the day of discharge, patient is medically stable to be discharged to extended-care facility when prior authorization is available. REVIEW OF SYSTEMS: Constitutional: No documented fever, no chills, no night sweats. No weight change. positive for weakness , reports fatigue reports lethargy. Positive for daytime sleepiness. HEENT: No headache. No blurred vision or double vision, no loss of vision. No loss of Hearing, no ringing in the ears, no dizziness. No nasal drainage or congestion. No epistaxis. No sore throat. Lungs: No shortness of breath, no cough, no sputum production. No wheezing. Reports dyspnea with activity. Cardiovascular: No chest pain, positive for lower extremity edema. No palpitations. No paroxysmal nocturnal dyspnea. No orthopnea. No lightheadedness or dizziness. No syncopal episodes.Positive for nocturia. Abdominal: No abdominal pain. No nausea, vomiting. No diarrhea. No constipation. No bloody or tarry stools . No loss of appetite. Genitourinary: No dysuria, increased frequency, urgency. No urinary retention. Musculoskeletal: positive for neck pain, positive for chronic low back pain, positive for pain in both lower extremities with significant neuropathy, positive for gait dysfunction, positive for lower extremity weakness. Integumentary: venous stasis and stasis dermatitis and venous ulcer to the back of the right leg with a clean base. Neurologic: No aphasia. No facial droop. Positive for memory loss. No head injury. No headache, positive for paresthesia in both lower extremities, back to baseline. Psychiatric: Patient does appear to be somewhat depressed, appears to be a bit anxious, no suicidal thoughts or ideation. Endocrine: No abnormal blood sugars, increased weight. PHYSICAL EXAMINATION: General: This is a 74-year-old male who is resting in bed and does not appear to be in acute distress. HEENT: Head is atraumatic, normocephalic, pupils were equal round reactive to light and recommendation, extraocular muscle movement were intact, sclera nonicteric, conjunctivae were pale, mucous membranes of the mouth are somewhat dry. Neck: Supple, no JVP, normal carotid upstroke bilaterally, no lymphadenopathy. Chest: Decreased breath sounds at the bases, few rhonchi, no expiratory wheezes, no chest wall tenderness, no intercostal retractions. Heart: First heart sound is normal, second heart sound is normal there is systolic ejection murmur 2/6 located in the left sternal border. Abdomen: Soft, nontender, nondistended, positive bowel sounds. Extremities: There is chronic significant venous stasis of right lower extremity with a chronic skin changes dorsalis pedis +1 bilaterally Neurologic examination: Patient is awake alert and oriented X 3, cranial nerves II-12 appear grossly intact, muscle power were 4 out of 5 in upper extremities and 3out of 5 in bilateral lower extremities, deep tendon reflexes were depressed bilaterally. ASSESSMENT AND PLAN: 1. Right lower extremity venous ulcer with MRSA cellulitis.. Patient was started on Aquacel silver, continue to wrap the right lower extremity with Rocky wrap, change every other day, continue vancomycin with pharmacy to dose its peak and trough, infectious ease consultation appreciated. Patient is medically stable for discharge he will be started on Bactrim double strength 1 twice a day for 7 days on the day of discharge. 2. Mild anemia monitor the patient CBC over the next 24 hours. Multifactorial continue to monitor CBC. 3. Hypertension and hypertensive cardiovascular disease. Continue patient on metoprolol ER 50 mg once every day, losartan 100 mg orally once every day, monitor the patient blood pressure very closely. 4. Hyperlipidemia. Continue atorvastatin 40 mg daily. Keep LDL 55-70. 5. Vascular dementia. Appears to be stable at this time. 6. History of chronic alcohol use and dependence. patient has quit 7. 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 Continue patient on Percocet 10/325 mg 1 tablet every 4 hours as needed, continue Lyrica 150 mg orally twice every day. Patient was seen in consultation by spine surgery who recommended current treatment plan and follow- up as an outpatient for possible surgical intervention. 8. Peripheral neuropathy. Continue patient on pregabalin 150 mg orally 3 times every day. 9. DVT prophylaxis. Continue Lovenox 40 mg subcutaneously every 24 hours. 10. GI prophylaxis. Continue Protonix 40 mg orally once every day . 11. Insomnia. increase melatonin 10 mg at bedtime 13. Physical therapy evaluation for possible subacute rehabilitation. 12. compound worker consultation for discharge planning 13. Likely discharge on Monday. Objective - Vital Signs Vital signs: Vital Signs Temp 97.8 F 11/09/24 07:29 Pulse 69 11/09/24 07:29 Resp 20 11/09/24 07:29 BP 138/52 11/09/24 07:29 Pulse Ox 99 11/09/24 07:29 FiO2 Intake & Output 11/08/24 11/09/24 11/09/24 18:59 06:59 18:59 Intake Total 1460 Output Total 1050 700 Balance 410 -700 Intake: Oral 1460 Output: Urine 1050 700 Other: # Voids 1 3 # Bowel Movements 1 - Labs CBC & Chem 7: 11/07/24 06:36 11/08/24 04:51 Labs: Microbiology - Last 24 Hours (Table) 11/05/24 21:40 Gram Stain - Final Ankle - Right Wound Culture - Final Methicillin resist S. aureus Strep A 11/05/24 13:46 Blood Culture - Preliminary Blood 11/05/24 21:40 Anaerobic Culture - Preliminary Ankle - Right
--- NOTE | 2024-11-09 15:17 | P.PN ---
Subjective Progress Note Date: 11/09/24 Principal diagnosis: Reason for follow-up is right lower extremity venous ulcer and question of cellulitis Patient is a 74-year-old male with a past medical history of h ypertension osteoarthritis bilateral lower extremity venous stasis ulcer more marked on the right leg and history of recurrent cellulitis has been brought to the hospital for evaluation of weakness and pain to the lower extremity did have right leg ulcer and concern for possible cellulitis prompted this consultation.. On today's evaluation that is 11/09/2024, patient did not have any fever and den ies any chills, patient is breathing comfortably on room air, patient with no chest pain or cough patient did not have any abdominal pain nausea vomiting or any loose stools pain to lower extremity has decreased in intensity. Patient did not have a lab draw today Objective - Vital Signs Vital signs: Vital Signs Temp 98.4 F 11/09/24 13:16 Pulse 66 11/09/24 13:16 Resp 16 11/09/24 13:16 BP 138/74 11/09/24 13:16 Pulse Ox 97 11/09/24 13:16 FiO2 Intake & Output 11/08/24 11/09/24 11/09/24 18:59 06:59 18:59 Intake Total 1460 Output Total 1050 700 Balance 410 -700 Intake: Oral 1460 Output: Urine 1050 700 Other: # Voids 1 3 # Bowel Movements 1 - Exam GENERAL DESCRIPTION: An elderly male up in the chair RESPIRATORY SYSTEM: Unlabored breathing clear to auscultation Heart S1-S2 regular rhythm EXTREMITIES: Bilateral lower extremity swelling right leg wound has decreased in size minimal drainage on the dressing - Labs CBC & Chem 7: 11/07/24 06:36 11/08/24 04:51 Labs: Microbiology - Last 24 Hours (Table) 11/05/24 21:40 Gram Stain - Final Ankle - Right Wound Culture - Final Methicillin resist S. aureus Strep A 11/05/24 13:46 Blood Culture - Preliminary Blood 11/05/24 21:40 Anaerobic Culture - Preliminary Ankle - Right Assessment and Plan (1) Cellulitis of right leg Current Visit: Yes Status: Acute Code(s): L03.115 - CELLULITIS OF RIGHT LOWER LIMB SNOMED Code(s): 30965133042796103 (2) Venous stasis ulcer Current Visit: Yes Status: Acute Code(s): I83.009 - VARICOSE VEINS OF UNSP LOWER EXTREMITY W ULCER OF UNSP SITE; L97.909 - NON-PRS CHRONIC ULC UNSP PRT OF UNSP LOW LEG W UNSP SEVERITY SNOMED Code(s): 62700648 Plan: 1patient presented to hospital with weakness increasing pain to bilateral lower extremity also complaining of pain to the lower back and also have a chronic venous stasis of right lower extremity and more pain concern for possible cellulitis local cultures obtained in the ER which are currently pending 2-local wound care with dry Aquacel silver dressing followed by Rocky wrap from just above the toe to below the knee change q. 48-hour 3-local culture current growing MRSA for the patient is being treated with vancomycin pharmacy to dose while inpatient and will monitor his kidney function closely Dictation was produced using [employer] dictation software. please excuse any grammatical, word or spelling errors. Time with Patient: Less than 30
[2024-11-09] MEDS: PREGABALIN 75 MG CAP PO SCH (16:29)
[2024-11-09] MEDS: MELATONIN 5 MG TABLET PO SCH (20:23)
[2024-11-10 08:32] LABS: Anisocytosis Slight; Basophils % (A) 0 %; Eosinophils # (A) 0.4 k/uL (0-0.7); Eosinophils % (A) 5 %; HCT 37.6 % (39.0-53.0); HGB 11.1 gm/dL (13.0-17.5); Hypochromasia Moderate; Lymphocytes % (A) 29 %; MCH 26.6 pg (25.0-35.0); MCHC 29.4 g/dL (31.0-37.0); MCV 90.6 fL (80.0-100.0); Mean Platelet Volume 7.3; Monocytes # (A) 0.4 k/uL (0-1.0); Monocytes % (A) 6 %; Neutrophils % (A) 57 %; Platelet Count 390 k/uL (150-450); RBC 4.15 m/uL (4.30-5.90); RDW 16.9 % (11.5-15.5); WBC 7.1 k/uL (3.8-10.6)
[2024-11-10 08:47] LABS: ALT 12 U/L (4-49); AST 20 U/L (17-59); African American GFR (CKD) >90 (>60 ml/min/1.73 sqM); Albumin 3.5 g/dL (3.5-5.0); Albumin/Globulin Ratio 1.3; Alkaline Phosphatase 76 U/L (38-126); Anion Gap 5 mmol/L; Blood Urea Nitrogen 16 mg/dL (9-20); Calcium 8.6 mg/dL (8.4-10.2); Carbon Dioxide 31 mmol/L (22-30); Chloride 101 mmol/L (98-107); Globulin 2.6 g/dL; Glucose 95 mg/dL (74-99); Non-African American GFR(CKD) 85 (>60 ml/min/1.73 sqM); Potassium 4.5 mmol/L (3.5-5.1); Sodium 137 mmol/L (137-145); Total Bilirubin 0.4 mg/dL (0.2-1.3); Total Protein 6.1 g/dL (6.3-8.2)
--- NOTE | 2024-11-10 11:09 | P.PN ---
Subjective Progress Note Date: 11/10/24 HISTORY OF PRESENT ILLNESS: This is a 74-year-old male one of my patient with a previous medical history significant for hypertension and hypertensive cardiovascular disease, hyperlipidemia, obesity with obstructive sleep apnea, history of chronic alcohol use and dependence with the peripheral neuropathy, significant spondylosis of the lumbar spine with spinal stenosis and significant chronic low back pain, patient was recently hospitalized at [facility] about a month ago for MRSA cellulitis of the left lower extremity along with multiple wounds September 24 till October 01, 2024 he was found to have MRSA cellulitis and he has done well after that, he was following up with us as an outpatient in a week from the discharge, he was doing fine, apparently the patient was brought into the emergency department at [facility] today because the patient was not able to care for himself, and he lives currently in [facility], but he has not been taking care of his son at this time, whether or not he is taking his medications yet to be determined, patient was found to have a significant venous ulceration of the back of the right leg that appears to be clean at this time with minimal cellulitis, patient is not able to care for himself at this time, because of safety issues patient was admitted to hospital he was started on vancomycin due to his prior history of MRSA, and he was admitted to the hospital physical therapy/Occupational Therapy plus health and social care teacher consultation for discharge planning likely the patient will need to be placed in extended-care facility at this time 11/06: Patient is laying down in bed in no apparent distress, he denies any chest pain, shortness of breath, at this time, he was seen in consultation by infectious ease who recommended Aquacel silver to the right venous ulcer, continue short course of vancomycin, await the final result of the blood culture and wound culture, physical therapy evaluation, health and social care teacher consultation for d ischarge planning. 11/07: Patient appears to be a bit short of breath today, he is having some expir atory wheezes, discontinue IV fluid, discussed with the nursing staff, start the patient on Lasix 40 mg once every day potassium 20 mill equivalent once every day, start the patient on DuoNeb 3 mL nebulization 4 times every day, monitor the patient very closely, continue current treatment plan with vancomycin, continue local care, physical therapy and Occupational Therapy evaluation, discussed with the health and social care teacher the need for subacute rehabilitation she is trying to try to get the patient to one of the facility outside of [place] 11/08: Patient is feeling better today, his pain is in better control, he continues to get his Percocet every 4 hours, added pregabalin 150 mg orally twice every day yesterday, has been getting vancomycin and local care for his right venous ulcer, has been seen by physical therapy occupational therapy as well as health and social care teacher, patient's will likely be discharged hopefully on Monday, wound culture finalized to be MRSA that is sensitive to vancomycin. Continue current treatment plan, infectious disease following. 11/09: Patient sitting up in bed in no apparent distress, is feeling much better today, he was seen in consultation by spine surgery, who recommended continue current treatment plan, follow-up with Dr. Watts as an outpatient in 2 to 4 weeks due to significant spondylosis of the cervical spine as well as spinal stenosis with minimal upper extremity weakness. And recurrent falls. No evidence of myelopathy at this point in time. Will follow-up with the patient very closely, patient has been on vancomycin, infectious disease recommended for the patient to be switched to Bactrim double strength 1 tablet twice every day for 7 days on the day of discharge, patient is medically stable to be discharged to extended-care facility when prior authorization is available. 11/10: Patient is feeling better today, he has no fever or chills at this time, he had a bowel movement yesterday, he is currently on pregabalin 150 mg orally 3 times every day, continue with that, continue with Percocet every 4 hours as needed, follow-up with the patient very closely, awaiting the prior authorization for the patient to be transported to subacute rehabilitation at [facility] in [place], hopefully this will happen tomorrow morning. Th en at that point we will switch the patient to oral Bactrim double strength 1 tablet orally twice every day for 7 days. Continue with local care with Aquacel silver as indicated by infectious disease. REVIEW OF SYSTEMS: Constitutional: No documented fever, no chills, no night sweats. No weight c hange. positive for weakness , reports fatigue reports lethargy. Positive for daytime sleepiness. HEENT: No headache. No blurred vision or double vision, no loss of vision. No loss of Hearing, no ringing in the ears, no dizziness. No nasal drainage or congestion. No epistaxis. No sore throat. Lungs: No shortness of breath, no cough, no sputum production. No wheezing. Reports dyspnea with activity. Cardiovascular: No chest pain, positive for lower extremity edema. No palpitations. No paroxysmal nocturnal dyspnea. No orthopnea. No lightheadedness or dizziness. No syncopal episodes.Positive for nocturia. Abdominal: No abdominal pain. No nausea, vomiting. No diarrhea. No co nstipation. No bloody or tarry stools . No loss of appetite. Genitourinary: No dysuria, increased frequency, urgency. No urinary retention. Musculoskeletal: positive for neck pain, positive for chronic low back pain, positive for pain in both lower extremities with significant neuropathy, posit mayco for gait dysfunction, positive for lower extremity weakness. Integumentary: venous stasis and stasis dermatitis and venous ulcer to the back of the right leg with a clean base. Neurologic: No aphasia. No facial droop. Positive for memory loss. No head injury. No headache, positive for paresthesia in both lower extremities, back to baseline. Psychiatric: Patient does appear to be somewhat depressed, appears to be a bit anxious, no suicidal thoughts or ideation. Endocrine: No abnormal blood sugars, increased weight. PHYSICAL EXAMINATION: General: This is a 74-year-old male who is resting in bed and does not appear to be in acute distress. HEENT: Head is atraumatic, normocephalic, pupils were equal round reactive to light and recommendation, extraocular muscle movement were intact, sclera nonicteric, conjunctivae were pale, mucous membranes of the mouth are somewhat dry. Neck: Supple, no JVP, normal carotid upstroke bilaterally, no lymphadenopathy. Chest: Decreased breath sounds at the bases, few rhonchi, no expiratory wheezes, no chest wall tenderness, no intercostal retractions. Heart: First heart sound is normal, second heart sound is normal there is systolic ejection murmur 2/6 located in the left sternal border. Abdomen: Soft, nontender, nondistended, positive bowel sounds. Extremities: There is chronic significant venous stasis of right lower extremity with a chronic skin changes dorsalis pedis +1 bilaterally Neurologic examination: Patient is awake alert and oriented X 3, cranial nerves II-12 appear grossly intact, muscle power were 4 out of 5 in upper extremities and 3out of 5 in bilateral lower extremities, deep tendon reflexes were depressed bilaterally. ASSESSMENT AND PLAN: 1. Right lower extremity venous ulcer with MRSA cellulitis and SIRS. Patient was started on Aquacel silver, continue to wrap the right lower extremity with Rocky wrap, change every other day, continue vancomycin with pharmacy to dose its peak and trough, infectious ease consultation appreciated. Patient is medically stable for discharge he will be started on Bactrim double strength 1 twice a day for 7 days on the day of discharge. 2. Mild anemia monitor the patient CBC over the next 24 hours. Multifactorial continue to monitor CBC. 3. Hypertension and hypertensive cardiovascular disease. Continue patient on metoprolol ER 50 mg once every day, losartan 100 mg orally once every day, monitor the patient blood pressure very closely. 4. Hyperlipidemia. Continue atorvastatin 40 mg daily. Keep LDL 55-70. 5. Vascular dementia. Appears to be stable at this time. 6. History of chronic alcohol use and dependence. patient has quit 7. 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 Continue patient on Percocet 10/325 mg 1 tablet every 4 hours as needed, continue Lyrica 150 mg orally twice every day. Patient was seen in consultation by spine surgery who recommended current treatment plan and follow- up as an outpatient for possible surgical intervention. 8. Peripheral neuropathy. Continue patient on pregabalin 150 mg orally 3 times every day. 9. DVT prophylaxis. Continue Lovenox 40 mg subcutaneously every 24 hours. 10. GI prophylaxis. Continue Protonix 40 mg orally once every day . 11. Insomnia. continue melatonin 10 mg at bedtime 13. Physical therapy evaluation for possible subacute rehabilitation. 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 Likely discharge on Monday. Objective - Vital Signs Vital signs: Vital Signs Temp 97.8 F 11/10/24 07:14 Pulse 67 11/10/24 07:14 Resp 16 11/10/24 07:14 BP 118/70 11/10/24 07:14 Pulse Ox 99 11/10/24 07:14 FiO2 Intake & Output 11/09/24 11/10/24 11/10/24 18:59 06:59 18:59 Intake Total 1578 Output Total 1200 400 300 Balance 378 -400 -300 Intake: Oral 1578 Output: Urine 1200 400 300 Other: # Voids 1 # Bowel Movements 1 - Labs CBC & Chem 7: 11/10/24 08:07 11/10/24 08:05 Labs: Abnormal Lab Results - Last 24 Hours (Table) 11/10/24 11/10/24 Range/Units 08:05 08:07 RBC 4.15 L (4.30-5.90) m/uL Hgb 11.1 L (13.0-17.5) gm/dL Hct 37.6 L (39.0-53.0) % MCHC 29.4 L (31.0-37.0) g/dL RDW 16.9 H (11.5-15.5) % Carbon Dioxide 31 H (22-30) mmol/L Total Protein 6.1 L (6.3-8.2) g/dL Microbiology - Last 24 Hours (Table) 11/05/24 21:40 Gram Stain - Final Ankle - Right Wound Culture - Final Methicillin resist S. aureus Strep A
--- NOTE | 2024-11-10 21:36 | P.PN ---
Subjective Progress Note Date: 11/10/24 Principal diagnosis: Reason for follow-up is right lower extremity venous ulcer and question of cellulitis Patient is a 74-year-old male with a past medical history of h ypertension osteoarthritis bilateral lower extremity venous stasis ulcer more marked on the right leg and history of recurrent cellulitis has been brought to the hospital for evaluation of weakness and pain to the lower extremity did have right leg ulcer and concern for possible cellulitis prompted this consultation.. On today's evaluation that is 11/09/2024, patient did not have any fever and den ies any chills, patient is breathing comfortably on room air, patient with no chest pain or cough patient did not have any abdominal pain nausea vomiting or any loose stools still complaining of pain to the lower extremity but no worsening. The patient white count is 7.1 creatinine 0.90 blood culture remains to be negative Objective - Vital Signs Vital signs: Vital Signs Temp 97.7 F 11/10/24 19:43 Pulse 74 11/10/24 19:43 Resp 16 11/10/24 19:43 BP 131/65 11/10/24 19:43 Pulse Ox 99 11/10/24 19:43 FiO2 Intake & Output 11/10/24 11/10/24 11/11/24 06:59 18:59 06:59 Intake Total 1458 Output Total 400 1200 Balance -400 258 Intake: Oral 1458 Output: Urine 400 1200 Other: Voiding Method Toilet Urinal - Exam GENERAL DESCRIPTION: An elderly male up in bed in no distress RESPIRATORY SYSTEM: Unlabored breathing , decreased breath sounds at bases HEART: S1 S2 regular rate and rhythm , ABDOMEN: Soft , no tenderness EXTREMITIES: Bilateral lower extremity currently wrapped no drainage - Labs CBC & Chem 7: 11/10/24 08:07 11/10/24 08:05 Labs: Abnormal Lab Results - Last 24 Hours (Table) 11/10/24 11/10/24 Range/Units 08:05 08:07 RBC 4.15 L (4.30-5.90) m/uL Hgb 11.1 L (13.0-17.5) gm/dL Hct 37.6 L (39.0-53.0) % MCHC 29.4 L (31.0-37.0) g/dL RDW 16.9 H (11.5-15.5) % Carbon Dioxide 31 H (22-30) mmol/L Total Protein 6.1 L (6.3-8.2) g/dL Microbiology - Last 24 Hours (Table) 11/05/24 13:46 Blood Culture - Final Blood 11/05/24 21:40 Anaerobic Culture - Final Ankle - Right Assessment and Plan (1) Cellulitis of right leg Current Visit: Yes Status: Acute Code(s): L03.115 - CELLULITIS OF RIGHT LOWER LIMB SNOMED Code(s): 68908336773590402 (2) Venous stasis ulcer Current Visit: Yes Status: Acute Code(s): I83.009 - VARICOSE VEINS OF UNSP LOWER EXTREMITY W ULCER OF UNSP SITE; L97.909 - NON-PRS CHRONIC ULC UNSP PRT OF UNSP LOW LEG W UNSP SEVERITY SNOMED Code(s): 34111720 Plan: 1patient presented to hospital with weakness increasing pain to bilateral lower extremity also complaining of pain to the lower back and also have a chronic venous stasis of right lower extremity and more pain concern for possible cellulitis local cultures obtained in the ER which are currently pending 2-local wound care with dry Aquacel silver dressing followed by Rocky wrap from ju st above the toe to below the knee change q. 48-hour 3-local culture current growing MRSA 4patient to continue with vancomycin pharmacy to dose while inpatient and will transition to Bactrim DS on discharge Dictation was produced using bitmovin dictation software. please excuse any grammatical, word or spelling errors.
[2024-11-10] MEDS: VANCOMYCIN TROUGH DUE 1 EACH MISC MISCELLANE ONE (22:19)
[2024-11-11 06:47] LABS: ALT 10 U/L (4-49); AST 18 U/L (17-59); Albumin 2.9 g/dL (3.5-5.0); Alkaline Phosphatase 66 U/L (38-126); Blood Urea Nitrogen 20 mg/dL (9-20); Calcium 8.7 mg/dL (8.4-10.2); Chloride 97 mmol/L (98-107); Glucose 99 mg/dL (74-99); Potassium 4.4 mmol/L (3.5-5.1); Sodium 135 mmol/L (137-145)
[2024-11-11 07:24] LABS: African American GFR (CKD) >90 (>60 ml/min/1.73 sqM); Albumin/Globulin Ratio 1.2; Anion Gap 6 mmol/L; Carbon Dioxide 32 mmol/L (22-30); Globulin 2.5 g/dL; Non-African American GFR(CKD) 87 (>60 ml/min/1.73 sqM); Total Bilirubin 0.3 mg/dL (0.2-1.3); Total Protein 5.4 g/dL (6.3-8.2)
[2024-11-11 08:26] LABS: Basophils # (A) 0.04 X 10*3/uL (0.00-0.10); Basophils % (A) 0.6 %; Eosinophils # (A) 0.34 X 10*3/uL (0.04-0.35); Eosinophils % (A) 5.5 %; HCT 32.2 % (39.6-50.0); Lymphocytes # (A) 1.99 X 10*3/uL (0.90-5.00); Lymphocytes % (A) 32.1 %; MCH 27.5 pg (27.0-32.0); MCHC 31.1 g/dL (32.0-37.0); MCV 88.7 FL (80.0-97.0); Mean Platelet Volume 11.6 FL (9.5-12.2); Monocytes # (A) 0.89 X 10*3/uL (0.20-1.00); Monocytes % (A) 14.4 %; NRBC Per 100 WBC 0 X 10*3/uL (0.00-0.01); Neutrophils # (A) 2.92 X 10*3/uL (1.80-7.70); Neutrophils % (A) 47.1 %; Platelet Count 222 X 10*3/uL (140-440); RBC 3.63 X 10*6/uL (4.40-5.60)
--- NOTE | 2024-11-11 09:47 | P.DS ---
Providers Date of admission: 11/05/24 13:48 Expected date of discharge: 11/11/24 Attending physician: Johnny Lane Consults: 11/05/24 13:09 Consult Physician Urgent Consulting Provider: Matteo Medina Consult Reason/Comments: Venous stasis ulcer, cellulitis Do you want consulting provider notified?: Yes 11/08/24 15:37 Consult Physician Routine Consulting Provider: Madhav Watts Consult Reason/Comments: Spondylosis cervical spine Do you want consulting provider notified?: Yes Primary care physician: Johnny Lane [facility] Course: HISTORY OF PRESENT ILLNESS: This is a 74-year-old male one of my patient with a previous medical history significant for hypertension and hypertensive cardiovascular disease, hyperlipidemia, obesity with obstructive sleep apnea, history of chronic alcohol use and dependence with the peripheral neuropathy, significant spondylosis of the lumbar spine with spinal stenosis and significant chronic low back pain, patient was recently hospitalized at [facility] about a month ago for MRSA cellulitis of the left lower extremity along with multiple wounds September 24 till October 01, 2024 he was found to have MRSA cellulitis and he has done well after that, he was following up with us as an outpatient in a week from the discharge, he was doing fine, apparently the patient was brought into the emergency department at [facility] today because the patient was not able to care for himself, and he lives currently in [facility], but he has not been taking care of his son at this time, whether or not he is taking his medications yet to be determined, patient was found to have a significant venous ulceration of the back of the right leg that appears to be clean at this time with minimal cellulitis, patient is not able to care for himself at this time, because of safety issues patient was admitted to hospital he was started on vancomycin due to his prior history of MRSA, and he was admitted to the hospital physical therapy/Occupational Therapy plus social work faculty member consultation for discharge planning likely the patient will need to be placed in extended-care facility at this time 11/06: Patient is laying down in bed in no apparent distress, he denies any chest pain, shortness of breath, at this time, he was seen in consultation by infectious ease who recommended Aquacel silver to the right venous ulcer, continue short course of vancomycin, await the final result of the blood culture and wound culture, physical therapy evaluation, social work faculty member consultation for discharge planning. 11/07: Patient appears to be a bit short of breath today, he is having some expiratory wheezes, discontinue IV fluid, discussed with the nursing staff, start the patient on Lasix 40 mg once every day potassium 20 mill equivalent once every day, start the patient on DuoNeb 3 mL nebulization 4 times every day, monitor the patient very closely, continue current treatment plan with vancomycin, continue local care, physical therapy and Occupational Therapy evaluation, discussed with the social work faculty member the need for subacute rehabilitation she is trying to try to get the patient to one of the facility outside of [place] 11/08: Patient is feeling better today, his pain is in better control, he continues to get his Percocet every 4 hours, added pregabalin 150 mg orally twice every day yesterday, has been getting vancomycin and local care for his right venous ulcer, has been seen by physical therapy occupational therapy as well as social work faculty member, patient's will likely be discharged hopefully on Monday, wound culture finalized to be MRSA that is sensitive to vancomycin. Continue current treatment plan, infectious disease following. 11/09: Patient sitting up in bed in no apparent distress, is feeling much better today, he was seen in consultation by spine surgery, who recommended continue current treatment plan, follow-up with Dr. Watts as an outpatient in 2 to 4 weeks due to significant spondylosis of the cervical spine as well as spinal stenosis with minimal upper extremity weakness. And recurrent falls. No evidence of myelopathy at this point in time. Will follow-up with the patient very closely, patient has been on vancomycin, infectious disease recommended for the patient to be switched to Bactrim double strength 1 tablet twice every day for 7 days on the day of discharge, patient is medically stable to be discharged to extended-care facility when prior authorization is available. 11/10: Patient is feeling better today, he has no fever or chills at this time, he had a bowel movement yesterday, he is currently on pregabalin 150 mg orally 3 times every day, continue with that, continue with Percocet every 4 hours as needed, follow-up with the patient very closely, awaiting the prior authorization for the patient to be transported to subacute rehabilitation at [facility] in [place], hopefully this will happen tomorrow morning. Then at that point we will switch the patient to oral Bactrim double strength 1 tablet orally twice every day for 7 days. Continue with local care with Aquacel silver as indicated by infectious disease. 11/11: Patient continues to feel well. He has no new concerns. Vital signs have been stable and patient has been afebrile. Repeat blood work reveals hemoglobin of 10, sodium 135, potassium 4.4, creatinine 0.85. Vancomycin trough is at 24.5. Pharmacy is dosing vancomycin until patient is transition to oral Bactrim. Patient will be discharged to rehab today in stable condition. DISCHARGE DIAGNOSES: 1. Right lower extremity venous ulcer with MRSA cellulitis and SIRS. 2. Mild anemia, multifactorial. 3. Hypertension and hypertensive cardiovascular disease. . 4. Hyperlipidemia. 5. Vascular dementia. 6. History of chronic alcohol use and dependence. patient has quit 7. 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 8. Peripheral neuropathy. 9. Insomnia. Greater than 35 minutes was utilized and coordinating patient's discharge. Impression and plan of care have been directed as dictated by the signing physician. Suzan Willingham nurse practitioner acting as scribe for signing physician. Patient Condition at Discharge: Fair Plan - Discharge Summary Discharge Rx Participant: Yes New Discharge Prescriptions: New Ipratropium-Albuterol Nebulize [Duoneb 0.5 mg-3 mg/3 ml Soln] 3 ml INHALATION RT-QID PRN each PRN Reason: Shortness Of Breath Or Wheezing Atorvastatin [Lipitor] 40 mg PO HS tab Aspirin 81 mg PO DAILY tab Lactulose [Cephulac] 20 gm PO BID ml Docusate [Colace] 100 mg PO BID cap Losartan [Cozaar] 100 mg PO DAILY tab Potassium Chloride ER [K-Dur 20] 20 meq PO DAILY tab Furosemide [Lasix] 40 mg PO DAILY tab Pregabalin [Lyrica] 150 mg PO TID@0000,0800,1600 #9 cap Melatonin 10 mg PO HS tab Pantoprazole [Protonix] 40 mg PO AC-BRKFST tab Metoprolol Succinate (ER) [Toprol XL] 50 mg PO DAILY tab Sulfamethox-Tmp 800-160Mg [Bactrim DS 800-160 mg] 1 tab PO Q12HR #14 tab Changed oxyCODONE-APAP 10-325MG [Percocet 10-325 mg] 1 tab PO Q4H #18 tab Discharge Medication List Aspirin 81 mg PO DAILY tab 11/11/24 [Rx] Atorvastatin [Lipitor] 40 mg PO HS tab 11/11/24 [Rx] Docusate [Colace] 100 mg PO BID cap 11/11/24 [Rx] Furosemide [Lasix] 40 mg PO DAILY tab 11/11/24 [Rx] Ipratropium-Albuterol Nebulize [Duoneb 0.5 mg-3 mg/3 ml Soln] 3 ml INHALATION RT-QID PRN each 11/11/24 [Rx] Lactulose [Cephulac] 20 gm PO BID ml 11/11/24 [Rx] Losartan [Cozaar] 100 mg PO DAILY tab 11/11/24 [Rx] Melatonin 10 mg PO HS tab 11/11/24 [Rx] Metoprolol Succinate (ER) [Toprol XL] 50 mg PO DAILY tab 11/11/24 [Rx] Pantoprazole [Protonix] 40 mg PO AC-BRKFST tab 11/11/24 [Rx] Potassium Chloride ER [K-Dur 20] 20 meq PO DAILY tab 11/11/24 [Rx] Pregabalin [Lyrica] 150 mg PO TID@0000,0800,1600 #9 cap 11/11/24 [Rx] Sulfamethox-Tmp 800-160Mg [Bactrim DS 800-160 mg] 1 tab PO Q12HR #14 tab 11/11/24 [Rx] oxyCODONE-APAP 10-325MG [Percocet 10-325 mg] 1 tab PO Q4H #18 tab 11/11/24 [Rx] Follow up Appointment(s)/Referral(s): Johnny Lane MD [Primary Care Provider] - 1 Week (After discharge from rehab) Discharge Disposition: TRANSFER TO SNF/ECF
[2024-11-11] MEDS: SULFAMETHOX-TMP 800-160MG 1 EACH TAB PO SCH (13:28)
--- NOTE | 2024-11-11 15:33 | P.PN ---
Subjective Progress Note Date: 11/11/24 Principal diagnosis: Reason for follow-up is right lower extremity venous ulcer and question of cellulitis Patient is a 74-year-old male with a past medical history of h ypertension osteoarthritis bilateral lower extremity venous stasis ulcer more marked on the right leg and history of recurrent cellulitis has been brought to the hospital for evaluation of weakness and pain to the lower extremity did have right leg ulcer and concern for possible cellulitis prompted this consultation.. On today's evaluation that is 11/11/2024, patient has been afebrile, patient is breathing comfortably and is currently on room air, patient denies having any significant cough no chest pain, patient denies nausea vomiting or diarrhea and no abdominal pain or any worsening pain to the lower extremity. Patient white count 6.80, creatinine 0.85 Objective - Vital Signs Vital signs: Vital Signs Temp 98.4 F 11/11/24 11:47 Pulse 64 11/11/24 11:47 Resp 20 11/11/24 11:47 BP 109/69 11/11/24 11:47 Pulse Ox 98 11/11/24 11:47 FiO2 Intake & Output 11/10/24 11/11/24 11/11/24 18:59 06:59 18:59 Intake Total 1458 480 Output Total 1200 900 Balance 258 -420 Intake: Oral 1458 480 Output: Urine 1200 900 Other: Voiding Method Toilet Toilet Urinal Urinal - Exam GENERAL DESCRIPTION: An elderly male up in bed in no distress RESPIRATORY SYSTEM: Unlabored breathing , decreased breath sounds at bases HEART: S1 S2 regular rate and rhythm , ABDOMEN: Soft , no tenderness EXTREMITIES: Bilateral lower extremity currently wrapped no drainage - Labs CBC & Chem 7: 11/11/24 05:08 11/11/24 05:08 Labs: Abnormal Lab Results - Last 24 Hours (Table) 11/11/24 11/11/24 Range/Units 05:08 05:08 RBC 3.63 L (4.40-5.60) X 10*6/uL Hgb 10.0 L (13.0-17.0) g/dL Hct 32.2 L (39.6-50.0) % MCHC 31.1 L (32.0-37.0) g/dL RDW 17.0 H (11.5-14.5) % Sodium 135 L (137-145) mmol/L Chloride 97 L (98-107) mmol/L Carbon Dioxide 32 H (22-30) mmol/L Total Protein 5.4 L (6.3-8.2) g/dL Albumin 2.9 L (3.5-5.0) g/dL Microbiology - Last 24 Hours (Table) 11/05/24 13:46 Blood Culture - Final Blood 11/05/24 21:40 Anaerobic Culture - Final Ankle - Right Assessment and Plan (1) Cellulitis of right leg Current Visit: Yes Status: Acute Code(s): L03.115 - CELLULITIS OF RIGHT LOWER LIMB SNOMED Code(s): 08981341863325068 (2) Venous stasis ulcer Current Visit: Yes Status: Acute Code(s): I83.009 - VARICOSE VEINS OF UNSP LOWER EXTREMITY W ULCER OF UNSP SITE; L97.909 - NON-PRS CHRONIC ULC UNSP PRT OF UNSP LOW LEG W UNSP SEVERITY SNOMED Code(s): 63519552 Plan: 1patient presented to hospital with weakness increasing pain to bilateral lower extremity also complaining of pain to the lower back and also have a chronic venous stasis of right lower extremity and more pain concern for possible cellulitis local cultures obtained in the ER which are currently pending 2-local wound care with dry Aquacel silver dressing followed by Rocky wrap from just above the toe to below the knee change q. 48-hour 3-local culture current growing MRSA, patient lost his IV antibiotic switched o navdeep to Bactrim DS plan is for a 7-day course on discharge Dictation was produced using [employer] software. please excuse any grammatical, word or spelling errors.
--- NOTE | 2024-11-11 18:03 | P.PN ---
Subjective Progress Note Date: 11/11/24 HISTORY OF PRESENT ILLNESS: This is a 74-year-old male one of my patient with a previous medical history significant for hypertension and hypertensive cardiovascular disease, hyperlipidemia, obesity with obstructive sleep apnea, history of chronic alcohol use and dependence with the peripheral neuropathy, significant spondylosis of the lumbar spine with spinal stenosis and significant chronic low back pain, patient was recently hospitalized at [facility] about a month ago for MRSA cellulitis of the left lower extremity along with multiple wounds September 24 till October 01, 2024 he was found to have MRSA cellulitis and he has done well after that, he was following up with us as an outpatient in a week from the discharge, he was doing fine, apparently the patient was brought into the emergency department at [facility] today because the patient was not able to care for himself, and he lives currently in [facility], but he has not been taking care of his son at this time, whether or not he is taking his medications yet to be determined, patient was found to have a significant venous ulceration of the back of the right leg that appears to be clean at this time with minimal cellulitis, patient is not able to care for himself at this time, because of safety issues patient was admitted to hospital he was started on vancomycin due to his prior history of MRSA, and he was admitted to the hospital physical therapy/Occupational Therapy plus social media developer consultation for discharge planning likely the patient will need to be placed in extended-care facility at this time 11/06: Patient is laying down in bed in no apparent distress, he denies any chest pain, shortness of breath, at this time, he was seen in consultation by infectious ease who recommended Aquacel silver to the right venous ulcer, continue short course of vancomycin, await the final result of the blood culture and wound culture, physical therapy evaluation, social media developer consultation for d ischarge planning. 11/07: Patient appears to be a bit short of breath today, he is having some expir atory wheezes, discontinue IV fluid, discussed with the nursing staff, start the patient on Lasix 40 mg once every day potassium 20 mill equivalent once every day, start the patient on DuoNeb 3 mL nebulization 4 times every day, monitor the patient very closely, continue current treatment plan with vancomycin, continue local care, physical therapy and Occupational Therapy evaluation, discussed with the social media developer the need for subacute rehabilitation she is trying to try to get the patient to one of the facility outside of [place] 11/08: Patient is feeling better today, his pain is in better control, he continues to get his Percocet every 4 hours, added pregabalin 150 mg orally twice every day yesterday, has been getting vancomycin and local care for his right venous ulcer, has been seen by physical therapy occupational therapy as well as social media developer, patient's will likely be discharged hopefully on Monday, wound culture finalized to be MRSA that is sensitive to vancomycin. Continue current treatment plan, infectious disease following. 11/09: Patient sitting up in bed in no apparent distress, is feeling much better today, he was seen in consultation by spine surgery, who recommended continue current treatment plan, follow-up with Dr. Watts as an outpatient in 2 to 4 weeks due to significant spondylosis of the cervical spine as well as spinal stenosis with minimal upper extremity weakness. And recurrent falls. No evidence of myelopathy at this point in time. Will follow-up with the patient very closely, patient has been on vancomycin, infectious disease recommended for the patient to be switched to Bactrim double strength 1 tablet twice every day for 7 days on the day of discharge, patient is medically stable to be discharged to extended-care facility when prior authorization is available. 11/10: Patient is feeling better today, he has no fever or chills at this time, he had a bowel movement yesterday, he is currently on pregabalin 150 mg orally 3 times every day, continue with that, continue with Percocet every 4 hours as needed, follow-up with the patient very closely, awaiting the prior authorization for the patient to be transported to subacute rehabilitation at [facility] in [place], hopefully this will happen tomorrow morning. Th en at that point we will switch the patient to oral Bactrim double strength 1 tablet orally twice every day for 7 days. Continue with local care with Aquacel silver as indicated by infectious disease. 11/11: Patient is sitting up in bed in no apparent distress, he stated that he is still very weak, he is not able to go back home, [facility] declined the patient admission to subacute rehabilitation due to nonparticipation in his health insurance I spoke with the social media developer about trying to send her to different places and hopefully will try to get the patient out of the hospital in the next 24 hours. REVIEW OF SYSTEMS: Constitutional: No documented fever, no chills, no night sweats. No weight change. positive for weakness , reports fatigue reports lethargy. Positive for daytime sleepiness. HEENT: No headache. No blurred vision or double vision, no loss of vision. No loss of Hearing, no ringing in the ears, no dizziness. No nasal drainage or congestion. No epistaxis. No sore throat. Lungs: No shortness of breath, no cough, no sputum production. No wheezing. Reports dyspnea with activity. Cardiovascular: No chest pain, positive for lower extremity edema. No palpita tions. No paroxysmal nocturnal dyspnea. No orthopnea. No lightheadedness or dizziness. No syncopal episodes.Positive for nocturia. Abdominal: No abdominal pain. No nausea, vomiting. No diarrhea. No constipation. No bloody or tarry stools . No loss of appetite. Genitourinary: No dysuria, increased frequency, urgency. No urinary retention. Musculoskeletal: positive for neck pain, positive for chronic low back pain, positive for pain in both lower extremities with significant neuropathy, positive for gait dysfunction, positive for lower extremity weakness. Integumentary: venous stasis and stasis dermatitis and venous ulcer to the back of the right leg with a clean base. Neurologic: No aphasia. No facial droop. Positive for memory loss. No head injury. No headache, positive for paresthesia in both lower extremities, back to baseline. Psychiatric: Patient does appear to be somewhat depressed, appears to be a bit anxious, no suicidal thoughts or ideation. Endocrine: No abnormal blood sugars, increased weight. PHYSICAL EXAMINATION: General: This is a 74-year-old male who is resting in bed and does not appear to be in acute distress. HEENT: Head is atraumatic, normocephalic, pupils were equal round reactive to light and recommendation, extraocular muscle movement were intact, sclera nonicteric, conjunctivae were pale, mucous membranes of the mouth are somewhat dry. Neck: Supple, no JVP, normal carotid upstroke bilaterally, no lymphadenopathy. Chest: Decreased breath sounds at the bases, few rhonchi, no expiratory wheezes, no chest wall tenderness, no intercostal retractions. Heart: First heart sound is normal, second heart sound is normal there is systolic ejection murmur 2/6 located in the left sternal border. Abdomen: Soft, nontender, nondistended, positive bowel sounds. Extremities: There is chronic significant venous stasis of right lower extremity with a chronic skin changes dorsalis pedis +1 bilaterally Neurologic examination: Patient is awake alert and oriented X 3, cranial nerves II-12 appear grossly intact, muscle power were 4 out of 5 in upper extremities and 3out of 5 in bilateral lower extremities, deep tendon reflexes were depressed bilaterally. ASSESSMENT AND PLAN: 1. Right lower extremity venous ulcer with MRSA cellulitis and SIRS. Patient was started on Aquacel silver, continue to wrap the right lower extremity with Rocky wrap, change every other day, continue Bactrim double strength 1 tablet orally twice every day for 7 days. Discontinue vancomycin continue local care. 2. Mild anemia monitor the patient CBC over the next 24 hours. Multifactorial continue to monitor CBC. 3. Hypertension and hypertensive cardiovascular disease. Continue patient on metoprolol ER 50 mg once every day, losartan 100 mg orally once every day, monitor the patient blood pressure very closely. 4. Hyperlipidemia. Continue atorvastatin 40 mg daily. Keep LDL 55-70. 5. Vascular dementia. Appears to be stable at this time. 6. History of chronic alcohol use and dependence. patient has quit 7. 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 Continue patient on Percocet 10/325 mg 1 tablet every 4 hours as needed, continue Lyrica 150 mg orally twice every day. Patient was seen in consultation by spine surgery who recommended current treatment plan and follow- up as an outpatient for possible surgical intervention. 8. Peripheral neuropathy. Continue patient on pregabalin 150 mg orally 3 times every day. 9. DVT prophylaxis. Continue Lovenox 40 mg subcutaneously every 24 hours. 10. GI prophylaxis. Continue Protonix 40 mg orally once every day . 11. Insomnia. continue melatonin 10 mg at bedtime 13. Physical therapy evaluation for possible subacute rehabilitation. 12. toll test worker consultation for discharge planning 13. Likely discharge patient tomorrow we are still waiting the prior authorization. Objective - Vital Signs Vital signs: Vital Signs Temp 98.4 F 11/11/24 11:47 Pulse 64 11/11/24 11:47 Resp 20 11/11/24 11:47 BP 109/69 11/11/24 11:47 Pulse Ox 98 11/11/24 11:47 FiO2 Intake & Output 11/10/24 11/11/24 11/11/24 18:59 06:59 18:59 Intake Total 1458 480 Output Total 1200 900 700 Balance 258 -420 -700 Intake: Oral 1458 480 Output: Urine 1200 900 700 Other: Voiding Method Toilet Toilet Urinal Urinal - Labs CBC & Chem 7: 11/11/24 05:08 11/11/24 05:08 Labs: Abnormal Lab Results - Last 24 Hours (Table) 11/11/24 11/11/24 Range/Units 05:08 05:08 RBC 3.63 L (4.40-5.60) X 10*6/uL Hgb 10.0 L (13.0-17.0) g/dL Hct 32.2 L (39.6-50.0) % MCHC 31.1 L (32.0-37.0) g/dL RDW 17.0 H (11.5-14.5) % Sodium 135 L (137-145) mmol/L Chloride 97 L (98-107) mmol/L Carbon Dioxide 32 H (22-30) mmol/L Total Protein 5.4 L (6.3-8.2) g/dL Albumin 2.9 L (3.5-5.0) g/dL Microbiology - Last 24 Hours (Table) 11/05/24 13:46 Blood Culture - Final Blood
[2024-11-11] MEDS ORDERED: VANCOMYCIN 2,000 MG in SODIUM CHLORIDE 0.9% 500 ML 500 ML IVPB SCH (23:00)
--- NOTE | 2024-11-12 14:59 | P.PN ---
Subjective Progress Note Date: 11/12/24 Principal diagnosis: Reason for follow-up is right lower extremity venous ulcer and question of cellulitis Patient is a 74-year-old male with a past medical history of h ypertension osteoarthritis bilateral lower extremity venous stasis ulcer more marked on the right leg and history of recurrent cellulitis has been brought to the hospital for evaluation of weakness and pain to the lower extremity did have right leg ulcer and concern for possible cellulitis prompted this consultation.. On today's evaluation that is 11/12/2024, Patient is afebrile this morning patie nt denies having any chest pain complains of some shortness of breath last night denies any cough or sputum production still following up with neurology multiple mention getting better.Patient did not have lab draw today Objective - Vital Signs Vital signs: Vital Signs Temp 97.7 F 11/12/24 07:10 Pulse 71 11/12/24 08:00 Resp 18 11/12/24 08:00 BP 108/51 11/12/24 07:10 Pulse Ox 96 11/12/24 07:10 FiO2 Intake & Output 11/11/24 11/12/24 11/12/24 18:59 06:59 18:59 Intake Total 480 Output Total 700 1000 Balance -700 -520 Intake: Oral 480 Output: Urine 700 1000 Other: Voiding Method Toilet Toilet Toilet Urinal Urinal Urinal - Exam GENERAL DESCRIPTION: An elderly male up in bed in no distress RESPIRATORY SYSTEM: Unlabored breathing , decreased breath sounds at bases HEART: S1 S2 regular rate and rhythm , ABDOMEN: Soft , no tenderness EXTREMITIES: Bilateral lower extremity currently wrapped no drainage - Labs CBC & Chem 7: 11/11/24 05:08 11/11/24 05:08 Assessment and Plan (1) Cellulitis of right leg Current Visit: Yes Status: Acute Code(s): L03.115 - CELLULITIS OF RIGHT LOWER LIMB SNOMED Code(s): 41210233728600963 (2) Venous stasis ulcer Current Visit: Yes Status: Acute Code(s): I83.009 - VARICOSE VEINS OF UNSP LOWER EXTREMITY W ULCER OF UNSP SITE; L97.909 - NON-PRS CHRONIC ULC UNSP PRT OF UNSP LOW LEG W UNSP SEVERITY SNOMED Code(s): 99724290 Plan: 1patient presented to hospital with weakness increasing pain to bilateral lower extremity also complaining of pain to the lower back and also have a chronic venous stasis of right lower extremity and more pain concern for possible cellulitis local cultures obtained in the ER which are currently pending 2-local wound care with dry Aquacel silver dressing followed by Rocky wrap from just above the toe to below the knee change q. 48-hour 3-local culture current growing MRSA, and is currently being treated Bactrim DS and monitor clinical course closely Dictation was produced using [employer] dictation software. please excuse any grammatical, word or spelling errors. Time with Patient: Less than 30
[2024-11-12 17:01] VITALS: BMI 35.9
[2024-11-13] MEDS: BACLOFEN 10 MG TAB PO SCH (10:52)
--- NOTE | 2024-11-13 12:30 | P.PN ---
Subjective Progress Note Date: 11/13/24 Principal diagnosis: Reason for follow-up is right lower extremity venous ulcer and question of cellulitis Patient is a 74-year-old male with a past medical history of h ypertension osteoarthritis bilateral lower extremity venous stasis ulcer more marked on the right leg and history of recurrent cellulitis has been brought to the hospital for evaluation of weakness and pain to the lower extremity did have right leg ulcer and concern for possible cellulitis prompted this consultation.. On today's evaluation that is 11/13/2024,the patient denies any fever or any chi lls, patient is breathing comfortably on room air, the patient denies chest pain was complaining of some shortness of breath last night and no significant cough, patient denies abdominal pain, no nausea vomiting or diarrhea. No new lab has been repeated today Objective - Vital Signs Vital signs: Vital Signs Temp 98.5 F 11/13/24 06:17 Pulse 67 11/13/24 06:17 Resp 12 11/13/24 06:17 BP 101/66 11/13/24 06:17 Pulse Ox 96 11/13/24 06:17 FiO2 Intake & Output 11/12/24 11/13/24 11/13/24 18:59 06:59 18:59 Intake Total 1200 540 Output Total 1000 700 Balance 200 -160 Weight 113.398 kg Intake: Oral 1200 540 Output: Urine 1000 700 Other: Voiding Method Toilet Toilet Urinal Urinal - Exam GENERAL DESCRIPTION: An elderly male up in bed in no distress RESPIRATORY SYSTEM: Unlabored breathing , decreased breath sounds at bases HEART: S1 S2 regular rate and rhythm , ABDOMEN: Soft , no tenderness EXTREMITIES: Bilateral lower extremity currently wrapped no drainage - Labs CBC & Chem 7: 11/11/24 05:08 11/11/24 05:08 Assessment and Plan (1) Cellulitis of right leg Current Visit: Yes Status: Acute Code(s): L03.115 - CELLULITIS OF RIGHT LOWER LIMB SNOMED Code(s): 96661453959669625 (2) Venous stasis ulcer Current Visit: Yes Status: Acute Code(s): I83.009 - VARICOSE VEINS OF UNSP LOWER EXTREMITY W ULCER OF UNSP SITE; L97.909 - NON-PRS CHRONIC ULC UNSP PRT OF UNSP LOW LEG W UNSP SEVERITY SNOMED Code(s): 51034438 Plan: 1patient presented to hospital with weakness increasing pain to bilateral lower extremity also complaining of pain to the lower back and also have a chronic venous stasis of right lower extremity and more pain concern for possible cellulitis local cultures obtained in the ER which are currently pending 2-local wound care with dry Aquacel silver dressing followed by Rocky wrap from just above the toe to below the knee change q. 48-hour 3-local culture did grew MRSA with the patient received adequate IV vancomycin currently on Bactrim DS with the patient has been tolerating plan is for short course on discharge Dictation was produced using [employer] dictation software. please excuse any grammatical, word or spelling errors. Time with Patient: Less than 30
--- NOTE | 2024-11-13 14:27 | P.PN ---
Subjective Progress Note Date: 11/12/24 HISTORY OF PRESENT ILLNESS: This is a 74-year-old male one of my patient with a previous medical history significant for hypertension and hypertensive cardiovascular disease, hyperlipidemia, obesity with obstructive sleep apnea, history of chronic alcohol use and dependence with the peripheral neuropathy, significant spondylosis of the lumbar spine with spinal stenosis and significant chronic low back pain, patient was recently hospitalized at [facility] about a month ago for MRSA cellulitis of the left lower extremity along with multiple wounds September 24 till October 01, 2024 he was found to have MRSA cellulitis and he has done well after that, he was following up with us as an outpatient in a week from the discharge, he was doing fine, apparently the patient was brought into the emergency department at [facility] today because the patient was not able to care for himself, and he lives currently in [facility], but he has not been taking care of his son at this time, whether or not he is taking his medications yet to be determined, patient was found to have a significant venous ulceration of the back of the right leg that appears to be clean at this time with minimal cellulitis, patient is not able to care for himself at this time, because of safety issues patient was admitted to hospital he was started on vancomycin due to his prior history of MRSA, and he was admitted to the hospital physical therapy/Occupational Therapy plus geriatric social work professor consultation for discharge planning likely the patient will need to be placed in extended-care facility at this time 11/06: Patient is laying down in bed in no apparent distress, he denies any chest pain, shortness of breath, at this time, he was seen in consultation by infectious ease who recommended Aquacel silver to the right venous ulcer, continue short course of vancomycin, await the final result of the blood culture and wound culture, physical therapy evaluation, geriatric social work professor consultation for d ischarge planning. 11/07: Patient appears to be a bit short of breath today, he is having some expir atory wheezes, discontinue IV fluid, discussed with the nursing staff, start the patient on Lasix 40 mg once every day potassium 20 mill equivalent once every day, start the patient on DuoNeb 3 mL nebulization 4 times every day, monitor the patient very closely, continue current treatment plan with vancomycin, continue local care, physical therapy and Occupational Therapy evaluation, discussed with the geriatric social work professor the need for subacute rehabilitation she is trying to try to get the patient to one of the facility outside of [place] 11/08: Patient is feeling better today, his pain is in better control, he continues to get his Percocet every 4 hours, added pregabalin 150 mg orally twice every day yesterday, has been getting vancomycin and local care for his right venous ulcer, has been seen by physical therapy occupational therapy as well as geriatric social work professor, patient's will likely be discharged hopefully on Monday, wound culture finalized to be MRSA that is sensitive to vancomycin. Continue current treatment plan, infectious disease following. 11/09: Patient sitting up in bed in no apparent distress, is feeling much better today, he was seen in consultation by spine surgery, who recommended continue current treatment plan, follow-up with Dr. Watts as an outpatient in 2 to 4 weeks due to significant spondylosis of the cervical spine as well as spinal stenosis with minimal upper extremity weakness. And recurrent falls. No evidence of myelopathy at this point in time. Will follow-up with the patient very closely, patient has been on vancomycin, infectious disease recommended for the patient to be switched to Bactrim double strength 1 tablet twice every day for 7 days on the day of discharge, patient is medically stable to be discharged to extended-care facility when prior authorization is available. 11/10: Patient is feeling better today, he has no fever or chills at this time, he had a bowel movement yesterday, he is currently on pregabalin 150 mg orally 3 times every day, continue with that, continue with Percocet every 4 hours as needed, follow-up with the patient very closely, awaiting the prior authorization for the patient to be transported to subacute rehabilitation at [facility] in [place], hopefully this will happen tomorrow morning. Th en at that point we will switch the patient to oral Bactrim double strength 1 tablet orally twice every day for 7 days. Continue with local care with Aquacel silver as indicated by infectious disease. 11/11: Patient is sitting up in bed in no apparent distress, he stated that he is still very weak, he is not able to go back home, [facility] declined the patient admission to subacute rehabilitation due to nonparticipation in his health insurance I spoke with the geriatric social work professor about trying to send her to different places and hopefully will try to get the patient out of the hospital in the next 24 hours. 3/4: Patient is laying down in bed he continues to have significant mount of pain in the neck area and lower back area he has been getting Lyrica 150 mg orally 3 times every day, Percocet every 4 hours, and he is asking for baclofen 10 mg orally twice every day which we will order, he denies any chest pain, shortness of breath, I still awaiting for the geriatric social work professor to tell us the dis position for the patient to go for subacute rehabilitation we will try to get him out of the hospital as soon as we can when the prior authorization is achieved. REVIEW OF SYSTEMS: Constitutional: No documented fever, no chills, no night sweats. No weight change. positive for weakness , reports fatigue reports lethargy. Positive for daytime sleepiness. HEENT: No headache. No blurred vision or double vision, no loss of vision. No loss of Hearing, no ringing in the ears, no dizziness. No nasal drainage or congestion. No epistaxis. No sore throat. Lungs: No shortness of breath, no cough, no sputum production. No wheezing. Reports dyspnea with activity. Cardiovascular: No chest pain, positive for lower extremity edema. No palpitations. No paroxysmal nocturnal dyspnea. No orthopnea. No lightheadedness or dizziness. No syncopal episodes.Positive for nocturia. Abdominal: No abdominal pain. No nausea, vomiting. No diarrhea. No constipation. No bloody or tarry stools . No loss of appetite. Genitourinary: No dysuria, increased frequency, urgency. No urinary retention. Musculoskeletal: positive for neck pain, positive for chronic low back pain, positive for pain in both lower extremities with significant neuropathy, positive for gait dysfunction, positive for lower extremity weakness. Integumentary: venous stasis and stasis dermatitis and venous ulcer to the back of the right leg with a clean base. Neurologic: No aphasia. No facial droop. Positive for memory loss. No head injury. No headache, positive for paresthesia in both lower extremities, back to baseline. Psychiatric: Patient does appear to be somewhat depressed, appears to be a bit anxious, no suicidal thoughts or ideation. Endocrine: No abnormal blood sugars, increased weight. PHYSICAL EXAMINATION: General: This is a 74-year-old male who is resting in bed and does not appear to be in acute distress. HEENT: Head is atraumatic, normocephalic, pupils were equal round reactive to light and recommendation, extraocular muscle movement were intact, sclera nonicteric, conjunctivae were pale, mucous membranes of the mouth are somewhat dry. Neck: Supple, no JVP, normal carotid upstroke bilaterally, no lymphadenopathy. Chest: Decreased breath sounds at the bases, few rhonchi, no expiratory wheezes, no chest wall tenderness, no intercostal retractions. Heart: First heart sound is normal, second heart sound is normal there is systolic ejection murmur 2/6 located in the left sternal border. Abdomen: Soft, nontender, nondistended, positive bowel sounds. Extremities: There is chronic significant venous stasis of right lower extremity with a chronic skin changes dorsalis pedis +1 bilaterally Neurologic examination: Patient is awake alert and oriented X 3, cranial nerves II-12 appear grossly intact, muscle power were 4 out of 5 in upper extremities and 3out of 5 in bilateral lower extremities, deep tendon reflexes were depressed bilaterally. ASSESSMENT AND PLAN: 1. Right lower extremity venous ulcer with MRSA cellulitis and SIRS. Patient was started on Aquacel silver, continue to wrap the right lower extremity with Rocky wrap, change every other day, continue Bactrim double strength 1 tablet orally twice every day for 7 days. Discontinue vancomycin continue local care. 2. Mild anemia monitor the patient CBC over the next 24 hours. Multifactorial continue to monitor CBC. 3. Hypertension and hypertensive cardiovascular disease. Continue patient on m etoprolol ER 50 mg once every day, losartan 100 mg orally once every day, monitor the patient blood pressure very closely. 4. Hyperlipidemia. Continue atorvastatin 40 mg daily. Keep LDL 55-70. 5. Vascular dementia. Appears to be stable at this time. 6. History of chronic alcohol use and dependence. patient has quit 7. 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 Continue patient on Percocet 10/325 mg 1 tablet every 4 hours as needed, continue Lyrica 150 mg orally twice every day. Patient was seen in consultation by spine surgery who recommended current treatment plan and follow- up as an outpatient for possible surgical intervention. 8. Peripheral neuropathy. Continue patient on pregabalin 150 mg orally 3 times every day. 9. DVT prophylaxis. Continue Lovenox 40 mg subcutaneously every 24 hours. 10. GI prophylaxis. Continue Protonix 40 mg orally once every day . 11. Insomnia. continue melatonin 10 mg at bedtime 13. Physical therapy evaluation for possible subacute rehabilitation. 12. cab worker consultation for discharge planning 13. Likely discharge patient tomorrow we are still waiting the prior authorization. Objective - Vital Signs Vital signs: Vital Signs Temp 97.5 F L 11/12/24 13:24 Pulse 66 11/12/24 13:24 Resp 19 11/12/24 13:24 BP 150/75 11/12/24 13:24 Pulse Ox 98 11/12/24 13:24 FiO2 Intake & Output 11/11/24 11/12/24 11/12/24 18:59 06:59 18:59 Intake Total 480 Output Total 700 1000 Balance -700 -520 Intake: Oral 480 Output: Urine 700 1000 Other: Voiding Method Toilet Toilet Toilet Urinal Urinal Urinal - Labs CBC & Chem 7: 11/11/24 05:08 11/11/24 05:08
[2024-11-13] MEDS: LACTULOSE 20 GM/30 ML CUP PO ONE (16:29)
[2024-11-13 18:19] LABS: Basophils # (A) 0.06 X 10*3/uL (0.00-0.10); Basophils % (A) 0.8 %; Eosinophils # (A) 0.39 X 10*3/uL (0.04-0.35); Eosinophils % (A) 5.2 %; HCT 33.2 % (39.6-50.0); HGB 10.1 g/dL (13.0-17.0); Lymphocytes # (A) 1.83 X 10*3/uL (0.90-5.00); Lymphocytes % (A) 24.4 %; MCH 27.2 pg (27.0-32.0); MCHC 30.4 g/dL (32.0-37.0); MCV 89.5 FL (80.0-97.0); Mean Platelet Volume 10.6 FL (9.5-12.2); Monocytes % (A) 13.3 %; NRBC Per 100 WBC 0 X 10*3/uL (0.00-0.01); Platelet Count 285 X 10*3/uL (140-440); RBC 3.71 X 10*6/uL (4.40-5.60); RDW 17.2 % (11.5-14.5)
[2024-11-13 18:28] LABS: ALT 11 U/L (10-49); AST 23 U/L (14-35); Albumin 3.5 g/dL (3.8-4.9); Albumin/Globulin Ratio 1.46 Ratio (1.60-3.17); Alkaline Phosphatase 76 U/L (41-126); BUN/Creat Ratio 17.87 Ratio (12.00-20.00); Blood Urea Nitrogen 26.8 mg/dL (9.0-27.0); Chloride 100 mmol/L (96-109); Globulin 2.4 g/dL (1.6-3.3); Glucose 108 mg/dL (70-110); Potassium 5.8 mmol/L (3.5-5.5); Sodium 137 mmol/L (135-145); Total Bilirubin <0.2 mg/dL (0.3-1.2); Total Protein 5.9 g/dL (6.2-8.2)
[2024-11-14] MEDS: SODIUM ZIRCONIUM CYCLOSILICATE 10 GM PACKET PO STA (02:20)
[2024-11-14 04:41] LABS: Anisocytosis Slight; Basophils % (A) 1 %; Eosinophils # (A) 0.3 k/uL (0-0.7); Eosinophils % (A) 4 %; HCT 34.4 % (39.0-53.0); HGB 10.5 gm/dL (13.0-17.5); Lymphocytes # (A) 2.2 k/uL (1.0-4.8); Lymphocytes % (A) 35 %; MCH 26.5 pg (25.0-35.0); MCHC 30.4 g/dL (31.0-37.0); Monocytes # (A) 0.7 k/uL (0-1.0); Monocytes % (A) 11 %; Neutrophils # (A) 2.9 k/uL (1.3-7.7); Neutrophils % (A) 46 %; Platelet Count 244 k/uL (150-450); RBC 3.95 m/uL (4.30-5.90); WBC 6.3 k/uL (3.8-10.6)
[2024-11-14 05:05] LABS: African American GFR (CKD) 49 (>60 ml/min/1.73 sqM); Anion Gap 7 mmol/L; Blood Urea Nitrogen 35 mg/dL (9-20); C Reactive Protein 3.6 mg/dL (<1.0); Calcium 8.9 mg/dL (8.4-10.2); Carbon Dioxide 31 mmol/L (22-30); Chloride 95 mmol/L (98-107); Glucose 109 mg/dL (74-99); Non-African American GFR(CKD) 43 (>60 ml/min/1.73 sqM); Potassium 5.1 mmol/L (3.5-5.1); Sodium 133 mmol/L (137-145)
[2024-11-14] MEDS: SODIUM CHLORIDE 0.9% 1,000 ML IV SCH (08:52)
--- NOTE | 2024-11-14 15:09 | P.PN ---
Subjective Progress Note Date: 11/13/24 HISTORY OF PRESENT ILLNESS: This is a 74-year-old male one of my patient with a previous medical history significant for hypertension and hypertensive cardiovascular disease, hyperlipidemia, obesity with obstructive sleep apnea, history of chronic alcohol use and dependence with the peripheral neuropathy, significant spondylosis of the lumbar spine with spinal stenosis and significant chronic low back pain, patient was recently hospitalized at [facility] about a month ago for MRSA cellulitis of the left lower extremity along with multiple wounds September 24 till October 01, 2024 he was found to have MRSA cellulitis and he has done well after that, he was following up with us as an outpatient in a week from the discharge, he was doing fine, apparently the patient was brought into the emergency department at [facility] today because the patient was not able to care for himself, and he lives currently in [facility], but he has not been taking care of his son at this time, whether or not he is taking his medications yet to be determined, patient was found to have a significant venous ulceration of the back of the right leg that appears to be clean at this time with minimal cellulitis, patient is not able to care for himself at this time, because of safety issues patient was admitted to hospital he was started on vancomycin due to his prior history of MRSA, and he was admitted to the hospital physical therapy/Occupational Therapy plus social human services assistants consultation for discharge planning likely the patient will need to be placed in extended-care facility at this time 11/06: Patient is laying down in bed in no apparent distress, he denies any chest pain, shortness of breath, at this time, he was seen in consultation by infectious ease who recommended Aquacel silver to the right venous ulcer, continue short course of vancomycin, await the final result of the blood culture and wound culture, physical therapy evaluation, social human services assistants consultation for d ischarge planning. 11/07: Patient appears to be a bit short of breath today, he is having some expir atory wheezes, discontinue IV fluid, discussed with the nursing staff, start the patient on Lasix 40 mg once every day potassium 20 mill equivalent once every day, start the patient on DuoNeb 3 mL nebulization 4 times every day, monitor the patient very closely, continue current treatment plan with vancomycin, continue local care, physical therapy and Occupational Therapy evaluation, discussed with the social human services assistants the need for subacute rehabilitation she is trying to try to get the patient to one of the facility outside of [place] 11/08: Patient is feeling better today, his pain is in better control, he continues to get his Percocet every 4 hours, added pregabalin 150 mg orally twice every day yesterday, has been getting vancomycin and local care for his right venous ulcer, has been seen by physical therapy occupational therapy as well as social human services assistants, patient's will likely be discharged hopefully on Monday, wound culture finalized to be MRSA that is sensitive to vancomycin. Continue current treatment plan, infectious disease following. 11/09: Patient sitting up in bed in no apparent distress, is feeling much better today, he was seen in consultation by spine surgery, who recommended continue current treatment plan, follow-up with Dr. Watts as an outpatient in 2 to 4 weeks due to significant spondylosis of the cervical spine as well as spinal stenosis with minimal upper extremity weakness. And recurrent falls. No evidence of myelopathy at this point in time. Will follow-up with the patient very closely, patient has been on vancomycin, infectious disease recommended for the patient to be switched to Bactrim double strength 1 tablet twice every day for 7 days on the day of discharge, patient is medically stable to be discharged to extended-care facility when prior authorization is available. 11/10: Patient is feeling better today, he has no fever or chills at this time, he had a bowel movement yesterday, he is currently on pregabalin 150 mg orally 3 times every day, continue with that, continue with Percocet every 4 hours as needed, follow-up with the patient very closely, awaiting the prior authorization for the patient to be transported to subacute rehabilitation at [facility] in [place], hopefully this will happen tomorrow morning. Th en at that point we will switch the patient to oral Bactrim double strength 1 tablet orally twice every day for 7 days. Continue with local care with Aquacel silver as indicated by infectious disease. 11/11: Patient is sitting up in bed in no apparent distress, he stated that he is still very weak, he is not able to go back home, [facility] declined the patient admission to subacute rehabilitation due to nonparticipation in his health insurance I spoke with the social human services assistants about trying to send her to different places and hopefully will try to get the patient out of the hospital in the next 24 hours. 11/12: Patient is laying down in bed he continues to have significant mount of pain in the neck area and lower back area he has been getting Lyrica 150 mg orally 3 times every day, Percocet every 4 hours, and he is asking for baclofen 10 mg orally twice every day which we will order, he denies any chest pain, shortness of breath, I still awaiting for the social human services assistants to tell us the dis position for the patient to go for subacute rehabilitation we will try to get him out of the hospital as soon as we can when the prior authorization is achieved. 11/13: Patient is complaining of generalized weakness, he stated that he cannot take care of himself at home at this time, I spoke with the embedded case manager, and it seems like the case is going to go to a lead medical technologist review at this point in time, most likely the patient will not be approved to go to the subacute rehabilitation at this point in time, we will try to work with the patient about getting back to [facility], with home health care as well as physical therapy and Occupational Therapy at home, at this time patient was switched to oral antibiotic in the form of Bactrim double strength twice every day, he appears to be a bit dehydrated, will start the patient on IV fluid in the form of normal saline at 75 cc an hour, discontinue potassium and Lasix, patient did receive Lokelma 5 g p.o. x 1, repeated labs in the next 24 hours. REVIEW OF SYSTEMS: Constitutional: No documented fever, no chills, no night sweats. No weight change. positive for weakness , reports fatigue reports lethargy. Positive for daytime sleepiness. HEENT: No headache. No blurred vision or double vision, no loss of vision. No loss of Hearing, no ringing in the ears, no dizziness. No nasal drainage or congestion. No epistaxis. No sore throat. Lungs: No shortness of breath, no cough, no sputum production. No wheezing. Reports dyspnea with activity. Cardiovascular: No chest pain, positive for lower extremity edema. No pa lpitations. No paroxysmal nocturnal dyspnea. No orthopnea. No lightheadedness or dizziness. No syncopal episodes.Positive for nocturia. Abdominal: No abdominal pain. No nausea, vomiting. No diarrhea. No constipation. No bloody or tarry stools . No loss of appetite. Genitourinary: No dysuria, increased frequency, urgency. No urinary retention. Musculoskeletal: positive for neck pain, positive for chronic low back pain, positive for pain in both lower extremities with significant neuropathy, positive for gait dysfunction, positive for lower extremity weakness. Integumentary: venous stasis and stasis dermatitis and venous ulcer to the back of the right leg with a clean base. Neurologic: No aphasia. No facial droop. Positive for memory loss. No head injury. No headache, positive for paresthesia in both lower extremities, back to baseline. Psychiatric: Patient does appear to be somewhat depressed, appears to be a bit anxious, no suicidal thoughts or ideation. Endocrine: No abnormal blood sugars, increased weight. PHYSICAL EXAMINATION: General: This is a 74-year-old male who is resting in bed and does not appear to be in acute distress. HEENT: Head is atraumatic, normocephalic, pupils were equal round reactive to light and recommendation, extraocular muscle movement were intact, sclera nonicteric, conjunctivae were pale, mucous membranes of the mouth are somewhat dry. Neck: Supple, no JVP, normal carotid upstroke bilaterally, no lymphadenopathy. Chest: Decreased breath sounds at the bases, few rhonchi, no expiratory wheezes, no chest wall tenderness, no intercostal retractions. Heart: First heart sound is normal, second heart sound is normal there is systolic ejection murmur 2/6 located in the left sternal border. Abdomen: Soft, nontender, nondistended, positive bowel sounds. Extremities: There is chronic significant venous stasis of right lower extremity with a chronic skin changes dorsalis pedis +1 bilaterally Neurologic examination: Patient is awake alert and oriented X 3, cranial nerves II-12 appear grossly intact, muscle power were 4 out of 5 in upper extremities and 3out of 5 in bilateral lower extremities, deep tendon reflexes were depressed bilaterally. ASSESSMENT AND PLAN: 1. Right lower extremity venous ulcer with MRSA cellulitis and SIRS. Patient was started on Aquacel silver, continue to wrap the right lower extremity with Rocky wrap, change every other day, continue Bactrim double strength 1 tablet orally twice every day for 7 days. Discontinue vancomycin continue local care. 2. Acute kidney injury due to acute tubular necrosis and possible false elevation of the creatinine due to Bactrim use. Discontinue Lasix and potassium, start the patient on IV fluid in the form of normal saline at 75 cc an hour, patient will be given Lokelma 5 g orally x 1 for the hyperkalemia repeat CMP tomorrow morning. 3. Hypertension and hypertensive cardiovascular disease. Continue patient on metoprolol ER 50 mg once every day, losartan 100 mg orally once every day, monitor the patient blood pressure very closely. 4. Hyperlipidemia. Continue atorvastatin 40 mg daily. Keep LDL 55-70. 5. Vascular dementia. Appears to be stable at this time. 6. History of chronic alcohol use and dependence. patient has quit 7. 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 Continue patient on Percocet 10/325 mg 1 tablet every 4 hours as needed, continue Lyrica 150 mg orally twice every day. Patient was seen in consultation by spine surgery who recommended current treatment plan and follow- up as an outpatient for possible surgical intervention. 8. Peripheral neuropathy. Continue patient on pregabalin 150 mg orally 3 times every day. 9. DVT prophylaxis. Continue Lovenox 40 mg subcutaneously every 24 hours. 10. GI prophylaxis. Continue Protonix 40 mg orally once every day . 11. Insomnia. continue melatonin 10 mg at bedtime 13. Physical therapy evaluation for possible subacute rehabilitation. 12. adult day care worker consultation for discharge planning 13 likely the patient will be discharged home. With home PT and home health care. Objective - Vital Signs Vital signs: Vital Signs Temp 97.5 F L 11/13/24 12:01 Pulse 84 11/13/24 12:01 Resp 18 11/13/24 12:01 BP 104/53 11/13/24 12:01 Pulse Ox 100 11/13/24 12:01 FiO2 Intake & Output 11/12/24 11/13/24 11/13/24 18:59 06:59 18:59 Intake Total 1200 540 Output Total 1000 700 Balance 200 -160 Weight 113.398 kg Intake: Oral 1200 540 Output: Urine 1000 700 Other: Voiding Method Toilet Toilet Urinal Urinal - Labs CBC & Chem 7: 11/14/24 04:05 11/14/24 04:05
--- NOTE | 2024-11-14 15:10 | P.PN ---
Subjective Progress Note Date: 11/14/24 Principal diagnosis: Reason for follow-up is right lower extremity venous ulcer and question of cellulitis Patient is a 74-year-old male with a past medical history of h ypertension osteoarthritis bilateral lower extremity venous stasis ulcer more marked on the right leg and history of recurrent cellulitis has been brought to the hospital for evaluation of weakness and pain to the lower extremity did have right leg ulcer and concern for possible cellulitis prompted this consultation.. On today's evaluation that is 11/14/2024,the patient remains to be afebrile, pat ient is on room air not requiring supplemental oxygen circumventing of shortness of breath no chest pain no cough no abdominal pain or worsening pain to lower extremity complaining of weakness. The patient white count is 6.3 creatinine is 1.60 Objective - Vital Signs Vital signs: Vital Signs Temp 97.3 F L 11/14/24 12:12 Pulse 65 11/14/24 12:12 Resp 18 11/14/24 12:12 BP 83/45 11/14/24 12:12 Pulse Ox 98 11/14/24 12:12 FiO2 21 11/14/24 11:50 Intake & Output 11/13/24 11/14/24 11/14/24 18:59 06:59 18:59 Intake Total 540 Output Total 300 Balance 240 Intake: Oral 540 Output: Urine 300 Other: Voiding Method Toilet Toilet Urinal Urinal # Voids 1 - Exam GENERAL DESCRIPTION: An elderly male up in bed in no distress RESPIRATORY SYSTEM: Unlabored breathing , decreased breath sounds at bases HEART: S1 S2 regular rate and rhythm , ABDOMEN: Soft , no tenderness EXTREMITIES: Bilateral lower extremity currently wrapped no drainage - Labs CBC & Chem 7: 11/14/24 04:05 11/14/24 04:05 Labs: Abnormal Lab Results - Last 24 Hours (Table) 11/13/24 11/13/24 11/14/24 Range/Units 15:48 15:48 04:05 RBC 3.71 L 3.95 L (4.40-5.60) X 10*6/uL Hgb 10.1 L 10.5 L (13.0-17.0) g/dL Hct 33.2 L 34.4 L (39.6-50.0) % MCHC 30.4 L 30.4 L (32.0-37.0) g/dL RDW 17.2 H 17.0 H (11.5-14.5) % Eosinophils # 0.39 H (0.04-0.35) X 10*3/uL Sodium (137-145) mmol/L Potassium 5.8 H (3.5-5.5) mmol/L Chloride (98-107) mmol/L Carbon Dioxide (22-30) mmol/L BUN (9-20) mg/dL Creatinine (0.66-1.25) mg/dL Est GFR (CKD-EPI) 49 L (>=60) Glucose (74-99) mg/dL Total Bilirubin <0.2 L (0.3-1.2) mg/dL C-Reactive Protein (<1.0) mg/dL Total Protein 5.9 L (6.2-8.2) g/dL Albumin 3.5 L (3.8-4.9) g/dL Albumin/Globulin Ratio 1.46 L (1.60-3.17) Ratio 11/14/24 Range/Units 04:05 RBC (4.40-5.60) X 10*6/uL Hgb (13.0-17.0) g/dL Hct (39.6-50.0) % MCHC (32.0-37.0) g/dL RDW (11.5-14.5) % Eosinophils # (0.04-0.35) X 10*3/uL Sodium 133 L (137-145) mmol/L Potassium (3.5-5.5) mmol/L Chloride 95 L (98-107) mmol/L Carbon Dioxide 31 H (22-30) mmol/L BUN 35 H (9-20) mg/dL Creatinine 1.60 H (0.66-1.25) mg/dL Est GFR (CKD-EPI) (>=60) Glucose 109 H (74-99) mg/dL Total Bilirubin (0.3-1.2) mg/dL C-Reactive Protein 3.6 H (<1.0) mg/dL Total Protein (6.2-8.2) g/dL Albumin (3.8-4.9) g/dL Albumin/Globulin Ratio (1.60-3.17) Ratio Assessment and Plan (1) Cellulitis of right leg Current Visit: Yes Status: Acute Code(s): L03.115 - CELLULITIS OF RIGHT LOWER LIMB SNOMED Code(s): 64910746972616544 (2) Venous stasis ulcer Current Visit: Yes Status: Acute Code(s): I83.009 - VARICOSE VEINS OF UNSP LOWER EXTREMITY W ULCER OF UNSP SITE; L97.909 - NON-PRS CHRONIC ULC UNSP PRT OF UNSP LOW LEG W UNSP SEVERITY SNOMED Code(s): 14039507 Plan: 1patient presented to hospital with weakness increasing pain to bilateral lower extremity also complaining of pain to the lower back and also have a chronic venous stasis of right lower extremity and more pain concern for possible cellulitis local cultures obtained in the ER which are currently pending 2-local wound care with dry Aquacel silver dressing followed by Rocky wrap from just above the toe to below the knee change q. 48-hour 3-local culture did grew MRSA, patient did have slight worsening of his creatinine we will discontinue Bactrim DS and consider short course of oral Zyvox Dictation was produced using [employer] dictation software. please excuse any grammatical, word or spelling errors. Time with Patient: Less than 30
[2024-11-14] MEDS: LINEZOLID 600 MG TAB PO SCH (20:00)
[2024-11-15 07:59] VITALS: BP 117/57; PULSE 65; RESP 18; TEMP 97.5
[2024-11-15 08:22] LABS: Basophils # (A) 0.04 X 10*3/uL (0.00-0.10); Basophils % (A) 0.7 %; Eosinophils # (A) 0.26 X 10*3/uL (0.04-0.35); Eosinophils % (A) 4.8 %; HCT 30.6 % (39.6-50.0); HGB 9.5 g/dL (13.0-17.0); Lymphocytes # (A) 2.03 X 10*3/uL (0.90-5.00); Lymphocytes % (A) 37.3 %; MCH 27.4 pg (27.0-32.0); MCV 88.2 FL (80.0-97.0); Monocytes # (A) 0.91 X 10*3/uL (0.20-1.00); Monocytes % (A) 16.7 %; NRBC Per 100 WBC 0 X 10*3/uL (0.00-0.01); Neutrophils # (A) 2.18 X 10*3/uL (1.80-7.70); Neutrophils % (A) 40.1 %; Platelet Count 218 X 10*3/uL (140-440); RBC 3.47 X 10*6/uL (4.40-5.60); RDW 17.2 % (11.5-14.5); WBC 5.44 X 10*3/uL (4.50-10.00)
[2024-11-15 08:27] LABS: BUN/Creat Ratio 24.33 Ratio (12.00-20.00); Blood Urea Nitrogen 36.5 mg/dL (9.0-27.0); Chloride 101 mmol/L (96-109); Glucose 102 mg/dL (70-110); Potassium 5.1 mmol/L (3.5-5.5); Sodium 138 mmol/L (135-145)
[2024-11-15 08:28] LABS: ALT 10 U/L (10-49); AST 15 U/L (14-35); Albumin 3.2 g/dL (3.8-4.9); Albumin/Globulin Ratio 1.52 Ratio (1.60-3.17); Alkaline Phosphatase 73 U/L (41-126); Calcium 8.7 mg/dL (8.7-10.3); Carbon Dioxide 29.2 mmol/L (21.6-31.8); Globulin 2.1 g/dL (1.6-3.3); Total Bilirubin <0.2 mg/dL (0.3-1.2); Total Protein 5.3 g/dL (6.2-8.2)
[2024-11-15] MEDS: LIDOCAINE 2% GLYDO JELLY 6 ML APPL TOPICAL SCH (12:08)
[2024-11-15] MEDS ORDERED: PRIMIDONE 25 MG TAB PO SCH (13:30)
--- NOTE | 2024-11-15 14:35 | P.PN ---
Subjective Progress Note Date: 11/15/24 Principal diagnosis: Reason for follow-up is right lower extremity venous ulcer and question of cellulitis Patient is a 74-year-old male with a past medical history of h ypertension osteoarthritis bilateral lower extremity venous stasis ulcer more marked on the right leg and history of recurrent cellulitis has been brought to the hospital for evaluation of weakness and pain to the lower extremity did have right leg ulcer and concern for possible cellulitis prompted this consultation.. On today's evaluation that is 11/15/2024, the patient continues to be afebrile, the patient is on room air and breathing comfortably, the Pt denies having any chest pain or cough, the patient denies having any abdominal pain no vomiting or any diarrhea, has been complaining mild throbbing pain to the right foot wound area. Patient white count is 5.44 creatinine is around 1.5 Objective - Vital Signs Vital signs: Vital Signs Temp 97.5 F L 11/15/24 07:38 Pulse 65 11/15/24 07:38 Resp 18 11/15/24 07:38 BP 117/57 11/15/24 07:38 Pulse Ox 93 L 11/15/24 07:38 FiO2 21 11/14/24 11:50 Intake & Output 11/14/24 11/15/24 11/15/24 18:59 06:59 18:59 Intake Total 1080 Output Total 200 1200 Balance -200 -120 Intake: Oral 1080 Output: Urine 200 1200 Other: Voiding Method Toilet Toilet Urinal Urinal - Exam GENERAL DESCRIPTION: An elderly male up in bed in no distress RESPIRATORY SYSTEM: Unlabored breathing , decreased breath sounds at bases HEART: S1 S2 regular rate and rhythm , ABDOMEN: Soft , no tenderness EXTREMITIES: Right leg swelling has decreased wound base looks clean with no slough tissue or surrounding redness - Labs CBC & Chem 7: 11/15/24 03:54 11/15/24 03:54 Labs: Abnormal Lab Results - Last 24 Hours (Table) 11/15/24 11/15/24 Range/Units 03:54 03:54 RBC 3.47 L (4.40-5.60) X 10*6/uL Hgb 9.5 L (13.0-17.0) g/dL Hct 30.6 L (39.6-50.0) % MCHC 31.0 L (32.0-37.0) g/dL RDW 17.2 H (11.5-14.5) % BUN 36.5 H (9.0-27.0) mg/dL Est GFR (CKD-EPI) 49 L (>=60) BUN/Creatinine Ratio 24.33 H (12.00-20.00) Ratio Total Bilirubin <0.2 L (0.3-1.2) mg/dL Total Protein 5.3 L (6.2-8.2) g/dL Albumin 3.2 L (3.8-4.9) g/dL Albumin/Globulin Ratio 1.52 L (1.60-3.17) Ratio Assessment and Plan (1) Cellulitis of right leg Status: Acute Code(s): L03.115 - CELLULITIS OF RIGHT LOWER LIMB SNOMED Code(s): 21937654577943376 (2) Venous stasis ulcer Status: Acute Code(s): I83.009 - VARICOSE VEINS OF UNSP LOWER EXTREMITY W ULCER OF UNSP SITE; L97.909 - NON-PRS CHRONIC ULC UNSP PRT OF UNSP LOW LEG W UNSP SEVERITY SNOMED Code(s): 56440999 Plan: 1patient presented to hospital with weakness increasing pain to bilateral lower extremity also complaining of pain to the lower back and also have a chronic venous stasis of right lower extremity and more pain concern for possible cellulitis local cultures obtained in the ER which are currently pending 2-local wound care with dry Aquacel silver dressing followed by Rocky wrap from just above the toe to below the knee change q. 48-hour 3-local culture did grew MRSA, patient antibiotic was switched to thousand because of his creatinine which is down to 1.5 recommend a 5-day course on discharge he is requesting for some lidocaine jelly which has been ordered for the dressing changes Dictation was produced using [employer] dictation software. please excuse any grammatical, word or spelling errors. Time with Patient: Less than 30
--- NOTE | 2024-11-16 10:07 | P.CNNES ---
History of Present Illness Consult date: 11/15/24 Requesting physician: Suzan Willingham Reason for Consult: right arm weakness History of Present Illness: Patient is a 74-year-old male with history of multiple medical issues, came to the hospital by ambulance on 11/05/2024 failure to thrive, cellulitis of the right leg, venous stasis ulcer, difficulty walking. Patient was diagnosed with cellulitis of the right leg, venous stasis ulcers, seen by ID, started on antibiotic. Neurology was consulted for some involuntary movements. Patient states that he is concerned about "sudden explosive movements" of his right arm/hand. It appears more like a myoclonic jerk, what he is describing. He states that if he is holding something in the hand like a pen or phone, and if jerks, it flies out. If he is trying to talk to someone on the phone, and if it happens, he drops the phone. He gets situation in which he can't hold things, sometimes happens in sleep. Had things thrown away in the room. He also has developed tremors in the last 2 years. His handwriting is shaky, and states the size has not changed, although on my review, the handwriting appears quite large size. As per EMS flow sheet, patient resides in [place]. There was a very [facility] odor in his apartment. Found patient in bed soiled with urine and feces. Brought in garbage and food in the apartment along with extreme clutter and garbage on the floor. Patient's bed in front of the apartment a.m. possible to the bathroom as that was unkempt with dirty laundry and appears to be a catch on as this will just strewn into the room. He has an old juice bottle full of urine another bottle collected. Patient was apologizing for the conditions of his apartment and the smell. Patient was otherwise alert oriented x 4. He has open wound to his legs in various stages of degradation size and draining legs are swollen and red and weeping edema. Patient's left arm is sore and swollen. Patient has been defecating in his close in bed is soaked with urine. Patient's blood pressure was 150/63 pulse rate 73 saturation 99%, blood sugar 124. Patient's most recent blood test shows normal WBC hemoglobin 9.5, platelets at 118. BUN 36, creatinine 1.5. Hepatic panel is normal. Patient's hemoglobin A1c 5.8 on 10/07/2024. B12 786 on 12/30/2022, folate normal 33.7. TSH normal 2.010 on 10/07/2024. Patient had a CT head on 09/24/2024 which revealed no acute process. Patient has been seen by Dr. Sales, most recently on 09/24/2024 for altered mental status, possibly due to overdose on oxycodone. I have seen patient wants as a follow-up on 01/10/2024 for right upper extremity weakness, which was felt to be related to cervical spondylosis. Patient did not see orthopedic spine in that admission, but was seen by Dr. Watts on 11/09/2024 for cervical spondylosis and they believe patient has significant multilevel neural foraminal and central canal stenosis. Surgical intervention was considered, but he was considered poor risk due to multiple risk factors parti cularly due to open wounds in the leg. They have recommended patient follow up with their office in 2-4 weeks. Review of Systems Leg weakness, edema, ulcers, tremors, denies headache dysphagia diplopia, all other review of systems reviewed and unremarkable. Past Medical History Past Medical History: Hypertension, Osteoarthritis (OA) Additional Past Medical History / Comment(s): ETOH abuse, chronic back pain, BLE neuropathy, lymphedema, multiple falls, cellulitis History of Any Multi-Drug Resistant Organisms: MRSA Date of last positivie culture/infection: 11/05/24 MDRO Source:: RT LEG, RT ankle Past Surgical History: Back Surgery, Orthopedic Surgery, Tonsillectomy Additional Past Surgical History / Comment(s): 3 back laminectomies, hand surgery s/p trauma to reattatch tendons Past Anesthesia/Blood Transfusion Reactions: No Reported Reaction Past Psychological History: No Psychological Hx Reported Smoking Status: Never smoker, Unknown if ever smoked Past Alcohol Use History: Daily, Heavy Past Drug Use History: None Reported - Past Family History Father Family Medical History: Hypertension Mother Family Medical History: Cancer Additional Family Medical History / Comment(s): Lung cancer Brother(s) Family Medical History: No Reported History Sister(s) Family Medical History: Hypertension Daughter(s) Family Medical History: No Reported History Medications and Allergies Home Medications Medication Instructions Recorded Confirmed Type Aspirin 81 mg PO DAILY tab 11/11/24 Rx Docusate [Colace] 100 mg PO BID cap 11/11/24 Rx Lactulose [Cephulac] 20 gm PO BID ml 11/11/24 Rx Melatonin 10 mg PO HS tab 11/11/24 Rx Pregabalin [Lyrica] 150 mg PO TID@0000,0800,1600 #9 cap 11/11/24 Rx oxyCODONE-APAP 10-325MG [Percocet 1 tab PO Q4H #18 tab 11/11/24 Rx 10-325 mg] Atorvastatin [Lipitor] 40 mg PO HS #30 tablet 11/15/24 Rx Furosemide [Lasix] 40 mg PO DAILY #30 tablet 11/15/24 Rx Losartan Potassium [Cozaar] 100 mg PO DAILY #30 tab 11/15/24 Rx Metoprolol Succinate [Kapspargo 50 mg PO DAILY #30 cap 11/15/24 Rx Sprinkle] Pantoprazole Sodium [Protonix] 40 mg PO AC-BRKFST #30 tab 11/15/24 Rx Potassium Chloride ER [K-Dur 20] 20 meq PO DAILY #30 tab 11/15/24 Rx Allergies Allergy/AdvReac Type Severity Reaction Status Date / Time No Known Allergies Allergy Verified 11/05/24 12:03 Physical Examination - Vital Signs Vital Signs: Vital Signs Temp Pulse Resp BP BP Pulse Ox 11/15/24 07:38 97.5 F L 65 18 117/57 93 L 11/15/24 01:53 97.8 F 67 12 91/58 96 11/14/24 20:00 98.0 F 66 14 130/65 98 11/14/24 15:34 63 107/56 97 Intake and Output 11/14/24 11/15/24 11/15/24 22:59 06:59 14:59 Intake Total 1080 Output Total 200 1200 Balance -200 -120 Intake: Oral 1080 Output: Urine 200 1200 Other: Voiding Method Toilet Urinal Patient is an elderly male, very pleasant, in no acute distress. Patient is alert awake oriented to time place and person. Speech and language functions are normal. Patient can name and repeat very well. No aphasia or dysarthria. Attention, concentration and fund of knowledge is adequate. On cranial nerve examination, pupils are equal, round and reacting to light, visual dooley are full on confrontation, with no neglect on double simultaneous stimulation. Extraocular muscles are intact with no nystagmus. Face is symmetric, tongue protrudes to the midline. Palatal elevation and sensation normal, hearing and shoulder shrug normal, facial sensation normal. On muscle strength testing, there is no pronator drift and the strength is (right/left) deltoid 5-/5, biceps 5/5, triceps 5/5, dude ranch manager 5/5, hip flexion 3+/5, ankle dorsiflexion 3+/5, toe extension 3/4+5- Deep tendon reflexes are symmetric and trace in the upper extremities, absent in the lower limbs. Sensory to touch is equal with no neglect on double simultaneous stimulation. Cerebellar function showed no ataxia for [id number] testing, although he was tremulous. No dysdiadochokinesia. Cannot perform in the lower limbs because of weakness. Tone and bulk of muscles normal. Patient has mild to moderate tremors of outstretched hands. Gait deferred.. On general examination, there is no carotid bruit or murmur, S1-S2 audible. Chest is clear on consultation. Abdomen is soft nontender. No organomegaly, bowel sounds present. Patient has lymphedema, stasis ulcers, peripheral pulses could not be felt. Results - Laboratory Findings CBC and BMP: 11/15/24 03:54 11/15/24 03:54 Abnormal Lab Findings: Abnormal Labs 11/05/24 11/05/24 11/06/24 10:01 10:01 05:07 RBC Hgb 12.0 L Hct MCHC 30.6 L RDW 17.1 H Eosinophils # Sodium 136 L Potassium Chloride Carbon Dioxide BUN Creatinine Est GFR (CKD-EPI) BUN/Creatinine Ratio Glucose Total Bilirubin C-Reactive Protein Total Protein 5.6 L Albumin 3.1 L Albumin/Globulin Ratio Urine Protein Trace H Urine Ketones 1+ H 11/06/24 11/07/24 11/07/24 05:07 06:36 06:36 RBC 3.90 L 3.99 L Hgb 10.7 L 10.8 L Hct 33.7 L 35.4 L MCHC 31.8 L 30.5 L RDW 17.1 H 16.8 H Eosinophils # 0.45 H 0.47 H Sodium Potassium Chloride Carbon Dioxide BUN Creatinine 0.63 L Est GFR (CKD-EPI) BUN/Creatinine Ratio Glucose Total Bilirubin C-Reactive Protein Total Protein 5.5 L Albumin 2.9 L Albumin/Globulin Ratio Urine Protein Urine Ketones 11/10/24 11/10/24 11/11/24 08:05 08:07 05:08 RBC 4.15 L Hgb 11.1 L Hct 37.6 L MCHC 29.4 L RDW 16.9 H Eosinophils # Sodium 135 L Potassium Chloride 97 L Carbon Dioxide 31 H 32 H BUN Creatinine Est GFR (CKD-EPI) BUN/Creatinine Ratio Glucose Total Bilirubin C-Reactive Protein Total Protein 6.1 L 5.4 L Albumin 2.9 L Albumin/Globulin Ratio Urine Protein Urine Ketones 11/11/24 11/13/24 11/13/24 05:08 15:48 15:48 RBC 3.63 L 3.71 L Hgb 10.0 L 10.1 L Hct 32.2 L 33.2 L MCHC 31.1 L 30.4 L RDW 17.0 H 17.2 H Eosinophils # 0.39 H Sodium Potassium 5.8 H Chloride Carbon Dioxide BUN Creatinine Est GFR (CKD-EPI) 49 L BUN/Creatinine Ratio Glucose Total Bilirubin <0.2 L C-Reactive Protein Total Protein 5.9 L Albumin 3.5 L Albumin/Globulin Ratio 1.46 L Urine Protein Urine Ketones 11/14/24 11/14/24 11/15/24 04:05 04:05 03:54 RBC 3.95 L 3.47 L Hgb 10.5 L 9.5 L Hct 34.4 L 30.6 L MCHC 30.4 L 31.0 L RDW 17.0 H 17.2 H Eosinophils # Sodium 133 L Potassium Chloride 95 L Carbon Dioxide 31 H BUN 35 H Creatinine 1.60 H Est GFR (CKD-EPI) BUN/Creatinine Ratio Glucose 109 H Total Bilirubin C-Reactive Protein 3.6 H Total Protein Albumin Albumin/Globulin Ratio Urine Protein Urine Ketones 11/15/24 03:54 RBC Hgb Hct MCHC RDW Eosinophils # Sodium Potassium Chloride Carbon Dioxide BUN 36.5 H Creatinine Est GFR (CKD-EPI) 49 L BUN/Creatinine Ratio 24.33 H Glucose Total Bilirubin <0.2 L C-Reactive Protein Total Protein 5.3 L Albumin 3.2 L Albumin/Globulin Ratio 1.52 L Urine Protein Urine Ketones Assessment and Plan Assessment: * Probable metabolic tremors. Rule out underlying essential tremors. Myoclonic jerks, likely due to metabolic, rule out periodic limb movement. * Cervical spondylosis with cervical spinal stenosis at multiple levels. * Cellulitis of the right leg * Venous stasis ulcers * Morbid obesity * Acute kidney injury * Hypertension * Hyperlipidemia * History of alcohol use Plan: * Patient's neurological examination is stable as compared to the previous examination performed by myself on 01/10/2024. * Patient has cervical spondylosis, seen by orthopedic surgery, and patient considered not a candidate for surgery at this time because of comorbid factors particularly open wounds. Patient to follow-up with orthopedic surgery outpatient. * Patient has metabolic tremors. Cannot rule out underlying essential tremors. We will try primidone 25 mg twice a day. Possible side effects discussed. He may follow up with neurologist for further management outpatient. A prescription of primidone was provided. If he continues to have these jerks, then Requip could be considered. * Neurologically, no other workup indicated. Clear for discharge. * Thank you for the consult.
== END 2024-11-15 13:54 | disposition home health service (06) ==
LOC: EC 09:12 → 6NMEDSUR 13:48 → 5NMEDONC 13:56
PROVIDERS: ADMIT Internal Medicine; ATTEND Internal Medicine
DX: I83.019 Varicose veins of right lower extremity with ulcer of unspecified site (principal); L97.919 Non-pressure chronic ulcer of unspecified part of right lower leg with unspecified severity; L03.115 Cellulitis of right lower limb; B95.62 Methicillin resistant Staphylococcus aureus infection as the cause of diseases classified elsewhere; R65.10 Systemic inflammatory response syndrome (SIRS) of non-infectious origin without acute organ dysfunction; R62.7 Adult failure to thrive; R26.2 Difficulty in walking, not elsewhere classified; M50.10 Cervical disc disorder with radiculopathy, unspecified cervical region; M47.22 Other spondylosis with radiculopathy, cervical region; M48.02 Spinal stenosis, cervical region; E78.5 Hyperlipidemia, unspecified; N17.0 Acute kidney failure with tubular necrosis; I11.9 Hypertensive heart disease without heart failure; G25.3 Myoclonus; G47.33 Obstructive sleep apnea (adult) (pediatric); E03.9 Hypothyroidism, unspecified; I87.2 Venous insufficiency (chronic) (peripheral); F10.20 Alcohol dependence, uncomplicated; N40.0 Benign prostatic hyperplasia without lower urinary tract symptoms; G25.81 Restless legs syndrome; G62.9 Polyneuropathy, unspecified; F01.50 Vascular dementia, unspecified severity, without behavioral disturbance, psychotic disturbance, mood disturbance, and anxiety; M47.26 Other spondylosis with radiculopathy, lumbar region; D64.9 Anemia, unspecified; G89.4 Chronic pain syndrome; G47.00 Insomnia, unspecified; E66.01 Morbid (severe) obesity due to excess calories; Z68.35 Body mass index [BMI] 35.0-35.9, adult; Z11.52 Encounter for screening for COVID-19; Z79.82 Long term (current) use of aspirin; Z79.899 Other long term (current) drug therapy
CPT/HCPCS: 96376; 96365 ×2; 96366 ×7; 96372 ×10; 99285; 36415; 94640; 94760; 93005; 97110; 97530 ×5; 97162; 97535 ×3; 97166; 83880; 80053 ×7; 80048; 82565; 83605; 83735; 84100; 84484; 85025 ×8; 80202 ×2; 85610; 85730; 86140; 81003; 87040; 87070; 87205; 87075; 87077; 87186; 87636; 71046; G0378 ×11; J3370 ×6; J1650 ×10

== ENCOUNTER 2024-12-08 11:28 | Inpatient (IN) | payer MEDICARE ==
--- NOTE | 2024-12-08 11:55 | ED ---
Fall HPI - General Chief Complaint: Fall Stated Complaint: fall Time Seen by Provider: 12/08/24 11:33 Source: patient, family, EMS, RN notes reviewed Mode of arrival: EMS Limitations: altered mental status - History of Present Illness Initial Comments: This is a 74-year-old male who presents to the emergency department for a suspected fall. Patient was found on the ground by his daughter this morning and it is unclear when he fell or how long he had been on the ground for. He lives at [facility] and reportedly did not come down for dinner last night. Family states they last spoke to him 2 days ago. Patient does not recall falling. States that his whole body hurts which is chronic for him, but otherwise denies any localized pain. He is confused and altered on initial examination. However he is able to answer his name, location, and year, but tends to mumble in between and is very slow to respond. MD Complaint: fall - Related Data Previous Rx's Medication Instructions Recorded Aspirin 81 mg PO DAILY tab 11/11/24 Docusate [Colace] 100 mg PO BID cap 11/11/24 Lactulose [Cephulac] 20 gm PO BID ml 11/11/24 Melatonin 10 mg PO HS tab 11/11/24 Pregabalin [Lyrica] 150 mg PO TID@0000,0800,1600 #9 cap 11/11/24 oxyCODONE-APAP 10-325MG [Percocet 1 tab PO Q4H #18 tab 11/11/24 10-325 mg] Atorvastatin [Lipitor] 40 mg PO HS #30 tablet 11/15/24 Furosemide [Lasix] 40 mg PO DAILY #30 tablet 11/15/24 Losartan Potassium [Cozaar] 100 mg PO DAILY #30 tab 11/15/24 Metoprolol Succinate [Kapspargo 50 mg PO DAILY #30 cap 11/15/24 Sprinkle] Pantoprazole Sodium [Protonix] 40 mg PO AC-BRKFST #30 tab 11/15/24 Potassium Chloride ER [K-Dur 20] 20 meq PO DAILY #30 tab 11/15/24 Allergies Allergy/AdvReac Type Severity Reaction Status Date / Time No Known Allergies Allergy Verified 12/08/24 11:36 Review of Systems ROS Statement: Those systems with pertinent positive or pertinent negative responses have been documented in the HPI. ROS Other: All systems not noted in ROS Statement are negative. Past Medical History Past Medical History: Hypertension, Osteoarthritis (OA) Additional Past Medical History / Comment(s): ETOH abuse, chronic back pain, BLE neuropathy, lymphedema, multiple falls, cellulitis History of Any Multi-Drug Resistant Organisms: MRSA Date of last positivie culture/infection: 11/05/24 MDRO Source:: RT LEG, RT ankle Past Surgical History: Back Surgery, Orthopedic Surgery, Tonsillectomy Additional Past Surgical History / Comment(s): 3 back laminectomies, hand surgery s/p trauma to reattatch tendons Past Anesthesia/Blood Transfusion Reactions: No Reported Reaction Past Psychological History: No Psychological Hx Reported Smoking Status: Never smoker, Unknown if ever smoked Past Alcohol Use History: Daily, Heavy Past Drug Use History: None Reported - Past Family History Father Family Medical History: Hypertension Mother Family Medical History: Cancer Additional Family Medical History / Comment(s): Lung cancer Brother(s) Family Medical History: No Reported History Sister(s) Family Medical History: Hypertension Daughter(s) Family Medical History: No Reported History General Exam Limitations: no limitations General appearance: alert, in no apparent distress Head exam: Present: atraumatic, normocephalic, normal inspection Eye exam: Present: normal appearance, PERRL, EOMI. Absent: scleral icterus, conjunctival injection, periorbital swelling Respiratory exam: Present: normal lung sounds bilaterally. Absent: respiratory distress, wheezes, rales, rhonchi, stridor Cardiovascular Exam: Present: regular rate, normal rhythm Neurological exam: Present: alert, oriented X3 Skin exam: Present: warm, dry Course Vital Signs 12/08/24 12/08/24 11:29 12:09 Temperature 98.9 F 99.4 F Pulse Rate 71 70 Respiratory 18 18 Rate Blood Pressure 110/69 125/65 O2 Sat by Pulse 98 98 Oximetry Medical Decision Making - Medical Decision Making This is a 74-year-old male who presents to the emergency department for a suspected fall and altered mental status. Was pt. sent in by a medical professional or institution? @ -No Did you speak to anyone other than the patient for history? @ -EMS and his daughter provided the majority of the history. Did you review nursing and triage notes? @ -Yes, and I agree, it is accurate with regards to the patient's symptoms. Were old charts reviewed? @ -No Differential Diagnosis? @ -Differential Altered Mental Status: Hypoglycemia, DKA, hypercapnia, ETOH, overdose, CO poisoning, trauma, myxedema coma, HTN encephalopathy, infection, encephalitis, psychosis, intercranial hemorrhage, hepatic encephalopathy, meningitis, CVA, this is not meant to be an all-inclusive list EKG interpreted by me (3pts min.)? @ -EKG interpreted by me demonstrating the following: Sinus rhythm. Ventricular rate 69 bpm, AR interval 206 ms, QRS duration 107 ms, QTc 412 ms. X-rays interpreted by me (1pt min.)? @ -Chest x-ray obtained, my interpretation identifies no localized consolidations or infiltrates. CT interpreted by me (1pt min.)? @ -Computed tomography scan of the brain and c-spine obtained. My interpretation identifies no evidence of an acute intracranial hemorrhage, skull fracture, or cervical spine fracture. U/S interpreted by me (1pt. min.)? @ -Not obtained What testing was considered but not performed? (CT, X-rays, U/S, labs)? Why? @ -None What meds were considered but not given? Why? @ -None Did you discuss the management of the patient with other professionals? @ -Yes, Dr. Lane, who accepts the patient for admission Did you reconcile home meds? @ -No Was smoking cessation discussed for >3mins.? @ -No Was critical care preformed (if so, how long)? @ -No Were there social determinants of health that impacted care today? How? (Homelessness, low income, unemployed, alcoholism, drug addiction, transportatio n, low edu. Level, literacy, decrease access to med. care, senior care, rehab)? @ -No Was there de-escalation of care discussed even if they declined? (Discuss DNR or withdrawal of care, Hospice)? @ -No What co-morbidities impacted this encounter? (DM, HTN, Smoking, COPD, CAD, Cancer, CVA, Hep., AIDS, mental health diagnosis, sleep apnea, morbid obesity)? @ -HTN, HLD Was patient admitted / discharged? @ -Admitted. Lab work demonstrates mild leukocytosis with a white blood cell count of 11.1. Lab work consistent with rhabdomyolysis with a creatinine kinase of 1410. He also has an KANE, likely secondary to the rhabdomyolysis with a creatinine of 3.73 and eGFR of 15. Urinalysis contains a large amount of blood, likely related to the rhabdomyolysis. CT scan of the brain and C-spine obtained revealing no acute process. Chest x-ray also revealed no acute findings. Patient was fairly altered and slow to respond on exam. In some discussions he would be A&O x 3 and then not long afterwards he would not be able to answer many questions. Patient admitted to medicine for rhabdomyolysis with KANE and altered mental status. Maintenance fluids initiated and consult was placed for nephrology. Case discussed with ED attending Dr. Malloy. Undiagnosed new problem with uncertain prognosis? @ -None Drug Therapy requiring intensive monitoring for toxicity (Heparin, Nitro, Insulin, Cardizem)? @ -None Were any procedures done? @ -None Diagnosis/symptom? @ -Rhabdomyolysis, KANE, altered mental status Acute, or Chronic, or Acute on Chronic? @ -Acute Uncomplicated (without systemic symptoms) or Complicated (systemic symptoms)? @ -Complicated Side effects of treatment? @ -None Exacerbation, Progression, or Severe Exacerbation] @ -Not applicable Poses a threat to life or bodily function? @ -Yes, further renal failure can become life-threatening. - Lab Data Result diagrams: 12/08/24 11:51 12/08/24 11:51 Lab Results 12/08/24 12/08/24 12/08/24 Range/Units 11:51 11:51 11:51 WBC 11.1 H (3.8-10.6) k/uL RBC 4.83 (4.30-5.90) m/uL Hgb 13.2 (13.0-17.5) gm/dL Hct 41.7 (39.0-53.0) % MCV 86.5 (80.0-100.0) fL MCH 27.3 (25.0-35.0) pg MCHC 31.5 (31.0-37.0) g/dL RDW 17.6 H (11.5-15.5) % Plt Count 303 (150-450) k/uL MPV 7.1 Neutrophils % 79 % Lymphocytes % 12 % Monocytes % 6 % Eosinophils % 1 % Basophils % 0 % Neutrophils # 8.8 H (1.3-7.7) k/uL Lymphocytes # 1.4 (1.0-4.8) k/uL Monocytes # 0.7 (0-1.0) k/uL Eosinophils # 0.1 (0-0.7) k/uL Basophils # 0.0 (0-0.2) k/uL Hypochromasia Slight Anisocytosis Slight PT 11.1 (10.0-12.5) sec INR 1.0 (<1.2) APTT 21.6 L (22.0-30.0) sec Sodium (137-145) mmol/L Potassium (3.5-5.1) mmol/L Chloride (98-107) mmol/L Carbon Dioxide (22-30) mmol/L Anion Gap mmol/L BUN (9-20) mg/dL Creatinine (0.66-1.25) mg/dL Est GFR (CKD-EPI)AfAm (>60 ml/min/1.73 sqM) Est GFR (CKD-EPI)NonAf (>60 ml/min/1.73 sqM) Glucose (74-99) mg/dL Plasma Lactic Acid Gerardo (0.7-2.0) mmol/L Calcium (8.4-10.2) mg/dL Magnesium (1.6-2.3) mg/dL Total Bilirubin (0.2-1.3) mg/dL AST (17-59) U/L ALT (4-49) U/L Alkaline Phosphatase (38-126) U/L Creatine Kinase (55-170) U/L Troponin I (0.000-0.034) ng/mL Total Protein (6.3-8.2) g/dL Albumin (3.5-5.0) g/dL Urine Color Yellow Urine Appearance Cloudy (Clear) Urine pH 5.0 (5.0-8.0) Ur Specific Standish 1.018 (1.001-1.035) Urine Protein 1+ H (Negative) Urine Glucose (UA) Trace H (Negative) Urine Ketones Trace H (Negative) Urine Blood Moderate H (Negative) Urine Nitrite Negative (Negative) Urine Bilirubin 1+ H (Negative) Urine Urobilinogen 3.0 (<2.0) mg/dL Ur Leukocyte Esterase Trace H (Negative) Urine RBC 144 H (0-5) /hpf Urine WBC 20 H (0-5) /hpf Ur Squamous Epith Cells <1 (0-4) /hpf Urine Mucus Rare H (None) /hpf Urine Opiates Screen (NotDetected) Ur Oxycodone Screen (NotDetected) Urine Methadone Screen (NotDetected) Ur Barbiturates Screen (NotDetected) U Tricyclic Antidepress (NotDetected) Ur Phencyclidine Scrn (NotDetected) Ur Amphetamines Screen (NotDetected) U Methamphetamines Scrn (NotDetected) U Benzodiazepines Scrn (NotDetected) Urine Cocaine Screen (NotDetected) U Marijuana (THC) Screen (NotDetected) Serum Alcohol mg/dL 12/08/24 12/08/24 12/08/24 Range/Units 11:51 11:51 11:51 WBC (3.8-10.6) k/uL RBC (4.30-5.90) m/uL Hgb (13.0-17.5) gm/dL Hct (39.0-53.0) % MCV (80.0-100.0) fL MCH (25.0-35.0) pg MCHC (31.0-37.0) g/dL RDW (11.5-15.5) % Plt Count (150-450) k/uL MPV Neutrophils % % Lymphocytes % % Monocytes % % Eosinophils % % Basophils % % Neutrophils # (1.3-7.7) k/uL Lymphocytes # (1.0-4.8) k/uL Monocytes # (0-1.0) k/uL Eosinophils # (0-0.7) k/uL Basophils # (0-0.2) k/uL Hypochromasia Anisocytosis PT (10.0-12.5) sec INR (<1.2) APTT (22.0-30.0) sec Sodium 141 (137-145) mmol/L Potassium 4.5 (3.5-5.1) mmol/L Chloride 103 (98-107) mmol/L Carbon Dioxide 26 (22-30) mmol/L Anion Gap 12 mmol/L BUN 39 H (9-20) mg/dL Creatinine 3.73 H (0.66-1.25) mg/dL Est GFR (CKD-EPI)AfAm 18 (>60 ml/min/1.73 sqM) Est GFR (CKD-EPI)NonAf 15 (>60 ml/min/1.73 sqM) Glucose 109 H (74-99) mg/dL Plasma Lactic Acid Gerardo 1.7 (0.7-2.0) mmol/L Calcium 10.5 H (8.4-10.2) mg/dL Magnesium 2.1 (1.6-2.3) mg/dL Total Bilirubin 0.8 (0.2-1.3) mg/dL AST 59 (17-59) U/L ALT 15 (4-49) U/L Alkaline Phosphatase 76 (38-126) U/L Creatine Kinase 1410 H* (55-170) U/L Troponin I 0.012 (0.000-0.034) ng/mL Total Protein 7.1 (6.3-8.2) g/dL Albumin 4.5 (3.5-5.0) g/dL Urine Color Urine Appearance (Clear) Urine pH (5.0-8.0) Ur Specific Standish (1.001-1.035) Urine Protein (Negative) Urine Glucose (UA) (Negative) Urine Ketones (Negative) Urine Blood (Negative) Urine Nitrite (Negative) Urine Bilirubin (Negative) Urine Urobilinogen (<2.0) mg/dL Ur Leukocyte Esterase (Negative) Urine RBC (0-5) /hpf Urine WBC (0-5) /hpf Ur Squamous Epith Cells (0-4) /hpf Urine Mucus (None) /hpf Urine Opiates Screen (NotDetected) Ur Oxycodone Screen (NotDetected) Urine Methadone Screen (NotDetected) Ur Barbiturates Screen (NotDetected) U Tricyclic Antidepress (NotDetected) Ur Phencyclidine Scrn (NotDetected) Ur Amphetamines Screen (NotDetected) U Methamphetamines Scrn (NotDetected) U Benzodiazepines Scrn (NotDetected) Urine Cocaine Screen (NotDetected) U Marijuana (THC) Screen (NotDetected) Serum Alcohol <10 mg/dL 12/08/24 Range/Units 12:12 WBC (3.8-10.6) k/uL RBC (4.30-5.90) m/uL Hgb (13.0-17.5) gm/dL Hct (39.0-53.0) % MCV (80.0-100.0) fL MCH (25.0-35.0) pg MCHC (31.0-37.0) g/dL RDW (11.5-15.5) % Plt Count (150-450) k/uL MPV Neutrophils % % Lymphocytes % % Monocytes % % Eosinophils % % Basophils % % Neutrophils # (1.3-7.7) k/uL Lymphocytes # (1.0-4.8) k/uL Monocytes # (0-1.0) k/uL Eosinophils # (0-0.7) k/uL Basophils # (0-0.2) k/uL Hypochromasia Anisocytosis PT (10.0-12.5) sec INR (<1.2) APTT (22.0-30.0) sec Sodium (137-145) mmol/L Potassium (3.5-5.1) mmol/L Chloride (98-107) mmol/L Carbon Dioxide (22-30) mmol/L Anion Gap mmol/L BUN (9-20) mg/dL Creatinine (0.66-1.25) mg/dL Est GFR (CKD-EPI)AfAm (>60 ml/min/1.73 sqM) Est GFR (CKD-EPI)NonAf (>60 ml/min/1.73 sqM) Glucose (74-99) mg/dL Plasma Lactic Acid Gerardo (0.7-2.0) mmol/L Calcium (8.4-10.2) mg/dL Magnesium (1.6-2.3) mg/dL Total Bilirubin (0.2-1.3) mg/dL AST (17-59) U/L ALT (4-49) U/L Alkaline Phosphatase (38-126) U/L Creatine Kinase (55-170) U/L Troponin I (0.000-0.034) ng/mL Total Protein (6.3-8.2) g/dL Albumin (3.5-5.0) g/dL Urine Color Urine Appearance (Clear) Urine pH (5.0-8.0) Ur Specific Standish (1.001-1.035) Urine Protein (Negative) Urine Glucose (UA) (Negative) Urine Ketones (Negative) Urine Blood (Negative) Urine Nitrite (Negative) Urine Bilirubin (Negative) Urine Urobilinogen (<2.0) mg/dL Ur Leukocyte Esterase (Negative) Urine RBC (0-5) /hpf Urine WBC (0-5) /hpf Ur Squamous Epith Cells (0-4) /hpf Urine Mucus (None) /hpf Urine Opiates Screen Not Detected (NotDetected) Ur Oxycodone Screen Detected H (NotDetected) Urine Methadone Screen Not Detected (NotDetected) Ur Barbiturates Screen Not Detected (NotDetected) U Tricyclic Antidepress Not Detected (NotDetected) Ur Phencyclidine Scrn Not Detected (NotDetected) Ur Amphetamines Screen Not Detected (NotDetected) U Methamphetamines Scrn Not Detected (NotDetected) U Benzodiazepines Scrn Not Detected (NotDetected) Urine Cocaine Screen Not Detected (NotDetected) U Marijuana (THC) Screen Not Detected (NotDetected) Serum Alcohol mg/dL - Radiology Data Radiology results: report reviewed, image reviewed Disposition Clinical Impression: Rhabdomyolysis, KANE (acute kidney injury), Altered mental status Disposition: ADMITTED IP TO THIS [facility] Referrals: Johnny Lane MD [Primary Care Provider] - 1-2 days
[2024-12-08 12:05] LABS: Anisocytosis Slight; Basophils % (A) 0 %; Eosinophils # (A) 0.1 k/uL (0-0.7); Eosinophils % (A) 1 %; HCT 41.7 % (39.0-53.0); HGB 13.2 gm/dL (13.0-17.5); Hypochromasia Slight; Lymphocytes # (A) 1.4 k/uL (1.0-4.8); Lymphocytes % (A) 12 %; MCH 27.3 pg (25.0-35.0); MCHC 31.5 g/dL (31.0-37.0); MCV 86.5 fL (80.0-100.0); Mean Platelet Volume 7.1; Monocytes # (A) 0.7 k/uL (0-1.0); Monocytes % (A) 6 %; Neutrophils # (A) 8.8 k/uL (1.3-7.7); Neutrophils % (A) 79 %; Platelet Count 303 k/uL (150-450); RBC 4.83 m/uL (4.30-5.90); RDW 17.6 % (11.5-15.5); WBC 11.1 k/uL (3.8-10.6)
[2024-12-08] MEDS: SODIUM CHLORIDE 0.9% 1,000 ML IV ONE (12:09)
[2024-12-08 12:18] LABS: ALT 15 U/L (4-49); AST 59 U/L (17-59); African American GFR (CKD) 18 (>60 ml/min/1.73 sqM); Albumin 4.5 g/dL (3.5-5.0); Alcohol <10 mg/dL; Alkaline Phosphatase 76 U/L (38-126); Anion Gap 12 mmol/L; Blood Urea Nitrogen 39 mg/dL (9-20); Calcium 10.5 mg/dL (8.4-10.2); Carbon Dioxide 26 mmol/L (22-30); Chloride 103 mmol/L (98-107); Glucose 109 mg/dL (74-99); Magnesium 2.1 mg/dL (1.6-2.3); Non-African American GFR(CKD) 15 (>60 ml/min/1.73 sqM); Potassium 4.5 mmol/L (3.5-5.1); Sodium 141 mmol/L (137-145); Total Bilirubin 0.8 mg/dL (0.2-1.3); Total Protein 7.1 g/dL (6.3-8.2)
[2024-12-08 12:20] LABS: Appearance,Urine Cloudy (Clear); Bilirubin,Urine 1+ (Negative); Blood,Urine Moderate (Negative); Color,Urine Yellow; Glucose,Urine (UA) Trace (Negative); Ketones,Urine Trace (Negative); Leukocyte Esterase,Urine Trace (Negative); Mucus,Urine Rare /hpf; Nitrite,Urine Negative (Negative); Protein,Urine 1+ (Negative); RBC,Urine 144 /hpf (0-5); Specific Gravity,Urine 1.018 (1.001-1.035); Squamous Epithelial Cell,Urine <1 /hpf (0-4); WBC,Urine 20 /hpf (0-5)
[2024-12-08 12:29] LABS: Prothrombin Time 11.1 sec (10.0-12.5)
--- NOTE | 2024-12-08 12:43 | XR ---
Chest, 2 view. CLINICAL INDICATION: Male, 74 years old with history of Weakness COMPARISON: March 05, 2025 TECHNIQUE: PA and lateral views the chest are obtained. FINDINGS: The lungs are clear and there is no consolidative or interstitial opacity. There is no pleural effusion or pneumothorax. The heart, pulmonary vasculature, mediastinum and calvin appear normal. The osseous structures are intact. IMPRESSION: No significant abnormality seen. No acute cardiopulmonary disease. No interval change [facility], , 12/08/2024 12:41 PM
--- NOTE | 2024-12-08 12:50 | CT ---
EXAMINATION TYPE: CT brain fede esparza con DATE OF EXAM: 12/08/2024 COMPARISON: 09/23/2024 CLINICAL INDICATION: Male, 74 years old with history of AMS, fall; PHH, Fall, poor historian TECHNIQUE: CT scan of the head and cervical spine are performed without contrast. CT DLP: 1542.[address] CTDI: mGy Automated exposure control for dose reduction was used. FINDINGS Head CT: The ventricles, basal cisterns and sulci over convexities are moderately enlarged consistent with mod erate generalized atrophy. There is mild decreased density in the periventricular white matter consistent with mild chronic isch emic white matter demyelination. There is no mass effect or shift of midline structures. There is no acute intra or extra-axial hemorrhage. The posterior fossa including the brainstem, fourth ventricle and cerebellar pontine angles appear gr ossly normal. Intraorbital contents appear normal and symmetric. The paranasal sinuses are well aerated. The calvarium is intact. CT cervical spine: The craniovertebral junction relationships and prevertebral soft tissues are normal. The cervical vertebral segments are normal in height and alignment and there is no fracture or sublux ation. There is moderate to marked disc space narrowing and spondylosis from C3 through T1 consistent with m ultilevel moderate to marked degenerative disc disease. Facet joints are minimally degenerated. There is advanced degeneration of the uncovertebral joints throughout the cervical spine. There is no bony encroachment of the cervical canal. There is multilevel neural foraminal stenosis as follows; mild at C2-3 on the left, moderate to sever e at C3-4 on the right, and mild at C5-6 on the left. Impression 1. No acute bleed or mass effect 2. Calvarium intact. 3. No acute cervical spine trauma. 4. Degenerative disc disease and osteoarthritis of the uncovertebral joints in the mid-lower cervica l spine as described above. [facility], , 12/08/2024 12:48 PM
[2024-12-08 12:52] LABS: Creatine Kinase 1410 U/L (55-170)
[2024-12-08 12:53] LABS: Partial Thromboplastin Time 21.6 sec (22.0-30.0)
[2024-12-08 13:08] LABS: Amphetamine Screen,Urine Not Detected (NotDetected); Barbiturate Screen,Urine Not Detected (NotDetected); Benzodiazepines Screen,Urine Not Detected (NotDetected); Cocaine Screen,Urine Not Detected (NotDetected); Methadone Screen, Urine Not Detected (NotDetected); Opiate Screen,Urine Not Detected (NotDetected); Oxycodone Screen, Urine Detected (NotDetected); Phencyclidine Screen,Urine Not Detected (NotDetected); Tricyclic Antidepressant,Urine Not Detected (NotDetected); Urn Cannabinoid Scrn Not Detected (NotDetected)
[2024-12-08] MEDS ORDERED: ONDANSETRON 4 MG/2 ML VIAL IVP PRN (13:16)
[2024-12-08] MEDS ORDERED: NALOXONE 0.4 MG/ML 1 ML VIAL IV PRN (13:16)
[2024-12-08] MEDS ORDERED: ACETAMINOPHEN TAB 325 MG TAB PO PRN (13:16)
[2024-12-08] MEDS: SODIUM CHLORIDE 0.9% 1,000 ML IV SCH (13:47)
[2024-12-08] MEDS: MORPHINE SULFATE 4 MG/ML SYRINGE IV PRN (18:54)
--- NOTE | 2024-12-09 07:19 | P.HPIM ---
History of Present Illness H&P Date: 12/08/24 Chief Complaint: Acute kidney injury due to rhabdomyolysis/metabolic encepha lopathy HISTORY OF PRESENT ILLNESS: This is a 74-year-old male one of my patient with a previous medical history significant for hypertension and hypertensive cardiovascular disease, hyperlipidemia, obesity with obstructive sleep apnea, history of chronic alcohol use and dependence with the peripheral neuropathy, significant spondylosis of the lumbar spine with spinal stenosis and significant chronic low back pain, patient was recently hospitalized at [facility] because of increased swelling in both lower extremities, with right lower extremity cellulitis with MRSA infection due to venous ulceration, was seen and evaluated by myself as well as infectious's, he was treated with IV antibiotic in the form of vancomycin, he ended up getting transferred back to his his assisted living facility [facility], apparently the patient is not able to care for himself at this point in time, but we were not able due to insurance purposes to put the patient in subacute rehabilitation at this time, in any regard the patient was supposed to come and see him in the office for follow-up, he never showed up apparently his daughter came to check on him and she found him on the ground unknown downtime, patient was found to be quite obtunded, patient was seen in the emergency department after he was transported by EMS and he was found to have an acute kidney injury due to what appears to be rhabdomyolysis, he was started on IV fluid resuscitation in the form of normal saline at 135 cc an hour,, he will be admitted to the hospital for evaluation and treatment nephrology consultation was obtained, we will follow-up with the patient very closely patient with definitely require to have 24-hour care at this point in time as he is not able to care for himself at this point in time. Chest x-ray was reviewed and did not show evidence of acute abnormalities, CT scan of the brain did not show evidence of acute infarct or bleed, cervical spine CT showed evidence of degenerative disc disease with no evidence of fracture, twelve-lead EKG showed evidence of sinus rhythm with minimal ST elevation of the inferior leads II, III and aVF could be repolarization, however could not exclude cardiac injury, we will repeat a twelve-lead EKG again, and repeat troponin if the troponin is negative and the EKG still about the same, we will consider that repolarization patient is obtained at this point in time, does not have any complaint. REVIEW OF SYSTEMS: Patient was quite obtained and a full review of system could not be obtained. PAST MEDICAL HISTORY: 1. Hypertension and hypertensive cardiovascular disease. 2. Hyperlipidemia. 3. Hypothyroidism. 4. Chronic venous stasis with stasis dermatitis. 5. Chronic alcohol use and dependence. 6. Obstructive sleep apnea. 7. Peripheral neuropathy. 8. Vascular dementia. 9. Enlarged prostate. 10. 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 11. Restless leg syndrome. PAST SURGICAL HISTORY: 1. Laminectomies in the lumbar spine 3. 2. Tonsillectomy. 3. Hand surgery with tendon repair. SOCIAL HISTORY: Patient denies a history of smoking, he drinks about 3 beers every other day, he used to drink a lot heavier than that, he denies any drug use or abuse, he denies any marijuana use and lives along, he has a daughter who comes a check on him, only on the weekend. FAMILY HISTORY: Father at age 93 from old age. History of hypertension and myocardial infarction, mother at age of 84 from lung cancer and she was heavy smoker, patient has 2 brothers one of them is super morbid obesity and other one is okay, patient has 2 sisters one of them is 63-year-old with history of venous stasis, the other one is fine, patient has a daughter with no major medical problems 35-year-old. PHYSICAL EXAMINATION: General: This is a 75-year-old male laying down in bed appears to be quite obtunded HEENT: Head is atraumatic, normocephalic, pupils were equal round reactive to light and recommendation, extraocular muscle movement were intact, sclera nonicteric, conjunctivae were pale, mucous membranes of the mouth are somewhat dry. Neck: Supple, no JVP, normal carotid upstroke bilaterally, no lymphadenopathy. Chest: Decreased breath sounds at the bases, few rhonchi, no expiratory wheezes, no chest wall tenderness, no intercostal retractions. Heart: First heart sound is normal, second heart sound is normal there is systolic ejection murmur 2/6 located in the left sternal border. Abdomen: Soft, nontender, nondistended, positive bowel sounds. Extremities: There is chronic significant venous stasis of right lower extremity with a chronic skin changes dorsalis pedis +1 bilaterally, minimal skin ulceration to the right lower extremity with a scab on it Neurologic examination: Patient is quite obtunded laying down in bed does not follow much commands ASSESSMENT AND PLAN: 1. Acute kidney injury due to acute tubular necrosis due to rhabdomyolysis. Start the patient on normal saline at at 130 cc an hour, monitor the patient input and output and daily weight, avoid nephrotoxins, ultrasound the kidneys, nephrology consultation, repeat CMP in the next 24 hours. Repeat CPK in a daily basis 2. Metabolic encephalopathy likely due to underlying acute kidney injury. Continue IV fluid resuscitation, avoid narcotics, avoid benzodiazepine at this time, monitor the patient symptoms very closely. CT scan of the brain did not show evidence of acute abnormalities 3. Mild this elevation in the inferior lead we will repeat a twelve-lead EKG, repeat troponin high, I reviewed the EKG from prior admission did not show evidence of any repolarization at that time, we will really evaluate the patient very closely may need cardiology consultation if it is indeed ST elevation throughout any cardiac injury 4. Hypertension and hypertensive cardiovascular disease. Continue patient on metoprolol ER 50 mg once every day, losartan 100 mg orally once every day, monitor the patient blood pressure very closely. 5. Hyperlipidemia. Continue atorvastatin 40 mg daily. Keep LDL 55-70. 6. Vascular dementia. Appears to be stable at this time. 7. History of chronic alcohol use and dependence. patient has quit 8. 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 Discontinue oxycodone continue patient on pregabalin 150 mg orally twice every day. 9. Bilateral lower extremity neuropathy continue patient on Lyrica 150 mg orally twice every day. 10. Peripheral neuropathy. Continue patient on pregabalin 150 mg orally 2 times every day. 11. DVT prophylaxis. Continue Lovenox 30 mg subcutaneously every 24 hours. 12. GI prophylaxis. Continue Protonix 40 mg IV push daily for 13. Admit to inpatient. Estimate a length of stay 2 midnights. 14. Patient is full code. Past Medical History Past Medical History: Hypertension, Osteoarthritis (OA) Additional Past Medical History / Comment(s): ETOH abuse, chronic back pain, BLE neuropathy, lymphedema, multiple falls, cellulitis History of Any Multi-Drug Resistant Organisms: MRSA Date of last positivie culture/infection: 11/05/24 MDRO Source:: RT LEG, RT ankle Past Surgical History: Back Surgery, Orthopedic Surgery, Tonsillectomy Additional Past Surgical History / Comment(s): 3 back laminectomies, hand surgery s/p trauma to reattatch tendons Past Anesthesia/Blood Transfusion Reactions: No Reported Reaction Past Psychological History: No Psychological Hx Reported Smoking Status: Never smoker, Unknown if ever smoked Past Alcohol Use History: Daily, Heavy Past Drug Use History: None Reported - Past Family History Father Family Medical History: Hypertension Mother Family Medical History: Cancer Additional Family Medical History / Comment(s): Lung cancer Brother(s) Family Medical History: No Reported History Sister(s) Family Medical History: Hypertension Daughter(s) Family Medical History: No Reported History Medications and Allergies Home Medications Medication Instructions Recorded Confirmed Type Aspirin 81 mg PO DAILY tab 11/11/24 12/08/24 Rx Docusate [Colace] 100 mg PO BID cap 11/11/24 12/08/24 Rx Lactulose [Cephulac] 20 gm PO BID ml 11/11/24 12/08/24 Rx Melatonin 10 mg PO HS tab 11/11/24 12/08/24 Rx oxyCODONE-APAP 10-325MG [Percocet 1 tab PO Q4H #18 tab 11/11/24 12/08/24 Rx 10-325 mg] Atorvastatin [Lipitor] 40 mg PO HS #30 tablet 11/15/24 12/08/24 Rx Furosemide [Lasix] 40 mg PO DAILY #30 tablet 11/15/24 12/08/24 Rx Losartan Potassium [Cozaar] 100 mg PO DAILY #30 tab 11/15/24 12/08/24 Rx Pantoprazole Sodium [Protonix] 40 mg PO AC-BRKFST #30 tab 11/15/24 12/08/24 Rx Potassium Chloride ER [K-Dur 20] 20 meq PO DAILY #30 tab 11/15/24 12/08/24 Rx Metoprolol Succinate (ER) [Toprol 50 mg PO DAILY 12/08/24 12/08/24 History Xl] Pregabalin [Lyrica] 150 mg PO TID@0000,0800,1600 12/08/24 12/08/24 History Primidone [Mysoline] 25 mg PO BID 12/08/24 12/08/24 History Allergies Allergy/AdvReac Type Severity Reaction Status Date / Time No Known Allergies Allergy Verified 12/08/24 18:37 Physical Exam Vitals: Vital Signs Temp Pulse Resp BP Pulse Ox 12/08/24 13:37 65 16 110/68 12/08/24 12:09 99.4 F 70 18 125/65 98 12/08/24 11:29 98.9 F 71 18 110/69 98 Intake and Output 12/07/24 12/08/24 12/08/24 22:59 06:59 14:59 Output Total 50 Balance -50 Output: Urine 50 Condom 50 Other: Weight 86.183 kg Results CBC & Chem 7: 12/08/24 11:51 12/08/24 11:51 Labs: Abnormal Lab Results - Last 24 Hours (Table) 12/08/24 12/08/24 12/08/24 Range/Units 11:51 11:51 11:51 WBC 11.1 H (3.8-10.6) k/uL RDW 17.6 H (11.5-15.5) % Neutrophils # 8.8 H (1.3-7.7) k/uL APTT 21.6 L (22.0-30.0) sec BUN (9-20) mg/dL Creatinine (0.66-1.25) mg/dL Glucose (74-99) mg/dL Calcium (8.4-10.2) mg/dL Creatine Kinase (55-170) U/L Urine Protein 1+ H (Negative) Urine Glucose (UA) Trace H (Negative) Urine Ketones Trace H (Negative) Urine Blood Moderate H (Negative) Urine Bilirubin 1+ H (Negative) Ur Leukocyte Esterase Trace H (Negative) Urine RBC 144 H (0-5) /hpf Urine WBC 20 H (0-5) /hpf Urine Mucus Rare H (None) /hpf Ur Oxycodone Screen (NotDetected) 12/08/24 12/08/24 Range/Units 11:51 12:12 WBC (3.8-10.6) k/uL RDW (11.5-15.5) % Neutrophils # (1.3-7.7) k/uL APTT (22.0-30.0) sec BUN 39 H (9-20) mg/dL Creatinine 3.73 H (0.66-1.25) mg/dL Glucose 109 H (74-99) mg/dL Calcium 10.5 H (8.4-10.2) mg/dL Creatine Kinase 1410 H* (55-170) U/L Urine Protein (Negative) Urine Glucose (UA) (Negative) Urine Ketones (Negative) Urine Blood (Negative) Urine Bilirubin (Negative) Ur Leukocyte Esterase (Negative) Urine RBC (0-5) /hpf Urine WBC (0-5) /hpf Urine Mucus (None) /hpf Ur Oxycodone Screen Detected H (NotDetected)
--- NOTE | 2024-12-09 08:58 | US ---
EXAMINATION TYPE: US kidneys/renal and bladder DATE OF EXAM: 12/09/2024 COMPARISON: US(01/09/2021) CLINICAL INDICATION: Male, 74 years old with history of KANE/CKD3a; bilateral side pain TECHNIQUE: Grayscale imaging of the bilateral kidneys and urinary bladder: FINDINGS: EXAM MEASUREMENTS: Right Kidney: 12.3x5.3x5.2 cm Left Kidney: 12.0x6.1x4.6 cm limited scan, pt unable to hold breath well & was very shaky, pt could not sit still Right Kidney: ?slightly dilated renal pelvis Left Kidney: No hydronephrosis or masses seen, limited visualization, intercostal views used Bladder: wnl Bilateral Jets seen: limited, pt could not sit still Suboptimal study. Prominent right renal pelvis on today's study without definitive calyceal dilatatio n. IMPRESSION: Suboptimal study. Cannot exclude new right-sided hydronephrosis. Consider further investigation with possible nuclear medicine renal function study. [facility], , 12/09/2024 8:55 AM
[2024-12-09] MEDS ORDERED: PANTOPRAZOLE 40 MG/10 ML VIAL IV SCH (09:00)
[2024-12-09] MEDS: DOCUSATE 100 MG CAP PO SCH (09:15)
[2024-12-09] MEDS: PANTOPRAZOLE 40 MG TABLET PO SCH (09:15)
[2024-12-09] MEDS: ASPIRIN 81 MG PO SCH (09:15)
[2024-12-09] MEDS: METOPROLOL SUCCINATE (ER) 50 MG TAB.ER.24H PO SCH (09:15)
[2024-12-09] MEDS: ENOXAPARIN 30 MG/0.3 ML SYRINGE SQ SCH (09:16)
[2024-12-09] MEDS: HYDROcodone/APAP 5-325MG 1 EACH TAB PO PRN (09:16)
[2024-12-09 09:40] LABS: Basophils # (A) 0.06 X 10*3/uL (0.00-0.10); Basophils % (A) 0.6 %; Eosinophils # (A) 0.14 X 10*3/uL (0.04-0.35); Eosinophils % (A) 1.4 %; HGB 12.9 g/dL (13.0-17.0); Lymphocytes # (A) 2.28 X 10*3/uL (0.90-5.00); Lymphocytes % (A) 23.3 %; MCHC 31.5 g/dL (32.0-37.0); MCV 89.1 FL (80.0-97.0); Mean Platelet Volume 10.8 FL (9.5-12.2); Monocytes # (A) 1.25 X 10*3/uL (0.20-1.00); Monocytes % (A) 12.8 %; NRBC Per 100 WBC 0 X 10*3/uL (0.00-0.01); Neutrophils # (A) 6.01 X 10*3/uL (1.80-7.70); Neutrophils % (A) 61.5 %; Platelet Count 252 X 10*3/uL (140-440); RDW 19.2 % (11.5-14.5); WBC 9.78 X 10*3/uL (4.50-10.00)
--- NOTE | 2024-12-09 09:49 | P.PN ---
Subjective Progress Note Date: 12/09/24 HISTORY OF PRESENT ILLNESS: This is a 74-year-old male one of my patient with a previous medical history significant for hypertension and hypertensive cardiovascular disease, hyperlipidemia, obesity with obstructive sleep apnea, history of chronic alcohol use and dependence with the peripheral neuropathy, significant spondylosis of the lumbar spine with spinal stenosis and significant chronic low back pain, patient was recently hospitalized at [facility] because of increased swelling in both lower extremities, with right lower extremity cellulitis with MRSA infection due to venous ulceration, was seen and evaluated by myself as well as infectious's, he was treated with IV antibiotic in the form of vancomycin, he ended up getting transferred back to his his assisted living [facility], apparently the patient is not able to care for himself at this point in time, but we were not able due to insurance purposes to put the patient in subacute rehabilitation at this time, in any regard the patient was supposed to come and see him in the office for follow-up, he never showed up apparently his daughter came to check on him and she found him on the ground unknown downtime, patient was found to be quite obtunded, patient was seen in the emergency department after he was transported by EMS and he was found to have an acute kidney injury due to what appears to be rhabdomyolysis, he was started on IV fluid resuscitation in the form of normal saline at 135 cc an hour,, he will be admitted to the hospital for evaluation and treatment nephrology consultation was obtained, we will follow-up with the patient very closely patient with definitely require to have 24-hour care at this point in time as he is not able to care for himself at this point in time. Chest x-ray was reviewed and did not show evidence of acute abnormalities, CT scan of the brain did not show evidence of acute infarct or bleed, cervical spine CT showed evidence of degenerative disc disease with no evidence of fracture, twelve-lead EKG showed evidence of sinus rhythm with minimal ST elevation of the inferior leads II, III and aVF could be repolarization, however could not exclude cardiac injury, we will repeat a twelve-lead EKG again, and repeat troponin if the troponin is negative and the EKG still about the same, we will consider that repolarization patient is obtained at this point in time, does not have any complaint. 12/09: Patient is sitting up in bed is more awake and more alert today, he denies any chest pain, or shortness of breath, his complaint of increased pain since he was taken off his pain medication, he is asking me to put him back on his pain medicine, he is eating his breakfast today he has no abdominal pain nausea vomiting or diarrhea he is currently on IV fluid resuscitation in the form of normal saline at 100 cc an hour, labs are still pending the time of dictation REVIEW OF SYSTEMS: Constitutional: No documented fever, no chills, no night sweats. No weight change. positive for weakness , reports fatigue reports lethargy. Positive for daytime sleepiness. HEENT: No headache. No blurred vision or double vision, no loss of vision. No loss of Hearing, no ringing in the ears, no dizziness. No nasal drainage or congestion. No epistaxis. No sore throat. Lungs: No shortness of breath, no cough, no sputum production. No wheezing. Reports dyspnea with activity. Cardiovascular: No chest pain, positive for lower extremity edema. No pal pitations. No paroxysmal nocturnal dyspnea. No orthopnea. No lightheadedness or dizziness. No syncopal episodes.Positive for nocturia. Abdominal: No abdominal pain. No nausea, vomiting. No diarrhea. No constipation. No bloody or tarry stools . No loss of appetite. Genitourinary: No dysuria, increased frequency, urgency. No urinary retention. Musculoskeletal: positive for neck pain, positive for chronic low back pain, positive for pain in both lower extremities with significant neuropathy, positive for gait dysfunction, positive for lower extremity weakness. Integumentary: venous stasis and stasis dermatitis and venous ulcer to the left lower extremity with a scab Neurologic: No aphasia. No facial droop. Positive for memory loss. No head injury. No headache, positive for paresthesia in both lower extremities, back to baseline. Psychiatric: Patient does appear to be somewhat depressed, appears to be a bit anxious, no suicidal thoughts or ideation. Endocrine: No abnormal blood sugars, increased weight. PHYSICAL EXAMINATION: General: This is a 75-year-old male sitting up in bed in no apparent distress HEENT: Head is atraumatic, normocephalic, pupils were equal round reactive to light and recommendation, extraocular muscle movement were intact, sclera nonicteric, conjunctivae were pale, mucous membranes of the mouth are somewhat dry. Neck: Supple, no JVP, normal carotid upstroke bilaterally, no lymphadenopathy. Chest: Decreased breath sounds at the bases, few rhonchi, no expiratory wheezes, no chest wall tenderness, no intercostal retractions. Heart: First heart sound is normal, second heart sound is normal there is systolic ejection murmur 2/6 located in the left sternal border. Abdomen: Soft, nontender, nondistended, positive bowel sounds. Extremities: There is chronic significant venous stasis of right lower extremity with a chronic skin changes dorsalis pedis +1 bilaterally, minimal skin ulceration to the right lower extremity with a scab on it Neurologic examination: Patient is awake alert and oriented x 3, cranial nerves III to XII appear grossly intact, muscle power 4 out of 5 in upper extremities and 3 out of 5 in bilateral lower extremities. ASSESSMENT AND PLAN: 1. Acute kidney injury due to acute tubular necrosis due to rhabdomyolysis. Start the patient on normal saline at at 100 cc an hour, monitor the patient in put and output and daily weight, avoid nephrotoxins, ultrasound the kidneys, nephrology consultation, repeat CMP in the next 24 hours. Repeat CPK in a daily basis 2. Metabolic encephalopathy likely due to underlying acute kidney injury. Continue IV fluid resuscitation, patient is back to baseline. 3. Mild this elevation in the inferior lead we will repeat a twelve-lead EKG, repeat troponin high, I reviewed the EKG from prior admission did not show evidence of any repolarization at that time, so far this is early repolarization no evidence of any acute cardiac injury 4. Hypertension and hypertensive cardiovascular disease. Continue patient on metoprolol ER 50 mg once every day, hold losartan for now monitor the patient blood pressure very closely. 5. Hyperlipidemia. Continue to hold atorvastatin for now due to his rhabdomyolysis. 6. Vascular dementia. Appears to be stable at this time. 7. History of chronic alcohol use and dependence. patient has quit 8. 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 Restart the patient back on oxycodone as well as pregabalin. 9. Bilateral lower extremity neuropathy continue patient on Lyrica 150 mg orally 3 times every day. 10. DVT prophylaxis. Continue Lovenox 30 mg subcutaneously every 24 hours. 11. GI prophylaxis. Continue Protonix 40 mg orally once every day. 12. Physical therapy evaluation 13. 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 Objective - Vital Signs Vital signs: Vital Signs Temp 97.4 F L 12/09/24 01:43 Pulse 70 12/09/24 01:43 Resp 17 12/09/24 01:43 BP 124/67 12/09/24 01:43 Pulse Ox 99 12/09/24 01:43 FiO2 Intake & Output 12/08/24 12/09/24 12/09/24 18:59 06:59 18:59 Output Total 50 400 Balance -50 -400 Weight 86.183 kg 86.183 kg Output: Urine 50 400 Condom 50 Other: Voiding Method External Catheter # Voids 2 - Labs CBC & Chem 7: 12/09/24 02:45 12/08/24 11:51 Labs: Abnormal Lab Results - Last 24 Hours (Table) 12/08/24 12/08/24 12/08/24 Range/Units 11:51 11:51 11:51 WBC 11.1 H (3.8-10.6) k/uL RDW 17.6 H (11.5-15.5) % Neutrophils # 8.8 H (1.3-7.7) k/uL APTT 21.6 L (22.0-30.0) sec BUN (9-20) mg/dL Creatinine (0.66-1.25) mg/dL Glucose (74-99) mg/dL Calcium (8.4-10.2) mg/dL Creatine Kinase (55-170) U/L Urine Protein 1+ H (Negative) Urine Glucose (UA) Trace H (Negative) Urine Ketones Trace H (Negative) Urine Blood Moderate H (Negative) Urine Bilirubin 1+ H (Negative) Ur Leukocyte Esterase Trace H (Negative) Urine RBC 144 H (0-5) /hpf Urine WBC 20 H (0-5) /hpf Urine Mucus Rare H (None) /hpf Ur Oxycodone Screen (NotDetected) 12/08/24 12/08/24 Range/Units 11:51 12:12 WBC (3.8-10.6) k/uL RDW (11.5-15.5) % Neutrophils # (1.3-7.7) k/uL APTT (22.0-30.0) sec BUN 39 H (9-20) mg/dL Creatinine 3.73 H (0.66-1.25) mg/dL Glucose 109 H (74-99) mg/dL Calcium 10.5 H (8.4-10.2) mg/dL Creatine Kinase 1410 H* (55-170) U/L Urine Protein (Negative) Urine Glucose (UA) (Negative) Urine Ketones (Negative) Urine Blood (Negative) Urine Bilirubin (Negative) Ur Leukocyte Esterase (Negative) Urine RBC (0-5) /hpf Urine WBC (0-5) /hpf Urine Mucus (None) /hpf Ur Oxycodone Screen Detected H (NotDetected)
[2024-12-09] MEDS: oxyCODONE-APAP 10-325MG 1 EACH TAB PO SCH (10:20)
[2024-12-09 10:49] LABS: ALT 16 U/L (10-49); AST 75 U/L (14-35); Albumin/Globulin Ratio 1.74 Ratio (1.60-3.17); Alkaline Phosphatase 70 U/L (41-126); BUN/Creat Ratio 11.27 Ratio (12.00-20.00); Blood Urea Nitrogen 37.2 mg/dL (9.0-27.0); Calcium 9.9 mg/dL (8.7-10.3); Carbon Dioxide 18.2 mmol/L (21.6-31.8); Chloride 107 mmol/L (96-109); Creatine Kinase 1725 U/L (35-257); Globulin 2.3 g/dL (1.6-3.3); Glucose 94 mg/dL (70-110); Potassium 4.8 mmol/L (3.5-5.5); Sodium 143 mmol/L (135-145); Total Bilirubin 0.4 mg/dL (0.3-1.2); Total Protein 6.3 g/dL (6.2-8.2)
--- NOTE | 2024-12-09 14:09 | P.NPCON ---
History of Present Illness - Reason for Consult acute renal failure - History of Present Illness Patient is a 74-year-old male with history of hypertension and coronary artery disease and history of alcohol abuse. He is admitted to the hospital as he was found on the floor by his daughter. Unknown downtime. Patient was confused with significantly altered mentation. Serum creatinine was 3.7 on admission and has decreased to 3.3 today. Previous creatinine was 1.5 on 11/15/2024 Currently maintained on IV fluids. CK level was 1410 on admission and is 1725 today. Patient has an external catheter. Kylerosana noted on home med list, currently on hold Past Medical History Past Medical History: Hypertension, Osteoarthritis (OA) Additional Past Medical History / Comment(s): ETOH abuse, chronic back pain, BLE neuropathy, lymphedema, multiple falls, cellulitis History of Any Multi-Drug Resistant Organisms: MRSA Date of last positivie culture/infection: 11/05/24 MDRO Source:: RT LEG, RT ankle Past Surgical History: Back Surgery, Orthopedic Surgery, Tonsillectomy Additional Past Surgical History / Comment(s): 3 back laminectomies, hand surgery s/p trauma to reattatch tendons Past Anesthesia/Blood Transfusion Reactions: No Reported Reaction Past Psychological History: No Psychological Hx Reported Smoking Status: Never smoker, Unknown if ever smoked Past Alcohol Use History: Daily, Heavy Past Drug Use History: None Reported - Past Family History Father Family Medical History: Hypertension Mother Family Medical History: Cancer Additional Family Medical History / Comment(s): Lung cancer Brother(s) Family Medical History: No Reported History Sister(s) Family Medical History: Hypertension Daughter(s) Family Medical History: No Reported History Medications and Allergies Home Medications Medication Instructions Recorded Confirmed Type Aspirin 81 mg PO DAILY tab 11/11/24 12/08/24 Rx Docusate [Colace] 100 mg PO BID cap 11/11/24 12/08/24 Rx Lactulose [Cephulac] 20 gm PO BID ml 11/11/24 12/08/24 Rx Melatonin 10 mg PO HS tab 11/11/24 12/08/24 Rx oxyCODONE-APAP 10-325MG [Percocet 1 tab PO Q4H #18 tab 11/11/24 12/08/24 Rx 10-325 mg] Atorvastatin [Lipitor] 40 mg PO HS #30 tablet 11/15/24 12/08/24 Rx Furosemide [Lasix] 40 mg PO DAILY #30 tablet 11/15/24 12/08/24 Rx Losartan Potassium [Cozaar] 100 mg PO DAILY #30 tab 11/15/24 12/08/24 Rx Pantoprazole Sodium [Protonix] 40 mg PO AC-BRKFST #30 tab 11/15/24 12/08/24 Rx Potassium Chloride ER [K-Dur 20] 20 meq PO DAILY #30 tab 11/15/24 12/08/24 Rx Metoprolol Succinate (ER) [Toprol 50 mg PO DAILY 12/08/24 12/08/24 History Xl] Pregabalin [Lyrica] 150 mg PO TID@0000,0800,1600 12/08/24 12/08/24 History Primidone [Mysoline] 25 mg PO BID 12/08/24 12/08/24 History Allergies Allergy/AdvReac Type Severity Reaction Status Date / Time No Known Allergies Allergy Verified 12/08/24 18:37 Physical Exam Vitals: Vital Signs Temp Pulse Resp BP Pulse Ox 12/09/24 08:00 98.3 F 70 18 142/76 97 12/09/24 01:43 97.4 F L 70 17 124/67 99 12/08/24 21:32 98.9 F 76 17 185/101 95 Intake and Output 12/08/24 12/09/24 12/09/24 22:59 06:59 14:59 Output Total 400 Balance -400 Output: Urine 400 Other: Voiding Method External Catheter Urinal # Voids 2 Weight 86.183 kg Patient is awake, comfortable, no acute distress Examination of the heart S1 and S2 Examination of the lungs bilateral breath sounds are heard Abdomen is soft nontender Examination of lower extremities shows chronic skin changes Moving all 4 extremities Results - Lab Results Most recent lab results Calcium 9.9 mg/dL (8.7-10.3) 12/09/24 02:45 Phosphorus 3.6 mg/dL (2.5-4.5) 12/08/24 15:28 Magnesium 2.1 mg/dL (1.6-2.3) 12/08/24 11:51 12/09/24 02:45 12/09/24 02:45 Assessment and Plan Assessment: 1. Acute kidney injury, ATN, and component of obstructive uropathy. UA shows 1+ protein moderate blood and WBCs 20. Ultrasound shows possibly dilated right renal pelvis/hydronephrosis 2. Mild hypercalcemia noted on initial admission, improved with IV hydration. Etiology is likely related to volume contraction. No calcium supplements noted on home med list. 3. Mental status changes 4. Rhabdomyolysis with CK level trending up. It is not elevated enough to contribute significantly to acute kidney injury. 5. Hypertension with Cozaar currently on hold Plan: Continue IV fluids Change to Ringer lactate given the mild metabolic acidosis Repeat CK in a.m. Agree with urology consult Patient may need Ospina catheter placement. Check postvoid residual Thank you for the consultation. We will continue to follow the patient with you during his hospitalization.
[2024-12-09] MEDS: LACTATED RINGERS 1,000 ML IV SCH (14:31)
[2024-12-09] MEDS: SODIUM CHLORIDE 0.9% 500 ML 500 ML IV ONE (16:11)
[2024-12-09] MEDS: PREGABALIN 75 MG CAP PO SCH (16:11)
--- NOTE | 2024-12-09 16:58 | CT ---
EXAMINATION TYPE: CT abdomen pelvis wo con DATE OF EXAM: 12/09/2024 4:49 PM COMPARISON: CT abdomen pelvis most recent from 12/09/2024. CLINICAL INDICATION: Male, 74 years old with history of Right hydronephrosis; Right hydronephrosis. TECHNIQUE: Axial CT abdomen pelvis wo con;Sagittal and coronal reformats were created on a separate workstation. Contrast used: mL of , (none if empty) Oral contrast used: with Oral Contrast (none if empty) CT DLP: 1057.4 mGycm, Automated exposure control for dose reduction was used. FINDINGS: LOWER CHEST: Unremarkable ABDOMEN LIVER: Unremarkable GALLBLADDER AND BILE DUCTS: Unremarkable. PANCREAS: Unremarkable. SPLEEN: Unremarkable. ADRENAL GLANDS: Unremarkable. KIDNEYS AND URETERS: No evidence of hydronephrosis or obstructing renal calculus. The ureters are unr emarkable. Peripelvic renal cysts bilaterally. No follow-up recommended. Calcifications in the renal sinus measuring up to 5 mm on the left. No calculi on the right. PELVIS BLADDER: No evidence for wall thickening or mass given limitations of exam. REPRODUCTIVE: Unremarkable. ABDOMEN & PELVIS STOMACH AND BOWEL: No evidence of bowel obstruction. Large stool burden in the rectum and up to 8.2 c m in transverse dimension. PERITONEUM/RETROPERITONEUM: No evidence of pneumoperitoneum or free fluid. VASCULATURE: No evidence of aortic aneurysm. MUSCULOSKELETAL: No acute osseous abnormalities. Disc degeneration changes are present throughout the thoracolumbar spine. LYMPH NODES: No gross evidence for lymphadenopathy. SOFT TISSUE/ABDOMINAL WALL: Fat-containing umbilical hernia measuring 1.8 cm the neck. Bilateral fat- containing inguinal hernias. IMPRESSION: 1. No evidence for hydronephrosis or obstructive uropathy. 2. Peripelvic renal cysts are present bilaterally. No follow-up recommended. 3. Nonobstructing left renal calculus. 4. Large fecal burden in the rectum correlate for rectal outlet obstruction. 5. Moderate fat-containing inguinal hernia about fat-containing moderate severe degeneration changes of the spine. Multilevel neural foraminal stenosis and spinal canal stenosis of at least mild to mod erate severity. [facility], , 12/09/2024 4:56 PM
[2024-12-09] MEDS: MELATONIN 5 MG TABLET PO SCH (20:52)
[2024-12-09] MEDS: LACTULOSE 20 GM/30 ML CUP PO SCH (22:02)
--- NOTE | 2024-12-10 10:27 | P.PN ---
Subjective Progress Note Date: 12/10/24 HISTORY OF PRESENT ILLNESS: This is a 74-year-old male one of my patient with a previous medical history significant for hypertension and hypertensive cardiovascular disease, hyperlipidemia, obesity with obstructive sleep apnea, history of chronic alcohol use and dependence with the peripheral neuropathy, significant spondylosis of the lumbar spine with spinal stenosis and significant chronic low back pain, patient was recently hospitalized at [facility] because of increased swelling in both lower extremities, with right lower extremity cellulitis with MRSA infection due to venous ulceration, was seen and evaluated by myself as well as infectious's, he was treated with IV antibiotic in the form of vancomycin, he ended up getting transferred back to his [facility], apparently the patient is not able to care for himself at this point in time, but we were not able due to insurance purposes to put the patient in subacute rehabilitation at this time, in any regard the patient was supposed to come and see him in the office for follow-up, he never showed up apparently his daughter came to check on him and she found him on the ground unknown downtime, patient was found to be quite obtunded, patient was seen in the emergency department after he was transported by EMS and he was found to have an acute kidney injury due to what appears to be rhabdomyolysis, he was started on IV fluid resuscitation in the form of normal saline at 135 cc an hour,, he will be admitted to the hospital for evaluation and treatment nephrology consultation was obtained, we will follow-up with the patient very closely patient with definitely require to have 24-hour care at this point in time as he is not able to care for himself at this point in time. Chest x-ray was reviewed and did not show evidence of acute abnormalities, CT scan of the brain did not show evidence of acute infarct or bleed, cervical spine CT showed evidence of degenerative disc disease with no evidence of fracture, twelve-lead EKG showed evidence of sinus rhythm with minimal ST elevation of the inferior leads II, III and aVF could be repolarization, however could not exclude cardiac injury, we will repeat a twelve-lead EKG again, and repeat troponin if the troponin is negative and the EKG still about the same, we will consider that repolarization patient is obtained at this point in time, does not have any complaint. 12/09: Patient is sitting up in bed is more awake and more alert today, he denies any chest pain, or shortness of breath, his complaint of increased pain since he was taken off his pain medication, he is asking me to put him back on his pain medicine, he is eating his breakfast today he has no abdominal pain nausea vomiting or diarrhea he is currently on IV fluid resuscitation in the form of normal saline at 100 cc an hour, labs are still pending the time of dictation 12/10: Patient is sitting up in bed appears to be somewhat confused today, he continues to have some myoclonic jerks in the left upper extremity, he had a severe diarrhea, will discontinue lactulose at this point in time, we will decrease his Lyrica to 150 mg orally twice every day due to his creatinine clearance, monitor the patient very closely, patient was seen in consultation by urology yesterday had a CT scan of the abdomen pelvis that did not show evidence of any right hydronephrosis, it did show parapelvic cyst no new intervention is needed at this time, follow-up with the patient very closely REVIEW OF SYSTEMS: Constitutional: No documented fever, no chills, no night sweats. No weight change. positive for weakness , reports fatigue reports lethargy. Positive for daytime sleepiness. HEENT: No headache. No blurred vision or double vision, no loss of vision. No loss of Hearing, no ringing in the ears, no dizziness. No nasal drainage or congestion. No epistaxis. No sore throat. Lungs: No shortness of breath, no cough, no sputum production. No wheezing. Reports dyspnea with activity. Cardiovascular: No chest pain, positive for lower extremity edema. No palpitations. No paroxysmal nocturnal dyspnea. No orthopnea. No lightheadedness or dizziness. No syncopal episodes.Positive for nocturia. Abdominal: No abdominal pain. No nausea, vomiting. Positive diarrhea. No constipation. No bloody or tarry stools . No loss of appetite. Genitourinary: No dysuria, increased frequency, urgency. No urinary retention. Musculoskeletal: positive for neck pain, positive for chronic low back pain, positive for pain in both lower extremities with significant neuropathy, positive for gait dysfunction, positive for lower extremity weakness. Integumentary: venous stasis and stasis dermatitis and venous ulcer to the left lower extremity with a scab Neurologic: No aphasia. No facial droop. Positive for memory loss. No head injury. No headache, positive for paresthesia in both lower extremities, continues to be bit confused. With minimal myoclonic jerks Psychiatric: Patient does appear to be somewhat depressed, appears to be a bit anxious, no suicidal thoughts or ideation. Endocrine: No abnormal blood sugars, increased weight. PHYSICAL EXAMINATION: General: This is a 75-year-old male sitting up in bed in no apparent distress HEENT: Head is atraumatic, normocephalic, pupils were equal round reactive to light and recommendation, extraocular muscle movement were intact, sclera nonicteric, conjunctivae were pale, mucous membranes of the mouth are somewhat dry. Neck: Supple, no JVP, normal carotid upstroke bilaterally, no lymphadenopathy. Chest: Decreased breath sounds at the bases, few rhonchi, no expiratory wheezes, no chest wall tenderness, no intercostal retractions. Heart: First heart sound is normal, second heart sound is normal there is systolic ejection murmur 2/6 located in the left sternal border. Abdomen: Soft, nontender, nondistended, positive bowel sounds. Extremities: There is chronic significant venous stasis of right lower extremity with a chronic skin changes dorsalis pedis +1 bilaterally, minimal skin ulceration to the right lower extremity with a scab on it Neurologic examination: Patient is awake alert and oriented x 3, cranial nerves III to XII appear grossly intact, muscle power 4 out of 5 in upper extremities and 3 out of 5 in bilateral lower extremities. ASSESSMENT AND PLAN: 1. Acute kidney injury due to acute tubular necrosis due to rhabdomyolysis. Continue IV fluid resuscitation in the form of lactated Ringer's at 70 cc an hour monitor the patient input and output and daily weight, his CPK still elevated, repeat in the next 24 hours, will continue to follow the patient very closely, CT scan of the abdomen pelvis was done yesterday did not show evidence of any hydronephrosis, urology consultation appreciated, patient has been followed by nephrology as well 2. Metabolic encephalopathy likely due to underlying acute kidney injury. Continue IV fluid resuscitation, change Percocet to every 6 hours as needed, decrease pregabalin to 150 mg orally twice every day due to decreased creatinine clearance 3. Mild ST elevation in the inferior lead we will repeat a twelve-lead EKG, likely repolarization. No evidence of acute cardiac injury 4. Hypertension and hypertensive cardiovascular disease. Continue patient on metoprolol ER 50 mg once every day, monitor the patient blood pressure very closely 5. Hyperlipidemia. Continue to hold atorvastatin for now due to his rhabdomyolysis. 6. Vascular dementia. Appears to be stable at this time. 7. History of chronic alcohol use and dependence. patient has quit 8. 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 change pain management to Percocet every 6 hours as needed, decrease pregabalin to 150 mg orally twice every day 9. Bilateral lower extremity neuropathy continue patient on Lyrica 150 mg orally 2 times every day. 10. DVT prophylaxis. Continue Lovenox 30 mg subcutaneously every 24 hours. 11. GI prophylaxis. Continue Protonix 40 mg orally once every day. 12. 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 14. Diarrhea likely due to current bowel regimen discontinue lactulose discontinue Colace, increase IV fluid resuscitation, increase oral intake of fluid, repeat labs tomorrow morning Objective - Vital Signs Vital signs: Vital Signs Temp 98.5 F 12/10/24 07:30 Pulse 81 12/10/24 07:30 Resp 18 12/10/24 07:30 BP 106/60 12/10/24 07:30 Pulse Ox 92 L 12/10/24 07:30 FiO2 Intake & Output 12/09/24 12/10/24 12/10/24 18:59 06:59 18:59 Output Total 300 Balance -300 Output: Urine 300 Other: Voiding Method Urinal Urinal Urinal External Catheter # Voids 2 1 # Bowel Movements 1 1 - Labs CBC & Chem 7: 12/09/24 02:45 12/09/24 02:45 Labs: Abnormal Lab Results - Last 24 Hours (Table) 12/09/24 Range/Units 02:45 Carbon Dioxide 18.2 L (21.6-31.8) mmol/L Anion Gap 17.80 H (4.00-12.00) mmol/L BUN 37.2 H (9.0-27.0) mg/dL Creatinine 3.3 H (0.6-1.5) mg/dL Est GFR (CKD-EPI) 19 L (>=60) BUN/Creatinine Ratio 11.27 L (12.00-20.00) Ratio AST 75 H (14-35) U/L Creatine Kinase 1725 H (35-257) U/L Microbiology - Last 24 Hours (Table) 12/08/24 11:51 Urine Culture - Final Urine,Voided
--- NOTE | 2024-12-10 12:50 | P.PN ---
Subjective Patient is seen for follow-up for acute kidney injury Maintained on IV fluids Renal function has improved with creatinine down to 3.3 yesterday. Labs are pending from today. No significant complaints today except for weakness Objective - Vital Signs Vital signs: Vital Signs Temp 98.5 F 12/10/24 07:30 Pulse 81 12/10/24 07:30 Resp 18 12/10/24 07:30 BP 106/60 12/10/24 07:30 Pulse Ox 92 L 12/10/24 07:30 FiO2 Intake & Output 12/09/24 12/10/24 12/10/24 18:59 06:59 18:59 Output Total 300 Balance -300 Output: Urine 300 Other: Voiding Method Urinal Urinal Urinal External Catheter # Voids 2 1 1 # Bowel Movements 1 1 2 - Exam Patient is awake, comfortable, no acute distress Examination of the heart S1 and S2 Examination of the lungs bilateral breath sounds are heard Abdomen is soft nontender Examination of lower extremities shows chronic skin changes Moving all 4 extremities - Labs CBC & Chem 7: 12/09/24 02:45 12/09/24 02:45 Labs: Microbiology - Last 24 Hours (Table) 12/08/24 11:51 Urine Culture - Final Urine,Voided Assessment and Plan Assessment: 1. Acute kidney injury, ATN, and component of obstructive uropathy. UA shows 1+ protein moderate blood and WBCs 20. Ultrasound shows possibly dilated right renal pelvis/hydronephrosis. CT abdomen was done yesterday and did not show any evidence of hydronephrosis. Previous creatinine 1.5 on 11/15/2024 2. Mild hypercalcemia noted on initial admission, improved with IV hydration. Etiology is likely related to volume contraction. No calcium supplements noted on home med list. 3. Mental status changes 4. Rhabdomyolysis with CK level trending up. It is not elevated enough to contribute significantly to acute kidney injury. 5. Hypertension with Cozaar currently on hold Plan: Continue IV fluids Repeat CK in a.m. Check bladder scan Repeat labs in a.m.
--- NOTE | 2024-12-10 13:08 | P.GSCN ---
History of Present Illness Consult date: 12/10/24 Reason for Consult: Hydronephrosis Requesting physician: Johnny Lane History of present illness: The patient is a 74-year-old white male found on the ground for an indeterminate time period. He was obtunded and brought to the ER, at which time he was found to have acute kidney injury likely due to rhabdomyolysis. Renal ultrasound was obtained, suggesting the presence of right hydronephrosis. However, CT scan was subsequently obtained, showing no evidence of hydronephrosis. The patient has an unremarkable urologic history. Review of Systems - Genitourinary Denies dysuria, Denies flank pain, Denies hematuria Past Medical History Past Medical History: Hypertension, Osteoarthritis (OA) Additional Past Medical History / Comment(s): ETOH abuse, chronic back pain, BLE neuropathy, lymphedema, multiple falls, cellulitis History of Any Multi-Drug Resistant Organisms: MRSA Year Discovered:: 11/05/24 MDRO Source:: RT LEG, RT ankle Past Surgical History: Back Surgery, Orthopedic Surgery, Tonsillectomy Additional Past Surgical History / Comment(s): 3 back laminectomies, hand surgery s/p trauma to reattatch tendons Past Anesthesia/Blood Transfusion Reactions: No Reported Reaction Past Psychological History: No Psychological Hx Reported Smoking Status: Never smoker, Unknown if ever smoked Past Alcohol Use History: Daily, Heavy Past Drug Use History: None Reported - Past Family History Father Family Medical History: Hypertension Mother Family Medical History: Cancer Additional Family Medical History / Comment(s): Lung cancer Brother(s) Family Medical History: No Reported History Sister(s) Family Medical History: Hypertension Daughter(s) Family Medical History: No Reported History Medications and Allergies Home Medications Medication Instructions Recorded Confirmed Type Aspirin 81 mg PO DAILY tab 11/11/24 12/08/24 Rx Docusate [Colace] 100 mg PO BID cap 11/11/24 12/08/24 Rx Lactulose [Cephulac] 20 gm PO BID ml 11/11/24 12/08/24 Rx Melatonin 10 mg PO HS tab 11/11/24 12/08/24 Rx oxyCODONE-APAP 10-325MG [Percocet 1 tab PO Q4H #18 tab 11/11/24 12/08/24 Rx 10-325 mg] Atorvastatin [Lipitor] 40 mg PO HS #30 tablet 11/15/24 12/08/24 Rx Furosemide [Lasix] 40 mg PO DAILY #30 tablet 11/15/24 12/08/24 Rx Losartan Potassium [Cozaar] 100 mg PO DAILY #30 tab 11/15/24 12/08/24 Rx Pantoprazole Sodium [Protonix] 40 mg PO AC-BRKFST #30 tab 11/15/24 12/08/24 Rx Potassium Chloride ER [K-Dur 20] 20 meq PO DAILY #30 tab 11/15/24 12/08/24 Rx Metoprolol Succinate (ER) [Toprol 50 mg PO DAILY 12/08/24 12/08/24 History Xl] Pregabalin [Lyrica] 150 mg PO TID@0000,0800,1600 12/08/24 12/08/24 History Primidone [Mysoline] 25 mg PO BID 12/08/24 12/08/24 History Allergies Allergy/AdvReac Type Severity Reaction Status Date / Time No Known Allergies Allergy Verified 12/08/24 18:37 Surgical - Exam Vital Signs Temp Pulse Resp BP Pulse Ox 98.9 F 71 18 110/69 98 12/08/24 11:29 12/08/24 11:29 12/08/24 11:29 12/08/24 11:29 12/08/24 11:29 - General well developed, well nourished, no distress - Respiratory normal respiratory effort - Abdomen Abdomen: soft, non tender, no guarding, no rigid, no rebound - Psychiatric oriented to time, oriented to person, oriented to place, speech is normal, memory intact Results - Labs 12/09/24 02:45 12/09/24 02:45 Abnormal Lab Results - Last 24 Hours (Table) 12/09/24 12/09/24 Range/Units 02:45 02:45 Hgb 12.9 L (13.0-17.0) g/dL MCHC 31.5 L (32.0-37.0) g/dL RDW 19.2 H (11.5-14.5) % Monocytes # 1.25 H (0.20-1.00) X 10*3/uL Carbon Dioxide 18.2 L (21.6-31.8) mmol/L Anion Gap 17.80 H (4.00-12.00) mmol/L BUN 37.2 H (9.0-27.0) mg/dL Creatinine 3.3 H (0.6-1.5) mg/dL Est GFR (CKD-EPI) 19 L (>=60) BUN/Creatinine Ratio 11.27 L (12.00-20.00) Ratio AST 75 H (14-35) U/L Creatine Kinase 1725 H (35-257) U/L Microbiology - Last 24 Hours (Table) 12/08/24 11:51 Urine Culture - Final Urine,Voided Diabetes panel 12/09/24 Range/Units 02:45 Sodium 143 (135-145) mmol/L Potassium 4.8 (3.5-5.5) mmol/L Chloride 107 (96-109) mmol/L Carbon Dioxide 18.2 L (21.6-31.8) mmol/L BUN 37.2 H (9.0-27.0) mg/dL Creatinine 3.3 H (0.6-1.5) mg/dL Glucose 94 (70-110) mg/dL Calcium 9.9 (8.7-10.3) mg/dL AST 75 H (14-35) U/L ALT 16 (10-49) U/L Alkaline Phosphatase 70 (41-126) U/L Total Protein 6.3 (6.2-8.2) g/dL Albumin 4.0 (3.8-4.9) g/dL Calcium panel 12/09/24 Range/Units 02:45 Calcium 9.9 (8.7-10.3) mg/dL Albumin 4.0 (3.8-4.9) g/dL Pituitary panel 12/09/24 Range/Units 02:45 Sodium 143 (135-145) mmol/L Potassium 4.8 (3.5-5.5) mmol/L Chloride 107 (96-109) mmol/L Carbon Dioxide 18.2 L (21.6-31.8) mmol/L BUN 37.2 H (9.0-27.0) mg/dL Creatinine 3.3 H (0.6-1.5) mg/dL Glucose 94 (70-110) mg/dL Calcium 9.9 (8.7-10.3) mg/dL Adrenal panel 12/09/24 Range/Units 02:45 Sodium 143 (135-145) mmol/L Potassium 4.8 (3.5-5.5) mmol/L Chloride 107 (96-109) mmol/L Carbon Dioxide 18.2 L (21.6-31.8) mmol/L BUN 37.2 H (9.0-27.0) mg/dL Creatinine 3.3 H (0.6-1.5) mg/dL Glucose 94 (70-110) mg/dL Calcium 9.9 (8.7-10.3) mg/dL Total Bilirubin 0.4 (0.3-1.2) mg/dL AST 75 H (14-35) U/L ALT 16 (10-49) U/L Alkaline Phosphatase 70 (41-126) U/L Total Protein 6.3 (6.2-8.2) g/dL Albumin 4.0 (3.8-4.9) g/dL - Imaging CT scan - abdomen: report reviewed, image reviewed US - kidney/bladder: report reviewed Assessment and Plan (1) Renal cyst Current Visit: Yes Status: Acute Code(s): N28.1 - CYST OF KIDNEY, ACQUIRED SNOMED Code(s): 845777358 (2) Calculus of kidney Current Visit: Yes Status: Acute Code(s): N20.0 - CALCULUS OF KIDNEY SNOMED Code(s): 67839546 Plan: I reassured the patient that the CT scan shows no evidence of hydronephrosis. He has a 5 mm nonobstructing left renal calculus which will require treatment only if he becomes symptomatic in the future. Please notify me if I can be of any further assistance during this hospitalization. Time with Patient: Greater than 30
[2024-12-10 13:51] LABS: African American GFR (CKD) 29 (>60 ml/min/1.73 sqM); Anion Gap 10 mmol/L; Blood Urea Nitrogen 40 mg/dL (9-20); Calcium 9.1 mg/dL (8.4-10.2); Carbon Dioxide 20 mmol/L (22-30); Chloride 105 mmol/L (98-107); Glucose 128 mg/dL (74-99); Non-African American GFR(CKD) 25 (>60 ml/min/1.73 sqM); Potassium 4.1 mmol/L (3.5-5.1); Sodium 135 mmol/L (137-145)
[2024-12-10] MEDS: LACTATED RINGERS 1,000 ML IV ONE (15:34)
[2024-12-10] MEDS: PREGABALIN 75 MG CAP PO SCH (20:23)
[2024-12-11] MEDS: oxyCODONE-APAP 10-325MG 1 EACH TAB PO PRN (00:26)
--- NOTE | 2024-12-11 10:03 | P.PN ---
Subjective Progress Note Date: 12/11/24 HISTORY OF PRESENT ILLNESS: This is a 74-year-old male one of my patient with a previous medical history significant for hypertension and hypertensive cardiovascular disease, hyperlipidemia, obesity with obstructive sleep apnea, history of chronic alcohol use and dependence with the peripheral neuropathy, significant spondylosis of the lumbar spine with spinal stenosis and significant chronic low back pain, patient was recently hospitalized at [facility] because of increased swelling in both lower extremities, with right lower extremity cellulitis with MRSA infection due to venous ulceration, was seen and evaluated by myself as well as infectious's, he was treated with IV antibiotic in the form of vancomycin, he ended up getting transferred back to his his assisted living [facility], apparently the patient is not able to care for himself at this point in time, but we were not able due to insurance purposes to put the patient in subacute rehabilitation at this time, in any regard the patient was supposed to come and see him in the office for follow-up, he never showed up apparently his daughter came to check on him and she found him on the ground unknown downtime, patient was found to be quite obtunded, patient was seen in the emergency department after he was transported by EMS and he was found to have an acute kidney injury due to what appears to be rhabdomyolysis, he was started on IV fluid resuscitation in the form of normal saline at 135 cc an hour,, he will be admitted to the hospital for evaluation and treatment nephrology consultation was obtained, we will follow-up with the patient very closely patient with definitely require to have 24-hour care at this point in time as he is not able to care for himself at this point in time. Chest x-ray was reviewed and did not show evidence of acute abnormalities, CT scan of the brain did not show evidence of acute infarct or bleed, cervical spine CT showed evidence of degenerative disc disease with no evidence of fracture, twelve-lead EKG showed evidence of sinus rhythm with minimal ST elevation of the inferior leads II, III and aVF could be repolarization, however could not exclude cardiac injury, we will repeat a twelve-lead EKG again, and repeat troponin if the troponin is negative and the EKG still about the same, we will consider that repolarization patient is obtained at this point in time, does not have any complaint. 12/09: Patient is sitting up in bed is more awake and more alert today, he denies any chest pain, or shortness of breath, his complaint of increased pain since he was taken off his pain medication, he is asking me to put him back on his pain medicine, he is eating his breakfast today he has no abdominal pain nausea vomiting or diarrhea he is currently on IV fluid resuscitation in the form of normal saline at 100 cc an hour, labs are still pending the time of dictation 12/10: Patient is sitting up in bed appears to be somewhat confused today, he continues to have some myoclonic jerks in the left upper extremity, he had a severe diarrhea, will discontinue lactulose at this point in time, we will decrease his Lyrica to 150 mg orally twice every day due to his creatinine clearance, monitor the patient very closely, patient was seen in consultation by urology yesterday had a CT scan of the abdomen pelvis that did not show evidence of any right hydronephrosis, it did show parapelvic cyst no new intervention is needed at this time, follow-up with the patient very closely 12/11: Patient sitting up in the recliner chair, he appears to be somewhat con fused, appears to be dizzy, he is asking for pain medication yet his blood pressures appear to be on the lower side, he had episode of double vision yesterday, he did receive lactated Ringer's yesterday 1 L, he is IV fluid was increased to 100 cc an hour, he is having less myoclonic jerks today, today he continues to have some dizzy spells, will send the patient for CT scan of the brain without contrast, I will continue IV fluid resuscitation, repeat his labs today, discontinue his metoprolol completely, follow-up with the patient very closely REVIEW OF SYSTEMS: Constitutional: No documented fever, no chills, no night sweats. No weight change. positive for weakness , reports fatigue reports lethargy. Positive for daytime sleepiness. HEENT: No headache. No blurred vision or double vision, no loss of vision. No loss of Hearing, no ringing in the ears, no dizziness. No nasal drainage or congestion. No epistaxis. No sore throat. Lungs: No shortness of breath, no cough, no sputum production. No wheezing. Reports dyspnea with activity. Cardiovascular: No chest pain, positive for lower extremity edema. No palpitations. No paroxysmal nocturnal dyspnea. No orthopnea. No li ghtheadedness or dizziness. No syncopal episodes.Positive for nocturia. Abdominal: No abdominal pain. No nausea, vomiting. Positive diarrhea. No constipation. No bloody or tarry stools . No loss of appetite. Genitourinary: No dysuria, increased frequency, urgency. No urinary retention. Musculoskeletal: positive for neck pain, positive for chronic low back pain, positive for pain in both lower extremities with significant neuropathy, positive for gait dysfunction, positive for lower extremity weakness. Integumentary: venous stasis and stasis dermatitis and venous ulcer to the left lower extremity with a scab Neurologic: No aphasia. No facial droop. Positive for memory loss. No head injury. No headache, positive for paresthesia in both lower extremities, continues to be bit confused. With minimal myoclonic jerks Psychiatric: Patient does appear to be somewhat depressed, appears to be a bit anxious, no suicidal thoughts or ideation. Endocrine: No abnormal blood sugars, increased weight. PHYSICAL EXAMINATION: General: This is a 74-year-old male sitting up in the recliner chair appears to be okay. HEENT: Head is atraumatic, normocephalic, pupils were equal round reactive to light and recommendation, extraocular muscle movement were intact, sclera sandy cteric, conjunctivae were pale, mucous membranes of the mouth are somewhat dry. Neck: Supple, no JVP, normal carotid upstroke bilaterally, no lymphadenopathy. Chest: Decreased breath sounds at the bases, few rhonchi, minimal expiratory wheezes, no chest wall tenderness, no intercostal retractions. Heart: First heart sound is normal, second heart sound is normal there is systolic ejection murmur 2/6 located in the left sternal border. Abdomen: Soft, nontender, nondistended, positive bowel sounds. Extremities: There is chronic significant venous stasis of right lower extremity with a chronic skin changes dorsalis pedis +1 bilaterally, minimal skin ulceration to the right lower extremity with a scab on it Neurologic examination: Patient is awake alert and oriented x 3, cranial nerves III to XII appear grossly intact, muscle power 4 out of 5 in upper extremities and 2 out of 5 in bilateral lower extremities. ASSESSMENT AND PLAN: 1. Acute kidney injury due to acute tubular necrosis due to rhabdomyolysis. Continue lactated Ringer's at 100 cc an hour, monitor the patient CMP today, r epeat CPK today. Nephrology consultation appreciated. 2. Metabolic encephalopathy likely due to underlying acute kidney injury rule out ischemic event continue IV fluid resuscitation, change Percocet to every 6 hours as needed, decrease pregabalin to 150 mg orally twice every day due to decreased creatinine clearance obtain CT scan of the brain without contrast. 3. Mild ST elevation in the inferior lead due to early repolarization. 4. Hypertension and hypertensive cardiovascular disease. Currently hypotensive discontinue metoprolol for now, continue IV fluid, monitor the patient blood pressure very closely. 5. Hyperlipidemia. Continue to hold atorvastatin for now due to his rhabd omyolysis. 6. Vascular dementia. Appears to be stable at this time. 7. History of chronic alcohol use and dependence. patient has quit 8. 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 change pain management to Percocet every 6 hours as needed, decreased pregabalin to 150 mg orally twice every day 9. Bilateral lower extremity neuropathy continue patient on Lyrica 150 mg orally 2 times every day. 10. DVT prophylaxis. Continue Lovenox 30 mg subcutaneously every 24 hours. 11. GI prophylaxis. Continue Protonix 40 mg orally once every day. 12. Physical therapy evaluation 13. nephrology social worker consultation for discharge planning. 14. medical debility likely will require subacute rehabilitation. Objective - Vital Signs Vital signs: Vital Signs Temp 99.1 F 12/11/24 07:30 Pulse 93 12/11/24 07:30 Resp 16 12/11/24 07:30 BP 80/46 12/11/24 09:33 Pulse Ox 96 12/11/24 07:30 FiO2 Intake & Output 12/10/24 12/11/24 12/11/24 18:59 06:59 18:59 Intake Total 2600 Output Total 900 Balance 1700 Intake: Oral 2600 Output: Urine 900 Other: Voiding Method Urinal Urinal External Catheter External Catheter # Voids 1 # Bowel Movements 3 2 - Labs CBC & Chem 7: 12/09/24 02:45 12/10/24 13:16 Labs: Abnormal Lab Results - Last 24 Hours (Table) 12/10/24 Range/Units 13:16 Sodium 135 L (137-145) mmol/L Carbon Dioxide 20 L (22-30) mmol/L BUN 40 H (9-20) mg/dL Creatinine 2.50 H (0.66-1.25) mg/dL Glucose 128 H (74-99) mg/dL
--- NOTE | 2024-12-11 10:26 | XR ---
EXAMINATION TYPE: XR chest 1V DATE OF EXAM: 12/11/2024 COMPARISON: 12/08/2024 CLINICAL INDICATION: Male, 74 years old with history of SOB; TECHNIQUE: Single frontal view of the chest is obtained. FINDINGS: Heart limits of normal in size. Pulmonary vasculature within normal limits. No consolidati on or pleural effusion. IMPRESSION: No acute process identified. [facility], Workstation: [email or web address], 12/11/2024 10:24 AM
[2024-12-11 10:37] LABS: HCT 33.9 % (39.6-50.0); HGB 10.7 g/dL (13.0-17.0); MCHC 31.6 g/dL (32.0-37.0); MCV 88.7 FL (80.0-97.0); Mean Platelet Volume 12.8 FL (9.5-12.2); NRBC Per 100 WBC 0 X 10*3/uL (0.00-0.01); Platelet Count 118 X 10*3/uL (140-440); RBC 3.82 X 10*6/uL (4.40-5.60); RDW 19.3 % (11.5-14.5); WBC 12.94 X 10*3/uL (4.50-10.00)
[2024-12-11 11:02] LABS: ALT 12 U/L (10-49); AST 32 U/L (14-35); Albumin 3.1 g/dL (3.8-4.9); Albumin/Globulin Ratio 1.63 Ratio (1.60-3.17); Alkaline Phosphatase 86 U/L (41-126); BUN/Creat Ratio 17.84 Ratio (12.00-20.00); Blood Urea Nitrogen 33.9 mg/dL (9.0-27.0); Calcium 8.5 mg/dL (8.7-10.3); Carbon Dioxide 22.7 mmol/L (21.6-31.8); Chloride 104 mmol/L (96-109); Creatine Kinase 253 U/L (35-257); Globulin 1.9 g/dL (1.6-3.3); Glucose 109 mg/dL (70-110); Potassium 4.5 mmol/L (3.5-5.5); Sodium 137 mmol/L (135-145); Total Bilirubin 0.4 mg/dL (0.3-1.2)
[2024-12-11 11:06] LABS: Basophils # (A) 0.04 X 10*3/uL (0.00-0.10); Basophils % (A) 0.3 %; Eosinophils % (A) 2.3 %; Lymphocytes # (A) 1.91 X 10*3/uL (0.90-5.00); Lymphocytes % (A) 14.8 %; Monocytes # (A) 1.68 X 10*3/uL (0.20-1.00); Neutrophils # (A) 8.91 X 10*3/uL (1.80-7.70); Neutrophils % (A) 68.8 %
[2024-12-11] MEDS: LACTATED RINGERS 500 ML IV ONE (11:23)
--- NOTE | 2024-12-11 12:22 | CT ---
EXAMINATION TYPE: CT brain wo con DATE OF EXAM: 12/11/2024 12:07 PM COMPARISON: 12/08/2024. CLINICAL INDICATION: Male, 74 years old with history of dizziness and weakness, dizziness and weaknes s. TECHNIQUE: Brain: Axial CT images of the brain were obtained with coronal and sagittal reformats created and rev iewed. Contrast used: None. Oral contrast used: None. CT DLP: 1347.4 mGycm, Automated exposure control for dose reduction was used. FINDINGS: Brain: Extra-axial spaces: No abnormal extra-axial fluid collections. Ventricular system: Dilatation in proportion to cerebral atrophy. Cerebral parenchyma: Cerebral atrophy. No acute intraparenchymal hemorrhage or mass effect. The dubon -white junction is well differentiated. Scattered hypoattenuating areas are seen within the white mat ter. Cerebellum: Unremarkable. Mass effect: No evidence of midline shift. Intracranial vasculature: unremarkable Soft tissues: Normal. Calvarium/osseous structures: No depressed skull fracture. Paranasal sinuses and mastoid air cells: Mild scattered paranasal sinus disease. Visualized orbits: Orbital contents are intact. IMPRESSION: 1. No acute intracranial process. 2. Nonspecific white matter changes, likely secondary to chronic small vessel ischemic disease. [facility], , 12/11/2024 12:20 PM
--- NOTE | 2024-12-11 13:39 | P.PN ---
Subjective Patient is seen for follow-up for acute kidney injury Maintained on IV fluids Renal function has improved with creatinine down to 1.9 from 3.7 on initial admission No significant complaints today except for weakness Objective - Vital Signs Vital signs: Vital Signs Temp 99.1 F 12/11/24 07:30 Pulse 93 12/11/24 07:30 Resp 16 12/11/24 07:30 BP 80/46 12/11/24 09:33 Pulse Ox 96 12/11/24 07:30 FiO2 Intake & Output 12/10/24 12/11/24 12/11/24 18:59 06:59 18:59 Intake Total 2600 Output Total 900 Balance 1700 Intake: Oral 2600 Output: Urine 900 Other: Voiding Method Urinal Urinal Incontinent External Catheter External Catheter # Voids 1 # Bowel Movements 3 2 - Exam Patient is awake, comfortable, no acute distress Examination of the heart S1 and S2 Examination of the lungs bilateral breath sounds are heard Abdomen is soft nontender Examination of lower extremities shows chronic skin changes Moving all 4 extremities - Labs CBC & Chem 7: 12/11/24 06:41 12/11/24 06:41 Labs: Abnormal Lab Results - Last 24 Hours (Table) 12/10/24 12/11/24 12/11/24 Range/Units 13:16 06:41 06:41 WBC 12.94 H (4.50-10.00) X 10*3/uL RBC 3.82 L (4.40-5.60) X 10*6/uL Hgb 10.7 L (13.0-17.0) g/dL Hct 33.9 L (39.6-50.0) % MCHC 31.6 L (32.0-37.0) g/dL RDW 19.3 H (11.5-14.5) % Plt Count 118 L (140-440) X 10*3/uL MPV 12.8 H (9.5-12.2) FL Immature Gran # 0.10 H (0.00-0.04) X 10*3/uL Neutrophils # 8.91 H (1.80-7.70) X 10*3/uL Monocytes # 1.68 H (0.20-1.00) X 10*3/uL Sodium 135 L (137-145) mmol/L Carbon Dioxide 20 L (22-30) mmol/L BUN 40 H 33.9 H (9-20) mg/dL Creatinine 2.50 H 1.9 H (0.66-1.25) mg/dL Est GFR (CKD-EPI) 37 L (>=60) Glucose 128 H (74-99) mg/dL Calcium 8.5 L (8.7-10.3) mg/dL Total Protein 5.0 L (6.2-8.2) g/dL Albumin 3.1 L (3.8-4.9) g/dL Assessment and Plan Assessment: 1. Acute kidney injury, ATN, and component of obstructive uropathy. UA shows 1+ protein moderate blood and WBCs 20. Ultrasound shows possibly dilated right renal pelvis/hydronephrosis. CT abdomen was done yesterday and did not show any evidence of hydronephrosis. Previous creatinine 1.5 on 11/15/2024 2. Mild hypercalcemia noted on initial admission, improved with IV hydration. Etiology is likely related to volume contraction. No calcium supplements noted on home med list. 3. Mental status changes 4. Rhabdomyolysis with CK level trending up. It is not elevated enough to contribute significantly to acute kidney injury. 5. Hypertension with Cozaar currently on hold Plan: Continue IV fluids Check serum cortisol level as patient remains hypotensive Consider adding midodrine Repeat labs in a.m.
[2024-12-11] MEDS: bisacodyL 10 MG SUPP RECTAL STA (14:01)
[2024-12-11] MEDS: SIMETHICONE 80 MG CHEWABLE PO PRN (22:41)
[2024-12-12] MEDS: ENOXAPARIN 40 MG/0.4 ML SYRINGE SQ SCH (07:53)
[2024-12-12 08:32] LABS: BUN/Creat Ratio 20.77 Ratio (12.00-20.00); Carbon Dioxide 23.4 mmol/L (21.6-31.8); Chloride 107 mmol/L (96-109); Glucose 158 mg/dL (70-110); Potassium 4.1 mmol/L (3.5-5.5); Sodium 139 mmol/L (135-145)
[2024-12-12 08:33] LABS: ALT 10 U/L (10-49); AST 20 U/L (14-35); Albumin 2.8 g/dL (3.8-4.9); Albumin/Globulin Ratio 1.56 Ratio (1.60-3.17); Alkaline Phosphatase 82 U/L (41-126); Calcium 8.1 mg/dL (8.7-10.3); Globulin 1.8 g/dL (1.6-3.3); Total Bilirubin 0.4 mg/dL (0.3-1.2); Total Protein 4.6 g/dL (6.2-8.2)
[2024-12-12 09:47] LABS: Creatine Kinase 114 U/L (35-257)
[2024-12-12 11:17] LABS: Basophils # (A) 0.02 X 10*3/uL (0.00-0.10); Basophils % (A) 0.2 %; Crenated RBC 2+ (None Seen); Eosinophils % (A) 2.3 %; HGB 10.2 g/dL (13.0-17.0); Lymphocytes % (A) 12.3 %; MCH 28.3 pg (27.0-32.0); MCHC 31.9 g/dL (32.0-37.0); MCV 88.6 FL (80.0-97.0); Mean Platelet Volume 12.4 FL (9.5-12.2); Monocytes # (A) 1.39 X 10*3/uL (0.20-1.00); Monocytes % (A) 10.7 %; NRBC Per 100 WBC 0 X 10*3/uL (0.00-0.01); Neutrophils # (A) 9.49 X 10*3/uL (1.80-7.70); Neutrophils % (A) 73.2 %; Platelet Count 114 X 10*3/uL (140-440); RBC 3.61 X 10*6/uL (4.40-5.60); RDW 19.3 % (11.5-14.5); WBC 12.97 X 10*3/uL (4.50-10.00)
--- NOTE | 2024-12-12 12:10 | P.PN ---
Subjective Patient is seen for follow-up for acute kidney injury Maintained on IV fluids Renal function has improved with creatinine down to 1.3 from 3.7 on initial admission Objective - Vital Signs Vital signs: Vital Signs Temp 98.9 F 12/12/24 07:26 Pulse 89 12/12/24 07:26 Resp 18 12/12/24 10:42 BP 125/56 12/12/24 07:26 Pulse Ox 96 12/12/24 07:26 FiO2 Intake & Output 12/11/24 12/12/24 12/12/24 18:59 06:59 18:59 Intake Total 1650 350 Output Total 700 1425 Balance -700 225 350 Intake: Oral 1650 350 Output: Urine 700 1425 Other: Voiding Method Incontinent Diaper Diaper Incontinent Incontinent External Catheter External Catheter # Voids 1 # Bowel Movements 1 6 1 - Exam Patient is awake, comfortable, no acute distress Examination of lower extremities shows chronic skin changes, no significant edema Moving all 4 extremities - Labs CBC & Chem 7: 12/12/24 04:38 12/12/24 04:38 Labs: Abnormal Lab Results - Last 24 Hours (Table) 12/12/24 12/12/24 Range/Units 04:38 04:38 WBC 12.97 H (4.50-10.00) X 10*3/uL RBC 3.61 L (4.40-5.60) X 10*6/uL Hgb 10.2 L (13.0-17.0) g/dL Hct 32.0 L (39.6-50.0) % MCHC 31.9 L (32.0-37.0) g/dL RDW 19.3 H (11.5-14.5) % Plt Count 114 L (140-440) X 10*3/uL MPV 12.4 H (9.5-12.2) FL Immature Gran # 0.17 H (0.00-0.04) X 10*3/uL Neutrophils # 9.49 H (1.80-7.70) X 10*3/uL Monocytes # 1.39 H (0.20-1.00) X 10*3/uL Crenated Cell 2+ A (None Seen) Est GFR (CKD-EPI) 58 L (>=60) BUN/Creatinine Ratio 20.77 H (12.00-20.00) Ratio Glucose 158 H (70-110) mg/dL Calcium 8.1 L (8.7-10.3) mg/dL Total Protein 4.6 L (6.2-8.2) g/dL Albumin 2.8 L (3.8-4.9) g/dL Albumin/Globulin Ratio 1.56 L (1.60-3.17) Ratio Assessment and Plan Assessment: 1. Acute kidney injury, ATN, and component of obstructive uropathy. UA shows 1+ protein moderate blood and WBCs 20. Ultrasound shows possibly dilated right renal pelvis/hydronephrosis. CT abdomen was done yesterday and did not show any evidence of hydronephrosis. Previous creatinine 1.5 on 11/15/2024 2. Mild hypercalcemia noted on initial admission, improved with IV hydration. Etiology is likely related to volume contraction. No calcium supplements noted on home med list. 3. Mental status changes 4. Rhabdomyolysis with CK level down to 114 5. Hypertension with Cozaar currently on hold Plan: Can DC IV fluids Cortisol level not low. Repeat labs in a.m.
--- NOTE | 2024-12-12 18:20 | P.PN ---
Subjective Progress Note Date: 12/12/24 HISTORY OF PRESENT ILLNESS: This is a 74-year-old male one of my patient with a previous medical history significant for hypertension and hypertensive cardiovascular disease, hyperlipidemia, obesity with obstructive sleep apnea, history of chronic alcohol use and dependence with the peripheral neuropathy, significant spondylosis of the lumbar spine with spinal stenosis and significant chronic low back pain, patient was recently hospitalized at [facility] because of increased swelling in both lower extremities, with right lower extremity cellulitis with MRSA infection due to venous ulceration, was seen and evaluated by myself as well as infectious's, he was treated with IV antibiotic in the form of vancomycin, he ended up getting transferred back to his his assisted living [facility], apparently the patient is not able to care for himself at this point in time, but we were not able due to insurance purposes to put the patient in subacute rehabilitation at this time, in any regard the patient was supposed to come and see him in the office for follow-up, he never showed up apparently his daughter came to check on him and she found him on the ground unknown downtime, patient was found to be quite obtunded, patient was seen in the emergency department after he was transported by EMS and he was found to have an acute kidney injury due to what appears to be rhabdomyolysis, he was started on IV fluid resuscitation in the form of normal saline at 135 cc an hour,, he will be admitted to the hospital for evaluation and treatment nephrology consultation was obtained, we will follow-up with the patient very closely patient with definitely require to have 24-hour care at this point in time as he is not able to care for himself at this point in time. Chest x-ray was reviewed and did not show evidence of acute abnormalities, CT scan of the brain did not show evidence of acute infarct or bleed, cervical spine CT showed evidence of degenerative disc disease with no evidence of fracture, twelve-lead EKG showed evidence of sinus rhythm with minimal ST elevation of the inferior leads II, III and aVF could be repolarization, however could not exclude cardiac injury, we will repeat a twelve-lead EKG again, and repeat troponin if the troponin is negative and the EKG still about the same, we will consider that repolarization patient is obtained at this point in time, does not have any complaint. 12/09: Patient is sitting up in bed is more awake and more alert today, he denies any chest pain, or shortness of breath, his complaint of increased pain since he was taken off his pain medication, he is asking me to put him back on his pain medicine, he is eating his breakfast today he has no abdominal pain nausea vomiting or diarrhea he is currently on IV fluid resuscitation in the form of normal saline at 100 cc an hour, labs are still pending the time of dictation 12/10: Patient is sitting up in bed appears to be somewhat confused today, he continues to have some myoclonic jerks in the left upper extremity, he had a severe diarrhea, will discontinue lactulose at this point in time, we will decrease his Lyrica to 150 mg orally twice every day due to his creatinine clearance, monitor the patient very closely, patient was seen in consultation by urology yesterday had a CT scan of the abdomen pelvis that did not show evidence of any right hydronephrosis, it did show parapelvic cyst no new intervention is needed at this time, follow-up with the patient very closely 12/11: Patient sitting up in the recliner chair, he appears to be somewhat con fused, appears to be dizzy, he is asking for pain medication yet his blood pressures appear to be on the lower side, he had episode of double vision yesterday, he did receive lactated Ringer's yesterday 1 L, he is IV fluid was increased to 100 cc an hour, he is having less myoclonic jerks today, today he continues to have some dizzy spells, will send the patient for CT scan of the brain without contrast, I will continue IV fluid resuscitation, repeat his labs today, discontinue his metoprolol completely, follow-up with the patient very closely /3: Patient is laying down in bed, he is extremely weak in both lower extremities, he is not able to care for himself at this point in time, he is f eeling a bit better, he continues to have some wheezing, he denies any chest pain at this time, he was seen in consultation by physical therapy, I spoke with the manager case about sending the patient to subacute rehabilitation hopefully the next 24 hours, I will discontinue IV fluid, his CPK is back to normal, nephrology is following, increase his protein intake, we will start the patient on melatonin 6 mg at bedtime for sleeping tonight, follow-up with the patient very closely. REVIEW OF SYSTEMS: Constitutional: No documented fever, no chills, no night sweats. No weight change. positive for weakness , reports fatigue reports lethargy. Positive for daytime sleepiness. HEENT: No headache. No blurred vision or double vision, no loss of vision. No loss of Hearing, no ringing in the ears, no dizziness. No nasal drainage or congestion. No epistaxis. No sore throat. Lungs: Positive for shortness of breath, no cough, no sputum production. Minimal expiratory wheezing. Reports dyspnea with activity. Cardiovascular: No chest pain, positive for lower extremity edema. No palpitat ions. No paroxysmal nocturnal dyspnea. No orthopnea. No lightheadedness or dizziness. No syncopal episodes.Positive for nocturia. Abdominal: No abdominal pain. No nausea, vomiting. Positive diarrhea. No constipation. No bloody or tarry stools . No loss of appetite. Genitourinary: No dysuria, increased frequency, urgency. No urinary retention. Musculoskeletal: positive for neck pain, positive for chronic low back pain, positive for pain in both lower extremities with significant neuropathy, positive for gait dysfunction, positive for lower extremity weakness. Integumentary: venous stasis and stasis dermatitis and venous ulcer to the left lower extremity with a scab Neurologic: No aphasia. No facial droop. Positive for memory loss. No head injury. No headache, positive for paresthesia in both lower extremities, continues to be bit confused. With minimal myoclonic jerks Psychiatric: Patient does appear to be somewhat depressed, appears to be a bit anxious, no suicidal thoughts or ideation. Endocrine: No abnormal blood sugars, increased weight. PHYSICAL EXAMINATION: General: This is a 74-year-old male laying down in bed in minimal respiratory distress HEENT: Head is atraumatic, normocephalic, pupils were equal round reactive to light and recommendation, extraocular muscle movement were intact, sclera nonicteric, conjunctivae were pale, mucous membranes of the mouth are somewhat dry. Neck: Supple, no JVP, normal carotid upstroke bilaterally, no lymphadenopathy. Chest: Decreased breath sounds at the bases, few rhonchi, minimal expiratory wheezes, no chest wall tenderness, no intercostal retractions. Heart: First heart sound is normal, second heart sound is normal there is systolic ejection murmur 2/6 located in the left sternal border. Abdomen: Soft, nontender, nondistended, positive bowel sounds. Extremities: There is chronic significant venous stasis of right lower extremity with a chronic skin changes dorsalis pedis +1 bilaterally, minimal skin ulceration to the right lower extremity with a scab on it Neurologic examination: Patient is awake alert and oriented x 3, cranial nerves III to XII appear grossly intact, muscle power 4 out of 5 in upper extremities and 2 out of 5 in bilateral lower extremities. ASSESSMENT AND PLAN: 1. Acute kidney injury due to acute tubular necrosis due to rhabdomyolysis. Back to baseline. Discontinue IV fluid at this point in time, patient will be given Lasix 20 mg IV push x 1. 2. Metabolic encephalopathy likely due to underlying acute kidney injury rule out ischemic event CT scan of the brain did not show evidence of acute abnormalities. 3. Mild ST elevation in the inferior lead due to early repolarization. 4. Hypertension and hypertensive cardiovascular disease. Back to baseline patient has been off antihypertensive medications. 5. Hyperlipidemia. Continue to hold atorvastatin for now due to his rhabdomyolysis. 6. Vascular dementia. Appears to be stable at this time. 7. History of chronic alcohol use and dependence. patient has quit 8. 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 change pain management to Percocet every 6 hours as needed, decreased pregabalin to 150 mg orally twice every day 9. Bilateral lower extremity neuropathy continue patient on Lyrica 150 mg orally 2 times every day. 10. DVT prophylaxis. Continue Lovenox 30 mg subcutaneously every 24 hours. 11. GI prophylaxis. Continue Protonix 40 mg orally once every day. 12. Thrombocytopenia. Likely delusional we will recheck the patient CBC in the next 24 hours. Monitor the patient's symptoms very closely 13. Medical debility. Physical therapy has been working with the patient and the plan is for the patient to go to subacute rehabilitation hopefully tomorrow morning. Objective - Vital Signs Vital signs: Vital Signs Temp 98.4 F 12/12/24 13:31 Pulse 79 12/12/24 13:31 Resp 18 12/12/24 13:31 BP 99/60 12/12/24 13:31 Pulse Ox 96 12/12/24 13:31 FiO2 Intake & Output 12/11/24 12/12/24 12/12/24 18:59 06:59 18:59 Intake Total 1650 350 Output Total 700 1425 550 Balance -700 225 -200 Intake: Oral 1650 350 Output: Urine 700 1425 550 Other: Voiding Method Incontinent Diaper Diaper Incontinent Incontinent External Catheter External Catheter # Voids 1 # Bowel Movements 1 6 1 - Labs CBC & Chem 7: 12/12/24 04:38 12/12/24 04:38 Labs: Abnormal Lab Results - Last 24 Hours (Table) 12/12/24 12/12/24 Range/Units 04:38 04:38 WBC 12.97 H (4.50-10.00) X 10*3/uL RBC 3.61 L (4.40-5.60) X 10*6/uL Hgb 10.2 L (13.0-17.0) g/dL Hct 32.0 L (39.6-50.0) % MCHC 31.9 L (32.0-37.0) g/dL RDW 19.3 H (11.5-14.5) % Plt Count 114 L (140-440) X 10*3/uL MPV 12.4 H (9.5-12.2) FL Immature Gran # 0.17 H (0.00-0.04) X 10*3/uL Neutrophils # 9.49 H (1.80-7.70) X 10*3/uL Monocytes # 1.39 H (0.20-1.00) X 10*3/uL Crenated Cell 2+ A (None Seen) Est GFR (CKD-EPI) 58 L (>=60) BUN/Creatinine Ratio 20.77 H (12.00-20.00) Ratio Glucose 158 H (70-110) mg/dL Calcium 8.1 L (8.7-10.3) mg/dL Total Protein 4.6 L (6.2-8.2) g/dL Albumin 2.8 L (3.8-4.9) g/dL Albumin/Globulin Ratio 1.56 L (1.60-3.17) Ratio
[2024-12-12] MEDS ORDERED: FUROSEMIDE 10 MG/ML 4 ML VIAL IV STA (18:21)
[2024-12-12] MEDS: FUROSEMIDE 10 MG/ML 2 ML VIAL IV STA (19:06)
[2024-12-13 08:39] LABS: ALT 10 U/L (10-49); AST 15 U/L (14-35); Albumin 2.8 g/dL (3.8-4.9); Albumin/Globulin Ratio 1.56 Ratio (1.60-3.17); Alkaline Phosphatase 83 U/L (41-126); Blood Urea Nitrogen 19.2 mg/dL (9.0-27.0); Carbon Dioxide 28.5 mmol/L (21.6-31.8); Chloride 107 mmol/L (96-109); Globulin 1.8 g/dL (1.6-3.3); Glucose 122 mg/dL (70-110); Sodium 143 mmol/L (135-145); Total Bilirubin 0.2 mg/dL (0.3-1.2); Total Protein 4.6 g/dL (6.2-8.2)
[2024-12-13 08:44] LABS: Basophils # (A) 0.02 X 10*3/uL (0.00-0.10); Basophils % (A) 0.2 %; Eosinophils # (A) 0.29 X 10*3/uL (0.04-0.35); Eosinophils % (A) 2.7 %; HCT 31.9 % (39.6-50.0); HGB 10.1 g/dL (13.0-17.0); Lymphocytes # (A) 1.45 X 10*3/uL (0.90-5.00); Lymphocytes % (A) 13.5 %; MCH 27.9 pg (27.0-32.0); MCHC 31.7 g/dL (32.0-37.0); MCV 88.1 FL (80.0-97.0); Monocytes # (A) 1.36 X 10*3/uL (0.20-1.00); Monocytes % (A) 12.6 %; NRBC Per 100 WBC 0 X 10*3/uL (0.00-0.01); Neutrophils # (A) 7.59 X 10*3/uL (1.80-7.70); Neutrophils % (A) 70.5 %; Platelet Count 113 X 10*3/uL (140-440); RBC 3.62 X 10*6/uL (4.40-5.60); RDW 19.4 % (11.5-14.5); WBC 10.76 X 10*3/uL (4.50-10.00)
[2024-12-13 08:55] VITALS: TEMP 98.3
--- NOTE | 2024-12-13 14:02 | XR ---
EXAMINATION TYPE: XR foot limited bilateral DATE OF EXAM: 12/13/2024 1:38 PM COMPARISON: None CLINICAL INDICATION: Male, 74 years old with history of bilat pain; PHH, pain TECHNIQUE: XR foot limited bilateral examined in the AP, oblique, and lateral projections. FINDINGS: No evidence of any acute osseous pathology. Soft tissue swelling present. Atherosclerosis of the a rterial vasculature. Multifocal degeneration changes throughout the joints of the foot with osteophyt e formation and joint space narrowing. IMPRESSION: 1. Soft tissue swelling without evidence of fracture. 2. Multifocal degeneration changes throughout the joints of the foot. [facility], , 12/13/2024 2:00 PM
[2024-12-13 14:07] VITALS: BP 120/72; PULSE 80; RESP 19
[2024-12-13 15:11] VITALS: BMI 25.7
--- NOTE | 2024-12-13 15:14 | P.DS ---
Providers Date of admission: 12/08/24 13:10 Expected date of discharge: 12/13/24 Attending physician: Johnny Lane Consults: 12/08/24 13:16 Consult Physician Urgent Consulting Provider: Jailyn Sterling Consult Reason/Comments: Rhabdomyolysis, KANE Do you want consulting provider notified?: Yes 12/09/24 12:59 Consult Physician Urgent Consulting Provider: Timothy Dalton Consult Reason/Comments: Right hydronephrosis Do you want consulting provider notified?: Yes 12/09/24 13:00 Consult Physician Urgent Consulting Provider: Giovana Thomas Consult Reason/Comments: KANE Do you want consulting provider notified?: Yes Primary care physician: Johnny Lane Hospital Course: HISTORY OF PRESENT ILLNESS: This is a 74-year-old male one of my patient with a previous medical h istory significant for hypertension and hypertensive cardiovascular disease, hyperlipidemia, obesity with obstructive sleep apnea, history of chronic alcohol use and dependence with the peripheral neuropathy, significant spondylosis of the lumbar spine with spinal stenosis and significant chronic low back pain, patient was recently hospitalized at [facility] because of increased swelling in both lower extremities, with right lower extremity cellulitis with MRSA infection due to venous ulceration, was seen and evaluated by myself as well as infectious's, he was treated with IV antibiotic in the form of vancomycin, he ended up getting transferred back to his his assisted living facility [facility], apparently the patient is not able to care for himself at this point in time, but we were not able due to insurance purposes to put the patient in subacute rehabilitation at this time, in any regard the patient was supposed to come and see him in the office for follow-up, he never showed up apparently his daughter came to check on him and she found him on the ground unknown downtime, patient was found to be quite obtunded, patient was seen in the emergency department after he was transported by EMS and he was found to have an acute kidney injury due to what appears to be rhabdomyolysis, he was started on IV fluid resuscitation in the form of normal saline at 135 cc an hour,, he will be admitted to the hospital for evaluation and treatment nephrology consultation was obtained, we will follow-up with the patient very closely patient with definitely require to have 24-hour care at this point in time as he is not able to care for himself at this point in time. Chest x-ray was reviewed and did not show evidence of acute abnormalities, CT scan of the brain did not show evidence of acute infarct or bleed, cervical spine CT showed evidence of degenerative disc disease with no evidence of fracture, twelve-lead EKG showed evidence of sinus rhythm with minimal ST elevation of the inferior leads II, III and aVF could be repolarization, however could not exclude cardiac injury, we will repeat a twelve-lead EKG again, and repeat troponin if the troponin is negative and the EKG still about the same, we will consider that repolarization patient is obtained at this point in time, does not have any complaint. 12/09: Patient is sitting up in bed is more awake and more alert today, he denies any chest pain, or shortness of breath, his complaint of increased pain since he was taken off his pain medication, he is asking me to put him back on his pain medicine, he is eating his breakfast today he has no abdominal pain nausea vomiting or diarrhea he is currently on IV fluid resuscitation in the form of normal saline at 100 cc an hour, labs are still pending the time of dictation 12/10: Patient is sitting up in bed appears to be somewhat confused today, he continues to have some myoclonic jerks in the left upper extremity, he had a severe diarrhea, will discontinue lactulose at this point in time, we will decrease his Lyrica to 150 mg orally twice every day due to his creatinine clearance, monitor the patient very closely, patient was seen in consultation by urology yesterday had a CT scan of the abdomen pelvis that did not show evidence of any right hydronephrosis, it did show parapelvic cyst no new intervention is needed at this time, follow-up with the patient very closely 12/11: Patient sitting up in the recliner chair, he appears to be somewhat confused, appears to be dizzy, he is asking for pain medication yet his blood pressures appear to be on the lower side, he had episode of double vision yesterday, he did receive lactated Ringer's yesterday 1 L, he is IV fluid was increased to 100 cc an hour, he is having less myoclonic jerks today, today he continues to have some dizzy spells, will send the patient for CT scan of the brain without contrast, I will continue IV fluid resuscitation, repeat his labs today, discontinue his metoprolol completely, follow-up with the patient very closely 12/12: Patient is laying down in bed, he is extremely weak in both lower extremities, he is not able to care for himself at this point in time, he is feeling a bit better, he continues to have some wheezing, he denies any chest pain at this time, he was seen in consultation by physical therapy, I spoke with the case management associate about sending the patient to subacute rehabilitation hopefully the next 24 hours, I will discontinue IV fluid, his CPK is back to normal, nephrology is following, increase his protein intake, we will start the patient on melatonin 6 mg at bedtime for sleeping tonight, follow-up with the patient very closely. 12/13: Patient sitting up in bed in no apparent distress, he appears to be quite emotional today, he does not know what to do at this point in time, patient appears to be generally weak, he is not able to ambulate on his own, he will require subacute rehabilitation, his laboratory evaluation are stable at this time, we are going to send the patient to the rehab later on today, x-rays of both feet did not show evidence of acute fracture did show soft tissue swelling otherwise was fine. Patient will be transferred to [place] subacute rehabilitation. Discharge diagnoses: 1. Acute kidney injury due to acute tubular necrosis due to rhabdomyolysis. 2. Metabolic encephalopathy likely due to underlying acute kidney injury ruled out ischemic event CT scan of the brain did not show evidence of acute abnormalities. 3. Mild ST elevation in the inferior lead due to early repolarization. 4. Hypertension and hypertensive cardiovascular disease. 5. Hyperlipidemia. 6. Vascular dementia. 7. History of chronic alcohol use and dependence. patient has quit 8. 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 9. Bilateral lower extremity neuropathy 10. Thrombocytopenia. Patient Condition at Discharge: Serious Plan - Discharge Summary Discharge Rx Participant: Yes New Discharge Prescriptions: New traZODone HCL [Desyrel] 50 mg PO HS tab Simethicone Chew [Mylicon Chew] 80 mg PO BID PRN tab PRN Reason: Gi Upset Continue Pregabalin [Lyrica] 150 mg PO TID@0000,0800,1600 #9 cap oxyCODONE-APAP 10-325MG [Percocet 10-325 mg] 1 tab PO Q4H #18 tab Aspirin 81 mg PO DAILY tab Lactulose [Cephulac] 20 gm PO BID ml Docusate [Colace] 100 mg PO BID cap Melatonin 10 mg PO HS tab Atorvastatin [Lipitor] 40 mg PO HS #30 tablet Pantoprazole Sodium [Protonix] 40 mg PO AC-BRKFST #30 tab Changed Losartan Potassium [Cozaar] 25 mg PO DAILY #30 tab Potassium Chloride ER [K-Dur 20] 10 meq PO DAILY #30 tab Metoprolol Succinate (ER) [Toprol XL] 25 mg PO DAILY #0 Furosemide [Lasix] 20 mg PO DAILY #30 tablet Discontinued Primidone [Mysoline] 25 mg PO BID Discharge Medication List Aspirin 81 mg PO DAILY tab 11/11/24 [Rx] Docusate [Colace] 100 mg PO BID cap 11/11/24 [Rx] Lactulose [Cephulac] 20 gm PO BID ml 11/11/24 [Rx] Melatonin 10 mg PO HS tab 11/11/24 [Rx] Atorvastatin [Lipitor] 40 mg PO HS #30 tablet 11/15/24 [Rx] Pantoprazole Sodium [Protonix] 40 mg PO AC-BRKFST #30 tab 11/15/24 [Rx] Furosemide [Lasix] 20 mg PO DAILY #30 tablet 12/13/24 [Rx] Losartan Potassium [Cozaar] 25 mg PO DAILY #30 tab 12/13/24 [Rx] Metoprolol Succinate (ER) [Toprol XL] 25 mg PO DAILY #0 12/13/24 [Rx] Potassium Chloride ER [K-Dur 20] 10 meq PO DAILY #30 tab 12/13/24 [Rx] Pregabalin [Lyrica] 150 mg PO TID@0000,0800,1600 #9 cap 12/13/24 [Rx] Simethicone Chew [Mylicon Chew] 80 mg PO BID PRN tab 12/13/24 [Rx] oxyCODONE-APAP 10-325MG [Percocet 10-325 mg] 1 tab PO Q4H #18 tab 12/13/24 [Rx] traZODone HCL [Desyrel] 50 mg PO HS tab 12/13/24 [Rx] Follow up Appointment(s)/Referral(s): Johnny Lane MD [Primary Care Provider] - 1 Week (After discharge from rehab) Activity/Diet/Wound Care/Special Instructions: [facility]
--- NOTE | 2024-12-13 15:38 | P.PN ---
Subjective Patient is seen for follow-up for acute kidney injury Status post IV fluids, discontinued yesterday. Renal function has improved with creatinine down to 1.0 from 3.7 on initial admission Objective - Vital Signs Vital signs: Vital Signs Temp 98.3 F 12/13/24 14:00 Pulse 80 12/13/24 14:00 Resp 19 12/13/24 14:00 BP 120/72 12/13/24 14:00 Pulse Ox 97 12/13/24 14:00 FiO2 Intake & Output 12/12/24 12/13/24 12/13/24 18:59 06:59 18:59 Intake Total 550 250 Output Total 550 620 Balance 0 -620 250 Weight 86.183 kg Intake: Oral 550 250 Output: Urine 550 620 Other: Voiding Method Diaper Urinal Urinal Incontinent Diaper Diaper External Catheter Incontinent Incontinent # Voids 1 3 # Bowel Movements 1 1 - Exam Patient is awake, comfortable, no acute distress Heart and lungs are not examined. Examination of lower extremities shows chronic skin changes, no significant edema Moving all 4 extremities - Labs CBC & Chem 7: 12/13/24 05:35 12/13/24 05:35 Labs: Abnormal Lab Results - Last 24 Hours (Table) 12/13/24 12/13/24 Range/Units 05:35 05:35 WBC 10.76 H (4.50-10.00) X 10*3/uL RBC 3.62 L (4.40-5.60) X 10*6/uL Hgb 10.1 L (13.0-17.0) g/dL Hct 31.9 L (39.6-50.0) % MCHC 31.7 L (32.0-37.0) g/dL RDW 19.4 H (11.5-14.5) % Plt Count 113 L (140-440) X 10*3/uL Immature Gran # 0.05 H (0.00-0.04) X 10*3/uL Monocytes # 1.36 H (0.20-1.00) X 10*3/uL Glucose 122 H (70-110) mg/dL Calcium 8.0 L (8.7-10.3) mg/dL Total Bilirubin 0.2 L (0.3-1.2) mg/dL Total Protein 4.6 L (6.2-8.2) g/dL Albumin 2.8 L (3.8-4.9) g/dL Albumin/Globulin Ratio 1.56 L (1.60-3.17) Ratio Assessment and Plan Assessment: 1. Acute kidney injury, ATN, and component of obstructive uropathy. UA shows 1+ protein moderate blood and WBCs 20. Ultrasound shows possibly dilated right renal pelvis/hydronephrosis. CT abdomen was done yesterday and did not show any evidence of hydronephrosis. Previous creatinine 1.5 on 11/15/2024 2. Mild hypercalcemia noted on initial admission, improved with IV hydration. Etiology is likely related to volume contraction. No calcium supplements noted on home med list. 3. Mental status changes 4. Rhabdomyolysis with CK level down to 114 5. Hypertension with Cozaar currently on hold Plan: Continue off of IV fluids Cortisol level not low.
[2024-12-13] MEDS ORDERED: traZODone HCL 50 MG TAB PO SCH (21:00)
--- NOTE | 2024-12-16 12:16 | CDI ---
Documentation Clarification Form Date: 12/16/2024 12:02:30 PM From: Juliana Mo Phone: Admit Date: 12/08/2024 01:10:00 PM Patient Name: Milton Navarro Visit Number: [id number] Discharge Date: 12/13/2024 04:54:00 PM ATTENTION: The Clinical Documentation Specialists (CDI) and [facility] Coding Staff appreciate your assistance in clarifying documentation. Please respond to the clarification below the line at the bottom and electronically sign. The CDI & [facility] Coding staff will review the response and follow-up if needed. Please note: Queries are made part of the Legal Health Record. If you have any questions, please contact the author of this message via ITS. Doctor/Provider: Johnny Lane Rhabdomyolysis is documented in consult note on 12/09/2024. Additional clarification regarding the type of rhabdomyolysis is requested. History/Risk Factors: Pt 74-year-old with a previous medical history significant forhypertensionandhypertensivecardiovascular disease, hyperlipidemia,obesitywithobstructive sleep apnea, history of chronicalcohol useanddependencewith theperipheral neuropathy,found to have anacute kidney injurydue to what appears to berhabdomyolysis, Clinical Indicators: On 12/08 HP note -Acute kidney injurydue toacute tubular necrosisdue torhabdomyolysis. Start the patient on normal saline at at 130 cc an hour, monitor the patient input and output and daily weight,avoidnephrotoxins,ultrasoundthe kidneys, nephrology consultation, repeat CMP in the next 24 hours. Repeat CPK in a daily basis On 12/09 consult note -He is admitted to the hospital as he was found on the floor by his daughter. Unknown downtime. Patient wasconfused with significantlyaltered mentation. Serum creatinine was 3.7 on admission and has decreased to 3.3 today. Previous creatinine was 1.5 on 11/15/2024 currently maintained on IV fluids. CK level was 1410 on admission and is 1725 today. 12/11 PN -.Rhabdomyolysiswith CK level trending up.Itis notelevatedenough to contribute significantly toacute kidney injury. ON 12/12 PN -Patient is laying down in bed, he is extremelyweakin both lower extremities,he is notable to care for himself at this point in time, he is feeling a bit better, he continues to have somewheezing, hedenies anychest painat this time, he was seen in consultation byphysical therapy, I spoke with the field nurse case manager about sending the patient to subacute rehabilitation hopefully the next 24 hours, I willdiscontinueIV fluid, his CPK is back to normal, nephrology is following, increase his protein intake, we will start the patient on melatonin 6 mg at bedtime for sleeping tonight,follow-upwith the patient very closely. Creatinine Kinase on 12/08141 , 1724 , 12/11 , Treatment: Continue lactated Ringer's at 100 cc an hour, monitor the patient CMP today, repeat CPK today. Please clarify the type of rhabdomyolysis, if known: [ x ] Traumatic rhabdomyolysis due to fall [ ] Traumatic rhabdomyolysis due to prolonged immobility [ ] Non traumatic rhabdomyolysis due to medication (please specify) [ ] Non traumatic rhabdomyolysis due to infection (please specify) [ ] Other, please specify [ ] Unable to Determine (Template Last Revised: November 2020) MTDD
== END 2024-12-13 16:54 | DRG 682 ==
LOC: EC 11:28 → 5NMEDONC 13:10 → 4SSUR 19:35 → UNDODISIN 12-13 16:02 → 4SSUR 12-13 16:37
PROVIDERS: ADMIT Internal Medicine; ATTEND Internal Medicine
DX: N17.0 Acute kidney failure with tubular necrosis (principal); G93.41 Metabolic encephalopathy; D69.6 Thrombocytopenia, unspecified; G25.3 Myoclonus; T79.6XXA Traumatic ischemia of muscle, initial encounter; F01.50 Vascular dementia, unspecified severity, without behavioral disturbance, psychotic disturbance, mood disturbance, and anxiety; I11.9 Hypertensive heart disease without heart failure; E03.9 Hypothyroidism, unspecified; G25.81 Restless legs syndrome; H53.2 Diplopia; R42 Dizziness and giddiness; E78.5 Hyperlipidemia, unspecified; G89.4 Chronic pain syndrome; M47.812 Spondylosis without myelopathy or radiculopathy, cervical region; E83.52 Hypercalcemia; N28.1 Cyst of kidney, acquired; I87.8 Other specified disorders of veins; I87.2 Venous insufficiency (chronic) (peripheral); G47.33 Obstructive sleep apnea (adult) (pediatric); N40.0 Benign prostatic hyperplasia without lower urinary tract symptoms; M47.816 Spondylosis without myelopathy or radiculopathy, lumbar region; R19.7 Diarrhea, unspecified; G62.9 Polyneuropathy, unspecified; Z79.899 Other long term (current) drug therapy; Z79.82 Long term (current) use of aspirin
CPT/HCPCS: 36415; 70450; 71045; 71046; 72125; 74176; 76770; 80048; 80053; 80306; 80320; 81001; 82533; 82550; 83605; 83735; 84100; 84484; 85025; 85610; 85730; 87086; 87324; 93005; 96361; 96374; 99285

== ENCOUNTER 2024-12-24 12:44 | Inpatient (IN) | payer MEDICARE ==
[2024-12-24 13:38] LABS: Basophils # (A) 0.04 10*3/uL (0.00-0.10); Basophils % (A) 0.5 %; Eosinophils # (A) 0.17 10*3/uL (0.04-0.35); Eosinophils % (A) 2.2 %; HCT 30.7 % (39.6-50.0); Lymphocytes # (A) 1.21 10*3/uL (0.90-5.00); MCH 28.7 pg (27.0-32.0); MCHC 32.6 g/dL (32.0-37.0); MCV 88.2 fL (80.0-97.0); Mean Platelet Volume 9.3 fL (9.5-12.2); Monocytes # (A) 0.87 10*3/uL (0.20-1.00); Monocytes % (A) 11.5 %; Neutrophils # (A) 5.23 10*3/uL (1.80-7.70); Neutrophils % (A) 69.3 %; Platelet Count 392 10*3/uL (140-440); RBC 3.48 10*6/uL (4.40-5.60); RDW 19.6 % (11.5-14.5); WBC 7.56 10*3/uL (4.50-10.00)
[2024-12-24 13:52] LABS: Appearance,Urine Clear (Clear); Bilirubin,Urine Negative (Negative); Blood,Urine Negative (Negative); Color,Urine Colorless; Glucose,Urine (UA) Negative (Negative); Ketones,Urine Negative (Negative); Leukocyte Esterase,Urine Negative (Negative); Nitrite,Urine Negative (Negative); PH, Urine 5.5 (5.0-8.0); Protein,Urine Negative (Negative); Specific Gravity,Urine 1.015 (1.001-1.035); Urobilinogen,Urine <2.0 mg/dL (<2.0)
[2024-12-24 14:01] LABS: Partial Thromboplastin Time 20.8 sec (22.0-30.0); Prothrombin Time 10.7 sec (10.0-12.5)
[2024-12-24 14:02] LABS: ALT 12 U/L (4-49); African American GFR (CKD) 78 (>60 ml/min/1.73 sqM); Albumin 3.3 g/dL (3.5-5.0); Anion Gap 4 mmol/L; Blood Urea Nitrogen 30 mg/dL (9-20); Calcium 9.3 mg/dL (8.4-10.2); Carbon Dioxide 28 mmol/L (22-30); Chloride 106 mmol/L (98-107); Glucose 88 mg/dL (74-99); Non-African American GFR(CKD) 68 (>60 ml/min/1.73 sqM); Sodium 138 mmol/L (137-145); Total Bilirubin 0.6 mg/dL (0.2-1.3); Total Protein 5.8 g/dL (6.3-8.2)
[2024-12-24 14:06] LABS: AST 28 U/L (17-59); Alkaline Phosphatase 64 U/L (38-126); Magnesium 2.2 mg/dL (1.6-2.3); Potassium 4.6 mmol/L (3.5-5.1)
--- NOTE | 2024-12-24 14:08 | CT ---
EXAMINATION TYPE: CT brain wo con DATE OF EXAM: 12/24/2024 COMPARISON: 12/11/2024 CLINICAL INDICATION: Male, 74 years old with history of fall; PHH, fall CT DLP: 1200.4 mGycm Automated exposure control for dose reduction was used. Findings: The ventricles, basal cisterns and sulci over the convexities are mildly enlarged consistent with mil d age-appropriate atrophy. There is mild decreased density in the periventricular white matter consis tent with mild chronic ischemic white matter demyelination. There is no acute intra or extra-axial hemorrhage. The posterior fossa including the brainstem, fourth ventricle and cerebellar pontine angles appear no rmal. Intraorbital contents appear normal and symmetric. Visualized paranasal sinuses and mastoid air cells are well aerated. The calvarium is intact. IMPRESSION: 1. Age appropriate senescent changes. 2.. There is no acute bleed or mass effect. [facility], , 12/24/2024 2:06 PM
--- NOTE | 2024-12-24 14:13 | CT ---
EXAMINATION TYPE: CT lumbar spine wo con DATE OF EXAM: 12/24/2024 1:59 PM COMPARISON: 12/02/2019 CLINICAL INDICATION: Male, 74 years old with history of chronic back pain; PHH, low back pain TECHNIQUE: Unenhanced CT of the lumbar spine was performed. Bone and soft tissue window settings are submitted as well as coronal and sagittal reconstructions. CT DLP: 2278.[address] CTDI: mGy Automated exposure control for dose reduction was used. FINDINGS: The lumbar vertebral segments are normal in height and alignment and there is no fracture or subluxat ion. There is marked degenerative disc disease from T10 through S1 where there is marked vacuum phenomena, disc space narrowing and spondylosis. Technique is limited for lumbar disc herniation but no large d isc herniations are seen. Secondary to facet hypertrophy, disc bulge and thickening of ligamentum flavum. Mild to moderate spin al stenosis at the L2-3, L3-4 and L4-5 levels. There is moderate facet arthropathy at the L3-4, L4-5 and L5-S1 levels. The visualized sacrum and SI joints are normal. There is multilevel bony neural foraminal encroachment as follows; severe at the L3-4 level bilateral ly, moderate at the L4-5 level bilaterally, and moderate at the L5-S1 level bilaterally. IMPRESSION: 1. No evidence of acute trauma. 2. marked multilevel degenerative disease from T10 through S1. 3. Multilevel spinal stenosis and neuroforaminal stenosis as described above. 4. Significant interval worsening in the degree of degenerative disc disease in the lower thoracic an d upper lumbar spine and in the degree of bony neural foraminal encroachment. [facility], , 12/24/2024 2:11 PM
--- NOTE | 2024-12-24 14:39 | XR ---
EXAMINATION TYPE: XR chest 2V DATE OF EXAM: 12/24/2024 2:16 PM COMPARISON: 12/11/2024 CLINICAL INDICATION: Male, 74 years old with history of Weakness, , TECHNIQUE: AP and lateral views FINDINGS: Heart borderline enlarged. Hyperinflation. Hazy densities relating to portable technique and body hab itus. No nanette consolidation or sizable pleural effusion is seen. IMPRESSION: Portable exam further limited by body habitus and positioning. Heart is borderline enlarged. No defin ite acute process otherwise seen. [facility], Workstation: [id number], 12/24/2024 2:37 PM
--- NOTE | 2024-12-24 14:42 | XR ---
EXAMINATION TYPE: XR pelvis AP view DATE OF EXAM: 12/24/2024 2:19 PM COMPARISON: Right hip 06/28/2021 CLINICAL INDICATION: Male, 74 years old with history of fall; PHH, pain FINDINGS: Suboptimal assessment of the right femoral neck due to external rotation of the hip during imaging. There is moderate degenerative change of the left hip and mild at the right hip with superol ateral joint space narrowing. Degenerative disc disease lower lumbar spine. No nanette displaced fractu re. IMPRESSION: 1. Suboptimal assessment of the right hip due to improper positioning. No nanette displaced fracture is seen. Consider repeat if there is a heightened clinical suspicion for injury on the right. 2. Osteopenia. Moderate OA left hip and mild at the right hip. [facility], Workstation: [id number], 12/24/2024 2:40 PM
[2024-12-24] MEDS ORDERED: ACETAMINOPHEN TAB 325 MG TAB PO PRN (15:00)
[2024-12-24] MEDS ORDERED: NALOXONE 0.4 MG/ML 1 ML VIAL IV PRN (15:00)
--- NOTE | 2024-12-24 15:00 | ED ---
General Adult HPI - General Chief complaint: Weakness Stated complaint: Weakness Time Seen by Provider: 12/24/24 13:00 Source: patient, EMS, RN notes reviewed, old records reviewed Mode of arrival: EMS - History of Present Illness Initial comments: Patient is a 74-year-old male who presents emergency department complaining of debility as well as chronic leg pain and back pain. Patient has a known history of chronic degeneration of the spine. States he had a full body spasm at home in January and have struck his head. States he did not lose consciousness. Denies any saddle paresthesias or urinary or bowel incontinence. Has chronic lower extremity weakness, he states it may be worse however he does resist movements passively. Denies any new obvious injuries to the back. Apparently has signed himself out of previous nursing facilities. States he cannot take care of himself at home. Presents for further evaluation at this time.Denies saddle paresthesias. Denies urinary or bowel incontinence or retention - Related Data Home Medications Medication Instructions Recorded Confirmed methylPREDNISolone Dose Pack See Taper PO DIRECTED 12/24/24 12/24/24 [Medrol Dose Pack] Previous Rx's Medication Instructions Recorded Aspirin 81 mg PO DAILY tab 11/11/24 Docusate [Colace] 100 mg PO BID cap 11/11/24 Lactulose [Cephulac] 20 gm PO BID ml 11/11/24 Melatonin 10 mg PO HS tab 11/11/24 Atorvastatin [Lipitor] 40 mg PO HS #30 tablet 11/15/24 Pantoprazole Sodium [Protonix] 40 mg PO AC-BRKFST #30 tab 11/15/24 Furosemide [Lasix] 20 mg PO DAILY #30 tablet 12/13/24 Losartan Potassium [Cozaar] 25 mg PO DAILY #30 tab 12/13/24 Metoprolol Succinate (ER) [Toprol 25 mg PO DAILY #0 12/13/24 XL] Potassium Chloride ER [K-Dur 20] 10 meq PO DAILY #30 tab 12/13/24 Pregabalin [Lyrica] 150 mg PO TID@0000,0800,1600 #9 cap 12/13/24 Simethicone Chew [Mylicon Chew] 80 mg PO BID PRN tab 12/13/24 oxyCODONE-APAP 10-325MG [Percocet 1 tab PO Q4H #18 tab 12/13/24 10-325 mg] traZODone HCL [Desyrel] 50 mg PO HS tab 12/13/24 Allergies Allergy/AdvReac Type Severity Reaction Status Date / Time No Known Allergies Allergy Verified 12/24/24 12:46 Review of Systems ROS Statement: Those systems with pertinent positive or pertinent negative responses have been documented in the HPI. Review of Systems: CONST: Denies fever EYES: Denies blurry vision ENT: Denies nasal congestion C/V: Denies Chest pain RESP: Denies shortness of breath GI: Denies abdominal pain : Denies dysuria SKIN: Denies rash. MSK: Endorses chronic back pain NEURO: Denies headache ROS Other: All systems not noted in ROS Statement are negative. Past Medical History Past Medical History: Hypertension, Osteoarthritis (OA) Additional Past Medical History / Comment(s): ETOH abuse, chronic back pain, BLE neuropathy, lymphedema, multiple falls, cellulitis History of Any Multi-Drug Resistant Organisms: MRSA Date of last positivie culture/infection: 11/05/24 MDRO Source:: RT LEG, RT ankle Past Surgical History: Back Surgery, Orthopedic Surgery, Tonsillectomy Additional Past Surgical History / Comment(s): 3 back laminectomies, hand surgery s/p trauma to reattatch tendons Past Anesthesia/Blood Transfusion Reactions: No Reported Reaction Past Psychological History: No Psychological Hx Reported Smoking Status: Never smoker, Unknown if ever smoked Past Alcohol Use History: Daily, Heavy Past Drug Use History: None Reported - Past Family History Father Family Medical History: Hypertension Mother Family Medical History: Cancer Additional Family Medical History / Comment(s): Lung cancer Brother(s) Family Medical History: No Reported History Sister(s) Family Medical History: Hypertension Daughter(s) Family Medical History: No Reported History General Exam - General Exam Comments Initial Comments: General: Appears in no acute distress. HEAD: Normal with no signs of head trauma. Negative Lepe sign, negative raccoon eyes. EYES: EOMI ENT: Hearing grossly intact, normal oropharynx. RESPIRATORY: Clear breath sounds bilaterally. No wheezes, rales, or rhonchi. C/V: Regular rate and rhythm. S1 and S2 auscultated, no edema, peripheral pulses 2+ and intact throughout ABD: Abd is soft, nontender, nondistended EXT: Normal range of motion, no obvious deformity. Chronic midline lumbar spine tenderness to palpation. SKIN: No rashes or lesions observed on exposed skin. NEURO: Alert and oriented x 4. Chronic lower extremity weakness. Patient states he cannot move it much at baseline of the lower extremities. Patient does have active resistance to my passive motions when I flex and extend his knees. Seems to be more voluntary. Chronic sensory deficits from chronic neuropathy. Course Vital Signs 12/24/24 12/24/24 12:45 14:28 Temperature 98.7 F Pulse Rate 67 62 Respiratory 20 18 Rate Blood Pressure 118/58 125/70 O2 Sat by Pulse 98 100 Oximetry Medical Decision Making - Medical Decision Making Was pt. sent in by a medical professional or institution (, PA, [employer], urgent care, hospital, or [facility]...) When possible be specific @ -No Did you speak to anyone other than the patient for history (EMS, parent, family, police, friend...)? What history was obtained from this source @ -No Did you review nursing and triage notes (agree or disagree)? Why? @ -I reviewed and agree with nursing and triage notes Were old charts reviewed (outside hosp., previous admission, EMS record, old EKG, old radiological studies, urgent care reports/EKG's, [facility] records)? Report findings @ -Reviewed old charts. Patient is on Percocets chronically. Differential Diagnosis (chest pain, altered mental status, abdominal pain women, abdominal pain men, vaginal bleeding, weakness, fever, dyspnea, syncope, headache, dizziness, GI bleed, back pain, seizure, CVA, palpatations, mental health, musculoskeletal)? @ -Differential Weakness: Hypoglycemia, shock, sepsis, hyponatremia, anemia, infection, DE, ETOH, adverse medicine reaction, overdose, stroke, this is not meant to be an all-inclusive li st. EKG interpreted by me (3pts min.). @ -As above X-rays interpreted by me (1pt min.). @ -Chest and pelvis x-rays negative for any obvious acute process. CT interpreted by me (1pt min.). @ -CT lumbar spine shows chronic degeneration with significant degenerative disc disease in the lower and upper spine. CT brain shows no obvious acute intracranial process. U/S interpreted by me (1pt. min.). @ -None done What testing was considered but not performed or refused? (CT, X-rays, U/S, labs)? Why? @ -None What meds were considered but not given or refused? Why? @ -None Did you discuss the management of the patient with other professionals (professionals i.e. , PA, [employer]ER, lab, RT, psych nurse, social problems specialist, supervisor boarding, teacher, information security officer, counter caser)? Give summary @ -I discussed the case with his PCP, Dr. Lane. I discussed the spine findings on CT, as well as the fact that he does have active resistance to passive movement despite him saying he has more weak than baseline but it does seem to be his chronic self. Discussed the possibility that this is cauda equina however it appears patient did have a recent full workup outpatient by orthopedics for similar complaints. This is a chronic issue for the patient. As he does have active resistance to passive motions, and has no other symptoms of cauda equina with chronic lower extremity weakness, Dr. Lane does agree based on my discussion with him that this is not acute cauda equina syndrome however we will admit for placement and have orthopedics evaluate him. He was in agreement this plan. Was smoking cessation discussed for >3mins.? @ -No Was critical care preformed (if so, how long)? @ -No Were there social determinants of health that impacted care today? How? (Homelessness, low income, unemployed, alcoholism, drug addiction, transportation, low edu. Level, literacy, decrease access to med. care, usp, r ehab)? @ -No Was there de-escalation of care discussed even if they declined (Discuss DNR or withdrawal of care, Hospice)? DNR status @ -No What co-morbidities impacted this encounter? (DM, HTN, Smoking, COPD, CAD, Cancer, CVA, ARF, Chemo, Hep., AIDS, mental health diagnosis, sleep apnea, morbid obesity)? @ -None Was patient admitted / discharged? Hospital course, mention meds given and route, prescriptions, significant lab abnormalities, going to OR and other pertinent info. @ -Based on patient's presentation and physical exam, presents with acute on chronic back pain as well as what he describes as a full body spasm that occurred prior to arrival. Patient does have a history of chronic pain and states he did not take his morning Percocet. He is immediately asking for Percocet at this time. Patient does endorse worsening lower extremity weakness however patient does seem to be resisting my passive movements of his lower extremities. At baseline, he states he has chronic weakness of the lower extremities and uses a wheelchair at home. He does seem to be at baseline but has no significant home health or support at home. Was in a nursing facility however patient apparently signed himself out and presents for readmission at this time. Will obtain basic workup. He was in agreement this plan. Will obtain imaging of the brain as well as lumbar spine as he states he may have hit his head during the muscle spasm. He was in agreement this plan. Vitals within acceptable limits. Laboratory studies are all within acceptable limits. Patient's imaging shows the known chronic severe degeneration of the spine. Brain CT unremarkable. X-rays unremarkable. I discussed the case with his PCP, Dr. Lane. I discussed the spine findings on CT, as well as the fact that he does have active resistance to passive movement despite him saying he has more weak than baseline but it does seem to be his chronic self. Discussed the possibility that this is cauda equina however it appears patient did have a recent full workup outpatient by orthopedics for similar complaints. This is a chronic issue for the patient. As he does have active resistance to passive motions, and has no other symptoms of cauda equina with chronic lower extremity weakness, Dr. Lane does agree based on my discussion with him that this is not acute cauda equina syndrome however we will admit for placement and have orthopedics evaluate him. He was in agreement this plan. Undiagnosed new problem with uncertain prognosis? @ -No Drug Therapy requiring intensive monitoring for toxicity (Heparin, Nitro, Insulin, Cardizem)? @ -No Were any procedures done? @ -No Diagnosis/symptom? @ -Acute on chronic back pain, debility Acute, or Chronic, or Acute on Chronic? @ -Acute Uncomplicated (without systemic symptoms) or Complicated (systemic symptoms)? @ -Complicated Side effects of treatment? @ -No Exacerbation, Progression, or Severe Exacerbation? @ -No Poses a threat to life or bodily function? How? (Chest pain, USA, DE, pneumonia, PE, COPD, DKA, ARF, appy, cholecystitis, CVA, Diverticulitis, Homicidal, Suicidal, threat to staff... and all critical care pts) @ -Potentially, yes - Lab Data Result diagrams: 12/24/24 13:27 12/24/24 13:27 Lab Results 12/24/24 12/24/24 12/24/24 Range/Units 13:27 13:27 13:27 WBC 7.56 (4.50-10.00) 10*3/uL RBC 3.48 L (4.40-5.60) 10*6/uL Hgb 10.0 L (13.0-17.0) g/dL Hct 30.7 L (39.6-50.0) % MCV 88.2 (80.0-97.0) fL MCH 28.7 (27.0-32.0) pg MCHC 32.6 (32.0-37.0) g/dL Plt Count 392 (140-440) 10*3/uL MPV 9.3 L (9.5-12.2) fL Immature Gran % (Auto) 0.5 % Neutrophils % 69.3 % Lymphocytes % 16.0 % Monocytes % 11.5 % Eosinophils % 2.2 % Basophils % 0.5 % Immature Gran # 0.04 (0.00-0.04) 10*3/uL Neutrophils # 5.23 (1.80-7.70) 10*3/uL Lymphocytes # 1.21 (0.90-5.00) 10*3/uL Monocytes # 0.87 (0.20-1.00) 10*3/uL Eosinophils # 0.17 (0.04-0.35) 10*3/uL Basophils # 0.04 (0.00-0.10) 10*3/uL PT 10.7 (10.0-12.5) sec INR 1.0 (<1.2) APTT 20.8 L (22.0-30.0) sec Sodium (137-145) mmol/L Potassium (3.5-5.1) mmol/L Chloride (98-107) mmol/L Carbon Dioxide (22-30) mmol/L Anion Gap mmol/L BUN (9-20) mg/dL Creatinine (0.66-1.25) mg/dL Est GFR (CKD-EPI)AfAm (>60 ml/min/1.73 sqM) Est GFR (CKD-EPI)NonAf (>60 ml/min/1.73 sqM) Glucose (74-99) mg/dL Calcium (8.4-10.2) mg/dL Magnesium (1.6-2.3) mg/dL Total Bilirubin (0.2-1.3) mg/dL AST (17-59) U/L ALT (4-49) U/L Alkaline Phosphatase (38-126) U/L Total Protein (6.3-8.2) g/dL Albumin (3.5-5.0) g/dL Urine Color Colorless Urine Appearance Clear (Clear) Urine pH 5.5 (5.0-8.0) Ur Specific [place] 1.015 (1.001-1.035) Urine Protein Negative (Negative) Urine Glucose (UA) Negative (Negative) Urine Ketones Negative (Negative) Urine Blood Negative (Negative) Urine Nitrite Negative (Negative) Urine Bilirubin Negative (Negative) Urine Urobilinogen <2.0 (<2.0) mg/dL Ur Leukocyte Esterase Negative (Negative) 12/24/24 Range/Units 13:27 WBC (4.50-10.00) 10*3/uL RBC (4.40-5.60) 10*6/uL Hgb (13.0-17.0) g/dL Hct (39.6-50.0) % MCV (80.0-97.0) fL MCH (27.0-32.0) pg MCHC (32.0-37.0) g/dL Plt Count (140-440) 10*3/uL MPV (9.5-12.2) fL Immature Gran % (Auto) % Neutrophils % % Lymphocytes % % Monocytes % % Eosinophils % % Basophils % % Immature Gran # (0.00-0.04) 10*3/uL Neutrophils # (1.80-7.70) 10*3/uL Lymphocytes # (0.90-5.00) 10*3/uL Monocytes # (0.20-1.00) 10*3/uL Eosinophils # (0.04-0.35) 10*3/uL Basophils # (0.00-0.10) 10*3/uL PT (10.0-12.5) sec INR (<1.2) APTT (22.0-30.0) sec Sodium 138 (137-145) mmol/L Potassium 4.6 (3.5-5.1) mmol/L Chloride 106 (98-107) mmol/L Carbon Dioxide 28 (22-30) mmol/L Anion Gap 4 mmol/L BUN 30 H (9-20) mg/dL Creatinine 1.09 (0.66-1.25) mg/dL Est GFR (CKD-EPI)AfAm 78 (>60 ml/min/1.73 sqM) Est GFR (CKD-EPI)NonAf 68 (>60 ml/min/1.73 sqM) Glucose 88 (74-99) mg/dL Calcium 9.3 (8.4-10.2) mg/dL Magnesium 2.2 (1.6-2.3) mg/dL Total Bilirubin 0.6 (0.2-1.3) mg/dL AST 28 (17-59) U/L ALT 12 (4-49) U/L Alkaline Phosphatase 64 (38-126) U/L Total Protein 5.8 L (6.3-8.2) g/dL Albumin 3.3 L (3.5-5.0) g/dL Urine Color Urine Appearance (Clear) Urine pH (5.0-8.0) Ur Specific [place] (1.001-1.035) Urine Protein (Negative) Urine Glucose (UA) (Negative) Urine Ketones (Negative) Urine Blood (Negative) Urine Nitrite (Negative) Urine Bilirubin (Negative) Urine Urobilinogen (<2.0) mg/dL Ur Leukocyte Esterase (Negative) - EKG Data -: EKG Interpreted by Me EKG Comments: 12-lead Electrocardiogram Interpretation Note EKG was reviewed and interpreted by myself. 12-lead ECG performed at 1253 is interpreted by me as revealing normal sinus rhythm at a rate of 66 beats per minute. Anderson is normal. QRS duration is 82 ms, QTc is 392 ms.. There were no ST or T wave abnormalities to suggest myocardial ischemia or injury. R wave progression across the precordium was satisfactory. By my interpretation this EKG is non-diagnostic for acute ischemia. Disposition Clinical Impression: Chronic low back pain, Debility Disposition: ADMITTED IP TO THIS [facility] Condition: Stable Referrals: Johnny Lane MD [Primary Care Provider] - 1-2 days Time of Disposition: 15:00
[2024-12-24] MEDS: HEPARIN SODIUM,PORCINE 5,000 UNIT/ML 1 ML VIAL SQ SCH (16:49)
[2024-12-24] MEDS ORDERED: ZINC OXIDE PASTE (Z-GUARD) 1 APPLIC TOPICAL PRN (17:41)
[2024-12-24] MEDS ORDERED: SIMETHICONE 80 MG CHEWABLE PO PRN (18:34)
[2024-12-24] MEDS: oxyCODONE-APAP 10-325MG 1 EACH TAB PO STA (18:52)
[2024-12-24] MEDS: LOSARTAN 25 MG TAB PO SCH (18:56)
[2024-12-24] MEDS: oxyCODONE-APAP 10-325MG 1 EACH TAB PO PRN (18:56)
[2024-12-24] MEDS: METOPROLOL SUCCINATE (ER) 25 MG TAB.ER.24H PO SCH (18:56)
[2024-12-24] MEDS: ASPIRIN 81 MG PO SCH (18:56)
--- NOTE | 2024-12-24 19:05 | P.HPIM ---
History of Present Illness H&P Date: 12/24/24 Chief Complaint: Debility not able to care for himself HISTORY OF PRESENT ILLNESS: This is a 74-year-old male one of my patient with a previous medical history significant for hypertension and hypertensive cardiovascular disease, hyperlipidemia, obesity with obstructive sleep apnea, history of chronic alcohol use and dependence with the peripheral neuropathy, significant spondylosis of the lumbar spine with spinal stenosis and significant chronic low back pain, patient was recently hospitalized at [facility] from 12/08/2024 till 12/13/2024 after he was admitted for acute kidney injury due to fall induced rhabdomyolysis that required IV fluid resuscitation and nephrology consultation he was seen and evaluated by physical therapy and because of his extreme weakness of both lower extremities patient was transferred at the end of the hospital visit to [facility] for physical therapy and rehabilitation however the patient signed out AMA after few hours because nobody was caring for him and no one was trying to help him out, patient went back to [facility], and he has struggled quite a bit he was asking for home PT and OT to come to the patient and evaluate him at home, apparently the patient had fallen yesterday out of his bed and he landed on the floor, he ended up calling EMS he had contacted my office stating that he is going to the emergency department because he is not able to care for himself at this point in time, he is not able to use his lower extremity specially the the left lower extremity more than the right lower extremity, patient is not able to move his left lower extremity at all, he is moving the right lower extremity of bed, but this was not very consistent all the time, at this stage the patient stated that he does not belong anywhere but here at the facilities around [place] he wanted to go to one of the facility for physical therapy rehabilitation as he is not able to care for himself at this time, he cannot take care of himself at home, patient did have a laboratory evaluation that showed no evidence of acute abnormalities, he had a chest x-ray did not show evidence of acute abnormalities, CT scan of the brain was negative for acute infarct or bleed, patient had an x-ray of the p elvic area, did not show evidence of any acute fracture, he did have a CT scan of the lumbar spine that showed evidence of severe degenerative disc disease, without evidence of acute fracture, spine surgery consultation was obtained because of pain in the lumbar spine, and inability to ambulate, patient was supposed to see Dr. Watts as an outpatient for issues of spondylosis of the cervical spine and lumbar spine but he never made the appointment. REVIEW OF SYSTEMS: Constitutional: No documented fever, no chills, no night sweats. No weight change. positive for weakness , reports fatigue reports no lethargy. negative for daytime sleepiness. HEENT: No headache. No blurred vision or double vision, no loss of vision. No loss of Hearing, no ringing in the ears, no dizziness. No nasal drainage or congestion. No epistaxis. No sore throat. Lungs: No shortness of breath, occasional cough, minimal sputum production. No wheezing. Reports dyspnea with activity. Cardiovascular: No chest pain, mild lower extremity edema. No palpitations. No paroxysmal nocturnal dyspnea. No orthopnea. No lightheadedness or dizziness. No syncopal episodes.Positive for nocturia. Abdominal: No abdominal pain. No nausea, vomiting. no diarrhea. Occasional constipation. No bloody or tarry stools . No loss of appetite. Genitourinary: No dysuria, increased frequency, urgency. No urinary retention. Musculoskeletal: positive for neck pain, positive for chronic low back pain, positive for pain in both lower extremities with significant neuropathy, positive for gait dysfunction, positive for lower extremity weakness right more than left. Integumentary: venous stasis and stasis dermatitis and venous ulcer to the left lower extremity with a scab as well as the back of the right leg. Neurologic: No aphasia. No facial droop. Positive for memory loss. No head injury. No headache, positive for paresthesia in both lower extremities, Psychiatric: Patient does appear to be somewhat depressed, appears to be a bit anxious, no suicidal thoughts or ideation. Endocrine: No abnormal blood sugars, increased weight. PAST MEDICAL HISTORY: 1. Hypertension and hypertensive cardiovascular disease. 2. Hyperlipidemia. 3. Hypothyroidism. 4. Chronic venous stasis with stasis dermatitis. 5. Chronic alcohol use and dependence. 6. Obstructive sleep apnea. 7. Peripheral neuropathy. 8. Vascular dementia. 9. Enlarged prostate. 10. 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 11. Restless leg syndrome. PAST SURGICAL HISTORY: 1. Laminectomies in the lumbar spine 3. 2. Tonsillectomy. 3. Hand surgery with tendon repair. SOCIAL HISTORY: Patient denies a history of smoking, he drinks about 3 beers every other day, he used to drink a lot heavier than that, he denies any drug use or abuse, he denies any marijuana use and lives along, he has a daughter who comes a check on him, only on the weekend. FAMILY HISTORY: Father at age 93 from old age. History of hypertension and myocardial infarction, mother at age of 84 from lung cancer and she was heavy smoker, patient has 2 brothers one of them is super morbid obesity and other one is okay, patient has 2 sisters one of them is 63-year-old with history of venous st asis, the other one is fine, patient has a daughter with no major medical problems 35-year-old. PHYSICAL EXAMINATION: General: This is a 75-year-old male laying down in bed in no apparent distress. HEENT: Head is atraumatic, normocephalic, pupils were equal round reactive to light and recommendation, extraocular muscle movement were intact, sclera nonicteric, conjunctivae were pale, mucous membranes of the mouth are somewhat dry. Neck: Supple, no JVP, normal carotid upstroke bilaterally, no lymphadenopathy. Chest: Decreased breath sounds at the bases, few rhonchi, no expiratory wheezes, no chest wall tenderness, no intercostal retractions. Heart: First heart sound is normal, second heart sound is normal there is systolic ejection murmur 2/6 located in the left sternal border. Abdomen: Soft, nontender, nondistended, positive bowel sounds. Extremities: There is chronic significant venous stasis of right lower extremity with a chronic skin changes dorsalis pedis +1 bilaterally, minimal skin ulceration to the back of the right lower extremity in the left lower extremity. Neurologic examination: Patient is awake alert and oriented x 2, cranial nerves III to XII appear to be grossly intact, muscle power 4 out of 5 in upper extremities and 1 out of 5 in the right lower extremity and 2 out of 5 in the left lower extremity ASSESSMENT AND PLAN: 1. Medical debility with recurrent falls and inability to ambulate with significant weakness of both lower extremities right more than left. CT scan of the lumbar spine did not show evidence of acute fracture did show significant severe degenerative disc disease of the lumbar spine. Consulted Dr. Watts service for evaluation recommendation. Physical therapy evaluation at this time, social media marketing analyst consultation for discharge planning patient will require to go to subacute rehabilitation hopefully around the area in [place]. [facility] or [facility]. 2. Hypertension and hypertensive cardiovascular disease. Continue patient on metoprolol ER 50 mg once every day, losartan 100 mg orally once every day, monitor the patient blood pressure very closely. 3. Mixed hyperlipidemia. Continue atorvastatin 40 mg daily. Keep LDL 55-70. 4. Mild cognitive impairment Likely due to vascular dementia. Patient is not taking any medication at this point in time. 5. History of chronic alcohol use and dependence. patient has quit 6. 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 we will continue with Percocet 10/325 mg 1 tablet every 4 hours [id number], monitor the patient symptoms very closely, spine surgery consultation as well as physical therapy evaluation for possible subacute rehabilitation. 7. Bilateral lower extremity neuropathy continue patient on Lyrica 150 mg orally 3 times every day. 8. DVT prophylaxis. Continue heparin 5000 units subcutaneous every 8 hours. 9. GI prophylaxis. Continue Protonix 40 mg orally once every day. 10. Admit to inpatient. Estimated length of stay 2 midnights. 11. Patient is full code Past Medical History Past Medical History: Hypertension, Osteoarthritis (OA) Additional Past Medical History / Comment(s): ETOH abuse, chronic back pain, BLE neuropathy, lymphedema, multiple falls, cellulitis History of Any Multi-Drug Resistant Organisms: MRSA Date of last positivie culture/infection: 11/05/24 MDRO Source:: RT LEG, RT ankle Past Surgical History: Back Surgery, Orthopedic Surgery, Tonsillectomy Additional Past Surgical History / Comment(s): 3 back laminectomies, hand surgery s/p trauma to reattatch tendons Past Anesthesia/Blood Transfusion Reactions: No Reported Reaction Past Psychological History: No Psychological Hx Reported Additional Psychological History / Comment(s): Patient has fear that he has onset dementia. Smoking Status: Never smoker, Unknown if ever smoked Past Alcohol Use History: None Reported Additional Past Alcohol Use History / Comment(s): jocelynnet states he was never a heavy drinker- patient stated he has not drink in years. Past Drug Use History: None Reported Additional Drug Use History / Comment(s): Patient states that he hasn't drank alcohol in over 2 years. - Past Family History Father Family Medical History: Hypertension Mother Family Medical History: Cancer Additional Family Medical History / Comment(s): Lung cancer Brother(s) Family Medical History: No Reported History Sister(s) Family Medical History: Hypertension Daughter(s) Family Medical History: No Reported History Medications and Allergies Home Medications Medication Instructions Recorded Confirmed Type Aspirin 81 mg PO DAILY tab 11/11/24 12/24/24 Rx Docusate [Colace] 100 mg PO BID cap 11/11/24 12/24/24 Rx Lactulose [Cephulac] 20 gm PO BID ml 11/11/24 12/24/24 Rx Melatonin 10 mg PO HS tab 11/11/24 12/24/24 Rx Atorvastatin [Lipitor] 40 mg PO HS #30 tablet 11/15/24 12/24/24 Rx Pantoprazole Sodium [Protonix] 40 mg PO AC-BRKFST #30 tab 11/15/24 12/24/24 Rx Furosemide [Lasix] 20 mg PO DAILY #30 tablet 12/13/24 12/24/24 Rx Losartan Potassium [Cozaar] 25 mg PO DAILY #30 tab 12/13/24 12/24/24 Rx Metoprolol Succinate (ER) [Toprol 25 mg PO DAILY #0 12/13/24 12/24/24 Rx XL] Potassium Chloride ER [K-Dur 20] 10 meq PO DAILY #30 tab 12/13/24 12/24/24 Rx Pregabalin [Lyrica] 150 mg PO TID@0000,0800,1600 #9 cap 12/13/24 12/24/24 Rx Simethicone Chew [Mylicon Chew] 80 mg PO BID PRN tab 12/13/24 12/24/24 Rx oxyCODONE-APAP 10-325MG [Percocet 1 tab PO Q4H #18 tab 12/13/24 12/24/24 Rx 10-325 mg] traZODone HCL [Desyrel] 50 mg PO HS tab 12/13/24 12/24/24 Rx methylPREDNISolone Dose Pack See Taper PO DIRECTED 12/24/24 12/24/24 History [Medrol Dose Pack] Allergies Allergy/AdvReac Type Severity Reaction Status Date / Time No Known Allergies Allergy Verified 12/24/24 12:46 Physical Exam Vitals: Vital Signs Temp Pulse Pulse Resp BP BP Pulse Ox 12/24/24 17:37 98.0 F 74 17 109/50 98 12/24/24 17:18 70 20 103/58 100 12/24/24 16:52 70 20 115/91 99 12/24/24 15:00 64 18 128/65 98 12/24/24 14:28 62 18 125/70 100 12/24/24 12:45 98.7 F 67 20 118/58 98 Intake and Output 12/24/24 12/24/24 12/24/24 06:59 14:59 22:59 Output Total 1275 Balance -1275 Output: Urine 1275 Other: # Voids 2 Weight 127.006 kg 127.006 kg Results CBC & Chem 7: 12/24/24 13:27 12/24/24 13:27 Labs: Abnormal Lab Results - Last 24 Hours (Table) 12/24/24 12/24/24 12/24/24 Range/Units 13:27 13:27 13:27 RBC 3.48 L (4.40-5.60) 10*6/uL Hgb 10.0 L (13.0-17.0) g/dL Hct 30.7 L (39.6-50.0) % MPV 9.3 L (9.5-12.2) fL APTT 20.8 L (22.0-30.0) sec BUN 30 H (9-20) mg/dL Total Protein 5.8 L (6.3-8.2) g/dL Albumin 3.3 L (3.5-5.0) g/dL Thrombosis Risk Factor Assmnt - Choose All That Apply Any of the Below Risk Factors Present?: Yes Each Factor Represents 1 point: Obesity (BMI >25), Swollen legs (current) Other Risk Factors: Yes Each Risk Factor Represents 2 Points: Age 61-74 years Thrombosis Risk Factor Assessment Total Risk Factor Score: 4 Thrombosis Risk Factor Assessment Level: Moderate Risk
[2024-12-24] MEDS: ATORVASTATIN 40 MG TAB PO SCH (22:06)
[2024-12-24] MEDS: MELATONIN 5 MG TABLET PO SCH (22:06)
[2024-12-24] MEDS: traZODone HCL 50 MG TAB PO SCH (22:06)
[2024-12-24] MEDS: DOCUSATE 100 MG CAP PO SCH (22:07)
[2024-12-24] MEDS: LACTULOSE 20 GM/30 ML CUP PO SCH (22:07)
[2024-12-24] MEDS: PREGABALIN 75 MG CAP PO SCH (23:00)
[2024-12-25 02:11] VITALS: RESP 16
[2024-12-25] MEDS: oxyCODONE-APAP 10-325MG 1 EACH TAB PO SCH (02:57)
[2024-12-25 05:10] LABS: Basophils # (A) 0.06 10*3/uL (0.00-0.10); Basophils % (A) 0.9 %; Eosinophils # (A) 0.32 10*3/uL (0.04-0.35); Eosinophils % (A) 4.7 %; HCT 31.6 % (39.6-50.0); HGB 10.1 g/dL (13.0-17.0); Lymphocytes % (A) 26.5 %; MCH 28.5 pg (27.0-32.0); Mean Platelet Volume 10.3 fL (9.5-12.2); Monocytes # (A) 0.76 10*3/uL (0.20-1.00); Monocytes % (A) 11.2 %; Neutrophils # (A) 3.81 10*3/uL (1.80-7.70); Neutrophils % (A) 56.1 %; Platelet Count 279 10*3/uL (140-440); RBC 3.55 10*6/uL (4.40-5.60); RDW 19.7 % (11.5-14.5); WBC 6.79 10*3/uL (4.50-10.00)
[2024-12-25] MEDS: FUROSEMIDE 20 MG TAB PO SCH (10:01)
[2024-12-25] MEDS: PANTOPRAZOLE 40 MG TABLET PO SCH (10:01)
[2024-12-25] MEDS: POTASSIUM CHLORIDE ER 10 MEQ TAB.ER.PRT PO SCH (10:01)
--- NOTE | 2024-12-25 10:12 | P.PN ---
Subjective Progress Note Date: 12/25/24 HISTORY OF PRESENT ILLNESS: This is a 74-year-old male one of my patient with a previous medical history significant for hypertension and hypertensive cardiovascular disease, hyperlipidemia, obesity with obstructive sleep apnea, history of chronic alcohol use and dependence with the peripheral neuropathy, significant spondylosis of the lumbar spine with spinal stenosis and significant chronic low back pain, patient was recently hospitalized at [facility] from 12/08/2024 till 12/13/2024 after he was admitted for acute kidney injury due to fall induced rhabdomyolysis that required IV fluid resuscitation and nephrology consultation he was seen and evaluated by physical therapy and because of his extreme weakness of both lower extremities patient was transferred at the end of the [facility] visit to [facility] for physical therapy and rehabilitation however the patient signed out AMA after few hours because nobody was caring for him and no one was trying to help him out, patient went back to [facility], and he has struggled quite a bit he was asking for home PT and OT to come to the patient and evaluate him at home, apparently the patient had fallen yesterday out of his bed and he landed on the floor, he ended up calling EMS he had contacted my office stating that he is going to the emergency department because he is not able to care for himself at this point in time, he is not able to use his lower extremity specially the the left lower extremity more than the right lower extremity, patient is not able to move his left lower extremity at all, he is moving the right lower extremity of bed, but this was not very consistent all the time, at this stage the patient stated that he does not belong anywhere but here at the facilities around [place] he wanted to go to one of the facility for physical therapy rehabilitation as he is not able to care for himself at this time, he cannot take care of himself at home, patient did have a laboratory evaluation that showed no evidence of acute abnormalities, he had a chest x-ray did not show evidence of acute abnormalities, CT scan of the brain was negative for acute infarct or bleed, patient had an x-ray of the pelvic area, did not show evidence of any acute fracture, he did have a CT scan of the lumbar spine that showed evidence of severe degenerative disc disease, without evidence of acute fracture, spine surgery consultation was obtained because of pain in the lumbar spine, and inability to ambulate, patient was supposed to see Dr. Watts as an outpatient for issues of spondylosis of the cervical spine and lumbar spine but he never made the appointment. 12/25: Patient sitting at the edge of the bed, he is not able to ambulate on his own at this point in time, we are waiting for physical therapy evaluation as the patient will get up and sit on the commode, I offered him to go in the bedpan but he stated that he wants to sit on the bedside commode instead he denies any chest pain at this time, he has no shortness of breath, he denies any abdominal pain, he does feel like he has to have a bowel movement, I spoke with the social worker clinical about the importance of trying to get the patient into some of the local snf for physical therapy rehabilitation, she promised that she can contact [facility] as well as [facility] to see if they will take him at this point in time, according to the patient the discrepancy in dispute between his case and the was not not getting his pain medication in time and he promised that he is jose follow directions and orders at the nursing facility he does not want to get out of [facility] because he does not have any help at this point in time, other more the patient does appear to have a short-term memory deficit, he continues to forget a lot of things, he was taken off all of his memory medications, and I believe his daughter should be his medical DURABLE POWER OF PRICE ANALYST at this point in time, and make his medical decisions at this point in time and he should follow-up with neurology as an outpatient for further evaluation of his dementia. REVIEW OF SYSTEMS: Constitutional: No documented fever, no chills, no night sweats. No weight change. positive for weakness , reports fatigue reports no lethargy. negative for daytime sleepiness. HEENT: No headache. No blurred vision or double vision, no loss of vision. No loss of Hearing, no ringing in the ears, no dizziness. No nasal drainage or congestion. No epistaxis. No sore throat. Lungs: No shortness of breath, occasional cough, minimal sputum production. No wheezing. Reports dyspnea with activity. Cardiovascular: No chest pain, mild lower extremity edema. No palpitations. No paroxysmal nocturnal dyspnea. No orthopnea. No lightheadedness or dizzin ess. No syncopal episodes.Positive for nocturia. Abdominal: No abdominal pain. No nausea, vomiting. no diarrhea. Occasional constipation. No bloody or tarry stools . No loss of appetite. Genitourinary: No dysuria, increased frequency, urgency. No urinary retention. Musculoskeletal: positive for neck pain, positive for chronic low back pain, positive for pain in both lower extremities with significant neuropathy, positive for gait dysfunction, positive for lower extremity weakness right more than left. Integumentary: venous stasis and stasis dermatitis and venous ulcer to the left lower extremity with a scab as well as the back of the right leg. Neurologic: No aphasia. No facial droop. Positive for memory loss. No head injury. No headache, positive for paresthesia in both lower extremities, Psychiatric: Patient does appear to be somewhat depressed, appears to be a bit anxious, no suicidal thoughts or ideation. Endocrine: No abnormal blood sugars, increased weight. PHYSICAL EXAMINATION: General: This is a 75-year-old male laying down in bed in no apparent distress. HEENT: Head is atraumatic, normocephalic, pupils were equal round reactive to light and recommendation, extraocular muscle movement were intact, sclera nonicteric, conjunctivae were pale, mucous membranes of the mouth are somewhat dry. Neck: Supple, no JVP, normal carotid upstroke bilaterally, no lymphadenopathy. Chest: Decreased breath sounds at the bases, few rhonchi, no expiratory wheezes, no chest wall tenderness, no intercostal retractions. Heart: First heart sound is normal, second heart sound is normal there is systolic ejection murmur 2/6 located in the left sternal border. Abdomen: Soft, nontender, nondistended, positive bowel sounds. Extremities: There is chronic significant venous stasis of right lower extremity with a chronic skin changes dorsalis pedis +1 bilaterally, minimal skin ulceration to the back of the right lower extremity in the left lower extremity. Neurologic examination: Patient is awake alert and oriented x 2, cranial nerves III to XII appear to be grossly intact, muscle power 4 out of 5 in upper extremities and 1 out of 5 in the right lower extremity and 2 out of 5 in the left lower extremity ASSESSMENT AND PLAN: 1. Medical debility with recurrent falls and inability to ambulate with significant weakness of both lower extremities right more than left. CT scan of the lumbar spine did not show evidence of acute fracture did show significant severe degenerative disc disease of the lumbar spine. Consulted Dr. Watts service for evaluation recommendation. Physical therapy evaluation at this time, social worker clinical consultation for discharge planning patient will require to go to subacute rehabilitation hopefully around the area in [place]. [facility] or [facility]. 2. Hypertension and hypertensive cardiovascular disease. Continue patient on metoprolol ER 50 mg once every day, losartan 100 mg orally once every day, monitor the patient blood pressure very closely. 3. Mixed hyperlipidemia. Continue atorvastatin 40 mg daily. Keep LDL 55-70. 4. Mild cognitive impairment Likely due to vascular dementia. Patient is not taking any medication at this point in time. 5. History of chronic alcohol use and dependence. patient has quit 6. 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 we will continue with Percocet 10/325 mg 1 tablet every 4 hours [id number], monitor the patient symptoms very closely, spine surgery consultation as well as physical therapy evaluation for possible subacute rehabilitation. 7. Bilateral lower extremity neuropathy continue patient on Lyrica 150 mg orally 3 times every day. 8. DVT prophylaxis. Continue heparin 5000 units subcutaneous every 8 hours. 9. GI prophylaxis. Continue Protonix 40 mg orally once every day. 10. Try to transfer the patient to subacute rehabilitation when patient gets accepted. 11. Patient is full code Objective - Vital Signs Vital signs: Vital Signs Temp 97.6 F 12/25/24 07:20 Pulse 68 12/25/24 07:20 Resp 16 12/25/24 07:20 BP 118/62 12/25/24 07:20 Pulse Ox 98 12/25/24 07:20 FiO2 Intake & Output 12/24/24 12/25/24 12/25/24 18:59 06:59 18:59 Intake Total 480 Output Total 1275 300 Balance -1275 -300 480 Weight 127.006 kg Intake: Oral 480 Output: Urine 1275 300 Other: Voiding Method Urinal # Voids 2 # Bowel Movements 1 - Labs CBC & Chem 7: 12/25/24 04:24 12/24/24 13:27 Labs: Abnormal Lab Results - Last 24 Hours (Table) 12/24/24 12/24/24 12/24/24 Range/Units 13:27 13:27 13:27 RBC 3.48 L (4.40-5.60) 10*6/uL Hgb 10.0 L (13.0-17.0) g/dL Hct 30.7 L (39.6-50.0) % RDW (11.5-14.5) % MPV 9.3 L (9.5-12.2) fL APTT 20.8 L (22.0-30.0) sec BUN 30 H (9-20) mg/dL Total Protein 5.8 L (6.3-8.2) g/dL Albumin 3.3 L (3.5-5.0) g/dL / Range/Units 04:24 RBC 3.55 L (4.40-5.60) 10*6/uL Hgb 10.1 L (13.0-17.0) g/dL Hct 31.6 L (39.6-50.0) % RDW 19.7 H (11.5-14.5) % MPV (9.5-12.2) fL APTT (22.0-30.0) sec BUN (9-20) mg/dL Total Protein (6.3-8.2) g/dL Albumin (3.5-5.0) g/dL
[2024-12-25 10:50] LABS: ALT 10 U/L (10-49); AST 20 U/L (14-35); Albumin 3.1 g/dL (3.8-4.9); Albumin/Globulin Ratio 1.55 Ratio (1.60-3.17); Alkaline Phosphatase 64 U/L (41-126); BUN/Creat Ratio 25.89 Ratio (12.00-20.00); Blood Urea Nitrogen 23.3 mg/dL (9.0-27.0); Calcium 8.7 mg/dL (8.7-10.3); Carbon Dioxide 29.2 mmol/L (21.6-31.8); Chloride 105 mmol/L (96-109); Glucose 115 mg/dL (70-110); Potassium 4.7 mmol/L (3.5-5.5); Sodium 142 mmol/L (135-145); Total Bilirubin 0.2 mg/dL (0.3-1.2); Total Protein 5.1 g/dL (6.2-8.2)
--- NOTE | 2024-12-25 13:12 | P.CNOR ---
History of Present Illness - [facility] Consult date: 12/25/24 Consult reason: low back pain History of present illness: Patient is a 74-year-old male who presented to [facility] on 12/24/2024 with regards to significant weakness in the bilateral lower extremities along with chronic low back pain complaints and the inability to take care of himself. Patient normally stays up at the [facility] in [place]. Patient has had multiple hospital visits over the last few months with regards to debility, weakness, bilateral lower extremity wounds with history of MRSA infections. Apparently the patient has had a few different stays at subacute rehabs in the area and is left AMA also. Patient states that he is unable to take care of himself at this time, he has been utilizing a wheelchair for ambulation. Our orthopedic team was consulted with regards to the chronic low back pain. Patient had been evaluated by orthopedic services and November 2024, at that time we were evaluating his neck with regards to the discomfort and difficulty with ambulation. CT scan of the head and neck had been done at that time, I was also able to review an MRI of the cervical spine that was done in December 2023. Patient has very significant spondylosis in the cervical spine with varying degrees of both neuroforaminal and central canal stenosis. I recommended follow -up in the outpatient setting with our orthopedic spine team, patient apparently had an appointment scheduled for the near future with Marimar Carr our nurse practitioner. Patient was evaluated today at bedside, he is resting in his hospital chair. He complains more of his low back at this time, he has had chronic low back pain, he takes very high-dose pain medication for this along with Lyrica. Patient admits to significant weakness in his bilateral lower extremities, feels the right leg is worse than the left at this time. A CT scan of the lumbar spine without contrast was done, this demonstrated no acute fractures. Patient denies any numbness or tingling to the genital or perineal region. He denies any loss of bowel or bladder function at this time. He admits to chronic paresthesias in the lower extremities, he feels this is contributed some to his low back but also his alcohol history. Patient does admit to some paresthesias to the bilateral upper extremities that come and go. He denies any nanette weakness to the bilateral upper extremities at this time, he denies any trouble with fine motor movements at this time. Currently patient has no headaches, lightheaded ness, chest pain or shortness of breath. Review of Systems Constitutional: Reports as per HPI Past Medical History Past Medical History: Hypertension, Osteoarthritis (OA) Additional Past Medical History / Comment(s): ETOH abuse, chronic back pain, BLE neuropathy, lymphedema, multiple falls, cellulitis History of Any Multi-Drug Resistant Organisms: MRSA Year Discovered:: 11/05/24 MDRO Source:: RT LEG, RT ankle Past Surgical History: Back Surgery, Orthopedic Surgery, Tonsillectomy Additional Past Surgical History / Comment(s): 3 back laminectomies, hand surgery s/p trauma to reattatch tendons Past Anesthesia/Blood Transfusion Reactions: No Reported Reaction Past Psychological History: No Psychological Hx Reported Additional Psychological History / Comment(s): Patient has fear that he has onset dementia. Smoking Status: Never smoker, Unknown if ever smoked Past Alcohol Use History: None Reported Additional Past Alcohol Use History / Comment(s): jocelynnet states he was never a heavy drinker- patient stated he has not drink in years. Past Drug Use History: None Reported Additional Drug Use History / Comment(s): Patient states that he hasn't drank alcohol in over 2 years. - Past Family History Father Family Medical History: Hypertension Mother Family Medical History: Cancer Additional Family Medical History / Comment(s): Lung cancer Brother(s) Family Medical History: No Reported History Sister(s) Family Medical History: Hypertension Daughter(s) Family Medical History: No Reported History Medications and Allergies Home Medications Medication Instructions Recorded Confirmed Type Aspirin 81 mg PO DAILY tab 11/11/24 12/24/24 Rx Docusate [Colace] 100 mg PO BID cap 11/11/24 12/24/24 Rx Lactulose [Cephulac] 20 gm PO BID ml 11/11/24 12/24/24 Rx Melatonin 10 mg PO HS tab 11/11/24 12/24/24 Rx Atorvastatin [Lipitor] 40 mg PO HS #30 tablet 11/15/24 12/24/24 Rx Pantoprazole Sodium [Protonix] 40 mg PO AC-BRKFST #30 tab 11/15/24 12/24/24 Rx Furosemide [Lasix] 20 mg PO DAILY #30 tablet 12/13/24 12/24/24 Rx Losartan Potassium [Cozaar] 25 mg PO DAILY #30 tab 12/13/24 12/24/24 Rx Metoprolol Succinate (ER) [Toprol 25 mg PO DAILY #0 12/13/24 12/24/24 Rx XL] Potassium Chloride ER [K-Dur 20] 10 meq PO DAILY #30 tab 12/13/24 12/24/24 Rx Pregabalin [Lyrica] 150 mg PO TID@0000,0800,1600 #9 cap 12/13/24 12/24/24 Rx Simethicone Chew [Mylicon Chew] 80 mg PO BID PRN tab 12/13/24 12/24/24 Rx oxyCODONE-APAP 10-325MG [Percocet 1 tab PO Q4H #18 tab 12/13/24 12/24/24 Rx 10-325 mg] traZODone HCL [Desyrel] 50 mg PO HS tab 12/13/24 12/24/24 Rx methylPREDNISolone Dose Pack See Taper PO DIRECTED 12/24/24 12/24/24 History [Medrol Dose Pack] Allergies Allergy/AdvReac Type Severity Reaction Status Date / Time No Known Allergies Allergy Verified 12/24/24 12:46 Physical Examination Gen: AOx3, NAD VSS stable at this time Integument: No open lesions or sores are visualized throughout the cervical, thoracic or lumbar spine. Multiple Optifoam dressings present on the bilateral lower extremities. Edema is noted in the bilateral lower extremities with signs of chronic venous stasis Palpation: Patient demonstrates tenderness with palpation midline and paraspinal posterior cervical region along with the lumbar midline and paraspinal region ROM: Patient has very limited range of motion with cervical extension along with lateral rotation Limited range of motion with shoulder elevation, right being worse than the left, he admits to a chronic shoulder problem is dealt with for many years. Abduction is also limited on the right compared to the left. Adequate range of motion with elbow extension, elbow flexion, wrist extension, wrist flexion, he is able to wiggle all the fingers and no difficulty Range straight significant difficulty with hip flexion. Knee extension, knee flexion, plantarflexion, dorsiflexion, EHL, FHL are intact Sensory Exam: Senory exam to light touch is intact C5-T1 Senosry exam to light touch is intact L2-S1, sensation to light touch is significantly diminished in the L5-S1 distribution bilaterally Motor: 4/5 strength appreciated in the bilateral upper extremities with shoulder elevation and shoulder abduction 5/5 strength appreciated the bilateral upper extremities with elbow extension, elbow flexion, wrist extension, wrist flexion, wheel roller 3/5 strength right lower extremity with hip flexion, knee extension, knee flexion, plantarflexion, FHL, 3-/5 dorsiflexion and EHL 4-/5 strength left lower extremity with hip flexion, knee extension, knee flex ion, plantarflexion, FHL 3+/5 dorsiflexion and EHL Reflexes: 2/4 in all UE and LE Negative Janene's bilaterally Clonus bilaterally, 2-3 beats bilateral lower extremities Results - Labs Labs: Abnormal Lab Results - Last 24 Hours (Table) 12/24/24 12/24/24 12/24/24 Range/Units 13:27 13:27 13:27 RBC 3.48 L (4.40-5.60) 10*6/uL Hgb 10.0 L (13.0-17.0) g/dL Hct 30.7 L (39.6-50.0) % RDW (11.5-14.5) % MPV 9.3 L (9.5-12.2) fL APTT 20.8 L (22.0-30.0) sec BUN 30 H (9-20) mg/dL BUN/Creatinine Ratio (12.00-20.00) Ratio Glucose (70-110) mg/dL Total Bilirubin (0.3-1.2) mg/dL Total Protein 5.8 L (6.3-8.2) g/dL Albumin 3.3 L (3.5-5.0) g/dL Albumin/Globulin Ratio (1.60-3.17) Ratio 12/25/24 12/25/24 Range/Units 04:24 06:44 RBC 3.55 L (4.40-5.60) 10*6/uL Hgb 10.1 L (13.0-17.0) g/dL Hct 31.6 L (39.6-50.0) % RDW 19.7 H (11.5-14.5) % MPV (9.5-12.2) fL APTT (22.0-30.0) sec BUN (9-20) mg/dL BUN/Creatinine Ratio 25.89 H (12.00-20.00) Ratio Glucose 115 H (70-110) mg/dL Total Bilirubin 0.2 L (0.3-1.2) mg/dL Total Protein 5.1 L (6.3-8.2) g/dL Albumin 3.1 L (3.5-5.0) g/dL Albumin/Globulin Ratio 1.55 L (1.60-3.17) Ratio H & H 12/24/24 12/25/24 Range/Units 13:27 04:24 Hgb 10.0 L 10.1 L (13.0-17.0) g/dL Hct 30.7 L 31.6 L (39.6-50.0) % Coagulation 12/24/24 Range/Units 13:27 INR 1.0 (<1.2) Result Diagrams: 12/25/24 04:24 12/25/24 06:44 - Diagnostic results CT Scan - lumbar: report reviewed, image reviewed (Reports and images reviewed, multilevel spondylosis, multilevel vacuum disc phenomenon, multilevel facet arthropathy, multilevel central canal and neuroforaminal stenosis) Assessment and Plan Assessment: Neck pain Multilevel cervical spondylosis Multilevel cervical degenerative disc disease Bilateral upper extremity radiculopathy Bilateral lower extremity weakness, right worse than left Gait disturbance Chronic low back pain Multilevel lumbar spondylosis Multilevel lumbar neuroforaminal and central canal stenosis Multilevel lumbar facet arthropathy Multiple medical comorbidities Plan: I was able to discuss the case, this to include physical exam findings and current imaging studies my attending Dr. Watts. No emergent orthopedic spine surgical intervention recommended at this time Patient's CT scan of the lumbar spine along with his physical exam findings do warrant an MRI of the lumbar spine for further evaluation, this was ordered today Patient has multiple spine pathologies that are contributing to his current medical state, this includes a significant arthritis throughout both the cervical and lumbar spine Pain control, continue with current regimen PT/OT evaluation and recommendations Recommend walker at all times with ambulation GI and DVT prophylaxis per primary medical service Other medical specialty recommendations appreciated Further recommendations to follow Time with Patient: Less than 30
--- NOTE | 2024-12-25 16:11 | MR ---
INDICATION: Patient age:Male; 74 years old; Reason for study: low back pain, lower extremity weakness; PHH. COMPARISONS: CT lumbar spine 12/24/2024. TECHNIQUE: Multi planar, multi sequence imaging was performed utilizing: T1-weighted, T2-weighted, a nd turbo inversion recovery imaging of the lumbar spine. The patient was not given contrast. FINDINGS: The lumbar vertebral bodies do have preserved heights. No spondylolisthesis. Mild dextrocu rvature of the thoracolumbar spine. Straightening of the normal lumbar lordosis. Schmorl's node invol ving the inferior endplate of the L1 vertebral body. Multilevel disc space narrowing with endplate sc lerosis and anterior osteophytosis. Type I Modic changes involving the endplates around the L2-L3 dis c with associated increased or signal. Multilevel disc desiccation is present. The conus medullaris and the distal spinal cord do appear unremarkable with regards to their signal intensity and morpholo gy. Atrophy of the paraspinal musculature. L1-L2: Minimal broad-based disc bulge. Minimal central canal narrowing. Bilateral facet arthropathy. Mild bilateral neural foraminal stenosis. L2-L3: Left paracentral disc protrusion superimposed upon a broad-based disc bulge. Ligamentum flavu m buckling and bilateral facet arthropathy. There is moderate central canal stenosis. Moderate left a nd mild right neural foraminal stenosis. L3-L4: Broad-based disc bulge with ligamentum flavum buckling and bilateral facet arthropathy contri bute to moderate central canal stenosis. Severe right and moderate left neural foraminal stenosis. L4-L5: Broad-based disc bulge with ligamentum flavum buckling and bilateral facet arthropathy contri bute to mild central canal stenosis. Mild left and moderate to severe right neural foraminal stenosis . L5-S1: Broad-based disc bulge with ligamentum flavum buckling and bilateral facet arthropathy contrib [place] to mild central canal stenosis. Moderate to severe left and moderate right neural foraminal steno sis. Other significant findings: None. IMPRESSION: Moderate multilevel disc degeneration with associated osteoarthritic changes as described above. Disc protrusion at L2-L3 results in moderate central canal stenosis. Varying degrees of mild to severe ne ural foraminal stenosis as described above. [facility], , 12/25/2024 4:09 PM
[2024-12-26 07:18] VITALS: BP 120/65; PULSE 63; TEMP 97.6
--- NOTE | 2024-12-26 10:20 | P.DS ---
Providers Date of admission: 12/24/24 15:00 Expected date of discharge: 12/26/24 Attending physician: Johnny Lane Consults: 12/24/24 15:00 Consult Physician Routine Consulting Provider: Madhav Watts Consult Reason/Comments: chronic back pain Do you want consulting provider notified?: Yes Primary care physician: Johnny Lane Hospital Course: HISTORY OF PRESENT ILLNESS: This is a 74-year-old male one of my patient with a previous medical history significant for hypertension and hypertensive cardiovascular disease, hyperlipidemia, obesity with obstructive sleep apnea, history of chronic alcohol use and dependence with the peripheral neuropathy, significant spondylosis of the lumbar spine with spinal stenosis and significant chronic low back pain, patient was recently hospitalized at [facility] from 12/08/2024 till 12/13/2024 after he was admitted for acute kidney injury due to fall induced rhabdomyolysis that required IV fluid resuscitation and nephrology consultation he was seen and evaluated by physical therapy and because of his extreme weakness of both lower extremities patient was transferred at the end of the hospital visit to [facility] for physical therapy and rehabilitation however the patient signed out AMA after few hours because nobody was caring for him and no one was trying to help him out, patient went back to [facility], and he has struggled quite a bit he was asking for home PT and OT to come to the patient and evaluate him at home, apparently the patient had fallen yesterday out of his bed and he landed on the floor, he ended up calling EMS he had contacted my office stating that he is going to the emergency department because he is not able to care for himself at this point in time, he is not able to use his lower extremity specially the the left lower extremity more than the right lower extremity, patient is not able to move his left lower extremity at all, he is moving the right lower extremity of bed, but this was not very consistent all the time, at this stage the patient stated that he does not belong anywhere but here at the facilities around [place] he wanted to go to one of the facility for physical therapy rehabilitation as he is not able to care for himself at this time, he cannot take care of himself at home, patient did have a laboratory evaluation that showed no evidence of acute abnormalities, he had a chest x-ray did not show evidence of acute abnormalities, CT scan of the brain was negative for acute infarct or bleed, patient had an x-ray of the pelvic area, did not show evidence of any acute fracture, he did have a CT scan of the lumbar spine that showed evidence of severe degenerative disc disease, without evidence of acute fracture, spine surgery consultation was obtained because of pain in the lumbar spine, and inability to ambulate, patient was supposed to see Dr. Watts as an outpatient for issues of spondylosis of the cervical spine and lumbar spine but he never made the appointment. 12/25: Patient sitting at the edge of the bed, he is not able to ambulate on his own at this point in time, we are waiting for physical therapy evaluation as the patient will get up and sit on the commode, I offered him to go in the bedpan but he stated that he wants to sit on the bedside commode instead he denies any chest pain at this time, he has no shortness of breath, he denies any abdominal pain, he does feel like he has to have a bowel movement, I spoke with the social worker school about the importance of trying to get the patient into some of the local senior living for physical therapy rehabilitation, she promised that she can contact [facility] as well as [facility] to see if they will take him at this point in time, according to the patient the discrepancy in dispute between his case and the was not not getting his pain medication in time and he promised that he is jose follow directions and orders at the nursing facility he does not want to get out of [facility] because he does not have any help at this point in time, other more the patient does appear to have a short-term memory deficit, he continues to forget a lot of things, he was taken off all of his memory medications, and I believe his daughter should be his medical [employer] at this point in time, and make his medical decisions at this point in time and he should follow-up with neurology as an outpatient for further evaluation of his dementia. 12/26: Patient has been seen by orthopedic spine with recommendations for no emergent orthopedic spine surgery. No plan for MRI at this point. Continue current pain management, PT and OT services, ambulating with a walker. Vital signs have been stable. Patient has been accepted at [facility] in [place] and will be discharged today in stable condition. DISCHARGE DIAGNOSES: 1. Medical debility with recurrent falls and inability to ambulate with significant weakness of both lower extremities right more than left. CT scan of the lumbar spine did not show evidence of acute fracture did show significant severe degenerative disc disease of the lumbar spine. 2. Hypertension and hypertensive cardiovascular disease. 3. Mixed hyperlipidemia. 4. Mild cognitive impairment Likely due to vascular dementia. 5. History of chronic alcohol use and dependence. patient has quit 6. 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 7. Bilateral lower extremity neuropathy. Greater than 35 minutes was utilized in coordinating patient's discharge. Patient Condition at Discharge: Stable Plan - Discharge Summary Discharge Rx Participant: No New Discharge Prescriptions: New Pregabalin [Lyrica] 150 mg PO TID@0000,0800,1600 #9 cap oxyCODONE-APAP 10-325MG [Percocet 10-325 mg] 1 each PO Q4H #18 tab Continue Losartan Potassium [Cozaar] 25 mg PO DAILY #30 tab Potassium Chloride ER [K-Dur 20] 10 meq PO DAILY #30 tab Metoprolol Succinate (ER) [Toprol XL] 25 mg PO DAILY #0 Aspirin 81 mg PO DAILY tab Lactulose [Cephulac] 20 gm PO BID ml Docusate [Colace] 100 mg PO BID cap Melatonin 10 mg PO HS tab Atorvastatin [Lipitor] 40 mg PO HS #30 tablet Pantoprazole Sodium [Protonix] 40 mg PO AC-BRKFST #30 tab traZODone HCL [Desyrel] 50 mg PO HS tab Simethicone Chew [Mylicon Chew] 80 mg PO BID PRN tab PRN Reason: Gi Upset Furosemide [Lasix] 20 mg PO DAILY #30 tablet Discontinued Pregabalin [Lyrica] 150 mg PO TID@0000,0800,1600 #9 cap oxyCODONE-APAP 10-325MG [Percocet 10-325 mg] 1 tab PO Q4H #18 tab methylPREDNISolone Dose Pack [Medrol Dose Pack] See Taper PO DIRECTED Discharge Medication List Aspirin 81 mg PO DAILY tab 11/11/24 [Rx] Docusate [Colace] 100 mg PO BID cap 11/11/24 [Rx] Lactulose [Cephulac] 20 gm PO BID ml 11/11/24 [Rx] Melatonin 10 mg PO HS tab 11/11/24 [Rx] Atorvastatin [Lipitor] 40 mg PO HS #30 tablet 11/15/24 [Rx] Pantoprazole Sodium [Protonix] 40 mg PO AC-BRKFST #30 tab 11/15/24 [Rx] Furosemide [Lasix] 20 mg PO DAILY #30 tablet 12/13/24 [Rx] Losartan Potassium [Cozaar] 25 mg PO DAILY #30 tab 12/13/24 [Rx] Metoprolol Succinate (ER) [Toprol XL] 25 mg PO DAILY #0 12/13/24 [Rx] Potassium Chloride ER [K-Dur 20] 10 meq PO DAILY #30 tab 12/13/24 [Rx] Simethicone Chew [Mylicon Chew] 80 mg PO BID PRN tab 12/13/24 [Rx] traZODone HCL [Desyrel] 50 mg PO HS tab 12/13/24 [Rx] Pregabalin [Lyrica] 150 mg PO TID@0000,0800,1600 #9 cap 12/26/24 [Rx] oxyCODONE-APAP 10-325MG [Percocet 10-325 mg] 1 each PO Q4H #18 tab 12/26/24 [Rx] Follow up Appointment(s)/Referral(s): Johnny Lane MD [Primary Care Provider] - 1 Week (After discharge from rehab) Discharge Disposition: TRANSFER TO SNF/ECF
--- NOTE | 2024-12-26 12:09 | P.PN ---
Progress Note - Text Progress Note Date: 12/26/24 Patient did receive the MRI of his lumbar spine on 12/25/2024. Patient was discharged to subacute rehab today. I did discuss with him yesterday prior to the MRI that evaluating him in the outpatient setting and discussing surgical interventions would be our next step. I was able to discuss this with Dr. Watts yesterday, this to include both his cervical MRI findings and his lumbar spine CT results. Outpatient follow-up will be scheduled Assessment: Neck pain Multilevel cervical spondylosis Multilevel cervical degenerative disc disease Bilateral upper extremity radiculopathy Bilateral lower extremity weakness, right worse than left Gait disturbance Chronic low back pain Multilevel lumbar spondylosis Multilevel lumbar neuroforaminal and central canal stenosis Multilevel lumbar facet arthropathy Multiple medical comorbidities
== END 2024-12-26 11:07 | DRG 552 ==
LOC: EC 12:44 → 5NMEDONC 15:00
PROVIDERS: ADMIT Internal Medicine; ATTEND Internal Medicine
DX: M51.16 Intervertebral disc disorders with radiculopathy, lumbar region (principal); E03.9 Hypothyroidism, unspecified; F01.50 Vascular dementia, unspecified severity, without behavioral disturbance, psychotic disturbance, mood disturbance, and anxiety; E66.9 Obesity, unspecified; G25.81 Restless legs syndrome; M47.26 Other spondylosis with radiculopathy, lumbar region; R53.1 Weakness; R29.6 Repeated falls; Z79.890 Hormone replacement therapy; E78.2 Mixed hyperlipidemia; G89.4 Chronic pain syndrome; I87.8 Other specified disorders of veins; M50.10 Cervical disc disorder with radiculopathy, unspecified cervical region; M47.812 Spondylosis without myelopathy or radiculopathy, cervical region; M47.22 Other spondylosis with radiculopathy, cervical region; G62.9 Polyneuropathy, unspecified; M47.896 Other spondylosis, lumbar region; N40.0 Benign prostatic hyperplasia without lower urinary tract symptoms; Z79.82 Long term (current) use of aspirin; Z79.899 Other long term (current) drug therapy; Z82.49 Family history of ischemic heart disease and other diseases of the circulatory system; Z86.14 Personal history of Methicillin resistant Staphylococcus aureus infection
CPT/HCPCS: 36415; 70450; 71046; 72131; 72148; 72170; 80053; 81003; 83735; 85025; 85610; 85730; 93005; 96372; 99285

== ENCOUNTER 2025-02-11 00:03 | Inpatient (IN) | payer MEDICARE ==
--- NOTE | 2025-02-11 00:47 | ED ---
General Adult HPI - General Chief complaint: Altered Mental Status Stated complaint: Urogenital Time Seen by Provider: 02/11/25 00:10 Source: patient Mode of arrival: EMS Limitations: no limitations - History of Present Illness Initial comments: Patient is a 74-year-old man brought from his long-term care facility. The staff there had heard him calling for help. Patient then reportedly had been found with clothing soaked. He apparently was attempting to drink water from the sink but spilling more water on himself than he was able to obtain. He did not have any sort of container. When I interviewed the patient, he initially is sleeping but when aroused he is able to state that he is not having any pain other than the buttock where there is a skin ulcer. Denies dyspnea. No head, neck, chest, abdomen pain. Location: buttocks Consistency: constant Improves with: none Worsens with: none Associated Symptoms: denies other symptoms - Related Data Previous Rx's Medication Instructions Recorded Aspirin 81 mg PO DAILY tab 11/11/24 Docusate [Colace] 100 mg PO BID cap 11/11/24 Lactulose [Cephulac] 20 gm PO BID ml 11/11/24 Melatonin 10 mg PO HS tab 11/11/24 Atorvastatin [Lipitor] 40 mg PO HS #30 tablet 11/15/24 Pantoprazole Sodium [Protonix] 40 mg PO AC-BRKFST #30 tab 11/15/24 Furosemide [Lasix] 20 mg PO DAILY #30 tablet 12/13/24 Losartan Potassium [Cozaar] 25 mg PO DAILY #30 tab 12/13/24 Metoprolol Succinate (ER) [Toprol 25 mg PO DAILY #0 12/13/24 XL] Potassium Chloride ER [K-Dur 20] 10 meq PO DAILY #30 tab 12/13/24 Simethicone Chew [Mylicon Chew] 80 mg PO BID PRN tab 12/13/24 traZODone HCL [Desyrel] 50 mg PO HS tab 12/13/24 Pregabalin [Lyrica] 150 mg PO TID@0000,0800,1600 #9 cap 12/26/24 oxyCODONE-APAP 10-325MG [Percocet 1 each PO Q4H #18 tab 12/26/24 10-325 mg] Allergies Allergy/AdvReac Type Severity Reaction Status Date / Time No Known Allergies Allergy Verified 02/11/25 00:17 Review of Systems ROS Statement: Those systems with pertinent positive or pertinent negative responses have been documented in the HPI. ROS Other: All systems not noted in ROS Statement are negative. Constitutional: Denies: fever Respiratory: Denies: cough, dyspnea Cardiovascular: Denies: chest pain Gastrointestinal: Denies: abdominal pain, vomiting Musculoskeletal: Reports: as per HPI, back pain (Buttock pain) Skin: Reports: as per HPI, lesions Neurological: Denies: headache Past Medical History Past Medical History: Hypertension, Osteoarthritis (OA) Additional Past Medical History / Comment(s): ETOH abuse, chronic back pain, BLE neuropathy, lymphedema, multiple falls, cellulitis History of Any Multi-Drug Resistant Organisms: MRSA Date of last positivie culture/infection: 11/05/24 MDRO Source:: RT LEG, RT ankle Past Surgical History: Back Surgery, Orthopedic Surgery, Tonsillectomy Additional Past Surgical History / Comment(s): 3 back laminectomies, hand surgery s/p trauma to reattatch tendons Past Anesthesia/Blood Transfusion Reactions: No Reported Reaction Past Psychological History: No Psychological Hx Reported Smoking Status: Never smoker, Unknown if ever smoked Past Alcohol Use History: None Reported Past Drug Use History: None Reported - Past Family History Father Family Medical History: Hypertension Mother Family Medical History: Cancer Additional Family Medical History / Comment(s): Lung cancer Brother(s) Family Medical History: No Reported History Sister(s) Family Medical History: Hypertension Daughter(s) Family Medical History: No Reported History General Exam Limitations: no limitations General appearance: in no apparent distress, other (Somnolent but arousable. Patient mainly complaining of pain to the buttock, indicating a skin ulcer) Head exam: Present: atraumatic, normocephalic Eye exam: Present: normal appearance. Absent: scleral icterus, conjunctival injection Neck exam: Present: normal inspection. Absent: tenderness Respiratory exam: Present: rhonchi. Absent: respiratory distress, wheezes, rales, stridor, accessory muscle use Cardiovascular Exam: Present: regular rate, normal rhythm, systolic murmur. Absent: diastolic murmur, rubs, gallop GI/Abdominal exam: Present: soft. Absent: distended, tenderness, guarding, rebound, rigid, mass, pulsatile mass, hernia Extremities exam: Present: normal inspection, normal capillary refill. Absent: pedal edema, calf tenderness Back exam: Present: normal inspection. Absent: CVA tenderness (R), CVA tenderness (L) Neurological exam: Present: alert, oriented X3 (Oriented to person). Absent: CN II-XII intact, motor sensory deficit Skin exam: Present: warm, dry, other (The patient has approximately 2 x 4 cm decubitus ulcer posterior aspect of the upper leg/distal buttock. Smaller ulcer to the contralateral side probably 1 x 2 cm. Both stage II.) Course Vital Signs 02/11/25 02/11/25 00:12 03:36 Temperature 98.2 F Pulse Rate 77 66 Respiratory 18 18 Rate Blood Pressure 156/63 159/76 O2 Sat by Pulse 98 96 Oximetry Medical Decision Making - Medical Decision Making Patient is 74-year-old man brought to have evaluation for altered mental status. The patient oriented x 2, neurologic exam otherwise not very remarkable. He is able to follow simple commands, move all 4 extremities. Will admit to have further evaluation. - Lab Data Result diagrams: 02/11/25 01:12 02/11/25 01:12 Lab Results 02/11/25 02/11/25 02/11/25 Range/Units 01:12 01:12 01:12 WBC 10.17 H (4.50-10.00) 10*3/uL RBC 3.58 L (4.40-5.60) 10*6/uL Hgb 10.7 L (13.0-17.0) g/dL Hct 32.2 L (39.6-50.0) % MCV 89.9 (80.0-97.0) fL MCH 29.9 (27.0-32.0) pg MCHC 33.2 (32.0-37.0) g/dL Plt Count 228 (140-440) 10*3/uL MPV 11.1 (9.5-12.2) fL Immature Gran % (Auto) 0.5 % Neutrophils % 74.7 % Lymphocytes % 12.8 % Monocytes % 10.9 % Eosinophils % 0.7 % Basophils % 0.4 % Immature Gran # 0.05 H (0.00-0.04) 10*3/uL Neutrophils # 7.60 (1.80-7.70) 10*3/uL Lymphocytes # 1.30 (0.90-5.00) 10*3/uL Monocytes # 1.11 H (0.20-1.00) 10*3/uL Eosinophils # 0.07 (0.04-0.35) 10*3/uL Basophils # 0.04 (0.00-0.10) 10*3/uL Sodium 136 L (137-145) mmol/L Potassium 5.4 H (3.5-5.1) mmol/L Chloride 98 (98-107) mmol/L Carbon Dioxide 30 (22-30) mmol/L Anion Gap 8 mmol/L BUN 38 H (9-20) mg/dL Creatinine 1.24 (0.66-1.25) mg/dL Est GFR (CKD-EPI)AfAm 67 (>60 ml/min/1.73 sqM) Est GFR (CKD-EPI)NonAf 58 (>60 ml/min/1.73 sqM) Glucose 102 H (74-99) mg/dL Plasma Lactic Acid Gerardo 1.1 (0.7-2.0) mmol/L Calcium 9.8 (8.4-10.2) mg/dL Total Bilirubin 0.7 (0.2-1.3) mg/dL AST 28 (17-59) U/L ALT 12 (4-49) U/L Alkaline Phosphatase 64 (38-126) U/L Troponin I (0.000-0.034) ng/mL Total Protein 6.4 (6.3-8.2) g/dL Albumin 3.9 (3.5-5.0) g/dL Urine Color Urine Appearance (Clear) Urine pH (5.0-8.0) Ur Specific [place] (1.001-1.035) Urine Protein (Negative) Urine Glucose (UA) (Negative) Urine Ketones (Negative) Urine Blood (Negative) Urine Nitrite (Negative) Urine Bilirubin (Negative) Urine Urobilinogen (<2.0) mg/dL Ur Leukocyte Esterase (Negative) 02/11/25 02/11/25 Range/Units 01:12 02:30 WBC (4.50-10.00) 10*3/uL RBC (4.40-5.60) 10*6/uL Hgb (13.0-17.0) g/dL Hct (39.6-50.0) % MCV (80.0-97.0) fL MCH (27.0-32.0) pg MCHC (32.0-37.0) g/dL Plt Count (140-440) 10*3/uL MPV (9.5-12.2) fL Immature Gran % (Auto) % Neutrophils % % Lymphocytes % % Monocytes % % Eosinophils % % Basophils % % Immature Gran # (0.00-0.04) 10*3/uL Neutrophils # (1.80-7.70) 10*3/uL Lymphocytes # (0.90-5.00) 10*3/uL Monocytes # (0.20-1.00) 10*3/uL Eosinophils # (0.04-0.35) 10*3/uL Basophils # (0.00-0.10) 10*3/uL Sodium (137-145) mmol/L Potassium (3.5-5.1) mmol/L Chloride (98-107) mmol/L Carbon Dioxide (22-30) mmol/L Anion Gap mmol/L BUN (9-20) mg/dL Creatinine (0.66-1.25) mg/dL Est GFR (CKD-EPI)AfAm (>60 ml/min/1.73 sqM) Est GFR (CKD-EPI)NonAf (>60 ml/min/1.73 sqM) Glucose (74-99) mg/dL Plasma Lactic Acid Gerardo (0.7-2.0) mmol/L Calcium (8.4-10.2) mg/dL Total Bilirubin (0.2-1.3) mg/dL AST (17-59) U/L ALT (4-49) U/L Alkaline Phosphatase (38-126) U/L Troponin I <0.012 (0.000-0.034) ng/mL Total Protein (6.3-8.2) g/dL Albumin (3.5-5.0) g/dL Urine Color Colorless Urine Appearance Clear (Clear) Urine pH 5.0 (5.0-8.0) Ur Specific [place] 1.005 (1.001-1.035) Urine Protein Negative (Negative) Urine Glucose (UA) Negative (Negative) Urine Ketones Negative (Negative) Urine Blood Negative (Negative) Urine Nitrite Negative (Negative) Urine Bilirubin Negative (Negative) Urine Urobilinogen <2.0 (<2.0) mg/dL Ur Leukocyte Esterase Negative (Negative) Disposition Clinical Impression: Altered mental status Disposition: ADMITTED IP TO THIS HOSP Condition: Good Is patient prescribed a controlled substance at d/c from ED?: No Referrals: Johnny Lane MD [Primary Care Provider] - 1-2 days
[2025-02-11] MEDS: SODIUM CHLORIDE 0.9% 500 ML 500 ML IV STA (01:19)
[2025-02-11 01:33] LABS: Basophils # (A) 0.04 10*3/uL (0.00-0.10); Basophils % (A) 0.4 %; Eosinophils # (A) 0.07 10*3/uL (0.04-0.35); Eosinophils % (A) 0.7 %; HCT 32.2 % (39.6-50.0); HGB 10.7 g/dL (13.0-17.0); Lymphocytes % (A) 12.8 %; MCH 29.9 pg (27.0-32.0); MCHC 33.2 g/dL (32.0-37.0); MCV 89.9 fL (80.0-97.0); Mean Platelet Volume 11.1 fL (9.5-12.2); Monocytes # (A) 1.11 10*3/uL (0.20-1.00); Monocytes % (A) 10.9 %; Neutrophils % (A) 74.7 %; Platelet Count 228 10*3/uL (140-440); RBC 3.58 10*6/uL (4.40-5.60); RDW 16.5 % (11.5-14.5); WBC 10.17 10*3/uL (4.50-10.00)
[2025-02-11 01:55] LABS: ALT 12 U/L (4-49); AST 28 U/L (17-59); African American GFR (CKD) 67 (>60 ml/min/1.73 sqM); Albumin 3.9 g/dL (3.5-5.0); Alkaline Phosphatase 64 U/L (38-126); Anion Gap 8 mmol/L; Blood Urea Nitrogen 38 mg/dL (9-20); Calcium 9.8 mg/dL (8.4-10.2); Carbon Dioxide 30 mmol/L (22-30); Chloride 98 mmol/L (98-107); Glucose 102 mg/dL (74-99); Non-African American GFR(CKD) 58 (>60 ml/min/1.73 sqM); Potassium 5.4 mmol/L (3.5-5.1); Sodium 136 mmol/L (137-145); Total Bilirubin 0.7 mg/dL (0.2-1.3); Total Protein 6.4 g/dL (6.3-8.2)
--- NOTE | 2025-02-11 02:28 | CT ---
EXAM: CT Head Without Intravenous Contrast CLINICAL HISTORY: ams found drinking excessive water at sink. H/O HTN, ETOH abuse. attempted scan twice due to pts tremors + inability to follow instructions. TECHNIQUE: Axial computed tomography images of the head/brain without intravenous contrast. CTDI is 94.2 mGy and DLP is 2922.4 mGy-cm. This CT exam was performed using one or more of the following dose reduction techniques: automated exposure control, adjustment of the mA and/or kV according to patient size, and/or use of iterative reconstruction technique. COMPARISON: No relevant prior studies available. FINDINGS: Brain: No hemorrhage or mass effect. Ventricles: No hydrocephalus. Bones/joints: Unremarkable. Soft tissues: Unremarkable. Sinuses: No air fluid level. Mastoid air cells: Clear. IMPRESSION: No acute hemorrhage, hydrocephalus, or mass effect.
[2025-02-11 03:18] LABS: Appearance,Urine Clear (Clear); Bilirubin,Urine Negative (Negative); Blood,Urine Negative (Negative); Color,Urine Colorless; Glucose,Urine (UA) Negative (Negative); Ketones,Urine Negative (Negative); Leukocyte Esterase,Urine Negative (Negative); Nitrite,Urine Negative (Negative); Protein,Urine Negative (Negative); Specific Gravity,Urine 1.005 (1.001-1.035); Urobilinogen,Urine <2.0 mg/dL (<2.0)
[2025-02-11] MEDS ORDERED: ACETAMINOPHEN TAB 325 MG TAB PO PRN (07:39)
[2025-02-11] MEDS ORDERED: NALOXONE 0.4 MG/ML 1 ML VIAL IV PRN (07:39)
[2025-02-11] MEDS: SODIUM CHLORIDE 0.9% 1,000 ML IV SCH ×2 (09:31→12:13)
[2025-02-11] MEDS ORDERED: QUEtiapine 25 MG TAB PO PRN (11:02)
--- NOTE | 2025-02-11 11:10 | P.HPIM ---
History of Present Illness Patient is a 74-year-old male with known history of dementia which appears to be moderate to severe baseline alert oriented x 2 was brought in with concerns of confusion and patient was trying to drink water spilling more. Patient is from [facility]. It appears patient was brought in here because of probably the level of care he will need. I am unable to get any history from the patient as patient falls asleep pretty quickly after answering 1 question but is always arousable. Patient does not have any fever does have mild leukocytosis I do not have any chest x-ray but urinalysis did not show any significant abnormality patient does not have any cough. Patient creatinine although is elevated to 1.24 baseline is within normal limits. Patient is on Lasix at home patient does not have any history of congestive heart failure had a normal ejection fraction in the past. I believe patient is on Lasix for peripheral edema. Patient is also on some medications that can cause confusion acutely which include trazodone, Percocet, Lyrica patient does have peripheral neuropathy patient does get up and asked for pain medication and goes back to sleep quickly. Patient does have mildly elevated potassium of 5.4. Patient is on losartan. CT of the head did not show any acute pathology. REVIEW OF SYSTEMS: All other systems are negative except those mentioned in the HPI PHYSICAL EXAMINATION: GENERAL: The patient is alert and oriented x2, not in any acute distress. Well developed, well nourished. HEENT: Pupils are round and equally reacting to light. EOMI. No scleral icterus. No conjunctival pallor. Normocephalic, atraumatic. No pharyngeal erythema. No thyromegaly. CARDIOVASCULAR: S1 and S2 present. No murmurs, rubs, or gallops. PULMONARY: Chest is clear to auscultation, no wheezing or crackles. ABDOMEN: Soft, nontender, nondistended, normoactive bowel sounds. No palpable organomegaly. MUSCULOSKELETAL: No joint swelling or deformity. EXTREMITIES: No cyanosis, clubbing, or pedal edema. NEUROLOGICAL: Significantly limited but moving all 4 limbs does not appear to be have any focal weaknesses SKIN: No rashes. Assessment and plan -Possible altered mental status is probably due to advancing dementia and medications may have contributed to his toxic encephalopathy. Will hold off on oxycodone, trazodone will continue with the pregabalin. History of oxycodone will just use Tylenol for pain, Seroquel at nighttime as needed for agitation. - Moderate to severe vascular dementia for which patient will need PT and OT evaluation and probably will need placement - Generalized weakness Mild acute renal failure secondary to diuretics: Diuretics will be held I believe diuretics are being used for peripheral edema patient will be started on IV fluids - Hypertension patient blood pressure is elevated still holding his losartan because of hyperkalemia and acute renal failure his blood pressure is expected to stay high today if renal failure improves and potassium improves patient was started on low potassium diet and will be resumed on losartan - Hyperlipidemia - History of chronic alcohol dependence presently not alcoholic - 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 for which patient is on Lyrica which will be resumed DVT prophylaxis: Subcutaneous heparin 3 times a day 5000 units Past Medical History Past Medical History: Hypertension, Osteoarthritis (OA) Additional Past Medical History / Comment(s): ETOH abuse, chronic back pain, BLE neuropathy, lymphedema, multiple falls, cellulitis History of Any Multi-Drug Resistant Organisms: MRSA Date of last positivie culture/infection: 11/05/24 MDRO Source:: RT LEG, RT ankle Past Surgical History: Back Surgery, Orthopedic Surgery, Tonsillectomy Additional Past Surgical History / Comment(s): 3 back laminectomies, hand surgery s/p trauma to reattatch tendons Past Anesthesia/Blood Transfusion Reactions: No Reported Reaction Past Psychological History: No Psychological Hx Reported Smoking Status: Never smoker, Unknown if ever smoked Past Alcohol Use History: None Reported Past Drug Use History: None Reported - Past Family History Father Family Medical History: Hypertension Mother Family Medical History: Cancer Additional Family Medical History / Comment(s): Lung cancer Brother(s) Family Medical History: No Reported History Sister(s) Family Medical History: Hypertension Daughter(s) Family Medical History: No Reported History Medications and Allergies Home Medications Medication Instructions Recorded Confirmed Type Lactulose [Cephulac] 20 gm PO BID ml 11/11/24 02/11/25 Rx Atorvastatin [Lipitor] 40 mg PO HS #30 tablet 11/15/24 02/11/25 Rx Docusate [Colace] 100 mg PO BID PRN 02/11/25 02/11/25 History Famotidine [Pepcid] 40 mg PO DAILY 02/11/25 02/11/25 History Folic Acid 0.8 mg PO DAILY 02/11/25 02/11/25 History Furosemide [Lasix] 40 mg PO DAILY 02/11/25 02/11/25 History Losartan Potassium [Cozaar] 100 mg PO DAILY 02/11/25 02/11/25 History Metoprolol Succinate (ER) [Toprol 50 mg PO DAILY 02/11/25 02/11/25 History XL] Montelukast Sodium 10 mg PO HS 02/11/25 02/11/25 History Potassium Chloride ER [K-Dur 20] 20 meq PO DAILY 02/11/25 02/11/25 History Pregabalin [Lyrica] 150 mg PO BID 02/11/25 02/11/25 History oxyCODONE-APAP 10-325MG [Percocet 1 tab PO Q6H PRN 02/11/25 02/11/25 History 10-325 mg] traZODone HCL [Desyrel] 50 mg PO HS PRN 02/11/25 02/11/25 History Allergies Allergy/AdvReac Type Severity Reaction Status Date / Time No Known Allergies Allergy Verified 02/11/25 09:46 Physical Exam Vitals: Vital Signs Temp Pulse Resp BP Pulse Ox 02/11/25 09:20 98.1 F 63 16 166/75 98 02/11/25 03:36 66 18 159/76 96 02/11/25 00:12 98.2 F 77 18 156/63 98 Intake and Output 02/10/25 02/11/25 02/11/25 22:59 06:59 14:59 Other: Weight 127.006 kg Results CBC & Chem 7: 02/11/25 01:12 02/11/25 01:12 Labs: Abnormal Lab Results - Last 24 Hours (Table) 02/11/25 02/11/25 Range/Units 01:12 01:12 WBC 10.17 H (4.50-10.00) 10*3/uL RBC 3.58 L (4.40-5.60) 10*6/uL Hgb 10.7 L (13.0-17.0) g/dL Hct 32.2 L (39.6-50.0) % Immature Gran # 0.05 H (0.00-0.04) 10*3/uL Monocytes # 1.11 H (0.20-1.00) 10*3/uL Sodium 136 L (137-145) mmol/L Potassium 5.4 H (3.5-5.1) mmol/L BUN 38 H (9-20) mg/dL Glucose 102 H (74-99) mg/dL
[2025-02-11] MEDS ORDERED: NON FORMULARY DRUG (Losartan Potassium [Cozaar] 100 MG Tablet) PO SCH (11:15)
[2025-02-11] MEDS: HEPARIN SODIUM,PORCINE 5,000 UNIT/ML 1 ML VIAL SQ SCH (16:15)
[2025-02-11] MEDS ORDERED: ZINC OXIDE PASTE (Z-GUARD) 1 APPLIC TOPICAL PRN (17:49)
[2025-02-11] MEDS: oxyCODONE-APAP 10-325MG 1 EACH TAB PO PRN (18:03)
[2025-02-11] MEDS: LACTULOSE 20 GM/30 ML CUP PO SCH (20:55)
[2025-02-11] MEDS: MONTELUKAST 10 MG TAB PO SCH (22:13)
[2025-02-11] MEDS: ATORVASTATIN 40 MG TAB PO SCH (22:13)
[2025-02-11] MEDS: PREGABALIN 75 MG CAP PO SCH (22:13)
[2025-02-12] MEDS: DIPHENOX-ATROP 2.5-0.025 MG 1 EACH TAB PO PRN (00:49)
[2025-02-12] MEDS: METOPROLOL SUCCINATE (ER) 50 MG TAB.ER.24H PO SCH (08:36)
[2025-02-12] MEDS: FAMOTIDINE 20 MG TAB PO SCH (08:36)
[2025-02-12] MEDS: FOLIC ACID 1 MG TAB PO SCH (08:36)
[2025-02-12 10:41] VITALS: BMI 36.9
--- NOTE | 2025-02-12 11:01 | P.PN ---
Subjective Patient is a 74-year-old male with known history of dementia which appears to be moderate to severe baseline alert oriented x 2 was brought in with concerns of confusion and patient was trying to drink water spilling more. Patient is from [facility]. It appears patient was brought in here because of probably the level of care he will need. I am unable to get any history from the patient as patient falls asleep pretty quickly after answering 1 question but is always arousable. Patient does not have any fever does have mild leukocytosis I do not have any chest x-ray but urinalysis did not show any significant abnormality patient does not have any cough. Patient creatinine although is elevated to 1.24 baseline is within normal limits. Patient is on Lasix at home patient does not have any history of congestive heart failure had a normal ejection fraction in the past. I believe patient is on Lasix for peripheral edema. Patient is also on some medications that can cause confusion acutely which include trazodone, Percocet, Lyrica patient does have peripheral neuropathy patient does get up and asked for pain medication and goes back to sleep quickly. Patient does have mildly elevated potassium of 5.4. Patient is on losartan. CT of the head did not show any acute pathology. 02/12/2025 Patient was having significant diarrhea lactulose was discontinued, C. difficile was negative. Patient was started on Lomotil. I held his Percocet but this was restarted last night by covering physician as patient was recs worsening for this medication. Awaiting physical therapy and Occupational Therapy evaluation probably will need placement in subacute rehabilitation. Patient is at his baseline alert oriented x 2-3. I will cut down the dose of Percocet to half. REVIEW OF SYSTEMS: All other systems are negative except those mentioned in the HPI PHYSICAL EXAMINATION: GENERAL: The patient is alert and oriented x3, not in any acute distress. Well developed, well nourished. HEENT: Pupils are round and equally reacting to light. EOMI. No scleral icterus. No conjunctival pallor. Normocephalic, atraumatic. No pharyngeal erythema. No thyromegaly. CARDIOVASCULAR: S1 and S2 present. No murmurs, rubs, or gallops. PULMONARY: Chest is clear to auscultation, no wheezing or crackles. ABDOMEN: Soft, nontender, nondistended, normoactive bowel sounds. No palpable organomegaly. MUSCULOSKELETAL: No joint swelling or deformity. EXTREMITIES: No cyanosis, clubbing, or pedal edema. NEUROLOGICAL: Significantly limited but moving all 4 limbs does not appear to be have any focal weaknesses SKIN: No rashes. Assessment and plan -Possible altered mental status is probably due to advancing dementia and medications may have contributed to his toxic encephalopathy. Improved with hold off on oxycodone, trazodone will continue with the pregabalin. Patient was started back on Percocet, will decrease the dose Seroquel at nighttime as needed for agitation. - Moderate to severe vascular dementia for which patient will need PT and OT evaluation and probably will need placement - Generalized weakness Mild acute renal failure secondary to diuretics: Diuretics will be held I believe diuretics are being used for peripheral edema, awaiting basic metabolic profile, will discontinue IV fluids - Hypertension patient blood pressure is elevated still holding his losartan because of hyperkalemia and acute renal failure his blood pressure is expected to stay high today if renal failure improves and potassium improves patient was started on low potassium diet and will be resumed on losartan - Hyperlipidemia - History of chronic alcohol dependence presently not alcoholic - 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
[2025-02-12 11:37] LABS: HCT 30.9 % (39.6-50.0); HGB 10.1 g/dL (13.0-17.0); MCH 29.9 pg (27.0-32.0); MCHC 32.7 g/dL (32.0-37.0); MCV 91.4 fL (80.0-97.0); Mean Platelet Volume 10.3 fL (9.5-12.2); Platelet Count 229 10*3/uL (140-440); RBC 3.38 10*6/uL (4.40-5.60); RDW 16.6 % (11.5-14.5); WBC 8.44 10*3/uL (4.50-10.00)
[2025-02-12 11:56] LABS: African American GFR (CKD) >90 (>60 ml/min/1.73 sqM); Anion Gap 8 mmol/L; Blood Urea Nitrogen 23 mg/dL (9-20); Calcium 9.1 mg/dL (8.4-10.2); Carbon Dioxide 29 mmol/L (22-30); Chloride 101 mmol/L (98-107); Glucose 91 mg/dL (74-99); Magnesium 2.1 mg/dL (1.6-2.3); Non-African American GFR(CKD) >90 (>60 ml/min/1.73 sqM); Potassium 4.2 mmol/L (3.5-5.1); Sodium 138 mmol/L (137-145)
[2025-02-12] MEDS: oxyCODONE-APAP 7.5-325MG 1 EACH TAB PO SCH (20:16)
[2025-02-13] MEDS: oxyCODONE-APAP 7.5-325MG 1 EACH TAB PO STA (04:04)
[2025-02-13 05:04] LABS: African American GFR (CKD) >90 (>60 ml/min/1.73 sqM); Anion Gap 7 mmol/L; Blood Urea Nitrogen 17 mg/dL (9-20); Calcium 9.2 mg/dL (8.4-10.2); Carbon Dioxide 30 mmol/L (22-30); Chloride 99 mmol/L (98-107); Glucose 92 mg/dL (74-99); Non-African American GFR(CKD) 85 (>60 ml/min/1.73 sqM); Potassium 3.8 mmol/L (3.5-5.1); Sodium 136 mmol/L (137-145)
--- NOTE | 2025-02-13 13:26 | P.PN ---
Subjective Progress Note Date: 02/13/25 Patient is a 74-year-old male with known history of dementia which appears to be moderate to severe baseline alert oriented x 2 was brought in with concerns of confusion and patient was trying to drink water spilling more. Patient is from [facility]. It appears patient was brought in here because of probably the level of care he will need. I am unable to get any history from the patient as patient falls asleep pretty quickly after answering 1 question but is always arousable. Patient does not have any fever does have mild leukocytosis I do not have any chest x-ray but urinalysis did not show any significant abnormality patient does not have any cough. Patient creatinine although is elevated to 1.24 baseline is within normal limits. Patient is on Lasix at home patient does not have any history of congestive heart failure had a normal ejection fraction in the past. I believe patient is on Lasix for peripheral edema. Patient is also on some medications that can cause confusion acutely which include trazodone, Percocet, Lyrica patient does have peripheral neuropathy patient does get up and asked for pain medication and goes back to sleep quickly. Patient does have mildly elevated potassium of 5.4. Patient is on losartan. CT of the head did not show any acute pathology. 02/12/2025 Patient was having significant diarrhea lactulose was discontinued, C. difficile was negative. Patient was started on Lomotil. I held his Percocet but this was restarted last night by covering physician as patient was recs worsening for this medication. Awaiting physical therapy and Occupational Therapy evaluation probably will need placement in subacute rehabilitation. Patient is at his baseline alert oriented x 2-3. I will cut down the dose of Percocet to half. 02/13/2025 Patient is evaluated in follow-up in the medical floor. He is frustrated as his pain medication has been decreased to every 12 hours. It is explained that he was found unresponsive and follow-up was due to a medication effect he states that he has been on his pain medication for many years. He is requesting that his pain medication be increased back to every 6 hours. He was evaluated PT with recommendation of subacute rehab and patient is open to this, currently pending social work to follow-up with the patient. Review of Systems Constitutional: Denied any fatigue denied any fever. Cardio vascular: denied any chest pain, palpitations Gastrointestinal: denied any nausea, vomiting, diarrhea Pulmonary: Denied any shortness of breath cough Neurologic denied any new focal deficits All inpatient medications were reviewed and appropriate changes in these medications as dictated in the interval history and assessment and plan. PHYSICAL EXAMINATION: GENERAL: The patient is alert and oriented x3, not in any acute distress. Well developed, well nourished. HEENT: Pupils are round and equally reacting to light. EOMI. No scleral icterus. No conjunctival pallor. Normocephalic, atraumatic. No pharyngeal erythema. No thyromegaly. CARDIOVASCULAR: S1 and S2 present. No murmurs, rubs, or gallops. PULMONARY: Chest is clear to auscultation, no wheezing or crackles. ABDOMEN: Soft, nontender, nondistended, normoactive bowel sounds. No palpable organomegaly. MUSCULOSKELETAL: No joint swelling or deformity. EXTREMITIES: No cyanosis, clubbing, or pedal edema. NEUROLOGICAL: Significantly limited but moving all 4 limbs does not appear to be have any focal weaknesses SKIN: No rashes. Assessment and plan - Possible altered mental status is probably due to advancing dementia and medications may have contributed to his toxic encephalopathy. Improved with hold off on oxycodone, trazodone will continue with the pregabalin. Patient was started back on Percocet, will decrease the dose Seroquel at nighttime as needed for agitation. 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 Blood pressure in the 100-120s systolic today. Continue holding losartan. 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 Monitor blood pressure. PT/OT recommending [facility] and pending social work to follow up. The impression and plan of care has been dictated by Batsheva Milton, Nurse Practitioner as directed. Dr. Nadira MD I have performed a history and physical examination and medical decision making of this patient, discussed the same with the dictator, and agree with the dictators assessment and plan as written, documented as a scribe. Based on total visit time, I have performed more than 50% of this visit. Objective - Vital Signs Vital signs: Vital Signs Temp 97.7 F 02/13/25 08:15 Pulse 61 02/13/25 08:15 Resp 16 02/13/25 09:03 BP 103/59 02/13/25 08:15 Pulse Ox 99 02/13/25 08:15 FiO2 Intake & Output 02/12/25 02/13/25 02/13/25 18:59 06:59 18:59 Intake Total 118 Output Total 500 600 Balance -500 -600 118 Weight 127.006 kg Intake: Oral 118 Output: Urine 500 600 Other: Voiding Method Urinal Urinal Urinal # Voids 1 # Bowel Movements 2 - Labs CBC & Chem 7: 02/12/25 11:06 02/13/25 04:22 Labs: Abnormal Lab Results - Last 24 Hours (Table) 02/13/25 Range/Units 04:22 Sodium 136 L (137-145) mmol/L Assessment and Plan Time with Patient: Less than 30
[2025-02-13] MEDS: oxyCODONE-APAP 7.5-325MG 1 EACH TAB PO PRN (17:02)
--- NOTE | 2025-02-14 10:34 | P.CONS ---
History of Present Illness - Reason for Consult Consult date: 02/14/25 wound care - History of Present Illness This is a 74-year-old patient being seen on [address] for nonhealing ulceration to the right medial calf and multiple open ulcerations to the right and left buttocks. The right buttocks has a stage II pressure ulcer with multiple small ulcerations. Patient states that every time he moves the area bleeds and is painful. Patient has not been utilizing any type of dressings. Until he came into the hospital where they have been utilizing a bordered foam. Patient states that the bordered foam helps with the discomfort. Patient also has an open ulceration to the right medial calf measuring approximately 2 x 1.6 x 0.1 cm with granulation seen throughout the wound bed slough and nonviable tissue present. The wound edges are attached to the wound base no tunneling or undermining noted there is erythema noted to the periwound. Patient does have 2+ pitting edema bilaterally. Review Of Systems: Constitutional: No fever, no chills, no night sweats. No weight change. No weakness, fatigue or lethargy. No daytime sleepiness. Integumentary:reports wounds, no lesions. No rash or pruritus. No unusual bruising. No change in hair or nails. Physical exam: General Appearance: Alert, cooperative, no distress, appears stated age. Skin: See HPI all other Skin color, texture, tugor normal, no rashes or lesions. Neurologic: Alert oriented x3 Assessment: 1. Stage II pressure ulcer right buttocks 2. Nonhealing ulceration with fat layer exposure right lower extremity Plan: 1.Right medial lower extremity: Apply honey gel bordered foam and Rocky wrap for compression. Right buttocks apply honey gel and bordered foam. Utilize air- filled cushion while sitting. Turn patient every 2 hours or change position every 2 hours. Patient may benefit from advanced wound care in the wound care setting. Would be happy to see him upon discharge. Thank you for the consultation any questions please contact the wound care center DNP note has been reviewed and discussed with Dr. Segura and the impression and plan of care has been directed as dictated. Past Medical History Past Medical History: Hypertension, Osteoarthritis (OA) Additional Past Medical History / Comment(s): ETOH abuse, chronic back pain, BLE neuropathy, lymphedema, multiple falls, cellulitis History of Any Multi-Drug Resistant Organisms: MRSA Year Discovered:: 11/05/24 MDRO Source:: RT LEG, RT ankle Past Surgical History: Back Surgery, Orthopedic Surgery, Tonsillectomy Additional Past Surgical History / Comment(s): 3 back laminectomies, hand surgery s/p trauma to reattatch tendons Past Anesthesia/Blood Transfusion Reactions: No Reported Reaction Past Psychological History: No Psychological Hx Reported Additional Psychological History / Comment(s): Patient has fear that he has onset dementia. Smoking Status: Never smoker Past Alcohol Use History: None Reported Additional Past Alcohol Use History / Comment(s): jocelynnet states he was never a heavy drinker- patient stated he has not drink in years. Past Drug Use History: None Reported Additional Drug Use History / Comment(s): Patient states that he hasn't drank alcohol in over 2 years. - Past Family History Father Family Medical History: Hypertension Mother Family Medical History: Cancer Additional Family Medical History / Comment(s): Lung cancer Brother(s) Family Medical History: No Reported History Sister(s) Family Medical History: Hypertension Daughter(s) Family Medical History: No Reported History Medications and Allergies Home Medications Medication Instructions Recorded Confirmed Type Lactulose [Cephulac] 20 gm PO BID ml 11/11/24 02/11/25 Rx Atorvastatin [Lipitor] 40 mg PO HS #30 tablet 11/15/24 02/11/25 Rx Docusate [Colace] 100 mg PO BID PRN 02/11/25 02/11/25 History Famotidine [Pepcid] 40 mg PO DAILY 02/11/25 02/11/25 History Folic Acid 0.8 mg PO DAILY 02/11/25 02/11/25 History Furosemide [Lasix] 40 mg PO DAILY 02/11/25 02/11/25 History Losartan Potassium [Cozaar] 100 mg PO DAILY 02/11/25 02/11/25 History Metoprolol Succinate (ER) [Toprol 50 mg PO DAILY 02/11/25 02/11/25 History XL] Montelukast Sodium 10 mg PO HS 02/11/25 02/11/25 History Potassium Chloride ER [K-Dur 20] 20 meq PO DAILY 02/11/25 02/11/25 History Pregabalin [Lyrica] 150 mg PO BID 02/11/25 02/11/25 History oxyCODONE-APAP 10-325MG [Percocet 1 tab PO Q6H PRN 02/11/25 02/11/25 History 10-325 mg] traZODone HCL [Desyrel] 50 mg PO HS PRN 02/11/25 02/11/25 History Allergies Allergy/AdvReac Type Severity Reaction Status Date / Time No Known Allergies Allergy Verified 02/11/25 09:46 Physical Exam Vitals: Vital Signs Temp Pulse Resp BP Pulse Ox 02/14/25 08:55 16 02/14/25 07:00 97.4 F L 103 H 16 132/70 92 L 02/14/25 02:25 97.7 F 64 16 126/67 100 02/13/25 20:59 68 02/13/25 20:00 98.1 F 68 17 108/68 100 02/13/25 14:00 16 02/13/25 13:55 97.8 F 72 17 109/65 100 Intake and Output 02/13/25 02/14/25 02/14/25 22:59 06:59 14:59 Intake Total 221 Output Total 700 1000 750 Balance -700 -1000 -529 Intake: Oral 221 Output: Urine 700 1000 750 Other: Voiding Method Urinal Urinal # Bowel Movements 1 Results CBC & Chem 7: 02/12/25 11:06 02/13/25 04:22 Assessment and Plan (1) Stage II pressure ulcer of right buttock Current Visit: Yes Status: Acute Code(s): L89.312 - PRESSURE ULCER OF RIGHT BUTTOCK, STAGE 2 SNOMED Code(s): 00881460138248 (2) Stage I pressure ulcer of left buttock Current Visit: Yes Status: Acute Code(s): L89.321 - PRESSURE ULCER OF LEFT BUTTOCK, STAGE 1 SNOMED Code(s): 30544747158066 (3) Non-pressure chronic ulcer of right calf with fat layer exposed Current Visit: Yes Status: Acute Code(s): L97.212 - NON-PRESSURE CHRONIC ULCER OF RIGHT CALF W FAT LAYER EXPOSED SNOMED Code(s): 50482267717207836
[2025-02-14] MEDS ORDERED: oxyCODONE-APAP 7.5-325MG 1 EACH TAB PO PRN (15:05)
[2025-02-14] MEDS: oxyCODONE-APAP 10-325MG 1 EACH TAB PO PRN (15:38)
[2025-02-14] MEDS: PREGABALIN 100 MG CAP PO SCH (20:24)
[2025-02-14] MEDS: LACTULOSE 20 GM/30 ML CUP PO PRN (22:54)
--- NOTE | 2025-02-15 09:01 | P.PN ---
Subjective Progress Note Date: 02/14/25 Patient is a 74-year-old male with known history of dementia which appears to be moderate to severe baseline alert oriented x 2 was brought in with concerns of confusion and patient was trying to drink water spilling more. Patient is from [facility]. It appears patient was brought in here because of probably the level of care he will need. I am unable to get any history from the patient as patient falls asleep pretty quickly after answering 1 question but is always arousable. Patient does not have any fever does have mild leukocytosis I do not have any chest x-ray but urinalysis did not show any significant abnormality patient does not have any cough. Patient creatinine although is elevated to 1.24 baseline is within normal limits. Patient is on Lasix at home patient does not have any history of congestive heart failure had a normal ejection fraction in the past. I believe patient is on Lasix for peripheral edema. Patient is also on some medications that can cause confusion acutely which include trazodone, Percocet, Lyrica patient does have peripheral neuropathy patient does get up and asked for pain medication and goes back to sleep quickly. Patient does have mildly elevated potassium of 5.4. Patient is on losartan. CT of the head did not show any acute pathology. 02/12/2025 Patient was having significant diarrhea lactulose was discontinued, C. difficile was negative. Patient was started on Lomotil. I held his Percocet but this was restarted last night by covering physician as patient was recs worsening for this medication. Awaiting physical therapy and Occupational Therapy evaluation probably will need placement in subacute rehabilitation. Patient is at his baseline alert oriented x 2-3. I will cut down the dose of Percocet to half. 02/13/2025 Patient is evaluated in follow-up in the medical floor. He is frustrated as his pain medication has been decreased to every 12 hours. It is explained that he was found unresponsive and follow-up was due to a medication effect he states that he has been on his pain medication for many years. He is requesting that his pain medication be increased back to every 6 hours. He was evaluated PT with recommendation of subacute rehab and patient is open to this, currently pending social work to follow-up with the patient. 02/14/2025 Patient is seen in follow-up continues to report significant pain and patient does take chronic pain medications outpatient will adjust slightly and also discussed slightly increasing Lyrica that he takes twice daily. Patient with some pressure ulcers noted on the buttock and upper thigh areas present on admission wound care has been consulted recommending to continue with Medihoney and dressings with frequent position changes and offloading. Patient is significantly weak and evaluated by physical therapy recommending rehab and patient is agreeable. Social work is following awaiting insurance authorization and accepting ECF. Patient is afebrile with no reports of chest pain or shortness of breath. Patient has been tolerating diet with no reported nausea or vomiting noted. Continue bowel regimen. Review of Systems Constitutional: Denied any fatigue denied any fever. Cardio vascular: denied any chest pain, palpitations Gastrointestinal: denied any nausea, vomiting, diarrhea Pulmonary: Denied any shortness of breath cough Neurologic denied any new focal deficits reports of being generally weak and continued lower back pain All inpatient medications were reviewed and appropriate changes in these medications as dictated in the interval history and assessment and plan. PHYSICAL EXAMINATION: GENERAL: The patient is alert and oriented x3, not in any acute distress. Well developed, well nourished. Elderly appearing, obese HEENT: Pupils are round and equally reacting to light. EOMI. No scleral icterus. No conjunctival pallor. Normocephalic, atraumatic. No pharyngeal erythema. No thyromegaly. CARDIOVASCULAR: S1 and S2 present. No murmurs, rubs, or gallops. PULMONARY: Chest is clear to auscultation, no wheezing or crackles. ABDOMEN: Soft, nontender, nondistended, normoactive bowel sounds. No palpable organomegaly. MUSCULOSKELETAL: No joint swelling or deformity. EXTREMITIES: No cyanosis, clubbing, or pedal edema. NEUROLOGICAL: Significantly limited but moving all 4 limbs does not appear to be have any focal weaknesses SKIN: No rashes. Stage II pressure ulcer on the right buttocks and thigh, present on admission, nonhealing ulceration with fat layer exposure of the right lower extremity, chronic Assessment: -Acute altered mental status, multifactorial due to advancing dementia and medications may have contributed to his toxic encephalopathy. 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 Blood pressure in the 100-120s systolic today. Continue holding losartan. - Hyperlipidemia -Obesity with a BMI of 36.9 -Stage II pressure ulcer on the right buttocks and thigh, present on admission -Nonhealing ulceration with fat layer exposure of the right lower extremity, chr onic - History of chronic alcohol dependence presently not alcoholic - 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 for which patient is on Lyrica which will be resumed DVT prophylaxis: Subcutaneous heparin 3 times a day 5000 units GI prophylaxis Full code Plan: Increase percocet every 6 hours as patient's primary care has him on currently. PT/OT recommending [facility] and pending social work to follow up. Currently awaiting accepting ECF and patient will also require insurance authorization Wound care consulted and appreciate input and recommendations recommending Medihoney and offloading with OPTi foam to the right buttock and thigh Follow-up on repeat labs and replace electrolytes per protocol, monitor kidney functions Discharge planning pending ECF acceptance The impression and plan of care has been dictated by Lilian Rasmussen, Nurse Practitioner as directed. Dr. Sofi MD I have performed a history and examination and MDM of this patient, discussed the same with the dictator, and agree with the dictator's assessment and plan as written ,documented as a scribe. Based on total visit time, I have performed more than 50% of the visit. Objective - Vital Signs Vital signs: Vital Signs Temp 98.0 F 02/15/25 07:00 Pulse 69 02/15/25 07:00 Resp 17 02/15/25 07:53 BP 125/67 02/15/25 07:00 Pulse Ox 97 02/15/25 07:00 FiO2 Intake & Output 02/14/25 02/15/25 02/15/25 18:59 06:59 18:59 Intake Total 459 Output Total 750 600 Balance -291 -600 Intake: Oral 459 Output: Urine 750 600 Other: Voiding Method Urinal Urinal # Voids 2 - Labs CBC & Chem 7: 02/12/25 11:06 02/13/25 04:22
--- NOTE | 2025-02-16 06:43 | P.PN ---
Subjective Progress Note Date: 02/15/25 Patient is a 74-year-old male with known history of dementia which appears to be moderate to severe baseline alert oriented x 2 was brought in with concerns of confusion and patient was trying to drink water spilling more. Patient is from [facility]. It appears patient was brought in here because of probably the level of care he will need. I am unable to get any history from the patient as patient falls asleep pretty quickly after answering 1 question but is always arousable. Patient does not have any fever does have mild leukocytosis I do not have any chest x-ray but urinalysis did not show any significant abnormality patient does not have any cough. Patient creatinine although is elevated to 1.24 baseline is within normal limits. Patient is on Lasix at home patient does not have any history of congestive heart failure had a normal ejection fraction in the past. I believe patient is on Lasix for peripheral edema. Patient is also on some medications that can cause confusion acutely which include trazodone, Percocet, Lyrica patient does have peripheral neuropathy patient does get up and asked for pain medication and goes back to sleep quickly. Patient does have mildly elevated potassium of 5.4. Patient is on losartan. CT of the head did not show any acute pathology. 02/12/2025 Patient was having significant diarrhea lactulose was discontinued, C. difficile was negative. Patient was started on Lomotil. I held his Percocet but this was restarted last night by covering physician as patient was recs worsening for this medication. Awaiting physical therapy and Occupational Therapy evaluation probably will need placement in subacute rehabilitation. Patient is at his baseline alert oriented x 2-3. I will cut down the dose of Percocet to half. 02/13/2025 Patient is evaluated in follow-up in the medical floor. He is frustrated as his pain medication has been decreased to every 12 hours. It is explained that he was found unresponsive and follow-up was due to a medication effect he states that he has been on his pain medication for many years. He is requesting that his pain medication be increased back to every 6 hours. He was evaluated PT with recommendation of subacute rehab and patient is open to this, currently pending social work to follow-up with the patient. 02/14/2025 Patient is seen in follow-up continues to report significant pain and patient does take chronic pain medications outpatient will adjust slightly and also discussed slightly increasing Lyrica that he takes twice daily. Patient with some pressure ulcers noted on the buttock and upper thigh areas present on admission wound care has been consulted recommending to continue with Medihoney and dressings with frequent position changes and offloading. Patient is significantly weak and evaluated by physical therapy recommending rehab and patient is agreeable. Social work is following awaiting insurance authorization and accepting ECF. Patient is afebrile with no reports of chest pain or shortness of breath. Patient has been tolerating diet with no reported nausea or vomiting noted. Continue bowel regimen. 02/15/2025 Patient is seen this morning continues to be complaining of chronic pain and per nursing staff continues to be frustrated that his oxycodones are not every 4 hours. Expressed the importance of too much pain medication causing altered mentation which brought him here for admission and he reports that he had been on this before. Verified with pharmacy that he is now on every 6 hours. Will continue this regimen and also adjusted his Lyrica slightly. Patient is awaiting ECF acceptance and insurance authorization for continued weakness. Continue local wound care to bilateral buttock and thigh and will need outpatient follow-up with the wound care center. Encouraged increase activity as tolerated. Review of Systems Constitutional: Denied any fatigue denied any fever. Cardio vascular: denied any chest pain, palpitations Gastrointestinal: denied any nausea, vomiting, diarrhea Pulmonary: Denied any shortness of breath cough Neurologic denied any new focal deficits reports of being generally weak and continued lower back pain All inpatient medications were reviewed and appropriate changes in these medications as dictated in the interval history and assessment and plan. PHYSICAL EXAMINATION: GENERAL: The patient is alert and oriented x3, not in any acute distress. Well developed, well nourished. Elderly appearing, obese HEENT: Pupils are round and equally reacting to light. EOMI. No scleral icterus. No conjunctival pallor. Normocephalic, atraumatic. No pharyngeal erythema. No thyromegaly. CARDIOVASCULAR: S1 and S2 present. No murmurs, rubs, or gallops. PULMONARY: Chest is clear to auscultation, no wheezing or crackles. ABDOMEN: Soft, nontender, nondistended, normoactive bowel sounds. No palpable organomegaly. MUSCULOSKELETAL: No joint swelling or deformity. EXTREMITIES: No cyanosis, clubbing, or pedal edema. NEUROLOGICAL: Significantly limited but moving all 4 limbs does not appear to be have any focal weaknesses SKIN: No rashes. Stage II pressure ulcer on the right buttocks and thigh, present on admission, nonhealing ulceration with fat layer exposure of the right lower extremity, chronic, no surrounding redness or drainage Assessment: -Acute altered mental status, multifactorial due to advancing dementia and medications may have contributed to his toxic encephalopathy. Improved and at baseline - Moderate to severe vascular dementia - Generalized weakness - Mild acute renal failure secondary to diuretics: Diuretics will be held at this time, improving - Hypertension patient blood pressure is elevated still holding his losartan because of hyperkalemia and acute renal failure. Blood pressure in the 100-120s systolic today. Continue holding losartan. 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 Adjusted Lyrica slightly and recommend following with primary care provider outpatient and/or pain management to discuss adjusting any further PT/OT recommending [facility] and pending social work to follow up. Currently awaiting accepting ECF and patient will also require insurance authorization Wound care evaluated recommending Medihoney and offloading with OPTi foam to the right buttock and thigh. Continue outpatient follow-up with the wound care center Encourage increase activity as tolerated Discharge planning pending ECF acceptance The impression and plan of care has been dictated as a scribe by Lilian Rasmussen, Nurse Practitioner as directed. Dr. Sofi MD I have performed a history and examination and MDM of this patient, discussed the same with the dictator, and agree with the dictator's assessment and plan as written ,documented as a scribe. Based on total visit time, I have performed more than 50% of the visit. Objective - Vital Signs Vital signs: Vital Signs Temp 98.0 F 02/15/25 07:00 Pulse 69 02/15/25 07:00 Resp 17 02/15/25 07:53 BP 125/67 02/15/25 07:00 Pulse Ox 97 02/15/25 07:00 FiO2 Intake & Output 02/14/25 02/15/25 02/15/25 18:59 06:59 18:59 Intake Total 459 Output Total 750 600 Balance -291 -600 Intake: Oral 459 Output: Urine 750 600 Other: Voiding Method Urinal Urinal # Voids 2 - Labs CBC & Chem 7: 02/12/25 11:06 02/13/25 04:22
--- NOTE | 2025-02-16 22:36 | P.PN ---
Subjective Progress Note Date: 02/16/25 Patient is a 74-year-old male with known history of dementia which appears to be moderate to severe baseline alert oriented x 2 was brought in with concerns of confusion and patient was trying to drink water spilling more. Patient is from [facility]. It appears patient was brought in here because of probably the level of care he will need. I am unable to get any history from the patient as patient falls asleep pretty quickly after answering 1 question but is always arousable. Patient does not have any fever does have mild leukocytosis I do not have any chest x-ray but urinalysis did not show any significant abnormality patient does not have any cough. Patient creatinine although is elevated to 1.24 baseline is within normal limits. Patient is on Lasix at home patient does not have any history of congestive heart failure had a normal ejection fraction in the past. I believe patient is on Lasix for peripheral edema. Patient is also on some medications that can cause confusion acutely which include trazodone, Percocet, Lyrica patient does have peripheral neuropathy patient does get up and asked for pain medication and goes back to sleep quickly. Patient does have mildly elevated potassium of 5.4. Patient is on losartan. CT of the head did not show any acute pathology. 02/12/2025 Patient was having significant diarrhea lactulose was discontinued, C. difficile was negative. Patient was started on Lomotil. I held his Percocet but this was restarted last night by covering physician as patient was recs worsening for this medication. Awaiting physical therapy and Occupational Therapy evaluation probably will need placement in subacute rehabilitation. Patient is at his baseline alert oriented x 2-3. I will cut down the dose of Percocet to half. 02/13/2025 Patient is evaluated in follow-up in the medical floor. He is frustrated as his pain medication has been decreased to every 12 hours. It is explained that he was found unresponsive and follow-up was due to a medication effect he states that he has been on his pain medication for many years. He is requesting that his pain medication be increased back to every 6 hours. He was evaluated PT with recommendation of subacute rehab and patient is open to this, currently pending social work to follow-up with the patient. 02/14/2025 Patient is seen in follow-up continues to report significant pain and patient does take chronic pain medications outpatient will adjust slightly and also discussed slightly increasing Lyrica that he takes twice daily. Patient with some pressure ulcers noted on the buttock and upper thigh areas present on admission wound care has been consulted recommending to continue with Medihoney and dressings with frequent position changes and offloading. Patient is significantly weak and evaluated by physical therapy recommending rehab and patient is agreeable. Social work is following awaiting insurance authorization and accepting ECF. Patient is afebrile with no reports of chest pain or shortness of breath. Patient has been tolerating diet with no reported nausea or vomiting noted. Continue bowel regimen. 02/15/2025 Patient is seen this morning continues to be complaining of chronic pain and per nursing staff continues to be frustrated that his oxycodones are not every 4 hours. Expressed the importance of too much pain medication causing altered mentation which brought him here for admission and he reports that he had been on this before. Verified with pharmacy that he is now on every 6 hours. Will continue this regimen and also adjusted his Lyrica slightly. Patient is awaiting ECF acceptance and insurance authorization for continued weakness. Continue local wound care to bilateral buttock and thigh and will need outpatient follow-up with the wound care center. Encouraged increase activity as tolerated. 02/16/2025 Patient is seen and evaluated in follow-up today continues to report severe pain although will continue with current pain regimen and to discuss further with his primary care provider regarding increasing the dosing times. Patient is continued on local wound care with Medihoney and will need outpatient follow-up with the wound care center. Patient is afebrile no reports of chest pain or shortness of breath. Patient has been tolerating diet will continue current treatment plan while awaiting acceptance at an ECF and insurance authorization. Will follow-up with social work Monday morning regarding discharge. Review of Systems Constitutional: Denied any fatigue denied any fever. Cardio vascular: denied any chest pain, palpitations Gastrointestinal: denied any nausea, vomiting, diarrhea Pulmonary: Denied any shortness of breath cough Neurologic denied any new focal deficits reports of being generally weak and continued lower back pain All inpatient medications were reviewed and appropriate changes in these medications as dictated in the interval history and assessment and plan. PHYSICAL EXAMINATION: GENERAL: The patient is alert and oriented x3, not in any acute distress. Well developed, well nourished. Elderly appearing, obese HEENT: Pupils are round and equally reacting to light. EOMI. No scleral icterus. No conjunctival pallor. Normocephalic, atraumatic. No pharyngeal erythema. No thyromegaly. CARDIOVASCULAR: S1 and S2 present. No murmurs, rubs, or gallops. PULMONARY: Chest is clear to auscultation, no wheezing or crackles. ABDOMEN: Soft, nontender, nondistended, normoactive bowel sounds. No palpable organomegaly. MUSCULOSKELETAL: No joint swelling or deformity. EXTREMITIES: No cyanosis, clubbing, or pedal edema. NEUROLOGICAL: Significantly limited but moving all 4 limbs does not appear to be have any focal weaknesses SKIN: No rashes. Stage II pressure ulcer on the right buttocks and thigh, present on admission, nonhealing ulceration with fat layer exposure of the right lower extremity, chronic, no surrounding redness or drainage Assessment: -Acute altered mental status, multifactorial due to advancing dementia and medications may have contributed to his toxic encephalopathy. Improved and at baseline - Moderate to severe vascular dementia - Generalized weakness - Mild acute renal failure secondary to diuretics: Diuretics will be held at this time, improving - Hypertension patient blood pressure is elevated still holding his losartan because of hyperkalemia and acute renal failure. Blood pressure in the 100-120s systolic today. Continue holding losartan. 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 Adjusted Lyrica slightly and recommend following with primary care provider outpatient and/or pain management to discuss adjusting any further PT/OT recommending [facility] and pending social work to follow up. Currently awaiting accepting ECF and patient will also require insurance authorization Wound care evaluated recommending Medihoney and offloading with OPTi foam to the right buttock and thigh. Continue outpatient follow-up with the wound care center Encourage increase activity as tolerated Discharge planning pending ECF acceptance. To discuss further with social work regarding discharge planning possibly in the next 24 hours The impression and plan of care has been dictated as a scribe by Lilian Rasmussen, Nurse Practitioner as directed. Dr. Sofi MD I have performed a history and examination and MDM of this patient, discussed the same with the dictator, and agree with the dictator's assessment and plan as written ,documented as a scribe. Based on total visit time, I have performed more than 50% of the visit. Objective - Vital Signs Vital signs: Vital Signs Temp 97.6 F 02/16/25 00:38 Pulse 62 02/16/25 00:38 Resp 18 02/16/25 00:38 BP 118/67 02/16/25 00:38 Pulse Ox 100 02/16/25 00:38 FiO2 Intake & Output 02/15/25 02/15/25 02/16/25 06:59 18:59 06:59 Intake Total 120 222 Output Total 600 700 Balance -600 120 -478 Intake: Oral 120 222 Output: Urine 600 700 Other: Voiding Method Urinal # Voids 2 2 - Labs CBC & Chem 7: 02/12/25 11:06 02/13/25 04:22
[2025-02-16] MEDS: CYCLOBENZAPRINE 10 MG TAB PO PRN (23:59)
[2025-02-17] MEDS: BENZOCAINE 20% HEMORRHOIDAL OINT 28GM RECTAL PRN
[2025-02-17 08:02] LABS: Basophils # (A) 0.03 X 10*3/uL (0.00-0.10); Basophils % (A) 0.4 %; Eosinophils # (A) 0.32 X 10*3/uL (0.04-0.35); Eosinophils % (A) 4.3 %; Lymphocytes # (A) 2.65 X 10*3/uL (0.90-5.00); Lymphocytes % (A) 35.7 %; MCH 28.9 pg (27.0-32.0); MCV 93.2 FL (80.0-97.0); Mean Platelet Volume 12.4 FL (9.5-12.2); Monocytes # (A) 0.96 X 10*3/uL (0.20-1.00); Monocytes % (A) 12.9 %; NRBC Per 100 WBC 0 X 10*3/uL (0.00-0.01); Neutrophils # (A) 3.44 X 10*3/uL (1.80-7.70); Neutrophils % (A) 46.4 %; Platelet Count 151 X 10*3/uL (140-440); RBC 3.11 X 10*6/uL (4.40-5.60); RDW 15.9 % (11.5-14.5); WBC 7.42 X 10*3/uL (4.50-10.00)
[2025-02-17 08:09] LABS: BUN/Creat Ratio 33.62 Ratio (12.00-20.00); Blood Urea Nitrogen 26.9 mg/dL (9.0-27.0); Calcium 8.7 mg/dL (8.7-10.3); Carbon Dioxide 25.7 mmol/L (21.6-31.8); Chloride 106 mmol/L (96-109); Glucose 97 mg/dL (70-110); Magnesium 2.2 mg/dL (1.5-2.4); Potassium 4.2 mmol/L (3.5-5.5); Sodium 140 mmol/L (135-145)
[2025-02-17] MEDS: polyethylene glycoL 3350 17 GM POWD.PACK PO SCH (11:15)
[2025-02-17] MEDS: oxyCODONE-APAP 10-325MG 1 EACH TAB PO SCH (11:16)
--- NOTE | 2025-02-17 11:43 | P.PN ---
Subjective Progress Note Date: 02/17/25 HISTORY OF PRESENT ILLNESS: Patient is a 74-year-old male with known history of dementia which appears to be moderate to severe baseline alert oriented x 2 was brought in with concerns of confusion and patient was trying to drink water spilling more. Patient is from [facility]. It appears patient was brought in here because of probably the level of care he will need. I am unable to get any history from the patient as patient falls asleep pretty quickly after answering 1 question but is always arousable. Patient does not have any fever does have mild leukocytosis I do not have any chest x-ray but urinalysis did not show any significant abnormality patient does not have any cough. Patient creatinine although is elevated to 1.24 baseline is within normal limits. Patient is on Lasix at home patient does not have any history of congestive heart failure had a normal ejection fraction in the past. I believe patient is on Lasix for peripheral edema. Patient is also on some medications that can cause confusion acutely which include trazodone, Percocet, Lyrica patient does have peripheral neuropathy patient does get up and asked for pain medication and goes back to sleep quickly. Patient does have mildly elevated potassium of 5.4. Patient is on losartan. CT of the head did not show any acute pathology. 02/12/2025 Patient was having significant diarrhea lactulose was discontinued, C. difficile was negative. Patient was started on Lomotil. I held his Percocet but this was restarted last night by covering physician as patient was recs worsening for this medication. Awaiting physical therapy and Occupational Therapy evaluation probably will need placement in subacute rehabilitation. Patient is at his baseline alert oriented x 2-3. I will cut down the dose of Percocet to half. 02/13/2025 Patient is evaluated in follow-up in the medical floor. He is frustrated as his pain medication has been decreased to every 12 hours. It is explained that he was found unresponsive and follow-up was due to a medication effect he states that he has been on his pain medication for many years. He is requesting that his pain medication be increased back to every 6 hours. He was evaluated PT with recommendation of subacute rehab and patient is open to this, currently pending social work to follow-up with the patient. 02/14/2025 Patient is seen in follow-up continues to report significant pain and patient does take chronic pain medications outpatient will adjust slightly and also discussed slightly increasing Lyrica that he takes twice daily. Patient with some pressure ulcers noted on the buttock and upper thigh areas present on admission wound care has been consulted recommending to continue with Medihoney and dressings with frequent position changes and offloading. Patient is significantly weak and evaluated by physical therapy recommending rehab and patient is agreeable. Social work is following awaiting insurance authorization and accepting ECF. Patient is afebrile with no reports of chest pain or shortness of breath. Patient has been tolerating diet with no reported nausea or vomiting noted. Continue bowel regimen. 02/15/2025 Patient is seen this morning continues to be complaining of chronic pain and per nursing staff continues to be frustrated that his oxycodones are not every 4 hours. Expressed the importance of too much pain medication causing altered mentation which brought him here for admission and he reports that he had been on this before. Verified with pharmacy that he is now on every 6 hours. Will continue this regimen and also adjusted his Lyrica slightly. Patient is awaiting ECF acceptance and insurance authorization for continued weakness. Continue local wound care to bilateral buttock and thigh and will need outpatien t follow-up with the wound care center. Encouraged increase activity as tolerated. 02/16/2025 Patient is seen and evaluated in follow-up today continues to report severe pain although will continue with current pain regimen and to discuss further with his primary care provider regarding increasing the dosing times. Patient is continued on local wound care with Medihoney and will need outpatient follow-up with the wound care center. Patient is afebrile no reports of chest pain or shortness of breath. Patient has been tolerating diet will continue current treatment plan while awaiting acceptance at an EC and insurance authorization. Will follow-up with social work Monday morning regarding discharge. 02/17: Patient is sitting up in the chair in no apparent distress, he is feeling tremendous amount of pain in his back as well as his leg, he stated that the oxycodone every 6 hours as needed is not enough for him, we will switch him to every 4 hours [id number], continue current bowel care, add MiraLAX 17 g in 8 ounce of water once every day continue lactulose continue Colace, continue to increase activity, sexual assault social worker for discharge planning likely subacute rehabilitation in the next 24 hours REVIEW OF SYSTEMS: Constitutional: No documented fever, no chills, no night sweats. No weight change. No weakness, fatigue or lethargy. No daytime sleepiness. EENT: No headache. No blurred vision or double vision, no loss of vision. No loss of Hearing, no ringing in the ears, no dizziness. No nasal drainage or congestion. No epistaxis. No sore throat. Lungs: No shortness of breath, no cough, no sputum production. No wheezing. Reports dyspnea with activity. Cardiovascular: No chest pain, no lower extremity edema. No palpitations. No paroxysmal nocturnal dyspnea. No orthopnea. No lightheadedness or dizziness. No syncopal episodes. Abdominal: Reports no abdominal pain. No nausea, vomiting. No diarrhea. Positive for constipation. No bloody or tarry stools reports loss of appetite. Genitourinary: No dysuria, increased frequency, urgency. No urinary retention. Musculoskeletal: No myalgias. Positive for muscle weakness, positive gait dysfunction, no frequent falls. Positive back pain. Positive neck pain. Integumentary: No wounds, no lesions. No rash or pruritus. No unusual bruising. No change in hair or nails. Neurologic: No aphasia. No facial droop. No change in mentation. No head injury. No headache. No paralysis. No paresthesia. Psychiatric: Mild depression. No anxiety. No mood swings. Endocrine: No abnormal blood sugars. No weight change. PHYSICAL EXAMINATION: General: 74-year-old male sitting up in the chair in no distress HEENT: Head is atraumatic, normocephalic, pupils were equal round reactive to light and recommendation, extraocular muscle movement were intact, sclera nonicteric, conjunctivae were pale, mucous membranes of the mouth are somewhat dry. Neck: Supple, no JVP, normal carotid upstroke bilaterally, no lymphadenopathy. Chest: Decreased breath sounds at the bases, few rhonchi, no expiratory wheezes, no chest wall tenderness, no intercostal retractions. Heart: First heart sound is normal, second heart sounds normal, there are systolic ejection murmur 2 over systolic in the left sternal border Abdomen: Soft, nontender, nondistended, positive bowel sounds. Extremities: There is no edema no calf tenderness DP +2 bilaterally, there is a stage II nonpressure ulcer to the right lower extremity likely venous ulceration with a clean base. Neurologic examination: Patient is awake alert and oriented x3, cranial nerves II-12 appear grossly intact, muscle power were 4 out of 5 in upper extremities and 3 out of 5 in bilateral lower extremities, deep tendon reflexes normal bilaterally. ASSESSMENT AND PLAN: 1. Acute altered mental status, multifactorial due to advancing dementia and medications may have contributed to his toxic encephalopathy. Improved and patient appears to be back to his baseline 2. Moderate to severe vascular dementia. Patient is not taking any medication at this point in time, he used to be on Aricept and Namenda that he took himself off of it. 3. Generalized weakness this is his baseline, patient will require a wheelchair on regular basis, and he only uses a walker to pivot from wheelchair to bathroom and vice versa 4. Acute kidney injury due to acute tubular necrosis due to aggressive diuresis. Has resolved. Recheck a CMP tomorrow morning 5. Hypertension and hypertensive cardiovascular disease. Continue patient on metoprolol 50 mg once every day as well as losartan 50 mg once every day monitor the patient blood pressure very closely 6. mixed hyperlipidemia. 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 10.History of chronic alcohol dependence presently not alcoholic 11. Bilateral lower extremity neuropathy. Continue patient on pregabalin 200 mg orally twice every day 12.DVT prophylaxis. Will continue heparin 5000 units subcutaneously every 8 hours 13.GI prophylaxis. We will continue with Protonix 40 mg once every day 14. Transfer to [facility] tomorrow morning Objective - Vital Signs Vital signs: Vital Signs Temp 97.8 F 02/17/25 07:18 Pulse 60 02/17/25 07:18 Resp 17 02/17/25 07:18 BP 88/45 02/17/25 07:18 Pulse Ox 98 02/17/25 07:18 FiO2 Intake & Output 02/16/25 02/17/25 02/17/25 18:59 06:59 18:59 Output Total 1100 200 Balance -1100 -200 Output: Urine 1100 200 Other: Voiding Method Toilet Urinal # Voids 1 # Bowel Movements 1 - Labs CBC & Chem 7: 02/17/25 04:35 02/17/25 04:35 Labs: Abnormal Lab Results - Last 24 Hours (Table) 02/17/25 02/17/25 Range/Units 04:35 04:35 RBC 3.11 L (4.40-5.60) X 10*6/uL Hgb 9.0 L (13.0-17.0) g/dL Hct 29.0 L (39.6-50.0) % MCHC 31.0 L (32.0-37.0) g/dL RDW 15.9 H (11.5-14.5) % MPV 12.4 H (9.5-12.2) FL BUN/Creatinine Ratio 33.62 H (12.00-20.00) Ratio
[2025-02-17] MEDS: DOCUSATE 100 MG CAP PO PRN (21:15)
[2025-02-18 10:41] LABS: ALT 11 U/L (10-49); AST 16 U/L (14-35); Albumin 3.7 g/dL (3.8-4.9); Albumin/Globulin Ratio 1.76 Ratio (1.60-3.17); Alkaline Phosphatase 74 U/L (41-126); Blood Urea Nitrogen 25.7 mg/dL (9.0-27.0); Carbon Dioxide 25.4 mmol/L (21.6-31.8); Chloride 103 mmol/L (96-109); Globulin 2.1 g/dL (1.6-3.3); Glucose 103 mg/dL (70-110); Potassium 4.7 mmol/L (3.5-5.5); Sodium 138 mmol/L (135-145); Total Bilirubin 0.2 mg/dL (0.3-1.2); Total Protein 5.8 g/dL (6.2-8.2)
[2025-02-18 11:16] LABS: Basophils # (A) 0.05 X 10*3/uL (0.00-0.10); Basophils % (A) 0.8 %; Eosinophils # (A) 0.29 X 10*3/uL (0.04-0.35); Eosinophils % (A) 4.5 %; HCT 30.8 % (39.6-50.0); HGB 9.6 g/dL (13.0-17.0); Lymphocytes # (A) 2.35 X 10*3/uL (0.90-5.00); Lymphocytes % (A) 36.5 %; MCH 29.7 pg (27.0-32.0); MCHC 31.2 g/dL (32.0-37.0); MCV 95.4 FL (80.0-97.0); Mean Platelet Volume 10.4 FL (9.5-12.2); Monocytes # (A) 0.88 X 10*3/uL (0.20-1.00); Monocytes % (A) 13.7 %; NRBC Per 100 WBC 0 X 10*3/uL (0.00-0.01); Neutrophils # (A) 2.83 X 10*3/uL (1.80-7.70); Platelet Count 221 X 10*3/uL (140-440); RBC 3.23 X 10*6/uL (4.40-5.60); WBC 6.43 X 10*3/uL (4.50-10.00)
--- NOTE | 2025-02-18 13:24 | P.PN ---
Subjective Progress Note Date: 02/18/25 HISTORY OF PRESENT ILLNESS: Patient is a 74-year-old male with known history of dementia which appears to be moderate to severe baseline alert oriented x 2 was brought in with concerns of confusion and patient was trying to drink water spilling more. Patient is from [employer]. It appears patient was brought in here because of probably the level of care he will need. I am unable to get any history from the patient as patient falls asleep pretty quickly after answering 1 question but is always arousable. Patient does not have any fever does have mild leukocytosis I do not have any chest x-ray but urinalysis did not show any significant abnormality patient does not have any cough. Patient creatinine although is elevated to 1.24 baseline is within normal limits. Patient is on Lasix at home patient does not have any history of congestive heart failure had a normal ejection fraction in the past. I believe patient is on Lasix for peripheral edema. Patient is also on some medications that can cause confusion acutely which include trazodone, Percocet, Lyrica patient does have peripheral neuropathy patient does get up and asked for pain medication and goes back to sleep quickly. Patient does have mildly elevated potassium of 5.4. Patient is on losartan. CT of the head did not show any acute pathology. 02/12/2025 Patient was having significant diarrhea lactulose was discontinued, C. difficile was negative. Patient was started on Lomotil. I held his Percocet but this was restarted last night by covering physician as patient was recs worsening for this medication. Awaiting physical therapy and Occupational Therapy evaluation probably will need placement in subacute rehabilitation. Patient is at his baseline alert oriented x 2-3. I will cut down the dose of Percocet to half. 02/13/2025 Patient is evaluated in follow-up in the medical floor. He is frustrated as his pain medication has been decreased to every 12 hours. It is explained that he was found unresponsive and follow-up was due to a medication effect he states that he has been on his pain medication for many years. He is requesting that his pain medication be increased back to every 6 hours. He was evaluated PT with recommendation of subacute rehab and patient is open to this, currently pending social work to follow-up with the patient. 02/14/2025 Patient is seen in follow-up continues to report significant pain and patient does take chronic pain medications outpatient will adjust slightly and also discussed slightly increasing Lyrica that he takes twice daily. Patient with some pressure ulcers noted on the buttock and upper thigh areas present on admission wound care has been consulted recommending to continue with Medihoney and dressings with frequent position changes and offloading. Patient is significantly weak and evaluated by physical therapy recommending rehab and patient is agreeable. Social work is following awaiting insurance authorization and accepting ECF. Patient is afebrile with no reports of chest pain or shortness of breath. Patient has been tolerating diet with no reported nausea or vomiting noted. Continue bowel regimen. 02/15/2025 Patient is seen this morning continues to be complaining of chronic pain and per nursing staff continues to be frustrated that his oxycodones are not every 4 hours. Expressed the importance of too much pain medication causing altered mentation which brought him here for admission and he reports that he had been on this before. Verified with pharmacy that he is now on every 6 hours. Will continue this regimen and also adjusted his Lyrica slightly. Patient is awaiting ECF acceptance and insurance authorization for continued weakness. Continue local wound care to bilateral buttock and thigh and will need outpatien t follow-up with the wound care center. Encouraged increase activity as tolerated. 02/16/2025 Patient is seen and evaluated in follow-up today continues to report severe pain although will continue with current pain regimen and to discuss further with his primary care provider regarding increasing the dosing times. Patient is continued on local wound care with Medihoney and will need outpatient follow-up with the wound care center. Patient is afebrile no reports of chest pain or shortness of breath. Patient has been tolerating diet will continue current treatment plan while awaiting acceptance at an EC and insurance authorization. Will follow-up with social work Monday morning regarding discharge. 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 He is medically stable at this point in time to be discharged. REVIEW OF SYSTEMS: Constitutional: No documented fever, no chills, no night sweats. No weight severino ge. No weakness, fatigue or lethargy. No daytime sleepiness. EENT: No headache. No blurred vision or double vision, no loss of vision. No loss of Hearing, no ringing in the ears, no dizziness. No nasal drainage or congestion. No epistaxis. No sore throat. Lungs: No shortness of breath, no cough, no sputum production. No wheezing. Reports dyspnea with activity. Cardiovascular: No chest pain, no lower extremity edema. No palpitations. No paroxysmal nocturnal dyspnea. No orthopnea. No lightheadedness or dizziness. No syncopal episodes. Abdominal: Reports no abdominal pain. No nausea, vomiting. No diarrhea. Positive for constipation. No bloody or tarry stools reports loss of appetite. Genitourinary: No dysuria, increased frequency, urgency. No urinary retention. Musculoskeletal: No myalgias. Positive for muscle weakness, positive gait dysfunction, no frequent falls. Positive back pain. Positive neck pain. Integumentary: No wounds, no lesions. No rash or pruritus. No unusual bruising. No change in hair or nails. Neurologic: No aphasia. No facial droop. No change in mentation. No head injury. No headache. No paralysis. No paresthesia. Psychiatric: Mild depression. No anxiety. No mood swings. Endocrine: No abnormal blood sugars. No weight change. PHYSICAL EXAMINATION: General: 74-year-old male sitting up in the chair in no distress HEENT: Head is atraumatic, normocephalic, pupils were equal round reactive to light and recommendation, extraocular muscle movement were intact, sclera nonicteric, conjunctivae were pale, mucous membranes of the mouth are somewhat dry. Neck: Supple, no JVP, normal carotid upstroke bilaterally, no lymphadenopathy. Chest: Decreased breath sounds at the bases, few rhonchi, no expiratory wheezes, no chest wall tenderness, no intercostal retractions. Heart: First heart sound is normal, second heart sounds normal, there are systolic ejection murmur 2 over systolic in the left sternal border Abdomen: Soft, nontender, nondistended, positive bowel sounds. Extremities: There is no edema no calf tenderness DP +2 bilaterally, there is a stage II nonpressure ulcer to the right lower extremity likely venous ulceration with a clean base. Neurologic examination: Patient is awake alert and oriented x3, cranial nerves II-12 appear grossly intact, muscle power were 4 out of 5 in upper extremities and 3 out of 5 in bilateral lower extremities, deep tendon reflexes normal bilaterally. ASSESSMENT AND PLAN: 1. Acute altered mental status, multifactorial due to advancing dementia and medications may have contributed to his toxic encephalopathy. Improved and patient appears to be back to his baseline 2. Moderate to severe vascular dementia. Patient is not taking any medication at this point in time, he used to be on Aricept and Namenda that he took himself off of it. 3. Generalized weakness this is his baseline, patient will require a wheelchair on regular basis, and he only uses a walker to pivot from wheelchair to bathroom and vice versa 4. Acute kidney injury due to acute tubular necrosis due to aggressive diuresis. Has resolved. Recheck a CMP tomorrow morning 5. Hypertension and hypertensive cardiovascular disease. Continue patient on metoprolol 50 mg once every day as well as losartan 50 mg once every day monitor the patient blood pressure very closely 6. mixed hyperlipidemia. 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 10.History of chronic alcohol dependence presently not alcoholic 11. Bilateral lower extremity neuropathy. Continue patient on pregabalin 200 mg orally twice every day 12.DVT prophylaxis. Will continue heparin 5000 units subcutaneously every 8 hours 13.GI prophylaxis. We will continue with Protonix 40 mg once every day 14. Transfer to [facility] today if possible as the patient is medically stable for transfer. Objective - Vital Signs Vital signs: Vital Signs Temp 98.1 F 02/18/25 07:00 Pulse 65 02/18/25 07:00 Resp 17 02/18/25 08:00 BP 148/67 02/18/25 07:00 Pulse Ox 99 02/18/25 07:00 FiO2 Intake & Output 02/17/25 02/18/25 02/18/25 18:59 06:59 18:59 Intake Total 1105 118 Output Total 1000 650 Balance 105 -650 118 Intake: Oral 1105 118 Output: Urine 1000 650 Other: Voiding Method Toilet Toilet Toilet Urinal Urinal Urinal # Voids 1 # Bowel Movements 1 - Labs CBC & Chem 7: 02/18/25 06:24 02/18/25 06:24 Labs: Abnormal Lab Results - Last 24 Hours (Table) 02/18/25 02/18/25 Range/Units 06:24 06:24 RBC 3.23 L (4.40-5.60) X 10*6/uL Hgb 9.6 L (13.0-17.0) g/dL Hct 30.8 L (39.6-50.0) % MCHC 31.2 L (32.0-37.0) g/dL RDW 16.0 H (11.5-14.5) % BUN/Creatinine Ratio 25.70 H (12.00-20.00) Ratio Total Bilirubin 0.2 L (0.3-1.2) mg/dL Total Protein 5.8 L (6.2-8.2) g/dL Albumin 3.7 L (3.8-4.9) g/dL
[2025-02-20 01:05] VITALS: RESP 18
[2025-02-20 08:10] VITALS: BP 129/70; PULSE 71; TEMP 97.5
--- NOTE | 2025-02-20 12:59 | P.PN ---
Subjective Progress Note Date: 02/19/25 HISTORY OF PRESENT ILLNESS: Patient is a 74-year-old male with known history of dementia which appears to be moderate to severe baseline alert oriented x 2 was brought in with concerns of confusion and patient was trying to drink water spilling more. Patient is from [facility]. It appears patient was brought in here because of probably the level of care he will need. I am unable to get any history from the patient as patient falls asleep pretty quickly after answering 1 question but is always arousable. Patient does not have any fever does have mild leukocytosis I do not have any chest x-ray but urinalysis did not show any significant abnormality patient does not have any cough. Patient creatinine although is elevated to 1.24 baseline is within normal limits. Patient is on Lasix at home patient does not have any history of congestive heart failure had a normal ejection fraction in the past. I believe patient is on Lasix for peripheral edema. Patient is also on some medications that can cause confusion acutely which include trazodone, Percocet, Lyrica patient does have peripheral neuropathy patient does get up and asked for pain medication and goes back to sleep quickly. Patient does have mildly elevated potassium of 5.4. Patient is on losartan. CT of the head did not show any acute pathology. 02/12/2025 Patient was having significant diarrhea lactulose was discontinued, C. difficile was negative. Patient was started on Lomotil. I held his Percocet but this was restarted last night by covering physician as patient was recs worsening for this medication. Awaiting physical therapy and Occupational Therapy evaluation probably will need placement in subacute rehabilitation. Patient is at his baseline alert oriented x 2-3. I will cut down the dose of Percocet to half. 02/13/2025 Patient is evaluated in follow-up in the medical floor. He is frustrated as his pain medication has been decreased to every 12 hours. It is explained that he was found unresponsive and follow-up was due to a medication effect he states that he has been on his pain medication for many years. He is requesting that his pain medication be increased back to every 6 hours. He was evaluated PT with recommendation of subacute rehab and patient is open to this, currently pending social work to follow-up with the patient. 02/14/2025 Patient is seen in follow-up continues to report significant pain and patient does take chronic pain medications outpatient will adjust slightly and also discussed slightly increasing Lyrica that he takes twice daily. Patient with some pressure ulcers noted on the buttock and upper thigh areas present on admission wound care has been consulted recommending to continue with Medihoney and dressings with frequent position changes and offloading. Patient is significantly weak and evaluated by physical therapy recommending rehab and patient is agreeable. Social work is following awaiting insurance authorization and accepting ECF. Patient is afebrile with no reports of chest pain or shortness of breath. Patient has been tolerating diet with no reported nausea or vomiting noted. Continue bowel regimen. 02/15/2025 Patient is seen this morning continues to be complaining of chronic pain and per nursing staff continues to be frustrated that his oxycodones are not every 4 hours. Expressed the importance of too much pain medication causing altered mentation which brought him here for admission and he reports that he had been on this before. Verified with pharmacy that he is now on every 6 hours. Will continue this regimen and also adjusted his Lyrica slightly. Patient is awaiting ECF acceptance and insurance authorization for continued weakness. Continue local wound care to bilateral buttock and thigh and will need outpatien t follow-up with the wound care center. Encouraged increase activity as tolerated. 02/16/2025 Patient is seen and evaluated in follow-up today continues to report severe pain although will continue with current pain regimen and to discuss further with his primary care provider regarding increasing the dosing times. Patient is continued on local wound care with Medihoney and will need outpatient follow-up with the wound care center. Patient is afebrile no reports of chest pain or shortness of breath. Patient has been tolerating diet will continue current treatment plan while awaiting acceptance at an EC and insurance authorization. Will follow-up with social work Monday morning regarding discharge. 02/17: Patient is sitting up in the chair in no apparent distress, he is feeling tremendous amount of pain in his back as well as his leg, he stated that the oxycodone every 6 hours as needed is not enough for him, we will switch him to every 4 hours [id number], continue current bowel care, add MiraLAX 17 g in 8 ounce of water once every day continue lactulose continue Colace, continue to increase activity, director social for discharge planning likely subacute rehabilitation in the next 24 hours 610: Patient is sitting up in a wheelchair, he has no chest pain, shortness of breath, he did have a small bowel movement, he denies any unusual symptoms of sinus pain, his pain is much better controlled today than yesterday, we will continue with his oxycodone every 4 hours [id number], continue current bowel regimen, awaiting director social input for the patient to be transferred to subacute rehabilitation. He is medically stable at this point in time to be discharged. 02/19:Patient was supposed to be discharged to extended-care facility, however the patient owes them about $500, and he was not able to go there, he has requested for us to keep him in the hospital overnight, and he will be discharged in the morning tomorrow morning, patient will be going back [facility] at this point in time, with home health care at this point. REVIEW OF SYSTEMS: Constitutional: No documented fever, no chills, no night sweats. No weight change. No weakness, fatigue or lethargy. No daytime sleepiness. EENT: No headache. No blurred vision or double vision, no loss of vision. No loss of Hearing, no ringing in the ears, no dizziness. No nasal drainage or congestion. No epistaxis. No sore throat. Lungs: No shortness of breath, no cough, no sputum production. No wheezing. Reports dyspnea with activity. Cardiovascular: No chest pain, no lower extremity edema. No palpitations. No paroxysmal nocturnal dyspnea. No orthopnea. No lightheadedness or dizziness. No syncopal episodes. Abdominal: Reports no abdominal pain. No nausea, vomiting. No diarrhea. Positive for constipation. No bloody or tarry stools reports loss of appetite. Genitourinary: No dysuria, increased frequency, urgency. No urinary retention. Musculoskeletal: No myalgias. Positive for muscle weakness, positive gait dysfunction, no frequent falls. Positive back pain. Positive neck pain. Integumentary: No wounds, no lesions. No rash or pruritus. No unusual bruising. No change in hair or nails. Neurologic: No aphasia. No facial droop. No change in mentation. No head injury. No headache. No paralysis. No paresthesia. Psychiatric: Mild depression. No anxiety. No mood swings. Endocrine: No abnormal blood sugars. No weight change. PHYSICAL EXAMINATION: General: 74-year-old male sitting up in the chair in no distress HEENT: Head is atraumatic, normocephalic, pupils were equal round reactive to light and recommendation, extraocular muscle movement were intact, sclera nonicteric, conjunctivae were pale, mucous membranes of the mouth are somewhat dry. Neck: Supple, no JVP, normal carotid upstroke bilaterally, no lymphadenopathy. Chest: Decreased breath sounds at the bases, few rhonchi, no expiratory wheezes, no chest wall tenderness, no intercostal retractions. Heart: First heart sound is normal, second heart sounds normal, there are systolic ejection murmur 2 over systolic in the left sternal border Abdomen: Soft, nontender, nondistended, positive bowel sounds. Extremities: There is no edema no calf tenderness DP +2 bilaterally, there is a stage II nonpressure ulcer to the right lower extremity likely venous ulceration with a clean base. Neurologic examination: Patient is awake alert and oriented x3, cranial nerves II-12 appear grossly intact, muscle power were 4 out of 5 in upper extremities and 3 out of 5 in bilateral lower extremities, deep tendon reflexes normal bilaterally. ASSESSMENT AND PLAN: 1. Acute altered mental status, multifactorial due to advancing dementia and medications may have contributed to his toxic encephalopathy. Improved and patient appears to be back to his baseline 2. Moderate to severe vascular dementia. Patient is not taking any medication at this point in time, he used to be on Aricept and Namenda that he took himself off of it. 3. Generalized weakness this is his baseline, patient will require a wheelchair on regular basis, and he only uses a walker to pivot from wheelchair to bathroom and vice versa 4. Acute kidney injury due to acute tubular necrosis due to aggressive diuresis. Has resolved. Recheck a CMP tomorrow morning 5. Hypertension and hypertensive cardiovascular disease. Continue patient on metoprolol 50 mg once every day as well as losartan 50 mg once every day monitor the patient blood pressure very closely 6. mixed hyperlipidemia. 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 10.History of chronic alcohol dependence presently not alcoholic 11. Bilateral lower extremity neuropathy. Continue patient on pregabalin 200 mg orally twice every day 12.DVT prophylaxis. Will continue heparin 5000 units subcutaneously every 8 hours 13.GI prophylaxis. We will continue with Protonix 40 mg once every day 14. Discharge home tomorrow morning. Objective - Vital Signs Vital signs: Vital Signs Temp 97.5 F L 02/20/25 07:30 Pulse 71 02/20/25 07:30 Resp 18 02/20/25 07:30 BP 129/70 02/20/25 07:30 Pulse Ox 98 02/20/25 07:30 FiO2 Intake & Output 02/19/25 02/20/25 02/20/25 18:59 06:59 18:59 Intake Total 339 540 666 Output Total 884 1184 600 Balance -545 -644 66 Intake: Oral 339 540 666 Output: Urine 884 1184 600 Other: Voiding Method Toilet # Voids 1 1 - Labs CBC & Chem 7: 02/18/25 06:24 02/18/25 06:24
--- NOTE | 2025-02-20 13:00 | P.DS ---
Providers Date of admission: 02/12/25 12:18 Expected date of discharge: 02/20/25 Attending physician: Johnny Lane Primary care physician: Johnny Lane Hospital Course: HISTORY OF PRESENT ILLNESS: Patient is a 74-year-old male with known history of dementia which appears to be moderate to severe baseline alert oriented x 2 was brought in with concerns of confusion and patient was trying to drink water spilling more. Patient is from [facility]. It appears patient was brought in here because of probably the level of care he will need. I am unable to get any history from the patient as patient falls asleep pretty quickly after answering 1 question but is always arousable. Patient does not have any fever does have mild leukocytosis I do not have any chest x-ray but urinalysis did not show any significant abnormality patient does not have any cough. Patient creatinine although is elevated to 1.24 baseline is within normal limits. Patient is on Lasix at home patient does not have any history of congestive heart failure had a normal ejection fraction in the past. I believe patient is on Lasix for peripheral edema. Patient is also on some medications that can cause confusion acutely which include trazodone, Percocet, Lyrica patient does have peripheral neuropathy patient does get up and asked for pain medication and goes back to sleep quickly. Patient does have mildly elevated potassium of 5.4. Patient is on losartan. CT of the head did not show any acute pathology. 02/12/2025 Patient was having significant diarrhea lactulose was discontinued, C. difficile was negative. Patient was started on Lomotil. I held his Percocet but this was restarted last night by covering physician as patient was recs worsening for this medication. Awaiting physical therapy and Occupational Therapy evaluation probably will need placement in subacute rehabilitation. Patient is at his baseline alert oriented x 2-3. I will cut down the dose of Percocet to half. 02/13/2025 Patient is evaluated in follow-up in the medical floor. He is frustrated as his pain medication has been decreased to every 12 hours. It is explained that he was found unresponsive and follow-up was due to a medication effect he states that he has been on his pain medication for many years. He is requesting that his pain medication be increased back to every 6 hours. He was evaluated PT with recommendation of subacute rehab and patient is open to this, currently pending social work to follow-up with the patient. 02/14/2025 Patient is seen in follow-up continues to report significant pain and patient does take chronic pain medications outpatient will adjust slightly and also discussed slightly increasing Lyrica that he takes twice daily. Patient with some pressure ulcers noted on the buttock and upper thigh areas present on admission wound care has been consulted recommending to continue with Medihoney and dressings with frequent position changes and offloading. Patient is significantly weak and evaluated by physical therapy recommending rehab and patient is agreeable. Social work is following awaiting insurance authorization and accepting ECF. Patient is afebrile with no reports of chest pain or shortness of breath. Patient has been tolerating diet with no reported nausea or vomiting noted. Continue bowel regimen. 02/15/2025 Patient is seen this morning continues to be complaining of chronic pain and per nursing staff continues to be frustrated that his oxycodones are not every 4 hours. Expressed the importance of too much pain medication causing altered mentation which brought him here for admission and he reports that he had been on this before. Verified with pharmacy that he is now on every 6 hours. Will continue this regimen and also adjusted his Lyrica slightly. Patient is awaiting ECF acceptance and insurance authorization for continued weakness. Continue local wound care to bilateral buttock and thigh and will need outpatient follow-up with the wound care center. Encouraged increase activity as tolerated. 02/16/2025 Patient is seen and evaluated in follow-up today continues to report severe pain although will continue with current pain regimen and to discuss further with his primary care provider regarding increasing the dosing times. Patient is continued on local wound care with Medihoney and will need outpatient follow-up with the wound care center. Patient is afebrile no reports of chest pain or shortness of breath. Patient has been tolerating diet will continue current treatment plan while awaiting acceptance at an ECF and insurance authorization. Will follow-up with social work Monday morning regarding discharge. 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 He is medically stable at this point in time to be discharged. 02/19: Patient is sitting up in wheelchair no apparent distress, we are waiting the 7th grade social studies teacher for the final disposition for the patient to go to extended- care facility possibly in [facility], meanwhile continue with current treatment plan, patient appears to be stable and medically stable for discharge. 02/20: Patient is doing better today, he sitting up in the bed no apparent distress, he was upset because he was not able to go to the residential, he will be discharged home today with home health care to [facility] at this time, he will follow-up with me as an outpatient next week, patient also did have a prescription for medication sent in from my office about few days ago, and he does not need any new prescription. Discharge diagnoses: 1. Toxic metabolic encephalopathy has resolved. 2. Moderate vascular dementia. 3. Generalized weakness this is his baseline. 4. Acute kidney injury due to acute tubular necrosis due to aggressive diuresis. 5. Hypertension and hypertensive cardiovascular disease. 6. mixed hyperlipidemia. 7.Obesity with a BMI of 36.9 8.Stage II pressure ulcer on the right buttocks and thigh, present on admission 9.Nonhealing ulceration with fat layer exposure of the right lower extremity, chronic stable at this time. 10.History of chronic alcohol dependence presently not alcoholic 11. Bilateral lower extremity neuropathy. Patient Condition at Discharge: Good Plan - Discharge Summary Discharge Rx Participant: No New Discharge Prescriptions: New oxyCODONE-APAP 10-325MG [Percocet 10-325 mg] 1 each PO Q4H #18 tab Cyclobenzaprine [Flexeril] 10 mg PO TID PRN tab PRN Reason: Muscle Spasm Pregabalin [Lyrica] 200 mg PO BID #6 cap polyethylene glycoL 3350 [Miralax] 17 gm PO DAILY packet Continue Montelukast Sodium 10 mg PO HS Famotidine [Pepcid] 40 mg PO DAILY Docusate [Colace] 100 mg PO BID PRN PRN Reason: Constipation Lactulose [Cephulac] 20 gm PO BID ml Atorvastatin [Lipitor] 40 mg PO HS #30 tablet Metoprolol Succinate (ER) [Toprol XL] 50 mg PO DAILY Folic Acid 0.8 mg PO DAILY Discontinued oxyCODONE-APAP 10-325MG [Percocet 10-325 mg] 1 tab PO Q6H PRN PRN Reason: Pain Pregabalin [Lyrica] 150 mg PO BID Furosemide [Lasix] 40 mg PO DAILY Losartan Potassium [Cozaar] 100 mg PO DAILY Potassium Chloride ER [K-Dur 20] 20 meq PO DAILY traZODone HCL [Desyrel] 50 mg PO HS PRN PRN Reason: Insomnia Discharge Medication List Lactulose [Cephulac] 20 gm PO BID ml 11/11/24 [Rx] Atorvastatin [Lipitor] 40 mg PO HS #30 tablet 11/15/24 [Rx] Docusate [Colace] 100 mg PO BID PRN 02/11/25 [History] Famotidine [Pepcid] 40 mg PO DAILY 02/11/25 [History] Folic Acid 0.8 mg PO DAILY 02/11/25 [History] Metoprolol Succinate (ER) [Toprol XL] 50 mg PO DAILY 02/11/25 [History] Montelukast Sodium 10 mg PO HS 02/11/25 [History] Cyclobenzaprine [Flexeril] 10 mg PO TID PRN tab 02/19/25 [Rx] Pregabalin [Lyrica] 200 mg PO BID #6 cap 02/19/25 [Rx] oxyCODONE-APAP 10-325MG [Percocet 10-325 mg] 1 each PO Q4H #18 tab 02/19/25 [Rx] polyethylene glycoL 3350 [Miralax] 17 gm PO DAILY packet 02/19/25 [Rx] Follow up Appointment(s)/Referral(s): [facility] [NON-STAFF] - As Needed (CONTACT FOR PERSONAL CARE ASSISTANCE IN THE HOME) Johnny Lane MD [Primary Care Provider] - 2 Weeks [facility] [NON-STAFF] - As Needed Discharge/Stand Alone Forms: Outpatient Counseling Discharge Disposition: TRANSFER TO SNF/ECF
== END 2025-02-20 15:34 | disposition home health service (06) | DRG 91 ==
LOC: EC 00:03 → 6NMEDSUR 07:41 → OBSVTOIN 02-12 12:18 → 6NMEDSUR 02-15 17:43
PROVIDERS: ADMIT Internal Medicine; ATTEND Internal Medicine
DX: G92.8 Other toxic encephalopathy (principal); N17.0 Acute kidney failure with tubular necrosis; L89.312 Pressure ulcer of right buttock, stage 2; L89.321 Pressure ulcer of left buttock, stage 1; F01.B0 Vascular dementia, moderate, without behavioral disturbance, psychotic disturbance, mood disturbance, and anxiety; F10.21 Alcohol dependence, in remission; I11.9 Hypertensive heart disease without heart failure; Z68.36 Body mass index [BMI] 36.0-36.9, adult; L97.212 Non-pressure chronic ulcer of right calf with fat layer exposed; L98.492 Non-pressure chronic ulcer of skin of other sites with fat layer exposed; E78.2 Mixed hyperlipidemia; G57.93 Unspecified mononeuropathy of bilateral lower limbs; T50.2X5A Adverse effect of carbonic-anhydrase inhibitors, benzothiadiazides and other diuretics, initial encounter; E87.5 Hyperkalemia; R29.6 Repeated falls; Z86.14 Personal history of Methicillin resistant Staphylococcus aureus infection; Z79.899 Other long term (current) drug therapy
CPT/HCPCS: 36415; 70450; 80048; 80053; 81003; 83605; 83735; 84484; 85025; 85027; 87324; 93005; 96360; 96361; 99285

== ENCOUNTER → 2025-03-25 | Outpatient (CLI) | payer MEDICARE ==
--- NOTE | 2025-03-25 20:19 | XR ---
EXAMINATION TYPE: XR cervical spine comp DATE OF EXAM: 03/25/2025 4:35 PM INDICATION: Patient age:Male; 74 years old; Reason for study: G89.4; PHH, pain COMPARISON: CT brain 01/08/2024, CT cervical spine 01/06/2024 12/08/2024, MR brain TECHNIQUE: The cervical spine was imaged in frontal, swimmer's, lateral, bilateral oblique, and and o dontoid projections. FINDINGS: No evidence of acute fracture. Multilevel disc space narrowing with endplate sclerosis and anterior o steophytosis. Reversal of the normal cervical lordosis. Multilevel uncovertebral joint hypertrophy. P edicles are intact. Soft tissues are within normal limits. The odontoid appears intact. IMPRESSION: 1. No fracture or dislocation. 2. Advanced degenerative disc disease changes of the cervical spine. [facility], , 03/25/2025 8:16 PM
--- NOTE | 2025-03-25 21:04 | XR ---
EXAMINATION TYPE: XR knee complete LT, XR tibia fibula LT DATE OF EXAM: 03/25/2025 4:35 PM INDICATION: Patient age:Male; 74 years old; Reason for study: M79.605; PH. pain COMPARISON: Bilateral tibia/fibular radiographs 08/17/2024, CT left knee 04/05/2024, left knee radiogra ph 07/17/2020 TECHNIQUE: The Left knee(s) was examined in Frontal, lateral and oblique projections. The left tibia/ fibula was examined in frontal and lateral projections. FINDINGS: No evidence of any acute osseous pathology, soft tissue swelling, or joint effusion is no jennifer. Tricompartmental joint space narrowing with marginal osteophytosis. Sclerosis of the tibial plateau. Bone on bone contact with the medial tibiofemoral joint space. Incidental fabella. No joint effusion . Subcutaneous edema of the ankle redemonstrated. Mild vascular sclerosis. IMPRESSION: 1. No acute osseous pathology. 2. Moderate tricompartmental osteoarthritic changes. 3. Moderate subcutaneous edema the ankle redemonstrated. [facility], , 03/25/2025 9:02 PM
== END | disposition home or self-care (01) ==
LOC: RADXRMAIN 15:13
PROVIDERS: ATTEND Internal Medicine
DX: M50.30 Other cervical disc degeneration, unspecified cervical region (principal); M17.12 Unilateral primary osteoarthritis, left knee; R60.0 Localized edema
CPT/HCPCS: 72050

== ENCOUNTER 2025-03-27 17:57 | Emergency (ER) | payer MEDICARE ==
[2025-03-27 18:02] VITALS: TEMP 97.5
--- NOTE | 2025-03-27 18:33 | ED ---
General Adult HPI - General Chief complaint: Recheck/Abnormal Lab/Rx Stated complaint: body shaking Time Seen by Provider: 03/27/25 18:10 Source: patient Mode of arrival: ambulatory Limitations: no limitations - History of Present Illness Initial comments: 74-year-old male here for complaints of withdrawing from his opioid pain medication. Patient takes Percocet tens, he is prescribed 1 every 4 hours. He reports that he takes 2 every 6 hours. States that he is not abusing his medication he is "taking what is needed". States that he has been out of his medication for 3 days now. States his medication is prescribed by his PCP. He takes it for chronic neck and back pain. No new injury or trauma. Patient is very restless in the stretcher. He is having voluntary motions of shaking his arms and legs due to pain and frustration. - Related Data Home Medications Medication Instructions Recorded Confirmed Docusate [Colace] 100 mg PO BID PRN 02/11/25 02/11/25 Famotidine [Pepcid] 40 mg PO DAILY 02/11/25 02/11/25 Folic Acid 0.8 mg PO DAILY 02/11/25 02/11/25 Metoprolol Succinate (ER) [Toprol 50 mg PO DAILY 02/11/25 02/11/25 XL] Montelukast Sodium 10 mg PO HS 02/11/25 02/11/25 Previous Rx's Medication Instructions Recorded Lactulose [Cephulac] 20 gm PO BID ml 11/11/24 Atorvastatin [Lipitor] 40 mg PO HS #30 tablet 11/15/24 Cyclobenzaprine [Flexeril] 10 mg PO TID PRN tab 02/19/25 Pregabalin [Lyrica] 200 mg PO BID #6 cap 02/19/25 oxyCODONE-APAP 10-325MG [Percocet 1 each PO Q4H #18 tab 02/19/25 10-325 mg] polyethylene glycoL 3350 [Miralax] 17 gm PO DAILY packet 02/19/25 oxyCODONE-APAP 10-325MG [Percocet 1 tab PO Q4HR PRN 3 Days #18 tab 03/27/25 10-325 mg] Allergies Allergy/AdvReac Type Severity Reaction Status Date / Time No Known Allergies Allergy Verified 02/11/25 09:46 Review of Systems ROS Statement: Those systems with pertinent positive or pertinent negative responses have been documented in the HPI. ROS Other: All systems not noted in ROS Statement are negative. Past Medical History Past Medical History: Hypertension, Osteoarthritis (OA) Additional Past Medical History / Comment(s): ETOH abuse, chronic back pain, BLE neuropathy, lymphedema, multiple falls, cellulitis History of Any Multi-Drug Resistant Organisms: MRSA Date of last positivie culture/infection: 11/05/24 MDRO Source:: RT LEG, RT ankle Past Surgical History: Back Surgery, Orthopedic Surgery, Tonsillectomy Additional Past Surgical History / Comment(s): 3 back laminectomies, hand surgery s/p trauma to reattatch tendons Past Anesthesia/Blood Transfusion Reactions: No Reported Reaction Past Psychological History: No Psychological Hx Reported Smoking Status: Never smoker - Past Family History Father Family Medical History: Hypertension Mother Family Medical History: Cancer Additional Family Medical History / Comment(s): Lung cancer Brother(s) Family Medical History: No Reported History Sister(s) Family Medical History: Hypertension Daughter(s) Family Medical History: No Reported History General Exam Limitations: no limitations General appearance: alert, anxious Head exam: Present: atraumatic, normocephalic, normal inspection Eye exam: Present: normal appearance, EOMI Neck exam: Present: normal inspection. Absent: meningismus Respiratory exam: Absent: respiratory distress Cardiovascular Exam: Present: regular rate Neurological exam: Present: alert, oriented X3 Psychiatric exam: Present: agitated, anxious Skin exam: Present: warm, dry Course Vital Signs 03/27/25 03/27/25 17:59 19:03 Temperature 97.5 F L Pulse Rate 85 60 Respiratory 20 18 Rate Blood Pressure 117/60 116/92 O2 Sat by Pulse 100 95 Oximetry Medical Decision Making - Medical Decision Making Was pt. sent in by a medical professional or institution (, PA, STREET VENDOR, urgent care, hospital, or correction...) When possible be specific @ -No Did you speak to anyone other than the patient for history (EMS, parent, family, police, friend...)? What history was obtained from this source @ -Patient's brother Did you review nursing and triage notes (agree or disagree)? Why? @ -I reviewed and agree with nursing and triage notes Were old charts reviewed (outside hosp., previous admission, EMS record, old EKG, old radiological studies, urgent care reports/EKG's, correction records)? Report findings @ -No old charts were reviewed Differential Diagnosis (chest pain, altered mental status, abdominal pain women, abdominal pain men, vaginal bleeding, weakness, fever, dyspnea, syncope, headache, dizziness, GI bleed, back pain, seizure, CVA, palpatations, mental health, musculoskeletal)? @ -Not applicable EKG interpreted by me (3pts min.). @ -As above X-rays interpreted by me (1pt min.). @ -None done CT interpreted by me (1pt min.). @ -None done U/S interpreted by me (1pt. min.). @ -None done What testing was considered but not performed or refused? (CT, X-rays, U/S, labs)? Why? @ -None What meds were considered but not given or refused? Why? @ -None Did you discuss the management of the patient with other professionals (professionals i.e. , PA, STREET VENDOR, lab, RT, psych nurse, high school social studies teacher, tape deck installer, teacher, learning and development officer, case operator)? Give summary @ -No Was smoking cessation discussed for >3mins.? @ -No Was critical care preformed (if so, how long)? @ -No Were there social determinants of health that impacted care today? How? (Homelessness, low income, unemployed, alcoholism, drug addiction, transportation, low edu. Level, literacy, decrease access to med. care, long term, rehab)? @ -No Was there de-escalation of care discussed even if they declined (Discuss DNR or withdrawal of care, Hospice)? DNR status @ -No What co-morbidities impacted this encounter? (DM, HTN, Smoking, COPD, CAD, Cancer, CVA, ARF, Chemo, Hep., AIDS, mental health diagnosis, sleep apnea, morbid obesity)? @ -None Was patient admitted / discharged? Hospital course, mention meds given and route, prescriptions, significant lab abnormalities, going to OR and other pertinent info. @ -74-year-old male requesting refill of his Percocet. He ran out 3 days ago, admits he has been taking more than prescribed. No new injury or trauma. Patient when walking by he is calm and laying in the bed, when we begin conversing he has voluntary movements of shaking his arms and legs due to pain. He is given a dose of pain medication here in the ER and sent 3-day supply to his pharmacy. Instructed that he must follow-up with his PCP and it may be of benefit to see a touch up painter. Follow-up with PCP. Report back to ER with any new or worsening symptoms. Discussed return parameters and answered all questions. Patient conveyed verbal understanding and agreed to the plan. I discussed this case in detail with my attending . Undiagnosed new problem with uncertain prognosis? @ -No Drug Therapy requiring intensive monitoring for toxicity (Heparin, Nitro, Insulin, Cardizem)? @ -No Were any procedures done? @ -No Diagnosis/symptom? @ -Opioid withdraw Acute, or Chronic, or Acute on Chronic? @ -Acute Uncomplicated (without systemic symptoms) or Complicated (systemic symptoms)? @ -Uncomplicated Side effects of treatment? @ -No Exacerbation, Progression, or Severe Exacerbation? @ -No Poses a threat to life or bodily function? How? (Chest pain, [place], DC, pneumonia, PE, COPD, DKA, ARF, appy, cholecystitis, CVA, Diverticulitis, Homicidal, Suicidal, threat to staff... and all critical care pts) @ -Unlikely Disposition Clinical Impression: Opioid withdrawal Disposition: HOME SELF-CARE Condition: Good Instructions (If sedation given, give patient instructions): Opioid Withdrawal (ED) Additional Instructions: Follow up with PCP. Report back to ER with any new or worsening symptoms Prescriptions: oxyCODONE-APAP 10-325MG [Percocet 10-325 mg] 1 tab PO Q4HR PRN 3 Days #18 tab PRN Reason: Pain Is patient prescribed a controlled substance at d/c from ED?: Yes When asked, does pt state using other controlled substances?: No If prescribed controlled substance>3 days was MAPS reviewed?: Prescribed <3 Days If opioid is for acute pain is fill amount 7 days or less?: Yes Referrals: None,Stated [REFERRING] - 1-[address] MD [Primary Care Provider] - 1-2 days Time of Disposition: 18:33
[2025-03-27] MEDS: HYDROmorphone 1 MG/ML 1 ML SYRINGE IM STA (18:39)
[2025-03-27 19:05] VITALS: BP 116/92; PULSE 60; RESP 18
== END 2025-03-27 19:11 | disposition home or self-care (01) ==
LOC: EC 17:57
DX: F11.23 Opioid dependence with withdrawal (principal)
CPT/HCPCS: 99283; 96372; J1171

== ENCOUNTER 2025-03-30 08:11 | Inpatient (IN) | payer MEDICARE ==
--- NOTE | 2025-03-30 08:42 | ED ---
General Adult HPI - General Chief complaint: Fall Stated complaint: Fall Time Seen by Provider: 03/30/25 08:21 Source: patient, EMS, RN notes reviewed Mode of arrival: EMS Limitations: no limitations - History of Present Illness Initial comments: 74-year-old male presenting to the emergency department via EMS for concerns of a fall. Patient overall is a poor historian with a known history of dementia which appears to be moderate to severe baseline alert and oriented x 2. He reports that he was rolling in bed this morning to get more comfortable but he fell out of bed. He is unsure how long he was on the ground for. He believes that his neighbor below him called for help as the patient reports that he may have been asking for help. He does not remember what time he fell this morning or how long he was on the ground for. He is unaware if he hit his head or loss consciousness. He is complaining of pain to his left leg. He denies recent alcohol use stating that he has not consumed alcohol in many years. He endorses neck pain and chronic ba ck pain, denies lloss of bladder or bowel control or saddle anesthesias. - Related Data Home Medications Medication Instructions Recorded Confirmed Docusate [Colace] 100 mg PO BID PRN 02/11/25 02/11/25 Famotidine [Pepcid] 40 mg PO DAILY 02/11/25 02/11/25 Folic Acid 0.8 mg PO DAILY 02/11/25 02/11/25 Metoprolol Succinate (ER) [Toprol 50 mg PO DAILY 02/11/25 02/11/25 XL] Montelukast Sodium 10 mg PO HS 02/11/25 02/11/25 Pregabalin [Lyrica] 150 mg PO BID 03/30/25 Previous Rx's Medication Instructions Recorded Lactulose [Cephulac] 20 gm PO BID ml 11/11/24 Atorvastatin [Lipitor] 40 mg PO HS #30 tablet 11/15/24 Cyclobenzaprine [Flexeril] 10 mg PO TID PRN tab 02/19/25 oxyCODONE-APAP 10-325MG [Percocet 1 each PO Q4H #18 tab 02/19/25 10-325 mg] polyethylene glycoL 3350 [Miralax] 17 gm PO DAILY packet 02/19/25 oxyCODONE-APAP 10-325MG [Percocet 1 tab PO Q4HR PRN 3 Days #18 tab 03/27/25 10-325 mg] Allergies Allergy/AdvReac Type Severity Reaction Status Date / Time No Known Allergies Allergy Verified 02/11/25 09:46 Review of Systems ROS Statement: Those systems with pertinent positive or pertinent negative responses have been documented in the HPI. ROS Other: All systems not noted in ROS Statement are negative. Past Medical History Past Medical History: Hypertension, Osteoarthritis (OA) Additional Past Medical History / Comment(s): ETOH abuse, chronic back pain, BLE neuropathy, lymphedema, multiple falls, cellulitis History of Any Multi-Drug Resistant Organisms: MRSA Date of last positivie culture/infection: 11/05/24 MDRO Source:: RT LEG, RT ankle Past Surgical History: Back Surgery, Orthopedic Surgery, Tonsillectomy Additional Past Surgical History / Comment(s): 3 back laminectomies, hand surgery s/p trauma to reattatch tendons Past Anesthesia/Blood Transfusion Reactions: No Reported Reaction Past Psychological History: No Psychological Hx Reported Smoking Status: Never smoker Past Alcohol Use History: None Reported Past Drug Use History: None Reported - Past Family History Father Family Medical History: Hypertension Mother Family Medical History: Cancer Additional Family Medical History / Comment(s): Lung cancer Brother(s) Family Medical History: No Reported History Sister(s) Family Medical History: Hypertension Daughter(s) Family Medical History: No Reported History General Exam Limitations: no limitations General appearance: alert, in no apparent distress ENT exam: Present: normal exam, mucous membranes moist Neck exam: Present: normal inspection. Absent: tenderness, meningismus, lymphadenopathy Respiratory exam: Present: normal lung sounds bilaterally. Absent: respiratory distress, wheezes, rales, rhonchi, stridor Cardiovascular Exam: Present: regular rate, normal rhythm, normal heart sounds. Absent: systolic murmur, diastolic murmur, rubs, gallop, clicks GI/Abdominal exam: Present: soft, normal bowel sounds. Absent: distended, tenderness, guarding, rebound, rigid Extremities exam: Present: normal inspection, full ROM, normal capillary refill. Absent: tenderness, pedal edema, joint swelling, calf tenderness Neurological exam: Present: alert Expanded Patient oriented to: Present: person. Absent: place, time Course Vital Signs 07/03/30/25 03/30/25 08:14 10:46 11:00 Temperature 97.9 F Pulse Rate 74 71 Respiratory 18 16 19 Rate Blood Pressure 149/80 120/65 O2 Sat by Pulse 96 96 Oximetry 03/30/25 15:14 Temperature Pulse Rate 65 Respiratory 16 Rate Blood Pressure 160/65 O2 Sat by Pulse 95 Oximetry Medical Decision Making - Medical Decision Making Was pt. sent in by a medical professional or institution (, PA, IT RISK AND ASSURANCE MANAGER, urgent care, hospital, or custodial...) When possible be specific @ -No Did you speak to anyone other than the patient for history (EMS, parent, family, police, friend...)? What history was obtained from this source @ -No Did you review nursing and triage notes (agree or disagree)? Why? @ -I reviewed and agree with nursing and triage notes Were old charts reviewed (outside hosp., previous admission, EMS record, old EKG, old radiological studies, urgent care reports/EKG's, custodial records)? Report findings @ -No old charts were reviewed Differential Diagnosis (chest pain, altered mental status, abdominal pain women, abdominal pain men, vaginal bleeding, weakness, fever, dyspnea, syncope, headache, dizziness, GI bleed, back pain, seizure, CVA, palpatations, mental health, musculoskeletal)? @ -Differential Weakness: Hypoglycemia, shock, sepsis, hyponatremia, anemia, infection, FL, ETOH, adverse medicine reaction, overdose, stroke, this is not meant to be an all-inclusive list. EKG interpreted by me (3pts min.). @ -Completed at 914 sinus rhythm with a ventricular rate of 76, [place] interval 176, QRS 73, QT 369, QTc 399. X-rays interpreted by me (1pt min.). @ -X-ray of the left knee and femur reveals no acute osseous pathology CT interpreted by me (1pt min.). @ -CT of the brain and C-spine without contrast no acute intracranial cervical spine process U/S interpreted by me (1pt. min.). @ -None done What testing was considered but not performed or refused? (CT, X-rays, U/S, labs)? Why? @ -None What meds were considered but not given or refused? Why? @ -None Did you discuss the management of the patient with other professionals (professionals i.e. , PA, IT RISK AND ASSURANCE MANAGER, lab, RT, psych nurse, marriage and family social worker, assisted living home director, teacher, weapons officer, rehabilitation case coordinator)? Give summary @ -I spoke with patient's primary care provider, Dr. Lane, who was agreed with the patient for generalized weakness, physical therapy and Occupational Therapy consult and potential placement. Was smoking cessation discussed for >3mins.? @ -No Was critical care preformed (if so, how long)? @ -No Were there social determinants of health that impacted care today? How? (Homelessness, low income, unemployed, alcoholism, drug addiction, transportation, low edu. Level, literacy, decrease access to med. care, [facility], rehab)? @ -No Was there de-escalation of care discussed even if they declined (Discuss DNR or withdrawal of care, Hospice)? DNR status @ -No What co-morbidities impacted this encounter? (DM, HTN, Smoking, COPD, CAD, Cancer, CVA, ARF, Chemo, Hep., AIDS, mental health diagnosis, sleep apnea, morbid obesity)? @ -None Was patient admitted / discharged? Hospital course, mention meds given and route, prescriptions, significant lab abnormalities, going to OR and other pertinent info. @ -Admitted. 74-year-old male presenting to the ER via EMS after a fall. Patient is alert and oriented to himself however states that the year is 2013, is unaware of the month and is unaware who the president is. Patient is generally weak and smells of urine on examination with a mild ecchymosis noted to the left lower hanks. Full range of motion bilateral lower extremities. Patient will undergo general weakness evaluation. CBC is unremarkable, mild hyperkalemia with a potassium of 5.3. Troponin is not detected, creatinine kinase not elevated at 160. Urinalysis reveals no signs of infection. Serum alcohol is not detected. Patient CT imaging the brain and C-spine, femur x-ray and knee x-ray are all unremarkable. With concern for generalized weakness and debility and patient unable to take care of himself at home and living in a facility where there is not assistance patient will be admitted for further evaluation and potential placement. Patient will be admitted to Dr. Lane. Case discussed with my attending Dr. Lugo. Undiagnosed new problem with uncertain prognosis? @ -No Drug Therapy requiring intensive monitoring for toxicity (Heparin, Nitro, Insulin, Cardizem)? @ -No Were any procedures done? @ -No Diagnosis/symptom? @ -Generalized weakness, inability to complete activities of daily living without assistance Acute, or Chronic, or Acute on Chronic? @ -Acute Uncomplicated (without systemic symptoms) or Complicated (systemic symptoms)? @ -Complicated Side effects of treatment? @ -No Exacerbation, Progression, or Severe Exacerbation? @ -No Poses a threat to life or bodily function? How? (Chest pain, [place], FL, pneumonia, PE, COPD, DKA, ARF, appy, cholecystitis, CVA, Diverticulitis, Homicidal, Suicidal, threat to staff... and all critical care pts) @ -No - Lab Data Result diagrams: 03/30/25 08:48 03/30/25 08:48 Lab Results 03/30/25 03/30/25 03/30/25 Range/Units 08:48 08:48 08:48 WBC 10.57 H (4.50-10.00) 10*3/uL RBC 3.56 L (4.40-5.60) 10*6/uL Hgb 10.6 L (13.0-17.0) g/dL Hct 32.8 L (39.6-50.0) % MCV 92.1 (80.0-97.0) fL MCH 29.8 (27.0-32.0) pg MCHC 32.3 (32.0-37.0) g/dL Plt Count 241 (140-440) 10*3/uL MPV 9.7 (9.5-12.2) fL Immature Gran % (Auto) 0.4 % Neutrophils % 62.6 % Lymphocytes % 23.1 % Monocytes % 10.7 % Eosinophils % 2.8 % Basophils % 0.4 % Immature Gran # 0.04 (0.00-0.04) 10*3/uL Neutrophils # 6.62 (1.80-7.70) 10*3/uL Lymphocytes # 2.44 (0.90-5.00) 10*3/uL Monocytes # 1.13 H (0.20-1.00) 10*3/uL Eosinophils # 0.30 (0.04-0.35) 10*3/uL Basophils # 0.04 (0.00-0.10) 10*3/uL Immature Plt Fraction 0.9 L (1.1-6.1) % PT (10.0-12.5) sec INR (<1.2) APTT (22.0-30.0) sec Sodium 142 (137-145) mmol/L Potassium 5.3 H (3.5-5.1) mmol/L Chloride 110 H (98-107) mmol/L Carbon Dioxide 25 (22-30) mmol/L Anion Gap 7 mmol/L BUN 27 H (9-20) mg/dL Creatinine 0.83 (0.66-1.25) mg/dL Est GFR (CKD-EPI)AfAm >90 (>60 ml/min/1.73 sqM) Est GFR (CKD-EPI)NonAf 88 (>60 ml/min/1.73 sqM) Glucose 106 H (74-99) mg/dL POC Glucose (mg/dL) (70-110) mg/dL POC Glu Auto Polisher ID Plasma Lactic Acid Gerardo 1.1 (0.7-2.0) mmol/L Calcium 9.4 (8.4-10.2) mg/dL Magnesium 2.3 (1.6-2.3) mg/dL Total Bilirubin 0.8 (0.2-1.3) mg/dL AST 29 (17-59) U/L ALT 13 (4-49) U/L Alkaline Phosphatase 54 (38-126) U/L Creatine Kinase 160 (55-170) U/L Troponin I (0.000-0.034) ng/mL Total Protein 6.1 L (6.3-8.2) g/dL Albumin 3.8 (3.5-5.0) g/dL Urine Color Urine Appearance (Clear) Urine pH (5.0-8.0) Ur Specific [place] (1.001-1.035) Urine Protein (Negative) Urine Glucose (UA) (Negative) Urine Ketones (Negative) Urine Blood (Negative) Urine Nitrite (Negative) Urine Bilirubin (Negative) Urine Urobilinogen (<2.0) mg/dL Ur Leukocyte Esterase (Negative) Urine Opiates Screen (NotDetected) Ur Oxycodone Screen (NotDetected) Urine Methadone Screen (NotDetected) Ur Barbiturates Screen (NotDetected) U Tricyclic Antidepress (NotDetected) Ur Phencyclidine Scrn (NotDetected) Ur Amphetamines Screen (NotDetected) U Methamphetamines Scrn (NotDetected) U Benzodiazepines Scrn (NotDetected) Urine Cocaine Screen (NotDetected) U Marijuana (THC) Screen (NotDetected) Serum Alcohol <10 mg/dL 03/30/25 03/30/25 03/30/25 Range/Units 08:48 09:16 10:20 WBC (4.50-10.00) 10*3/uL RBC (4.40-5.60) 10*6/uL Hgb (13.0-17.0) g/dL Hct (39.6-50.0) % MCV (80.0-97.0) fL MCH (27.0-32.0) pg MCHC (32.0-37.0) g/dL Plt Count (140-440) 10*3/uL MPV (9.5-12.2) fL Immature Gran % (Auto) % Neutrophils % % Lymphocytes % % Monocytes % % Eosinophils % % Basophils % % Immature Gran # (0.00-0.04) 10*3/uL Neutrophils # (1.80-7.70) 10*3/uL Lymphocytes # (0.90-5.00) 10*3/uL Monocytes # (0.20-1.00) 10*3/uL Eosinophils # (0.04-0.35) 10*3/uL Basophils # (0.00-0.10) 10*3/uL Immature Plt Fraction (1.1-6.1) % PT 10.4 (10.0-12.5) sec INR 0.9 (<1.2) APTT 22.1 (22.0-30.0) sec Sodium (137-145) mmol/L Potassium (3.5-5.1) mmol/L Chloride (98-107) mmol/L Carbon Dioxide (22-30) mmol/L Anion Gap mmol/L BUN (9-20) mg/dL Creatinine (0.66-1.25) mg/dL Est GFR (CKD-EPI)AfAm (>60 ml/min/1.73 sqM) Est GFR (CKD-EPI)NonAf (>60 ml/min/1.73 sqM) Glucose (74-99) mg/dL POC Glucose (mg/dL) 117 H (70-110) mg/dL POC Glu Auto Polisher ID Silvia Bell Plasma Lactic Acid Gerardo (0.7-2.0) mmol/L Calcium (8.4-10.2) mg/dL Magnesium (1.6-2.3) mg/dL Total Bilirubin (0.2-1.3) mg/dL AST (17-59) U/L ALT (4-49) U/L Alkaline Phosphatase (38-126) U/L Creatine Kinase (55-170) U/L Troponin I <0.012 (0.000-0.034) ng/mL Total Protein (6.3-8.2) g/dL Albumin (3.5-5.0) g/dL Urine Color Urine Appearance (Clear) Urine pH (5.0-8.0) Ur Specific [place] (1.001-1.035) Urine Protein (Negative) Urine Glucose (UA) (Negative) Urine Ketones (Negative) Urine Blood (Negative) Urine Nitrite (Negative) Urine Bilirubin (Negative) Urine Urobilinogen (<2.0) mg/dL Ur Leukocyte Esterase (Negative) Urine Opiates Screen (NotDetected) Ur Oxycodone Screen (NotDetected) Urine Methadone Screen (NotDetected) Ur Barbiturates Screen (NotDetected) U Tricyclic Antidepress (NotDetected) Ur Phencyclidine Scrn (NotDetected) Ur Amphetamines Screen (NotDetected) U Methamphetamines Scrn (NotDetected) U Benzodiazepines Scrn (NotDetected) Urine Cocaine Screen (NotDetected) U Marijuana (THC) Screen (NotDetected) Serum Alcohol mg/dL 03/30/25 03/30/25 Range/Units 10:47 10:47 WBC (4.50-10.00) 10*3/uL RBC (4.40-5.60) 10*6/uL Hgb (13.0-17.0) g/dL Hct (39.6-50.0) % MCV (80.0-97.0) fL MCH (27.0-32.0) pg MCHC (32.0-37.0) g/dL Plt Count (140-440) 10*3/uL MPV (9.5-12.2) fL Immature Gran % (Auto) % Neutrophils % % Lymphocytes % % Monocytes % % Eosinophils % % Basophils % % Immature Gran # (0.00-0.04) 10*3/uL Neutrophils # (1.80-7.70) 10*3/uL Lymphocytes # (0.90-5.00) 10*3/uL Monocytes # (0.20-1.00) 10*3/uL Eosinophils # (0.04-0.35) 10*3/uL Basophils # (0.00-0.10) 10*3/uL Immature Plt Fraction (1.1-6.1) % PT (10.0-12.5) sec INR (<1.2) APTT (22.0-30.0) sec Sodium (137-145) mmol/L Potassium (3.5-5.1) mmol/L Chloride (98-107) mmol/L Carbon Dioxide (22-30) mmol/L Anion Gap mmol/L BUN (9-20) mg/dL Creatinine (0.66-1.25) mg/dL Est GFR (CKD-EPI)AfAm (>60 ml/min/1.73 sqM) Est GFR (CKD-EPI)NonAf (>60 ml/min/1.73 sqM) Glucose (74-99) mg/dL POC Glucose (mg/dL) (70-110) mg/dL POC Glu Auto Polisher ID Plasma Lactic Acid Gerardo (0.7-2.0) mmol/L Calcium (8.4-10.2) mg/dL Magnesium (1.6-2.3) mg/dL Total Bilirubin (0.2-1.3) mg/dL AST (17-59) U/L ALT (4-49) U/L Alkaline Phosphatase (38-126) U/L Creatine Kinase (55-170) U/L Troponin I (0.000-0.034) ng/mL Total Protein (6.3-8.2) g/dL Albumin (3.5-5.0) g/dL Urine Color Light Yellow Urine Appearance Clear (Clear) Urine pH 5.5 (5.0-8.0) Ur Specific [place] 1.018 (1.001-1.035) Urine Protein Negative (Negative) Urine Glucose (UA) Negative (Negative) Urine Ketones Negative (Negative) Urine Blood Negative (Negative) Urine Nitrite Negative (Negative) Urine Bilirubin Negative (Negative) Urine Urobilinogen <2.0 (<2.0) mg/dL Ur Leukocyte Esterase Negative (Negative) Urine Opiates Screen Not Detected (NotDetected) Ur Oxycodone Screen Detected H (NotDetected) Urine Methadone Screen Not Detected (NotDetected) Ur Barbiturates Screen Not Detected (NotDetected) U Tricyclic Antidepress Not Detected (NotDetected) Ur Phencyclidine Scrn Not Detected (NotDetected) Ur Amphetamines Screen Not Detected (NotDetected) U Methamphetamines Scrn Not Detected (NotDetected) U Benzodiazepines Scrn Not Detected (NotDetected) Urine Cocaine Screen Not Detected (NotDetected) U Marijuana (THC) Screen Not Detected (NotDetected) Serum Alcohol mg/dL Disposition Clinical Impression: Fall, Generalized weakness Disposition: ADMITTED IP TO THIS [facility] Condition: Stable Time of Disposition: 11:24 Decision to Admit Reason: Admit from EC Decision Date: 03/30/25 Decision Time: 14:11
[2025-03-30 09:00] LABS: Basophils # (A) 0.04 10*3/uL (0.00-0.10); Basophils % (A) 0.4 %; Eosinophils # (A) 0.30 10*3/uL (0.04-0.35); Eosinophils % (A) 2.8 %; HCT 32.8 % (39.6-50.0); HGB 10.6 g/dL (13.0-17.0); Immature Platelet Fraction 0.9 % (1.1-6.1); Lymphocytes # (A) 2.44 10*3/uL (0.90-5.00); Lymphocytes % (A) 23.1 %; MCH 29.8 pg (27.0-32.0); MCHC 32.3 g/dL (32.0-37.0); MCV 92.1 fL (80.0-97.0); Monocytes # (A) 1.13 10*3/uL (0.20-1.00); Monocytes % (A) 10.7 %; Neutrophils # (A) 6.62 10*3/uL (1.80-7.70); Neutrophils % (A) 62.6 %; RBC 3.56 10*6/uL (4.40-5.60); RDW 15.9 % (11.5-14.5); WBC 10.57 10*3/uL (4.50-10.00)
[2025-03-30 09:12] LABS: ALT 13 U/L (4-49); AST 29 U/L (17-59); African American GFR (CKD) >90 (>60 ml/min/1.73 sqM); Albumin 3.8 g/dL (3.5-5.0); Alkaline Phosphatase 54 U/L (38-126); Anion Gap 7 mmol/L; Blood Urea Nitrogen 27 mg/dL (9-20); Calcium 9.4 mg/dL (8.4-10.2); Carbon Dioxide 25 mmol/L (22-30); Chloride 110 mmol/L (98-107); Creatine Kinase 160 U/L (55-170); Glucose 106 mg/dL (74-99); Magnesium 2.3 mg/dL (1.6-2.3); Non-African American GFR(CKD) 88 (>60 ml/min/1.73 sqM); Potassium 5.3 mmol/L (3.5-5.1); Sodium 142 mmol/L (137-145); Total Protein 6.1 g/dL (6.3-8.2)
[2025-03-30 09:18] LABS: Glucose,Whole Blood 117 mg/dL (70-110)
[2025-03-30 09:28] LABS: Platelet Count 241 10*3/uL (140-440)
--- NOTE | 2025-03-30 10:02 | CT ---
EXAMINATION TYPE: CT brain cspine wo con CT DLP: 1433 mGycm, Automated exposure control for dose reduction was used. DATE OF EXAM: 03/30/2025 9:49 AM COMPARISON: CT brain 12/24/2024, CT brain C-spine 12/08/2024. CLINICAL INDICATION:Male, 74 years old with history of fall out of bed, neck pain; FALL. NECK PAIN, p ain TECHNIQUE: Brain: Multiple axial CT images of the brain were obtained without IV contrast. Cspine: Axial CT images from the skull base to the inferior aspect of T2 we obtained without intraven ous contrast. Coronal and sagittal reformatted images were also reviewed. FINDINGS: Brain: Extra-axial spaces: No abnormal extra-axial fluid collections. Ventricular system: Within normal limits Cerebral parenchyma: Mild cerebral atrophy. No acute intraparenchymal hemorrhage or mass effect. The dubon-white junction is well differentiated. Scattered hypoattenuating areas are seen within the franky ventricular white matter. Cerebellum: Unremarkable. Mass effect: No evidence of midline shift. Intracranial vasculature: unremarkable Soft tissues: Normal. Calvarium/osseous structures: No depressed skull fracture. Paranasal sinuses and mastoid air cells: Clear. Visualized orbits: Orbital contents are intact. Cervical spine: Fracture: None. Osseous structures: Multilevel disc displacement with endplate sclerosis and anterior osteophytosis. Vacuum disc disease at C3-C4. Multilevel facet arthropathy. Vertebral alignment: Stable degenerative grade 1 anterolisthesis of C2 on C3. Stable grade 1 retrolis thesis of C3 and C4. Spinal canal/Neural Foramina: Disc osteophyte complexes at C3-C4, C4-C5, C5-C6, C6-C7, and C7-T1 with mild spinal canal stenosis. Facet joint uncovertebral joint arthropathy scattered throughout the cer vical spine with varying degrees of neural foraminal stenosis. Neck soft tissues: Prevertebral soft tissues are within normal limits. Other: The airway is patent. Linear scarring within the anterior left upper lobe. Mild atheroscleroti c calcification of the bilateral carotid bifurcations. Retropharyngeal course of the right common car otid artery. IMPRESSION: 1. No acute intracranial process. 2. Nonspecific mild white matter changes, likely secondary to chronic small vessel ischemic disease. 3. No evidence of cervical spine fracture. 4. Moderate multilevel degenerative disc disease. [facility], , 03/30/2025 9:59 AM
--- NOTE | 2025-03-30 10:13 | XR ---
EXAMINATION TYPE: XR knee complete LT, XR femur LT DATE OF EXAM: 03/30/2025 9:51 AM INDICATION: Patient age:Male; 74 years old; Reason for study: fall out of bed, pain; PHH. pain COMPARISON: Left knee/tibia/fibular radiographs 03/25/2025 TECHNIQUE: The Left knee(s) was examined in Frontal, lateral and oblique projections. The left femur was examined in frontal and lateral projections. FINDINGS: No evidence of any acute osseous pathology, soft tissue swelling, or joint effusion is no jennifer. Tricompartmental joint space narrowing with marginal osteophytosis of the knee. Sclerosis of the tib ial plateau. [id number] contact with the medial tibiofemoral joint space. Chondrocalcinosis of the medial tibiofemoral joint. Incidental fabella. No joint effusion. Mild vascular sclerosis. Superior j oint space narrowing of the left hip. IMPRESSION: 1. No acute osseous pathology. 2. Moderate tricompartmental osteoarthritic changes. 3. Mild osteoarthritic changes of the left hip. 4. Chondrocalcinosis of the knee. [facility], , 03/30/2025 10:11 AM
[2025-03-30 10:37] LABS: INR 0.9 (<1.2); Partial Thromboplastin Time 22.1 sec (22.0-30.0); Prothrombin Time 10.4 sec (10.0-12.5)
[2025-03-30 11:19] LABS: Bilirubin,Urine Negative (Negative); Blood,Urine Negative (Negative); Color,Urine Light Yellow; Glucose,Urine (UA) Negative (Negative); Ketones,Urine Negative (Negative); Leukocyte Esterase,Urine Negative (Negative); Nitrite,Urine Negative (Negative); PH, Urine 5.5 (5.0-8.0); Protein,Urine Negative (Negative); Specific Gravity,Urine 1.018 (1.001-1.035); Urobilinogen,Urine <2.0 mg/dL (<2.0)
[2025-03-30 11:30] LABS: Barbiturate Screen,Urine Not Detected (NotDetected); Benzodiazepines Screen,Urine Not Detected (NotDetected); Opiate Screen,Urine Not Detected (NotDetected); Oxycodone Screen, Urine Detected (NotDetected); Phencyclidine Screen,Urine Not Detected (NotDetected); Tricyclic Antidepressant,Urine Not Detected (NotDetected); Urn Cannabinoid Scrn Not Detected (NotDetected)
[2025-03-30] MEDS ORDERED: NALOXONE 0.4 MG/ML 1 ML VIAL IV PRN (14:11)
[2025-03-30] MEDS ORDERED: DOCUSATE 100 MG CAP PO PRN (16:43)
[2025-03-30] MEDS: LACTULOSE 20 GM/30 ML CUP PO SCH (20:43)
[2025-03-30] MEDS: MONTELUKAST 10 MG TAB PO SCH (20:43)
[2025-03-30] MEDS: PREGABALIN 75 MG CAP PO SCH (20:43)
[2025-03-30] MEDS: ENOXAPARIN 40 MG/0.4 ML SYRINGE SQ SCH (20:43)
[2025-03-30] MEDS: ATORVASTATIN 40 MG TAB PO SCH (20:43)
[2025-03-31] MEDS: PANTOPRAZOLE 40 MG TABLET PO SCH (06:34)
[2025-03-31 07:45] LABS: Basophils # (A) 0.04 X 10*3/uL (0.00-0.10); Basophils % (A) 0.4 %; Eosinophils # (A) 0.35 X 10*3/uL (0.04-0.35); Eosinophils % (A) 3.8 %; HCT 32.0 % (39.6-50.0); HGB 9.9 g/dL (13.0-17.0); Immature Grans, Automated 0.40 %; Lymphocytes # (A) 2.45 X 10*3/uL (0.90-5.00); Lymphocytes % (A) 26.6 %; MCH 28.7 pg (27.0-32.0); MCHC 30.9 g/dL (32.0-37.0); MCV 92.8 FL (80.0-97.0); Monocytes # (A) 1.08 X 10*3/uL (0.20-1.00); Monocytes % (A) 11.7 %; NRBC Per 100 WBC 0 X 10*3/uL (0.00-0.01); Neutrophils # (A) 5.24 X 10*3/uL (1.80-7.70); Neutrophils % (A) 57.1 %; Platelet Count 140 X 10*3/uL (140-440); RBC 3.45 X 10*6/uL (4.40-5.60); RDW 16.1 % (11.5-14.5); WBC 9.20 X 10*3/uL (4.50-10.00)
[2025-03-31 08:03] LABS: ALT 12 U/L (10-49); AST 18 U/L (14-35); Albumin 3.7 g/dL (3.8-4.9); Albumin/Globulin Ratio 2.06 Ratio (1.60-3.17); Alkaline Phosphatase 59 U/L (41-126); Anion Gap 8.90 mmol/L (4.00-12.00); BUN/Creat Ratio 24.70 Ratio (12.00-20.00); Blood Urea Nitrogen 24.7 mg/dL (9.0-27.0); Calcium 8.9 mg/dL (8.7-10.3); Carbon Dioxide 25.1 mmol/L (21.6-31.8); Chloride 106 mmol/L (96-109); Globulin 1.8 g/dL (1.6-3.3); Glucose 99 mg/dL (70-110); Potassium 4.7 mmol/L (3.5-5.5); Sodium 140 mmol/L (135-145); Total Protein 5.5 g/dL (6.2-8.2)
[2025-03-31] MEDS: METOPROLOL SUCCINATE (ER) 50 MG TAB.ER.24H PO SCH (08:21)
[2025-03-31] MEDS: BACLOFEN 10 MG TAB PO PRN (08:21)
[2025-03-31] MEDS: FOLIC ACID 1 MG TAB PO SCH (08:21)
--- NOTE | 2025-03-31 09:09 | P.HPIM ---
History of Present Illness H&P Date: 03/31/25 Chief Complaint: Recurrent falls not able to care for himself. HISTORY OF PRESENT ILLNESS: This is a 74-year-old male one of my patient with a previous medical history significant for hypertension and hypertensive cardiovascular disease, hyperlipidemia, obesity with obstructive sleep apnea, history of chronic alcohol use and dependence with the peripheral neuropathy, significant spondylosis of the lumbar spine with spinal stenosis and significant chronic low back pain, patient was recently hospitalized at [facility] in February 2025 after he was brought into the emergency department because the patient is not able to care for himself at [facility], and he was requiring some more care at this point in time, apparently I saw him in the office last week and the patient has utilized all his Percocet because he stated that he is in a lot of pain at this time, he does not follow recommendation on the prescription bottle, I switch the patient to oxycodone 10 mg every 4 hours as needed, the patient apparently rolled out of the bed and landed on the floor, he ended up coming to the ER for evaluation he has a battery of testing that was negative, and the patient was supposed to be released back to [facility] however the patient refused to go because he is not able to care for himself at this time, he was smelling urine, and he is not able to have the care that he needed at [facility], and because of safety issue he was admitted to the hospital with social services assistant consultation for definite long-term plan at this point in time, patient will require to go to a extended care facility at this point in time as the patient is not able to live in an assisted living facility. REVIEW OF SYSTEMS: Constitutional: No documented fever, no chills, no night sweats. No weight change. positive for weakness , reports fatigue reports no lethargy. negative for daytime sleepiness. HEENT: No headache. No blurred vision or double vision, no loss of vision. No loss of Hearing, no ringing in the ears, no dizziness. No nasal drainage or congestion. No epistaxis. No sore throat. Lungs: No shortness of breath, occasional cough, minimal sputum production. No wheezing. Reports dyspnea with activity. Cardiovascular: No chest pain, mild lower extremity edema. No palpitations. No paroxysmal nocturnal dyspnea. No orthopnea. No lightheadedness or dizziness. No syncopal episodes.Positive for nocturia. Abdominal: No abdominal pain. No nausea, vomiting. no diarrhea. Occasional constipation. No bloody or tarry stools . No loss of appetite. Genitourinary: No dysuria, increased frequency, urgency. No urinary retention. Musculoskeletal: positive for neck pain, positive for chronic low back pain, positive for pain in both lower extremities with significant neuropathy, positive for gait dysfunction, positive for lower extremity weakness right more than left. Integumentary: venous stasis and stasis dermatitis and venous has resolved. Neurologic: No aphasia. No facial droop. Positive for memory loss. No head injury. No headache, positive for paresthesia in both lower extremities, Psychiatric: Patient does appear to be somewhat depressed, appears to be a bit anxious, no suicidal thoughts or ideation. Endocrine: No abnormal blood sugars, increased weight. PAST MEDICAL HISTORY: 1. Hypertension and hypertensive cardiovascular disease. 2. Hyperlipidemia. 3. Hypothyroidism. 4. Chronic venous stasis with stasis dermatitis. 5. Chronic alcohol use and dependence. 6. Obstructive sleep apnea. 7. Peripheral neuropathy. 8. Vascular dementia. 9. Enlarged prostate. 10. 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 11. Restless leg syndrome. PAST SURGICAL HISTORY: 1. Laminectomies in the lumbar spine 3. 2. Tonsillectomy. 3. Hand surgery with tendon repair. SOCIAL HISTORY: Patient denies a history of smoking, he drinks about 3 beers every other day, he used to drink a lot heavier than that, he denies any drug use or abuse, he denies any marijuana use and lives along, he has a daughter who comes a check on him, only on the weekend. FAMILY HISTORY: Father at age 93 from old age. History of hypertension and myocardial infarction, mother at age of 84 from lung cancer and she was heavy smoker, patient has 2 brothers one of them is super morbid obesity and other one is okay, patient has 2 sisters one of them is 63-year-old with history of venous stasis, the other one is fine, patient has a daughter with no major medical problems 35-year-old. PHYSICAL EXAMINATION: General: This is a 74-year-old male laying down in bed in no apparent distress. HEENT: Head is atraumatic, normocephalic, pupils were equal round reactive to light and recommendation, extraocular muscle movement were intact, sclera nonicteric, conjunctivae were pale, mucous membranes of the mouth are somewhat dry. Neck: Supple, no JVP, normal carotid upstroke bilaterally, no lymphadenopathy. Chest: Decreased breath sounds at the bases, few rhonchi, no expiratory wheezes, no chest wall tenderness, no intercostal retractions. Heart: First heart sound is normal, second heart sound is normal there is systolic ejection murmur 2/6 located in the left sternal border. Abdomen: Soft, nontender, nondistended, positive bowel sounds. Extremities: There is chronic skin changes dorsalis pedis +1 bilaterally with significant neuropathy Neurologic examination: Patient is awake alert and oriented x 2, cranial nerves III to XII appear to be grossly intact, muscle power 4 out of 5 in upper extremities and 2 out of 5 in the right lower extremity and 2 out of 5 in the left lower extremity ASSESSMENT AND PLAN: 1. Medical debility with recurrent falls and inability to ambulate with significant weakness of both lower extremities right more than left. Patient did have knee x-ray that did not show evidence of acute abnormalities except for moderate tricompartmental osteoarthritis mild left hip osteoarthritis, and cervical spine CT scan showed evidence of degenerative disc disease that is moderate without evidence of acute fracture, his CT scan of the brain did show evidence of white matter changes with atrophy otherwise no acute infarct or bleed. I will consult social services assistant for definite plan for subacute rehabilitation as the patient is not able to care for himself at assisted living, physical therapy evaluation for rehab notes, patient will likely require to go to [facility] at this time. 2. Hypertension and hypertensive cardiovascular disease. Continue patient on metoprolol ER 50 mg once every day, monitor the patient blood pressure very closely. 3. Mixed hyperlipidemia. Continue atorvastatin 40 mg daily. Keep LDL 55-70. 4. Mild cognitive impairment Likely due to vascular dementia. Patient is not taking any medication at this point in time. 5. History of chronic alcohol use and dependence. patient has quit 6. 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 we will continue with oxycodone 10 mg orally every 4 hours as needed monitor the patient symptoms very closely, physical therapy evaluation. 7. Bilateral lower extremity neuropathy continue patient on Lyrica 150 mg orally 2 times every day. 8. DVT prophylaxis. Continue Lovenox 40 mg subcutaneously every 24 hours per 9. GI prophylaxis. Continue Protonix 40 mg orally once every day. 10. Admit to inpatient. Estimated length of stay 2 midnights. 11. Patient is full code Past Medical History Past Medical History: Hypertension, Osteoarthritis (OA) Additional Past Medical History / Comment(s): ETOH abuse, chronic back pain, BLE neuropathy, lymphedema, multiple falls, cellulitis History of Any Multi-Drug Resistant Organisms: MRSA Date of last positivie culture/infection: 11/05/24 MDRO Source:: RT LEG, RT ankle Past Surgical History: Back Surgery, Orthopedic Surgery, Tonsillectomy Additional Past Surgical History / Comment(s): 3 back laminectomies, hand surgery s/p trauma to reattatch tendons Past Anesthesia/Blood Transfusion Reactions: No Reported Reaction Past Psychological History: No Psychological Hx Reported Smoking Status: Never smoker Past Alcohol Use History: None Reported Past Drug Use History: None Reported - Past Family History Father Family Medical History: Hypertension Mother Family Medical History: Cancer Additional Family Medical History / Comment(s): Lung cancer Brother(s) Family Medical History: No Reported History Sister(s) Family Medical History: Hypertension Daughter(s) Family Medical History: No Reported History Medications and Allergies Home Medications Medication Instructions Recorded Confirmed Type Lactulose [Cephulac] 20 gm PO BID ml 11/11/24 03/30/25 Rx Atorvastatin [Lipitor] 40 mg PO HS #30 tablet 11/15/24 03/30/25 Rx Docusate [Colace] 100 mg PO BID PRN 02/11/25 03/30/25 History Famotidine [Pepcid] 40 mg PO DAILY 02/11/25 03/30/25 History Folic Acid 0.8 mg PO DAILY 02/11/25 03/30/25 History Metoprolol Succinate (ER) [Toprol 50 mg PO DAILY 02/11/25 03/30/25 History XL] Montelukast Sodium 10 mg PO HS 02/11/25 03/30/25 History polyethylene glycoL 3350 [Miralax] 17 gm PO DAILY packet 02/19/25 03/30/25 Rx Baclofen 10 mg PO BID PRN 03/30/25 03/30/25 History Cephalexin [Keflex] 500 mg PO Q8HR 03/30/25 03/30/25 History Ezetimibe [Zetia] 10 mg PO DAILY 03/30/25 03/30/25 History Pregabalin [Lyrica] 150 mg PO BID 03/30/25 03/30/25 History oxyCODONE HCL [oxyCODONE HCL (IR)] 10 mg PO Q4H 03/30/25 03/30/25 History Allergies Allergy/AdvReac Type Severity Reaction Status Date / Time No Known Allergies Allergy Verified 03/30/25 16:44 Physical Exam Vitals: Vital Signs Temp Pulse Pulse Resp BP BP Pulse Ox 03/31/25 01:47 97.9 F 68 18 113/66 97 03/30/25 19:20 97.9 F 73 17 129/72 100 03/30/25 15:36 97.5 F L 71 16 134/78 100 03/30/25 15:14 65 16 160/65 95 03/30/25 11:00 71 19 120/65 96 03/30/25 10:46 16 03/30/25 08:14 97.9 F 74 18 149/80 96 Intake and Output 03/30/25 03/30/25 03/31/25 14:59 22:59 06:59 Intake Total 500 Output Total 150 750 Balance 350 -750 Intake: Oral 500 Output: Urine 150 750 Other: Voiding Method Urinal # Voids 1 Weight 94.347 kg 94.347 kg Results CBC & Chem 7: 03/30/25 08:48 03/30/25 08:48 Labs: Abnormal Lab Results - Last 24 Hours (Table) 03/30/25 03/30/25 03/30/25 Range/Units 08:48 08:48 09:16 WBC 10.57 H (4.50-10.00) 10*3/uL RBC 3.56 L (4.40-5.60) 10*6/uL Hgb 10.6 L (13.0-17.0) g/dL Hct 32.8 L (39.6-50.0) % Monocytes # 1.13 H (0.20-1.00) 10*3/uL Immature Plt Fraction 0.9 L (1.1-6.1) % Potassium 5.3 H (3.5-5.1) mmol/L Chloride 110 H (98-107) mmol/L BUN 27 H (9-20) mg/dL Glucose 106 H (74-99) mg/dL POC Glucose (mg/dL) 117 H (70-110) mg/dL Total Protein 6.1 L (6.3-8.2) g/dL Ur Oxycodone Screen (NotDetected) 03/30/25 Range/Units 10:47 WBC (4.50-10.00) 10*3/uL RBC (4.40-5.60) 10*6/uL Hgb (13.0-17.0) g/dL Hct (39.6-50.0) % Monocytes # (0.20-1.00) 10*3/uL Immature Plt Fraction (1.1-6.1) % Potassium (3.5-5.1) mmol/L Chloride (98-107) mmol/L BUN (9-20) mg/dL Glucose (74-99) mg/dL POC Glucose (mg/dL) (70-110) mg/dL Total Protein (6.3-8.2) g/dL Ur Oxycodone Screen Detected H (NotDetected) Thrombosis Risk Factor Assmnt - Choose All That Apply Any of the Below Risk Factors Present?: Yes Each Factor Represents 1 point: Medical pt on bed rest, Obesity (BMI >25), Swollen legs (current) Other Risk Factors: Yes Each Risk Factor Represents 2 Points: Age 61-74 years Other congenital or acquired thrombophilia - If yes, enter type in comment: Yes Thrombosis Risk Factor Assessment Total Risk Factor Score: 5 Thrombosis Risk Factor Assessment Level: High Risk
[2025-04-01] MEDS: ACETAMINOPHEN TAB 325 MG TAB PO PRN (02:11)
[2025-04-01 11:13] LABS: Basophils # (A) 0.03 10*3/uL (0.00-0.10); Basophils % (A) 0.2 %; Eosinophils # (A) 0.19 10*3/uL (0.04-0.35); Eosinophils % (A) 1.6 %; HCT 28.1 % (39.6-50.0); HGB 9.2 g/dL (13.0-17.0); Lymphocytes # (A) 1.01 10*3/uL (0.90-5.00); Lymphocytes % (A) 8.3 %; MCH 29.7 pg (27.0-32.0); MCHC 32.7 g/dL (32.0-37.0); MCV 90.6 fL (80.0-97.0); Monocytes # (A) 0.70 10*3/uL (0.20-1.00); Monocytes % (A) 5.8 %; Neutrophils # (A) 10.15 10*3/uL (1.80-7.70); Neutrophils % (A) 83.7 %; Platelet Count 168 10*3/uL (140-440); RBC 3.10 10*6/uL (4.40-5.60); RDW 15.9 % (11.5-14.5); WBC 12.13 10*3/uL (4.50-10.00)
[2025-04-01 11:38] LABS: ALT 10 U/L (4-49); AST 21 U/L (17-59); African American GFR (CKD) 62 (>60 ml/min/1.73 sqM); Albumin 3.1 g/dL (3.5-5.0); Albumin/Globulin Ratio 1.4; Alkaline Phosphatase 51 U/L (38-126); Anion Gap 8 mmol/L; Blood Urea Nitrogen 26 mg/dL (9-20); Calcium 8.7 mg/dL (8.4-10.2); Carbon Dioxide 22 mmol/L (22-30); Chloride 99 mmol/L (98-107); Globulin 2.2 g/dL; Glucose 97 mg/dL (74-99); Non-African American GFR(CKD) 53 (>60 ml/min/1.73 sqM); Potassium 3.9 mmol/L (3.5-5.1); Sodium 129 mmol/L (137-145); Total Protein 5.3 g/dL (6.3-8.2)
--- NOTE | 2025-04-01 13:14 | P.PN ---
Subjective Progress Note Date: 04/01/25 HISTORY OF PRESENT ILLNESS: This is a 74-year-old male one of my patient with a previous medical history significant for hypertension and hypertensive cardiovascular disease, hyperlipidemia, obesity with obstructive sleep apnea, history of chronic alcohol use and dependence with the peripheral neuropathy, significant spondylosis of the lumbar spine with spinal stenosis and significant chronic low back pain, patient was recently hospitalized at [facility] in February 2025 after he was brought into the emergency department because the patient is not able to care for himself at [facility], and he was requiring some more care at this point in time, apparently I saw him in the office last week and the patient has utilized all his Percocet because he stated that he is in a lot of pain at this time, he does not follow recommendation on the prescription bottle, I switch the patient to oxycodone 10 mg every 4 hours as needed, the patient apparently rolled out of the bed and landed on the floor, he ended up coming to the ER for evaluation he has a battery of testing that was negative, and the patient was supposed to be released back to [facility] however the patient refused to go because he is not able to care for himself at this time, he was smelling urine, and he is not able to have the care that he needed at [facility], and because of safety issue he was admitted to the hospital with social organization professor consultation for definite long-term plan at this point in time, patient will require to go to a extended care facility at this point in time as the patient is not able to live in an assisted living facility. 04/01: Patient is sitting up in bed appears to be generally weak today, he is complaining of pain in the left leg, he is complaining of pain in the left knee as well, he is not moving around much, physical therapy is to evaluate the patient, social organization professor is to follow-up with the patient, patient will require subacute rehabilitation at this point in time as the patient is not able to care for himself and he is at increased risk of falling at the assisted living facility. REVIEW OF SYSTEMS: Constitutional: No documented fever, no chills, no night sweats. No weight change. positive for weakness , reports fatigue reports no lethargy. negative for daytime sleepiness. HEENT: No headache. No blurred vision or double vision, no loss of vision. No loss of Hearing, no ringing in the ears, no dizziness. No nasal drainage or congestion. No epistaxis. No sore throat. Lungs: No shortness of breath, occasional cough, minimal sputum production. No wheezing. Reports dyspnea with activity. Cardiovascular: No chest pain, mild lower extremity edema. No palpitations. No paroxysmal nocturnal dyspnea. No orthopnea. No lightheadedness or dizziness. No syncopal episodes.Positive for nocturia. Abdominal: No abdominal pain. No nausea, vomiting. no diarrhea. Occasional constipation. No bloody or tarry stools . No loss of appetite. Genitourinary: No dysuria, increased frequency, urgency. No urinary retention. Musculoskeletal: positive for neck pain, positive for chronic low back pain, positive for pain in both lower extremities with significant neuropathy, positive for gait dysfunction, positive for lower extremity weakness right more than left. Integumentary: venous stasis and stasis dermatitis and venous has resolved. Neurologic: No aphasia. No facial droop. Positive for memory loss. No head injury. No headache, positive for paresthesia in both lower extremities, Psychiatric: Patient does appear to be somewhat depressed, appears to be a bit anxious, no suicidal thoughts or ideation. Endocrine: No abnormal blood sugars, increased weight. PHYSICAL EXAMINATION: General: This is a 74-year-old male laying down in bed in no apparent distress. HEENT: Head is atraumatic, normocephalic, pupils were equal round reactive to light and recommendation, extraocular muscle movement were intact, sclera nonicteric, conjunctivae were pale, mucous membranes of the mouth are somewhat dry. Neck: Supple, no JVP, normal carotid upstroke bilaterally, no lymphadenopathy. Chest: Decreased breath sounds at the bases, few rhonchi, no expiratory wheezes, no chest wall tenderness, no intercostal retractions. Heart: First heart sound is normal, second heart sound is normal there is systolic ejection murmur 2/6 located in the left sternal border. Abdomen: Soft, nontender, nondistended, positive bowel sounds. Extremities: There is chronic skin changes dorsalis pedis +1 bilaterally with significant neuropathy Neurologic examination: Patient is awake alert and oriented x 2, cranial nerves III to XII appear to be grossly intact, muscle power 4 out of 5 in upper extremities and 2 out of 5 in the right lower extremity and 2 out of 5 in the left lower extremity ASSESSMENT AND PLAN: 1. Medical debility with recurrent falls and inability to ambulate with significant weakness of both lower extremities right more than left. Patient did have knee x-ray that did not show evidence of acute abnormalities except for moderate tricompartmental osteoarthritis mild left hip osteoarthritis, and cervical spine CT scan showed evidence of degenerative disc disease that is moderate without evidence of acute fracture, his CT scan of the brain did show evidence of white matter changes with atrophy otherwise no acute infarct or bleed. I will consult social organization professor for definite plan for subacute rehabilitat ion as the patient is not able to care for himself at assisted living, physical therapy evaluation for rehab notes, patient will likely require to go to [facility] at this time. 2. Hypertension and hypertensive cardiovascular disease. Continue patient on metoprolol ER 50 mg once every day, monitor the patient blood pressure very closely. 3. Mixed hyperlipidemia. Continue atorvastatin 40 mg daily. Keep LDL 55-70. 4. Mild cognitive impairment Likely due to vascular dementia. Patient is not taking any medication at this point in time. 5. History of chronic alcohol use and dependence. patient has quit 6. 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 we will continue with oxycodone 10 mg orally every 4 hours as needed monitor the patient symptoms very closely, physical therapy evaluation. 7. Bilateral lower extremity neuropathy continue patient on Lyrica 150 mg orally 2 times every day. 8. DVT prophylaxis. Continue Lovenox 40 mg subcutaneously every 24 hours per 9. GI prophylaxis. Continue Protonix 40 mg orally once every day. 10. Awaiting final disposition to go to subacute rehabilitation. Objective - Vital Signs Vital signs: Vital Signs Temp 97.9 F 04/01/25 07:52 Pulse 70 04/01/25 07:52 Resp 18 04/01/25 07:52 BP 86/44 04/01/25 07:52 Pulse Ox 98 04/01/25 07:52 FiO2 Intake & Output 03/31/25 04/01/25 04/01/25 18:59 06:59 18:59 Output Total 900 400 Balance -900 -400 Output: Urine 900 400 Other: Voiding Method Urinal - Labs CBC & Chem 7: 04/01/25 10:29 04/01/25 10:29
[2025-04-01] MEDS: SODIUM CHLORIDE 0.9% 1,000 ML IV SCH (13:58)
--- NOTE | 2025-04-01 17:24 | CDI ---
Documentation Clarification Form Date: 04/01/2025 04:52:38 PM From: Patricia Loyola Phone: [phone] Admit Date: 03/30/2025 02:51:00 PM Patient Name: Milton Navarro Visit Number: [id number] Discharge Date: ATTENTION: The Clinical Documentation Specialists (CDI) and [facility] Coding Staff appreciate your assistance in clarifying documentation. Please respond to the clarification below the line at the bottom and electronically sign. The CDI & [facility] Coding staff will review the response and follow-up if needed. Please note: Queries are made part of the Legal Health Record. If you have any questions, please contact the author of this message via ITS. Doctor. Johnny Lane Your patient has the documented symptom of weakness, medical debility with recurrent falls in the Internal Medicine H/P and subsequent progress notes. Additional clarification regarding the etiology/cause of this symptom is requested. History/Risk Factors: Hypertension, Osteoarthritis (OA), peripheral neuropathy, spondylosis of the lumbar spine with spinal stenosis, Clinical Indicators [id number] chronic low back pain, fell out of bed. He is not able to care for himself. Hi has generalized weakness. He was negative for fractures. 03/30 VS (08:14 149/89 74 18 96% RA 03/30 Labs: WBC 10.57, K+ 5.3 CL 110 BUN 27 CR 0.83 Treatment: Consult social media campaign manager for subacute rehabilitation Physical therapy evaluation Lyrica 150 MG PO BID 03/30-04/01 Lioresal 10MG PO BID RRN 03/30-721 Is there a corresponding diagnosis/etiology for this symptom of weakness debility? [ ] Age related physical debility [ ] Age related cognitive decline [ ] Unable to determine [x ] Other, please specify Severe osteoarthritis, Spondylosis of the cervical and lumbar spine, Vascular Dementia (Template Last Reviewed: October 2020) MTDD
[2025-04-02 07:56] VITALS: RESP 19
--- NOTE | 2025-04-02 10:51 | P.DS ---
Providers Date of admission: 03/30/25 14:51 Expected date of discharge: 04/02/25 Attending physician: Johnny Lane Primary care physician: Johnny Lane Hospital Course: HISTORY OF PRESENT ILLNESS: This is a 74-year-old male one of my patient with a previous medical history significant for hypertension and hypertensive cardiovascular disease, hyperlipidemia, obesity with obstructive sleep apnea, history of chronic alcohol use and dependence with the peripheral neuropathy, significant spondylosis of the lumbar spine with spinal stenosis and significant chronic low back pain, patient was recently hospitalized at [facility] in February 2025 after he was brought into the emergency department because the patient is not able to care for himself at [facility], and he was requiring some more care at this point in time, apparently I saw him in the office last week and the patient has utilized all his Percocet because he stated that he is in a lot of pain at this time, he does not follow recommendation on the prescription bottle, I switch the patient to oxycodone 10 mg every 4 hours as needed, the patient apparently rolled out of the bed and landed on the floor, he ended up coming to the ER for evaluation he has a battery of testing that was negative, and the patient was supposed to be released back to [facility] however the patient refused to go because he is not able to care for himself at this time, he was smelling urine, and he is not able to have the care that he needed at [facility], and because of safety issue he was admitted to the hospital with social worker aide consultation for definite long-term plan at this point in time, patient will require to go to a extended care facility at this point in time as the patient is not able to live in an assisted living facility. 04/01: Patient is sitting up in bed appears to be generally weak today, he is complaining of pain in the left leg, he is complaining of pain in the left knee as well, he is not moving around much, physical therapy is to evaluate the patient, social worker aide is to follow-up with the patient, patient will require subacute rehabilitation at this point in time as the patient is not able to care for himself and he is at increased risk of falling at the assisted living facility. 04/02: Patient is out of Medicare days at this point in time, he cannot goes to the [facility] anymore, therefore the patient at this point in time after discussion with the shoe caser that he has to go home with home health care patient is in agreement for this, he is not able and not willing to live with his daughter, is not and cannot afford to pay for the rehab at this point in time, therefore we will continue with [facility] with home health care as planned before, he would need physical therapy at home as well Discharge diagnoses: 1. Medical debility with recurrent falls and inability to ambulate with significant weakness of both lower extremities right more than left. 2. Hypertension and hypertensive cardiovascular disease. 3. Mixed hyperlipidemia. 4. Mild cognitive impairment due to vascular dementia 5. History of chronic alcohol use and dependence. patient has quit 6. 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 7. Bilateral lower extremity neuropathy 8. Gait dysfunction Patient Condition at Discharge: Stable Plan - Discharge Summary New Discharge Prescriptions: No Action Montelukast Sodium 10 mg PO HS Famotidine [Pepcid] 40 mg PO DAILY Docusate [Colace] 100 mg PO BID PRN PRN Reason: Constipation oxyCODONE HCL [oxyCODONE HCL (IR)] 10 mg PO Q4H Baclofen 10 mg PO BID PRN PRN Reason: Muscle Spasm Ezetimibe [Zetia] 10 mg PO DAILY Lactulose [Cephulac] 20 gm PO BID ml Atorvastatin [Lipitor] 40 mg PO HS #30 tablet Metoprolol Succinate (ER) [Toprol XL] 50 mg PO DAILY Folic Acid 0.8 mg PO DAILY polyethylene glycoL 3350 [Miralax] 17 gm PO DAILY packet Pregabalin [Lyrica] 150 mg PO BID Cephalexin [Keflex] 500 mg PO Q8HR Discharge Medication List Lactulose [Cephulac] 20 gm PO BID ml 11/11/24 [Rx] Atorvastatin [Lipitor] 40 mg PO HS #30 tablet 11/15/24 [Rx] Docusate [Colace] 100 mg PO BID PRN 02/11/25 [History] Famotidine [Pepcid] 40 mg PO DAILY 02/11/25 [History] Folic Acid 0.8 mg PO DAILY 02/11/25 [History] Metoprolol Succinate (ER) [Toprol XL] 50 mg PO DAILY 02/11/25 [History] Montelukast Sodium 10 mg PO HS 02/11/25 [History] polyethylene glycoL 3350 [Miralax] 17 gm PO DAILY packet 02/19/25 [Rx] Baclofen 10 mg PO BID PRN 03/30/25 [History] Cephalexin [Keflex] 500 mg PO Q8HR 03/30/25 [History] Ezetimibe [Zetia] 10 mg PO DAILY 03/30/25 [History] Pregabalin [Lyrica] 150 mg PO BID 03/30/25 [History] oxyCODONE HCL [oxyCODONE HCL (IR)] 10 mg PO Q4H 03/30/25 [History] Follow up Appointment(s)/Referral(s): Johnny Lane MD [Primary Care Provider] - 1-2 days Activity/Diet/Wound Care/Special Instructions: Please return to the Emergency Department if symptoms worsen or any other concerns.
[2025-04-02 14:52] VITALS: BP 92/51; PULSE 75; TEMP 99.6
[2025-04-02] MEDS: SIMETHICONE 80 MG CHEWABLE PO STA (16:06)
== END 2025-04-02 17:45 | disposition home health service (06) | DRG 552 ==
LOC: EC 08:11 → 4SSUR 14:51
PROVIDERS: ADMIT Internal Medicine; ATTEND Internal Medicine
DX: M47.816 Spondylosis without myelopathy or radiculopathy, lumbar region (principal); E03.9 Hypothyroidism, unspecified; F01.50 Vascular dementia, unspecified severity, without behavioral disturbance, psychotic disturbance, mood disturbance, and anxiety; G25.81 Restless legs syndrome; I11.9 Hypertensive heart disease without heart failure; E66.9 Obesity, unspecified; M47.812 Spondylosis without myelopathy or radiculopathy, cervical region; G89.4 Chronic pain syndrome; M16.12 Unilateral primary osteoarthritis, left hip; M48.061 Spinal stenosis, lumbar region without neurogenic claudication; M50.30 Other cervical disc degeneration, unspecified cervical region; M17.12 Unilateral primary osteoarthritis, left knee; Z68.28 Body mass index [BMI] 28.0-28.9, adult; G57.93 Unspecified mononeuropathy of bilateral lower limbs; I87.8 Other specified disorders of veins; I87.2 Venous insufficiency (chronic) (peripheral); E78.2 Mixed hyperlipidemia; G47.33 Obstructive sleep apnea (adult) (pediatric); I89.0 Lymphedema, not elsewhere classified; R29.6 Repeated falls; N40.0 Benign prostatic hyperplasia without lower urinary tract symptoms; Z79.891 Long term (current) use of opiate analgesic; Z79.899 Other long term (current) drug therapy; Z86.14 Personal history of Methicillin resistant Staphylococcus aureus infection; W06.XXXA Fall from bed, initial encounter
CPT/HCPCS: 36415; 70450; 72125; 80053; 80306; 80320; 81003; 82550; 83605; 83735; 84484; 85025; 85610; 85730; 93005; 99285

== ENCOUNTER 2025-04-06 13:08 | Emergency (ER) | payer MEDICARE ==
[2025-04-06 13:17] VITALS: RESP 18; TEMP 98
--- NOTE | 2025-04-06 13:24 | ED ---
General Adult HPI - General Chief complaint: Fall Stated complaint: Fall, neck pain Time Seen by Provider: 04/06/25 13:10 Source: patient, EMS, RN notes reviewed Mode of arrival: EMS Limitations: no limitations - History of Present Illness Initial comments: Patient is a 74-year-old male present to the emergency department from [facility] for fall out of bed. Patient does not recall the fall as he was sleeping at the time. Patient believes he was laying on the floor through most of the night, probably 12 hours. Patient does not ambulate secondary to chronic back problems and chronic leg weakness, no change. Patient does have some neck discomfort. Otherwise no new complaints. Patient has chronic back pain that is unchanged. - Related Data Home Medications Medication Instructions Recorded Confirmed Docusate [Colace] 100 mg PO BID PRN 02/11/25 03/30/25 Famotidine [Pepcid] 40 mg PO DAILY 02/11/25 03/30/25 Folic Acid 0.8 mg PO DAILY 02/11/25 03/30/25 Metoprolol Succinate (ER) [Toprol 50 mg PO DAILY 02/11/25 03/30/25 XL] Montelukast Sodium 10 mg PO HS 02/11/25 03/30/25 Baclofen 10 mg PO BID PRN 03/30/25 03/30/25 Cephalexin [Keflex] 500 mg PO Q8HR 03/30/25 03/30/25 Ezetimibe [Zetia] 10 mg PO DAILY 03/30/25 03/30/25 Pregabalin [Lyrica] 150 mg PO BID 03/30/25 03/30/25 oxyCODONE HCL [oxyCODONE HCL (IR)] 10 mg PO Q4H 03/30/25 03/30/25 Previous Rx's Medication Instructions Recorded Lactulose [Cephulac] 20 gm PO BID ml 11/11/24 Atorvastatin [Lipitor] 40 mg PO HS #30 tablet 11/15/24 polyethylene glycoL 3350 [Miralax] 17 gm PO DAILY packet 02/19/25 Allergies Allergy/AdvReac Type Severity Reaction Status Date / Time No Known Allergies Allergy Verified 04/06/25 13:17 Review of Systems ROS Statement: Those systems with pertinent positive or pertinent negative responses have been documented in the HPI. ROS Other: All systems not noted in ROS Statement are negative. Constitutional: Denies: fever Eyes: Denies: eye pain ENT: Denies: ear pain Respiratory: Denies: dyspnea Cardiovascular: Denies: chest pain Gastrointestinal: Denies: abdominal pain Musculoskeletal: Reports: as per HPI Past Medical History Past Medical History: Hypertension, Osteoarthritis (OA) Additional Past Medical History / Comment(s): ETOH abuse, chronic back pain, BLE neuropathy, lymphedema, multiple falls, cellulitis History of Any Multi-Drug Resistant Organisms: MRSA Date of last positivie culture/infection: 11/05/24 MDRO Source:: RT LEG, RT ankle Past Surgical History: Back Surgery, Orthopedic Surgery, Tonsillectomy Additional Past Surgical History / Comment(s): 3 back laminectomies, hand surgery s/p trauma to reattatch tendons Past Anesthesia/Blood Transfusion Reactions: No Reported Reaction Past Psychological History: No Psychological Hx Reported Smoking Status: Never smoker Past Alcohol Use History: None Reported Past Drug Use History: None Reported - Past Family History Father Family Medical History: Hypertension Mother Family Medical History: Cancer Additional Family Medical History / Comment(s): Lung cancer Brother(s) Family Medical History: No Reported History Sister(s) Family Medical History: Hypertension Daughter(s) Family Medical History: No Reported History General Exam Limitations: no limitations General appearance: alert, in no apparent distress Head exam: Present: atraumatic Eye exam: Present: normal appearance, PERRL, EOMI ENT exam: Present: normal oropharynx Neck exam: Present: tenderness (Diffuse. C-collar is in place.) Respiratory exam: Present: normal lung sounds bilaterally Cardiovascular Exam: Present: regular rate, normal rhythm GI/Abdominal exam: Present: soft. Absent: tenderness Extremities exam: Present: other (Legs are contracted) Back exam: Present: normal inspection. Absent: tenderness, vertebral tenderness Neurological exam: Present: alert, oriented X3, CN II-XII intact Expanded Speech: Present: fluid speech Motor strength exam: RUE: 5, LUE: 5, RLE: 4, LLE: 4 Eye Response: (4) open spontaneously Motor Response: (6) obeys commands Verbal Response: (5) oriented Psychiatric exam: Present: normal affect, normal mood Skin exam: Present: normal color Course Vital Signs 04/06/25 13:09 Temperature 98.0 F Pulse Rate 82 Respiratory 18 Rate Blood Pressure 145/71 O2 Sat by Pulse 96 Oximetry EKG Findings - EKG Results: EKG: interpreted by ERMD (Narrow complex rhythm, regular with a rate of 66. Normal axis. Normal QRS. No acute ST change.) Medical Decision Making - Medical Decision Making Was pt. sent in by a medical professional or institution (, [employer], RECREATIONAL FACILITIES MOTEL MANAGER, urgent care, hospital, or group home...) When possible be specific @ -Patient from nursing facility Did you speak to anyone other than the patient for history (EMS, parent, family, police, friend...)? What history was obtained from this source @ -EMS provides history of unnoticed fall and patient lying on the ground Did you review nursing and triage notes (agree or disagree)? Why? @ -I reviewed and agree with nursing and triage notes Were old charts reviewed (outside hosp., previous admission, EMS record, old EKG, old radiological studies, urgent care reports/EKG's, group home records)? Report findings @ -No old charts were reviewed Differential Diagnosis (chest pain, altered mental status, abdominal pain women, abdominal pain men, vaginal bleeding, weakness, fever, dyspnea, syncope, headache, dizziness, GI bleed, back pain, seizure, CVA, palpatations, mental health, musculoskeletal)? @ -Differential Weakness: Hypoglycemia, shock, sepsis, hyponatremia, anemia, infection, NM, ETOH, adverse medicine reaction, overdose, stroke, this is not meant to be an all-inclusive list. EKG interpreted by me (3pts min.). @ -As above X-rays interpreted by me (1pt min.). @ -Chest x-ray shows no acute process CT interpreted by me (1pt min.). @ -CT brain and cervical spine without acute abnormality U/S interpreted by me (1pt. min.). @ -None done What testing was considered but not performed or refused? (CT, X-rays, U/S, labs)? Why? @ -None What meds were considered but not given or refused? Why? @ -None Did you discuss the management of the patient with other professionals (professionals i.e. NICHOLE Lange, RECREATIONAL FACILITIES MOTEL MANAGER, lab, RT, psych nurse, nursing home social worker, egg breaker, teacher, ordnance officer, supervisor case loading)? Give summary @ -No Was smoking cessation discussed for >3mins.? @ -No Was critical care preformed (if so, how long)? @ -No Were there social determinants of health that impacted care today? How? (Homelessness, low income, unemployed, alcoholism, drug addiction, transportation, low edu. Level, literacy, decrease access to med. care, longterm, rehab)? @ -No Was there de-escalation of care discussed even if they declined (Discuss DNR or withdrawal of care, Hospice)? DNR status @ -No What co-morbidities impacted this encounter? (DM, HTN, Smoking, COPD, CAD, Cancer, CVA, ARF, Chemo, Hep., AIDS, mental health diagnosis, sleep apnea, morbid obesity)? @ -Chronic back pain and leg weakness Was patient admitted / discharged? Hospital course, mention meds given and route, prescriptions, significant lab abnormalities, going to OR and other pertinent info. @ -Patient presents with unwitnessed fall. Evaluation unremarkable. Patient reevaluated and does not have further complaints. Patient will be discharged back to nursing facility. Patient updated. Undiagnosed new problem with uncertain prognosis? @ -No Drug Therapy requiring intensive monitoring for toxicity (Heparin, Nitro, Insulin, Cardizem)? @ -No Were any procedures done? @ -No Diagnosis/symptom? @ -Fall Acute, or Chronic, or Acute on Chronic? @ -Acute Uncomplicated (without systemic symptoms) or Complicated (systemic symptoms)? @ -Default Side effects of treatment? @ -No Exacerbation, Progression, or Severe Exacerbation? @ -No Poses a threat to life or bodily function? How? (Chest pain, USA, NM, pneumonia, PE, COPD, DKA, ARF, appy, cholecystitis, CVA, Diverticulitis, Homicidal, Suicidal, threat to staff... and all critical care pts) @ -No - Lab Data Result diagrams: 04/06/25 13:41 04/06/25 14:45 Lab Results 04/06/25 04/06/25 04/06/25 Range/Units 13:41 13:41 13:41 WBC 10.76 H (4.50-10.00) 10*3/uL RBC 3.56 L (4.40-5.60) 10*6/uL Hgb 10.4 L (13.0-17.0) g/dL Hct 31.6 L (39.6-50.0) % MCV 88.8 (80.0-97.0) fL MCH 29.2 (27.0-32.0) pg MCHC 32.9 (32.0-37.0) g/dL Plt Count 133 L (140-440) 10*3/uL MPV 12.8 H (9.5-12.2) fL Immature Gran % (Auto) 0.4 % Neutrophils % 74.0 % Lymphocytes % 14.1 % Monocytes % 9.9 % Eosinophils % 1.2 % Basophils % 0.4 % Immature Gran # 0.04 (0.00-0.04) 10*3/uL Neutrophils # 7.96 H (1.80-7.70) 10*3/uL Lymphocytes # 1.52 (0.90-5.00) 10*3/uL Monocytes # 1.07 H (0.20-1.00) 10*3/uL Eosinophils # 0.13 (0.04-0.35) 10*3/uL Basophils # 0.04 (0.00-0.10) 10*3/uL PT 10.5 (10.0-12.5) sec INR 0.9 (<1.2) APTT 23.2 (22.0-30.0) sec Sodium (137-145) mmol/L Potassium (3.5-5.1) mmol/L Chloride (98-107) mmol/L Carbon Dioxide (22-30) mmol/L Anion Gap mmol/L BUN (9-20) mg/dL Creatinine (0.66-1.25) mg/dL Est GFR (CKD-EPI)AfAm (>60 ml/min/1.73 sqM) Est GFR (CKD-EPI)NonAf (>60 ml/min/1.73 sqM) Glucose (74-99) mg/dL Plasma Lactic Acid Gerardo 0.9 (0.7-2.0) mmol/L Calcium (8.4-10.2) mg/dL Total Bilirubin (0.2-1.3) mg/dL AST (17-59) U/L ALT (4-49) U/L Alkaline Phosphatase (38-126) U/L Creatine Kinase (55-170) U/L Total Protein (6.3-8.2) g/dL Albumin (3.5-5.0) g/dL 04/06/25 Range/Units 14:45 WBC (4.50-10.00) 10*3/uL RBC (4.40-5.60) 10*6/uL Hgb (13.0-17.0) g/dL Hct (39.6-50.0) % MCV (80.0-97.0) fL MCH (27.0-32.0) pg MCHC (32.0-37.0) g/dL Plt Count (140-440) 10*3/uL MPV (9.5-12.2) fL Immature Gran % (Auto) % Neutrophils % % Lymphocytes % % Monocytes % % Eosinophils % % Basophils % % Immature Gran # (0.00-0.04) 10*3/uL Neutrophils # (1.80-7.70) 10*3/uL Lymphocytes # (0.90-5.00) 10*3/uL Monocytes # (0.20-1.00) 10*3/uL Eosinophils # (0.04-0.35) 10*3/uL Basophils # (0.00-0.10) 10*3/uL PT (10.0-12.5) sec INR (<1.2) APTT (22.0-30.0) sec Sodium 138 (137-145) mmol/L Potassium 4.9 (3.5-5.1) mmol/L Chloride 104 (98-107) mmol/L Carbon Dioxide 26 (22-30) mmol/L Anion Gap 8 mmol/L BUN 28 H (9-20) mg/dL Creatinine 0.84 (0.66-1.25) mg/dL Est GFR (CKD-EPI)AfAm >90 (>60 ml/min/1.73 sqM) Est GFR (CKD-EPI)NonAf 88 (>60 ml/min/1.73 sqM) Glucose 99 (74-99) mg/dL Plasma Lactic Acid Gerardo (0.7-2.0) mmol/L Calcium 9.1 (8.4-10.2) mg/dL Total Bilirubin 0.9 (0.2-1.3) mg/dL AST 44 (17-59) U/L ALT 15 (4-49) U/L Alkaline Phosphatase 58 (38-126) U/L Creatine Kinase 273 H (55-170) U/L Total Protein 5.9 L (6.3-8.2) g/dL Albumin 3.4 L (3.5-5.0) g/dL Disposition Clinical Impression: Fall Disposition: HOME SELF-CARE Condition: Stable Instructions (If sedation given, give patient instructions): Fall Prevention for Older Adults (ED) Additional Instructions: Please do follow-up with your primary care physician in the next day or 2 for recheck. Return for weakness, increased pain, change or worsening symptoms or other concerns. Is patient prescribed a controlled substance at d/c from ED?: No Referrals: Johnny Lane MD [Primary Care Provider] - 1-2 days Time of Disposition: 15:35
[2025-04-06 13:55] LABS: Basophils # (A) 0.04 10*3/uL (0.00-0.10); Basophils % (A) 0.4 %; Eosinophils # (A) 0.13 10*3/uL (0.04-0.35); Eosinophils % (A) 1.2 %; HCT 31.6 % (39.6-50.0); HGB 10.4 g/dL (13.0-17.0); Lymphocytes # (A) 1.52 10*3/uL (0.90-5.00); Lymphocytes % (A) 14.1 %; MCH 29.2 pg (27.0-32.0); MCHC 32.9 g/dL (32.0-37.0); MCV 88.8 fL (80.0-97.0); Monocytes # (A) 1.07 10*3/uL (0.20-1.00); Monocytes % (A) 9.9 %; Neutrophils # (A) 7.96 10*3/uL (1.80-7.70); Neutrophils % (A) 74.0 %; Platelet Count 133 10*3/uL (140-440); RBC 3.56 10*6/uL (4.40-5.60); RDW 15.2 % (11.5-14.5); WBC 10.76 10*3/uL (4.50-10.00)
--- NOTE | 2025-04-06 14:03 | CT ---
EXAMINATION TYPE: CT brain cspine wo con DATE OF EXAM: 04/06/2025 COMPARISON: 03/30/2025 CLINICAL INDICATION: Male, 74 years old with history of fall; [facility], FALL TECHNIQUE: CT scan of the head and cervical spine are performed without contrast. CT DLP: 1259.[address] CTDI: mGy Automated exposure control for dose reduction was used. FINDINGS: There is no acute intracranial hemorrhage, mass effect, or midline shift identified. The ventricles and sulci are within normal limits in size. The globes are intact and the visualized sinuses are gregory ar. Cervical spine is visualized in its entirety from C1 through upper thoracic levels and demonstrates s atisfactory alignment without evidence of acute fracture or dislocation. Prevertebral soft tissue ap pears within normal limits. The C1-C2 articulation is unremarkable. IMPRESSION: There is no acute fracture or dislocation evident in the cervical spine. 2. No acute intracranial hemorrhage, mass effect, or midline shift is seen. [facility], , 04/06/2025 2:01 PM
[2025-04-06 14:22] LABS: INR 0.9 (<1.2); Partial Thromboplastin Time 23.2 sec (22.0-30.0); Prothrombin Time 10.5 sec (10.0-12.5)
--- NOTE | 2025-04-06 14:38 | XR ---
EXAMINATION TYPE: XR chest 2V DATE OF EXAM: 04/06/2025 2:32 PM COMPARISON: Chest radiograph 12/24/2024. CLINICAL INDICATION: Male, 74 years old with history of Weakness; [facility] TECHNIQUE: XR chest 2V Frontal and lateral views of the chest. FINDINGS: Lungs/Pleura: There is no evidence of pleural effusion, focal consolidation, or pneumothorax. Pulmonary vascularity: Unremarkable. Heart/mediastinum: Cardiomegaly. Musculoskeletal: No acute osseous pathology. Other findings: None IMPRESSION: No acute cardiopulmonary disease/process. [facility], , 04/06/2025 2:36 PM
[2025-04-06] MEDS: ORPHENADRINE 30 MG/ML 2 ML VIAL IVP STA (14:53)
[2025-04-06 15:16] LABS: ALT 15 U/L (4-49); African American GFR (CKD) >90 (>60 ml/min/1.73 sqM); Albumin 3.4 g/dL (3.5-5.0); Anion Gap 8 mmol/L; Blood Urea Nitrogen 28 mg/dL (9-20); Calcium 9.1 mg/dL (8.4-10.2); Carbon Dioxide 26 mmol/L (22-30); Chloride 104 mmol/L (98-107); Creatine Kinase 273 U/L (55-170); Glucose 99 mg/dL (74-99); Non-African American GFR(CKD) 88 (>60 ml/min/1.73 sqM); Sodium 138 mmol/L (137-145); Total Protein 5.9 g/dL (6.3-8.2)
[2025-04-06 15:21] LABS: AST 44 U/L (17-59); Potassium 4.9 mmol/L (3.5-5.1)
[2025-04-06 15:22] LABS: Alkaline Phosphatase 58 U/L (38-126)
[2025-04-06 16:25] VITALS: BP 131/71; PULSE 75
== END 2025-04-06 16:52 | disposition home or self-care (01) ==
LOC: EC 13:08
DX: M54.2 Cervicalgia (principal); M54.9 Dorsalgia, unspecified; G89.29 Other chronic pain; R53.1 Weakness; W06.XXXA Fall from bed, initial encounter
CPT/HCPCS: 36415; 93005; 80053; 82550; 83605; 85025; 85610; 85730; 71046; 72125; 70450; 99284; 96374; J2360

== ENCOUNTER 2025-04-08 20:08 | Emergency (ER) | payer MEDICARE ==
[2025-04-08] MEDS: oxyCODONE-APAP 7.5-325MG 1 EACH TAB PO STA (21:52)
[2025-04-08 21:57] LABS: Basophils # (A) 0.04 10*3/uL (0.00-0.10); Basophils % (A) 0.5 %; Eosinophils # (A) 0.17 10*3/uL (0.04-0.35); Eosinophils % (A) 1.9 %; HCT 29.3 % (39.6-50.0); HGB 9.7 g/dL (13.0-17.0); Lymphocytes # (A) 1.56 10*3/uL (0.90-5.00); Lymphocytes % (A) 17.6 %; MCH 29.3 pg (27.0-32.0); MCHC 33.1 g/dL (32.0-37.0); MCV 88.5 fL (80.0-97.0); Monocytes # (A) 0.85 10*3/uL (0.20-1.00); Monocytes % (A) 9.6 %; Neutrophils # (A) 6.19 10*3/uL (1.80-7.70); Neutrophils % (A) 69.7 %; Platelet Count 212 10*3/uL (140-440); RBC 3.31 10*6/uL (4.40-5.60); RDW 15.3 % (11.5-14.5); WBC 8.87 10*3/uL (4.50-10.00)
[2025-04-08 22:00] LABS: Bilirubin,Urine Negative (Negative); Blood,Urine Negative (Negative); Color,Urine Light Yellow; Glucose,Urine (UA) Negative (Negative); Ketones,Urine Negative (Negative); Leukocyte Esterase,Urine Negative (Negative); Nitrite,Urine Negative (Negative); PH, Urine 6.5 (5.0-8.0); Protein,Urine Negative (Negative); Specific Gravity,Urine 1.009 (1.001-1.035); Urobilinogen,Urine 4.0 mg/dL (<2.0)
[2025-04-08 22:03] LABS: ALT 14 U/L (4-49); AST 38 U/L (17-59); African American GFR (CKD) >90 (>60 ml/min/1.73 sqM); Albumin 3.2 g/dL (3.5-5.0); Alkaline Phosphatase 38 U/L (38-126); Anion Gap 8 mmol/L; Blood Urea Nitrogen 19 mg/dL (9-20); Calcium 8.4 mg/dL (8.4-10.2); Carbon Dioxide 27 mmol/L (22-30); Chloride 99 mmol/L (98-107); Glucose 99 mg/dL (74-99); Non-African American GFR(CKD) 89 (>60 ml/min/1.73 sqM); Sodium 134 mmol/L (137-145); Total Protein 5.9 g/dL (6.3-8.2)
[2025-04-08 22:25] LABS: Potassium 5.6 mmol/L (3.5-5.1)
--- NOTE | 2025-04-08 22:35 | ED ---
General Adult HPI - General Chief complaint: Fall Stated complaint: Fall Time Seen by Provider: 04/08/25 20:16 Source: patient Mode of arrival: EMS Limitations: no limitations - History of Present Illness Initial comments: This patient is a 74-year-old man who presents with complaint of back and neck pain. He does have chronic pain in these locations. He states that he also had slid down and fallen when attempting to transfer. The patient states that that made the pains flare worse than previous. The patient states that he does take oxycodone at home but has run out of this medication. The patient states that he is prescribed medication to take 1 tablet every 4 hours but he notes that sometimes when the pain flares he takes 2 every 6 hours and as result ran out early. Patient states that when he informed his primary physician, he was told that he could not have an early refill. Patient denies new pains. He states he is also feeling anxious and shaky. He is not having vomiting or diarrhea. -: hour(s) Location: neck, back Quality: aching Consistency: constant Improves with: medication Worsens with: none Associated Symptoms: weakness Treatments Prior to Arrival: none - Related Data Home Medications Medication Instructions Recorded Confirmed Docusate [Colace] 100 mg PO BID PRN 02/11/25 03/30/25 Famotidine [Pepcid] 40 mg PO DAILY 02/11/25 03/30/25 Folic Acid 0.8 mg PO DAILY 02/11/25 03/30/25 Metoprolol Succinate (ER) [Toprol 50 mg PO DAILY 02/11/25 03/30/25 XL] Montelukast Sodium 10 mg PO HS 02/11/25 03/30/25 Baclofen 10 mg PO BID PRN 03/30/25 03/30/25 Cephalexin [Keflex] 500 mg PO Q8HR 03/30/25 03/30/25 Ezetimibe [Zetia] 10 mg PO DAILY 03/30/25 03/30/25 Pregabalin [Lyrica] 150 mg PO BID 03/30/25 03/30/25 oxyCODONE HCL [oxyCODONE HCL (IR)] 10 mg PO Q4H 03/30/25 03/30/25 Previous Rx's Medication Instructions Recorded Lactulose [Cephulac] 20 gm PO BID ml 11/11/24 Atorvastatin [Lipitor] 40 mg PO HS #30 tablet 11/15/24 polyethylene glycoL 3350 [Miralax] 17 gm PO DAILY packet 02/19/25 oxyCODONE HCL/ACETAMINOPHEN 1 tab PO Q6H 3 Days #12 tab 04/09/25 [oxyCODONE HCL/ACETAMINOPHEN 10-300] Allergies Allergy/AdvReac Type Severity Reaction Status Date / Time No Known Allergies Allergy Verified 04/08/25 20:11 Review of Systems ROS Statement: Those systems with pertinent positive or pertinent negative responses have been documented in the HPI. ROS Other: All systems not noted in ROS Statement are negative. Constitutional: Reports: weakness. Denies: fever, chills Respiratory: Denies: cough, dyspnea Cardiovascular: Denies: chest pain, palpitations Gastrointestinal: Denies: abdominal pain, vomiting, diarrhea Genitourinary: Denies: dysuria, hematuria Musculoskeletal: Reports: as per HPI, back pain, other Skin: Denies: rash Neurological: Denies: headache, weakness Psychiatric: Reports: anxiety Past Medical History Past Medical History: Hypertension, Osteoarthritis (OA) Additional Past Medical History / Comment(s): ETOH abuse, chronic back pain, BLE neuropathy, lymphedema, multiple falls, cellulitis History of Any Multi-Drug Resistant Organisms: MRSA Date of last positivie culture/infection: 11/05/24 MDRO Source:: RT LEG, RT ankle Past Surgical History: Back Surgery, Orthopedic Surgery, Tonsillectomy Additional Past Surgical History / Comment(s): 3 back laminectomies, hand surgery s/p trauma to reattatch tendons Past Anesthesia/Blood Transfusion Reactions: No Reported Reaction Past Psychological History: No Psychological Hx Reported Smoking Status: Never smoker Past Alcohol Use History: None Reported Past Drug Use History: None Reported - Past Family History Father Family Medical History: Hypertension Mother Family Medical History: Cancer Additional Family Medical History / Comment(s): Lung cancer Brother(s) Family Medical History: No Reported History Sister(s) Family Medical History: Hypertension Daughter(s) Family Medical History: No Reported History General Exam Limitations: no limitations General appearance: alert, in no apparent distress, anxious Head exam: Present: atraumatic, normocephalic Eye exam: Present: normal appearance. Absent: scleral icterus, conjunctival injection Neck exam: Present: normal inspection, full ROM. Absent: tenderness Respiratory exam: Present: normal lung sounds bilaterally. Absent: respiratory distress, wheezes, rales, rhonchi, stridor, accessory muscle use Cardiovascular Exam: Present: regular rate, normal rhythm, normal heart sounds. Absent: systolic murmur, diastolic murmur, rubs, gallop GI/Abdominal exam: Present: soft. Absent: distended, tenderness, guarding, rebound, rigid, mass Extremities exam: Present: normal inspection, normal capillary refill. Absent: pedal edema, calf tenderness Back exam: Present: normal inspection, paraspinal tenderness, vertebral tenderness Neurological exam: Present: alert. Absent: motor sensory deficit Skin exam: Present: warm, dry, intact, normal color. Absent: rash Course Vital Signs 04/08/25 04/08/25 04/09/25 20:12 21:53 00:23 Temperature 98.0 F 97.7 F Pulse Rate 77 73 72 Respiratory 18 18 20 Rate Blood Pressure 97/76 124/57 120/62 O2 Sat by Pulse 96 98 97 Oximetry EKG Findings - EKG Results: EKG: interpreted by JAVIER, sinus rhythm (Rate 77 bpm), normal axis, normal QRS, normal ST/T Medical Decision Making - Medical Decision Making Patient is a 74-year-old man here with flareup of his chronic neck and back pain. The patient did have minor injury but no evidence of acute fracture. The patient's main problem does appear that he is out of his chronic oxycodone. 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 Milligan. The patient is giving a dose of methadone for longer acting pain relief. - Lab Data Result diagrams: 04/08/25 20:35 04/08/25 20:35 Lab Results 04/08/25 04/08/25 04/08/25 Range/Units 20:35 20:35 21:43 WBC 8.87 (4.50-10.00) 10*3/uL RBC 3.31 L (4.40-5.60) 10*6/uL Hgb 9.7 L (13.0-17.0) g/dL Hct 29.3 L (39.6-50.0) % MCV 88.5 (80.0-97.0) fL MCH 29.3 (27.0-32.0) pg MCHC 33.1 (32.0-37.0) g/dL Plt Count 212 (140-440) 10*3/uL MPV 12.4 H (9.5-12.2) fL Immature Gran % (Auto) 0.7 % Neutrophils % 69.7 % Lymphocytes % 17.6 % Monocytes % 9.6 % Eosinophils % 1.9 % Basophils % 0.5 % Immature Gran # 0.06 H (0.00-0.04) 10*3/uL Neutrophils # 6.19 (1.80-7.70) 10*3/uL Lymphocytes # 1.56 (0.90-5.00) 10*3/uL Monocytes # 0.85 (0.20-1.00) 10*3/uL Eosinophils # 0.17 (0.04-0.35) 10*3/uL Basophils # 0.04 (0.00-0.10) 10*3/uL Sodium 134 L (137-145) mmol/L Potassium 5.6 H (3.5-5.1) mmol/L Chloride 99 (98-107) mmol/L Carbon Dioxide 27 (22-30) mmol/L Anion Gap 8 mmol/L BUN 19 (9-20) mg/dL Creatinine 0.81 (0.66-1.25) mg/dL Est GFR (CKD-EPI)AfAm >90 (>60 ml/min/1.73 sqM) Est GFR (CKD-EPI)NonAf 89 (>60 ml/min/1.73 sqM) Glucose 99 (74-99) mg/dL Plasma Lactic Acid Gerardo 1.8 (0.7-2.0) mmol/L Calcium 8.4 (8.4-10.2) mg/dL Total Bilirubin 0.9 (0.2-1.3) mg/dL AST 38 (17-59) U/L ALT 14 (4-49) U/L Alkaline Phosphatase 38 (38-126) U/L Total Protein 5.9 L (6.3-8.2) g/dL Albumin 3.2 L (3.5-5.0) g/dL Urine Color Urine Appearance (Clear) Urine pH (5.0-8.0) Ur Specific [place] (1.001-1.035) Urine Protein (Negative) Urine Glucose (UA) (Negative) Urine Ketones (Negative) Urine Blood (Negative) Urine Nitrite (Negative) Urine Bilirubin (Negative) Urine Urobilinogen (<2.0) mg/dL Ur Leukocyte Esterase (Negative) 04/08/25 Range/Units 21:51 WBC (4.50-10.00) 10*3/uL RBC (4.40-5.60) 10*6/uL Hgb (13.0-17.0) g/dL Hct (39.6-50.0) % MCV (80.0-97.0) fL MCH (27.0-32.0) pg MCHC (32.0-37.0) g/dL Plt Count (140-440) 10*3/uL MPV (9.5-12.2) fL Immature Gran % (Auto) % Neutrophils % % Lymphocytes % % Monocytes % % Eosinophils % % Basophils % % Immature Gran # (0.00-0.04) 10*3/uL Neutrophils # (1.80-7.70) 10*3/uL Lymphocytes # (0.90-5.00) 10*3/uL Monocytes # (0.20-1.00) 10*3/uL Eosinophils # (0.04-0.35) 10*3/uL Basophils # (0.00-0.10) 10*3/uL Sodium (137-145) mmol/L Potassium (3.5-5.1) mmol/L Chloride (98-107) mmol/L Carbon Dioxide (22-30) mmol/L Anion Gap mmol/L BUN (9-20) mg/dL Creatinine (0.66-1.25) mg/dL Est GFR (CKD-EPI)AfAm (>60 ml/min/1.73 sqM) Est GFR (CKD-EPI)NonAf (>60 ml/min/1.73 sqM) Glucose (74-99) mg/dL Plasma Lactic Acid Gerardo (0.7-2.0) mmol/L Calcium (8.4-10.2) mg/dL Total Bilirubin (0.2-1.3) mg/dL AST (17-59) U/L ALT (4-49) U/L Alkaline Phosphatase (38-126) U/L Total Protein (6.3-8.2) g/dL Albumin (3.5-5.0) g/dL Urine Color Light Yellow Urine Appearance Clear (Clear) Urine pH 6.5 (5.0-8.0) Ur Specific [place] 1.009 (1.001-1.035) Urine Protein Negative (Negative) Urine Glucose (UA) Negative (Negative) Urine Ketones Negative (Negative) Urine Blood Negative (Negative) Urine Nitrite Negative (Negative) Urine Bilirubin Negative (Negative) Urine Urobilinogen 4.0 (<2.0) mg/dL Ur Leukocyte Esterase Negative (Negative) Disposition Clinical Impression: Fall, Chronic low back pain Disposition: HOME SELF-CARE Condition: Good Instructions (If sedation given, give patient instructions): Fall Prevention for Older Adults (ED) Prescriptions: oxyCODONE HCL/ACETAMINOPHEN [oxyCODONE HCL/ACETAMINOPHEN 10-300] 1 tab PO Q6H 3 Days #12 tab Is patient prescribed a controlled substance at d/c from ED?: Yes When asked, does pt state using other controlled substances?: No If prescribed controlled substance>3 days was MAPS reviewed?: Prescribed <3 Days If opioid is for acute pain is fill amount 7 days or less?: Yes If Rx opioid, was Start Talking consent form obtained?: Yes Referrals: Johnny Lane MD [Primary Care Provider] - 1-2 days Bryan Milligan MD [STAFF PHYSICIAN] - 1-2 days
[2025-04-09] MEDS: METHADONE 10 MG TAB PO STA (00:26)
[2025-04-09 02:03] VITALS: BP 150/70; PULSE 74; RESP 16; TEMP 99
== END 2025-04-09 02:03 | disposition home or self-care (01) ==
LOC: EC 20:08
DX: G89.29 Other chronic pain (principal); M54.50 Low back pain, unspecified; W01.0XXA Fall on same level from slipping, tripping and stumbling without subsequent striking against object, initial encounter
CPT/HCPCS: 36415; 80053; 81003; 83605; 85025; 99283